=== PATIENT | male | born 1945 | race Caucasian/White ===

== ENCOUNTER → 2020-12-16 08:40 | Outpatient (REF) | payer MEDICARE, OTHER, SELFPAY | LOC: ANHLAB 08:40 | PROVIDERS: PCP Nurse Practitioner Adult Health; Visit Provider Nurse Practitioner | DX: C44.519 Basal cell carcinoma of skin of other part of trunk (principal); D22.5 Melanocytic nevi of trunk | CPT/HCPCS: 88305; 88342 ==

== ENCOUNTER 2022-11-04 10:37 | Emergency (ER) | payer MEDICARE, OTHER, SELFPAY ==
--- NOTE | 2022-11-04 10:41 | ED.URI ---
HPI - URI/Sore Throat General Chief Complaint: Upper Respiratory Infection Stated Complaint: Cough Time Seen by Provider: 11/04/22 10:41 Source: patient Mode of arrival: ambulatory Limitations: no limitations History of Present Illness HPI Narrative: Omar is a 77-year-old male patient presenting to the clinic today with complaints of a cough x6 days. He reports he started is the pack and that did not help so now he is taking a 2nd round of Z-Bertin that he had gotten from his PCP. He also reports that he has never seen his PCP before. States he does have some mild shortness of breath as well. Cough is nonproductive. No history of COPD or asthma. Does have history of hypertension and high cholesterol. He is able to speak in full sentences and his SpO2 is 98% on room air in the clinic today. MD elicited complaint: cough and other (Shortness of breath) Related Data Home Medications Medication Instructions Recorded Confirmed atorvastatin 40 mg tablet 40 mg PO DAILY 10/13/20 11/04/22 losartan 50 mg tablet 50 mg PO DAILY 10/13/20 11/04/22 azithromycin 250 mg tablet 250 mg PO DAILY 11/04/22 11/04/22 benzonatate 200 mg capsule 200 mg PO BID PRN Cough 11/04/22 11/04/22 carvedilol 25 mg tablet 25 mg PO DAILY 11/04/22 11/04/22 Allergies Allergy/AdvReac Type Severity Reaction Status Date / Time No Known Allergies Allergy Verified 11/04/22 10:54 Review of Systems Review of Systems: Pertinent positives per HPI. Patient denies any fever, chills, rash, headache, visual changes, dizziness, chest pain, palpitations, nausea, vomiting, diarrhea, constipation, abdominal pain, or any urinary issues. [facility] Past Medical History Medical History HLD (hyperlipidemia) HTN (hypertension) Obesity OMNIKA (obstructive sleep apnea) Family History Family History Sibling Patient's brother is in good health Father Family history of cardiovascular disease Social History Social History Smoking status: Never smoker Comments At the time of my signature, I reviewed and agree with the nursing past medical, surgical, social, and family history. There is no relevant family history pertinent to the patient complaint. Exam Narrative: General: Well-developed, well nourished, in no apparent distress Head: Normocephalic, atraumatic Eyes: Pupils equally round and reactive to light bilaterally, EOM intact, sclera and conjunctive clear, no discharge, lids normal Ears: TMs intact and clear, ear canals clear, no drainage, grossly hearing normal. Nose: Nares patent, no discharge, no inflammation, no sinus tenderness. Mouth: Oral pharynx without lesions or masses, good dentition, MMM. Neck: Supple, trachea midline, no enlargement of anterior or posterior cervical nodes, no thyroid masses or goiter palpable. Cardio: Regular rate and rhythm, s1 and s2 normal, no murmur appreciated. Resp: Faint expiratory wheeze in the bilateral bases otherwise clear , no rhonchi, rales, or rubs Course Course Emergency Course: Portions of this record may have been created with voice recognition software. Level of Care: Express Care Visit Vital Signs Vital signs: Vital Signs Temperature 36.8 C 11/04/22 10:51 Pulse Rate 70 11/04/22 10:51 Respiratory Rate 18 11/04/22 10:51 Blood Pressure 123/71 11/04/22 10:51 Pulse Oximetry 98 11/04/22 10:51 Oxygen Delivery Room Air 11/04/22 10:51 Temperature 36.8 C 11/04/22 10:51 Pulse Rate 70 11/04/22 10:51 Respiratory Rate 18 11/04/22 10:51 Blood Pressure 123/71 11/04/22 10:51 Pulse Oximetry 98 11/04/22 10:51 Oxygen Delivery Room Air 11/04/22 10:51 Vital signs reviewed MDM - URI/Sore Throat MDM Narrative Medical decision making narrative: At the time of visit patient is resting com
[2022-11-04 10:51] VITALS: BP 123/71; PULSE 70; RESP 18; TEMP 36.8; O2SAT 98
== END 2022-11-04 11:17 | disposition home or self-care (01) ==
PROVIDERS: Emergency Provider Nurse Practitioner Family; PCP Family Medicine
DX: J06.9 Acute upper respiratory infection, unspecified (principal); J40 Bronchitis, not specified as acute or chronic; E78.5 Hyperlipidemia, unspecified; I10 Essential (primary) hypertension; E66.9 Obesity, unspecified; Z68.35 Body mass index [BMI] 35.0-35.9, adult
CPT/HCPCS: 99213; G0463

== ENCOUNTER 2023-08-08 08:55 | Outpatient (CLI) | payer MEDICARE, OTHER, SELFPAY ==
--- NOTE | ~2023-08-08 | XR_ITS ---
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 There are median sternotomy changes. Heart size normal. There are calcified granulomas in the left upper thorax. Moderate thoracic spondylosis. No focal air space disease, pulmonary edema, pleural effusion or suspected pneumothorax. Impression: 1: No acute cardiopulmonary disease. Reviewed, dictated and finalized at location B. Impression: 1: No acute cardiopulmonary disease.
== END 2023-08-08 08:56 | disposition home or self-care (01) ==
PROVIDERS: PCP Family Medicine; Visit Provider Physician Assistant
DX: R05.9 Cough, unspecified (principal); R06.02 Shortness of breath; Z98.890 Other specified postprocedural states
CPT/HCPCS: 71046

== ENCOUNTER 2023-09-27 07:15 | Outpatient (RCR) | payer MEDICARE, OTHER, SELFPAY | END 2023-10-29 08:50 | disposition home or self-care (01) | LOC: ANHCPREHAB 07:15 | PROVIDERS: PCP Family Medicine; Visit Provider Internal Medicine | DX: Z95.2 Presence of prosthetic heart valve (principal) | CPT/HCPCS: 93798 ==

== ENCOUNTER 2023-10-11 10:24 | Outpatient (CLI) | payer MEDICARE, OTHER, SELFPAY ==
[2023-10-11 11:15] LABS: Anion Gap 10 mmol/L (8-16); Blood Urea Nitrogen 14 mg/dL (9-20); Calcium 9.3 mg/dL (8.4-10.2); Carbon Dioxide 24 mmol/L (22-30); Chloride 106 mmol/L (98-107); Estimated Glomerular Filt Rate > 60; Glucose 121 mg/dL (65-110); Potassium 3.8 mmol/L (3.4-5.0); Sodium 140 mmol/L (137-145)
== END 2023-10-11 10:25 | disposition home or self-care (01) ==
PROVIDERS: PCP Family Medicine
DX: I48.91 Unspecified atrial fibrillation (principal)
CPT/HCPCS: 36415; 80048

== ENCOUNTER 2023-10-17 09:22 | Outpatient (CLI) | payer MEDICARE, OTHER, SELFPAY ==
[2023-10-17 09:50] LABS: Basophils Percent Auto 0.2 % (0.2-1.2); Eosinophils Absolute Auto 0.1 K/mm3 (0-0.3); Eosinophils Percent Auto 1.4 % (0-4.4); Hemoglobin 13.3 g/dL (14.0-18.0); Immature Granulocyte Absolute 0.02 K/mm3 (0.00-0.031); Immature Granulocyte Percent A 0.3 % (0-0.5); Lymphocytes Absolute Auto 1.79 K/mm3 (0.9-3.2); Lymphocytes Percent Auto 28.1 % (18.3-44.2); Mean Corpuscular HGB Conc 30.9 g/dl (32-36); Mean Corpuscular Hemoglobin 28.4 pg (26-34); Mean Corpuscular Volume 91.7 fl (80-100); Mean Platelet Volume 9.7 fl (7.4-10.4); Monocytes Absolute Auto 0.5 K/mm3 (0.1-0.6); Monocytes Percent Auto 7.1 % (2.6-8.5); Neutrophils Percent Auto 62.9 % (45.5-73.1); Platelet Count Result 174 k/mm3 (150-375); Red Blood Count 4.69 M/mm3 (4.6-6.20); Red Cell Distribution Width 13.8 % (11.5-14.5); White Blood Count 6.4 K/mm3 (4.5-10.0)
[2023-10-17 10:04] LABS: Prothrombin Time 13.7 Seconds (11.1-14.7)
== END 2023-10-17 09:23 | disposition home or self-care (01) ==
PROVIDERS: PCP Family Medicine; Visit Provider Internal Medicine Interventional Cardiology
DX: I48.91 Unspecified atrial fibrillation (principal)
CPT/HCPCS: 36415; 85025; 85610

== ENCOUNTER 2024-04-08 14:47 | Outpatient (CLI) | payer MEDICARE, OTHER, SELFPAY ==
[2024-04-08 15:14] LABS: Basophils Percent Auto 0.2 % (0.2-1.2); Eosinophils Absolute Auto 0.1 K/mm3 (0-0.3); Eosinophils Percent Auto 0.9 % (0-4.4); Hematocrit 39.4 % (42.0-52.0); Hemoglobin 13.6 g/dL (14.0-18.0); Immature Granulocyte Absolute 0.02 K/mm3 (0.00-0.031); Immature Granulocyte Percent A 0.3 % (0-0.5); Lymphocytes Absolute Auto 1.51 K/mm3 (0.9-3.2); Lymphocytes Percent Auto 25.7 % (18.3-44.2); Mean Corpuscular HGB Conc 34.5 g/dl (32-36); Mean Corpuscular Hemoglobin 32.2 pg (26-34); Mean Corpuscular Volume 93.1 fl (80-100); Mean Platelet Volume 9.7 fl (7.4-10.4); Monocytes Absolute Auto 0.4 K/mm3 (0.1-0.6); Monocytes Percent Auto 6.3 % (2.6-8.5); Neutrophils Absolute Auto 3.9 K/mm3 (1.3-6.7); Neutrophils Percent Auto 66.6 % (45.5-73.1); Platelet Count Result 160 k/mm3 (150-375); Red Blood Count 4.23 M/mm3 (4.6-6.20); Red Cell Distribution Width 13.8 % (11.5-14.5); White Blood Count 5.9 K/mm3 (4.5-10.0)
[2024-04-08 15:16] LABS: Appearance Urine Clear (Clear); Bilirubin Urine Negative (Negative); Blood Urine Negative (Negative); Color Urine Yellow (Yellow); Glucose Urine UA Negative (Negative); Ketones Urine Negative (Negative); Leukocyte Esterase Ur Negative LEU/UL (Negative); Nitrate Urine Negative (Negative); Protein Urine Negative (Negative); pH Urine 5.5 (5.0-9.0)
[2024-04-08 15:24] LABS: Add Urine Microscopic? NO
[2024-04-08 15:40] LABS: Alanine Aminotransferase 22 U/L (6-50); Albumin Level 4.3 g/dL (3.5-5.1); Alkaline Phosphatase 84 U/L (38-126); Anion Gap 8 mmol/L (4-12); Aspartate Amino Transferase 31 U/L (17-59); Bilirubin,Total 0.7 mg/dL (0.2-1.3); Blood Urea Nitrogen 21 mg/dL (9-20); Calcium 8.8 mg/dL (8.4-10.2); Carbon Dioxide 23 mmol/L (22-30); Chloride 109 mmol/L (98-107); Cholesterol 101 mg/dL (0-200); Estimated Glomerular Filt Rate > 60; Glucose 129 mg/dL (65-110); HDL Direct 35 mg/dL; Potassium 3.9 mmol/L (3.4-5.0); Sodium 140 mmol/L (137-145); Triglycerides 224 mg/dL (<150)
[2024-04-08 15:51] LABS: LDL Cholesterol Direct 58 mg/dL
[2024-04-08 16:10] LABS: Prostate Specific Antigen 1.4 ng/mL (< OR = 4.0); Thyroid Stimulating Hormone 0.812 uIU/mL (0.465-4.680)
[2024-04-08 19:34] LABS: Hemoglobin A1C 5.4 % (<5.7)
== END 2024-04-08 14:48 | disposition home or self-care (01) ==
PROVIDERS: PCP Nurse Practitioner Family; Visit Provider Nurse Practitioner Family
DX: Z12.5 Encounter for screening for malignant neoplasm of prostate (principal); G47.33 Obstructive sleep apnea (adult) (pediatric); E78.5 Hyperlipidemia, unspecified; I10 Essential (primary) hypertension; R73.09 Other abnormal glucose
CPT/HCPCS: 36415; 80048; 80061; 80076; 81003; 83036; 84153; 84443; 85025; G0103

== ENCOUNTER 2024-06-11 08:36 | Outpatient (CLI) | payer MEDICARE, OTHER, SELFPAY ==
[2024-06-11 09:37] LABS: Basophils Percent Auto 0.4 % (0.2-1.2); Eosinophils Absolute Auto 0.1 K/mm3 (0-0.3); Hematocrit 39.4 % (42.0-52.0); Hemoglobin 13.6 g/dL (14.0-18.0); Immature Granulocyte Absolute 0.02 K/mm3 (0.00-0.031); Immature Granulocyte Percent A 0.4 % (0-0.5); Lymphocytes Absolute Auto 1.68 K/mm3 (0.9-3.2); Lymphocytes Percent Auto 30.4 % (18.3-44.2); Mean Corpuscular HGB Conc 34.5 g/dl (32-36); Mean Corpuscular Hemoglobin 32.5 pg (26-34); Monocytes Absolute Auto 0.4 K/mm3 (0.1-0.6); Monocytes Percent Auto 7.8 % (2.6-8.5); Neutrophils Absolute Auto 3.3 K/mm3 (1.3-6.7); Platelet Count Result 146 k/mm3 (150-375); Red Blood Count 4.19 M/mm3 (4.6-6.20); Red Cell Distribution Width 13.5 % (11.5-14.5); White Blood Count 5.5 K/mm3 (4.5-10.0)
[2024-06-11 09:44] LABS: Iron 96 ug/dL (49-181)
[2024-06-11 09:53] LABS: Percent Iron Saturation 28 % (20-50)
== END 2024-06-11 08:37 | disposition home or self-care (01) ==
LOC: ANHLAB 08:40
PROVIDERS: PCP Nurse Practitioner Family; Visit Provider Nurse Practitioner Family
DX: D64.9 Anemia, unspecified (principal)
CPT/HCPCS: 36415; 82728; 83540; 83550; 85025

== ENCOUNTER 2024-06-13 18:36 | Emergency (ER) | payer MEDICARE, OTHER, SELFPAY ==
[2024-06-13 18:46] VITALS: BP 153/106; PULSE 62; RESP 15; TEMP 36.3; O2SAT 97
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
[2024-06-13 18:47] VITALS: BP 153/106; PULSE 62; RESP 15; TEMP 36.3; O2SAT 97
[2024-06-13] MEDS: SILVER SULFADIAZINE 1% CR 50 GM JAR (*BKC) 1 APPLIC TOPICAL (18:56)
[2024-06-13] MEDS: TETANUS/DIPHTHERIA TOXOIDS ADSORB 0.5 ML VIAL (*BKC) IM (18:59)
== END 2024-06-13 19:15 | disposition home or self-care (01) ==
PROVIDERS: Emergency Provider Nurse Practitioner Family; PCP Nurse Practitioner Family
DX: T25.211A Burn of second degree of right ankle, initial encounter (principal); X16.XXXA Contact with hot heating appliances, radiators and pipes, initial encounter; Z23 Encounter for immunization; M19.90 Unspecified osteoarthritis, unspecified site; K21.9 Gastro-esophageal reflux disease without esophagitis; E78.5 Hyperlipidemia, unspecified; I10 Essential (primary) hypertension; E66.9 Obesity, unspecified; Z68.32 Body mass index [BMI] 32.0-32.9, adult; Z79.82 Long term (current) use of aspirin
CPT/HCPCS: 90471; 90714; 99213; A9270; G0463

== ENCOUNTER 2024-09-25 16:44 | Emergency (ER) | payer MEDICARE, SELFPAY ==
[2024-09-25] VITALS (8 sets, daily range): BP systolic 103–132; BP diastolic 67–78; PULSE 81–87; RESP 16–35; TEMP 36.8–37.8; O2SAT 94–96
--- NOTE | ~2024-09-25 | CT_ITS ---
EXAMINATION: CTA brain DATE: 09/25/2024 19:36 INDICATION: Cerebral aneurysm. TECHNIQUE: Computed tomographic angiography (CTA) of the head was performed with 100 mL Omnipaque-350 intravenous contrast. Automated exposure control and iterative reconstruction technique were employe d. The dose-length product was 601.83 mGy-cm. Maximum intensity projection 3D reconstructions were c reated. Volume-rendered 3D reconstructions of the intracranial arteries were created by the technolog ist on a separate workstation. COMPARISON: Head CT 09/25/2024 FINDINGS: There are scattered areas of low attenuation in the cerebral white matter, which is within normal limits for the patient's age. There is no intracranial hemorrhage, acute infarction, or abnorm al intracranial mass lesion. The ventricles are normal in size. There is mild mucosal thickening in l eft maxillary sinus. The mastoid air cells are normal. The orbits are normal. Left vertebral artery i s dominant. There is no significant stenosis of basilar artery or the posterior cerebral arteries. Th ere is no significant stenosis of the intracranial internal carotid arteries or anterior or middle ce rebral arteries. Anterior communicating artery is normal. Left posterior communicating artery is norm al. A right posterior communicating artery is not identified. 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 IMPRESSION: 1. 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 Reviewed, dictated and finalized at location A. [employer]
--- NOTE | ~2024-09-25 | CT_ITS ---
EXAMINATION: CT brain wo con DATE: 09/25/2024 18:13 INDICATION: Altered mental status. Confusion. TECHNIQUE: Computed tomography (CT) of the head was performed without intravenous contrast. The mA wa s adjusted according to patient size. Iterative reconstruction technique was employed. The dose-lengt h product was 681.00 mGy-cm. COMPARISON: None FINDINGS: There are scattered areas of low attenuation in the cerebral white matter, which is within normal limits for the patient's age. There is no intracranial hemorrhage, acute infarction, or abnor mal intracranial mass lesion. The ventricles are normal in size. There is a 9 mm aneurysm of left mid dle cerebral artery. There was normal. There is mild mucosal thickening in the paranasal sinuses. The mastoid air cells are normal. IMPRESSION: 1. 9 mm aneurysm of left middle cerebral artery. Head CTA is recommended. Reviewed, dictated and finalized at location A. 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
--- NOTE | ~2024-09-25 | XR_ITS ---
EXAMINATION: XR chest 2V DATE: 09/25/2024 18:16 INDICATION: Cough and fever. Altered mental status. TECHNIQUE: Frontal and lateral views of the chest were obtained. COMPARISON: Chest 2 views 08/08/2023, chest CT 01/16/2017 FINDINGS: There are airspace opacities in right lower lung zone and left mid and lower lung zones. No pleural effusion or pneumothorax. Cardiomegaly is noted. There are changes of aortic valve replaceme nt. IMPRESSION: 1. Airspace opacities in right lower lung zone and left mid and lower lung zones, consistent with ate lectasis versus pneumonia. 2. Cardiomegaly. Reviewed, dictated and finalized at location A. 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 Airspace opacities in right lower lung zone and left mid and lower lung zone s, consistent with atelectasis versus pneumonia. 2. Cardiomegaly.
--- OUTSIDE RECORDS SUMMARY | 2024-09-25 16:45 | XMS_ITS | Data Portability ---
Author Organization [facility], Main Office Address [address] [place] [address] Assessment No assessment recorded. Plan of Treatment Reminders Order Date Submit Date Provider Last Modified By Organization Details Last Modified Time Details Appointments None recorded. Lab rapid flu (A+B) [address], [place], [address], 4 12:51:29 rsv (respirator y syncytial virus), rapid, nasopharyng eal [address] [place], [place], [address], 4 12:53:47 Referral None recorded. Procedures None recorded. Surgeries None recorded. Imaging None recorded. Medication Orders levofloxaci n 750 mg tablet 2023 [facility], [address], [place], [address], 4 12:46:43 promethazin e-DM 6.25 mg-15 mg/5 mL oral syrup 2023 [facility], [address], [place], [address], 4 12:47:13 Patient TargetsNo targets recorded. Patient Instructions Encounter Date Encounter Id Patient Instructions Last Modified By Organization Details Last Modified Time 02/05/2024 [id number] advised getting a Covid test [id number] Not available 02/13/2024 10:25:12 Reason for Referral None Reported. Results Created Date Observation Date Name Description Value Unit Range Abnormal Flag Note LastModifiedBy Organization Detail LastModifiedTime 01/25/20 21 01/24/2021 PSA, total , serum or plasm a PSA, total 1.05 NG/mL 0.00-4 .00 Not Available [facility] (Lab) [address] [place], [address], 01/24/2021 13:57:38 01/25/20 21 01/24/2021 hepat ic funct ion panel , serum alkaline phosphatase 61 U/L 38-126 Not Available [facility] (Lab) [address] [place], [address], 01/24/2021 13:27:48 01/25/20 21 01/24/2021 hepat ic funct ion panel , serum alanine aminotransfe rase 20 U/L 0-50 Not Available [facility] (Lab) [address] [place], [address], 01/24/2021 13:27:48 01/25/20 21 01/24/2021 hepat ic funct ion panel , serum aspartate aminotransfe rase 30 U/L 15-46 Not Available [facility] (Lab) [address] [place], [address], 01/24/2021 13:27:48 01/25/20 21 01/24/2021 hepat ic funct ion panel , serum bilirubin, total 1.00 mg/dL 0.20-1 .30 Not Available [facility] (Lab) [address] [place], [address], 01/24/2021 13:27:48 01/25/20 21 01/24/2021 hepat ic funct ion panel , serum bilirubin, conjugated (direct) 0.00 mg/dL 0.00-0 .30 Not Available [facility] (Lab) [address] [place], [address], 01/24/2021 13:27:48 01/25/20 21 01/24/2021 hepat ic funct ion panel , serum biliurubin,u ncong. (indirect) 0.80 mg/dL 0.00-1 .1 Not Available [facility] (Lab) [address] [place], [address], 01/24/2021 13:27:48 01/25/20 21 01/24/2021 hepat ic funct ion panel , serum total protein 6.8 g/dL 6.3-8. 2 Not Available [facility] (Lab) [address] [place], [address], 01/24/2021 13:27:48 01/25/20 21 01/24/2021 hepat ic funct ion panel , serum albumin 4.2 g/dL 3.0-4. 4 Not Available [facility] (Lab) [address] [place], [address], 01/24/2021 13:27:48 01/25/20 21 01/24/2021 hepat ic funct ion panel , serum globulin 2.6 g/dL 2.6-4. 2 Not Available [facility] (Lab) [address] [place], [address], 01/24/2021 13:27:48 01/25/20 21 01/24/2021 hepat ic funct ion panel , serum A/G ratio 1.6 ratio 1.0-2. 0 Not Available [facility] (Lab) [address] [place], [address], 01/24/2021 13:27:48 01/25/20 21 01/24/2021 BMP, serum or plasm a sodium 138 mmol/ L 137-14 5 Not Available [facility] (Lab) [address] [place], [address], 01/24/2021 13:27:44 01/25/20 21 01/24/2021 BMP, serum or plasm a potassium 4.6 mmol/ L 3.5-5. 1 Not Available [facility] (Lab) [address] [place], [address], 01/24/2021 13:27:44 01/25/20 21 01/24/2021 BMP, serum or plasm a chloride 105 mmol/ L 98-107 Not Available [facility] (Lab) [address] [place], [address], 01/24/2021 13:27:44 01/25/20 21 01/24/2021 BMP, serum or plasm a carbon dioxide 26 mmol/ L 22-30 Not Available [facility] (Lab) [address] [place], [address], 01/24/2021 13:27:44 01/25/20 21 01/24/2021 BMP, serum or plasm a agap 11.6 mmol/ L 14-22 low Not Available [facility] (Lab) [address] [place], [address], 01/24/2021 13:27:44 01/25/20 21 01/24/2021 BMP, serum or plasm a glucose 87 mg/dL 70-99 Not Available [facility] (Lab) [address] [place], [address], 01/24/2021 13:27:44 01/25/20 21 01/24/2021 BMP, serum or plasm a BUN 19 mg/dL 8-19 Not Available [facility] (Lab) [address] [place], [address], 01/24/2021 13:27:44 01/25/20 21 01/24/2021 BMP, serum or plasm a creatinine 0.90 mg/dL 0.66-1 .25 Not Available [facility] (Lab) [address] [place], [address], 01/24/2021 13:27:44 01/25/20 21 01/24/2021 BMP, serum or plasm a GFR >60 Refer ence Range : Helix ge GFR Healt hy Adult : >60 mL/mi n/1.7 3 m2 Chron ic Kidne y Disea se: 15-60 mL/mi n/1.7 3 m2 Kidne y Failu re: <15/m L/min /1.73 m2 www.n iddk. nih.g ov MDRD study equat ion hasn' t been valid ated in child farhan <18 yrs of age, pregn ant women , the elder ly >85 yrs of age, or in some racia l or ethni c subgr oups, suc as Hispa nics. Outsi de the valid ated rubio eters , estim ated GFR is less accur ate requi ring clini darlene judgm ent on a case by case basis . Clini darlene inter preta tion for other races and ages must be made by the clini yumiko . Futhe rmore , any of th e limit ation s with the use of serum creat inine relat ed to nutri benigno l statu s o r medic ation usage hasn' t accou nted for the MDRD Study equat ion. For perso ns < 18 yrs of age, a pedia tric GFR calcu lator can be locat ed on the [facility] websi te: https ://tessy w.gage mireles.o rg/pr ofess ional s/kdo qi/gf r_cal culat or Not Available [facility] (Lab) [address] [place], [address], 01/24/2021 13:27:44 01/25/20 21 01/24/2021 BMP, serum or plasm a calcium 9.4 mg/dL 8.4-10 .2 Not Available [facility] (Lab) [address] [place], [address], 01/24/2021 13:27:44 01/25/20 21 01/24/2021 lipid panel , serum cholesterol 111 mg/dL 140-19 9 low NIH ELIAZAR NSUS RECOM MENDA TION FOR JUAN STERO L: ADULT CHILD LOW RISK: <200 <170 BORDE RLINE : <200- 239 ----- HIGH RISK: >240 >200 Not Available [facility] (Lab) [address] [place], [address], 01/24/2021 13:27:39 01/25/20 21 01/24/2021 lipid panel , serum triglyceride s 99 mg/dL 0-150 NIH ELIAZAR NSUS REPOR T RECOM MENDA TION FOR TRIGL YCERI KATHERIN: ADULT CHILD LOW RISK: <150 ----- BODER LINE: 150-1 99 ----- HIGH RISK: >200 ----- Not Available [facility] (Lab) [address] [place], [address], 01/24/2021 13:27:39 01/25/2001/24/2021 lipid panel , serum HDL cholesterol 37 mg/dL 40- low Not Available [facility] (Lab) [address] [place], [address], 01/24/2021 13:27:39 01/25/2001/24/2021 lipid panel , serum LDL cholesterol, calculated 54 mg/dL 0-130 NIH ELIAZAR NSUS REPOR T RECOM MENDA TIONS FOR LDL: ADULT CHILD LOW RISK <130 <110 (OPTI MAL LDL) <100 ----- BORDE RLINE : 130-1 59 ----- HIGH RISK: >160 >130 A TRIGL YCERI DE RESUL T >400 INVAL IDATE S THE CALCU LATIO N FOR LDL FRACT IONAT ION - THE LDL RESUL T WILL NOT BE REPOR LAUREEN. Not Available [facility] (Lab) [address] [place], [address], 01/24/2021 13:27:39 01/25/20 21 01/24/2021 urina lysis , dipst ick Leukocytes (reference range: negative ann/??l) Negati ve Not Available [id number] [address] , [address], [place], [address], 01/24/2021 09:53:16 01/25/20 21 01/24/2021 urina lysis , dipst ick Nitrite (reference rage: negative mg/dl) negati ve Not Available [address] , [address], [place], [address], 01/24/2021 09:53:16 01/25/20 21 01/24/2021 urina lysis , dipst ick Urobilinogen (reference range: 0.2-1 mg/dl) 0.2 Not Available [address] , [address], [place], [address], 01/24/2021 09:53:16 01/25/20 21 01/24/2021 urina lysis , dipst ick Protein (reference range: negative mg/dl) Negati ve Not Available [address] , [address], [place], [address], 01/24/2021 09:53:16 01/25/2001/24/2021 urina lysis , dipst ick pH (reference range: 5-7) 6.0 Not Available [address] , [address], [place], [address], 01/24/2021 09:53:16 01/25/2001/24/2021 urina lysis , dipst ick Blood (reference range: negative Nimesh/??l) Non-He molyze d: Trace Not Available [address] , [address], [place], [address], 01/24/2021 09:53:16 01/25/20 21 01/24/2021 urina lysis , dipst ick Specific [place] (reference range: 1.005-1.030) 1.025 Not Available [address] , [address], [place], [address], 01/24/2021 09:53:16 01/25/20 21 01/24/2021 urina lysis , dipst ick Ketone (reference range: negative mg/dl) Negati ve Not Available [address] , [address], [place], [address], 01/24/2021 09:53:16 01/25/2001/24/2021 urina lysis , dipst ick Bilirubin (reference range: negative mg/dl) Negati ve Not Available [address] , [address], [place], [address], 01/24/2021 09:53:16 01/25/2001/24/2021 urina lysis , dipst ick Glucose (reference range: negative mg/dl) Negati ve Not Available [address] , [address], [place], [address], 01/24/2021 09:53:16 01/25/2001/24/2021 urina lysis , dipst ick Appearance Clear Not Available [address] , [address], [place], [address], 01/24/2021 09:53:16 01/25/2001/24/2021 urina lysis , dipst ick Color Yellow Not Available [address] , [address], [place], [address], 01/24/2021 09:53:16 07/17/2007/17/2022 PSA, TOTAL PSA, total 1.23 NG/mL 0.00-4 .00 Not Available [facility] (Lab) [address] [place], [address], 07/17/2022 13:49:45 07/17/20 22 07/17/2022 HEPAT IC/LI SHANNON PANEL alkaline phosphatase 60 U/L 38-126 Not Available [facility] (Lab) [address] [place], [address], 07/17/2022 13:11:13 07/17/2007/17/2022 HEPAT IC/LI SHANNON PANEL alanine aminotransfe rase 18 U/L 0-50 Not Available [facility] (Lab) [address] [place], [address], 07/17/2022 13:11:13 07/17/2007/17/2022 HEPAT IC/LI SHANNON PANEL aspartate aminotransfe rase 25 U/L 15-46 Not Available [facility] (Lab) [address] [place], [address], 07/17/2022 13:11:13 07/17/20 22 07/17/2022 HEPAT IC/LI SHANNON PANEL bilirubin, total 1.10 mg/dL 0.20-1 .30 Not Available [facility] (Lab) [address] [place], [address], 07/17/2022 13:11:13 07/17/20 22 07/17/2022 HEPAT IC/LI SHANNON PANEL bilirubin, conjugated (direct) 0.00 mg/dL 0.00-0 .30 Not Available [facility] (Lab) [address] [place], [address], 07/17/2022 13:11:13 07/17/20 22 07/17/2022 HEPAT IC/LI SHANNON PANEL biliurubin,u ncong. (indirect) 1.00 mg/dL 0.00-1 .1 Not Available [facility] (Lab) [address] [place], [address], 07/17/2022 13:11:13 07/17/20 22 07/17/2022 HEPAT IC/LI SHANNON PANEL total protein 7.1 g/dL 6.3-8. 2 Not Available [facility] (Lab) [address] [place], [address], 07/17/2022 13:11:13 07/17/20 22 07/17/2022 HEPAT IC/LI SHANNON PANEL albumin 4.3 g/dL 3.0-4. 4 Not Available [facility] (Lab) [address] [place], [address], 07/17/2022 13:11:13 07/17/2007/17/2022 HEPAT IC/LI SHANNON PANEL globulin 2.8 g/dL 2.6-4. 2 Not Available [facility] (Lab) [address] [place], [address], 07/17/2022 13:11:13 07/17/2007/17/2022 HEPAT IC/LI SHANNON PANEL A/G ratio 1.5 ratio 1.0-2. 0 Not Available [facility] (Lab) [address] [place], [address], 07/17/2022 13:11:13 07/17/20 22 07/17/2022 LIPID PANEL cholesterol 107 mg/dL 140-19 9 low NIH ELIAZAR NSUS RECOM MENDA TION FOR JUAN STERO L: ADULT CHILD LOW RISK: <200 <170 BORDE RLINE : <200- 239 ----- HIGH RISK: >240 >200 Not Available [facility] (Lab) [address] [place], [address], 07/17/2022 13:11:08 07/17/20 22 07/17/2022 LIPID PANEL triglyceride s 119 mg/dL 0-150 NIH ELIAZAR NSUS REPOR T RECOM MENDA TION FOR TRIGL YCERI KATHERIN: ADULT CHILD LOW RISK: <150 ----- BODER LINE: 150-1 99 ----- HIGH RISK: >200 ----- Not Available [facility] (Lab) [address] [place], [address], 07/17/2022 13:11:08 07/17/2007/17/2022 LIPID PANEL HDL cholesterol 37 mg/dL 40- low Not Available [facility] (Lab) [address] [place], [address], 07/17/2022 13:11:08 07/17/2007/17/2022 LIPID PANEL LDL cholesterol, calculated 46 mg/dL 0-130 NIH ELIAZAR NSUS REPOR T RECOM MENDA TIONS FOR LDL: ADULT CHILD LOW RISK <130 <110 (OPTI MAL LDL) <100 ----- BORDE RLINE : 130-1 59 ----- HIGH RISK: >160 >130 A TRIGL YCERI DE RESUL T >400 INVAL IDATE S THE CALCU LATIO N FOR LDL FRACT IONAT ION - THE LDL RESUL T WILL NOT BE REPOR LAUREEN. Not Available [facility] (Lab) [address] [place], [address], 07/17/2022 13:11:08 07/17/20 22 07/17/2022 BASIC METAB OLIC PANEL sodium 139 mmol/ L 137-14 5 Not Available [facility] (Lab) [address] [place], [address], 07/17/2022 13:11:04 07/17/20 22 07/17/2022 BASIC METAB OLIC PANEL potassium 4.4 mmol/ L 3.5-5. 1 Not Available [facility] (Lab) [address] [place], [address], 07/17/2022 13:11:04 07/17/20 22 07/17/2022 BASIC METAB OLIC PANEL chloride 104 mmol/ L 98-107 Not Available [facility] (Lab) [address] [place], [address], 07/17/2022 13:11:04 07/17/20 22 07/17/2022 BASIC METAB OLIC PANEL carbon dioxide 27 mmol/ L 22-30 Not Available [facility] (Lab) [address] [place], [address], 07/17/2022 13:11:04 07/17/2007/17/2022 BASIC METAB OLIC PANEL anion gap 12.4 mmol/ L 14-22 low Not Available [facility] (Lab) [address] [place], [address], 07/17/2022 13:11:04 07/17/20 22 07/17/2022 BASIC METAB OLIC PANEL glucose 99 mg/dL 70-99 Not Available [facility] (Lab) [address] [place] [address], [address], 07/17/2022 13:11:04 07/17/20 22 07/17/2022 BASIC METAB OLIC PANEL BUN 17 mg/dL 8-19 Not Available [facility] (Lab) [address] [place] [address], [address], 07/17/2022 13:11:04 07/17/20 22 07/17/2022 BASIC METAB OLIC PANEL creatinine 1.00 mg/dL 0.66-1 .25 Not Available [facility] (Lab) [address] [place], [address], 07/17/2022 13:11:04 07/17/2007/17/2022 BASIC METAB OLIC PANEL GFR >60 Refer ence Range : Helix ge GFR Healt hy Adult : >60 mL/mi n/1.7 3 m2 Chron ic Kidne y Disea se: 15-60 mL/mi n/1.7 3 m2 Kidne y Failu re: <15/m L/min /1.73 m2 www.n iddk. nih.g ov The MDRD study equat ion has not been valid ated in child farhan <18 years of age; pregn ant women ; the elder ly >85 years of age; or in some racia l or ethni c subgr oups, such as Hispa nics. Outsi de the valid ated rubio eters , estim ated GFR is less accur ate, requi ring clini darlene judgm ent on a case- by-ca se basis . Clini darlene inter preta tion for other races and ages must be made by the clini yumiko. The MDRD study equat ion has not been valid ated for the evalu ation of serum creat inine relat ed to nutri benigno l statu s or medic ation usage . For perso ns <18 years of age, a pedia tric GFR calcu lator is avail able on the [facility] websi te: https ://tessy w.gage mireles.o rg/pr ofess ional s/kdo qi/gf r_cal culat or Not Available [facility] (Lab) [address] [place], [address], 07/17/2022 13:11:04 07/17/2007/17/2022 BASIC METAB OLIC PANEL calcium 9.4 mg/dL 8.4-10 .2 Not Available [facility] (Lab) [address] [place], [address], 07/17/2022 13:11:04 02/05/20 24 02/05/2024 rsv (resp irato ry syncy tial virus ), rapid , nasop haryn geal RSV negati ve Not Available [address] [place], [place], [address], 02/05/2024 12:30:01 02/05/20 24 02/05/2024 rapid flu (A+B) Flu A negati ve Not Available [address] [place], [place], [address], 02/05/2024 12:29:41 02/05/20 24 02/05/2024 rapid flu (A+B) Flu B negati ve Not Available [facility] [address] [place], [place], [address], 02/05/2024 12:29:41 08/08/20 23 08/08/2023 XR, chest , 2 view No observ ation record ed. [email or web address] [place] [address] [address], [place], [address], 08/09/2023 10:19:27 Result Notes None recorded. Problems Name Problem SNOMED Code Status Onset Date Resolution Date Notes Provider Name and Address Organization Details Recorded Time Atypical chest pain 378572726 Completed Not Available [facility] 3 05:54:33 Disorder of shoulder 795817226 Active Not Available [facility] 3 21:27:55 Backache 334440135 Completed Not Available [facility] 3 05:54:33 Radiothera py follow-up 063712134 Active Not Available [facility] 3 21:27:55 Localized, primary osteoarthr itis 394090677 Active Not Available [facility] 3 21:27:55 Partial thickness rotator cuff tear 936408900 Active Not Available [facility] 3 21:27:55 Full thickness rotator cuff tear 726071836 Active Not Available [facility] 3 21:27:55 Asbestos-i nduced pleural plaque 994721199 Active Not Available [facility] 3 21:27:55 Basal cell carcinoma of skin 152568087 Active 2018 Not Available [facility] 3 21:27:55 Shoulder joint pain 972784342 Active Not Available [facility] 3 21:27:55 Respirator y tract infection 828515355 Completed Not Available [facility] 3 05:54:34 Sinusitis 30440302 Completed Not Available [facility] 3 05:54:34 Night sweats 96007223 Completed Not Available [facility] 3 05:54:34 Tibialis tendinitis 40970391 Active Not Available [facility] 3 21:27:55 Upper respirator y infection 24168444 Completed Not Available [facility] 3 05:54:34 Acute upper respirator y infection 31702182 Completed Not Available [facility] 3 05:54:34 Disorder of bursa of shoulder region 84545119 Active Not Available [facility] 3 21:27:55 Aortic aneurysm 03566640 Active Not Available [facility] 3 21:27:55 Obstructiv e sleep apnea syndrome 44551098 Active Not Available [facility] 3 21:27:55 Cough 91342571 Active 2022 Radha Lozada MD [address], [address], [place], [address] , [facility] 3 12:15:01 Gastroesop hageal reflux disease 674698699 Active 2022 CARLY Escamilla [address], [address], [place], [address] , [facility] 3 11:00:58 Notes:Some problems listed i n Document: #[id number] could not be added to this patient's chart. Please review this document and add these problems to the patient's chart manually as needed. Problem Notes None recorded. Procedures Surgical History Date Name Laterality Status Provider Name and Address Organization Details Recorded Time repair of shoulder completed Not Available [facility] 12/13/2022 05:52:00 Imaging Results Imaging Date Name Status LastModified by Organiz ation Details LastModified Time 08/08/2023 XR, chest, 2 view completed [address] [place] [address] [place] [address], [address], 08/09/2023 10:19:27 Procedure Notes None recorded. Medical Equipment None Reported. Allergies No known drug allergies Medications Name Sig Start Date Stop Date Status Note LastModified by Organization Details LastModified Time losartan 50 mg tablet TAKE 1 TABLET BY MOUTH ONCE DAILY 02/04 completed Not Available Not Available Not Available nifedipin e ER 30 mg tablet,ex tended release 24 hr active Not Available Not Available Not Available cyclobenz aprine 10 mg tablet TK 1 T PO TID PRF MUSCLE SPASM 12/03 completed Not Available Not Available Not Available atorvasta tin 40 mg tablet TAKE 1 TABLET BY MOUTH ONCE DAILY active Not Available Not Available No t Available promethaz ine-DM 6.25 mg-15 mg/5 mL oral syrup Take 5 mL every 4 hours by oral route as needed for 10 days. 2023 active Not Available Not Available Not Avai lable carvedilo l 25 mg tablet TAKE 1 TABLET BY MOUTH TWICE DAILY WITH MEALS active Not Available Not Available No t Available potassium chloride ER 10 mEq capsule,e xtended release TAKE 1 CAPSULE BY MOUTH ONCE DAILY FOR 7 DAYS 02/04 completed Not Available Not Available Not Available atorvasta tin 20 mg tablet 09/22 completed Not Available Not Available Not Available atorvasta tin 10 mg tablet 09/18 completed Not Available Not Available Not Available azithromy daniel 250 mg tablet TAKE 2 TABLETS BY MOUTH ON DAY 1, AND THEN TAKE 1 TABLET BY MOUTH ONCE A DAY ON DAY 2 THROUGH DAY 5 02/04 completed Not Available Not Available Not Available ibuprofen 800 mg tablet Take 1 tablet 3 times a day by oral route with meals for 15 days. active Not Available Not Available No t Available benzonata te 200 mg capsule TAKE 1 CAPSULE BY MOUTH THREE TIMES DAILY NEEDED 02/04 completed Not Available Not Available Not Available metoprolo l succinate ER 50 mg tablet,ex tended release 24 hr TAKE 1 TABLET BY MOUTH ONCE DAILY 02/04 completed Not Available Not Available Not Available cephalexi n 250 mg capsule 12/03 completed Not Available Not Available Not Available hydrocodo ne 5 mg-acetam inophen 325 mg tablet TAKE 1 TABLET BY MOUTH EVERY 4 HOURS NEEDED FOR PAIN active Not Available Not Available No t Available prednison e 20 mg tablet TAKE 1 TABLET BY MOUTH TWICE DAILY FOR 5 DAYS 02/04 completed Not Available Not Available Not Available Tubersol 5 tub. unit/0.1 mL intraderm al injection solution active READ NEGATIVE 05/14/14 Not Available Not Available Not Available metoprolo l succinate ER 100 mg tablet,ex tended release 24 hr TAKE 1 TABLET BY MOUTH ONCE DAILY active Not Available Not Available No t Available promethaz ine 6.25 mg-codein e 10 mg/5 mL syrup TK ONE TO TWO TEASPOON FULS PO Q SIX H PRF COUGH active Not Available Not Available No t Available clopidogr el 75 mg tablet TAKE 1 TABLET BY MOUTH ONCE DAILY active Not Available Not Available No t Available aspirin 81 mg tablet,de layed release TAKE 1 TABLET BY MOUTH ONCE DAILY active Not Available Not Available No t Available tramadol 50 mg tablet active Not Available Not Available Not Available hydrocodo ne 7.5 mg-acetam inophen 325 mg tablet 09/18 completed Not Available Not Available Not Available pantopraz ole 40 mg tablet,de layed release TAKE 1 TABLET BY MOUTH TWICE DAILY BEFORE MEAL(S) active Not Available Not Available No t Available losartan 25 mg tablet TAKE 1 TABLET BY MOUTH ONCE DAILY 02/04 completed Not Available Not Available Not Available furosemid e 20 mg tablet TAKE 1 TABLET BY MOUTH ONCE DAILY FOR 7 DAYS active Not Available Not Available No t Available metoprolo l succinate ER 25 mg tablet,ex tended release 24 hr TAKE 1 TABLET BY MOUTH ONCE DAILY 02/04 completed Not Available Not Available Not Available levofloxa daniel 750 mg tablet Take 1 tablet every day by oral route in the morning for 10 days. active Not Available Not Available No t Available albuterol sulfate HFA 90 mcg/actua tion aerosol inhaler INHALE 2 PUFFS BY MOUTH EVERY 4 TO 6 HOURS NEEDED FOR SHORTNES S OF BREATH FOR WHEEZING active Not Available Not Available No t Available losartan 100 mg tablet TAKE 1 TABLET BY MOUTH ONCE DAILY active Not Available Not Available No t Available fluticaso ne propionat e 50 mcg/actua tion nasal spray,yelitza pension 2 sprays in each NS daily active Not Available Not Available No t Available Crestor 20 mg tablet active Not Available Not Available Not Available metoprolo l tartrate 25 mg tablet TAKE 1 TABLET BY MOUTH TWICE DAILY active Not Available Not Available No t Available Zostavax (PF) 19,400 unit/0.65 mL subcutane ous suspensio n active Not Available Not Available Not Available Shingrix (PF) 50 mcg/0.5 mL intramusc ular suspensio n, kit 01/24 completed Not Available Not Available Not Available Fluad 65yr up(PF)45 mcg(15 mcgx3)/0. 5 mL intramusc ular syringe PHARMACI ST ADMINIST ERED IMMUNIZA TION ADMINIST ERED AT TIME OF DISPENSI NG 01/24 completed Not Available Not Available Not Available [employer] Quad [id number] (65yr up)(PF) 60 mcg (15 mcg x 4)/0.5mL IM syringe PHARMACI ST ADMINIST ERED IMMUNIZA TION ADMINIST ERED AT TIME OF DISPENSI NG 01/24 completed Not Available Not Available Not Available Vitals Date Recorded Body mass index (BMI) Body height Oxygen saturation Oxygen saturation in Arterial blood by Pulse oximetry Heart rate Body temperature Body weight Systolic blood pressure Diastolic blood pressure Provider Name and Address Organization Details Last Updated DateTime 3 35.7 kg/m2 175.26 cm 95 % 95 % 77 /min 97.2 [degF] 619265. 35 g 130 mm[Hg] 80 mm[Hg] Not Available [facility] 3 05:52:45 Date Recorded Oxygen saturation Oxygen saturation in Arterial blood by Pulse oximetry Heart rate Body temperature Body weight Systolic blood pressure Diastolic blood pressure Provider Name and Address Organization Details Last Updated DateTime 1 98 % 98 % 90 /min 97.7 [degF] 301767. 95 g 132 mm[Hg] 84 mm[Hg] Not Available [facility] 3 05:52:45 Date Recorded Body weight Body mass index (BMI) Body height Body temperature Respiratory rate Oxygen saturation Oxygen saturation in Arterial blood by Pulse oximetry Heart rate Systolic blood pressure Diastolic blood pressure Provider Name and Address Organization Details Last Updated DateTime 4 897473. 35 g 32.8 kg/m2 182.88 cm 98 [degF] 16 /min 96 % 96 % 81 /min 122 mm[Hg] 82 mm[Hg] Tammie Kaur RN [place] [employer] 4 12:22:44 Social History Question Answer Notes LastModified by Organizat ion Details LastModified Time Tobacco Smoking Status Never Smoker Not Available [facility] 12/13/2022 05:51:48 Do You Have An Advance Directive? Yes [id number] Information not available 12/13/2022 What Is Your Level Of Alcohol Consumption? Occasional [id number] Information not available 12/13/2022 Are You Blind Or Do You Have Difficulty Seeing? No [id number] Information not available 12/13/2022 What Is Your Level Of Caffeine Consumption? Moderate [id number] Information not available 12/13/2022 In The 14 Days Before Symptom Onset, Have You Had Close Contact With A Laboratory-confirm ed COVID-19 While That Case Was Ill? No [id number] Information not available 12/13/2022 In The 14 Days Before Symptom Onset, Have You Had Close Contact With A Person Who Is Under Investigation For COVID-19 While That Person Was Ill? No [id number] Information not available 12/13/2022 Are You Deaf Or Do You Have Serious Difficulty Hearing? Yes [id number] Information not available 12/13/2022 Which Illicit Or Recreational Drugs Have You Used? 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 No [id number] Information not available 12/13/2022 Do you have difficulty doing errands alone? No [id number] Information not available 12/13/2022 Do you have difficulty dressing or bathing? No [id number] Information not available 12/13/2022 What is your exercise level? Moderate [id number] Information not available 12/13/2022 Mental Status Question Answer Note LastModified by Organizat ion Details LastModified Time Do you have difficulty concentrating, remembering or making decisions? No [id number] Information not available 12/13/2022 Family History Relationship Description Onset Age of this Age Resolved Age Notes LastModified by Organization Details LastModified Time Father Myocardial infarction [id number] Not available 12/13/2022 05:52:02 Medical History Condition Response ARTHRITIS Y HEADACHES/MIGRAINES Y ANXIETY DISORDER Y Immunizations Vaccine Type Date Status Note Provider Nam e and Address Organization Details Recorded Time Influenza, split virus, trivalent, preservative 5 completed Not Available [facility] 02/21/2023 21:27:56 Pneumococcal conjugate PCV 13 5 completed Not Available [facility] 02/21/2023 21:27:56 Influenza, split virus, quadrivalent, preservative 2 completed Not Available [facility] 02/21/2023 21:27:55 COVID-19, mRNA, LNP-S, PF, 30 mcg/0.3 mL dose 2 completed Not Available [facility] 02/21/2023 21:27:56 COVID-19, mRNA, LNP-S, PF, 100 mcg/0.5mL dose or 50 mcg/0.25mL dose 1 completed Not Available [facility] 02/21/2023 21:27:56 Influenza, split virus, quadrivalent, preservative 1 completed Not Available [facility] 02/21/2023 21:27:55 Influenza, split virus, quadrivalent, preservative 0 completed Not Available [facility] 02/21/2023 21:27:55 Influenza, split virus, quadrivalent, preservative 9 completed Not Available [facility] 02/21/2023 21:27:55 Influenza, split virus, quadrivalent, preservative 8 completed Not Available [facility] 02/21/2023 21:27:55 Influenza, split virus, quadrivalent, preservative 7 completed Not Available [facility] 02/21/2023 21:27:55 Influenza, high-dose, trivalent, PF 6 completed Not Available [facility] 02/21/2023 21:27:56 TST, unspecified formulation 4 completed Not Available [facility] 02/21/2023 21:27:56 Influenza, split virus, trivalent, preservative 3 completed Not Available [facility] 02/21/2023 21:27:56 zoster live 3 completed Not Available [facility] 02/21/2023 21:27:56 pneumococcal polysaccharide PPV23 2 completed Not Available [facility] 02/21/2023 21:27:56 Td (adult) 9 completed Not Available [facility] 02/21/2023 21:27:56 Past Encounters Encounter ID Performer Location Encounter Start Date Encounter Closed Date Diagnosis/Indication Diagnosis SNOMED-CT Code Diagnosis ICD10 Code [id number] [facility] [place] [address] [facility] [place] [address] [address] 01/24/2021 00:00:00 01/24/2021 10:12:08 [id number] [facility] [place] [facility] [address] [place] [address] 02/15/2021 00:00:00 08/10/2021 16:57:21 [id number] [facility] [place] [facility] [place] [address] [address] 12/11/2022 00:00:00 12/11/2022 20:33:32 [id number] CARLY Escamilla [facility] [place] [address] [facility] [place] [address] 02/05/2024 12:00:46 02/05/2024 12:53:15 Cough 44250179 R05.9 Aortic aneurysm 70422382 I71.9 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 Health Concerns Section Related Observation LastModified by Organization Detai ls LastModified Time None Recorded Concern Status LastModified by Organization Details LastModified Time None Recorded Advance Directives Directive Y: Payers Encounter Date Sequence Insurance Name Policy Number Policy Francois Covered Member ID Francois Member ID Guarantor Name 02/05/2024 1 [place] Omar L Hemann [id number] Omar L Hemann 02/05/2024 2 [employer] (MEDICARE SUPPLEMENT) Omar L Hemann [id number] Omar L Hemann Notes Date Note Type Note Provider Name and Address Organization Details Recorded Time 02/05/2024 text/html cough , no fever CARLY Escamilla [address], [place], [address], [place] [facility] 02/13/2024 10:26:19
--- NOTE | 2024-09-25 17:00 | ECG_ITS ---
Test Date: 2024-09-25 17:03:34 Measurements Intervals [place] Rate: 80 P: -29 CO: 114 QRS: -56 QRSD: 103 T: 92 QT: 354 QTc: 411 Interpretive Statements SINUS RHYTHM WITH SHORT CO INTERVAL alternating with junctional rhythm LEFT ANTERIOR FASCICULAR BLOCK [QRS AXIS <= -45, QR IN I, RS IN II] NONSPECIFIC ST & T-WAVE ABNORMALITY No previous ECG available for comparison Electronically Signed On 09-26-2024 18:32:15 BOTTLE TESTER by Magalis Cervantes M.D.
[2024-09-25 17:16] LABS: Basophils Percent Auto 0.2 % (0.2-1.2); Hematocrit 39.3 % (42.0-52.0); Hemoglobin 13.8 g/dL (14.0-18.0); Immature Granulocyte Absolute 0.03 K/mm3 (0.00-0.031); Immature Granulocyte Percent A 0.2 % (0-0.5); Lymphocytes Absolute Auto 0.85 K/mm3 (0.9-3.2); Lymphocytes Percent Auto 6.8 % (18.3-44.2); Mean Corpuscular HGB Conc 35.1 g/dl (32-36); Mean Corpuscular Hemoglobin 32.6 pg (26-34); Mean Corpuscular Volume 92.9 fl (80-100); Mean Platelet Volume 9.4 fl (7.4-10.4); Monocytes Absolute Auto 0.8 K/mm3 (0.1-0.6); Neutrophils Absolute Auto 10.9 K/mm3 (1.3-6.7); Neutrophils Percent Auto 86.8 % (45.5-73.1); Platelet Count Result 141 k/mm3 (150-375); Red Blood Count 4.23 M/mm3 (4.6-6.20); Red Cell Distribution Width 13.2 % (11.5-14.5); White Blood Count 12.6 K/mm3 (4.5-10.0)
[2024-09-25 17:26] LABS: Alanine Aminotransferase 20 U/L (6-50); Albumin Level 4.3 g/dL (3.5-5.1); Alkaline Phosphatase 79 U/L (38-126); Anion Gap 7 mmol/L (4-12); Aspartate Amino Transferase 29 U/L (17-59); Bilirubin,Total 1.7 mg/dL (0.2-1.3); Blood Urea Nitrogen 17 mg/dL (9-20); Calcium 8.9 mg/dL (8.4-10.2); Carbon Dioxide 25 mmol/L (22-30); Chloride 102 mmol/L (98-107); Estimated CRCL calculation 68 ml/min; Estimated Glomerular Filt Rate > 60; Glucose 117 mg/dL (65-110); Potassium 3.8 mmol/L (3.4-5.0); Sodium 134 mmol/L (137-145)
--- NOTE | 2024-09-25 17:32 | ED.WEAKNESS ---
HPI - Weakness General Chief complaint: Weakness Stated complaint: lethargic, weak, back pain Time Seen by Provider: 09/25/24 17:02 Source: patient and family History of Present Illness HPI Narrative: Patient presents with report of generalized weakness and increased lethargy as well as back pain. He has had a productive cough and fever x1 week. Family stated they were worried about his gait as it semed a bit unsteady given how weak he was. Had a headache on the 10th and 11h but not on the 12th. Denies any unilateral weakness or sensory issues. He had been incontinent of urine which is unusual but he stated I don't care at the time. He denies any CP currently but states he did have some a little earlier. 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 Multiiple family members have been sick with pneumonia that required antibiotic treatment. He has been taking Tylenol occasionally but denies taking it excessively. No rash . Related Data Home Medications ?Medication ?Instructions ?Recorded ?Confirmed ?Last Taken ?Type atorvastatin 40 mg tablet 40 mg PO DAILY 10/13/20 01/09/24 Unknown History aspirin 81 mg tablet,delayed 81 mg PO DAILY 08/07/23 01/09/24 Unknown History release metoprolol tartrate 25 mg tablet 25 mg PO BID 08/07/23 01/09/24 Unknown History clopidogrel 75 mg tablet 75 mg PO 01/09/24 01/09/24 Unknown History omeprazole 40 mg capsule,delayed 40 mg PO BID 01/09/24 01/09/24 Unknown History release Allergies Allergy/AdvReac Type Severity Reaction Status Date / Time No Known Allergies Allergy Verified 06/13/24 18:47 [facility] Past Medical History Medical History Anemia GERD (gastroesophageal reflux disease) BMI 33.0-33.9,adult Encounter to establish care Elevated glucose Arthritis History of bleeding ulcers Hx of aortic aneurysm MONIKA (obstructive sleep apnea) Obesity HTN (hypertension) HLD (hyperlipidemia) Surgical History Surgical History History of open heart surgery Family History Family History Sibling Patient's brother is in good health Father Heart disease Mother Hypertension Depression Social History Social History Smoking status: Never smoker Alcohol intake: current Alcohol use details: 2-3 Beers a month Substance use: never Exam Narrative: GENERAL: Well-appearing, well-nourished, and in no acute distress. HEAD: Normocephalic, atraumatic. EYES: Non injected, non icteric ENT: Nares clear, no rhinorrhea or epistaxis. NECK: Supple. CHEST: Speaking in full sentences. No respiratory distress. HEART: Regular rate and rhythm. . ABDOMEN: Soft, nondistended. EXTREMITIES: Normal range of motion. No lower extremity edema. SKIN: Dry. Skin feels warm to the touch. No petechiae or purpura. NEURO: No focal deficits. Alert and oriented x3. Occassionally mis-speaks about some detail and family has to correct/provide additional information but in general is able to answer questions and answer health history. PSYCH: Normal mood and affect. Course Vital Signs Vital signs: Vital Signs Temperature 100.1 F H 09/25/24 16:47 Pulse Rate 81 09/25/24 16:47 Respiratory Rate 16 09/25/24 16:47 Blood Pressure 132/72 09/25/24 16:47 Pulse Oximetry 96 09/25/24 16:47 Temperature 98.3 F 09/25/24 20:31 Pulse Rate 83 09/25/24 21:16 Respiratory Rate 20 09/25/24 21:16 Blood Pressure 110/78 09/25/24 21:16 Pulse Oximetry 94 09/25/24 21:16 Oxygen Delivery Room Air 09/25/24 17:02 MDM - Weakness MDM Narrative Medical decision making narrative: Patient presents with generalized weakness. Reportedly more lethargic and confused. Complaining of a cough and fever and back pain. In the emergency department he is borderline febrile though otherwise with appropriate vital signs. Temperature slightly improves without intervention but acetaminophen will be given regardless. Leukocytosis, normocytic anemia, thrombocytopenia. The anemia and thrombocytopenia are chronic and stable. Considered TTP given anemia and thrombocytopenia with fever and confusion. Lab to obtain peripheral smear. LDH is elevated ; but no pettechiae/purpura and PLASMIC score is 2 points, suggesting low risk with 0% risk of severe EFQCVB15 deficiency. Strong concern for pneumonia based on CXR and symptoms (and became SOB) so will treat as such. 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 Reassessed at 7:15 p.m.. He is resting comfortably and in no acute distress. No accessory muscle usage but is breathing 28times per minute. TSH is low but free T4 is normal suggesting subclinical hyperthyroidism (versus T3 toxicosis). CT non con showed aneurysm but CTA without acute complication as a result of this. Had discussed recommendation for admission and he and family had seemed in agreement. Discussed with hospitalist Dr Helton. However, when she went to perform H&P, he states he would like to go. I expressed my concerns given his risk factors and the fact that family had noted that they had concerns about his gait given how weak he was, in addition to the confusion which was not like him. THey are comfortable with him being discharged. I did request a road test be performed. Patient did at one point grab the counter and the tech reports that he desaturated briefly to 87-88% but Bryson was present during this and does think he is fine to be discharged from the ED. I gave strict ED return precautions and urged him to return with any new/worsened/unmanaged symptoms given his confusion and gait instability puts him at higher risk of falls which, if he injured himself, could lead to decreased independence. Patient and family verify understanding and are in agreement. His vital signs have normalized however. Discharged with Rx for antibiotic as well as APAP + NSAID for symptom /fever management. . Differential Diagnosis Differential diagnosis: Likely acute myocardial infarction, anemia, hypoglycemia, hypothyroidism, sepsis, dehydration and other (TTP ; thyroid disorder; intracranial hemorrhage; UTI; PNA; acute viral syndrome; considered meningitis) Lab Data Attestation: I reviewed the patient's lab results. 09/25/24 17:11 09/25/24 17:11 Labs: Lab Results 09/25/24 09/25/24 09/25/24 Range/Units 17:10 17:11 17:23 WBC 12.6 H (4.5-10.0) K/mm3 RBC 4.23 L (4.6-6.20) M/mm3 Hgb 13.8 L (14.0-18.0) g/dL Hct 39.3 L (42.0-52.0) % MCV 92.9 (80-100) fl MCH 32.6 (26-34) pg MCHC 35.1 (32-36) g/dl RDW 13.2 (11.5-14.5) % Plt Count 141 L (150-375) k/mm3 MPV 9.4 (7.4-10.4) fl Immature Gran % (Auto) 0.2 (0-0.5) % Neut % (Auto) 86.8 H (45.5-73.1) % Lymph % (Auto) 6.8 L (18.3-44.2) % [place] % (Auto) 6.0 (2.6-8.5) % Eos % (Auto) 0.0 (0-4.4) % Baso % (Auto) 0.2 (0.2-1.2) % Lymph # (Auto) 0.85 L (0.9-3.2) K/mm3 [place] # (Auto) 0.8 H (0.1-0.6) K/mm3 Eos # (Auto) 0.0 (0-0.3) K/mm3 Baso # (Auto) 0.0 (0.0-0.1) K/mm3 Abs Immat Gran (auto) 0.03 (0.00-0.031) K/mm3 Absolute Neuts (auto) 10.9 H (1.3-6.7) K/mm3 Absolute Nucleated RBC 0.000 (0.0-0.012) K/mm3 Total Counted 100 Neutrophils % (Manual) 89 H (46-73) % Band Neutrophils % 2 (0-6) % Lymphocytes % (Manual) 5.0 L (18-44) % Monocytes % (Manual) 4 (3-9) % Nucleated RBC % 0.0 (0.0-0.2) % Abs Neuts (Manual) 11.46 H (1.3-6.7) K/mm3 Abs Lymphs (Manual) 0.63 L (1.1-4.5) K/mm3 Abs Monocytes (Manual) 0.50 (0.1-0.90) K/mm3 Platelet Estimate Adequate (Adequate) Schistocytes None seen Absolute Retic 0.07 (0.02-0.10) 10^6/uL Percent Retic 1.72 (0.7-4.3) % Immature Retic Fraction 19.3 H (3.0-15.9) % Retic Hgb Content 35.3 (28.2-36.6) pg Haptoglobin Pending PT 14.5 (11.1-14.7) Seconds INR 1.1 APTT 31.0 (22.3-36.8) Seconds Sodium 134 L (137-145) mmol/L Potassium 3.8 (3.4-5.0) mmol/L Chloride 102 (98-107) mmol/L Carbon Dioxide 25 (22-30) mmol/L Anion Gap 7 (4-12) mmol/L BUN 17 (9-20) mg/dL Creatinine 1.00 (0.7-1.3) mg/dL Estim Creat Clear Calc 68 ml/min Estimated GFR > 60 (59 - ) Glucose 117 H (65-110) mg/dL Lactic Acid 1.2 (0.7-2.0) mmol/L Calcium 8.9 (8.4-10.2) mg/dL Total Bilirubin 1.7 H (0.2-1.3) mg/dL AST 29 (17-59) U/L ALT 20 (6-50) U/L Alkaline Phosphatase 79 (38-126) U/L Lactate Dehydrogenase 258 H (120-246) U/L Total Creatine Kinase 171 H (55-170) U/L Troponin I 0.017 (0.000-0.034) ng/mL Total Protein 8.0 (6.3-8.2) g/dL Albumin 4.3 (3.5-5.1) g/dL TSH 0.347 L (0.465-4.680) uIU/mL Free T4 (0.78-2.19) ng/dL Free T3 pg/mL Urine Color (Yellow) Urine Appearance (Clear) Urine pH (5.0-9.0) Ur Specific [place] (1.001-1.035) Urine Protein (Negative) mg/dL Urine Glucose (UA) (Negative) mg/dL Urine Ketones (Negative) mg/dL Ur Blood (Man) (Negative) Urine Nitrate (Negative) Urine Bilirubin (Negative) Urine Urobilinogen (<2.0) mg/dL Leukocyte Esterase Rfl (Negative) JOHNATHAN/UL Salicylates < 1.0 L (2-20) mg/dL Urine Opiates Screen (Negative) Urine Methadone Screen (Negative) Acetaminophen < 10 L (10-30) ug/mL Ur Barbiturates Screen (Negative) Ur Phencyclidine Scrn (Negative) Ur Amphetamine Screen (Negative) U Benzodiazepines Scrn (Negative) Urine Cocaine Screen (Negative) U Cannabinoids Screen (Negative) Ethyl Alcohol < 10 (<10) mg/dL Influenza A (RT-PCR) Negative (Negative) Influenza B (RT-PCR) Negative (Negative) RSV (RT-PCR) Negative (Negative) SARS-CoV-2 RNA (RT-PCR) Negative (Negative) 09/25/24 09/25/24 Range/Units 18:28 20:06 WBC (4.5-10.0) K/mm3 RBC (4.6-6.20) M/mm3 Hgb (14.0-18.0) g/dL Hct (42.0-52.0) % MCV (80-100) fl MCH (26-34) pg MCHC (32-36) g/dl RDW (11.5-14.5) % Plt Count (150-375) k/mm3 MPV (7.4-10.4) fl Immature Gran % (Auto) (0-0.5) % Neut % (Auto) (45.5-73.1) % Lymph % (Auto) (18.3-44.2) % P[place] % (Auto) (2.6-8.5) % Eos % (Auto) (0-4.4) % Baso % (Auto) (0.2-1.2) % Lymph # (Auto) (0.9-3.2) K/mm3 [place] # (Auto) (0.1-0.6) K/mm3 Eos # (Auto) (0-0.3) K/mm3 Baso # (Auto) (0.0-0.1) K/mm3 Abs Immat Gran (auto) (0.00-0.031) K/mm3 Absolute Neuts (auto) (1.3-6.7) K/mm3 Absolute Nucleated RBC (0.0-0.012) K/mm3 Total Counted Neutrophils % (Manual) (46-73) % Band Neutrophils % (0-6) % Lymphocytes % (Manual) (18-44) % Monocytes % (Manual) (3-9) % Nucleated RBC % (0.0-0.2) % Abs Neuts (Manual) (1.3-6.7) K/mm3 Abs Lymphs (Manual) (1.1-4.5) K/mm3 Abs Monocytes (Manual) (0.1-0.90) K/mm3 Platelet Estimate (Adequate) Schistocytes Absolute Retic (0.02-0.10) 10^6/uL Percent Retic (0.7-4.3) % Immature Retic Fraction (3.0-15.9) % Retic Hgb Content (28.2-36.6) pg Haptoglobin PT (11.1-14.7) Seconds INR APTT (22.3-36.8) Seconds Sodium (137-145) mmol/L Potassium (3.4-5.0) mmol/L Chloride (98-107) mmol/L Carbon Dioxide (22-30) mmol/L Anion Gap (4-12) mmol/L BUN (9-20) mg/dL Creatinine (0.7-1.3) mg/dL Estim Creat Clear Calc ml/min Estimated GFR (59 - ) Glucose (65-110) mg/dL Lactic Acid (0.7-2.0) mmol/L Calcium (8.4-10.2) mg/dL Total Bilirubin (0.2-1.3) mg/dL AST (17-59) U/L ALT (6-50) U/L Alkaline Phosphatase (38-126) U/L Lactate Dehydrogenase (120-246) U/L Total Creatine Kinase (55-170) U/L Troponin I (0.000-0.034) ng/mL Total Protein (6.3-8.2) g/dL Albumin (3.5-5.1) g/dL TSH (0.465-4.680) uIU/mL Free T4 0.83 (0.78-2.19) ng/dL Free T3 pg/mL Pending Urine Color Yellow (Yellow) Urine Appearance Clear (Clear) Urine pH 5.5 (5.0-9.0) Ur Specific [place] 1.028 (1.001-1.035) Urine Protein 1+ H (Negative) mg/dL Urine Glucose (UA) Negative (Negative) mg/dL Urine Ketones Trace H (Negative) mg/dL Ur Blood (Man) Non-hemolyzed trace (Negative) Urine Nitrate Negative (Negative) Urine Bilirubin Negative (Negative) Urine Urobilinogen 1.0 (<2.0) mg/dL Leukocyte Esterase Rfl Negative (Negative) JOHNATHAN/UL Salicylates (2-20) mg/dL Urine Opiates Screen Negative (Negative) Urine Methadone Screen Negative (Negative) Acetaminophen (10-30) ug/mL Ur Barbiturates Screen Negative (Negative) Ur Phencyclidine Scrn Negative (Negative) Ur Amphetamine Screen Negative (Negative) U Benzodiazepines Scrn Negative (Negative) Urine Cocaine Screen Negative (Negative) U Cannabinoids Screen Negative (Negative) Ethyl Alcohol (<10) mg/dL Influenza A (RT-PCR) (Negative) Influenza B (RT-PCR) (Negative) RSV (RT-PCR) (Negative) SARS-CoV-2 RNA (RT-PCR) (Negative) Imaging Data Attestation: I personally reviewed and interpreted this imaging study as follows: My impression: There is some haziness on the left in this concerning for pneumonia on my independent interpretation Radiologist's impression: Impressions Head CT 09/25/24 18:15 IMPRESSION: 1. 9 mm aneurysm of left middle cerebral artery. Head CTA is recommended. Chest X-Ray 09/25/24 18:23 IMPRESSION: 1. Airspace opacities in right lower lung zone and left mid and lower lung zones, consistent with atelectasis versus pneumonia. 2. Cardiomegaly. CT Brain Angiography 09/25/24 19:39 IMPRESSION: 1. 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 ECG Data EKG #1: Attestation: I personally reviewed and interpreted this ECG as follows: ECG completion date: 09/25/24 ECG completion time: 17:03 Interpretation: Sinus rhythm at a rate of 80 beats per minute. TX interval 114. QRS 103. QT/QTC 354/391. Poor R-wave progression across the precordial leads. No T-wave inversions. Left anterior fascicular block with rS complexes in leads II, III, aVF (small R waves, deep S waves), qR complexes in lead I , avL (small Q waves and tall R waves) and left axis deviation with Leads II, III and aVF negative and leads I and aVL positive. Discharge Plan Discharge Clinical Impression: Pneumonia involving left lung, Weakness, Leukocytosis, Normocytic anemia, Thrombocytopenia, Aneurysm Patient Disposition: Home, Self-Care Condition: Stable Instructions: Antibiotic Form, Community Acquired Pneumonia (DC), Leukocytosis (ED), Weakness (ED), Anemia (ED), Thrombocytopenia (ED) Additional Instructions: As we discussed, you have a pneumonia. He received the 1st dose of your antibiotics (x2) IV and, given that you are electing to be discharged, will be prescribed one. Take the entire course. Follow-up with your primary care physician. Return to the emergency department with any new or worsening symptoms such as shortness of breath, fever >100.4F not responding to acetaminophen/Tylenol (safe to take maximum 4000mg/day), weakness, difficulty walking, etc. Patient Language: Upper Sorbian Prescriptions: New azithromycin 250 mg tablet 250 mg PO DAILY 5 Days Qty: 5 0RF Rx Instructions: start on day 2 of therapy acetaminophen 500 mg capsule 1,000 mg PO Q6H PRN (Reason: pain) Qty: 30 0RF ibuprofen 600 mg tablet 600 mg PO TID PRN (Reason: pain) Qty: 30 0RF No Action cephalexin 500 mg capsule 500 mg PO Q8H 7 Days Qty: 21 0RF silver sulfadiazine [Silvadene] 1 % cream 1 applic topical BID 7 Days Qty: 20 0RF Rx Instructions: apply a 1.5 mm thickness clopidogrel 75 mg tablet 75 mg PO omeprazole 40 mg capsule,delayed release(DR/EC) 40 mg PO BID atorvastatin 40 mg tablet 40 mg PO DAILY aspirin 81 mg tablet,delayed release (DR/EC) 81 mg PO DAILY metoprolol tartrate 25 mg tablet 25 mg PO BID pantoprazole 40 mg tablet,delayed release (DR/EC) 40 mg PO QAM Qty: 90 1RF Follow-up/Referrals: Gabby Li NP [Primary Care Provider] - Stand Alone Forms: Work/School Release IP Time of Disposition: 22:42
[2024-09-25 17:39] LABS: Lactic Acid Reflex 1.2 mmol/L (0.7-2.0)
[2024-09-25] MEDS: ACETAMINOPHEN 500 MG TABLET 1000 MG PO (17:40)
[2024-09-25 17:51] LABS: Influenza A QL RT-PCR Negative (Negative); Influenza B QL RT-PCR Negative (Negative); RSV RNA, RT-PCR Negative (Negative); SARS-CoV-2 RNA PCR Negative (Negative)
[2024-09-25 17:55] LABS: Creatine Kinase 171 U/L (55-170)
[2024-09-25 18:00] LABS: Acetaminophen < 10 ug/mL (10-30); Ethanol < 10 mg/dL (<10); Salicylate < 1.0 mg/dL (2-20)
[2024-09-25 18:09] LABS: Troponin I 0.017 ng/mL (0.000-0.034)
[2024-09-25 18:27] LABS: Thyroid Stimulating Hormone 0.347 uIU/mL (0.465-4.680)
[2024-09-25] MEDS: SODIUM CHLORIDE 0.9% IV 1,000 ML 999 ML IV CONT (18:28)
[2024-09-25 18:32] LABS: Lactate Dehydrogenase 258 U/L (120-246)
[2024-09-25 18:36] LABS: Immature Reticulocyte Fraction 19.3 % (3.0-15.9); Reticulocyte Hemoglobin Conten 35.3 pg (28.2-36.6); Reticulocyte Percent 1.72 % (0.7-4.3); Reticulocytes Absolute 0.07 10^6/uL (0.02-0.10)
[2024-09-25 18:56] LABS: Amphetamine Screen Urine Negative (Negative); Barbiturate Screen Urine Negative (Negative); Benzodiazepines Screen Urine Negative (Negative); Cannabinoid Screen Urine Negative (Negative); Cocaine Screen Urine Negative (Negative); Methadone Screen Urine Negative (Negative); Opiate Screen Urine Negative (Negative); Phencyclidine Screen Urine Negative (Negative)
[2024-09-25 18:59] LABS: INR 1.1; Prothrombin Time 14.5 Seconds (11.1-14.7)
[2024-09-25 19:40] LABS: Band Neutrophils Percent 2 % (0-6); Lymphocytes Absolute Manual 0.63 K/mm3 (1.1-4.5); Monocytes Percent Manual 4 % (3-9); Neutrophils Absolute Manual 11.46 K/mm3 (1.3-6.7); Neutrophils Percent Manual 89 % (46-73); Platelet Estimate Adequate (Adequate); Schistocytes None Seen; Total Cells Counted 100
[2024-09-25 19:41] LABS: Add Urine Microscopic? YES; Appearance Urine Clear (Clear); Bilirubin Urine Negative (Negative); Blood Urine Non-Hemolyzed Trace (Negative); Color Urine Yellow (Yellow); Glucose Urine UA Negative (Negative); Ketones Urine Trace mg/dL (Negative); Leukocyte Esterase Ur Negative LEU/UL (Negative); Nitrate Urine Negative (Negative); Protein Urine 1+ mg/dL (Negative); Specific Grav Ur 1.028 (1.001-1.035); pH Urine 5.5 (5.0-9.0)
[2024-09-25] MEDS: AZITHROMYCIN 500 MG/NS 250 ML 500 MG/250 ML BAG 250 MG IVPB (19:52)
[2024-09-25 20:58] LABS: Free T4 Free Thyroxine 0.83 ng/dL (0.78-2.19)
--- NOTE | 2024-09-25 21:07 | PM.IMHP ---
H&P: HPI History of Present Illness Date/Time: 09/25/24 21:07 [facility] Past Medical History Medical History (Updated 09/25/24 @ 19:49 by Amy Lennon MD) Anemia GERD (gastroesophageal reflux disease) BMI 33.0-33.9,adult Encounter to establish care Elevated glucose Arthritis History of bleeding ulcers Hx of aortic aneurysm MONIKA (obstructive sleep apnea) Obesity HTN (hypertension) HLD (hyperlipidemia) Surgical History Surgical History History of open heart surgery Family History Family History Sibling Patient's brother is in good health Father Heart disease Mother Hypertension Depression Social History Social History Smoking status: Never smoker Alcohol intake: current Alcohol use details: 2-3 Beers a month Substance use: never Meds Home Medications and Allergies Home Medications ?Medication ?Instructions ?Recorded ?Confirmed ?Type atorvastatin 40 mg tablet 40 mg PO DAILY 10/13/20 01/09/24 History aspirin 81 mg tablet,delayed 81 mg PO DAILY 08/07/23 01/09/24 History release metoprolol tartrate 25 mg tablet 25 mg PO BID 08/07/23 01/09/24 History clopidogrel 75 mg tablet 75 mg PO 01/09/24 01/09/24 History omeprazole 40 mg capsule,delayed 40 mg PO BID 01/09/24 01/09/24 History release pantoprazole 40 mg tablet,delayed 40 mg PO QAM #90 tabs 04/29/24 Rx release cephalexin 500 mg capsule 500 mg PO Q8H 7 days #21 caps 06/13/24 Rx silver sulfadiazine 1 % topical 1 applic topical BID 7 days #20 06/13/24 Rx cream (Silvadene) grams Allergies Allergy/AdvReac Type Severity Reaction Status Date / Time No Known Allergies Allergy Verified 06/13/24 18:47 Vital Signs Vital Signs - 24 hr 09/25/24 16:47 09/25/24 17:02 09/25/24 17:02 Temperature 100.1 F H Pulse Rate 81 85 Respiratory Rate 16 Blood Pressure 132/72 Pulse Oximetry 96 95 Oxygen Delivery Room Air 09/25/24 17:04 09/25/24 18:10 09/25/24 19:00 Temperature 99.7 F H 98.8 F 98.8 F Pulse Rate 82 82 Respiratory Rate 35 H 20 Blood Pressure 116/71 115/68 Pulse Oximetry 96 94 Oxygen Delivery H&P: Results Labs Labs: Short CBC 09/25/24 Range/Units 17:11 WBC 12.6 H (4.5-10.0) K/mm3 Hgb 13.8 L (14.0-18.0) g/dL Hct 39.3 L (42.0-52.0) % Plt Count 141 L (150-375) k/mm3 BMP 09/25/24 17:11 Sodium 134 L Potassium 3.8 Chloride 102 Carbon Dioxide 25 BUN 17 Creatinine 1.00 Glucose 117 H Calcium 8.9 Cardiac Enzymes 09/25/24 Range/Units 17:10 Total Creatine Kinase 171 H (55-170) U/L Troponin I 0.017 (0.000-0.034) ng/mL Liver Function 09/25/24 Range/Units 17:11 Total Bilirubin 1.7 H (0.2-1.3) mg/dL AST 29 (17-59) U/L ALT 20 (6-50) U/L Alkaline Phosphatase 79 (38-126) U/L Albumin 4.3 (3.5-5.1) g/dL Urine 09/25/24 Range/Units 18:28 Urine Color Yellow (Yellow) Urine Appearance Clear (Clear) Urine pH 5.5 (5.0-9.0) Ur Specific [place] 1.028 (1.001-1.035) Urine Protein 1+ H (Negative) mg/dL Urine Glucose (UA) Negative (Negative) mg/dL
[2024-09-27 03:38] LABS: Haptoglobin 107 mg/dL (43-212)
[2024-09-27 04:33] LABS: T3 Free 2.6 pg/mL (2.3-4.2)
== END 2024-09-25 23:51 | disposition home or self-care (01) ==
PROVIDERS: Emergency Provider Student in an Organized Health Care Education/Training Program; PCP Nurse Practitioner Family
DX: J18.9 Pneumonia, unspecified organism (principal); I67.1 Cerebral aneurysm, nonruptured; R53.1 Weakness; D72.829 Elevated white blood cell count, unspecified; D64.9 Anemia, unspecified; D69.6 Thrombocytopenia, unspecified; Z20.822 Contact with and (suspected) exposure to COVID-19; I10 Essential (primary) hypertension; E78.5 Hyperlipidemia, unspecified; E66.9 Obesity, unspecified; Z68.32 Body mass index [BMI] 32.0-32.9, adult; G47.33 Obstructive sleep apnea (adult) (pediatric); M19.90 Unspecified osteoarthritis, unspecified site; K21.9 Gastro-esophageal reflux disease without esophagitis; I51.7 Cardiomegaly; Z79.02 Long term (current) use of antithrombotics/antiplatelets; Z79.82 Long term (current) use of aspirin; Z79.899 Other long term (current) drug therapy
CPT/HCPCS: 36415; 70450; 70496; 71046; 80053; 80143; 80179; 80307; 81001; 82077; 82550; 83010; 83605; 83615; 84439; 84443; 84480; 84484; 85025; 85046; 85610; 85730; 87040; 87181; 87637; 93005; 96361; 96365; 96367; 96375; 99284; A9270; J0456; J0696; J7030; Q9967

== ENCOUNTER 2024-09-26 14:42 | Inpatient (IN) | payer MEDICARE, OTHER, SELFPAY ==
[2024-09-26] VITALS (16 sets, daily range): BP systolic 76–109; BP diastolic 49–69; PULSE 61–96; RESP 15–33; TEMP 36.8–37.2; O2SAT 91–100; BMI 32.5
[2024-09-26 15:42] LABS: Basophils Percent Auto 0.1 % (0.2-1.2); Eosinophils Percent Auto 0.1 % (0-4.4); Hematocrit 35.6 % (42.0-52.0); Hemoglobin 12.3 g/dL (14.0-18.0); Immature Granulocyte Absolute 0.06 K/mm3 (0.00-0.031); Immature Granulocyte Percent A 0.5 % (0-0.5); Lymphocytes Absolute Auto 0.65 K/mm3 (0.9-3.2); Lymphocytes Percent Auto 5.6 % (18.3-44.2); Mean Corpuscular HGB Conc 34.6 g/dl (32-36); Mean Corpuscular Hemoglobin 32.3 pg (26-34); Mean Corpuscular Volume 93.4 fl (80-100); Mean Platelet Volume 9.4 fl (7.4-10.4); Monocytes Absolute Auto 0.8 K/mm3 (0.1-0.6); Monocytes Percent Auto 7.1 % (2.6-8.5); Neutrophils Percent Auto 86.6 % (45.5-73.1); Platelet Count Result 116 k/mm3 (150-375); Red Blood Count 3.81 M/mm3 (4.6-6.20); Red Cell Distribution Width 13.5 % (11.5-14.5); White Blood Count 11.6 K/mm3 (4.5-10.0)
--- NOTE | 2024-09-26 15:44 | ED_ITS ---
HPI - General Adult General Chief complaint: Recheck/Abnormal Lab/Rx Stated complaint: blood infection Time Seen by Provider: 09/26/24 15:04 History of Present Illness HPI narrative: Patient is a 70-year-old male who presents ER for further evaluation after visit yesterday. Patient was seen for cough and chills. He is diagnosed with pneumonia and placed on azithromycin. He was contacted today due to positive blood culture that showed Gram-positive cocci in clusters. Patient reports he has been having persistent sweats and feeling hot today but no additional chills. He endorses cough and mild dyspnea. No chest pain. Related Data Home Medications ?Medication ?Instructions ?Recorded ?Confirmed ?Last Taken ?Type atorvastatin 40 mg tablet 40 mg PO DAILY 10/13/20 09/26/24 09/26/24 History aspirin 81 mg tablet,delayed 81 mg PO DAILY 08/07/23 09/26/24 09/26/24 History release metoprolol tartrate 25 mg tablet 25 mg PO BID 08/07/23 09/26/24 09/25/24 History losartan 25 mg tablet 25 mg PO DAILY 09/26/24 09/26/24 09/26/24 History Allergies Allergy/AdvReac Type Severity Reaction Status Date / Time No Known Allergies Allergy Verified 09/26/24 22:15 Review of Systems 2 Review of Systems: All systems reviewed & are unremarkable except as noted in HPI and below Constitutional: Constitutional: Reports chills, Reports fatigue and Reports fever(s) ENT: Reports system reviewed and no additional complaints, except as documented Cardiovascular: Cardiovascular: Reports no additional cardiovascular complaints Respiratory: Respiratory: Denies chest congestion, Reports cough, Reports dyspnea and Denies wheezing Gastrointestinal: Gastrointestinal: Reports no additional gastrointestinal complaints [facility] Past Medical History Medical History Anemia GERD (gastroesophageal reflux disease) BMI 33.0-33.9,adult Encounter to establish care Elevated glucose Arthritis History of bleeding ulcers Hx of aortic aneurysm MONIKA (obstructive sleep apnea) Obesity HTN (hypertension) HLD (hyperlipidemia) Surgical History Surgical History History of open heart surgery Family History Family History Sibling Patient's brother is in good health Father Heart disease Mother Hypertension Depression Social History Social History Smoking status: Never smoker Alcohol intake: current Alcohol use details: 2-3 Beers a month Substance use: never Exam 2 Narrative: GENERAL: Well-appearing, well-nourished, and in no acute distress. HEAD: Normocephalic, atraumatic. ENT: Mucous membranes moist. CHEST: Clear to auscultation. No respiratory distress. HEART: Regular rate and rhythm. Normal peripheral pulses. ABDOMEN: Soft, nontender, nondistended. EXTREMITIES: Normal range of motion. No edema. SKIN: Warm, dry, no rash. NEURO: Alert and oriented x3. PSYCH: Normal mood and affect. Course Course Emergency Course: Two positive blood cultures from previous visit. Broad-spectrum antibiotics started. Patient looks well clinically in interacts normally weighs had some low blood pressures. Will give 2 L IV fluid. Discussed with hospitalist service. Vital Signs Vital signs: Vital Signs Temperature 99.0 F 09/26/24 15:07 Pulse Rate 96 09/26/24 15:07 Respiratory Rate 18 09/26/24 15:07 Blood Pressure 100/64 09/26/24 15:07 Pulse Oximetry 98 09/26/24 15:07 Temperature 98.2 F 09/26/24 22:00 Pulse Rate 83 09/26/24 22:00 Respiratory Rate 16 09/26/24 22:00 Blood Pressure 109/68 09/26/24 22:00 Pulse Oximetry 97 09/26/24 22:00 Medical Decision Making Vital Signs Vital Signs: Vital Signs Temperature 99.0 F 09/26/24 15:07 Pulse Rate 96 09/26/24 15:07 Respiratory Rate 18 09/26/24 15:07 Blood Pressure 100/64 09/26/24 15:07 Pulse Oximetry 98 09/26/24 15:07 Temperature 98.2 F 09/26/24 22:00 Pulse Rate 83 09/26/24 22:00 Respiratory Rate 16 09/26/24 22:00 Blood Pressure 109/68 09/26/24 22:00 Pulse Oximetry 97 09/26/24 22:00 Lab Data 09/26/24 15:36 09/26/24 15:36 Labs: Lab Results 09/26/24 09/26/24 Range/Units 15:36 15:37 WBC 11.6 H (4.5-10.0) K/mm3 RBC 3.81 L (4.6-6.20) M/mm3 Hgb 12.3 L (14.0-18.0) g/dL Hct 35.6 L (42.0-52.0) % MCV 93.4 (80-100) fl MCH 32.3 (26-34) pg MCHC 34.6 (32-36) g/dl RDW 13.5 (11.5-14.5) % Plt Count 116 L (150-375) k/mm3 MPV 9.4 (7.4-10.4) fl Immature Gran % (Auto) 0.5 (0-0.5) % Neut % (Auto) 86.6 H (45.5-73.1) % Lymph % (Auto) 5.6 L (18.3-44.2) % [place] % (Auto) 7.1 (2.6-8.5) % Eos % (Auto) 0.1 (0-4.4) % Baso % (Auto) 0.1 L (0.2-1.2) % Lymph # (Auto) 0.65 L (0.9-3.2) K/mm3 [place] # (Auto) 0.8 H (0.1-0.6) K/mm3 Eos # (Auto) 0.0 (0-0.3) K/mm3 Baso # (Auto) 0.0 (0.0-0.1) K/mm3 Abs Immat Gran (auto) 0.06 H (0.00-0.031) K/mm3 Absolute Neuts (auto) 10.0 H (1.3-6.7) K/mm3 Absolute Nucleated RBC 0.000 (0.0-0.012) K/mm3 Nucleated RBC % 0.0 (0.0-0.2) % Sodium 135 L (137-145) mmol/L Potassium 3.5 (3.4-5.0) mmol/L Chloride 104 (98-107) mmol/L Carbon Dioxide 23 (22-30) mmol/L Anion Gap 8 (4-12) mmol/L BUN 24 H (9-20) mg/dL Creatinine 1.30 (0.7-1.3) mg/dL Estim Creat Clear Calc 53 ml/min Estimated GFR 53 L (59 - ) Glucose 114 H (65-110) mg/dL Lactic Acid 1.7 (0.7-2.0) mmol/L Calcium 8.9 (8.4-10.2) mg/dL Total Bilirubin 1.9 H (0.2-1.3) mg/dL AST 27 (17-59) U/L ALT 17 (6-50) U/L Alkaline Phosphatase 60 (38-126) U/L Total Protein 7.0 (6.3-8.2) g/dL Albumin 3.8 (3.5-5.1) g/dL Discharge Plan Discharge Clinical Impression: Pneumonia, Bacteremia Patient Disposition: Still a Patient Condition: Stable
[2024-09-26 15:51] LABS: Lactic Acid Reflex 1.7 mmol/L (0.7-2.0)
[2024-09-26 15:51] LABS: Alanine Aminotransferase 17 U/L (6-50); Albumin Level 3.8 g/dL (3.5-5.1); Alkaline Phosphatase 60 U/L (38-126); Anion Gap 8 mmol/L (4-12); Aspartate Amino Transferase 27 U/L (17-59); Bilirubin,Total 1.9 mg/dL (0.2-1.3); Blood Urea Nitrogen 24 mg/dL (9-20); Calcium 8.9 mg/dL (8.4-10.2); Carbon Dioxide 23 mmol/L (22-30); Chloride 104 mmol/L (98-107); Estimated CRCL calculation 53 ml/min; Estimated Glomerular Filt Rate 53; Glucose 114 mg/dL (65-110); Potassium 3.5 mmol/L (3.4-5.0); Sodium 135 mmol/L (137-145)
[2024-09-26] MEDS: ACETAMINOPHEN 325 MG TABLET 650 MG PO (16:27)
[2024-09-26] MEDS: SODIUM CHLORIDE 0.9% IV 1,000 ML 999 ML IV CONT ×3 (16:45→21:43)
[2024-09-26] MEDS: AZITHROMYCIN 500 MG/NS 250 ML 500 MG/250 ML BAG 250 MG IVPB (18:34)
--- NOTE | 2024-09-26 20:30 | PM.IMHP ---
H&P: HPI History of Present Illness Date/Time: 09/26/24 20:30 Chief Complaint: chills Narrative: This is a 78-year-old male with past medical history significant for dyslipidemia, gastroesophageal reflux disease, arthritis, obstructive sleep apnea, hypertension. patient presents to the emergency room after he had blood cultures positive for bacteria. Patient had been to the emergency room the day before where he was found to have bilateral infiltrates on chest x-ray. Patient went home on antibiotics. Patient returns today due to positive blood cultures. Has had chills, night sweats, profuse sweating, poor per orally intake, generalized malaise, body aches and pains generalized weakness. Patient has been admitted for further evaluation management and treatment. EXAMINATION: CT brain wo con DATE: 09/25/2024 18:13 INDICATION: Altered mental status. Confusion. TECHNIQUE: Computed tomography (CT) of the head was performed without intravenous contrast. The mA was adjusted according to patient size. Iterative reconstruction technique was employed. The dose-length product was 681.00 mGy-cm. COMPARISON: None FINDINGS: There are scattered areas of low attenuation in the cerebral white matter, which is within normal limits for the patient's age. There is no intracranial hemorrhage, acute infarction, or abnormal intracranial mass lesion. The ventricles are normal in size. There is a 9 mm aneurysm of left middle cerebral artery. There was normal. There is mild mucosal thickening in the paranasal sinuses. The mastoid air cells are normal. IMPRESSION: 1. 9 mm aneurysm of left middle cerebral artery. Head CTA is recommended. EXAMINATION: XR chest 2V DATE: 09/25/2024 18:16 INDICATION: Cough and fever. Altered mental status. TECHNIQUE: Frontal and lateral views of the chest were obtained. COMPARISON: Chest 2 views 08/08/2023, chest CT 01/16/2017 FINDINGS: There are airspace opacities in right lower lung zone and left mid and lower lung zones. No pleural effusion or pneumothorax. Cardiomegaly is noted. There are changes of aortic valve replacement. IMPRESSION: 1. Airspace opacities in right lower lung zone and left mid and lower lung zones, consistent with atelectasis versus pneumonia. 2. Cardiomegaly. EXAMINATION: CTA brain DATE: 09/25/2024 19:36 INDICATION: Cerebral aneurysm. TECHNIQUE: Computed tomographic angiography (CTA) of the head was performed with 100 mL Omnipaque-350 intravenous contrast. Automated exposure control and iterative reconstruction technique were employed. The dose-length product was 601.83 mGy-cm. Maximum intensity projection 3D reconstructions were created. Volume-rendered 3D reconstructions of the intracranial arteries were created by the technologist on a separate workstation. COMPARISON: Head CT 09/25/2024 FINDINGS: There are scattered areas of low attenuation in the cerebral white matter, which is within normal limits for the patient's age. There is no intracranial hemorrhage, acute infarction, or abnormal intracranial mass lesion. The ventricles are normal in size. There is mild mucosal thickening in left maxillary sinus. The mastoid air cells are normal. The orbits are normal. Left vertebral artery is dominant. There is no significant stenosis of basilar artery or the posterior cerebral arteries. There is no significant stenosis of the intracranial internal carotid arteries or anterior or middle cerebral arteries. Anterior communicating artery is normal. Left posterior communicating artery is normal. A right posterior communicating artery is not identified. 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 IMPRESSION: 1. 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 Review of Systems Review of Systems: positive blood cx, chills, generalized weakness, night sweats, body aches, lethargy PMFSH Past Medical History Medical History Anemia GERD (gastroesophageal reflux disease) BMI 33.0-33.9,adult Encounter to establish care Elevated glucose Arthritis History of bleeding ulcers Hx of aortic aneurysm MONIKA (obstructive sleep apnea) Obesity HTN (hypertension) HLD (hyperlipidemia) Surgical History Surgical History History of open heart surgery Family History Family History Sibling Patient's brother is in good health Father Heart disease Mother Hypertension Depression Social History Social History Smoking status: Never smoker Alcohol intake: current Drinks per week: 1 Alcohol use details: 2-3 Beers a month Substance use: never Do You Feel Safe in your Home?: Yes Lack of Transportation: No Lack of Food: Never True Current Housing: I Have Housing Concerned About Future Housing: No Difficulty Paying Gas/Electric Bills: No Difficulty Paying for Meds: No Currently Unemployed: No Education: Decline to Answer Difficulty w/ Childcare or Family Care: No Spiritual care concerns: Yes (yarsanism) Meds Home Medications and Allergies Home Medications ?Medication ?Instructions ?Recorded ?Confirmed ?Type atorvastatin 40 mg tablet 40 mg PO DAILY 10/13/20 09/26/24 History aspirin 81 mg tablet,delayed 81 mg PO DAILY 08/07/23 09/26/24 History release metoprolol tartrate 25 mg tablet 25 mg PO BID 08/07/23 09/26/24 History pantoprazole 40 mg tablet,delayed 40 mg PO QAM #90 tabs 04/29/24 09/26/24 Rx release acetaminophen 500 mg capsule 1,000 mg (2 x 500 mg) PO Q6H PRN 09/25/24 09/26/24 Rx pain #30 caps azithromycin 250 mg tablet 250 mg PO DAILY 5 days #5 tabs 09/25/24 09/26/24 Rx losartan 25 mg tablet 25 mg PO DAILY 09/26/24 09/26/24 History Allergies Allergy/AdvReac Type Severity Reaction Status Date / Time No Known Allergies Allergy Verified 09/26/24 22:15 Vital Signs Vital Signs - 24 hr 09/26/24 15:07 09/26/24 15:18 09/26/24 15:21 Temperature 99.0 F Pulse Rate 96 87 Respiratory Rate 18 23 H 33 H Blood Pressure 100/64 83/61 L Pulse Oximetry 98 96 93 09/26/24 15:46 09/26/24 16:01 09/26/24 16:38 Temperature Pulse Rate 80 78 80 Respiratory Rate 29 H 30 H 27 H Blood Pressure 96/69 L 91/59 L 88/49 L Pulse Oximetry 94 100 98 09/26/24 16:40 09/26/24 16:46 09/26/24 17:31 Temperature 98.9 F Pulse Rate 79 76 62 Respiratory Rate 20 27 H 15 Blood Pressure 76/58 L 90/57 L 91/65 L Pulse Oximetry 97 98 99 09/26/24 17:46 09/26/24 17:49 09/26/24 18:01 Temperature Pulse Rate 67 61 64 Respiratory Rate 23 H 15 15 Blood Pressure 91/58 L 91/58 L 103/65 Pulse Oximetry 97 91 97 09/26/24 19:11 Temperature 98.4 F Pulse Rate Respiratory Rate Blood Pressure Pulse Oximetry Exam Narrative: sitting in stretcher Const: General: cooperative, comfortable, no acute distress, well developed, alert, awake, well groomed, overweight and other (well appearing) Nutritional Appearance: overweight Orientation/consciousness: patient oriented x3 HENMT: Head: normal to inspection, normocephalic and atraumatic Ears: hearing grossly normal bilaterally Face/Nose/Sinus: normal facial exam Face and sinus: normal facial exam Eyes: General: appearance normal, both eyes and all related structures Pupils: Equal, round and reactive pupils present EOM: EOMs intact bilaterally Neck: Neck: full ROM, no lymphadenopathy and no JVD Thyroid: thyroid normal Lymphatic: no lymphadenopathy noted Resp: Effort & Inspection: normal respiratory effort and able to speak in complete sentences Auscultation: clear to auscultation bilaterally Cardio: Jugular venous distension: no JVD Rate: regular rate Rhythm: regular rhythm Heart sounds: S1 normal heart sound present and S2 normal heart sound present GI: GI Palp: Yes Soft to palpation and Yes No hepatosplenomegaly present : General: Yes deferred Skin: Rashes: no rashes Wounds: no wounds Neuro: General: patient oriented x3 and CN's II-XI intact bilaterally Cranial nerves: Yes CN's II-XII intact bilaterally and Yes Equal, round and reactive pupils present Cognition (Neuro): normal cognition Speech: normal speech Gait exam (Neuro): Normal gait present Motor exam (neuro): 5/5 motor strength present throughout Extrem: General: normal to inspection, full ROM, no joint enlargement and no pedal edema H&P: Results Labs Labs: Short CBC 09/26/24 Range/Units 15:36 WBC 11.6 H (4.5-10.0) K/mm3 Hgb 12.3 L (14.0-18.0) g/dL Hct 35.6 L (42.0-52.0) % Plt Count 116 L (150-375) k/mm3 BMP 09/26/24 15:36 Sodium 135 L Potassium 3.5 Chloride 104 Carbon Dioxide 23 BUN 24 H Creatinine 1.30 Glucose 114 H Calcium 8.9 Liver Function 09/26/24 Range/Units 15:36 Total Bilirubin 1.9 H (0.2-1.3) mg/dL AST 27 (17-59) U/L ALT 17 (6-50) U/L Alkaline Phosphatase 60 (38-126) U/L Albumin 3.8 (3.5-5.1) g/dL Assessment and Plan Assessment and plan (1) Pneumonia: Code(s): J18.9 - Pneumonia, unspecified organism Status: Acute Assessment and Plan: admit to IMU patient started on Rocephin and Zithromax await culture (2) Bacteremia: Code(s): R78.81 - Bacteremia Status: Acute Assessment and Plan: identify a Gram-positive cocci in clusters started on vanc, repeat blood cultures in 48 hours (3) GERD (gastroesophageal reflux disease): Code(s): K21.9 - Gastro-esophageal reflux disease without esophagitis Status: Acute Assessment and Plan: PPI (4) HTN (hypertension): Code(s): I10 - Essential (primary) hypertension Status: Acute Assessment and Plan: patient had episode of hypotension in the emergency room holding BP meds currently (5) MONIKA (obstructive sleep apnea): Code(s): G47.33 - Obstructive sleep apnea (adult) (pediatric) Status: Acute Assessment and Plan: CPAP at nighttime Hospitalist MIPS Advance Care Plan I have confirmed that the patient's Advanced Care Plan is present, code status is documented, or surrogate decision maker is listed in patient medical record.: Yes Medication Reconciliation I have utilized all available resources to obtain, update and review the patients current medications (includes all prescriptions, OTC, herbals, cannabis, and nutritional supplements).: Yes
--- NOTE | 2024-09-26 22:19 | PC.NURSE ---
This patient, Omar Adam, was admitted to IMU Room 213-01 at 2150. Patient/family oriented to hospital policies and general routines including ID bracelet, bed and alarms, visiting hours, pain management, procedures, bathroom and other care routines, personal items, smoking policy, room service/diet, and visiting hours. Information on how to activate the Rapid Response Team has been discussed. Patient/Family are encouraged to report perceived risks to care and to ask questions if they do not understand what they are told or what they should do.
[2024-09-27] VITALS (20 sets, daily range): BP systolic 115–142; BP diastolic 65–84; PULSE 67–108; RESP 16–24; TEMP 36.8–37.4; O2SAT 95–100
--- NOTE | 2024-09-27 | ECHO_ITS ---
Patient Info Name: Omar Adam Age: 78 years : 1945 Gender: Male Ht: 72 in Wt: 242 lbs BSA: 2.39 m2 HR: 78 bpm BP: 135 / 84 mmHg Technical Quality: Good Exam Date: 09/27/2024 11:04 AM Exam Location: Echo Lab Exam Room: [facility] Patient Status: Inpatient Admit Date: 09/27/2024 Staff Ordering Physician: Cale Darden MD Rodding Machine Tender: Tati Robbins RDCS Attending Provider: Joceline Woodard PA-C Referring Physician: Katalina BARILLAS; Exam Type: CA echo doppler color flow Study Info Complete two-dimensional, color flow and Doppler transthoracic echocardiogram is performed. Summary 1. Complete two-dimensional, color flow and Doppler transthoracic echocardiogram is performed. 2. Left ventricular systolic function is normal, estimated at 60-65%. 3. There is mildly increased left ventricular wall thickness. 4. The left ventricular diastolic function is grade II diastolic dysfunction. 5. There is mild tricuspid valve regurgitation. 6. Mild pulmonary hypertension, estimated pulmonary arterial systolic pressure is 40 mmHg. 7. Bioprosthetic aortic valve. Small area of possible calcification seen. if endocarditis is suspected, KELLEY will be a better option to evaluate. No regurgitation seen. Mean gradient across AV is 22 HMg and valve area 1.7 cm2. Left Ventricle Left ventricular chamber dimension is normal. Left ventricular systolic function is normal, estimated at 60-65%. There is mildly increased left ventricular wall thickness. Left ventricular septal wall motion is normal. The left ventricular diastolic function is grade II diastolic dysfunction. Right Ventricle Right ventricular chamber dimension is normal. Right ventricular systolic function is normal. Left Atria Left atrial chamber dimension is mildly enlarged. Right Atria Right atrial chamber dimension is normal. Aortic Valve There is no aortic valve stenosis. There is no aortic valve regurgitation. Pulmonic Valve The pulmonic valve is normal. There is no pulmonic valve stenosis. There is no pulmonic regurgitation. Mitral Valve The mitral valve has normal leaflets. There is no mitral valve stenosis. There is no mitral valve regurgitation. Tricuspid Valve The tricuspid valve leaflets are normal. There is no significant tricuspid valve stenosis. There is mild tricuspid valve regurgitation. Mild pulmonary hypertension, estimated pulmonary arterial systolic pressure is 40 mmHg. Pericardium/Pleural The pericardium appears normal. There is no pericardial effusion. Inferior Vena Cava Normal inferior vena cava with >50% collapse upon inspiration consistent with normal right atrial pressure, Empty. Aorta The aortic root size at the sinus of Valsalva is normal. The prox ascending aorta size is normal. Left Ventricular Outflow Tract Name Value Normal LVOT 2D LVOT Diameter 2.3 cm LVOT Doppler LVOT Peak Gradient 5 mmHg LVOT Mean Gradient 3 mmHg LVOT VTI 26 cm LVOT VTI/AV VTI Ratio 0.5 LVOT Stroke Volume 106 ml LVOT CO 19.1 l/min LVOT CI 8.0 l/min/m2 Pulmonic Valve Name Value Normal PV Doppler PV Peak Gradient 6 mmHg Mitral Valve Name Value Normal MV Doppler MV Decel [place] 511 cm/s2 MV PHT 55 ms MV Area (PHT) 4.0 cm2 4.0-5.0 MV Diastolic Function MV E Peak Velocity 97 cm/s MV A Peak Velocity 91 cm/s MV E/A 1.1 MV Decel Time 189 ms MV Annular TDI MV E/e' (Septal) 13.6 <=8.0 MV E/e' (Lateral) 16.4 <=8.0 MV E/e' (Average) 15.0 Tricuspid Valve Name Value Normal TV Regurgitation Doppler TR Peak Velocity 348 cm/s TR Peak Gradient 35 mmHg Estimated PAP/RSVP PA Systolic Pressure 40 mmHg <36 Aorta Name Value Normal Ascending Aorta Ao Root Diameter (2D) 3.0 cm Ao Root Diam Index (2D) 1.3 cm/m2 Aortic Valve Name Value Normal AV Doppler AV Peak Velocity 291 cm/s AV Peak Gradient 34 mmHg AV Mean Gradient 22 mmHg AV VTI 58 cm AV Area (Cont Eq VTI) 1.8 cm2 >=3.0 AV Area (Cont Eq Stan) 1.7 cm2 AV Regurgitation 2D LVOT Area 4.0 cm2 Ventricles Name Value Normal LV Dimensions 2D/MM IVS Diastolic Thickness (2D) 1.3 cm 0.6-1.0 LVID Diastole (2D) 5.8 cm 4.2-5.8 LVIW Diastolic Thickness (2D) 1.2 cm 0.6-1.0 LVID Systole (2D) 4.7 cm 2.5-4.0 LVOT Diameter 2.3 cm LV Mass (2D Cubed) 309.59 g 88.00-224.00 LV Mass Index (2D Cubed) 129 g/m2 49-115 Relative Wall Thickness (2D) 0.41 LV Fractional Shortening/Ejection Fraction 2D/MM LV Fractional Shortening (2D) 18 % 25-43 LV EF (2D Teicholz) 37 % 52-72 LV Diastolic Volume (4C MOD) 159 ml LV EF (4C MOD) 57 % LV Diastolic Length (4C) 9.1 cm LV Systolic Length (4C) 7.7 cm LV Stroke Volume (4C MOD) 94 ml Atria Name Value Normal LA Dimensions LA Dimension (2D) 4.0 cm 3.0-4.1 LA Dimen Index (2D) 1.7 cm/m2 LA Volume (4C A-L) 94 ml RA Dimensions RA Area (4C) 28.2 cm2 <=18.0 Report Signatures
[2024-09-27] MEDS: VANCOMYCIN 1,250 MG/NS 250 ML 1,250 MG/250 ML BAG 166.67 MG IVPB ×2 (06:36→06:37)
--- NOTE | 2024-09-27 07:00 | PM.IMPN ---
Progress Note: A&P Assessment and Plan (1) Bacteremia: Code(s): R78.81 - Bacteremia Status: Acute Assessment and Plan: - lactic acid: 1.7 - s/p 2L NS bolus - suspected source: pneumonia - Antibiotics: Vanc, rocephin, and azithromycin started 09/27 - blood cultures drawn on 09/25: final - MRSA - repeat blood cultures on 09/29 - echo ordered - UA unremarkable - CXR 09/25: Airspace opacities in right lower lung zone and left mid and lower lung zones, consistent with atelectasis versus pneumonia. Cardiomegaly. (2) Pneumonia: Code(s): J18.9 - Pneumonia, unspecified organism Status: Acute Assessment and Plan: CXR 09/25: Airspace opacities in right lower lung zone and left mid and lower lung zones, consistent with atelectasis versus pneumonia. Cardiomegaly. - Antibiotics: azithromycin ceftriaxone - Viral PCR: negative for Flu/COVID/RSV - Sputum culture ordered - no supplemental O2 requirement - Monitor vital signs, I&Os, neuro status and patient is a fall risk - Follow WBC, serum electrolytes, temperature curves and cultures (3) HTN (hypertension): Code(s): I10 - Essential (primary) hypertension Status: Acute Assessment and Plan: Chronic, currently holding home medications as patient was hypotensive on admission - Continue Metoprolol 25 mg BID - Holding Losartan 25 mg daily as patient was hypotensive - Monitor and resume as appropriate (4) MONIKA (obstructive sleep apnea): Code(s): G47.33 - Obstructive sleep apnea (adult) (pediatric) Status: Acute Assessment and Plan: Continue CPAP use Time Spent With Patient Time with patient: 25 - 35 minutes Subjective Date/time seen: 09/27/24 07:00 Interval history: 78 year old male with past medical history of hypertension, hyperlipidemia, GERD, MONIKA, and aortic aneurysm presents to the hospital after being called back for positive blood cultures on his 09/25 visit. On 09/25 patient reported to the ED for weakness,increased lethargy, and shortness of breath diagnosed with pneumonia and discharged on antibiotics. Patient is pleasant lying comfortably in bed. He states that he was a bit short of breath earlier this morning and was placed on oxygen supplementation by nursing. Per RN he had no desat in O2 but appeared dyspnic which prompted her to add the oxygen. At time of assessment the oxygen was removed and the patient spo2 remained stable and he denied any shortness of breath or difficulty breathing. Patient had no complaints also denying chest pain, palpitations, nausea/vomiting and abdominal pain. Review of Systems Review of Systems: All systems reviewed & are unremarkable except as noted in HPI and below Exam Narrative: AF HR 70 RR 16 SPO2 98 RA BP 115/66 (all vitals besides temp and BP were obtained during assessment) General: male in no acute respiratory distress who is nontoxic appearing, lying semi recumbent in bed. HEENT: Normocephalic. Atraumatic. Extraocular movement intact. Sclera clear and anicteric. No facial asymmetry. Chest: Lungs are clear to auscultation bilaterally. No wheezes or crackles. CV: Heart was regular rate and rhythm. S1/S2. No murmurs, gallops, or rubs. Abd: Abdomen was soft. Nontender. Nondistended. Positive bowel sounds. No organomegaly or masses. Ext: No clubbing, cyanosis, or edema. 2+ DP pulses bilaterally. Neuro: Patient is alert and oriented x4. Cranial nerves 2-12 are intact. Speech is clear. Objective Data Vital Signs Vital Signs: Vital Signs - 24 hr 09/26/24 15:07 09/26/24 15:18 09/26/24 15:21 Temperature 99.0 F Pulse Rate 96 87 Respiratory Rate 18 23 H 33 H Blood Pressure 100/64 83/61 L Pulse Oximetry 98 96 93 Oxygen Delivery 09/26/24 15:46 09/26/24 16:01 09/26/24 16:38 Temperature Pulse Rate 80 78 80 Respiratory Rate 29 H 30 H 27 H Blood Pressure 96/69 L 91/59 L 88/49 L Pulse Oximetry 94 100 98 Oxygen Delivery 09/26/24 16:40 09/26/24 16:46 09/26/24 17:31 Temperature 98.9 F Pulse Rate 79 76 62 Respiratory Rate 20 27 H 15 Blood Pressure 76/58 L 90/57 L 91/65 L Pulse Oximetry 97 98 99 Oxygen Delivery 09/26/24 17:46 09/26/24 17:49 09/26/24 18:01 Temperature Pulse Rate 67 61 64 Respiratory Rate 23 H 15 15 Blood Pressure 91/58 L 91/58 L 103/65 Pulse Oximetry 97 91 97 Oxygen Delivery 09/26/24 19:11 09/26/24 21:34 09/26/24 22:00 Temperature 98.4 F 98.2 F Pulse Rate 78 83 Respiratory Rate 18 16 Blood Pressure 99/65 L 109/68 Pulse Oximetry 98 97 Oxygen Delivery 09/26/24 22:05 09/26/24 23:25 09/27/24 00:00 Temperature 98.2 F Pulse Rate 90 95 Respiratory Rate 20 Blood Pressure 116/65 Pulse Oximetry 96 Oxygen Delivery Room Air 09/27/24 00:00 09/27/24 02:00 09/27/24 02:25 Temperature Pulse Rate 85 75 Respiratory Rate Blood Pressure Pulse Oximetry 96 Oxygen Delivery Autopap 09/27/24 03:15 09/27/24 03:30 09/27/24 04:00 Temperature 98.3 F Pulse Rate 85 75 Respiratory Rate 18 Blood Pressure 128/79 Pulse Oximetry 100 Oxygen Delivery Room Air 09/27/24 06:00 Temperature Pulse Rate 78 Respiratory Rate Blood Pressure Pulse Oximetry Oxygen Delivery Intake/Output Intake/Output: Intake & Output 09/24/24 09/25/24 09/26/24 09/27/24 23:59 23:59 23:59 23:59 Intake Total 2300 1500 Output Total 325 Balance 2300 1175 Meds/Results Medications: Active Medications Generic Name Dose Route Start Last Admin Trade Name Freq PRN Reason Stop Dose Admin Acetaminophen 1,000 mg 09/27/24 04:21 Acetaminophen 500 Mg Tablet PO Q6H PRN pain Hydrocodone Bitart/Acetaminophen 1 tab 09/26/24 18:26 Hydrocodone/Acetaminophen (*Crx) 5-325 Mg Tablet PO Q4H PRN Pain Rated 4-6 Aspirin 81 mg 09/27/24 09:00 Aspirin 81 Mg Enteric Tablet PO DAILY GINNA Ceftriaxone Sodium 1 gm in 50 mls @ 100 mls/hr 09/27/24 12:00 Rocephin 1 Gm/Ns 50 Ml IVPB Q24H GINNA Azithromycin 500 mg in 250 mls @ 250 mls/hr 09/27/24 12:00 Zithromax IVPB Q24H GINNA Vancomycin HCl 1,500 mg in 500 mls @ 250 mls/hr 09/28/24 06:00 Vancomycin 1,500 Mg/Ns 500 Ml IVPB Q24H GINNA Vancomycin HCl 1,250 mg in 250 mls @ 166.667 mls/hr 09/27/24 06:00 09/27/24 06:37 Vancomycin 1,250 Mg/Ns 250 Ml IVPB 09/27/24 07:29 166.67 mls/hr ONCE ONE Administration Vancomycin HCl 1,250 mg in 250 mls @ 166.667 mls/hr 09/27/24 07:30 09/27/24 06:36 Vancomycin 1,250 Mg/Ns 250 Ml IVPB 09/27/24 08:59 166.67 mls/hr ONCE ONE Administration Morphine Sulfate 2 mg 09/26/24 18:26 Morphine Sulfate (*Crx) 2 Mg/Ml Inj IV PUSH Q2H PRN Pain Rated 7-10 Pantoprazole Sodium 40 mg 09/27/24 09:00 Pantoprazole 40 Mg Tablet PO QAM [facility] Perflutren Lipid Microsphere 0 ml 09/27/24 04:22 Perflutren Lipid Microspheres 1.5 Ml Vial Diluted To 10 Ml Total Volume IV PUSH 09/30/24 04:22 ONCE PRN adequate visualization Protocol Labs Labs: Laboratory Results - last 24 hr 09/26/24 09/26/24 15:36 15:37 WBC 11.6 H RBC 3.81 L Hgb 12.3 L Hct 35.6 L MCV 93.4 MCH 32.3 MCHC 34.6 RDW 13.5 Plt Count 116 L MPV 9.4 Immature Gran % (Auto) 0.5 Neut % (Auto) 86.6 H Lymph % (Auto) 5.6 L [place] % (Auto) 7.1 Eos % (Auto) 0.1 Baso % (Auto) 0.1 L Lymph # (Auto) 0.65 L [place] # (Auto) 0.8 H Eos # (Auto) 0.0 Baso # (Auto) 0.0 Abs Immat Gran (auto) 0.06 H Absolute Neuts (auto) 10.0 H Absolute Nucleated RBC 0.000 Nucleated RBC % 0.0 Sodium 135 L Potassium 3.5 Chloride 104 Carbon Dioxide 23 Anion Gap 8 BUN 24 H Creatinine 1.30 Estim Creat Clear Calc 53 Estimated GFR 53 L Glucose 114 H Lactic Acid 1.7 Calcium 8.9 Total Bilirubin 1.9 H AST 27 ALT 17 Alkaline Phosphatase 60 Total Protein 7.0 Albumin 3.8
[2024-09-27 07:57] LABS: Basophils Percent Auto 0.1 % (0.2-1.2); Eosinophils Percent Auto 0.2 % (0-4.4); Hematocrit 34.3 % (42.0-52.0); Hemoglobin 11.6 g/dL (14.0-18.0); Immature Granulocyte Absolute 0.03 K/mm3 (0.00-0.031); Immature Granulocyte Percent A 0.3 % (0-0.5); Immature Platelet Fraction Pct 2.1 % (0.9-11.2); Lymphocytes Absolute Auto 0.77 K/mm3 (0.9-3.2); Lymphocytes Percent Auto 8.7 % (18.3-44.2); Mean Corpuscular HGB Conc 33.8 g/dl (32-36); Mean Corpuscular Hemoglobin 32.2 pg (26-34); Mean Corpuscular Volume 95.3 fl (80-100); Mean Platelet Volume 9.9 fl (7.4-10.4); Monocytes Absolute Auto 0.8 K/mm3 (0.1-0.6); Monocytes Percent Auto 8.8 % (2.6-8.5); Neutrophils Absolute Auto 7.2 K/mm3 (1.3-6.7); Neutrophils Percent Auto 81.9 % (45.5-73.1); Platelet Count Result 103 k/mm3 (150-375); Red Cell Distribution Width 13.5 % (11.5-14.5); White Blood Count 8.8 K/mm3 (4.5-10.0)
[2024-09-27 08:13] LABS: Alanine Aminotransferase 17 U/L (6-50); Albumin Level 3.2 g/dL (3.5-5.1); Alkaline Phosphatase 60 U/L (38-126); Anion Gap 3 mmol/L (4-12); Aspartate Amino Transferase 27 U/L (17-59); Bilirubin,Total 1.1 mg/dL (0.2-1.3); Blood Urea Nitrogen 17 mg/dL (9-20); Calcium 7.9 mg/dL (8.4-10.2); Carbon Dioxide 24 mmol/L (22-30); Chloride 108 mmol/L (98-107); Estimated CRCL calculation 76 ml/min; Estimated Glomerular Filt Rate > 60; Glucose 106 mg/dL (65-110); Potassium 3.6 mmol/L (3.4-5.0); Sodium 135 mmol/L (137-145)
[2024-09-27] MEDS: PANTOPRAZOLE 40 MG TABLET PO (08:39)
[2024-09-27] MEDS: ASPIRIN 81 MG ENTERIC TABLET PO (08:39)
[2024-09-27] MEDS: ACETAMINOPHEN 500 MG TABLET 1000 MG PO (08:40)
[2024-09-27] MEDS: AZITHROMYCIN 500 MG/NS 250 ML 500 MG/250 ML BAG 250 MG IVPB (12:31)
[2024-09-27] MEDS: METOPROLOL TARTRATE 25 MG TABLET PO (20:13)
[2024-09-28] VITALS (18 sets, daily range): BP systolic 125–144; BP diastolic 69–85; PULSE 59–92; RESP 16–20; TEMP 36.8–37.6; O2SAT 94–99
[2024-09-28] MEDS: ACETAMINOPHEN 500 MG TABLET 1000 MG PO ×2 (00:36→12:53)
[2024-09-28 05:04] LABS: Basophils Percent Auto 0.2 % (0.2-1.2); Eosinophils Absolute Auto 0.1 K/mm3 (0-0.3); Eosinophils Percent Auto 0.7 % (0-4.4); Hematocrit 34.3 % (42.0-52.0); Hemoglobin 11.5 g/dL (14.0-18.0); Immature Granulocyte Absolute 0.04 K/mm3 (0.00-0.031); Immature Granulocyte Percent A 0.5 % (0-0.5); Lymphocytes Absolute Auto 1.32 K/mm3 (0.9-3.2); Lymphocytes Percent Auto 15.6 % (18.3-44.2); Mean Corpuscular HGB Conc 33.5 g/dl (32-36); Mean Corpuscular Hemoglobin 31.7 pg (26-34); Mean Corpuscular Volume 94.5 fl (80-100); Mean Platelet Volume 9.6 fl (7.4-10.4); Monocytes Absolute Auto 0.8 K/mm3 (0.1-0.6); Monocytes Percent Auto 9.2 % (2.6-8.5); Neutrophils Absolute Auto 6.2 K/mm3 (1.3-6.7); Neutrophils Percent Auto 73.8 % (45.5-73.1); Platelet Count Result 118 k/mm3 (150-375); Red Blood Count 3.63 M/mm3 (4.6-6.20); Red Cell Distribution Width 13.4 % (11.5-14.5); White Blood Count 8.5 K/mm3 (4.5-10.0)
[2024-09-28 05:39] LABS: Alanine Aminotransferase 19 U/L (6-50); Albumin Level 3.3 g/dL (3.5-5.1); Alkaline Phosphatase 63 U/L (38-126); Anion Gap 2 mmol/L (4-12); Aspartate Amino Transferase 28 U/L (17-59); Blood Urea Nitrogen 13 mg/dL (9-20); Calcium 8.3 mg/dL (8.4-10.2); Carbon Dioxide 24 mmol/L (22-30); Chloride 108 mmol/L (98-107); Estimated CRCL calculation 85 ml/min; Estimated Glomerular Filt Rate > 60; Glucose 108 mg/dL (65-110); Potassium 3.5 mmol/L (3.4-5.0); Sodium 134 mmol/L (137-145)
[2024-09-28] MEDS: VANCOMYCIN 1,500 MG/NS 500 ML 1,500 MG/500 ML BAG 250 MG IVPB (06:49)
--- NOTE | 2024-09-28 07:07 | P.PNIM_ITS ---
Progress Note: A&P Assessment and Plan (1) Bacteremia: Code(s): R78.81 - Bacteremia Status: Acute Assessment and Plan: - lactic acid: 1.7 - s/p 2L NS bolus - suspected source: pneumonia - Antibiotics: Vanc, rocephin, and azithromycin started 09/27 - blood cultures drawn on 09/25: final - MRSA - repeat blood cultures 48 hours from antibiotic initiation on 09/29 - echo: LVEF 60-65% with grade II diastolic dysfunction and mild pulmonary hypertension. bioprosthetic aortic valve, if endocarditis suspected obtain a KELLEY. - UA unremarkable - CXR 09/25: Airspace opacities in right lower lung zone and left mid and lower lung zones, consistent with atelectasis versus pneumonia. Cardiomegaly. 09/28: Discussed patient with Dr. Gallego about need for KELLEY to further rule out endocarditis 2/2 staph bacteremia. Since patient has valve replacement he recommends moving forward with the KELLEY. He states that he will order the KELLEY. - patient to be NPO at midnight with plan for KELLEY tomorrow (2) Pneumonia: Code(s): J18.9 - Pneumonia, unspecified organism Status: Acute Assessment and Plan: CXR 09/25: Airspace opacities in right lower lung zone and left mid and lower lung zones, consistent with atelectasis versus pneumonia. Cardiomegaly. - Antibiotics: azithromycin ceftriaxone - Viral PCR: negative for Flu/COVID/RSV - Sputum culture ordered - no supplemental O2 requirement - Monitor vital signs, I&Os, neuro status and patient is a fall risk - Follow WBC, serum electrolytes, temperature curves and cultures (3) HTN (hypertension): Code(s): I10 - Essential (primary) hypertension Status: Acute Assessment and Plan: Chronic, currently holding home medications as patient was hypotensive on admission - Continue Metoprolol 25 mg BID - Holding Losartan 25 mg daily as patient was hypotensive, currently stable despite being off losartan - Monitor and resume as appropriate (4) MONIKA (obstructive sleep apnea): Code(s): G47.33 - Obstructive sleep apnea (adult) (pediatric) Status: Acute Assessment and Plan: Continue CPAP use Time Spent With Patient Time with patient: 25 - 35 minutes Subjective Date/time seen: 09/28/24 07:07 Interval history: 78 year old male with past medical history of hypertension, hyperlipidemia, GERD, MONIKA, and aortic aneurysm presents to the hospital after being called back for positive blood cultures on his 09/25 visit. On 09/25 patient reported to the ED for weakness,increased lethargy, and shortness of breath diagnosed with pneumonia and discharged on antibiotics. Patient is pleasant lying comfortably in bed. He has no complaints at this time denying chest pain, shortness of breath, nausea/vomiting and abdominal pain. Dr. Gallego present during assessment. Discussed patient with Dr. Gallego about need for KELLEY to further rule out endocarditis 2/2 staph bacteremia. Since patient has valve replacement he recommends moving forward with the KELLEY. He states that he will order the KELLEY for tomorrow. Patient NPO at midnight. Review of Systems Review of Systems: All systems reviewed & are unremarkable except as noted in HPI and below Exam Narrative: AF HR 79 RR 20 SpO2 95 BP 125/69 General: male in no acute respiratory distress who is nontoxic appearing, lying semi recumbent in bed. HEENT: Normocephalic. Atraumatic. Extraocular movement intact. Sclera clear and anicteric. No facial asymmetry. Chest: Lungs are clear to auscultation bilaterally. No wheezes or crackles. CV: Heart was regular rate and rhythm. S1/S2. No murmurs, gallops, or rubs. Abd: Abdomen was soft. Nontender. Nondistended. Positive bowel sounds. No organomegaly or masses. Ext: No clubbing, cyanosis, or edema. 2+ DP pulses bilaterally. Neuro: Speech is clear. Objective Data Vital Signs Vital Signs: Vital Signs - 24 hr 09/27/24 07:41 09/27/24 08:00 09/27/24 08:00 Temperature 99.4 F Pulse Rate 102 H 108 H Respiratory Rate 24 H Blood Pressure 142/84 H Pulse Oximetry 96 96 Oxygen Delivery Nasal Cannula Oxygen Flow Rate 1 Fraction of Inspired Oxygen 09/27/24 08:35 09/27/24 09:31 09/27/24 10:00 Temperature Pulse Rate 85 Respiratory Rate Blood Pressure Pulse Oximetry 96 97 Oxygen Delivery Room Air Nasal Cannula Oxygen Flow Rate 2 Fraction of Inspired Oxygen 21 28 09/27/24 12:00 09/27/24 12:00 09/27/24 12:00 Temperature 98.4 F Pulse Rate 75 74 Respiratory Rate 18 Blood Pressure 115/66 Pulse Oximetry 100 Oxygen Delivery Room Air Oxygen Flow Rate Fraction of Inspired Oxygen 09/27/24 14:00 09/27/24 16:00 09/27/24 16:00 Temperature Pulse Rate 87 95 Respiratory Rate Blood Pressure Pulse Oximetry Oxygen Delivery Room Air Oxygen Flow Rate Fraction of Inspired Oxygen 09/27/24 16:00 09/27/24 18:00 09/27/24 19:50 Temperature 99.3 F 99.1 F Pulse Rate 105 H 67 78 Respiratory Rate 20 24 H Blood Pressure 125/73 128/77 Pulse Oximetry 98 98 Oxygen Delivery Oxygen Flow Rate Fraction of Inspired Oxygen 09/27/24 20:00 09/27/24 20:00 09/27/24 20:13 Temperature Pulse Rate 91 97 Respiratory Rate Blood Pressure Pulse Oximetry Oxygen Delivery Room Air Oxygen Flow Rate Fraction of Inspired Oxygen 09/27/24 22:00 09/27/24 23:26 09/27/24 23:27 Temperature 99.2 F Pulse Rate 68 88 Respiratory Rate 16 Blood Pressure 120/82 Pulse Oximetry 95 Oxygen Delivery Room Air Oxygen Flow Rate Fraction of Inspired Oxygen 09/28/24 00:00 09/28/24 01:55 09/28/24 04:00 Temperature Pulse Rate 92 74 Respiratory Rate Blood Pressure Pulse Oximetry Oxygen Delivery Room Air Oxygen Flow Rate Fraction of Inspired Oxygen 09/28/24 04:00 09/28/24 04:36 09/28/24 06:00 Temperature 98.6 F Pulse Rate 76 59 L 77 Respiratory Rate 18 Blood Pressure 125/81 Pulse Oximetry 99 Oxygen Delivery Oxygen Flow Rate Fraction of Inspired Oxygen Intake/Output Intake/Output: Intake & Output 09/25/24 09/26/24 09/27/24 09/28/24 23:59 23:59 23:59 23:59 Intake Total 2300 2820 400 Output Total 1300 900 Balance 2300 1520 -500 Meds/Results Medications: Active Medications Generic Name Dose Route Start Last Admin Trade Name Freq PRN Reason Stop Dose Admin Acetaminophen 1,000 mg 09/27/24 04:21 09/28/24 00:36 Acetaminophen 500 Mg Tablet PO 1,000 mg Q6H PRN Administration pain Hydrocodone Bitart/Acetaminophen 1 tab 09/26/24 18:26 Hydrocodone/Acetaminophen (*Crx) 5-325 Mg Tablet PO Q4H PRN Pain Rated 4-6 Aspirin 81 mg 09/27/24 09:00 12/14/24 08:39 Aspirin 81 Mg Enteric Tablet PO 81 mg DAILY GINNA Administration Ceftriaxone Sodium 1 gm in 50 mls @ 100 mls/hr 09/27/24 12:00 09/27/24 13:02 Rocephin 1 Gm/Ns 50 Ml IVPB Infused Q24H GINNA Infusion Azithromycin 500 mg in 250 mls @ 250 mls/hr 09/27/24 12:00 09/27/24 13:31 Zithromax IVPB Infused Q24H GINNA Infusion Vancomycin HCl 1,500 mg in 500 mls @ 250 mls/hr 09/28/24 06:00 09/28/24 06:49 Vancomycin 1,500 Mg/Ns 500 Ml IVPB 250 mls/hr Q24H GINNA Administration Metoprolol Tartrate 25 mg 09/27/24 21:00 09/27/24 20:13 Metoprolol Tartrate 25 Mg Tablet PO 25 mg Q12HR GINNA Administration Morphine Sulfate 2 mg 09/26/24 18:26 Morphine Sulfate (*Crx) 2 Mg/Ml Inj IV PUSH Q2H PRN Pain Rated 7-10 Pantoprazole Sodium 40 mg 09/27/24 09:00 09/27/24 08:39 Pantoprazole 40 Mg Tablet PO 40 mg QAM GINNA Administration Perflutren Lipid Microsphere 0 ml 09/27/24 04:22 Perflutren Lipid Microspheres 1.5 Ml Vial Diluted To 10 Ml Total Volume IV PUSH 09/30/24 04:22 ONCE PRN adequate visualization Protocol Labs Labs: Laboratory Results - last 24 hr 09/27/24 09/28/24 07:23 04:56 WBC 8.8 8.5 RBC 3.60 L 3.63 L Hgb 11.6 L 11.5 L Hct 34.3 L 34.3 L MCV 95.3 94.5 MCH 32.2 31.7 MCHC 33.8 33.5 RDW 13.5 13.4 Plt Count 103 L 118 L MPV 9.9 9.6 Immature Gran % (Auto) 0.3 0.5 Neut % (Auto) 81.9 H 73.8 H Lymph % (Auto) 8.7 L 15.6 L [place] % (Auto) 8.8 H 9.2 H Eos % (Auto) 0.2 0.7 Baso % (Auto) 0.1 L 0.2 Lymph # (Auto) 0.77 L 1.32 [place] # (Auto) 0.8 H 0.8 H Eos # (Auto) 0.0 0.1 Baso # (Auto) 0.0 0.0 Abs Immat Gran (auto) 0.03 0.04 H Absolute Neuts (auto) 7.2 H 6.2 Absolute Nucleated RBC 0.000 0.000 Nucleated RBC % 0.0 0.0 % Immature Plt Fraction 2.1 Sodium 135 L 134 L Potassium 3.6 3.5 Chloride 108 H 108 H Carbon Dioxide 24 24 Anion Gap 3 L 2 L BUN 17 13 Creatinine 0.90 0.80 Estim Creat Clear Calc 76 85 Estimated GFR > 60 > 60 Glucose 106 108 Calcium 7.9 L 8.3 L Total Bilirubin 1.1 1.0 AST 27 28 ALT 17 19 Alkaline Phosphatase 60 63 Total Protein 6.0 L 6.0 L Albumin 3.2 L 3.3 L Quality VTE Prophylaxis VTE prophylaxis: mechanical ordered
[2024-09-28] MEDS: METOPROLOL TARTRATE 25 MG TABLET PO ×2 (08:29→20:40)
[2024-09-28] MEDS: PANTOPRAZOLE 40 MG TABLET PO (08:29)
[2024-09-28] MEDS: ASPIRIN 81 MG ENTERIC TABLET PO (08:29)
[2024-09-28] MEDS: AZITHROMYCIN 500 MG/NS 250 ML 500 MG/250 ML BAG 250 MG IVPB (12:48)
[2024-09-29] VITALS (17 sets, daily range): BP systolic 100–141; BP diastolic 54–84; PULSE 18–91; RESP 18–78; TEMP 36.7–38.3; O2SAT 94–99
[2024-09-29 05:28] LABS: Basophils Percent Auto 0.1 % (0.2-1.2); Eosinophils Absolute Auto 0.1 K/mm3 (0-0.3); Eosinophils Percent Auto 0.7 % (0-4.4); Hematocrit 32.7 % (42.0-52.0); Hemoglobin 11.2 g/dL (14.0-18.0); Immature Granulocyte Absolute 0.04 K/mm3 (0.00-0.031); Immature Granulocyte Percent A 0.5 % (0-0.5); Lymphocytes Absolute Auto 1.03 K/mm3 (0.9-3.2); Lymphocytes Percent Auto 13.4 % (18.3-44.2); Mean Corpuscular HGB Conc 34.3 g/dl (32-36); Mean Corpuscular Hemoglobin 31.9 pg (26-34); Mean Corpuscular Volume 93.2 fl (80-100); Mean Platelet Volume 9.1 fl (7.4-10.4); Monocytes Absolute Auto 0.8 K/mm3 (0.1-0.6); Monocytes Percent Auto 10.5 % (2.6-8.5); Neutrophils Absolute Auto 5.8 K/mm3 (1.3-6.7); Neutrophils Percent Auto 74.8 % (45.5-73.1); Platelet Count Result 129 k/mm3 (150-375); Red Blood Count 3.51 M/mm3 (4.6-6.20); Red Cell Distribution Width 13.4 % (11.5-14.5); White Blood Count 7.7 K/mm3 (4.5-10.0)
[2024-09-29 05:41] LABS: Alanine Aminotransferase 22 U/L (6-50); Albumin Level 3.2 g/dL (3.5-5.1); Alkaline Phosphatase 68 U/L (38-126); Anion Gap 5 mmol/L (4-12); Aspartate Amino Transferase 27 U/L (17-59); Blood Urea Nitrogen 11 mg/dL (9-20); Calcium 8.1 mg/dL (8.4-10.2); Carbon Dioxide 24 mmol/L (22-30); Chloride 106 mmol/L (98-107); Estimated CRCL calculation 84 ml/min; Estimated Glomerular Filt Rate > 60; Glucose 111 mg/dL (65-110); Potassium 3.3 mmol/L (3.4-5.0); Sodium 135 mmol/L (137-145)
[2024-09-29 05:58] LABS: Vancomycin Trough < 5.0 ug/mL (10.0-20.0)
[2024-09-29] MEDS: VANCOMYCIN 1,500 MG/NS 500 ML 1,500 MG/500 ML BAG 250 MG IVPB (07:58)
--- NOTE | 2024-09-29 09:12 | PM.IMPN ---
Progress Note: A&P Assessment and Plan (1) Bacteremia: Code(s): R78.81 - Bacteremia Status: Acute Assessment and Plan: - lactic acid: 1.7 - s/p 2L NS bolus - suspected source: pneumonia - Antibiotics: Vanc started on 09/27, transitioned to oral bactrim per culture sensitivities on 09/29 - blood cultures drawn on 09/25: final - MSSA - repeat blood cultures 48 hours from antibiotic initiation on 09/29: pending - echo: LVEF 60-65% with grade II diastolic dysfunction and mild pulmonary hypertension. bioprosthetic aortic valve, if endocarditis suspected obtain a KELLEY. - UA unremarkable - CXR 09/25: Airspace opacities in right lower lung zone and left mid and lower lung zones, consistent with atelectasis versus pneumonia. Cardiomegaly. 09/28: Discussed patient with Dr. Gallego about need for KELLEY to further rule out endocarditis 2/2 staph bacteremia. Since patient has valve replacement he recommends moving forward with the KELLEY. 09/29: Patient unable to have his KELLEY today. Spoke with Dr. Martinez and he is scheduled for tomorrow. Diet resumed, NPO at midnight. (2) Pneumonia: Code(s): J18.9 - Pneumonia, unspecified organism Status: Acute Assessment and Plan: CXR 09/25: Airspace opacities in right lower lung zone and left mid and lower lung zones, consistent with atelectasis versus pneumonia. Cardiomegaly. - Antibiotics: azithromycin ceftriaxone started on 09/26, transitioned to oral azithromycin and Augmentin on 09/29 - Viral PCR: negative for Flu/COVID/RSV - Sputum culture ordered - no supplemental O2 requirement - Monitor vital signs, I&Os, neuro status and patient is a fall risk - Follow WBC, serum electrolytes, temperature curves and cultures (3) HTN (hypertension): Code(s): I10 - Essential (primary) hypertension Status: Acute Assessment and Plan: Chronic, currently holding home medications as patient was hypotensive on admission - Continue Metoprolol 25 mg BID - Holding Losartan 25 mg daily as patient was hypotensive, currently stable despite being off losartan - Monitor and resume as appropriate (4) MONIKA (obstructive sleep apnea): Code(s): G47.33 - Obstructive sleep apnea (adult) (pediatric) Status: Acute Assessment and Plan: Continue CPAP use Time Spent With Patient Time with patient: 25 - 35 minutes Subjective Date/time seen: 09/29/24 09:12 Interval history: 78 year old male with past medical history of hypertension, hyperlipidemia, GERD, MONIKA, and aortic aneurysm presents to the hospital after being called back for positive blood cultures on his 09/25 visit. On 09/25 patient reported to the ED for weakness,increased lethargy, and shortness of breath diagnosed with pneumonia and discharged on antibiotics. Patient is pleasant lying comfortably in bed. He has no complaints denying chest pain, shortness of breath, nausea/vomiting and abdominal pain. Plan was to have a KELLEY today to rule out endocarditis however patient was not on the list. Spoke with Dr. Martinez and he is scheduled for tomorrow. Diet resumed, NPO at . Review of Systems Review of Systems: All systems reviewed & are unremarkable except as noted in HPI and below Exam Narrative: AF HR 71 RR 20 SpO2 97 BP 129/71 General: male in no acute respiratory distress who is nontoxic appearing, lying semi recumbent in bed. HEENT: Normocephalic. Atraumatic. Extraocular movement intact. Sclera clear and anicteric. No facial asymmetry. Chest: Lungs are clear to auscultation bilaterally. No wheezes or crackles. CV: Heart was regular rate and rhythm. S1/S2. No murmurs, gallops, or rubs. Abd: Abdomen was soft. Nontender. Nondistended. Positive bowel sounds. No organomegaly or masses. Ext: No clubbing, cyanosis, or edema. 2+ DP pulses bilaterally. Neuro: Speech is clear. Objective Data Vital Signs Vital Signs: Vital Signs - 24 hr 09/28/24 10:00 09/28/24 11:28 09/28/24 12:00 Temperature 99.7 F H Pulse Rate 91 79 Respiratory Rate 20 Blood Pressure 125/69 Pulse Oximetry 95 Oxygen Delivery Room Air 09/28/24 12:00 09/28/24 14:00 09/28/24 15:48 Temperature 98.2 F Pulse Rate 87 73 80 Respiratory Rate 18 Blood Pressure 136/82 Pulse Oximetry 98 Oxygen Delivery 09/28/24 16:00 09/28/24 16:00 09/28/24 18:00 Temperature Pulse Rate 73 78 Respiratory Rate Blood Pressure Pulse Oximetry Oxygen Delivery Room Air 09/28/24 20:00 09/28/24 20:00 09/28/24 20:00 Temperature 98.3 F Pulse Rate 79 76 Respiratory Rate 16 Blood Pressure 129/78 Pulse Oximetry 94 Oxygen Delivery Room Air 09/28/24 20:40 09/28/24 22:00 09/29/24 00:00 Temperature 98.4 F Pulse Rate 80 70 83 Respiratory Rate 18 Blood Pressure 137/63 Pulse Oximetry 97 Oxygen Delivery 09/29/24 00:00 09/29/24 00:00 09/29/24 02:00 Temperature Pulse Rate 77 72 Respiratory Rate Blood Pressure Pulse Oximetry Oxygen Delivery Room Air 09/29/24 04:00 09/29/24 04:00 09/29/24 04:00 Temperature 100.9 F H Pulse Rate 71 90 Respiratory Rate 20 Blood Pressure 120/78 Pulse Oximetry 94 Oxygen Delivery Room Air 09/29/24 05:49 09/29/24 07:40 Temperature 98.1 F Pulse Rate 89 85 Respiratory Rate Blood Pressure 141/84 H Pulse Oximetry 99 Oxygen Delivery Intake/Output Intake/Output: Intake & Output 09/26/24 09/27/24 09/28/24 09/29/24 23:59 23:59 23:59 23:59 Intake Total 2300 2820 2920 475 Output Total 1300 2350 600 Balance 2300 1520 570 -125 Meds/Results Medications: Active Medications Generic Name Dose Route Start Last Admin Trade Name Freq PRN Reason Stop Dose Admin Acetaminophen 1,000 mg 09/27/24 04:21 09/28/24 12:53 Acetaminophen 500 Mg Tablet PO 1,000 mg Q6H PRN Administration pain Hydrocodone Bitart/Acetaminophen 1 tab 09/26/24 18:26 Hydrocodone/Acetaminophen (*Crx) 5-325 Mg Tablet PO Q4H PRN Pain Rated 4-6 Aspirin 81 mg 09/27/24 09:00 09/28/24 08:29 Aspirin 81 Mg Enteric Tablet PO 81 mg DAILY GINNA Administration Ceftriaxone Sodium 1 gm in 50 mls @ 100 mls/hr 09/27/24 12:00 09/28/24 13:20 Rocephin 1 Gm/Ns 50 Ml IVPB Infused Q24H GINNA Infusion Azithromycin 500 mg in 250 mls @ 250 mls/hr 09/27/24 12:00 09/28/24 14:20 Zithromax IVPB Infused Q24H GINNA Infusion Vancomycin HCl 1,500 mg in 500 mls @ 250 mls/hr 09/29/24 07:00 09/29/24 07:58 Vancomycin 1,500 Mg/Ns 500 Ml IVPB 250 mls/hr Q12H GINNA Administration Metoprolol Tartrate 25 mg 09/27/24 21:00 09/28/24 20:40 Metoprolol Tartrate 25 Mg Tablet PO 25 mg Q12HR GINNA Administration Morphine Sulfate 2 mg 09/26/24 18:26 Morphine Sulfate (*Crx) 2 Mg/Ml Inj IV PUSH Q2H PRN Pain Rated 7-10 Pantoprazole Sodium 40 mg 09/27/24 09:00 09/28/24 08:29 Pantoprazole 40 Mg Tablet PO 40 mg QAM GINNA Administration Perflutren Lipid Microsphere 0 ml 09/27/24 04:22 Perflutren Lipid Microspheres 1.5 Ml Vial Diluted To 10 Ml Total Volume IV PUSH 09/30/24 04:22 ONCE PRN adequate visualization Protocol Labs Labs: Laboratory Results - last 24 hr 09/29/24 05:14 WBC 7.7 RBC 3.51 L Hgb 11.2 L Hct 32.7 L MCV 93.2 MCH 31.9 MCHC 34.3 RDW 13.4 Plt Count 129 L MPV 9.1 Immature Gran % (Auto) 0.5 Neut % (Auto) 74.8 H Lymph % (Auto) 13.4 L Gillespie % (Auto) 10.5 H Eos % (Auto) 0.7 Baso % (Auto) 0.1 L Lymph # (Auto) 1.03 Gillespie # (Auto) 0.8 H Eos # (Auto) 0.1 Baso # (Auto) 0.0 Abs Immat Gran (auto) 0.04 H Absolute Neuts (auto) 5.8 Absolute Nucleated RBC 0.000 Nucleated RBC % 0.0 Sodium 135 L Potassium 3.3 L Chloride 106 Carbon Dioxide 24 Anion Gap 5 BUN 11 Creatinine 0.80 Estim Creat Clear Calc 84 Estimated GFR > 60 Glucose 111 H Calcium 8.1 L Total Bilirubin 1.0 AST 27 ALT 22 Alkaline Phosphatase 68 Total Protein 6.0 L Albumin 3.2 L Vancomycin Trough < 5.0 L Quality VTE Prophylaxis VTE prophylaxis: mechanical ordered
[2024-09-29] MEDS: METOPROLOL TARTRATE 25 MG TABLET PO ×2 (09:42→20:42)
[2024-09-29] MEDS: PANTOPRAZOLE 40 MG TABLET PO (09:43)
[2024-09-29] MEDS: ASPIRIN 81 MG ENTERIC TABLET PO (09:43)
[2024-09-29] MEDS: POTASSIUM CHLORIDE 20 MEQ ER TABLET 40 MEQ PO (09:45)
[2024-09-29] MEDS: AZITHROMYCIN 500 MG/NS 250 ML 500 MG/250 ML BAG 250 MG IVPB (13:06)
[2024-09-29] MEDS: SULFAMETHOXAZOLE/TRIMETHOPRIM 800/160 MG DS TABLET 2 TAB PO (20:42)
--- OUTSIDE RECORDS SUMMARY | 2024-09-29 22:08 | XMS_ITS | Encounter Summary ---
Author Organization [facility] Healthcare Address [address] [place] [address] Care Team Providers Care Medical Radiation Therapist Name Role Phone Kali Reddy MD Unavailable Keaton Lynn MD Unavailable Radha Lozada MD Primary Care Provider [phone] Reason for Visit * Auth/Cert (Routine) Specialty Diagnoses / Procedures Referred By Contac t Referred To Contact Diagnoses Atrial fibrillation, new onset (CMS/HCC) (HCC) Atrial fibrillation, new onset (CMS/HCC) (HCC) [I48.91] Procedures OK PERQ CLSR TCAT L ATR APNDGE W/ENDOCARDIAL IMPLNT OK ECHO JOVI GUID TCAT ICAR/VESSEL STRUCTURAL INTVN PERC ELROY CLOSE W/IMPLANT [id number] Referral ID Status Reason Start Date Expiration Date Visits Re quested Visits Authorized [id number] 1 1 Encounter Details Date Type Department Care Team (Latest Contact Info) Description 10/23/2023 7:51 AM TRIM SETTER - 10/23/2023 3:36 PM TRIM SETTER Hospital Encounter [facility] [address] [place] [address] Nicolas Smith MD [address] [facility] [address] [place] [address] Atrial fibrillation, new onset (CMS/HCC) (HCC) Discharge Disposition: Discharge to home or self care Social History Tobacco Use Types Packs/Day Years Used Date Smoking Tobacco: Never Smokeless Tobacco: Never Alcohol Use Standard Drinks/Week Comments Yes 0 (1 standard drink = 0.6 oz pur e alcohol) Socially Social Connection and Isolat ion Panel [NHANES] Answer Date Recorded In a typical week, how many times do you talk on the phone with family, friends, or neighbors? More than three times a week 07/30/2023 How often do you get togethe r with friends or relatives? More than three times a week 07/30/2023 How often do you attend chur ch or restoration services? More than 4 times per year 07/30/2023 Do you belong to any clubs o r organizations such as alevism groups, unions, fraternal or athletic groups, or school groups? Yes 07/30/2023 How often do you attend meet ings of the clubs or organizations you belong to? More than 4 times per year 07/30/2023 Are you , , di vorced, , never , or living with a partner? 07/30/2023 AUDIT-C Answer Date Recorded Q1: How often do you have a drink containing alc ohol? 2-4 times a month 07/10/2023 Q2: How many drinks containi ng alcohol do you have on a typical day when you are drinking? 1 or 2 07/10/2023 Q3: How often do you have si x or more drinks on one occasion? Less than monthly 07/10/2023 Overall Financial Resource Strain (CARDIA) Answe r Date Recorded How hard is it for you to pa y for the very basics like food, housing, medical care, and heating? Not hard at all 07/30/2023 Hunger Vital Sign Answer Date Recorded Within the past 12 months, y ou worried that your food would run out before you got the money to buy more. Never true 07/30/20 23 Within the past 12 months, t he food you bought just didn't last and you didn't have money to get more. Never true 07/30/2023 PRAPARE - Transportation Answer Date Re corded In the past 12 months, has l ack of transportation kept you from medical appointments or from getting medications? No 07/15 In the past 12 months, has l ack of transportation kept you from meetings, work, or from getting things needed for daily living? No 07/30/2023 Housing Stability Vital Sign Answer Madan e Recorded In the last 12 months, was t here a time when you were not able to pay the mortgage or rent on time? No 07/30/2023 In the last 12 months, how many places have you lived? 1 07/30/2023 In the last 12 months, was t here a time when you did not have a steady place to sleep or slept in a custodial (including now)? No 07/30/2023 Personal Safety Answer Date Recorded Getting School Help Needed Denies 10/04 Sex and Gender Information Value Date Recorded Sex Assigned at Not on file Legal Sex Male 12:03 PM TRIM SETTER Gender Identity Not on file Sexual Orientation Not on file documented as of this encounter Last Filed Vital Signs Vital Sign Reading Time Taken Comments Blood Pressure 131/79 10/23/2023 3:29 PM TRIM SETTER Pulse 84 10/23/2023 3:29 PM TRIM SETTER Temperature 36.2 ??C (97.2 ??F) 10/23/2023 1 1:52 AM TRIM SETTER Respiratory Rate 18 10/23/2023 2:30 PM TRIM SETTER Oxygen Saturation 96% 10/23/2023 3:29 PM TRIM SETTER Inhaled Oxygen Concentration - - Weight 108.3 kg (238 lb 12.1 oz) 10/23/2023 9:58 AM TRIM SETTER Height 182.9 cm (6') 10/23/2023 9:58 AM TRIM SETTER Body Mass Index 32.38 10/23/2023 9:58 AM TRIM SETTER documented in this encounter Discharge Instructions * Discharge Instructions* Melina Bai RN - 10/23/2023 2:55 PM TRIM SETTER Cardiac Laboratory [facility] [place], [place] [address] [facility] Discharge Instructions---Angiogram MEDICATIONS [] Do not take Metformin or medications containing Metformin (for example: Glucophage, Glyburide orGlucovance) for the next 48 hours. Resume taking your medication on [] Home Medications Returned [x] Discharge Medication Reconciliation Reviewed [] Prescriptions sent home with patient and instructions given for usage [] ANTIBIOTICS What you Should Know Information provided and reviewed. [] Your physician has prescribed Aspirin and an anti-platelet therapy medication such as Plavix, Brilinta, Effient. - These medications act as a blood thinner. Take the medications as your physician has prescribed; this will help prevent a blood clot from forming in your artery. - Do not stop taking these medications for any reason without discussing with your casino accountant first. - These medications may make you bruise or bleed easier than normal. PROCEDURE SITE CARE [x] You may shower in 24 hours. Remove the bandage prior to showering. [x] DO NOT submerge your incision site in water. This includes pools, tub baths, lakes, pierson, ponds and hot tubs. You may shower only for the next 5 days (no baths). [x] Gently clean the procedure site using only soap and water. [x] DO NOT apply any kind of powder or lotion to the site [x] Make sure to dry the site thoroughly as wetness can lead to infection. DIET [x] Increase your intake of fluids (non-alcoholic). Drink 1/2 liter of fluids over the next 12 hours. [x] Resume home diet [] Special diet Instructed by Practice Managers ACTIVITY You have been given medications which helped make you comfortable during your procedure. The relaxing effects of these medications may continue for the rest of the day. For your safety: [x] Do not drive or operate hazardous machinery for the next 24 hours [x] Do not make important personal or business decision or sign legal documentation for the next 24hours. [x] Resume normal activity in 5 days. [x] No heavy pushing, pulling, or lifting more than 10 pounds for the next five days or until the procedure site has been healed. [x] Refrain from vigorous stair climbing or walking more than two blocks for the next five days. [x] No sexual activity for the next five days. SPECIAL INSTRUCTIONS After your procedure, it is normal to have mild soreness/tenderness at the procedure site. Some discoloration and /or bruising may occur at the puncture site region over the next 2-3 days Please notify your physician immediately if you develop any of the following: [x] Significant bleeding at the procedure site. If bleeding occurs, lie down, apply firm pressure to the site and call 911. [x] The leg on which your procedure was performed begins to swell, feel numb, weak or cold [x] Signs of infection which may include: - fever or chills - drainage from the procedure site - redness/warm to the touch at the procedure site [x] You start having signs of a heart attack which may include: - pain in your chest, arms, jaw or back -trouble catching your breath -feeling sick to your stomach -feeling sweaty FOLLOW UP CARE [] Call physician's office for appointment [] Appointment scheduled for with Additional Instructions: I understand and have received a copy of my discharge instructions Patient/Family Signature: Staff Signature/Title: Date and Time: Cardiac Laboratory [address] [place], [place] [address] [facility] Discharge Instructions---Angiogram MEDICATIONS [] Do not take Metformin or medications containing Metformin (for example: Glucophage, Glyburide orGlucovance) for the next 48 hours. Resume taking your medication on [] Home Medications Returned [x] Discharge Medication Reconciliation Reviewed [] Prescriptions sent home with patient and instructions given for usage [] ANTIBIOTICS What you Should Know Information provided and reviewed. [] Your physician has prescribed Aspirin and an anti-platelet therapy medication such as Plavix, Brilinta, Effient. - These medications act as a blood thinner. Take the medications as your physician has prescribed; this will help prevent a blood clot from forming in your artery. - Do not stop taking these medications for any reason without discussing with your casino accountant first. - These medications may make you bruise or bleed easier than normal. PROCEDURE SITE CARE [x] You may shower in 24 hours. Remove the bandage prior to showering. [x] DO NOT submerge your incision site in water. This includes pools, tub baths, lakes, pierson, ponds and hot tubs. You may shower only for the next 5 days (no baths). [x] Gently clean the procedure site using only soap and water. [x] DO NOT apply any kind of powder or lotion to the site [x] Make sure to dry the site thoroughly as wetness can lead to infection. DIET [x] Increase your intake of fluids (non-alcoholic). Drink 1/2 liter of fluids over the next 12 hours. [x] Resume home diet [] Special diet Instructed by Practice Managers ACTIVITY You have been given medications which helped make you comfortable during your procedure. The relaxing effects of these medications may continue for the rest of the day. For your safety: [x] Do not drive or operate hazardous machinery for the next 24 hours [x] Do not make important personal or business decision or sign legal documentation for the next 24hours. [x] Resume normal activity in 5 days. [x] No heavy pushing, pulling, or lifting more than 10 pounds for the next five days or until the procedure site has been healed. [x] Refrain from vigorous stair climbing or walking more than two blocks for the next five days. [x] No sexual activity for the next five days. SPECIAL INSTRUCTIONS After your procedure, it is normal to have mild soreness/tenderness at the procedure site. Some discoloration and /or bruising may occur at the puncture site region over the next 2-3 days Please notify your physician immediately if you develop any of the following: [x] Significant bleeding at the procedure site. If bleeding occurs, lie down, apply firm pressure to the site and call 911. [x] The leg on which your procedure was performed begins to swell, feel numb, weak or cold [x] Signs of infection which may include: - fever or chills - drainage from the procedure site - redness/warm to the touch at the procedure site [x] You start having signs of a heart attack which may include: - pain in your chest, arms, jaw or back -trouble catching your breath -feeling sick to your stomach -feeling sweaty FOLLOW UP CARE [] Call physician's office for appointment [] Appointment scheduled for with Additional Instructions: I understand and have received a copy of my discharge instructions Patient/Family Signature: Staff Signature/Title: Date and Time: SETTER documented in this encounter Medications at Time of Discharge acetaminophen (TylenoL) 325 mg tablet Take 2 tablets (650 mg total) by mouth every 6 (six) hours as needed for pain aspirin 81 mg enteric coated tablet Take 1 tablet (81 mg total) by mouth daily 30 tablet 11 07/15/[address] (PROTONIX) 40 mg EC tabletIndications :Mucositis Prophylaxis Take 1 tablet (40 mg total) by mouth 2 (two) times a day 60 tablet 07/31/2023 atorvastatin (LIPITOR) 40 mg tablet Take 1 tablet (40 mg total) by mouth daily 90 tablet 07/25/2023 11/20/2023 metoprolol tartrate (LOPRESSOR) 25 mg immediate release tablet Take 1 tablet (25 mg total) by mouth 2 (two) times a day 180 tablet 3 10/23/2023 08/22/2024 documented as of this encounter Ordered Prescriptions Prescription Sig Dispense Quantity Refills Last Filled Start Date End Date clopidogreL (PLAVIX) 75 mg tablet Take 1 tablet (75 mg total) by mouth daily 30 tablet 11 10/23/2023 10/23/2023 documented in this encounter Discharge Disposition Disposition Code Departure Means Destination Comment s Discharge to home or self care documented in this encounter Progress Notes * Nicolas Smith MD - 10/23/2023 9:13 AM CST [facility] [address] [address] Cardiology MD Kali Mckeon MD Robert Kopitsky, MD David Sewall, MD Adam Shpigel, MD Johnny Maher, MD Osmin Barbosa, MD Best Ramirez, MD Nicolas Smith, MD Everardo Briscoe, DO Javon Lopez, MD Rroy Dowling, MD Clyde Stovall, FAST FOOD WORKER Erin Monk, FAST FOOD WORKER Beth Smith, FAST FOOD WORKER Patient Name: Omar Nolasco Provider: MEAGHAN Stout : 1945 Date of Service: 08/16/2023 Referring: MD Neville CHIEF COMPLAINT: Hospital follow-up HISTORY OF PRESENT ILLNESS: 77 y.o. male with a history of aortic aneurysm status post root replacement on 07/10/[address] Lynn, he was discharged home on 07/14, history of hypertension, sleep apnea on CPAP, and was recently hospitalized with syncopal episode and found to have severe GI bleed and atrial fibrillation. He is here in clinic for follow-up. He was hospitalized from 07/27-07/31 following 2 syncopal episodes likely related to severe GI bleed as initial hemoglobin was 5.5 on presentation. He underwent GI evaluation with treated duodenal ulcer. He was also found to have new onset atrial fibrillation he was not placed on anticoagulation due to severe bleeding and planning for expedited Watchman procedure. Echocardiogram on 08/03/2023 demonstrated normal LV function, EF 60%, and normal RV function, normal function bioprosthetic aortic valve. 07/31: Sodium 138, potassium 3.6, creatinine 0.79, H/H 7.6/24.6. Had follow-up with Dr. Lynn today. Planning for chest CTA next year Today, he reports he overall has been feeling well. He was feeling stronger and denying any complaints of chest pain or discomfort. Did have some occasional dyspnea but this has since subsided as well. Denies any recurrent bleeding. MEDICATIONS: Current Outpatient Medications: acetaminophen (TylenoL) 325 mg tablet, Take 2 tablets (650 mg total) by mouth every 6 (six) hours as needed for pain, Disp: , Rfl: aspirin 81 mg enteric coated tablet, Take 1 tablet (81 mg total) by mouth daily, Disp: 30 tablet, Rfl: 11 atorvastatin (LIPITOR) 40 mg tablet, Take 1 tablet (40 mg total) by mouth daily, Disp: 90 tablet, Rfl: 0 metoprolol tartrate (LOPRESSOR) 25 mg immediate release tablet, Take 1 tablet (25 mg total) by mouth 2 (two) times a day, Disp: 30 tablet, Rfl: [address] (PROTONIX) 40 mg EC tablet, Take 1 tablet (40 mg total) by mouth 2 (two) times a day, Disp: 60 tablet, Rfl: 0 REVIEW OF SYSTEMS: General: No fever, chills, malaise or fatigue Eyes: No alterations in visual acuity ENT: No alterations in auditory acuity, no sore throat Pulmonary: No dyspnea, cough or hemoptysis Cardiac: No chest pain, orthopnea, PND or palpitations GI: No nausea, vomiting, diarrhea or constipation Musculoskeletal: No myalgias or arthralgias Skin: no rashes Neuro: No headaches, parathesias or focal neurological complaints Endocrine: No cold or heat intolerance Heme: no excessive bleeding or bruising PHYSICAL EXAM: BP 120/74 (BP Location: Right arm, Patient Position: Sitting) Pulse 67 Ht 182.9 cm (6') Wt 106.1 kg (234 lb) SpO2 98% BMI 31.74 kg/m?? Body mass index is 31.74 kg/m??. General: Well appearing, No pain or distress, well nourished Eyes: SYBIL/EOMI, Conjuctiva Clear ENT: External ears/nose normal Neck: Supple Respiratory: Clear to ausculation bilaterally; no wheezing/rales/rhonchi; respirations nonlabored Cardiovascular: RRR, normal S1 and S2. No S3 or S4. No murmurs or rubs. Carotid upstrokes brisk bilaterally and without bruits. Gastrointestinal: soft, non-tender abdomen Extremities: no cyanosis or clubbing or edema Musculoskeletal: no obvious joint deformities Skin: no obvious rash or bruising Psychiatric: normal affect Neurologic: awake/alert, no focal deficits ASSESSMENT & PLAN: Diagnoses and all orders for this visit: Atrial fibrillation, new onset (CMS/HCC) (HCC) (Primary) Assessment & Plan: Maintaining normal sinus rhythm on physical exam. Denying any complaints of palpitations, recurrentlightheadedness/dizziness or syncope. Not able to anticoagulate due to acute GI bleed and planning for Watchman implant on 10/[address] Smith. We discussed this and aftercare, continue aspirin and b eta-riya. Orders: - Basic metabolic panel; Future - CBC with auto differential; Future Aneurysm of ascending aorta without rupture (HCC) Assessment & Plan: Status post repair with Dr. Lynn. Was seen in clinic this morning. Planning for chest CTA next year. Hypercholesterolemia Assessment & Plan: Continue atorvastatin. Acute blood loss anemia Assessment & Plan: Denies any recurrence. Will recheck CBC. Orders: - CBC with auto differential; Future This note was dictated with voice-recognition software, cone machine operator errors may be present. Erin Monk NP SETTER documented in this encounter Miscellaneous Notes * Post-Procedure Note - Nicolas Smith MD - 10/23/2023 11:39 AM CST Images from the original note were not included. [facility] Cardiology [address] [place] [address], [address] [place] [address], [id number] Watchman Left Atrial Appendage Occluder Placement Procedure Report 78 year old male with atrial fibrillation with elevated CHADSVASC score and elevated bleeding risk referred for Watchman device. Attending physicians: Nicolas Smith MD Access:8F RFV ->14F for device placement Catheter:Pigtail Injection:Left atrial appendage Closure:Perclose Anticoagulation:[id number] Heparin Air Kerma:115 mGy Fluoro time:5.2 min Contrast:36 ml Optiray Sedation:general per anesthesia Procedural details: After risks, benefits, and alternatives to the procedure were explained to the patient, they agreedto proceed. After signing informed consent the patient was brought to the cardiac catheterization laboratory/hybrid OR. They were prepped and draped in sterile fashion. General anesthesia was used. Jovi guidance was the provided by Dr. Reddy. A 6F sheath was inserted into the right femoral vein using the modified Seldinger technique, micropuncture access, and ultrasound guidance. We then advanced the Versacross catheter and wire. We then performed transseptal puncture using this system and JOVI guidance. We confirmed appropriate height for the Watchman system. We advanced the catheter across the intra-atrial septum and advanced the wire into the left superior pulmonary vein. Heparin was administered to achieve an ACT greater than 300. Using the stiff wire as a rail, we then advanced the Watchman sheath into the left atrium. Left atrial pressure was 15mm Hg. We removed the stiff wire and then advanced the pigtail catheter into the left atrial appendage. We maneuvered the sheath into the appendage, and performed angiography as well. Baseline width of the appendage was 16mm. We then advanced a 24mm Watchman FLX device and deployed it using JOVI and fluoroscopic guidance in the ELROY ostium. Post deployment measurements were taken,with 20-36% compression. There was 0mm leak visualized by JOVI or angiography. We satisfied PASS criteria and the device was released with excellent positioning. The system was removed and the access site was closed with the perclose sutures. Final JOVI showed well seated device and a small iatrogenic ASD (inherent to the procedure). There was no pericardial effusion noted at end of case. Patient was extubated and transferred to the PACU for further monitoring and care. A/P: Successful Watchman FLX procedure with 24mm device deployed. Continue optimal medical therapy.Further management per the cardiology and medicine teams. Nicolas Smith MD 10/23/23 11:39 AM SETTER documented in this encounter Plan of Treatment Not on file documented as of this encounter Procedures Procedure Name Priority Date/Time Associated Diagnosis Comments JOVI GUIDANCE DURING CARDIAC STRUCTURAL INTVN [id number] Routine 10/23/2023 12:07 PM TRIM SETTER Atrial fibrillation, new onset (CMS/HCC) (HCC) PERC ELROY CLOSURE W/IMPLANT (WATCHMAN) [id number] Routine 10/23/2023 11:43 AM TRIM SETTER Atrial fibrillation, new onset (CMS/HCC) (HCC) POCT ACTIVATED CLOTTING TIME, LOW RANGE Routine 10/23/2023 11:22 AM TRIM SETTER ECG 12-LEAD STAT 10/23/2023 9:47 AM TRIM SETTER Atrial fibrillation, new onset (CMS/HCC) (HCC) TYPE AND SCREEN STAT 10/23/2023 9:44 AM TRIM SETTER Atrial fibrillation, new onset (CMS/HCC) (HCC) documented in this encounter Results * JOVI Guidance During Cardiac [place] Int[place] [id number] (10/23/2023 12:07 PM TRIM SETTER) Anatomical Region Laterality Modality Echocardiography 10/23/2023 11:0 4 AM TRIM SETTER Narrative 10/23/2023 12:16 PM TRIM SETTER [facility] [address] [place] [address] TRANSESOPHAGEAL ECHOCARDIOGRAM Patient Name: OMAR NOLASCO : 1945 Study Date: 10/23/2023 11:04:22 AM Gender: M Tech: NILSA Location: 6152 Ref Provider: NICOLAS SMITH ?Height(Cm): 183 BSA: ??Weight(Kg): 107.96 Order Provider: NICOLAS SMITH PROCEDURES: Transesophageal Echo Report: Transesophageal echocardiogram including 2D imaging, spectral doppler and color doppler was performed in the cardiac catheterization laboratory to support a structural procedure. The procedure was monitored with automatic blood pressure monitoring, ECG tracings, and pulse oximetry. Sedation was achieved by anesthesia using Propofol IV. The transesophageal probe was placed in the esophagus posterior to the heart without any complications. The patient tolerated the procedure well. INDICATIONS: Percutaneous left atrial appendage occlusion. Measurements: FINDINGS: BP: Blood pressure: 143/93 mmHg. Left Ventricle: Grossly normal left ventricular systolic function based on limited views. Inadequate for detailed regional wall motion assessment. Ejection Fraction is estimated at 60- 65 %. Roughly normal left ventricular cavity size. Marked concentric left ventricular hypertrophy. Right Ventricle: Normal right ventricular size. Normal right ventricular systolic function. Left Atrium: Not well visualized. LA Appendage: No ELROY thrombus seen. During the case a left atrial appendage occlusion device was deployed in the left atrial appendage. It appears well-seated. There is no color Doppler flow around the device. Right Atrium: There is borderline enlargement of the right atrium. Atrial Septum: Normal atrial septum at the start of the case. During the case atrial septostomy was performed resulting in an iatrogenic ASD at the end of the case. Predominant flow is [id number]. Mitral Valve: Grossly normal appearing mitral valve. Trace mitral valve regurgitation. There is no evidence for significant mitral stenosis. Aortic Valve: There is no aortic regurgitation. No aortic stenosis. Normal functioning bioprosthetic aortic valve. Tricuspid Valve: Normal appearance of the tricuspid valve. TR envelope inadequate to estimate RVSP. There is trace or mild tricuspid regurgitation. Pulmonic Valve: Grossly normal appearing pulmonic valve. No pulmonic stenosis. No evidence of pulmonic regurgitation. Pericardium: No pericardial effusion. Aorta: The aortic root and ascending aorta have been replaced by graft material. Normal aortic root size. Normal size descending thoracic aorta. Ascending aorta is normal in size. Pulmonary Artery: Not well visualized. CONCLUSIONS: 1. Grossly normal left ventricular systolic function based on limited views. Inadequate for detailed regional wall motion assessment. Ejection Fraction is estimated at 60-65 %. Roughly normal left ventricular cavity size. Marked concentric left ventricular hypertrophy. 2. Normal right ventricular size. Normal right ventricular systolic function. 3. Normal atrial septum at the start of the case. During the case atrial septostomy was performed resulting in an iatrogenic ASD at the end of the case. Predominant flow is [id number]. 4. There is no aortic regurgitation. No aortic stenosis. Normal functioning bioprosthetic aortic valve. 5. The aortic root and ascending aorta have been replaced by graft material. Normal aortic root size. Normal size descending thoracic aorta. Ascending aorta is normal in size. 6. No ELROY thrombus seen. During the case a left atrial appendage occlusion device was deployed in the left atrial appendage. It appears well-seated. There is no color Doppler flow around the device. Electronically Signed By: Kali Reddy MD 2023-10-23 12:15:29 TRIM SETTER CC: ??Nicolas Smith MD Procedure Note Kali Reddy MD - 10/23/2023 [facility] [address] [place] [address] TRANSESOPHAGEAL ECHOCARDIOGRAM Patient Name: OMAR NOLASCO : 1945 Study Date: 10/23/2023 11:04:22 AM Gender: M Tech: NILSA Location: 6152 Ref Provider: NICOLAS SMITH Height(Cm): 183 BSA: Weight(Kg): 107.96 Order Provider: NICOLAS SMITH PROCEDURES: Transesophageal Echo Report: Transesophageal echocardiogram including 2D imaging, spectral doppler andcolor doppler was performed in the cardiac catheterization laboratory to support astructural procedure. The procedure was monitored with automatic blood pressuremonitoring, ECG tracings, and pulse oximetry. Sedation was achieved by anesthesia usingPropofol IV. The transesophageal probe was placed in the esophagus posterior to the heartwithout any complications. The patient tolerated the procedure well. INDICATIONS: Percutaneous left atrial appendage occlusion. Measurements: FINDINGS: BP: Blood pressure: 143/93 mmHg. Left Ventricle: Grossly normal left ventricular systolic function based on limited views.Inadequate for detailed regional wall motion assessment. Ejection Fraction is estimatedat 60-65 %. Roughly normal left ventricular cavity size. Marked concentric leftventricular hypertrophy. Right Ventricle: Normal right ventricular size. Normal right ventricular systolicfunction. Left Atrium: Not well visualized. LA Appendage: No ELROY thrombus seen. During the case a left atrial appendage occlusiondevice was deployed in the left atrial appendage. It appears well-seated. There is nocolor Doppler flow around the device. Right Atrium: There is borderline enlargement of the right atrium. Atrial Septum: Normal atrial septum at the start of the case. During the case atrialseptostomy was performed resulting in an iatrogenic ASD at the end of the case.Predominant flow is [id number]. Mitral Valve: Grossly normal appearing mitral valve. Trace mitral valve regurgitation.There is no evidence for significant mitral stenosis. Aortic Valve: There is no aortic regurgitation. No aortic stenosis. Normal functioningbioprosthetic aortic valve. Tricuspid Valve: Normal appearance of the tricuspid valve. TR envelope inadequate toestimate RVSP. There is trace or mild tricuspid regurgitation. Pulmonic Valve: Grossly normal appearing pulmonic valve. No pulmonic stenosis. No evidenceof pulmonic regurgitation. Pericardium: No pericardial effusion. Aorta: The aortic root and ascending aorta have been replaced by graft material.Normal aortic root size. Normal size descending thoracic aorta. Ascending aorta isnormal in size. Pulmonary Artery: Not well visualized. CONCLUSIONS: 1. Grossly normal left ventricular systolic function based on limitedviews. Inadequate for detailed regional wall motion assessment. Ejection Fraction isestimated at 60-65 %. Roughly normal left ventricular cavity size. Marked concentric leftventricular hypertrophy. 2. Normal right ventricular size. Normal right ventricular systolicfunction. 3. Normal atrial septum at the start of the case. During the case atrialseptostomy was performed resulting in an iatrogenic ASD at the end of the case.Predominant flow is [id number]. 4. There is no aortic regurgitation. No aortic stenosis. Normalfunctioning bioprosthetic aortic valve. 5. The aortic root and ascending aorta have been replaced by graftmaterial. Normal aortic root size. Normal size descending thoracic aorta. Ascending aortais normal in size. 6. No ELROY thrombus seen. During the case a left atrial appendage occlusiondevice was deployed in the left atrial appendage. It appears well-seated. There is nocolor Doppler flow around the device. Electronically Signed By: Kali Reddy MD 2023-10-23 12:15:29 TRIM SETTER CC: Nicolas Smith MD us Nicolas Smith MD CV ECHO PROCEDURES Final Result * PERC ELROY CLOSURE W/IMPLANT (WATCHMAN) [id number] (10/23/2023 11:43 AM TRIM SETTER) Anatomical Region Laterality Modality X-Ray Angiograph y Narrative 10/23/2023 11:48 AM TRIM SETTER Images from the original result were not included. [facility] Cardiology ?? [address] [place] [address], [address] [place] [address] ?? [place], [place], [address] ?? Watchman Left Atrial Appendage Occluder Placement Procedure Report 78 year old male with atrial fibrillation with elevated CHADSVASC score and elevated bleeding risk referred for Watchman device. Attending physicians: ??Nicolas Smith MD Access:8F RFV ->14F for device placement Catheter:Pigtail Injection:Left atrial appendage Closure:Perclose Anticoagulation:72618Nnpig Heparin Air Kerma:115 mGy Fluoro time:5.2 min Contrast:36 ml Optiray Sedation:general per anesthesia Procedural details: After risks, benefits, and alternatives to the procedure were explained to the patient, they agreed to proceed. ??After signing informed consent the patient was brought to the cardiac catheterization laboratory/hybrid OR. ?? They were prepped and draped in sterile fashion. General anesthesia was used. ??Jovi guidance was the provided by Dr. Reddy. A 6F sheath was inserted into the right femoral vein using the modified Seldinger technique, micropuncture access, and ultrasound guidance. ??We then advanced the Versacross catheter and wire. ??We then performed transseptal puncture using this system and JOVI guidance. ??We confirmed appropriate height for the Watchman system. ??We advanced the catheter across the intra-atrial septum and advanced the wire into the left superior pulmonary vein. ??Heparin was administered to achieve an ACT greater than 300. Using the stiff wire as a rail, we then advanced the Watchman sheath into the left atrium. ??Left atrial pressure was 15mm Hg. ??We removed the stiff wire and then advanced the pigtail catheter into the left atrial appendage. ??We maneuvered the sheath into the appendage, and performed angiography as well. ??Baseline width of the appendage was 16mm. ??We then advanced a 24mm Watchman FLX device and deployed it using JOVI and fluoroscopic guidance in the ELROY ostium. ??Post deployment measurements were taken, with 20-36% compression. ??There was 0mm leak visualized by JOVI or angiography. ??We satisfied PASS criteria and the device was released with excellent positioning. The system was removed and the access site was closed with the perclose sutures. ??Final JOVI showed well seated device and a small ??iatrogenic ASD (inherent to the procedure). ??There was no pericardial effusion noted at end of case. ??Patient was extubated and transferred to the PACU for further monitoring and care. A/P: ??Successful Watchman FLX procedure with 24mm device deployed. ?? Continue optimal medical therapy. ??Further management per the cardiology and medicine teams. Nicolas Smith MD 10/23/23 11:39 AM us Nicolas Smith MD CV ELECTROPHYSIOLOGY PROCS Final Result * (ABNORMAL) POCT Activated clotting time, low range (10/23/2023 11:22 AM TRIM SETTER) ACT 373(H) 123 - 168 sec [facility] Blood 10/23/2023 11:2 2 AM TRIM SETTER 10/23/2023 11:22 AM TRIM SETTER us Nicolas Smith MD LAB POCT ORDERABLES - DEVICE Fin al Result Performing Organization Address [facility] de Phone Number [facility] [address] [place] [address] * ECG 12 lead (10/23/2023 9:47 AM TRIM SETTER) 10/23/2023 9:47 AM TRIM SETTER Narrative [facility] - 10/23/2023 2:13 PM TRIM SETTER Vent Rate: 63 bpm RR Interval: 943 msec OK Interval: 161 msec QRS Duration: 108 msec QT Interval: 426 msec QTC Interval: 434 msec P-R-T [place]: 26 - -54 - 79 degrees IMPRESSION: SINUS RHYTHM WITH OCCASIONAL SUPRAVENTRICULAR PREMATURE COMPLEXES LEFT ANTERIOR FASCICULAR BLOCK ??[QRS AXIS <= -45, QR IN I, RS IN II] NONSPECIFIC T-WAVE ABNORMALITY ABNORMAL ECG Electronically Signed By: Osmin Barbosa MD us Nicolas Smith MD ECG ORDERABLES Final Result Performing Organization Address [facility] Phone Number [facility] [employer] [facility] * Type and screen (10/23/2023 9:44 AM TRIM SETTER) [place], indirect Negative ABO Rh O Positive [facility] Blood 10/23/2023 9:44 AM TRIM SETTER 10/23/2023 10:08 AM TRIM SETTER Narrative [facility] - 10/23/2023 11:10 AM TRIM SETTER Has the patient had Daratumumab or Isatuximab in the past 6 months?->Unknown us Nicolas Smith MD LAB BLOOD BANK TEST ORDERABLES F inal Result Performing Organization Address [facility] Co de Phone Number [facility] [address] [place] [address] documented in this encounter Visit Diagnoses Diagnosis Atrial fibrillation, new onset (CMS/HCC) (HCC)- Primary Atrial fibrillation, new onset (CMS/HCC) (HCC) documented in this encounter Admitting Diagnoses Diagnosis Atrial fibrillation, new onset (CMS/HCC) (HCC) documented in this encounter Administered Medications Inactive Administered Medications - up to 3 most recent administrations Medication Order MAR Action Action Date Dose Rate Site sodium chloride 0.9% infusion 15 mL/hr, intravenous, Continuous, Starting on Sun10/23/23 at 1015, Pre-Procedure (CV)Indications:Atrial fibrillation, new onset (CMS/HCC) (HCC) Restarted 10/23/2023 11:57 AM TRIM SETTER New Bag 10/23/2023 10:49 AM TRIM SETTER 50 mL/hr documented in this encounter Active and Recently Administered Medications Times are shown in TRIM SETTER. Continuous Medication Order 2023 10/22/2023 10/23/2023 sodium chloride 0.9% infusion 15 mL/hr, intravenous, Continuous, Starting on Sun10/23/23 at 1015, Pre-Procedure (CV) 1049 (New Bag - Prov ider: Danica Rooney CRNA)1156 (Paused - Provider: Danica Rooney CRNA - Comment: Switch to gravity)1157 (Restarted - Provider: Danica Rooney CRNA)1936 (Due: Stopped) PRN Medication Order 2023 10/22/2023 10/23/2023 heparin in 0.9% sodium chloride 1,000 units/500 mL (2 unit/mL) infusion (premix) (CANCELED) Code/trauma/sedation medication, Starting on Sun10/23/23 at 1100, Intra-Procedure (CV) 1100 (Given - Provid er: Nicolas Smith MD - Comment: Back table flush)1100 (Given - Provider: Nicolas Smith MD - Comment: Back table flush)1100 (Given - Provider: Nicolas Smith MD - Comment: Back table flush) ioversoL (OPTIRAY 350) injection (CANCELED) Code/trauma/sedation medication, Starting on Sun10/23/23 at 1135, Intra-Procedure (CV) 1135 (Given - Provid er: Nicolas Smith MD) lidocaine-EPINEPHrine (XYLOCAINE with EPI) 2 %-1:200,000 preservative free injection (CANCELED) Code/trauma/sedation medication, Starting on Sun10/23/23 at 1135, Intra-Procedure (CV), Indications: Administration of Local Anesthesia 1135 (Given - Provid er: Nicolas Smith MD) documented in this encounter Orders Medications Ordered That Jorge ht Not Have Been Administered Count Last Ordered Date First Ordered Date albuterol 2.5 mg /3 mL (0.08 3 %) nebulizer solution 2.5 mg 1 10/23/2023 dextrose (D10W) 10% bolus 250 mL 10/23/19 dextrose (GLUTOSE) 40 % gel 15 g 10/23/19 diphenhydrAMINE (BENADRYL) 5 0 mg/mL injection 12.5 mg 10/23/2023 fentaNYL (SUBLIMAZE) preserv ative free injection 25 mcg 10/23/2023 fentaNYL (SUBLIMAZE) preserv ative free injection 50 mcg 10/23/2023 glucagon injection 1 mg 10/23/2023 haloperidol (HALDOL) injection 1 mg 10/23 heparin in 0.9% sodium chlor allyson 1,000 units/500 mL (2 unit/mL) infusion (premix) 10/23/2023 insulin lispro (HumaLOG, ADM ELOG) 100 unit/mL injection 0-5 Units 10/23/2023 ioversoL (OPTIRAY 350) injection 10/23/19 labetaloL (NORMODYNE,TRANDAT E) injection 5 mg 10/23/2023 lidocaine-EPINEPHrine (XYLOC SOL with EPI) 2 %-1:200,000 preservative free injection 10/23/2023 meperidine (DEMEROL) preserv ative free injection 12.5 mg 10/23/2023 naloxone (NARCAN) 0.4 mg/mL injection 0.04-0.4 mg 10/23/2023 ondansetron (ZOFRAN) injection 4 mg 10/23 racepinephrine (ASTHMANEFRIN ) 2.25 % nebulizer solution 0.5 mL 10/23/2023 sodium chloride 0.9% infusion 1 10/23/2023 Discharge Count Last Ordered Date First Orde red Date DISCHARGE PATIENT 1 10/23/2023 documented in this encounter Care Teams Medical Radiation Therapist Relationship Specialty Start Date End Date Radha Lozada MD [address] [place] [address] PCP - General Family Medicine 06/25/23 04/29/24 Kali Reddy MD Consulting Physician Cardiology 05/19/19 Keaton Lynn MD [address] [facility] [address] [place] [address] Consulting Physician Cardiothoracic Surgery 06/07/23 documented as of this encounter
--- OUTSIDE RECORDS SUMMARY | 2024-09-29 22:08 | XMS_ITS | Encounter Summary ---
Author Organization [facility] Healthcare Address [address] [place] [address] Care Team Providers Care Substation Operator Automatic Name Role Phone Kali Reddy MD Unavailable [phone] Keaton Lynn MD Unavailable [phone] Gabby Li NP Primary Care Provider [phone] Reason for Referral * MRI/CAT/PET Scan (Routine) - Closed Specialty Diagnoses / Procedures Referred By Contac t Referred To Contact Radiology Diagnoses Aneurysm of ascending aorta without rupture (HCC) Procedures CTA Chest W WO Contrast CTA Chest W Contrast Kali Reddy MD [address], [place] [address] Phone: tel: fax: [facility] [address] [place] [address] Referral ID Status Reason Start Date Expiration Date Visits Re quested Visits Authorized [id number] Closed 06/06/2023 07/05/2024 1 1 Reason for Visit * MRI/CAT/PET Scan (Routine) - Closed Specialty Diagnoses / Procedures Referred By Contac t Referred To Contact Radiology Diagnoses Aneurysm of ascending aorta without rupture (HCC) Procedures CTA Chest W WO Contrast CTA Chest W Contrast Kali Reddy MD [address] [place] [address] Phone: tel: fax: [facility] [address] [place] [address] Referral ID Status Reason Start Date Expiration Date Visits Re quested Visits Authorized [id number] Closed 06/06/2023 07/05/2024 1 1 Encounter Details Date Type Department Care Team (Latest Contact Info) Description 05/26/2024 12:51 PM CDT - 05/26/2024 11:59 PM CDT Hospital Encounter [facility] - Imaging [address] [place] [address] Aneurysm of ascending aorta without rupture (HCC) Discharge Disposition: Discharge to home or [...] often do you attend chur ch or hindu services? More than 4 times per year 07/30/2023 Do you belong to any clubs o r organizations such as religious groups, unions, fraternal or athletic groups, or school groups? Yes 07/30/2023 How often do you attend meet ings of the clubs or organizations you belong to? More than 4 times per year 07/30/2023 Are you , , di vorced, , never , or living with a partner? 07/30/2023 AUDIT-C Answer Date Recorded Q1: How often do you have a drink containing alc ohol? Monthly or less 11/01/2023 Q2: How many drinks containi ng alcohol do you have on a typical day when you are drinking? 1 or 2 11/01/2023 Q3: How often do you have si x or more drinks on one occasion? Never 11/01/2023 Overall Financial Resource Strain (CARDIA) Answe r [...] place to sleep or slept in a snf (including now)? No 07/30/2023 Personal Safety Answer Date Recorded Have you ever been in or are you currently in a harmful physical or emotional relationship or is someone making you feel afraid or unsafe? 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 05/26/2024 02/02/2038 aspirin 81 mg enteric coated tablet Take 1 tablet (81 mg total) by mouth daily 30 tablet 11 07/15/2023 atorvastatin (LIPITOR) 40 mg tablet Take 1 tablet (40 mg total) by mouth daily 90 tablet 3 11/20/2023 losartan (COZAAR) 25 mg tablet Take 1 tablet (25 mg total) by mouth daily 90 tablet 3 05/26/2024 05/26/2025 metoprolol tartrate (LOPRESSOR) 25 mg immediate release tablet Take 1 tablet (25 mg total) by mouth 2 (two) times a day 180 tablet 3 10/23/2023 08/22/2024 documented as of this encounter Discharge Disposition Disposition Code Departure Means Destination Discharge to home or self care documented in this encounter Plan of Treatment Not on file documented as of this encounter Procedures Procedure Name Priority Date/Time Associated Diagnosis Comments CTA CHEST W WO CONTRAST Schedule Routine, Read Routine (OP Routine) 05/26/2024 1:55 PM CDT Aneurysm of ascending aorta without rupture (HCC) documented in this encounter Results * CTA Chest W WO Contrast (05/26/2024 1:55 PM CDT) Anatomical Region Laterality Modality Chest N/A Computed Tomogra phy 05/27/2024 9:22 AM CDT Impressions 05/27/2024 9:23 AM CDT Stable postsurgical changes of aortic valve replacement and composite type ascending aorta repair with modified Bentall coronary artery reimplantation. ?? Dictated by: Enio Wright MD The radiology attending physician has personally reviewed this study, and had reviewed and/or edited this written report and agrees with it. Electronically signed by: Alo Varghese MD, PHD Narrative 05/27/2024 9:23 AM CDT EXAMINATION: CTA CHEST W WO CONTRAST HISTORY: ??Ascending aortic aneurysm status post open repair on 07/10/2023 TECHNIQUE: ??Transaxial computed tomographic images of the chest, abdomen and pelvis were obtained with intravenous contrast according to the angiographic protocol after the uneventful administration of 95 mL Opti-Ray 350. Images were transferred to an independent workstation for additional 3-D postprocessing. COMPARISON: CTA chest 06/06/2023, 07/27/2023 FINDINGS: Postsurgical changes of aortic valve replacement with composite type ascending aorta repair with modified Bentall coronary artery reimplantation. ??There is near resolution of postoperative soft tissue stranding around the repair with only trace residual nonorganized fluid in the mediastinum. ??Well approximated sternal plates without evidence of dehiscence. ??The ostia of the coronary arteries are widely patent. ??Mild calcified atherosclerotic disease involving the left coronary system. ??No pulmonary embolism. Non vascular findings: No pulmonary consolidation, pleural effusion or pneumothorax. ??5 mm pulmonary nodule in the right lung apex is unchanged dating back to 2017 compatible with benignity. ??Left bruno-fissural nodule in the left lower lobe is also unchanged (series 10 image 189). ??Additional calcified pulmonary nodules in keeping with old granulomatous disease. ??No new or enlarging pulmonary nodules. ??Bilateral pleural calcified plaques are seen compatible with asbestos exposure. ??Mild atelectasis in lung bases. No intrathoracic lymphadenopathy. ??Heart size is normal. ??No pericardial effusion. ??Left atrial appendage excluder device. Images of the upper abdomen are noncontributory. Right adrenal myelolipoma unchanged. Procedure Note Alo Varghese MD PhD - 05/27/2024 EXAMINATION: CTA CHEST W WO CONTRAST HISTORY: Ascending aortic aneurysm status post open repair on 07/10/2023 TECHNIQUE: Transaxial computed tomographic images of the chest, abdomen and pelvis were obtained with intravenous contrast according to the angiographic protocol after the uneventful administration of 95 mL Opti-Ray 350. Images were transferred to an independent workstation for additional 3-D postprocessing. COMPARISON: CTA chest 06/06/2023, 07/27/2023 FINDINGS: Postsurgical changes of aortic valve replacement with composite type ascending aorta repair with modified Bentall coronary artery reimplantation. There is near resolution of postoperative soft tissue stranding around the repair with only trace residual nonorganized fluid in the mediastinum. Well approximated sternal plates without evidence of dehiscence. The ostia of the coronary arteries are widely patent. Mild calcified atherosclerotic disease involving the left coronary system. No pulmonary embolism. Non vascular findings: No pulmonary consolidation, pleural effusion or pneumothorax. 5 mm pulmonary nodule in the right lung apex is unchanged dating back to 2017 compatible with benignity. Left bruno-fissural nodule in the left lower lobe is also unchanged (series 10 image 189). Additional calcified pulmonary nodules in keeping with old granulomatous disease. No new or enlarging pulmonary nodules. Bilateral pleural calcified plaques are seen compatible with asbestos exposure. Mild atelectasis in lung bases. No intrathoracic lymphadenopathy. Heart size is normal. No pericardial effusion. Left atrial appendage excluder device. Images of the upper abdomen are noncontributory. Right adrenal myelolipoma unchanged. IMPRESSION: Stable postsurgical changes of aortic valve replacement and composite type ascending aorta repair with modified Bentall coronary artery reimplantation. Dictated by: Enio Wright MD The radiology attending physician has personally reviewed this study, and had reviewed and/or edited this written report and agrees with it. Electronically signed by: Alo Varghese MD, PHD Kali Reddy MD IMG CT PROCEDURES Final Re sult documented in this encounter Visit Diagnoses Diagnosis Aneurysm of ascending aorta without rupture (HCC) documented in this encounter Administered Medications Inactive Administered Medications - up to 3 most recent administrations Medication Order MAR Action Action Date Dose Rate Site ioversoL (OPTIRAY 350) syringe 100 mL 100 mL, intravenous, Once in imaging, contrast, Starting on 05/26/24 at 1338, For 1 dose Contrast Given 05/26/2024 1:38 PM CDT 95 mL documented in this encounter Orders Medications Ordered That Jorge ht Not Have Been Administered Count Last Ordered Date First Ordered Date ioversoL (OPTIRAY 350) syringe 100 mL 1 09/2024 documented in this encounter Care Teams Substation Operator Automatic Relationship Specialty Start Date End Date Gabby Li NP [address] [address] PCP - General Family Medicine 04/30/24 Kali Reddy MD Consulting Physician Cardiology 05/19/19 Keaton Lynn MD [address] [facility] [address] [place] [address] Consulting Physician Cardiothoracic Surgery 06/07/23 documented as of this encounter
--- OUTSIDE RECORDS SUMMARY | 2024-09-29 22:08 | XMS_ITS | Encounter Summary ---
Author Organization [facility] Address [address] [place] [address] Care Team Providers Care Architectural Project Captain Name Role Phone Kali Reddy MD Unavailable Keaton Lynn MD Unavailable [phone] Radha Lozada MD Primary Care Provider [phone] Reason for Visit * Reason Comments Valve Disorder Encounter Details Date Type Department Care Team (Late st Contact Info) Description 08/16/2023 10:30 AM CDT Office Visit [facility] Cardiology [address] [place] [address] Erin Cobian, ALEX [address] [facility] [address] [place] [address] Atrial fibrillation, new onset (CMS/HCC) (HCC) (Primary Dx); Aneurysm of ascending aorta without rupture (HCC); Hypercholesterolemia; Acute blood loss anemia Social History Tobacco Use Types Packs/Day Years [...] often do you attend chur ch or sikh services? More than 4 times per year 07/30/2023 Do you belong to any clubs o r organizations such as pentecostal groups, unions, fraternal or athletic groups, or [...] place to sleep or slept in a intermediate (including now)? 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 Gender Identity Not on file Sexual Orientation Not on file documented as of this encounter Last Filed Vital Signs Vital Sign Reading Time Taken Comments Blood Pressure 120/74 08/16/2023 11:51 AM CDT Pulse 67 08/16/2023 11:51 AM CDT Temperature - - Respiratory Rate - - Oxygen Saturation 98% 08/16/2023 11:51 AM CDT Inhaled Oxygen Concentration - - Weight 106.1 kg (234 lb) 08/16/2023 11:51 AM CDT Height 182.9 cm (6') 08/16/2023 11:51 AM CDT Body Mass Index 31.74 08/16/2023 11:51 AM CDT documented in this encounter Progress Notes * Erin Monk, TRESTLE MAINTERNANCE LABORER - 08/16/2023 10:30 AM CDT [facility] Cardiology [address] [address] Cardiology Yariel Hills, MD Kali Reddy, MD Wellington Dugan, MD Parish Monae, MD Kilo Sims, MD Johnny Maher, MD Osmin Barbosa, MD Best Ramirez, MD Nicolas Golden, MD Everardo Briscoe, DO Javon Lopez, MD Rory Dowling, MD Clyde Stovall, TRESTLE MAINTERNANCE LABORER Erin Monk, TRESTLE MAINTERNANCE LABORER Beth Smith, TRESTLE MAINTERNANCE LABORER Patient Name: Omar Adam Provider: MEAGHAN Stout : 1945 Date of [...] for Watchman implant on 10/[address] Golden. We discussed this and aftercare, continue aspirin [...] This note was dictated with voice-recognition software, motor equipment lieutenant errors may be present. Erin Monk NP Cosigned by Kali Reddy MD at 08/16/2023 2:17 PM CDT documented in this encounter Miscellaneous Notes * Assessment & Plan Note - Erin Monk NP - 08/16/2023 12:25 PM CDT Associated Problem(s): Atrial fibrillation, new onset (CMS/HCC) (HCC) (Deleted) Maintaining normal sinus rhythm on physical exam. Denying any complaints of palpitations, recurrentlightheadedness/dizziness or syncope. Not able to anticoagulate due to acute GI bleed and planning for Watchman implant on 10/[address] Golden. We discussed this and aftercare, continue aspirin and b eta-riya. * Assessment & Plan Note - Erin Monk NP - 08/16/2023 12:24 PM CDT Associated Problem(s): Hypercholesterolemia Continue atorvastatin. * Assessment & Plan Note - Erin Monk NP - 08/16/2023 12:24 PM CDT Associated Problem(s): Acute blood loss anemia Denies any recurrence. Will recheck CBC. * Assessment & Plan Note - Erin Monk NP - 08/16/2023 12:24 PM CDT Associated Problem(s): Ascending aortic aneurysm (HCC) Status post repair with Dr. Lynn. Was seen in clinic this morning. Planning for chest CTA next year. documented in this encounter Plan of Treatment Scheduled Orders Name Type Priority Associated Diagnoses Orde r Schedule Basic metabolic panel Lab Routine Atrial fibrillation, new onset (CMS/HCC) (HCC) Expected: 08/16/2023, Expires: 08/16/2024 CBC with auto differential Lab Routine Atrial fibrillation, new onset (CMS/HCC) (HCC) Acute blood loss anemia Expected: 08/16/2023, Expires: 08/16/2024 documented as of this encounter Visit Diagnoses Diagnosis Atrial fibrillation, new onset (CMS/HCC) (HCC)- Primary Aneurysm of ascending aorta without rupture (HCC) Hypercholesterolemia Pure hypercholesterolemia Acute blood loss anemia Acute posthemorrhagic anemia documented in this encounter Care Teams Architectural Project Captain Relationship Specialty Start Date End Date Radha Lozada MD [facility] [place] [address] PCP - General Family Medicine 06/25/23 04/29/24 Kali Reddy MD Consulting Physician Cardiology 05/19/19 Keaton Lynn MD [address] [facility] [address] [place] [address] Consulting Physician Cardiothoracic Surgery 06/07/23 documented as of this encounter
--- OUTSIDE RECORDS SUMMARY | 2024-09-29 22:08 | XMS_ITS | Data Portability ---
Author Organization [facility] [employer] Main Office Address [address] [place] [address] Assessment No assessment recorded. Plan of Treatment Reminders Order Date Submit Date Provider Last Modified By Organization Details Last Modified Time Details Appointments None recorded. Lab rapid flu (A+B) [address], [place], [address], 12:51:29 rsv (respirator y syncytial virus), rapid, nasopharyng eal [address], [place], [address], 4 12:53:47 Referral None recorded. Procedures None recorded. Surgeries None recorded. Imaging None recorded. Medication Orders levofloxaci n 750 mg tablet 2023 [facility] [id number], [address], [place], [address], 4 12:46:43 promethazin e-DM 6.25 mg-15 mg/5 mL oral syrup 2023 [facility] [address], [address], [place], [address], 4 12:47:13 Patient TargetsNo targets recorded. Patient Instructions Encounter Date Encounter Id Patient Instructions Last Modified By Organization Details Last Modified Time 02/05/2024 [id number] advised getting a Covid test [email or web address] Not available 02/13/2024 10:25:12 Reason for Referral None Reported. Results Created Date Observation Date Name Description Value Unit Range Abnormal Flag Note LastModifiedBy Organization Detail LastModifiedTime 01/25/20 21 01/24/2021 PSA, total , serum or plasm a PSA, total 1.05 NG/mL 0.00-4 .00 Not Available [facility] (Lab) [address] [place], [address], 01/24/2021 13:57:38 01/25/20 21 01/24/2021 hepat ic funct ion panel , serum alkaline phosphatase 61 U/L 38-126 Not Available [facility] (Lab) [address] [place], [address], 01/24/2021 13:27:48 01/25/20 21 01/24/2021 hepat ic funct ion panel , serum alanine aminotransfe rase 20 U/L 0-50 Not Available [facility] (Lab) [address] [place], [address], 01/24/2021 13:27:48 01/25/20 21 01/24/2021 hepat ic funct ion panel , serum aspartate aminotransfe rase 30 U/L 15-46 Not Available [facility] (Lab) [address] [place], [address], 01/24/2021 13:27:48 01/25/20 21 01/24/2021 hepat ic funct ion panel , serum bilirubin, total 1.00 mg/dL 0.20-1 .30 Not Available [facility] (Lab) [address] [place], [address], 01/24/2021 13:27:48 01/25/20 21 01/24/2021 hepat ic funct ion panel , serum bilirubin, conjugated (direct) 0.00 mg/dL 0.00-0 .30 Not Available [facility] (Lab) [address] [place], [address], 01/24/2021 13:27:48 01/25/20 21 01/24/2021 hepat ic funct ion panel , serum biliurubin,u ncong. (indirect) 0.80 mg/dL 0.00-1 .1 Not Available [facility] (Lab) [address] [place], [address], 01/24/2021 13:27:48 01/25/20 21 01/24/2021 hepat ic funct ion panel , serum total protein 6.8 g/dL 6.3-8. 2 Not Available [facility] (Lab) [address] [place], [address], 01/24/2021 13:27:48 01/25/20 21 01/24/2021 hepat ic funct ion panel , serum albumin 4.2 g/dL 3.0-4. 4 Not Available [facility] (Lab) [address] [place], [address], 01/24/2021 13:27:48 01/25/20 21 01/24/2021 hepat ic funct ion panel , serum globulin 2.6 g/dL 2.6-4. 2 Not Available [facility] (Lab) [address] [place], [address], 01/24/2021 13:27:48 01/25/20 21 01/24/2021 hepat ic funct ion panel , serum A/G ratio 1.6 ratio 1.0-2. 0 Not Available [facility] (Lab) [address] [place], [address], 01/24/2021 13:27:48 01/25/20 21 01/24/2021 BMP, serum or plasm a sodium 138 mmol/ L 137-14 5 Not Available [facility] (Lab) [address] [place], [address], 01/24/2021 13:27:44 01/25/20 21 01/24/2021 BMP, serum or plasm a potassium 4.6 mmol/ L 3.5-5. 1 Not Available [facility] (Lab) [address] [place], [address], 01/24/2021 13:27:44 01/25/20 21 01/24/2021 BMP, serum or plasm a chloride 105 mmol/ L 98-107 Not Available [facility] (Lab) [address] [place], [address], 01/24/2021 13:27:44 01/25/20 21 01/24/2021 BMP, serum or plasm a carbon dioxide 26 mmol/ L 22-30 Not Available [facility] (Lab) [address] [place], [address], 01/24/2021 13:27:44 01/25/20 21 01/24/2021 BMP, serum or plasm a agap 11.6 mmol/ L 14-22 low Not Available [facility] (Lab) [address] [place], [address], 01/24/2021 13:27:44 01/25/20 21 01/24/2021 BMP, serum or plasm a glucose 87 mg/dL 70-99 Not Available [facility] (Lab) [address] [place], [address], 01/24/2021 13:27:44 01/25/20 21 01/24/2021 BMP, serum or plasm a BUN 19 mg/dL 8-19 Not Available [facility] (Lab) [address] [place], [address], 01/24/2021 13:27:44 01/25/20 21 01/24/2021 BMP, serum or plasm a creatinine 0.90 mg/dL 0.66-1 .25 Not Available [facility] (Lab) [address] [place], [address], 01/24/2021 13:27:44 01/25/20 21 01/24/2021 BMP, serum or plasm a GFR >60 Refer ence Range : Hart ge GFR Healt hy Adult : >60 [...] serum creat inine relat ed to nutri beingno l statu s o r medic ation usage hasn' t accou nted for the MDRD Study equat ion. For perso ns < 18 yrs of age, a pedia tric GFR calcu lator can be locat ed on the [facility] websi te: https ://tessy w.gage mireles.o rg/pr ofess ional s/kdo qi/gf r_cal culat or Not Available [facility] (Lab) [address] [place], [address], 01/24/2021 13:27:44 01/25/20 21 01/24/2021 BMP, serum or plasm a calcium 9.4 mg/dL 8.4-10 .2 Not Available [facility] (Lab) [address] [place], [address], 01/24/2021 13:27:44 01/25/20 21 01/24/2021 lipid panel , serum cholesterol 111 mg/dL 140-19 9 low NIH ELIAZAR NSUS RECOM MENDA TION FOR JUAN STERO L: ADULT CHILD LOW RISK: <200 <170 BORDE RLINE : <200- 239 ----- HIGH RISK: >240 >200 Not Available [facility] (Lab) [address] [place], [address], 01/24/2021 13:27:39 01/25/20 21 01/24/2021 lipid panel , serum triglyceride s 99 mg/dL 0-150 NIH ELIAZAR NSUS REPOR T RECOM MENDA TION FOR TRIGL YCERI KATHERIN: ADULT CHILD LOW RISK: <150 ----- BODER LINE: 150-1 99 ----- HIGH RISK: >200 ----- Not Available [facility] (Lab) [address] [place], [address], 01/24/2021 13:27:39 01/25/2001/24/2021 lipid panel , serum HDL cholesterol 37 mg/dL 40- low Not Available [facility] (Lab) [address] [place], [address], 01/24/2021 13:27:39 01/25/2001/24/2021 lipid panel , serum [...] WILL NOT BE REPOR LAUREEN. Not Available [facility] (Lab) [address] [place], [address], 01/24/2021 13:27:39 01/25/20 21 01/24/2021 urina lysis , dipst ick Leukocytes (reference range: negative ann/??l) Negati ve Not Available [facility] [address] , [address], [place], [address], 01/24/2021 09:53:16 01/25/20 21 01/24/2021 urina lysis , dipst ick Nitrite (reference rage: negative mg/dl) negati ve Not Available [address] , [address], [place], [address], 01/24/2021 09:53:16 01/25/20 21 01/24/2021 urina lysis , dipst ick Urobilinogen (reference range: 0.2-1 mg/dl) 0.2 Not Available [address] , [address], [place], [address], 01/24/2021 09:53:16 01/25/20 21 01/24/2021 urina lysis , dipst ick Protein (reference range: negative mg/dl) Negati ve Not Available [address] , [address], [place], [address], 01/24/2021 09:53:16 01/25/2001/24/2021 urina lysis , dipst ick pH (reference range: 5-7) 6.0 Not Available [address] , [address], [place], [address], 01/24/2021 09:53:16 01/25/2001/24/2021 urina lysis , dipst ick Blood (reference range: negative Nimesh/??l) Non-He molyze d: Trace Not Available [address] , [address], [place], [address], 01/24/2021 09:53:16 01/25/20 21 01/24/2021 urina lysis , dipst ick Specific Welch (reference range: 1.005-1.030) 1.025 Not Available [address] , [address], [place], [address], 01/24/2021 09:53:16 01/25/20 21 01/24/2021 urina lysis , dipst ick Ketone (reference range: negative mg/dl) Negati ve Not Available [address] , [address], [place], [address], 01/24/2021 09:53:16 01/25/2001/24/2021 urina lysis , dipst ick Bilirubin (reference range: negative mg/dl) Negati ve Not Available [address] , [address], [place], [address], 01/24/2021 09:53:16 01/25/2001/24/2021 urina lysis , dipst ick Glucose (reference range: negative mg/dl) Negati ve Not Available [address] , [address], [place], [address], 01/24/2021 09:53:16 01/25/2001/24/2021 urina lysis , dipst ick Appearance Clear Not Available [address] , [address], [place], [address], 01/24/2021 09:53:16 01/25/2001/24/2021 urina lysis , dipst ick Color Yellow Not Available [address] , [address], [place], [address], 01/24/2021 09:53:16 07/17/2007/17/2022 PSA, TOTAL PSA, total 1.23 NG/mL 0.00-4 .00 Not Available [facility] (Lab) [address] [place], [address], 07/17/2022 13:49:45 07/17/20 22 07/17/2022 HEPAT IC/LI SHANNON PANEL alkaline phosphatase 60 U/L 38-126 Not Available [facility] (Lab) [address] [place], [address], 07/17/2022 13:11:13 07/17/2007/17/2022 HEPAT IC/LI SHANNON PANEL alanine aminotransfe rase 18 U/L 0-50 Not Available [facility] (Lab) [address] [place], [address], 07/17/2022 13:11:13 07/17/2007/17/2022 HEPAT IC/LI SHANNON PANEL aspartate aminotransfe rase 25 U/L 15-46 Not Available [facility] (Lab) [address] [place], [address], 07/17/2022 13:11:13 07/17/20 22 07/17/2022 HEPAT IC/LI SHANNON PANEL bilirubin, total 1.10 mg/dL 0.20-1 .30 Not Available [facility] (Lab) [address] [place], [address], 07/17/2022 13:11:13 07/17/20 22 07/17/2022 HEPAT IC/LI SHANNON PANEL bilirubin, conjugated (direct) 0.00 mg/dL 0.00-0 .30 Not Available [facility] (Lab) [address] [place], [address], 07/17/2022 13:11:13 07/17/20 22 07/17/2022 HEPAT IC/LI SHANNON PANEL biliurubin,u ncong. (indirect) 1.00 mg/dL 0.00-1 .1 Not Available [facility] (Lab) [address] [place], [address], 07/17/2022 13:11:13 07/17/20 22 07/17/2022 HEPAT IC/LI SHANNON PANEL total protein 7.1 g/dL 6.3-8. 2 Not Available [facility] (Lab) [address] [place], [address], 07/17/2022 13:11:13 07/17/20 22 07/17/2022 HEPAT IC/LI SHANNON PANEL albumin 4.3 g/dL 3.0-4. 4 Not Available [facility] (Lab) [address] [place], [address], 07/17/2022 13:11:13 07/17/2007/17/2022 HEPAT IC/LI SHANNON PANEL globulin 2.8 g/dL 2.6-4. 2 Not Available [facility] (Lab) [address] [place], [address], 07/17/2022 13:11:13 07/17/2007/17/2022 HEPAT IC/LI SHANNON PANEL A/G ratio 1.5 ratio 1.0-2. 0 Not Available [facility] (Lab) [address] [place], [address], 07/17/2022 13:11:13 07/17/20 22 07/17/2022 LIPID PANEL cholesterol 107 mg/dL 140-19 9 low NIH ELIAZAR NSUS RECOM MENDA TION FOR JUAN STERO L: ADULT CHILD LOW RISK: <200 <170 BORDE RLINE : <200- 239 ----- HIGH RISK: >240 >200 Not Available [facility] (Lab) [address] [place], [address], 07/17/2022 13:11:08 07/17/20 22 07/17/2022 LIPID PANEL triglyceride s 119 mg/dL 0-150 NIH ELIAZAR NSUS REPOR T RECOM MENDA TION FOR TRIGL YCERI KATHERIN: ADULT CHILD LOW RISK: <150 ----- BODER LINE: 150-1 99 ----- HIGH RISK: >200 ----- Not Available [facility] (Lab) [address] [place], [address], 07/17/2022 13:11:08 07/17/2007/17/2022 LIPID PANEL HDL cholesterol 37 mg/dL 40- low Not Available [facility] (Lab) [address] [place], [address], 07/17/2022 13:11:08 07/17/2007/17/2022 LIPID PANEL LDL cholesterol, [...] WILL NOT BE REPOR LAUREEN. Not Available [facility] (Lab) [address] [place], [address], 07/17/2022 13:11:08 07/17/20 22 07/17/2022 BASIC METAB OLIC PANEL sodium 139 mmol/ L 137-14 5 Not Available [facility] (Lab) [address] [place], [address], 07/17/2022 13:11:04 07/17/20 22 07/17/2022 BASIC METAB OLIC PANEL potassium 4.4 mmol/ L 3.5-5. 1 Not Available [facility] (Lab) [address] [place], [address], 07/17/2022 13:11:04 07/17/20 22 07/17/2022 BASIC METAB OLIC PANEL chloride 104 mmol/ L 98-107 Not Available [facility] (Lab) [address] [place], [address], 07/17/2022 13:11:04 07/17/20 22 07/17/2022 BASIC METAB OLIC PANEL carbon dioxide 27 mmol/ L 22-30 Not Available [facility] (Lab) [address] [place], [address], 07/17/2022 13:11:04 07/17/2007/17/2022 BASIC METAB OLIC PANEL anion gap 12.4 mmol/ L 14-22 low Not Available [facility] (Lab) [address] [place], [address], 07/17/2022 13:11:04 07/17/20 22 07/17/2022 BASIC METAB OLIC PANEL glucose 99 mg/dL 70-99 Not Available [facility] (Lab) [address] [place] [address], [address], 07/17/2022 13:11:04 07/17/20 22 07/17/2022 BASIC METAB OLIC PANEL BUN 17 mg/dL 8-19 Not Available [facility] (Lab) [address] [place] [address], [address], 07/17/2022 13:11:04 07/17/20 22 07/17/2022 BASIC METAB OLIC PANEL creatinine 1.00 mg/dL 0.66-1 .25 Not Available [facility] (Lab) [address] [place], [address], 07/17/2022 13:11:04 07/17/2007/17/2022 BASIC METAB OLIC PANEL GFR >60 Refer ence Range : Hart ge GFR Healt hy Adult : >60 [...] calcu lator is avail able on the [facility] websi te: https ://tessy w.gage mireles.o rg/pr ofess ional s/kdo qi/gf r_cal culat or Not Available [facility] (Lab) [address] [place], [address], 07/17/2022 13:11:04 07/17/2007/17/2022 BASIC METAB OLIC PANEL calcium 9.4 mg/dL 8.4-10 .2 Not Available [facility] (Lab) [address] [place], [address], 07/17/2022 13:11:04 02/05/20 24 02/05/2024 rsv (resp irato ry syncy tial virus ), rapid , nasop haryn geal RSV negati ve Not Available [address], [place], [address], 02/05/2024 12:30:01 02/05/20 24 02/05/2024 rapid flu (A+B) Flu A negati ve Not Available [address] [place], [place], [address], 02/05/2024 12:29:41 02/05/20 24 02/05/2024 rapid flu (A+B) Flu B negati ve Not Available [facility] [address] [place], [place], [address], 02/05/2024 12:29:41 08/08/20 23 08/08/2023 XR, chest , 2 view No observ ation record ed. [email or web address] [place] [address] [address], [place], [address], 08/09/2023 10:19:27 Result Notes None recorded. Problems Name Problem SNOMED Code Status Onset Date Resolution Date Notes Provider Name and Address Organization Details Recorded Time Atypical chest pain 440613494 Completed Not Available [facility] 3 05:54:33 Disorder of shoulder 489710539 Active Not Available [facility] 3 21:27:55 Backache 776561345 Completed Not Available [facility] 3 05:54:33 Radiothera py follow-up 227998160 Active Not Available [facility] 3 21:27:55 Localized, primary osteoarthr itis 441325734 Active Not Available [facility] 3 21:27:55 Partial thickness rotator cuff tear 025024871 Active Not Available [facility] 3 21:27:55 Full thickness rotator cuff tear 558832891 Active Not Available [facility] 3 21:27:55 Asbestos-i nduced pleural plaque 546578101 Active Not Available [facility] 3 21:27:55 Basal cell carcinoma of skin 495463829 Active 2018 Not Available [facility] 3 21:27:55 Shoulder joint pain 051935872 Active Not Available [facility] 3 21:27:55 Respirator y tract infection 963671087 Completed Not Available [facility] 3 05:54:34 Sinusitis 41424333 Completed Not Available [facility] 3 05:54:34 Night sweats 68011742 Completed Not Available [facility] 3 05:54:34 Tibialis tendinitis 81012261 Active Not Available [facility] 3 21:27:55 Upper respirator y infection 99790575 Completed Not Available [facility] 3 05:54:34 Acute upper respirator y infection 13584182 Completed Not Available [facility] 3 05:54:34 Disorder of bursa of shoulder region 03667499 Active Not Available [facility] 3 21:27:55 Aortic aneurysm 55139741 Active Not Available [facility] 3 21:27:55 Obstructiv e sleep apnea syndrome 68817108 Active Not Available [facility] 3 21:27:55 Cough 52096077 Active 2022 Radha Lozada MD [address], [place], [address] , [employer] 3 12:15:01 Gastroesop hageal reflux disease 329584281 Active 2022 CARLY Escamilla [address], [address], [place], [address] , [employer] 3 11:00:58 Notes:Some problems listed i n Document: #[id number] could not be added to this patient's chart. Please review this document and add these problems to the patient's chart manually as needed. Problem Notes None recorded. Procedures Surgical History Date Name Laterality Status Provider Name and Address Organization Details Recorded Time repair of shoulder completed Not Available [facility] 12/13/2022 05:52:00 Imaging Results Imaging Date Name Status LastModified by Organiz ation Details LastModified Time 08/08/2023 XR, chest, 2 view completed [address] [place] [address] [place] [address], [address], 08/09/2023 10:19:27 Procedure Notes None recorded. Medical [...] Available Not Available Not Available [facility] Quad [id number] (65yr up)(PF) 60 mcg (15 mcg x [...] % 95 % 77 /min 97.2 [degF] 959195. 35 g 130 mm[Hg] 80 mm[Hg] Not Available [facility] 3 05:52:45 Date Recorded Oxygen saturation Oxygen saturation in Arterial blood by Pulse oximetry Heart rate Body temperature Body weight Systolic blood pressure Diastolic blood pressure Provider Name and Address Organization Details Last Updated DateTime 1 98 % 98 % 90 /min 97.7 [degF] 016936. 95 g 132 mm[Hg] 84 mm[Hg] Not Available [facility] 3 05:52:45 Date Recorded Body weight Body mass index (BMI) Body height Body temperature Respiratory rate Oxygen saturation Oxygen saturation in Arterial blood by Pulse oximetry Heart rate Systolic blood pressure Diastolic blood pressure Provider Name and Address Organization Details Last Updated DateTime 4 440409. 35 g 32.8 kg/m2 182.88 cm 98 [degF] 16 /min 96 % 96 % 81 /min 122 mm[Hg] 82 mm[Hg] Tammie Kaur RN [place] - S [place] [employer] 4 12:22:44 Social History Question Answer Notes LastModified by Organizat ion Details LastModified Time Tobacco Smoking Status Never Smoker Not Available [facility] 12/13/2022 05:51:48 Do You Have An Advance Directive? Yes [id number] Information not available 12/13/2022 What Is Your Level Of Alcohol Consumption? Occasional [id number] Information not available 12/13/2022 Are You Blind Or Do You Have Difficulty Seeing? No [id number] Information not available 12/13/2022 What Is Your Level Of Caffeine Consumption? Moderate [id number] Information not available 12/13/2022 In The 14 Days Before Symptom Onset, Have You Had Close Contact With A Laboratory-confirm ed COVID-19 While That Case Was Ill? No [id number] Information not available 12/13/2022 In The 14 Days Before Symptom Onset, Have You Had Close Contact With A Person Who Is Under Investigation For COVID-19 While That Person Was Ill? No [id number] Information not available 12/13/2022 Are You Deaf Or Do You Have Serious Difficulty Hearing? Yes [id number] Information not available 12/13/2022 Which Illicit Or Recreational Drugs Have You Used? 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 No [id number] Information not available 12/13/2022 Do you have difficulty doing errands alone? No [id number] 26 Information not available 12/13/2022 Do you have difficulty dressing or bathing? No [id number] 26 Information not available 12/13/2022 What is your exercise level? Moderate [id number] 26 Information not available 12/13/2022 Mental Status Question Answer Note LastModified by Organizat ion Details LastModified Time Do you have difficulty concentrating, remembering or making decisions? No [id number] Information not available 12/13/2022 Family History Relationship Description Onset Age of this Age Resolved Age Notes LastModified by Organization Details LastModified Time Father Myocardial infarction [id number] Not available 12/13/2022 05:52:02 Medical History Condition Response ARTHRITIS Y HEADACHES/MIGRAINES Y ANXIETY DISORDER Y Immunizations Vaccine Type Date Status Note Provider Nam e and Address Organization Details Recorded Time Influenza, split virus, trivalent, preservative 5 completed Not Available [facility] 02/21/2023 21:27:56 Pneumococcal conjugate PCV 13 5 completed Not Available [facility] 02/21/2023 21:27:56 Influenza, split virus, quadrivalent, preservative 2 completed Not Available [facility] 02/21/2023 21:27:55 COVID-19, mRNA, LNP-S, PF, 30 mcg/0.3 mL dose 2 completed Not Available [facility] 02/21/2023 21:27:56 COVID-19, mRNA, LNP-S, PF, 100 mcg/0.5mL dose or 50 mcg/0.25mL dose 1 completed Not Available [facility] 02/21/2023 21:27:56 Influenza, split virus, quadrivalent, preservative 1 completed Not Available [facility] 02/21/2023 21:27:55 Influenza, split virus, quadrivalent, preservative 0 completed Not Available [facility] 02/21/2023 21:27:55 Influenza, split virus, quadrivalent, preservative 9 completed Not Available [facility] 02/21/2023 21:27:55 Influenza, split virus, quadrivalent, preservative 8 completed Not Available [facility] 02/21/2023 21:27:55 Influenza, split virus, quadrivalent, preservative 7 completed Not Available [facility] 02/21/2023 21:27:55 Influenza, high-dose, trivalent, PF 6 completed Not Available [facility] 02/21/2023 21:27:56 TST, unspecified formulation 4 completed Not Available [facility] 02/21/2023 21:27:56 Influenza, split virus, trivalent, preservative 3 completed Not Available [facility] 02/21/2023 21:27:56 zoster live 3 completed Not Available [facility] 02/21/2023 21:27:56 pneumococcal polysaccharide PPV23 2 completed Not Available [facility] 02/21/2023 21:27:56 Td (adult) 9 completed Not Available [facility] 02/21/2023 21:27:56 Past Encounters Encounter ID Performer Location Encounter Start Date Encounter Closed Date Diagnosis/Indication Diagnosis SNOMED-CT Code Diagnosis ICD10 Code [id number] [facility] [place] [address] [facility] [place] [address] 01/24/2021 00:00:00 01/24/2021 10:12:08 [id number] [facility] [place] [facility] [address] [place] [address] 02/15/2021 00:00:00 08/10/2021 16:57:21 [id number] [facility] [place] [facility] [place] [address] 12/11/2022 00:00:00 12/11/2022 20:33:32 [id number] CARLY Escamilla [facility] [place] [address] [facility] [place] [address] 02/05/2024 12:00:46 02/05/2024 12:53:15 Cough 44591546 R05.9 Aortic aneurysm [id number] I71.9 Asbestos-i nduced pleural plaque [id number] J92.0 Health Concerns Section Related Observation LastModified by Organization Detai ls LastModified Time None Recorded Concern Status LastModified by Organization Details LastModified Time None Recorded Advance Directives Directive Y: Payers Encounter Date Sequence Insurance Name Policy Number Policy Francois Covered Member ID Francois Member ID Guarantor Name 02/05/2024 1 [place] Omar L Hemann [id number] Omar L Hemann 02/05/2024 2 [employer] [place] (MEDICARE SUPPLEMENT) Omar L Hemann [id number] Omar L Hemann Notes Date Note Type Note Provider Name and Address Organization Details Recorded Time 02/05/2024 text/html cough , no fever CARLY Escamilla [address], [address], [place], [address], [place] [facility] 02/13/2024 10:26:19
--- OUTSIDE RECORDS SUMMARY | 2024-09-29 22:08 | XMS_ITS | Encounter Summary ---
Author Organization [facility] Healthcare Address [address] [place] [address] Care Team Providers Care Farm Laborer Name Role Phone Kali Reddy MD Unavailable Keaton Lynn MD Unavailable [phone] Radha Lozada MD Primary Care Provider [phone] Reason for Visit * Reason Comments Atrial Fibrillation Encounter Details Date Type Department Care Team (Late st Contact Info) Description 12/04/2023 11:30 AM IT SOFTWARE ENGINEER Office Visit [facility] Cardiology [address] [facility] [address] [place] [address] Kali Devries PA [address] [address] [place] [address] Paroxysmal atrial fibrillation (CMS/HCC) (HCC) (Primary Dx) Social History Tobacco Use Types Packs/Day Years [...] week 07/30/2023 How often do you attend [facility] or roman catholic services? More than 4 times per year 07/30/2023 Do you belong to any clubs o r organizations such as sabianist groups, unions, fraternal or athletic groups, or [...] place to sleep or slept in a group home (including now)? No 07/30/2023 Personal Safety Answer Date Recorded Have you ever been in or are you currently in a harmful physical or emotional relationship or is someone making you feel afraid or unsafe? Denies 12/04/2023 Sex and Gender Information Value Date Recorded Sex Assigned at Not on file Legal Sex Male 12:03 PM IT SOFTWARE ENGINEER Gender Identity Not on file Sexual Orientation Not on file Occupation Industry Job Start Date Job End Date Retired Not on file Not on file Not on file documented as of this encounter Last Filed Vital Signs Vital Sign Reading Time Taken Comments Blood Pressure 130/82 12/04/2023 11:05 AM IT SOFTWARE ENGINEER Pulse 61 12/04/2023 11:05 AM IT SOFTWARE ENGINEER Temperature - - Respiratory Rate - - Oxygen Saturation - - Inhaled Oxygen Concentration - - Weight 111.1 kg (245 lb) 12/04/2023 11:05 AM IT SOFTWARE ENGINEER Height 182.9 cm (6') 12/04/2023 11:05 AM IT SOFTWARE ENGINEER Body Mass Index 33.23 12/04/2023 11:05 AM IT SOFTWARE ENGINEER documented in this encounter Progress Notes * Kali Devries PA - 12/04/2023 11:30 AM CST Images from the original note were not included. [facility] [place] [address] [address] Cardiology MD Kali Mckeon, MD Wellington Dugan, MD Parish Monae, MD Kilo Sims, MD Johnny Maher, MD Osmin Barbosa, MD Best Ramirez, MD Nicolas Golden, MD Javon Lopez, MD Rory Dowling, MD Kali Devries, CARLY Day, ALEX Monk, ALEX Smith, CITY ADMINISTRATOR Patient Name: Omar Adam Provider: Kali Devries PA-C : 1945 Date of Service: 12/04/2023 Referring: Neville CHIEF COMPLAINT: Atrial Fibrillation HISTORY OF PRESENT ILLNESS: 78 y.o. male with a history of atrial fibrillation with elevated CHADS-VASc score, unable to tolerate anticoagulation due to previous severe GI bleeding, who underwent successful Watchman implant (Watchman FLX procedure with 24mm device) on 10/23/[address] Golden. The patient has done well ever since procedure performed, with no complaints at today's visit. He currently denies chest discomfort, worsening dyspnea, palpitations, presyncope, syncope. KELLEY today shows well-seated Watchman device with no clear evidence of thrombus, no clear color doppler flow around the device. MEDICATIONS: Current Outpatient Medications: acetaminophen (TylenoL) 325 [...] by mouth daily, Disp: 90 tablet, Rfl: 3 clopidogreL (PLAVIX) 75 mg tablet, Take 1 tablet (75 mg total) by mouth daily, Disp: 30 tablet, Rfl: 11 metoprolol tartrate (LOPRESSOR) 25 mg immediate release tablet, Take 1 tablet (25 mg total) by mouth 2 (two) times a day, Disp: 180 tablet, Rfl: [address] (PROTONIX) 40 mg EC tablet, Take 1 tablet (40 mg total) by mouth 2 (two) times a day, Disp: 60 tablet, Rfl: 0 No current facility-administered medications for this visit. REVIEW OF SYSTEMS: General: No fever or chills Eyes: No double vision ENT: No alterations in auditory acuity, no sore throat Pulmonary: No dyspnea, cough or hemoptysis Cardiac: No chest pain, orthopnea, PND or palpitations GI: No nausea, vomiting, diarrhea or constipation Musculoskeletal: No myalgias or arthralgias Skin: no rashes Neuro: No headaches, parathesias or focal neurological complaints Endocrine: No cold or heat intolerance Heme: no excessive bleeding or bruising PHYSICAL EXAM: BP 130/82 Pulse 61 Ht 182.9 cm (6') Wt 111.1 kg (245 lb) BMI 33.23 kg/m?? Body mass index is 33.23 kg/m??. General: Elderly male, cooperative, in no acute distress Eyes: SYBIL/EOMI, Conjuctiva Clear ENT: External ears/nose normal Neck: Supple; no JVD, no carotid bruit Respiratory: Clear to ausculation bilaterally; no wheezing or rales; respirations nonlabored Cardiovascular: Irregularly irregular rhythm, no murmur, rub or gallop Gastrointestinal: soft, non-tender, non-distended Extremities: Warm, no tenderness, no edema. Musculoskeletal: no obvious bone/joint deformities Skin: no obvious rash or bruising Psychiatric: normal mood and affect Neurologic: A&O x 4, no focal deficits LABS: Lab Results Component Value Date TSH 1.48 07/27/2023 Lab Results Component Value Date WBC 4.4 07/31/2023 WBC 4.9 07/30/2023 WBC 6.2 07/29/2023 RBC 2.50 (L) 07/31/2023 RBC 2.36 (L) 07/30/2023 RBC 2.34 (L) 07/29/2023 HGB 7.6 (L) 07/31/2023 HGB 7.4 (L) 07/30/2023 HGB 7.9 (L) 07/29/2023 HCT 24.6 (L) 07/31/2023 HCT 23.4 (L) 07/30/2023 HCT 25.1 (L) 07/29/2023 MCV 98.4 (H) 07/31/2023 MCV 99.2 (H) 07/30/2023 MCV 96.2 07/29/2023 MCH 30.4 07/31/2023 MCH 31.4 07/30/2023 MCH 30.3 07/29/2023 MCHC 30.9 (L) 07/31/2023 MCHC 31.6 (L) 07/30/2023 MCHC 31.6 (L) 07/29/2023 MPV 9.1 07/31/2023 MPV 9.0 (L) 07/30/2023 MPV 8.8 (L) 07/29/2023 NRBCABS 0.02 (H) 07/31/2023 NRBCABS 0.07 (H) 07/30/2023 NRBCABS 0.13 (H) 07/29/2023 Lab Results Component Value Date SODIUM 138 07/31/2023 SODIUM 138 07/30/2023 SODIUM 137 07/29/2023 POTASSIUM 3.6 07/31/2023 POTASSIUM 3.5 07/30/2023 POTASSIUM 3.5 07/29/2023 CO2 26 07/31/2023 CO2 27 07/30/2023 CO2 24 07/29/2023 BUNSER 12 07/31/2023 BUNSER 11 07/30/2023 BUNSER 16 07/29/2023 GLUCOSE 97 07/31/2023 GLUCOSE 93 07/30/2023 GLUCOSE 92 07/29/2023 CREATININE 0.97 07/31/2023 CREATININE 0.92 07/30/2023 CREATININE 0.84 07/29/2023 CALCIUM 8.1 (L) 07/31/2023 CALCIUM 8.0 (L) 07/30/2023 CALCIUM 7.9 (L) 07/29/2023 CHLORIDE 105 07/31/2023 CHLORIDE 104 07/30/2023 CHLORIDE 106 07/29/2023 ALBUMIN 2.8 (L) 07/31/2023 ALBUMIN 3.1 (L) 07/27/2023 ALBUMIN 3.2 (L) 07/14/2023 AST 46 07/27/2023 AST 27 06/21/2023 ALT 31 07/27/2023 ALT 25 06/21/2023 ALKPHOS 61 07/27/2023 ALKPHOS 70 06/21/2023 BILITOT 0.5 07/27/2023 BILITOT 0.6 06/21/2023 PROT 5.8 (L) 07/27/2023 PROT 6.9 06/21/2023 ANIONGAP 7 07/31/2023 ANIONGAP 7 07/30/2023 ANIONGAP 7 07/29/2023 CARDIOGRAPHICS: KELLEY 12/04/23: CONCLUSIONS: 1. Grossly normal left ventricular systolic function based on limited views. Inadequate for detailed regional wall motion assessment. Unable to estimate left ventricular EF secondary to poor endocardial definition. Roughly normal left ventricular cavity size. 2. Normal right ventricular size. Normal right ventricular systolic function. 3. Not well visualized. Saline contrast study positive for R to L shunt c/w PFO. 4. Atrial septum color Doppler interrogation consistent with a PFO. 5. There is no aortic regurgitation. No aortic stenosis. Normal functioning bioprosthetic aortic valve. 6. Normal aortic root size. 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 The ascending aorta is not well-visualized. Upper normal size descending thoracic aorta. 7. There is a left atrial appendage occlusion device in-situ. It appears well-seated. Visualization of the device is markedly suboptimal. There is no clear thrombus on the external surface of the device and there is no clear color Doppler flow around the device. However, the presence of either cannot be definitively excluded. ASSESSMENT & PLAN: Diagnoses and all orders for this visit: Paroxysmal atrial fibrillation (CMS/HCC) (HCC) (Primary) Status post successful Watchman implant on 10/23/2023. KELLEY today shows well- seated device with no clear evidence of thrombus or color Doppler flow around the device. Continue aspirin and Plavix. Patient to follow-up in April 2024 for 6 month watchman follow-up. This note was dictated with voice-recognition software, category director errors may be present. CARLY Potts Cosigned by Nicolas Golden MD at 12/04/2023 4:08 PM IT SOFTWARE ENGINEER SOFTWARE ENGINEER SOFTWARE ENGINEER documented in this encounter Plan of Treatment Not on file documented as of this encounter Visit Diagnoses Diagnosis Paroxysmal atrial fibrillation (CMS/HCC) (HCC)- Primary Atrial fibrillation documented in this encounter Care Teams Farm Laborer Relationship Specialty Start Date End Date Radha Lozada MD [address] [place] [address] [place] [address] PCP - General Family Medicine 06/25/23 04/29/24 Kali Reddy MD Consulting Physician Cardiology 05/19/19 Keaton Lynn MD [address] [facility] [address] [place] [address] Consulting Physician Cardiothoracic Surgery 06/07/23 documented as of this encounter
--- OUTSIDE RECORDS SUMMARY | 2024-09-29 22:08 | XMS_ITS | Encounter Summary ---
Author Organization [facility] Address [address] [place] [address] Phone Care Team Providers Care Corporate Safety Manager Name Role Phone Kali Reddy MD Unavailable [phone] Keaton Lynn MD Unavailable [phone] Radha Lozada MD Primary Care Provider [phone] Encounter Details Date Type Department Care Team (Late st Contact Info) Description 08/17/2023 Telephone [facility] [address] [facility] 6th [place] [address] [place] [address] Josse Brooks MD [address] [place] [address] Social History Tobacco Use Types Packs/Day Years [...] week 07/30/2023 How often do you attend [facility] or alevism services? More than 4 times per year 07/30/2023 Do you belong to any clubs o r organizations such as taoism groups, unions, fraternal or athletic groups, or [...] place to sleep or slept in a prison (including now)? 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 Spoke with pt due to him being unavaiable. She was ok with time date, I let family know if the needed a sooner appointment to all our office. She verbalized understand, appointment sent in mail 08/17/23. documented in this encounter Plan of Treatment Not on file documented as of this encounter Visit Diagnoses Not on filedocumented in this encounter Care Teams Corporate Safety Manager Relationship Specialty Start Date End Date Radha Lozada MD [address] [place] [address] [place] [address] PCP - General Family Medicine 06/25/23 04/29/24 Kali Reddy MD Consulting Physician Cardiology 05/19/19 Keaton Lynn MD [address] [facility] [address] [place] [address] Consulting Physician Cardiothoracic Surgery 06/07/23 documented as of this encounter
--- OUTSIDE RECORDS SUMMARY | 2024-09-29 22:08 | XMS_ITS | Encounter Summary ---
Author Organization [facility] Healthcare Address [address] [place] [address] Care Team Providers Care Certified Medical Technician Name Role Phone Kali Reddy MD Unavailable [phone] Keaton Lynn MD Unavailable Radha Lozada MD Primary Care Provider [phone] Reason for Visit * Reason Comments Post-op Aneurysm Repair S/P Tissue [place] site Root, Replace Jose-Arch Encounter Details Date Type Department Care Team (Late st Contact Info) Description 08/16/2023 9:45 AM CDT Office Visit Cardiovascular and Thoracic Surgery [address] [facility] [address] [place] [address] Keaton Lynn MD [address] [place] [address] [address] [place] [address] Aftercare following surgery of the circulatory system (Primary Dx) Social History Tobacco Use Types Packs/Day Years Used Date Smoking Tobacco: Never Smokeless Tobacco: Never Tobacco Cessation:Counseling Given: Not Answered Alcohol Use Standard Drinks/Week Comments Yes 0 [...] any clubs o r organizations such as oriental orthodox groups, unions, fraternal or athletic groups, or [...] place to sleep or slept in a [place] facility (including now)? No 07/30/2023 Personal Safety Answer Date Recorded Have you ever been in or are you currently in a harmful physical or emotional relationship or is someone making you feel afraid or unsafe? 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 Gender Identity Not on file Sexual Orientation Not on file documented as of this encounter Last Filed Vital Signs Vital Sign Reading Time Taken Comments Blood Pressure 118/72 08/16/2023 10:52 AM CDT Pulse 64 08/16/2023 10:52 AM CDT Irre gular Temperature - - Respiratory Rate 16 08/16/2023 10:52 AM CDT Oxygen Saturation - - Inhaled Oxygen Concentration - - Weight 105.2 kg (232 lb) 08/16/2023 10:52 AM CDT Height - - Body Mass Index 31.46 07/27/2023 3:40 PM CDT documented in this encounter Patient Instructions * Patient Instructions* Hernan Helton RN - 08/16/2023 9:45 AM CDT You may drive Avoid strenuous lifting over 15# for a total of [address] Lynn would like you to have a CTA Chest in 1 year. We will schedule a telephone visit to discuss the results. Please follow the guidelines below to protect your heart valve from infection: Antibiotic Prophylaxis Taking an antibiotic before or immediately after a surgical procedure in order to prevent an infection is called antibiotic prophylaxis. It may be recommended by a primary doctor, a land acquisition specialist, or an orthopedist for patients who are at particular risk for dangerous infections, such as an infection of a heart valve or prosthetic joint. Conditions for which antibiotic prophylaxis is often recommended are: Prosthetic heart valve History of a heart valve infection Certain types of congenital heart disease Prosthetic joint Even in patients for whom antibiotic prophylaxis has been recommended, not all surgical procedures require antibiotic prophylaxis. It is often recommended for procedures of the mouth, respiratory tract, or GI tract. However, most skin procedures do not require any antibiotic prophylaxis. Whenever uncertain, patients should consult the doctor who made the recommendation for antibiotic prophylaxis. The antibiotic is typically given as a single dose 30-60 minutes before the procedure. The choice of antibiotic depends on the medical condition, the surgical procedure, and the presence of any allergies. Common antibiotics and dosing are: Amoxicillin: 2 g for adults and 50 mg/kg for children Cephalexin: 2 g for adults and 50 mg/kg for children Clindamycin: 600 mg for adults and 20 mg/kg for children Azithromycin or clarithromycin: 500 mg for adults and 15 mg/kg for children documented in this encounter Progress Notes * Hernan Helton RN - 08/16/2023 9:45 AM CDT Subjective/Objective Patient ID: Omar Adam is a 77 y.o. male. Chief Complaint Post-op Aneurysm Repair (S/P Tissue Composite Root, Replace Jose-Arch) PROCEDURE PERFORMED: 07/10/23 1. Tissue composite root replacement via modified bentall (Konnect Conduit Reislia tissue valve 25 mm / 28 mm Gelweave Valsalva graft) 2. Isolation of the arch vessel for selective perfusion 3. Hemiarch replacement (28 mm) 4. Sternal plating 2 8 hole H plates and 16 screws. BP 118/72 Pulse 64 Comment: Irregular Resp 16 Wt 105.2 kg (232 lb) BMI 31.46 kg/m?? HPI: Omar returns approximately 6 weeks post tissue Composite Root Replacement. He is feeling welland denies c/o uncontrolled pain or shortness of breath. He was readmitted for a GIB which requiredclipping of a Duodenal ulcer. He has been maintained on a PPI twice daily, and denies any further symptoms of GI blood loss. He is seeing Dr. Reddy today, and a Watchman procedure has been proposed. PHYSICAL EXAM: Lungs: Clear Cardiac: Irregular Incision: MSI is healing well. Lower extremity edema: Right: 1+ Left: 1+ READMISSION: Yes. Reason: GI bleed requiring clipping of duodenal ulcer Current Outpatient Medications: acetaminophen (TylenoL) 325 mg [...] a day, Disp: 60 tablet, Rfl: 0 Assessment/Plan Diagnoses and all orders for this visit: Aftercare following surgery of the circulatory system (Primary) TY HARBORMASTER documented in this encounter Plan of Treatment Not on file documented as of this encounter Visit Diagnoses Diagnosis Aftercare following surgery of the circulatory system- Primary Aftercare following surgery of the circulatory system, NEC documented in this encounter Care Teams Certified Medical Technician Relationship Specialty Start Date End Date Radha Lozada MD [facility] [place] [address] PCP - General Family Medicine 06/25/23 04/29/24 Kali Reddy MD Consulting Physician Cardiology 05/19/19 Keaton Lynn MD [address] [facility] [address] [place] [address] Consulting Physician Cardiothoracic Surgery 06/07/23 documented as of this encounter
--- OUTSIDE RECORDS SUMMARY | 2024-09-29 22:08 | XMS_ITS | Encounter Summary ---
Author Organization [facility] Healthcare Address [address] [place] [address] Care Team Providers Care Behavioral Health Rn Name Role Phone Kali Reddy MD Unavailable [phone] Keaton Lynn MD Unavailable [phone] Radha Lozada MD Primary Care Provider [phone] Reason for Referral * Cardiology (Routine) - Closed Specialty Diagnoses / Procedures Referred By Contac t Referred To Contact Diagnoses Atrial fibrillation, new onset (CMS/HCC) (HCC) Procedures Transesophageal Echo (KELLEY) W Doppler/CF TRANSESOPHAGEAL ECHO (KELLEY) W DOPPLER/CF TRANSESOPHAGEAL ECHO (KELLEY) W DOPPLER/CF WO CONTRAST TRANSESOPHAGEAL ECHOCARDIOGRAM (KELLEY) COMPLETE W/ CONTRAST TRANSESOPHAGEAL ECHO (KELLEY) W DOPPLER/CF W CONTRAST TRANSESOPHAGEAL ECHO (KELLEY) W LTD DOPPLER/CF WO CONTRAST TRANSESOPHAGEAL ECHOCARDIOGRAM (KELLEY) COMPLETE W/ COLOR TRANSESOPHAGEAL ECHO (KELLEY) WO DOPPLER/CF W CONTRAST Nicolas Golden MD [address] [place] [address] Phone: tel: fax: [facility] [address] [place] [address] Referral ID Status Reason Start Date Expiration Date Visits Re quested Visits Authorized [id number] Closed 08/03/2023 09/01/2024 1 1 Reason for Visit * Reason Onset Date Comments Scheduling WM w/GT & FU protocols 08/01/2023 Encounter Details Date Type Department Care Team (Late st Contact Info) Description 08/01/2023 Telephone [facility] Medical Group Cardiology [address] [place] [address] Nicolas Golden MD [address] [place] [address] Scheduling WM w/GT & FU protocols Social History Tobacco Use Types Packs/Day Years [...] week 07/30/2023 How often do you attend [facility] or latter day services? More than 4 times per year 07/30/2023 Do you belong to any clubs o r organizations such as congregational groups, unions, fraternal or athletic groups, or [...] place to sleep or slept in a mcc (including now)? No 07/30/2023 Personal Safety Answer Date Recorded Getting School Help Needed Denies 10/04 Sex and Gender Information Value Date Recorded Sex Assigned at Not on file Legal Sex Male 12:03 PM ACTIVITY THERAPIST Gender Identity Not on file Sexual Orientation Not on file documented as of this encounter Miscellaneous Notes * Telephone Encounter - Blank Smyth RN - 10/17/2023 12:56 PM CST Labs back & scanned to media tab. OK for WM 10/23/23 VITY THERAPIST * Telephone Encounter - Blank Smyth RN - 10/16/2023 1:39 PM CST Pt went to wrong lab & only go BMP. I called [facility] & they take outside orders & can draw CBC & INR. I faxed order to them to [phone]. Spoke w//HIPAA cat & she will relay message that pt needs to go 1st thing tomorrow. She will have him do so. VITY THERAPIST * Addendum Note - Blank Smyth RN - 10/11/2023 10:28 AM CSTAddended by: BLANK SMYTH on: 10/11/2023 10:28 AM Modules accepted: Orders VITY THERAPIST * Telephone Encounter - Blank Smyth RN - 10/11/2023 10:28 AM CST LMOM reminding pt to have labs done no later than 10/16/23 for WM w/GT 10/23/23. VITY THERAPIST * Telephone Encounter - Blank Smyth RN - 08/03/2023 2:38 PM CDT Spoke w/pt & spouse. Not in any rico for procedure. Wants to wait until October to allow more healing time after hospital stay & procedures while IP. Will keep appt in Nov w/AIRLINE MANAGER though. Pt now scheduled for WM w/GT 10/23/23 Case 3 (arrive @ 0830). Labs @ [facility] between 10/09 - 10/17/23 (order sent). 45D WM KELLEY w/MK 12/04/23 @ 0930 (arrive @ 0900) then see PP AIRLINE MANAGER @ 1130. Instructions mailed to confirmed address on file. Dr Reddy to sign SDM form. Pt has insurance NPR. * Addendum Note - Blank Smyth RN - 08/03/2023 2:33 PM CDTAddended by: BLANK SMYTH on: 08/03/2023 02:33 PM Modules accepted: Orders * Telephone Encounter - Blank Smyth RN - 08/03/2023 2:28 PM CDT Instructions for Watchman Device Procedure with Dr Nicolas Golden ? Patient Name: Omar Adam Time of Arrival:?08:30AM & will be relayed to you via phone by the Cardiac Letter Stamping Machine Operator the eveningprior to procedure Date of Procedure: 10/23/2023 Location: ?[facility] [address] [place] [address] [address] 2nd?floor Cardiac Letter Stamping Machine Operator Instructions: ? NOTHING?TO EAT OR DRINK AFTER MIDNIGHT, except for taking normal morning medications (as listed below) with small sips of water. NO alcohol consumption 24 hr prior to procedure ? Medications:? DO NOT STOP?Plavix, Effient, Brilinta or Aspirin?for this procedure. ? ? If you take Coumadin, Warfarin, Pradaxa, Eliquis, or Xarelto you will need to stop taking that 3 days prior to your procedure. N/A ?You will need to continue taking an 81mg Aspirin the day before and the day of your procedure. ? ? Please take all other medications as usual with small sips of water the morning of procedure. You are required to have Pre-Procedure Labs, please have these done between: 10/09/23 - 10/17/23 for BMP, CBC, PT-INR (order sent electronically to OP Lab at [facility]) Please plan to have a explosives truck driver take you home. ?You may be kept overnight for observation; however, you will not be allowed to drive yourself home, the next day.?? ? Please bring photo ID, insurance cards, and list of current medication. You should receive a call directly from the cardiac concrete plant laborer nurses the day before your procedure (Sunday if procedure is on a Sunday) to confirm the time and date already relayed to you from the watchman coordinator. *Please note that there are sometimes last-minute scheduling changes with time adjustments which would be relayed to you at this time if that happens to occur. If you do not receivea call by 4:30 the day before- you can call [phone] to double confirm your appt details YOU WILL NEED A 45 DAY OFFICE VISIT & KELLEY?WITH THE REFERRING PROVIDER? (This should be scheduled and coordinated through Dr. Golden' Office) 45 day time frame: already scheduled for 12/04/2023 6 month Office Visit: approximately around April 2024 1 year Office Visit: approximately around October 2024 2 year office visit: approximately around October 2025 * Telephone Encounter - Blank Smyth RN - 08/03/2023 2:01 PM CDT Images from the original note were not included. 45 DAY FOLLOW UP KELLEY PROCEDURE and SAME DAY OFFICE VISIT WITH NURSE PRACTITIONER Date: 12/04/2023 Arrival Time: 09:00AM Location: [facility]. Cardiac Letter Stamping Machine Operator (located on second floor) Instructions: NOTHING TO EAT OR DRINK 8 HOURS PRIOR TO YOUR PROCEDURE TIME except taking medications listed belowwith small sips of water. Medications DO NOT STOP Plavix, Effient, Brilinta or Aspirin for this procedure. DO NOT take oral diabetic medication or insulin the morning of the procedure. Take all other medications as usual with small sips of water the morning of procedure. Please plan to have a explosives truck driver take you home. NO alcohol consumption 24 hr prior to procedure Bring photo ID, insurance cards, and current list of medications. Same Day Office Visit: [facility] [address]: [address] Same Day OFFICE VISIT Following KELLEY at: 11:30AM Who you???ll be seeing: Erin Monk NP * Telephone Encounter - Blank Smyth RN - 08/01/2023 9:11 AM CDT ERICK Initial Phone Call Primary Dx: New Onset A Fib, GI bleed, syncope Referring provider Maureen Who is completing Follow-Ups? Chantel Hx cardiac surgery? If yes--> Op notes obtained and reviewed? ELROY noted as ligated or occluded already? Current blood thinners? No ASA/plavix? ASA 18mg qd Confirm allergy to iodinated contrast? No Confirm allergy to nickel? No Pt on dialysis? No Fast acting insulin? No Topic Pt answer Additional pt comments Discussed with/educated regarding watchman? What the procedure looks like and what is actually performed for the procedure Minimally invasive procedure Eliminates need for blood thinners such as warfarin, eliquis, xarelto by accomplishing the same desired outcome that blood thinners serve: decreasing risk for clotting The procedure decreases risk of clotting by sealing off a non-functional pocket off the left upper chamber of the heart (left atrium) called the left atrial appendage (ELROY) Does not fully contract with each beat, allowing blood to sit there increasing chance of clotting Will make small incision at groin and thread catheter up to specific area of heart Guidance imaging through a type of echo called a KELLEY- which means [id number] The echo probe is positioned through mouth in esophagus to allow best possible images of the ELROY Once position is confirmed, will thread the watchman device on catheter up to the ELROY and insert it Use the echo they confirm it is well placed in the ELROY and confirm no blood flow around the device Remind that this procedure does have the potential chance to be unsuccessful if the appendage anatomy results in not fitting one of the device sizes, if the angle of the appendage does not allow for adequate placement, or if thrombus is viewed on/in the appendage on the pre-KELLEY Pt has been educatedand reviewed the included topic points: [x] Endorses having been given thorough education and explanation of procedure by provider [] Denies [] If denies, verbally acknowledged understanding of the discussed topic points LUIS ALBERTO VASC 3: htn, >75 After the procedure: One potential overnight stay in hospital for observation following the watchman procedure Can resume mostly all activities, only restriction would be to avoid lifting >10 lbs for the purpose of allowing the incision site to heal Will be on a dual antiplatelet therapy (DAPT) x 6 months, then transition to a once daily baby aspirin (ASA) Requires a 45 day post-KELLEY, to confirm healing appropriately and confirmation device is sealed off well. Will require a same day office visit (OV) with Nurse Practitioner (AIRLINE MANAGER) in person at [facility] Since KELLEY requires sedation, a explosives truck driver will be needed on the 45 day follow up Remaining requirements of watchman completion are office visits only (no further testing) at the 6 month, 1 year, 2 year [x]Pt verbalizes understanding and acceptance to completing the following requirements after the watchman procedure: - DAPT [id number] - KELLEY and same day office visit with the AIRLINE MANAGER/compliance representative - 45 day linette - Office visit at 6 month with AIRLINE MANAGER - Office visit at 1 year with AIRLINE MANAGER - Office visit at 2 year with AIRLINE MANAGER Timeframe & requirements prior to procedure: Need to complete a shared decision making (SDM) either through referral form by one of the patient's care team members that is not classified as an ssis ssrs developer (can include but not limited to: primary care physician [PCP], associate publisher [GI], fabrication manager) or setting up an OV with one of the practice's compliance representative who are not actively doing interventional cardiology. Has the option to do an OV with the surgeon to discuss questions directly with him, but is not required, and will not qualify as the SDM visit/referral Lab work 3-30 days prior to both procedures (Watchman and post-KELLEY will require lab work). BMP, CBC, PT-INR. *Only if pt is not covid-vaccinated, then will need a covid test 48-72 hours prior to procedure. Pt's Preferred Lab: [facility] between 10/09/23 - 10/16/23 Length of wait time until procedure/current next available date for the watchman procedure: 10/23/2023 Case 3 (arrive @ 1030) KELLEY Screening Questions - Any hx or current issues with swallowing food/drink with getting stuck in throat? - Do you have any hx of throat/esophagus disease? - Do you or have you previously vomit/cough up blood d/t ulcers, varices, or esophagitis? - Do you have a hx of chest/neck radiation (not including x-rays)? - Do you have liver disease or cirrhosis? *If yes to any of these questions- Barium swallow test will be needed. KELLEY cannot be scheduled until that is performed. If extenuating circumstance, verification through performing provider. [] Yes [x] No [] Yes [x] No [] Yes [x] No [] Yes [x] No [] Yes [x] No Would they like a Pamphlet mailed to them for reference back to over this information discussed: [x]Pt would like an educational packet mailed to them (confirm address) []Pt denies wanting packet/already has one from provider [x]Address confirmed * Telephone Encounter - Blank Smyth RN - 08/01/2023 9:09 AM CDT Chat from Dr Reddy: Please get the ball rolling for watchman implantation for him. He is agreeable.Currently in [facility]. No rico. Me: Do you want it w/AK ir GT? MD Maureen: First available is fine. If it is about the same time for both then you can put him in the GT column. 1st available is GT. Will contact pt to arrange. documented in this encounter Plan of Treatment Scheduled Orders Name Type Priority Associated Diagnoses Orde r Schedule Protime-INR Lab Routine Atrial fibrillation, new onset (CMS/HCC) (HCC) Expected: 10/11/2023, Expires: 10/11/2024 CBC without differential Lab Routine Atrial fibrillation, new onset (CMS/HCC) (HCC) Expected: 10/11/2023, Expires: 10/11/2024 Basic metabolic panel Lab Routine Atrial fibrillation, new onset (CMS/HCC) (HCC) Expected: 10/11/2023, Expires: 10/11/2024 documented as of this encounter Results * TRANSESOPHAGEAL ECHO (KELLEY) W DOPPLER/CF WO CONTRAST (12/04/2023 12:11 PM ACTIVITY THERAPIST) BSA 2.37 m2 CONS SCIMAGE Anatomical Region Laterality Modality Echocardiography 12/04/2023 9:42 AM ACTIVITY THERAPIST Narrative 12/04/2023 10:23 AM ACTIVITY THERAPIST [facility] [place] [address] TRANSESOPHAGEAL ECHOCARDIOGRAM Patient Name: OMAR ADAMYael : 1945 Study Date: 12/04/2023 9:42:37 AM Gender: M Tech: TC Ref Provider: NICOLAS GOLDEN Height(Cm): 173 BSA: Weight(Kg): 108 ?Order Provider: NICOLAS GOLDEN - PROCEDURES: Transesophageal Echo Report: Transesophageal echocardiogram including 2D imaging, spectral doppler and color doppler was performed in the cardiac catheterization laboratory. The procedure was monitored with automatic blood pressure monitoring, ECG tracings, and pulse oximetry. Sedation was achieved by anesthesia using Propofol IV. The transesophageal probe was placed in the esophagus posterior to the heart without any complications. The patient tolerated the procedure well. INDICATIONS: Atrial fibrillation, and Post-procedural. Measurements: FINDINGS: Study Quality: Technically difficult study. BP: Blood pressure: 131/96 mmHg. Left Ventricle: Grossly normal left ventricular systolic function based on limited views. Inadequate for detailed regional wall motion assessment. Unable to estimate left ventricular EF secondary to poor endocardial definition. Roughly normal left ventricular cavity size. Right Ventricle: Normal right ventricular size. Normal right ventricular systolic function. Left Atrium: Not well visualized. Saline contrast study positive for R to L shunt c/w PFO. LA Appendage: There is a left atrial appendage occlusion device in-situ. It appears well- seated. Visualization of the device is markedly suboptimal. There is no clear thrombus on the external surface of the device and there is no clear color Doppler flow around the device. However, the presence of either cannot be definitively excluded. Right Atrium: There is borderline enlargement of the right atrium. Atrial Septum: Atrial septum color Doppler interrogation consistent with a PFO. Mitral Valve: Grossly normal appearing mitral valve. No mitral valve regurgitation is seen. There is no evidence for significant mitral stenosis. Aortic Valve: There is no aortic regurgitation. No aortic stenosis. Normal functioning bioprosthetic aortic valve. Tricuspid Valve: Grossly normal appearing tricuspid valve. TR envelope inadequate to estimate RVSP. There is trace tricuspid regurgitation. Pulmonic Valve: Pulmonic valve not well visualized. Pericardium: Trivial pericardial effusion. Aorta: Normal aortic root size. 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 The ascending aorta is not well-visualized. Upper normal size descending thoracic aorta. Pulmonary Artery: Not well visualized. CONCLUSIONS: 1. [...] atrial appendage occlusion device in-situ. It appears well- seated. Visualization of the device is markedly suboptimal. There is no clear thrombus on the external surface of the device and there is no clear color Doppler flow around the device. However, the presence of either cannot be definitively excluded. Electronically Signed By: Kali Reddy MD 2023-12-04 10:22:45 ACTIVITY THERAPIST CC: ??Nicolas Golden MD Procedure Note Kali Reddy MD - 12/04/[address] [address] TRANSESOPHAGEAL ECHOCARDIOGRAM Patient Name: OMAR ADAM L : 1945 Study Date: 12/04/2023 9:42:37 AM Gender: M Tech: TC Ref Provider: NICOLAS GOLDEN Height(Cm): 173 BSA: Weight(Kg): 108 Order Provider: NICOLAS GOLDEN - PROCEDURES: Transesophageal Echo Report: Transesophageal echocardiogram including 2D imaging, spectral doppler andcolor doppler was performed in the cardiac catheterization laboratory. The procedure wasmonitored with automatic blood pressure monitoring, ECG tracings, and pulse oximetry.Sedation was achieved by anesthesia using Propofol IV. The transesophageal probe wasplaced in the esophagus posterior to the heart without any complications. The patienttolerated the procedure well. INDICATIONS: Atrial fibrillation, and Post-procedural. Measurements: FINDINGS: Study Quality: Technically difficult study. BP: Blood pressure: 131/96 mmHg. Left Ventricle: Grossly normal left ventricular systolic function based on limited views.Inadequate for detailed regional wall motion assessment. Unable to estimate leftventricular EF secondary to poor endocardial definition. Roughly normal left ventricularcavity size. Right Ventricle: Normal right ventricular size. Normal right ventricular systolicfunction. Left Atrium: Not well visualized. Saline contrast study positive for R to L shunt c/wPFO. LA Appendage: There is a left atrial appendage occlusion device in-situ. It appearswell- seated. Visualization of the device is markedly suboptimal. There is no clearthrombus on the external surface of the device and there is no clear color Doppler flowaround the device. However, the presence of either cannot be definitively excluded. Right Atrium: There is borderline enlargement of the right atrium. Atrial Septum: Atrial septum color Doppler interrogation consistent with a PFO. Mitral Valve: Grossly normal appearing mitral valve. No mitral valve regurgitation isseen. There is no evidence for significant mitral stenosis. Aortic Valve: There is no aortic regurgitation. No aortic stenosis. Normal functioningbioprosthetic aortic valve. Tricuspid Valve: Grossly normal appearing tricuspid valve. TR envelope inadequate toestimate RVSP. There is trace tricuspid regurgitation. Pulmonic Valve: Pulmonic valve not well visualized. Pericardium: Trivial pericardial effusion. Aorta: Normal aortic root size. 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 Upper normal size descending thoracicaorta. Pulmonary Artery: Not well visualized. CONCLUSIONS: 1. Grossly normal left ventricular systolic function based on limitedviews. Inadequate for detailed regional wall motion assessment. Unable to estimate leftventricular EF secondary to poor endocardial definition. Roughly normal left ventricularcavity size. 2. Normal right ventricular size. Normal right ventricular systolicfunction. 3. Not well visualized. Saline contrast study positive for R to L shuntc/w PFO. 4. Atrial septum color Doppler interrogation consistent with a PFO. 5. There is no aortic regurgitation. No aortic stenosis. Normalfunctioning bioprosthetic aortic valve. 6. Normal aortic root size. 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 Upper normal size descending thoracicaorta. 7. There is a left atrial appendage occlusion device in-situ. It appearswell- seated. Visualization of the device is markedly suboptimal. There is no clearthrombus on the external surface of the device and there is no clear color Doppler flowaround the device. However, the presence of either cannot be definitively excluded. Electronically Signed By: Kali Reddy MD 2023-12-04 10:22:45 ACTIVITY THERAPIST CC: Nicolas Golden MD us Nicolas Golden MD CV ECHO PROCEDURES Final Result documented in this encounter Visit Diagnoses Diagnosis Atrial fibrillation, new onset (CMS/HCC) (HCC)- Primary Atrial fibrillation, new onset (CMS/HCC) (HCC) documented in this encounter Care Teams Behavioral Health Rn Relationship Specialty Start Date End Date Radha Lozada MD [facility] [place] [address] PCP - General Family Medicine 06/25/23 04/29/24 Kali Reddy MD Consulting Physician Cardiology 05/19/19 Keaton Lynn MD [address] [place] [address] Consulting Physician Cardiothoracic Surgery 06/07/23 documented as of this encounter
--- OUTSIDE RECORDS SUMMARY | 2024-09-29 22:08 | XMS_ITS | Encounter Summary ---
Author Organization [facility] Healthcare Address [address] [place] [address] Care Team Providers Care Supervisor Metal Hanging Name Role Phone Kali Reddy MD Unavailable Keaton Lynn MD Unavailable Radha Lozada MD Primary Care Provider [phone] Reason for Visit * Auth/Cert (Routine) Specialty Diagnoses / Procedures Referred By Contac t Referred To Contact Diagnoses Atrial fibrillation, new onset (CMS/HCC) (HCC) Atrial fibrillation, new onset (CMS/HCC) (HCC) [I48.91] Procedures UT PERQ CLSR TCAT L ATR APNDGE W/ENDOCARDIAL IMPLNT UT ECHO JOVI GUID TCAT ICAR/VESSEL STRUCTURAL INTVN PERC ELROY CLOSE W/IMPLANT [id number] Referral ID Status Reason Start Date Expiration Date Visits Re quested Visits Authorized [id number] 1 1 Encounter Details Date Type Department Care Team (Late st Contact Info) Description 10/23/2023 10:30 AM NURSE ESTHETICIAN - 10/23/2023 12:00 PM NURSE ESTHETICIAN Surgery [facility] [address] [place] [id number] Nicolas Smith MD [address] [facility] [address] [place] [address] PERC ELROY CLOSE W/IMPLANT [id number] Surgery Details Date/Time Status Location OR Service Patient Class Case Class Case Type Trauma Case? 10/23/2023 10:30 AM Posted [facility] CARDIAC TRAVEL WRITER HYBRID E Cardiovascular Outpatient Elective Panel 1 Procedure LRB Anes Op Region Wound Class Comments PERC ELROY CLOSE W/IMPLANT [id number] N/A General Surgeon Surgeon Role Service Panel Nicolas Smith MD Primary Cardiovascular 1 Kali Reddy MD Assisting Cardiovascular 1 Case Notes T&S ordered(2units PC on hold)OFFICE TO CONTACT [facility] documented in this encounter Social History Tobacco Use Types Packs/Day Years [...] 07/30/2023 How often do you attend chur or holiness services? More than 4 times per year 07/30/2023 Do you belong to any clubs o r organizations such as cheondoism groups, unions, fraternal or athletic groups, or [...] place to sleep or slept in a long-term (including now)? No 07/30/2023 Personal Safety Answer Date Recorded Getting School Help Needed Denies 10/04 Sex and Gender Information Value Date Recorded Sex Assigned at Not on file Legal Sex Male 12:03 PM NURSE ESTHETICIAN Gender Identity Not on file Sexual Orientation Not on file documented as of this encounter Last Filed Vital Signs Vital Sign Reading Time Taken Comments Blood Pressure 103/68 10/23/2023 12:00 PM NURSE ESTHETICIAN Pulse 79 10/23/2023 12:00 PM NURSE ESTHETICIAN Temperature 36.2 ??C (97.2 ??F) 10/23/2023 1 1:52 AM NURSE ESTHETICIAN Respiratory Rate 17 10/23/2023 12:0 0 PM NURSE ESTHETICIAN Oxygen Saturation 92% 10/23/2023 12: 00 PM NURSE ESTHETICIAN Inhaled Oxygen Concentration - - Weight 108.3 kg (238 lb 12.1 oz) 10/23/2023 9:58 AM NURSE ESTHETICIAN Height 182.9 cm (6') 10/23/2023 9:58 AM NURSE ESTHETICIAN Body Mass Index 32.38 10/23/2023 9:58 AM NURSE ESTHETICIAN documented in this encounter Discharge Instructions * Discharge Instructions* Melina Bai RN - 10/23/2023 2:55 PM NURSE ESTHETICIAN Cardiac Laboratory [address] [place], [place] [address] CCL Discharge Instructions---Angiogram MEDICATIONS [] Do not take [...] for any reason without discussing with your medical services assistant first. - These medications may make you [...] home diet [] Special diet Instructed by Manager Poker ACTIVITY You have been given medications which [...] Signature/Title: Date and Time: Cardiac Laboratory [address] [place], [place] [address] [facility] Discharge Instructions---Angiogram MEDICATIONS [] Do [...] for any reason without discussing with your medical services assistant first. - These medications may make you [...] home diet [] Special diet Instructed by Manager Poker ACTIVITY You have been given medications which [...] for appointment [] Appointment scheduled for with . Additional Instructions: I understand and have received a copy of my discharge instructions Patient/Family Signature: Staff Signature/Title: Date and Time: E ESTHETICIAN documented in this encounter Medications at Time [...] documented in this encounter Progress Notes * Theodos, Nicolas, MD - 10/23/2023 9:13 AM CST [facility] [place] [place] Cardiology [address] [address] Cardiology Yariel Hills, MD Kali Reddy, MD Wellington Dugan, MD Parish Monae, MD Kilo Sims, MD Johnny Maher, MD Osmin Barbosa, MD Best Ramirez, MD Nicolas Smith, MD Everardo Briscoe, DO Javon Lopez, MD Rory Dowling, MD Clyde Stovall, EXCEPTIONAL NEEDS TEACHER Erin Monk, ALEX Smith, EXCEPTIONAL NEEDS TEACHER Patient Name: Omar Nolasco Provider: MEAGHAN Stout [...] This note was dictated with voice-recognition software, regional rehabilitation director errors may be present. Erin Monk NP E ESTHETICIAN documented in this encounter Miscellaneous Notes * Post-Procedure Note - Nicolas Smith MD - 10/23/2023 11:39 AM CST Images from the original note were not included. [facility] [place] [place] Cardiology [address] [facility], [id number], [address] Watchman Left Atrial Appendage Occluder Placement Procedure Report 78 year old male with atrial fibrillation with elevated CHADSVASC score and elevated bleeding risk referred for Watchman device. Attending physicians: Nicolas Smith MD Access:8F RFV ->14F for device placement Catheter:Pigtail Injection:Left atrial appendage Closure:Perclose Anticoagulation:[id number] Heparin Air Kerma:115 mGy Fluoro time:5.2 min [...] teams. Nicolas Smith MD 10/23/23 11:39 AM E ESTHETICIAN documented in this encounter Plan of Treatment Not on file documented as of this encounter Procedures Procedure Name Priority Date/Time Associated Diagnosis Comments JOVI GUIDANCE DURING CARDIAC STRUCTURAL INTVN [id number] Routine 10/23/2023 12:07 PM NURSE ESTHETICIAN Atrial fibrillation, new onset (CMS/HCC) (HCC) PERC ELROY CLOSURE W/IMPLANT (WATCHMAN) [id number] Routine 10/23/2023 11:43 AM NURSE ESTHETICIAN Atrial fibrillation, new onset (CMS/HCC) (HCC) POCT ACTIVATED CLOTTING TIME, LOW RANGE Routine 10/23/2023 11:22 AM NURSE ESTHETICIAN ECG 12-LEAD STAT 10/23/2023 9:47 AM NURSE ESTHETICIAN Atrial fibrillation, new onset (CMS/HCC) (HCC) TYPE AND SCREEN STAT 10/23/2023 9:44 AM NURSE ESTHETICIAN Atrial fibrillation, new onset (CMS/HCC) (HCC) documented in this encounter Results * JOVI Guidance During Cardiac Structural Intvn [id number] (10/23/2023 12:07 PM NURSE ESTHETICIAN) Anatomical Region Laterality Modality Echocardiography 10/23/2023 11:0 4 AM NURSE ESTHETICIAN Narrative 10/23/2023 12:16 PM NURSE ESTHETICIAN [place] [address] [place] [address] TRANSESOPHAGEAL ECHOCARDIOGRAM Patient Name: OMAR NOLASCO : 1945 Study Date: 10/23/2023 11:04:22 AM Gender: M Tech: NILSA Location: [facility] Ref Provider: NICOLAS SMITH ?Height(Cm): 183 BSA: [...] end of the case. Predominant flow is [id number]. Mitral Valve: Grossly normal appearing mitral valve. [...] end of the case. Predominant flow is [id number]. 4. There is no aortic regurgitation. No [...] Signed By: Kali Reddy MD 2023-10-23 12:15:29 NURSE ESTHETICIAN CC: ??Nicolas Smith MD Procedure Note Kali Reddy MD - 10/23/2023 [facility] [address] [place] [address] TRANSESOPHAGEAL ECHOCARDIOGRAM Patient Name: OMAR NOLASCO : [...] the end of the case.Predominant flow is [id number]. Mitral Valve: Grossly normal appearing mitral valve. [...] the end of the case.Predominant flow is [id number]. 4. There is no aortic regurgitation. No [...] Signed By: Kali Reddy MD 2023-10-23 12:15:29 NURSE ESTHETICIAN CC: Nicolas Smith MD Nicolas Smith MD CV ECHO PROCEDURES Final Result * PERC ELROY CLOSURE W/IMPLANT (WATCHMAN) [id number] (10/23/2023 11:43 AM NURSE ESTHETICIAN) Anatomical Region Laterality Modality X-Ray Angiograph y Narrative 10/23/2023 11:48 AM NURSE ESTHETICIAN Images from the original result were not included. [facility] [place] [place] Cardiology ?? [address] [facility], [id number] [place], [place], [address] ?? Watchman Left Atrial Appendage Occluder Placement Procedure Report 78 year old male with atrial fibrillation with elevated CHADSVASC score and elevated bleeding risk referred for Watchman device. Attending physicians: ??Nicolas Smith MD Access:8F RFV ->14F for device placement Catheter:Pigtail Injection:Left atrial appendage Closure:Perclose Anticoagulation:75707Bjeym Heparin Air Kerma:115 mGy Fluoro time:5.2 min [...] clotting time, low range (10/23/2023 11:22 AM NURSE ESTHETICIAN) ACT 373(H) 123 - 168 sec [facility] Blood 10/23/2023 11:2 2 AM NURSE ESTHETICIAN 10/23/2023 11:22 AM NURSE ESTHETICIAN us Nicolas Smith MD LAB POCT ORDERABLES - DEVICE Fin al Result Performing Organization Address [facility] Co de Phone Number [facility] [address] Department [place] [address] * ECG 12 lead (10/23/2023 9:47 AM NURSE ESTHETICIAN) 10/23/2023 9:47 AM NURSE ESTHETICIAN Narrative [facility] - 10/23/2023 2:13 PM NURSE ESTHETICIAN Vent Rate: 63 bpm RR Interval: 943 msec UT Interval: 161 msec QRS Duration: 108 msec QT Interval: 426 msec QTC Interval: 434 msec P-R-T [place]: 26 - -54 - 79 degrees IMPRESSION: SINUS RHYTHM WITH OCCASIONAL SUPRAVENTRICULAR PREMATURE COMPLEXES LEFT ANTERIOR FASCICULAR BLOCK ??[QRS AXIS <= -45, QR IN I, RS IN II] NONSPECIFIC T-WAVE ABNORMALITY ABNORMAL ECG Electronically Signed By: Osmin Barbosa MD us Nicolas Smith MD ECG ORDERABLES Final Result Performing Organization Address [facility] Co de Phone Number [facility] * Type and screen (10/23/2023 9:44 AM NURSE ESTHETICIAN) [place], indirect Negative ABO Rh O Positive [facility] Blood 10/23/2023 9:44 AM NURSE ESTHETICIAN 10/23/2023 10:08 AM NURSE ESTHETICIAN Narrative [facility] - 10/23/2023 11:10 AM NURSE ESTHETICIAN Has the patient had Daratumumab or Isatuximab in the past 6 months?->Unknown Nicolas Smith MD LAB BLOOD BANK TEST ORDERABLES F inal Result [facility] [address] Department [place] [address] documented in this encounter Visit Diagnoses Diagnosis Atrial fibrillation, new onset (CMS/HCC) (HCC)- Primary Atrial fibrillation, new onset (CMS/HCC) (HCC) documented in this encounter Admitting Diagnoses Diagnosis Atrial fibrillation, new onset (CMS/HCC) (HCC) documented in this encounter Administered Medications Inactive Administered Medications - up to 3 most recent administrations Medication Order MAR Action Action Date Dose Rate Site heparin in 0.9% sodium chloride 1,000 units/500 mL (2 unit/mL) infusion (premix) Code/trauma/sedation medication, Starting on Sun10/23/23 at 1100, Intra-Procedure (CV) Given 10/23/2023 11:00 AM NURSE ESTHETICIAN 500 mL Given 10/23/2023 11:00 AM NURSE ESTHETICIAN 500 mL Given 10/23/2023 11:00 AM NURSE ESTHETICIAN 500 mL ioversoL (OPTIRAY 350) injection Code/trauma/sedation medication, Starting on Sun10/23/23 at 1135, Intra-Procedure (CV) Given 10/23/2023 11:35 AM NURSE ESTHETICIAN 36 mL lidocaine-EPINEPHrine (XYLOCAINE with EPI) 2 %-1:200,000 preservative free injection Code/trauma/sedation medication, Starting on Sun10/23/23 at 1135, Intra-Procedure (CV), Indications: Administration of Local AnesthesiaIndications:Administrat ion of Local Anesthesia Given 10/23/2023 11:35 AM NURSE ESTHETICIAN 10 mL Right Groin sodium chloride 0.9% infusion 15 mL/hr, intravenous, Continuous, Starting on Sun10/23/23 at 1015, Pre-Procedure (CV)Indications:Atrial fibrillation, new onset (CMS/HCC) (HCC) Restarted 10/23/2023 11:57 AM NURSE ESTHETICIAN New Bag 10/23/2023 10:49 AM NURSE ESTHETICIAN 50 mL/hr documented in this encounter Active and Recently Administered Medications Times are shown in NURSE ESTHETICIAN. Continuous Medication Order 2023 10/22/2023 10/23/2023 sodium [...] dextrose (GLUTOSE) 40 % gel 15 g 1 01/09/20 24 diphenhydrAMINE (BENADRYL) 5 0 mg/mL injection 12.5 mg 1 10/23/2023 fentaNYL (SUBLIMAZE) preserv ative free injection 25 mcg 1 10/23/2023 fentaNYL (SUBLIMAZE) preserv ative free injection 50 mcg 1 10/23/2023 glucagon injection 1 mg 1 10/23/2023 haloperidol (HALDOL) injection 1 mg 1 10/23 insulin lispro (HumaLOG, ADM ELOG) 100 unit/mL injection 0-5 Units 1 10/23/2023 labetaloL (NORMODYNE,TRANDAT E) injection 5 mg 1 10/23/2023 meperidine (DEMEROL) preserv ative free injection 12.5 mg 1 10/23/2023 naloxone (NARCAN) 0.4 mg/mL injection 0.04-0.4 mg 1 10/23/2023 ondansetron (ZOFRAN) injection 4 mg 1 10/23 racepinephrine (ASTHMANEFRIN ) 2.25 % nebulizer solution 0.5 mL 1 10/23/2023 sodium chloride 0.9% infusion 1 10/23/2023 Discharge Count Last Ordered Date First Orde red Date DISCHARGE PATIENT 1 10/23/2023 documented in this encounter Care Teams Supervisor Metal Hanging Relationship Specialty Start Date End Date Radha Lozada MD [facility] [place] [address] PCP - General Family Medicine 06/25/23 04/29/24 Kali Reddy MD Consulting Physician Cardiology 05/19/19 Keaton Lynn MD [address] [facility] [address] [place] [address] Consulting Physician Cardiothoracic Surgery 06/07/23 documented as of this encounter
--- OUTSIDE RECORDS SUMMARY | 2024-09-29 22:08 | XMS_ITS | Encounter Summary ---
Author Organization [facility] [employer] [facility] Address [address] [place] [address] Phone Care Team Providers Care Medical Transport Specialist Name Role Phone Kali Reddy MD Unavailable [phone] Keaton Lynn MD Unavailable [phone] Radha Lozada MD Primary Care Provider [phone] Reason for Referral * MRI/CAT/PET Scan (Routine) - Authorized Specialty Diagnoses / Procedures Referred By Contac t Referred To Contact Radiology Diagnoses Vertebrobasilar dolichoectasia Procedures CTA Head Neck W WO Contrast Josse Brooks MD [address] [place] [address] Phone: tel: fax: [facility] [address] [place] [address] Referral ID Status Reason Start Date Expiration Date V isits Requested Visits Authorized [id number] Authorized 11/01/2023 11/30/[address] SERVICE PROFESSIONAL Encounter Details Date Type Department Care Team (Late st Contact Info) Description 11/01/[address] [place] [address] [place] [address] Josse Brooks MD [address] [place] [address] Social History Tobacco Use Types Packs/Day Years [...] How often do you attend chur or pentecostal services? More than 4 times per year [...] place to sleep or slept in a detention (including now)? No 07/30/2023 Personal Safety Answer Date Recorded Getting School Help Needed Denies 10/04 Sex and Gender Information Value Date Recorded Sex Assigned at Not on file Legal Sex Male 12:03 PM DIRECT SERVICE PROFESSIONAL Gender Identity Not on file Sexual Orientation Not on file Occupation Industry Job Start Date Job End Date Retired Not on file Not on file Not on file documented as of this encounter Miscellaneous Notes * Telephone Encounter - Carin Toribio - 11/02/2023 12:21 PM CST Patient is currently scheduled for both CTA Head/Neck and Follow Up appt with Dr. Brooks on 10/23/2024 at the [facility]. Patient will need to be NPO 2 hours prior to arrival for registration for CTA appt at 9:30 am ([facility] - 3rd floor registration desk), with CTA scheduled at 10:00am. Patient will then go to [address] at the [facility] to follow up with Dr. Brooks at 11:00 am (with arrival for registration at 10:45 am). Appointment reminder letters and map have been mailed to the patient's home. CT SERVICE PROFESSIONAL * Telephone Encounter - Musa Rolle CMA - 11/01/2023 11:09 AM DIRECT SERVICE PROFESSIONAL Per AV OV I have recommended imaging surveillance with repeat CTA in 1 year, office visit same day. 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
--- OUTSIDE RECORDS SUMMARY | 2024-09-29 22:08 | XMS_ITS | Encounter Summary ---
Author Organization [facility] Healthcare Address [address] [place] [address] Care Team Providers Care Quality Improvement Coordinator (Rn) Name Role Phone Kali Reddy MD Unavailable [phone] Keaton Lynn MD Unavailable [phone] Radha Lozada MD Primary Care Provider [phone] Encounter Details Date Type Department Care Team (Late st Contact Info) Description 09/14/2023 Telephone [facility] [address] [place] [address] Jass Tamez EP-C Social History Tobacco Use Types Packs/Day Years [...] often do you attend chur ch or baptism services? More than 4 times per year 07/30/2023 Do you belong to any clubs o r organizations such as quaker groups, unions, fraternal or athletic groups, or [...] on file Legal Sex Male 12:03 PM MANAGER DATA Gender Identity Not on file Sexual Orientation Not on file documented as of this encounter Miscellaneous Notes * Telephone Encounter - Jass Tamez EP-C - 09/14/2023 9:14 AM CST Final Follow-up Call Questions Medications: Patient reports taking all medications as prescribed. Patient denies any questions regarding medications at this time. Cardiac Rehab Facility: Asked if the [facility] facility has contacted them yet. Patient states that they have completed about a month of the program thus far. Is patient exercising? Patient's states he is recovering very well, going to rehab multiple times per week, is on thego but also abiding his restrictions. He stays active daily. Slab Polisher Follow-up Appointment: Patient states they had follow up appointment with Dr. Lynn on August 16. Readmission: Patient states they have not been readmitted to a hospital over the past 30 days. Final follow up call by Cardiac Rehab Navigators. GER DATA documented in this encounter Plan of Treatment Not on file documented as of this encounter Visit Diagnoses Not on filedocumented in this encounter Care Teams Quality Improvement Coordinator (Rn) Relationship Specialty Start Date End Date Radha Lozada MD [facility] [place] [address] PCP - General Family Medicine 06/25/23 04/29/24 Kali Reddy MD Consulting Physician Cardiology 05/19/19 Keaton Lynn MD [address] [place] [address] Consulting Physician Cardiothoracic Surgery 06/07/23 documented as of this encounter
--- OUTSIDE RECORDS SUMMARY | 2024-09-29 22:08 | XMS_ITS | Encounter Summary ---
Author Organization [facility] Healthcare Address [address] [place] [address] Care Team Providers Care Barrel Washer Name Role Phone Kali Reddy MD Unavailable [phone] Keaton Lynn MD Unavailable Gabby Li NP Primary Care Provider [phone] Reason for Referral * MRI/CAT/PET Scan (Routine) - Authorized Specialty Diagnoses / Procedures Referred By Contac t Referred To Contact Radiology Diagnoses Aneurysm of ascending aorta without rupture (HCC) Procedures CTA Chest W Contrast Kali Reddy MD [address] [facility] [address] [place] [address] Phone: tel: fax: [place] [id number] [place] [address] Referral ID Status Reason Start Date Expiration Date V isits Requested Visits Authorized [id number] Authorized 05/26/2024 06/25/2025 1 1 Encounter Details Date Type Department Care Team (Latest Contact Info) Description 05/26/2024 2:00 PM CDT Office Visit [facility] Cardiology [address] [facility] [address] [place] [address] Kali Reddy MD [address] [place] [address] Hypercholesterolemia (Primary Dx); Aneurysm of ascending aorta without rupture (HCC); Atrial fibrillation, unspecified type (HCC) Social History Tobacco Use Types Packs/Day Years [...] How often do you attend chur or judaism services? More than 4 times per year 07/30/2023 Do you belong to any clubs o r organizations such as yarsanism groups, unions, fraternal or athletic groups, or [...] place to sleep or slept in a penitentiary (including now)? No 07/30/2023 Personal Safety Answer Date Recorded Have you ever been in or are you currently in a harmful physical or emotional relationship or is someone making you feel afraid or unsafe? 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 Gender Identity Not on file Sexual Orientation Not on file Occupation Industry Job Start Date Job End Date Retired Not on file Not on file Not on file documented as of this encounter Last Filed Vital Signs Vital Sign Reading Time Taken Comments Blood Pressure 138/82 05/26/2024 2:33 PM CDT Pulse 61 05/26/2024 2:33 PM CDT Temperature - - Respiratory Rate - - Oxygen Saturation - - Inhaled Oxygen Concentration - - Weight 110.9 kg (244 lb 6.4 oz) 05/26/2024 2:33 PM CDT Height - - Body Mass Index 33.15 04/30/2024 9:43 AM CDT documented in this encounter Ordered Prescriptions Prescription Sig Dispense Quantity Refills Last Filled Start Date End Date losartan (COZAAR) 25 mg tablet Take 1 tablet (25 mg total) by mouth daily 90 tablet 3 05/26/2024 05/26/2025 amoxicillin (AMOXIL) 500 mg tablet/capsule Take 4 caps (2000 mg) 1 hour prior to dental procedures. 05/26/2024 02/02/2038 documented in this encounter Progress Notes * Kali Reddy MD - 05/26/2024 2:00 PM CDT Images from the original note were not included. [facility] Cardiology [address] [facility] [address], [place] [address] Cardiology MD Yariel Das, MD Kali Reddy, MD Parish Monae, MD Kilo Sims, MD Johnny Maher, MD Osmin Barbosa, MD Nicolas Golden, MD Best Ramirez, MD Javon Lopez, MD Rory Dowling, MD Erin Monk, SWING TENDER Elise Kirkpatirck, SWING TENDER Kali Devries, PA Radha Hernandez, PA Patient Name: Omar Adam Provider: Kali Reddy MD : 1945 Date of Service: 05/26/2024 Referring: Guillermo TESTING/DATA: Asc Ao aneurysm of 5 cm per OSH read at end of 2014. Has grown 1 cm in 4 years. Cardiac catheterization 08/2015: Nonobstructive coronary artery disease. CMR 11/2015: Normal biventricular function. Trileaflet aortic valve. Chest MRA 2015: Compromised exam. Ascending aorta 5.2 cm Chest CTA 11/2016: Maximum dimension 5.1 cm. CTA 06/2018: Stable aneurysm. Maximum dimension 4.9 cm at the ascending aorta. CTA chest 05/2019: Maximum dimension 4.9 cm, stable. CTA chest 05/2020: Maximum dimension 4.9 cm, stable. CTA chest 05/2021: 5.1 cm ascending aorta, stable (prior remeasured). Chest CTA 05/2022: 5.2 cm asc Ao, stable to minimal increase in size. Chest CTA 05/2023: 5.2 cm asc Ao, stable. TTE 06/2023: EF 60%. >= mild AR. 5.1 asc Ao. LHC 06/2023: Normal cors. EDP 15. Aortic root replacement and 25 mm BP-SAVR, hemiarch replacement 06/2023 TTE 07/2023: EF 60%. NlDFxn. Sev LVH. Normal BP-AVR. KELLEY/pLAAO 10/2023: EF 60-65%. Sev LVH. Normal BP-AVR. + pLAAO. KELLEY 11/2023: + PFO. Normal BP-AVR. Normal pLAAO device as best as can be determined. 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 Omar Adam is a very pleasant 78 y.o. male with a history which includes thoracic aortic aneurysm (status post surgical aortic root replacement with hemiarch, he has elected to continue with annual postoperative surveillance chest CTAs), a history of BP-SAVR, hyperlipidemia and atrial fibrillation (status post pLAAO) who returns to clinic. I last saw him in clinic about a year ago. At that time I referred him to Dr. Lynn for consideration of aortic repair. I started him on nifedipine for better blood pressure control. He did undergo surgical aortic repair and bioprosthetic AVR. Fairly shortly after that hospitalization he was again hospitalized with a severe GI bleed and atrial fibrillation. The decision was made to proceed with pLAAO which he did undergo successfully. He was most recently seen in our clinic by one of our physician assistants in April. It seems he was doing fairly well at that time. This is his annual follow-up appointment. He had a chest CTA performed earlier today which was ordered when I last saw him in clinic about a year ago. The patient returns to clinic feeling reasonably well. No chest discomfort of any sort and no dyspnea. ALLERGY Patient has no known allergies. MEDICATIONS Outpatient Encounter Medications as of 05/26/2024 Medication Sig Dispense Refill acetaminophen (TylenoL) 325 mg tablet Take 2 tablets (650 mg total) by mouth every 6 (six) hours asneeded for pain aspirin 81 mg enteric coated tablet Take 1 tablet (81 mg total) by mouth daily 30 tablet 11 atorvastatin (LIPITOR) 40 mg tablet Take 1 tablet (40 mg total) by mouth daily 90 tablet 3 metoprolol tartrate (LOPRESSOR) 25 mg immediate release tablet Take 1 tablet (25 mg total) by mouth2 (two) times a day 180 tablet 3 amoxicillin (AMOXIL) 500 mg tablet/capsule Take 4 caps (2000 mg) 1 hour prior to dental procedures. pantoprazole DR (PROTONIX) 40 mg EC tablet Take 1 tablet (40 mg total) by mouth 2 (two) times a day60 tablet 0 Facility-Administered Encounter Medications as of 05/26/2024 Medication Dose Route Frequency Provider Last Rate Last Admin [COMPLETED] ioversoL (OPTIRAY 350) syringe 100 mL 100 mL intravenous Once in imaging Chucho Reddy MD 95 mL at 05/26/24 1338 PHYSICAL EXAM: BP 138/82 Pulse 61 Wt 110.9 kg (244 lb 6.4 oz) BMI 33.15 kg/m?? General: No apparent distress. Neck: JVP is unclear. Respiratory: Clear to auscultation bilaterally with good air movement. Cardiac: Regular rate and rhythm. 2/6 systolic ejection murmur. Vascular: 2+ pulses. Extremities: Minimal nonpitting lower extremity edema. ASSESSMENT & PLAN: Ascending aortic aneurysm Status post surgical repair. We discussed the frequency with which he would like to surveil this with chest CTA s, if at all. He opted to continue with annual chest CTA s. I have ordered a chest CTA to be performed in one year. Atrial fibrillation Status post pLAAO. No changes. BP-AVR Predental amoxicillin which I discussed with him. Continue baby dose aspirin. Pure hypercholesterolemia Continue atorvastatin. Blood pressure control is quite borderline. I have put him on losartan 25 mg daily. Checking a CMP and a lipid panel. The ASCVD Risk score (Gypsum DK, et al., 2019) failed to calculate for the following reasons: Cannot find a previous HDL lab The valid total cholesterol range is 130 to 320 mg/dL Will have him return to clinic in one year with a chest CTA at that time. Kali Reddy MD documented in this encounter Plan of Treatment Scheduled Orders Name Type Priority Associated Diagnoses Order Schedule Comprehensive metabolic panel Lab Routine Hypercholesterolemi a Expected: 05/26/2024 (Approximate), Expires: 10/12/2051 Lipid panel Lab Routine Hypercholesterolemi a Expected: 05/26/2024 (Approximate), Expires: 10/12/2051 CTA Chest W Contrast Imaging Schedule Cisco Carrasquillo Routine (OP Routine) Aneurysm of ascending aorta without rupture (HCC) Expected: 05/26/2025, Expires: 10/12/2051 documented as of this encounter Visit Diagnoses Diagnosis Hypercholesterolemia- Primary Pure hypercholesterolemia Aneurysm of ascending aorta without rupture (HCC) Atrial fibrillation, unspecified type (HCC) documented in this encounter Care Teams Barrel Washer Relationship Specialty Start Date End Date Gabby Li NP [address] [address] PCP - General Family Medicine 04/30/24 Kali Reddy MD Consulting Physician Cardiology 05/19/19 Keaton Lynn MD [address] [facility] [address] [place] [address] Consulting Physician Cardiothoracic Surgery 06/07/23 documented as of this encounter
--- OUTSIDE RECORDS SUMMARY | 2024-09-29 22:08 | XMS_ITS | Encounter Summary ---
Author Organization [facility] Healthcare Address [address] [place] [address] Care Team Providers Care Book Or Script Editor Name Role Phone Kali Reddy MD Unavailable [phone] Keaton Lynn MD Unavailable Radha Lozada MD Primary Care Provider [phone] Reason for Visit * Auth/Cert (Routine) Specialty Diagnoses / Procedures Referred By Contac t Referred To Contact Diagnoses Atrial fibrillation, new onset (CMS/HCC) (HCC) Atrial fibrillation, new onset (CMS/HCC) (HCC) [I48.91] Procedures HI PERQ CLSR TCAT L ATR APNDGE W/ENDOCARDIAL IMPLNT HI ECHO KELLEY GUID TCAT ICAR/VESSEL STRUCTURAL INTVN PERC ELROY CLOSE W/IMPLANT [id number] Referral ID Status Reason Start Date Expiration Date Visits Re quested Visits Authorized [id number] 1 1 Encounter Details Date Type Department Care Team (Late st Contact Info) Description 10/23/2023 10:49 AM 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 LAUNDRY WORKER Anesthesia Event [facility] [address] [place] [address] Brayden Denney MD [address] [facility] [place] [address] Danica Rooney CRNA [address] [place] [address] (work) Anesthesia Record Procedure Summary Procedure Name Responsible Anesthesiologist Anesthesia Start Time Anesthesia Stop Time PERC ELROY CLOSE W/IMPLANT [id number] Brayden Denney MD 10/23/23 1049 10/23/23 1156 Events Date Time Event Comment 10/23/2023 1037 1049 An Start 1049 An Start Data 1053 An Induction The patient was reevaluated immediately before moderate or deep sedation use and before anesthesia induction. 1057 An Intubation 1102 Anesthesia Ready 1127 Quick Note ACT 373 1144 An Extubation 1146 an stop data 1154 Handoff to RN I completed my handoff to the receiving nurse during which we: 1. Patient identified 2. Responsible provider identified 3. Pertinent medical history reviewed 4. Procedure type and surgical course discussed 5. Intraoperative anesthetic management and any significant issues discussed 6. Expectations and concerns for postop period discussed 7. Questions solicited from receiving nurse 8. Patient disposition at the time of handoff: No value filed. 1156 An Stop 1222 Release from care Meds Name Total fentaNYL 50 mcg lidocaine (CARDIAC) syringe 2 % 5 mL propofol 200 mg rocuronium 50 mg phenylephrine 100 mcg/mL 300 mcg sugammadex 250 mg ondansetron 4 mg dexamethasone 4 mg/ml 4 mg ceFAZolin 2,000 mg heparin 1,000 unit/ml 13,000 Units phenylephrine (OLIVIA-SYNEPHRIN E) 10 mg in sodium chloride 0.9% 100 mL solution 0.83 mg protamine 50 mg sodium chloride 0.9% infusion 600 mL * Agents Name O2 N2O Air Sevoflurane Inspired Sevoflurane * Blood No blood administrations on file. Lines, Drains, and Airways Type Details Placement Removal RETIRED Surgical Site 07/10/23; 1243; Mid-line; Sternum; 09/16/24 (Retired LDA, Removed/Completed by [facility] with LDA Utility); 1213 (Retired LDA, Removed/Completed by [facility] with LDA Utility) 07/10/23 1243 by Korina Montez RN 09/16/24 1213 by Discharge Provider, Automatic RETIRED Surgical Site 07/11/23; 1900; Right; Groin; 09/16/24 (Retired LDA, Removed/Completed by [facility] with LDA Utility); 1213 (Retired LDA, Removed/Completed by [facility] with LDA Utility) 07/11/23 1900 by Carlita Meier RN 09/16/24 1213 by Discharge Provider, Automatic Peripheral IV Placement Date: 07/27/23; Placement Time: 1000; Catheter Size: 18 G; Orientation: Anterior, Proximal, Right; Location: Forearm; Removal Date: 05/26/24 07/27/23 1000 by Tam Jimenez RN 05/26/24 0000 by Javon Candelaria RN Peripheral IV Placement Date: 10/23/23; Placement Time: 0951; Catheter Size: 20 G; Orientation: Anterior, Left, Proximal; Location: Forearm; Site Prep: Chlorhexidine; Inserted by: MAHIN Alcocer; Insertion Attempts: 1; Removal Date: 10/23/23; Removal Time: 1535 10/23/23 0951 by Melina Bai RN 10/23/23 1535 by Melina Bai RN ETT Placement Date: 10/23/23; Placement Time: 1104 (created via procedure documentation); Mask Ventilation: 1; Technique: Video laryngoscopy; Type: ETT - single; Single Lumen Tube Size: 8 mm; Cuffed: Yes; Laryngoscope: Elen; Blade Size: 4; Location: Oral; Insertion Attempts: 1; Placement Verification: Auscultation, Capnometry; Removal Date: 10/23/23; Removal Time: 1144 10/23/23 1104 by Danica Rooney CRNA 10/23/23 1144 by Danica Rooney CRNA documented in this encounter Social History Tobacco [...] 07/30/2023 How often do you attend [facility] or [facility] services? More than 4 times per year 07/30/2023 Do you belong to any clubs o r organizations such as jew groups, unions, fraternal or athletic groups, or [...] place to sleep or slept in a usp (including now)? 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 Gender Identity Not on file Sexual Orientation Not on file documented as of this encounter OR Notes * Anesthesia Postprocedure Evaluation - Brayden Denney MD - 10/23/2023 12:22 PM CST Patient: Omar Adam Procedure Summary Date: 10/23/23 Room / Location: [facility] HYBRID LAB E / [facility] CARDIAC PATIENT TRANSPORTER Anesthesia Start: 1049 Anesthesia Stop: 1156 Procedure: PERC ELROY CLOSE W/IMPLANT [id number] Diagnosis: Atrial fibrillation, new onset (CMS/HCC) (HCC) (Atrial fibrillation, new onset (CMS/HCC) (HCC) [I48.91]) Providers: Nicolas Golden MD Responsible Provider: Brayden Denney MD Anesthesia Type: general ASA Status: 3 Anesthesia Type: general Last vitals BP 112/74 Pulse 73 Temp 36.2 ??C (97.2 ??F) (Temporal) Resp 20 SpO2 97% Anesthesia Post Evaluation Patient location during evaluation: PACU Patient participation: complete - patient participated Level of consciousness: follows simple commands and fully awake Pain management: adequate Airway patency: adequate Cardiovascular status: acceptable and hemodynamically stable Respiratory status: acceptable Hydration status: acceptable Pt is: normothermic Nausea/Vomiting status: none No notable events documented. STIC LAUNDRY WORKER * Anesthesia Procedure Notes - Danica Rooney CRNA - 10/23/2023 11:04 AM CSTAssociated Order(s): Airway Airway Patient location: OR Urgency: elective Indications for airway management: anesthesia Difficult airway: no Staff: Supervising provider: Brayden Denney MD Placed by: WHOLESALE ACCOUNT MANAGER: Danica Rooney CRNA Emergent airway documentation: Risks and benefits discussed: yes Consent obtained: yes Consent given by: patient Airway prep: Preoxygenated: yes Patient position: sniffing Mask difficulty assessment: 1 - vent by mask Sedation level during airway: GA Final airway details: Final airway type: endotracheal airway Tube type: ETT ETT size: 8.0 mm Cuffed: yes Technique used for successful ETT placement: video laryngoscopy Devices/Methods used in placement: stylet Insertion site: oral Blade type: Elen Video blade type: Seymour Blade size: 4 Cormack-Lehane (video): grade I - full view of glottis Cuff volume: 10 mL Cuff inflated with: air ETT to teeth: 23 cm Placement verified by: auscultation and CO2 detection Airway secured with: silk tape Number of attempts: 1 STIC LAUNDRY WORKER * Anesthesia Preprocedure Evaluation - Brayden Denney MD - 10/23/2023 10:16 AM CST Images from the original note were not included. Anesthesia Evaluation Omar Adam is a 78 y.o. male thoracic aortic aneurysm status post root replacement on 07/10/[address] Lynn, he was discharged home on 07/14, history of hypertension and sleep apnea on CPAP Hgb 7.4 07/28/23 after 5 PRBC Procedure(s): PERC ELROY CLOSE W/IMPLANT [id number] Pre-Op Diagnosis Codes: * Atrial fibrillation, new onset (CMS/HCC) (HCC) [I48.91] HISTORY Past Medical History Neurological Neuro/Psych system: negative Cardiovascular + Hypertension + Hyperlipidemia + CAD + Atrial fibrillation/flutter - Current Rhythm: non-fibrillation/flutter. Rhythm type: paroxysmal (multiple episodes < 7 days). + PAD/Aorta disease (open aortic root replacement 07/10/23) - prior open revascularization. Comments: 08/03/2023 TTE Conclusions: 1. Normal global and probably normal regional left ventricular systolic function. Ejection Fraction is estimated at 60 %. Normal left ventricular diastolic function. The left ventricular cavity is low normal in size. Marked concentric left ventricular hypertrophy. 2. Normal right ventricular systolic function. Normal right ventricular size. 3. There is no aortic stenosis. There is no aortic regurgitation. Normal functioning bioprosthetic aortic valve. Electronically Signed By: Kali Reddy MD 2023-08-03 12:57:45 CDT Respiratory + Sleep apnea (MONIKA) Hepatic / Heme + History of anemia Gastrointestinal GI system: negative Renal / Renal/ system: negative Musculoskeletal/Pain + Osteoarthritis Endocrine / Other + Obesity (BMI >30) Functional Capacity Functional capacity: <4 METs TTE 07/27/23 Conclusions: 1. Normal global and regional left ventricular systolic function. Ejection Fraction is measured at (Simpsons) 63 %. Normal left ventricular cavity size. Moderate to marked concentric left ventricular hypertrophy. 2. Normal appearance of the tricuspid leaflets. Mild tricuspid regurgitation. Normal right ventricular systolic pressure. Electronically Signed By: Parish Monae MD, [facility] 2023-07-28 05:05:41 CDT Patient Active Problem List Diagnosis Ascending aortic aneurysm (HCC) Aortic aneurysm (HCC) Asbestos-induced pleural plaque Atypical chest pain Backache Basal cell carcinoma of skin Disorder of bursae of shoulder region Full thickness rotator cuff tear Incomplete tear of rotator cuff Localized, primary osteoarthritis Night sweats Obstructive sleep apnea syndrome Radiotherapy follow-up Acute upper respiratory infection Sinusitis Tibialis tendinitis Aneurysm of ascending aorta without rupture (HCC) Acute blood loss anemia Melena Premature atrial contractions Syncope and collapse Hypercholesterolemia Saccular aneurysm Class 1 obesity due to excess calories with serious comorbidity and body mass index (BMI) of 31.0 to 31.9 in adult Atrial fibrillation, new onset (CMS/HCC) (HCC) Past Medical History: Diagnosis Date Anemia Arthritis Arthritis; Comments: [facility] 10/19/2015 - Atrial fibrillation (CMS/HCC) (HCC) Coronary artery disease HX OTHER MEDICAL ascending aortic aneurysm; Comments: [facility] 10/19/2015 - Hypertension Hypertension Sleep apnea Sleep apnea Past Surgical History: Procedure Laterality Date AORTIC VALVE REPLACEMENT 07/10/2023 25 mm Resilia Tissue valve ARTERIAL ANEURYSM REPAIR 07/10/2023 Tissue Composite Aortic Root Replacement, Replace Jose-Arch No Known Allergies Med List Status: Nurse Complete Set By: Melina Bai RN at 10/23/2023 9:47 AM Taking? Last Dose Start Date End Date Provider acetaminophen (TylenoL) 325 mg tablet Past Week -- -- ProviderSandra MD aspirin 81 mg enteric coated tablet 10/23/2023 07/15/23 07/14/24 Frederic Rushing PA Take 1 tablet (81 mg total) by mouth daily atorvastatin (LIPITOR) 40 mg tablet 10/22/2023 07/25/23 -- Keaton Lynn MD Take 1 tablet (40 mg total) by mouth daily metoprolol tartrate (LOPRESSOR) 25 mg immediate release tablet 10/23/2023 07/25/23 -- Keaton Lynn MD Take 1 tablet (25 mg total) by mouth 2 (two) times a day pantoprazole DR (PROTONIX) 40 mg EC tablet () 10/23/2023 07/31/23 10/22/23 Jonn Willis MD Take 1 tablet (40 mg total) by mouth 2 (two) times a day Current Facility-Administered Medications: sodium chloride 0.9% infusion, 15 mL/hr, intravenous, Continuous Social History Tobacco Use Smoking Status Never Smokeless Tobacco Never Alcohol Use: Not At Risk (07/10/2023) AUDIT-C Frequency of Alcohol Consumption: 2-4 times a month Average Number of Drinks: 1 or 2 Frequency of Binge Drinking: Less than monthly Substance and Sexual Activity Drug Use No Family History Problem Relation Age of Onset Hypertension Mother Hypertension; Hypertension Father Hypertension; Coronary artery disease Other Family history of Coronary artery disease; Vitals: 10/23/23 0958 BP: 143/93 Pulse: 74 Resp: 18 Temp: 36.4 ??C (97.6 ??F) SpO2: 96% PT: No results found for requested labs within last 30 days. INR: No results found for requested labs within last 30 days. APTT: No results found for requested labs within last 30 days. Hgb A1C: No results found for requested labs within last 30 days. CBC RBC: No results found for requested labs within last 30 days. RDW: No results found for requested labs within last 30 days. MCHC: No results found for requested labs within last 30 days. MCH: No results found for requested labs within last 30 days. MCV: No results found for requested labs within last 30 days. Hct: No results found for requested labs within last 30 days. Hgb: No results found for requested labs within last 30 days. WBC: No results found for requested labs within last 30 days. MPV: No results found for requested labs within last 30 days. Platelets: No results found for requested labs within last 30 days. RDW CV: No results found for requested labs within last 30 days. RDW Sd: No results found for requested labs within last 30 days. BMP Glucose: No results found for requested labs within last 30 days. Calcium: No results found for requested labs within last 30 days. Sodium: No results found for requested labs within last 30 days. Potassium: No results found for requested labs within last 30 days. CO2: No results found for requested labs within last 30 days. Chloride: No results found for requested labs within last 30 days. BUN: No results found for requested labs within last 30 days. Creatinine: No results found for requested labs within last 30 days. DOS Physical Exam Medical history, medications, and allergies reviewed. Attestation: This PAT evaluation 10/23/2023. Airway Exam: Mallampati: III Cervical ROM: FROM Cardiovascular Exam: Rate: regular Rhythm: regular Pulmonary Exam: LCTA, bilat Dental Exam: Appears intact Current state: Patient's current state is cooperative and interactive. Anesthesia Plan ASA 3 My patient is approved for the Anesthesia Controlled Medication protocol when under care of a WHOLESALE ACCOUNT MANAGER Planned anesthesia: General Team communication plan: oral ET tube Induction: Induction: intravenous. Postoperative Plan: No plan for postoperative opioid use. No postoperative mechanical ventilation intended. Patient's planned disposition post procedure is Floor. Informed Consent: Discussed plan with WHOLESALE ACCOUNT MANAGER. Anesthesia plan and risks discussed with patient. Consent and Attending signature: I and/or my designee have discussed the anesthesia plan, benefits, possible alternatives, parental presence at time of induction (if indicated), and clinically relevant risks that may include dental injury, unintentional awareness, and/or other complications. The patient and/or parent/legal guardian understand, and agree to proceed. All questions answered. STIC LAUNDRY WORKER STIC LAUNDRY WORKER documented in this encounter Plan of Treatment Not on file documented as of this encounter Procedures Procedure Name Priority Date/Time Associated Diagnosis Comments HI AN PROCEDURE PLACEHOLDER Routine 10/23/2023 11:04 AM DOMESTIC LAUNDRY WORKER HI AN ELECTIVE ENDOTRACHEAL AIRWAY Routine 10/23/2023 11:04 AM DOMESTIC LAUNDRY WORKER documented in this encounter Results * HI AN ELECTIVE ENDOTRACHEAL AIRWAY, HI AN PROCEDURE PLACEHOLDER (10/23/2023 11:04 AM DOMESTIC LAUNDRY WORKER) Danica Hicks CRNA - 10/23/2023 11:04 AM DOMESTIC LAUNDRY WORKER Danica Rooney CRNA ? 10/23/2023 11:04 AM Airway Patient location: OR Urgency: elective Indications for airway management: anesthesia Difficult airway: no Staff: Supervising provider: Brayden Denney MD Placed by: WHOLESALE ACCOUNT MANAGER: Danica Rooney CRNA Emergent airway documentation: Risks and benefits discussed: yes Consent obtained: yes Consent given by: patient Airway prep: Preoxygenated: yes Patient position: sniffing Mask difficulty assessment: 1 - vent by mask Sedation level during airway: GA Final airway details: Final airway type: endotracheal airway Tube type: ETT ETT size: 8.0 mm Cuffed: yes Technique used for successful ETT placement: video laryngoscopy Devices/Methods used in placement: stylet Insertion site: oral Blade type: Elen Video blade type: Seymour Blade size: 4 Cormack-Lehane (video): grade I - full view of glottis Cuff volume: 10 mL Cuff inflated with: air ETT to teeth: 23 cm Placement verified by: auscultation and CO2 detection Airway secured with: silk tape Number of attempts: 1 Brayden Denney MD ANESTHESIA ORDERAB LES Final Result documented in this encounter Visit Diagnoses Not on filedocumented in this encounter Administered Medications Inactive Administered Medications - up to 3 most recent administrations Medication Order MAR Action Action Date Dose Rate Site ceFAZolin (ANCEF) injection intravenous, Administer over 3 Minutes, As needed, Starting on Sun10/23/23 at 1103, Anesthesia Intra-op Given 10/23/2023 11:03 AM DOMESTIC LAUNDRY WORKER 2,000 mg dexAMETHasone (DECADRON) 4 mg/mL injection intravenous, Administer over 2 Minutes, As needed, Starting on Sun10/23/23 at 1102, Anesthesia Intra-op Given 10/23/2023 11:02 AM DOMESTIC LAUNDRY WORKER 4 mg fentaNYL (SUBLIMAZE) preservative free injection intravenous, As needed, Starting on Sun10/23/23 at 1053, Anesthesia Intra-op Given 10/23/2023 10:59 AM DOMESTIC LAUNDRY WORKER 25 mcg Given 10/23/2023 10:53 AM DOMESTIC LAUNDRY WORKER 25 mcg heparin 1,000 unit/mL injection intravenous, As needed, Starting on Sun10/23/23 at 1112, Anesthesia Intra-op New Bag 10/23/2023 11:12 AM DOMESTIC LAUNDRY WORKER 13,000 Units lidocaine (cardiac) (XYLOCAINE) preservative free injection intravenous, As needed, Starting on Sun10/23/23 at 1053, Anesthesia Intra-op, Indications: Ventricular ArrhythmiasIndications:Ventricular Arrhythmias Given 10/23/2023 10:53 AM DOMESTIC LAUNDRY WORKER 5 mL ondansetron (ZOFRAN) injection intravenous, Administer over 2 Minutes, As needed, Starting on Sun10/23/23 at 1134, Anesthesia Intra-op Given 10/23/2023 11:34 AM DOMESTIC LAUNDRY WORKER 4 mg phenylephrine (OLIVIA-SYNEPHRINE) 1 mg/10 mL (100 mcg/mL) in sodium chloride 0.9% (premix) intravenous, As needed, Starting on Sun10/23/23 at 1105, Anesthesia Intra-op Given 10/23/2023 11:17 AM DOMESTIC LAUNDRY WORKER 100 mcg Given 10/23/2023 11:07 AM DOMESTIC LAUNDRY WORKER 100 mcg Given 10/23/2023 11:05 AM DOMESTIC LAUNDRY WORKER 100 mcg phenylephrine (OLIVIA-SYNEPHRINE) 10 mg in sodium chloride 0.9% 100 mL solution intravenous, Continuous PRN, Starting on Sun10/23/23 at 1114, Anesthesia Intra-op Rate/Dose Change 10/23/2023 11:29 AM DOMESTIC LAUNDRY WORKER 0.4 mcg/kg/min 25.992 mL/hr New Bag 10/23/2023 11:14 AM DOMESTIC LAUNDRY WORKER 0.3 mcg/kg/min 19.494 m L/hr propofoL (DIPRIVAN) 10 mg/mL IV intravenous, As needed, Starting on Sun10/23/23 at 1054, Anesthesia Intra-op Bolus 10/23/2023 10:55 AM DOMESTIC LAUNDRY WORKER 50 mg New Bag 10/23/2023 10:54 AM DOMESTIC LAUNDRY WORKER 150 mg protamine injection intravenous, As needed, Starting on Sun10/23/23 at 1134, Anesthesia Intra-op, Indications: Heparin ToxicityIndications:Heparin Toxicity Given 10/23/2023 11:34 AM DOMESTIC LAUNDRY WORKER 50 mg rocuronium (ZEMURON) injection intravenous, As needed, Starting on Sun10/23/23 at 1054, Anesthesia Intra-op Given 10/23/2023 10:54 AM DOMESTIC LAUNDRY WORKER 50 mg sodium chloride 0.9% infusion 15 mL/hr, intravenous, Continuous, Starting on Sun10/23/23 at 1015, Pre-Procedure (CV)Indications:Atrial fibrillation, new onset (CMS/HCC) (HCC) Restarted 10/23/2023 11:57 AM DOMESTIC LAUNDRY WORKER New Bag 10/23/2023 10:49 AM DOMESTIC LAUNDRY WORKER 50 mL/hr sugammadex (BRIDION) 100 mg/mL intravenous solution intravenous, As needed, Starting on Sun10/23/23 at 1137, Anesthesia Intra-op Given 10/23/2023 11:37 AM DOMESTIC LAUNDRY WORKER 250 mg documented in this encounter Care Teams Book Or Script Editor Relationship Specialty Start Date End Date Radha Lozada MD [facility] [place] [address] PCP - General Family Medicine 06/25/23 04/29/24 Kali Reddy MD Consulting Physician Cardiology 05/19/19 Keaton Lynn MD [address] [facility] [address] [place] [address] Consulting Physician Cardiothoracic Surgery 06/07/23 documented as of this encounter
--- OUTSIDE RECORDS SUMMARY | 2024-09-29 22:08 | XMS_ITS | Encounter Summary ---
Author Organization [facility] Healthcare Address [address] [place] [address] Care Team Providers Care Americanization Teacher Name Role Phone Kali Reddy MD Unavailable [phone] Keaton Lynn MD Unavailable [phone] Radha Lozada MD Primary Care Provider [phone] Reason for Referral * Cardiology (Routine) - Closed Specialty Diagnoses / Procedures Referred By Bette t Referred To Contact Diagnoses Atrial fibrillation, [...] WO DOPPLER/CF W CONTRAST Nicolas Golden MD [address] [address] Phone: tel: fax: [facility] [address] [place] [address] Referral ID Status Reason Start Date Expiration Date Visits Re quested Visits Authorized [id number] Closed 08/03/2023 09/01/2024 1 1 TH AND SAFETY INSPECTOR Reason for Visit * Cardiology (Routine) - Closed Specialty Diagnoses [...] WO DOPPLER/CF W CONTRAST Nicolas Golden MD [address] [facility] [address] [address] Phone: tel: fax: [place] [id number] [place] [address] Referral ID Status Reason Start Date Expiration Date Visits Re quested Visits Authorized [id number] Closed 08/03/2023 09/01/2024 1 1 Encounter Details Date Type Department Care Team (Latest Contact Info) Description 12/04/2023 8:17 AM HEALTH AND SAFETY INSPECTOR - 12/04/2023 11:59 PM HEALTH AND SAFETY INSPECTOR Hospital Encounter [facility] [address] [place] [address] Tereso Leger MD [address] [place], [place] [id number] Atrial fibrillation, new onset (CMS/HCC) (HCC) Discharge [...] week 07/30/2023 How often do you attend [facility] or mormonism services? More than 4 times per year 07/30/2023 Do you belong to any clubs o r organizations such as voodoo groups, unions, fraternal or athletic groups, or [...] place to sleep or slept in a longterm (including now)? No 07/30/2023 Personal Safety Answer Date Recorded Have you ever been in or are you currently in a harmful physical or emotional relationship or is someone making you feel afraid or unsafe? Denies 12/04/2023 Sex and Gender Information Value Date Recorded Sex Assigned at Not on file Legal Sex Male 12:03 PM HEALTH AND SAFETY INSPECTOR Gender Identity Not on file Sexual Orientation Not on file Occupation Industry Job Start Date Job End Date Retired Not on file Not on file Not on file documented as of this encounter Last Filed Vital Signs Vital Sign Reading Time Taken Comments Blood Pressure 104/78 12/04/2023 10:27 AM HEALTH AND SAFETY INSPECTOR Pulse 62 12/04/2023 10:27 AM HEALTH AND SAFETY INSPECTOR Temperature 36.7 ??C (98 ??F) 12/04/2023 9:00 AM HEALTH AND SAFETY INSPECTOR Respiratory Rate 17 12/04/2023 10:27 AM HEALTH AND SAFETY INSPECTOR Oxygen Saturation 97% 12/04/2023 10:27 AM HEALTH AND SAFETY INSPECTOR Inhaled Oxygen Concentration - - Weight 110 kg (242 lb 9.6 oz) 12/04/2023 9:00 AM HEALTH AND SAFETY INSPECTOR Height 182.9 cm (6') 12/04/2023 9:00 AM HEALTH AND SAFETY INSPECTOR Body Mass Index 32.9 12/04/2023 9:00 AM HEALTH AND SAFETY INSPECTOR documented in this encounter Discharge Instructions * Discharge Instructions* Rox Shah, MAHIN - 12/04/2023 10:20 AM HEALTH AND SAFETY INSPECTOR [facility] [address] [place], [place] [address] [facility] Discharge Instructions---Transesophageal Echocardiography (KELLEY) MEDICATIONS [] Home Medications Returned [] Discharge Medication Reconciliation Reviewed [] Prescriptions sent home with patient and instructions given for usage [x] ANTIBIOTICS What you Should Know Information provided and reviewed. DIET [x] DO NOT eat or drink for the next 2 hours post procedure. After 2 hours, resume normal diet. [x] Start with soft foods, such as oatmeal, yogurt, or applesauce. Once you can eat soft foods easily, you may begin to eat solid foods. ACTIVITY You have been given medications which helped make you comfortable during your procedure. The relaxing effects of these medications may continue for the rest of the day. For your safety: [x] Do not drive or operate hazardous machinery for the next 24 hours [x] Do not make important personal or business decision or sign legal documentation for the next 24hours [x] Limit your activity for the next 24 hours SPECIAL INSTRUCTIONS [x] Lie down if you feel lightheaded [x] If you develop difficulty swallowing, throwing-up blood, severe throat pain, or shortness of breath call Dr. Douglass . Or call the emergency room at [x] Use a regular throat lozenge for minor sore throat. Call the above physician if severe throat pain occurs. [x] No alcohol consumption for the next 24 hours. FOLLOW UP CARE [] Call physician's office for appointment [] Appointment scheduled for: with Additional Instructions: I understand and have received a copy of my discharge instructions Patient/Family Signature: Staff Signature/Title: Date and Time: TH AND SAFETY INSPECTOR documented in this encounter Medications at Time [...] by mouth daily 90 tablet 3 11/20/[address] (PROTONIX) 40 mg EC tabletIndications :Mucositis Prophylaxis Take 1 tablet (40 mg total) by mouth 2 (two) times a day 60 tablet 07/31/2023 clopidogreL (PLAVIX) 75 mg tablet Take 1 tablet (75 mg total) by mouth daily 30 tablet 11 10/23/2023 04/30/2024 metoprolol tartrate (LOPRESSOR) 25 mg immediate release [...] Procedure Name Priority Date/Time Associated Diagnosis Comments TRANSESOPHAGEAL ECHO (KELLEY) W DOPPLER/CF WO CONTRAST Routine 12/04/2023 12:11 PM HEALTH AND SAFETY INSPECTOR Atrial fibrillation, new onset (CMS/HCC) (HCC) documented in this encounter Results * TRANSESOPHAGEAL ECHO (KELLEY) W DOPPLER/CF WO CONTRAST (12/04/2023 12:11 PM HEALTH AND SAFETY INSPECTOR) BSA 2.37 m2 CONS SCIMAGE Anatomical Region Laterality Modality Echocardiography 12/04/2023 9:42 AM HEALTH AND SAFETY INSPECTOR Narrative 12/04/2023 10:23 AM HEALTH AND SAFETY INSPECTOR [place] [place] [address] TRANSESOPHAGEAL ECHOCARDIOGRAM Patient Name: OMAR ADAM L [...] Signed By: Kali Reddy MD 2023-12-04 10:22:45 HEALTH AND SAFETY INSPECTOR CC: ??Nicolas Golden MD Procedure Note Kali Reddy MD - 12/04/2023 [facility] [address] [place] [address] TRANSESOPHAGEAL ECHOCARDIOGRAM Patient Name: OMAR ADAM L [...] Signed By: Kali Reddy MD 2023-12-04 10:22:45 HEALTH AND SAFETY INSPECTOR CC: Nicolas Golden MD Nicolas Golden MD CV ECHO PROCEDURES Final Result documented in this encounter Visit Diagnoses Diagnosis Atrial fibrillation, new onset (CMS/HCC) (HCC) documented in this encounter Orders Discharge Count Last Ordered Date First Orde red Date DISCHARGE PATIENT 1 12/04/2023 documented in this encounter Care Teams Americanization Teacher Relationship Specialty Start Date End Date Radha Lozada MD [facility] [address] PCP - General Family Medicine 06/25/23 04/29/24 Kali Reddy MD Consulting Physician Cardiology 05/19/19 Keaton Lynn MD [address] [facility] [address] [address] Consulting Physician Cardiothoracic Surgery 06/07/23 documented as of this encounter
--- OUTSIDE RECORDS SUMMARY | 2024-09-29 22:08 | XMS_ITS | Encounter Summary ---
Author Organization [facility] Healthcare Address [address] [place] [address] Care Team Providers Care Medical Reimbursement Manager Name Role Phone Kali Reddy MD Unavailable [phone] Keaton Lynn MD Unavailable [phone] Radha Lozada MD Primary Care Provider [phone] Reason for Visit * Reason Onset Date Comments Questions about WM FUs 11/05/2023 Encounter Details Date Type Department Care Team (Late st Contact Info) Description 11/05/2023 Telephone [facility] Medical Group Cardiology [address] [facility] [address] [place] [address] Kali Reddy MD [address] [facility] [address] [place] [address] Questions about WM FUs Social History Tobacco Use Types Packs/Day Years [...] week 07/30/2023 How often do you attend [facility] or congregation services? More than 4 times per year 07/30/2023 Do you belong to any clubs o r organizations such as spiritism groups, unions, fraternal or athletic groups, or [...] place to sleep or slept in a chcf (including now)? No 07/30/2023 Personal Safety Answer Date Recorded Getting School Help Needed Denies 10/04 Sex and Gender Information Value Date Recorded Sex Assigned at Not on file Legal Sex Male 12:03 PM PROBLEM MANAGER Gender Identity Not on file Sexual Orientation Not on file Occupation Industry Job Start Date Job End Date Retired Not on file Not on file Not on file documented as of this encounter Miscellaneous Notes * Telephone Encounter - Blank Macedo RN - 11/06/2023 9:13 AM CST Spoke w/. Reminded of reason for the 45D KELLEY. They will keep scheduled date. Also fine w/setting up the 6M & 1Y FU. Thye are as follows: 6MON 04/30/24 @ 1000 w/CAGE MANAGER BR & 1 YR 10/29/24 @ 1000 w/CAGE MANAGER BR LEM MANAGER * Telephone Encounter - Paco [place] II - 11/05/2023 11:24 AM PROBLEM MANAGER Pt spouse called to inquire if pt still needs to have KELLEY scheduled on 12/04 post WM on 10/23. Advisedcoordinator not available at this time, and we will reach out for clarification when able. Jackie voiced understanding. LEM MANAGER documented in this encounter Plan of Treatment Not on file documented as of this encounter Visit Diagnoses Not on filedocumented in this encounter Care Teams Medical Reimbursement Manager Relationship Specialty Start Date End Date Radha Lozada MD [address] [place] [address] [place] [address] PCP - General Family Medicine 06/25/23 04/29/24 Kali Reddy MD Consulting Physician Cardiology 05/19/19 Keaton Lynn MD [address] [facility] [address] [place] [address] Consulting Physician Cardiothoracic Surgery 06/07/23 documented as of this encounter
--- OUTSIDE RECORDS SUMMARY | 2024-09-29 22:08 | XMS_ITS | Clinical Summary ---
Author Organization [facility] Address [address] [place] [address] Care Team Providers Care Perfect Binder Operator Name Role Phone Kali Reddy MD Unavailable [phone] Keaton Lynn MD Unavailable Gabby Li NP Primary Care Provider [phone] Allergies No known active allergies Medications acetaminophen (TylenoL) 325 mg tablet Take 2 tablets (650 mg total) by mouth every 6 (six) hours as needed for pain Active aspirin 81 mg enteric coated tablet Take 1 tablet (81 mg total) by mouth daily 30 tablet [address] (PROTONIX) 40 mg EC tabletIndicatio ns:Mucositis Prophylaxis Take 1 tablet (40 mg total) by mouth 2 (two) times a day 60 tablet 3 Active atorvastatin (LIPITOR) 40 mg tablet Take 1 tablet (40 mg total) by mouth daily 90 tablet 3 4 Active amoxicillin (AMOXIL) 500 mg tablet/capsule Take 4 caps (2000 mg) 1 hour prior to dental procedures. 4 02/03/20 38 Active losartan (COZAAR) 25 mg tablet Take 1 tablet (25 mg total) by mouth daily 90 tablet 3 4 05/26/20 25 Active albuterol HFA (PROVENTIL HFA,VENTOLIN HFA,PROAIR HFA) 90 mcg/actuation inhaler Inhale 2 puffs every 4 (four) hours as needed Active fluticasone propionate (FLONASE) 50 mcg/actuation nasal spray Administer 2 sprays into each nostril daily Active furosemide (LASIX) 20 mg tablet Take 1 tablet (20 mg total) by mouth daily Active levoFLOXacin (LEVAQUIN) 750 mg tablet Take 1 tablet (750 mg total) by mouth daily Active NIFEdipine (NIFEdipine XL) 30 mg 24 hr tablet Take 1 tablet (30 mg total) by mouth daily Active metoprolol tartrate (LOPRESSOR) 25 mg immediate release tablet Take 1 tablet by mouth twice daily 180 tablet 3 4 Active carvediloL (COREG) 25 mg tablet Take 1 tablet (25 mg total) by mouth 2 (two) times a day with meals 09/26/20 24 Discontin ued(Alter shazia therapy) Active Problems Problem Noted Date Diagnosed Date History of aortic valve repl acement with bioprosthetic valve 05/26/2024 S/P ascending aortic aneurysm repair 05/12/2024 Presence of Watchman left atrial appendage closu re device 05/12/2024 Essential hypertension 05/12/2024 Atrial fibrillation (CMS/HCC) 10/23/2023 Acute blood loss anemia 07/27/2023 Assessment & Plan (08/16/2023 12:24 PM CDT): Denies any recurrence. Will recheck CBC. Melena 07/27/2023 Premature atrial contractions 07/27/2023 Syncope and collapse 07/27/2023 Hypercholesterolemia 07/27/2023 Assessment & Plan (08/16/2023 12:24 PM CDT): Continue atorvastatin. 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 Left middle cerebral artery. Needs follow up CTA as outpt Class 1 obesity due to exces s calories with serious comorbidity and body mass index (BMI) of 31.0 to 31.9 in adult 07/27/2023 Aneurysm of ascending aorta without rupture 06/16 Aortic aneurysm 06/09/2021 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 Atypical chest pain 06/09/2021 Backache 06/09/2021 Disorder of bursae of shoulder region 06/09/2021 Full thickness rotator cuff tear 06/09/2021 Incomplete tear of rotator cuff 06/09/2021 Localized, primary osteoarthritis 06/09/2021 Night sweats 06/09/2021 Obstructive sleep apnea syndrome 06/09/2021 Radiotherapy follow-up 06/09/2021 Acute upper respiratory infection 06/09/2021 Sinusitis 06/09/2021 Tibialis tendinitis 06/09/2021 Basal cell carcinoma of skin 06/10/2019 Ascending aortic aneurysm 10/19/2015 Overview (01/19/2017): Ascending aortic aneurysm Assessment & Plan (08/16/2023 12:24 PM CDT): Status post repair with Dr. Lynn. Was seen in clinic this morning. Planning for chest CTA next year. Encounters Date Type Department Care Team Description 08/18/2024 Telephone Cardiovascular and Thoracic Surgery [address] [address] Sample, Yudelka Boogie from Last 3 Months Immunizations Name Administration Dates Next Due Influenza, Quad, Adjuvantate d, Intramuscular 07/06/2020 Influenza, Quadrivalent, Spl it, Intramuscular 07/07/2020,07/15/2017 Influenza, Trivalent, Adjuva nted, Intramuscular 06/04/2019,07/08/2018 Influenza, Trivalent, High D ose, Split, Preservative Free, Intramuscular 08/23/2017,07/15/2016,08/04/2015 Influenza, Trivalent, IM (MDV) 10/11/2013 Influenza, Unspecified 07/15/2023 PPD TEST 05/11/2014 Pneumococcal Conjugate PCV 13 08/04/2015 Pneumococcal Polysaccharide PPV23 08/23/2017, Td, Not Adsorbed 11/02/2008 Tdap 02/15/2021 ZOSTER LIVE 10/11/2013 ZOSTER Recombinant 06/03/2019,03/27/2019 Surgical History Surgery Date Site/Laterality Comments ARTERIAL ANEURYSM REPAIR 07/10/2023 Tissue Composite Aortic Root Replacement, Replace Jose-Arch AORTIC VALVE REPLACEMENT 07/10/2023 25 mm Resilia Tissue valve OTHER SURGICAL HISTORY 10/15/2022 - 10/14/2023 watchman procedure ELROY occluder device Medical History Medical History Date Comments Hx Other Medical ascending aorti c aneurysm; Comments: HALL 10/19/2015 - Sleep apnea Sleep apnea Arthritis Arthritis; Comme nts: HALL 10/19/2015 - Hypertension Hypertension Atrial fibrillation (CMS/HCC) (HCC) Coronary artery disease Anemia Family History Medical History Relation Name Comments Hypertension Father Hypertension; Hypertension Mother Hypertension; Coronary artery disease Other Fami ly history of Coronary artery disease; Relation Name Status Comments Father Mother Other Social History Tobacco Use Types Packs/Day Years [...] often do you attend chur ch or mormonism services? More than 4 times per year 07/30/2023 Do you belong to any clubs o r organizations such as christianity groups, unions, fraternal or athletic groups, or [...] money to buy more. Never true 07/30/20 Within the past 12 months, t he [...] on file Legal Sex Male 12:03 PM ENT CONSULTANT Gender Identity Not on file Sexual Orientation Not on file Occupation Industry Job Start Date Job End Date Retired Not on file Not on file Not on file Obstetrics History Last Filed Vital Signs Vital Sign Reading Time Taken Comments Blood Pressure 138/82 05/26/2024 2:33 PM CDT Pulse 61 05/26/2024 2:33 PM CDT Temperature 36.7 ??C (98 ??F) 12/04/2023 9:00 AM ENT CONSULTANT Respiratory Rate 17 12/04/2023 10:2 7 AM ENT CONSULTANT Oxygen Saturation 97% 04/30/2024 9:43 AM CDT Inhaled Oxygen Concentration - - Weight 110.9 kg (244 lb 6.4 oz) 05/26/2024 2:33 PM CDT Height 182.9 cm (6') 04/30/2024 9:43 AM CDT Body Mass Index 33.15 04/30/2024 9:43 AM CDT Plan of Treatment Health Maintenance Due Date Last Done Comments Depression Screening 1945 Hepatitis C Screening 1945 Hepatitis B Screening 1963 Well Visit 65+ 2010 Influenza Vaccine (#1) 2024 , 07/18/2022, 07/11/2021, Additional history exists Fall Risk Assessment 12/04/2024 12/04/2023 DTaP/Tdap/Td Vaccine (2 - Td or Tdap) 02/15/2031 02/15/2021, 11/02/2008 Pneumococcal vaccine 65+ Completed 017, 08/04/2015, 08/12/2012 Zoster Vaccine Completed 06/03/2019, 03/15, 10/11/2013 Medical Devices Implanted Type Area Centrifugal Casting Machine Tender Device Identifier Shelf Expiration Date Model / Serial / Lot [employer] Adriana Watchman Flx Procedure Device [id number] - [id number] - [id number] Implanted:Qty: 1 on 10/23/2023 by Nicolas Golden MD at [facility] Left Atrial Appendage Occluder Left: Atrial Appendage [employer] Adriana 06/09/2026 [id number] / [id number] / [id number] Molina Vascular Device Clsr Perclose Prostyle Sut-Mediatd Closure-Repair Sys 46960-37 - [id number] - [id number] Implanted:Qty: 1 on 10/23/2023 by Nicolas Golden MD at [facility] Vascular Closure Device Right: Femoral Vein [employer] 07/14/2025 50018-61 / [id number] / [id number] [employer] V[employer] Device Clsr Perclose Prostyle Sut-Mediatd Closure-Repair Sys 22812-23 - [id number] - [id number] Implanted:Qty: 1 on 10/23/2023 by Nicolas Golden MD at [facility] Vascular Closure Device Right: Femoral Vein [employer] 07/14/2025 14670-55 / [id number] / [id number] [employer] Inc Graft Biological Cardiovascular Photofix 6x8cm Acellular Dermis Pfp 6x8 - [id number] Implanted:Qty: 1 on 07/10/2023 by Keaton Lynn MD at [facility] N/A: Heart [employer] Inc 03/04/2025 PFP 6X8 / / [id number] Keene Lifesciences Conduit Cardiovascular Aortic Valved Konect Resilia 25mm Bovine [id number] - [id number] - [id number] Implanted:Qty: 1 on 07/10/2023 by Keaton Lynn MD at [facility] N/A: Aorta [employer] 06/07/2024 [id number] / [id number] / Abyrx Hemasorb Os-Spa Spatula Wax 2gm Bone Sterile Os-201 - [id number] Implanted:Qty: 1 on 07/10/2023 by Keaton Lynn MD at [facility] N/A: Aorta Abyrx 02/11/2026 OS-201 / / [id number] Arthrex Inc Device Closure Fibertape Sternal Cerclage Blunt Needle Ar-7289 - [id number] Implanted:Qty: 1 on 07/10/2023 by Keaton Lynn MD at [facility] N/A: Sternum Ar[employer]rex Inc 05/14/2028 AR-7289 / / [id number] Synthes 3mm 16mm Self Drill Lock Sternal Screw Bone Titanium Nonsterile 04.501.116.01 - [id number] Implanted:Qty: 16 on 07/10/2023 by Keaton Lynn MD at [facility] N/A: Sternum Synthes I 04.501.116.01 / / Synthes 8 Hole Locking Manubrium Sternum H Large Plate Bone Titanium 460.028 - [id number] Implanted:Qty: 2 on 07/10/2023 by Keaton Lynn MD at [facility] N/A: Sternum Synthes I 460.028 / / Explanted Type Area Centrifugal Casting Machine Tender Device Identifier Shelf Expiration Date Model / Serial / Lot Bard Peripheral Vascular Bard .25x.25in [place] Thk1.65mm Square Pledget Cardiovascular Ptfe [id number] - [id number] Explanted:Qty: 1 on 07/10/2023 at [facility] N/A: Heart Bard Peripheral Vascular [id number] 07/12/2026 [id number] / / [id number] Insurance MEDICARE [employer] MEDICARE Member Subscriber Plan / Payer (Ef fective 2010-Present) Name:Omar Adam Member ID:[id number] Relation to Subscriber:Self Name:Omar Adam Subscriber ID:[id number] Payer ID:[id number] Group ID:Not on file Type:MEDICARE TRADITIONAL Address: [place] [id number] MEDICARE Member Subscriber Plan / Payer (Ef fective 2010-) Name:Omar Adam Member ID:[id number] Relation to Subscriber:Self Name:Omar Adam Subscriber ID:[id number] Payer ID:[id number] Group ID:Not on file Type:MEDICARE TRADITIONAL Address: [place] [address] [place] [address] [employer] [place] [address] MEDICARE Advance Directives For more information, please contact: [phone] * Full Code (Latest Code Status on File) Date Activated Date Inactivated Comments 07/27/2023 1:29 PM 07/31/2023 8:00 PM * Full Code Date Activated Date Inactivated Comments 07/10/2023 4:23 PM 07/14/2023 9:31 PM Care Teams Perfect Binder Operator Relationship Specialty Start Date End Date Gabby Li NP [address] [address] PCP - General Family Medicine 04/30/24 Kali Reddy MD Consulting Physician Cardiology 05/19/19 Keaton Lynn MD [address] [place] [address] Consulting Physician Cardiothoracic Surgery 06/07/23
--- OUTSIDE RECORDS SUMMARY | 2024-09-29 22:08 | XMS_ITS | Encounter Summary ---
Author Organization [facility] Healthcare Address [address] [place] [address] Care Team Providers Care Anhydrous Ammonia Production Supervisor Name Role Phone Kali Reddy MD Unavailable Keaton Lynn MD Unavailable Gabby Li NP Primary Care Provider [phone] Encounter Details Date Type Department Care Team (Late st Contact Info) Description 05/27/2024 Telephone [facility] Medical Group Cardiology [address] [facility] [address], [place] [address] Kali Reddy MD [facility] [facility] [address] [place] [address] Social History Tobacco Use Types Packs/Day Years [...] 07/30/2023 How often do you attend [facility] or episcopalian services? More than 4 times per year [...] in a intermediate (including now)? No 07/30/2023 Personal Safety Answer Date Recorded Have you ever been in or are you currently in a harmful physical or emotional relationship or is someone making you feel afraid or unsafe? Denies 12/04/2023 Sex and Gender Information Value Date Recorded Sex Assigned at Not on file Legal Sex Male 12:03 PM BOTTLE GAUGER Gender Identity Not on file Sexual Orientation Not on file Occupation Industry Job Start Date Job End Date Retired Not on file Not on file Not on file documented as of this encounter Miscellaneous Notes * Telephone Encounter - Corrie Velázquez MA - 05/27/2024 9:18 AM CDT Spoke with and scheduled his 1 year f/u with CT for 05/25/25. I gave verbal instructions and mailed with appointment reminder. NPO for 2 hours and he has no allergies to oral or iv contrast. documented in this encounter Plan of Treatment Not on file documented as of this encounter Visit Diagnoses Not on filedocumented in this encounter Care Teams Anhydrous Ammonia Production Supervisor Relationship Specialty Start Date End Date Gabby Li NP [address] [address] PCP - General Family Medicine 04/30/24 Kali Reddy MD Consulting Physician Cardiology 05/19/19 Keaton Lynn MD [address] [facility] [address] [place] [address] Consulting Physician Cardiothoracic Surgery 06/07/23 documented as of this encounter
--- OUTSIDE RECORDS SUMMARY | 2024-09-29 22:08 | XMS_ITS | Encounter Summary ---
Author Organization [facility] Healthcare Address [address] [place] [address] Care Team Providers Care Salmon Troll Fisher Name Role Phone Kali Reddy MD Unavailable [phone] Keaton Lynn MD Unavailable [phone] Radha Lozada MD Primary Care Provider [phone] Reason for Referral * Cardiology (Routine) - Closed Specialty Diagnoses / Procedures Referred By Contac t Referred To Contact Diagnoses Aneurysm of ascending aorta without rupture (HCC) Aortic root aneurysm Procedures Transthoracic Echo (TTE) Complete W Doppler/CF Keaton Lynn MD [address] [facility] [address], [place] [address] Phone: tel: fax: [facility] [address] [place] [address] Referral ID Status Reason Start Date Expiration Date Visits Re quested Visits Authorized [id number] Closed 07/23/2023 08/21/2024 1 1 Reason for Visit * Cardiology (Routine) - Closed Specialty Diagnoses / Procedures Referred By Contac t Referred To Contact Diagnoses Aneurysm of ascending aorta without rupture (HCC) Aortic root aneurysm Procedures Transthoracic Echo (TTE) Complete W Doppler/CF Keaton Lynn MD [address] [place] [address] Phone: tel: fax: [facility] [address] [place] [address] Referral ID Status Reason Start Date Expiration Date Visits Re quested Visits Authorized [id number] Closed 07/23/2023 08/21/2024 1 1 Encounter Details Date Type Department Care Team (Latest Contact Info) Description 08/03/2023 8:58 AM CDT - 08/03/2023 11:59 PM CDT Hospital Encounter [facility] OP Cardiac Testing [address] [facility] [address] [place], [place] [id number] Aneurysm of ascending aorta without rupture (HCC); Aortic root aneurysm (HCC) Discharge Disposition: Discharge to home or [...] often do you attend chur ch or roman catholic services? More than 4 times per year 07/30/2023 Do you belong to any clubs o r organizations such as jainism groups, unions, fraternal or athletic groups, or [...] place to sleep or slept in a fci (including now)? 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 Gender Identity Not on file Sexual [...] by mouth daily 90 tablet 07/25/2023 11/20/2023 clopidogreL (PLAVIX) 75 mg tablet Take 1 tablet (75 mg total) by mouth daily 30 tablet 11 10/23/2023 10/23/2023 metoprolol tartrate (LOPRESSOR) 25 mg immediate release tablet Take 1 tablet (25 mg total) by mouth 2 (two) times a day 30 tablet 3 07/25/2023 10/23/2023 documented as of this encounter Discharge Disposition Disposition Code Departure Means Destination Discharge to home or self care documented in this encounter Plan of Treatment Not on file documented as of this encounter Procedures Procedure Name Priority Date/Time Associated Diagnosis Comments TRANSTHORACIC ECHO (TTE) COMPLETE W DOPPLER/CF W CONTRAST Routine 08/03/2023 10:29 AM CDT Aneurysm of ascending aorta without rupture (HCC) Aortic root aneurysm (HCC) documented in this encounter Results * TRANSTHORACIC ECHO (TTE) COMPLETE W DOPPLER/CF W CONTRAST (08/03/2023 10:29 AM CDT) Anatomical Region Laterality Modality Ultrasound 08/03/2023 9:18 AM CDT Narrative 08/03/2023 12:57 PM CDT [facility] [address] [place] [address] ECHOCARDIOGRAM Patient Name: OMAR ADAM : 1945 Study Date: 08/03/2023 9:18:36 AM Gender: M Tech: DD Ref.Provider: KEATON LYNN Height(Cm): 183 BSA: 2.29 Weight(Kg): 103.4BP: 97/71 Order Provider: KEATON LYNN Procedures: Echocardiographic Report: Transthoracic Echocardiogram with 2D, M-Mode, Spectral and Color Flow Doppler examination and administration of intravenous contrast. Indications: Aortic aneurysm, thoracic. Measurements: 2D/M Mode ?Doppler ? Measurement ?Value ?Normal Range ? Measurement ?Value ?Normal Range ? IVSd 2D ?1.80 ? [ 0.60 - 0.90 ] cm ? AV Peak Stan ?2.5 ?[ 1.0 - 1.7 ] m/s ? LVIDd 2D ? 4.40 ? [ 4.20 - 5.90 ] cm ? AV Peak PG ? 24 ? [ 2 - 9 ] mmHg ? LVIDs 2D ? 3.05 ? [ 2.30 - 3.90 ] cm ? AV Mean PG ? 13 ? [ 2 - 4 ] mmHg ? LVPWd 2D ? 1.82 ? [ 0.60 - 1.00 ] cm ? AV VTI ? 47.2 ? cm ? LA Dimen 2D ?3.60 ? cm ? CATHI V max ?2.5 ?cm2 ? AR Diam 2D ? 3.50 ? cm ? CATHI VTI ?1.7 ?[ 2.0 - 4.0 ] cm2 ? LA Volume Index ?33.15 ?[ 16.00 - 28.00 ] ml/m2 ?LVOT Peak Stan ?1.17 ? [ 0.70 - 1.10 ] m/s ? TAPSE ?2.10 ? [ 1.60 - 3.00 ] cm ? LVOT Diam ?2.2 ?[ 1.7 - 2.1 ] cm ? LVOT Peak PG ? 6 ?[ 2 - 6 ] mmHg ? LVOT VTI ? 21.4 ? [ 20.0 - 30.0 ] cm ? MV Peak PG ? 5 ?[ 1 - 10 ] mmHg ? MV Mean PG ? 2 ?[ <= 5 ] mmHg ? MV E Peak Stan ?0.7 ?[ 0.6 - 1.3 ] m/s ? MV A Peak Stan ?0.5 ?[ 1.0 - 1.2 ] m/s ? MV PHT ? 85.4 ? [ 20.0 - 100.0 ] ms ? MV Decel Time ?293.4 ?[ 104.0 - 258.0 ] ms ? MVA PHT ?2.6 ?[ 2.0 - 4.0 ] ms ? MV E/A Ratio ? 1.4 ? TR Peak Stan ?2.6 ?[ 1.0 - 2.8 ] m/s ? TR Peak PG ? 28 ? mmHg ? RVSP ? 30.9 ? [ 10.0 - 36.0 ] mmHg ? RA Pressure ?3.0 ?mmHg ? PV Peak Stan ?0.9 ?[ 0.4 - 0.8 ] m/s ? PV Peak PG ? 3 ?mmHg ? Lat E` Stan ? 0.10 ? [ 0.10 - 0.15 ] m/s ? Sept E' Stan ?0.08 ? [ 0.08 - 0.15 ] m/s ? E/E` ? 7.00 ? RV S' ?0.10 ? m/s ? - Findings: BP: Blood pressure: 97/71 mmHg. Left Ventricle: Normal global and probably normal regional left ventricular systolic function. Ejection Fraction is estimated at 60 %. Normal left ventricular diastolic function. The left ventricular cavity is low normal in size. Marked concentric left ventricular hypertrophy. Right Ventricle: Normal right ventricular systolic function. Normal right ventricular size. Left Atrium: There is borderline enlargement of the left atrium. Right Atrium: The right atrium is normal in size. Atrial Septum: Normal appearing atrial septum. Cannot exclude PFO by atrial septal color Doppler interrogation. Mitral Valve: Grossly normal appearing mitral valve. Mitral stenosis is absent. There is no mitral regurgitation. Aortic Valve: There is no aortic stenosis. There is no aortic regurgitation. Normal functioning bioprosthetic aortic valve. Tricuspid Valve: Grossly normal appearing tricuspid valve. Trace tricuspid regurgitation. TR envelope inadequate to estimate RVSP. Pulmonic Valve: Pulmonic valve not well visualized. There is no pulmonic stenosis. Mild pulmonic regurgitation. Pericardium: No significant pericardial effusion. Aortic Root and Aorta: Normal caliber aortic root. Normal sized ascending aorta. Normal sized descending aorta. Aortic Arch: The aortic arch is poorly visualized. IVC: Normal appearance of the inferior vena cava. Conclusions: 1. Normal global and probably normal [...] By: Kali Reddy MD 2023-08-03 12:57:45 CDT CC: CC: Procedure Note Kali Reddy MD - 08/03/2023 [facility] [place] [address] ECHOCARDIOGRAM Patient Name: OMAR ADAMPatient ID: [id number] : [id number] Date: 08/03/2023 9:18:36 AM Gender: MAccession #: [id number] Tech: [facility].Provider: KEATON LYNN Height(Cm): 183BSA: 2.29 Weight(Kg): 103.4BP: 97/71 Order Provider: KEATON LYNN Procedures: Echocardiographic Report: Transthoracic Echocardiogram with 2D, M-Mode, Spectral and Color FlowDoppler examination and administration of intravenous contrast. Indications: Aortic aneurysm, thoracic. Measurements: 2D/M Mode Doppler Measurement Value Normal Range MeasurementValue Normal Range IVSd 2D 1.80 [ 0.60 - 0.90 ] cm AV Peak Vel2.5 [ 1.0 - 1.7 ] m/s LVIDd 2D 4.40 [ 4.20 - 5.90 ] cm AV Peak PG 24[ 2 - 9 ] mmHg LVIDs 2D 3.05 [ 2.30 - 3.90 ] cm AV Mean PG 13[ 2 - 4 ] mmHg LVPWd 2D 1.82 [ 0.60 - 1.00 ] cm AV VTI47.2 cm LA Dimen 2D 3.60 cm CATHI V max2.5 cm2 AR Diam 2D 3.50 cm CATHI VTI1.7 [ 2.0 - 4.0 ] cm2 LA Volume Index 33.15 [ 16.00 - 28.00 ] ml/m2 LVOT Peak Vel1.17 [ 0.70 - 1.10 ] m/s TAPSE 2.10 [ 1.60 - 3.00 ] cm LVOT Diam2.2 [ 1.7 - 2.1 ] cm LVOT Peak PG 6[ 2 - 6 ] mmHg LVOT VTI21.4 [ 20.0 - 30.0 ] cm MV Peak PG 5[ 1 - 10 ] mmHg MV Mean PG 2[ <= 5 ] mmHg MV E Peak Vel0.7 [ 0.6 - 1.3 ] m/s MV A Peak Vel0.5 [ 1.0 - 1.2 ] m/s MV PHT85.4 [ 20.0 - 100.0 ] ms MV Decel Kdyy785.4 [ 104.0 - 258.0 ] ms MVA PHT2.6 [ 2.0 - 4.0 ] ms MV E/A Ratio1.4 TR Peak Vel2.6 [ 1.0 - 2.8 ] m/s TR Peak PG 28mmHg RVSP30.9 [ 10.0 - 36.0 ] mmHg RA Pressure3.0 mmHg PV Peak Vel0.9 [ 0.4 - 0.8 ] m/s PV Peak PG 3mmHg Lat E` Vel0.10 [ 0.10 - 0.15 ] m/s Sept E' Vel0.08 [ 0.08 - 0.15 ] m/s E/E`7.00 RV S'0.10 m/s - Findings: BP: Blood pressure: 97/71 mmHg. Left Ventricle: Normal global and probably normal regional left ventricular systolicfunction. Ejection Fraction is estimated at 60 %. Normal left ventricular diastolic function.The left ventricular cavity is low normal in size. Marked concentric leftventricular hypertrophy. Right Ventricle: Normal right ventricular systolic function. Normal right ventricularsize. Left Atrium: There is borderline enlargement of the left atrium. Right Atrium: The right atrium is normal in size. Atrial Septum: Normal appearing atrial septum. Cannot exclude PFO by atrial septal colorDoppler interrogation. Mitral Valve: Grossly normal appearing mitral valve. Mitral stenosis is absent. There isno mitral regurgitation. Aortic Valve: There is no aortic stenosis. There is no aortic regurgitation. Normalfunctioning bioprosthetic aortic valve. Tricuspid Valve: Grossly normal appearing tricuspid valve. Trace tricuspid regurgitation.TR envelope inadequate to estimate RVSP. Pulmonic Valve: Pulmonic valve not well visualized. There is no pulmonic stenosis. Mildpulmonic regurgitation. Pericardium: No significant pericardial effusion. Aortic Root and Aorta: Normal caliber aortic root. Normal sized ascending aorta. Normal sizeddescending aorta. Aortic Arch: The aortic arch is poorly visualized. IVC: Normal appearance of the inferior vena cava. Conclusions: 1. Normal global and probably normal regional left ventricular systolicfunction. Ejection Fraction is estimated at 60 %. Normal left ventricular diastolicfunction. The left ventricular cavity is low normal in size. Marked concentric leftventricular hypertrophy. 2. Normal right ventricular systolic function. Normal right ventricularsize. 3. There is no aortic stenosis. There is no aortic regurgitation. Normalfunctioning bioprosthetic aortic valve. Electronically Signed By: Kali Reddy MD 2023-08-03 12:57:45 CDT CC: CC: us Keaton Lynn MD CV ECHO PROCEDURES Final Result documented in this encounter Visit Diagnoses Diagnosis Aneurysm of ascending aorta without rupture (HCC) Aortic root aneurysm documented in this encounter Administered Medications Inactive Administered Medications - up to 3 most recent administrations Medication Order MAR Action Action Date Dose Rate Site perflutren protein type A microspheres (OPTISON) in 0.9% sodium chloride 1:1 8 mL, intravenous, Once in imaging, contrast, Starting on Sun08/03/23 at 1030, For 1 dose Given 08/03/2023 10:31 AM CDT 8 mL documented in this encounter Orders Medications Ordered That Jorge ht Not Have Been Administered Count Last Ordered Date First Ordered Date perflutren protein type A mi crospheres (OPTISON) in 0.9% sodium chloride 1:1 1 08/03/2023 documented in this encounter Care Teams Salmon Troll Fisher Relationship Specialty Start Date End Date Radha Lozada MD [facility] [place] [address] PCP - General Family Medicine 06/25/23 04/29/24 Kali Reddy MD Consulting Physician Cardiology 05/19/19 Keaton Lynn MD [address] [facility] [address] [place] [address] Consulting Physician Cardiothoracic Surgery 06/07/23 documented as of this encounter
--- OUTSIDE RECORDS SUMMARY | 2024-09-29 22:08 | XMS_ITS | Encounter Summary ---
Author Organization [facility] Healthcare Address [address] [place] [address] Care Team Providers Care Choir Singer Name Role Phone Kali Reddy MD Unavailable [phone] Keaton Lynn MD Unavailable [phone] Radha Lozada MD Primary Care Provider [phone] Encounter Details Date Type Department Care Team (Late st Contact Info) Description 10/12/2023 Orders Only [facility] Medical Group Cardiology [address] [facility] [address] [place] [address] Provider, MD Sandra [address] [place] [address] Social History Tobacco Use Types Packs/Day Years [...] often do you attend chur ch or jain services? 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 Gender Identity Not on file Sexual Orientation Not on file documented as of this encounter Plan of Treatment Not on file documented as of this encounter Procedures Procedure Name Priority Date/Time Associated Diagnosis Comments BASIC METABOLIC PANEL Routine 10/11/2023 8:36 AM ADJUDICATION SPECIALIST documented in this encounter Results * Basic metabolic panel (10/11/2023 8:36 AM ADJUDICATION SPECIALIST) Blood us Historical Provider LAB BLOOD ORDERABLES Harriet l Result documented in this encounter Visit Diagnoses Not on filedocumented in this encounter Care Teams Choir Singer Relationship Specialty Start Date End Date Radha Lozada MD [address] [place] [address] [place] [address] PCP - General Family Medicine 06/25/23 04/29/24 Kali Reddy MD Consulting Physician Cardiology 05/19/19 Keaton Lynn MD [address] [place] [address] Consulting Physician Cardiothoracic Surgery 06/07/23 documented as of this encounter
--- OUTSIDE RECORDS SUMMARY | 2024-09-29 22:08 | XMS_ITS | Encounter Summary ---
Author Organization [facility] Healthcare Address [address] [place] [address] Care Team Providers Care Supervisor [employer] Name Role Phone Kali Reddy MD Unavailable [phone] Keaton Lynn MD Unavailable [phone] Gabby Li NP Primary Care Provider [phone] Encounter Details Date Type Department Care Team (Late st Contact Info) Description 08/18/2024 Telephone Cardiovascular and Thoracic Surgery [address] [facility] [address] [place] [address] Yudelka Rizzo Social History Tobacco Use Types Packs/Day Years [...] often do you attend chur ch or anabaptist services? More than 4 times per year 07/30/2023 Do you belong to any clubs o r organizations such as faith groups, unions, fraternal or athletic groups, or [...] place to sleep or slept in a senior care (including now)? No 07/30/2023 Personal Safety Answer Date Recorded Have you ever been in or are you currently in a harmful physical or emotional relationship or is someone making you feel afraid or unsafe? 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 [address] [place] [address] Consulting Physician Cardiothoracic Surgery 06/07/23 documented as of this encounter
--- OUTSIDE RECORDS SUMMARY | 2024-09-29 22:08 | XMS_ITS ---
Author Organization [facility] Address [address] [place] [address] Care Team Providers Care Review Trainer Name Role Phone Kali Reddy MD Unavailable [phone] Keaton Lynn MD Unavailable [phone] Gabby Li NP Primary Care Provider [phone] Active Problems Problem Noted Date Diagnosed Date [...] morning. Planning for chest CTA next year. Current Oncology Plans No current plan information found. Past Plans No past plan information found. Radiation Treatments * No radiation treatments are documented for this patient in [facility]. Treatments may have been administered in another system. Lifetime Dose Tracking * Chemical Lifetime Dose Automatic Entry Manual Entr y Air kerma at the reference point (Ka,r) 747 mGy 0 mGy 747 mGy
--- OUTSIDE RECORDS SUMMARY | 2024-09-29 22:08 | XMS_ITS | Encounter Summary ---
Author Organization [facility] Healthcare Address [address] [place] [address] Care Team Providers Care Technician Inventory Specialist Name Role Phone Kali Reddy MD Unavailable [phone] Keaton Lynn MD Unavailable Gabby Li NP Primary Care Provider Reason for Visit * Reason Comments watchman Encounter Details Date Type Department Care Team (Late st Contact Info) Description 04/30/2024 10:00 AM CDT Office Visit [facility] Medical [facility] Cardiology [address] [facility] [address] [place] [address] Radha Hernandez PA [address] [facility] [address] [place] [address] Presence of Watchman left atrial appendage closure device (Primary Dx); S/P ascending aortic aneurysm repair; Paroxysmal atrial fibrillation (CMS/HCC) (HCC); Hypercholesterolemia; Essential hypertension Social History Tobacco Use Types Packs/Day Years [...] often do you attend chur ch or adventism services? More than 4 times per year 07/30/2023 Do you belong to any clubs o r organizations such as confucianism groups, unions, fraternal or athletic groups, or [...] place to sleep or slept in a fpc (including now)? No 07/30/2023 Personal Safety Answer Date Recorded Have you ever been in or are you currently in a harmful physical or emotional relationship or is someone making you feel afraid or unsafe? 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 Gender Identity Not on file Sexual Orientation Not on file Occupation Industry Job Start Date Job End Date Retired Not on file Not on file Not on file documented as of this encounter Last Filed Vital Signs Vital Sign Reading Time Taken Comments Blood Pressure 118/60 04/30/2024 9:43 AM CDT Pulse 70 04/30/2024 9:43 AM CDT Temperature - - Respiratory Rate - - Oxygen Saturation 97% 04/30/2024 9:43 AM CDT Inhaled Oxygen Concentration - - Weight 111.1 kg (245 lb) 04/30/2024 9:43 AM CDT Height 182.9 cm (6') 04/30/2024 9:43 AM CDT Body Mass Index 33.23 04/30/2024 9:43 AM CDT documented in this encounter Progress Notes * Radha Hernandez PA - 04/30/2024 10:00 AM CDT Images from the original note were not included. [facility] Cardiology [facility] [address] [address] Cardiology Yariel Hills, MD Kali Reddy, MD Wellington Dugan, MD Parish Monae, MD Johnny Maher, MD Kilo Sims, MD Osmin Barbosa, MD Best Ramirez, MD Nicolas Golden, MD Javon Lopez, MD Rory Dowling, MD Erin Monk, PUBLIC AID ELIGIBILITY ASSISTANT Elise Day, PUBLIC AID ELIGIBILITY ASSISTANT Beth Smith, PUBLIC AID ELIGIBILITY ASSISTANT Kali Devries, PA CARLY Velazquez Patient Name: Omar Adam Provider: CARLY Velazquez : 1945 Date of Service: 04/30/2024 Referring: Neville CHIEF COMPLAINT: 6 month Watchman Follow-up. HISTORY OF PRESENT ILLNESS: 78 y.o. male with a history of paroxysmal atrial fibrillation s/p Watchman, presents for 6 month follow-up visit. Also h/o aortic aneurysm s/p root replacement (07/10/2023, Dr. Lynn), hypertension, hypertension, sleep apnea on CPAP, syncopal episode in setting of severe GI bleed. Underwent successful Watchman FLX procedure with 24mm device deployed on 10/[address] Golden. Final KELLEY showed well seated device and a small iatrogenic ASD (inherent to the procedure). No pericardial effusion. 45 day follow-up KELLEY, suboptimal views, appears well-seated device, no clear evidence of thrombus or color doppler flow around the device. Continued on aspirin and Plavix. Patient remains active through usual daily routine. Denies any exertional symptoms. No chest pains or dyspnea. No cardiac complaints at this time. He has continued to take DAPT as directed, along with other home medications. REVIEW OF SYSTEMS: General: No fever, chills, malaise or fatigue Eyes: No alterations in visual acuity ENT: No alterations in auditory acuity, no sore throat Pulmonary: No dyspnea, cough or hemoptysis Cardiac: No chest pain, orthopnea, PND or palpitations GI: No nausea, vomiting, diarrhea or constipation Musculoskeletal: No myalgias or arthralgias Skin: No rashes Neuro: No headaches, paresthesias or focal neurological complaints Endocrine: No cold or heat intolerance Heme: No excessive bleeding or bruising PHYSICAL EXAM: BP 118/60 Pulse 70 Ht 182.9 cm (6') Wt 111.1 kg (245 lb) SpO2 97% BMI 33.23 kg/m?? Body mass index is 33.23 kg/m??. General: Elderly male, well-appearing, pleasant, no apparent distress Eyes: SYBIL/EOMI, Conjuctiva Clear ENT: External ears/nose normal Neck: Supple Respiratory: Clear to ausculation bilaterally; no wheezing/rales/rhonchi; respirations nonlabored Cardiovascular: RRR, normal S1 and S2. No S3 or S4. No murmurs or rubs. Gastrointestinal: Soft, non-tender abdomen Extremities: Trace bilateral lower extremity edema Musculoskeletal: No obvious joint deformities Skin: No obvious rash or bruising Psychiatric: Normal affect Neurologic: Awake/alert, no focal deficits ASSESSMENT & PLAN: Paroxysmal atrial fibrillation s/p Watchman (10/23, Dr. Golden) RRR on exam. Stop Plavix. Will continue aspirin, along with Metoprolol. 1 year follow-up in 10/2024. Ascending aorta aneurysm Aortic aneurysm s/p root replacement (07/10/2023, Dr. Lynn). Continue blood pressure management andsurveillance. Scheduled for CTA Chest on 05/26 and same day visit with Dr. Reddy. Hyperlipidemia LDL of 51 in 05/2023. Controlled. Continue statin. Hypertension Well-controlled on current antihypertensive. NAME: Omar Adam : 1945 LEFT ATRIAL APPENDAGE (ELROY) OCCLUSION FOLLOW-UP - [facility] DOCUMENTATION Please check ([x]) the appropriate box(es) ([]) and fill in the blank(s) as needed. Follow-up visit: 6 months Follow-up should be performed at the following intervals post-procedure: 45 days (+/- 14 days), 6 months (30 days/+60 days), 1 year (+/- 60 days), 2 years (+/- 60 days) Assessment Date: 04/30/24 Procedure Start Date/Time: 10/23/23 Follow-up Status: Alive DIAGNOSTIC STUDIES LVEF Assessed: No Transthoracic Echo (TTE) Performed: No Transesophageal Echo Performed (KELLEY): No Cardiac CT Performed:No Cardiac MRI Performed: No Intracardiac Echo Performed: No Device Margin Residual Leak: Not Assessed PHYSICAL EXAM AND LABS Creatinine: Lab Results Component Value Date CREATININE 0.97 07/31/2023 Hemoglobin: Lab Results Component Value Date HGB 7.6 (L) 07/31/2023 Modified Rabun Scale (mRS): N/A JOHN INDEX EVALUATION: Not assessed. FOLLOW-UP MEDICATIONS MEDICATION Current Medications at Time of Follow-up Yes NO - No Reason NO - No Medical Reason NO - PT Reason Antiplatelet Asprin [x] Dose: [] [] [] Asprin/Dipyridamole [] [] [] [] Vorapaxar [] [] [] [] P2Y12 INHIBITOR Cangrelor [] [] [] [] Clopidogrel [] [] [] [] Prasugrel [] [] [] [] Ticlopidine [] [] [] [] Ticagrelor [] [] [] [] Other P2Y12 Inhibitor [] [] [] [] ANTICOAGULANT DIRECT ORAL ANTICOAGULANT Apixaban [] [] [] [] Dabigatran [] [] [] [] Rivaroxaban [] [] [] [] Edoxaban [] [] [] [] BRIDGING THERAPY Unfractionated Heparin [] [] [] [] Fondaparinux [] [] [] [] Low Molecular Weight Heparin [] [] [] [] Heparin Derivative [] [] [] [] FOLLOW-UP ANTICOAGULATION THERAPY P2Y12 Discontinued: Yes Date: 04/30/24 Follow-up Events Occurred: No CARLY Ramirez This note was dictated with voice-recognition software, gas inspector errors may be present. Cosigned by Nicolas Golden MD at 05/12/2024 8:53 AM CDT documented in this encounter Plan of Treatment Not on file documented as of this encounter Visit Diagnoses Diagnosis Presence of Watchman left atrial appendage closure device- Primary S/P ascending aortic aneurysm repair Paroxysmal atrial fibrillation (CMS/HCC) (HCC) Atrial fibrillation Hypercholesterolemia Pure hypercholesterolemia Essential hypertension Unspecified essential hypertension documented in this encounter Discontinued Medications Medication Sig Discontinue Reason Start Date End Da te clopidogreL (PLAVIX) 75 mg tablet Take 1 tablet (75 mg total) by mouth daily 10/23/2023 04/30/2024 documented as of this encounter Care Teams Technician Inventory Specialist Relationship Specialty Start Date End Date Gabby Li NP [address] [address] PCP - General Family Medicine 04/30/24 Kali Reddy MD Consulting Physician Cardiology 05/19/19 Keaton Lynn MD [address] [facility] [address] [place] [address] Consulting Physician Cardiothoracic Surgery 06/07/23 documented as of this encounter
--- OUTSIDE RECORDS SUMMARY | 2024-09-29 22:08 | XMS_ITS | Referral Summary ---
Author Organization [facility] Address [address] [place] [address] Care Team Providers Care Ship Unloader Name Role Phone Kali Reddy MD Unavailable [phone] Keaton Lynn MD Unavailable Gabby Li NP Primary Care Provider [phone] Encounters Date Type Department Care Team Description 08/18/2024 Telephone Cardiovascular and Thoracic Surgery [address] [facility] [address] [place] [address] Sample, Yudelka Boogie from Last 3 Months Allergies No known active allergies Medications acetaminophen [...] morning. Planning for chest CTA next year. Immunizations Name Administration Dates Next Due Influenza, [...] 02/15/2021 ZOSTER LIVE 10/11/2013 ZOSTER Recombinant 06/03/2019,03/27/2019 Social History Tobacco Use Types Packs/Day Years [...] often do you attend chur ch or protestant services? 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 Gender Identity Not on file Sexual Orientation Not on file Occupation Industry Job Start Date Job End Date Retired Not on file Not on file Not on file Last Filed Vital Signs Vital Sign Reading Time Taken Comments Blood Pressure 138/82 05/26/2024 2:33 PM CDT Pulse 61 05/26/2024 2:33 PM CDT Temperature 36.7 ??C (98 ??F) 12/04/2023 9:00 AM OFFICER CAPTAIN Respiratory Rate 17 12/04/2023 10:2 7 AM OFFICER CAPTAIN Oxygen Saturation 97% 04/30/2024 9:43 AM CDT Inhaled Oxygen Concentration - - Weight 110.9 kg (244 lb 6.4 oz) 05/26/2024 2:33 PM CDT Height 182.9 cm (6') 04/30/2024 9:43 AM CDT Body Mass Index 33.15 04/30/2024 9:43 AM CDT Plan of Treatment Not on file Medical Devices Implanted Type Area Brand Manager Device Identifier Shelf Expiration Date Model / Serial / Lot Ol[employer] Adriana Watchman Flx Procedure Device Wmflxperproc - [id number] - [id number] Implanted:Qty: 1 on 10/23/2023 by Nicolas Golden MD at [facility] Left Atrial Appendage Occluder Left: Atrial Appendage [employer] Adriana 06/09/2026 WMFLXPERPROC / [id number] / [id number] Molina V[employer] Device Clsr Perclose Prostyle Sut-Mediatd Closure-Repair Sys 43281-34 - [id number] - [id number] Implanted:Qty: 1 on 10/23/2023 by Nicolas Golden MD at [facility] Vascular Closure Device Right: Femoral Vein [employer] 07/14/2025 10415-47 / [id number] / [id number] [employer] V[employer] Device Clsr Perclose Prostyle Sut-Mediatd Closure-Repair Sys 88479-72 - [id number] - [id number] Implanted:Qty: 1 on 10/23/2023 by Nicolas Golden MD at [facility] Vascular Closure Device Right: Femoral Vein [employer] 07/14/2025 43640-51 / [id number] / [id number] Cryolife Inc Graft Biological Cardiovascular Photofix 6x8cm Acellular Dermis Pfp 6x8 - [id number] Implanted:Qty: 1 on 07/10/2023 by Keaton Lynn MD at [facility] N/A: Heart Cryolife Inc 03/04/2025 PFP 6X8 / / [id number] Keene Lifesciences Conduit Cardiovascular Aortic Valved Konect Resilia 25mm Bovine [id number] - [id number] - [id number] Implanted:Qty: 1 on 07/10/2023 by Keaton Lynn MD at [facility] N/A: Aorta [employer] 06/07/2024 [id number] / [id number] / Abyrx Hemasorb Os-Spa Spatula Wax 2gm Bone Sterile Os-201 - [id number] Implanted:Qty: 1 on 07/10/2023 by Keaton Lynn MD at [facility] N/A: Aorta Abyrx 02/11/2026 OS-201 / / [id number] Arthrex Inc Device Closure Fibertape Sternal Cerclage Blunt Needle Ar-7289 - [id number] Implanted:Qty: 1 on 07/10/2023 by Keaton Lynn MD at [facility] N/A: Sternum Arthrex Inc 05/14/2028 AR-7289 / / [id number] Synthes 3mm 16mm Self Drill Lock Sternal Screw Bone Titanium Nonsterile 04.501.116.01 - [id number] Implanted:Qty: 16 on 07/10/2023 by Keaton Lynn MD at [facility] N/A: Sternum Synthes I 04.501.116.01 / / Synthes 8 Hole Locking Manubrium Sternum H Large Plate Bone Titanium 460.028 - [id number] Implanted:Qty: 2 on 07/10/2023 by Keaton Lynn MD at [facility] N/A: Sternum Synthes I 460.028 / / Explanted Type Area Brand Manager Device Identifier Shelf Expiration Date Model / Serial / Lot Bard Peripheral Vascular Bard .25x.25in [place] Thk1.65mm Square Pledget Cardiovascular Ptfe [id number] - [id number] Explanted:Qty: 1 on 07/10/2023 at [facility] N/A: Heart Bard Peripheral Vascular [id number] 07/12/2026 [id number] / / [id number] Insurance MEDICARE [facility] Address: [facility] [address] [place] [address] [facility] [place] [address] [facility] MEDICARE MEDICARE [facility] MEDICARE [facility] Address: [address] [address] Advance Directives For more information, please contact: [phone] * Full Code (Latest Code Status on File) Date Activated Date Inactivated Comments 07/27/2023 1:29 PM 07/31/2023 8:00 PM * Full Code Date Activated Date Inactivated Comments 07/10/2023 4:23 PM 07/14/2023 9:31 PM Care Teams Ship Unloader Relationship Specialty Start Date End Date Gabby Li NP [address] [facility] [address] [place] [address] PCP - General Family Medicine 04/30/24 Kali Reddy MD Consulting Physician Cardiology 05/19/19 Keaton Lynn MD [address] [facility] [address] [place] [address] Consulting Physician Cardiothoracic Surgery 06/07/23
--- OUTSIDE RECORDS SUMMARY | 2024-09-29 22:08 | XMS_ITS | Encounter Summary ---
Author Organization [facility] Address [address] [place] [address] Phone Care Team Providers Care Resident Services Manager Name Role Phone Kali Reddy MD Unavailable [phone] Keaton Lynn MD Unavailable Radha Lozada MD Primary Care Provider [phone] Encounter Details Date Type Department Care Team (Latest Contact Info) Description 11/01/2023 9:15 AM AUTO BUMPER MECHANIC Office Visit [facility] Neurosurgery [address] [facility] 6th [place] [address] [place] [address] Josse Brooks MD [address] [place] [address] Vertebrobasilar dolichoectasia (Primary Dx) Social History Tobacco Use Types [...] often do you attend chur ch or mosque services? More than 4 times per year 07/30/2023 Do you belong to any clubs o r organizations such as gnosticism groups, unions, fraternal or athletic groups, or [...] place to sleep or slept in a jail (including now)? 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 Department of Neurological Surgery Josse Brooks M.D. [facility] Department of Neurological Surgery [address] [place] [address] [place], [place] [address] NEW CLINIC VISIT Patient Name: OMAR ADAM Medical Record Number (MRN): [id number] Date of (): 1945 Encounter Date: 11/01/2023 PRIMARY CARE PROVIDER: Radha Lozada MD REFERRING PROVIDER: No ref. provider found CHIEF COMPLAINT MCA dilation HISTORY OF THE PRESENT ILLNESS Omar Adam is a 78 y.o. 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 He had presented to [facility] in July 2023 after an episode of syncope in the setting of Afib and GI bleed few weeks afterascending aortic aneurysm repair Cranial imaging at that time had shown the aneurysm. He was evaluated by my spine surgery colleague Dr. Calles and CARLY Moon on 07/28/23 and referred to me He denies any headaches. He denies any focal weakness or sensory changes. He has not had any seizures. He does not have a family history of aneurysms or intracranial hemorrhage. He is not a smoker. He had an several months ago. Patient Active Problem List Diagnosis Ascending aortic [...] adult Atrial fibrillation, new onset (CMS/HCC) (HCC) Atrial fibrillation (CMS/HCC) (HCC) Past Medical History: Diagnosis Date Anemia Arthritis Arthritis; Comments: [facility] 10/19/2015 - Atrial fibrillation (CMS/HCC) (HCC) Coronary artery disease HX OTHER MEDICAL ascending aortic aneurysm; Comments: [facility] 10/19/2015 - Hypertension Hypertension Sleep apnea Sleep apnea Past Surgical History: Procedure Laterality Date AORTIC VALVE REPLACEMENT 07/10/2023 25 mm Resilia Tissue valve ARTERIAL ANEURYSM REPAIR 07/10/2023 Tissue Composite Aortic Root Replacement, Replace Jose-Arch Current Outpatient Medications on File Prior to Visit Medication Sig Dispense Refill acetaminophen (TylenoL) 325 mg tablet Take 2 tablets (650 mg total) by mouth every 6 (six) hours asneeded for pain aspirin 81 mg enteric coated tablet Take 1 tablet (81 mg total) by mouth daily 30 tablet 11 atorvastatin (LIPITOR) 40 mg tablet Take 1 tablet (40 mg total) by mouth daily 90 tablet 0 clopidogreL (PLAVIX) 75 mg tablet Take 1 tablet (75 mg total) by mouth daily 30 tablet 11 metoprolol tartrate (LOPRESSOR) 25 mg immediate release tablet Take 1 tablet (25 mg total) by mouth2 (two) times a day [address] (PROTONIX) 40 mg EC tablet Take 1 tablet (40 mg total) by mouth 2 (two) times a day60 tablet 0 No current facility-administered medications on file prior to visit. No Known Allergies Social History Tobacco Use Smoking status: Never Smokeless tobacco: Never Substance and Sexual Activity Drug use: No Sexual activity: Not on file Alcohol Use: Not At Risk (07/10/2023) AUDIT-C Frequency of Alcohol Consumption: 2-4 times a month Average Number of Drinks: 1 or 2 Frequency of Binge Drinking: Less than monthly Family History Problem Relation Age of Onset Hypertension Mother Hypertension; Hypertension Father Hypertension; Coronary artery disease Other Family history of Coronary artery disease; REVIEW OF SYSTEMS CONSTITUTIONAL: Negative for appetite change and fatigue. EYES: Negative for double vision, visual disturbance and visual loss. EARS, NOSE, MOUTH, THROAT, AND FACE: Negative for ear drainage, hearing loss, loss of smell or taste, nasal congestion, tinnitus and vertigo. CARDIOVASCULAR: Negative for chest pain, irregular heart beat, palpitations and syncope. GASTROINTESTINAL: Negative for dyspepsia, vomiting, diarrhea, blood in stool. RESPIRATORY: Negative for shortness of breath, wheezing. GENITOURINARY: Negative for change in bladder habits, kidney stones or recent infection. HEMATOLOGIC/LYMPHATIC: Negative for anemia, bleeding and easy bruising. MUSCULOSKELETAL: Negative for back pain, neck pain, neck stiffness, joint pain or swelling. ENDOCRINE: Negative for cold intolerance, excessive or decreased sweating, fertility problems, heatintolerance, polydipsia, polyphagia, temperature intolerance, thyroid disease and weight loss. NEUROLOGICAL: see HPI. PHYSICAL EXAM: VITAL SIGNS There were no vitals filed for this visit. NEUROLOGICAL EXAM: MENTAL STATUS: The patient was alert and oriented to person, place and time. SPEECH: There was normal language pattern, attention span and general fund of knowledge. Repetitionintact, naming three out of three. CRANIAL NERVES: II: Visual jordan were normal. Visual acuity was grossly normal. III, IV and : The pupils were equal and reactive to light and accommodation. Extraocular movements were intact. There was no ptosis or nystagmus. There was normal convergence. There was no evidenceof Ly's syndrome. V: Facial sensation was normal. VII: Facial strength was normal. There was no ptosis. VIII: Hearing was intact bilaterally. IX, X: The palate elevated in the midline. There was no hoarseness, and volume was normal. XI: There was no atrophy/weakness of the sternocleidomastoid or trapezius. Shoulder elevation was symmetric. XII: The tongue protruded in the midline. There was no atrophy or fasciculation. MOTOR: There was no upper or lower extremity weakness, atrophy or fasciculations. There was normal tone. DEEP TENDON REFLEXES: The reflexes were bilaterally symmetric throughout. Babinski and De León's signs were negative. There was no ankle clonus. SENSATION: Light touch sensation was normal. CEREBELLAR: There was no nystagmus, dysmetria or dyskinesia. Voice rigoberto was normal. GAIT AND STATION: Gait and station steady. REVIEW OF IMAGING: I have reviewed the non contrast head CT and CTA head and neck with and without contrast performed on 07/28/23. There is diffuse ectasia of bilateral ICAs, M1 segments and M2 segments. The vertebrobasilar system is also dolichoectatic with a basilar fenestration. ASSESSMENT AND PLAN: Omar Adam is a 78 y.o. male with diffuse dolichoectasia involving bilateral ICAs, proximal MCAand vertebrobasilar system. We discussed that the pathophysiology of this condition is not clearly understood. Some of the areas could progress and develop fusiform aneurysms. Typically problems associated with those could be embolic phenomenon causing ischemic stroke, or mass effect related symptoms, and less likely hemorrhage. We usually do not recommend intervention in the absence of symptoms. Given the incidental nature of these findings. I have recommended imaging surveillance with repeat CTA in 1 year. They will let us know whether they wish to attend the follow up visit in person or via Zoom. 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
--- OUTSIDE RECORDS SUMMARY | 2024-09-29 22:08 | XMS_ITS | Encounter Summary ---
Author Organization [facility] Healthcare Address [address] [place] [address] Care Team Providers Care Library Assistant Name Role Phone Kali Reddy MD Unavailable Keaton Lynn MD Unavailable [phone] Gabby Li NP Primary Care Provider [phone] Reason for Visit * Reason Onset Date Comments Test Results 05/27/2024 Encounter Details Date Type Department Care Team (Late st Contact Info) Description 05/27/[address] [facility] Medical Group Cardiology [address] [facility] [address] [place] [address] Kali Reddy MD [address] [facility] [address] [place] [address] Test Results Social History Tobacco Use Types Packs/Day Years [...] week 07/30/2023 How often do you attend [facility] or restoration services? 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 * Telephone Encounter - Pinky Coelho - 05/27/2024 12:05 PM CDT ----- Message from Kali Reddy MD sent at 05/27/2024 11:53 AM CDT ----- Call the patient to inform that this study looks good. documented in this encounter Plan of Treatment Not on file documented as of this encounter Visit Diagnoses Not on filedocumented in this encounter Care Teams Library Assistant Relationship Specialty Start Date End Date Gabby Li NP [address] [address] PCP - General Family Medicine 04/30/24 Kali Reddy MD Consulting Physician Cardiology 05/19/19 Keaton Lynn MD [address] [facility] [address] [place] [address] Consulting Physician Cardiothoracic Surgery 06/07/23 documented as of this encounter
--- OUTSIDE RECORDS SUMMARY | 2024-09-29 22:08 | XMS_ITS | Encounter Summary ---
Author Organization [facility] Address [address] [place] [address] Care Team Providers Care In Classroom Tutor Name Role Phone Kali Reddy MD Unavailable Keaton Lynn MD Unavailable Radha Lozada MD Primary Care Provider [phone] Encounter Details Date Type Department Care Team (Late st Contact Info) Description 12/04/2023 9:37 AM SERGEANT MISSILE CREWMAN Anesthesia Event [facility] [address] [place] [address] Tereso Leger MD [address] [place] [id number] Anesthesia Record Procedure Summary Procedure Name Responsible Anesthesiologist Anesthesia Start Time Anesthesia Stop Time TRANSESOPHAGEAL ECHO (KELLEY) W DOPPLER/CF Tereso Leger MD 12/04/23 0937 12/04/23 1001 Events Date Time Event Comment 12/04/2023 0830 0937 An Start 0937 An Start Data 0945 An Induction The patient was reevaluated immediately before moderate or deep sedation use and before anesthesia induction. 0945 Anesthesia Ready 1000 an stop data 1001 Handoff to RN I completed my handoff [...] Patient disposition at the time of handoff: PACU 1001 An Stop Meds Name Total lidocaine (CARDIAC) syringe 2 % 5 mL propofol 150 mg NS 0.9% 400 mL * Agents Name O2 * Blood No blood administrations on file. Lines, Drains, and Airways Type Details Placement Removal RETIRED Surgical Site 07/10/23; 1243; Mid-line; Sternum; 09/16/24 (Retired LDA, Removed/Completed by Epic with LDA Utility); 1213 (Retired LDA, Removed/Completed by Epic with LDA Utility) 07/10/23 1243 by Korina Montez RN 09/16/24 1213 by Discharge Provider, Automatic RETIRED Surgical Site 07/11/23; 1900; Ri ght; Groin; 09/16/24 (Retired LDA, Removed/Completed by Epic with LDA Utility); 1213 (Retired LDA, Removed/Completed by Epic with LDA Utility) 07/11/23 1900 by Carlita Meier RN 09/16/24 1213 by Discharge Provider, Automatic Peripheral IV Placement Date: 07/27/23; Placement Time: 1000; Catheter Size: 18 G; Orientation: Anterior, Proximal, Right; Location: Forearm; Removal Date: 05/26/24 07/27/23 1000 by Tam Jimenez, MAHIN 05/26/24 0000 by Javon Candelaria RN Peripheral IV Placement Date: 12/04/23; Placement Time: 0921; Catheter Size: 20 G; Orientation: Anterior, Distal, Left; Location: Forearm; Technique: Anatomical landmarks; Inserted by: Chris; Insertion Attempts: 1; Removal Date: 12/04/23; Removal Time: 1041 12/04/23 0921 by Chris Sykes, MAHIN 12/04/23 1041 by Rox Shah, MAHIN documented in this encounter Social History Tobacco [...] often do you attend chur ch or confucianism services? 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 CREWMAN Gender Identity Not on file Sexual Orientation Not on file Occupation Industry Job Start Date Job End Date Retired Not on file Not on file Not on file documented as of this encounter OR Notes * Anesthesia Postprocedure Evaluation - Ev Enriquez CRNA - 12/04/2023 10:01 AM CST Patient: Omar Adam Procedure Summary Date: 12/04/23 Room / Location: [facility] Anesthesia Start: 936 Anesthesia Stop: 100 Procedure: TRANSESOPHAGEAL ECHO (KELLEY) W DOPPLER/CF Diagnosis: Atrial fibrillation, new onset (CMS/HCC) (HCC) Scheduled Providers: Tereso Leger MD Responsible Provider: Tereso Leger MD Anesthesia Type: general/TIVA ASA Status: 3 Anesthesia Type: general/TIVA Last vitals BP 127/88 Pulse 69 Temp 36.7 ??C (98 ??F) (Oral) Resp 15 SpO2 95% Anesthesia Post Evaluation 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 Patient participation: complete - patient participated Level of consciousness: arouses phonograph mechanic and follows simple commands Pain score: 0 Pain management: adequate Airway patency: adequate Cardiovascular status: acceptable Respiratory status: acceptable Hydration status: acceptable Pt is: normothermic Nausea/Vomiting status: none No notable events documented. EANT MISSILE CREWMAN * Anesthesia Preprocedure Evaluation - Tereso Leger MD - 12/04/2023 8:30 AM CST Images from the original note were not included. Anesthesia Evaluation Omar Adam is a 78 y.o. male TRANSESOPHAGEAL ECHO (KELLEY) W DOPPLER/CF * No Diagnosis Codes entered * HISTORY HPI Here for post-Watchman device KELLEY Past Medical History Information obtained from: patient and chart. 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 [...] Endocrine / Other + Obesity (BMI >30) + Cancer history- skin cancer only. 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 Class 1 obesity due to excess calories with serious comorbidity and body mass index (BMI) of 31.0 to 31.9 in adult 07/27/2023 Aneurysm of ascending aorta without rupture (HCC) 07/10/2023 Aortic aneurysm (HCC) 06/09/2021 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 Atypical chest [...] carcinoma of skin 06/10/2019 Ascending aortic aneurysm (HCC) 10/19/2015 Past Medical History: Diagnosis Date Anemia Arthritis Arthritis; Comments: HALL 10/19/2015 - Atrial fibrillation (CMS/HCC) (HCC) Coronary artery disease HX OTHER MEDICAL ascending aortic aneurysm; Comments: HALL 10/19/2015 - Hypertension Hypertension Sleep apnea Sleep apnea Past Surgical History: Procedure Laterality Date AORTIC VALVE REPLACEMENT 07/10/2023 25 mm Resilia Tissue valve ARTERIAL ANEURYSM REPAIR 07/10/2023 Tissue Composite Aortic Root Replacement, Replace Jose-Arch No Known Allergies Taking? Last Dose Start Date End Date Provider acetaminophen (TylenoL) 325 mg tablet -- -- -- ProviderSandra MD aspirin 81 mg enteric coated tablet -- 07/15/23 07/14/24 Frederic Rushing PA Take 1 tablet (81 mg total) by mouth daily atorvastatin (LIPITOR) 40 mg tablet -- 11/20/23 -- Nicolas Golden MD Take 1 tablet (40 mg total) by mouth daily clopidogreL (PLAVIX) 75 mg tablet -- 10/23/23 10/22/24 Nicolas Golden MD Take 1 tablet (75 mg total) by mouth daily Notes: Ok for 90 you want to switch metoprolol tartrate (LOPRESSOR) 25 mg immediate release tablet -- 10/23/23 -- Nicolas Golden MD Take 1 tablet (25 mg total) by mouth 2 (two) times a day pantoprazole DR (PROTONIX) 40 mg EC tablet () -- 07/31/23 10/22/23 Jonn Willis MD Take 1 tablet (40 mg total) by mouth 2 (two) times a day Current Outpatient Medications: acetaminophen (TylenoL) 325 mg tablet aspirin 81 mg enteric coated tablet atorvastatin (LIPITOR) 40 mg tablet clopidogreL (PLAVIX) 75 mg tablet metoprolol tartrate (LOPRESSOR) 25 mg immediate release tablet pantoprazole DR (PROTONIX) 40 mg EC tablet Social History Tobacco Use Smoking Status Never Smokeless Tobacco Never Alcohol Use: Not At Risk (11/01/2023) AUDIT-C Frequency of Alcohol Consumption: Monthly or less Average Number of Drinks: 1 or 2 Frequency of Binge Drinking: Never Substance and Sexual Activity Drug Use No Family History Problem Relation Age of Onset Hypertension Mother Hypertension; Hypertension Father Hypertension; Coronary artery disease Other Family history of Coronary artery disease; There were no vitals filed for this visit. PT: No results found for requested labs [...] and allergies reviewed. Attestation: This PAT evaluation 12/04/2023. Airway Exam: Mallampati: III Cervical ROM: FROM TM distance: normal Cardiovascular Exam: Rate: regular Rhythm: irregular Pulmonary Exam: LCTA, bilat EENT Exam: trachea midline Dental Exam: Otherwise appears intact Anesthesia Plan ASA 3 My patient is approved for the Anesthesia Controlled Medication protocol when under care of a AGRICULTURE ENGINEER Planned anesthesia: General/TIVA Induction: Induction: intravenous. Postoperative Plan: No plan for postoperative opioid use. No postoperative mechanical ventilation intended. Patient's planned disposition post procedure is Outpatient. Informed Consent: Discussed plan with AGRICULTURE ENGINEER. Anesthesia plan and risks discussed with patient. Plan and Consent Comments: Backup plan is a general anesthetic with or without an endotracheal tube or LMA as required Consent and Attending signature: I and/or my designee have discussed the anesthesia plan, benefits, possible alternatives, parental presence at time of induction (if indicated), and clinically relevant risks that may include dental injury, unintentional awareness, and/or other complications. The patient and/or parent/legal guardian understand, and agree to proceed. All questions answered. EANT MISSILE CREWMAN documented in this encounter Plan of Treatment Not on file documented as of this encounter Visit Diagnoses Not on filedocumented in this encounter Administered Medications Inactive Administered Medications - up to 3 most recent administrations Medication Order MAR Action Action Date Dose Rate Site lidocaine (cardiac) (XYLOCAINE) preservative free injection intravenous, As needed, Starting on Sun12/04/23 at 0945, Anesthesia Intra-op, Indications: Ventricular ArrhythmiasIndications:Ventricular Arrhythmias Given 12/04/2023 9:45 AM SERGEANT MISSILE CREWMAN 5 mL propofoL (DIPRIVAN) 10 mg/mL IV intravenous, As needed, Starting on Sun12/04/23 at 0945, Anesthesia Intra-op Bolus 12/04/2023 9:51 AM SERGEANT MISSILE CREWMAN 50 mg New Bag 12/04/2023 9:45 AM SERGEANT MISSILE CREWMAN 100 mg sodium chloride 0.9% infusion intravenous, Continuous PRN, Starting on Sun12/04/23 at 0940, Anesthesia Intra-op New Bag 12/04/2023 9:40 AM SERGEANT MISSILE CREWMAN documented in this encounter Care Teams In Classroom Tutor Relationship Specialty Start Date End Date Radha Lozada MD [address] [place] [address] [place] [address] PCP - General Family Medicine 06/25/23 04/29/24 Kali Reddy MD Consulting Physician Cardiology 05/19/19 Keaton Lynn MD [address] [facility] [address] [place] [address] Consulting Physician Cardiothoracic Surgery 06/07/23 documented as of this encounter
--- OUTSIDE RECORDS SUMMARY | 2024-09-29 22:09 | XMS_ITS | Encounter Summary ---
Author Organization [facility] Address [address] [place] [address] Phone Care Team Providers Care Bowling Ball Assembler Name Role Phone Kali Reddy MD Unavailable [phone] Keaton Lynn MD Unavailable [phone] Radha Lozada MD Primary Care Provider [phone] Encounter Details Date Type Department Care Team (Late st Contact Info) Description 07/29/2023 Telephone [facility] [address] [facility] [address] [place] [address] Chaim Moon PA [address] [place] [address] Social History Tobacco Use Types [...] week 07/30/2023 How often do you attend [facility] or yarsanism services? More than 4 times per year 07/30/2023 Do you belong to any clubs o r organizations such as mandaeism groups, unions, fraternal or athletic groups, or [...] in a snf (including now)? 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 Brooks outpatient for imaging review and discuss MCA aneurysm management/follow up. Patient initially staffed with Dr. Calles who was professional employer consultant at [employer]. Aneurysm incidentally found during workup. Thank you, Chaim Moon PA-C [facility] Neurosurgery documented in this encounter Plan of Treatment Not on file documented as of this encounter Visit Diagnoses Not on filedocumented in this encounter Care Teams Bowling Ball Assembler Relationship Specialty Start Date End Date Radha Lozada MD [address] [place] [address] [place] [address] PCP - General Family Medicine 06/25/23 04/29/24 Kali Reddy MD Consulting Physician Cardiology 05/19/19 Keaton Lynn MD [address] [facility] [address] [place] [address] Consulting Physician Cardiothoracic Surgery 06/07/23 documented as of this encounter
--- OUTSIDE RECORDS SUMMARY | 2024-09-29 22:09 | XMS_ITS | Encounter Summary ---
Author Organization [facility] Healthcare Address [address] [place] [address] Care Team Providers Care Correctional Supply Supervisor Name Role Phone Kali Reddy MD Unavailable Keaton Lynn MD Unavailable [phone] Radha Lozada MD Primary Care Provider [phone] Reason for Visit * Reason Onset Date Comments Medication questions 07/25/2023 Encounter Details Date Type Department Care Team (Late st Contact Info) Description 07/25/2023 Telephone Cardiovascular and Thoracic Surgery [address] [facility] [address] [place] [address] Hernan Helton, RN [address] [facility] [address] [place] [address] Medication questions Social History Tobacco Use Types Packs/Day Years [...] neighbors? More than three times a week 07/12/2023 How often do you get togethe r with friends or relatives? More than three times a week 07/12/2023 How often do you attend [facility] or jainism services? More than 4 times per year 07/12/2023 Do you belong to any clubs o r organizations such as anabaptism groups, unions, fraternal or athletic groups, or school groups? Yes 07/12/2023 How often do you attend meet ings of the clubs or organizations you belong to? 1 to 4 times per year 07/12/2023 Are you , , di vorced, , never , or living with a partner? 07/12/2023 AUDIT-C Answer Date Recorded Q1: How often [...] food, housing, medical care, and heating? Not very hard 07/12/2023 Hunger Vital Sign Answer Date Recorded Within the past 12 months, y ou worried that your food would run out before you got the money to buy more. Never true 07/12/20 23 Within the past 12 months, t he food you bought just didn't last and you didn't have money to get more. Never true 07/12/2023 PRAPARE - Transportation Answer Date Re corded In the past 12 months, has l ack of transportation kept you from medical appointments or from getting medications? No 06/16 In the past 12 months, has l ack of transportation kept you from meetings, work, or from getting things needed for daily living? No 07/12/2023 Housing Stability Vital Sign Answer Madan e Recorded In the last 12 months, was t here a time when you were not able to pay the mortgage or rent on time? No 07/12/2023 In the last 12 months, how many places have you lived? 1 07/12/2023 In the last 12 months, was t here a time when you did not have a steady place to sleep or slept in a jail (including now)? 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 I told her he will continue the Metoprolol, ASA, and Atorvastatin. She stated his Metoprolol dose is currently a full 25 mg tablet BID. I reviewed the pharmacy on file, and e-scribed a new RX for the current Metoprolol, as well as arefill for Omar's Atorvastatin. We also discussed he can have the vaccines she inquired about at any point as long as he is not feeling ill. She verbalized understanding. * Telephone Encounter - Hernan Helton RN - 07/25/2023 1:25 PM CDT ----- Message from Florence Lambert sent at 07/25/2023 10:27 AM CDT ----- Regarding: Post op questions from a Dr. Lynn patient Contact: His , Jackie, called. He is about to run out of Metoprolol and she wants to know if he should keep taking it. Also, when can he have a flu shot, COVID booster, and RSV shot? documented in this encounter Plan of Treatment Not on file documented as of this encounter Visit Diagnoses Not on filedocumented in this encounter Care Teams Correctional Supply Supervisor Relationship Specialty Start Date End Date Radha Lozada MD [address] [place] [address] [place] [address] PCP - General Family Medicine 06/25/23 04/29/24 Kali Reddy MD Consulting Physician Cardiology 05/19/19 Keaton Lynn MD [address] [facility] [address] [place] [address] Consulting Physician Cardiothoracic Surgery 06/07/23 documented as of this encounter
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
--- OUTSIDE RECORDS SUMMARY | 2024-09-29 22:09 | XMS_ITS | Encounter Summary ---
Author Organization [facility] Healthcare Address [address] [place] [address] Care Team Providers Care Sap Bi Architect Name Role Phone Kali Reddy MD Unavailable Keaton Lynn MD Unavailable [phone] Radha Lozada MD Primary Care Provider [phone] Reason for Visit * Reason Onset Date Comments Cardiac Rehab 07/19/2023 Encounter Details Date Type Department Care Team (Late st Contact Info) Description 07/19/2023 Telephone [facility] Cardiology [address] [place] [address] Kali Reddy MD [address] [facility] [address] [place] [address] Cardiac Rehab Social History Tobacco Use Types Packs/Day Years [...] week 07/12/2023 How often do you attend [facility] or confucianism services? More than 4 times per year 07/12/2023 Do you belong to any clubs o r organizations such as jehovah's witness groups, unions, fraternal or athletic groups, or [...] slept in a long-term (including now)? No 07/12/2023 Sex and Gender Information Value Date Recorded Sex Assigned at Not on file Legal Sex Male 12:03 PM [employer]DEL [employer]KING [employer]PER[employer] Gender Identity Not on file Sexual Orientation Not on file documented as of this encounter Miscellaneous Notes * Telephone Encounter - Flor Jane MA - 07/19/2023 3:31 PM CDT Forms received for cardiac rehab signed and fax back. Uploaded in [employer] documented in this encounter Plan of Treatment Not on file documented as of this encounter Visit Diagnoses Not on filedocumented in this encounter Care Teams Sap Bi Architect Relationship Specialty Start Date End Date Radha Lozada MD [address] [place] [address] [place] [address] PCP - General Family Medicine 06/25/23 04/29/24 Kali Reddy MD Consulting Physician Cardiology 05/19/19 Keaton Lynn MD [address] [facility] [address] [place] [address] Consulting Physician Cardiothoracic Surgery 06/07/23 documented as of this encounter
--- OUTSIDE RECORDS SUMMARY | 2024-09-29 22:09 | XMS_ITS | Encounter Summary ---
Author Organization [facility] Healthcare Address [address] [place] [address] Care Team Providers Care [place] Historian Name Role Phone Kali eRddy MD Unavailable [phone] Keaton Lynn MD Unavailable [phone] Radha Lozada MD Primary Care Provider [phone] Reason for Visit * Reason Comments Dizziness * Auth/Cert (Routine) Specialty Diagnoses / Procedures Referred By Contac t Referred To Contact Diagnoses Anemia Atrial fibrillation with rapid ventricular response (CMS/HCC) (HCC) Macrocytic anemia Procedures N Referral ID Status Reason Start Date Expiration Date Visits Re quested Visits Authorized [id number] 1 1 Encounter Details Date Type Department Care Team (Latest Contact Info) Description 07/28/2023 8:30 AM CDT - 07/28/2023 9:00 AM CDT Surgery [facility] [address] [place] [id number] Pedro Luis Brantley, DO [address] [place] [address] ESOPHAGOGASTRODUODENOSCOPY CONTROL BLEED Surgery Details Date/Time Status Location OR Service Patient Class Case Class Case Type Trauma Case? 07/28/2023 8:30 AM Posted [facility] ENDOSCOPY GI 03 Gastroenterology Inpatient Elective Panel 1 Procedure LRB Anes Op Region Wound Class Comments ESOPHAGOGASTRODUODENOSCOPY CONTROL BLEED N/A General ENDO ADD ON ESOPHAGOGASTRODU ODENOSCOPY BIOPSY N/A Choice Surgeon Surgeon Role Service Panel Pedro Luis Brantley, DO Primary Gastroenterology 1 documented in this encounter Social History Tobacco [...] 07/12/2023 How often do you attend chur or oriental orthodox services? More than 4 times per year [...] slept in a fci (including now)? No 07/12/2023 Sex and Gender Information Value Date Recorded Sex Assigned at Not on file Legal Sex Male 12:03 PM [employer] Gender Identity Not on file Sexual Orientation Not on file documented as of this encounter Last Filed Vital Signs Vital Sign Reading Time Taken Comments Blood Pressure 107/74 07/28/2023 7:39 AM CDT Pulse 117 07/28/2023 7:39 AM CDT Temperature 36.5 ??C (97.7 ??F) 07/28/2023 7:39 AM CD T Respiratory Rate 24 07/28/2023 7:39 AM CDT Oxygen Saturation 100% 07/28/2023 7:39 AM CDT Inhaled Oxygen Concentration - - Weight 103.7 kg (228 lb 9.9 oz) 07/27/2023 3:40 PM CDT Height 182.9 cm (6') 07/27/2023 3:40 PM CDT Body Mass Index 31.01 07/27/2023 3:40 PM CDT documented in this encounter Discharge Summaries * Jonn Willis MD - 07/31/2023 12:05 PM CDT Inpatient Discharge Summary Patient Name - Judi Adam Patient Age - 77 yrs Patient - [id number] [facility] - [id number] Document Creation Date: 07/31/2023 Admitting Provider, MD: Pedro Luis Brantley DO Discharge Provider, : Jonn Willis MD Primary Care Physician at Discharge: Radha Lozada MD [phone] Admission Date: 07/27/2023 Discharge Date/time: 07/31/2023 Admission Location: [facility] LOS - LOS: 4 days DETAILS OF HOSPITAL STAY Hospital Problems/Diagnoses Principal Problem: Acute blood loss anemia Active Problems: Obstructive sleep apnea syndrome Melena Premature atrial contractions Syncope and collapse Hypercholesterolemia Saccular aneurysm Class 1 obesity due to excess calories with serious comorbidity and body mass index (BMI) of 31.0 to 31.9 in adult Reason for Hospitalization: gi bleed Hospital Course: Hospital summary from colleague: 77-year-old man with a past medical history notable for thoracic aortic aneurysm status post aortic root replacement on 07/10/[address] Lynn, hypertension, obstructive sleep apnea, hypercholesterolemia who presents with lightheadedness, fatigue, and after 2 syncopal episodes. 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 Incidental intracranial aneurysm, NSG eval with celestino motta opt. Newonset afib, not on AC, cards following Since involvement, patient has continued to stabilize. Per Cardiology, no plans for anticoagulation, and instead will expedite Watchman procedure evaluation. From GI standpoint, patient has been cleared for discharge as hemoglobin has continued to rise. Patient will also resume home health Discharge Details Physical Exam at Discharge: Discharge Condition: good Pulse: 87 Resp: 18 BP: 90/70 Temp: 36.9 ??C (98.4 ??F) Weight: 103.7 kg (228 lb 9.9 oz) Pertinent Exam Findings at Discharge: nad, resting comfortably in a chair. Midline surgical scar appears well healed. No c/c/e. Alert, oriented x 3. Not agitated or anxious Discharge Disposition: Discharge to home or self care Code Status at Discharge: Full Code Active Issues & Recommended Plan for Follow-up: Maintain close follow up with outpatient providers. Allergies: Patient has no known allergies. Discharge Medications: Your medication list START taking these medications Instructions Last Dose Given Next Dose Due pantoprazole DR 40 mg EC tablet Commonly known as: PROTONIX Take 1 tablet (40 mg total) by mouth 2 (two) times a day CONTINUE taking these medications Instructions Last Dose Given Next Dose Due aspirin 81 mg enteric coated tablet Take 1 tablet (81 mg total) by mouth daily atorvastatin 40 mg tablet Commonly known as: LIPITOR Take 1 tablet (40 mg total) by mouth daily metoprolol tartrate 25 mg immediate release tablet Commonly known as: LOPRESSOR Take 1 tablet (25 mg total) by mouth 2 (two) times a day TylenoL 325 mg tablet Generic drug: acetaminophen Take 2 tablets (650 mg total) by mouth every 6 (six) hours as needed for pain Where to Get Your Medications These medications were sent to [id number] - [place], [place] - [address], [place] [address] 40 mg EC tablet Time Spent in Discharge Process: I have spent 35 minutes on discharge planning activities. Time spent was on Coordination of care and parent/patient education Test Results Pending at Discharge (If Blank, None Found): Operative Procedures Performed (If Blank, None Found): Procedure(s): ESOPHAGOGASTRODUODENOSCOPY CONTROL BLEED ENDO ADD ON ESOPHAGOGASTRODUODENOSCOPY BIOPSY Outpatient Follow-Up: Future Appointments Date Time Provider Department Center 08/16/2023 9:45 AM Keaton Lynn MD [facility] [id number] PSA 05/21/2024 9:15 AM [facility]-[address] [facility] CT [facility] Main 05/21/2024 10:30 AM Kali Reddy MD [facility] CAR [address] Specialty Contact Information for Follow-ups [facility] Home Care Services Specialty: Home Health and Hospice [address] [facility] [address] Next Steps: Follow up Questions: Service Line: Home Health Primary disciplines requested: Residential Physical Therapy Secondary disciplines requested: Occupational Therapy Home Health Services: Disease and Medication Management Therapy to Eval/Tx Therapy instructions: ADL/ ladl management Evaluation/treatment Requested Start of Care Date: 24-48 hours Physician to follow patient's care (the person listed here will be responsible for signing ongoing orders): Referring Provider I attest that I or another qualified licensed provider saw the patient 90 days prior to or 30 days post admission and this face to face encounter meets the necessary Home Health requirements. The face to face encounter occurred on (date): 07/31/2023 The encounter with the patient was in whole, or in part, for the following medical condition, whichis the primary reason for home health care. (List medical condition): Resume home health I certify that, based on my findings, the following services are medically necessary skilled home health services: Therapy to Eval/Tx Clinical findings that support the need for home care: Medical condition requiring skilled assessment/education Wound requiring care, assessment, and instruction I certify that my clinical findings support patient's homebound status. Homebound criteria met because: Poor endurance Requires assistance of another to leave home safely Pain and impaired mobility post-op Referral Status: Some Visits Scheduled Please schedule an appointment with the following provider(s): [facility] Home Care Services [address] [facility] [address] Radha Lozada MD [address] [place] [address] DR HAIR [facility] [address] Call for follow up with primary care provider in one week Kali Reddy MD [address] [place] [address] [facility] [id number] Expedite follow up for watchman evaluation Keaton Lynn MD [address] [place] [address] [facility] [address] keep appointment as scheduled for 08/16 [facility] [address] [facility] [address] ANCILLARY INFORMATION Other Procedures & Diagnostic Tests: CTA Head Neck W WO Contrast Addendum Date: 07/28/2023 Additional vascular reconstructions including 3-D volume rendered reconstructions and dedicated imaging of the dysplastic/reprinting left MCA aneurysm are now available. Again there is no saccular component or aneurysm neck. There is diffuse vascular ectasia otherwise. Electronically signed by: MARCELL BADILLO Result Date: 07/28/2023 CTA head and neck HISTORY: Carotid artery aneurysm COMPARISON: CT head and cervical spine 07/27/2023 FINDINGS: Axial scans of the head were repeated with reconstructions generated. There is no evidence of interval intracranial hemorrhage. There is nothing to suggest evolving infarction. There is nochange in ventricular size or configuration and there is otherwise no extra-axial collection. A contrast enhanced helical axial acquisition was then obtained from the thoracic inlet to the vertex andwith 2-D MIP arterial vascular reconstructions immediately available. 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 There is no evidence of a significant thrombotic component. There is no well-defined neck. There is otherwise no true saccularaneurysm. The cervical vertebral arteries are tortuous and there is somewhat medial course on the right but no atherosclerotic disease or luminal compromise is seen. The vertebral arteries are also slightly prominent with a left dominant. Both vessels are patent the vertebrobasilar junction and basilar is seen to its summit and again with mild distal ectasia but no definitive true aneurysm identified. There is no early pathologic brain enhancement. No other acute abnormality is seen. Generalized arterial vascular ectasia without significant atherosclerotic disease and without occlusive disease. 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 No neck is seen and there are no true saccular aneurysms identified. Electronically signed by: MARCELL BADILLO Transthoracic Echo (TTE) Complete W Doppler/CF Result Date: 07/28/[address] [address] ECHOCARDIOGRAM Patient Name: JUDI ADAM L : 1945 Study Date: 07/27/2023 3:42:15 PM Gender: M Tech: Location: [id number] Ref.Provider: ERIN MONK Height(Cm): 183 BSA: 2.35 Weight(Kg): 108.9 BP: 108/60Order Provider: ERIN MONK - Procedures: Echocardiographic Report: Transthoracic Echocardiogram with 2D, M-Mode, Spectral and Color Flow Doppler examination and administration of intravenous contrast. Indications: Atrial fibrillation. Measurements: 2D/M Mode Doppler Measurement Value Normal Range Measurement Value Normal Range IVSd 2D 1.87 [ 0.60 - 0.90 ] cm AV Peak Stan 1.9 [ 1.0 - 1.7 ] m/s LVIDd 2D 5.30 [ 4.20 - 5.90 ] cm AV Peak PG 15 [ 2 - 9 ] mmHg [id number] 3.58 [ 2.30 - 3.90 ] cm AV Mean PG 9 [ 2 - 4 ] mmHg LVPWd 2D 1.68 [ 0.60 - 1.00 ] cm AV VTI 30.7 cm LA Dimension 2D 3.75 [ 3.00 - 4.00 ] cm CATHI VTI 2.2 [ 2.0 - 4.0 ] cm2 AoR Diam 2D 2.68 [ 2.60 -3.70 ] cm LVOT Peak Stan 1.35 [ 0.70 - 1.10 ] m/s LA Volume Index 32.95 [ 16.00 - 28.00 ] ml/m2 LVOTDiam 2.0 [ 1.7 - 2.1 ] cm TAPSE 1.99 [ 1.60 - 3.00 ] cm LVOT Peak PG 7 [ 2 - 6 ] mmHg LVOT VTI 21.9[ 20.0 - 30.0 ] cm MV Peak PG 9 [ 1 - 10 ] mmHg MV Mean PG 3 [ <= 5 ] mmHg MV E Peak Stan 1.2 [0.6 - 1.3 ] m/s MV A Peak Stan 0.8 [ 1.0 - 1.2 ] m/s MV PHT 23.7 [ 20.0 - 100.0 ] ms MV Decel Time 208.7 [ 104.0 - 258.0 ] ms MVA PHT 9.3 [ 2.0 - 4.0 ] ms MV E/A Ratio 1.5 TR Peak Stan 2.3 [ 1.0 - 2.8 ] m/s TR Peak PG 22 mmHg RVSP 36.6 [ 10.0 - 36.0 ] mmHg RA Pressure 15.0 mmHg PV Peak Stan 1.4 [0.4 - 0.8 ] m/s PV Peak PG 8 mmHg Lat E` Stan 0.20 [ 0.10 - 0.15 ] m/s Sept E' Stan 0.11 [ 0.08 - 0.15 ] m/s E/E` 6.00 RV S' 0.21 m/s - Findings: Study Quality: Technically difficult study. Contrast was employed for LV opacification and endocardial border enhancement. BP: Blood pressure: 108/60 mmHg. Left Ventricle: Normal global and regional left ventricular systolic function. Ejection Fraction is measured at (Simpsons) 63 %. Normal left ventricular cavity size. Moderate to marked concentric left ventricular hypertrophy. Right Ventricle: Normal right ventricular systolic function. Normal right ventricular size. Left Atrium: There is moderate enlargement of the left atrium. Right Atrium: The right atrium is normal in size. Atrial Septum: Normal appearing atrial septum. Mitral Valve: Normal appearance of the mitral valve leaflets. Mild mitral valve regurgitation. Aortic Valve: Grossly normal appearing aortic valve. There is no aortic stenosis. Tricuspid Valve: Normal appearance of the tricuspid leaflets. Mild tricuspid regurgitation. Normal right ventricular systolic pressure. Pulmonic Valve: The pulmonic valve is not seen. Pericardium: Normal appearing pericardial thickness. No significant pericardial effusion. Aortic Root and Aorta: Normal caliber aortic root. Aortic Arch: The a ortic arch is poorly visualized. IVC: Dilated inferior vena cava with poor inspiratory collapse consistent with elevated right atrial pressure. Conclusions: 1. Normal global and regional left ventricular systolic function. Ejection Fraction is measured at (Simpsons) 63 %. Normal left ventricular cavity size. Moderate to marked concentric left ventricular hypertrophy. 2. Normal appearance of the tricuspid leaflets. Mild tricuspid regurgitation. Normal right ventricular systolic pressure. Electronically Signed By: Parish Monae MD, [facility] 2023-07-28 05:05:41 CDT CC: CC: CTA Chest Abdomen Pelvis Result Date: 07/27/2023 EXAMINATION: CTA CHEST ABDOMEN PELVIS HISTORY: Ascending aortic aneurysm status post open repair on07/10/2023 present with chest pain and lightheadedness TECHNIQUE: Transaxial computed tomographic images of the chest, abdomen and pelvis were obtained with intravenous contrast according to the angiographic protocol after the uneventful administration of 120 mL Opti-Ray 350. Images were transferred to an independent workstation for additional 3-D postprocessing. COMPARISON: CTA chest 06/06/2023 FINDINGS: There are postsurgical changes of aortic valve replacement with composite type ascending aorta repair with modified Bentall coronary artery reimplantation. There is expected postoperative soft tissue stranding and fluid in the mediastinum without an organized fluid collection. The sternotomy site has been approximately with sternal plates without evidence of dehiscence. There is no pulmonary embolus. The coronary arteries demonstrate calcified atherosclerotic disease, particularly involving the left coronary system. Non vascular findings: There is a small right pleural effusion. Mildatelectasis lung bases, otherwise lungs are clear. No pneumothorax. Heart size is normal with tracepericardial fluid. There are reactive subcentimeter lymph nodes in the mediastinum with no supraclavicular or axillary lymphadenopathy. Normal liver, gallbladder. No biliary duct dilation. Pancreas, spleen, left adrenal gland are normal. There is a low lipoma right adrenal gland measuring 1 cm. There is a 3 mm nonobstructing renal stone in the lower pole the right kidney and 4 mm nonobstructing renal stones upper pole the left kidney. No hydronephrosis. Urinary bladder is normal. There are calci fications prostate. The colon, appendix, small bowel, and stomach are normal. No mesenteric or retroperitoneal, pelvic, or inguinal lymphadenopathy. No intra- abdominal free air or free fluid. Abdominal aorta contains mild calcified atherosclerotic disease. No suspicious osseous lesion. Postsurgical changes of aortic valve replacement and composite type ascending aorta repair with modified Bentall coronary artery reimplantation. There is no organized fluid collection or dehiscence of the surgical site. No CT explanation for chest pain. Dictated by: Jad Gross MD, PHD The radiology attending physician has personally reviewed this study, and had reviewed and/or editedthis written report and agrees with it. Electronically signed by: Reyes Vincent M.D. CT Head and Cervical Spine WO Contrast Result Date: 07/27/2023 EXAMINATION: Noncontrast head CT CT of the cervical spine without contrast HISTORY: fall. TECHNIQUE: Noncontrast CT of the brain and cervical spine was performed with images acquired from skull base to vertex. COMPARISON: No priors. FINDINGS: HEAD: There is no acute intracranial hemorrhage. Cerebral volume loss without hydrocephalus. No mass effect or midline shift is present. The wilkes- white matter differentiation is normal. Periventricular white matter hypoattenuation may reflect underlying chronic small vessel ischemic changes. Carotid siphon atherosclerotic calcifications are noted. No acute calvarial fracture seen. The visualized portions of the orbits are normal. The visualized portions of the mastoids are normal. Polypoid mucosal thickening in the left maxillary sinus. There is a peripherally calcified ovoid hypoattenuating lesion within the left sylvian fissure which measures approximately 0.8 cm in diameter and is concerning for a left cerebral artery aneurysm. CERVICAL SPINE: Straightening of the normal cervical lordosis. There is no acute fracture. Vertebral bodies are normal in height without compression fractures. Craniocervical arthropathy is noted. No soft tissue abnormality is identified. Advanced degenerative disc/facet/uncovertebral disease is present. Varying le vels of up to moderate spinal canal stenosis are noted. Varying levels of up to severe foraminal stenoses are noted. No acute intracranial process. 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 CT angiography of the head may be considered for further evaluation. No evidence of acute fracture in the cervical spine. Electronically signed by: Evin Fowler MD ECG 12 lead Result Date: 07/27/2023 Vent Rate: 122 bpm RR Interval: 489 msec MD Interval: 0 msec QRS Duration: 110 msec QT Interval: 371 msec QTC Interval: 444 msec P-R-T Cornell: 0 - -37 - 71 degrees IMPRESSION: ATRIAL FIBRILLATION WITH RAPID VENTRICULAR RESPONSE LEFT AXIS DEVIATION NONSPECIFIC ST \T\ T-WAVE ABNORMALITY ABNORMAL ECG Electronically Signed By: Javno Lopez MD [facility] Recent Labs: Recent Labs Lab Units 07/31/2332107/30/2335207/29/23114307/29/23256 WBC K/cumm 4.4 4.9 -- 6.2 HEMOGLOBIN g/dL 7.6* 7.4* 7.9* 7.1* HEMATOCRIT % 24.6* 23.4* 25.1* 22.5* PLATELETS K/cumm 163 166 -- 188 Recent Labs Lab Units 07/31/2332107/30/2335207/29/23114307/29/2325607/27/23 1205 07/27/23 0821 WBC K/cumm 4.4 4.9 -- 6.2 < > 8.7 HEMOGLOBIN g/dL 7.6* 7.4* 7.9* 7.1* < > 5.5* HEMATOCRIT % 24.6* 23.4* 25.1* 22.5* < > 17.6* PLATELETS K/cumm 163 166 -- 188 < > 315 NEUTROS PCT % -- -- -- -- -- 79.0 LYMPHS PCT % -- -- -- -- -- 11.8 MONOS PCT % -- -- -- -- -- 7.8 EOS PCT % -- -- -- -- -- 0.2 < > = values in this interval not displayed. Recent Labs Lab Units 07/31/2332107/30/2335207/29/2325607/28/23 0629 07/27/23 0914 07/27/23 0821 SODIUM mmol/L 138 138 137 138 -- 138 POTASSIUM PLASMA mmol/L 3.6 3.5 3.5 3.9 -- 4.6 CHLORIDE mmol/L 105 104 106 108 -- 105 CO2 mmol/L 26 27 24 20* -- 19* BUN SERUM mg/dL 12 11 16 29* -- 33* CREATININE mg/dL 0.97 0.92 0.84 0.80 -- 0.85 [id number] mL/min/1.73 m2 80 86 90 91 -- 90 GLUCOSE mg/dL 97 93 92 105 -- 136 CALCIUM mg/dL 8.1* 8.0* 7.9* 8.4* -- 8.5 ALBUMIN g/dL 2.8* -- -- -- -- 3.1* PHOSPHORUS PLASMA mg/dL 3.8 -- -- 2.5 2.9 -- Recent Labs Lab Units 07/31/2332107/30/2335207/29/2325607/28/2362807/27/23820 SODIUM mmol/L 138 138 137 < > 138 POTASSIUM PLASMA mmol/L 3.6 3.5 3.5 < > 4.6 CHLORIDE mmol/L 105 104 106 < > 105 CO2 mmol/L 26 27 24 < > 19* ANIONGAP mmol/L 7 7 7 < > 14 GLUCOSE mg/dL 97 93 92 < > 136 BUN SERUM mg/dL 12 11 16 < > 33* CREATININE mg/dL 0.97 0.92 0.84 < > 0.85 CALCIUM mg/dL 8.1* 8.0* 7.9* < > 8.5 ALBUMIN g/dL 2.8* -- -- -- 3.1* ALK PHOS Units/L -- -- -- -- 61 ALT Units/L -- -- -- -- 31 AST Units/L -- -- -- -- 46 BILIRUBIN TOTAL mg/dL -- -- -- -- 0.5 < > = values in this interval not displayed. Recent Labs Lab Units 07/27/23820 ALK PHOS Units/L 61 BILIRUBIN TOTAL mg/dL 0.5 TOTAL PROTEIN g/dL 5.8* ALT Units/L 31 AST Units/L 46 Recent Labs Lab Units 07/31/2332107/28/2362807/27/23913 MAGNESIUM mg/dL 2.3 2.1 2.6* Recent Labs Lab Units 07/27/23 1205 PROTIME (PT) sec 13.9* INR 1.22* APTT sec 26* Lab Results Component Value Date GLUCOSE 97 07/31/2023 GLUCOSE 93 07/30/2023 GLUCOSE 92 07/29/2023 Implant: Implants Type Not Specified [employer] Graft Biological Cardiovascular Photofix 6x8cm Acellular Dermis Pfp 6x8 - [id number] - Implanted Heart Inventory item: [employer] Graft Biological Cardiovascular Photofix 6x8cm Acellular Dermis PFP 6X8 Model/Cat number: [id number] [place]. Commissioner: [employer] Lot number: [id number] As of 07/10/2023 Status: Implanted [employer] Conduit Cardiovascular Aortic Valved Konect Resilia 25mm Bovine [id number] - [id number] - [id number] - Implanted Aorta Inventory item: [employer] Conduit Cardiovascular Aortic Valved Konect Resilia 25mm Bovine [id number] Model/Cat number: [id number] Serial number: [id number] [place]. Commissioner: [employer] Size: 25 mm As of 07/10/2023 Status: Implanted Abyrx Hemasorb Os-Spa Spatula Wax 2gm Bone Sterile Os-201 - [id number] - Implanted Aorta Inventory item: ABYRX Hemasorb OS-SPA Spatula Wax 2gm Bone Sterile OS-201 Model/Cat number: [id number] [place]. Commissioner: [employer]rx Lot number: [id number] As of 07/10/2023 Status: Implanted [employer] Device Closure Fibertape Sternal Cerclage Blunt Needle Ar-7289 - [id number] - Implanted Sternum Inventory item: [employer] Device Closure Fibertape Sternal Cerclage Blunt Needle AR-7289 Model/Cat number: [id number] [place]. Commissioner: [employer] Lot number: [id number] As of 07/10/2023 Status: Implanted Synthes 3mm 16mm Self Drill Lock Sternal Screw Bone Titanium Nonsterile [phone] - [id number] Implanted Sternum Inventory item: SYNTHES 3mm 16mm Self Drill Lock Sternal Screw Bone Titanium Nonsterile [phone] Model/Cat number: .[id number] [place]. Commissioner: [employer]ynthes As of 07/10/2023 Status: Implanted Synthes 8 Hole Locking Manubrium Sternum H Large Plate Bone Titanium 460.028 - [id number] - Implanted Sternum Inventory item: SYNTHES 8 Hole Locking Manubrium Sternum H Large Plate Bone Titanium 460.028 Model/Cat number: [id number] [place]. Commissioner: [employer] As of 07/10/2023 Status: Implanted General Precautions (If Blank, None Found): Isolation Status: No active isolations Nutritional Status and in-house recommendations: Dietary Orders (From admission, onward) Start Ordered 07/29/231847 Adult Diet Special; Low Fat, Low Chol, Low Na Diet effective now Question Answer Comment ([facility]) Diet type Special Fat / Sodium Restriction: Low Fat, Low Chol, Low Na 07/29/231846 Anticoagulation Indication: INR: 07/27/2023: 1.22 (H) Warfarin Administrations (last 168 hours) None Oxygen Status: O2 Therapy for the past 12 hrs: O2 Therapy 07/31/23 0427 Supplemental oxygen 07/31/23 0018 None (Room air) Wound Care Instructions Other Instructions Ambulatory referral to Home Health Service Line: Home Health Primary disciplines requested: Residential Physical Therapy Secondary disciplines requested: Occupational Therapy Home Health Services: Disease and Medication Management Therapy to Eval/Tx Therapy instructions: ADL/ ladl management Evaluation/treatment Requested Start of Care Date: 24-48 hours Physician to follow patient's care (the person listed here will be responsible for signing ongoing orders): Referring Provider I attest that I or another qualified licensed provider saw the patient 90 days prior to or 30 days post admission and this face to face encounter meets the necessary Home Health requirements. The face to face encounter occurred on (date): 07/31/2023 The encounter with the patient was in whole, or in part, for the following medical condition, whichis the primary reason for home health care. (List medical condition): Resume home health I certify that, based on my findings, the following services are medically necessary skilled home health services: Therapy to Eval/Tx Clinical findings that support the need for home care: Medical condition requiring skilled assessment/education Wound requiring care, assessment, and instruction I certify that my clinical findings support patient's homebound status. Homebound criteria met because: Poor endurance Requires assistance of another to leave home safely Pain and impaired mobility post-op Active LDAs (If Blank, None Found): Peripheral IV 07/27/23 18 G Anterior;Proximal;Right Forearm (Active) Placement Date/Time: 07/27/23 1000 Type: Extended dwell catheter 2.25 in Size (Gauge): 18 G Location Orientation: Anterior;Proximal;Right Location: Forearm Patient Emergency Contact: Primary Emergency Contact: Jackie Adam, Sulaiman Immunization Status at Discharge Immunization History Administered Date(s) Administered Influenza, Quad, Adjuvantated, Intramuscular 07/06/2020 Influenza, Quadrivalent, Split, Intramuscular 07/15/2017, 07/07/2020 Influenza, Trivalent, Adjuvanted, Intramuscular 07/08/2018, 06/04/2019 Influenza, Trivalent, High Dose, Split, Preservative Free, Intramuscular 08/04/2015, 07/15/2016, 08/23/2017 Influenza, Trivalent, Intramuscular 10/11/2013 Influenza, Unspecified 07/15/2023 PPD TEST 05/11/2014 Pneumococcal Conjugate PCV 13 08/04/2015 Pneumococcal Polysaccharide PPV23 08/12/2012, 08/23/2017 Td, Not Adsorbed 11/02/2008 Tdap 02/15/2021 ZOSTER LIVE 10/11/2013 ZOSTER Recombinant 03/27/2019, 06/03/2019 Jonn Willis MD documented in this encounter Medications at Time [...] 07/25/2023 10/23/2023 documented as of this encounter Ordered Prescriptions Prescription Sig Dispense Quantity Refills Last Filled Start Date End Date pantoprazole DR (PROTONIX) 40 mg EC tabletIndications:M ucositis Prophylaxis Take 1 tablet (40 mg total) by mouth 2 (two) times a day 60 tablet 07/31/2023 documented in this encounter Discharge Disposition Disposition Code Departure Means Destination Comment s Discharge to home or self care documented in this encounter Progress Notes * Carlita Durant PA - 07/31/2023 10:17 AM CDT Gastroenterology Progress GI Problems: UGIB 2/2 PUD Interval History: Patient seen sitting up in chair: Feeling good. H/H stable. Tolerating diet. Denies pain, N/V. Had a BM this morning after drinking 3 cups of coffee, more form, still looked dark incolor but not tar like. Vitals: 07/31/23 0300 07/31/23 0427 07/31/23 0715 07/31/23 0749 BP: 108/66 90/70 BP Location: Left arm Right arm Patient Position: Lying Sitting Pulse: 94 81 95 99 Resp: 18 18 Temp: 36.4 ??C (97.5 ??F) 36.9 ??C (98.4 ??F) TempSrc: Oral Oral SpO2: 99% 100% Weight: Height: Physical Exam Constitutional: General: He is not in acute distress. Cardiovascular: Rate and Rhythm: Normal rate. Pulmonary: Effort: Pulmonary effort is normal. Abdominal: General: There is no distension. Palpations: Abdomen is soft. Tenderness: There is no abdominal tenderness. There is no guarding. Skin: General: Skin is warm. Neurological: Mental Status: He is alert. Lab/Radiology/Diagnostic Review: Recent Labs Lab Units 07/31/23 0322 07/30/23 0353 07/29/23 1144 07/29/23 0257 WBC K/cumm 4.4 4.9 -- 6.2 HEMOGLOBIN g/dL 7.6* 7.4* 7.9* 7.1* HEMATOCRIT % 24.6* 23.4* 25.1* 22.5* PLATELETS K/cumm 163 166 -- 188 Recent Labs Lab Units 07/31/23 0322 07/27/23 1205 07/27/23 0821 WBC K/cumm 4.4 < > 8.7 HEMOGLOBIN g/dL 7.6* < > 5.5* HEMATOCRIT % 24.6* < > 17.6* PLATELETS K/cumm 163 < > 315 NEUTROS PCT % -- -- 79.0 LYMPHS PCT % -- -- 11.8 MONOS PCT % -- -- 7.8 EOS PCT % -- -- 0.2 < > = values in this interval not displayed. Recent Labs Lab Units 07/31/23 0322 07/30/23 0353 07/29/23 0257 07/28/23 0629 07/27/23 0821 SODIUM mmol/L 138 138 137 < > 138 POTASSIUM PLASMA mmol/L 3.6 3.5 3.5 < > 4.6 BUN SERUM mg/dL 12 11 16 < > 33* CREATININE mg/dL 0.97 0.92 0.84 < > 0.85 CALCIUM mg/dL 8.1* 8.0* 7.9* < > 8.5 ALBUMIN g/dL 2.8* -- -- -- 3.1* ALK PHOS Units/L -- -- -- -- 61 ALT Units/L -- -- -- -- 31 AST Units/L -- -- -- -- 46 BILIRUBIN TOTAL mg/dL -- -- -- -- 0.5 < > = values in this interval not displayed. @ Recent Labs Lab Units 07/27/23 1205 APTT sec 26* INR 1.22* CTA Head Neck W WO Contrast Addendum Date: 07/28/2023 Additional vascular reconstructions including 3-D volume rendered reconstructions and dedicated imaging of the dysplastic/reprinting left MCA aneurysm are now available. Again there is no saccular component or aneurysm neck. There is diffuse vascular ectasia otherwise. Electronically signed by: MARCELL BADILLO Result Date: 07/28/2023 Generalized arterial vascular ectasia without significant atherosclerotic disease and without occlusive disease. 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 No neck is seen and there are no true saccular aneurysms identified. Electronically signed by: MARCELL BADILLO CTA Chest Abdomen Pelvis Result Date: 07/27/2023 Postsurgical changes of aortic valve replacement and composite type ascending aorta repair with modified Bentall coronary artery reimplantation. There is no organized fluid collection or dehiscence of the surgical site. No CT explanation for chest pain. Dictated by: Jad Gross MD, PHD The radiology attending physician has personally reviewed this study, and had reviewed and/or editedthis written report and agrees with it. Electronically signed by: Reyes Vincent M.D. CT Head and Cervical Spine WO Contrast Result Date: 07/27/2023 No acute intracranial process. 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 CT angiography of the head may be considered for further evaluation. No evidence of acute fracture in the cervical spine. Electronically signed by: Evin Fowler MD 07/28/23 EGD Impression: - Normal second portion of the duodenum. - Non-bleeding duodenal ulcer with a flat pigmented spot (Mak Class IIc). Clip was placed. 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 - Normal stomach. Biopsied. - Normal esophagus. - Gastric ulcer(s) were not seen. - A malignant-appearing gastric tumor was not seen. - The examination was otherwise normal. ASSESSMENT/PLAN: 1. UGIB: 2/2 duodenal ulcer. Serial H/H stable. H. Pylori negative Plan: - continue pantoprazole 40mg bid - follow bx path report - ok for 81mg ASA, avoid additional NSAIDs. - diet as tolerated 2. Colon cancer screening: per pt last colonoscopy 10yrs ago. Plan: outpt screening colonoscopy as health permits. Counts stable. NO bleeding reported. Tolerating diet. Stable for d/c from GI standpoint. Continue BID PPI therapy. Avoid NSAIDs. Please call with questions. CARLY Baugh Cosigned by Pedro Luis Brantley DO at 07/31/2023 2:23 PM CDT * Kali Reddy MD - 07/31/2023 9:09 AM CDT Images from the original note were not included. [facility] Cardiology [address], [place] [address] Cardiology Yariel Hills, MD Kali Reddy, MD Wellington Dugan, MD Parish Monae, MD Kilo Sims, MD Johnny Maher, MD Osmin Barbosa, MD Nicolas Golden, MD Best Ramirez, MD Javon Lopez, MD Rory Dowling, MD Beth Smith, CUSTOMER CONTACT SALES ASSOCIATE Erin Monk, CUSTOMER CONTACT SALES ASSOCIATE Elise Kirkpatrick, CUSTOMER CONTACT SALES ASSOCIATE Cardiology Daily Progress Note Patient Name: Judi Adam Provider: Kali Reddy MD : 1945 Date of Service: 07/31/2023 This note was dictated with voice-recognition software, and lumber planer errors may be present. SUBJECTIVE: He has been feeling reasonably well. He endorsed the fairly sudden onset of melena prior to his presentation. He had two episodes of near-syncope/syncope. He is now feeling pretty well. He is only having incisional chest discomfort with certain movements of his torso. No other chest discomfort. MEDICATIONS Current Facility-Administered Medications: acetaminophen (TYLENOL) tablet 650 mg, 650 mg, oral, Q4H PRN, 650 mg at 07/30/23 0826 atorvastatin (LIPITOR) tablet 40 mg, 40 mg, oral, Daily, 40 mg at 07/31/23 0841 Carrier Fluids for Secondary Infusion - 0.9% Sodium Chloride, 30 mL, intravenous, PRN metoprolol tartrate (LOPRESSOR) immediate release tablet 25 mg, 25 mg, oral, BID, 25 mg at 841 ondansetron ODT (ZOFRAN-ODT) disintegrating tablet 4 mg, 4 mg, oral, Q6H PRN OR ondansetron (ZOFRAN) injection 4 mg, 4 mg, intravenous, Q6H PRN pantoprazole (PROTONIX) 40 mg in sodium chloride 0.9% 10 mL IV Syringe, 40 mg, intravenous, BID, 40mg at 07/31/23 0841 sodium chloride 0.9% flush 0.5-20 mL, 0.5-20 mL, intra-catheter, Q8H GINNA, 10 mL at 07/30/23 1956 sodium chloride 0.9% flush 0.5-20 mL, 0.5-20 mL, intra-catheter, PRN PHYSICAL EXAM: Vitals: 07/31/23 0300 07/31/23 0427 07/31/23 0715 07/31/23 0749 BP: 108/66 90/70 BP Location: Left arm Right arm Patient Position: Lying Sitting Pulse: 94 81 95 99 Resp: 18 18 Temp: 36.4 ??C (97.5 ??F) 36.9 ??C (98.4 ??F) TempSrc: Oral Oral SpO2: 99% 100% Weight: Height: Intake/Output Summary (Last 24 hours) at 07/31/2023 0909 Last data filed at 07/31/2023 0841 Gross per 24 hour Intake 210 ml Output -- Net 210 ml General: No apparent distress. Neck: JVP is unclear. Respiratory: Clear to auscultation bilaterally on anterior examination. Cardiac: Regular rate and rhythm with some ectopy. No murmurs, gallops, rubs. Vascular: 2+ pulses. Extremities: No lower extremity edema. Psychiatric: Appropriate affect and interaction. Labs Reviewed: Labs show an unremarkable BMP. He has a stable anemia. Radiology Studies Reviewed: Diagnostics Reviewed: His echocardiogram report is fairly unremarkable. Telemetry Review: Telemetry shows sinus rhythm with no significant events over the past 48 hours. Other Data: IMPRESSION/PLAN GI bleed This was pretty severe with a presenting hemoglobin of 5.5. Status post endoscopic intervention. Continue PPI. This seems to have stabilized. We discussed whether or not he would like to proceed withpercutaneous left atrial appendage occlusion. He opted to proceed with that on an outpatient basis.I have sent a message to our nurse coordinator to get the ball rolling in that regard. Risks of percutaneous left atrial appendage occlusion include myocardial trauma, hemorrhage and stroke amongst others. Atrial fibrillation Proceeding with Watchman device implantation as mentioned above. Can continue metoprolol. Not sure that we need to restart him on anticoagulation in the interim between now and his Watchman implantation although I am somewhat ambivalent in this regard. Syncope He described it as orthostatic. Almost certainly related to his bleeding/anemia. Hyperlipidemia Continue atorvastatin. Case discussed with Dr. Willis. Will sign off now. Please contact me with questions or concerns. Kali Reddy MD * Jonn Willis MD - 07/30/2023 1:56 PM CDT General Medicine Daily Progress Name Judi Adam PCP Radha Lozada MD CC: f/u ugib Subjective Discussed with patient who states that he feels better. 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 Patient denies fevers, chills, cough. Patient states that he is hoping for dc soon, but understands about the blood counts need to be stable. Objective Vitals: 24hr Min/Max: Temp Min: 36.5 ??C (97.7 ??F) Max: 37.1 ??C (98.8 ??F) Pulse Min: 74 Max: 109 BP Min: 93/61 Max: 106/71 Resp Min: 20 Max: 22 SpO2 Min: 97 % Max: 100 % Most Recent : Vitals: 07/30/23 1214 BP: 96/60 Pulse: 92 Resp: 20 Temp: 36.9 ??C (98.5 ??F) SpO2: 99% I/O last 2 completed shifts: In: 1050 [P.O.:1050] Out: - I/O this shift: In: 240 [P.O.:240] Out: - Physical Exam: Gen: Pt in NAD Lungs CTA Heart: RR Abd: +BS, Non Tender, Non distended Lower Ext: No cyanosis or clubbing, or edema Neuro: Alert oriented x 3 Psych: Not agitated or anxious Lab/Radiology/Diagnostic Reviewed: Recent Labs Lab Units 07/30/23 0353 07/29/23 1144 07/29/23 0257 07/28/23 18307/28/23 0629 WBC K/cumm 4.9 -- 6.2 -- 7.8 HEMOGLOBIN g/dL 7.4* 7.9* 7.1* < > 7.4* HEMATOCRIT % 23.4* 25.1* 22.5* < > 22.7* < > = values in this interval not displayed. Recent Labs Lab Units 07/30/23 0353 07/29/23 0257 07/28/23 0629 07/27/23 0914 07/27/23 0821 SODIUM mmol/L 138 < > 138 -- 138 POTASSIUM PLASMA mmol/L 3.5 < > 3.9 -- 4.6 CHLORIDE mmol/L 104 < > 108 -- 105 CO2 mmol/L 27 < > 20* -- 19* GLUCOSE mg/dL 93 < > 105 -- 136 BUN SERUM mg/dL 11 < > 29* -- 33* CREATININE mg/dL 0.92 < > 0.80 -- 0.85 PHOSPHORUS PLASMA mg/dL -- -- 2.5 < > -- MAGNESIUM mg/dL -- -- 2.1 < > -- CALCIUM mg/dL 8.0* < > 8.4* -- 8.5 ALBUMIN g/dL -- -- -- -- 3.1* ALK PHOS Units/L -- -- -- -- 61 ALT Units/L -- -- -- -- 31 AST Units/L -- -- -- -- 46 BILIRUBIN TOTAL mg/dL -- -- -- -- 0.5 < > = values in this interval not displayed. Recent Labs Lab Units 07/27/23 1205 APTT sec 26* INR 1.22* Data reviewed: cbc, renal panel A/P Principal Problem: Acute blood loss anemia Active Problems: Obstructive sleep apnea syndrome Melena Premature atrial contractions Syncope and collapse Hypercholesterolemia Saccular aneurysm Class 1 obesity due to excess calories with serious comorbidity and body mass index (BMI) of 31.0 to 31.9 in adult Acute blood loss anemia -- s/p clip to DU -- ppi bid full strength -- if hgb drops then egd will need to be repeated. New onset rapid afib -- patient insists that this is due to his acute blood loss, as he states the never had similar symptoms prior -- metoprolol 25 bid Syncope -- multifactorial from anemia and arrhythmia Hx AAA -- no impatient managemtw e plan DVT prophylaxis: scd Jonn Willis MD 07/30/2023 * Carlita Durant PA - 07/30/2023 12:30 PM CDT Gastroenterology Progress GI Problems: UGIB 2/2 PUD Interval History: Patient seen: Feeling good. H/H stable. Had a dark BM this am after a few cups ofcoffee, no longer tar like. Tolerating diet. Denies pain, N/V Vitals: 07/30/23 0700 07/30/23 0748 07/30/23 1100 07/30/23 1214 BP: 95/67 96/60 BP Location: Left arm Left arm Patient Position: Sitting Sitting Pulse: 96 99 84 92 Resp: 20 20 Temp: 37.1 ??C (98.7 ??F) 36.9 ??C (98.5 ??F) TempSrc: Oral Oral SpO2: 98% 99% Weight: Height: Physical Exam Constitutional: General: He is not in acute distress. Cardiovascular: Rate and Rhythm: Normal rate. Pulmonary: Effort: Pulmonary effort is normal. Abdominal: General: There is no distension. Palpations: Abdomen is soft. Tenderness: There is no abdominal tenderness. There is no guarding. Skin: General: Skin is warm. Neurological: Mental Status: He is alert. Lab/Radiology/Diagnostic Review: Recent Labs Lab Units 07/30/23 0353 07/29/23 1144 07/29/23 0257 07/28/23 1838 07/28/23 0629 WBC K/cumm 4.9 -- 6.2 -- 7.8 HEMOGLOBIN g/dL 7.4* 7.9* 7.1* < > 7.4* HEMATOCRIT % 23.4* 25.1* 22.5* < > 22.7* PLATELETS K/cumm 166 -- 188 -- 210 < > = values in this interval not displayed. Recent Labs Lab Units 07/30/23 0353 07/27/23 1205 07/27/23 0821 WBC K/cumm 4.9 < > 8.7 HEMOGLOBIN g/dL 7.4* < > 5.5* HEMATOCRIT % 23.4* < > 17.6* PLATELETS K/cumm 166 < > 315 NEUTROS PCT % -- -- 79.0 LYMPHS PCT % -- -- 11.8 MONOS PCT % -- -- 7.8 EOS PCT % -- -- 0.2 < > = values in this interval not displayed. Recent Labs Lab Units 07/30/23 0353 07/29/23 0257 07/28/23 0629 07/27/23 0821 SODIUM mmol/L 138 137 138 138 POTASSIUM PLASMA mmol/L 3.5 3.5 3.9 4.6 BUN SERUM mg/dL 11 16 29* 33* CREATININE mg/dL 0.92 0.84 0.80 0.85 CALCIUM mg/dL 8.0* 7.9* 8.4* 8.5 ALBUMIN g/dL -- -- -- 3.1* ALK PHOS Units/L -- -- -- 61 ALT Units/L -- -- -- 31 AST Units/L -- -- -- 46 BILIRUBIN TOTAL mg/dL -- -- -- 0.5 @ Recent Labs Lab Units 07/27/23 1205 APTT sec 26* INR 1.22* CTA Head Neck W WO Contrast Addendum Date: 07/28/2023 Additional vascular reconstructions including 3-D volume rendered reconstructions and dedicated imaging of the dysplastic/reprinting left MCA aneurysm are now available. Again there is no saccular component or aneurysm neck. There is diffuse vascular ectasia otherwise. Electronically signed by: MARCELL BADILLO Result Date: 07/28/2023 Generalized arterial vascular ectasia without significant atherosclerotic disease and without occlusive disease. 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 No neck is seen and there are no true saccular aneurysms identified. Electronically signed by: MARCELL BADILLO CTA Chest Abdomen Pelvis Result Date: 07/27/2023 Postsurgical changes of aortic valve replacement and composite type ascending aorta repair with modified Bentall coronary artery reimplantation. There is no organized fluid collection or dehiscence of the surgical site. No CT explanation for chest pain. Dictated by: Jad Gross MD, PHD The radiology attending physician has personally reviewed this study, and had reviewed and/or editedthis written report and agrees with it. Electronically signed by: Reyes Vincent M.D. CT Head and Cervical Spine WO Contrast Result Date: 07/27/2023 No acute intracranial process. 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 CT angiography of the head may be considered for further evaluation. No evidence of acute fracture in the cervical spine. Electronically signed by: Evin Fowler MD 07/28/23 EGD Impression: - Normal second portion of the duodenum. - Non-bleeding duodenal ulcer with a flat pigmented spot (Mak Class IIc). Clip was placed. 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 - Normal stomach. Biopsied. - Normal esophagus. - Gastric ulcer(s) were not seen. - A malignant-appearing gastric tumor was not seen. - The examination was otherwise normal. ASSESSMENT/PLAN: 1. UGIB: 2/2 duodenal ulcer. Serial H/H stable. Plan: - continue pantoprazole 40mg bid - follow bx path report - avoid NSAIDs - diet as tolerated 2. Colon cancer screening: per pt last colonoscopy 10yrs ago. Plan: outpt screening colonoscopy as health permits. Blood counts stable. Dark BM today likely residual blood. Continue to monitor. If counts stable in am, stable for d.c from GI standpoint CARLY Baugh Cosigned by Pedro Luis Brantley DO at 07/30/2023 6:38 PM CDT * Kilo Sims MD - 07/30/2023 9:41 AM CDT Cardiology Subsequent Consult Note Subjective Feeling better and maintaining sinus rhythm. Objective: Current Facility-Administered Medications: acetaminophen (TYLENOL) tablet 650 mg, 650 mg, oral, Q4H PRN, Pedro Luis Brantley DO, 650 mg at 07/30/23 0826 atorvastatin (LIPITOR) tablet 40 mg, 40 mg, oral, Daily, Pedro Luis Brantley, , 40 mg at 07/30/23 0826 Carrier Fluids for Secondary Infusion - 0.9% Sodium Chloride, 30 mL, intravenous, PRN, StevenE. Brantley DO metoprolol tartrate (LOPRESSOR) immediate release tablet 25 mg, 25 mg, oral, BID, Pedro Luis Brantley, , 25 mg at 07/30/23 0826 ondansetron ODT (ZOFRAN-ODT) disintegrating tablet 4 mg, 4 mg, oral, Q6H PRN OR ondansetron (ZOFRAN) injection 4 mg, 4 mg, intravenous, Q6H PRN, Pedro Luis Brantley DO pantoprazole (PROTONIX) 40 mg in sodium chloride 0.9% 10 mL IV Syringe, 40 mg, intravenous, BID, Pedro Luis Brantley, , 40 mg at 07/30/23 0824 sodium chloride 0.9% flush 0.5-20 mL, 0.5-20 mL, intra-catheter, Q8H GINNA, Pedro Luis Brantley DO, 10 mL at 07/29/23 2025 sodium chloride 0.9% flush 0.5-20 mL, 0.5-20 mL, intra-catheter, PRN, Pedro Luis Brantley, Physical Exam: Vitals: 07/30/23 0748 BP: 95/67 Pulse: 99 Resp: 20 Temp: 37.1 ??C (98.7 ??F) SpO2: 98% General: Pleasant male in no acute distress. HEENT: normocephalic, atraumatic, no conjunctival injection, no scleral icterus Neck: No JVD, no thyromegaly Lungs: Clear bilaterally. No rales. No rhonchi. No wheezing. Cardiac: Normal rate, regular rhythm, no murmurs, no rubs, no gallops. PMI nondisplaced. Abdomen: Soft, nontender, nondistended. No masses. No bruits. No hepatosplenomegaly. Extremities: Warm and well perfused. No clubbing. No cyanosis. No edema Skin: No rashes noted. No lesions noted. Psych: Appropriate affect. Appropriate mood. Neuro: A&O x 4. Moving all extremities well. Assessment and Plan: Pt of Dr. Reddy Atrial Flutter Reviewed EKG--looks like atypical flutter. Active GI bleed, no anticoagulation for now. Will consider starting anticoagulation vs ?Watchman as outpatient as appropriate. He is back in sinus rhythm now. Continue metoprolol 25 bid. TTE ordered, will review when available. Syncope Likely related to GI bleed, severe anemia. TTE ordered. GI bleed Hgb 5.5 initially, 2u PRBC ordered. Dr. Brantley planning upper endoscopy tomorrow. Ascending aortic aneurysm Status post tissue composite root replacement on 07/10/[address] Lynn. Dyspnea Likely multifactorial, will continue to monitor for improvement Hyperlipidemia On atorvastatin 07/30/2023 EGD showed duodenal ulcer, nonbleeding. Hgb stable in 7's. Continue metoprolol 25 bid. Holding anticoagulation. Per Dr. Brantley OK to resume in 3 days. Watchman referral potentially appropriate, will defer to Dr. Reddy. TTE reviewed, no significant structural heart disease or LV dysfunction. Thank you for involving us in the care of this patient. Please do not hesitate to call me at if you have any further questions. * Parish Harrell, CARLY - 07/29/2023 10:02 AM CDT Gastroenterology Progress GI Problems: UGIB 2/2 PUD Interval History: Patient seen: Feeling good. EGD yesterday showed a non bleedng duodenal ulcer. Reviewed findings with patient. Vitals: 07/29/23 0034 07/29/23 0300 07/29/23 0344 07/29/23 0827 BP: 98/67 109/67 117/77 BP Location: Left arm Left arm Left arm Patient Position: Lying Lying Sitting Pulse: 102 84 90 94 Resp: 22 Temp: 37 ??C (98.6 ??F) 36.6 ??C (97.8 ??F) 37.2 ??C (99 ??F) TempSrc: Oral Oral Oral SpO2: 97% 100% 98% Weight: Height: Physical Exam Constitutional: General: He is not in acute distress. Cardiovascular: Rate and Rhythm: Normal rate. Pulmonary: Effort: Pulmonary effort is normal. Abdominal: General: There is no distension. Palpations: Abdomen is soft. Tenderness: There is no abdominal tenderness. There is no guarding. Skin: General: Skin is warm. Neurological: Mental Status: He is alert. Lab/Radiology/Diagnostic Review: Recent Labs Lab Units 07/29/23 0257 07/28/23 1838 07/28/23 0629 07/27/23 1635 07/27/23 1205 WBC K/cumm 6.2 -- 7.8 -- 8.0 HEMOGLOBIN g/dL 7.1* 7.6* 7.4* < > 5.7* HEMATOCRIT % 22.5* 23.6* 22.7* < > 18.4* PLATELETS K/cumm 188 -- 210 -- 270 < > = values in this interval not displayed. Recent Labs Lab Units 07/29/23 0257 07/27/23 1205 07/27/23 0821 WBC K/cumm 6.2 < > 8.7 HEMOGLOBIN g/dL 7.1* < > 5.5* HEMATOCRIT % 22.5* < > 17.6* PLATELETS K/cumm 188 < > 315 NEUTROS PCT % -- -- 79.0 LYMPHS PCT % -- -- 11.8 MONOS PCT % -- -- 7.8 EOS PCT % -- -- 0.2 < > = values in this interval not displayed. Recent Labs Lab Units 07/29/23 0257 07/28/23 0629 07/27/23 0821 SODIUM mmol/L 137 138 138 POTASSIUM PLASMA mmol/L 3.5 3.9 4.6 BUN SERUM mg/dL 16 29* 33* CREATININE mg/dL 0.84 0.80 0.85 CALCIUM mg/dL 7.9* 8.4* 8.5 ALBUMIN g/dL -- -- 3.1* ALK PHOS Units/L -- -- 61 ALT Units/L -- -- 31 AST Units/L -- -- 46 BILIRUBIN TOTAL mg/dL -- -- 0.5 @ Recent Labs Lab Units 07/27/23 1205 APTT sec 26* INR 1.22* CTA Head Neck W WO Contrast Addendum Date: 07/28/2023 Additional vascular reconstructions including 3-D volume rendered reconstructions and dedicated imaging of the dysplastic/reprinting left MCA aneurysm are now available. Again there is no saccular component or aneurysm neck. There is diffuse vascular ectasia otherwise. Electronically signed by: MARCELL BADILLO Result Date: 07/28/2023 Generalized arterial vascular ectasia without significant atherosclerotic disease and without occlusive disease. 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 No neck is seen and there are no true saccular aneurysms identified. Electronically signed by: MARCELL BADILLO CTA Chest Abdomen Pelvis Result Date: 07/27/2023 Postsurgical changes of aortic valve replacement and composite type ascending aorta repair with modified Bentall coronary artery reimplantation. There is no organized fluid collection or dehiscence of the surgical site. No CT explanation for chest pain. Dictated by: Jad Gross MD, PHD The radiology attending physician has personally reviewed this study, and had reviewed and/or editedthis written report and agrees with it. Electronically signed by: Reyes Vincent M.D. CT Head and Cervical Spine WO Contrast Result Date: 07/27/2023 No acute intracranial process. 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 CT angiography of the head may be considered for further evaluation. No evidence of acute fracture in the cervical spine. Electronically signed by: Evin Fowler MD 07/28/23 EGD Impression: - Normal second portion of the duodenum. - Non-bleeding duodenal ulcer with a flat pigmented spot (Mak Class IIc). Clip was placed. 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 - Normal stomach. Biopsied. - Normal esophagus. - Gastric ulcer(s) were not seen. - A malignant-appearing gastric tumor was not seen. - The examination was otherwise normal. ASSESSMENT/PLAN: 1. UGIB: 2/2 duodenal ulcer. Serial H/H stable. Plan: - continue pantoprazole 40mg bid - follow bx path report - avoid NSAIDs - if unexplained drop in H/H repeat EGD 2. Colon cancer screening: per pt last colonoscopy 10yrs ago. Plan: outpt screening colonoscopy as health permits. CARLY Maurice Cosigned by Pedro Luis Brantley DO at 07/29/2023 11:09 AM CDT * Mandi Simpson MD - 07/29/2023 7:19 AM CDT Daily Progress Subjective Chief complaint of Interval History: \ Awake and alert sitting up in bed this a.m. no apparent acute distress overall states he feels okaydenies any chest pain or shortness a breath no bowel movements as of yet tolerating p.o. diet no nausea vomiting Objective Vitals: 24hr Min/Max: Temp Min: 36.5 ??C (97.7 ??F) Max: 37.1 ??C (98.7 ??F) Pulse Min: 82 Max: 117 BP Min: 98/67 Max: 151/132 Resp Min: 22 Max: 26 SpO2 Min: 96 % Max: 100 % Intake/Output Summary (Last 24 hours) at 07/29/2023 0719 Last data filed at 07/28/2023 1350 Gross per 24 hour Intake 400 ml Output 0 ml Net 400 ml Most Recent : Vitals: 07/29/23 0344 BP: 109/67 Pulse: 90 Resp: 22 Temp: 36.6 ??C (97.8 ??F) SpO2: 100% I/O last 2 completed shifts: In: 400 [P.O.:300; I.V.:100] Out: 0 No intake/output data recorded. Physical Exam: General: No acute distress. Alert and oriented x3 Heart: RRR. No rub or murmur Lungs: CTAB. No wheeze or rhonci. Abdomen: Soft, non-tender, non-distended. No rebounding, guarding, or rigidity. Extremities: No cyanosis or edema. Eyes: Extraocular muscles in tact. No scleral icterus noted. Skin: No rash noted. Lab/Radiology/Diagnostic Review: Laboratory review: Lab results in the last 24 hours: Recent Results (from the past 24 hour(s)) Hemoglobin and hematocrit Collection Time: 07/28/23 6:38 PM Result Value Ref Range Hgb 7.6 (L) 13.0 - 17.5 g/dL Hct 23.6 (L) 38.9 - 50.3 % CBC without differential Collection Time: 07/29/23 2:57 AM Result Value Ref Range WBC 6.2 3.8 - 9.9 K/cumm Hgb 7.1 (L) 13.0 - 17.5 g/dL Hct 22.5 (L) 38.9 - 50.3 % Plt 188 150 - 400 K/cumm MPV 8.8 (L) 9.1 - 12.3 fL RBC 2.34 (L) 4.30 - 5.80 M/cumm MCV 96.2 81.3 - 96.4 fL MCH 30.3 27.1 - 33.3 pg MCHC 31.6 (L) 32.3 - 35.7 g/dL RDW CV 17.6 (H) 11.1 - 14.9 % RDW SD 51.5 (H) 35.7 - 48.1 fL NRBC abs 0.13 (H) 0.00 - 0.01 K/cumm Basic metabolic panel Collection Time: 07/29/23 2:57 AM Result Value Ref Range Sodium 137 135 - 145 mmol/L Potassium, pl 3.5 3.3 - 4.9 mmol/L Chloride 106 97 - 110 mmol/L CO2 24 22 - 32 mmol/L Anion gap 7 2 - 15 mmol/L BUN 16 6 - 25 mg/dL Creatinine 0.84 0.80 - 1.30 mg/dL Glucose 92 70 - 199 mg/dL Calcium 7.9 (L) 8.5 - 10.3 mg/dL eGFR Collection Time: 07/29/23 2:57 AM Result Value Ref Range eGFR 90 mL/min/1.73 m2 Assessment/Plan Principal Problem: Acute blood loss anemia Active Problems: Obstructive sleep apnea syndrome Melena Premature atrial contractions Syncope and collapse Hypercholesterolemia Saccular aneurysm Class 1 obesity due to excess calories with serious comorbidity and body mass index (BMI) of 31.0 to 31.9 in adult 7-year-old man with a past medical history notable for thoracic aortic aneurysm status post aortic root replacement on 07/10/[address] Lynn, hypertension, obstructive sleep apnea, hypercholesterolemia who presents with lightheadedness, fatigue, and after 2 syncopal episodes. FOund to having hmg5.5, likely sympotmatic anemia, transfused , underwent egd noted with duodenal ulcer treated. Incidental intracranial aneurysm, NSG eval with celestino motat opt. Newonset afib, not on AC, cards following Melena, suspected acute upper GI bleeding Severe anemia, suspect anemia of acute blood loss Hemoglobin dropped from 10.4 on 07/14/2023 -5.5 on presentation H&H 7.1 today trending down repeat H&H transfuse less than 7 Hold home aspirin 81 mg daily PPI IV b.i.d. Appreciate GI eval did undergo an EGD nonbleeding duodenal ulcer clips placed. Continue monitor H&H transfuse as indicated aspirin when okay with GI Further AC per cardiology Possible new onset atrial fibrillation with rapid ventricular response Reviewed telemetry. Appears to be sinus tachycardia with frequent PACs Cardiology consulted, Consider possible Watchman as an outpatient Monitor on telemetry , echo ok Continue home metoprolol tartrate 25 mg b.i.d. Defer AC per cardiology Syncope and collapse Likely from severe anemia. Possibly related to atrial fibrillation. PT/OT evals once clinically stable History of ascending aortic aneurysm Status post composite root replacement on 07/10/[address] done on presentation showed no evidence of surgical complications. Cardiothoracic surgery reportedly consulted from the emergency department. Hypercholesterolemia Continue home Lipitor 40 mg daily Class 1 obesity, BMI 31.01 Outpatient weight loss program Possible 0.8 cm saccular aneurysm in the left middle cerebral artery Ct noted , dw NSG, no further Discussed with neurosurgery; Dr. Brooks outpatient for imaging review and discuss MCA aneurysm management/follow up DVT ppx scd POC PT Code status: Full Code Goals for discharge / anticipated LOS: Anticipate admission > 2 midnights for management of severe anemia Medical complexity / risk: High - acute condition posing threat to life * Elise Day NP - 07/29/2023 7:05 AM CDT [facility] Cardiology [address], [place] [address] Cardiology Yariel Hills MD Kali Reddy, MD Wellington Dugan, MD Parish Monae, MD Johnny Maher, MD Osmin Barbosa, MD Best Ramirez, MD Nicolas Golden, MD Javon Lopez, MD Rory Dowling, MD Kilo Day, CUSTOMER [employer] SALES [employer]OC[employer]ATE Clyde Wilman, CUSTOMER CONTACT SALES ASSOCIATE Erin Lacho, CUSTOMER CONTACT SALES ASSOCIATE Beth Smith, CUSTOMER CONTACT SALES ASSOCIATE Cardiology Daily Progress Note Provider: Elise Day NP Patient Name: Judi Adam : 1945 Date of Service: 07/29/2023 CHIEF COMPLAINT: Dizziness SUBJECTIVE: - Patient denies chest pain, but still has some shortness of breath. - Still reports black tarry stools, but EGD showed no active bleeding - Telemetry shows sinus rhythm/tachycardia with heart rates running in the 90-100s. MEDICATIONS atorvastatin, 40 mg, oral, Daily metoprolol tartrate, 25 mg, oral, BID pantoprazole, 40 mg, intravenous, BID sodium chloride 0.9%, 0.5-20 mL, intra-catheter, Q8H GINNA PHYSICAL EXAM: Vitals: 07/28/23 2300 07/29/23 0034 07/29/23 0300 07/29/23 0344 BP: 98/67 109/67 BP Location: Left arm Left arm Patient Position: Lying Lying Pulse: 82 102 84 90 Resp: 22 22 Temp: 37 ??C (98.6 ??F) 36.6 ??C (97.8 ??F) TempSrc: Oral Oral SpO2: 97% 100% Weight: Height: Intake/Output Summary (Last 24 hours) at 07/29/2023 0705 Last data filed at 07/28/2023 1350 Gross per 24 hour Intake 400 ml Output 0 ml Net 400 ml General: Elderly WM; cooperative; no acute distress Eyes: PERRL/EOMI, Conjuctiva Clear ENT: External ears/nose normal; no bruits Neck: Supple Respiratory: Clear to ausculation bilaterally; no wheezing/rales/rhonchi; respirations nonlabored Cardiovascular: RRR, normal S1 and S2. No murmurs or rubs. Gastrointestinal: soft, non-tender abdomen;+ hematochezia Extremities: no cyanosis or clubbing or edema Musculoskeletal: no obvious joint deformities Skin: no obvious rash or bruising Psychiatric: normal affect Neurologic: awake/alert, no focal deficits Lab/Radiology/Diagnostic Review: Recent Labs Lab Units 07/29/23 0257 WBC K/cumm 6.2 HEMOGLOBIN g/dL 7.1* HEMATOCRIT % 22.5* PLATELETS K/cumm 188 Recent Labs Lab Units 07/29/23 0257 SODIUM mmol/L 137 POTASSIUM PLASMA mmol/L 3.5 CHLORIDE mmol/L 106 CO2 mmol/L 24 BUN SERUM mg/dL 16 CREATININE mg/dL 0.84 GLUCOSE mg/dL 92 CALCIUM mg/dL 7.9* Recent Labs Lab Units 07/27/23 1205 PROTIME (PT) sec 13.9* INR 1.22* APTT sec 26* Impression/Plan: 1. New onset atrial fibrillation with RVR Likely precipitated by severe anemia Currently sinus rhythm/sinus tachycardia with heart rates 90s-100s Echo showed EF 63% with mild TR - Patient okay to restart anticoagulation in 3 days per GI. - Continue metoprolol - Will monitor telemetry for recurrent AFib - Consider possible Watchman as an outpatient 2. Syncope Possibly related to severe anemia and hypovolemia Echo showed normal LV systolic function with EF 63%, mild TR 3. Anemia, GI bleed Hemoglobin level 7.1 today s/p PRBCs Patient still reporting black tarry stools - EGD done yesterday showed nonbleeding duodenal ulcer s/p clip - On Protonix - Patient okay to restart anticoagulation in 3 days per GI. 4. Ascending aortic aneurysm Status post tissue composite root replacement on 07/10/[address] showed no organized fluid collection or dehiscence of surgical site. 5. Hyperlipidemia Lipids reviewed - Continue statin 6. Unruptured left MCA saccular aneurysm Seen on CTA done yesterday -Neurosurgery following This note was dictated with voice-recognition software, lumber planer errors may be present. Elise Day NP * Mandi Simpson MD - 07/28/2023 7:10 AM CDT Daily Progress Subjective Chief complaint of Interval History: \ Hard of hearing awake alert apparent acute distress denies any chest pain shortness of breath fevers chills cough congestion has not had a bowel movement as of yet. Last movement yesterday no black in color. Objective Vitals: 24hr Min/Max: Temp Min: 36.4 ??C (97.6 ??F) Max: 37.1 ??C (98.8 ??F) Pulse Min: 95 Max: 121 BP Min: 82/66 Max: 139/72 Resp Min: 16 Max: 34 SpO2 Min: 97 % Max: 100 % Intake/Output Summary (Last 24 hours) at 07/28/2023 0710 Last data filed at 07/28/2023 0425 Gross per 24 hour Intake 2181.67 ml Output 200 ml Net 1981.67 ml Most Recent : Vitals: 07/28/23 0430 BP: 101/65 Pulse: 114 Resp: 18 Temp: 37.1 ??C (98.7 ??F) SpO2: 98% I/O last 2 completed shifts: In: 2181.7 [Blood:1681.7; IV Piggyback:500] Out: 200 [Urine:200] No intake/output data recorded. Physical Exam: General: No acute distress. Alert and oriented x3 Heart: RRR. No rub or murmur Lungs: CTAB. No wheeze or rhonci. Abdomen: Soft, non-tender, non-distended. No rebounding, guarding, or rigidity. Extremities: No cyanosis or edema. Eyes: Extraocular muscles in tact. No scleral icterus noted. Skin: No rash noted. Lab/Radiology/Diagnostic Review: Laboratory review: Lab results in the last 24 hours: Recent Results (from the past 24 hour(s)) Troponin T high-sensitivity 2-hour Collection Time: 07/27/23 12:05 PM Result Value Ref Range Trop T hs 21 <=22 ng/L Trop T hs delta 1 ng/L Trop T hs interp Insignificant CBC without differential Collection Time: 07/27/23 12:05 PM Result Value Ref Range WBC 8.0 3.8 - 9.9 K/cumm Hgb 5.7 (Critical) 13.0 - 17.5 g/dL Hct 18.4 (L) 38.9 - 50.3 % Plt 270 150 - 400 K/cumm MPV 9.0 (L) 9.1 - 12.3 fL RBC 1.78 (L) 4.30 - 5.80 M/cumm MCV 103.4 (H) 81.3 - 96.4 fL MCH 32.0 27.1 - 33.3 pg MCHC 31.0 (L) 32.3 - 35.7 g/dL RDW CV 15.3 (H) 11.1 - 14.9 % RDW SD 52.0 (H) 35.7 - 48.1 fL NRBC abs 0.11 (H) 0.00 - 0.01 K/cumm Protime-INR Collection Time: 07/27/23 12:05 PM Result Value Ref Range PT 13.9 (H) 10.3 - 13.7 sec INR 1.22 (H) 0.90 - 1.20 aPTT Collection Time: 07/27/23 12:05 PM Result Value Ref Range aPTT 26 (L) 28 - 38 sec Pro B-type natriuretic peptide Collection Time: 07/27/23 12:05 PM Result Value Ref Range NT-proBNP 648 (H) <=450 pg/mL NT-Pro BNP - Add on lab test Collection Time: 07/27/23 2:41 PM Result Value Ref Range Acceptable Yes Hemoglobin and hematocrit Collection Time: 07/27/23 4:35 PM Result Value Ref Range Hgb 5.8 (Critical) 13.0 - 17.5 g/dL Hct 18.6 (L) 38.9 - 50.3 % Prepare RBC: 2 Units Collection Time: 07/27/23 5:21 PM Result Value Ref Range Product code [id number] Unit Number [id number] Product Blood Type OPOS Dispense Status ISSUED Product code [id number] Unit Number [id number] Product Blood Type OPOS Dispense Status PRESUMED TRANSFUSED Hemoglobin and hematocrit Collection Time: 07/27/23 11:24 PM Result Value Ref Range Hgb 6.9 (L) 13.0 - 17.5 g/dL Hct 22.2 (L) 38.9 - 50.3 % Prepare RBC: 1 Units Collection Time: 07/28/23 2:05 AM Result Value Ref Range Product code [id number] Unit Number [id number] Product Blood Type OPOS Dispense Status ISSUED CBC without differential Collection Time: 07/28/23 6:29 AM Result Value Ref Range WBC 7.8 3.8 - 9.9 K/cumm Hgb 7.4 (L) 13.0 - 17.5 g/dL Hct 22.7 (L) 38.9 - 50.3 % Plt 210 150 - 400 K/cumm MPV 9.0 (L) 9.1 - 12.3 fL RBC 2.42 (L) 4.30 - 5.80 M/cumm MCV 93.8 81.3 - 96.4 fL MCH 30.6 27.1 - 33.3 pg MCHC 32.6 32.3 - 35.7 g/dL RDW CV 15.4 (H) 11.1 - 14.9 % RDW SD 49.2 (H) 35.7 - 48.1 fL NRBC abs 0.17 (H) 0.00 - 0.01 K/cumm Basic metabolic panel Collection Time: 07/28/23 6:29 AM Result Value Ref Range Sodium 138 135 - 145 mmol/L Potassium, pl 3.9 3.3 - 4.9 mmol/L Chloride 108 97 - 110 mmol/L CO2 20 (L) 22 - 32 mmol/L Anion gap 10 2 - 15 mmol/L BUN 29 (H) 6 - 25 mg/dL Creatinine 0.80 0.80 - 1.30 mg/dL Glucose 105 70 - 199 mg/dL Calcium 8.4 (L) 8.5 - 10.3 mg/dL Phosphorus Collection Time: 07/28/23 6:29 AM Result Value Ref Range Phosphorus, pl 2.5 2.3 - 4.5 mg/dL Magnesium Collection Time: 07/28/23 6:29 AM Result Value Ref Range Magnesium 2.1 1.4 - 2.5 mg/dL eGFR Collection Time: 07/28/23 6:29 AM Result Value Ref Range eGFR 91 mL/min/1.73 m2 Assessment/Plan Principal Problem: Acute blood loss anemia Active Problems: Obstructive sleep apnea syndrome Melena Premature atrial contractions Syncope and collapse Hypercholesterolemia Saccular aneurysm Class 1 obesity due to excess calories with serious comorbidity and body mass index (BMI) of 31.0 to 31.9 in adult Melena, suspected acute upper GI bleeding Severe anemia, suspect anemia of acute blood loss Hemoglobin dropped from 10.4 on 07/14/2023 -5.5 on presentation Hold home aspirin 81 mg daily PPI IV b.i.d. Appreciate GI eval did undergo an EGD nonbleeding duodenal ulcer clips placed. Discussed with GI recommend clear liquid diet Continue monitor H&H transfuse as indicated aspirin when okay with GI Possible new onset atrial fibrillation with rapid ventricular response Reviewed telemetry. Appears to be sinus tachycardia with frequent PACs Cardiology consulted, Consider possible Watchman as an outpatient Monitor on telemetry Check transthoracic echocardiogram Continue home metoprolol tartrate 25 mg b.i.d. Cardiology following Syncope and collapse Likely from severe anemia. Possibly related to atrial fibrillation. PT/OT evals once clinically stable History of ascending aortic aneurysm Status post composite root replacement on 07/10/[address] done on presentation showed no evidence of surgical complications. Cardiothoracic surgery reportedly consulted from the emergency department. Hypercholesterolemia Continue home Lipitor 40 mg daily Class 1 obesity, BMI 31.01 Outpatient weight loss program Possible 0.8 cm saccular aneurysm in the left middle cerebral artery Recommend CT angiography Discussed with neurosurgery Code status: Full Code Goals for discharge / anticipated LOS: Anticipate admission > 2 midnights for management of severe anemia Medical complexity / risk: High - acute condition posing threat to life * Elise Day NP - 07/28/2023 7:04 AM CDT [facility] Cardiology [address], [place] [address] Cardiology MD Kali Mckeon MD Robert Kopitsky, MD David Sewall, MD James Smith, MD Christopher Speidel, MD Jeremy Tietjens, MD Gus Theodos, MD Daniel Wagner, MD Bradley Witbrodt, MD Adam Shpigel MD Crystal Pipkens, ALEX Stovall, ALEX Monk, ALEX Smith, ALEX Cardiology Daily Progress Note Provider: Elise Day NP Patient Name: Judi Adam : 1945 Date of Service: 07/28/2023 CHIEF COMPLAINT: Dizziness SUBJECTIVE: - Patient denies chest pain, but still has some shortness of breath with exertion. - He reports having black tarry stools. He is scheduled for EGD today. - Telemetry shows sinus rhythm/tachycardia with heart rates in the 90- [id number]. MEDICATIONS [MAR Hold] atorvastatin, 40 mg, oral, Daily [MAR Hold] metoprolol tartrate, 25 mg, oral, BID [MAR Hold] pantoprazole, 40 mg, intravenous, BID [MAR Hold] sodium chloride 0.9%, 0.5-20 mL, intra-catheter, Q8H GINNA PHYSICAL EXAM: Vitals: 07/28/23 0319 07/28/23 0333 07/28/23 0430 07/28/23 0739 BP: 139/72 101/65 107/74 BP Location: Right arm Patient Position: Lying Pulse: 115 98 114 117 Resp: 24 Temp: 36.7 ??C (98.1 ??F) 37.1 ??C (98.7 ??F) 36.5 ??C (97.7 ??F) TempSrc: Oral Oral Temporal SpO2: 99% 98% 100% Weight: Height: Intake/Output Summary (Last 24 hours) at 07/28/2023 0807 Last data filed at 07/28/2023 0425 Gross per 24 hour Intake 2181.67 ml Output 200 ml Net 1981.67 ml General: Elderly WM; cooperative; no acute distress Eyes: PERRL/EOMI, Conjuctiva Clear ENT: External ears/nose normal; no bruits Neck: Supple Respiratory: Clear to ausculation bilaterally; no wheezing/rales/rhonchi; respirations nonlabored Cardiovascular: RRR, normal S1 and S2. No murmurs or rubs. Gastrointestinal: soft, non-tender abdomen;+ hematochezia Extremities: no cyanosis or clubbing or edema Musculoskeletal: no obvious joint deformities Skin: no obvious rash or bruising Psychiatric: normal affect Neurologic: awake/alert, no focal deficits Lab/Radiology/Diagnostic Review: Recent Labs Lab Units 07/28/23 0629 WBC K/cumm 7.8 HEMOGLOBIN g/dL 7.4* HEMATOCRIT % 22.7* PLATELETS K/cumm 210 Recent Labs Lab Units 07/28/23 0629 SODIUM mmol/L 138 POTASSIUM PLASMA mmol/L 3.9 CHLORIDE mmol/L 108 CO2 mmol/L 20* BUN SERUM mg/dL 29* CREATININE mg/dL 0.80 GLUCOSE mg/dL 105 CALCIUM mg/dL 8.4* Recent Labs Lab Units 07/27/23 1205 PROTIME (PT) sec 13.9* INR 1.22* APTT sec 26* Impression/Plan: 1. New onset atrial fibrillation with RVR Likely precipitated by severe anemia Currently sinus rhythm/sinus tachycardia with heart rates 90s-100s Echo done yesterday showed EF 63% with mild TR - Not able to anticoagulate at this time with active GI bleed. - Continue metoprolol - Will monitor telemetry for recurrent AFib - Consider possible Watchman as an outpatient 2. Syncope Likely in setting of severe anemia and active GI bleed. Echo showed normal LV systolic function with EF 63%, mild TR 3. Anemia, GI bleed Hemoglobin level 7.4 today s/p PRBCs Patient still reporting black tarry stools - EGD today; will await results - Not on anticoagulation at this time 4. Ascending aortic aneurysm Status post tissue composite root replacement on 07/10/[address] showed no organized fluid collection or dehiscence of surgical site. 5. Hyperlipidemia Lipids reviewed - Continue statin This note was dictated with voice-recognition software, lumber planer errors may be present. Elise Day NP * Jackie Perez MD - 07/27/2023 11:19 AM CDT Cardiothoracic surgery brief note 77-year-old male status post ascending and root replacement on July [address] Lynn, who was discharged to home on July 14. He returns today with a syncopal episode and found to have a hemoglobin of 5.5. His states that he has been having dark tarry stools for several days. EKG demonstrates sinus tachycardia. CTA chest abdomen pelvis demonstrates no concerns for postoperative concerns. Recommend admission to Medicine with workup of his GI bleeding, can obtain TTE while he is here. documented in this encounter H&P Notes * Pedro Luis Brantley DO - 07/28/2023 6:52 AM CDT I have reviewed the H&P, examined the patient, and endorse the findings as written. Plan of Care : Based on the above findings, I consider Judi Adam to be an acceptable risk for : Procedure(s): ESOPHAGOGASTRODUODENOSCOPY Source Note - Parish Harrell PA - 07/27/2023 3:01 PM CDT Gastroenterology [facility] Consult: Mateusz Brantley DO Contact info: Week - [phone]; After hours: [phone] Referring doctor: Nighat Angeles MD PCP: Radha Lozada MD Reason for consult: GIB HPI: Patient is a 77 y.o. male with a history of HTN, hyponatremia, ascending aortic aneurysm s/p root replacement on 07/10/[address] Lynn, he was discharged home on 07/14 who we are consulted for the above reason. He reports about 5 days after being home following his surgery he began to experience black stools for several days. Patient has had several days of worsening generalized fatigue and lightheadedness and had a syncope episode last night while getting up to use the restroom and then again this morning another syncopal episode. He denies new symptoms including chest pain, diaphoresis, nausea, vomiting, abdominal pain, back pain. He denies use of NSAIDs and takes aspirin 81mg daily but no AC. Patient reports last colonoscopy 10 years ago Since admission he has been diagnosed with new onset a-fib with RVR. Hgb 5.5 - transfused 2 units blood, post transfusion hgb pending. Past Medical History: Diagnosis Date Arthritis Arthritis; Comments: [facility] 10/19/2015 - HX OTHER MEDICAL ascending aortic aneurysm; Comments: [facility] 10/19/2015 - Hypertension Hypertension Sleep apnea Sleep apnea (Not in a hospital admission) No Known Allergies Social History Tobacco Use Smoking status: Never Smokeless tobacco: Never Substance and Sexual Activity Drug use: No Sexual activity: Not on file Alcohol Use: Not At Risk (07/10/2023) AUDIT-C Frequency of Alcohol Consumption: 2-4 times a month Average Number of Drinks: 1 or 2 Frequency of Binge Drinking: Less than monthly No past surgical history on file. Family History Problem Relation Age of Onset Hypertension Mother Hypertension; Hypertension Father Hypertension; Coronary artery disease Other Family history of Coronary artery disease; Review of Systems Constitutional: Negative for chills, fever and unexpected weight change. HENT: Negative for trouble swallowing. Respiratory: Negative for chest tightness and shortness of breath. Cardiovascular: Negative for chest pain. Gastrointestinal: Negative for abdominal distention, abdominal pain, constipation, diarrhea, nauseaand vomiting. Genitourinary: Negative for frequency. Musculoskeletal: Negative for back pain. Neurological: Positive for syncope, weakness and light-headedness. Psychiatric/Behavioral: Negative for confusion. 24hr Min/Max: Temp Min: 36.6 ??C (97.9 ??F) Max: 36.9 ??C (98.5 ??F) Pulse Min: 105 Max: 121 BP Min: 93/67 Max: 129/58 Resp Min: 16 Max: 34 SpO2 Min: 97 % Max: 100 % Most Recent : Vitals: 07/27/23 1400 BP: 108/60 Pulse: 109 Resp: 29 Temp: SpO2: 100% Physical Exam Vitals reviewed. Constitutional: General: He is not in acute distress. HENT: Head: Normocephalic. Nose: Nose normal. Eyes: Conjunctiva/sclera: Conjunctivae normal. Cardiovascular: Rate and Rhythm: Normal rate. Pulmonary: Effort: Pulmonary effort is normal. Abdominal: General: There is no distension. Palpations: Abdomen is soft. There is no mass. Tenderness: There is no abdominal tenderness. There is no guarding. Skin: General: Skin is warm. Neurological: Mental Status: He is alert. Psychiatric: Mood and Affect: Mood normal. Lab/Radiology/Diagnostic Review: Recent Labs Lab Units 07/27/23 1205 07/27/23 0821 WBC K/cumm 8.0 8.7 HEMOGLOBIN g/dL 5.7* 5.5* HEMATOCRIT % 18.4* 17.6* PLATELETS K/cumm 270 315 Recent Labs Lab Units 07/27/23 0821 SODIUM mmol/L 138 POTASSIUM PLASMA mmol/L 4.6 CHLORIDE mmol/L 105 CO2 mmol/L 19* ANIONGAP mmol/L 14 GLUCOSE mg/dL 136 BUN SERUM mg/dL 33* CREATININE mg/dL 0.85 CALCIUM mg/dL 8.5 ALBUMIN g/dL 3.1* ALK PHOS Units/L 61 ALT Units/L 31 AST Units/L 46 BILIRUBIN TOTAL mg/dL 0.5 Recent Labs Lab Units 07/27/23 1205 APTT sec 26* INR 1.22* CTA Chest Abdomen Pelvis Result Date: 07/27/2023 Postsurgical changes of aortic valve replacement and composite type ascending aorta repair with modified Bentall coronary artery reimplantation. There is no organized fluid collection or dehiscence of the surgical site. No CT explanation for chest pain. Dictated by: Jad Gross MD, PHD The radiology attending physician has personally reviewed this study, and had reviewed and/or editedthis written report and agrees with it. Electronically signed by: Reyes Vincent M.D. CT Head and Cervical Spine WO Contrast Result Date: 07/27/2023 No acute intracranial process. 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 CT angiography of the head may be considered for further evaluation. No evidence of acute fracture in the cervical spine. Electronically signed by: Evin Fowler MD ASSESSMENT/PLAN: 1. UGIB/severe anemia: consider PUD, AVM, Dieulafoy lesion, other. Plan: - EGD tomorrow - monitor H/H, transfuse as indicated - Pantoprazole 40mg IV q 12 hrs - NPO MN - No NSAIDs in any formulation 2. Colon cancer screening: per pt last colonoscopy 10yrs ago. Plan: outpt screening colonoscopy as health permits. Thank you for allowing us to participate in the care of Judi Adam, we will continue to follow. CARLY Maurice Cosigned by Pedro Luis Brantley DO at 07/27/2023 3:45 PM CDT * Ebenezer Rosa MD - 07/27/2023 3:25 PM CDT Images from the original note were not included. History and Physical Date of service: 07/27/23 Primary care provider: Radha Lozada MD Chief Complaint: Lightheadedness, fainting Subjective HPI: 77-year-old man with a past medical history notable for thoracic aortic aneurysm status post aorticroot replacement on 07/10/[address] Lynn, hypertension, obstructive sleep apnea, hypercholesterolemia who presents with lightheadedness, fatigue, and after 2 syncopal episodes. History was obtained from the patient and review of local records. Patient reports that he was discharged from [facility] on 07/14/2023 after undergoing aortic root replacement. He initially was recuperating well at home. After several days, he developed black stools which lasted for several days. He developed progressively worsening fatigue, li ghtheadedness. He reports he has very little energy. He reports he had 2 episodes where he fainted.He had an episode when he fainted this morning and EMS was notified. He was brought to the [facility] Emergency Department further evaluation. In the emergency department, labs are notable for hemoglobin 5.5. He was given 2 units packed red blood cells. EKG initially showed possible atrial fibrillation with rapid ventricular response. Cardiology and Gastroenterology were consulted. He underwent CT angiography of the chest, abdomen, and pelvis which showed postoperative changes with no wound to his sensor fluid collection at the surgicalsite. Dr. Lynn was reportedly notified of his admission. He was admitted to Medicine. On my evaluation of the patient, he reports ongoing fatigue. He reports some improvement after receiving packed red blood cells. He denies current chest pain or shortness of breath. He denies currentlightheadedness while lying in bed. I interviewed him with his family at the bedside. He has been taking aspirin since surgery. He denies any other NSAID use. He has been taking Crestorfor hypercholesterolemia. He takes metoprolol for blood pressure control. He denies any history of tobacco use. He was drinking alcohol occasionally prior to surgery but denies any recent heavy alcohol use. He reports he is an avid ana paula and has traveled around the [place] hunting. His would make medical decisions in an emergency. We discussed code status as part of admission and he confirmed full code. Family history reviewed and notable for no of family history of gastrointestinal cancers or gastrointestinal bleeding. Past Medical History: Diagnosis Date Arthritis Arthritis; Comments: [facility] 10/19/2015 - HX OTHER MEDICAL ascending aortic aneurysm; Comments: [facility] 10/19/2015 - Hypertension Hypertension Sleep apnea Sleep apnea History reviewed. No pertinent surgical history. Medications Prior to Admission Medication Sig Dispense Refill Last Dose aspirin 81 mg enteric coated tablet Take 1 tablet (81 mg total) by mouth daily 30 tablet 11 07/26/2023 atorvastatin (LIPITOR) 40 mg tablet Take 1 tablet (40 mg total) by mouth daily 90 tablet 0 07/26/2023 metoprolol tartrate (LOPRESSOR) 25 mg immediate release tablet Take 1 tablet (25 mg total) by mouth2 (two) times a day 30 tablet 3 07/26/2023 acetaminophen (TylenoL) 325 mg tablet Take 2 tablets (650 mg total) by mouth every 6 (six) hours asneeded for pain Unknown No Known Allergies Social History Tobacco Use Smoking status: Never Smokeless tobacco: Never Substance and Sexual Activity Drug use: No Sexual activity: None Alcohol Use: Not At Risk (07/10/2023) AUDIT-C Frequency of Alcohol Consumption: 2-4 times a month Average Number of Drinks: 1 or 2 Frequency of Binge Drinking: Less than monthly Family History Problem Relation Age of Onset Hypertension Mother Hypertension; Hypertension Father Hypertension; Coronary artery disease Other Family history of Coronary artery disease; Review of Systems: (unless specified above) 1. Constitutional Denies: weight loss, weight gain, fever, chills, night sweats + fatigue 2. Eyes Denies: change in vision, double vision, eye pain, eye discharge, icterus 3. ENT Denies: change in hearing, ear pain, ear discharge, nose bleed, nasal congestion, sore throat 4. Respiratory Denies: SOB, wheezing, cough, sputum, hemoptysis 5. CV Denies: chest pain, palpitations, edema, dyspnea + syncope 6. GI Denies: abdominal pain, decreased appetite, nausea, vomiting, change in bowel habits, diarrhea, constipation, BRBPR + melena 7. Denies: dysuria, frequency, hematuria, nocturia, urgency 8. Metabolic Denies: cold intolerance, heat intolerance, polyphagia, polydipsia 9. Neurologic Denies: headache, dizziness, seizure, change in mental status, focal weakness, focal numbness 10. Musculoskeletal Denies: myalgia, joint pain, joint redness, joint swelling, extremity pain 11. Skin Denies: rash or edema Objective Vitals: Vitals: 07/27/23 1540 BP: 133/77 Pulse: 99 Resp: 22 Temp: 36.4 ??C (97.6 ??F) SpO2: 100% 24hr Min/Max: Temp Min: 36.4 ??C (97.6 ??F) Max: 36.9 ??C (98.5 ??F) Pulse Min: 99 Max: 121 BP Min: 93/67 Max: 133/77 Resp Min: 16 Max: 34 SpO2 Min: 97 % Max: 100 % Most Recent : Vitals: 07/27/23 1540 BP: 133/77 Pulse: 99 Resp: 22 Temp: 36.4 ??C (97.6 ??F) SpO2: 100% No intake/output data recorded. I/O this shift: In: 1155 [Blood:655; IV Piggyback:500] Out: - Physical exam: General appearance: NAD, conversant Eyes: sclera non icteric HENT: Atraumatic Neck: supple, trachea midline Lungs: Clear to auscultation bilaterally, normal respiratory effort Heart: Tachycardic, regular, frequent extra beats, no audible murmurs Abd: NABS, obese, nontender Lower Ext: No peripheral edema or extremity LAD Neuro: No new gross deficits appreciated Musculoskeletal: no gross joint erythema, edema, tenderness Skin: Steri-Strips in place on mid sternal surgical site, no erythema or drainage Psych: Appropriate affect, alert Vital signs and nursing notes reviewed Lab/Radiology/Diagnostic Review: Recent Labs Lab Units 07/27/23 1205 07/27/23 0821 WBC K/cumm 8.0 8.7 HEMOGLOBIN g/dL 5.7* 5.5* HEMATOCRIT % 18.4* 17.6* PLATELETS K/cumm 270 315 Recent Labs Lab Units 07/27/23 0821 SODIUM mmol/L 138 POTASSIUM PLASMA mmol/L 4.6 CHLORIDE mmol/L 105 CO2 mmol/L 19* ANIONGAP mmol/L 14 GLUCOSE mg/dL 136 BUN SERUM mg/dL 33* CREATININE mg/dL 0.85 CALCIUM mg/dL 8.5 ALBUMIN g/dL 3.1* ALK PHOS Units/L 61 ALT Units/L 31 AST Units/L 46 BILIRUBIN TOTAL mg/dL 0.5 Imaging personally reviewed: CT angiography of the chest, abdomen, and pelvis shows postoperative changes with no fluid collections or dehiscence of the surgical site CT head and cervical spine without contrast shows no acute intracranial process. Id 0.8 cm lesion in the left sylvian fissure which may represent a numb ruptured left middle cerebral artery saccular aneurysm. Other studies personally reviewed: EKG shows possible atrial fibrillation rapid ventricular response or sinus tachycardia with frequent PACs, nonspecific ST-T changes. I personally interpreted the EKG. Assessment/Plan Principal Problem: Acute blood loss anemia Active Problems: Obstructive sleep apnea syndrome Melena Premature atrial contractions Syncope and collapse Hypercholesterolemia Saccular aneurysm Class 1 obesity due to excess calories with serious comorbidity and body mass index (BMI) of 31.0 to 31.9 in adult Melena, suspected acute upper GI bleeding Severe anemia, suspect anemia of acute blood loss Hemoglobin dropped from 10.4 on 07/14/2020 3-5.5 on presentation Hold home aspirin 81 mg daily PPI IV b.i.d. Gastroenterology consulted, discussed with team Plans for EGD tomorrow noted NPO after midnight He would like to try some soup for dinner. Trial of diet. Make NPO if ongoing melena. Possible new onset atrial fibrillation with rapid ventricular response Reviewed telemetry. Appears to be sinus tachycardia with frequent PACs Cardiology consulted, reviewed note from earlier today Repeat blood bank attendant on telemetry Check transthoracic echocardiogram Continue home metoprolol tartrate 25 mg b.i.d. Syncope and collapse Likely from severe anemia. Possibly related to atrial fibrillation. PT/OT evals once clinically stable History of ascending aortic aneurysm Status post composite root replacement on 07/10/[address] done on presentation showed no evidence of surgical complications. Cardiothoracic surgery reportedly consulted from the emergency department. Hypercholesterolemia Continue home Lipitor 40 mg daily Class 1 obesity, BMI 31.01 Outpatient weight loss program Possible 0.8 cm saccular aneurysm in the left middle cerebral artery Recommend CT angiography as an outpatient Code status: Full Code Goals for discharge / anticipated LOS: Anticipate admission > 2 midnights for management of severe anemia Medical complexity / risk: High - acute condition posing threat to life Ebenezer Rosa MD 07/27/2023 4:26 PM documented in this encounter Procedure Notes * Pedro Luis Brantley, - 07/28/2023 8:27 AM CDTAssociated Order(s): EGD ENDOSCOPY LAB Patient Name: Judi Adam Procedure Date: 07/28/2023 8:27 AM Admit Type: Inpatient Room: [facility] Date of : 1945 Instrument Name: [id number] Gender: Male Note Status: Finalized Procedure: Upper GI endoscopy Indications: Acute post hemorrhagic anemia Providers: Pedro Luis Brantley D.O. Referring MD: Medicines: Propofol per Anesthesia Complications: No immediate complications. Estimated Blood Loss: Estimated blood loss: none. Procedure: Pre-Anesthesia Assessment: - Prior to the procedure, a History and Physical was performed, and patient medications and allergies were reviewed. The patient is competent. The risks and benefits of the procedure and the sedation options and risks were discussed with the patient. All questions were answered and informed consent was obtained. Patient identification and proposed procedure were verified by the physician in the pre-procedure area. Mental Status Examination: alert and oriented. Airway Examination: normal oropharyngeal airway and neck mobility. Respiratory Examination: clear to auscultation. CV Examination: normal. Prophylactic Antibiotics: The patient does not require prophylactic antibiotics. Prior Anticoagulants: The patient has taken no anticoagulant or antiplatelet agents. ASA Grade Assessment: III - A patient with severe systemic disease. After reviewing the risks and benefits, the patient was deemed in satisfactory condition to undergo the procedure. The anesthesia plan was to use monitored anesthesia care (MAC). Immediately prior to administration of medications, the patient was re-assessed for adequacy to receive sedatives. The heart rate, respiratory rate, oxygen saturations, blood pressure, adequacy of pulmonary ventilation, and response to care were monitored throughout the procedure. The physical status of the patient was re-assessed after the procedure. The benefits, risks, and alternatives to the procedure and sedation were discussed and informed consent was obtained. The scope was passed under direct vision. The Endoscope was introduced through the mouth, and advanced to the second part of duodenum. The upper GI endoscopy was accomplished without difficulty. The patient tolerated the procedure well. Findings: The second portion of the duodenum was normal. One non-bleeding superficial duodenal ulcer with a flat pigmented spot (Mak Class IIc) was found in the duodenal bulb. The lesion was 8 mm in largest dimension. For hemostasis, one hemostatic clip was successfully placed. 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 There was no bleeding during, or at the end, of the procedure. The entire examined stomach was normal. Biopsies were taken with a cold forceps for Helicobacter pylori testing using CLOtest. The esophagus was normal. Impression: - Normal second portion of the duodenum. - Non-bleeding duodenal ulcer with a flat pigmented spot (Mak Class IIc). Clip was placed. 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 - Normal stomach. Biopsied. - Normal esophagus. - Gastric ulcer(s) were not seen. - A malignant-appearing gastric tumor was not seen. - The examination was otherwise normal. Recommendation: - Await pathology results. - The patient was transfered to the floor in stable condition. - NO active or stigmata of recent gastrointestinal hemorrhage is seen. - Monitor H/H and transfuse as needed. - Resume Xarelto (rivaroxaban) at prior dose in 3 days. Attending Participation: I personally performed the entire procedure. Electronically signed by Pedro Luis Brantley D.O. Pedro Luis Brantley D.O. 07/28/2023 8:56:36 AM Number of Addenda: 0 Note Initiated On: 07/28/2023 8:27 AM documented in this encounter Consult Notes * Chaim Moon PA - 07/28/2023 12:18 PM CDTAssociated Order(s): IP CONSULT TO NEUROSURGERY [facility] Neurosurgery Consult Note CHIEF COMPLAINT Lightheadedness HISTORY OF PRESENT ILLNESS Judi Adam is a pleasant 77 year old male with medical hx of HTN, hyponatremia, ascending aortic aneurysm s/p root replacement on 07/10/2023 presenting with generalized fatigue. He reports dark tarry stools for 1 week. He also endorses worsening generalized fatigue and lightheadedness reports a syncopal episode in the bathroom. States he has been off blood thinning meds. Denies any headache. Denies any vision changes. Denies any slurred speech, denies numbness/tingling/weakness of the face or extremities. CT head was completed during workup and was concerning for L-MCA aneurysm. CTA is ofhead and neck is currently ordered and pending. Neurosurgery was consulted for these findings. PAST MEDICAL HISTORY He has a past medical history of Anemia, Arthritis, Atrial fibrillation (CMS/HCC) (HCC), Coronary artery disease, OTHER MEDICAL, Hypertension, and Sleep apnea. PAST SURGICAL HISTORY He has a past surgical history that includes Coronary artery bypass graft (N/A, 07/14/2023). FAMILY HISTORY His family history includes Coronary artery disease in an other family member; Hypertension in his father and mother. MEDICATIONS Current Facility-Administered Medications: acetaminophen (TYLENOL) tablet 650 mg, 650 mg, oral, Q4H PRN, Pedro Luis Brantley, DO, 650 mg at 07/27/23 1334 atorvastatin (LIPITOR) tablet 40 mg, 40 mg, oral, Daily, Pedro Luis Brantley, DO, 40 mg at 07/27/23 1713 Carrier Fluids for Secondary Infusion - 0.9% Sodium Chloride, 30 mL, intravenous, PRN, StevenE. Brantley DO Lactated Ringer's (LR) infusion, 100 mL/hr, intravenous, Continuous, Ebenezer Rosa MD, Last Rate: 50 mL/hr at 07/28/23 0840, Restarted at 07/28/23 0853 metoprolol tartrate (LOPRESSOR) immediate release tablet 25 mg, 25 mg, oral, BID, Pedro Luis Brantley, DO ondansetron ODT (ZOFRAN-ODT) disintegrating tablet 4 mg, 4 mg, oral, Q6H PRN OR ondansetron (ZOFRAN) injection 4 mg, 4 mg, intravenous, Q6H PRN, Pedro Luis Brantley, DO pantoprazole (PROTONIX) 40 mg in sodium chloride 0.9% 10 mL IV Syringe, 40 mg, intravenous, BID, Pedro Luis Brantley, DO, 40 mg at 07/27/23 2100 sodium chloride 0.9% flush 0.5-20 mL, 0.5-20 mL, intra-catheter, Q8H GINNA, Pedro Luis Brantley, sodium chloride 0.9% flush 0.5-20 mL, 0.5-20 mL, intra-catheter, PRN, Pedro Luis Brantley, sodium chloride 0.9% IVPB 0-250 mL, 0-250 mL, intravenous, Once, Pedro Luis Brantley, , Held at 07/27/23 1900 sodium chloride 0.9% IVPB 0-250 mL, 0-250 mL, intravenous, Once, Pedro Luis Brantley DO, Held at 07/28/23 0230 ALLERGIES He has No Known Allergies. SOCIAL HISTORY He reports that he has never smoked. He has never used smokeless tobacco. He reports that he does not use drugs. Patient reports consuming alcoholic drinks , with a daily consumption of drinks. Patient also reports less than monthly consumption of 6 or more alcoholic drinks at one occasion. REVIEW OF SYSTEMS Review of Systems Constitutional: Positive for malaise/fatigue. HENT: Negative. Eyes: Negative. Respiratory: Negative. Cardiovascular: Negative. Gastrointestinal: Positive for melena. Genitourinary: Negative. Musculoskeletal: Negative. Skin: Negative. Neurological: Negative. Endo/Heme/Allergies: Negative. Psychiatric/Behavioral: Negative. Objective VITAL SIGNS BP 125/87 (BP Location: Left arm, Patient Position: HOB 30 degrees) Pulse 100 Temp 36.8 ??C (98.2 ??F) (Oral) Resp 24 Ht 182.9 cm (6') Wt 103.7 kg (228 lb 9.9 oz) SpO2 97% BMI 31.01 kg/m?? PHYSICAL EXAM On physical examination the patient is awake/alert and in no apparent distress.Speech is clear and fluent. Fund of knowledge is normal. Cranial nerves 2-12 were grossly intact. Strength was 5/5 throughout with normal muscular bulk and tone. Sensation was intact to light touch. Gait not checked. Finger to nose coordination normal. No drift. REVIEW OF IMAGES Recent Labs Lab Units 07/28/23 0629 SODIUM mmol/L 138 POTASSIUM PLASMA mmol/L 3.9 CHLORIDE mmol/L 108 CO2 mmol/L 20* ANIONGAP mmol/L 10 BUN SERUM mg/dL 29* CREATININE mg/dL 0.80 GLUCOSE mg/dL 105 CALCIUM mg/dL 8.4* Recent Labs Lab Units 07/28/23 0629 WBC K/cumm 7.8 HEMOGLOBIN g/dL 7.4* HEMATOCRIT % 22.7* PLATELETS K/cumm 210 CT Head: No acute intracranial process. 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 CT angiography of the head may be considered for further evaluation. No evidence of acute fracture in the cervical spine. Assessment Judi Adam is a pleasant 77 year old male with hx of HTN, MONIKA, thrombocytopenia, hyponatremia, ascending aortic aneurysm with recent aortic procedure presenting with a chief complaint of lightheadedness, syncope, GI bleed, and generalized fatigue. During workup he underwent a head CT showing 0.8 cm lesion in left sylvian fissure concerning for an incidental unruptured L-MCA saccular aneurysm. Patient was staffed with Dr. Javon Calles. Plan I have reviewed the patient's history, exam, diagnostic studies with Dr. Calles. CT head reveals likely incidental aneurysm. Recommend obtaining CTA of head and neck to fully evaluate. Will make further recommendations when completed. No plans for neurosurgical intervention at this time. Thank you for allowing us to assist in the care of this pleasant man. Chaim Moon PA-C [facility] Neurosurgery Please call neurosurgery PA Chaim Moon at [phone] with any questions/concerns. Cosigned by Javon Calles MD PhD at 07/30/2023 3:14 PM CDT * Parish Harrell PA - 07/27/2023 3:01 PM CDTAssociated Order(s): IP CONSULT TO GASTROENTEROLOGY Gastroenterology Consult [facility] Consult: Mateusz Brantley DO Contact info: Week - [phone]; After hours: [phone] Referring doctor: Nighat Angeles MD PCP: Radha Lozada MD Reason for consult: GIB HPI: Patient is a 77 y.o. male with a history of HTN, hyponatremia, ascending aortic aneurysm s/p root replacement on 07/10/[address] Lynn, he was discharged home on 07/14 who we are consulted for the above reason. He reports about 5 days after being home following his surgery he began to experience black stools for several days. Patient has had several days of worsening generalized fatigue and lightheadedness and had a syncope episode last night while getting up to use the restroom and then again this morning another syncopal episode. He denies new symptoms including chest pain, diaphoresis, nausea, vomiting, abdominal pain, back pain. He denies use of NSAIDs and takes aspirin 81mg daily but no AC. Patient reports last colonoscopy 10 years ago Since admission he has been diagnosed with new onset a-fib with RVR. Hgb 5.5 - transfused 2 units blood, post transfusion hgb pending. Past Medical History: Diagnosis Date Arthritis Arthritis; Comments: [facility] 10/19/2015 - HX OTHER MEDICAL ascending aortic aneurysm; Comments: [facility] 10/19/2015 - Hypertension Hypertension Sleep apnea Sleep apnea (Not in a hospital admission) No Known Allergies Social History Tobacco Use Smoking status: Never Smokeless tobacco: Never Substance and Sexual Activity Drug use: No Sexual activity: Not on file Alcohol Use: Not At Risk (07/10/2023) AUDIT-C Frequency of Alcohol Consumption: 2-4 times a month Average Number of Drinks: 1 or 2 Frequency of Binge Drinking: Less than monthly No past surgical history on file. Family History Problem Relation Age of Onset Hypertension Mother Hypertension; Hypertension Father Hypertension; Coronary artery disease Other Family history of Coronary artery disease; Review of Systems Constitutional: Negative for chills, fever and unexpected weight change. HENT: Negative for trouble swallowing. Respiratory: Negative for chest tightness and shortness of breath. Cardiovascular: Negative for chest pain. Gastrointestinal: Negative for abdominal distention, abdominal pain, constipation, diarrhea, nauseaand vomiting. Genitourinary: Negative for frequency. Musculoskeletal: Negative for back pain. Neurological: Positive for syncope, weakness and light-headedness. Psychiatric/Behavioral: Negative for confusion. 24hr Min/Max: Temp Min: 36.6 ??C (97.9 ??F) Max: 36.9 ??C (98.5 ??F) Pulse Min: 105 Max: 121 BP Min: 93/67 Max: 129/58 Resp Min: 16 Max: 34 SpO2 Min: 97 % Max: 100 % Most Recent : Vitals: 07/27/23 1400 BP: 108/60 Pulse: 109 Resp: 29 Temp: SpO2: 100% Physical Exam Vitals reviewed. Constitutional: General: He is not in acute distress. HENT: Head: Normocephalic. Nose: Nose normal. Eyes: Conjunctiva/sclera: Conjunctivae normal. Cardiovascular: Rate and Rhythm: Normal rate. Pulmonary: Effort: Pulmonary effort is normal. Abdominal: General: There is no distension. Palpations: Abdomen is soft. There is no mass. Tenderness: There is no abdominal tenderness. There is no guarding. Skin: General: Skin is warm. Neurological: Mental Status: He is alert. Psychiatric: Mood and Affect: Mood normal. Lab/Radiology/Diagnostic Review: Recent Labs Lab Units 07/27/23 1205 07/27/23 0821 WBC K/cumm 8.0 8.7 HEMOGLOBIN g/dL 5.7* 5.5* HEMATOCRIT % 18.4* 17.6* PLATELETS K/cumm 270 315 Recent Labs Lab Units 07/27/23 0821 SODIUM mmol/L 138 POTASSIUM PLASMA mmol/L 4.6 CHLORIDE mmol/L 105 CO2 mmol/L 19* ANIONGAP mmol/L 14 GLUCOSE mg/dL 136 BUN SERUM mg/dL 33* CREATININE mg/dL 0.85 CALCIUM mg/dL 8.5 ALBUMIN g/dL 3.1* ALK PHOS Units/L 61 ALT Units/L 31 AST Units/L 46 BILIRUBIN TOTAL mg/dL 0.5 Recent Labs Lab Units 07/27/23 1205 APTT sec 26* INR 1.22* CTA Chest Abdomen Pelvis Result Date: 07/27/2023 Postsurgical changes of aortic valve replacement and composite type ascending aorta repair with modified Bentall coronary artery reimplantation. There is no organized fluid collection or dehiscence of the surgical site. No CT explanation for chest pain. Dictated by: Jad Gross MD, PHD The radiology attending physician has personally reviewed this study, and had reviewed and/or editedthis written report and agrees with it. Electronically signed by: Reyes Vincent M.D. CT Head and Cervical Spine WO Contrast Result Date: 07/27/2023 No acute intracranial process. 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 CT angiography of the head may be considered for further evaluation. No evidence of acute fracture in the cervical spine. Electronically signed by: Evin Fowler MD ASSESSMENT/PLAN: 1. UGIB/severe anemia: consider PUD, AVM, Dieulafoy lesion, other. Plan: - EGD tomorrow - monitor H/H, transfuse as indicated - Pantoprazole 40mg IV q 12 hrs - NPO MN - No NSAIDs in any formulation 2. Colon cancer screening: per pt last colonoscopy 10yrs ago. Plan: outpt screening colonoscopy as health permits. Thank you for allowing us to participate in the care of Judi Adam, we will continue to follow. CARLY Maurice Cosigned by Pedro Luis Brantley DO at 07/27/2023 3:45 PM CDT * Erin Monk, ALEX - 07/27/2023 2:22 PM CDTAssociated Order(s): IP CONSULT TO CARDIOLOGY [facility] Cardiology [address] [id number] Cardiology Yariel Hills, MD Kali Reddy, MD Wellington Dugan, MD Parish Monae, MD Kilo Sims, MD Johnny Maher, MD Osmin Barbosa, MD Best Ramirez, MD Nicolas Golden, MD Everardo Briscoe, DO Javon Lopez, MD Rory Dowling, MD Clyde Stovall, CUSTOMER CONTACT SALES ASSOCIATE Erin Monk, CUSTOMER CONTACT SALES ASSOCIATE Beth Smith, CUSTOMER CONTACT SALES ASSOCIATE Cardiology Consult Patient Name: Judi Adam Provider: MEAGHAN Stout : 1945 Date of Service: 07/27/2023 CHIEF COMPLAINT: Dizziness HISTORY: 77 y.o. male with a history of thoracic aortic aneurysm status post root replacement on 07/10/[address] Lynn, he was discharged home on 07/14, history of hypertension and sleep apnea on CPAP whopresented to the emergency room today following a syncopal episode. Cardiology was consulted for new onset atrial fibrillation. He reports about 5 days after being home following his surgery he began to experience black stools for several days. He also endorses shortness of breath, cough, and lightheadedness. This morning around 1:00 a.m. he got up to use the restroom, felt lightheaded and fainted. His was able to get him back up and this happened again later in the morning where he hit his head on the floor. EMS wascalled and he was brought to the ED for evaluation. EKG demonstrated atrial fibrillation with rapid ventricular response rate 122 bpm, appears to be inmore of a normal sinus rhythm on telemetry, will repeat EKG. Hemoglobin 5.5, receiving 2 units PRBC. Potassium 4.6, creatinine 0.85, high sensitive troponin T normal at 20, 21. TSH 1.48, magnesium 2.6. Chest CT showed small right pleural effusion, no organized fluid collection or dehiscence of surgical site. Patient follows with pen tester, Dr. Reddy. Echocardiogram on 06/21/2023 demonstrated normal LV function, EF 60%, mild , severe ascending aortic enlargement, 5.1 cm. Pre-surgery catheterization on 06/28 showed no CAD. He is resting comfortably on room air. Denying any complaints of chest pain or discomfort. Was taking Tylenol p.r.n. for incision pain at home, no NSAIDs. He is independent with his ADLs and was veryactive prior to his surgery. He did hold his metoprolol as he thought maybe this was contributing to his lightheadedness. ALLERGY: Patient has no known allergies. MEDICATIONS Aspirin 81 mg daily Atorvastatin 40 mg daily Metoprolol 25 mg twice daily PAST MEDICAL HISTORY Past Medical History: Diagnosis Date Arthritis Arthritis; Comments: [facility] 10/19/2015 - HX OTHER MEDICAL ascending aortic aneurysm; Comments: [facility] 10/19/2015 - Hypertension Hypertension Sleep apnea Sleep apnea FAMILY HISTORY Family History Problem Relation Age of Onset Hypertension Mother Hypertension; Hypertension Father Hypertension; Coronary artery disease Other Family history of Coronary artery disease; SOCIAL HISTORY reports that he has never smoked. He has never used smokeless tobacco. He reports that he does not use drugs. Patient reports consuming alcoholic drinks , with a daily consumption of drinks. Patient also reports less than monthly consumption of 6 or more alcoholic drinks at one occasion. ROS General: Denies any weight loss, weight gain, fever or chills HEENT: Positive for lightheadedness, syncope. Denies any blurred vision, change in vision or hearing loss. Cardiovascular: Denies any chest pain, discomfort. Denies any PND or orthopnea. Respiratory: Positive for SOB, CHING, cough. Denies any hemoptysis. Gastrointestinal: Denies any diarrhea, constipation, or hematochezia. Gu: Denies any hematuria or dysuria. Neurological: Denies any TIA, CVA's, or change in cognitive function. Musculoskeletal: Denies any claudication or myalgia's. Endocrine: Denies any sensitivity to heat or cold. Psychiatric: Denies any depression or anxiety. Hematological: Denies any evidence of bleeding or bruising. PHYSICAL EXAM: Vitals: 07/27/23 1205 07/27/23 1230 07/27/23 1300 07/27/23 1315 BP: 117/86 122/61 106/70 129/58 BP Location: Patient Position: Pulse: 110 105 111 113 Resp: (!) 34 22 28 28 Temp: 36.9 ??C (98.5 ??F) TempSrc: SpO2: 100% 100% 97% 100% Weight: Height: Intake/Output Summary (Last 24 hours) at 07/27/2023 1422 Last data filed at 07/27/2023 1356 Gross per 24 hour Intake 1155 ml Output -- Net 1155 ml General: Well appearing, No pain or distress, well nourished Eyes: SYBIL/EOMI, Conjuctiva Clear ENT: External ears/nose normal Neck: Supple Respiratory: Bilateral bases; respirations nonlabored Cardiovascular: Tachycardic, normal S1 and S2. No S3 or S4. No murmurs or rubs. Carotid upstrokes brisk bilaterally and without bruits. Gastrointestinal: soft, non-tender abdomen Extremities: no cyanosis or clubbing or edema Musculoskeletal: no obvious joint deformities Skin: no obvious rash or bruising. Sternal incision clean, dry, intact. Psychiatric: normal affect Neurologic: awake/alert, no focal deficits Lab/Radiology/Diagnostic Review: Recent Results (from the past 24 hour(s)) CBC with auto differential Collection Time: 07/27/23 8:21 AM Result Value Ref Range WBC 8.7 3.8 - 9.9 K/cumm Hgb 5.5 (Critical) 13.0 - 17.5 g/dL Hct 17.6 (L) 38.9 - 50.3 % Plt 315 150 - 400 K/cumm MPV 9.1 9.1 - 12.3 fL RBC 1.73 (L) 4.30 - 5.80 M/cumm MCV 101.7 (H) 81.3 - 96.4 fL MCH 31.8 27.1 - 33.3 pg MCHC 31.3 (L) 32.3 - 35.7 g/dL RDW CV 14.9 11.1 - 14.9 % RDW SD 50.2 (H) 35.7 - 48.1 fL NRBC abs 0.11 (H) 0.00 - 0.01 K/cumm Comprehensive metabolic panel Collection Time: 07/27/23 8:21 AM Result Value Ref Range Sodium 138 135 - 145 mmol/L Potassium, pl 4.6 3.3 - 4.9 mmol/L Chloride 105 97 - 110 mmol/L CO2 19 (L) 22 - 32 mmol/L Anion gap 14 2 - 15 mmol/L BUN 33 (H) 6 - 25 mg/dL Creatinine 0.85 0.80 - 1.30 mg/dL Glucose 136 70 - 199 mg/dL Calcium 8.5 8.5 - 10.3 mg/dL Bilirubin, total 0.5 0.1 - 1.2 mg/dL Protein, pl 5.8 (L) 6.5 - 8.5 g/dL Albumin 3.1 (L) 3.5 - 5.0 g/dL Alk phos 61 40 - 130 Units/L ALT 31 7 - 55 Units/L AST 46 10 - 50 Units/L Differential, auto Collection Time: 07/27/23 8:21 AM Result Value Ref Range Neutrophil abs 6.8 (H) 1.7 - 6.5 K/cumm Imm gran abs 0.1 0.0 - 0.1 K/cumm Lymphocyte abs 1.0 0.8 - 3.3 K/cumm Monocyte abs 0.7 0.2 - 0.8 K/cumm Eosinophil abs 0.0 0.0 - 0.5 K/cumm Basophil abs 0.0 0.0 - 0.1 K/cumm Neutrophil pct 79.0 % Imm gran pct 0.9 % Lymphocyte pct 11.8 % Monocyte pct 7.8 % Eosinophil pct 0.2 % Basophil pct 0.3 % eGFR Collection Time: 07/27/23 8:21 AM Result Value Ref Range eGFR 90 mL/min/1.73 m2 Prepare RBC: 2 Units Collection Time: 07/27/23 8:41 AM Result Value Ref Range Product code R0943H50 Unit Number [id number] Product Blood Type OPOS Dispense Status ISSUED Product code [id number] Unit Number [id number] Product Blood Type OPOS Dispense Status ISSUED Type and screen Collection Time: 07/27/23 9:14 AM Result Value Ref Range Chacorta, indirect Negative ABO Rh O Positive Troponin T high-sensitivity series (baseline, 2hr, 4hr, 6hr) Collection Time: 07/27/23 9:14 AM Result Value Ref Range Trop T hs 20 <=22 ng/L Vitamin B12 Collection Time: 07/27/23 9:14 AM Result Value Ref Range Vitamin B12 388 230 - 1,250 pg/mL Magnesium Collection Time: 07/27/23 9:14 AM Result Value Ref Range Magnesium 2.6 (H) 1.4 - 2.5 mg/dL Phosphorus Collection Time: 07/27/23 9:14 AM Result Value Ref Range Phosphorus, pl 2.9 2.3 - 4.5 mg/dL TSH reflex to free T4 Collection Time: 07/27/23 9:14 AM Result Value Ref Range TSH 1.48 0.30 - 4.20 mcIUnit/mL Iron profile - Add on lab test Collection Time: 07/27/23 9:14 AM Result Value Ref Range Acceptable Yes Vitamin B12 - Add on lab test Collection Time: 07/27/23 9:14 AM Result Value Ref Range Acceptable Yes Folate - Add on lab test Collection Time: 07/27/23 9:14 AM Result Value Ref Range Acceptable Yes Troponin T high-sensitivity 2-hour Collection Time: 07/27/23 12:05 PM Result Value Ref Range Trop T hs 21 <=22 ng/L Trop T hs delta 1 ng/L Trop T hs interp Insignificant CBC without differential Collection Time: 07/27/23 12:05 PM Result Value Ref Range WBC 8.0 3.8 - 9.9 K/cumm Hgb 5.7 (Critical) 13.0 - 17.5 g/dL Hct 18.4 (L) 38.9 - 50.3 % Plt 270 150 - 400 K/cumm MPV 9.0 (L) 9.1 - 12.3 fL RBC 1.78 (L) 4.30 - 5.80 M/cumm MCV 103.4 (H) 81.3 - 96.4 fL MCH 32.0 27.1 - 33.3 pg MCHC 31.0 (L) 32.3 - 35.7 g/dL RDW CV 15.3 (H) 11.1 - 14.9 % RDW SD 52.0 (H) 35.7 - 48.1 fL NRBC abs 0.11 (H) 0.00 - 0.01 K/cumm Protime-INR Collection Time: 07/27/23 12:05 PM Result Value Ref Range PT 13.9 (H) 10.3 - 13.7 sec INR 1.22 (H) 0.90 - 1.20 aPTT Collection Time: 07/27/23 12:05 PM Result Value Ref Range aPTT 26 (L) 28 - 38 sec CTA Chest Abdomen Pelvis Result Date: 07/27/2023 Postsurgical changes of aortic valve replacement and composite type ascending aorta repair with modified Bentall coronary artery reimplantation. There is no organized fluid collection or dehiscence of the surgical site. No CT explanation for chest pain. Dictated by: Jad Gross MD, PHD The radiology attending physician has personally reviewed this study, and had reviewed and/or editedthis written report and agrees with it. Electronically signed by: Reyes Vincent M.D. CT Head and Cervical Spine WO Contrast Result Date: 07/27/2023 No acute intracranial process. 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 CT angiography of the head may be considered for further evaluation. No evidence of acute fracture in the cervical spine. Electronically signed by: Evin Fowler MD Impression/Plan: 1. New onset atrial fibrillation with rapid ventricular response Does appear be in more of a sinus rhythm with PACs on telemetry, will repeat EKG now. Likely in setting of severe anemia. Not able to anticoagulate at this time with active GI bleed. Continue to monitor on telemetry and continue metoprolol as blood pressure allows. Will obtain updated echocardiogram. Will discuss further with Dr. Sims. 2. Syncope Likely in setting of severe anemia and active GI bleed. Will repeat echo. Continue to monitor on telemetry. 3. Anemia, GI bleed Hemoglobin 5.5, received 2 units PRBC. Reports several days of black stools, would recommend GI evaluation. 4. Ascending aortic aneurysm Status post tissue composite root replacement on 07/10/[address] showed no organized fluid collection or dehiscence of surgical site. CTS evaluated patient. 5. Dyspnea Does endorse shortness of breath and cough. Does have small right pleural effusion on CT scan. Willadd on NT-proBNP, may need dose of diuretic but with off blood pressure will hold off for now. Consider chest x-ray in a.m.. 6. Hyperlipidemia On atorvastatin. This note was dictated with voice-recognition software, lumber planer errors may be present. Erin Monk NP Cosigned by Kilo Sims MD at 07/27/2023 6:07 PM CDT Associated attestation - Kilo Sims MD - 07/27/2023 6:07 PM CDT I have reviewed the patient and clinical findings with the nurse practitioner and agree with the plan as stated. Additional comments are as follows: Pt of Dr. Reddy 77 y.o. male with a history of thoracic aortic aneurysm status post root replacement on 07/10/[address] Lynn, he was discharged home on 07/14, history of hypertension and sleep apnea on CPAP whopresented to the emergency room today following a syncopal episode. Cardiology was consulted for possible new onset atrial fibrillation. Having black stools for the last few days. EKG demonstrated atrial fibrillation with rapid ventricular response rate 122 bpm, appears to be inmore of a normal sinus rhythm on telemetry, will repeat EKG. Hemoglobin 5.5, receiving 2 units PRBC. Potassium 4.6, creatinine 0.85, high sensitive troponin T normal at 20, 21. TSH 1.48, magnesium 2.6. Chest CT showed small right pleural effusion, no organized fluid collection or dehiscence of surgical site. Echocardiogram on 06/21/2023 demonstrated normal LV function, EF 60%, mild , severe ascending aortic enlargement, 5.1 cm. Pre-surgery catheterization on 06/28 showed no CAD. General: Well appearing, No pain or distress, well nourished Respiratory: Clear, respirations nonlabored Cardiovascular: Tachycardic, normal S1 and S2. No S3 or S4. No murmurs or rubs. Gastrointestinal: soft, non-tender abdomen Extremities: no cyanosis or clubbing or edema Atrial Flutter Reviewed EKG--looks like atypical flutter. Active GI bleed, no anticoagulation for now. Will consider starting anticoagulation vs ?Watchman as outpatient as appropriate. He is back in sinus rhythm now. Continue metoprolol 25 bid. TTE ordered, will review when available. Syncope Likely related to GI bleed, severe anemia. TTE ordered. GI bleed Hgb 5.5 initially, 2u PRBC ordered. Dr. Brantley planning upper endoscopy tomorrow. Ascending aortic aneurysm Status post tissue composite root replacement on 07/10/[address] Lynn. Dyspnea Likely multifactorial, will continue to monitor for improvement Hyperlipidemia On atorvastatin documented in this encounter ED Notes * Lew Garcia MD - 07/27/2023 8:10 AM CDT HPI Chief Complaint Patient presents with Dizziness HPI 77-year-old male history of hypertension, MONIKA, thrombocytopenia, hyponatremia, ascending aortic aneurysm with recent aortic procedure presenting with a chief complaint of lightheadedness. Patient hashad several days of worsening generalized fatigue/aches as well as lightheadedness that occurred while standing. Worse over the last 24 hours especially when the patient gets up to use the bathroom. Patient had a syncope episode last night where his slid down his bed while getting up to use the restroom and then again this morning had a full syncopal episode refill and hit the back of his head. Other than the lightheadedness with standing the patient denies new symptoms including chest pain, diaphoresis, nausea, vomiting, abdominal pain, back pain, urinary symptoms. Review of systems otherwise negative as noted above. Of note, patient has been taking metoprolol but was told to stop his dose last night given his lightheadedness over the last several days. His last dose of metoprolol was 2 days ago. Patient History: Patient Active Problem List Diagnosis Date Noted Aneurysm of ascending aorta without rupture (HCC) [...] (HCC) 10/19/2015 Past Medical History: Diagnosis Date Arthritis Arthritis; Comments: [facility] 10/19/2015 - HX OTHER MEDICAL ascending aortic aneurysm; Comments: [facility] 10/19/2015 - Hypertension Hypertension Sleep apnea Sleep apnea No past surgical history on file. Family History Problem Relation Age of Onset Hypertension Mother Hypertension; Hypertension Father Hypertension; Coronary artery disease Other Family history of Coronary artery disease; Social History Tobacco Use Smoking status: Never Smokeless tobacco: Never Substance and Sexual Activity Alcohol use: Yes Comment: Socially Drug use: No Sexual activity: Not on file Social History Social History Narrative Not on file Review of Systems Review of Systems All other systems reviewed and are negative. Physical Exam ED Triage Vitals Temp Pulse Resp BP SpO2 07/27/2375707/27/2375707/27/2375707/27/2375707/27/23757 36.6 ??C (97.9 ??F) 121 16 93/67 100 % Temp src Heart Rate Source Patient Position BP Location FiO2 (%) 07/27/23757 -- -- -- -- Oral Height Height Method Weight Weight Method 07/27/23753 -- 07/27/2375307/27/23753 1.829 m (6') 108.9 kg (240 lb) Standing scale Physical Exam Vitals and nursing note reviewed. Constitutional: General: He is not in acute distress. Appearance: Normal appearance. He is not ill-appearing, toxic-appearing or diaphoretic. HENT: Head: Normocephalic. Right Ear: External ear normal. Left Ear: External ear normal. Nose: No congestion or rhinorrhea. Mouth/Throat: Mouth: Mucous membranes are dry. Eyes: General: No scleral icterus. Right eye: No discharge. Left eye: No discharge. Extraocular Movements: Extraocular movements intact. Conjunctiva/sclera: Conjunctivae normal. Pupils: Pupils are equal, round, and reactive to light. Cardiovascular: Rate and Rhythm: Tachycardia present. Rhythm irregular. Pulses: Normal pulses. Heart sounds: Normal heart sounds. No murmur heard. No friction rub. No gallop. Comments: Substernal scar linear covered with wound dressing but is clear dry and intact with no discharge from the wound and no tenderness surrounding. No crepitus. Pulmonary: Effort: Pulmonary effort is normal. No respiratory distress. Abdominal: General: Abdomen is flat. There is no distension. Tenderness: There is no abdominal tenderness. Musculoskeletal: Cervical back: Normal range of motion. No rigidity. Right lower leg: No edema. Left lower leg: No edema. Skin: General: Skin is warm. Capillary Refill: Capillary refill takes less than 2 seconds. Coloration: Skin is not jaundiced or pale. Findings: No bruising, erythema, lesion or rash. Neurological: General: No focal deficit present. Mental Status: He is alert and oriented to person, place, and time. Cranial Nerves: No cranial nerve deficit. Sensory: No sensory deficit. Motor: No weakness. Psychiatric: Mood and Affect: Mood normal. Behavior: Behavior normal. Thought Content: Thought content normal. Judgment: Judgment normal. MDM Medical Decision Making 77-year-old male recent surgery for ascending aortic aneurysm who is on metoprolol but does not state a prior history of atrial fibrillation presenting with 2 episodes of syncope after standing and walking here in what appears to be new onset AFib with RVR. Of note, patient has also had poor p.o. intake over the last couple of days and reports getting a COVID and flu shot several days ago as well. Differential and plan: Multiple potential causes of this patient's symptoms. Suspect AFib is the likely culprit likely secondary to his recent surgery causing irritation. Poor p.o. intake/mild dehydration or electrolyte derangements could certainly be a cause as well as the recent vaccinations side effects. Can not immediately rule out any concerning complications from procedure as well and given the fall will evaluatewith CT head, C-spine as well as chest abdomen pelvis with arterial contrast. EKGs or any known above does not show obvious signs of ischemia but will obtain serial troponins. Will also obtain CBC, TSH although my concern for thyroid etiologies is lower on the differential. Will give some gentle fluids at this time given the patient's heart rate is in the upper 90s/low 100s do not feel it is pertinent for rhythm control at this time. However, if patient has worsening heart rate or no other obvious reversible cause identified will consider rhythm control. Will anticipate need for admission. Holding off on anticoagulation now given this patient's recent surgery. Amount and/or Complexity of Data Reviewed Labs: ordered. Decision-making details documented in ED Course. Radiology: ordered. ECG/medicine tests: ordered. Risk Prescription drug management. Decision regarding hospitalization. ED Course as of 07/27/23 1211 Time: 07/27 812 Comment: I have evaluated this patient's EKG. It is AFib with a rate of 122 without concerning QRS,ST or T-wave changes to suggest acute ischemia. By: Lew Garcia MD Time: 07/27 812 Comment: Compared to the most recent EKG he was in sinus rhythm. By: Lew Garcia MD Time: 07/27 813 Value: Pulse: 121 Comment: (Reviewed) By: Lew Garcia MD Time: 07/27 836 Value: Hgb(!!): 5.5 Comment: (Reviewed) By: Lew Garcia MD Time: 07/27 836 Value: MCV(!): 101.7 Comment: (Reviewed) By: Lew Garcia MD Time: 07/27 840 Comment: Obtain verbal consent for transfusion of 2 units packed red blood cells By: Lew Garcia MD Time: 07/27 958 Comment: No gross changes to this patient who has not yet received his blood products. By: Lew Garcia MD Time: 07/27 1211 Comment: Repeat H&H pending. By: Lew Garcia MD Final diagnoses: None Lew Garcia MD 07/27/23 1617 * Rima Petty RN - 07/27/2023 7:52 AM CDT Pt presents to the ED via EMS from home due to a fall from dizziness/lightheaded today. Pt states dizziness started yesterday and had a covid/flu shot two days prior. EMS found pt to be in afib 120. Pt has hx afib and AAA repair 07/10. Pt states this morning he felt lightheaded and slid down from the bed today, denies hitting head. Pt called the triage line yesterday and took or didn't take a certain medication due to lightheadedness, poor historian. * Colette Frazier RN - 07/27/2023 7:52 AM CDT Bed: ED05 Expected date: Expected time: Means of arrival: Comments: EMS 2040 Colette Frazier RN 07/27/23 0752 documented in this encounter Miscellaneous Notes * Plan of Care - Rebecca Peterson - 07/31/2023 3:31 PM CDT [facility] received a consult. Per LUIS Mcgee Patient will be using [facility]. [facility] consult closedand no services set up at this time. * Plan of Care - Carlyn Ruiz RN - 07/31/2023 3:12 PM CDT CM received updates from Luisa Rosas that they will accept Mr Adam back for [facility] at discharge. * Plan of Care - Phoebe Collazo RN - 07/31/2023 2:20 PM CDT Goals: Clinical Goals for the Shift: MONITOR LABS, VS, TELE, SAFETY, COMFORT. Summary: VSS. SR/ST, NO C/O PAIN, NO BLOOD THINNERS DUE TO ADVERSE EFFECTS. UNABLE TO FIND LAUREEN FLANAGAN FIT PATIENT. ADVISED PATIENT TO GO ONLINE AND GET XXX LARGE. ENCOURAGED WALKING/ PEDAL PUMPS TO PREVENT BLOOD CLOTS. POSSIBLE WATCHMAN PLACEMENT IN THE FUTURE. REVIEWED D/C INSTRUCTIONS. UNDERSTANDING VERBALIZED. PATIENT TO F/U WITH DOCTORS DIRECTED. * Plan of Care - Carlyn Ruiz RN - 07/31/2023 12:24 PM CDT CM received [facility] order and resent it to Taylor who was following with him prior to admission. Careteam updated * [facility] Note - Carlyn Ruiz RN - 07/31/2023 12:19 PM CDT Patient Information: Referral Order Details (96h ago through 96h from now) Ordered Start 07/31/23 1133 Ambulatory referral to Home Health Electronically Signed By: Jonn Willis MD Question Answer Comment Service Line Home Health Primary disciplines requested: Residential Primary disciplines requested: Physical Therapy Secondary disciplines requested: Occupational Therapy Home Health Services Disease and Medication Management Home Health Services Therapy to Eval/Tx Therapy instructions: ADL/ ladl management Therapy instructions: Evaluation/treatment Requested Start of Care Date: 24-48 hours Physician to follow patient's care (the person listed here will be responsible for signing ongoing orders): Referring Provider I attest that I or another qualified licensed provider saw the patient 90 days prior to or 30 days post admission and this face to face encounter meets the necessary Home Health requirements. The face to face encounter occurred on (date): 07/31/2023 The encounter with the patient was in whole, or in part, for the following medical condition, whichis the primary reason for home health care. (List medical condition): Resume home health I certify that, based on my findings, the following services are medically necessary skilled home health services: Therapy to Eval/Tx Clinical findings that support the need for home care: Medical condition requiring skilled assessment/education Clinical findings that support the need for home care: Wound requiring care, assessment, and instruction I certify that my clinical findings support patient's homebound status. Homebound criteria met because: Poor endurance I certify that my clinical findings support patient's homebound status. Homebound criteria met because: Requires assistance of another to leave home safely I certify that my clinical findings support patient's homebound status. Homebound criteria met because: Pain and impaired mobility post-op 07/31/23 0000 * Plan of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 us Mandi Simpson MD LAB BLOOD ORDERABLES Final Resul t Performing Organization Address [facility] de Phone Number [facility] [address] [place] [address] * POCT H. pylori (Clotest) (07/29/2023 8:50 AM CDT) Pathologist [facility] H Pylori, POC Negative Negative QC Negative conf by Urease Yes Lot Number [id number] Tissue 07/29/2023 8:50 AM CDT us Pedro Luis Brantley DO POINT OF CARE TEST ORDERABLES Final Result * eGFR (07/29/2023 2:57 AM CDT) Pathologist [facility] eGFR 90 mL/min/1. 73 m2 Comment: Interpretive Data Reference Interval Normal ?>/= 90 mL/min/1.73m2 Mildly decreased* ? 60 - 89 mL/min/1.73m2 Mildly to moderately decreased ?45 - 59 mL/min/1.73m2 Moderately to severely decreased ??30 - 44 mL/min/1.73m2 Severely decreased ?15 - 29 mL/min/1.73m2 Kidney Failure ?< 15 ??mL/min/1.73m2 *Relative to young adult level Estimated glomerular filtration rate is determined by the 2020 CKD-EPI equation recommended by the National Kidney Foundation (A Unifying Approach to GFR Estimation: Recommendations of the NKF-ASK Task Force on Reassessing the Inclusion of Race in Diagnosing Kidney Disease, JASN 2020). The CKD-EPI equation should not be used for patients with unstable renal function and has not been validated in children and those over 70. Current interpretive data was last reviewed 2021. Blood 07/29/2023 2:57 AM CDT 07/29/2023 4:05 AM CDT us Pedro Luis Brantley DO LAB BLOOD ORDERABLES Final Res ult [facility] [address] Department [place] [address] * (ABNORMAL) Basic metabolic panel (07/29/2023 2:57 AM CDT) Sodium 137 135 - 145 mmol/L Potassium, pl 3.5 3.3 - 4.9 mmol/L [facility] Chloride 106 97 - 110 mmol/L [facility] CO2 24 22 - 32 mmol/L [facility] Anion gap 7 2 - 15 mmol/L [facility] BUN 16 6 - 25 mg/dL [facility] Creatinine 0.84 0.80 - 1.30 mg/dL [facility] Glucose 92 70 - 199 mg/dL [facility] Comment: Interpretive Data Fasting glucose >/= 126 mg/dl is diagnostic for diabetes. ?? Fasting is defined as no caloric intake for at least 8 hours. Fasting glucose between 100 mg/dl to 125 mg/dl is diagnostic of prediabetes. In a patient with classic symptoms of hyperglycemia or hyperglycemic crisis, a random glucose >/= 200 mg/dl is diagnostic for diabetes. In the absence of unequivocal hyperglycemia, results should be confirmed by repeat testing. The classification and Diagnosis of Diabetes Diabetes Care 202; 46: S19-S40. Current interpretive data was last revised 2022. Calcium 7.9(L) 8.5 - 10.3 mg/dL [facility] Blood 07/29/2023 2:57 AM CDT 07/29/2023 4:05 AM CDT us Pedro Luis Brantley DO LAB BLOOD ORDERABLES Final Res ult [facility] [address] [place] [address] * (ABNORMAL) CBC without differential (07/29/2023 2:57 AM CDT) WBC 6.2 3.8 - 9.9 K/cumm Hgb 7.1(L) 13.0 - 17.5 g/dL [facility] Comment: Interpretive Data A reference range for this assay has not been established for patients with an unknown legal sex. Please refer to the laboratory test catalog for established sex-specific reference intervals. Current interpretive data was last revised on 2023. Hct 22.5(L) 38.9 - 50.3 % [facility] Comment: Interpretive Data A reference range for this assay has not been established for patients with an unknown legal sex. Please refer to the laboratory test catalog for established sex-specific reference intervals. Current interpretive data was last revised on 2023. Plt 188 150 - 400 K/cumm [facility] MPV 8.8(L) 9.1 - 12.3 fL [facility] RBC 2.34(L) 4.30 - 5.80 M/cumm [facility] Comment: Interpretive Data A reference range for this assay has not been established for patients with an unknown legal sex. Please refer to the laboratory test catalog for established sex-specific reference intervals. Current interpretive data was last revised on 2023. MCV 96.2 81.3 - 96.4 fL [facility] MCH 30.3 27.1 - 33.3 pg [facility] MCHC 31.6(L) 32.3 - 35.7 g/dL [facility] RDW CV 17.6(H) 11.1 - 14.9 % [facility] RDW SD 51.5(H) 35.7 - 48.1 fL [facility] NRBC abs 0.13(H) 0.00 - 0.01 K/cumm [facility] Blood 07/29/2023 2:57 AM CDT 07/29/2023 4:05 AM CDT Pedro Luis Brantley DO LAB BLOOD ORDERABLES Final Res ult [facility] [address] [place] [address] * (ABNORMAL) Hemoglobin and hematocrit (07/28/2023 6:38 PM CDT) [facility] Hgb 7.6(L) 13.0 - 17.5 g/dL Comment: Interpretive Data A reference range for this assay has not been established for patients with an unknown legal sex. Please refer to the laboratory test catalog for established sex-specific reference intervals. Current interpretive data was last revised on 2023. Hct 23.6(L) 38.9 - 50.3 % [facility] Comment: Interpretive Data A reference range for this assay has not been established for patients with an unknown legal sex. Please refer to the laboratory test catalog for established sex-specific reference intervals. Current interpretive data was last revised on 2023. 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 ??Again there is no saccular component or aneurysm neck. ??There is diffuse vascular ectasia otherwise. Electronically signed by: MARCELL BADILLO Impressions 07/28/2023 3:59 PM CDT Generalized arterial vascular ectasia without significant atherosclerotic disease and without occlusive disease. 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 ??No neck is seen and there are no true saccular aneurysms identified. Electronically signed by: MARCELL BADILLO Narrative 07/28/2023 3:59 PM CDT CTA head and neck HISTORY: Carotid artery aneurysm COMPARISON: CT head and cervical spine 07/27/2023 FINDINGS: Axial scans of the head were repeated with reconstructions generated. ??There is no evidence of interval intracranial hemorrhage. There is nothing to suggest evolving infarction. ??There is no change in ventricular size or configuration and there is otherwise no extra-axial collection. ??A contrast enhanced helical axial acquisition was then obtained from the thoracic inlet to the vertex and with 2-D MIP arterial vascular reconstructions immediately available. 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 ??There is no evidence of a significant thrombotic component. ??There is no well-defined neck. ??There is otherwise no true saccular aneurysm. ??The cervical vertebral arteries are tortuous and there is somewhat medial course on the right but no atherosclerotic disease or luminal compromise is seen. ??The vertebral arteries are also slightly prominent with a left dominant. ??Both vessels are patent the vertebrobasilar junction and basilar is seen to its summit and again with mild distal ectasia but no definitive true aneurysm identified. ??There is no early pathologic brain enhancement. ??No other acute abnormality is seen. Procedure Note Marcell Badillo MD - 07/28/2023 CTA head and neck HISTORY: Carotid artery aneurysm COMPARISON: CT head and cervical spine 07/27/2023 FINDINGS: Axial scans of the head were repeated with reconstructions generated. There is no evidence of interval intracranial hemorrhage. There is nothing to suggest evolving infarction. There is no change in ventricular size or configuration and there is otherwise no extra-axial collection. A contrast enhanced helical axial acquisition was then obtained from the thoracic inlet to the vertex and with 2-D MIP arterial vascular reconstructions immediately available. 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 There is no evidence of a significant thrombotic component. There is no well-defined neck. There is otherwise no true saccular aneurysm. The cervical vertebral arteries are tortuous and there is somewhat medial course on the right but no atherosclerotic disease or luminal compromise is seen. The vertebral arteries are also slightly prominent with a left dominant. Both vessels are patent the vertebrobasilar junction and basilar is seen to its summit and again with mild distal ectasia but no definitive true aneurysm identified. There is no early pathologic brain enhancement. No other acute abnormality is seen. IMPRESSION: Generalized arterial vascular ectasia without significant atherosclerotic disease and without occlusive disease. 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 No neck is seen and there are no true saccular aneurysms identified. Electronically signed by: MARCELL BADILLO us Chaim BERGER CT PROCEDURES Edit ed Result - Final * EGD (07/28/2023 8:27 AM CDT) Anatomical Region Laterality Modality Other Narrative Procedure Note Pedro Luis Brantley, DO - 07/28/2023 8:27 AM CDT ENDOSCOPY LAB Patient Name: Judi Adam Procedure Date: 07/28/2023 8:27 AM Admit Type: Inpatient Room: [facility] 3 Date of : 1945 Instrument Name: [id number] Gender: Male Note Status: Finalized Procedure: Upper GI endoscopy Indications: Acute post hemorrhagic anemia Providers: Pedro Luis Brantley D.O. Referring MD: Medicines: Propofol per Anesthesia Complications: No immediate complications. Estimated Blood Loss: Estimated blood loss: none. Procedure: Pre-Anesthesia Assessment: - Prior to the procedure, a History and Physicalwas performed, and patient medications and allergieswere reviewed. The patient is competent. The risks and benefits of the procedure and the sedation optionsand risks were discussed with the patient. Allquestions were answered and informed consent was obtained. Patient identification and proposed procedure were verified by the physician in the pre-procedurearea. Mental Status Examination: alert and oriented.Airway Examination: normal oropharyngeal airway and neck mobility. Respiratory Examination: clear to auscultation. CV Examination: normal. Prophylactic Antibiotics: The patient does not requireprophylactic antibiotics. Prior Anticoagulants: The patient has taken no anticoagulant or antiplatelet agents. ASA Grade Assessment: III - A patient with severesystemic disease. After reviewing the risks and benefits,the patient was deemed in satisfactory condition to undergo the procedure. The anesthesia plan was touse monitored anesthesia care (MAC). Immediately priorto administration of medications, the patient was re-assessed for adequacy to receive sedatives. The heart rate, respiratory rate, oxygen saturations, blood pressure, adequacy of pulmonary ventilation,and response to care were monitored throughout the procedure. The physical status of the patient was re-assessed after the procedure. The benefits, risks, and alternatives to theprocedure and sedation were discussed and informed consentwas obtained. The scope was passed under direct vision. The Endoscope was introduced through the mouth, and advanced to the second part of duodenum. The upperGI endoscopy was accomplished without difficulty. The patient tolerated the procedure well. Findings: The second portion of the duodenum was normal. One non-bleeding superficial duodenal ulcer with a flat pigmentedspot (Mak Class IIc) was found in the duodenal bulb. The lesion was 8mm in largest dimension. For hemostasis, one hemostatic clip was successfully placed. 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 There wasno bleeding during, or at the end, of the procedure. The entire examined stomach was normal. Biopsies were taken with acold forceps for Helicobacter pylori testing using CLOtest. The esophagus was normal. Impression: - Normal second portion of the duodenum. - Non-bleeding duodenal ulcer with a flat pigmented spot (Mak Class IIc). Clip was placed. 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 - Normal stomach. Biopsied. - Normal esophagus. - Gastric ulcer(s) were not seen. - A malignant-appearing gastric tumor was notseen. - The examination was otherwise normal. Recommendation: - Await pathology results. - The patient was transfered to the floor in stable condition. - NO active or stigmata of recent gastrointestinal hemorrhage is seen. - Monitor H/H and transfuse as needed. - Resume Xarelto (rivaroxaban) at prior dose in 3days. Attending Participation: I personally performed the entire procedure. Electronically signed by Pedro Luis Brantley D.O. Pedro Luis Brantley D.O. 07/28/2023 8:56:36 AM Number of Addenda: 0 Note Initiated On: 07/28/2023 8:27 AM us Pedro Luis Brantley DO ENDOSCOPY PROCEDURES Final Res ult * eGFR (07/28/2023 6:29 AM CDT) eGFR 91 mL/min/1. 73 m2 Comment: Interpretive Data Reference Interval Normal ?>/= 90 mL/min/1.73m2 Mildly decreased* ? 60 - 89 mL/min/1.73m2 Mildly to moderately decreased ?45 - 59 mL/min/1.73m2 Moderately to severely decreased ??30 - 44 mL/min/1.73m2 Severely decreased ?15 - 29 mL/min/1.73m2 Kidney Failure ?< 15 ??mL/min/1.73m2 *Relative to young adult level Estimated glomerular filtration rate is determined by the 2020 CKD-EPI equation recommended by the National Kidney Foundation (A Unifying Approach to GFR Estimation: Recommendations of the NKF-ASK Task Force on Reassessing the Inclusion of Race in Diagnosing Kidney Disease, JASN 202). The CKD-EPI equation should not be used for patients with unstable renal function and has not been validated in children and those over 70. Current interpretive data was last reviewed 2021. Blood 07/28/2023 6:29 AM CDT 07/28/2023 6:56 AM CDT us Parish Sarkar LAB BLOOD ORDERABLES F inal Result [facility] [address] Department [place] [address] * (ABNORMAL) Basic metabolic panel (07/28/2023 6:29 AM CDT) Pathologist [facility] Sodium 138 135 - 145 mmol/L Potassium, pl 3.9 3.3 - 4.9 mmol/L [facility] Chloride 108 97 - 110 mmol/L [facility] CO2 20(L) 22 - 32 mmol/L [facility] Anion gap 10 2 - 15 mmol/L [facility] BUN 29(H) 6 - 25 mg/dL [facility] Creatinine 0.80 0.80 - 1.30 mg/dL [facility] Glucose 105 70 - 199 mg/dL [facility] Comment: Interpretive Data Fasting glucose >/= 126 mg/dl is diagnostic for diabetes. ?? Fasting is defined as no caloric intake for at least 8 hours. Fasting glucose between 100 mg/dl to 125 mg/dl is diagnostic of prediabetes. In a patient with classic symptoms of hyperglycemia or hyperglycemic crisis, a random glucose >/= 200 mg/dl is diagnostic for diabetes. In the absence of unequivocal hyperglycemia, results should be confirmed by repeat testing. The classification and Diagnosis of Diabetes Diabetes Care 2021; 46: S19-S40. Current interpretive data was last revised 2022. Calcium 8.4(L) 8.5 - 10.3 mg/dL [facility] Blood 07/28/2023 6:29 AM CDT 07/28/2023 6:56 AM CDT us Pedro Luis Brantley DO LAB BLOOD ORDERABLES Final Res ult [facility] [address] Department [place] [address] * (ABNORMAL) CBC without differential (07/28/2023 6:29 AM CDT) [facility] WBC 7.8 3.8 - 9.9 K/cumm Hgb 7.4(L) 13.0 - 17.5 g/dL [facility] Comment: Interpretive Data A reference range for this assay has not been established for patients with an unknown legal sex. Please refer to the laboratory test catalog for established sex-specific reference intervals. Current interpretive data was last revised on 2023. Hct 22.7(L) 38.9 - 50.3 % [facility] Comment: Interpretive Data A reference range for this assay has not been established for patients with an unknown legal sex. Please refer to the laboratory test catalog for established sex-specific reference intervals. Current interpretive data was last revised on 2023. Plt 210 150 - 400 K/cumm [facility] MPV 9.0(L) 9.1 - 12.3 fL [facility] RBC 2.42(L) 4.30 - 5.80 M/cumm [facility] Comment: Interpretive Data A reference range for this assay has not been established for patients with an unknown legal sex. Please refer to the laboratory test catalog for established sex-specific reference intervals. Current interpretive data was last revised on 2023. MCV 93.8 81.3 - 96.4 fL [facility] Comment:MCV delta due to pos sible patient therapy. MCH 30.6 27.1 - 33.3 pg [facility] MCHC 32.6 32.3 - 35.7 g/dL [facility] RDW CV 15.4(H) 11.1 - 14.9 % [facility] RDW SD 49.2(H) 35.7 - 48.1 fL [facility] NRBC abs 0.17(H) 0.00 - 0.01 K/cumm [facility] Blood 07/28/2023 6:29 AM CDT 07/28/2023 6:56 AM CDT us Pedro Luis Brantley DO LAB BLOOD ORDERABLES Final Res ult [facility] [address] Department [place] [address] * Magnesium (07/28/2023 6:29 AM CDT) Magnesium 2.1 1.4 - 2.5 mg/dL Blood 07/28/2023 6:29 AM CDT 07/28/2023 6:56 AM CDT Ebenezer Rosa MD LAB BLOOD ORDERABLES Fin al Result [facility] [address] [facility] [place] [address] * Phosphorus (07/28/2023 6:29 AM CDT) Phosphorus, pl 2.5 2.3 - 4.5 mg/dL Blood 07/28/2023 6:29 AM CDT 07/28/2023 6:56 AM CDT Ebenezer Rosa MD LAB BLOOD ORDERABLES Fin al Result Performing Organization Address [facility] Co de Phone Number [facility] [address] [facility] [place] [address] * Transfuse RBC (07/28/2023 4:26 AM CDT) Blood Avril Douglas MD BLOOD TRANSFUSION ORDERABLES Final Result Performing Organization Address [facility]/ZIP Co de Phone Number [facility] [address] [place] [address] * Transfuse RBC: 1 Units (07/28/2023 4:26 AM CDT) Blood Avril Douglas MD BLOOD TRANSFUSION ORDERABLES Final Result * Prepare RBC: 1 Units (07/28/2023 2:05 AM CDT) Product code [id number] Unit Number [id number]- K [facility] Product Blood Type OPOS [facility] Dispense Status PRESUMED TRANSFUSED [facility] Blood 07/28/2023 2:05 AM CDT Narrative [facility] - 07/28/2023 10:15 PM CDT Are special requirements needed? (All products are leukoreduced and CMV- safe)- >No Date required:-[id number] LRRBC # of [id number] Reasons:-Hgb <7 g/dL} Avril Douglas MD BLOOD BANK PRODUCT ORDERABLES Final Result Performing Organization Address [facility]/ZIP Co de Phone Number [facility] [address] [facility] [place] [address] * Transfuse RBC (07/28/2023 12:32 AM CDT) Blood Result [facility] Pedro Luis Brantley DO BLOOD TRANSFUSION ORDERABLES F inal Result Performing Organization Address [facility] Co de Phone Number [facility] [address] [facility] [place] [address] * Transfuse RBC: 2 Units (07/28/2023 12:32 AM CDT) Blood Result [facility] Pedro Luis Brantley DO BLOOD TRANSFUSION ORDERABLES E dited Result - Final * (ABNORMAL) Hemoglobin and hematocrit (07/27/2023 11:24 PM CDT) [facility] Hgb 6.9(L) 13.0 - 17.5 g/dL Comment: Interpretive Data A reference range for this assay has not been established for patients with an unknown legal sex. Please refer to the laboratory test catalog for established sex-specific reference intervals. Current interpretive data was last revised on 2023. Hct 22.2(L) 38.9 - 50.3 % [facility] Blood 07/27/2023 11:2 4 PM CDT 07/28/2023 12:37 AM CDT Pedro Luis Brantley DO LAB BLOOD ORDERABLES Final Res ult Performing Organization Address [facility] Co de Phone Number [facility] [address] [facility] [place] [address] * Transfuse RBC (07/27/2023 7:49 PM CDT) Blood us Pedro Luis Brantley DO BLOOD TRANSFUSION ORDERABLES F inal Result Performing Organization Address [facility] Co de Phone Number [facility] [address] [place] [address] * Prepare RBC: 2 Units (07/27/2023 5:21 PM CDT) Product code [id number] [facility] Unit Number [id number]- R [facility] Product Blood Type OPOS [facility] Dispense Status PRESUMED TRANSFUSED [facility] Product code [id number] Unit Number [id number] D [facility] Product Blood Type OPOS [facility] Dispense Status PRESUMED TRANSFUSED [facility] Blood 07/27/2023 5:21 PM CDT Narrative [facility] - 07/28/2023 10:15 PM CDT Are special requirements needed? (All products are leukoreduced and CMV- safe)- >No Date required:-[id number] LRRBC # of [id number] Reasons:-Hgb <7 g/dL} us Ebenezer Rosa MD BLOOD BANK PRODUCT ORDER EMELYN Final Result Performing Organization Address [facility] Co de Phone Number [facility] [address] Department [employer] [place], [place] [id number] * TRANSTHORACIC ECHO (TTE) COMPLETE W DOPPLER/CF W CONTRAST (07/27/2023 5:07 PM CDT) Anatomical Region Laterality Modality Ultrasound 07/27/2023 3:42 PM CDT Narrative 07/28/2023 5:05 AM CDT [facility] [address] [address] ECHOCARDIOGRAM Patient Name: GAURAVJUDI L : 1945 Study Date: 07/27/2023 3:42:15 PM Gender: M Tech: Location: [id number] Ref.Provider: ERIN MONK Height(Cm): 183 BSA: 2.35 Weight(Kg): 108.9 BP: 108/60Order Provider: ERIN MONK - Procedures: Echocardiographic Report: Transthoracic Echocardiogram with 2D, M-Mode, Spectral and Color Flow Doppler examination and administration of intravenous contrast. Indications: Atrial fibrillation. Measurements: 2D/M Mode ?Doppler ? Measurement ?Value ?Normal Range ? Measurement ?Value ?Normal Range ? IVSd 2D ?1.87 ? [ 0.60 - 0.90 ] cm ? AV Peak Stan ?1.9 ?[ 1.0 - 1.7 ] m/s ? LVIDd 2D ? 5.30 ? [ 4.20 - 5.90 ] cm ? AV Peak PG ? 15 ? [ 2 - 9 ] mmHg ? LVIDs 2D ? 3.58 ? [ 2.30 - 3.90 ] cm ? AV Mean PG ? 9 ?[ 2 - 4 ] mmHg ? LVPWd 2D ? 1.68 ? [ 0.60 - 1.00 ] cm ? AV VTI ? 30.7 ? cm ? LA Dimension 2D ?3.75 ? [ 3.00 - 4.00 ] cm ? CATHI VTI ?2.2 ?[ 2.0 - 4.0 ] cm2 ? AoR Diam 2D ?2.68 ? [ 2.60 - 3.70 ] cm ? LVOT Peak Stan ?1.35 ? [ 0.70 - 1.10 ] m/s ? LA Volume Index ?32.95 ?[ 16.00 - 28.00 ] ml/m2 ?LVOT Diam ?2.0 ?[ 1.7 - 2.1 ] cm ? TAPSE ?1.99 ? [ 1.60 - 3.00 ] cm ? LVOT Peak PG ? 7 ?[ 2 - 6 ] mmHg ? LVOT VTI ? 21.9 ? [ 20.0 - 30.0 ] cm ? MV Peak PG ? 9 ?[ 1 - 10 ] mmHg ? MV Mean PG ? 3 ?[ <= 5 ] mmHg ? MV E Peak Stan ?1.2 ?[ 0.6 - 1.3 ] m/s ? MV A Peak Stan ?0.8 ?[ 1.0 - 1.2 ] m/s ? MV PHT ? 23.7 ? [ 20.0 - 100.0 ] ms ? MV Decel Time ?208.7 ?[ 104.0 - 258.0 ] ms ? MVA PHT ?9.3 ?[ 2.0 - 4.0 ] ms ? MV E/A Ratio ? 1.5 ? TR Peak Stan ?2.3 ?[ 1.0 - 2.8 ] m/s ? TR Peak PG ? 22 ? mmHg ? RVSP ? 36.6 ? [ 10.0 - 36.0 ] mmHg ? RA Pressure ?15.0 ? mmHg ? PV Peak Stan ?1.4 ?[ 0.4 - 0.8 ] m/s ? PV Peak PG ? 8 ?mmHg ? Lat E` Stan ? 0.20 ? [ 0.10 - 0.15 ] m/s ? Sept E' Stan ?0.11 ? [ 0.08 - 0.15 ] m/s ? E/E` ? 6.00 ? RV S' ?0.21 ? m/s ? - Findings: Study Quality: Technically difficult study. Contrast was employed for LV opacification and endocardial border enhancement. BP: Blood pressure: 108/60 mmHg. Left Ventricle: Normal global and regional left ventricular systolic function. Ejection Fraction is measured at (Simpsons) 63 %. Normal left ventricular cavity size. Moderate to marked concentric left ventricular hypertrophy. Right Ventricle: Normal right ventricular systolic function. Normal right ventricular size. Left Atrium: There is moderate enlargement of the left atrium. Right Atrium: The right atrium is normal in size. Atrial Septum: Normal appearing atrial septum. Mitral Valve: Normal appearance of the mitral valve leaflets. Mild mitral valve regurgitation. Aortic Valve: Grossly normal appearing aortic valve. There is no aortic stenosis. Tricuspid Valve: Normal appearance of the tricuspid leaflets. Mild tricuspid regurgitation. Normal right ventricular systolic pressure. Pulmonic Valve: The pulmonic valve is not seen. Pericardium: Normal appearing pericardial thickness. No significant pericardial effusion. Aortic Root and Aorta: Normal caliber aortic root. Aortic Arch: The aortic arch is poorly visualized. IVC: Dilated inferior vena cava with poor inspiratory collapse consistent with elevated right atrial pressure. Conclusions: 1. Normal global and regional left ventricular systolic function. Ejection Fraction is measured at (Simpsons) 63 %. Normal left ventricular cavity size. Moderate to marked concentric left ventricular hypertrophy. 2. Normal appearance of the tricuspid leaflets. Mild tricuspid regurgitation. Normal right ventricular systolic pressure. Electronically Signed By: Parish Monae MD, [facility] 2023-07-28 05:05:41 CDT CC: CC: Procedure Note Parish Monae MD - 07/28/2023 [place] [id number] [place] [address] ECHOCARDIOGRAM Patient Name: JUDI ADAM LPatient ID: [id number] : [id number] Date: 07/27/2023 3:42:15 PM Gender: MAccession #: [id number] Tech: RLLocation: [id number] Ref.Provider: ERIN MONKHeight(Cm): 183 BSA: 2.35Weight(Kg): 108.9 BP: 108/60Order Provider: ERIN MONK - Procedures: Echocardiographic Report: Transthoracic Echocardiogram with 2D, M-Mode, Spectral and Color FlowDoppler examination and administration of intravenous contrast. Indications: Atrial fibrillation. Measurements: 2D/M Mode Doppler Measurement Value Normal Range MeasurementValue Normal Range IVSd 2D 1.87 [ 0.60 - 0.90 ] cm AV Peak Vel1.9 [ 1.0 - 1.7 ] m/s LVIDd 2D 5.30 [ 4.20 - 5.90 ] cm AV Peak PG 15[ 2 - 9 ] mmHg LVIDs 2D 3.58 [ 2.30 - 3.90 ] cm AV Mean PG 9[ 2 - 4 ] mmHg LVPWd 2D 1.68 [ 0.60 - 1.00 ] cm AV VTI30.7 cm LA Dimension 2D 3.75 [ 3.00 - 4.00 ] cm CATHI VTI2.2 [ 2.0 - 4.0 ] cm2 AoR Diam 2D 2.68 [ 2.60 - 3.70 ] cm LVOT Peak Vel1.35 [ 0.70 - 1.10 ] m/s LA Volume Index 32.95 [ 16.00 - 28.00 ] ml/m2 LVOT Diam2.0 [ 1.7 - 2.1 ] cm TAPSE 1.99 [ 1.60 - 3.00 ] cm LVOT Peak PG 7[ 2 - 6 ] mmHg LVOT VTI21.9 [ 20.0 - 30.0 ] cm MV Peak PG 9[ 1 - 10 ] mmHg MV Mean PG 3[ <= 5 ] mmHg MV E Peak Vel1.2 [ 0.6 - 1.3 ] m/s MV A Peak Vel0.8 [ 1.0 - 1.2 ] m/s MV PHT23.7 [ 20.0 - 100.0 ] ms MV Decel Dmob749.7 [ 104.0 - 258.0 ] ms MVA PHT9.3 [ 2.0 - 4.0 ] ms MV E/A Ratio1.5 TR Peak Vel2.3 [ 1.0 - 2.8 ] m/s TR Peak PG 22mmHg RVSP36.6 [ 10.0 - 36.0 ] mmHg RA Acpqgcay67.0 mmHg PV Peak Vel1.4 [ 0.4 - 0.8 ] m/s PV Peak PG 8mmHg Lat E` Vel0.20 [ 0.10 - 0.15 ] m/s Sept E' Vel0.11 [ 0.08 - 0.15 ] m/s E/E`6.00 RV S'0.21 m/s - Findings: Study Quality: Technically difficult study. Contrast was employed for LV opacificationand endocardial border enhancement. BP: Blood pressure: 108/60 mmHg. Left Ventricle: Normal global and regional left ventricular systolic function. EjectionFraction is measured at (Simpsons) 63 %. Normal left ventricular cavity size. Moderateto marked concentric left ventricular hypertrophy. Right Ventricle: Normal right ventricular systolic function. Normal right ventricularsize. Left Atrium: There is moderate enlargement of the left atrium. Right Atrium: The right atrium is normal in size. Atrial Septum: Normal appearing atrial septum. Mitral Valve: Normal appearance of the mitral valve leaflets. Mild mitral valveregurgitation. Aortic Valve: Grossly normal appearing aortic valve. There is no aortic stenosis. Tricuspid Valve: Normal appearance of the tricuspid leaflets. Mild tricuspid regurgitation.Normal right ventricular systolic pressure. Pulmonic Valve: The pulmonic valve is not seen. Pericardium: Normal appearing pericardial thickness. No significant pericardialeffusion. Aortic Root and Aorta: Normal caliber aortic root. Aortic Arch: The aortic arch is poorly visualized. IVC: Dilated inferior vena cava with poor inspiratory collapse consistent withelevated right atrial pressure. Conclusions: 1. Normal global and regional left ventricular systolic function. EjectionFraction is measured at (Simpsons) 63 %. Normal left ventricular cavity size. Moderateto marked concentric left ventricular hypertrophy. 2. Normal appearance of the tricuspid leaflets. Mild tricuspidregurgitation. Normal right ventricular systolic pressure. Electronically Signed By: Parish Monae MD, [facility] 2023-07-28 05:05:41 CDT CC: CC: Erin Cobian NP CV ECHO PROCEDURES [facility] Result * (ABNORMAL) Hemoglobin and hematocrit (07/27/2023 4:35 PM CDT) Hgb 5.8(C) 13.0 - 17.5 g/dL Comment: Critical result called to and read back by JOSEPH VALERA RN on 07 27 2023 at 1715 to BENEDICTO BETHEA. Interpretive Data A reference range for this assay has not been established for patients with an unknown legal sex. Please refer to the laboratory test catalog for established sex-specific reference intervals. Current interpretive data was last revised on 2023. Hct 18.6(L) 38.9 - 50.3 % [facility] Blood 07/27/2023 4:35 PM CDT 07/27/2023 4:44 PM CDT us Parish Harrell PA LAB BLOOD ORDERABLES F inal Result [facility] [address] [place] [address] * NT-Pro BNP - Add on lab test (07/27/2023 2:41 PM CDT) Acceptable Yes Blood 07/27/2023 2:41 PM CDT 07/27/2023 2:41 PM CDT [facility]ative [facility] - 07/27/2023 2:41 PM CDT Name of Test->NT-Pro BNP us Erin Cobian NP LAB BLOOD ORDERABLES F inal Result [facility] [address] Department [place] [address] * Transfuse RBC (07/27/2023 1:56 PM CDT) Blood Lew Garcia MD BLOOD TRANSFUSION ORDNicole COOK Final Result [facility] [address] Department [place] [address] * Transfuse RBC: 2 Units (07/27/2023 1:56 PM CDT) Blood us Lew Garcia MD BLOOD TRANSFUSION ORDNicole COOK Final Result * MD CRITICAL CARE ILL/INJURED PATIENT INIT 30-74 MIN (07/27/2023 1:31 PM CDT) Narrative Lew Garcia MD - 07/27/2023 1:31 PM CDT Lew Garcia MD ? 07/27/2023 ??1:33 PM Critical Care Performed by: Lew Garcia MD Authorized by: Lew Garcia MD ?? Critical care provider statement: As reflected in the history, physical exam, orders, notes, and/or MDM, I was personally present while the patient was critically ill and provided critical care services for 30 minutes, excluding time involved in separately billable procedures. ??Critical care was necessary to treat or prevent imminent or life-threatening deterioration of the following condition(s): ?? unstable vital signs ?? atrial fibrillation and severe cardiac condition ?? acute gastrointestinal bleed (GIB) ?? acute blood loss anemia ??Critical care was time spent by me providing the following: ? continuous telemetry, continuous pulse oximetry, interpretation of bedside monitors, imaging, and arterial/venous lab draws, serial bedside patient exams, serial laboratory checks and resuscitation with fluids ?? frequent neurologic exams ?? decision regarding NPO status ?? transfusion of blood products ?? I provided emergent necessary critical care medicine services to this patient. I ordered and reviewed test results and/or imaging studies. I spent time discussing the management of this critically ill patient with consultants and the medical staff. I spent time discussing the management and therapeutic options for this critically ill patient with the patient themselves or with the appropriate designated surrogate decision-maker. I spent time documenting in the medical record. I admitted this patient to a continuous cardiac monitored bed. us Lew Garcia MD IN CLINIC/BEDSIDE ANNETTE COOK Final Result * Transfuse RBC (07/27/2023 12:08 PM CDT) Blood Lew Garcia MD BLOOD TRANSFUSION ANNETTE COOK Final Result [facility] [address] [place] [address] * (ABNORMAL) Pro B-type natriuretic peptide (07/27/2023 12:05 PM CDT) NT-proBNP 648(H) <=450 pg/mL Comment: Interpretive Comments: A. Dyspnea in Acute Care Setting All Ages: ?< 300 pg/ml, acute heart failure unlikely. < 50 yrs: ?300 - 450 pg/ml, further investigation warranted. ? > 450 pg/ml, acute heart failure likely. 50 - 74 yrs: ? 300 - 900 pg/ml, further investigation warranted. ? > 900 pg/ml, acute heart failure likely . > or = 75 yrs: ? 450 - 1800 pg/ml, further investigation warranted. ? > 1800 pg/ml, acute heart failure likely. B. Non-acute Setting < 75 yrs ? < 125 pg/ml, rules out heart failure. ? > or = 125 pg/ml, further investigation warranted. > or = 75 yrs ?< 450 pg/ml, rules out heart failure. ? > or = 450 pg/ml, further investigation warranted. - Knowledge of each individual patient's NT-proBNP range may be more useful than using similar cut-points for every patient. Please note that marked elevations in NT-proBNP levels may be observed in state other than Left Ventricular Congestive Failure, including: acute coronary syndromes, right heart strain/failure (including pulmonary embolism and cor pulmonale), critical illness, renal failure, as well as advanced age. - References: 1. Damion RENEE et.al. Eur Heart J. 2006:27:330-337. 2. Chelsie OLIVARES, Paulette CAREY. J. AM Rebeka Cardiol: Cardiovasc Imag. 2009;2: 216- 225. Interpretive Data Last Revised Date: 2018. Blood 07/27/2023 12:0 5 PM CDT 07/27/2023 12:41 PM CDT Nighat Angeles MD LAB BLOOD ORDERABLES Final Result Performing Organization Address [facility]/ZIP Co de Phone Number [facility] [address] Department [employer] [place], [place] [id number] * (ABNORMAL) aPTT (07/27/2023 12:05 PM CDT) aPTT 26(L) 28 - 38 sec Comment: Interpretive Data Heparin therapeutic range: 66.0 - 100.0 seconds. Range based on correlation with therapeutic heparin activity range of 0.3 - 0.7 Units/mL. Current interpretive data was last revised on 2023. Blood 07/27/2023 12:0 5 PM CDT 07/27/2023 12:19 PM CDT Lew Garcia MD LAB BLOOD ORDERABLES F inal Result Performing Organization Address [facility] Co de Phone Number [facility] [address] [place] [address] * (ABNORMAL) Protime-INR (07/27/2023 12:05 PM CDT) PT 13.9(H) 10.3 - 13.7 sec INR 1.22(H) 0.90 - 1.20 [facility] Comment: Interpretive data Oral anticoagulant therapeutic ranges: Venous thromboembolism prophylaxis or treatment: 2.0-3.0 CARDIOLOGY Standard range: 2.0-3.0 High-intensity range: 2.5-3.5 Refer to indication-specific guidelines for appropriate target ranges for prosthetic heart valve replacement. Current interpretive data was last revised on 2019. Blood 07/27/2023 12:0 5 PM CDT 07/27/2023 12:19 PM CDT Lew Garcia MD LAB BLOOD ORDERABLES F inal Result [facility] [address] Department [place] [address] * (ABNORMAL) CBC without differential (07/27/2023 12:05 PM CDT) WBC 8.0 3.8 - 9.9 K/cumm Hgb 5.7(C) 13.0 - 17.5 g/dL [facility] Comment: Critical result called to and read back by BEATRICE COPE RN on 07 27 2023 at 1242 to Christelle Romano. Interpretive Data A reference range for this assay has not been established for patients with an unknown legal sex. Please refer to the laboratory test catalog for established sex-specific reference intervals. Current interpretive data was last revised on 2023. Hct 18.4(L) 38.9 - 50.3 % [facility] Plt 270 150 - 400 K/cumm [facility] MPV 9.0(L) 9.1 - 12.3 fL [facility] RBC 1.78(L) 4.30 - 5.80 M/cumm [facility] Comment: Interpretive Data A reference range for this assay has not been established for patients with an unknown legal sex. Please refer to the laboratory test catalog for established sex-specific reference intervals. Current interpretive data was last revised on 2023. MCV 103.4(H) 81.3 - 96.4 fL [facility] MCH 32.0 27.1 - 33.3 pg [facility] MCHC 31.0(L) 32.3 - 35.7 g/dL [facility] RDW CV 15.3(H) 11.1 - 14.9 % [facility] RDW SD 52.0(H) 35.7 - 48.1 fL [facility] NRBC abs 0.11(H) 0.00 - 0.01 K/cumm [facility] Blood 07/27/2023 12:0 5 PM CDT 07/27/2023 12:19 PM CDT Lew Garcia MD LAB BLOOD ORDERABLES F inal Result Performing Organization Address [facility] Co de Phone Number [facility] [address] [place] [address] * Troponin T high-sensitivity 2-hour (07/27/2023 12:05 PM CDT) Trop T hs 21 <=22 ng/L Comment: Interpretive Data For further hscTnT resources including the diagnostic algorithm and an aid in interpretation, copy and paste this link: [email or web address].testcatalog.org/show/hsTrop Current Interpretive Data last revised 2020. Trop T hs delta 1 ng/L [facility] Trop T hs interp Insignificant [facility] Blood 07/27/2023 12:0 5 PM CDT 07/27/2023 12:16 PM CDT Lew Garcia MD LAB BLOOD ORDERABLES F inal Result Performing Organization Address [facility] Co de Phone Number [facility] [address] [place] [address] * CTA Chest Abdomen Pelvis (07/27/2023 10:45 AM CDT) Anatomical Region Laterality Modality Body N/A Computed Tomogra phy 07/27/2023 11:1 4 AM CDT Impressions 07/27/2023 11:29 AM CDT Postsurgical changes of aortic valve replacement and composite type ascending aorta repair with modified Bentall coronary artery reimplantation. ??There is no organized fluid collection or dehiscence of the surgical site. ??No CT explanation for chest pain. Dictated by: Jad Gross MD, PHD The radiology attending physician has personally reviewed this study, and had reviewed and/or edited this written report and agrees with it. Electronically signed by: Reyes Vincent M.D. Narrative 07/27/2023 11:29 AM CDT EXAMINATION: CTA CHEST ABDOMEN PELVIS HISTORY: ??Ascending aortic aneurysm status post open repair on 07/10/2023 present with chest pain and lightheadedness TECHNIQUE: ??Transaxial computed tomographic images of the chest, abdomen and pelvis were obtained with intravenous contrast according to the angiographic protocol after the uneventful administration of 120 mL Opti-Ray 350. Images were transferred to an independent workstation for additional 3-D postprocessing. COMPARISON: CTA chest 06/06/2023 FINDINGS: There are postsurgical changes of aortic valve replacement with composite type ascending aorta repair with modified Bentall coronary artery reimplantation. There is expected postoperative soft tissue stranding and fluid in the mediastinum without an organized fluid collection. ??The sternotomy site has been approximately with sternal plates without evidence of dehiscence. There is no pulmonary embolus. ??The coronary arteries demonstrate calcified atherosclerotic disease, particularly involving the left coronary system. Non vascular findings: There is a small right pleural effusion. ??Mild atelectasis lung bases, otherwise lungs are clear. ??No pneumothorax. ??Heart size is normal with trace pericardial fluid. ??There are reactive subcentimeter lymph nodes in the mediastinum with no supraclavicular or axillary lymphadenopathy. ??Normal liver, gallbladder. ??No biliary duct dilation. ??Pancreas, spleen, left adrenal gland are normal. There is a low lipoma right adrenal gland measuring 1 cm. ??There is a 3 mm nonobstructing renal stone in the lower pole the right kidney and 4 mm nonobstructing renal stones upper pole the left kidney. ??No hydronephrosis. ??Urinary bladder is normal. ??There are calcifications prostate. ??The colon, appendix, small bowel, and stomach are normal. No mesenteric or retroperitoneal, pelvic, or inguinal lymphadenopathy. ??No intra-abdominal free air or free fluid. Abdominal aorta contains mild calcified atherosclerotic disease. ??No suspicious osseous lesion. Procedure Note Reyes Vincent MD - 07/27/2023 EXAMINATION: CTA CHEST ABDOMEN PELVIS HISTORY: Ascending aortic aneurysm status post open repair on 07/10/2023 present with chest pain and lightheadedness TECHNIQUE: Transaxial computed tomographic images of the chest, abdomen and pelvis were obtained with intravenous contrast according to the angiographic protocol after the uneventful administration of 120 mL Opti-Ray 350. Images were transferred to an independent workstation for additional 3-D postprocessing. COMPARISON: CTA chest 06/06/2023 FINDINGS: There are postsurgical changes of aortic valve replacement with composite type ascending aorta repair with modified Bentall coronary artery reimplantation. There is expected postoperative soft tissue stranding and fluid in the mediastinum without an organized fluid collection. The sternotomy site has been approximately with sternal plates without evidence of dehiscence. There is no pulmonary embolus. The coronary arteries demonstrate calcified atherosclerotic disease, particularly involving the left coronary system. Non vascular findings: There is a small right pleural effusion. Mild atelectasis lung bases, otherwise lungs are clear. No pneumothorax. Heart size is normal with trace pericardial fluid. There are reactive subcentimeter lymph nodes in the mediastinum with no supraclavicular or axillary lymphadenopathy. Normal liver, gallbladder. No biliary duct dilation. Pancreas, spleen, left adrenal gland are normal. There is a low lipoma right adrenal gland measuring 1 cm. There is a 3 mm nonobstructing renal stone in the lower pole the right kidney and 4 mm nonobstructing renal stones upper pole the left kidney. No hydronephrosis. Urinary bladder is normal. There are calcifications prostate. The colon, appendix, small bowel, and stomach are normal. No mesenteric or retroperitoneal, pelvic, or inguinal lymphadenopathy. No intra-abdominal free air or free fluid. Abdominal aorta contains mild calcified atherosclerotic disease. No suspicious osseous lesion. IMPRESSION: Postsurgical changes of aortic valve replacement and composite type ascending aorta repair with modified Bentall coronary artery reimplantation. There is no organized fluid collection or dehiscence of the surgical site. No CT explanation for chest pain. Dictated by: Jad Gross MD, PHD The radiology attending physician has personally reviewed this study, and had reviewed and/or edited this written report and agrees with it. Electronically signed by: Reyes Vincent M.D. us Lew Garcia MD IMG CT PROCEDURES [facility] Result * CT Head and Cervical Spine WO Contrast (07/27/2023 10:45 AM CDT) Anatomical Region Laterality Modality Head and Neck N/A Computed Tomogra phy 07/27/2023 10:5 7 AM CDT Impressions 07/27/2023 10:57 AM CDT No acute intracranial process. 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 CT angiography of the head may be considered for further evaluation. No evidence of acute fracture in the cervical spine. Electronically signed by: Evin Fowler MD Narrative 07/27/2023 10:57 AM CDT EXAMINATION: Noncontrast head CT CT of the cervical spine without contrast HISTORY: ??fall. TECHNIQUE: Noncontrast CT of the brain and cervical spine was performed with images acquired from skull base to vertex. COMPARISON: No priors. FINDINGS: HEAD: There is no acute intracranial hemorrhage. Cerebral volume loss without hydrocephalus. No mass effect or midline shift is present. The wilkes-white matter differentiation is normal. Periventricular white matter hypoattenuation may reflect underlying chronic small vessel ischemic changes. Carotid siphon atherosclerotic calcifications are noted. No acute calvarial fracture seen. The visualized portions of the orbits are normal. The visualized portions of the mastoids are normal. Polypoid mucosal thickening in the left maxillary sinus. There is a peripherally calcified ovoid hypoattenuating lesion within the left sylvian fissure which measures approximately 0.8 cm in diameter and is concerning for a left cerebral artery aneurysm. CERVICAL SPINE: Straightening of the normal cervical lordosis. There is no acute fracture. Vertebral bodies are normal in height without compression fractures. Craniocervical arthropathy is noted. No soft tissue abnormality is identified. Advanced degenerative disc/facet/uncovertebral disease is present. Varying levels of up to moderate spinal canal stenosis are noted. Varying levels of up to severe foraminal stenoses are noted. Procedure Note Evin Fowler MD - 07/27/2023 EXAMINATION: Noncontrast head CT CT of the cervical spine without contrast HISTORY: fall. TECHNIQUE: Noncontrast CT of the brain and cervical spine was performed with images acquired from skull base to vertex. COMPARISON: No priors. FINDINGS: HEAD: There is no acute intracranial hemorrhage. Cerebral volume loss without hydrocephalus. No mass effect or midline shift is present. The wilkes-white matter differentiation is normal. Periventricular white matter hypoattenuation may reflect underlying chronic small vessel ischemic changes. Carotid siphon atherosclerotic calcifications are noted. No acute calvarial fracture seen. The visualized portions of the orbits are normal. The visualized portions of the mastoids are normal. Polypoid mucosal thickening in the left maxillary sinus. There is a peripherally calcified ovoid hypoattenuating lesion within the left sylvian fissure which measures approximately 0.8 cm in diameter and is concerning for a left cerebral artery aneurysm. CERVICAL SPINE: Straightening of the normal cervical lordosis. There is no acute fracture. Vertebral bodies are normal in height without compression fractures. Craniocervical arthropathy is noted. No soft tissue abnormality is identified. Advanced degenerative disc/facet/uncovertebral disease is present. Varying levels of up to moderate spinal canal stenosis are noted. Varying levels of up to severe foraminal stenoses are noted. IMPRESSION: No acute intracranial process. 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 CT angiography of the head may be considered for further evaluation. No evidence of acute fracture in the cervical spine. Electronically signed by: Evin Fowler MD Lew Garcia MD IMG CT PROCEDURES Harriet l Result * Folate (07/27/2023 9:14 AM CDT) Pathologist [facility] [place] Folic acid 9.5 >=5.0 ng/mL Blood 07/27/2023 9:14 AM CDT 07/27/2023 9:36 AM CDT Nighat Angeles MD LAB BLOOD ORDERABLES Final Result [facility] [address] Department [place] [address] * (ABNORMAL) Iron profile w/ IBC (07/27/2023 9:14 AM CDT) Pathologist [facility] [place] Iron 125 50 - 150 mcg/dL Comment: Interpretive Data A reference range for this assay has not been established for patients with an unknown legal sex. Please refer to the laboratory test catalog for established sex-specific reference intervals. Current interpretive data was last revised on 2023. TIBC 234(L) 250 - 400 mcg/dL [facility] Transferrin saturation 53(H) 20 - 50 % [facility] Blood 07/27/2023 9:14 AM CDT 07/27/2023 9:36 AM CDT Nighat Angeles MD LAB BLOOD ORDERABLES Final Result Performing Organization Address City/[facility]/ZIP Co de Phone Number [facility] [address] [facility] [place] [address] * Folate - Add on lab test (07/27/2023 9:14 AM CDT) Acceptable Yes Blood 07/27/2023 9:14 AM CDT 07/27/2023 1:48 PM CDT Narrative [facility] - 07/27/2023 1:48 PM CDT Name of Test->Folate Nighat Angeles MD LAB BLOOD ORDERABLES Final Result Performing Organization Address [facility] Co de Phone Number [facility] [address] [facility] [place] [address] * Vitamin B12 - Add on lab test (07/27/2023 9:14 AM CDT) Acceptable Yes Blood 07/27/2023 9:14 AM CDT 07/27/2023 1:48 PM CDT Narrative [facility] - 07/27/2023 1:48 PM CDT Name of Test->Vitamin B12 Nighat Angeles MD LAB BLOOD ORDERABLES Final Result Performing Organization Address City/[facility]/ZIP Co de Phone Number [facility] [address] [facility] [place] [address] * Iron profile - Add on lab test (07/27/2023 9:14 AM CDT) Acceptable Yes Blood 07/27/2023 9:14 AM CDT 07/27/2023 1:45 PM CDT Narrative [facility] - 07/27/2023 1:45 PM CDT Name of Test->Iron profile Nighat Angeles MD LAB BLOOD ORDERABLES Final Result Performing Organization Address [facility] Co de Phone Number [facility] [address] Department [place] [address] * TSH reflex to free T4 (07/27/2023 9:14 AM CDT) TSH 1.48 0.30 - 4.20 mcIUnit/mL Blood 07/27/2023 9:14 AM CDT 07/27/2023 9:21 AM CDT Lew Garcia MD LAB BLOOD ORDERABLES F inal Result Performing Organization Address [facility] Co de Phone Number [facility] [address] Department [place] [address] * Phosphorus (07/27/2023 9:14 AM CDT) Phosphorus, pl 2.9 2.3 - 4.5 mg/dL Blood 07/27/2023 9:14 AM CDT 07/27/2023 9:21 AM CDT Lew Garcia MD LAB BLOOD ORDERABLES F inal Result Performing Organization Address [facility] Co de Phone Number [facility] [address] [facility] [employer] [place], [place] [id number] * (ABNORMAL) Magnesium (07/27/2023 9:14 AM CDT) Magnesium 2.6(H) 1.4 - 2.5 mg/dL Blood 07/27/2023 9:14 AM CDT 07/27/2023 9:21 AM CDT Lew Garcia MD LAB BLOOD ORDERABLES F inal Result Performing Organization Address [facility] Co de Phone Number [facility] [address] [facility] [place] [address] * Vitamin B12 (07/27/2023 9:14 AM CDT) Pathologist [facility] [place] Vitamin B12 388 230 - 1,250 pg/mL Blood 07/27/2023 9:14 AM CDT 07/27/2023 9:21 AM CDT Lew Garcia MD LAB BLOOD ORDERABLES F inal Result Performing Organization Address [facility] de Phone Number [facility] [address] Department [employer] [place], [place] [id number] * Troponin T high-sensitivity series (baseline, 2hr, 4hr, 6hr) (07/27/2023 9:14 AM CDT) Pathologist [facility] [place] Trop T hs 20 <=22 ng/L Comment: Interpretive Data For further hscTnT resources including the diagnostic algorithm and an aid in interpretation, copy and paste this link: [email or web address].testcatalog.org/[email or web address] Current Interpretive Data last revised 2020. Blood 07/27/2023 9:14 AM CDT 07/27/2023 9:21 AM CDT Lew Garcia MD LAB BLOOD ORDERABLES F inal Result Performing Organization Address [facility] Co de Phone Number [facility] [address] Department [place], [place] [id number] * Type and screen (07/27/2023 9:14 AM CDT) Pathologist [facility] [place] Chacorta, indirect Negative ABO Rh O Positive [facility] Blood 07/27/2023 9:14 AM CDT 07/27/2023 9:42 AM CDT Narrative [facility] - 07/27/2023 10:24 AM CDT Has the patient had Daratumumab or Isatuximab in the past 6 months?->Unknown Lew Garcia MD LAB BLOOD BANK TEST OR DERABLES Final Result Performing Organization Address [facility] de Phone Number [facility] [address] [place] [address] * Prepare RBC: 2 Units (07/27/2023 8:41 AM CDT) Pathologist [facility] [place] Product code [id number] [facility] Unit Number [id number] [facility] Product Blood Type OPOS [facility] Dispense Status PRESUMED TRANSFUSED [facility] Product code [id number] Unit Number [id number] [facility] Product Blood Type OPOS [facility] Dispense Status PRESUMED TRANSFUSED [facility] Blood 07/27/2023 8:41 AM CDT [facility] - 07/28/2023 10:15 AM CDT Are special requirements needed? (All products are leukoreduced and CMV- safe)- >No Date required:-[id number] LRRBC # of [id number] Reasons:-Hgb <7 g/dL} Lew Garcia MD BLOOD BANK PRODUCT ORD ERABLES Final Result Performing Organization Address [facility] de Phone Number [facility] [address] Department [place] [address] * eGFR (07/27/2023 8:21 AM CDT) Pathologist [facility] [place] eGFR 90 mL/min/1. 73 m2 Comment: Interpretive Data Reference Interval Normal ?>/= 90 mL/min/1.73m2 Mildly decreased* ? 60 - 89 mL/min/1.73m2 Mildly to moderately decreased ?45 - 59 mL/min/1.73m2 Moderately to severely decreased ??30 - 44 mL/min/1.73m2 Severely decreased ?15 - 29 mL/min/1.73m2 Kidney Failure ?< 15 ??mL/min/1.73m2 *Relative to young adult level Estimated glomerular filtration rate is determined by the 2020 CKD-EPI equation recommended by the National Kid[employer] (A Unifying Approach to GFR Estimation: Recommendations of the NKF-ASK Task Force on Reassessing the Inclusion of Race in Diagnosing Kidney Disease, JASN 2020). The CKD-EPI equation should not be used for patients with unstable renal function and has not been validated in children and those over 70. Current interpretive data was last reviewed 2021. Blood 07/27/2023 8:21 AM CDT 07/27/2023 8:25 AM CDT us Lew Garcia MD LAB BLOOD ORDERABLES F inal Result [facility] [address] Department [place] [address] * (ABNORMAL) Differential, auto (07/27/2023 8:21 AM CDT) Neutrophil abs 6.8(H) 1.7 - 6.5 K/cumm Imm gran abs 0.1 0.0 - 0.1 K/cumm [facility] Lymphocyte abs 1.0 0.8 - 3.3 K/cumm [facility] Monocyte abs 0.7 0.2 - 0.8 K/cumm [facility] Eosinophil abs 0.0 0.0 - 0.5 K/cumm [facility] Basophil abs 0.0 0.0 - 0.1 K/cumm [facility] Neutrophil pct 79.0 % [facility] Comment: Interpretive Data Percent cell count reference ranges are not reported, since discordance with absolute values may lead to misinterpretation of CBC data. Current Interpretive Data was last revised on 2018. Imm gran pct 0.9 % [facility] Comment: Interpretive Data Percent cell count reference ranges are not reported, since discordance with absolute values may lead to misinterpretation of CBC data. Current Interpretive Data was last revised on 2018. Lymphocyte pct 11.8 % [facility] Comment: Interpretive Data Percent cell count reference ranges are not reported, since discordance with absolute values may lead to misinterpretation of CBC data. Current Interpretive Data was last revised on 2018. Monocyte pct 7.8 % [facility] Comment: Interpretive Data Percent cell count reference ranges are not reported, since discordance with absolute values may lead to misinterpretation of CBC data. Current Interpretive Data was last revised on 2018. Eosinophil pct 0.2 % [facility] Comment: Interpretive Data Percent cell count reference ranges are not reported, since discordance with absolute values may lead to misinterpretation of CBC data. Current Interpretive Data was last revised on 2018. Basophil pct 0.3 % [facility] Comment: Interpretive Data Percent cell count reference ranges are not reported, since discordance with absolute values may lead to misinterpretation of CBC data. Current Interpretive Data was last revised on 2018. Blood 07/27/2023 8:21 AM CDT 07/27/2023 8:25 AM CDT us Lew Garcia MD LAB BLOOD ORDERABLES F inal Result [facility] [address] Department [place] [address] * (ABNORMAL) Comprehensive metabolic panel (07/27/2023 8:21 AM CDT) Sodium 138 135 - 145 mmol/L Potassium, pl 4.6 3.3 - 4.9 mmol/L [facility] Comment:Hemolyzed; potassium value may be falsely elevated by as much as 0.6 - 1.0 mmol/L. Suggest redraw and reanalysis Chloride 105 97 - 110 mmol/L [facility] CO2 19(L) 22 - 32 mmol/L [facility] Anion gap 14 2 - 15 mmol/L [facility] BUN 33(H) 6 - 25 mg/dL [facility] Creatinine 0.85 0.80 - 1.30 mg/dL [facility] Glucose 136 70 - 199 mg/dL [facility] Comment: Interpretive Data Fasting glucose >/= 126 mg/dl is diagnostic for diabetes. ?? Fasting is defined as no caloric intake for at least 8 hours. Fasting glucose between 100 mg/dl to 125 mg/dl is diagnostic of prediabetes. In a patient with classic symptoms of hyperglycemia or hyperglycemic crisis, a random glucose >/= 200 mg/dl is diagnostic for diabetes. In the absence of unequivocal hyperglycemia, results should be confirmed by repeat testing. The classification and Diagnosis of Diabetes Diabetes Care 2021; 46: S19-S40. Current interpretive data was last revised 2022. Calcium 8.5 8.5 - 10.3 mg/dL [facility] Bilirubin, total 0.5 0.1 - 1.2 mg/dL [facility] Protein, pl 5.8(L) 6.5 - 8.5 g/dL [facility] Albumin 3.1(L) 3.5 - 5.0 g/dL [facility] Alk phos 61 40 - 130 Units/L [facility] ALT 31 7 - 55 Units/L [facility] Comment:Moderately Hemolyzed Specimen AST 46 10 - 50 Units/L [facility] Comment:Moderately Hemolyzed Specimen Blood 07/27/2023 8:21 AM CDT 07/27/2023 8:25 AM CDT us Lew Garcia MD LAB BLOOD ORDERABLES F inal Result [facility] [address] Department [place] [address] * (ABNORMAL) CBC with auto differential (07/27/2023 8:21 AM CDT) WBC 8.7 3.8 - 9.9 K/cumm Hgb 5.5(C) 13.0 - 17.5 g/dL [facility] Comment: Critical result called to and read back by SHARIFA FRAZIER RN on 07 27 2023 at 0835 to Christelle Romano. Interpretive Data A reference range for this assay has not been established for patients with an unknown legal sex. Please refer to the laboratory test catalog for established sex-specific reference intervals. Current interpretive data was last revised on 2023. Hct 17.6(L) 38.9 - 50.3 % [facility] Plt 315 150 - 400 K/cumm [facility] MPV 9.1 9.1 - 12.3 fL [facility] RBC 1.73(L) 4.30 - 5.80 M/cumm [facility] Comment: Interpretive Data A reference range for this assay has not been established for patients with an unknown legal sex. Please refer to the laboratory test catalog for established sex-specific reference intervals. Current interpretive data was last revised on 2023. MCV 101.7(H) 81.3 - 96.4 fL [facility] MCH 31.8 27.1 - 33.3 pg [facility] MCHC 31.3(L) 32.3 - 35.7 g/dL [facility] RDW CV 14.9 11.1 - 14.9 % [facility] RDW SD 50.2(H) 35.7 - 48.1 fL [facility] NRBC abs 0.11(H) 0.00 - 0.01 K/cumm [facility] Blood 07/27/2023 8:21 AM CDT 07/27/2023 8:25 AM CDT us Lew Garcia MD LAB BLOOD ORDERABLES F inal Result [facility] [address] Department [place] [address] * ECG 12 lead (07/27/2023 8:00 AM CDT) 07/27/2023 8:00 AM CDT Narrative [facility] - 07/27/2023 10:50 AM CDT Vent Rate: 122 bpm RR Interval: 489 msec MD Interval: 0 msec QRS Duration: 110 msec QT Interval: 371 msec QTC Interval: 444 msec P-R-T Cornell: 0 - -37 - 71 degrees IMPRESSION: ATRIAL FIBRILLATION WITH RAPID VENTRICULAR RESPONSE LEFT AXIS DEVIATION NONSPECIFIC ST \T\ T-WAVE ABNORMALITY ABNORMAL ECG Electronically Signed By: Javon Lopez MD [facility] us Lew Garcia MD ECG ORDERABLES Final Result [facility] documented in this encounter Visit Diagnoses Diagnosis Acute blood loss anemia- Primary Acute posthemorrhagic anemia Atrial fibrillation with rapid ventricular response (CMS/HCC) (HCC) Macrocytic anemia Melena Blood in stool Melena Blood in stool Obstructive sleep apnea syndrome Obstructive sleep apnea (adult) (pediatric) Premature atrial contractions Supraventricular premature beats Syncope and collapse Hypercholesterolemia Pure hypercholesterolemia Saccular aneurysm Cerebral aneurysm, nonruptured Class 1 obesity due to excess calories with serious comorbidity and body mass index (BMI) of 31.0 to 31.9 in adult Melena Blood in stool documented in this encounter Admitting Diagnoses Diagnosis Anemia Unspecified anemia Melena Blood in stool documented in this encounter Administered Medications Inactive Administered Medications - up to 3 most recent administrations Medication Order MAR Action Action Date Dose Rate Site acetaminophen (TYLENOL) tablet 650 mg 650 mg, oral, Every 4 hours PRN, 1st line for pain, fever, fever greater than 38.3 C, Starting on Sun07/27/23 at 1329, Indications: Fever, PainIndications:Fever,Pain Given 07/30/2023 8:26 AM CDT 650 mg Given 07/27/2023 1:34 PM CDT 650 mg atorvastatin (LIPITOR) tablet 40 mg 40 mg, oral, Daily, First dose on Sun07/27/23 at 1615 Given 07/31/2023 8:41 AM CDT 40 mg Given 07/30/2023 8:26 AM CDT 40 mg Given 07/29/2023 8:28 AM CDT 40 mg metoprolol tartrate (LOPRESSOR) immediate release tablet 25 mg 25 mg, oral, 2 times daily, First dose on Sun07/27/23 at 1545 Given 07/31/2023 8:41 AM CDT 25 mg Given 07/30/2023 7:49 PM CDT 25 mg Given 07/30/2023 8:26 AM CDT 25 mg ondansetron (ZOFRAN) injection 4 mg 4 mg, intravenous, Administer over 2 Minutes, Every 6 hours PRN, nausea, vomiting, if not tolerating PO, Starting on Sun07/27/23 at 1329, Indications: Nausea and VomitingIndications:Nausea and Vomiting ondansetron ODT (ZOFRAN-ODT) disintegrating tablet 4 mg 4 mg, oral, Every 6 hours PRN, nausea, vomiting, Starting on Sun07/27/23 at 1329, Indications: Nausea and VomitingIndications:Nausea and Vomiting pantoprazole (PROTONIX) 40 mg in sodium chloride 0.9% 10 mL IV Syringe 40 mg, intravenous, at 300 mL/hr, Administer over 2 Minutes, 2 times daily, First dose on Sun07/27/23 at 1447, For IV administration, reconstitute 40 mg vial with 10 mL sodium chloride 0.9% for injection for a final concentration of 4 mg/mL, Indications: GI BleedIndications:GI Bleed Given 07/31/2023 8:41 AM CDT 40 mg 300 mL/hr Given 07/30/2023 7:49 PM CDT 40 mg 300 mL/hr Given 07/30/2023 8:24 AM CDT 40 mg 300 mL/hr sodium chloride 0.9% flush 0.5-20 mL 0.5-20 mL, intra-catheter, Every 8 hours scheduled, First dose on Sun07/27/23 at 1615, Flush volume based on line type and size. Given 07/30/2023 7:56 PM CDT 10 mL Given 07/29/2023 8:25 PM CDT 10 mL Given 07/28/2023 8:59 PM CDT 10 mL documented in this encounter Discontinued Medications Medication Sig Discontinue Reason Start Date End Da te furosemide (LASIX) 20 mg tablet Take 1 tablet (20 mg total) by mouth daily for 7 days 07/14/2023 07/27/2023 HYDROcodone-acetaminophe n (NORCO) 5-325 mg per tabletIndications:Pain Take 1 tablet by mouth every 4 (four) hours as needed for pain 07/14/2023 07/27/2023 documented as of this encounter Active and Recently Administered Medications Times are shown in CDT. Scheduled Medication Order 07/29/2023 07/30/2023 07/31/2023 atorvastatin (LIPITOR) tablet 40 mg 40 mg, oral, Daily, First dose on Sun07/27/23 at 1615 0828 (Given - Provider: Joseph Valera RN) 0826 (Given - Provider: Farideh Diehl, MAHIN) 0841 (Given - Provider: Phoebe Collazo, MAHIN) metoprolol tartrate (LOPRESSOR) immediate release tablet 25 mg 25 mg, oral, 2 times daily, First dose on Sun07/27/23 at 1545 0828 (Given - Provider: Joseph Valera, MAHIN)2014 (Given - Provider: Deanna Alexander RN) 08 (Given - Provider: Farideh Diehl RN)1948 (Given - Provider: Deanna Alexander RN) 0841 (Given - Provider: Phoebe Collazo, MAHIN) pantoprazole (PROTONIX) 40 mg in sodium chloride 0.9% 10 mL IV Syringe 40 mg, intravenous, at 300 mL/hr, Administer over 2 Minutes, 2 times daily, First dose on Sun07/27/23 at 1447, For IV administration, reconstitute 40 mg vial with 10 mL sodium chloride 0.9% for injection for a final concentration of 4 mg/mL, Indications: GI Bleed 0827 (Given - Provider: Joseph Valera RN)2013 (Given - Provider: Deanna Alexander RN) 08 (Given - Provider: Farideh Diehl RN)1948 (Given - Provider: Deanna Alexander RN) 0841 (Given - Provider: Phoebe Collazo, MAHIN) sodium chloride 0.9% flush 0.5-20 mL 0.5-20 mL, intra-catheter, Every 8 hours scheduled, First dose on Sun07/27/23 at 1615, Flush volume based on line type and size. 0640 (Not Given - Provider: Silverio Webber RN - Reason: Other)1400 (Due)2024 (Given - Provider: Deanna Alexander RN) 0409 (Not Given - Provider: Deanna Alexander RN - Reason: Other)1713 (Not Given - Provider: Farideh Diehl RN - Reason: Patient not available)1955 (Given - Provider: Deanna Alexander RN)2058 (Canceled Entry - Provider: Deanna Alexander RN - Comment: see prior admin) 0406 (Not Given - Provider: Deanna Alexander RN - Reason: Other)1428 (Not Given - Provider: Phoebe Collazo RN - Reason: Order Discontinued) PRN Medication Order 07/29/2023 07/30/2023 07/31/2023 acetaminophen (TYLENOL) tablet 650 mg 650 mg, oral, Every 4 hours PRN, 1st line for pain, fever, fever greater than 38.3 C, Starting on Sun07/27/23 at 1329, Indications: Fever, Pain 0826 (Given - Provider: Jacquelyn Diehl RN) Carrier Fluids for Secondary Infusion - 0.9% Sodium Chloride 30 mL, intravenous, As needed, For priming tubing and/or flushing, Starting on Sun07/27/23 at 1538, 0-250 ml/hr to flush line after IV infusions when no maintenance IV ordered. Infuse 30mL at the same rate as the secondary infusion. Run as primary IV, not intended for KVO. ondansetron (ZOFRAN) injection 4 mg(Linked Group 1) 4 mg, intravenous, Administer over 2 Minutes, Every 6 hours PRN, nausea, vomiting, if not tolerating PO, Starting on Sun07/27/23 at 1329, Indications: Nausea and Vomiting ondansetron ODT (ZOFRAN-ODT) disintegrating tablet 4 mg(Linked Group 1) 4 mg, oral, Every 6 hours PRN, nausea, vomiting, Starting on Sun07/27/23 at 1329, Indications: Nausea and Vomiting sodium chloride 0.9% flush 0.5-20 mL 0.5-20 mL, intra-catheter, As needed, line care, Starting on Sun07/27/23 at 1538, Flush volume based on line type and size. Flush before and after each use. Linked Groups Order Group 1: ondansetron ODT (ZOFRAN-ODT) disintegrating tablet 4 mgJump to med 4 mg, oral, Every 6 hours PRN, nausea, vomiting, Starting on Sun07/27/23 at 1329, Indications: Nausea and Vomiting Or ondansetron (ZOFRAN) injection 4 mgJump to med 4 mg, intravenous, Administer over 2 Minutes, Every 6 hours PRN, nausea, vomiting, if not tolerating PO, Starting on Sun07/27/23 at 1329, Indications: Nausea and Vomiting documented in this encounter Orders Medications Ordered That Jorge ht Not Have Been Administered Count Last Ordered Date First Ordered Date ioversoL (OPTIRAY 350) syringe 75 mL 2 07/15 sodium chloride 0.9% IVPB 0-250 mL 3 202207/27/2023 acetaminophen (TYLENOL) tablet 650 mg 1 atorvastatin (LIPITOR) tablet 40 mg 1 07/27 Carrier Fluids for Secondary Infusion - 0.9% Sodium Chloride 1 07/27/2023 ioversoL (OPTIRAY 350) syringe 125 mL 1 Lactated Ringer's (LR) bolus 1,000 mL 1 Lactated Ringer's (LR) infusion 2 metoprolol tartrate (LOPRESS OR) immediate release tablet 25 mg 1 07/27/2023 ondansetron (ZOFRAN) injection 4 mg 1 07/27 ondansetron ODT (ZOFRAN-ODT) disintegrating tablet 4 mg 1 07/27/2023 pantoprazole (PROTONIX) 40 m g in sodium chloride 0.9% 10 mL IV Syringe 1 07/27/2023 perflutren protein-a (OPTISO N) 3 mL in sodium chloride 0.9% 8 mL syringe 1 07/27/2023 sodium chloride 0.9% bolus 500 mL 1 023 sodium chloride 0.9% flush 0.5-20 mL 2 07/15 Diet Count Last Ordered Date First Orde red Date ADULT DISCHARGE DIET 1 07/31/2023 Nursing Count Last Ordered Date First Orde red Date DISCHARGE ACTIVITY 1 07/31/2023 FOLLOW UP WITH ESTABLISHED PROVIDER 3 07/31 NURSING COMMUNICATION 1 07/27/2023 TELEMETRY MONITORING 1 07/27/2023 Consult Count Last Ordered Date First Orde red Date IP CONSULT TO NEUROSURGERY 1 07/28/2023 IP CONSULT TO CARDIOLOGY 1 07/27/2023 IP CONSULT TO GASTROENTEROLOGY 1 07/27/2023 Admission Count Last Ordered Date First Orde red Date ADMIT TO INPATIENT 1 07/27/2023 Discharge Count Last Ordered Date First Orde red Date DISCHARGE PATIENT 1 07/31/2023 CORE MEASURES Count Last Ordered Date First Ord ered Date REASON FOR NO VTE PROPHYLAXI S - HOSPITAL ADMISSION - MEDICATIONS 2 07/31/2023 07/27/2023 Case Request Count Last Ordered Date First Orde red Date CASE REQUEST GI 1 07/27/2023 documented in this encounter Care Teams County Historian Relationship Specialty Start Date End Date Radha Lozada MD [facility] [place] [address] PCP - General Family Medicine 06/25/23 04/29/24 Kali Reddy MD Consulting Physician Cardiology 05/19/19 Keaton Lynn MD [id number] [facility] [address] [place] [address] Consulting Physician Cardiothoracic Surgery 06/07/23 documented as of this encounter
--- OUTSIDE RECORDS SUMMARY | 2024-09-29 22:09 | XMS_ITS | Encounter Summary ---
Author Organization 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 No Wound Information: Surgical wound assessment. REMOVE DERMABOND DRESSING FROM STERNUM 10-14 DAYS POST-OP. Please call Dr. Lynn's office for any post-op concerns, Requested Start of Care Date: Other Comment: Within 48 hours of discharge Physician to follow patient's care (the person listed here will be responsible for signing ongoing orders): Referring Provider I attest that I or another qualified licensed provider saw the patient 90 days prior to or 30 days post admission and this face to face encounter meets the necessary Home Health requirements. The face to face encounter occurred on (date): 07/12/2023 The encounter with the patient was in whole, or in part, for the following medical condition, which is the primary reason for home health care. (List medical condition): Dilated Ascending Aorta-S/P Aortic Root Replacement, Tissue AVR I certify that, based on my findings, the following services are medically necessary skilled home health services: Wound/Ostomy Care Clinical findings that support the need for home care: Medical condition requiring skilled assessment/education, Wound requiring care, assessment, and instruction, Lack of knowledge regarding medications, requires education and assessment I certify that my clinical findings support patient's homebound status. Homebound criteria met because: Poor endurance, Requires assistance of another to leave home safely, Pain and impaired mobility post-op Reason for Visit * Auth/Cert (Routine) Specialty Diagnoses / Procedures Referred By Bette t Referred To Contact Diagnoses Aneurysm of ascending aorta without rupture (HCC) Aneurysm of ascending aorta without rupture (HCC) [I71.21] Procedures MO -AORT GRF W/CARD BYP F/AORTIC DS OTH/THN DSJ REPLACEMENT OF ASCENDING AORTA Referral ID Status Reason Start Date Expiration Date Visits Re quested Visits Authorized [id number] 1 1 Encounter Details Date Type Department Care Team (Latest Contact Info) Description 07/10/2023 9:33 AM CDT - 07/14/2023 5:25 PM CDT Hospital Encounter [facility] [address] [place] [address] Keaton Lynn MD [address] [facility] [address] [place] [address] Aneurysm of ascending aorta without rupture (HCC) (Primary Dx); 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 More than 4 times per year 07/12/2023 Do you belong to any clubs o r organizations such as gnosticist groups, unions, fraternal or athletic groups, or [...] slept in a chcf (including now)? 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 Gender Identity Not on file Sexual Orientation Not on file documented as of this encounter Last Filed Vital Signs Vital Sign Reading Time Taken Comments Blood Pressure 114/63 07/14/2023 12:30 PM CDT Pulse 82 07/14/2023 12:30 PM CDT Temperature 37.3 ??C (99.1 ??F) 07/14/2023 1 2:28 PM CDT Respiratory Rate 18 07/14/2023 12:2 8 PM CDT Oxygen Saturation 94% 07/14/2023 12: 30 PM CDT Inhaled Oxygen Concentration - - Weight 113.5 kg (250 lb 3.6 oz) 023 10:13 AM CDT Height 182.9 cm (6') 07/10/2023 9:52 AM CDT Body Mass Index 33.94 07/10/2023 9:52 AM CDT documented in this encounter Discharge Summaries * Frederic Rushing PA - 07/14/2023 12:12 PM CDT DISCHARGE SUMMARY Patient Name: Judi Nolasco Attending Provider: Keaton Lynn MD Admission Date: 07/10/2023 Discharge Date: 07/14/2023 Principal Problem(s) Aortic root, ascending, and proximal arch aneurysm Severe aortic valve regurgitation Secondary Problems Hypertension Obstructive sleep apnea Acute blood loss anemia due to surgery Thrombocytopenia Hyponatremia Hypophosphatemia HPI Judi Nolasco is a 77 y.o. male presenting for surgical evaluation of ascending aortic aneurysm. This was initially found incidentally on imaging in the setting of a shoulder injury in 2016. Since then he has had annual surveillance chest CT scans with most recent 06/06/2023 measuring 5.2 cm. This size was noted on scans dating back to 2016, however he presents today due to relatively recent guideline changes regarding size for aortic repair. He endorses intermittent chest pain with exertion which he describes is primarily with heavy lifting. States his machine or machinery mechanic advised that he not lift more than 35 lbs, states he has been compliant with this recently. He is otherwise asymptomatic. Denies shortness of breath, leg swelling, palpitations. 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 Hospital Course The patient was taken to the operating room by Dr. Lynn and underwent tissue composite root replacement via modified Bentall, hemiarch replacement, and sternal plating on 07/10/23 . Post-operatively he was transferred to the CVR on mechanical ventilation and without vasopressor support . He was uneventfully extubated to nasal cannula oxygen shortly after arrival to the CVR. The patient transferred to the PCU on POD1 and continued to progress. He was evaluated and treated by both physical therapy and occupational therapy to help regain strength and mobility after surgery. His surgical drains were removed without incident and he was weaned off oxygen therapy. His vital signs remained stable as medications were titrated. No significant arrhythmias were detected during the hospitalization. OnPOD4 the patient was ambulating with minimal assistance, pain was well controlled, breathing was stable on room air, and his surgical sites were intact and healing. Thus, he was ready for discharge from the hospital. Operative Procedures Tissue composite root replacement via modified Bentall, hemiarch replacement, and sternal plating on 07/10/23 Discharge Vitals & Physical Exam BP 116/85 (BP Location: Left arm, Patient Position: Sitting) Pulse 85 Temp 36.7 ??C (98.1 ??F) (Oral) Resp 18 Ht 182.9 cm (6') Wt 113.5 kg (250 lb 3.6 oz) SpO2 92% BMI 33.94 kg/m?? Gen: A&O, NAD Lungs: slightly diminished breath sounds bilaterally Heart: regular rate and rhythm Ext: warm, mild lower extremity edema Skin: sternal incision c/d/i Discharge Disposition The patient was discharged to home in stable condition. Discharge Medications Current Medications TAKE these medications aspirin 81 mg enteric coated tablet Take 1 tablet (81 mg total) by mouth daily Start taking on: July 15, 2023 atorvastatin 40 mg tablet Take 1 tablet by mouth once daily Commonly known as: LIPITOR furosemide 20 mg tablet Take 1 tablet (20 mg total) by mouth daily for 7 days Commonly known as: LASIX HYDROcodone-acetaminophen 5-325 mg per tablet Take 1 tablet by mouth every 4 (four) hours as needed for pain For: pain Commonly known as: NORCO metoprolol tartrate 25 mg immediate release tablet Take 0.5 tablets (12.5 mg total) by mouth 2 (two) times a day Commonly known as: LOPRESSOR potassium chloride ER 10 mEq CR tablet Take 1 tablet/capsule (10 mEq total) by mouth daily for 7 days Commonly known as: KLOR-CON TylenoL 325 mg tablet Take 2 tablets (650 mg total) by mouth every 6 (six) hours as needed for pain Generic drug: acetaminophen Discharge Instructions Activity Instructions Post-Discharge Activity: No strenuous exercise No strenuous exercise for 8 weeks. Post-Discharge Activity: No water submersion for 6 weeks - including baths, hot tubs, whirlpools, swimming pools Post-Discharge Activity: Start Cardiac Rehab after 4 weeks Post-Discharge Activity: Do not drive car Do not drive a car for 4 weeks. Post-Discharge Activity: May shower daily Please shower daily DO NOT apply any cream to incisions Dermabond dressing on sternum should be gently removed 10-14 days after surgery Diet Instructions Eating a high protein diet can aid in wound healing. Protein rich foods include meats, dairy products, beans, nuts/seeds, and eggs. You can also drink protein shakes like Ensure High Protein, Ensure Max, Premier Protein, or a homemade protein shake once daily to help increase protein intake. Aim for 100 grams of protein per day during the healing process. Refer to the high protein diet handout that was given to you at discharge for a list of protein foods. Your registered dietitian recommends continuing the nutrition supplement you enjoyed during your stay at [facility]. Some examples of nutrition supplements include Glucerna, Ensure, Boost, or a homemade high protein and/or calorie drink. It is recommended to continue drinking two supplements each day for 30 days. Other Instructions Ambulatory referral to Home Health Service Line: Home Health Primary disciplines requested: Nursing Home Home Health Services: Disease and Medication Management Wound/Ostomy Care Does the patient have a wound vac?: No Wound Information: Surgical wound assessment. REMOVE DERMABOND DRESSING FROM STERNUM 10-14 DAYS POST-OP. Please call Dr. Lynn's office for any post-op concerns, Requested Start of Care Date: Other Comment: Within 48 hours of discharge Physician to follow patient's care (the person listed here will be responsible for signing ongoing orders): Referring Provider I attest that I or another qualified licensed provider saw the patient 90 days prior to or 30 days post admission and this face to face encounter meets the necessary Home Health requirements. The face to face encounter occurred on (date): 07/12/2023 The encounter with the patient was in whole, or in part, for the following medical condition, whichis the primary reason for home health care. (List medical condition): Dilated Ascending Aorta-S/P Aortic Root Replacement, Tissue AVR I certify that, based on my findings, the following services are medically necessary skilled home health services: Wound/Ostomy Care Clinical findings that support the need for home care: Medical condition requiring skilled assessment/education Wound requiring care, assessment, and instruction Lack of knowledge regarding medications, requires education and assessment I certify that my clinical findings support patient's homebound status. Homebound criteria met because: Poor endurance Requires assistance of another to leave home safely Pain and impaired mobility post-op Call surgeon for: Breathing Problems --Difficultly breathing at rest, with activity, or at night. --Increased cough. Call surgeon for: Change in drainage or if drainage starts again when none was present Call surgeon for: Check incision and call provider for the following: --Any redness, swelling, red streaks around incision/drain, or IV sites or change in appearance or abnormal bleeding. Call surgeon for: General Problems Chest pain, heaviness, or tightness Chills/fever over 100.4 degrees F Swelling in ankles, legs, or belly --Sweating, weakness, or fainting. --Persistent nausea or vomiting. --Persistent or increasing pain not resolved with medication. --Burning, pain, or urgency with urination. --Weight gain of more than 2 lbs over 2 days. Post-Discharge Activity: Lifting Restrictions (Specify) Please avoid strenuous activity or lifting over 10# for 8 weeks Maximum Weigth to Lift: 10 Pounds Special Instructions - Medication Safety (see comment) Keep a list of all medications you take including medications you can purchase without a prescription, like vitamins and herbal products. Carry this list with you at all times in case of emergency. Give the list to your primary care doctor. Update the list whenever a medication is discontinued, a new medication is added, or a medication dose has changed. Special Instructions: Incentive spirometer Please use your Incentive spirometer at least 4 times daily for 2 weeks Please do 8-10 breaths each time Follow-up Future Appointments Date Time Provider Department Center 08/16/2023 9:45 AM Keaton Lynn MD [id number] PSA 05/21/2024 9:15 AM [facility] [address] [facility] [address] [facility] Main 05/21/2024 10:30 AM Kali Reddy MD [facility] [address] Specialty Contact Information for Follow-ups [facility] Home Care Services Specialty: Home Health and Hospice [address] [place] [address] Next Steps: Follow up Questions: Service Line: Home Health Primary disciplines requested: Nursing Home Home Health Services: Disease and Medication Management Wound/Ostomy Care Does the patient have a wound vac?: No Wound Information: Surgical wound assessment. REMOVE DERMABOND DRESSING FROM STERNUM 10-14 DAYS POST-OP. Please call Dr. Lynn's office for any post-op concerns, Requested Start of Care Date: Other Comment: Within 48 hours of discharge Physician to follow patient's care (the person listed here will be responsible for signing ongoing orders): Referring Provider I attest that I or another qualified licensed provider saw the patient 90 days prior to or 30 days post admission and this face to face encounter meets the necessary Home Health requirements. The face to face encounter occurred on (date): 07/12/2023 The encounter with the patient was in whole, or in part, for the following medical condition, whichis the primary reason for home health care. (List medical condition): Dilated Ascending Aorta-S/P Aortic Root Replacement, Tissue AVR I certify that, based on my findings, the following services are medically necessary skilled home health services: Wound/Ostomy Care Clinical findings that support the need for home care: Medical condition requiring skilled assessment/education Wound requiring care, assessment, and instruction Lack of knowledge regarding medications, requires education and assessment I certify that my clinical findings support patient's homebound status. Homebound criteria met because: Poor endurance Requires assistance of another to leave home safely Pain and impaired mobility post-op Referral Status: External - All Visits Complete [facility] [address] [place] [id number] Next Steps: Follow up Questions: Please select the performing region: External Order To loc/pos: [facility] Select a phase: Phase 2 # of visits: 1 Referral Status: Ready for Initial Scheduling Cosigned by Keaton Lynn MD at 07/19/2023 8:21 AM CDT documented in this encounter Discharge Instructions * Discharge Instr - Diet* Jaycee Pearson RD - 07/11/2023 12:34 PM CDT Eating a high protein diet can aid in wound healing. Protein rich foods include meats, dairy products, beans, nuts/seeds, and eggs. You can also drink protein shakes like Ensure High Protein, Ensure Max, Premier Protein, or a homemade protein shake once daily to help increase protein intake. Aim for 100 grams of protein per day during the healing process. Refer to the high protein diet handout that was given to you at discharge for a list of protein foods. Your registered dietitian recommends continuing the nutrition supplement you enjoyed during your stay at [facility]. Some examples of nutrition supplements include Glucerna, Ensure, Boost, or a homemade high protein and/or calorie drink. It is recommended to continue drinking two supplements each day for 30 days. documented in this encounter Medications at Time of Discharge acetaminophen (TylenoL) 325 mg tablet Take 2 tablets (650 mg total) by mouth every 6 (six) hours as needed for pain aspirin 81 mg enteric coated tablet Take 1 tablet (81 mg total) by mouth daily 30 tablet 11 07/15/2023 potassium chloride ER (KLOR-CON) 10 mEq CR tablet Take 1 tablet/capsul e (10 mEq total) by mouth daily for 7 days 7 tablet/capsule 07/14/2023 07/21/2023 atorvastatin (LIPITOR) 40 mg tablet Take 1 tablet by mouth once daily 90 tablet 05/16/2023 07/25/2023 furosemide (LASIX) 20 mg tablet Take 1 tablet (20 mg total) by mouth daily for 7 days 7 tablet 07/14/2023 07/27/2023 HYDROcodone-aceta minophen (NORCO) 5-325 mg per tabletIndications :Pain Take 1 tablet by mouth every 4 (four) hours as needed for pain 30 tablet 07/14/2023 07/27/2023 metoprolol tartrate (LOPRESSOR) 25 mg immediate release tablet Take 0.5 tablets (12.5 mg total) by mouth 2 (two) times a day 30 tablet 1 07/14/2023 07/25/2023 documented as of this encounter Ordered Prescriptions Prescription Sig Dispense Quantity Refills Last Filled Start Date End Date aspirin 81 mg enteric coated tablet Take 1 tablet (81 mg total) by mouth daily 30 tablet 11 07/15/2023 HYDROcodone-acetam inophen (NORCO) 5-325 mg per tabletIndications: Pain Take 1 tablet by mouth every 4 (four) hours as needed for pain 30 tablet 07/14/2023 3 potassium chloride ER (KLOR-CON) 10 mEq CR tablet Take 1 tablet/capsul e (10 mEq total) by mouth daily for 7 days 7 tablet/capsule 07/14/2023 3 furosemide (LASIX) 20 mg tablet Take 1 tablet (20 mg total) by mouth daily for 7 days 7 tablet 07/14/2023 3 metoprolol tartrate (LOPRESSOR) 25 mg immediate release tablet Take 0.5 tablets (12.5 mg total) by mouth 2 (two) times a day 30 tablet 1 07/14/2023 3 documented in this encounter Discharge Disposition Disposition Code Departure Means Destination Comment s Discharge to home, home health skilled care documented in this encounter Progress Notes * Sarahy Rhaman PA - 07/13/2023 4:23 PM CDT Cardiothoracic Surgery Daily Progress SUBJECTIVE Chief Complaint: ascending, root, and proximal aortic arch aneurysm and severe aortic regurgitation; s/p tissue composite root replacement via modified bentall, hemiarch replacement, and sternal plating on 07/10/23 Interval History: Patient had some nausea overnight and complains constipation, otherwise doing ok,remains on 2L NC. OBJECTIVE Vitals: Most Recent: Vitals: 07/13/23 1550 BP: 131/85 Pulse: 87 Resp: Temp: SpO2: 93% 24hr Min/Max: Temp Min: 36.7 ??C (98 ??F) Max: 38.5 ??C (101.3 ??F) Pulse Min: 76 Max: 87 BP Min: 103/69 Max: 145/83 Resp Min: 16 Max: 20 SpO2 Min: 88 % Max: 93 % Cardiac Rhythm: sinus I/O: Date 07/12/23 07 - 07/13/23 0659 07/13/23699 - 07/14/23 0659 Shift 8702-1503 7157-6791 24 Hour Total 7360-3159 4540-9674 24 Hour Total INTAKE P.O. 500 500 120 120 Shift Total(mL/kg) 500(4.5) 500(4.5) 120(1.1) 120(1.1) OUTPUT Urine(mL/kg/hr) 200(0.1) 200(0.1) Chest Tube 40 80 120 Shift Total(mL/kg) 40(0.4) 280(2.5) 320(2.9) NET -40 220 180 120 120 Weight (kg) 111.2 111.2 111.2 111.2 111.2 111.2 Physical Exam: General: A&O, sitting up in chair, nad Pulm: BS diminished Card: RRR Ext: mild le edema Skin: sternal incision c/d/i Lab Review: Recent Labs Lab Units 07/13/23 0049 WBC K/cumm 10.4* HEMOGLOBIN g/dL 10.4* HEMATOCRIT % 30.1* PLATELETS K/cumm 115* Recent Labs Lab Units 07/13/23 0049 SODIUM mmol/L 132* POTASSIUM PLASMA mmol/L 3.8 CHLORIDE mmol/L 97 CO2 mmol/L 26 ANIONGAP mmol/L 9 BUN SERUM mg/dL 17 CREATININE mg/dL 0.87 GLUCOSE mg/dL 128 CALCIUM mg/dL 8.5 Recent Labs Lab Units 07/10/23 1626 APTT sec 30 INR 1.25* Radiology/Diagnostic Review: CXR IMPRESSION: Comparison is made to 07/04/2023. Right internal jugular catheter tip overlies the superior vena cava. Mediastinal wires and plates unchanged in position. There is a drain overlying the mediastinum. There are small lung volumes a small bilateral pleural effusions and bibasilar atelectasis. The heart size is stable. Scheduled Medications: acetaminophen, 1,000 mg, oral, Q6H GINNA aspirin, 81 mg, oral, Daily atorvastatin, 40 mg, oral, Nightly docusate sodium, 100 mg, oral, BID furosemide, 20 mg, intravenous, BID DIURETIC heparin, 5,000 Units, subcutaneous, Q8H GINNA metoprolol tartrate, 12.5 mg, oral, BID potassium chloride ER, 10 mEq, oral, BID DIURETIC senna, 1 tablet, oral, BID sodium chloride 0.9%, 0.5-20 mL, intra-catheter, Q8H GINNA ASSESSMENT - ascending, root, and proximal aortic arch aneurysm and severe aortic regurgitation; s/p tissue composite root replacement via modified bentall, hemiarch replacement, and sternal plating on 07/10/23 - HTN - MONIKA, cpap compliant - acute blood loss anemia due to surgery, expected - thrombocytopenia - hyponatremia - hypophosphatemia PLAN - aspirin for antiplatelet therapy - metoprolol 12.5 mg bid for BP/HR control - continue lipitor - chest tubes and epicardial pacing wires removed without issue - diurese with lasix 20 mg IV bid - continue O2 support, wean as tolerated. Encourage IS/ambulation - tylenol and prn Oxycodone for pain control - continue current bowel regimen. Try miralax and suppository as well. - replace phos - DVT proph: SQ heparin - PT/OT Discussed with CARLY Robles 07/13/2023 * Rita Woods, PT - 07/13/2023 2:38 PM CDT Physical Therapy 07/13/23 1426 PT Last Visit Session Type Treatment PT Received On 07/13/23 Safe Environment Arm band checked;Patient found sitting in chair;Gait belt utilized for all out of bed mobility Subjective Agreeable to Therapy Family/Caregiver Present No Precautions Precautions Bed/Chair Alarm;Fall risk;Cardiac sternal Pain Assessment Pain Score 0 - No pain Clinical Progression Not changed Cognition Arousal/Alertness Alert Following Commands Follows all commands and directions without difficulty Compliance/Behavior Easy to engage Seated Seated-Exercises Lower extremity Equipment Cuff weight (5lb) Reps/Sets 10x2 Seated-Exercise Comments hip flexion, LAQ, and heel/toe raises Standing Standing-Exercise Comments Pt performed sit to stands 5 repsx2 on raised surface no UE support Bed Mobility 1 Bed Mobility Comments 1 NT-pt in chair Transfer 1 Trials/Comments 1 Pt sit to and from stand from recliner SBA w/ cues to maintain sternal precautions/hand placement Ambulation 1 Distance (ft) 1 75x2 Surface 1 Level tile Device 1 Wheeled walker Assistance 1 Standby Assist Gait: Requires verbal cues to 1 Use assistive device safely;Pace activity;Utilize pursed lip breathing Gait Deviations 1 Shayy - decreased;Shuffling;Step length - decreased Stairs Stair Comments Pt ascend/descend 4 steps w/ unilateral rail minimal assist. Other Comments Other PT Comments Pt resting VS: BP-114/70, HR-77bpm, and O2 sat 93% on 2L/min O2. Pt O2 sat following gait training 88% recovering to 90% w/ 15 sec seated rest. Pt O2 sat following stair training 85% requiring increase to 3L/min to recover following 45 sec seated rest. Pt returned to 2L/min O2. Ptmax HR-93bpm and max BP-161/86. Pt returns to baseline w/ 5 min seated rest. Pt requiring increasedtime to complete all activities w/ seated rest between each activity for VS recovery as needed. Pt is SBA w/ cues for gait and transfers, requiring minimal assist on steps for force production and balance. Pt states he has a ramped entrance available to enter home, pt educated to use ramp as pt w/ d ecreasing O2 sat and assist required for stair climbing. Safe Environment End of Therapy Session Safe Environment End of Therapy Session Patient left in recliner;Chair alarm in place and activated;Call light within reach;Overbed table within reach Assessment Problem List Gait deviations;Decreased strength;Decreased endurance;Impaired balance;Decreased mobility Plan Plan Continue with current plan;If this is the last note, consider this the discharge summary Recommendation/Plan PT Recommendation/Plan (S) Home with 24 hour supervision;Home Health PT PT Frequency during current admission 3-5x/wk Treatment/Interventions during current admission Bed mobility;Functional transfer training;Gait training;Functional activity;Stair training;Therapeutic exercise Progress during current admission Progressing toward goals Education: Patient has been educated on the role of PT, safety , precautions, mobility training, stairs, and home exercise program. Education completed via explanation and demonstration. Patient verbalized understanding and needs ongoing reinforcement Multi-Disciplinary Problems (from Physical Therapy) Active Problems Problem: PT [facility] [place] Date: 07/11/23 Goal Start Date Expected End Date End Date PT [facility] 07/11/23 08/03/23 -- Goal Details: Independent bed mobility and transfers adhering to sternal precautions 100% of the time. Goal Start Date Expected End Date End Date PT [facility] 07/11/23 08/03/23 -- Goal Details: Pt amb 360ft with least restrictive device level surfaces mod indep or indep. Goal Start Date Expected End Date End Date PT [facility] 07/11/23 08/03/23 -- Goal Details: Pt amb up/down curb step mod indep or indep and up/down 3 steps with single HR mod indep or indep with good dyn stand balance and/or low fall risk on Villarreal balance scale. Goal Start Date Expected End Date End Date PT [facility] 07/11/23 08/03/23 -- Goal Details: Pt to apply sternal precautions independently without cueing from PT and display goodknowledge of cardiac HEP for optimal healing and functional recovery. * Cyrus Mackey EP-C - 07/13/2023 9:50 AM CDT Inpatient Cardiac Rehab Education Patient Information Patient Name: Judi Nolasco : 1945 Room/Bed: [id number] Insurance: Medicare Traditional + [facility] Progress Note Health Information Provider: JOSSELINE Alejandra Date: 07/13/2023 Referring Diagnosis for Cardiac Rehab - S/P Aortic Valve Replacement Education Provided Explained my role as a Cardiac Rehab Navigator (CRN). Provided Cardiac Rehab education to patient. Family was not present. Patient was provided with Cardiac Rehab education folder as well as a [facility] Heart Education booklet. Risk Factors: HTN, HLD, Fam hx Discussed and provided resources for managing the above risk factors, as well as managing stress/anxiety/depression. - Briefly discussed cardiac medications, and the importance of medication adherence. Advised patient to consult their nurse, physician, and/or pharmacist if they have any questions about their medications. - Briefly discussed the benefit of lifestyle modifications such as diet (sodium and saturated fats)and exercise. Advised patient to consult their equipment lead, nurse, and/or physician if they have any questions about their diet/nutrition. Cardiac Rehab: Gave patient options of facilities for Outpatient Cardiac Rehab (OCR) in their community. Explained OCR program. Patient expressed knowledge towards [facility] [place] [place] Stressed the importance/benefits of incorporating regular aerobic exercise into their lifestyle. I explained how this would assist in their recovery post- discharge, and help maintain/improve their cardiovascular health going forward. Advised patient to follow physician instructions/restrictions as prescribed post-discharge. Recommended pt begin some light walking at home once discharged. Exercise Education: Explained the importance of trying to gradually/safely increase exercise tolerance. Educated patient on working towards eventually trying to reach the [place] [employer] recommendations in regards to exercise: 150+ minutes/week of light to moderate-intensity aerobic exercise, or 75+ minutes/ week of vigorous-intensity aerobic exercise. I explained how this would help to improve cardiovascular function, as well as quality of life. - Explained safe exercise intensities with patient, discussing how using the talk test as a frameof reference in regards to preferable intensity level for general population. - Suggested that patient avoid strenuous exercise/exertion outside if the weather is under 40 degrees, or over 85 degrees. Explained the physiological reasoning for this suggestion. - Educated patient on the signs/symptoms of over-exertion: SOB, chest discomfort, musculoskeletal pain, abnormal fatigue. Explained when it would be appropriate to call [facility]st's office, go to the ER, or call 911. Insurance Coverage: Briefly explained general insurance coverage for OCR, but assured patient that OCR facility will usually call insurance and inform patient of more of an approximate coverage. Post-Discharge: Explained process between discharge from hospital, and getting set up in an OCR program - follow upwith [facility], CRN follow up calls, OCR program contact. Conclusion Patient seems likely to participate in OCR. Reassured patient of importance and health care provider support of OCR. Patient verbalized understanding of education, and all questions were answered to the best of my ability. Will complete order for OCR to be sent to [facility]. Thank you for allowing us to lead recreation assistant in the care of this patient, please don't hesitate to contact the Cardiac Rehab Navigator office with any questions: [phone]. * Monie Velasquez COTA - 07/13/2023 6:07 AM CDT Occupational Therapy 07/13/23 0607 General Session Type Treatment OT Received On 07/13/23 Safe Environment Arm band checked;Patient found sitting in chair;Gait belt utilized for all out of bed mobility Subjective Agreeable to Therapy Subjective Comment I slept ok Family/Caregiver Present No Precautions Precautions Bed/Chair Alarm;Drains;Cardiac sternal;Fall risk;Hearing Pain Assessment Pain Score 5 - Moderate pain Pain Type Surgical pain Clinical Progression Gradually improving (4/10 at the end of the session) Pain Interventions RN Notified Grooming Grooming: Where assessed Standing at sink Grooming: Level of assistance Standby Assist Grooming: Assistance with Teeth care LE Dressing LE Dressing: Where assessed Chair;Sitting LE Dressing: Level of assistance Maximum Assist LE Dressing: Assistance with Don/doff R sock;Don/doff L sock Toileting Toileting: Where assessed Toilet Toileting: Level of assistance Standby Assist (urinate) Transfer 1 Transfer Type 1 To and from Transfer to 1 Sit;Stand Transfer Device 1 Wheeled walker Transfer Level of Assistance 1 Standby Assist (verbal cues for hand placement, pt wanting to pull on his walker to stand) Cognition Orientation Oriented X4 (person, place, time, situation) Additional Activities Additional Activities Comments Ambulation to the bathroom and a short walk within hallway to simulate house hold mobility with WW minimal assist and 3 standing rest breaks, pt with shuffle gait Activity Tolerance Endurance Tolerates 30 min activity with multiple rests Other Comments Comments vitals pre activity BP 125/84, HR 82, SpO2 92 on 2 L of oxygen. post activity BP 122/83, HR 88, SpO2 94 Safe Environment End of Therapy Session Safe Environment End of Therapy Session Patient left in recliner;Call light within reach;Overbed table within reach;Chair alarm in place and activated Assessment Prognosis Good Problem List Decreased endurance;Decreased balance;Decreased functional mobility;Decreased ADL independence;Decreased IADL independence Barriers to Discharge Current Mobility Status Plan Plan Continue with current plan;If this is the last note, consider this the discharge summary Recommendation/Plan OT Recommendation Home with 24 hour supervision OT Frequency during current admission 3-5x/wk Treatment/Interventions during current admission ADL/IADL retraining;Balance Training;Endurance training;Functional activity;Functional mobility training;Functional transfer training;Parent/caregivertraining and education;Strengthening;Therapeutic activity;Therapeutic exercise Multi-Disciplinary Problems (from Occupational Therapy) Active Problems Problem: OT Misc Start Date: 07/11/23 Goal Start Date Expected End Date End Date Pt will complete toileting tasks and toilet transfer modified independent 07/11/23 07/25/23 -- Goal Start Date Expected End Date End Date Pt will complete LB dressing modified independent 07/11/23 07/25/23 -- Goal Start Date Expected End Date End Date Pt will complete grooming tasks at sink independently 07/11/23 07/25/23 -- Goal Start Date Expected End Date End Date Pt will complete object retrieval from varying heights modified independent to simulate ADLs and IADLs 07/11/23 07/25/23 -- Education: Patient has been educated on the role of OT, safety, precautions, ADL training, mobilitytraining, home exercise program, body mechanics, energy conservation, and use of adaptive equipment/DME. Education completed via verbal instruction and return demonstration. 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 Doing ok today, painful but says meds are helping. Remains on 2L NC. Ambulated in hallways with therapy. OBJECTIVE Vitals: Most Recent: Vitals: 07/12/23 0934 BP: 123/75 Pulse: 77 Resp: Temp: SpO2: 24hr Min/Max: Temp Min: 36.3 ??C (97.3 ??F) Max: 38.8 ??C (101.8 ??F) Pulse Min: 75 Max: 91 BP Min: 100/69 Max: 140/95 Resp Min: 18 Max: 27 SpO2 Min: 88 % Max: 100 % Cardiac Rhythm: sinus I/O: Date 07/11/23699 - 07/12/23 0659 07/12/23 07 - 07/13/23 0659 Shift [id number] 8937-3893 24 Hour Total 7302-6792 0250-6787 24 Hour Total INTAKE P.O. 700 700 Shift Total(mL/kg) 700(6.3) 700(6.3) OUTPUT Urine(mL/kg/hr) 235(0.2) 325(0.2) 560(0.2) Chest Tube 250 260 510 Shift Total(mL/kg) 485(4.4) 585(5.3) 1070(9.6) NET -485 115 -370 Weight (kg) 111.2 111.2 111.2 111.2 111.2 111.2 Physical Exam: General: A&O, sitting up in chair, nad Pulm: BS diminished, mild rales at bases Card: RRR Ext: mild le edema Skin: sternal incision c/d/i Lab Review: Recent Labs Lab Units 07/12/23 0025 WBC K/cumm 12.0* HEMOGLOBIN g/dL 11.0* HEMATOCRIT % 32.8* PLATELETS K/cumm 129* Recent Labs Lab Units 07/12/23 1207 07/12/23 0820 07/12/23 0025 SODIUM mmol/L -- -- 133* POTASSIUM PLASMA mmol/L -- -- 4.2 CHLORIDE mmol/L -- -- 98 CO2 mmol/L -- -- 25 ANIONGAP mmol/L -- -- 10 BUN SERUM mg/dL -- -- 20 CREATININE mg/dL -- -- 1.02 GLUCOSE mg/dL -- -- 119 POC GLUCOSE MONITOR mg/dL 105 < > -- CALCIUM mg/dL -- -- 8.6 < > = values in this interval not displayed. Recent Labs Lab Units 07/10/23 1626 APTT sec 30 INR 1.25* Radiology/Diagnostic Review: Scheduled Medications: acetaminophen, 1,000 mg, oral, Q6H GINNA aspirin, 81 mg, oral, Daily atorvastatin, 40 mg, oral, Nightly docusate sodium, 100 mg, oral, BID heparin, 5,000 Units, subcutaneous, Q8H GINNA metoprolol tartrate, 6.25 mg, oral, BID senna, 1 tablet, oral, BID sodium chloride 0.9%, 0.5-20 mL, intra-catheter, Q8H [facility] ASSESSMENT - ascending, root, and proximal aortic arch aneurysm and severe aortic regurgitation; s/p tissue composite root replacement via modified bentall, hemiarch replacement, and sternal plating on 07/10/23 - HTN - MONIKA, cpap compliant - acute blood loss anemia due to surgery, expected - thrombocytopenia - hyponatremia PLAN - aspirin for antiplatelet therapy - increase metoprolol to 12.5 mg bid - continue lipitor - chest tube output moderate, continue to monitor - lasix 20 mg IV - continue O2 support, wean as tolerated. Encourage IS/ambulation - tylenol and prn Oxycodone for pain control - D/c SSI - DVT proph: SQ heparin - PT/OT CARLY Francis 07/12/2023 * Devi Corrales, DPT - 07/12/2023 9:34 AM CDT Physical Therapy 07/12/23 0934 PT Last Visit Session Type Treatment PT Received On 07/12/23 Safe Environment Arm band checked;Patient found sitting in chair;Session completed bedside;Gait belt utilized for all out of bed mobility Subjective Agreeable to Therapy Subjective Comment I'm okay. I went on a walk down the hallway earlier Family/Caregiver Present No Precautions Precautions Bed/Chair Alarm;Drains;Cardiac sternal;Fall risk;Hearing Pain Assessment Pain Score 5 - Moderate pain Pain Type Surgical pain Pain Location Sternum Clinical Progression Not changed Pain Interventions RN Notified Cognition Cognition Comments he is cooperative, pleasant Arousal/Alertness Alert;Appropriate responses to stimuli Attention Span Appears intact Following Commands Follows one step commands without difficulty Compliance/Behavior Easy to engage Other Activities Other Activities Comments Patient reports he is having trouble taking deep breaths. Engaged patientin stacked breathing with education and demonstration, he is able to perform. Engaged patient in diaphragm breathing (c-spine in flexion, sitting in recliner) which he is able to perform with demonstration. Engaged patient in gentle deep breathing x3 reps. Time spent breathing activities: 8 minutes. Bed Mobility 1 Bed Mobility From 1 Edge of bed Bed Mobility Type 1 To Bed Mobility to 1 Side lying-right Level of Assistance 1 Moderate Assist Bed Mobility Comments 1 Provided demonstration and instructions for logroll technique, keeping shoulders in adduction/neutral. Head of bed elevated about 40 degrees. He requires assistance bringing his legs up onto bed. Bed Mobility 2 Bed Mobility From 2 Side lying-right Bed Mobility Type 2 To Bed Mobility to 2 Supine Level of Assistance 2 Independent Transfer 1 Transfer From 1 Sit Transfer Type 1 To and from Transfer to 1 Stand Transfer Device 1 Wheeled walker Transfer Level of Assistance 1 Standby Assist Trials/Comments 1 He asks, what should I grab? I demonstration and instructions for avoiding shoulder abduction and keeping shoulders adducted (close to your sides). Engaged in gentle push up/steadying with left arm on arm rest of recliner, done without shoulder abduction, to achieve stand. No physical assistance required. Transfers 2 Transfer From 2 Chair with arms Transfer Type 2 To Transfer to 2 Bed Transfer Device 2 Wheeled walker Transfer Level of Assistance 2 Standby Assist Other Comments Other PT Comments Pain is primary limitation. Also noted SpO2 drop to high 80s% and stay at 90-91%.I notified RN who increased his supplemental O2 rate to 3L/min. He will certainly benefit from ongoing PT. Safe Environment End of Therapy Session Safe Environment End of Therapy Session Patient left supine in bed;Call light within reach;Overbed table within reach Plan Plan Continue with current plan;If this is the last note, consider this the discharge summary Recommendation/Plan PT Recommendation/Plan (S) Home with family;Home with intermittent assist;Home Health PT PT Recommendation/Plan Comments (S) Bed mobility is primary limitation due to pain: he may require use of recliner at home until this improves, which he is agreeable to. He has a very high bed at home, with a step stool available. Progress during current admission Slow progress, decreased activity tolerance Education: Patient has been educated on the role of PT, safety , precautions, and mobility training. Education completed via explanation and demonstration. Patient verbalized understanding and demonstrated understanding Multi-Disciplinary Problems (from Physical Therapy) Active Problems Problem: PT [facility] [place] Date: 07/11/23 Goal Start Date Expected End Date End Date PT [facility] [place] 07/11/23 08/03/23 -- Goal Details: Independent bed mobility and transfers adhering to sternal precautions 100% of the time. Goal Start Date Expected End Date End Date PT [facility] 07/11/23 08/03/23 -- Goal Details: Pt amb 360ft with least restrictive device level surfaces mod indep or indep. Goal Start Date Expected End Date End Date PT [facility] 07/11/23 08/03/23 -- Goal Details: Pt amb up/down curb step mod indep or indep and up/down 3 steps with single HR mod indep or indep with good dyn stand balance and/or low fall risk on Villarreal balance scale. Goal Start Date Expected End Date End Date PT [facility] 07/11/23 08/03/23 -- Goal Details: Pt to apply sternal precautions independently without cueing from PT and display goodknowledge of cardiac HEP for optimal healing and functional recovery. Devi Corrales DPT * Mnoie Velasquez COTA - 07/12/2023 6:15 AM CDT Occupational Therapy 07/12/23 0615 General Session Type Treatment OT Received On 07/12/23 Safe Environment Arm band checked;Patient found sitting in chair;Gait belt utilized for all out of bed mobility Subjective Agreeable to Therapy Subjective Comment My butt is sore from sitting Family/Caregiver Present No Precautions Precautions Cardiac sternal;Drains;Fall risk Pain Assessment Pain Score 2 Pain Type Surgical pain Clinical Progression Not changed Grooming Grooming: Where assessed Standing at sink Grooming: Level of assistance Standby Assist Grooming: Assistance with Teeth care LE Dressing LE Dressing: Where assessed Sitting;Chair LE Dressing: Level of assistance Maximum Assist LE Dressing: Assistance with Don/doff R sock;Don/doff L sock Transfer 1 Transfer Type 1 To and from Transfer to 1 Sit;Commode-standard Transfer Device 1 Wheeled walker Transfer Level of Assistance 1 Minimum Assist (Rocking motion and force production of trunk) Exercise Tools Other Exercise Tool 1 pt participated in BUE HEP 2 # weight 15 rep in biceps curl, supination/pronation, shoulder flexion/extension, internal/external rotation to improve strength and endurance for daily functional activities Cognition Arousal/Alertness Alert Orientation Oriented X4 (person, place, time, situation) Following Commands Follows one step commands with repetition Compliance/Behavior Reluctant to participate Additional Activities Additional Activities Comments Ambulation to the bathroom and a short walk within hallway to simulate house hold mobility with WW minimal assist and 3 standing rest breaks Activity Tolerance Endurance Tolerates 30 min activity with multiple rests Other Comments Comments vitals pre activity HR 78, SpO2 98, BP 106/75,. Post activity HR 81, SpO2 98, BP 129/90 Safe Environment End of Therapy Session Safe Environment End of Therapy Session Patient left in chair;RN notified;Chair alarm in place and activated;Call light within reach;Overbed table within reach Assessment Prognosis Good Problem List Decreased endurance;Decreased balance;Decreased functional mobility;Decreased ADL independence;Decreased IADL independence Barriers to Discharge Current Mobility Status Plan Plan Continue with current plan;If this is the last note, consider this the discharge summary Recommendation/Plan OT Recommendation (S) Home with 24 hour supervision OT Frequency during current admission 3-5x/wk Treatment/Interventions during current admission ADL/IADL retraining;Balance Training;Endurance training;Functional activity;Functional mobility training;Functional transfer training;Parent/caregivertraining and education;Strengthening;Therapeutic activity;Therapeutic exercise Progress during current admission Progressing toward goals Multi-Disciplinary Problems (from Occupational Therapy) Active Problems Problem: OT Misc Start Date: 07/11/23 Goal Start Date Expected End Date End Date Pt will complete toileting tasks and toilet transfer modified independent 07/11/23 07/25/23 -- Goal Start Date Expected End Date End Date Pt will complete LB dressing modified independent 07/11/23 07/25/23 -- Goal Start Date Expected End Date End Date Pt will complete grooming tasks at sink independently 07/11/23 07/25/23 -- Goal Start Date Expected End Date End Date Pt will complete object retrieval from varying heights modified independent to simulate ADLs and IADLs 07/11/23 07/25/23 -- Education: Patient has been educated on the role of OT, safety, precautions, ADL training, mobilitytraining, home exercise program, body mechanics, energy conservation, and use of adaptive equipment/DME. Education completed via verbal instruction and return demonstration. Patient needs ongoing reinforcement Cosigned by Idalia Baxter OT at 07/12/2023 11:23 AM CDT * Jaycee Pearson RD - 07/11/2023 12:27 PM CDT Initial Nutrition Assessment Reason for Assessment: Initial Nutrition Assessment Encounter Date: 07/11/23 12:36 PM Nutrition Evaluation: Patient is a 77 y.o. male. Admit Dx: Aneurysm of ascending aorta without rupture (HCC) [I71.21]. Admitted on 07/10/2023, current LOS is 1 days. . Objective Past Medical History: Diagnosis Date Arthritis Arthritis; Comments: [facility] 10/19/2015 - HX OTHER MEDICAL ascending aortic aneurysm; Comments: [facility] 10/19/2015 - Hypertension Hypertension Sleep apnea Sleep apnea History reviewed. No pertinent surgical history. Anthropometrics Weight: 111.2 kg (245 lb 2.4 oz) Admission Weight : 111.2 kg Weight Change: -0.02 kg (-0.04 lbs) IBW/kg (Calculated) : 80.7 kg Height: 182.9 cm (6') Weight in (lb) to have BMI = 25: 183.9 BMI (Calculated): 33.2 Intake/Output Summary (Last 24 hours) at 07/11/2023 1236 Last data filed at 07/11/2023 1149 Gross per 24 hour Intake 4862 ml Output 3080 ml Net 1782 ml Medications and Lab Review: Scheduled Meds: acetaminophen, 1,000 mg, oral, Q6H GINNA aspirin, 81 mg, oral, Daily atorvastatin, 40 mg, oral, Nightly ceFAZolin, 2,000 mg, intravenous, Q8H docusate sodium, 100 mg, oral, BID heparin, 5,000 Units, subcutaneous, Q8H GINNA insulin lispro, 0-10 Units, subcutaneous, TID with meals insulin lispro, 0-5 Units, subcutaneous, Nightly [Held by Provider] metoprolol tartrate, 12.5 mg, oral, BID senna, 1 tablet, oral, BID sodium chloride 0.9%, 0.5-20 mL, intra-catheter, Q8H [facility] Continuous Infusions: sodium chloride 0.9%, 10 mL/hr PRN Meds: bisacodyL sodium chloride 0.9% dextrose OR dextrose glucagon HYDROmorphone magnesium sulfate ondansetron oxyCODONE polyethylene glycol potassium chloride potassium chloride ER potassium chloride ER sodium chloride 0.9% sodium chloride 0.9% Sodium Date Value Ref Range Status 07/11/2023 141 135 - 145 mmol/L Final Potassium, pl Date Value Ref Range Status 07/11/2023 4.6 3.3 - 4.9 mmol/L Final BUN Date Value Ref Range Status 07/11/2023 18 6 - 25 mg/dL Final Creatinine Date Value Ref Range Status 07/11/2023 0.87 0.80 - 1.30 mg/dL Final Phosphorus, pl Date Value Ref Range Status 07/11/2023 3.5 2.3 - 4.5 mg/dL Final Albumin Date Value Ref Range Status 07/11/2023 3.4 (L) 3.5 - 5.0 g/dL Final Magnesium Date Value Ref Range Status 07/11/2023 2.1 1.4 - 2.5 mg/dL Final Calcium Date Value Ref Range Status 07/11/2023 8.3 (L) 8.5 - 10.3 mg/dL Final Lab Results Component Value Date HGBA1C 5.2 07/10/2023 Nursing Assessment: Last BM Date: 07/09/23 Bowel Sounds (All Quadrants): Hypoactive Julse Scale Score: 19 Skin Integrity: Surgical incision Dietary Orders (From admission, onward) Start Ordered 07/11/23 2100 Bedtime snack At bedtime Comments: If bedtime BG is less than 100mg/dl, give patient a 15 gram carbohydrate snack. 07/11/23 0733 07/11/23 1700 Oral Nutrition Supplements Select Supplement: Ensure - Any Flavor With Breakfast and Dinner Question: Select Supplement: Answer: Ensure - Any Flavor 07/11/23 1021 07/11/23 0323 Adult Diet Restricted; 2 GM Sodium, Low Fat, Low Chol, Low Na; Consistent Carbohydrate Diet effective now Question Answer Comment ([facility]) Diet type Restricted Fat / Sodium Restriction: 2 GM Sodium Fat / Sodium Restriction: Low Fat, Low Chol, Low Na Diabetic: Consistent Carbohydrate 07/11/23 0322 Nutrition Needs Calculations: Calculated Energy Needs Using Equations Weight: 111.2 kg (245 lb 2.4 oz) Height: 182.9 cm (6') Minute Ventilation (L/min): 9.2 L/min Estimated Protein Needs Type of Weight Used for Estimated Protein : Current Protein Needs Based on g/k.9 Total Protein Estimated Needs (gm): 100.08 Kcal/kg Type of Weight Used for Estimated Kcals: Current Kcal/k Total Kcal/kg Estimated Needs : 2224 Wt Readings from Last 10 Encounters: 07/10/23 111.2 kg (245 lb 2.4 oz) 06/28/23 111.2 kg (245 lb 3.2 oz) 06/21/23 108.9 kg (240 lb) 06/06/23 110.2 kg (243 lb) 06/08/22 110.9 kg (244 lb 9.6 oz) 06/08/21 112.7 kg (248 lb 6.4 oz) 05/26/20 108.9 kg (240 lb) 05/26/19 109.3 kg (241 lb) 05/21/18 105.7 kg (233 lb) 05/24/17 108 kg (238 lb) ] Nutritional Needs and Diagnosis: Nutrition Diagnosis 1: Increased nutrient needs (protein) Related to: Recent surgery Evidenced by: Physical finding, Patient interview Impression: S/p Bio AVR with root replacement (07/10). Hx of HTN. A1C 5.2%. Pt reporting fair appetite. Denying recent changes in PO intakes prior to admissions. Weight trends between 240-245 lbs frompast year per documentation. Pt denying recent changes in weight. Currently on heart healthy, consistent carb diet. Pt denying questions related to diet at this time. Doesn't follow specific diet at home. Recommending increased protein to encourage wound healing post surgery. Recommendations listed below. Pt agreeable to Ensure BID. Added to supplement orders. Plan: Initiate supplement. Monitor PO intakes, diet-related questions, supplement tolerance, plan of care. Intervention and Monitoring: Goals: Oral intake to meet 75% estimated nutritional needs by next assessment, Tolerance of medicalfood supplement by next assessment Interventions: Medical food supplement, Follow up per policy Monitoring and Evaluation: Appetite, Labs, Plan of care, PO intake, Supplement tolerance Diet Instructions Eating a high protein diet can aid in wound healing. Protein rich foods include meats, dairy products, beans, nuts/seeds, and eggs. You can also drink protein shakes like Ensure High Protein, Ensure Max, Premier Protein, or a homemade protein shake once daily to help increase protein intake. Aim for 100 grams of protein per day during the healing process. Refer to the high protein diet handout that was given to you at discharge for a list of protein foods. Your registered dietitian recommends continuing the nutrition supplement you enjoyed during your stay at [facility]. Some examples of nutrition supplements include Glucerna, Ensure, Boost, or a homemade high protein and/or calorie drink. It is recommended to continue drinking two supplements each day for 30 days. Jaycee Pearson RD,LD * Kalen Rivera DNP - 07/11/2023 9:17 AM CDT Images from the original note were not included. [facility] Daily Progress Note- Patient: Judi Nolasco : 1945 Age: 77 y.o. male Admitting Physician: Keaton Lynn MD Marketing Services Vice President: Izabella Alfaro MD, [facility] Shift: [facility] AM Interval History: 500 LR x 2 VVI bu PAC out Insulin drip Mag, ca Cordis out this AM Home cpap Admitted to the hospital on 07/10/2023 9:33 AM for Aneurysm of ascending aorta without rupture (HCC)[I71.21] Hospital Course: 07/10: Bio AVR with root replacement via modified bentall and hemiarch replacement and PFO closure Temp: [36.7 ??C (98.1 ??F)-36.9 ??C (98.4 ??F)] 36.9 ??C (98.4 ??F) Pulse: [62-89] 65 BP: (90-139)/(64-81) 96/64 Resp: [7-28] 25 SpO2: [91 %-100 %] 95 % Arterial Line BP: (82-147)/(52-81) 116/65 FiO2 (%): [40 %-60 %] 40 % PAP: 33/0 (07/10 2100) CVP: 12 mmHg (07/11 0700) PCWP: -- CO: 4.79 L/min (07/10 173) CI: 2.06 L/min/m2 (07/10 173) SVO2: -- Pacemaker Overdrive Pacing: -- Cardiac Rhythm: Normal sinus rhythm (07/11 900) Pacer Mode: -- @ECMOFLOWSHEET@ NPPV Mode: CPAP (07/10/23 1900) FiO2 (%): 40 % O2 Del Method: Nasal cannula FiO2 (%): 40 % O2 Flow Rate (L/min): 2 L/min O2 Therapy: Supplemental oxygen (07/11/23 09) O2 Del Method: Nasal cannula O2 Flow Rate (L/min): 2 L/min Scheduled Meds: acetaminophen, 1,000 mg, Q6H GINNA OR [DISCONTINUED] acetaminophen, 1,000 mg, Q6H GINNA OR [DISCONTINUED] acetaminophen, 650 mg, Q6H GINNA aspirin, 81 mg, Daily OR [DISCONTINUED] aspirin, 325 mg, Daily OR [DISCONTINUED] aspirin, 300 mg, Daily atorvastatin, 40 mg, Nightly ceFAZolin, 2,000 mg, Q8H docusate sodium, 100 mg, BID OR [DISCONTINUED] docusate, 100 mg, BID heparin, 5,000 Units, Q8H GINNA insulin lispro, 0-10 Units, TID with meals insulin lispro, 0-5 Units, Nightly [Held by Provider] metoprolol tartrate, 12.5 mg, BID senna, 1 tablet, BID OR [DISCONTINUED] senna, 8.8 mg, BID sodium chloride 0.9%, 0.5-20 mL, Q8H GINNA Physical Exam: Neuro: awake, alert, orientedx3, CAM (-), moves all extremities and able to follow commands. PERRL ~3mm Cardiac: epicardial wires VVI backup, RRR, S1 S2, periphery warm, pulses palpable distally. Trace nonpitting peripheral edema. Pulm: breath sounds clear to auscultation bilaterally, no wheezes. Normal respiratory rate and effort. GI: abdomen round, soft, nontender, hypoactive bowel sounds : de la fuente in place with clear, yellow urine Skin: [place], warm, dry, midline sternal incision clean, dry, & intact. Drains: Chest tubes in place w/ drainage and no airleak Infusions: sodium chloride 0.9%, 10 mL/hr sodium chloride 0.9%, 10 mL/hr, Last Rate: 10 mL/hr (07/10/23 1736) sodium chloride 0.9%, 3-12 mL/hr PRN Meds: bisacodyL, 10 mg sodium chloride 0.9%, 30 mL dextrose, 15 g OR dextrose, 250 mL glucagon, 1 mg HYDROmorphone, 0.2 mg, 0.2 mg at 07/11/23 0413 magnesium sulfate, 2 g ondansetron, 4 mg, 4 mg at 07/11/23 0728 oxyCODONE, 5 mg, 5 mg at 07/11/23 0736 polyethylene glycol, 17 g potassium chloride, 20 mEq, Last Rate: 25 mL/hr at 07/10/23 1711, 20 mEq at 07/10/23 1711 potassium chloride ER, 20 mEq potassium chloride ER, 40 mEq sodium chloride 0.9%, 0.5-20 mL sodium chloride 0.9%, 10 mL/hr Date 07/10/23699 - 07/11/2365807/11/23699 - 07/12/23 0659 Shift 7329-5965 0754-1632 24 Hour Total 5311-2387 2803-8904 24 Hour Total INTAKE P.O. 700 700 I.V.(mL/kg) 1734(15.6) 1417(12.7) 3151(28.3) Blood 861 861 IV Piggyback 300 300 Shift Total(mL/kg) 2895(26) 2117(19) 5012(45.1) OUTPUT Urine(mL/kg/hr) 850(0.6) 1195(0.9) 2045(0.8) 85 85 Blood 200 200 Chest Tube 130 320 450 110 110 Shift Total(mL/kg) 1180(10.6) 1515(13.6) 2695(24.2) 195(1.8) 195(1.8) NET 7760 539 6548 -195 -195 Weight (kg) 111.2 111.2 111.2 111.2 111.2 111.2 LDA CVC Quadruple Lumen 07/10/23 Right Internal jugular (Active) Number of days: 0 Arterial Line 07/10/23 Right Radial (Active) Number of days: 0 Pacer Wires (Active) Number of days: 0 Urethral Catheter Temperature probe (Active) Number of days: 0 Chest Tube Mediastinal (Active) Number of days: 0 Recent Labs Lab Units 07/11/23 00507/10/23 1626 SODIUM mmol/L 141 143 POTASSIUM PLASMA mmol/L 4.6 4.1 CHLORIDE mmol/L 107 108 CO2 mmol/L 23 28 BUN SERUM mg/dL 18 17 CREATININE mg/dL 0.87 0.97 MAGNESIUM mg/dL 2.1 2.7* PHOSPHORUS PLASMA mg/dL 3.5 4.7* Recent Labs Lab Units 07/11/23 0052 LACTATE mmol/L 3.1* Recent Labs Lab Units 07/11/23 0052 07/10/23 1626 07/10/23 1601 WBC K/cumm 8.7 8.2 9.5 HEMOGLOBIN g/dL 10.8* 10.7* 9.4* HEMATOCRIT % 31.8* 30.8* 26.9* PLATELETS K/cumm 119* 106* 112* Recent Labs Lab Units 07/10/23 1626 07/10/23 1602 07/10/23 1012 APTT sec 30 33 33 INR 1.25* 1.30* 1.03 Recent Labs Lab Units 07/10/23 1626 07/10/23 1536 07/10/23 1500 PH ART 7.40 7.41 7.33* PCO2 ART mmHg 43 -- -- PO2 ART mmHg 155* -- -- PO2 ARTERIAL POC mmHg -- 304* 105 HCO3 ART POC mmol/L -- 24 HCO3 ART (CALC) mmol/L 27 -- -- POCT BASE EXCESS, ARTERIAL mmol/L -- 1.7 -1.3 BASE EXC ART mmol/L 2 -- -- O2 SAT ART (CALC) % 99* -- -- Recent Labs Lab Units 07/10/23 1012 HEMOGLOBIN A1C % 5.2 Impression and Plan: Acute Postoperative Pain Expected postop pain following cardiac surgery. Hx of arthritis - Scheduled acetaminophen 1gm Q6H when applicable - Oxycodone 5mg Q4H PRN 1st line when applicable - Hydromorphone 0.2mg Q1H PRN for breakthrough pain Ascending aortic aneurysm s/p Modified Bentall root with kyler arch replacement Severe Aortic Insufficiency s/p bio AVR Lactic Acidosis Incidentally found aneurysm during shoulder injury in 2015 that has progressed on surveillance chest CT scans. KELLEY (07/10) Preserved biventricular function Received volume resuscitation overnight with elevated lactate and soft BP. PAP incidentally displaced by patient after extubation and removed overnight. - Titrate nicard for SBP goal 110-130 - ASA/statin daily - hold losartan and nifedipine in acute post op setting - holding metop with soft BP with getting OOBTC - D/C A line - consider gentle volume resuscitation - repeat lactate at noon Acute Respiratory Insufficiency Atelectasis Pleural Effusion MONIKA Extubated to FL overnight. Rested on CPAP. CXR with trace bilateral atelectasis. - Pulmonary hygiene with IS and C&DB - Wean supplemental O2 for SpO2 > 92% - OOBTC/PT/OT - home CPAP when applicable Acute Blood Loss Anemia Expected following cardiac surgery. No intraop blood products. No active signs of bleeding with minimal chest tube output - No current indication for transfusion, consider if patient becomes hemodynamically unstable with increased pressor requirements or Hgb < 8 and symptomatic - CBC daily Leukocytosis Likely inflammatory following CPB. Remains Afrebrile. - No current indication for culture, consider if temp > 38.5 - Continue periop antibiotics to completion - D/C leisa Additional ICU Care: DVT prophylaxis: SQH and SCDs Nutrition: Cardiac diet Bowel regimen: Scheduled docusate and senna. Polyethylene glycol and bisacodyl suppository PRN. Glycemic control: Sliding scale insulin.. Lab Results Component Value Date HGBA1C 5.2 07/10/2023 Physical therapy/Activity: PT/OT ordered today to start when the patient can actively participate Updates: 0800-> nauseated while sitting on side of bed and slightly orthostatic getting to the chair withslow recovery. 1200-> Lactate normal Assessment and plan has been reviewed with CT Surgery & ICU attending on 07/11/23. Kalen Rivera DNP Cosigned by Izabella Alfaro MD at 07/11/2023 1:42 PM CDT * Chika Padilla, PT - 07/11/2023 9:05 AM CDT Physical Therapy Evaluation 07/11/23 09 General Chart Reviewed Yes Session Type Evaluation PT Received On 07/11/23 Safe Environment Arm band checked;Patient found sitting in chair;Session completed bedside;Gait belt utilized for all out of bed mobility (pt in CVR) Subjective Agreeable to Therapy Subjective Comment I'm doing ok but I would like to get back to bed pt pleasant , motivated, states he's not hungry and could stand to lose 20lbs. pt educated on importance of sternal healing thru nutrition. he's receptive. Additional Pertinent History 77 yo admit 07-10-23 for elective surgery this date with Dr. Lynn for Tissue composite root replacement via modified bentall, Hemiarch replacement (28 mm), and Sternal plating 2 8 hole H plates and 16 screws via mini sternotomy. 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 alerted pt to mini sternotomy restriction of 6 wks Home Living Type of Home House Home Layout Two level;Able to live on main level with bedroom/bathroom Home Access Stairs to enter without rails Entrance Stairs-Rails None (but there is a post he can hold to.) Entrance Stairs-Number of Steps 3 Home Mobility Equipment-Available None (has access to all /any DME he needs, but owns none, (owns [employer] so has equipment there. 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 grandsons and assist at both places. Fall within the last 6 months Yes Fall within the last 6 months comment I have probably tripped on the farm but nothing major Prior Function Comments pt amb no AD, islikey to use back door with 3 steps but has a ramp. pt is normally active with business and farm. he states the grands will assist until he's better. his wifedrives. Pain Assessment Pain Assessment 0-10 Pain Score 3 Pain Type Surgical pain Pain Location Sternum Clinical Progression Not changed Pain Interventions Repositioned Cognition Cognition Comments mild RAMONA, is belching a lot and does not want breakfast. became more talkative as session progressed. Arousal/Alertness Alert Orientation Oriented X4 (person, place, time, situation) Compliance/Behavior Easy to engage Bed Mobility 1 Bed Mobility Comments 1 sit to supine mod assist of 2 to guide shoulders and lift LE s into bed. cues for sternal precautions which he abides by Transfer 1 Transfer Device 1 No device Trials/Comments 1 sit<>stand min assist for force production and gaining forward momentum. Ambulation 1 Distance (ft) 1 3 ft chair to bed Surface 1 Level tile Device 1 No device;Hand held assist Assistance 1 Minimum Assist (2nd person for line management) Gait: Requires verbal cues to 1 Utilize appropriate gait sequencing Gait Deviations 1 Base of support - increased;Shayy - decreased;Hip/knee flexion during swing phase - decreased;Shuffling Ambulation Comments 1 pt keeps wide base of support, takes small steps as instructed RLE Assessment RLE Assessment WFL LLE Assessment LLE Assessment WFL PT Treatment/Exercise Comments PT Treatment/Exercise Comments IS 500 to 750 with cues for technique, no cough noted. belching. Other Comments Other PT Comments VSS on 3 L at 95%, 77, 113/63 Safe Environment End of Therapy Session Safe Environment End of Therapy Session Patient left supine in bed;RN notified;Call light within reach;Overbed table within reach Assessment Prognosis Good Problem List Decreased endurance;Impaired balance;Decreased mobility Plan Plan Plan of care initiated;If this is the last note, consider this the discharge summary Recommendation/Plan PT Recommendation/Plan (S) Home with family;Home with 24 hour supervision;Home Health PT PT Recommendation/Plan Comments (S) pt must make anticipated progress to nm home. PT Frequency during current admission 3-5x/wk Treatment/Interventions during current admission Bed mobility;Compensatory technique education;Functional activity;Gait training;Therapeutic activity;Therapeutic exercise PT Equipment Recommended None (per pt has access to DME) Progress during current admission Slow progress, decreased activity tolerance PT Evaluation Complete Yes Multi-Disciplinary Problems (from Physical Therapy) Active Problems Problem: PT [facility] [place]: 07/11/23 Goal Start Date Expected End Date End Date PT [facility] 1 07/11/23 08/03/23 -- Goal Details: Independent bed mobility and transfers adhering to sternal precautions 100% of the time. Goal Start Date Expected End Date End Date PT [facility] 2 07/11/23 08/03/23 -- Goal Details: Pt amb 360ft with least restrictive device level surfaces mod indep or indep. Goal Start Date Expected End Date End Date PT [facility] 3 07/11/23 08/03/23 -- Goal Details: Pt amb up/down curb step mod indep or indep and up/down 3 steps with single HR mod indep or indep with good dyn stand balance and/or low fall risk on Villarreal balance scale. Goal Start Date Expected End Date End Date PT [facility] 4 07/11/23 08/03/23 -- Goal Details: Pt to apply sternal precautions independently without cueing from PT and display goodknowledge of cardiac HEP for optimal healing and functional recovery. Education: Patient has been educated on the role of PT, safety , precautions, mobility training, and home exercise program. Education completed via explanation, teach back, and demonstration. Patientverbalized understanding, demonstrated understanding, and needs ongoing reinforcement * Idalia Baxter, OT - 07/11/2023 6:59 AM CDT Occupational Therapy 07/11/23 0659 General Chart Reviewed Yes Session Type Evaluation OT Received On 07/11/23 Safe Environment Arm band checked;Patient found in supine;Gait belt utilized for all out of bed mobility Subjective Agreeable to Therapy Subjective Comment Pt is pleasant throughout session, quiet, minimally conversant but answers questions appropriately. Reports feeling pretty good upon OT arrival to room Additional Pertinent History Pt is a 77 yo male admit who presented for surgical intervention of known ascending aortic aneurysm. Pt is now s/p AVR with root replacement, hemiarch replacement, and PFO closure via median sternotomy and sternal plating by Dr. Lynn on 07/10. PMH: arthritis, HTN, MONIKA, s/p R shoulder surgery Family/Caregiver Present No Occupational Therapy-Patient Goal return home at PLOF Precautions Precautions Cardiac sternal;Fall risk;Drains Precaution Handout Issued Yes Precaution Comments OT verbally reviewed all sternal precautions and driving restriction with pt. Cardiac packet utilized for visual reinforcement Home Living Type of Home House Home Layout Two level;Able to live on main level with bedroom/bathroom;Basement (Pt reports not needing to go to basement od 2nd floor at d/c) Home Access Stairs to enter without rails;Ramped entrance (Pt reports building ramp for , but he typically takes the stairs to enter at baseline) Entrance Stairs-Number of Steps 1-2 Bathroom Shower/Tub Walk-in shower with threshold Bathroom Equipment Built-in shower seat Home Mobility Equipment-Available (Pt reports he probably has AD at home, but unabe to verbalize what exact equipment he has) Home Mobility Equipment-Currently Using None Additional Comments Pt reports not using any AD nor DME at baseline. Reports my is handicapped and that she uses scooter for long distances. 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 Leisure ([employer], [employer]) Fall within the last 6 months No Prior Function Comments Pt reports independence in all activities at baseline LE Dressing LE Dressing: Where assessed Supine, bed LE Dressing: Level of assistance Maximum Assist LE Dressing: Assistance with Don/doff R sock;Don/doff L sock Pain Assessment Pain Assessment 0-10 Pain Score 4 Pain Type Surgical pain Pain Location Sternum Pain Orientation Mid Clinical Progression Gradually worsening (02/21) Pain Interventions RN Notified;Medication (See MAR);Repositioned Activity Tolerance Activity Tolerance Comments Pre OT: BP 122/66, HR 75, O2 92% on 2L while supine in bed. Upon sitting EOB pt becomes nauseous, RN notified and brought IV ant- nause medication. All vital signs remainedstable. Nausea dissipates following meds. Post OT: BP 119/60, HR 76, O2 93% on 2L while seated in recliner Cognition Cognition Comments Pt is pleasant, but minimally conversant Arousal/Alertness Alert Attention Span Attends with cues to redirect Memory Appears intact Current communication Appears Intact Orientation Oriented X4 (person, place, time, situation) Following Commands Follows one step commands with repetition Safety Judgment Decreased awareness of need for assistance Awareness of Errors Assistance required to identify errors made Insight Decreased awareness of deficits Compliance/Behavior Easy to engage Motor Planning Motor Planning Appears intact Bed Mobility 1 Bed Mobility Comments 1 Supine>sitting EOB moderate assist for force production of trunk and hips to EOB. Pt managed BLEs with increased time and SBA. HOB elevated approximately 40 degrees. Verbalcues for sternal precautions and sequencing Transfer 1 Trials/Comments 1 Sit>stand from elevated EOB requiring minimal-moderate assist for force production and safety. No AD used. Pt braces heavily against bed with BLEs. Upon standing pt completed stand pivot transfer to recliner with minimal assist for safety, no LOB noted. Verbal cues throughout for sternal precautions and sequencing RUE Assessment RUE Assessment WFL LUE Assessment LUE Assessment WFL Safe Environment End of Therapy Session Safe Environment End of Therapy Session Patient left in recliner;RN notified;Call light within reach;Overbed table within reach Assessment Prognosis Good Problem List Decreased endurance;Decreased balance;Decreased functional mobility;Decreased ADL independence;Decreased IADL independence Barriers to Discharge Current Mobility Status Plan Plan Plan of care initiated;If this is the last note, consider this the discharge summary Recommendation/Plan OT Recommendation (S) Home with 24 hour supervision;Home with family;Home Health OT OT Frequency during current admission 3-5x/wk Treatment/Interventions during current admission ADL/IADL retraining;Balance Training;Endurance training;Functional activity;Functional mobility training;Functional transfer training;Parent/caregivertraining and education;Strengthening;Therapeutic activity;Therapeutic exercise Progress during current admission Progressing toward goals OT Evaluation Complete Yes Multi-Disciplinary Problems (from Occupational Therapy) Active Problems Problem: OT Misc Start Date: 07/11/23 Goal Start Date Expected End Date End Date Pt will complete toileting tasks and toilet transfer modified independent 07/11/23 07/25/23 -- Goal Start Date Expected End Date End Date Pt will complete LB dressing modified independent 07/11/23 07/25/23 -- Goal Start Date Expected End Date End Date Pt will complete grooming tasks at sink independently 07/11/23 07/25/23 -- Goal Start Date Expected End Date End Date Pt will complete object retrieval from varying heights modified independent to simulate ADLs and IADLs 07/11/23 07/25/23 -- Education: Patient has been educated on the role of OT, safety, precautions, ADL training, mobilitytraining, body mechanics, and use of adaptive equipment/DME. Education completed via verbal instruction and return demonstration. Patient verbalized understanding, demonstrated understanding, and needs ongoing reinforcement * Laquita Parson NP - 07/10/2023 6:34 PM CDT Images from the original note were not included. [facility] PM Progress Note- Patient: Judi Nolasco : 1945 Age: 77 y.o. male Admiting Physician: Keaton Lynn MD Marketing Services Vice President: Izabella Alfaro MD, [facility] Shift: [facility]R PM Interval History: - Arrived from OR s/p AVR/root replacement Admitted to the hospital on 07/10/2023 9:33 AM for Aneurysm of ascending aorta without rupture (HCC)[I71.21] Procedures: 07/10: Bio AVR with root replacement via modified bentall and hemiarch replacement and PFO closure Temp: [36.7 ??C (98.1 ??F)-36.9 ??C (98.4 ??F)] 36.7 ??C (98.1 ??F) Pulse: [63-80] 63 BP: (139)/(81) 139/81 Resp: [7-28] 18 SpO2: [91 %-100 %] 91 % Arterial Line BP: (82-142)/(52-81) 112/57 FiO2 (%): [40 %-60 %] 40 % PAP: (32-48)/(-3-26) 33/0 CVP: [2 mmHg-257 mmHg] 10 mmHg CO: [4.55 L/min-4.79 L/min] 4.79 L/min CI: [1.96 L/min/m2-2.06 L/min/m2] 2.06 L/min/m2 Scheduled Meds: acetaminophen, 1,000 mg, Q6H GINNA OR [DISCONTINUED] acetaminophen, 1,000 mg, Q6H GINNA OR [DISCONTINUED] acetaminophen, 650 mg, Q6H GINNA aspirin, 325 mg, Daily OR [DISCONTINUED] aspirin, 325 mg, Daily OR [DISCONTINUED] aspirin, 300 mg, Daily atorvastatin, 40 mg, Nightly calcium chloride, 1 g, Once ceFAZolin, 2,000 mg, Q8H docusate sodium, 100 mg, BID OR [DISCONTINUED] docusate, 100 mg, BID heparin, 5,000 Units, Q8H GINNA insulin regular, 2-14 Units, Once magnesium sulfate, 2 g, Once senna, 1 tablet, BID OR [DISCONTINUED] senna, 8.8 mg, BID sodium chloride 0.9%, 0.5-20 mL, Q8H GINNA Physical Exam: Neuro: Alert, oriented x 3, able to follow simple commands, PERRL. Drowsy Cardiovascular: S1 S2, RRR, no murmurs, rubs, or gallops, epicardial wires VVI bu, periphery warm with palpable pulses, no significant edema Pulmonary: CPAP in place. Breath sounds clear to auscultation bilaterally, normal respiratory rate and effort GI: Abdomen soft, non-distended, bowel sounds hypoactive. : De La Fuente in place draining clear yellow urine Skin: Warm, dry, Sternal incision with OR dressing clean, dry, intact. Drains: Chest tubes to -20 suction with serosanguinous drainage, no air leak. Infusions: insulin regular, 0-30 Units/hr, Last Rate: 1 Units/hr (07/11/23 0300) sodium chloride 0.9%, 10 mL/hr sodium chloride 0.9%, 10 mL/hr, Last Rate: 10 mL/hr (07/10/23 1736) sodium chloride 0.9%, 3-12 mL/hr PRN Meds: bisacodyL, 10 mg sodium chloride 0.9%, 30 mL dextrose, 125 mL HYDROmorphone, 0.2 mg, 0.2 mg at 07/11/23 0221 insulin lispro, 1-14 Units insulin regular, 2-14 Units ondansetron, 4 mg, 4 mg at 07/10/23 2204 oxyCODONE, 5 mg, 5 mg at 07/11/23 0221 polyethylene glycol, 17 g potassium chloride, 20 mEq, Last Rate: 25 mL/hr at 07/10/23 171, 20 mEq at 07/10/23 171 sodium chloride 0.9%, 0.5-20 mL sodium chloride 0.9%, 10 mL/hr Date 07/10/23 07 - 07/11/23 0659 07/11/23 07 - 07/12/23 0659 Shift 1673-0613 3454-2103 24 Hour Total 3231-0360 1381-6722 24 Hour Total INTAKE I.V.(mL/kg) 1734(15.6) 1734(15.6) Blood 861 861 IV Piggyback 300 300 Shift Total(mL/kg) 2895(26) 2895(26) OUTPUT Urine(mL/kg/hr) 850(0.6) 1035 1885 Blood 200 200 Chest Tube 130 270 400 Shift Total(mL/kg) 1180(10.6) 1305(11.7) 2485(22.3) NET 1715 -1305 410 Weight (kg) 111.2 111.2 111.2 111.2 111.2 111.2 LDA Introducer 07/10/23 Right Internal jugular (Active) Number of days: 0 CVC Quadruple Lumen 07/10/23 Right Internal jugular (Active) Number of days: 0 Arterial Line 07/10/23 Left Radial (Active) Number of days: 0 Arterial Line 07/10/23 Right Radial (Active) Number of days: 0 Pacer Wires (Active) Number of days: 0 Urethral Catheter Temperature probe (Active) Number of days: 0 Chest Tube Mediastinal (Active) Number of days: 0 Recent Labs Lab Units 07/11/23 0052 07/10/23 1626 SODIUM mmol/L 141 143 POTASSIUM PLASMA mmol/L 4.6 4.1 CHLORIDE mmol/L 107 108 CO2 mmol/L 23 28 BUN SERUM mg/dL 18 17 CREATININE mg/dL 0.87 0.97 MAGNESIUM mg/dL 2.1 2.7* PHOSPHORUS PLASMA mg/dL 3.5 4.7* Recent Labs Lab Units 07/11/23 0052 LACTATE mmol/L 3.1* Recent Labs Lab Units 07/11/23 0052 07/10/23 1626 07/10/23 1601 WBC K/cumm 8.7 8.2 9.5 HEMOGLOBIN g/dL 10.8* 10.7* 9.4* HEMATOCRIT % 31.8* 30.8* 26.9* PLATELETS K/cumm 119* 106* 112* Recent Labs Lab Units 07/10/23 1626 07/10/23 1602 07/10/23 1012 APTT sec 30 33 33 INR 1.25* 1.30* 1.03 Recent Labs Lab Units 07/10/23 1626 07/10/23 1536 07/10/23 1500 PH ART 7.40 7.41 7.33* PCO2 ART mmHg 43 -- -- PO2 ART mmHg 155* -- -- PO2 ARTERIAL POC mmHg -- 304* 105 HCO3 ART POC mmol/L -- 24 HCO3 ART (CALC) mmol/L 27 -- -- POCT BASE EXCESS, ARTERIAL mmol/L -- 1.7 -1.3 BASE EXC ART mmol/L 2 -- -- O2 SAT ART (CALC) % 99* -- -- Recent Labs Lab Units 07/10/23 1012 HEMOGLOBIN A1C % 5.2 Hemodynamic Review: NSR 60-70s, SBP 100-140s, PAP 30-40/10s, CVP 3-9, CI 1.9-2.0 Supported on Nicardipine at 1. Impression and Plan for Overnight Problems: Acute Postoperative Pain Expected following cardiac surgery. Pain well controlled on current regimen. - Scheduled acetaminophen 1gm Q6H when applicable - Oxycodone 5mg Q4H PRN 1st line when applicable - Hydromorphone 0.2mg Q1H PRN for breakthrough pain Sinus bradycardia Hypovolemia Post procedural cardiac insuffiiency Ascending aortic aneurysm s/p Modified Bentall root with kyler arch replacement Severe Aortic insufficiency s/p bio AVR Incidentally found aneurysm during shoulder injury in 2016 that has progressed on surveillance chest CT scans. KELLEY (07/10) Preserved biventricular function on no inotropes. Coming off CPB SB in 50s. Now in 60s. Had been on Nicardipine but has since been weaned off and soft SBP and low filling pressures. Repositioned in bed and PAC pulled back and now likely in RV. Initial CI 1.9 likely related to hypovolemia - Check Scvo2---72 - DC PAC now - LR 500ml x 1 now - ASA/statin daily - SBP goal 110-130 - hold losartan and nifedipine in acute post op setting - EPW VVI 45 Acute respiratory insufficiency Pleural Effusion MONIKA Extubated post op without issue. Now on home CPAP. Post op CXR with small pleural effusions and bibasilar atelectasis. - Pulmonary hygiene with IS and C&DB - Wean supplemental O2 for SpO2 > 92% - OOBTC/PT/OT - home CPAP at night Acute Blood Loss Anemia Thrombocytopenia Expected following cardiac surgery. No intraop blood products. No active signs of bleeding with minimal chest tube output. Hgb stable 10. PLT 106. - No current indication for transfusion, consider if patient becomes hemodynamically unstable with increased pressor requirements or Hgb < 8 and symptomatic - CBC daily Leukocytosis Likely inflammatory following CPB. Remains Afrebrile. - No current indication for culture, consider if temp > 38.5 - Continue periop antibiotics to completion Additional ICU Care: DVT prophylaxis: subcutaneous heparin ordered to start tomorrow PUD prophylaxis: H2 riya IV until extubated. Nutrition: ADAT Bowel regimen: Scheduled docusate and senna. Polyethylene glycol and bisacodyl suppository PRN. Glycemic control: [place] Protocol insulin gtt. Lab Results Component Value Date HGBA1C 5.2 07/10/2023 Physical therapy/Activity: PT/OT ordered today to start when the patient can actively participate AM labs reviewed/Updates-> AM labs reviewed. Hgb stable 10.8, PLT 119. Cr 0.87. Mag 2.1, calcium 4.39. Mag and Calcium replacement ordered. Lactate 3.1. Off Nicardipine. Low filling pressures. 500ml LR ordered. Laquita Parson NP NOTICE: The above Assessments and Plans address ongoing issues and critical acute events during thenight shift of this date. It is not intended to be a comprehensive documentation of all findings, events, Assessments, or Plans that are addressed during the Critical Care Team Daily Rounds and throughout the day. Cosigned by Izabella Alfaro MD at 07/11/2023 10:34 AM CDT documented in this encounter H&P Notes * Kalen Rivera, VIVEK - 07/10/2023 5:27 PM CDT Images from the original note were not included. [facility] History & Physical - Patient: Judi Nolasco : 1945 Age: 77 y.o. male Admitting Physician: Keaton Lynn MD Marketing Services Vice President: Izabella Alfaro MD, [facility] Shift: [facility] AM HPI: 77 y.o. male presenting for surgical evaluation of ascending aortic aneurysm. This was initially found incidentally on imaging in the setting of a shoulder injury in 2015. Since then he has had annual surveillance chest CT scans with most recent measuring 5.3 cm in 06/06. He is otherwise asymptomatic. No family h/o aneurysm. Cardiac cath with normal coronaries. Echo with normal LV and RV systolic function. Today (07/10), patient presents to CVR ICU s/p Bio AVR with root replacement via modified bentall and hemiarch replacement and PFO closure by Dr. Lynn. He arrives hemodynamically stable off support. He is orally intubated on full mechanical support. Reported to be an easy grade I (direct) airway. He received no products intra-operatively. Post CPB KELLEY showed preserved biventricular function. ROS: unable to obtain, patient intubated and sedated Admitted to the hospital on 07/10/2023 9:33 AM for Aneurysm of ascending aorta without rupture (HCC)[I71.21] Hospital Course: 07/10: Bio AVR with root replacement via modified bentall and hemiarch replacement and PFO closure Past Medical History: Diagnosis Date Arthritis Arthritis; Comments: [facility] 10/19/2015 - HX OTHER MEDICAL ascending aortic aneurysm; Comments: [facility] 10/19/2015 - Hypertension Hypertension Sleep apnea Sleep apnea History reviewed. No pertinent surgical history. HOME MEDICATIONS : acetaminophen (TylenoL) 325 mg tablet atorvastatin (LIPITOR) 40 mg tablet losartan (COZAAR) 100 mg tablet NIFEdipine (NIFEdipine CC) 30 mg 24 hr tablet carvediloL (COREG) 25 mg tablet Social History Tobacco Use Smoking status: Never Smokeless tobacco: Never Substance and Sexual Activity Drug use: No Sexual activity: None Alcohol Use: Not At Risk (07/10/2023) AUDIT-C Frequency of Alcohol Consumption: 2-4 times a month Average Number of Drinks: 1 or 2 Frequency of Binge Drinking: Less than monthly No Known Allergies Family History Problem Relation Age of Onset Hypertension Mother Hypertension; Hypertension Father Hypertension; Coronary artery disease Other Family history of Coronary artery disease; Temp: [36.9 ??C (98.4 ??F)] 36.9 ??C (98.4 ??F) Pulse: [64-77] 68 BP: (139)/(81) 139/81 Resp: [7-22] 14 SpO2: [96 %-100 %] 100 % Arterial Line BP: (82-128)/(52-81) 128/81 FiO2 (%): [40 %-60 %] 40 % PAP: 46/24 (07/10 1700) CVP: 16 mmHg (07/10 1700) PCWP: -- CO: 4.55 L/min (07/10 1630) CI: 1.96 L/min/m2 (07/10 1630) SVO2: -- Pacemaker Overdrive Pacing: -- Cardiac Rhythm: Normal sinus rhythm (07/10 1715) Pacer Mode: -- @ECMOFLOWSHEET@ Adult Vent Mode: Volume control/Synchronized intermittent mandatory ventilation FiO2 (%): [40 %-60 %] 40 % S RR: [12] 12 S VT: [600 mL] 600 mL PEEP/CPAP/EPAP (cm H2O): [5 cm H20] 5 cm H20 Pressure Support (cm H2O): [8 cm H20] 8 cm H20 PIP: [24 cm H2O] 24 cm H2O Minute Ventilation (L/min): [7 L/min] 7 L/min MAP (cmH2O): [8] 8 Ventilation Day(s): 1 days Scheduled Meds: acetaminophen, 1,000 mg, Q6H GINNA OR acetaminophen, 1,000 mg, Q6H GINNA OR acetaminophen, 650 mg, Q6H GINNA aspirin, 325 mg, Daily OR aspirin, 325 mg, Daily OR aspirin, 300 mg, Daily [START ON 07/11/2023] ceFAZolin, 2,000 mg, Q8H docusate sodium, 100 mg, BID OR docusate, 100 mg, BID famotidine, 20 mg, BID [START ON 07/11/2023] heparin, 5,000 Units, Q8H GINNA [START ON 07/11/2023] senna, 1 tablet, BID OR [START ON 07/11/2023] senna, 8.8 mg, BID sodium chloride 0.9%, 0.5-20 mL, Q8H GINNA vancomycin, 1,500 mg, Q12H Physical Exam: Neuro: intubated/sedated. Pinpoint pupils. Unable to follow simple commands. Cardiac: epicardial wires VVI backup, RRR, S1/S2, no m/r/g. periphery warm, pulses palpable distally Resp: orally intubated & mechanically ventilated, breath sounds clear to auscultation bilaterally, no wheezes. Normal respiratory rate and effort. GI: OGT to LIWS, abdomen round, soft, absent bowel sounds : de la fuente catheter in place w/ clear, yellow urine Skin: pink, warm, dry, midline sternotomy with dressing C/D/I. Drains: Chest tubes in place w/ drainage and no airleak Infusions: niCARdipine, 0-2 mcg/kg/min norepinephrine, 0-2 mcg/kg/min, Last Rate: Stopped (07/10/231714) propofol, 0-50 mcg/kg/min, Last Rate: Stopped (07/10/231714) sodium chloride 0.9%, 10 mL/hr sodium chloride 0.9%, 10 mL/hr sodium chloride 0.9%, 3-12 mL/hr PRN Meds: [START ON 07/11/2023] bisacodyL, 10 mg sodium chloride 0.9%, 30 mL dextrose 5% water, 10-30 mL HYDROmorphone, 0.2 mg ondansetron, 4 mg oxyCODONE, 5 mg polyethylene glycol, 17 g potassium chloride, 20 mEq, Last Rate: 25 mL/hr at 07/10/231710, 20 mEq at 07/10/231710 sodium chloride 0.9%, 0.5-20 mL sodium chloride 0.9%, 10 mL/hr Date 07/09/23699 - 07/10/23 0659(Not Admitted) 07/10/23699 - 07/11/23 0659 Shift 3926-8918 6520-0228 24 Hour Total 8654-1480 2760-8070 24 Hour Total INTAKE I.V. 1636(14.7) 1636(14.7) Blood 861 861 IV Piggyback 300 300 Shift Total(mL/kg) 2797(25.2) 2797(25.2) OUTPUT Urine 500 500 Blood 200 200 Chest Tube 80 80 Shift Total(mL/kg) 780(7) 780(7) NET 2016 2017 Weight (kg) 111.2 111.2 111.2 LDA Introducer 07/10/23 Right Internal jugular (Active) Number of days: 0 CVC Quadruple Lumen 07/10/23 Right Internal jugular (Active) Number of days: 0 PA Catheter 7.5 Fr. Right Other (Comment) (Active) Number of days: 0 Arterial Line 07/10/23 Left Radial (Active) Number of days: 0 Arterial Line 07/10/23 Right Radial (Active) Number of days: 0 Pacer Wires (Active) Number of days: 0 Urethral Catheter Temperature probe (Active) Number of days: 0 Chest Tube Mediastinal (Active) Number of days: 0 Recent Labs Lab Units 07/10/23 1626 SODIUM mmol/L 143 POTASSIUM PLASMA mmol/L 4.1 CHLORIDE mmol/L 108 CO2 mmol/L 28 BUN SERUM mg/dL 17 CREATININE mg/dL 0.97 MAGNESIUM mg/dL 2.7* PHOSPHORUS PLASMA mg/dL 4.7* Recent Labs Lab Units 07/10/23 1626 07/10/23 1601 07/10/23 1536 WBC K/cumm 8.2 9.5 -- HEMOGLOBIN, POC g/dL -- -- 9.8* HEMOGLOBIN g/dL 10.7* 9.4* -- HEMATOCRIT % 30.8* 26.9* -- HEMATOCRIT POC % -- -- 29.0* PLATELETS K/cumm 106* 112* -- Recent Labs Lab Units 07/10/23 16207/10/23 1602 07/10/23 1012 APTT sec 30 33 33 INR 1.25* 1.30* 1.03 Recent Labs Lab Units 07/10/23 1626 07/10/23 1536 07/10/23 1500 PH ART 7.40 7.41 7.33* PCO2 ART mmHg 43 -- -- PO2 ART mmHg 155* -- -- PO2 ARTERIAL POC mmHg -- 304* 105 HCO3 ART POC mmol/L -- 26 24 HCO3 ART (CALC) mmol/L 27 -- -- POCT BASE EXCESS, ARTERIAL mmol/L -- 1.7 -1.3 BASE EXC ART mmol/L 2 -- -- O2 SAT ART (CALC) % 99* -- -- Impression and Plan: Acute Postoperative Pain Agitation Requiring Sedation Expected postop pain following cardiac surgery. Hx of arthritis Currently sedated on propofol for ventilator compliance. - Scheduled acetaminophen 1gm Q6H when applicable - Oxycodone 5mg Q4H PRN 1st line when applicable - Hydromorphone 0.2mg Q1H PRN for breakthrough pain - Wean sedation for PSV trial when appropriate Ascending aortic aneurysm s/p Modified Bentall root with kyler arch replacement Severe Aortic insufficiency s/p bio AVR Sinus alexandro Incidentally found aneurysm during shoulder injury in 2015 that has progressed on surveillance chest CT scans. KELLEY (9/26) Preserved biventricular function Arrives hemodynamically stabilized off pressors. PAP ~1/3 systemic with CI ~2 and responsive to volume resuscitation. Baseline HR in 50s. - Titrate nicard for SBP goal 110-130 - ASA/statin daily - hold losartan and nifedipine in acute post op setting Acute Respiratory Failure Atelectasis Pleural Effusion MONIKA Post-procedural short-term ventilator support following anesthesia with anticipated extubation. Pt sedated with propofol on arrival from OR. CXR with trace bilateral atelectasis. - Plan to wean sedation for PSV trial with goal extubation if no signs of active bleeding and hemodynamically stable - Pulmonary hygiene with IS and C&DB after extubation - Wean supplemental O2 for SpO2 > 92% - OOBTC/PT/OT - home CPAP Acute Blood Loss Anemia Expected following cardiac surgery. No intraop blood products. No active signs of bleeding with minimal chest tube output - No current indication for transfusion, consider if patient becomes hemodynamically unstable with increased pressor requirements or Hgb < 8 and symptomatic - CBC daily Leukocytosis Likely inflammatory following CPB. Remains Afrebrile. - No current indication for culture, consider if temp > 38.5 - Continue periop antibiotics to completion Additional ICU Care: DVT prophylaxis: subcutaneous heparin ordered to start tomorrow PUD prophylaxis: H2 riya IV until extubated. Nutrition: ADAT Bowel regimen: Scheduled docusate and senna. Polyethylene glycol and bisacodyl suppository PRN. Glycemic control: [place] Protocol insulin gtt. Lab Results Component Value Date HGBA1C 5.2 07/10/2023 Physical therapy/Activity: PT/OT ordered today to start when the patient can actively participate Updates: Assessment and plan has been reviewed with CT Surgery & ICU attending on 07/10/23. Kalen Rivera DNP Cosigned by Izabella Alfaro MD at 07/11/2023 10:34 AM CDT * Keaton Lynn MD - 07/10/2023 11:02 AM CDT I have reviewed the H&P, examined the patient, and endorse the findings as written. Plan of Care : Based on the above findings, I consider Judi Nolasco to be an acceptable risk for : Procedure(s): REPLACEMENT OF ASCENDING AORTA Source Note - Aviva Perez PA - 06/21/2023 10:45 AM CDT Cardiothoracic Surgery Patient Name: Judi Nolasco : 1945 PCP: Noemi Willis NP , Dr. Radha Lozada Referred by: Dr. Kali Reddy Date of Visit: 06/21/23 Chief Complaint: Ascending Aortic Aneurysm HPI: Judi Nolasco is a 77 y.o. male presenting for surgical evaluation of ascending aortic aneurysm. This was initially found incidentally on imaging in the setting of a shoulder injury in 2015. Since then he has had annual surveillance chest CT scans with most recent 06/06/2023 measuring 5.2 cm. This size was noted on scans dating back to 2016, however he presents today due to relatively recentguideline changes regarding size for aortic repair. He endorses intermittent chest pain with exertion which he describes is primarily with heavy lifting. States his machine or machinery mechanic advised that he not lift more than 35 lbs, states he has been compliant with this recently. He is otherwise asymptomatic. Denies shortness of breath, leg swelling, palpitations. 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 Past medical history significant for hypertension, obstructive sleep apnea (complaint with CPAP). Blood pressure is controlled with carvedilol, losartan, nifedipine. Family history is positive for heart disease, however he is unaware of any relatives having aneurysms or unexplained sudden . Allergies as of 06/21/2023 (No Known Allergies) Current Outpatient Medications: atorvastatin (LIPITOR) 40 mg tablet, Take 1 tablet by mouth once daily carvediloL (COREG) 25 mg tablet, TAKE 1 TABLET BY MOUTH TWICE DAILY losartan (COZAAR) 100 mg tablet, Take 1 tablet by mouth once daily NIFEdipine (NIFEdipine CC) 30 mg 24 hr tablet, Take 1 tablet (30 mg total) by mouth daily Past Medical History: Diagnosis Date Arthritis Ascending Aortic Aneurysm Hypertension Sleep apnea Right Shoulder Injury Surgical History Right shoulder surgery 2018 Family History Problem Relation Age of Onset Hypertension Mother Hypertension Father Sudden (tractor incident) Father Stroke/TIA Mother Coronary artery disease Father Social History -Patient lives at home with his ; runs [employer] and 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 The office review of system questionnaire was reviewed and the remainder of the review of systems including cardiovascular, pulmonary, gastrointestinal, renal, urologic, hematologic, opthalmalogic, and neurologic abnormalities are negative. Objective: BP 125/67 Pulse 80 Ht 182.9 cm (6') Wt 108.9 kg (240 lb) SpO2 95% BMI 32.55 kg/m?? Physical Exam: General Appearance: Well developed, well nourished, in no acute distress Respiratory: Lungs clear to auscultation bilaterally Cardiovascular: Regular rate and rhythm with no murmurs Gastrointestinal/ Abdomen: Soft, nontender, nondistended Extremities: No cyanosis or bilateral peripheral edema Skin: warm and dry Neurologic/ Psychiatric: Alert and oriented x 3 with a grossly normal motor exam Data Review: 06/21/2023 Echo Report pending 06/08/2023 CTA Chest IMPRESSION: Stable dilatation of the ascending thoracic aorta up to 5.2 cm in size. 06/08/2022 CTA Chest IMPRESSION: 1. Stable to minimal increase in size of 5.2 cm ascending thoracic aortic aneurysm. 2. Atherosclerosis. 3. Asbestos related pleural disease. 05/19/2021 CTA Chest IMPRESSION: 1. Stable to minimal increase in size of 5.2 cm ascending thoracic aortic aneurysm. 2. Atherosclerosis. 3. Asbestos related pleural disease. 06/01/2018 CTA Chest IMPRESSION: 1. Stable ectatic ascending thoracic aorta measuring up to 4.9 cm. See above for additional aortic measurements. 2. Calcified pleural plaques. 3. Stable right upper lobe 4 mm pulmonary nodule. 05/24/2016 [facility] Chest IMPRESSION: 1. Compromised examination due to artifact. 2. Fusiform dilatation of the ascending aorta to 5.2 cm. 3. No gross evidence of intimal dissection. Assessment: 77 y.o. male with ascending aortic aneurysm. Plan: Maintain a systolic blood pressure of less than 130/80 and a heart rate less than 80. Continue to refrain from smoking. Refrain from heavy lifting or strenuous chores which require straining as these activities are associated with more rapid growth of aneurysms and complications such as dissection and rupture. Cosigned by Keaton Lynn MD at 06/21/2023 12:05 PM CDT documented in this encounter Procedure Notes * Kalen Rivera DNP - 07/11/2023 9:27 AM CDTAssociated Order(s): Critical Care Post-Procedure Diagnose(s): Aneurysm of ascending aorta without rupture (HCC) Critical Care Performed by: Kalen iRvera DNP Authorized by: Kalen Rivera DNP CRITICAL CARE: Team: [facility] CT Shift: AM Level of Billing: Subsequent Hospital Visit Level 3 My time spent with this patient was 40 minutes: Critical Provider Statement: I have seen and examined the patient on this day of service. I have reviewed and confirmed the history, physical exam, laboratory, and radiographic data as documented in the ICU note. I have reviewed and discussed my treatment plan with the patient's team and other medical/strategy consultant staff. This time was in addition to and separate from care provided by other practitioners on this day of service. * Laquita Parson NP - 07/10/2023 6:36 PM CDTAssociated Order(s): Critical Care Post-Procedure Diagnose(s): Aneurysm of ascending aorta without rupture (HCC) Critical Care Performed by: Laquita Parson NP Authorized by: Laquita Parson NP CRITICAL CARE: Team: [facility] CT Shift: PM Level of Billing: Subsequent Hospital Visit Level 3 My time spent with this patient was 80 minutes: Critical Provider Statement: I have seen and examined the patient on this day of service. I have reviewed and confirmed the history, physical exam, laboratory, and radiographic data as documented in the ICU note. I have reviewed and discussed my treatment plan with the patient's team and other medical/strategy consultant staff. This time was in addition to and separate from care provided by other practitioners on this day of service. I spent time documenting in the medical record, I spent time discussing the management of this critically ill patient with consultants and the medical staff and I spent time reviewing and interpreting data from bedside monitors, laboratory results, and imaging Laquita Parson NP * Kalen Rivera DNP - 07/10/2023 6:04 PM CDTAssociated Order(s): Critical Care Post-Procedure Diagnose(s): Aneurysm of ascending aorta without rupture (HCC) Critical Care Performed by: Kalen Rivera DNP Authorized by: Kalen Rivera DNP CRITICAL CARE: Team: [facility] CT Shift: AM Level of Billing: Critical Care My time spent with this patient was 70 minutes: Critical Provider Statement: I have seen and examined the patient on this day of service. I have reviewed and confirmed the history, physical exam, laboratory and radiologic data as documented in thesigned ICU note. I have reviewed and discussed my treatment plan with the ICU team and other medical/strategy consultant staff, making frequent assessments and decisions regarding this patient's complex medical care. Critical Care time was exclusive of time spent performing separately billed procedures, treating other patients, and teaching. This time was in addition to and separate from critical care provided by other practitioners in my group on this day of service. Critical Care was necessary to treat or prevent imminent or life-threatening deterioration of the following conditions: Acute pain/acute postoperative pain and Agitation requiring sedation Hypotension Atelectasis and Acute respiratory insufficiency Acid-base disturbance and Hypo- or Hyperglycemia Thrombocytopenia and Acute blood loss anemia Leukocytosis This time was spent by me doing the following: Serial bedside patient exams, Serial laboratory checks, Arterial puncture and Obtaining peripheral venous access or blood draws Acute pain control and Frequent neurologic exams Initiation/active titration of vasoactive medications and Interpretation of cardiac output measurements Active and frequent reassessment of respiratory status and oxygen requirements, Acute airway management and Invasive ventilator management, reassessment, and titration Active and frequent monitoring of intake/output and volumen status, Gastric tube placement and interpretation of results/output and Glycemic control Active repletion of electrolytes Initiation/monitoring/titration of anticoagulants Review of prior or current culture/gram stain results and Empiric broad coverage antibiotics I spent time reviewing and interpreting data from bedside monitors, laboratory results, and imaging, I spent time discussing the management of this critically ill patient with consultants and the medical staff and I spent time documenting in the medical record documented in this encounter Nursing Notes * Rory Wu RN - 07/11/2023 3:56 PM CDT Patient Alert and Oriented x 4. VSS. Patient transferred to PCU. RN bedside handoff report to Cassandra Mcgee documented in this encounter Miscellaneous Notes * Plan of Care - Devi Lau RN - 07/14/2023 5:25 PM CDT 07/15/2023 1030 DC info sent to [facility] who have accepted patient. * Plan of Care - Nano Arango RN - 07/14/2023 1:08 PM CDT Problem: Health Behavior: Goal: Understanding of discharge needs will improve 07/14/2023 1308 by Nano Arango RN Outcome: Adequate for Discharge 07/14/2023 1307 by Nano Arango RN Outcome: Adequate for Discharge Problem: Activity: Goal: Mobility will improve 07/14/2023 1308 by Nano Arango RN Outcome: Adequate for Discharge 07/14/2023 1307 by Nano Arango RN Outcome: Adequate for Discharge Problem: Lack of Knowledge: Goal: Understanding of ways to prevent future skin breakdown will improve 07/14/2023 1308 by Nano Arango RN Outcome: Adequate for Discharge 07/14/2023 1307 by Nano Arango RN Outcome: Adequate for Discharge Goal: Ability to identify appropriate dietary choices will improve 07/14/2023 1308 by Nano Arango RN Outcome: Adequate for Discharge 07/14/2023 1307 by Nano Arango RN Outcome: Adequate for Discharge Problem: Nutritional: Goal: Dietary intake will improve 07/14/2023 1308 by Nano Arango RN Outcome: Adequate for Discharge 07/14/2023 1307 by Nano Arango RN Outcome: Adequate for Discharge Goal: Ability to maintain a balanced intake and output will improve 07/14/2023 1308 by Nano Arango RN Outcome: Adequate for Discharge 07/14/2023 1307 by Nano Arango RN Outcome: Adequate for Discharge Problem: Skin Integrity: Goal: Risk for impaired skin integrity will decrease 07/14/2023 1308 by Nano Arango RN Outcome: Adequate for Discharge 07/14/2023 1307 by Nano Arango RN Outcome: Adequate for Discharge Goal: Ability to demonstrate warm and dry skin will improve 07/14/2023 1308 by Nano Arango RN Outcome: Adequate for Discharge 07/14/2023 1307 by Nano Arango RN Outcome: Adequate for Discharge Goal: Circulation will improve to fullest extent possible 07/14/2023 1308 by Nano Arango RN Outcome: Adequate for Discharge 07/14/2023 1307 by Nano Arango RN Outcome: Adequate for Discharge Problem: Cardiac: Goal: Hemodynamic stability will improve 07/14/2023 1308 by Nano Arango RN Outcome: Adequate for Discharge 07/14/2023 1307 by Nano Arango RN Outcome: Adequate for Discharge Goal: Ability to maintain an adequate cardiac output will improve 07/14/2023 1308 by Nano Arango RN Outcome: Adequate for Discharge 07/14/2023 1307 by Nano Arango RN Outcome: Adequate for Discharge Goal: Will show no evidence of cardiac arrhythmias 07/14/2023 1308 by Nano Arango RN Outcome: Adequate for Discharge 07/14/2023 1307 by Nano Arango RN Outcome: Adequate for Discharge Goal: Will show no signs and symptoms of excessive bleeding 07/14/2023 1308 by Nano Arango RN Outcome: Adequate for Discharge 07/14/2023 1307 by Nano Arango RN Outcome: Adequate for Discharge Problem: Lack of Knowledge: Goal: Ability to demonstrate proper wound care will improve 07/14/2023 1308 by Nano Arango RN Outcome: Adequate for Discharge 07/14/2023 1307 by Nano Arango RN Outcome: Adequate for Discharge Goal: Knowledge of disease or condition will improve 07/14/2023 1308 by Nano Arango RN Outcome: Adequate for Discharge 07/14/2023 1307 by Nano Arango RN Outcome: Adequate for Discharge Goal: Knowledge of the prescribed therapeutic regimen will improve 07/14/2023 1308 by Nano Arango RN Outcome: Adequate for Discharge 07/14/2023 1307 by Nano Arango RN Outcome: Adequate for Discharge Problem: Respiratory: Goal: Ability to maintain adequate ventilation will improve 07/14/2023 1308 by Nano Arango RN Outcome: Adequate for Discharge 07/14/2023 1307 by Nano Arango RN Outcome: Adequate for Discharge Problem: Lack of Knowledge: Goal: Ability to develop a pain control plan will improve 07/14/2023 1308 by Nano Arango RN Outcome: Adequate for Discharge 07/14/2023 1307 by Naon Arango RN Outcome: Adequate for Discharge Goal: Ability to identify pain intensity on a pain scale and rate it consistently will improve 07/14/2023 1308 by Nano Arango RN Outcome: Adequate for Discharge 07/14/2023 1307 by Nano Arango RN Outcome: Adequate for Discharge Goal: Ability to notify healthcare provider of pain before it becomes unmanageable or unbearable will improve 07/14/2023 1308 by Nano Arango RN Outcome: Adequate for Discharge 07/14/2023 1307 by Nano Arango RN Outcome: Adequate for Discharge Problem: Medication: Goal: Satisfaction with pain management regimen will improve 07/14/2023 1308 by Nano Arango RN Outcome: Adequate for Discharge 07/14/2023 1307 by Nano Arango RN Outcome: Adequate for Discharge Problem: Sensory: Goal: Ability to identify factors that increase the pain will improve 07/14/2023 1308 by Nano Arango RN Outcome: Adequate for Discharge 07/14/2023 1307 by Nano Arango RN Outcome: Adequate for Discharge Goal: Pain level will decrease 07/14/2023 1308 by Nano Arango RN Outcome: Adequate for Discharge 07/14/2023 1307 by Nano Arango RN Outcome: Adequate for Discharge Problem: Lack of Knowledge: Goal: Ability to state ways to decrease the risk of falls will improve 07/14/2023 1308 by Nano Arango RN Outcome: Adequate for Discharge 07/14/2023 1307 by Nano Arango RN Outcome: Adequate for Discharge Problem: Safety: Goal: Will remain free from falls 07/14/2023 1308 by Nano Arango RN Outcome: Adequate for Discharge 07/14/2023 1307 by Nano Arango RN Outcome: Adequate for Discharge Goal: Will remain free from injury from falls 07/14/2023 1308 by Nano Arango RN Outcome: Adequate for Discharge 07/14/2023 1307 by Nano Arango RN Outcome: Adequate for Discharge Goal: Will remain free from falls and injury in home environment 07/14/2023 1308 by Nano Arango RN Outcome: Adequate for Discharge 07/14/2023 1307 by Nano Arango RN Outcome: Adequate for Discharge Goals: Clinical Goals for the Shift: Monitor labs, VS, tele, I/Os. Diurese with IVP Lasix. Summary: * Plan of Care - Erica Carlton, TEVIN - 07/13/2023 9:36 PM CDT Problem: Respiratory: Goal: Ability to maintain adequate ventilation will improve Outcome: Progressing Home Non Invasive Machine Patient is seen using home unit at night. Patient is tolerating home NIV well. Mask fits well with minimal leak. No skin break down noted. Will continue to monitor and encourage use. * Plan of Care - Nano Arango RN - 07/13/2023 3:00 PM CDT Goals: Clinical Goals for the Shift: Monitor labs, VS, tele, I/Os. Diurese with IVP Lasix. Summary: Problem: Health Behavior: Goal: Understanding of discharge needs will improve Outcome: Adequate for Discharge Problem: Activity: Goal: Mobility will improve Outcome: Adequate for Discharge Problem: Lack of Knowledge: Goal: Understanding of ways to prevent future skin breakdown will improve Outcome: Adequate for Discharge Goal: Ability to identify appropriate dietary choices will improve Outcome: Adequate for Discharge Problem: Nutritional: Goal: Dietary intake will improve Outcome: Adequate for Discharge Goal: Ability to maintain a balanced intake and output will improve Outcome: Adequate for Discharge Problem: Skin Integrity: Goal: Risk for impaired skin integrity will decrease Outcome: Adequate for Discharge Goal: Ability to demonstrate warm and dry skin will improve Outcome: Adequate for Discharge Goal: Circulation will improve to fullest extent possible Outcome: Adequate for Discharge Problem: Cardiac: Goal: Hemodynamic stability will improve Outcome: Adequate for Discharge Goal: Ability to maintain an adequate cardiac output will improve Outcome: Adequate for Discharge Goal: Will show no evidence of cardiac arrhythmias Outcome: Adequate for Discharge Goal: Will show no signs and symptoms of excessive bleeding Outcome: Adequate for Discharge Problem: Lack of Knowledge: Goal: Ability to demonstrate proper wound care will improve Outcome: Adequate for Discharge Goal: Knowledge of disease or condition will improve Outcome: Adequate for Discharge Goal: Knowledge of the prescribed therapeutic regimen will improve Outcome: Adequate for Discharge Problem: Respiratory: Goal: Ability to maintain adequate ventilation will improve Outcome: Adequate for Discharge Problem: Lack of Knowledge: Goal: Ability to develop a pain control plan will improve Outcome: Adequate for Discharge Goal: Ability to identify pain intensity on a pain scale and rate it consistently will improve Outcome: Adequate for Discharge Goal: Ability to notify healthcare provider of pain before it becomes unmanageable or unbearable will improve Outcome: Adequate for Discharge Problem: Medication: Goal: Satisfaction with pain management regimen will improve Outcome: Adequate for Discharge Problem: Sensory: Goal: Ability to identify factors that increase the pain will improve Outcome: Adequate for Discharge Goal: Pain level will decrease Outcome: Adequate for Discharge Problem: Lack of Knowledge: Goal: Ability to state ways to decrease the risk of falls will improve Outcome: Adequate for Discharge Problem: Safety: Goal: Will remain free from falls Outcome: Adequate for Discharge Goal: Will remain free from injury from falls Outcome: Adequate for Discharge Goal: Will remain free from falls and injury in home environment Outcome: Adequate for Discharge * Plan of Care - Sandra Villalpando RN - 07/12/2023 4:33 PM CDT Per Josie SMITH, patient can be seen sooner by [facility]. [facility] HH consult closed and no services set up at this time. * Incidental Note - Josie Coffey RN - 07/12/2023 3:16 PM CDT LUIS Initial Assessment Interview Note Information Obtained From: Patient (07/12/231513) Admission Source: home Impression: repair ascending aortic aneurysm Plan Includes: home with [facility]. [facility] ) care has accepted patient. Primary Source of Transportation: Does the patient need discharge transport arranged?: No (07/12/231513) Health Insurance Coverage: Medicare Prescription Coverage: yes Pharmacy: [id number] - [place] [address] - [place] [id number] Primary Care Provider: Radha Lozada MD Prior to Admission: Functional Status: Independent with ADLs Primary Caregiver: Self Support System: Spouse/Significant Other Home Care Services: No Durable Medical Equipment: None Living Arrangements: Spouse/significant other Type of Residence: Private residence Medication management: Independent (07/12/231513) SDOH: Transportation: In the past 12 months, has lack of transportation kept you from medical appointments or from getting medications?: No In the past 12 months, has lack of transportation kept you from meetings, work, or from getting things needed for daily living?: No (07/12/231515) Financial Resource: How hard is it for you to pay for the very basics like food, housing, medical care, and heating?: Not very hard (07/12/231515) Housing: In the last 12 months, was there a time when you were not able to pay the mortgage or rent on time?: No In the last 12 months, how many places have you lived?: 1 In the last 12 months, was there a time when you did not have a steady place to sleep or slept in ashelter (including now)?: No (07/12/231515) Social Connections: In a typical week, how many times do you talk on the phone with family, friends, or neighbors?: More than three times a week How often do you get together with friends or relatives?: More than three times a week How often do you attend gnosticist or christianity services?: More than 4 times per year Do you belong to any clubs or organizations such as gnosticist groups, unions, fraternal or athletic groups, or school groups?: Yes How often do you attend meetings of the clubs or organizations you belong to?: 1 to 4 times per year Are you , , , , never , or living with a partner?: (07/12/231515) Food Insecurity: Within the past 12 months, you worried that your food would run out before you got the money to buymore.: Never true Within the past 12 months, the food you bought just didn't last and you didn't have money to get more.: Never true (07/12/231515) Alcohol Use: PHQ Screening Potential discharge needs include: Home Health: [facility] (07/12/231513) Dialysis: Behavioral Health Services: Behavioral Health Services: No (07/12/231513) Patient expects to be Discharged to: Private residence, (07/12/231513) Additional Information: Lives at home with . 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 Discharge plan to return home with . Home health care orders received. [place] home health care referrals sent via [employer]. Patient informed of accepting home health care agencies and has chosen [facility] home health care. Patient's Identified Problem/Goal Problem: Ensure acute medical [...] Collaboration with patient, MD, direct care nurse, Atm Technician, and other members of the health care team to assure needed interventions completed. 2. Return patient to optimal level of self-care post discharge. 3. Pin Inserter Regulator will follow for Discharge Planning - interventions as needed 4. Anticipated level of care at discharge 5. Planned Discharge Disposition Josie Coffey RN * Plan of Care - Sandra Villalpando RN - 07/12/2023 2:[address] [facility] Home Health consult received. [facility] Home Care agency accepted patient with projected start of care 07/20/2023 with completed referral and discharge 07/15/2023. Josie SMITH, notified. * Plan of Care - Cassandra Solano RN - 07/12/2023 10:43 AM CDT Goals: Clinical Goals for the Shift: monitor vital signs and tele, track I&O, manage pain, encourage IS use Summary: patient stable throughout shift. CT output of 40 mL. Pain managed with q3h oxy, patient afebrile and voiding well. Patient ambulated in room and worked with therapies, which he tolerated well. * Plan of Care - Kizzy Figueroa RRT - 07/11/2023 11:54 PM CDT Problem: Respiratory: Goal: Ability to maintain adequate ventilation will improve Outcome: Progressing Home Non Invasive Machine Patient is seen using home unit at night. Patient is tolerating home NIV well. Mask fits well with minimal leak. No skin break down noted. Will continue to monitor and encourage use. * Plan of Care - Cassandra Solano RN - 07/11/2023 5:58 PM CDT Goals: Clinical Goals for the Shift: monitor vital signs and tele, manage pain, orientate to unit Summary: patient stable throughout shift; very brief episode of afib that resolved quickly, oral temperature of 101.8f recorded (PA notified). Patient reported minimal pain. Patient instructed to useincentive spirometer and report any changes. * Plan of Care - Rory Wu RN - 07/11/2023 9:46 AM CDT Goals: Clinical Goals for the Shift: VSS; PT/OT; control pain; transfer PCU Summary: Patient Alert and Oriented x 4. VSS. Pain well controlled with oral analgesics. Worked with PT/OT this a.m. * Plan of Care - Brittany Fam - 07/11/2023 5:15 AM CDT Goals: Clinical Goals for the Shift: VSS, pain control, comfort measures, monitor labs, I/O Summary: Pt very restless and rolling around in bed, pulling at gown and lines. Clyde noted to be pulled out. Emani JOHNSON notified, deidre DC'd, introducer remained. Doses of oxy and dilaudid for pain control. Pt rested on home CPAP with 2-5L O2 bleed-in. * Plan of Care - Kizzy Figueroa RRT - 07/10/2023 7:34 PM CDT Problem: Respiratory: Goal: Ability to maintain adequate ventilation will improve Outcome: Progressing Home Non Invasive Machine Patient is seen using home unit at night. Patient is tolerating home NIV well. Mask fits well with minimal leak. No skin break down noted. Will continue to monitor and encourage use. * Plan of Care - Rory Wu RN - 07/10/2023 4:30 PM CDT Goals: Clinical Goals for the Shift: VSS: control pain; promote rest; maintain safety; monitor labs and I&Os Summary: Patient arrived from OR to CVR being bagged by Anesthesia. Connected to ventilator by RT and connected to Byrne monitor by RN. Chest tubes connected to -20 cm H2O wall suction. All lines/gtts connected. Pulmonary artery catheter in the right internal jugular location and arterial line in the right and left radial locations. IV gtts infusing from the OR: Propofol. Initial CI: 2.0. Rhyth m: NSR. Bedside OR report by DALLAS Gonzalez and Dr Mckinney. OG to LIS. Labs drawn and sent. Assessment per flow sheet. Family updated at bedside. * Op Note - Keaton Lynn MD - 07/10/2023 12:00 PM CDT OPERATIVE REPORT SURGEON Keaton Lynn MD ASSITANT DALLAS Aguila PREOPERATIVE DIAGNOSES 1. Ascending, root, and proximal aortic arch aneurysm 2. Severe aortic regurgitation POSTOPERATIVE DIAGNOSES Same PROCEDURE PERFORMED 1. Tissue composite root replacement via modified bentall (Konnect Conduit Reislia tissue valve 25 mm / 28 mm Gelweave Valsalva graft) 2. Isolation of the arch vessel for selective perfusion 3. Hemiarch replacement (28 mm) 4. Sternal plating 2 8 hole H plates and 16 screws. Total Bypass Time: 128 minutes Cross Clamp Time: 97 minutes Selective antegrade at 26 degrees C: 15 minutes Myocardial Protection: KBC ANESTHESIA General Endotracheal Anesthesia ANESTHESIOLOGIST Herbie Mckinney MD COMPLICATIONS None SPECIMENS Ascending aorta CONDITION Stable, intubated to the cardiovascular ICU. DESCRIPTION OF PROCEDURE Patient was taken to the operating theater and was endotracheally intubated, monitored appropriately by anesthesia using cerebral oximetry and a Clyde-Jered catheter, and prepped and draped in sterile fashion. KELLEY define the presence of severe aortic regurgitation. A mini sternotomy was completed t'madan the third interspace. A pericardial cradle was suspended. After adequate heparinization, we thencannulated the mid ascending aorta and the right femoral vein using ultrasound guidance for cardiopulmonary bypass. With an ACT greater than 350 we then commenced cardiopulmonary bypass and began cooling. The innominate artery was cannulated separately for selective perfusion. The aorta was cross-clamped. The aorta was then opened just above the sinotubular junction and transected. Direct ostial cold antegrade [facility] cardioplegia was given with a quick diastolic arrest and additional cardioplegia was given intervals of 60 min or less per our protocol. The pulmonary artery was then mobilized away from the aneurysmal aorta and the ascending aorta was resected up to 5 mm from the cross-clamp. We then inspected the aneurysmal aortic root and the aortic valve which had aortic regurgitation. The valve was trileaflet with a chronic right leaflet prolapse and removed in its entirety. A few areas of additional calcification were debrided from the annulus. At this point we had cooled sufficiently. The arch vessels were clamped. Selective antegrade perfusion was used. The arota was resected up to the innominate artery and the lesser curve was removed. Abeveled 28 mm gelweave graft was used. The distal was completed with running 4-0 prolene. The graftwas re-cannulated and the flows were resumed. A 25 mm Konnect conduit tissue valve was sized appropriately. The conduit was then secured using multiple horizontal mattress 2-0 ethibond pledgeted sutures secured in place in a super annular type technique. An additional running layer was completed with 2-0 ethibond. Coronary buttons were tailored appropriately and the button sites were created in the graft with the graft cutting device. Both button anastomoses were completed in a running fashion with 5-0 Prolene suture. The composite conduitwas then pressure tested with cold blood cardioplegia and areas concerning for hemostasis in the buttons were controlled with additional 5-0 Prolene suture. The graft to graft anastomosis was completed in a running fashion with 4-0 Prolene suture. A de-airing needle was placed in the high point of the mahesh ascending aorta and after performing aggressive de-airing maneuvers the cross-clamp was removed. After a few minutes the heart began beatingin a slow sinus rhythm. We then completed de-airing maneuvers and from bypass without difficulty. We inspected the aortic valve and found it to be functioning properly with no paravalvular leak . We then removed the venous cannulas and gave protamine. the was bleeding from the innominate distal suture line area which was repaired with 4-0 pledgeted sutures. We spent time securing excellent hemostasis. The thymic tissues were then reapproximated over the mahesh ascending aorta and the innominate vein. We placed a mediastinal drain. The sternum was closed with a combination of fiber tapeand sternal wires. Ti was further reinforced with 2 8 hole H plates and 16 screws. The fascia wasclosed with 1 Vicryl, and the skin was closed with Monocryl further reinforced with Dermabond dressing. I was present scrubbed for the entirety of the procedure. All needle, sponge, and instrument countswere correct at the completion of the procedure. Keaton Lynn M.D. 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 1 Occurrences starting 07/12/2023 until 01/10/2024 documented as of this encounter Procedures Procedure Name Priority Date/Time Associated Diagnosis Comments XR CHEST 1 VIEW IP Routine 07/14/2023 6:50 AM CDT EGFR Routine 07/14/2023 1:34 AM CDT CBC WITHOUT DIFFERENTIAL Routine 07/14/2023 1:34 AM CDT MAGNESIUM Routine 07/14/2023 1:34 AM CDT RENAL FUNCTION PANEL Routine 07/14/2023 1:34 AM CDT CALCIUM, IONIZED Routine 07/14/2023 1:31 AM CDT XR CHEST 1 VIEW IP Routine 07/13/2023 6:39 AM CDT EGFR Routine 07/13/2023 12:49 AM CDT CALCIUM, IONIZED Routine 07/13/2023 12:4 9 AM CDT CBC WITHOUT DIFFERENTIAL Routine 07/13/2023 12:49 AM CDT MAGNESIUM Routine 07/13/2023 12:49 AM CDT RENAL FUNCTION PANEL Routine 07/13/2023 12:49 AM CDT POCT GLUCOSE DEVICE Routine 07/12/2023 1 2:07 PM CDT POCT GLUCOSE DEVICE Routine 07/12/2023 8 :20 AM CDT XR CHEST 1 VIEW IP Routine 07/12/2023 6:44 AM CDT ECG 12-LEAD Routine 07/12/2023 2:01 AM CDT EGFR Routine 07/12/2023 12:25 AM CDT CALCIUM, IONIZED Routine 07/12/2023 12:2 5 AM CDT CBC WITHOUT DIFFERENTIAL Routine 07/12/2023 12:25 AM CDT MAGNESIUM Routine 07/12/2023 12:25 AM CDT RENAL FUNCTION PANEL Routine 07/12/2023 12:25 AM CDT POCT GLUCOSE DEVICE Routine 07/11/2023 9 :24 PM CDT EGFR Timed 07/11/2023 8:25 PM CDT MAGNESIUM Timed 07/11/2023 8:25 PM CDT RENAL FUNCTION PANEL Timed 07/11/2023 8:25 PM CDT POCT GLUCOSE DEVICE Routine 07/11/2023 5 :16 PM CDT POCT GLUCOSE DEVICE Routine 07/11/2023 1 1:10 AM CDT LACTATE Timed 07/11/2023 11:06 AM CDT CRITICAL CARE Routine 07/11/2023 9:27 AM CDT Aneurysm of ascending aorta without rupture (HCC) POCT GLUCOSE DEVICE Routine 07/11/2023 7 :53 AM CDT POCT GLUCOSE DEVICE Routine 07/11/2023 6 :15 AM CDT XR CHEST 1 VIEW IP Routine 07/11/2023 5:53 AM CDT POCT GLUCOSE DEVICE Routine 07/11/2023 4 :32 AM CDT POCT GLUCOSE DEVICE Routine 07/11/2023 2 :39 AM CDT PREPARE RBC STAT 07/11/2023 1:47 AM CDT LACTATE Routine 07/11/2023 12:52 AM CDT EGFR Routine 07/11/2023 12:52 AM CDT CALCIUM, IONIZED Routine 07/11/2023 12:5 2 AM CDT CBC WITHOUT DIFFERENTIAL Routine 07/11/2023 12:52 AM CDT HC ANTIBODY SCREEN RBC Timed 07/11/2023 12:52 AM CDT MAGNESIUM Routine 07/11/2023 12:52 AM CDT RENAL FUNCTION PANEL Routine 07/11/2023 12:52 AM CDT POCT GLUCOSE DEVICE Routine 07/11/2023 1 2:50 AM CDT POCT GLUCOSE DEVICE Routine 07/11/2023 1 2:08 AM CDT POCT GLUCOSE DEVICE Routine 07/10/2023 1 1:13 PM CDT POCT GLUCOSE DEVICE Routine 07/10/2023 8 :36 PM CDT OXYHEMOGLOBIN, CENTRAL VENOUS STAT 07/10/2023 8:32 PM CDT CRITICAL CARE Routine 07/10/2023 6:36 PM CDT Aneurysm of ascending aorta without rupture (HCC) POCT GLUCOSE DEVICE Routine 07/10/2023 6 :34 PM CDT CRITICAL CARE Routine 07/10/2023 6:04 PM CDT Aneurysm of ascending aorta without rupture (HCC) XR CHEST 1 VIEW ED Urgent/IP Urgent 07/10/2023 4:56 PM CDT EGFR STAT 07/10/2023 4:26 PM CDT CALCIUM, IONIZED STAT 07/10/2023 4:26 PM CDT POCT GLUCOSE DEVICE Routine 07/10/2023 4 :26 PM CDT APTT STAT 07/10/2023 4:26 PM CDT PROTIME-INR STAT 07/10/2023 4:26 PM CDT CBC WITHOUT DIFFERENTIAL STAT 07/10/2023 4:26 PM CDT PHOSPHORUS STAT 07/10/2023 4:26 PM CDT MAGNESIUM STAT 07/10/2023 4:26 PM CDT BLOOD GAS, ARTERIAL STAT 07/10/2023 4 :26 PM CDT BASIC METABOLIC PANEL STAT 07/10/2023 4:26 PM CDT CV HYBRID ROOM (DEFAULT ORDERABLE) Routine 07/10/2023 4:11 PM CDT Aneurysm of ascending aorta without rupture (HCC) APTT STAT 07/10/2023 4:02 PM CDT PROTIME-INR STAT 07/10/2023 4:02 PM CDT FIBRINOGEN STAT 07/10/2023 4:02 PM CDT CBC WITHOUT DIFFERENTIAL STAT 07/10/2023 4:01 PM CDT SURGICAL PATHOLOGY Routine 07/10/2023 3: 59 PM CDT Aneurysm of ascending aorta without rupture (HCC) XR CHEST 1 VIEW IP Routine 07/10/2023 3:47 PM CDT POCT ACTIVATED CLOTTING TIME, HIGH RANGE Routine 07/10/2023 3:36 PM CDT POC BLOOD GAS AND CHEMISTRIES, ARTERIAL Routine 07/10/2023 3:36 PM CDT TRANSFUSE PLASMA Timed 07/10/2023 3:09 PM CDT TRANSFUSE PLASMA Timed 07/10/2023 3:01 PM CDT POC BLOOD GAS AND CHEMISTRIES, ARTERIAL Routine 07/10/2023 3:00 PM CDT POCT ACTIVATED CLOTTING TIME, HIGH RANGE Routine 07/10/2023 2:59 PM CDT TRANSFUSE PLATELETS Timed 07/10/2023 2 :55 PM CDT PREPARE PLASMA STAT 07/10/2023 2:42 PM CDT POC BLOOD GAS AND CHEMISTRIES, ARTERIAL Routine 07/10/2023 2:30 PM CDT POCT ACTIVATED CLOTTING TIME, HIGH RANGE Routine 07/10/2023 2:29 PM CDT POC BLOOD GAS AND CHEMISTRIES, ARTERIAL Routine 07/10/2023 1:58 PM CDT POCT ACTIVATED CLOTTING TIME, HIGH RANGE Routine 07/10/2023 1:57 PM CDT POC BLOOD GAS AND CHEMISTRIES, ARTERIAL Routine 07/10/2023 1:43 PM CDT POCT ACTIVATED CLOTTING TIME, HIGH RANGE Routine 07/10/2023 1:42 PM CDT POC BLOOD GAS AND CHEMISTRIES, ARTERIAL Routine 07/10/2023 1:12 PM CDT POCT ACTIVATED CLOTTING TIME, HIGH RANGE Routine 07/10/2023 1:11 PM CDT POC BLOOD GAS AND CHEMISTRIES, VENOUS Routine 07/10/2023 12:52 PM CDT POCT ACTIVATED CLOTTING TIME, HIGH RANGE Routine 07/10/2023 12:46 PM CDT POC BLOOD GAS AND CHEMISTRIES, ARTERIAL Routine 07/10/2023 12:46 PM CDT POCT ACTIVATED CLOTTING TIME, HIGH RANGE Routine 07/10/2023 12:31 PM CDT POC BLOOD GAS AND CHEMISTRIES, ARTERIAL Routine 07/10/2023 12:09 PM CDT POCT ACTIVATED CLOTTING TIME, HIGH RANGE Routine 07/10/2023 12:08 PM CDT B CHECK SAMPLE STAT 07/10/2023 10:12 AM CDT APTT STAT 07/10/2023 10:12 AM CDT PROTIME-INR STAT 07/10/2023 10:12 AM CDT HEMOGLOBIN A1C STAT 07/10/2023 10:12 AM CDT PREPARE PLATELETS STAT 07/10/2023 9:4 3 AM CDT PREPARE RBC STAT 07/10/2023 9:43 AM CDT documented in this encounter Results * XR Chest 1 View - Portable - in AM (07/14/2023 6:50 AM CDT) Anatomical Region Laterality Modality Body, Chest N/A Computed Radiogr aphy 07/14/2023 8:15 AM CDT Impressions 07/14/2023 8:15 AM CDT Comparison is made to single view chest radiograph dated 07/13/2023. Right internal jugular central venous catheter tip overlies the superior vena cava. ??Median sternotomy wires and sternal plates are unchanged. ??Bioprosthetic aortic valve. ??Mediastinal drain has been removed. Lung volumes are small with left greater than right bibasilar atelectasis. ??Stable small left greater than right pleural effusions. No pneumothorax. ??Cardiomediastinal silhouette is stable. Electronically signed by: Chao Rodríguez M.D. Narrative 07/14/2023 8:15 AM CDT EXAMINATION: 1 view chest radiograph Procedure Note Chao Rodríguez MD - 07/14/2023 EXAMINATION: 1 view chest radiograph IMPRESSION: Comparison is made to single view chest radiograph dated 07/13/2023. Right internal jugular central venous catheter tip overlies the superior vena cava. Median sternotomy wires and sternal plates are unchanged. Bioprosthetic aortic valve. Mediastinal drain has been removed. Lung volumes are small with left greater than right bibasilar atelectasis. Stable small left greater than right pleural effusions. No pneumothorax. Cardiomediastinal silhouette is stable. Electronically signed by: Chao Rodríguez M.D. Kalen Rivera DNP IMG XR PROCEDURES Fi nal Result * eGFR (07/14/2023 1:34 AM CDT) eGFR 91 mL/min/1. 73 m2 [facility] Comment: Interpretive Data Reference Interval Normal ?>/= [...] interpretive data was last reviewed 2021. Blood 07/14/2023 1:34 AM CDT 07/14/2023 1:34 AM CDT Kalen Rivera [facility] LAB BLOOD ORDERABLES Final Result [facility] [address] [facility] [place] [address] * Magnesium (07/14/2023 1:34 AM CDT) [facility] Magnesium 2.2 1.4 - 2.5 mg/dL [facility] Blood 07/14/2023 1:34 AM CDT 07/14/2023 1:34 AM CDT Kalen Rivera [facility] LAB BLOOD ORDERABLES Final Result Performing Organization Address [facility] de Phone Number [facility] [address] [place] [address] * (ABNORMAL) Renal function panel (07/14/2023 1:34 AM CDT) [facility] Sodium 136 135 - 145 mmol/L [facility] Potassium, pl 3.9 3.3 - 4.9 mmol/L [facility] Chloride 98 97 - 110 mmol/L [facility] CO2 27 22 - 32 mmol/L [facility] Anion gap 11 2 - 15 mmol/L [facility] BUN 19 6 - 25 mg/dL [facility] Creatinine 0.81 0.80 - 1.30 mg/dL [facility] Glucose 105 70 - 199 mg/dL [facility] Comment: Interpretive Data Fasting glucose [...] interpretive data was last revised 2022. Calcium 8.3(L) 8.5 - 10.3 mg/dL [facility] Phosphorus, pl 2.3 2.3 - 4.5 mg/dL [facility] Albumin 3.2(L) 3.5 - 5.0 g/dL [facility] Blood 07/14/2023 1:34 AM CDT 07/14/2023 1:34 AM CDT Kalen Rivera [facility] LAB BLOOD ORDERABLES Final Result [facility] [address] Department [place] [address] * (ABNORMAL) CBC without differential (07/14/2023 1:34 AM CDT) WBC 11.1(H) 3.8 - 9.9 K/cumm [facility] Hgb 10.4(L) 13.0 - 17.5 g/dL [facility] Hct 31.1(L) 38.9 - 50.3 % [facility] Plt 145(L) 150 - 400 K/cumm [facility] MPV 9.5 9.1 - 12.3 fL [facility] RBC 3.14(L) 4.30 - 5.80 M/cumm [facility] MCV 99.0(H) 81.3 - 96.4 fL [facility] MCH 33.1 27.1 - 33.3 pg [facility] MCHC 33.4 32.3 - 35.7 g/dL [facility] RDW CV 13.4 11.1 - 14.9 % [facility] RDW SD 48.2(H) 35.7 - 48.1 fL [facility] NRBC abs 0.02(H) 0.00 - 0.01 K/cumm [facility] Blood 07/14/2023 1:34 AM CDT 07/14/2023 1:34 AM CDT Kalen Rivera [facility] LAB BLOOD ORDERABLES Final Result Performing Organization Address City/[facility]/ZIP Co de Phone Number [facility] [address] Department [place] [address] * (ABNORMAL) Calcium, ionized (07/14/2023 1:31 AM CDT) Calcium, Ionized 4.33(L) 4.50 - 5.10 mg/dL [facility] Blood 07/14/2023 1:31 AM CDT 07/14/2023 1:31 AM CDT [facility]LOOD ORDERABLES Final Result Performing Organization Address [facility] Co de Phone Number [facility] [address] Department [place] [address] * XR Chest 1 View - Portable - in AM (07/13/2023 6:39 AM CDT) Anatomical Region Laterality Modality Body, Chest N/A Computed Radiogr aphy 07/13/2023 7:33 AM CDT Impressions 07/13/2023 7:33 AM CDT Comparison is made to 07/04/2023. ??Right internal jugular catheter tip overlies the superior vena cava. ??Mediastinal wires and plates unchanged in position. ??There is a drain overlying the mediastinum. ??There are small lung volumes a small bilateral pleural effusions and bibasilar atelectasis. ??The heart size is stable. Electronically signed by: Ha Vincent M.D. Narrative 07/13/2023 7:33 AM CDT EXAMINATION: Chest 1 view frontal HISTORY: Pleural effusion Procedure Note Ha Vincent MD - 07/13/2023 EXAMINATION: Chest 1 view frontal HISTORY: Pleural effusion IMPRESSION: Comparison is made to 07/04/2023. Right internal jugular catheter tip overlies the superior vena cava. Mediastinal wires and plates unchanged in position. There is a drain overlying the mediastinum. There are small lung volumes a small bilateral pleural effusions and bibasilar atelectasis. The heart size is stable. Electronically signed by: Ha Vincent M.D. Kalen Rivera DNP IMG XR PROCEDURES Fi nal Result * eGFR (07/13/2023 12:49 AM CDT) eGFR 89 mL/min/1. 73 m2 [facility] Comment: Interpretive Data Reference Interval Normal ?>/= [...] interpretive data was last reviewed 2021. Blood 07/13/2023 12:4 9 AM CDT 07/13/2023 1:06 AM CDT Kalen Rivera DNP LAB BLOOD ORDERABLES Final Result [facility] [address] Department [place] [address] * Magnesium (07/13/2023 12:49 AM CDT) Pathologist [facility] Magnesium 1.9 1.4 - 2.5 mg/dL [facility] Blood 07/13/2023 12:4 9 AM CDT 07/13/2023 1:06 AM CDT Kalen Rivera [facility] LAB BLOOD ORDERABLES Final Result Performing Organization Address City/[facility]/ZIP Co de Phone Number [facility] [address] [facility] [place] [address] * (ABNORMAL) Calcium, ionized (07/13/2023 12:49 AM CDT) [facility] Calcium, Ionized 4.46(L) 4.50 - 5.10 mg/dL [facility] Blood 07/13/2023 12:4 9 AM CDT 07/13/2023 1:03 AM CDT Kalen Rivera [facility] LAB BLOOD ORDERABLES Final Result Performing Organization Address City/[facility]/ZIP Co de Phone Number [facility] [address] [place] [place] [address] * (ABNORMAL) Renal function panel (07/13/2023 12:49 AM CDT) [facility] Sodium 132(L) 135 - 145 mmol/L [facility] Potassium, pl 3.8 3.3 - 4.9 mmol/L [facility] Chloride 97 97 - 110 mmol/L [facility] CO2 26 22 - 32 mmol/L [facility] Anion gap 9 2 - 15 mmol/L [facility] BUN 17 6 - 25 mg/dL [facility] Creatinine 0.87 0.80 - 1.30 mg/dL [facility] Glucose 128 70 - 199 mg/dL [facility] Comment: Interpretive Data Fasting glucose [...] 2022. Calcium 8.5 8.5 - 10.3 mg/dL [facility] Phosphorus, pl 1.6(L) 2.3 - 4.5 mg/dL [facility] Albumin 3.4(L) 3.5 - 5.0 g/dL [facility] Blood 07/13/2023 12:4 9 AM CDT 07/13/2023 1:06 AM CDT us Kalen Rivera [facility] LAB BLOOD ORDERABLES Final Result [facility] [address] Department of Laboratories [place], [place] [id number] * (ABNORMAL) CBC without differential (07/13/2023 12:49 AM CDT) WBC 10.4(H) 3.8 - 9.9 K/cumm [facility] Hgb 10.4(L) 13.0 - 17.5 g/dL [facility] Hct 30.1(L) 38.9 - 50.3 % [facility] Plt 115(L) 150 - 400 K/cumm [facility] MPV 9.6 9.1 - 12.3 fL [facility] RBC 3.13(L) 4.30 - 5.80 M/cumm [facility] MCV 96.2 81.3 - 96.4 fL [facility] MCH 33.2 27.1 - 33.3 pg [facility] MCHC 34.6 32.3 - 35.7 g/dL [facility] RDW CV 13.2 11.1 - 14.9 % [facility] RDW SD 45.8 35.7 - 48.1 fL [facility] NRBC abs 0.00 0.00 - 0.01 K/cumm [facility] Blood 07/13/2023 12:4 9 AM CDT 07/13/2023 1:07 AM CDT Kalen Rivera DNP LAB BLOOD ORDERABLES Final Result Performing Organization Address [facility]/ZIP Co de Phone Number [facility] [address] Department [place] [address] * POCT glucose (07/12/2023 12:07 PM CDT) Glucose, POC 105 70 - 140 mg/dL [facility] Comment: For Glucose values <35 mg/dl when Hematocrit is >60 mg/dl,the test may not accurately detect significant hypoglycemia,and testing in the Laboratory should be considered if clinically indicated. Blood 07/12/2023 12:0 7 PM CDT 07/12/2023 12:07 PM CDT Result [facility] Keaton Lynn MD LAB POCT ORDERABLES - DE VICE Final Result Performing Organization Address [facility] Co de Phone Number [facility] [address] [facility] [place] [address] * POCT glucose (07/12/2023 8:20 AM CDT) Glucose, POC 118 70 - 140 mg/dL [facility] Comment: For Glucose values <35 mg/dl when Hematocrit is >60 mg/dl,the test may not accurately detect significant hypoglycemia,and testing in the Laboratory should be considered if clinically indicated. Blood 07/12/2023 8:20 AM CDT 07/12/2023 8:20 AM CDT Keaton Lynn MD LAB POCT ORDERABLES - DE VICE Final Result Performing Organization Address [facility] Co de Phone Number [facility] [address] [place] [address] * XR Chest 1 View - Portable - in AM (07/12/2023 6:44 AM CDT) Anatomical Region Laterality Modality Body, Chest N/A Computed Radiogr aphy 07/12/2023 10:1 1 AM CDT Impressions 07/12/2023 4:32 PM CDT Sternal wires in place are unchanged and well aligned. Right internal jugular central venous catheter terminates to superior cavoatrial junction. ??Prosthetic aortic valve. Small lung volumes. ??Increased left lower lobe consolidation likely representing a combination of pleural effusion and atelectasis. Right basilar atelectasis with small posterior layering pleural effusion. ??Cardiomediastinal silhouette is unchanged. Dictated by: Tania Harvey M.D. The radiology attending physician has personally reviewed this study, and had reviewed and/or edited this written report and agrees with it. Electronically signed by: Kilo Rosario M.D. Narrative 07/12/2023 4:32 PM CDT EXAMINATION: XR CHEST 1 VIEW HISTORY: Pleural effusion COMPARISON: 07/11/2023 Procedure Note Kilo Rosario MD - 07/12/2023 EXAMINATION: XR CHEST 1 VIEW HISTORY: Pleural effusion COMPARISON: 07/11/2023 IMPRESSION: Sternal wires in place are unchanged and well aligned. Right internal jugular central venous catheter terminates to superior cavoatrial junction. Prosthetic aortic valve. Small lung volumes. Increased left lower lobe consolidation likely representing a combination of pleural effusion and atelectasis. Right basilar atelectasis with small posterior layering pleural effusion. Cardiomediastinal silhouette is unchanged. Dictated by: Tania Harvey M.D. The radiology attending physician has personally reviewed this study, and had reviewed and/or edited this written report and agrees with it. Electronically signed by: Kilo Rosario M.D. Kalen Rivera [facility] IMG XR PROCEDURES Fi nal Result * ECG 12 lead (07/12/2023 2:01 AM CDT) 07/12/2023 2:[address] [facility] - 07/12/2023 5:01 PM CDT Vent Rate: 87 bpm RR Interval: 683 msec [place] Interval: 126 msec QRS Duration: 100 msec QT Interval: 373 msec QTC Interval: 418 msec P-R-T Draper: 0 - -28 - 38 degrees IMPRESSION: SINUS RHYTHM WITH SINUS ARRHYTHMIA BORDERLINE LEFT AXIS DEVIATION BORDERLINE ECG Electronically Signed By: Rory Dowling MD [facility] us Kathryn Richey [employer] ECG ORDERABLES Final Res ult [facility] * eGFR (07/12/2023 12:25 AM CDT) eGFR 76 mL/min/1. 73 m2 [facility] Comment: Interpretive Data Reference Interval Normal ?>/= [...] interpretive data was last reviewed 2021. Blood 07/12/2023 12:2 5 AM CDT 07/12/2023 12:39 AM CDT us Kalen Rivera [facility] LAB BLOOD ORDERABLES Final Result Performing Organization Address City/[facility]/ZIP Co de Phone Number [facility] [address] [facility] [place] [address] * Magnesium (07/12/2023 12:25 AM CDT) [facility] Magnesium 2.4 1.4 - 2.5 mg/dL [facility] Comment:Reviewed Blood 07/12/2023 12:2 5 AM CDT 07/12/2023 12:39 AM CDT Kalen Rivera [facility] LAB BLOOD ORDERABLES Final Result Performing Organization Address [facility] Co de Phone Number [facility] [address] [place] [address] * Calcium, ionized (07/12/2023 12:25 AM CDT) [facility] Calcium, Ionized 4.59 4.50 - 5.10 mg/dL [facility] Blood 07/12/2023 12:2 5 AM CDT 07/12/2023 12:33 AM CDT Kalen Rivera [facility] LAB BLOOD ORDERABLES Final Result Performing Organization Address City/[facility]/ZIP Co de Phone Number [facility] [address] Department [place] [address] * (ABNORMAL) Renal function panel (07/12/2023 12:25 AM CDT) [facility] Sodium 133(L) 135 - 145 mmol/L [facility] Potassium, pl 4.2 3.3 - 4.9 mmol/L [facility] Chloride 98 97 - 110 mmol/L [facility] CO2 25 22 - 32 mmol/L [facility] Anion gap 10 2 - 15 mmol/L [facility] BUN 20 6 - 25 mg/dL [facility] Creatinine 1.02 0.80 - 1.30 mg/dL [facility] Glucose 119 70 - 199 mg/dL [facility] Comment: Interpretive Data Fasting glucose [...] interpretive data was last revised 2022. Calcium 8.6 8.5 - 10.3 mg/dL [facility] Phosphorus, pl 2.7 2.3 - 4.5 mg/dL [facility] Albumin 3.2(L) 3.5 - 5.0 g/dL [facility] Blood 07/12/2023 12:2 5 AM CDT 07/12/2023 12:39 AM CDT Kalen Rivera [facility] LAB BLOOD ORDERABLES Final Result [facility] [address] Department [place] [address] * (ABNORMAL) CBC without differential (07/12/2023 12:25 AM CDT) WBC 12.0(H) 3.8 - 9.9 K/cumm [facility] Hgb 11.0(L) 13.0 - 17.5 g/dL [facility] Hct 32.8(L) 38.9 - 50.3 % [facility] Plt 129(L) 150 - 400 K/cumm [facility] MPV 9.9 9.1 - 12.3 fL [facility] RBC 3.32(L) 4.30 - 5.80 M/cumm [facility] MCV 98.8(H) 81.3 - 96.4 fL [facility] MCH 33.1 27.1 - 33.3 pg [facility] MCHC 33.5 32.3 - 35.7 g/dL [facility] RDW CV 13.4 11.1 - 14.9 % [facility] RDW SD 48.3(H) 35.7 - 48.1 fL [facility] NRBC abs 0.00 0.00 - 0.01 K/cumm [facility] Blood 07/12/2023 12:2 5 AM CDT 07/12/2023 12:40 AM CDT Kalen Rivera DNP LAB BLOOD ORDERABLES Final Result Performing Organization Address [facility] Co de Phone Number [facility] [address] Department of [employer] [place], [place] [id number] * POCT glucose (07/11/2023 9:24 PM CDT) [facility] Glucose, POC 124 70 - 140 mg/dL [facility] Comment: For Glucose values <35 mg/dl when Hematocrit is >60 mg/dl,the test may not accurately detect significant hypoglycemia,and testing in the Laboratory should be considered if clinically indicated. Blood 07/11/2023 9:24 PM CDT 07/11/2023 9:24 PM CDT Keaton Lynn MD LAB POCT ORDERABLES - DE VICE Final Result Performing Organization Address [facility] Co de Phone Number [facility] [address] Department [place] [address] * eGFR (07/11/2023 8:25 PM CDT) Pathologist [facility] eGFR 83 mL/min/1. 73 m2 [facility] Comment: Interpretive Data Reference Interval Normal ?>/= [...] interpretive data was last reviewed 2021. Blood 07/11/2023 8:25 PM CDT 07/11/2023 8:30 PM CDT Kathryn Richey [employer] LAB BLOOD ORDERABLES Harriet l Result Performing Organization Address City/[facility]/ZIP Co de Phone Number [facility] [address] [place] [address] * Magnesium (07/11/2023 8:25 PM CDT) Magnesium 1.9 1.4 - 2.5 mg/dL [facility] Blood 07/11/2023 8:25 PM CDT 07/11/2023 8:30 PM CDT Kathryn Richey [employer] LAB BLOOD ORDERABLES Harriet l Result Performing Organization Address City/[facility]/ZIP Co de Phone Number [facility] [address] Department [place], [place] [id number] * (ABNORMAL) Renal function panel (07/11/2023 8:25 PM CDT) Sodium 133(L) 135 - 145 mmol/L [facility] Potassium, pl 4.2 3.3 - 4.9 mmol/L [facility] Chloride 99 97 - 110 mmol/L [facility] CO2 27 22 - 32 mmol/L [facility] Anion gap 7 2 - 15 mmol/L [facility] BUN 20 6 - 25 mg/dL [facility] Creatinine 0.94 0.80 - 1.30 mg/dL [facility] Glucose 119 70 - 199 mg/dL [facility] Comment: Interpretive Data Fasting glucose [...] interpretive data was last revised 2022. Calcium 8.7 8.5 - 10.3 mg/dL [facility] Phosphorus, pl 2.9 2.3 - 4.5 mg/dL [facility] Albumin 3.3(L) 3.5 - 5.0 g/dL [facility] Blood 07/11/2023 8:25 PM CDT 07/11/2023 8:30 PM CDT us Kathryn Richey NP LAB BLOOD ORDERABLES Harriet lim Result [facility] [address] Department [place] [address] * POCT glucose (07/11/2023 5:16 PM CDT) [facility] Glucose, POC 114 70 - 140 mg/dL [facility] Comment: For Glucose values <35 mg/dl when Hematocrit is >60 mg/dl,the test may not accurately detect significant hypoglycemia,and testing in the Laboratory should be considered if clinically indicated. Blood 07/11/2023 5:16 PM CDT 07/11/2023 5:16 PM CDT us Keaton Lynn MD LAB POCT ORDERABLES - DE VICE Final Result Performing Organization Address [facility] Co de Phone Number [facility] [address] [facility] [employer] [place], [place] [id number] * POCT glucose (07/11/2023 11:10 AM CDT) Glucose, POC 138 70 - 140 mg/dL [facility] Comment: For Glucose values <35 mg/dl when Hematocrit is >60 mg/dl,the test may not accurately detect significant hypoglycemia,and testing in the Laboratory should be considered if clinically indicated. Blood 07/11/2023 11:1 0 AM CDT 07/11/2023 11:10 AM CDT us Keaton Lynn MD LAB POCT ORDERABLES - DE VICE Final Result Performing Organization Address [facility] de Phone Number [facility] [address] [facility] [place] [address] * Lactate (07/11/2023 11:06 AM CDT) [facility] Lactate 1.4 0.7 - 2.0 mmol/L [facility] Blood 07/11/2023 11:0 6 AM CDT 07/11/2023 11:15 AM CDT us Kalen Rivera DNP LAB BLOOD ORDERABLES Final Result Performing Organization Address [facility] Co de Phone Number [facility] [address] [facility] [employer] [place], [place] [phone] * Critical Care (07/11/2023 9:27 AM CDT) Narrative Kalen Rivera DNP - 07/11/2023 9:27 AM CDT Kalen Rivera DNP ? 07/11/2023 12:23 PM Critical Care Performed by: Kalen Rivera DNP Authorized by: Kalen Rivera DNP ?? CRITICAL CARE: ??Team: ??[facility] ??Shift: ??AM ??Level of Billing: ??Subsequent Hospital Visit Level 3 ??My time spent with this patient was 40 minutes: Critical Provider Statement: I have seen and examined the patient on this day of service. I have reviewed and confirmed the history, physical exam, laboratory, and radiographic data as documented in the ICU note. I have reviewed and discussed my treatment plan with the patient's team and other medical/strategy consultant staff. This time was in addition to and separate from care provided by other practitioners on this day of service. ?? Result [facility] Kalen Rivera DNP IN CLINIC/BEDSIDE OR DERABLES Final Result * (ABNORMAL) POCT glucose (07/11/2023 7:53 AM CDT) Glucose, POC 141(H) 70 - 140 mg/dL [facility] Comment: For Glucose values <35 mg/dl when Hematocrit is >60 mg/dl,the test may not accurately detect significant hypoglycemia,and testing in the Laboratory should be considered if clinically indicated. Blood 07/11/2023 7:53 AM CDT 07/11/2023 7:53 AM CDT Result [facility] Keaton Lynn MD LAB POCT ORDERABLES - DE VICE Final Result [facility] [address] Department [place] [address] * POCT glucose (07/11/2023 6:15 AM CDT) Glucose, POC 117 70 - 140 mg/dL [facility] Comment: For Glucose values <35 mg/dl when Hematocrit is >60 mg/dl,the test may not accurately detect significant hypoglycemia,and testing in the Laboratory should be considered if clinically indicated. Blood 07/11/2023 6:15 AM CDT 07/11/2023 6:15 AM CDT Result [facility] Keaton Lynn MD LAB POCT ORDERABLES - DE VICE Final Result [facility] [address] Department [place] [address] * XR Chest 1 View - Portable - in AM (07/11/2023 5:53 AM CDT) Anatomical Region Laterality Modality Body, Chest N/A Computed Radiogr aphy 07/11/2023 8:15 AM CDT Impressions 07/11/2023 8:15 AM CDT There has been interval extubation and gastric tube removal. ??A right internal jugular Clyde-Jered catheter has been removed. ??A right internal jugular central venous sheath is present. A right internal jugular central venous catheter terminates at the superior vena cava. ??An aortic valve replacement is present. Epicardial pacing wires are present. ??A mediastinal drain is present. Sternal plates and sternal wires are aligned. The lung volumes remain small bilaterally with moderate bibasilar atelectasis. ??There is no definite pleural effusion. ??No pneumothorax is seen. ??The cardiomediastinal silhouette is unchanged. Electronically signed by: Bakari Cabral M.D. Narrative 07/11/2023 8:15 AM CDT EXAMINATION: XR CHEST 1 VIEW COMPARISON: 07/10/2023 4:48 PM Procedure Note Bakari Cabral MD PhD - 07/11/2023 EXAMINATION: XR CHEST 1 VIEW COMPARISON: 07/10/2023 4:48 PM IMPRESSION: There has been interval extubation and gastric tube removal. A right internal jugular Clyde-Jered catheter has been removed. A right internal jugular central venous sheath is present. A right internal jugular central venous catheter terminates at the superior vena cava. An aortic valve replacement is present. Epicardial pacing wires are present. A mediastinal drain is present. Sternal plates and sternal wires are aligned. The lung volumes remain small bilaterally with moderate bibasilar atelectasis. There is no definite pleural effusion. No pneumothorax is seen. The cardiomediastinal silhouette is unchanged. Electronically signed by: Bakari Cabral M.D. Kalen Castilloka DNP IMG XR PROCEDURES Fi nal Result * POCT glucose (07/11/2023 4:32 AM CDT) Glucose, POC 133 70 - 140 mg/dL [facility] Comment: For Glucose values <35 mg/dl when Hematocrit is >60 mg/dl,the test may not accurately detect significant hypoglycemia,and testing in the Laboratory should be considered if clinically indicated. Blood 07/11/2023 4:32 AM CDT 07/11/2023 4:32 AM CDT Keaton Lynn MD LAB POCT ORDERABLES - DE VICE Final Result Performing Organization Address [facility] Co de Phone Number [facility] [address] [employer] [place], [place] [id number] * (ABNORMAL) POCT glucose (07/11/2023 2:39 AM CDT) [facility] Glucose, POC 162(H) 70 - 140 mg/dL [facility] Comment: For Glucose values <35 mg/dl when Hematocrit is >60 mg/dl,the test may not accurately detect significant hypoglycemia,and testing in the Laboratory should be considered if clinically indicated. Blood 07/11/2023 2:39 AM CDT 07/11/2023 2:39 AM CDT Keaton Lynn MD LAB POCT ORDERABLES - DE VICE Final Result Performing Organization Address City/[facility]/ZIP Co de Phone Number [facility] [address] Department [place], [place] [phone] * Prepare RBC (07/11/2023 1:47 AM CDT) Pathologist [facility] Product code [id number] [facility] Unit Number [id number] 6-0 [facility] Product Blood Type OPOS [facility] Dispense Status RETURNED [facility] Product code [id number] [facility] Unit Number [id number] 4-I [facility] Product Blood Type OPOS [facility] Dispense Status RETURNED [facility] Product code [id number] [facility] Unit Number [id number] 5-2 [facility] Product Blood Type OPOS [facility] Dispense Status RETURNED [facility] Product code [id number] [facility] Unit Number [id number] 7-* [facility] Product Blood Type OPOS [facility] Dispense Status RETURNED [facility] Blood 07/11/2023 1:47 AM CDT 07/11/2023 1:47 AM CDT us Keaton Lynn MD BLOOD BANK PRODUCT ORDER EMELYN Final Result [facility] [address] Department [place] [address] * eGFR (07/11/2023 12:52 AM CDT) eGFR 89 mL/min/1. 73 m2 [facility] Comment: Interpretive Data Reference Interval Normal ?>/= [...] interpretive data was last reviewed 2021. Blood 07/11/2023 12:5 2 AM CDT 07/11/2023 1:01 AM CDT Kalen Rivera [facility] LAB BLOOD ORDERABLES Final Result Performing Organization Address City/[facility]/ZIP Co de Phone Number [facility] [address] [facility] [employer] [place], [place] [phone] * (ABNORMAL) Lactate (07/11/2023 12:52 AM CDT) Lactate 3.1(H) 0.7 - 2.0 mmol/L [facility] Blood 07/11/2023 12:5 2 AM CDT 07/11/2023 12:58 AM CDT Laquita Parson [employer] LAB BLOOD ORDERABLES Harriet l Result Performing Organization Address [facility] Co de Phone Number [facility] [address] [facility] [employer] [place], [place] [phone] * Magnesium (07/11/2023 12:52 AM CDT) Magnesium 2.1 1.4 - 2.5 mg/dL [facility] Blood 07/11/2023 12:5 2 AM CDT 07/11/2023 1:01 AM CDT Kalen Rivera [facility] LAB BLOOD ORDERABLES Final Result Performing Organization Address City/[facility] Co de Phone Number [facility] [address] [facility] [employer] [place], [place] [phone] * (ABNORMAL) Calcium, ionized (07/11/2023 12:52 AM CDT) Calcium, Ionized 4.39(L) 4.50 - 5.10 mg/dL [facility] Blood 07/11/2023 12:5 2 AM CDT 07/11/2023 12:58 AM CDT Kalen Rivera [facility] LAB BLOOD ORDERABLES Final Result [facility] [address] Department [place] [address] * (ABNORMAL) Renal function panel (07/11/2023 12:52 AM CDT) Pathologist [facility] Sodium 141 135 - 145 mmol/L [facility] Potassium, pl 4.6 3.3 - 4.9 mmol/L [facility] Chloride 107 97 - 110 mmol/L [facility] CO2 23 22 - 32 mmol/L [facility] Anion gap 11 2 - 15 mmol/L [facility] BUN 18 6 - 25 mg/dL [facility] Creatinine 0.87 0.80 - 1.30 mg/dL [facility] Glucose 176 70 - 199 mg/dL [facility] Comment: Interpretive Data Fasting glucose [...] interpretive data was last revised 2022. Calcium 8.3(L) 8.5 - 10.3 mg/dL [facility] Phosphorus, pl 3.5 2.3 - 4.5 mg/dL [facility] Albumin 3.4(L) 3.5 - 5.0 g/dL [facility] Blood 07/11/2023 12:5 2 AM CDT 07/11/2023 1:01 AM CDT Kalen Rivera [facility] LAB BLOOD ORDERABLES Final Result Performing Organization Address [facility]/ZIP Co de Phone Number [facility] [address] Department [place] [address] * (ABNORMAL) CBC without differential (07/11/2023 12:52 AM CDT) WBC 8.7 3.8 - 9.9 K/cumm [facility] Hgb 10.8(L) 13.0 - 17.5 g/dL [facility] Hct 31.8(L) 38.9 - 50.3 % [facility] Plt 119(L) 150 - 400 K/cumm [facility] MPV 9.7 9.1 - 12.3 fL [facility] RBC 3.25(L) 4.30 - 5.80 M/cumm [facility] MCV 97.8(H) 81.3 - 96.4 fL [facility] MCH 33.2 27.1 - 33.3 pg [facility] MCHC 34.0 32.3 - 35.7 g/dL [facility] RDW CV 13.3 11.1 - 14.9 % [facility] RDW SD 47.7 35.7 - 48.1 fL [facility] NRBC abs 0.00 0.00 - 0.01 K/cumm [facility] Blood 07/11/2023 12:5 2 AM CDT 07/11/2023 1:01 AM CDT Kalen Rivera [facility] LAB BLOOD ORDERABLES Final Result Performing Organization Address City/[facility]/ZIP Co de Phone Number [facility] [address] Department [place] [address] * Type and screen (07/11/2023 12:52 AM CDT) Pathologist [facility] [place]ac[place], indirect Negative [facility] ABO Rh O Positive [facility] Blood 07/11/2023 12:5 2 AM CDT 07/11/2023 12:59 AM CDT Narrative [facility] - 07/11/2023 1:44 AM CDT Has the patient had Daratumumab or Isatuximab in the past 6 months?->Unknown Result [facility] Kalen Rivera [facility] LAB BLOOD BANK TEST ORDERABLES Final Result Performing Organization Address City/[facility]/ZIP Co de Phone Number [facility] [address] Department [place] [address] * (ABNORMAL) POCT glucose (07/11/2023 12:50 AM CDT) Glucose, POC 176(H) 70 - 140 mg/dL [facility] Comment: For Glucose values <35 mg/dl when Hematocrit is >60 mg/dl,the test may not accurately detect significant hypoglycemia,and testing in the Laboratory should be considered if clinically indicated. Blood 07/11/2023 12:5 0 AM CDT 07/11/2023 12:50 AM CDT Result [facility] Keaton Lynn MD LAB POCT ORDERABLES - DE VICE Final Result Performing Organization Address [facility] Co de Phone Number [facility] [address] Department [place] [address] * (ABNORMAL) POCT glucose (07/11/2023 12:08 AM CDT) Glucose, POC 147(H) 70 - 140 mg/dL [facility] Comment: For Glucose values <35 mg/dl when Hematocrit is >60 mg/dl,the test may not accurately detect significant hypoglycemia,and testing in the Laboratory should be considered if clinically indicated. Blood 07/11/2023 12:0 8 AM CDT 07/11/2023 12:08 AM CDT Result [facility] Keaton Lynn MD LAB POCT ORDERABLES - DE VICE Final Result Performing Organization Address [facility]/ZIP Co de Phone Number [facility] [address] Department [place] [address] * (ABNORMAL) POCT glucose (07/10/2023 11:13 PM CDT) Glucose, POC 177(H) 70 - 140 mg/dL [facility] Comment: For Glucose values <35 mg/dl when Hematocrit is >60 mg/dl,the test may not accurately detect significant hypoglycemia,and testing in the Laboratory should be considered if clinically indicated. Blood 07/10/2023 11:1 3 PM CDT 07/10/2023 11:13 PM CDT Keaton Lynn MD LAB POCT ORDERABLES - DE VICE Final Result Performing Organization Address [facility] Co de Phone Number [facility] [address] [facility] [employer] [place], [place] [phone] * (ABNORMAL) POCT glucose (07/10/2023 8:36 PM CDT) Glucose, POC 163(H) 70 - 140 mg/dL [facility] Comment: For Glucose values <35 mg/dl when Hematocrit is >60 mg/dl,the test may not accurately detect significant hypoglycemia,and testing in the Laboratory should be considered if clinically indicated. Blood 07/10/2023 8:36 PM CDT 07/10/2023 8:36 PM CDT Keaton Lynn MD LAB POCT ORDERABLES - DE VICE Final Result Performing Organization Address [facility] Co de Phone Number [facility] [address] [facility] [place] [address] * Oxyhemoglobin, central venous (07/10/2023 8:32 PM CDT) Oxyhemoglobin, CV 72.8 % [facility] Comment: Interpretive Data No reference range established. Current interpretive data was last revised 2019. Blood 07/10/2023 8:32 PM CDT 07/10/2023 8:41 PM CDT Kalen Rivera DNP LAB BLOOD ORDERABLES Final Result Performing Organization Address City/State/[facility] Co de Phone Number [facility] [address] Department [place] [address] * Critical Care (07/10/2023 6:36 PM CDT) Narrative Laquita Parson NP - 07/10/2023 6:36 PM CDT Laquita Parson NP ? 07/11/2023 ??3:32 AM Critical Care Performed by: Laquita Parson NP Authorized by: Laquita Parson NP ?? CRITICAL CARE: ??Team: ??[facility] ??Shift: ??PM ??Level of Billing: ??Subsequent Hospital Visit Level 3 ??My time spent with this patient was 80 minutes: Critical Provider Statement: I have seen and examined the patient on this day of service. I have reviewed and confirmed the history, physical exam, laboratory, and radiographic data as documented in the ICU note. I have reviewed and discussed my treatment plan with the patient's team and other medical/strategy consultant staff. This time was in addition to and separate from care provided by other practitioners on this day of service. ? I spent time documenting in the medical record, I spent time discussing the management of this critically ill patient with consultants and the medical staff and I spent time reviewing and interpreting data from bedside monitors, laboratory results, and imaging Result [facility] Laquita Parson [employer] IN CLINIC/BEDSIDE ORDERAB LES Final Result * (ABNORMAL) POCT glucose (07/10/2023 6:34 PM CDT) [facility] Glucose, POC 155(H) 70 - 140 mg/dL [facility] Comment: For Glucose values <35 mg/dl when Hematocrit is >60 mg/dl,the test may not accurately detect significant hypoglycemia,and testing in the Laboratory should be considered if clinically indicated. Blood 07/10/2023 6:34 PM CDT 07/10/2023 6:34 PM CDT Result [facility] Keaton Lynn MD LAB POCT ORDERABLES - DE VICE Final Result [facility] [address] Department [place] [address] * Critical Care (07/10/2023 6:04 PM CDT) Narrative Kalen Rivera DNP - 07/10/2023 6:04 PM CDT Kalen Rivera DNP ? 07/10/2023 ??6:56 PM Critical Care Performed by: Kalen Rivera DNP Authorized by: Kalen Rivera DNP ?? CRITICAL CARE: ??Team: ??[facility] ??Shift: ??AM ??Level of Billing: ??Critical Care ??My time spent with this patient was 70 minutes: Critical Provider Statement: I have seen and examined the patient on this day of service. I have reviewed and confirmed the history, physical exam, laboratory and radiologic data as documented in the signed ICU note. I have reviewed and discussed my treatment plan with the ICU team and other medical/strategy consultant staff, making frequent assessments and decisions regarding this patient's complex medical care. Critical Care time was exclusive of time spent performing separately billed procedures, treating other patients, and teaching. This time was in addition to and separate from critical care provided by other practitioners in my group on this day of service. Critical Care was necessary to treat or prevent imminent or life-threatening deterioration of the following conditions: ? Acute pain/acute postoperative pain and Agitation requiring sedation ?? Hypotension ?? Atelectasis and Acute respiratory insufficiency ?? Acid-base disturbance and Hypo- or Hyperglycemia ?? Thrombocytopenia and Acute blood loss anemia ?? Leukocytosis ??This time was spent by me doing the following: ? Serial bedside patient exams, Serial laboratory checks, Arterial puncture and Obtaining peripheral venous access or blood draws ?? Acute pain control and Frequent neurologic exams ?? Initiation/active titration of vasoactive medications and Interpretation of cardiac output measurements ?? Active and frequent reassessment of respiratory status and oxygen requirements, Acute airway management and Invasive ventilator management, reassessment, and titration ?? Active and frequent monitoring of intake/output and volumen status, Gastric tube placement and interpretation of results/output and Glycemic control ?? Active repletion of electrolytes ?? Initiation/monitoring/titration of anticoagulants ?? Review of prior or current culture/gram stain results and Empiric broad coverage antibiotics ?? I spent time reviewing and interpreting data from bedside monitors, laboratory results, and imaging, I spent time discussing the management of this critically ill patient with consultants and the medical staff and I spent time documenting in the medical record Kalen Rivera DNP IN CLINIC/BEDSIDE OR DERABLES Final Result * XR Chest 1 View - Portable (07/10/2023 4:56 PM CDT) Anatomical Region Laterality Modality Body, Chest N/A Computed Radiogr aphy 07/10/2023 4:59 PM CDT Impressions 07/10/2023 4:59 PM CDT 1. Negative chest radiograph. COMMENT: Please see above for additional findings. Electronically signed by: Ramone Andrade M.D. Narrative 07/10/2023 4:59 PM CDT Chest Radiograph, 1 view HISTORY: Status post cardiac surgery, COMPARISON: None available A chest radiographic examination in the frontal projection was presented. FINDINGS: The mediastinum is within expected limits. The cardiac silhouette ??within normal size limits. The costophrenic angles are preserved bilaterally. No confluent infiltrates are appreciated. Procedure Note Ramone Andrade MD - 07/10/2023 Chest Radiograph, 1 view HISTORY: Status post cardiac surgery, COMPARISON: None available A chest radiographic examination in the frontal projection was presented. FINDINGS: The mediastinum is within expected limits. The cardiac silhouette within normal size limits. The costophrenic angles are preserved bilaterally. No confluent infiltrates are appreciated. IMPRESSION: 1. Negative chest radiograph. COMMENT: Please see above for additional findings. Electronically signed by: Ramone Andrade M.D. Kalen Rivera DNP IMG XR PROCEDURES Fi nal Result * eGFR (07/10/2023 4:26 PM CDT) eGFR 80 mL/min/1. 73 m2 [facility] Comment: Interpretive Data Reference Interval Normal ?>/= [...] interpretive data was last reviewed 2021. Blood 07/10/2023 4:26 PM CDT 07/10/2023 4:34 PM CDT Kalen Rivera DNP LAB BLOOD ORDERABLES Final Result [facility] [address] Department [place] [address] * (ABNORMAL) POCT glucose (07/10/2023 4:26 PM CDT) [facility] Signature Glucose, POC 153(H) 70 - 140 mg/dL [facility] Comment: For Glucose values <35 mg/dl when Hematocrit is >60 mg/dl,the test may not accurately detect significant hypoglycemia,and testing in the Laboratory should be considered if clinically indicated. Blood 07/10/2023 4:26 PM CDT 07/10/2023 4:26 PM CDT Keaton Lynn MD LAB POCT ORDERABLES - DE VICE Final Result Performing Organization Address [facility] Co de Phone Number [facility] [address] [facility] [place] [address] * aPTT (07/10/2023 4:26 PM CDT) aPTT 30 28 - 38 sec [facility] Comment: Interpretive Data Therapeutic heparin range: 60.0 - 94.0 seconds. Based on correlation with therapeutic heparin activity range of 0.3-0.7 Units/mL. Current interpretive data was last revised on 2020. Blood 07/10/2023 4:26 PM CDT 07/10/2023 4:34 PM CDT Kalen Rivera DNP LAB BLOOD ORDERABLES Final Result Performing Organization Address [facility] Co de Phone Number [facility] [address] [facility] [place] [address] * (ABNORMAL) Protime-INR (07/10/2023 4:26 PM CDT) PT 14.2(H) 10.3 - 13.7 sec [facility] INR 1.25(H) 0.90 - 1.20 [facility] Comment: Interpretive data Oral anticoagulant therapeutic ranges: Venous thromboembolism prophylaxis or treatment: 2.0-3.0 CARDIOLOGY Standard range: 2.0-3.0 High-intensity range: 2.5-3.5 Refer to indication-specific guidelines for appropriate target ranges for prosthetic heart valve replacement. Current interpretive data was last revised on 2019. Blood 07/10/2023 4:26 PM CDT 07/10/2023 4:34 PM CDT Kalen Rivera DNP LAB BLOOD ORDERABLES Final Result Performing Organization Address [facility] Co de Phone Number [facility] [address] [facility] [place] [address] * (ABNORMAL) CBC without differential (07/10/2023 4:26 PM CDT) [facility] WBC 8.2 3.8 - 9.9 K/cumm [facility] Hgb 10.7(L) 13.0 - 17.5 g/dL [facility] Hct 30.8(L) 38.9 - 50.3 % [facility] Plt 106(L) 150 - 400 K/cumm [facility] MPV 9.5 9.1 - 12.3 fL [facility] RBC 3.19(L) 4.30 - 5.80 M/cumm [facility] MCV 96.6(H) 81.3 - 96.4 fL [facility] MCH 33.5(H) 27.1 - 33.3 pg [facility] MCHC 34.7 32.3 - 35.7 g/dL [facility] RDW CV 13.2 11.1 - 14.9 % [facility] RDW SD 46.3 35.7 - 48.1 fL [facility] NRBC abs 0.00 0.00 - 0.01 K/cumm [facility] Blood 07/10/2023 4:26 PM CDT 07/10/2023 4:34 PM CDT Kalen Rivera [facility] LAB BLOOD ORDERABLES Final Result [facility] [address] Department of Laboratories [place], [place] [id number] * (ABNORMAL) Blood gas, arterial (07/10/2023 4:26 PM CDT) [facility] pH, Art 7.40 7.35 - 7.45 [facility] PCO2, Arterial 43 35 - 45 mmHg [facility] PO2, Arterial 155(H) 83 - 108 mmHg [facility] HCO3 Art (Calculated) 27 20 - 30 mmol/L [facility] BE, art 2 mmol/L [facility] Comment: Interpretive Data No Reference Range Established Current Interpretive Data was last revised on 2017 O2 Sat Art (Calculated) 99(H) 94 - 98 % [facility] Blood 07/10/2023 4:26 PM CDT 07/10/2023 4:34 PM CDT Kalen Rivera [facility] LAB BLOOD ORDERABLES Final Result Performing Organization Address [facility] Co de Phone Number [facility] [address] [facility] [place] [address] * Calcium, ionized (07/10/2023 4:26 PM CDT) Calcium, Ionized 5.10 4.50 - 5.10 mg/dL [facility] Blood 07/10/2023 4:26 PM CDT 07/10/2023 4:33 PM CDT Kalen Rivera [facility] LAB BLOOD ORDERABLES Final Result Performing Organization Address [facility] Co de Phone Number [facility] [address] Department [place] [address] * (ABNORMAL) Magnesium (07/10/2023 4:26 PM CDT) Pathologist [facility] Magnesium 2.7(H) 1.4 - 2.5 mg/dL [facility] Blood 07/10/2023 4:26 PM CDT 07/10/2023 4:34 PM CDT Kalen Rivera [facility] LAB BLOOD ORDERABLES Final Result Performing Organization Address [facility] Co de Phone Number [facility] [address] [facility] [place] [address] * Basic metabolic panel (07/10/2023 4:26 PM CDT) Sodium 143 135 - 145 mmol/L [facility] Potassium, pl 4.1 3.3 - 4.9 mmol/L [facility] Comment:Hemolyzed; potassium value may be falsely elevated by as much as 0.3 - 0.5 mmol/L. Suggest redraw and reanalysis Chloride 108 97 - 110 mmol/L [facility] CO2 28 22 - 32 mmol/L [facility] Anion gap 7 2 - 15 mmol/L [facility] BUN 17 6 - 25 mg/dL [facility] Creatinine 0.97 0.80 - 1.30 mg/dL [facility] Glucose 151 70 - 199 mg/dL [facility] Comment: Interpretive Data Fasting glucose [...] interpretive data was last revised 2022. Calcium 9.4 8.5 - 10.3 mg/dL [facility] Blood 07/10/2023 4:26 PM CDT 07/10/2023 4:34 PM CDT Kalen Rivera [facility] LAB BLOOD ORDERABLES Final Result Performing Organization Address City/[facility]/ZIP Co de Phone Number [facility] [address] [place] [address] * (ABNORMAL) Phosphorus (07/10/2023 4:26 PM CDT) [facility] Phosphorus, pl 4.7(H) 2.3 - 4.5 mg/dL [facility] Blood 07/10/2023 4:26 PM CDT 07/10/2023 4:34 PM CDT Kalen Rivera [facility] LAB BLOOD ORDERABLES Final Result [facility] [address] Department [place] [address] * REPAIR ANEURYSM ASCENDING AORTIC (07/10/2023 4:11 PM CDT) Anatomical Region Laterality Modality X-Ray Angiograph y Narrative 07/10/2023 4:12 PM CDT Please see OpNote for result. Keaton Lynn MD SURGICAL CASE ORDERS Fin al Result * (ABNORMAL) Protime-INR (07/10/2023 4:02 PM CDT) PT 14.8(H) 10.3 - 13.7 sec [facility] INR 1.30(H) 0.90 - 1.20 [facility] Comment: Interpretive data Oral anticoagulant therapeutic ranges: Venous thromboembolism prophylaxis or treatment: 2.0-3.0 CARDIOLOGY Standard range: 2.0-3.0 High-intensity range: 2.5-3.5 Refer to indication-specific guidelines for appropriate target ranges for prosthetic heart valve replacement. Current interpretive data was last revised on 2019. Blood 07/10/2023 4:02 PM CDT 07/10/2023 4:02 PM CDT Keaton Lynn MD LAB BLOOD ORDERABLES Fin al Result Performing Organization Address [facility]/ZIP Co de Phone Number [facility] [address] [place] [address] * Fibrinogen (07/10/2023 4:02 PM CDT) Pathologist [facility] Fibrinogen 182 170 - 400 mg/dL [facility] Blood 07/10/2023 4:02 PM CDT 07/10/2023 4:02 PM CDT Keaton Lynn MD LAB BLOOD ORDERABLES Fin al Result Performing Organization Address [facility]/ZIP Co de Phone Number [facility] [address] Department [place] [address] * aPTT (07/10/2023 4:02 PM CDT) Pathologist [facility] aPTT 33 28 - 38 sec [facility] Comment: Interpretive Data Therapeutic heparin range: 60.0 - 94.0 seconds. Based on correlation with therapeutic heparin activity range of 0.3-0.7 Units/mL. Current interpretive data was last revised on 2020. Blood 07/10/2023 4:02 PM CDT 07/10/2023 4:02 PM CDT Keaton Lynn MD LAB BLOOD ORDERABLES Fin al Result [facility] [address] Department [place] [address] * (ABNORMAL) CBC without differential (07/10/2023 4:01 PM CDT) [facility] WBC 9.5 3.8 - 9.9 K/cumm [facility] Hgb 9.4(L) 13.0 - 17.5 g/dL [facility] Hct 26.9(L) 38.9 - 50.3 % [facility] Plt 112(L) 150 - 400 K/cumm [facility] MPV 9.7 9.1 - 12.3 fL [facility] RBC 2.77(L) 4.30 - 5.80 M/cumm [facility] MCV 97.1(H) 81.3 - 96.4 fL [facility] MCH 33.9(H) 27.1 - 33.3 pg [facility] MCHC 34.9 32.3 - 35.7 g/dL [facility] RDW CV 13.1 11.1 - 14.9 % [facility] RDW SD 45.9 35.7 - 48.1 fL [facility] NRBC abs 0.00 0.00 - 0.01 K/cumm [facility] Blood 07/10/2023 4:01 PM CDT 07/10/2023 4:01 PM CDT Keaton Lynn MD LAB BLOOD ORDERABLES Fin al Result [facility] [address] Department [place] [address] * Surgical pathology (07/10/2023 3:59 PM CDT) Tissue (Aorta) 07/10/2023 1: 29 PM CDT Comment:Placed in formalin p ost procedure. Narrative PATHOLOGY [facility] - 07/12/2023 12:51 PM CDT [facility] [address], [place], [place] ??[address] Tele: ?? Pinky Morfin MD - C2 Tactical Analysis Technician Note to Patients: This report may contain a detailed description of human tissue sent by a health care provider to the laboratory for pathologic evaluation. The content of this report is essential for diagnosis and may provide important critical findings. This information may be unfamiliar to patients to review without a medical professional present. It is advised that the patient review this report in the presence of a health care provider who can answer questions and explain the details. SURGICAL PATHOLOGY REPORT Patient Name: ??JOHN NOLASCOCLEO Pepper Address: ??[address] [place], [place] ??[address] Gender: ??M : ??1945 (Age: 77) Service: ??Cardiothoracic Location: ??[id number], ?? Hospital #: ??[id number] Patient Type: ??[facility] Accession #: ? [id number] Taken: ? 07/10/2023 Received ? 07/11/2023 Reported: ? 07/12/2023 Physician(s): ? Rupali Disla M.D. 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 - Aortic tissue with degenerative change 07/12/2023 12:51 Examining Pathologist: Johnny Parker M.D. Report Reviewed and Electronically Signed By ??Johnny Parker M.D. SPECIMEN TYPE: A: AORTA CLINICAL IMPRESSION AND HISTORY: Aneurysm of ascending aorta without rupture GROSS DESCRIPTION: Received in formalin labeled JUDI HARMONANN and aorta are multiple fragments of adams vessel wall, 6 x 3 x 4 cm in aggregate. ??The specimen is sectioned. ??No definitive areas of separation of vessel wall are grossly identified. ??Electrotyper sections are submitted in A1. ?? jxi/07/11/2023 07:52 ? JAP,JXI MICROSCOPIC DESCRIPTION: Sections from the aorta show mild degenerative changes within the wall without distinct medial necrosis or aortitis. ??Some recent hemorrhage is seen in the adventitial connective tissue and a focus of peripheral nerve tissue is noted. Clerical Data Follows A; [id number] REPORT IMAGES AND/OR SCANNED DOCUMENTS ONLY VIEWABLE IN PDF FORMAT The immunohistochemical test(s) cited in this report, if any, was developed and its performance characteristics determined by [facility] Pathology Department. ??It has not been cleared or approved by the U.S. Food and Drug Administration. ??The FDA has determined that such clearance or approval is not necessary. ??This test is used for clinical purposes. ??It should not be regarded as investigational or for research. ??[facility] is certified under the Clinical Laboratory Improvement Amendments of 1988 (CLIA) as qualified to perform high complexity testing. ??Immunostains were performed on formalin-fixed paraffin embedded tissue using a polymer diaminobenzidine chromogen detection system. Antibodies used may include clone SP1 (rabbit monoclonal, estrogen receptor), clone 1E2 (rabbit monoclonal progesterone receptor), Ki-67 (rabbit monoclonal, 30-9), CD117 (rabbit polyclonal, c-kit), and anti-Her-2/dillon (4B5) (rabbit monoclonal primary antibody). us Keaton Lynn MD LAB PATHOLOGY ORDERABLES Final Result PATHOLOGY [facility] Laboratory Receiving [address] [place] [address] * XR Chest 1 Vw (07/10/2023 3:47 PM CDT) Anatomical Region Laterality Modality Body, Chest N/A Computed Radiogr aphy 07/10/2023 3:55 PM CDT Impressions 07/10/2023 3:55 PM CDT 1. No evidence of an undesirable radiopaque foreign body or needle. The report was called to the patient's operating room. 2. ??Cardiomegaly without evidence of pulmonary edema. 3. ??Probable small left pleural effusion and nonspecific obscuration of the left base. 4. ??Small region of infiltrate or atelectasis and very small region of infiltrate or atelectasis in the right infrahilar region. 5. ??There is no evidence of the pneumothorax. COMMENT: Please see above for additional findings. Electronically signed by: Ramone Andrade M.D. Narrative 07/10/2023 3:55 PM CDT Chest Radiograph, 1 view HISTORY: Inaccurate needle count intraoperatively, aneurysm repair COMPARISON: None available A chest radiographic examination in the frontal projection was presented. FINDINGS: The endotracheal tube is approximately 3.8 cm above the jen. ??The remaining support devices follow an expected course. There is prominence of the mediastinum consistent with the known aneurysm and apparent repair. ??An aortic valve prosthesis is noted. Hardware closure of the sternotomy is noted. The cardiac silhouette is markedly enlarged. ??There is a slight blunting of the left costophrenic angle and partial obscuration of the left hemidiaphragm. ??The right hemidiaphragm and costophrenic angles are preserved. There is no evidence of pneumothorax. There is nonspecific obscuration of the retrocardiac left lower lobe. There is a small focus of atelectasis or infiltrate in the left perihilar region and to a lesser extent right infrahilar region. Remaining lung jordan are clear. There is no evidence of a undesired weight radiopaque foreign body or needle. Procedure Note Ramone Andrade MD - 07/10/2023 Chest Radiograph, 1 view HISTORY: Inaccurate needle count intraoperatively, aneurysm repair COMPARISON: None available A chest radiographic examination in the frontal projection was presented. FINDINGS: The endotracheal tube is approximately 3.8 cm above the jen. The remaining support devices follow an expected course. There is prominence of the mediastinum consistent with the known aneurysm and apparent repair. An aortic valve prosthesis is noted. Hardware closure of the sternotomy is noted. The cardiac silhouette is markedly enlarged. There is a slight blunting of the left costophrenic angle and partial obscuration of the left hemidiaphragm. The right hemidiaphragm and costophrenic angles are preserved. There is no evidence of pneumothorax. There is nonspecific obscuration of the retrocardiac left lower lobe. There is a small focus of atelectasis or infiltrate in the left perihilar region and to a lesser extent right infrahilar region. Remaining lung jordan are clear. There is no evidence of a undesired weight radiopaque foreign body or needle. IMPRESSION: 1. No evidence of an undesirable radiopaque foreign body or needle. The report was called to the patient's operating room. 2. Cardiomegaly without evidence of pulmonary edema. 3. Probable small left pleural effusion and nonspecific obscuration of the left base. 4. Small region of infiltrate or atelectasis and very small region of infiltrate or atelectasis in the right infrahilar region. 5. There is no evidence of the pneumothorax. COMMENT: Please see above for additional findings. Electronically signed by: Ramone Andrade M.D. Keaton Lynn MD IMG XR PROCEDURES Final Result * POC Activated Clotting Time, High Range (07/10/2023 3:36 PM CDT) [facility] ACT 91 87 - 138 sec [facility] Blood 07/10/2023 3:36 PM CDT 07/10/2023 3:36 PM CDT Keaton Lynn MD LAB BLOOD ORDERABLES Fin al Result [facility] [address] Department [place] [address] * (ABNORMAL) POC Blood Gas and Chemistries, Arterial - (07/10/2023 3:36 PM CDT) [facility] pH, Art POC 7.41 7.35 - 7.45 [facility] pCO2, Art POC 42 35 - 45 mmHg [facility] pO2, Art POC 304(H) 80 - 108 mmHg [facility] Na, POC 138 135 - 145 mmol/L [facility] K POC 4.4 3.3 - 4.9 mmol/L [facility] Comment: Interpretive Data This method is not able to assess for hemolysis, which may falsely increase potassium concentrations. If further testing is needed to evaluate this result, consider in-laboratory plasma potassium. Current Interpretive Data was last revised on 2022. Cl, POC 107 97 - 110 mmol/L [facility] Ionized Ca, POC 4.27(L) 4.50 - 5.10 mg/dL [facility] Glucose, POC 173 70 - 199 mg/dL [facility] Lactate, POC 2.2(H) 0.0 - 2.0 mmol/L [facility] O2Hb, Art POC 97.7(H) 90.0 - 95.0 % [facility] Carboxhgb fract 1.9 0.0 - 2.9 % [facility] Methemoglobin 0.4 0.0 - 1.9 % [facility] HHb, POC 0.0 0.0 - 5.0 % [facility] SO2 (aisha) arterial 100(H) 90 - 95 % [facility] Total CO2, Art POC 28 22 - 32 mmol/L [facility] BE, art, POC 1.7 -2.0 - 2.0 mmol/L [facility] HCO3, Art POC 26 20 - 30 mmol/L [facility] Hct, POC 29.0(L) 38.9 - 50.3 % [facility] Total Hb, POC 9.8(L) 13.0 - 17.5 g/dL [facility] Blood 07/10/2023 3:36 PM CDT 07/10/2023 3:36 PM CDT us Keaton Lynn MD LAB POCT ORDERABLES - DE VICE Final Result [facility] [address] Department [place] [address] * Transfuse plasma (07/10/2023 3:10 PM CDT) Blood Herbie Mckinney MD PhD BLOOD TRANSFUSION ORDERA BLES Final Result Performing Organization Address City/[facility]/ZIP Co de Phone Number [facility] [address] Department [place] [address] * Transfuse plasma (07/10/2023 3:01 PM CDT) Blood Herbie Mckinney MD PhD BLOOD TRANSFUSION ORDERA BLES Final Result Performing Organization Address City/[facility] Co de Phone Number [facility] [address] Department [place] [address] * (ABNORMAL) POC Blood Gas and Chemistries, Arterial - (07/10/2023 3:00 PM CDT) pH, Art POC 7.33(L) 7.35 - 7.45 [facility] pCO2, Art POC 47(H) 35 - 45 mmHg [facility] pO2, Art POC 105 80 - 108 mmHg [facility] Na, POC 138 135 - 145 mmol/L [facility] K POC 4.4 3.3 - 4.9 mmol/L [facility] Comment: Interpretive Data This method is not able to assess for hemolysis, which may falsely increase potassium concentrations. If further testing is needed to evaluate this result, consider in-laboratory plasma potassium. Current Interpretive Data was last revised on 2022. Cl, POC 106 97 - 110 mmol/L [facility] Ionized Ca, POC 4.62 4.50 - 5.10 mg/dL [facility] Glucose, POC 191 70 - 199 mg/dL [facility] Lactate, POC 2.8(H) 0.0 - 2.0 mmol/L [facility] O2Hb, Art POC 97.2(H) 90.0 - 95.0 % [facility] Carboxhgb fract 1.9 0.0 - 2.9 % [facility] Methemoglobin 0.6 0.0 - 1.9 % [facility] HHb, POC 0.3 0.0 - 5.0 % [facility] SO2 (aisha) arterial 100(H) 90 - 95 % [facility] Total CO2, Art POC 26 22 - 32 mmol/L [facility] BE, art, POC -1.3 -2.0 - 2.0 mmol/L [facility] HCO3, Art POC 24 20 - 30 mmol/L [facility] Hct, POC 29.0(L) 38.9 - 50.3 % [facility] Total Hb, POC 9.8(L) 13.0 - 17.5 g/dL [facility] Blood 07/10/2023 3:00 PM CDT 07/10/2023 3:00 PM CDT Keaton Lynn MD LAB POCT ORDERABLES - DE VICE Final Result Performing Organization Address [facility] Co de Phone Number [facility] [address] Department [employer] [place], [place] [id number] * POC Activated Clotting Time, High Range (07/10/2023 2:59 PM CDT) ACT 116 87 - 138 sec [facility] Blood 07/10/2023 2:59 PM CDT 07/10/2023 2:59 PM CDT Keaton Lynn MD LAB BLOOD ORDERABLES Fin al Result Performing Organization Address [facility]/ZIP Co de Phone Number [facility] [address] Department of [employer] [place], [place] [id number] * Transfuse platelets (07/10/2023 2:56 PM CDT) Blood Herbie Mckinney MD PhD BLOOD TRANSFUSION ORDERA BLES Final Result Performing Organization Address [facility]/ZIP Co de Phone Number [facility] [address] Department of [employer] [place], [place] [id number] * Prepare plasma: 2 Units (07/10/2023 2:42 PM CDT) Pathologist [facility] Product code [id number] [facility] Unit Number [id number] 1 [facility] Product Blood Type APOS [facility] Dispense Status PRESUMED TRANSFUSED [facility] Product code [id number] [facility] Unit Number [id number] [facility] Product Blood Type APOS [facility] Dispense Status PRESUMED TRANSFUSED [facility] Blood (Blood, Venous) 07/10/2023 2:42 PM CDT Narrative [facility] - 07/10/2023 10:15 PM CDT Date required:-[id number] FFP # of Units:-2-Units Reasons:-Active major bleeding with coagulopathy} Herbie Mckinney MD PhD BLOOD BANK PRODUCT ORDER EMELYN Final Result [facility] [address] Department [place] [address] * (ABNORMAL) POC Blood Gas and Chemistries, Arterial - (07/10/2023 2:30 PM CDT) [facility] pH, Art POC 7.34(L) 7.35 - 7.45 [facility] pCO2, Art POC 46(H) 35 - 45 mmHg [facility] pO2, Art POC 352(H) 80 - 108 mmHg [facility] Na, POC 138 135 - 145 mmol/L [facility] K POC 4.8 3.3 - 4.9 mmol/L [facility] Comment: Interpretive Data This method is not able to assess for hemolysis, which may falsely increase potassium concentrations. If further testing is needed to evaluate this result, consider in-laboratory plasma potassium. Current Interpretive Data was last revised on 2022. Cl, POC 106 97 - 110 mmol/L [facility] Ionized Ca, POC 4.30(L) 4.50 - 5.10 mg/dL [facility] Glucose, POC 177 70 - 199 mg/dL [facility] Lactate, POC 3.2(H) 0.0 - 2.0 mmol/L [facility] O2Hb, Art POC 97.8(H) 90.0 - 95.0 % [facility] Carboxhgb fract 1.5 0.0 - 2.9 % [facility] Methemoglobin 0.6 0.0 - 1.9 % [facility] HHb, POC 0.0 0.0 - 5.0 % [facility] SO2 (aisha) arterial 100(H) 90 - 95 % [facility] Total CO2, Art POC 26 22 - 32 mmol/L [facility] BE, art, POC -1.1 -2.0 - 2.0 mmol/L [facility] HCO3, Art POC 24 20 - 30 mmol/L [facility] Hct, POC 29.0(L) 38.9 - 50.3 % [facility] Total Hb, POC 9.6(L) 13.0 - 17.5 g/dL [facility] Blood 07/10/2023 2:30 PM CDT 07/10/2023 2:30 PM CDT us Keaton Lynn MD LAB POCT ORDERABLES - DE VICE Final Result Performing Organization Address City/[facility]/ZIP Co de Phone Number [facility] [address] [place] [address] * (ABNORMAL) POC Activated Clotting Time, High Range (07/10/2023 2:29 PM CDT) ACT 821(H) 87 - 138 sec [facility] Blood 07/10/2023 2:29 PM CDT 07/10/2023 2:29 PM CDT Keaton Lynn MD LAB BLOOD ORDERABLES Fin al Result [facility] [address] Department [place] [address] * (ABNORMAL) POC Blood Gas and Chemistries, Arterial - (07/10/2023 1:58 PM CDT) pH, Art POC 7.45 7.35 - 7.45 [facility] pCO2, Art POC 44 35 - 45 mmHg [facility] pO2, Art POC 365(H) 80 - 108 mmHg [facility] Na, POC 141 135 - 145 mmol/L [facility] K POC 3.9 3.3 - 4.9 mmol/L [facility] Comment: Interpretive Data This method is not able to assess for hemolysis, which may falsely increase potassium concentrations. If further testing is needed to evaluate this result, consider in-laboratory plasma potassium. Current Interpretive Data was last revised on 2022. Cl, POC 107 97 - 110 mmol/L [facility] Ionized Ca, POC 3.98(L) 4.50 - 5.10 mg/dL [facility] Glucose, POC 177 70 - 199 mg/dL [facility] Lactate, POC 2.3(H) 0.0 - 2.0 mmol/L [facility] O2Hb, Art POC 98.2(H) 90.0 - 95.0 % [facility] Carboxhgb fract 1.1 0.0 - 2.9 % [facility] Methemoglobin 0.4 0.0 - 1.9 % [facility] HHb, POC 0.3 0.0 - 5.0 % [facility] SO2 (aisha) arterial 100(H) 90 - 95 % [facility] Total CO2, Art POC 32 22 - 32 mmol/L [facility] BE, art, POC 5.9(H) -2.0 - 2.0 mmol/L [facility] HCO3, Art POC 30 20 - 30 mmol/L [facility] Hct, POC 29.0(L) 38.9 - 50.3 % [facility] Total Hb, POC 9.6(L) 13.0 - 17.5 g/dL [facility] Blood 07/10/2023 1:58 PM CDT 07/10/2023 1:58 PM CDT us Keaton Lynn MD LAB POCT ORDERABLES - DE VICE Final Result [facility] [address] Department [place] [address] * (ABNORMAL) POC Activated Clotting Time, High Range (07/10/2023 1:57 PM CDT) Pathologist [facility] ACT 647(H) 87 - 138 sec [facility] Blood 07/10/2023 1:57 PM CDT 07/10/2023 1:57 PM CDT us Keaton Lynn MD LAB BLOOD ORDERABLES Fin al Result [facility] [address] Department [place] [address] * (ABNORMAL) POC Blood Gas and Chemistries, Arterial - (07/10/2023 1:43 PM CDT) [facility] pH, Art POC 7.40 7.35 - 7.45 [facility] pCO2, Art POC 39 35 - 45 mmHg [facility] pO2, Art POC 416(H) 80 - 108 mmHg [facility] Na, POC 137 135 - 145 mmol/L [facility] K POC 6.3(C) 3.3 - 4.9 mmol/L [facility] Comment: Interpretive Data This method is not able to assess for hemolysis, which may falsely increase potassium concentrations. If further testing is needed to evaluate this result, consider in-laboratory plasma potassium. Current Interpretive Data was last revised on 2022. Cl, POC 108 97 - 110 mmol/L [facility] Ionized Ca, POC 4.21(L) 4.50 - 5.10 mg/dL [facility] Glucose, POC 176 70 - 199 mg/dL [facility] Lactate, POC 2.3(H) 0.0 - 2.0 mmol/L [facility] O2Hb, Art POC 98.0(H) 90.0 - 95.0 % [facility] Carboxhgb fract 1.3 0.0 - 2.9 % [facility] Methemoglobin 0.6 0.0 - 1.9 % [facility] HHb, POC 0.2 0.0 - 5.0 % [facility] SO2 (aisha) arterial 100(H) 90 - 95 % [facility] Total CO2, Art POC 25 22 - 32 mmol/L [facility] BE, art, POC -0.5 -2.0 - 2.0 mmol/L [facility] HCO3, Art POC 25 20 - 30 mmol/L [facility] Hct, POC 29.0(L) 38.9 - 50.3 % [facility] Total Hb, POC 9.7(L) 13.0 - 17.5 g/dL [facility] Blood 07/10/2023 1:43 PM CDT 07/10/2023 1:43 PM CDT Keaton Lynn MD LAB POCT ORDERABLES - DE VICE Final Result Performing Organization Address [facility]/ZIP Co de Phone Number [facility] [address] [place] [address] * (ABNORMAL) POC Activated Clotting Time, High Range (07/10/2023 1:42 PM CDT) ACT 374(H) 87 - 138 sec [facility] Blood 07/10/2023 1:42 PM CDT 07/10/2023 1:42 PM CDT Keaton Lynn MD LAB BLOOD ORDERABLES Fin al Result Performing Organization Address City/[facility]/ZIP Co de Phone Number [facility] [address] [address] * (ABNORMAL) POC Blood Gas and Chemistries, Arterial - (07/10/2023 1:12 PM CDT) pH, Art POC 7.34(L) 7.35 - 7.45 [facility] pCO2, Art POC 46(H) 35 - 45 mmHg [facility] pO2, Art POC 482(H) 80 - 108 mmHg [facility] Na, POC 137 135 - 145 mmol/L [facility] K POC 4.1 3.3 - 4.9 mmol/L [facility] Comment: Interpretive Data This method is not able to assess for hemolysis, which may falsely increase potassium concentrations. If further testing is needed to evaluate this result, consider in-laboratory plasma potassium. Current Interpretive Data was last revised on 2022. Cl, POC 106 97 - 110 mmol/L [facility] Ionized Ca, POC 4.39(L) 4.50 - 5.10 mg/dL [facility] Glucose, POC 112 70 - 199 mg/dL [facility] Lactate, POC 1.1 0.0 - 2.0 mmol/L [facility] O2Hb, Art POC 98.6(H) 90.0 - 95.0 % [facility] Carboxhgb fract 1.2 0.0 - 2.9 % [facility] Methemoglobin 0.1 0.0 - 1.9 % [facility] HHb, POC 0.1 0.0 - 5.0 % [facility] SO2 (aisha) arterial 100(H) 90 - 95 % [facility] Total CO2, Art POC 26 22 - 32 mmol/L [facility] BE, art, POC -1.1 -2.0 - 2.0 mmol/L [facility] HCO3, Art POC 24 20 - 30 mmol/L [facility] Hct, POC 29.0(L) 38.9 - 50.3 % [facility] Total Hb, POC 9.7(L) 13.0 - 17.5 g/dL [facility] Blood 07/10/2023 1:12 PM CDT 07/10/2023 1:12 PM CDT us Keaton Lynn MD LAB POCT ORDERABLES - DE VICE Final Result [facility] [address] Department [place] [address] * (ABNORMAL) POC Activated Clotting Time, High Range (07/10/2023 1:11 PM CDT) ACT 650(H) 87 - 138 sec [facility] Blood 07/10/2023 1:11 PM CDT 07/10/2023 1:11 PM CDT us Keaton Lynn MD LAB BLOOD ORDERABLES Les al Result [facility] [address] Department [place] [address] * (ABNORMAL) POC Blood Gas and Chemistries, Venous - (07/10/2023 12:52 PM CDT) pH, John POC 7.31(L) 7.32 - 7.45 [facility] pCO2, john POC 57(H) 40 - 50 mmHg [facility] pO2, john POC 53(H) 35 - 42 mmHg [facility] Na, POC 138 135 - 145 mmol/L [facility] K POC 3.6 3.3 - 4.9 mmol/L [facility] Comment: Interpretive Data This method is not able to assess for hemolysis, which may falsely increase potassium concentrations. If further testing is needed to evaluate this result, consider in-laboratory plasma potassium. Current Interpretive Data was last revised on 2022. Cl, POC 104 97 - 110 mmol/L [facility] Ionized Ca, POC 4.24(L) 4.50 - 5.10 mg/dL [facility] Glucose, POC 110 70 - 199 mg/dL [facility] Lactate, POC 0.7 0.0 - 2.0 mmol/L [facility] O2Hb, John POC 83.6(L) 90.0 - 95.0 % [facility] Carboxhgb fract 1.7 0.0 - 2.9 % [facility] Methemoglobin 0.0 0.0 - 1.9 % [facility] HHb, POC 14.7(H) 0.0 - 5.0 % [facility] O2 Sat, John POC (Aisha) 85(H) 68 - 77 % [facility] Total CO2, john POC 30 22 - 32 mmol/L [facility] Base excess, john POC 1.6 mmol/L [facility] HCO3, John POC 26 20 - 30 mmol/L [facility] Hct, POC 31.0(L) 38.9 - 50.3 % [facility] Total Hb, POC 10.2(L) 13.0 - 17.5 g/dL [facility] Blood 07/10/2023 12:5 2 PM CDT 07/10/2023 12:52 PM CDT Keaton Lynn MD LAB POCT ORDERABLES - DE VICE Final Result Performing Organization Address [facility]/ZIP Co de Phone Number [facility] [address] Department of [employer] [place], [place] [id number] * (ABNORMAL) POC Activated Clotting Time, High Range (07/10/2023 12:46 PM CDT) ACT 684(H) 87 - 138 sec [facility] Blood 07/10/2023 12:4 6 PM CDT 07/10/2023 12:46 PM CDT us Keaton Lynn MD LAB BLOOD ORDERABLES Fin al Result Performing Organization Address [facility]/ZIP Co de Phone Number [facility] [address] [address] * (ABNORMAL) POC Blood Gas and Chemistries, Arterial - (07/10/2023 12:46 PM CDT) pH, Art POC 7.34(L) 7.35 - 7.45 [facility] pCO2, Art POC 51(H) 35 - 45 mmHg [facility] pO2, Art POC 462(H) 80 - 108 mmHg [facility] Na, POC 136 135 - 145 mmol/L [facility] K POC 3.6 3.3 - 4.9 mmol/L [facility] Comment: Interpretive Data This method is not able to assess for hemolysis, which may falsely increase potassium concentrations. If further testing is needed to evaluate this result, consider in-laboratory plasma potassium. Current Interpretive Data was last revised on 2022. Cl, POC 106 97 - 110 mmol/L [facility] Ionized Ca, POC 4.07(L) 4.50 - 5.10 mg/dL [facility] Glucose, POC 110 70 - 199 mg/dL [facility] Lactate, POC 0.7 0.0 - 2.0 mmol/L [facility] O2Hb, Art POC 98.4(H) 90.0 - 95.0 % [facility] Carboxhgb fract 1.4 0.0 - 2.9 % [facility] Methemoglobin 0.3 0.0 - 1.9 % [facility] HHb, POC 0.0 0.0 - 5.0 % [facility] SO2 (aisha) arterial 100(H) 90 - 95 % [facility] Total CO2, Art POC 29 22 - 32 mmol/L [facility] BE, art, POC 1.2 -2.0 - 2.0 mmol/L [facility] HCO3, Art POC 26 20 - 30 mmol/L [facility] Hct, POC 30.0(L) 38.9 - 50.3 % [facility] Total Hb, POC 10.0(L) 13.0 - 17.5 g/dL [facility] Blood 07/10/2023 12:4 6 PM CDT 07/10/2023 12:46 PM CDT us Keaton Lynn MD LAB POCT ORDERABLES - DE VICE Final Result Performing Organization Address City/[facility]/ZIP Co de Phone Number [facility] [address] Department [place] [address] * (ABNORMAL) POC Activated Clotting Time, High Range (07/10/2023 12:31 PM CDT) ACT 649(H) 87 - 138 sec [facility] Blood 07/10/2023 12:3 1 PM CDT 07/10/2023 12:31 PM CDT Keaton Lynn MD LAB BLOOD ORDERABLES Fin al Result [facility] [address] Department [place] [address] * (ABNORMAL) POC Blood Gas and Chemistries, Arterial - (07/10/2023 12:09 PM CDT) pH, Art POC 7.35 7.35 - 7.45 [facility] pCO2, Art POC 48(H) 35 - 45 mmHg [facility] pO2, Art POC 158(H) 80 - 108 mmHg [facility] Na, POC 138 135 - 145 mmol/L [facility] K POC 3.8 3.3 - 4.9 mmol/L [facility] Comment: Interpretive Data This method is not able to assess for hemolysis, which may falsely increase potassium concentrations. If further testing is needed to evaluate this result, consider in-laboratory plasma potassium. Current Interpretive Data was last revised on 2022. Cl, POC 106 97 - 110 mmol/L [facility] Ionized Ca, POC 4.61 4.50 - 5.10 mg/dL [facility] Glucose, POC 99 70 - 199 mg/dL [facility] Lactate, POC 0.7 0.0 - 2.0 mmol/L [facility] O2Hb, Art POC 97.6(H) 90.0 - 95.0 % [facility] Carboxhgb fract 1.6 0.0 - 2.9 % [facility] Methemoglobin 0.7 0.0 - 1.9 % [facility] HHb, POC 0.2 0.0 - 5.0 % [facility] SO2 (aisha) arterial 100(H) 90 - 95 % [facility] Total CO2, Art POC 28 22 - 32 mmol/L [facility] BE, art, POC 0.4 -2.0 - 2.0 mmol/L [facility] HCO3, Art POC 25 20 - 30 mmol/L [facility] Hct, POC 37.0(L) 38.9 - 50.3 % [facility] Total Hb, POC 12.4(L) 13.0 - 17.5 g/dL [facility] Blood 07/10/2023 12:0 9 PM CDT 07/10/2023 12:09 PM CDT Keaton Lynn MD LAB POCT ORDERABLES - DE VICE Final Result Performing Organization Address [facility] Co de Phone Number [facility] [address] [place] [address] * POC Activated Clotting Time, High Range (07/10/2023 12:08 PM CDT) Pathologist [facility] ACT 95 87 - 138 sec [facility] Blood 07/10/2023 12:0 8 PM CDT 07/10/2023 12:08 PM CDT Result [facility] Keaton Lynn MD LAB BLOOD ORDERABLES Fin al Result Performing Organization Address [facility] de Phone Number [facility] [address] [facility] [place] [address] * Hemoglobin A1c (07/10/2023 10:12 AM CDT) [facility] Hgb A1C 5.2 4.0 - 5.6 % [facility] Estimated Average Glucose 103 mg/dL [facility] Comment: The ADA recommends reporting an estimated Average Glucose (eAG) with all Hemoglobin A1c results using the equation derived from a study of 507 normal and diabetic adults. ??Minority populations were underrepresented and children were not included. ?? (Diabetes Care 31:1790-4825, 2008). ??The eAG is not equivalent to a fasting glucose. Blood 07/10/2023 10:1 2 AM CDT 07/10/2023 10:12 AM CDT Danyelle Tillman NP LAB BLOOD ORDERABLES Final Resul t Performing Organization Address [facility] Co de Phone Number [facility] [address] [place] [address] * aPTT (07/10/2023 10:12 AM CDT) Pathologist [facility] aPTT 33 28 - 38 sec [facility] Comment: Interpretive Data Therapeutic heparin range: 60.0 - 94.0 seconds. Based on correlation with therapeutic heparin activity range of 0.3-0.7 Units/mL. Current interpretive data was last revised on 2020. Blood 07/10/2023 10:1 2 AM CDT 07/10/2023 10:12 AM CDT Danyelle Tillman NP LAB BLOOD ORDERABLES Final Resul t Performing Organization Address [facility] de Phone Number [facility] [address] Department of [employer] [place], [place] [id number] * Protime-INR (07/10/2023 10:12 AM CDT) PT 11.7 10.3 - 13.7 sec [facility] INR 1.03 0.90 - 1.20 [facility] Comment: Interpretive data Oral anticoagulant therapeutic ranges: Venous thromboembolism prophylaxis or treatment: 2.0-3.0 CARDIOLOGY Standard range: 2.0-3.0 High-intensity range: 2.5-3.5 Refer to indication-specific guidelines for appropriate target ranges for prosthetic heart valve replacement. Current interpretive data was last revised on 2019. Blood 07/10/2023 10:1 2 AM CDT 07/10/2023 10:12 AM CDT Danyelle Tillman NP LAB BLOOD ORDERABLES Final Resul t Performing Organization Address [facility] Co de Phone Number [facility] [address] Department [place] [address] * Check Sample (07/10/2023 10:12 AM CDT) ABO Rh O Positive [facility] HCLL OTHER 07/10/2023 10:1 2 AM CDT 07/10/2023 10:22 AM CDT Keaton Lynn MD LAB BLOOD ORDERABLES Fin al Result Performing Organization Address [facility] Co de Phone Number [facility] [address] [facility] [place] [address] * Prepare platelets: 2 Units (07/10/2023 9:43 AM CDT) Product code [id number] [facility] Unit Number [id number] [facility] Product Blood Type APOS [facility] Dispense Status PRESUMED TRANSFUSED [facility] Blood (Blood, Venous) 07/10/2023 9:43 AM CDT Narrative [facility] - 07/10/2023 10:15 PM CDT Specify Procedure:->REPLACEMENT ASCENDING AORTA Are special requirements needed? (all products are leukoreduced)->No Date required:-[id number] PLT # of Units:-2-Units Reasons:-Hold for procedure (specify procedure)} Danyelle Tillman NP BLOOD BANK PRODUCT ORDERABLES Fi nal Result Performing Organization Address [facility] Co de Phone Number [facility] [address] Department [place] [address] * Prepare RBC: 4 Units (07/10/2023 9:43 AM CDT) Product code [id number] [facility] Unit Number [id number] 6-0 [facility] Blood Type OPOS [facility] Dispense Status RETURNED [facility] Product code [id number] [facility] Unit Number [id number] 7-* [facility] Product Blood Type OPOS [facility] Dispense Status RETURNED [facility] Product code [id number] [facility] Unit Number [id number] 4-I [facility] Product Blood Type [facility]OS [facility] Dispense Status [facility] Product code [id number] [facility] Unit Number [id number] 5-2 [facility] Product Blood Type OPOS [facility] Dispense Status RETURNED [facility] Blood 07/10/2023 9:43 AM CDT Narrative [facility] - 07/11/2023 1:49 AM CDT Specify Procedure:->REPLACEMENT ASCENDING AORTA Are special requirements needed? 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 S/P aortic valve replacement Heart valve replaced by other means Aneurysm of ascending aorta without rupture (HCC) Aneurysm of ascending aorta without rupture (HCC) documented in this encounter Admitting Diagnoses Diagnosis Aortic aneurysm (HCC) Aortic aneurysm of unspecified site without mention of rupture Aneurysm of ascending aorta without rupture (HCC) documented in this encounter Administered Medications Inactive Administered Medications - up to 3 most recent administrations Medication Order MAR Action Action Date Dose Rate Site acetaminophen (TYLENOL) tablet 1,000 mg 1,000 mg, oral, Every 6 hours scheduled, First dose on Sun07/10/23 at 1800, If able to swallow medications., Indications: PainIndications:Pain Given 07/14/2023 11:17 AM CDT 1,000 mg Given 07/14/2023 5:19 AM CDT 1,000 mg Given 07/14/2023 1:05 AM CDT 1,000 mg aspirin enteric coated tablet 81 mg 81 mg, oral, Daily, First dose (after last modification) on Sun07/11/23 at 0900, If able to swallow medications. Within 6h of arrival to CVR if chest tube output allows. Do not crush, chew, cut, dissolve, open or otherwise manipulate tablet/capsule. Given 07/14/2023 10:33 AM CDT 81 mg Given 07/13/2023 9:40 AM CDT 81 mg Given 07/12/2023 8:22 AM CDT 81 mg atorvastatin (LIPITOR) tablet 40 mg 40 mg, oral, Nightly, First dose on Sun07/11/23 at 2100 Given 07/13/2023 9:04 PM CDT 40 mg Given 07/12/2023 8:42 PM CDT 40 mg Given 07/11/2023 8:12 PM CDT 40 mg bisacodyL (DULCOLAX) suppository 10 mg 10 mg, rectal, Daily PRN, other, 2nd line or if unable to take PO/PT, Starting on Sun07/11/23 at 0000, Hold for diarrhea, Indications: constipationIndications:constipat ion calcium chloride 1 g/110 mL in sodium chloride 0.9% (premix) solution 1 g 1 g, intravenous, Administer over 60 Minutes, Once, On Sun07/11/23 at 0400, For 1 dose, Indications: hypocalcemiaIndications:hypocalce dana New Bag 07/11/2023 4:12 AM CDT 1 g Carrier Fluids for Secondary Infusion - 0.9% Sodium Chloride 30 mL, intravenous, As needed, For priming tubing and/or flushing, Starting on Sun07/10/23 at 1623, 0-250 ml/hr to flush line after IV infusions when no maintenance IV ordered. Infuse 30mL at the same rate as the secondary infusion. Run as primary IV, not intended for KVO. ceFAZolin (ANCEF) 2,000 mg/20 mL in sterile water (premix) 2,000 mg 2,000 mg, intravenous, at 400 mL/hr, Administer over 3 Minutes, Every 8 hours, First dose on Sun07/11/23 at 0000, For 5 doses, Start 8 hours after last bruno-operative dose., Indications: Prophylaxis, SurgicalIndications:Prophylaxis, Surgical Given 07/12/2023 8:35 AM CDT 2,000 mg 400 mL/hr Given 07/11/2023 11:56 PM CDT 2,000 mg 400 mL/hr Given 07/11/2023 3:23 PM CDT 2,000 mg 400 mL/hr dextrose (D10W) 10% bolus 250 mL 250 mL, intravenous, at 1,000 mL/hr, Administer over 15 Minutes, Every 15 min PRN, blood glucose less than 70 mg/dL and UNABLE to swallow/take PO glucose/juice., Starting on Sun07/11/23 at 0733, After treatment for hypoglycemia, recheck BG followed by treatment every 15 minutes until the BG is greater than 100 mg/dL. Then check BG 1 hour post treatment. If BG is less than 100 mg/dL, repeat Q15 minute BG checks and treatment. Call MD for each episode of hypoglycemia., Indications: hypoglycemic disorderIndications:hypoglycemic disorder dextrose (GLUTOSE) 40 % gel 15 g 15 g, oral, Every 15 min PRN, low blood sugar, blood glucose less than 70 mg/dL, Starting on Sun07/11/23 at 0733, If patient is alert and able to eat/drink, give 15 gm glucose or one juice (4 fluid ounces) NOT ORANGE JUICE. After treatment for hypoglycemia, recheck BG followed by treatment every 15 minutes until the BG is greater than 100 mg/dL. Then check BG 1 hour post-treatment. If BG is less than 100 mg/dL, repeat Q15 minute BG checks and treatment. Call MD for each episode of hypoglycemia. PHARMACY INTAKE COORDINATOR STATES GLUTOSE-15 CONTAINS GLUCOSE 40% W/W (50% W/V), Indications: hypoglycemic disorderIndications:hypoglycemic disorder docusate sodium (COLACE) capsule 100 mg 100 mg, oral, 2 times daily, First dose on Sun07/10/23 at 2100, If able to swallow medications. Hold for diarrhea. , Indications: constipationIndications:constipation Given 07/14/2023 10:33 AM CDT 100 mg Given 07/13/2023 9:04 PM CDT 100 mg Given 07/13/2023 9:40 AM CDT 100 mg furosemide (LASIX) 10 mg/mL injection 20 mg 20 mg, intravenous, Daily, First dose (after last modification) on Sun07/12/23 at 1415, Room temperature only Given 07/12/2023 4:03 PM CDT 20 mg furosemide (LASIX) 10 mg/mL injection 20 mg 20 mg, intravenous, 2 times daily (for diuretics), First dose (after last modification) on Sun07/13/23 at 0900, Room temperature only Given 07/14/2023 10:33 AM CDT 20 mg Given 07/13/2023 4:07 PM CDT 20 mg Given 07/13/2023 9:40 AM CDT 20 mg glucagon injection 1 mg 1 mg, intramuscular, Every 30 min PRN, low blood sugar, blood glucose less than 70 mg/dL AND no IV access AND unable to take PO glucose/juice., Starting on Sun07/11/23 at 0733, After Glucagon is administered, position patient on side if possible to avoid aspiration. Obtain IV access. Follow glucagon treatment with glucose treatment or IV dextrose. After treatment for hypoglycemia, recheck BG followed by treatment every 15 minutes until the BG is greater than 100 mg/dL. Then check BG 1 hour post treatment. If BG is less than 100 mg/dL, repeat Q15 minute BG checks and treatment. Call MD for each episode of hypoglycemia. Reconstitute 1 mg vial with 1 mL SWFI. Use immediately following reconstitution. heparin 5,000 unit/mL injection 5,000 Units 5,000 Units, subcutaneous, Every 8 hours scheduled, First dose on Sun07/11/23 at 0600, Indications: Deep Vein Thrombosis PreventionIndications:Deep Vein Thrombosis Prevention Given 07/14/2023 5:19 AM CDT 5,000 Units Left Lower Abdomen Given 07/13/2023 9:04 PM CDT 5,000 Units L eft Lower Abdomen Given 07/13/2023 4:07 PM CDT 5,000 Units L eft Upper Abdomen HYDROmorphone (PF) (DILAUDID) injection 0.2 mg 0.2 mg, intravenous, Administer over 2 Minutes, Every 2 hours PRN, breakthrough pain, Starting on Sun07/10/23 at 1623, May administer 1 hour after second dose of 1st line analgesic agent for uncontrolled or increasing pain., Indications: PainIndications:Pain Given 07/11/2023 4:13 AM CDT 0.2 mg Given 07/11/2023 2:21 AM CDT 0.2 mg Given 07/10/2023 10:18 PM CDT 0.2 mg insulin regular in 0.9% sodium chloride (MYXREDLIN) 100 unit/100 mL (1 unit/mL) infusion (premix) 0-30 Units/hr (0-30 mL/hr), 1 units/mL, intravenous, Titrated, Starting on Sun07/11/23 at 0045, Until Sun07/11/23 at 0734, Indications: Hyperglycemia, NON-WEIGHT BASED DOSING BLOOD GLUCOSE (BG) Less than 60 mg/dL Give dextrose as ordered in protocol STOP INSULIN RECHECK BLOOD GLUCOSE IN 30 MINUTES If blood glucose is greater than or equal to 75 mg/dL, restart insulin infusion at 50% of previous rate. If blood glucose is less than 75 mg/dL, call /[place] 60 - 74 mg/dL: If previous BG was greater than 90 mg/dL, give 125 mL D10W (Glucose is dropping FAST) STOP INSULIN RECHECK BLOOD GLUCOSE IN 30 MINUTES If blood glucose is greater than or equal to 75 mg/dL, restart insulin infusion at 50% of previous rate. 75 - 99 mg/dL If higher than last BG, maintain same rate If lower than last BG by less than 10 mg/dL OR equal to last BG, decrease rate by 0.5 units/hr. If lower than last BG by more than 10 mg/dL, decrease rate by 50%. 100 - 150 mg/dL If higher than last BG by more than 10 mg/dL, increase rate by 0.5 units/hr. AT [facility] If within 10 mg/dL of the last BG continue current rate. If lower than last BG by more than 10 mg/dL, decrease rate by 0.5 units/hr. 151 - 180 mg/dL If higher than last BG by more than 20 mg/dL, increase rate by 1 units/hr If within 20 mg/dL of last BG, increase rate by 0.5 unit/hr If lower than last BG by 20-50 mg/dL, continue same rate If lower than last BG by more than 50 mg/dL, decrease rate by 50% (Glucose is dropping FAST) 181 - 240 mg/dL If higher than last BG OR lower than last BG by less than 50 mg/dL, bolus with 2 units IV and increase rate by 2 units/hr RECHECK BLOOD GLUCOSE IN 30 MINUTES. If BG has not decreased after 3 consecutive increases in insulin infusion, then bolus with 4 units and double the infusion rate. If lower than last BG by more than 50 mg/dL, continue same rate. 241 - 300 mg/dL If higher than last BG OR lower than last BG by less than 80 mg/dL, bolus per with 6 units and DOUBLE infusion rate up to maximum 30 units/hr RECHECK BLOOD GLUCOSE IN 30 MINUTES. If lower than last BG by more than 80 mg/dL, continue same rate. 301 - 360 mg/dL If higher than last BG OR lower than last BG by less than 80 mg/dL, bolus per with 10 units and DOUBLE infusion rate up to maximum 30 units/hr RECHECK BLOOD GLUCOSE IN 30 MINUTES. If lower than last BG by more than 80 mg/dL, continue same rate. Greater than 360 mg/dL If higher than last BG OR lower than last BG by less than 80 mg/dL, bolus per with 14 units and DOUBLE infusion rate up to maximum 30 units/hr RECHECK BLOOD GLUCOSE IN 30 MINUTES. If lower than last BG by more than 80 mg/dL, continue same rate. If blood glucose is more than 300 mg/dL for 4 consecutive readings, call /[facility] for additional IV bolus orders. When new IV tubing is used, completely prime the tubing. Once primed, waste an additional 20 ml of insulin infusion using the IV pump prior to connecting to patient., RoutineIndications:Hypergl ycemia Rate/Dose Change 07/11/2023 5:00 AM CDT 0.5 Units/hr 0.5 mL/hr Rate/Dose Verify 07/11/2023 3:00 AM CDT 1 Units/hr 1 mL/hr New Bag 07/11/2023 12:30 AM CDT 1 Units/hr 1 mL/hr Lactated Ringer's (LR) bolus 500 mL 500 mL, intravenous, Once, On Sun07/10/23 at 2030, For 1 dose New Bag 07/10/2023 7:55 PM CDT 500 mL Lactated Ringer's (LR) bolus 500 mL 500 mL, intravenous, Once, On Sun07/11/23 at 0230, For 1 dose New Bag 07/11/2023 2:45 AM CDT 500 mL magnesium sulfate 2 g/50 mL in water (premix) 2 g 2 g, intravenous, Administer over 60 Minutes, Once, On Sun07/11/23 at 0400, For 1 dose New Bag 07/11/2023 4:13 AM CDT 2 g magnesium sulfate 2 g/50 mL in water (premix) 2 g 2 g, intravenous, Administer over 60 Minutes, Every 2 hours PRN, Mg < 2.1, Starting on Sun07/11/23 at 0651 New Bag 07/13/2023 7:00 AM CDT 2 g New Bag 07/11/2023 9:17 PM CDT 2 g metoprolol tartrate (LOPRESSOR) immediate release split tablet 6.25 mg 6.25 mg, oral, 2 times daily, First dose (after last modification) on [facility] 07/12/23 at 0900, Hold for HR <60 or SBP <100 Given 07/12/2023 8:50 AM CDT 6.25 mg metoprolol tartrate (LOPRESSOR) immediate release tablet 12.5 mg 12.5 mg, oral, 2 times daily, First dose (after last modification) on [facility] 07/12/23 at 2100, Hold for HR <60 or SBP <100 Given 07/14/2023 10:32 AM CDT 12.5 mg Given 07/13/2023 9:04 PM CDT 12.5 mg Given 07/13/2023 9:43 AM CDT 12.5 mg niCARdipine (CARDENE) 25,000 mcg in sodium chloride 0.9% 50 mL (500 mcg/mL) infusion 0-2 mcg/kg/min ? 111.2 kg (0-26.688 mL/hr, rounded to 0-26.69 mL/hr), 500 mcg/mL, intravenous, Titrated, Starting on Sun07/10/23 at 1800, Until Sun07/11/23 at 0321, Initial rate: 0.5 mcg/kg/min, Titrate: Up/Down, Titrate by: 0.5 mcg/kg/min, Every: 10 minutes, Goal: SBP, SBP Goal: Other (comment) / 110-130, Central line only, Routine Restarted 07/11/2023 2:45 AM CDT 0.5 mcg/kg/min 6.67 mL/hr Restarted 07/10/2023 9:30 PM CDT 0.25 mcg/kg/min 3.34 mL/ hr Rate/Dose Change 07/10/2023 7:00 PM CDT 0.5 mcg/kg/min 6.6 7 mL/hr norepinephrine in dextrose 5% (LEVOPHED) 8,000 mcg/250 mL (32 mcg/mL) infusion (premix) intravenous, Continuous PRN, Starting on Sun07/10/23 at 1211, Anesthesia Intra-op Rate/Dose Change 07/10/2023 4:24 PM CDT 0.04 mcg/kg/min 8.34 mL/hr Rate/Dose Change 07/10/2023 2:54 PM CDT 0.04 mcg/kg/min 8. 34 mL/hr Rate/Dose Change 07/10/2023 12:22 PM CDT 0.02 mcg/kg/min 4 .17 mL/hr norepinephrine in dextrose 5% (LEVOPHED) 8,000 mcg/250 mL (32 mcg/mL) infusion (premix) 0-2 mcg/kg/min ? 111.2 kg (0-417 mL/hr), 32 mcg/mL, intravenous, Titrated, Starting on Sun07/10/23 at 1700, Until Sun07/10/23 at 2135, Indications: hypotension, Initial rate: 0.05 mcg/kg/min, Titrate: Up/Down, Titrate by: 0.01 mcg/kg/min, Every: 2 minutes, Goal: MAP, MAP Goal: 65-75 mmHg, Discontinue when drip is off and stable at goal. , RoutineIndications:hypote nsion Rate/Dose Change 07/10/2023 4:40 PM CDT 0.01 mcg/kg/min 2.09 mL/hr Rate/Dose Verify 07/10/2023 4:30 PM CDT 0.02 mcg/kg/min 4. 17 mL/hr ondansetron (ZOFRAN) injection 4 mg 4 mg, intravenous, Administer over 2 Minutes, Every 6 hours PRN, nausea, vomiting, Starting on Sun07/10/23 at 1623, Administer no sooner than 6 hours after last dose. , Indications: Nausea and VomitingIndications:Nausea and Vomiting Given 07/11/2023 7:28 AM CDT 4 mg Given 07/10/2023 10:04 PM CDT 4 mg oxyCODONE (ROXICODONE) tablet 5 mg 5 mg, oral, Every 3 hours PRN, 1st line for pain, Starting on Sun07/10/23 at 1623, May repeat in 1 hour if pain is uncontrolled or increasing. Max 2 doses within 1 dosing interval. Given 07/14/2023 4:23 PM CDT 5 mg Given 07/14/2023 5:19 AM CDT 5 mg Given 07/13/2023 9:04 PM CDT 5 mg polyethylene glycol (MIRALAX) packet 17 g 17 g, oral, Daily PRN, constipation, 1st line, Starting on Sun07/10/23 at 1623, Hold for diarrhea, Indications: constipationIndications:constipatio n Given 07/13/2023 9:41 AM CDT 17 g potassium chloride 20 mEq/50 mL in sterile water (premix) 20 mEq 20 mEq, intravenous, at 25 mL/hr, Administer over 2 Hours, Every 1 hour PRN, K less than 4.5, Starting on Sun07/10/23 at 1623, Central line only, Indications: hypokalemiaIndications:hypokalemia New Bag 07/10/2023 5:11 PM CDT 20 mEq 25 mL/hr potassium chloride ER (KLOR-CON) extended release tablet 10 mEq 10 mEq, oral, Daily, First dose on Sun07/12/23 at 1415, Tablets should not be crushed, chewed, dissolved, or otherwise manipulated. Capsules may be opened and sprinkled on a spoonful of applesauce or pudding, but the contents of the capsule should not be crushed or chewed. Given 07/12/2023 4:03 PM CDT 10 mEq potassium chloride ER (KLOR-CON) extended release tablet 10 mEq 10 mEq, oral, 2 times daily (for diuretics), First dose (after last modification) on Sun07/13/23 at 0900, Tablets should not be crushed, chewed, dissolved, or otherwise manipulated. Capsules may be opened and sprinkled on a spoonful of applesauce or pudding, but the contents of the capsule should not be crushed or chewed. Given 07/14/2023 10:33 AM CDT 10 mEq Given 07/13/2023 4:06 PM CDT 10 mEq Given 07/13/2023 9:40 AM CDT 10 mEq potassium chloride ER (KLOR-CON) extended release tablet 20 mEq 20 mEq, oral, Every 4 hours PRN, for K 4.0-4.3, Starting on Sun07/11/23 at 0651, Do not crush, chew, cut, dissolve, open or otherwise manipulate tablet/capsule. Given 07/12/2023 5:56 AM CDT 20 mEq Given 07/11/2023 9:19 PM CDT 20 mEq potassium chloride ER (KLOR-CON) extended release tablet 40 mEq 40 mEq, oral, Every 4 hours PRN, For K < 4.0, Starting on Sun07/11/23 at 0651, Do not crush, chew, cut, dissolve, open or otherwise manipulate tablet/capsule. Given 07/14/2023 5:19 AM CDT 40 mEq Given 07/13/2023 6:26 AM CDT 40 mEq propofol (DIPRIVAN) 10 mg/mL infusion 0-50 mcg/kg/min ? 111.2 kg (0-33.36 mL/hr), 10 mg/mL, intravenous, Continuous, Starting on Sun07/10/23 at 1700, Until Sun07/10/23 at 1953, Titration instructions: Titrate, Initial dose: 10 mcg/kg/min, Titrate: Up/Down, Titrate by: 10 mcg/kg/min, Every: 5 minutes, Goal: RASS, RASS Goal: -1, -2, Discontinue when patient extubated. Room temperature only, Routine Rate/Dose Verify 07/10/2023 4:24 PM CDT 25 mcg/kg/min 16.68 mL/hr senna (SENOKOT) tablet 1 tablet 1 tablet, oral, 2 times daily, First dose on Sun07/11/23 at 0900, If able to swallow medications. Hold for diarrhea., Indications: constipationIndications: constipation Given 07/14/2023 10:33 AM CDT 1 tablet Given 07/13/2023 9:04 PM CDT 1 tablet Given 07/13/2023 9:40 AM CDT 1 tablet sodium chloride 0.9% flush 0.5-20 mL 0.5-20 mL, intra-catheter, Every 8 hours scheduled, First dose on Sun07/10/23 at 1700, Flush volume based on line type and size. , Indications: FlushingIndications:Flushing Given 07/14/2023 5:19 AM CDT 10 mL Given 07/13/2023 9:04 PM CDT 10 mL Given 07/13/2023 4:07 PM CDT 10 mL sodium chloride 0.9% flush 0.5-20 mL 0.5-20 mL, intra-catheter, As needed, line care, Starting on Sun07/10/23 at 1623, Flush volume based on line type and size. Flush before and after each use. , Indications: FlushingIndications:Flushing sodium chloride 0.9% infusion 10 mL/hr, intravenous, Continuous PRN, Hang bag with transfusion; infuse to keep IV line open in the event of a transfusion reaction., Starting on Sun07/10/23 at 0942, Pre-Op sodium chloride 0.9% infusion 10 mL/hr, intravenous, Continuous, Starting on Sun07/10/23 at 1700 New Bag 07/10/2023 5:36 PM CDT 10 mL/hr 10 mL/hr sodium phosphate - potassium phosphate (K-PHOS NEUTRAL) tablet 500 mg 500 mg, oral, 3 times daily with meals, First dose on Sun07/13/23 at 0815, For 2 doses, Each tablet contains elemental phosphorus 250 mg (8 mmol), potassium 45 mg (1.1 mEq), and sodium 298 mg (13 mEq). Given 07/13/2023 11:02 AM CDT 500 mg Given 07/13/2023 9:39 AM CDT 500 mg vancomycin 1500 mg/250 mL in sodium chloride 0.9% (premix) 1,500 mg 1,500 mg, intravenous, Administer over 90 Minutes, Once, On Sun07/10/23 at 1015, For 1 dose, Pre-Op, Administer within 120 minutes of incision., Indications: Prophylaxis, SurgicalIndications:Prophylaxis, Surgical New Bag 07/10/2023 11:30 AM CDT 1,500 mg vancomycin 1500 mg/250 mL in sodium chloride 0.9% (premix) 1,500 mg 1,500 mg, intravenous, Administer over 90 Minutes, Every 12 hours, First dose on Sun07/10/23 at 2300, For 1 dose, Start 12 hours after pre-operative dose., Indications: Prophylaxis, SurgicalIndications:Prophylaxis, Surgical New Bag 07/10/2023 11:06 PM CDT 1,500 mg documented in this encounter Discontinued Medications Medication Sig Discontinue Reason Start Date End Da te carvediloL (COREG) 25 mg tablet TAKE 1 TABLET BY MOUTH TWICE DAILY WITH MEALS Therapy completed 05/16/2023 07/10/2023 losartan (COZAAR) 100 mg tablet Take 1 tablet by mouth once daily Stop Taking at Discharge 10/02/2022 07/14/2023 NIFEdipine (NIFEdipine CC) 30 mg 24 hr tablet Take 1 tablet (30 mg total) by mouth daily Stop Taking at Discharge 06/06/2023 07/14/2023 documented as of this encounter Active and Recently Administered Medications Times are shown in CDT. Scheduled Medication Order 07/12/2023 07/13/2023 07/14/2023 acetaminophen (TYLENOL) tablet 1,000 mg(Linked Group 1) 1,000 mg, oral, Every 6 hours scheduled, First dose on Sun07/10/23 at 1800, If able to swallow medications., Indications: Pain 0556 (Given - Provider: Carlita Meier RN)1212 (Given - Provider: Cassandra Solano RN)1751 (Given - Provider: Cassandra Solano RN) 0043 (Given - Provider: Danica Sanchez RN)0625 (Given - Provider: Danica Sanchez, MAHIN)1102 (Given - Provider: Nano Arango RN)1756 (Given - Provider: Nano Arango RN) 0105 (Given - Provider: Danica Sanchez, MAHIN)0519 (Given - Provider: Danica Sanchez, MAHIN)1117 (Given - Provider: Nano Arango, MAHIN) aspirin enteric coated tablet 81 mg(Linked Group 2) 81 mg, oral, Daily, First dose (after last modification) on Sun07/11/23 at 0900, If able to swallow medications. Within 6h of arrival to CVR if chest tube output allows. Do not crush, chew, cut, dissolve, open or otherwise manipulate tablet/capsule. 0822 (Given - Provider: Cassandra Solano RN) 0940 (Given - Provider: Nano Arango, MAHIN) 1033 (Given - Provider: Nano Arango, MAHIN) atorvastatin (LIPITOR) tablet 40 mg 40 mg, oral, Nightly, First dose on Sun07/11/23 at 2100 2042 (Given - Provider: Danica Sanchez, MAHIN) 2104 (Given - Provider: Danica Sanchez, MAHIN) ceFAZolin (ANCEF) 2,000 mg/20 mL in sterile water (premix) 2,000 mg (COMPLETED) 2,000 mg, intravenous, at 400 mL/hr, Administer over 3 Minutes, Every 8 hours, First dose on Sun07/11/23 at 0000, For 5 doses, Start 8 hours after last bruno-operative dose., Indications: Prophylaxis, Surgical 0835 (Given - Provider: Cassandra Solano RN) docusate sodium (COLACE) capsule 100 mg(Linked Group 3) 100 mg, oral, 2 times daily, First dose on Sun07/10/23 at 2100, If able to swallow medications. Hold for diarrhea. , Indications: constipation 0822 (Given - Provider: Cassandra Solano RN)204 (Given - Provider: Danica Sanchez RN) 0940 (Given - Provider: Nano Arango RN)2104 (Given - Provider: Danica Sanchez RN) 1033 (Given - Provider: Nano Arango RN) furosemide (LASIX) 10 mg/mL injection 20 mg (CANCELED) 20 mg, intravenous, Daily, First dose (after last modification) on Sun07/12/23 at 1415, Room temperature only 1603 (Given - Provider: Cassandra Solano RN) furosemide (LASIX) 10 mg/mL injection 20 mg 20 mg, intravenous, 2 times daily (for diuretics), First dose (after last modification) on Sun07/13/23 at 0900, Room temperature only 0940 (Given - Provider: Nano Arango RN)1607 (Given - Provider: Nano Arango, MAHIN) 1033 (Given - Provider: Nano Arango RN)1600 (Due) heparin 5,000 unit/mL injection 5,000 Units 5,000 Units, subcutaneous, Every 8 hours scheduled, First dose on Sun07/11/23 at 0600, Indications: Deep Vein Thrombosis Prevention 0557 (Given - Provider: Carlita Meier RN)1331 (Given - Provider: Cassandra Solano RN)204 (Given - Provider: Danica Sanchez, MAHIN) 0625 (Given - Provider: Danica Sanchez, MAHIN)1607 (Given - Provider: Nano Arango RN)2104 (Given - Provider: Danica Sanchez RN) 0519 (Given - Provider: Danica Sanchez RN)1429 (Not Given - Provider: Nano Arango RN - Reason: Order Discontinued - Comment: DC) metoprolol tartrate (LOPRESSOR) immediate release split tablet 6.25 mg (CANCELED) 6.25 mg, oral, 2 times daily, First dose (after last modification) on Sun07/12/23 at 0900, Hold for HR <60 or SBP <100 0850 (Given - Provider: Cassandra Solano RN) metoprolol tartrate (LOPRESSOR) immediate release tablet 12.5 mg 12.5 mg, oral, 2 times daily, First dose (after last modification) on [place] 07/12/23 at 2100, Hold for HR <60 or SBP <100 2042 (Given - Provider: Danica Sanchez RN) 0943 (Given - Provider: Nano Arango RN)2104 (Given - Provider: Danica Sanchez RN) 1032 (Given - Provider: Nano Arango RN) potassium chloride ER (KLOR-CON) extended release tablet 10 mEq (CANCELED) 10 mEq, oral, Daily, First dose on Sun07/12/23 at 1415, Tablets should not be crushed, chewed, dissolved, or otherwise manipulated. Capsules may be opened and sprinkled on a spoonful of applesauce or pudding, but the contents of the capsule should not be crushed or chewed. 1603 (Given - Provider: Cassandra Solano RN) potassium chloride ER (KLOR-CON) extended release tablet 10 mEq 10 mEq, oral, 2 times daily (for diuretics), First dose (after last modification) on Sun07/13/23 at 0900, Tablets should not be crushed, chewed, dissolved, or otherwise manipulated. Capsules may be opened and sprinkled on a spoonful of applesauce or pudding, but the contents of the capsule should not be crushed or chewed. 0940 (Given - Provider: Nano Arango RN)1606 (Given - Provider: Nano Arango RN) 1033 (Given - Provider: Nano Arango RN)1600 (Due) senna (SENOKOT) tablet 1 tablet(Linked Group 4) 1 tablet, oral, 2 times daily, First dose on Sun07/11/23 at 0900, If able to swallow medications. Hold for diarrhea., Indications: constipation 0823 (Given - Provider: Cassandra Solano RN)204 (Given - Provider: Danica Sanchez, MHAIN) 0940 (Given - Provider: Nano Arango, MAHIN)2104 (Given - Provider: Danica Sanchez, MAHIN) 1033 (Given - Provider: Nano Arango, MAHIN) sodium chloride 0.9% flush 0.5-20 mL 0.5-20 mL, intra-catheter, Every 8 hours scheduled, First dose on Sun07/10/23 at 1700, Flush volume based on line type and size. , Indications: Flushing 0557 (Given - Provider: Carlita Meier RN)1330 (Given - Provider: Cassandra Solano RN)2042 (Given - Provider: Danica Sanchez RN) 0626 (Given - Provider: Danica Sanchez RN)1607 (Given - Provider: Nano Arango, MAHIN)2104 (Given - Provider: Danica Sanchez, MAHIN) 0519 (Given - Provider: Danica Sanchez, MAHIN)1430 (Not Given - Provider: Nano Arango, MAHIN - Reason: Loss of IV access) sodium phosphate - potassium phosphate (K-PHOS NEUTRAL) tablet 500 mg (COMPLETED) 500 mg, oral, 3 times daily with meals, First dose on Sun07/13/23 at 0815, For 2 doses, Each tablet contains elemental phosphorus 250 mg (8 mmol), potassium 45 mg (1.1 mEq), and sodium 298 mg (13 mEq). 0939 (Given - Provider: Nano Arango RN)1102 (Given - Provider: Nano Arango, MAHIN) PRN Medication Order 07/12/2023 07/13/2023 07/14/2023 bisacodyL (DULCOLAX) suppository 10 mg 10 mg, rectal, Daily PRN, other, 2nd line or if unable to take PO/PT, Starting on Sun07/11/23 at 0000, Hold for diarrhea, Indications: constipation Carrier Fluids for Secondary Infusion - 0.9% Sodium Chloride 30 mL, intravenous, As needed, For priming tubing and/or flushing, Starting on Sun07/10/23 at 1623, 0-250 ml/hr to flush line after IV infusions when no maintenance IV ordered. Infuse 30mL at the same rate as the secondary infusion. Run as primary IV, not intended for KVO. dextrose (D10W) 10% bolus 250 mL(Linked Group 5) 250 mL, intravenous, at 1,000 mL/hr, Administer over 15 Minutes, Every 15 min PRN, blood glucose less than 70 mg/dL and UNABLE to swallow/take PO glucose/juice., Starting on Sun07/11/23 at 0733, After treatment for hypoglycemia, recheck BG followed by treatment every 15 minutes until the BG is greater than 100 mg/dL. Then check BG 1 hour post treatment. If BG is less than 100 mg/dL, repeat Q15 minute BG checks and treatment. Call MD for each episode of hypoglycemia., Indications: hypoglycemic disorder dextrose (GLUTOSE) 40 % gel 15 g(Linked Group 5) 15 g, oral, Every 15 min PRN, low blood sugar, blood glucose less than 70 mg/dL, Starting on Sun07/11/23 at 0733, If patient is alert and able to eat/drink, give 15 gm glucose or one juice (4 fluid ounces) NOT ORANGE JUICE. After treatment for hypoglycemia, recheck BG followed by treatment every 15 minutes until the BG is greater than 100 mg/dL. Then check BG 1 hour post-treatment. If BG is less than 100 mg/dL, repeat Q15 minute BG checks and treatment. Call MD for each episode of hypoglycemia. PHARMACY INTAKE COORDINATOR STATES GLUTOSE-15 CONTAINS GLUCOSE 40% W/W (50% W/V), Indications: hypoglycemic disorder glucagon injection 1 mg 1 mg, intramuscular, Every 30 min PRN, low blood sugar, blood glucose less than 70 mg/dL AND no IV access AND unable to take PO glucose/juice., Starting on Sun07/11/23 at 0733, After Glucagon is administered, position patient on side if possible to avoid aspiration. Obtain IV access. Follow glucagon treatment with glucose treatment or IV dextrose. After treatment for hypoglycemia, recheck BG followed by treatment every 15 minutes until the BG is greater than 100 mg/dL. Then check BG 1 hour post treatment. If BG is less than 100 mg/dL, repeat Q15 minute BG checks and treatment. Call MD for each episode of hypoglycemia. Reconstitute 1 mg vial with 1 mL SWFI. Use immediately following reconstitution. magnesium sulfate 2 g/50 mL in water (premix) 2 g 2 g, intravenous, Administer over 60 Minutes, Every 2 hours PRN, Mg < 2.1, Starting on Sun07/11/23 at 0651 0700 (New Bag - Provider: Nano Arango RN - Comment: Completed 0700. Administered by [employer].) ondansetron (ZOFRAN) injection 4 mg 4 mg, intravenous, Administer over 2 Minutes, Every 6 hours PRN, nausea, vomiting, Starting on Sun07/10/23 at 1623, Administer no sooner than 6 hours after last dose. , Indications: Nausea and Vomiting oxyCODONE (ROXICODONE) tablet 5 mg 5 mg, oral, Every 3 hours PRN, 1st line for pain, Starting on Sun07/10/23 at 1623, May repeat in 1 hour if pain is uncontrolled or increasing. Max 2 doses within 1 dosing interval. 0556 (Given - Provider: Carlita Meire RN)0923 (Given - Provider: Cassandra Solano RN)1331 (Given - Provider: Cassandra Solano RN)1750 (Given - Provider: Cassandra Solano RN)2042 (Given - Provider: Danica Sanchez RN) 0043 (Given - Provider: Danica Sanchez RN)0625 (Given - Provider: Danica Sanchez RN)1102 (Given - Provider: Nano Arango, MAHIN)1607 (Given - Provider: Nano Arango, MAHIN)2104 (Given - Provider: Danica Sanchez, MAHIN) 0519 (Given - Provider: Danica Sanchez RN)1623 (Given - Provider: Nano Arango, MAHIN) polyethylene glycol (MIRALAX) packet 17 g 17 g, oral, Daily PRN, constipation, 1st line, Starting on Sun07/10/23 at 1623, Hold for diarrhea, Indications: constipation 0941 (Given - Provider: Nano Arango RN) potassium chloride 20 mEq/50 mL in sterile water (premix) 20 mEq 20 mEq, intravenous, at 25 mL/hr, Administer over 2 Hours, Every 1 hour PRN, K less than 4.5, Starting on Sun07/10/23 at 1623, Central line only, Indications: hypokalemia potassium chloride ER (KLOR-CON) extended release tablet 20 mEq 20 mEq, oral, Every 4 hours PRN, for K 4.0-4.3, Starting on Sun07/11/23 at 0651, Do not crush, chew, cut, dissolve, open or otherwise manipulate tablet/capsule. 0556 (Given - Provider: Carlita Meier RN) potassium chloride ER (KLOR-CON) extended release tablet 40 mEq 40 mEq, oral, Every 4 hours PRN, For K < 4.0, Starting on Sun07/11/23 at 0651, Do not crush, chew, cut, dissolve, open or otherwise manipulate tablet/capsule. 0626 (Given - Provider: Danica Sanchez, MAHIN) 0519 (Given - Provider: Danica Sanchez, MAHIN) sodium chloride 0.9% flush 0.5-20 mL 0.5-20 mL, intra-catheter, As needed, line care, Starting on Sun07/10/23 at 1623, Flush volume based on line type and size. Flush before and after each use. , Indications: Flushing sodium chloride 0.9% infusion 10 mL/hr, intravenous, Continuous PRN, Hang bag with transfusion; infuse to keep IV line open in the event of a transfusion reaction., Starting on Sun07/10/23 at 0942, Pre-Op Linked Groups Order Group 1: acetaminophen (TYLENOL) tablet 1,000 mgJump to med 1,000 mg, oral, Every 6 hours scheduled, First dose on Sun07/10/23 at 1800, If able to swallow medications., Indications: Pain Or acetaminophen (TYLENOL) 32 mg/mL oral liquid 1,000 mg (CANCELED) 1,000 mg, feeding tube, Every 6 hours scheduled, First dose on Sun07/10/23 at 1800, If taking meds per tube., Indications: Pain Or acetaminophen (TYLENOL) suppository 650 mg (CANCELED) 650 mg, rectal, Every 6 hours scheduled, First dose on Sun07/10/23 at 1800, If unable to tolerate enteral administration., Indications: Pain Group 2: aspirin enteric coated tablet 81 mgJump to med 81 mg, oral, Daily, First dose (after last modification) on Sun07/11/23 at 0900, If able to swallow medications. Within 6h of arrival to CVR if chest tube output allows. Do not crush, chew, cut, dissolve, open or otherwise manipulate tablet/capsule. Group 3: docusate sodium (COLACE) capsule 100 mgJump to med 100 mg, oral, 2 times daily, First dose on Sun07/10/23 at 2100, If able to swallow medications. Hold for diarrhea. , Indications: constipation Or docusate (COLACE) 10 mg/mL oral liquid 100 mg (CANCELED) 100 mg, feeding tube, 2 times daily, First dose on Sun07/10/23 at 2100, If taking meds per tube. Hold for diarrhea., Indications: constipation Group 4: senna (SENOKOT) tablet 1 tabletJump to med 1 tablet, oral, 2 times daily, First dose on Sun07/11/23 at 0900, If able to swallow medications. Hold for diarrhea., Indications: constipation Or senna 1.76 mg/mL syrup 8.8 mg (CANCELED) 8.8 mg, feeding tube, 2 times daily, First dose on Sun07/11/23 at 0900, If taking meds per tube. Hold for diarrhea., Indications: constipation Group 5: dextrose (GLUTOSE) 40 % gel 15 gJump to med 15 g, oral, Every 15 min PRN, low blood sugar, blood glucose less than 70 mg/dL, Starting on Sun07/11/23 at 0733, If patient is alert and able to eat/drink, give 15 gm glucose or one juice (4 fluid ounces) NOT ORANGE JUICE. After treatment for hypoglycemia, recheck BG followed by treatment every 15 minutes until the BG is greater than 100 mg/dL. Then check BG 1 hour post-treatment. If BG is less than 100 mg/dL, repeat Q15 minute BG checks and treatment. Call MD for each episode of hypoglycemia. PHARMACY INTAKE COORDINATOR STATES GLUTOSE-15 CONTAINS GLUCOSE 40% W/W (50% W/V), Indications: hypoglycemic disorder Or dextrose (D10W) 10% bolus 250 mLJump to med 250 mL, intravenous, at 1,000 mL/hr, Administer over 15 Minutes, Every 15 min PRN, blood glucose less than 70 mg/dL and UNABLE to swallow/take PO glucose/juice., Starting on Sun07/11/23 at 0733, After treatment for hypoglycemia, recheck BG followed by treatment every 15 minutes until the BG is greater than 100 mg/dL. Then check BG 1 hour post treatment. If BG is less than 100 mg/dL, repeat Q15 minute BG checks and treatment. Call MD for each episode of hypoglycemia., Indications: hypoglycemic disorder documented in this encounter Orders Medications Ordered That Jorge ht Not Have Been Administered Count Last Ordered Date First Ordered Date furosemide (LASIX) 10 mg/mL injection 20 mg 07/12/2023 dextrose (D10W) 10% bolus 125 mL 07/11/20 dextrose (D10W) 10% bolus 250 mL 07/11/20 dextrose (GLUTOSE) 40 % gel 15 g 07/11/20 glucagon injection 1 mg 07/11/2023 insulin lispro (HumaLOG, ADM ELOG) 100 unit/mL injection 0-10 Units 07/11/2023 insulin lispro (HumaLOG, ADM ELOG) 100 unit/mL injection 0-5 Units 07/11/2023 insulin lispro (HumaLOG, ADM ELOG) 100 unit/mL injection 1-14 Units 07/11/2023 insulin regular bolus from bag 2-14 Units 2 07/11/2023 metoprolol tartrate (LOPRESS OR) immediate release split tablet 6.25 mg 07/11/2023 metoprolol tartrate (LOPRESS OR) immediate release tablet 12.5 mg 07/11/2023 acetaminophen (TYLENOL) 32 m g/mL oral liquid 1,000 mg 07/10/2023 acetaminophen (TYLENOL) suppository 650 mg 07/10/2023 aspirin suppository 300 mg 07/10/2023 aspirin tablet 325 mg 2 07/10/2023 bisacodyL (DULCOLAX) suppository 10 mg Carrier Fluids for Secondary Infusion - 0.9% Sodium Chloride 2 07/10/2023 ceFAZolin (ANCEF) 2,000 mg/2 0 mL in sterile water (premix) 2,000 mg 1 07/10/2023 dextrose 5% water flush 10-30 mL 1 07/10/20 docusate (COLACE) 10 mg/mL o ral liquid 100 mg 1 07/10/2023 famotidine (PEPCID) injection 20 mg 1 07/10 propofoL (DIPRIVAN) 10 mg/mL IV - ADS Override Pull 1 07/10/2023 senna 1.76 mg/mL syrup 8.8 mg 1 07/10/2023 sodium chloride 0.9% flush 0.5-20 mL 3 06/16 sodium chloride 0.9% infusion 2 07/10/2023 sodium chloride 0.9% irrigation 1 sodium chloride 0.9% solution 1 07/10/2023 Lab Orders Without Results Count Last Ordered D ate First Ordered Date POCT GLUCOSE DEVICE 14 07/12/2023 07/10/20 Nursing Count Last Ordered Date First Orde red Date DISCHARGE ACTIVITY 5 07/12/2023 DISCHARGE CALL PROVIDER 4 07/12/2023 DISCHARGE INSTRUCTIONS 2 07/12/2023 WEIGHT RESTRICTIONS 1 07/12/2023 TELEMETRY MONITORING 1 07/11/2023 Admission Count Last Ordered Date First Orde red Date ADMIT TO INPATIENT 1 07/10/2023 Transfer Count Last Ordered Date First Orde red Date TRANSFER PATIENT TO NEW UNIT 2 07/11/2023 07/10/2023 Discharge Count Last Ordered Date First Orde red Date DISCHARGE PATIENT 1 07/14/2023 documented in this encounter Care Teams Bar Host/Hostess Relationship Specialty Start Date End Date Radha Lozada MD [facility] [place] [address] PCP - General Family Medicine 06/25/23 04/29/24 Kali Reddy MD Consulting Physician Cardiology 05/19/19 Keaton Lynn MD [address] [place] [address] Consulting Physician Cardiothoracic Surgery 06/07/23 documented as of this encounter
--- OUTSIDE RECORDS SUMMARY | 2024-09-29 22:09 | XMS_ITS | Encounter Summary ---
Author Organization [facility] Healthcare Address [address] [place] [address] Care Team Providers Care Information Security Analyst Name Role Phone Kali Reddy MD Unavailable [phone] Keaton Lynn MD Unavailable Radha Lozada MD Primary Care Provider [phone] Reason for Visit * Auth/Cert (Routine) Specialty Diagnoses / Procedures Referred By Contac t Referred To Contact Diagnoses Anemia Atrial fibrillation with rapid ventricular response (CMS/HCC) (HCC) Macrocytic anemia Procedures N Referral ID Status Reason Start Date Expiration Date Visits Re quested Visits Authorized [id number] 1 1 Encounter Details Date Type Department Care Team (Late st Contact Info) Description 07/28/2023 8:40 AM CDT Anesthesia Event [facility] [address] [place] [address] Lew Chaparro MD [facility][note 3][address] [facility] [place] [address] Anesthesia Record Procedure Summary Procedure Name Responsible Anesthesiologist Anesthesia Start Time Anesthesia Stop Time ESOPHAGOGASTRODUODENOSCOPY CONTROL BLEED Lew Chaparro MD 07/28/23 0840 07/28/23 0906 Events Date Time Event Comment 07/28/2023 0823 0840 In Room 0840 An Start 0840 An Start Data 0845 Patient Positioned Laterally 0846 Bite Block Placed 0846 An Induction The patient was reevaluated immediately before moderate or deep sedation use and before anesthesia induction. 0848 Proc Start 0848 Anesthesia Ready 0854 Proc Fin 0856 an stop data 0857 Out of Room 0858 Handoff to RN I completed my handoff [...] the time of handoff: No value filed. 905 An Stop 09 Release from [facility] Med Name Total lidocaine (cardiac) syringe 2 % 3 mL propofol 150 mg phenylephrine (OLIVIA-SYNEPHRINE) 1 mg in s odium chloride 0.9% 10 mL solution 200 mcg etomidate 10 mg Lactated Ringer's (LR) infusion 100 mL * Agents Name O2 * Blood No blood administrations on file. Lines, Drains, and Airways Type Details Placement Removal RETIRED Surgical Site 07/10/23; 1243; Mid-line; Sternum; 09/16/24 (Retired LDA, Removed/Completed by Cloudy Days with LDA Utility); 1213 (Retired LDA, Removed/Completed by Cloudy Days with LDA Utility) 07/10/23 1243 by Korina Montez, MAHIN 09/16/24 1213 by Discharge Provider, Automatic RETIRED Surgical Site 07/11/23; 1900; Right; Groin; 09/16/24 (Retired LDA, Removed/Completed by Cloudy Days with LDA Utility); 1213 (Retired LDA, Removed/Completed by Cloudy Days with LDA Utility) 07/11/23 1900 by Carlita Meier RN 09/16/24 1213 by Discharge Provider, Automatic Peripheral IV Placement Date: 07/27/23; Placement Time: 817; Catheter Size: 20 G; Orientation: Anterior, Left; Location: Hand; Removal Date: 07/29/23; Removal Reason: Drainage 07/27/23 0818 by Tam Jimenez, MAHIN 07/29/23 0000 by Joseph Oseguera RN Peripheral IV Placement Date: 07/27/23; Placement Time: 1000; Catheter Size: 18 G; Orientation: Anterior, Proximal, Right; Location: Forearm; Removal Date: 05/26/24 07/27/23 1000 by Tam Jimenez RN 05/26/24 0000 by Javon Candelaria RN documented in this encounter Social History Tobacco [...] How often do you attend chur or alevism services? 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 Gender Identity Not on file Sexual Orientation Not on file documented as of this encounter OR Notes * Anesthesia Postprocedure Evaluation - Francesca Rdz CRNA - 07/28/2023 9:07 AM CDT Patient: Omar Adam Procedure Summary Date: 07/28/23 Room / Location: [facility] GI 03 / [facility] ENDOSCOPY Anesthesia Start: 839 Anesthesia Stop: 905 Procedures: ESOPHAGOGASTRODUODENOSCOPY CONTROL BLEED ENDO ADD ON ESOPHAGOGASTRODUODENOSCOPY BIOPSY Diagnosis: Melena (Melena [K92.1]) Providers: Pedro Luis Brantley DO Responsible Provider: Lew Chaparro MD Anesthesia Type: general TIVA ASA Status: 3 - Emergent Anesthesia Type: general TIVA Last vitals BP 107/74 Pulse 117 Temp 36.5 ??C (97.7 ??F) (Temporal) Resp 24 SpO2 100% Anesthesia Post Evaluation Patient location: GI recovery area. 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 * Anesthesia Preprocedure Evaluation - Lew Chaparro MD - 07/28/2023 8:04 AM CDT Images from the original note were not included. Anesthesia Evaluation Omar Adam is a 77 y.o. male thoracic aortic aneurysm status post root replacement on 07/10/[address] Lynn, he was discharged home on 07/14, history of hypertension and sleep apnea on CPAP who presented to the emergency room today following a syncopal episode. Admitted with afIB/rvr and Hgb 5.5 Hgb 7.4 07/28/23 after 5 PRBC Procedure(s): ESOPHAGOGASTRODUODENOSCOPY Pre-Op Diagnosis Codes: * Melena [K92.1] NPO Status Date of Last Liquid: 07/27/23 Time of Last Liquid: 2329 Date of Last Solid: 07/27/23 Time of Last Solid: 2129 HISTORY Past Medical History Neurological Neuro/Psych system: negative Cardiovascular + Hypertension + Atrial fibrillation/flutter - Current Rhythm: non-fibrillation/flutter. Rhythm type: paroxysmal (multiple episodes < 7 days). + PAD/Aorta disease (open aortic root replacement 07/10/23) - prior open revascularization. Respiratory + Sleep apnea (MONIKA) Hepatic / [...] pressure. Electronically Signed By: Parish Monae MD, [facility] 2023-07-28 05:05:41 CDT Patient Active Problem List [...] (BMI) of 31.0 to 31.9 in adult Past Medical History: Diagnosis Date Anemia Arthritis Arthritis; Comments: [facility] 10/19/2015 - Atrial fibrillation (CMS/HCC) (HCC) Coronary artery disease HX OTHER MEDICAL ascending aortic aneurysm; Comments: [facility] 10/19/2015 - Hypertension Hypertension Sleep apnea Sleep apnea Past Surgical History: Procedure Laterality Date CORONARY ARTERY BYPASS GRAFT N/A 07/14/2023 No Known Allergies Med List Status: Pharmacy Complete Set By: Coty Turk [facility] at 07/27/2023 8:54 AM Taking? Last Dose Start Date End Date Provider acetaminophen (TylenoL) 325 mg tablet Unknown -- -- Provider, MD Sandra aspirin 81 mg enteric coated tablet 07/26/2023 07/15/23 07/14/24 Frederic Rushing PA Take 1 tablet (81 mg total) by mouth daily atorvastatin (LIPITOR) 40 mg tablet 07/26/2023 07/25/23 -- Keaton Lynn MD Take 1 tablet (40 mg total) by mouth daily metoprolol tartrate (LOPRESSOR) 25 mg immediate release tablet 07/26/2023 07/25/23 -- Hieu Lynn MD Take 1 tablet (25 mg total) by mouth 2 (two) times a day Current Facility-Administered Medications: [MAR Hold] acetaminophen (TYLENOL) tablet 650 mg, 650 mg, oral, Q4H PRN, 650 mg at 07/27/23 1334 [DEC Hold] atorvastatin (LIPITOR) tablet 40 mg, 40 mg, oral, Daily, 40 mg at 07/27/23 1713 [DEC Hold] Carrier Fluids for Secondary Infusion - 0.9% Sodium Chloride, 30 mL, intravenous, PRN Lactated Ringer's (LR) infusion, 100 mL/hr, intravenous, Continuous, Stopped at 07/28/23 0230 [DEC Hold] metoprolol tartrate (LOPRESSOR) immediate release tablet 25 mg, 25 mg, oral, BID [DEC Hold] ondansetron ODT (ZOFRAN-ODT) disintegrating tablet 4 mg, 4 mg, oral, Q6H PRN OR [MARHold] ondansetron (ZOFRAN) injection 4 mg, 4 mg, intravenous, Q6H PRN [MAR Hold] pantoprazole (PROTONIX) 40 mg in sodium chloride 0.9% 10 mL IV Syringe, 40 mg, intravenous, BID, 40 mg at 07/27/23 2100 [MAR Hold] sodium chloride 0.9% flush 0.5-20 mL, 0.5-20 mL, intra-catheter, Q8H GINNA [MAR Hold] sodium chloride 0.9% flush 0.5-20 mL, 0.5-20 mL, intra-catheter, PRN [MAR Hold] sodium chloride 0.9% IVPB 0-250 mL, 0-250 mL, intravenous, Once, Held at 07/27/23 1109 [MAR Hold] sodium chloride 0.9% IVPB 0-250 mL, 0-250 mL, intravenous, Once, Held at 07/27/23 1900 [MAR Hold] sodium chloride 0.9% IVPB 0-250 mL, 0-250 mL, intravenous, Once, Held at 07/28/23 0230 Social History Tobacco Use Smoking Status Never [...] Family history of Coronary artery disease; Vitals: 07/28/23 0333 07/28/23 0430 07/28/23 0739 BP: 139/72 101/65 107/74 Pulse: 98 114 117 Resp: 24 Temp: 36.7 ??C (98.1 ??F) 37.1 ??C (98.7 ??F) 36.5 ??C (97.7 ??F) SpO2: 99% 98% 100% PT: 07/27/2023: 13.9 sec (H) INR: 07/27/2023: 1.22 (H) APTT: 07/27/2023: 26 sec (L) Hgb A1C: 07/10/2023: 5.2 % CBC RBC: 07/28/2023: 2.42 M/cumm (L) RDW: No results found for requested labs within last 30 days. MCHC: 07/28/2023: 32.6 g/dL MCH: 07/28/2023: 30.6 pg MCV: 07/28/2023: 93.8 fL Hct: 07/28/2023: 22.7 % (L) Hgb: 07/28/2023: 7.4 g/dL (L) WBC: 07/28/2023: 7.8 K/cumm MPV: 07/28/2023: 9.0 fL (L) Platelets: 07/28/2023: 210 K/cumm RDW CV: 07/28/2023: 15.4 % (H) RDW Sd: 07/28/2023: 49.2 fL (H) BMP Glucose: 07/28/2023: 105 mg/dL Calcium: 07/28/2023: 8.4 mg/dL (L) Sodium: 07/28/2023: 138 mmol/L Potassium: 07/28/2023: 3.9 mmol/L CO2: 07/28/2023: 20 mmol/L (L) Chloride: 07/28/2023: 108 mmol/L BUN: 07/28/2023: 29 mg/dL (H) Creatinine: 07/28/2023: 0.80 mg/dL DOS Physical Exam Medical history, medications, and allergies reviewed. Attestation: This PAT evaluation 07/10/2023. Airway Exam: Mallampati: III Cervical ROM: FROM Cardiovascular Exam: Rate: regular Rhythm: regular Pulmonary Exam: LCTA, bilat Dental Exam: Appears intact Current state: Patient's current state is cooperative and interactive. Anesthesia Plan ASA 3- emergent My patient is approved for the Anesthesia Controlled Medication protocol when under care of a GAMMA OPERATOR Planned anesthesia: General TIVA Induction: Induction: intravenous. Postoperative Plan: No plan for postoperative opioid use. No postoperative mechanical ventilation intended. Patient's planned disposition post procedure is Floor. Informed Consent: Anesthesia plan and risks discussed with patient. Consent and Attending signature: I and/or my designee have discussed the anesthesia plan, benefits, possible alternatives, parental presence at time of induction (if indicated), and clinically relevant risks that may include dental injury, unintentional awareness, and/or other complications. The patient and/or parent/legal guardian understand, and agree to proceed. All questions answered. documented in this encounter Plan of Treatment Not on file documented as of this encounter Visit Diagnoses Not on filedocumented in this encounter Administered Medications Inactive Administered Medications - up to 3 most recent administrations Medication Order MAR Action Action Date Dose Rate Site etomidate (AMIDATE) injection intravenous, Administer over 1 Minutes, As needed, Starting on 07/28/23 at 0846, Anesthesia Intra-op Given 07/28/2023 8:46 AM CDT 10 mg Lactated Ringer's (LR) infusion 100 mL/hr, intravenous, Continuous, Starting on Sun07/27/23 at 1645, For 1 day Restarted 07/28/2023 8:53 AM CDT Restarted 07/28/2023 8:40 AM CDT 50 mL/hr New Bag 07/27/2023 11:27 PM CDT 100 mL/hr 100 mL/hr lidocaine (cardiac) (XYLOCAINE) preservative free injection intravenous, As needed, Starting on 07/28/23 at 0846, Anesthesia Intra-op, Indications: Ventricular ArrhythmiasIndications:Ventricular Arrhythmias Given 07/28/2023 8:46 AM CDT 3 mL phenylephrine (OLIVIA-SYNEPHRINE) 1 mg in sodium chloride 0.9% 10 mL solution intravenous, Continuous PRN, Starting on 07/28/23 at 0849, Anesthesia Intra-op Bolus 07/28/2023 8:52 AM CDT 100 mc g New Bag 07/28/2023 8:49 AM CDT 100 mcg propofoL (DIPRIVAN) 10 mg/mL IV intravenous, As needed, Starting on 07/28/23 at 0846, Anesthesia Intra-op Given 07/28/2023 8:46 AM CDT 150 mg documented in this encounter Care Teams Information Security Analyst Relationship Specialty Start Date End Date Radha Lozada MD [address] [place] [address] [place] [address] PCP - General Family Medicine 06/25/23 04/29/24 Kali Reddy MD Consulting Physician Cardiology 05/19/19 Keaton Lynn MD [address] [facility] [address] [place] [address] Consulting Physician Cardiothoracic Surgery 06/07/23 documented as of this encounter
--- OUTSIDE RECORDS SUMMARY | 2024-09-29 22:09 | XMS_ITS | Encounter Summary ---
Author Organization [facility] Healthcare Address [address] [place] [address] Care Team Providers Care Draw Frame Operator Name Role Phone Kali Reddy MD Unavailable [phone] Keaton Lynn MD Unavailable [phone] Radha Lozada MD Primary Care Provider [phone] Reason for Visit * Reason Onset Date Comments Reaction to flu/covid vaccine 07/26/2023 Encounter Details Date Type Department Care Team (Late st Contact Info) Description 07/26/2023 Telephone Cardiovascular and Thoracic Surgery [address] [facility] [address] [place] [address] Hernan Helton, RN [address] [facility] [address] [place] [address] Reaction to flu/covid vaccine Social History Tobacco Use Types Packs/Day Years [...] week 07/12/2023 How often do you attend [facility] or holiness services? More than 4 times [...] place to sleep or slept in a residential (including now)? 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 She denies any shortness of breath, fevers or muscle aches, but he is c/o dizziness and headache. His B/P was low this am when he went from sitting to standing, reported at 70/50 with a HR of 110. He has increased his fluid intake and is resting. When I was speaking with her, I had him repeat his VS, and B/P was up to 108/68 sitting. I told Jackie that he should be careful with position change and arise slowly, and wait until he is not dizzy before doing any walking. I advised he continue to increase his fluid, at least to a minimum of 8 8oz servings of liquid daily. She does not feel he has had that much fluid daily. I told her if he feels worse, or develops shortness of breath, he may need to be evaluated in the ER. I also instructed he hold his evening dose of Metoprolol if his systolic B/P is < 110. She verbalized understanding. documented in this encounter Plan of Treatment Not on file documented as of this encounter Visit Diagnoses Not on filedocumented in this encounter Care Teams Draw Frame Operator Relationship Specialty Start Date End Date Radha Lozada MD [facility] [place] [address] PCP - General Family Medicine 06/25/23 04/29/24 Kali Reddy MD Consulting Physician Cardiology 05/19/19 Keaton Lynn MD [address] [facility] [address] [place] [address] Consulting Physician Cardiothoracic Surgery 06/07/23 documented as of this encounter
--- OUTSIDE RECORDS SUMMARY | 2024-09-29 22:09 | XMS_ITS | Encounter Summary ---
Author Organization [facility] Healthcare Address [address] [place] [address] Care Team Providers Care Member Service Representative Name Role Phone Kali Reddy MD Unavailable Keaton Lynn MD Unavailable [phone] Radha Lozada MD Primary Care Provider [phone] Encounter Details Date Type Department Care Team (Late st Contact Info) Description 07/25/2023 Orders Only Cardiovascular and Thoracic Surgery [address] [facility] [address] [place] [address] Keaton Lynn MD [address] [facility] [address] [place] [address] Social History Tobacco Use Types [...] How often do you attend chur or mormon services? More than 4 times per year [...] slept in a snf (including now)? 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 Gender Identity Not on file Sexual Orientation Not on file documented as of this encounter Ordered Prescriptions Prescription Sig Dispense Quantity Refills Last Filled Start Date End Date atorvastatin (LIPITOR) 40 mg tablet Take 1 tablet (40 mg total) by mouth daily 90 tablet 07/25/2023 11/20/2023 metoprolol tartrate (LOPRESSOR) 25 mg immediate release tablet Take 1 tablet (25 mg total) by mouth 2 (two) times a day 30 tablet 3 07/25/2023 10/23/2023 documented in this encounter Progress Notes * Hernan Helton RN - 07/25/2023 10:37 AM CDT Encounter to order requested refills documented in this encounter Plan of Treatment Not on file documented as of this encounter Visit Diagnoses Not on filedocumented in this encounter Discontinued Medications Medication Sig Discontinue Reason Start Date End Da te atorvastatin (LIPITOR) 40 mg tablet Take 1 tablet by mouth once daily Reorder 05/16/2023 07/25/2023 metoprolol tartrate (LOPRESSOR) 25 mg immediate release tablet Take 0.5 tablets (12.5 mg total) by mouth 2 (two) times a day Reorder 07/14/2023 07/25/2023 documented as of this encounter Care Teams Member Service Representative Relationship Specialty Start Date End Date Radha Lozada MD [facility] [place] [address] PCP - General Family Medicine 06/25/23 04/29/24 Kali Reddy MD Consulting Physician Cardiology 05/19/19 Keaton Lynn MD [address] [facility] [address] [place] [address] Consulting Physician Cardiothoracic Surgery 06/07/23 documented as of this encounter
--- OUTSIDE RECORDS SUMMARY | 2024-09-29 22:09 | XMS_ITS | Encounter Summary ---
Author Organization [facility] Healthcare Address [address] [place] [address] Care Team Providers Care Baby Sitter Name Role Phone Kali Reddy MD Unavailable [phone] Keaton Lynn MD Unavailable Radha Lozada MD Primary Care Provider [phone] Reason for Visit * Reason Onset Date Comments Arrhythmia 07/17/2023 Encounter Details Date Type Department Care Team (Late st Contact Info) Description 07/17/2023 Telephone Cardiovascular and Thoracic Surgery [address] [facility] [address] [place] [address] Hernan Helton, RN [address] [facility] [address] [place] [address] Arrhythmia Social History Tobacco Use Types Packs/Day Years [...] 07/12/2023 How often do you attend [facility] or congregational services? More than 4 times per year 07/12/2023 Do you belong to any clubs o r organizations such as mandaen groups, unions, fraternal or athletic groups, or [...] place to sleep or slept in a assisted (including now)? 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 His current HR is 77 and regular, B/P 125/67. I instructedhe increase his Metoprolol to a full 25 mg tablet BID, and report any further episodes to us, and we may have him reach out to Dr. Reddy if these episodes persist, to determine if anticoagulation is n eeded. I also gave the order for nursing to remove the right groin suture. 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 His heart rate was very irregular this morning and the rate was 50-150 bpm. Later on, after the patient sat down and rested, it was regular and 77 bpm. He says he feels off and is short of breath. Also, he has a suture in his right groin area and is wondering if that can be removed. documented in this encounter Plan of Treatment Not on file documented as of this encounter Visit Diagnoses Not on filedocumented in this encounter Care Teams Baby Sitter Relationship Specialty Start Date End Date Radha Lozada MD [address] [place] [address] [place] [address] PCP - General Family Medicine 06/25/23 04/29/24 Kali Reddy MD Consulting Physician Cardiology 05/19/19 Keaton Lynn MD [address] [facility] [address] [place] [address] Consulting Physician Cardiothoracic Surgery 06/07/23 documented as of this encounter
--- OUTSIDE RECORDS SUMMARY | 2024-09-29 22:09 | XMS_ITS | Encounter Summary ---
Author Organization [facility] Address [address] [place] [address] Care Team Providers Care Graduate Intern Name Role Phone Kali Reddy MD Unavailable [phone] Keaton Lynn MD Unavailable [phone] Radha Lozada MD Primary Care Provider [phone] Reason for Referral * Home Health (Routine) - Closed Specialty Diagnoses / Procedures Referred By Contac t Referred To Contact Home Health Services Diagnoses Atrial fibrillation with rapid ventricular response (CMS/HCC) (HCC) Jonn Willis MD [address] [place] [address] Phone: tel: fax: Unknown Place of Service fax: Referral ID Status Reason Start Date Expiration Date V isits Requested Visits Authorized [id number] Closed Specialty Services Required 07/31/2023 08/29/2024 1 1 [facility] Primary disciplines requested: Fpc, Physical Therapy Secondary disciplines requested: Occupational Therapy Home Health Services Disease and Medication Management, Therapy to Eval/Tx Therapy instructions: ADL/ ladl management, Evaluation/treatment Requested Start of Care Date: 24-48 [...] skilled assessment/education, Wound requiring care, assessment, and instruction I certify that my clinical findings support patient's homebound status. Homebound criteria met because: Poor endurance, Requires assistance of another to leave home safely, Pain and impaired mobility post-op Reason for Visit * Reason Comments Dizziness * Auth/Cert (Routine) Specialty Diagnoses / Procedures Referred By Contac t Referred To Contact Diagnoses Anemia Atrial fibrillation with rapid ventricular response (CMS/HCC) (HCC) Macrocytic anemia Procedures N Referral ID Status Reason Start Date Expiration Date Visits Re quested Visits Authorized [id number] 1 1 Encounter Details Date Type Department Care Team (Latest Contact Info) Description 07/27/2023 7:52 AM CDT - 07/31/2023 4:00 PM CDT Hospital Encounter [facility] [address] [place] [address] Lew Garcia MD [address] [place] [address] Nighat Angeles MD [address] [place] [address] Ebenezer Rosa MD [address] [place] [address] [place] [address] Mandi Simpson MD [address] [place] [address] Jonn Willis MD [facility] [facility] [place] [address] Pedro Luis Brantley DO [address] [place] [address] Atrial fibrillation with rapid ventricular response (CMS/HCC) (HCC) (Primary Dx); Macrocytic anemia; Melena Discharge Disposition: Discharge to home or self [...] How often do you attend chur or yazdanism services? More than 4 times per year 07/30/2023 Do you belong to any clubs o r organizations such as jewish groups, unions, fraternal or athletic groups, or [...] in a custodial (including now)? 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 Gender Identity Not on file Sexual Orientation Not on file documented as of this encounter Last Filed Vital Signs Vital Sign Reading Time Taken Comments Blood Pressure 97/71 07/31/2023 12:42 PM CDT Pulse 96 07/31/2023 12:42 PM CDT Temperature 36.9 ??C (98.4 ??F) 07/31/2023 1 2:42 PM CDT Respiratory Rate 18 07/31/2023 12:4 2 PM CDT Oxygen Saturation 100% 07/31/2023 12: 42 PM CDT Inhaled Oxygen Concentration - - [...] Patient Age - 77 yrs Patient - [id number] [facility] - [id number] Document Creation Date: 07/31/2023 Admitting Provider, : Pedro Luis Brantley DO Discharge Provider, : Jonn Willis MD Primary Care Physician at Discharge: Radha Lozada MD [phone] Admission Date: 07/27/2023 Discharge Date/time: 07/31/2023 Admission Location: [facility] LOS - LOS: 4 days DETAILS [...] Your Medications These medications were sent to [facility] [address] - [place], [place] - [address], [place] [address] 40 mg EC tablet Time [...] Center 08/16/2023 9:45 AM Keaton Lynn MD [facility] [id number] PSA 05/21/2024 9:15 AM [facility] CT-5 [facility] CT [facility] Main 05/21/2024 10:30 AM Kali Reddy MD [facility] [address] 200 Specialty Contact Information for Follow-ups [facility] Home Care Services Specialty: Home Health and Hospice [address] [facility] [address] Next Steps: Follow up Questions: Service Line: Home Health Primary disciplines requested: Fpc Physical Therapy Secondary disciplines requested: Occupational Therapy [...] schedule an appointment with the following provider(s): [facility] Services [address] [facility] [address] Radha Lozada MD [address] [place] [address] [address] [facility] [address] Call for follow up with primary care provider in one week Kali Reddy MD [address] [place] [address] [facility] [address] Expedite follow up for watchman evaluation Keaton Lynn MD [address] [place] [address] [facility] [address] keep appointment as scheduled for 08/16 [facility] [address] [facility] [address] ANCILLARY INFORMATION Other Procedures & Diagnostic Tests: [...] (TTE) Complete W Doppler/CF Result Date: 07/28/2023 [place] [address] [place] [address] ECHOCARDIOGRAM Patient Name: JUDI ADAM L : 1945 Study Date: 07/27/2023 3:42:15 PM Gender: M Tech: Location: [id number] Ref.Provider: ERIN MONK Height(Cm): 183 BSA: 2.35 Weight(Kg): 108.9 BP: 108/60Order Provider: ERIN MONK - Procedures: Echocardiographic Report: Transthoracic Echocardiogram with 2D, M-Mode, Spectral and Color Flow Doppler examination and administration of intravenous contrast. Indications: Atrial fibrillation. Measurements: 2D/M Mode Doppler Measurement Value Normal Range Measurement Value Normal Range IVSd 2D 1.87 [ 0.60 - 0.90 ] cm AVPeak Stan 1.9 [ 1.0 - 1.7 ] m/s LVIDd 2D 5.30 [ 4.20 - 5.90 ] cm AV Peak PG 15 [ 2 - 9 ] mmHg BTGYk8O 3.58 [ 2.30 - 3.90 ] cm AV Mean PG 9 [ 2 - 4 ] mmHg LVPWd 2D 1.68 [ 0.60 - 1.00 ] cm AV VTI 30.7cm LA Dimension 2D 3.75 [ 3.00 - 4.00 ] cm CATHI VTI 2.2 [ 2.0 - 4.0 ] cm2 AoR Diam 2D 2.68 [ 2.60 - 3.70 ] cm LVOT Peak Stan 1.35 [ 0.70 - 1.10 ] m/s LA Volume Index 32.95 [ 16.00 - 28.00 ] ml/m2 LVOT Diam 2.0 [ 1.7 - 2.1 ] cm [...] Pressure 15.0 mmHg PV Peak Stan 1.4 [ 0.4 - 0.8 ] m/s PV [...] enlargement of the left atrium. Right Atrium: Theright atrium is normal in size. Atrial Septum: Normal appearing atrial septum. Mitral Valve: Normalappearance of the mitral valve leaflets. Mild mitral [...] Normal caliber aortic root. Aortic Arch: The ao rtic arch is poorly visualized. IVC: Dilated inferior [...] pressure. Electronically Signed By: Parish Monae MD, [facility] 2023-07-28 05:05:41 CDT CC: CC: CTA Chest [...] Rate: 122 bpm RR Interval: 489 msec HI Interval: 0 msec QRS Duration: 110 msec QT Interval: 371 msec QTC Interval: 444 msec P-R-T Julian: 0 - -37 - 71 degrees IMPRESSION: ATRIAL FIBRILLATION WITH RAPID VENTRICULAR RESPONSE LEFT AXIS DEVIATION NONSPECIFIC ST \T\ T-WAVE ABNORMALITY ABNORMAL ECG Electronically Signed By: Javon Lopez MD [facility] Recent Labs: Recent Labs Lab Units 07/31/2332107/30/233 07/29/23 1144 07/29/23 0257 WBC K/cumm 4.4 4.9 -- 6.2 HEMOGLOBIN g/dL 7.6* 7.4* 7.9* 7.1* HEMATOCRIT % 24.6* 23.4* 25.1* 22.5* PLATELETS K/cumm 163 166 -- 188 Recent Labs Lab Units 07/31/23 0322 07/30/23 0353 07/29/23 1144 07/29/23 0257 07/27/23 1205 07/27/23 0821 WBC K/cumm 4.4 4.9 [...] interval not displayed. Recent Labs Lab Units 07/31/2332107/30/2335207/29/2325607/28/2362807/27/2314 07/27/2321 SODIUM mmol/L 138 138 137 138 -- 138 POTASSIUM PLASMA mmol/L 3.6 3.5 3.5 3.9 -- 4.6 CHLORIDE mmol/L 105 104 106 108 -- 105 CO2 mmol/L 26 27 24 20* -- 19* BUN SERUM mg/dL 12 11 16 29* -- 33* CREATININE mg/dL 0.97 0.92 0.84 0.80 -- 0.85 UPT-WMN-[id number] mL/min/1.73 m2 80 86 90 91 -- 90 GLUCOSE mg/dL 97 93 92 105 -- 136 CALCIUM mg/dL 8.1* 8.0* 7.9* 8.4* -- 8.5 ALBUMIN g/dL 2.8* -- -- -- -- 3.1* PHOSPHORUS PLASMA mg/dL 3.8 -- -- 2.5 2.9 -- Recent Labs Lab Units 07/31/2332107/30/2335207/29/2325607/28/2362807/27/23 0821 SODIUM mmol/L 138 138 137 < > 138 POTASSIUM PLASMA mmol/L 3.6 3.5 3.5 < > 4.6 CHLORIDE mmol/L 105 104 106 < > 105 CO2 mmol/L 24 < > 19* ANIONGAP mmol/L 7 [...] not displayed. Recent Labs Lab Units 07/27/23 0821 ALK PHOS Units/L 61 BILIRUBIN TOTAL mg/dL 0.5 TOTAL PROTEIN g/dL 5.8* ALT Units/L 31 AST Units/L 46 Recent Labs Lab Units 07/31/23 0322 07/28/23 0629 07/27/23 0914 MAGNESIUM mg/dL 2.3 2.1 2.6* Recent Labs Lab Units 07/27/23 1205 PROTIME (PT) sec 13.9* INR 1.22* APTT sec 26* Lab Results Component Value Date GLUCOSE 97 07/31/2023 GLUCOSE 93 07/30/2023 GLUCOSE 92 07/29/2023 Implant: Implants Type Not Specified [employer] Graft Biological Cardiovascular Photofix 6x8cm Acellular Dermis Pfp 6x8 - [id number] - Implanted Heart Inventory item: [employer] Graft Biological Cardiovascular Photofix 6x8cm Acellular Dermis PFP 6X8 Model/Cat number: [id number] Underwriting Operations Manager: [employer] Lot number: [id number] As of 07/10/2023 Status: Implanted [employer] Conduit Cardiovascular Aortic Valved Konect Resilia 25mm Bovine [id number] - [id number] - [id number] - Implanted Aorta Inventory item: [employer] Conduit Cardiovascular Aortic Valved Konect Resilia 25mm Bovine [id number] Model/Cat number: [id number] Serial number: [id number] Underwriting Operations Manager: [employer] Size: 25 mm As of 07/10/2023 Status: Implanted Abyrx Hemasorb Os-Spa Spatula Wax 2gm Bone Sterile Os-201 - [id number] - Implanted Aorta Inventory item: ABYRX Hemasorb OS-SPA Spatula Wax 2gm Bone Sterile OS-201 Model/Cat number: [id number] Underwriting Operations Manager: Abyrx Lot number: [id number] As of 07/10/2023 Status: Implanted Arthrex Inc Device Closure Fibertape Sternal Cerclage Blunt Needle Ar-7289 - [id number] - Implanted Sternum Inventory item: [employer] Device Closure Fibertape Sternal Cerclage Blunt Needle AR-7289 Model/Cat number: [id number] Underwriting Operations Manager: [employer] Inc Lot number: [id number] As of 07/10/2023 Status: Implanted Synthes 3mm 16mm Self Drill Lock Sternal Screw Bone Titanium Nonsterile [phone] - [id number]- Implanted Sternum Inventory item: SYNTHES 3mm 16mm Self Drill Lock Sternal Screw Bone Titanium Nonsterile [phone] Model/Cat number: [phone] Underwriting Operations Manager: Synthes As of 07/10/2023 Status: Implanted Synthes 8 Hole Locking Manubrium Sternum H Large Plate Bone Titanium 460.028 - [id number] - Implanted Sternum Inventory item: SYNTHES 8 Hole Locking Manubrium Sternum H Large Plate Bone Titanium 460.028 Model/Cat number: [id number] Underwriting Operations Manager: [employer]s As of 07/10/2023 Status: Implanted General Precautions (If Blank, None Found): Isolation Status: No active isolations Nutritional Status and in-house recommendations: Dietary Orders (From admission, onward) Start Ordered 07/29/231847 Adult Diet Special; Low Fat, Low Chol, Low Na Diet effective now Question Answer Comment ([facility]) Diet type Special Fat / Sodium Restriction: Low Fat, Low Chol, Low Na 07/29/231846 Anticoagulation Indication: INR: 07/27/2023: 1.22 (H) Warfarin Administrations (last 168 hours) None Oxygen Status: O2 Therapy for the past 12 hrs: O2 Therapy 07/31/23 0427 Supplemental oxygen 07/31/23 0018 None (Room air) Wound Care Instructions Other Instructions Ambulatory referral to Home Health Service Line: Home Health Primary disciplines requested: Fpc Physical Therapy Secondary disciplines requested: Occupational Therapy [...] in this encounter Progress Notes * Carlita uDrant PA - 07/31/2023 10:17 AM CDT Gastroenterology [...] (Mak Class IIc). Clip was placed. 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 - Normal stomach. Biopsied. - Normal esophagus. [...] from the original note were not included. [facility] Cardiology [address] [facility] [address] [address] Cardiology Yariel Hills, MD Kali Rdedy, MD Wellington Dugan, MD Parish Monae, MD Kilo Sims, MD Johnny Maher, MD Osmin Barbosa, MD Nicolas Golden, MD Best Ramirez, MD Javon Lopez, MD Rory Dowling, MD Beth Smith, [employer]DEL ART[employer] Erin Monk, [employer] Elise Kirkpatrick, [facility] Cardiology Daily Progress Note Patient Name: Judi Adam Provider: Kali Reddy MD : 1945 Date of Service: 07/31/2023 This note was dictated with voice-recognition software, and pulverizer tender errors may be present. SUBJECTIVE: He has [...] 25 mg, oral, BID, 25 mg at ondansetron ODT (ZOFRAN-ODT) disintegrating tablet 4 mg, [...] anxious Lab/Radiology/Diagnostic Reviewed: Recent Labs Lab Units 07/30/233 07/29/23 1144 07/29/237 07/28/23 1838 07/28/23 0629 WBC K/cumm 4.9 -- 6.2 -- 7.8 HEMOGLOBIN g/dL 7.4* 7.9* 7.1* < > 7.4* HEMATOCRIT % 23.4* 25.1* 22.5* < > 22.7* < > = values in this interval not displayed. Recent Labs Lab Units 07/30/2335207/29/2325607/28/23 0629 07/27/23 0914 07/27/23 0821 SODIUM mmol/L [...] (Mak Class IIc). Clip was placed. 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 - Normal stomach. Biopsied. - Normal esophagus. [...] Pedro Luis Brantley, DO, 650 mg at 07/30/23825 atorvastatin (LIPITOR) tablet 40 mg, 40 mg, oral, Daily, Pedro Luis Brantley, DO, 40 mg at 07/30/23825 Carrier Fluids for Secondary Infusion - 0.9% Sodium Chloride, 30 mL, intravenous, PRN, StevenE. Karon, metoprolol tartrate (LOPRESSOR) immediate release tablet 25 mg, 25 mg, oral, BID, Pedro Luis Brantley, , 25 mg at 07/30/23825 ondansetron ODT (ZOFRAN-ODT) disintegrating tablet 4 mg, 4 mg, oral, Q6H PRN OR ondansetron (ZOFRAN) injection 4 mg, 4 mg, intravenous, Q6H PRN, Pedro Luis Brantley, pantoprazole (PROTONIX) 40 mg in sodium chloride 0.9% 10 mL IV Syringe, 40 mg, intravenous, BID, Pedro Luis Brantley, , 40 mg at 07/30/23823 sodium chloride 0.9% flush 0.5-20 mL, 0.5-20 mL, intra-catheter, Q8H GINNA, Pedro Luis Brantley, DO, 10 mL at 07/29/232024 sodium chloride 0.9% flush 0.5-20 mL, 0.5-20 [...] you have any further questions. * Parish Harrell PA - 07/29/2023 10:02 AM CDT Gastroenterology Progress GI Problems: UGIB 2/2 PUD Interval History: Patient seen: Feeling good. EGD yesterday showed a non bleedng duodenal ulcer. Reviewed findings with patient. Vitals: 07/29/23 0034 07/29/23 0300 07/29/23 0344 07/29/23 0827 BP: 98/67 109/67 117/77 BP Location: Left arm Left arm Left arm Patient Position: Lying Lying Sitting Pulse: 102 84 90 94 Resp: 22 22 Temp: 37 ??C (98.6 [...] alert. Lab/Radiology/Diagnostic Review: Recent Labs Lab Units 07/29/2325607/28/23 1838 07/28/2362807/27/23 1635 07/27/23 1205 WBC K/cumm 6.2 -- 7.8 -- 8.0 HEMOGLOBIN g/dL 7.1* 7.6* 7.4* < > 5.7* HEMATOCRIT % 22.5* 23.6* 22.7* < > 18.4* PLATELETS K/cumm 188 -- 210 -- 270 < > = values in this interval not displayed. Recent Labs Lab Units 07/29/2325607/27/23 1205 07/27/23 0821 WBC K/cumm 6.2 < [...] interval not displayed. Recent Labs Lab Units 07/29/2325607/28/23 0607/27/23 0821 SODIUM mmol/L 137 138 138 POTASSIUM [...] the cervical spine. Electronically signed by: Evin Fowelr MD 07/28/23 EGD Impression: - Normal second portion of the duodenum. - Non-bleeding duodenal ulcer with a flat pigmented spot (Mak Class IIc). Clip was placed. 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 - Normal stomach. Biopsied. - Normal esophagus. [...] outpt screening colonoscopy as health permits. CARLY Muarice Cosigned by Pedro Luis Brantley DO at [...] condition posing threat to life * Elise Day, ALEX - 07/29/2023 7:05 AM CDT [facility] Cardiology [address] [address] Cardiology Yariel Hills, MD Kali Reddy, MD Wellington Dugan, MD Parish Monae, MD Johnny Maher, MD Osmin Barbosa, MD Best Ramirez, MD Nicolas Golden, MD Javon Lopez, MD Rory Dowling, MD Kilo Day, [employer] Clyde Stovall, [employer] Erin Monk, [employer] Beth Smith, [employer] Cardiology Daily Progress Note Provider: Elise Day [...] Pulse: 82 102 84 90 Resp: 22 Temp: 37 ??C (98.6 ??F) [...] This note was dictated with voice-recognition software, pulverizer tender errors may be present. Elise Day NP [...] PM Result Value Ref Range Product code Q3093U98 Unit Number [id number] Product Blood Type OPOS Dispense Status ISSUED Product code T0010V30 Unit Number [id number] Product Blood Type OPOS Dispense Status PRESUMED TRANSFUSED Hemoglobin and hematocrit Collection Time: 07/27/23 11:24 PM Result Value Ref Range Hgb 6.9 (L) 13.0 - 17.5 g/dL Hct 22.2 (L) 38.9 - 50.3 % Prepare RBC: 1 Units Collection Time: 07/28/23 2:05 AM Result Value Ref Range Product code O2003S03 Unit Number [id number] Product Blood Type OPOS Dispense Status ISSUED [...] Day NP - 07/28/2023 7:04 AM CDT [facility] Cardiology [facility] [facility] [address], [place] [address] Cardiology Yariel Hills, MD Kali Reddy, MD Wellington Dugan, MD Parish Monae, MD Johnny Maher, MD Osmin Barbosa, MD Best Ramirez, MD Nicolas Golden, MD Javon Lopez, MD Rory Dowling, MD Kilo Day, [employer] Clyde Stovall, [employer] Erin Lacho, [employer] Beth Sarah, [employer] Cardiology Daily Progress Note Provider: Elise Day NP Patient Name: Judi Adam : 1945 Date of Service: 07/28/2023 CHIEF COMPLAINT: Dizziness SUBJECTIVE: - Patient denies chest pain, but still has some shortness of breath with exertion. - He reports having black tarry stools. He is scheduled for EGD today. - Telemetry shows sinus rhythm/tachycardia with heart rates in the 90- [id number]. MEDICATIONS [MAR Hold] atorvastatin, 40 mg, oral, Daily [MAR Hold] metoprolol tartrate, 25 mg, oral, BID [MAR Hold] pantoprazole, 40 mg, intravenous, BID [MAR Hold] sodium chloride 0.9%, 0.5-20 mL, intra-catheter, Q8H GINNA PHYSICAL EXAM: Vitals: 07/28/23 0319 07/28/23 0333 07/28/23 0430 07/28/23 0739 BP: 139/72 101/65 107/74 BP Location: Right arm Patient Position: Lying Pulse: 115 98 114 117 Resp: 18 24 Temp: 36.7 ??C (98.1 ??F) 37.1 [...] This note was dictated with voice-recognition software, pulverizer tender errors may be present. Elise Day NP [...] Mateusz Brantley DO Contact info: Week - [phone]; After hours: [phone] Referring doctor: Nighat Angeles MD PCP: Radha [...] Medical History: Diagnosis Date Arthritis Arthritis; Comments: [facility] 10/19/2015 - HX OTHER MEDICAL ascending aortic aneurysm; Comments: [facility] 10/19/2015 - Hypertension Hypertension Sleep apnea Sleep [...] Patient reports that he was discharged from [facility] on 07/14/2023 after undergoing aortic root replacement. [...] was notified. He was brought to the [facility] Emergency Department further evaluation. 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 Date of : 1945 Instrument Name: [id number] [...] one hemostatic clip was successfully placed. 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 There was no bleeding during, or at the end, of the procedure. The entire examined stomach was normal. Biopsies were taken with a cold forceps for Helicobacter pylori testing using CLOtest. The esophagus was normal. Impression: - Normal second portion of the duodenum. - Non-bleeding duodenal ulcer with a flat pigmented spot (Mak Class IIc). Clip was placed. 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 - Normal stomach. Biopsied. - Normal esophagus. [...] PM CDTAssociated Order(s): IP CONSULT TO NEUROSURGERY [facility] Neurosurgery Consult Note CHIEF COMPLAINT Lightheadedness HISTORY [...] Sodium Chloride, 30 mL, intravenous, PRN, StevenE. Karon, Lactated Ringer's (LR) infusion, 100 mL/hr, intravenous, [...] 0.5-20 mL, 0.5-20 mL, intra-catheter, Q8H GINNA, Fern, Pedro Luis E., DO sodium chloride 0.9% flush 0.5-20 mL, 0.5-20 mL, intra-catheter, PRN, Pedro Luis Brantley, DO sodium chloride 0.9% IVPB 0-250 mL, 0-250 mL, intravenous, Once, Pedro Luis Brantley DO, Held at 07/27/23 1900 sodium chloride 0.9% [...] year old male with hx of HTN, MONIAK, thrombocytopenia, hyponatremia, ascending aortic aneurysm with recent [...] of this pleasant man. Chaim Moon PA-C [facility] Neurosurgery Please call neurosurgery PA Chaim Moon at [phone] with any questions/concerns. Cosigned by Javon Calles MD PhD at 07/30/2023 3:14 PM CDT * Parish Harrell PA - 07/27/2023 3:01 PM CDTAssociated Order(s): IP CONSULT TO GASTROENTEROLOGY Gastroenterology Consult [facility] Consult: Mateusz Brantley DO Contact info: - [phone]; After hours: [phone] Referring doctor: Nighat Angeles MD PCP: Radha [...] Medical History: Diagnosis Date Arthritis Arthritis; Comments: [facility] 10/19/2015 - HX OTHER MEDICAL ascending aortic aneurysm; Comments: [facility] 10/19/2015 - Hypertension Hypertension Sleep apnea Sleep [...] at 07/27/2023 3:45 PM CDT * Erin Monk NP - 07/27/2023 2:22 PM CDTAssociated Order(s): IP CONSULT TO CARDIOLOGY [facility] Cardiology [address] [address] Cardiology MD Kali Mckeon, MD Wellington Dugan, MD Parish Monae, MD Kilo Sims, MD Johnny Maher, MD Osmin Barbosa, MD Best Ramirez, MD Nicolas Golden, MD Everardo Briscoe, DO Javon Lopez, MD Rory Dowling, MD Clyde Stovall, [employer] Erin Monk, ALEX Smith, [employer] Cardiology Consult Patient Name: Judi Adam Provider: [...] dehiscence of surgical site. Patient follows with fisher trap, Dr. Reddy. Echocardiogram on 06/21/2023 demonstrated normal [...] HX OTHER MEDICAL ascending aortic aneurysm; Comments: [facility] 10/19/2015 - Hypertension Hypertension Sleep apnea Sleep [...] AM Result Value Ref Range Product code H8413I59 Unit Number [id number] Product Blood Type OPOS Dispense Status ISSUED Product code Q1734O93 Unit Number [id number] Product Blood Type OPOS Dispense Status ISSUED [...] This note was dictated with voice-recognition software, pulverizer tender errors may be present. Erin Monk NP [...] Medical History: Diagnosis Date Arthritis Arthritis; Comments: [facility] 10/19/2015 - HX OTHER MEDICAL ascending aortic aneurysm; Comments: [facility] 10/19/2015 - Hypertension Hypertension Sleep apnea Sleep [...] Triage Vitals Temp Pulse Resp BP SpO2 07/27/23 0758 07/27/23 0758 07/27/23 0758 07/27/23 07507/27/23757 36.6 ??C (97.9 ??F) 121 16 93/67 [...] Course as of 07/27/23 1211 Time: 07/27 0812 Comment: I have evaluated this patient's EKG. [...] due to lightheadedness, poor historian. * Colette Frazier, MAHIN - 07/27/2023 7:52 AM CDT Bed: ED05 Expected date: Expected time: Means of arrival: Comments: EMS 2040 Colette Frazier, MAHIN 07/27/23 075 documented in this encounter Miscellaneous Notes * Plan of Care - Rebecca Peterson - 07/31/2023 3:31 PM CDT [facility] received a consult. Per LUIS Mcgee Patient will be using [facility]. [facility] consult closedand no services set up at this time. * Plan of Care - Carlyn Ruiz RN - 07/31/2023 3:12 PM CDT CM received updates from Luisa Rosas that they will accept Mr Adam back for [facility] at discharge. * Plan of Care [...] - 07/31/2023 12:24 PM CDT CM received [facility] order and resent it to Taylor [...] Service Line Home Health Primary disciplines requested: Fpc Primary disciplines requested: Physical Therapy Secondary disciplines [...] Ruiz RN - 07/30/2023 4:40 PM CDT LUIS Initial Assessment Interview Note Information Obtained From: Patient (07/30/231611) Admission Source: ED Impression: Afib with RVR and anemia Plan Includes: home with family independent recently had Aortic Aneurysm repair at the end of June. Discharged home with Taylor [facility] RN plus therapies wishes to continue them. Primary Source of Transportation: Does the patient need discharge transport arranged?: No (daughter or one of his grandchildren will come and pick him up) (07/30/231611) Health Insurance Coverage: Medicare and [facility] Prescription Coverage: [facility] Pharmacy: [facility] [id number] [place] [address] Primary Care Provider: Radha Lozada MD Prior to Admission: Functional Status: Independent with ADLs Primary Caregiver: Self (Patient recently had an aortic anerysm repaired) Support System: Spouse/Significant Other Home Care Services: Yes (Taylor) Type of Home Care Services: Nurse visit, Home therapies Home care service name and phone number: [facility] Durable Medical Equipment: Home Modification Assessment [...] a week How often do you attend jewish or yazdanism services?: More than 4 times per year Do you belong to any clubs or organizations such as jewish groups, unions, fraternal or athletic groups, or [...] Screening Potential discharge needs include: Home Health: [facility]P, Occupational therapy, Physical therapy (07/30/231611) Dialysis: No [...] Collaboration with patient, MD, direct care nurse, Intensive Care Anaesthetist, and other members of the health care team to assure needed interventions completed. 2. Return patient to optimal level of self-care post discharge. 3. Extractor [employer] will follow for Discharge Planning - interventions [...] Goal: Understanding of discharge needs will improve 07/29/20231724 by Joseph Valera RN Outcome: Progressing 07/29/20231722 by Joseph Valera RN Outcome: Progressing Problem: Lack of Knowledge: Goal: Ability to state ways to decrease the risk of falls will improve 07/29/20231724 by Joseph Valera RN Outcome: Progressing 07/29/20231722 by Joseph Valera RN Outcome: Progressing Problem: Safety: Goal: Will remain free from falls 07/29/2023 172 by Joseph Valera RN Outcome: Progressing 07/29/20231722 by Joseph Valera RN Outcome: Progressing Goal: Will remain free from injury from falls 07/29/2023 172 by Joseph Valera RN Outcome: Progressing 07/29/20231722 by Joseph Valera RN Outcome: Progressing Goal: Will remain free from falls and injury in home environment 07/29/2023 172 by Joseph Valera, MAHIN Outcome: Progressing 07/29/20231722 by Joseph Valera RN [...] will decrease Outcome: Progressing * Plan of Care - Silverio Webber RN - 07/28/2023 11:53 PM CDT Goals: [...] Outcome: Progressing * Plan of Care - Silverio Webber RN - 07/27/2023 10:08 [...] 6:29 AM CDT CBC WITHOUT DIFFERENTIAL Routine 023 6:29 AM CDT PHOSPHORUS Routine 07/28/2023 6:29 [...] LAB TEST Add-On 07/27/2023 2:41 PM CDT HI CRITICAL CARE ILL/INJURED PATIENT INIT 30-74 MIN Routine 07/27/2023 1:31 PM CDT TROPONIN T HIGH-SENSITIVITY 2-HOUR Timed 07/27/2023 12:05 PM CDT PRO B-TYPE NATRIURETIC PEPTIDE Timed 1 12:05 PM CDT TRANSFUSE RED BLOOD CELLS Timed 2022 12:05 PM CDT APTT STAT 07/27/2023 12:05 PM CDT PROTIME-INR STAT 07/27/2023 12:05 PM CDT CBC WITHOUT DIFFERENTIAL STAT 023 12:05 PM CDT TRANSFUSE RED BLOOD CELLS Timed 2022 10:46 AM CDT CTA CHEST ABDOMEN PELVIS ED 023 10:[address] HEAD AND CERVICAL SPINE W O CONTRAST ED 07/27/2023 10:45 AM CDT TROPONIN T HIGH-SENSITIVITY SERIES (BASELINE, 2HR, 4HR, 6HR) STAT 07/27/2023 9:14 AM CDT ADD ON LAB TEST Add-On 07/27/2023 9:14 AM CDT ADD ON LAB TEST Add-On 07/27/2023 9:14 AM CDT ADD ON LAB TEST Add-On 07/27/2023 9:14 AM CDT THYROID FUNCTION CASCADE STAT 023 9:14 AM CDT IRON PROFILE W/ IBC [...] Results * eGFR (07/31/2023 3:22 AM CDT) [facility] eGFR 80 mL/min/1. 73 m2 Comment: Interpretive [...] of Race in Diagnosing Kidney Disease, JASN 2021). The CKD-EPI equation should not be used for patients with unstable renal function and has not been validated in children and those over 70. Current interpretive data was last reviewed 2021. Blood 07/31/2023 3:22 AM CDT 07/31/2023 4:09 AM CDT us Jonn Willis MD LAB BLOOD ORDERABLES Final Re sult Performing Organization Address City/[facility] Co de Phone Number [facility] [address] [facility] [employer] [place], [place] [phone] * Magnesium (07/31/2023 3:22 AM CDT) Pathologist [facility] Magnesium 2.3 1.4 - 2.5 mg/dL Blood 07/31/2023 3:22 AM CDT 07/31/2023 4:09 AM CDT Jonn Willis MD LAB BLOOD ORDERABLES Final Re sult Performing Organization Address [facility] de Phone Number [facility] [address] [facility] [employer] [place], [place] [id number] * (ABNORMAL) Renal function panel (07/31/2023 3:22 AM CDT) Sodium 138 135 - 145 mmol/L Potassium, pl 3.6 3.3 - 4.9 mmol/L [facility] Chloride 105 97 - 110 mmol/L [facility] CO2 26 22 - 32 mmol/L [facility] Anion gap 7 2 - 15 mmol/L [facility] BUN 12 6 - 25 mg/dL [facility] Creatinine 0.97 0.80 - 1.30 mg/dL [facility] Glucose 97 70 - 199 mg/dL [facility] Comment: Interpretive Data Fasting glucose [...] 2022. Calcium 8.1(L) 8.5 - 10.3 mg/dL [facility] Phosphorus, pl 3.8 2.3 - 4.5 mg/dL [facility] Albumin 2.8(L) 3.5 - 5.0 g/dL [facility] Blood 07/31/2023 3:22 AM CDT 07/31/2023 4:09 AM CDT Jonn Willis MD LAB BLOOD ORDERABLES Final Re sult [facility] [address] [place] [address] * (ABNORMAL) CBC without differential (07/31/2023 3:22 AM CDT) WBC 4.4 3.8 - 9.9 K/cumm Hgb 7.6(L) 13.0 - 17.5 g/dL [facility] Comment: Interpretive Data A reference range for this assay has not been established for patients with an unknown legal sex. Please refer to the laboratory test catalog for established sex-specific reference intervals. Current interpretive data was last revised on 2023. Hct 24.6(L) 38.9 - 50.3 % [facility] Comment: Interpretive Data A reference range for this assay has not been established for patients with an unknown legal sex. Please refer to the laboratory test catalog for established sex-specific reference intervals. Current interpretive data was last revised on 2023. Plt 163 150 - 400 K/cumm [facility] MPV 9.1 9.1 - 12.3 fL [facility] RBC 2.50(L) 4.30 - 5.80 M/cumm [facility] Comment: Interpretive Data A reference range for this assay has not been established for patients with an unknown legal sex. Please refer to the laboratory test catalog for established sex-specific reference intervals. Current interpretive data was last revised on 2023. MCV 98.4(H) 81.3 - 96.4 fL [facility] MCH 30.4 27.1 - 33.3 pg [facility] MCHC 30.9(L) 32.3 - 35.7 g/dL [facility] RDW CV 18.9(H) 11.1 - 14.9 % [facility] RDW SD 54.3(H) 35.7 - 48.1 fL [facility] NRBC abs 0.02(H) 0.00 - 0.01 K/cumm [facility] Blood 07/31/2023 3:22 AM CDT 07/31/2023 4:08 AM CDT us Pedro Luis Brantley DO LAB BLOOD ORDERABLES Final Res ult [facility] [address] Department [place] [address] * eGFR (07/30/2023 3:53 AM CDT) eGFR [...] 3:53 AM CDT 07/30/2023 5:09 AM CDT us Pedro Luis Brantley DO LAB BLOOD ORDERABLES Final Res ult [facility] [address] Department of Laboratories [place], [place] [id number] * (ABNORMAL) Basic metabolic panel (07/30/2023 3:53 AM CDT) Sodium 138 135 - 145 mmol/L Potassium, pl 3.5 3.3 - 4.9 mmol/L [facility] Chloride 104 97 - 110 mmol/L [facility] CO2 27 22 - 32 mmol/L [facility] Anion gap 7 2 - 15 mmol/L [facility] BUN 11 6 - 25 mg/dL [facility] Creatinine 0.92 0.80 - 1.30 mg/dL [facility] Glucose 93 70 - 199 mg/dL [facility] Comment: Interpretive Data Fasting glucose [...] 2022. Calcium 8.0(L) 8.5 - 10.3 mg/dL [facility] Blood 07/30/2023 3:53 AM CDT 07/30/2023 5:09 AM CDT us Pedro Luis Brantley DO LAB BLOOD ORDERABLES Final Res ult [facility] [address] Department [place] [address] * (ABNORMAL) CBC without differential (07/30/2023 3:53 AM CDT) [facility] WBC 4.9 3.8 - 9.9 K/cumm Hgb 7.4(L) 13.0 - 17.5 g/dL [facility] Comment: Interpretive Data A reference range for this assay has not been established for patients with an unknown legal sex. Please refer to the laboratory test catalog for established sex-specific reference intervals. Current interpretive data was last revised on 2023. Hct 23.4(L) 38.9 - 50.3 % [facility] Comment: Interpretive Data A reference range for this assay has not been established for patients with an unknown legal sex. Please refer to the laboratory test catalog for established sex-specific reference intervals. Current interpretive data was last revised on 2023. Plt 166 150 - 400 K/cumm [facility] MPV 9.0(L) 9.1 - 12.3 fL [facility] RBC 2.36(L) 4.30 - 5.80 M/cumm [facility] Comment: Interpretive Data A reference range for this assay has not been established for patients with an unknown legal sex. Please refer to the laboratory test catalog for established sex-specific reference intervals. Current interpretive data was last revised on 2023. MCV 99.2(H) 81.3 - 96.4 fL [facility] MCH 31.4 27.1 - 33.3 pg [facility] MCHC 31.6(L) 32.3 - 35.7 g/dL [facility] RDW CV 19.1(H) 11.1 - 14.9 % [facility] RDW SD 53.0(H) 35.7 - 48.1 fL [facility] NRBC abs 0.07(H) 0.00 - 0.01 K/cumm [facility] Blood 07/30/2023 3:53 AM CDT 07/30/2023 5:08 AM CDT Pedro Luis Brantley DO LAB BLOOD ORDERABLES Final Res ult Performing Organization Address [facility] Co de Phone Number [facility] [address] Department [place] [address] * (ABNORMAL) Hemoglobin and hematocrit (07/29/2023 11:44 AM CDT) Hgb 7.9(L) 13.0 - 17.5 g/dL Comment: Interpretive Data A reference range for this assay has not been established for patients with an unknown legal sex. Please refer to the laboratory test catalog for established sex-specific reference intervals. Current interpretive data was last revised on 2023. Hct 25.1(L) 38.9 - 50.3 % [facility] Comment: Interpretive Data A reference range for this assay has not been established for patients with an unknown legal sex. Please refer to the laboratory test catalog for established sex-specific reference intervals. Current interpretive data was last revised on 2023. Blood 07/29/2023 11:4 4 AM CDT 07/29/2023 12:06 PM CDT Result [facility] Mandi Simpson MD LAB BLOOD ORDERABLES Final Resul t Performing Organization Address [facility] Co de Phone Number [facility] [address] Department [place] [place] [address] * POCT H. pylori (Clotest) (07/29/2023 8:50 AM CDT) Pathologist [facility] H Pylori, POC Negative Negative QC Negative conf by Urease Yes Lot Number [id number] Tissue 07/29/2023 8:50 AM CDT Pedro Luis Brantley DO POINT OF CARE TEST ORDERABLES Final Result * eGFR (07/29/2023 2:57 AM CDT) eGFR 90 mL/min/1. 73 m2 Comment: Interpretive [...] LAB BLOOD ORDERABLES Final Res ult [facility] [address] [place] [address] * (ABNORMAL) Basic metabolic panel (07/29/2023 2:57 AM CDT) Sodium 137 135 - 145 mmol/L Potassium, pl 3.5 3.3 - 4.9 mmol/L [facility] Chloride 106 97 - 110 mmol/L [facility] CO2 24 22 - 32 mmol/L [facility] Anion gap 7 2 - 15 mmol/L [facility] BUN 16 6 - 25 mg/dL [facility] Creatinine 0.84 0.80 - 1.30 mg/dL [facility] Glucose 92 70 - 199 mg/dL [facility] Comment: Interpretive Data Fasting glucose [...] 2022. Calcium 7.9(L) 8.5 - 10.3 mg/dL [facility] Blood 07/29/2023 2:57 AM CDT 07/29/2023 4:05 AM CDT us Pedro Luis Brantley DO LAB BLOOD ORDERABLES Final Res ult [facility] [address] Department [place] [address] * (ABNORMAL) CBC without differential (07/29/2023 2:57 AM CDT) [facility] WBC 6.2 3.8 - 9.9 K/cumm Hgb 7.1(L) 13.0 - 17.5 g/dL [facility] Comment: Interpretive Data A reference range for this assay has not been established for patients with an unknown legal sex. Please refer to the laboratory test catalog for established sex-specific reference intervals. Current interpretive data was last revised on 2023. Hct 22.5(L) 38.9 - 50.3 % [facility] Comment: Interpretive Data A reference range for this assay has not been established for patients with an unknown legal sex. Please refer to the laboratory test catalog for established sex-specific reference intervals. Current interpretive data was last revised on 2023. Plt 188 150 - 400 K/cumm [facility] MPV 8.8(L) 9.1 - 12.3 fL [facility] RBC 2.34(L) 4.30 - 5.80 M/cumm [facility] Comment: Interpretive Data A reference range for this assay has not been established for patients with an unknown legal sex. Please refer to the laboratory test catalog for established sex-specific reference intervals. Current interpretive data was last revised on 2023. MCV 96.2 81.3 - 96.4 fL [facility] MCH 30.3 27.1 - 33.3 pg [facility] MCHC 31.6(L) 32.3 - 35.7 g/dL [facility] RDW CV 17.6(H) 11.1 - 14.9 % [facility] RDW SD 51.5(H) 35.7 - 48.1 fL [facility] NRBC abs 0.13(H) 0.00 - 0.01 K/cumm [facility] Blood 07/29/2023 2:57 AM CDT 07/29/2023 4:05 AM CDT us Pedro Luis Brantley DO LAB BLOOD ORDERABLES Final Res ult [facility] [address] Department [place] [address] * (ABNORMAL) Hemoglobin and hematocrit (07/28/2023 6:38 PM CDT) [facility] Hgb 7.6(L) 13.0 - 17.5 g/dL Comment: Interpretive Data A reference range for this assay has not been established for patients with an unknown legal sex. Please refer to the laboratory test catalog for established sex-specific reference intervals. Current interpretive data was last revised on 2023. Hct 23.6(L) 38.9 - 50.3 % [facility] Comment: Interpretive Data A reference range for this assay has not been established for patients with an unknown legal sex. Please refer to the laboratory test catalog for established sex-specific reference intervals. Current interpretive data was last revised on 2023. Blood 07/28/2023 6:38 PM CDT 07/28/2023 6:55 PM CDT us Pedro Luis Brantley DO LAB BLOOD ORDERABLES Final Res ult [facility] [address] Department [place] [address] * CTA Head Neck W WO Contrast [...] Electronically signed by: MARCELL BADILLO us Chaim Johnson Red CARROLL IMG CT PROCEDURES Edit ed Result - Final * EGD (07/28/2023 8:27 AM CDT) Anatomical Region Laterality Modality Other Narrative Procedure Note Pedro Luis Brantley, - 07/28/2023 8:27 AM CDT ENDOSCOPY LAB Patient Name: Judi Adam Procedure Date: 07/28/2023 8:27 AM Admit Type: Inpatient Room: [facility] Date of : 1945 Instrument Name: [id number] [...] one hemostatic clip was successfully placed. 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 There wasno bleeding during, or at the end, of the procedure. The entire examined stomach was normal. Biopsies were taken with acold forceps for Helicobacter pylori testing using CLOtest. The esophagus was normal. Impression: - Normal second portion of the duodenum. - Non-bleeding duodenal ulcer with a flat pigmented spot (Mak Class IIc). Clip was placed. 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 - Normal stomach. Biopsied. - Normal esophagus. [...] by Pedro Luis Brantley D.O. Pedro Luis Bratnley D.O. 07/28/2023 8:56:36 AM Number of Addenda: [...] 6:29 AM CDT 07/28/2023 6:56 AM CDT Parish Sarkar LAB BLOOD ORDERABLES F inal Result Performing Organization Address [facility]/ZIP Co de Phone Number [facility] [address] Department [place] [address] * (ABNORMAL) Basic metabolic panel (07/28/2023 6:29 AM CDT) Pathologist [facility] Sodium 138 135 - 145 mmol/L Potassium, pl 3.9 3.3 - 4.9 mmol/L [facility] Chloride 108 97 - 110 mmol/L [facility] CO2 20(L) 22 - 32 mmol/L [facility] Anion gap 10 2 - 15 mmol/L [facility] BUN 29(H) 6 - 25 mg/dL [facility] Creatinine 0.80 0.80 - 1.30 mg/dL [facility] Glucose 105 70 - 199 mg/dL [facility] Comment: Interpretive Data Fasting glucose [...] 2022. Calcium 8.4(L) 8.5 - 10.3 mg/dL [facility] Blood 07/28/2023 6:29 AM CDT 07/28/2023 6:56 AM CDT Pedro Luis Brantley DO LAB BLOOD ORDERABLES Final Res ult Performing Organization Address [facility]/ZIP Co de Phone Number [facility] [address] Department [place] [address] * (ABNORMAL) CBC without differential (07/28/2023 6:29 AM CDT) [facility] WBC 7.8 3.8 - 9.9 K/cumm Hgb 7.4(L) 13.0 - 17.5 g/dL [facility] Comment: Interpretive Data A reference range for this assay has not been established for patients with an unknown legal sex. Please refer to the laboratory test catalog for established sex-specific reference intervals. Current interpretive data was last revised on 2023. Hct 22.7(L) 38.9 - 50.3 % [facility] Comment: Interpretive Data A reference range for this assay has not been established for patients with an unknown legal sex. Please refer to the laboratory test catalog for established sex-specific reference intervals. Current interpretive data was last revised on 2023. Plt 210 150 - 400 K/cumm [facility] MPV 9.0(L) 9.1 - 12.3 fL [facility] RBC 2.42(L) 4.30 - 5.80 M/cumm [facility] Comment: Interpretive Data A reference range for this assay has not been established for patients with an unknown legal sex. Please refer to the laboratory test catalog for established sex-specific reference intervals. Current interpretive data was last revised on 2023. MCV 93.8 81.3 - 96.4 fL [facility] Comment:MCV delta due to pos sible patient therapy. MCH 30.6 27.1 - 33.3 pg [facility] MCHC 32.6 32.3 - 35.7 g/dL [facility] RDW CV 15.4(H) 11.1 - 14.9 % [facility] RDW SD 49.2(H) 35.7 - 48.1 fL [facility] NRBC abs 0.17(H) 0.00 - 0.01 K/cumm [facility] Blood 07/28/2023 6:29 AM CDT 07/28/2023 6:56 AM CDT us Pedro Luis Brantley DO LAB BLOOD ORDERABLES Final Res ult [facility] [address] Department [place] [address] * Magnesium (07/28/2023 6:29 AM CDT) Pathologist [facility] Magnesium 2.1 1.4 - 2.5 mg/dL Blood 07/28/2023 6:29 AM CDT 07/28/2023 6:56 AM CDT Ebenezer Rosa MD LAB BLOOD ORDERABLES Fin al Result Performing Organization Address City/[facility] Co de Phone Number [facility] [address] [facility] [place] [address] * Phosphorus (07/28/2023 6:29 AM CDT) Pathologist [facility] Phosphorus, pl 2.5 2.3 - 4.5 mg/dL Blood 07/28/2023 6:29 AM CDT 07/28/2023 6:56 AM CDT Ebenezer Rosa MD LAB BLOOD ORDERABLES Fin al Result Performing Organization Address [facility] Co de Phone Number [facility] [address] [facility] [employer] [place] [phone] * Transfuse RBC (07/28/2023 4:26 AM CDT) Blood Avril Douglas MD BLOOD TRANSFUSION ORDERABLES Final Result Performing Organization Address City/[facility]/ZIP Co de Phone Number [facility] [address] [facility] [place] [address] * Transfuse RBC: 1 Units (07/28/2023 4:26 AM CDT) Blood Avril Douglas MD BLOOD TRANSFUSION ORDERABLES Final Result * Prepare RBC: 1 Units (07/28/2023 2:05 AM CDT) Pathologist [facility] Product code [id number] Unit Number [id number] [facility] Product Blood Type OPOS [facility] Dispense Status PRESUMED TRANSFUSED [facility] Blood 07/28/2023 2:05 AM CDT Narrative [facility] - 07/28/2023 10:15 PM CDT Are special requirements needed? (All products are leukoreduced and CMV- safe)- >No Date required:-[id number] LRRBC # of [id number] Reasons:-Hgb <7 g/dL} Avril Douglas MD BLOOD BANK PRODUCT ORDERABLES Final Result Performing Organization Address [facility]/ZIP Co de Phone Number [facility] [address] [facility] [employer] [place], [place] [phone] * Transfuse RBC (07/28/2023 12:32 AM CDT) Blood Pedro Luis Brantley DO BLOOD TRANSFUSION ORDERABLES F inal Result Performing Organization Address City/[facility]/ZIP Co de Phone Number [facility] [address] [facility] [place] [address] * Transfuse RBC: 2 Units (07/28/2023 12:32 AM CDT) Blood Pedro Luis Brantley DO BLOOD TRANSFUSION ORDERABLES E dited Result - Final * (ABNORMAL) Hemoglobin and hematocrit (07/27/2023 11:24 PM CDT) [facility] Hgb 6.9(L) 13.0 - 17.5 g/dL Comment: Interpretive Data A reference range for this assay has not been established for patients with an unknown legal sex. Please refer to the laboratory test catalog for established sex-specific reference intervals. Current interpretive data was last revised on 2023. Hct 22.2(L) 38.9 - 50.3 % [facility] Blood 07/27/2023 11:2 4 PM CDT 07/28/2023 12:37 AM CDT Pedro Luis Brantley DO LAB BLOOD ORDERABLES Final Res ult Performing Organization Address [facility] Co de Phone Number [facility] [address] Department [employer] [place], [place] [id number] * Transfuse RBC (07/27/2023 7:49 PM CDT) Blood Pedro Luis Brantley DO BLOOD TRANSFUSION ORDERABLES F inal Result Performing Organization Address [facility] Co de Phone Number [facility] [address] [facility] [employer] [place], [place] [id number] * Prepare RBC: 2 Units (07/27/2023 5:21 PM CDT) Product code [id number] [facility] Unit Number [id number] [facility] Product Blood Type OPOS [facility] Dispense Status PRESUMED TRANSFUSED [facility] Product code [id number] Unit Number [id number] [facility] Product Blood Type OPOS [facility] Dispense Status PRESUMED TRANSFUSED [facility] Blood 07/27/2023 5:21 PM CDT Narrative [facility] - 07/28/2023 10:15 PM CDT Are special requirements needed? (All products are leukoreduced and CMV- safe)- >No Date required:-20230727 LRRBC # of [id number] Reasons:-Hgb <7 g/dL} Ebenezer Rosa MD BLOOD BANK PRODUCT ORDER EMELYN Final Result Performing Organization Address [facility] Co de Phone Number [facility] [address] [facility] [employer] [place], [place] [id number] * TRANSTHORACIC ECHO (TTE) COMPLETE W DOPPLER/CF W CONTRAST (07/27/2023 5:07 PM CDT) Anatomical Region Laterality Modality Ultrasound 07/27/2023 3:42 PM CDT Narrative 07/28/2023 5:05 AM CDT [facility] [address] [place] [address] ECHOCARDIOGRAM Patient Name: JUDI ADAM L : 6 Study Date: 07/27/2023 3:42:15 PM Gender: M Tech: Location: [id number] Ref.Provider: ERIN MONK Height(Cm): 183 BSA: 2.35 [...] pressure. Electronically Signed By: Parish Monae MD, [facility] 2023-07-28 05:05:41 CDT CC: CC: Procedure Note Parish Monae MD - 07/28/2023 [facility] [address] [place] [address] ECHOCARDIOGRAM Patient Name: JUDI ADAM LPatient ID: [id number] : [id number] Date: 07/27/2023 3:42:15 PM Gender: MAccession #: [id number] Tech: RLLocation: [id number] Ref.Provider: ERIN MONKHeight(Cm): 183 BSA: 2.35Weight(Kg): 108.9 [...] 20.0 - 100.0 ] ms MV Decel Dbhx142.7 [ 104.0 - 258.0 ] ms MVA PHT9.3 [ 2.0 - 4.0 ] ms MV E/A Ratio1.5 TR Peak Vel2.3 [ 1.0 - 2.8 ] m/s TR Peak PG 22mmHg RVSP36.6 [ 10.0 - 36.0 ] mmHg RA Bcjkxqhb42.0 mmHg PV Peak Vel1.4 [ 0.4 - [...] pressure. Electronically Signed By: Parish Monae MD, [facility] 2023-07-28 05:05:41 CDT CC: CC: Erin Cobian MODEL ARTISTS' CV ECHO PROCEDURES Fin al Result * (ABNORMAL) Hemoglobin and hematocrit (07/27/2023 [...] 2023. Hct 18.6(L) 38.9 - 50.3 % [facility] Blood 07/27/2023 4:35 PM CDT 07/27/2023 4:44 PM CDT Parish Sarkar LAB BLOOD ORDERABLES F inal Result [facility] [address] [place] [address] * NT-Pro BNP - Add on lab test (07/27/2023 2:41 PM CDT) Pathologist [facility] Acceptable Yes Blood 07/27/2023 2:41 PM CDT 07/27/2023 2:41 PM CDT Narrative [facility] - 07/27/2023 2:41 PM CDT Name of Test->NT-Pro BNP Erin Cobian NP LAB BLOOD ORDERABLES F inal Result [facility] [address] Department [place] [employer] [place] [address] * Transfuse RBC (07/27/2023 1:56 PM CDT) Blood Lew Garcia MD BLOOD TRANSFUSION ORDE RABLES Final Result [facility] [address] Department of Laboratories [place], [place] [id number] * Transfuse RBC: 2 Units (07/27/2023 1:56 PM CDT) Blood us Lew Garcia MD BLOOD TRANSFUSION ORDE JOEY Final Result * HI CRITICAL CARE ILL/INJURED PATIENT INIT 30-74 MIN [...] Transfuse RBC (07/27/2023 12:08 PM CDT) Blood us Lew Garcia MD BLOOD TRANSFUSION ORDNicole LAYOSTEPHENIE Final Result [facility] [address] [place] [address] * (ABNORMAL) Pro B-type natriuretic peptide (07/27/2023 [...] et.al. Eur Heart J. 2006:27:330-337. 2. Chelsie RW, Paulette CAREY. J. AM Rebeka Cardiol: Cardiovasc Imag. 2009;2: 216- 225. Interpretive Data Last Revised Date: 2018. Blood 07/27/2023 12:0 5 PM CDT 07/27/2023 12:41 PM CDT Nighat Angeles MD LAB BLOOD ORDERABLES Final Result Performing Organization Address [facility] Co de Phone Number [facility] [address] [employer] [place], [place] [phone] * (ABNORMAL) aPTT (07/27/2023 12:05 PM CDT) [...] ORDERABLES F inal Result Performing Organization Address [facility] Co de Phone Number [facility] [address] [place] [address] * (ABNORMAL) Protime-INR (07/27/2023 12:05 PM CDT) PT 13.9(H) 10.3 - 13.7 sec INR 1.22(H) 0.90 - 1.20 [facility] Comment: Interpretive data Oral anticoagulant therapeutic ranges: Venous thromboembolism prophylaxis or treatment: 2.0-3.0 CARDIOLOGY Standard range: 2.0-3.0 High-intensity range: 2.5-3.5 Refer to indication-specific guidelines for appropriate target ranges for prosthetic heart valve replacement. Current interpretive data was last revised on 2019. Blood 07/27/2023 12:0 5 PM CDT 07/27/2023 12:19 PM CDT Lew Garcia MD LAB BLOOD ORDERABLES F inal Result [facility] [address] [place] [address] * (ABNORMAL) CBC without differential (07/27/2023 12:05 PM CDT) Pathologist [facility] WBC 8.0 3.8 - 9.9 K/cumm Hgb 5.7(C) 13.0 - 17.5 g/dL [facility] Comment: Critical result called to [...] 2023. Hct 18.4(L) 38.9 - 50.3 % [facility] Plt 270 150 - 400 K/cumm [facility] MPV 9.0(L) 9.1 - 12.3 fL [facility] RBC 1.78(L) 4.30 - 5.80 M/cumm [facility] Comment: Interpretive Data A reference range for this assay has not been established for patients with an unknown legal sex. Please refer to the laboratory test catalog for established sex-specific reference intervals. Current interpretive data was last revised on 2023. MCV 103.4(H) 81.3 - 96.4 fL [facility] MCH 32.0 27.1 - 33.3 pg [facility] MCHC 31.0(L) 32.3 - 35.7 g/dL [facility] RDW CV 15.3(H) 11.1 - 14.9 % [facility] RDW SD 52.0(H) 35.7 - 48.1 fL [facility] NRBC abs 0.11(H) 0.00 - 0.01 K/cumm [facility] Blood 07/27/2023 12:0 5 PM CDT 07/27/2023 12:19 PM CDT Lew Garcia MD LAB BLOOD ORDERABLES F inal Result Performing Organization Address [facility] Co de Phone Number [facility] [address] [place] [address] * Troponin T high-sensitivity 2-hour (07/27/2023 12:05 PM CDT) Trop T hs 21 <=22 ng/L Comment: Interpretive Data For further hscTnT resources including the diagnostic algorithm and an aid in interpretation, copy and paste this link: https://nrl.testcatalog.org/show/hsTrop Current Interpretive Data last revised 2020. Trop T hs delta 1 ng/L [facility] Trop T hs interp Insignificant [facility] Blood 07/27/2023 12:0 5 PM CDT 07/27/2023 12:16 PM CDT us Lew Garcia MD LAB BLOOD ORDERABLES F inal Result Performing Organization Address [facility] Co de Phone Number [facility] [address] Department [place] [employer] [place] [address] * CTA Chest Abdomen Pelvis (07/27/2023 10:45 [...] it. Electronically signed by: Reyes Vincent M.D. Lew Garcia MD IMG CT PROCEDURES Harriet [...] Result * Folate (07/27/2023 9:14 AM CDT) Folic acid 9.5 >=5.0 ng/mL Blood 07/27/2023 9:14 AM CDT 07/27/2023 9:36 AM CDT us Nighat Angeles MD LAB BLOOD ORDERABLES Final Result [facility] [address] Department [place] [employer] [place] [address] * (ABNORMAL) Iron profile w/ IBC (07/27/2023 9:14 AM CDT) Iron 125 50 - 150 mcg/dL Comment: Interpretive Data A reference range for this assay has not been established for patients with an unknown legal sex. Please refer to the laboratory test catalog for established sex-specific reference intervals. Current interpretive data was last revised on 2023. TIBC 234(L) 250 - 400 mcg/dL [facility] Transferrin saturation 53(H) 20 - 50 % [facility] Blood 07/27/2023 9:14 AM CDT 07/27/2023 9:36 AM CDT Result [facility] Nighat Angeles MD LAB BLOOD ORDERABLES Final Result Performing Organization Address [facility]ZIP Co de Phone Number [facility] [address] [place] [address] * Folate - Add on lab test (07/27/2023 9:14 AM CDT) Acceptable Yes Blood 07/27/2023 9:14 AM CDT 07/27/2023 1:48 PM CDT Narrative [facility] - 07/27/2023 1:48 PM CDT Name of Test->Folate Result [facility] Nighat Angeles MD LAB BLOOD ORDERABLES Final Result Performing Organization Address [facility]ZIP Co de Phone Number [facility] [address] [place] [address] * Vitamin B12 - Add on lab test (07/27/2023 9:14 AM CDT) Acceptable Yes Blood 07/27/2023 9:14 AM CDT 07/27/2023 1:48 PM CDT Narrative [facility] - 07/27/2023 1:48 PM CDT Name of Test->Vitamin B12 Nighat Angeles MD LAB BLOOD ORDERABLES Final Result Performing Organization Address [facility] Co de Phone Number [facility] [address] [facility] [place] [employer] [place] [address] * Iron profile - Add on lab test (07/27/2023 9:14 AM CDT) Acceptable Yes Blood 07/27/2023 9:14 AM CDT 07/27/2023 1:45 PM CDT Narrative [facility] - 07/27/2023 1:45 PM CDT Name of Test->Iron profile Nighat Angeles MD LAB BLOOD ORDERABLES Final Result Performing Organization Address [facility] Co de Phone Number [facility] [address] [facility] [place] [employer] [address] * TSH reflex to free T4 (07/27/2023 9:14 AM CDT) Pathologist [facility] TSH 1.48 0.30 - 4.20 mcIUnit/mL Blood 07/27/2023 9:14 AM CDT 07/27/2023 9:21 AM CDT Lew Garcia MD LAB BLOOD ORDERABLES F inal Result Performing Organization Address [facility] Co de Phone Number [facility] [address] [place] [address] * Phosphorus (07/27/2023 9:14 AM CDT) Phosphorus, pl 2.9 2.3 - 4.5 mg/dL Blood 07/27/2023 9:14 AM CDT 07/27/2023 9:21 AM CDT Lew Garcia MD LAB BLOOD ORDERABLES F inal Result Performing Organization Address [facility]/ZIP Co de Phone Number [facility] [address] [place] [place] [address] * (ABNORMAL) Magnesium (07/27/2023 9:14 AM CDT) Pathologist [facility] Magnesium 2.6(H) 1.4 - 2.5 mg/dL Blood 07/27/2023 9:14 AM CDT 07/27/2023 9:21 AM CDT Lew Garcia MD LAB BLOOD ORDERABLES F inal Result Performing Organization Address [facility] Co de Phone Number [facility] [address] [facility] [place] [employer] [address] * Vitamin B12 (07/27/2023 9:14 AM CDT) Pathologist [facility] Vitamin B12 388 230 - 1,250 pg/mL Blood 07/27/2023 9:14 AM CDT 07/27/2023 9:21 AM CDT Lew Garcia MD LAB BLOOD ORDERABLES F inal Result Performing Organization Address [facility] de Phone Number [facility] [address] [facility] [place] [employer] [address] * Troponin T high-sensitivity series (baseline, 2hr, 4hr, 6hr) (07/27/2023 9:14 AM CDT) Pathologist [facility] Trop T hs 20 <=22 ng/L Comment: Interpretive Data For further hscTnT resources including the diagnostic algorithm and an aid in interpretation, copy and paste this link: https://nrl.testcatalog.org/show/hsTrop Current Interpretive Data last revised 2020. Blood 07/27/2023 9:14 AM CDT 07/27/2023 9:21 AM CDT Lew Garcia MD LAB BLOOD ORDERABLES F inal Result Performing Organization Address [facility] Co de Phone Number [facility] [address] Department [place] [employer] [place] [address] * Type and screen (07/27/2023 9:14 AM CDT) [facility] Chacorta, indirect Negative ABO Rh O Positive [facility] Blood 07/27/2023 9:14 AM CDT 07/27/2023 9:42 AM CDT Narrative [facility] - 07/27/2023 10:24 AM CDT Has the patient had Daratumumab or Isatuximab in the past 6 months?->Unknown Lew Garcia MD LAB BLOOD BANK TEST OR DERABLES Final Result Performing Organization Address [facility]ZIP Co de Phone Number [facility] [address] [facility] [place] [employer] [address] * Prepare RBC: 2 Units (07/27/2023 8:41 AM CDT) [facility] Product code [id number] [facility] Unit Number [id number] [facility] Product Blood Type OPOS [facility] Dispense Status PRESUMED TRANSFUSED [facility] Product code [id number] Unit Number [id number] [facility] Product Blood Type OPOS [facility] Dispense Status PRESUMED TRANSFUSED [facility] Blood 07/27/2023 8:41 AM CDT Narrative [facility] - 07/28/2023 10:15 AM CDT Are special requirements needed? (All products are leukoreduced and CMV- safe)- >No Date required:-20230727 LRRBC # of [id number] Reasons:-Hgb <7 g/dL} us Lew Garcia MD BLOOD BANK PRODUCT ORD ERABLES Final Result Performing Organization Address [facility]ZIP Co de Phone Number [facility] [address] [place] [address] * eGFR (07/27/2023 8:21 AM CDT) eGFR 90 mL/min/1. 73 m2 Comment: Interpretive [...] MD LAB BLOOD ORDERABLES F inal Result [facility] [address] Department [place] [address] * (ABNORMAL) Differential, auto (07/27/2023 8:21 AM CDT) [facility] Neutrophil abs 6.8(H) 1.7 - 6.5 K/cumm Imm gran abs 0.1 0.0 - 0.1 K/cumm [facility] Lymphocyte abs 1.0 0.8 - 3.3 K/cumm [facility] Monocyte abs 0.7 0.2 - 0.8 K/cumm [facility] Eosinophil abs 0.0 0.0 - 0.5 K/cumm [facility] Basophil abs 0.0 0.0 - 0.1 K/cumm [facility] Neutrophil pct 79.0 % [facility] Comment: Interpretive Data Percent cell count reference ranges are not reported, since discordance with absolute values may lead to misinterpretation of CBC data. Current Interpretive Data was last revised on 2018. Imm gran pct 0.9 % [facility] Comment: Interpretive Data Percent cell count reference ranges are not reported, since discordance with absolute values may lead to misinterpretation of CBC data. Current Interpretive Data was last revised on 2018. Lymphocyte pct 11.8 % [facility] Comment: Interpretive Data Percent cell count reference ranges are not reported, since discordance with absolute values may lead to misinterpretation of CBC data. Current Interpretive Data was last revised on 2018. Monocyte pct 7.8 % [facility] Comment: Interpretive Data Percent cell count reference ranges are not reported, since discordance with absolute values may lead to misinterpretation of CBC data. Current Interpretive Data was last revised on 2018. Eosinophil pct 0.2 % [facility] Comment: Interpretive Data Percent cell count reference ranges are not reported, since discordance with absolute values may lead to misinterpretation of CBC data. Current Interpretive Data was last revised on 2018. Basophil pct 0.3 % [facility] Comment: Interpretive Data Percent cell count reference ranges are not reported, since discordance with absolute values may lead to misinterpretation of CBC data. Current Interpretive Data was last revised on 2018. Blood 07/27/2023 8:21 AM CDT 07/27/2023 8:25 AM CDT us eLw Garcia MD LAB BLOOD ORDERABLES F inal Result [facility] [address] Department [place] [address] * (ABNORMAL) Comprehensive metabolic panel (07/27/2023 8:21 AM CDT) Sodium 138 135 - 145 mmol/L Potassium, pl 4.6 3.3 - 4.9 mmol/L [facility] Comment:Hemolyzed; potassium value may be falsely elevated by as much as 0.6 - 1.0 mmol/L. Suggest redraw and reanalysis Chloride 105 97 - 110 mmol/L [facility] CO2 19(L) 22 - 32 mmol/L [facility] Anion gap 14 2 - 15 mmol/L [facility] BUN 33(H) 6 - 25 mg/dL [facility] Creatinine 0.85 0.80 - 1.30 mg/dL [facility] Glucose 136 70 - 199 mg/dL [facility] Comment: Interpretive Data Fasting glucose [...] 2022. Calcium 8.5 8.5 - 10.3 mg/dL [facility] Bilirubin, total 0.5 0.1 - 1.2 mg/dL [facility] Protein, pl 5.8(L) 6.5 - 8.5 g/dL [facility] Albumin 3.1(L) 3.5 - 5.0 g/dL [facility] Alk phos 61 40 - 130 Units/L [facility] ALT 31 7 - 55 Units/L [facility] Comment:Moderately Hemolyzed Specimen AST 46 10 - 50 Units/L [facility] Comment:Moderately Hemolyzed Specimen Blood 07/27/2023 8:21 AM CDT 07/27/2023 8:25 AM CDT Lew Garcia MD LAB BLOOD ORDERABLES F inal Result [facility] [address] [place] [address] * (ABNORMAL) CBC with auto differential (07/27/2023 8:21 AM CDT) WBC 8.7 3.8 - 9.9 K/cumm Hgb 5.5(C) 13.0 - 17.5 g/dL [facility] Comment: Critical result called to [...] 2023. Hct 17.6(L) 38.9 - 50.3 % [facility] Plt 315 150 - 400 K/cumm [facility] MPV 9.1 9.1 - 12.3 fL [facility] RBC 1.73(L) 4.30 - 5.80 M/cumm [facility] Comment: Interpretive Data A reference range for this assay has not been established for patients with an unknown legal sex. Please refer to the laboratory test catalog for established sex-specific reference intervals. Current interpretive data was last revised on 2023. MCV 101.7(H) 81.3 - 96.4 fL [facility] MCH 31.8 27.1 - 33.3 pg [facility] MCHC 31.3(L) 32.3 - 35.7 g/dL [facility] RDW CV 14.9 11.1 - 14.9 % [facility] RDW SD 50.2(H) 35.7 - 48.1 fL [facility] NRBC abs 0.11(H) 0.00 - 0.01 K/cumm [facility] Blood 07/27/2023 8:21 AM CDT 07/27/2023 8:25 AM CDT us Lew Garcia MD LAB BLOOD ORDERABLES F inal Result [facility] [address] Department [place] [address] * ECG 12 lead (07/27/2023 8:00 AM CDT) 07/27/2023 8:00 AM CDT Narrative [facility] - 07/27/2023 10:50 AM CDT Vent Rate: 122 bpm RR Interval: 489 msec HI Interval: 0 msec QRS Duration: 110 msec QT Interval: 371 msec QTC Interval: 444 msec P-R-T Julian: 0 - -37 - 71 degrees IMPRESSION: ATRIAL FIBRILLATION WITH RAPID VENTRICULAR RESPONSE LEFT AXIS DEVIATION NONSPECIFIC ST \T\ T-WAVE ABNORMALITY ABNORMAL ECG Electronically Signed By: Javon Lopez MD [facility] us Lew Garcia MD ECG ORDERABLES Final Result [facility] documented in this encounter Visit Diagnoses Diagnosis [...] (BMI) of 31.0 to 31.9 in adult documented in this encounter Admitting Diagnoses Diagnosis [...] Given 07/29/2023 8:28 AM CDT 40 mg ioversoL (OPTIRAY 350) syringe 125 mL 125 mL, intravenous, Once in imaging, contrast, Starting on Sun07/27/23 at 1012, For 1 dose Contrast Given 07/27/2023 10:38 AM CDT 120 mL ioversoL (OPTIRAY 350) syringe 75 mL 75 mL, intravenous, Once in imaging, contrast, Starting on 07/28/23 at 1534, For 1 dose Contrast Given 07/28/2023 3:37 PM CDT 70 mL ioversoL (OPTIRAY 350) syringe 75 mL 75 mL, intravenous, Once in imaging, contrast, Starting on 07/28/23 at 1542, For 1 dose Contrast Given 07/28/2023 3:42 PM CDT 70 mL Lactated Ringer's (LR) infusion 100 mL/hr, intravenous, Continuous, Starting on Sun07/27/23 at 1645, For 1 day Restarted 07/28/2023 8:53 AM CDT Restarted 07/28/2023 8:40 AM CDT 50 mL/hr New Bag 07/27/2023 11:27 PM CDT 100 mL/hr 100 mL/hr metoprolol tartrate (LOPRESSOR) immediate release tablet 25 [...] 8:24 AM CDT 40 mg 300 mL/hr perflutren protein-a (OPTISON) 3 mL in sodium chloride 0.9% 8 mL syringe 1-8 mL, intravenous, Once in imaging, contrast, Starting on Sun07/27/23 at 1707, For 1 dose, Intra-Procedure (CV) Contrast Given 07/27/2023 5:07 PM CDT 6 mL sodium chloride 0.9% bolus 500 mL 500 mL, intravenous, Once, On Sun07/27/23 at 0821, For 1 dose New Bag 07/27/2023 8:24 AM CDT 500 mL sodium chloride 0.9% flush 0.5-20 mL [...] 40 mg, oral, Daily, First dose on 10/13/23 at 1615 0828 (Given - Provider: Joseph Valera, MAHIN) 0826 (Given - Provider: Farideh Diehl, MAHIN) 0841 (Given - Provider: Phoebe Collazo, MAHIN) metoprolol tartrate (LOPRESSOR) immediate release tablet 25 mg 25 mg, oral, 2 times daily, First dose on Sun07/27/23 at 1545 0828 (Given - Provider: Joseph Valera RN)2014 (Given - Provider: Deanna Alexander RN) 08 (Given - Provider: Farideh Diehl, MAHIN)1948 (Given - Provider: Deanna Alexander, MAHIN) 0841 (Given - Provider: Phoebe Collazo, [...] GI Bleed 0827 (Given - Provider: Joseph Valera, MAHIN)2013 (Given - Provider: Deanna Alexander RN) 08 [...] (Due)2024 (Given - Provider: Deanna Alexander RN) 040 (Not Given - Provider: Deanna Alexander RN - Reason: Other)171 (Not Given - Provider: Farideh Diehl RN [...] Count Last Ordered Date First Ordered Date sodium chloride 0.9% IVPB 0-250 mL 3 202207/27/2023 Carrier Fluids for Secondary Infusion - 0.9% Sodium Chloride 1 07/27/2023 Lactated Ringer's (LR) bolus 1,000 mL 1 Lactated Ringer's (LR) infusion 1 ondansetron (ZOFRAN) injection 4 mg 1 07/27 ondansetron ODT (ZOFRAN-ODT) disintegrating tablet 4 mg 1 07/27/2023 sodium chloride 0.9% flush 0.5-20 mL 1 07/15 Diet Count Last Ordered Date First [...] 07/27/2023 documented in this encounter Care Teams Graduate Intern Relationship Specialty Start Date End Date Radha Lozada MD [facility] [place] [address] PCP - General Family Medicine 06/25/23 04/29/24 Kali Reddy MD Consulting Physician Cardiology 05/19/19 Keaton Lynn MD [address] [facility] [address] [place] [address] Consulting Physician Cardiothoracic Surgery 06/07/23 documented as of this encounter
--- OUTSIDE RECORDS SUMMARY | 2024-09-29 22:10 | XMS_ITS | Encounter Summary ---
Author Organization [facility] Address [address] [place] [address] Care Team Providers Care Fiber Product Cutting Machine Operator Name Role Phone Noemi Willis NP Primary Care Provider [phone] Kali Reddy MD Unavailable [phone] Reason for Visit * Reason Onset Date Comments overdue result 07/12/2022 Encounter Details Date Type Department Care Team (Late st Contact Info) Description 07/12/2022 Telephone [facility] Cardiology [address] [place] [address] Kali Reddy MD [facility] [facility] [address] [place] [address] overdue result Social History Tobacco Use Types Packs/Day Years Used Date Smoking Tobacco: Never Smokeless Tobacco: Never Alcohol Use Standard Drinks/Week Comments Yes 0 (1 standard drink = 0.6 oz pur e alcohol) Socially Sex and Gender Information Value Date Recorded Sex Assigned at Not on file Legal Sex Male 12:03 PM 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 documented in this encounter Plan of Treatment Not on file documented as of this encounter Visit Diagnoses Not on filedocumented in this encounter Care Teams Fiber Product Cutting Machine Operator Relationship Specialty Start Date End Date Noemi Willis NP PCP - General 06/19/18 06/24/23 Kali Reddy MD Consulting Physician Cardiology 05/19/19 documented as of this encounter
--- OUTSIDE RECORDS SUMMARY | 2024-09-29 22:10 | XMS_ITS | Encounter Summary ---
Author Organization [facility] Healthcare Address [address] [place] [address] Care Team Providers Care Time Piece Repairer Name Role Phone Emelina Khan MD Primary Care Provider [phone] Reason for Referral * MRI/CAT/PET Scan (Routine) - Closed Specialty Diagnoses / Procedures Referred By Contac t Referred To Contact Radiology Diagnoses Thoracic aortic aneurysm without rupture (HCC) Procedures CTA Chest W WO Contrast Kali Reddy MD Phone: tel: fax: Referral ID Status Reason Start Date Expiration Date Visits Re quested Visits Authorized [id number] Closed 05/01/2017 10/28/2017 1 1 Encounter Details Date Type Department Care Team (Latest Contact Info) Description 05/24/2017 7:57 AM CDT - 05/24/2017 11:59 PM CDT Hospital Encounter [facility] INTERIM [phone] Kali Reddy MD [address] [facility] [address] [place] [address] Thoracic aortic aneurysm without rupture (CMS/HCC) Discharge Disposition: Discharge to home or self care Social History Tobacco Use Types Packs/Day Years Used Date Smoking Tobacco: Never Smokeless Tobacco: Never Alcohol Use Standard Drinks/Week Comments Yes 0 (1 standard drink = 0.6 oz pur e alcohol) Socially Sex and Gender Information Value Date Recorded Sex Assigned at Not on file Legal Sex Male 12:03 PM RECEP Gender Identity Not on file Sexual Orientation Not on file documented as of this encounter Medications at Time of Discharge aspirin 81 mg tablet TAKE ONE TABLET BY MOUTH ONCE DAILY 90 tablet 05/03/2017 07/20/2017 atorvastatin (LIPITOR) 20 mg tablet take 1 tablet by oral route every day 90 4 05/02/2016 02/21/2018 losartan (COZAAR) 25 mg tablet TAKE ONE TABLET BY MOUTH ONCE DAILY 90 tablet 3 05/23/2017 05/21/2018 metoprolol XL (TOPROL-XL) 25 mg 24 hr tablet take 1 tablet by oral route every day 90 4 11/02/2015 07/20/2017 documented as of this encounter Discharge Disposition Disposition Code Departure Means Destination Discharge to home or self care documented in this encounter Plan of Treatment Not on file documented as of this encounter Procedures Procedure Name Priority Date/Time Associated Diagnosis Comments CTA CHEST W WO CONTRAST Schedule Routine, Read Routine (OP Routine) 05/24/2017 2:07 PM CDT Thoracic aortic aneurysm without rupture (CMS/HCC) documented in this encounter Results * CTA Chest W WO Contrast (05/24/2017 2:07 PM CDT) Anatomical Region Laterality Modality Chest N/A Computed Tomogra phy 05/24/2017 2:07 PM CDT Narrative 05/24/2017 2:[address] angiography chest without and with IV contrast, 05/24/2017 HISTORY: Ascending thoracic aortic aneurysm without rupture, gated study COMPARISON: 11/23/2016 Contrast: 97 mL Optiray 350 Acquisition and 3D reconstructed images were reviewed, provided by the [employer], performed on a separate dedicated workstation. Precontrast, there are some calcified mediastinal lymph nodes seen. There is some pleural or pericardial calcification over the proximal left ventricle unchanged. Gated postcontrast images were performed demonstrating no aortic dissection or ulcerated plaque. Vascular findings: Sinus of Valsalva: 4.4 x 4.3 x 4.3 cm. Sinotubular junction: 4.6 x 4.4 cm. Maximum ascending aorta: 4.6 x 4.5 cm. Mid arch: 3.6 x 3.7 cm. (Innominate, left common and left subclavian artery origins are patent). Proximal descending aorta: 3.3 x 3.1 cm. Mid descending aorta: 3 x 3 cm. Maximum descending aorta: 3 x 3 cm. Distal aorta at diaphragm: 3 x 3 cm. Celiac axis: Patent. Nonvascular findings: Calcified pleural plaques are present without pleural effusion or suspicious pulmonary nodule. IMPRESSION: Stable ascending thoracic aortic aneurysm without dissection, ulcerated plaque, mediastinal hematoma or other acute process. Calcified pleural plaques. ??No new abnormality. Electronically signed by: Jarvis Poole M.D. Radiologist: JARVIS POOLE ?? Attending: ??KALI REDDY Requesting: KALI REDDY Requesting Fax: ?? Requesting ID: [id number] Attending Fax: ?? Attending ID: ?? [id number] Completed Time: ?? 05/24/2017 09:07 AM Dictated Time: ?N/A Transcribed Time: 05/24/2017 12:06 AM Signed by: ?JARVIS POOLE ?? on 05/24/2017 12:06 AM Report To 1 ID: Report To 1 Name: , Report To 1 FAX: Report To 2 ID: Report To 2 Name: , Report To 2 FAX: Report To 3 ID: Report To 3 Name: , Report To 3 FAX: NextGen Order #: [id number] Procedure Note Miscellaneous, Not In File / Provider, MD Sandra - 05/24/2017 CT angiography chest without and with IV contrast, 05/24/2017 HISTORY: Ascending thoracic aortic aneurysm without rupture, gated study COMPARISON: 11/23/2016 Contrast: 97 mL Optiray 350 Acquisition and 3D reconstructed images were reviewed, provided by the [employer], performed on a separate dedicated workstation. Precontrast, there are some calcified mediastinal lymph nodes seen. There is some pleural or pericardial calcification over the proximal left ventricle unchanged. Gated postcontrast images were performed demonstrating no aortic dissection or ulcerated plaque. Vascular findings: Sinus of Valsalva: 4.4 x 4.3 x 4.3 cm. Sinotubular junction: 4.6 x 4.4 cm. Maximum ascending aorta: 4.6 x 4.5 cm. Mid arch: 3.6 x 3.7 cm. (Innominate, left common and left subclavian artery origins are patent). Proximal descending aorta: 3.3 x 3.1 cm. Mid descending aorta: 3 x 3 cm. Maximum descending aorta: 3 x 3 cm. Distal aorta at diaphragm: 3 x 3 cm. Celiac axis: Patent. Nonvascular findings: Calcified pleural plaques are present without pleural effusion or suspicious pulmonary nodule. IMPRESSION: Stable ascending thoracic aortic aneurysm without dissection, ulcerated plaque, mediastinal hematoma or other acute process. Calcified pleural plaques. No new abnormality. Electronically signed by: Jarvis Poole M.D. Radiologist: JARVIS POOLE Attending: KALI REDDY Requesting: KALI REDDY Requesting Requesting ID: [id number] Attending Attending ID: [id number] Completed Time: 05/24/2017 09:07 AM Dictated Time: N/A Transcribed Time: 05/24/2017 12:06 AM Signed by: JARVIS POOLE on 05/24/2017 12:06 AM Report To 1 ID: Report To 1 Name: , Report To 1 FAX: Report To 2 ID: Report To 2 Name: , Report To 2 FAX: Report To 3 ID: Report To 3 Name: , Report To 3 FAX: NextGen Order #: [id number] Kali Reddy MD IMG CT PROCEDURES Final Re sult documented in this encounter Visit Diagnoses Diagnosis Thoracic aortic aneurysm without rupture (HCC) documented in this encounter Care Teams Time Piece Repairer Relationship Specialty Start Date End Date Emelina Khan MD [address] [address] PCP - General 11/23/16 06/18/18 documented as of this encounter
--- OUTSIDE RECORDS SUMMARY | 2024-09-29 22:10 | XMS_ITS | Encounter Summary ---
Author Organization [facility] Address [address] [place] [address] Care Team Providers Care Security Analyst Name Role Phone Noemi Willis NP Primary Care Provider Kali Reddy MD Unavailable [phone] Reason for Referral * MRI/CAT/PET Scan (Routine) - Closed Specialty Diagnoses / Procedures Referred By Contac t Referred To Contact Radiology Diagnoses Aneurysm of ascending aorta without rupture (HCC) Procedures CTA Chest W WO Contrast CTA Chest W Contrast Kali Reddy MD [address] [place] [address] Phone: tel: fax: [facility] [address] [place] [address] Referral ID Status Reason Start Date Expiration Date Visits Re quested Visits Authorized [id number] Closed 06/06/2023 07/05/2024 1 1 * Consultation (Routine) - Closed Specialty Diagnoses / Procedures Referred By Contcristiano t Referred To Contact Cardiothoracic Surgery Diagnoses Aneurysm of ascending aorta without rupture (HCC) Kali Reddy MD [address] [place] [address] Phone: tel: fax: Keaton Mcgregor MD [address] [place] [address] Phone: tel: fax: Referral ID Status Reason Start Date Expiration Date V isits Requested Visits Authorized [id number] Closed Specialty Services Required 06/06/2023 07/05/2024 1 1 Question Answer Please select the performing region: [facility] [[id number]] Please select the performing department: [facility] [[id number]] To provider: KEATON MCGREGOR [[id number]] # of visits: 1 Reason for Visit * Reason Comments pure hypercholesterolemia Encounter Details Date Type Department Care Team (Late st Contact Info) Description 06/06/2023 10:15 AM CDT Office Visit [facility] Cardiology [address] [place] [id number] Kali Reddy MD [facility] [facility] [address] [place] [address] Need for lipid screening (Primary Dx); Aneurysm of ascending aorta without rupture (HCC) Social History Tobacco Use Types Packs/Day Years Used Date Smoking Tobacco: Never Smokeless Tobacco: Never Alcohol Use Standard Drinks/Week Comments Yes 0 (1 standard drink = 0.6 oz pur e alcohol) Socially Sex and Gender Information Value Date Recorded Sex Assigned at Not on file 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 Gender Identity Not on file Sexual Orientation Not on file documented as of this encounter Last Filed Vital Signs Vital Sign Reading Time Taken Comments Blood Pressure 138/70 06/06/2023 10:19 AM CDT Pulse 76 06/06/2023 10:19 AM CDT Temperature - - Respiratory Rate - - Oxygen Saturation 99% 06/06/2023 10:19 AM CDT Inhaled Oxygen Concentration - - Weight 110.2 kg (243 lb) 06/06/2023 10:19 AM CDT Height 182.9 cm (6' 0.01 ) 06/06/2023 10:19 AM C DT Body Mass Index 32.95 06/06/2023 10:19 AM CDT documented in this encounter Ordered Prescriptions Prescription Sig Dispense Quantity Refills Last Filled Start Date End Date NIFEdipine (NIFEdipine CC) 30 mg 24 hr tablet Take 1 tablet (30 mg total) by mouth daily 90 tablet 3 06/06/2023 07/14/2023 documented in this encounter Progress Notes * Kali Reddy MD - 06/06/2023 10:15 AM CDT Images from the original note were not included. [facility] Cardiology [address], [place] [address] Cardiology Yariel Hills, MD Kali Reddy, MD Wellington Dugan, MD Parish Monae, MD Kilo Sims, MD Johnny Maher, MD Osmin Barbosa, MD Nicolas Golden, MD Best Ramirez, MD Javon Lopez, MD Rory Dowling, MD Beth Smith, COTTON FEEDER Erin Monk, COTTON FEEDER Crystal Pipkins, COTTON FEEDER Patient Name: Omar Adam Provider: Kali Reddy MD : 1945 Date of Service: 06/06/2023 Referring: Lazaro TESTING/DATA: Asc Ao aneurysm of 5 cm per OSH read at end of 2014. Has grown 1 cm in 4 years. Cardiac catheterization 08/2015: Nonobstructive coronary artery disease. CMR 11/2015: Normal biventricular function. Trileaflet aortic valve. Chest MRA 2016: Compromised exam. Ascending aorta 5.2 cm Chest [...] Ao, stable to minimal increase in size. HISTORY OF PRESENT ILLNESS: This note was dictated with voice-recognition software, regional vice president surgical sales errors may be present. Omar Adam is a very pleasant 77 y.o. male with a history which includes thoracic aortic aneurysm (he has elected for chronic CT scans, which he would like to do annually, rather than MRA becauseof some claustrophobia) who returns to clinic. When I saw him last he was doing well. I put him back on atorvastatin and I switched him from metoprolol to carvedilol for better blood pressure control. I ordered a chest CTA to be performed one year later. It was performed earlier today. This is his annual follow-up appointment. He returns to clinic feeling well. No shortness of breath or chest discomfort. He was previously having some intermittent lightheadedness which he attributed to one of his medications but this has not been happening of late. ALLERGY Patient has no known allergies. MEDICATIONS Outpatient Encounter Medications as of 06/06/2023 Medication Sig Dispense Refill atorvastatin (LIPITOR) 40 mg tablet Take 1 tablet by mouth once daily 90 tablet 0 carvediloL (COREG) 25 mg tablet TAKE 1 TABLET BY MOUTH TWICE DAILY WITH MEALS 180 tablet 0 losartan (COZAAR) 100 mg tablet Take 1 tablet by mouth once daily 90 tablet 3 Facility-Administered Encounter Medications as of 06/06/2023 Medication Dose Route Frequency Provider Last Rate Last Admin [COMPLETED] ioversoL (OPTIRAY 320) intravenous syringe 100 mL 100 mL intravenous Once in imaging Kali Reddy MD 93 mL at 06/06/23 0956 PHYSICAL EXAM: BP 138/70 Pulse 76 Ht 182.9 cm (6' 0.01 ) Wt 110.2 kg (243 lb) SpO2 99% BMI 32.95 kg/m?? General: No apparent distress. Neck: JVP is normal. Respiratory: Clear to auscultation bilaterally with good air movement. Cardiac: Regular rate and rhythm. No murmurs, gallops, rubs. Soft heart sounds. Vascular: 2+ pulses. Extremities: No lower extremity edema. Psychiatric: Appropriate affect and interaction. ASSESSMENT & PLAN: Ascending aortic aneurysm CT scan report from today is pending. I personally reviewed the study though and it seems like his ascending aorta is pretty stable in size but remains over 5.0 cm in cross-sectional dimension. We discussed the updated ACC guidelines which now favor proceeding to aortic aneurysm repair at 5.0 cm and above. I recommended that we proceed with aortic repair at this point. Risks of aortic repair include myocardial infarction, stroke and amongst others. We discussed this at length and it sounded like he was willing to meet with Dr. Mcgregor but was undecided about proceeding with surgery. I have referred him to Dr. Mcgregor. If he is not proceeding to repair than his blood pressure is suboptimalso I have started nifedipine 30 mg daily. Continue carvedilol and losartan. I have ordered a CTA will performed next year in case he does not proceed to aortic repair. I discussed this case with . Pure hypercholesterolemia Continue atorvastatin. The ASCVD Risk score (Curry DK, et al., 2019) failed to calculate for the following reasons: Cannot find a previous HDL lab The valid total cholesterol range is 130 to 320 mg/dL Will set a failsafe follow-up appointment for one year from now. Kali Reddy MD documented in this encounter Plan of Treatment Scheduled Referrals Name Type Priority Associated Diagnoses Order Schedule Ambulatory referral to Cardiothoracic Surgery Outpatient Referral Routine Aneurysm of ascending aorta without rupture (HCC) 1 Occurrences starting 06/06/2023 until 12/07/2023 documented as of this encounter Procedures Procedure Name Priority Date/Time Associated Diagnosis Comments POCT LIPID PANEL Routine 06/06/2023 10:4 3 AM CDT Need for lipid screening documented in this encounter Results * CTA [...] MD IMG CT PROCEDURES Final Re sult * POCT lipid panel (06/06/2023 10:43 AM CDT) Cholesterol, POC 106 mg/dL HDL, POC 34 mg/dL Triglycerides, POC 103 mg/dL LDL Cholesterol POC 51 mg/dL Chol/HDL Ratio, POC 3.1 Non-HDL Cholesterol, POC 72 mg/dL Cholesterol Total, POC 106 mg/dL Capillary blood 06/06/2023 1 0:43 AM CDT Kali Reddy MD POINT OF CARE TEST ORDERAB LES Final Result documented in this encounter Visit Diagnoses Diagnosis Need for lipid screening- Primary Screening for lipoid disorders Aneurysm of ascending aorta without rupture (HCC) Aneurysm of ascending aorta without rupture (HCC) documented in this encounter Care Teams Security Analyst Relationship Specialty Start Date End Date Noemi Willis NP PCP - General 06/19/18 06/24/23 Kali Reddy MD Consulting Physician Cardiology 05/19/19 documented as of this encounter
--- OUTSIDE RECORDS SUMMARY | 2024-09-29 22:10 | XMS_ITS | Encounter Summary ---
Author Organization [facility] Healthcare Address [address] [place] [address] Care Team Providers Care Sash Clamp Operator Name Role Phone Noemi Willis NP Primary Care Provider [phone] Kali Reddy MD Unavailable Keaton Lynn MD Unavailable [phone] Radha Lozada MD Primary Care Provider [phone] Gabby Li NP Primary Care Provider [phone] Encounter Details Date Type Department Care Team (Late st Contact Info) Description 06/07/2021 Telephone [facility] - [facility] [address] [place] [address] Transcribed Order, Provider Social History Tobacco Use Types Packs/Day Years Used Date Smoking Tobacco: Never Smokeless Tobacco: Never Alcohol Use Standard Drinks/Week Comments Yes 0 (1 standard drink = 0.6 oz pur e alcohol) Socially Sex and Gender Information Value Date Recorded Sex Assigned at Not on file 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 Gender Identity Not on file Sexual Orientation Not on file documented as of this encounter Plan of Treatment Not on file documented as of this encounter Visit Diagnoses Not on filedocumented in this encounter Care Teams Sash Clamp Operator Relationship Specialty Start Date End Date Noemi Willis NP PCP - General 06/19/18 06/24/23 Radha Lozada MD [facility] [place] [address] PCP - General Family Medicine 06/25/23 04/29/24 Gabby Li NP [address] [address] PCP - General Family Medicine 04/30/24 Kali Reddy MD Consulting Physician Cardiology 05/19/19 Keaton Lynn MD [address] [facility] [address] [facility] [address] [place] [address] Consulting Physician Cardiothoracic Surgery 06/07/23 documented as of this encounter
--- OUTSIDE RECORDS SUMMARY | 2024-09-29 22:10 | XMS_ITS | Encounter Summary ---
Author Organization [facility] Address [address] [place] [address] Care Team Providers Care Wildlife Biology Technician Name Role Phone Noemi Willis NP Primary Care Provider [phone] Kali Reddy MD Unavailable Reason for Visit * Reason Onset Date Comments Test Results 06/09/2021 Encounter Details Date Type Department Care Team (Late st Contact Info) Description 06/09/2021 Telephone [facility] Cardiology [address] [place] [address] Kali Reddy MD [facility] [facility] [address] [place] [address] Test Results Social History Tobacco Use Types Packs/Day Years Used Date Smoking Tobacco: Never Smokeless Tobacco: Never Alcohol Use Standard Drinks/Week Comments Yes 0 (1 standard drink = 0.6 oz pur e alcohol) Socially Sex and Gender Information Value Date Recorded Sex Assigned at Not on file 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 Advised pt to call back with any additional questions. * Telephone Encounter - Kellee Lyle - 06/09/2021 8:22 AM CDT ----- Message from Kali Reddy MD sent at 06/08/2021 5:06 PM CDT ----- Call the patient to inform that this study looks good. documented in this encounter Plan of Treatment Not on file documented as of this encounter Visit Diagnoses Not on filedocumented in this encounter Care Teams Wildlife Biology Technician Relationship Specialty Start Date End Date Noemi Willis NP PCP - General 06/19/18 06/24/23 Kali Reddy MD Consulting Physician Cardiology 05/19/19 documented as of this encounter
--- OUTSIDE RECORDS SUMMARY | 2024-09-29 22:10 | XMS_ITS | Encounter Summary ---
Author Organization [facility] Facility Care Team Providers Care Realty Loan Specialist Name Role Phone Emelina Khan MD Primary Care Provider [phone] Encounter Details Date Type Department Care Team (Latest Contact Info) Description 11/23/2016 8:48 AM YOUTH SPECIALIST - 11/23/2016 11:59 PM YOUTH SPECIALIST Hospital Encounter [facility] Kali Reddy MD [address] [facility] [address] [place] [address] Thoracic aortic aneurysm without rupture (CMS/HCC); Other specified pleural conditions; Contact with and (suspected) exposure to asbestos Social History Tobacco Use Types Packs/Day Years Used Date Smoking Tobacco: Never Assessed Sex and Gender Information Value Date Recorded Sex Assigned at Not on file 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 Gender Identity Not on file Sexual Orientation Not on file documented as of this encounter Medications at Time of Discharge aspirin 81 mg tablet take 1 tablet by oral route every day 90 4 05/02/2016 05/03/2017 atorvastatin (LIPITOR) 20 mg tablet take 1 tablet by oral route every day 90 4 05/02/2016 02/21/2018 losartan (COZAAR) 25 mg tablet take 1 tablet by oral route every day 90 4 11/02/2015 05/03/2017 metoprolol XL (TOPROL-XL) 25 mg 24 hr tablet take 1 tablet by oral route every day 90 4 11/02/2015 07/20/2017 documented as of this encounter Plan of Treatment Not on file documented as of this encounter Procedures Procedure Name Priority Date/Time Associated Diagnosis Comments CTA CHEST W WO CONTRAST Routine 11/23/2016 10:45 AM YOUTH SPECIALIST documented in this encounter Results * CTA Chest W WO Contrast (11/23/2016 10:45 AM YOUTH SPECIALIST) Anatomical Region Laterality Modality Chest N/A Computed Tomogra phy 11/23/2016 10:4 5 AM YOUTH SPECIALIST Narrative 11/23/2016 2:[address] angiography of the chest with and without contrast HISTORY: Ascending thoracic aortic aneurysm. TECHNIQUE: Transaxial gated helical imaging was performed through the chest before and during intravenous administration of 97 mL of Optiray 350. ??3 mm precontrast images were reconstructed along with one and 3 mm arterial phase images. ??Additionally, the raw 2-dimensional transaxial imaging data was transferred to a 3-D workstation for processing/review. CT angiogram findings: The aorta measures 4.1 x 4.1 cm in transverse dimension at the sinuses of Valsalva, 4.5 x 4.5 cm at the sinotubular junction, and demonstrates a maximum transverse dimensions of 4.9 x 5.1 cm in the ascending thoracic aorta. ??This is not significantly changed from 5.2 cm on the previous MR examination of 05/24/2016. The aorta tapers to 3.5 x 3.6 cm at the level of the mid arch, 3.5 x 3.6 cm at the proximal descending thoracic aorta, 3.4 x 3.4 cm in the mid descending thoracic aorta, and 3.0 x 3.0 cm at the diaphragmatic hiatus. ??There is no evidence of dissection. ??The great vessels arise unremarkably from the aortic arch without stenoses. ??The celiac axis arises unremarkably from the proximal abdominal aorta without a stenosis. ??The precontrast images demonstrate minimal calcific atherosclerotic plaque involving the coronary arteries. IMPRESSION: 1. ??Aneurysmal dilatation of the ascending thoracic aorta with a maximum transverse diameter of 5.1 cm. ??Full details are above. 2. ??No evidence of dissection. 3. ??The great vessels arise normally from the aortic arch without stenoses. ??The celiac axis arises normally from the proximal abdominal aorta and also demonstrates no stenosis. 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 ??There are no pleural effusions. ??The lungs are clear. ??There are no enlarged hilar or mediastinal lymph nodes evident. ??Images through the upper abdomen are unremarkable. CT thorax impression: 1. ??Asbestos related pleural disease. 2. ??Otherwise, unremarkable. Electronically signed by: Pedro Luis Nicholson M.D. Radiologist: PEDRO LUIS NICHOLSON MD ?? Attending: ??KALI REDDY Requesting: KALI REDDY Requesting Fax: ?? Requesting ID: [id number] Attending Fax: ?? Attending ID: ?? [id number] Completed Time: ?? 11/23/2016 10:45 AM Dictated Time: ?N/A Transcribed Time: 11/23/2016 2:14 PM Signed by: ?PEDRO LUIS NICHOLSON MD ?? on 11/23/2016 2:14 PM Report To 1 ID: Report To 1 Name: , Report To 1 FAX: Report To 2 ID: Report To 2 Name: , Report To 2 FAX: Report To 3 ID: Report To 3 Name: , Report To 3 FAX: NextGen Order #: Procedure Note Provider, MD Sandra - 02/19/2017 CT angiography of the chest with and without contrast HISTORY: Ascending thoracic aortic aneurysm. TECHNIQUE: Transaxial gated helical imaging was performed through the chest before and during intravenous administration of 97 mL of Optiray 350. 3 mm precontrast images were reconstructed along with one and 3 mm arterial phase images. Additionally, the raw 2-dimensional transaxial imaging data was transferred to a 3-D workstation for processing/review. CT angiogram findings: The aorta measures 4.1 x 4.1 cm in transverse dimension at the sinuses of Valsalva, 4.5 x 4.5 cm at the sinotubular junction, and demonstrates a maximum transverse dimensions of 4.9 x 5.1 cm in the ascending thoracic aorta. This is not significantly changed from 5.2 cm on the previous MR examination of 05/24/2016. The aorta tapers to 3.5 x 3.6 cm at the level of the mid arch, 3.5 x 3.6 cm at the proximal descending thoracic aorta, 3.4 x 3.4 cm in the mid descending thoracic aorta, and 3.0 x 3.0 cm at the diaphragmatic hiatus. There is no evidence of dissection. The great vessels arise unremarkably from the aortic arch without stenoses. The celiac axis arises unremarkably from the proximal abdominal aorta without a stenosis. The precontrast images demonstrate minimal calcific atherosclerotic plaque involving the coronary arteries. IMPRESSION: 1. Aneurysmal dilatation of the ascending thoracic aorta with a maximum transverse diameter of 5.1 cm. Full details are above. 2. No evidence of dissection. 3. The great vessels arise normally from the aortic arch without stenoses. The celiac axis arises normally from the proximal abdominal aorta and also demonstrates no stenosis. 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 There are no pleural effusions. The lungs are clear. There are no enlarged hilar or mediastinal lymph nodes evident. Images through the upper abdomen are unremarkable. CT thorax impression: 1. Asbestos related pleural disease. 2. Otherwise, unremarkable. Electronically signed by: Pedro Luis Nicholson M.D. Radiologist: PEDRO LUIS NICHOLSON MD Attending: KALI REDDY Requesting: KALI REDDY Requesting Requesting ID: [id number] Attending Attending ID: [id number] Completed Time: 11/23/2016 10:45 AM Dictated Time: N/A Transcribed Time: 11/23/2016 2:14 PM Signed by: PEDRO LUIS NICHOLSON MD on 11/23/2016 2:14 PM Report To 1 ID: Report To 1 Name: , Report To 1 FAX: Report To 2 ID: Report To 2 Name: , Report To 2 FAX: Report To 3 ID: Report To 3 Name: , Report To 3 FAX: NextGen Order #: us Historical Provider MD BERGER CT PROCEDURES Final R esult documented in this encounter Visit Diagnoses Diagnosis Thoracic aortic aneurysm without rupture (HCC) Other specified pleural conditions Contact with and (suspected) exposure to asbestos Personal history of contact with and (suspected) exposure to asbestos documented in this encounter Care Teams Realty Loan Specialist Relationship Specialty Start Date End Date Emelina Khan MD [address] [address] PCP - General 11/23/16 06/18/18 documented as of this encounter
--- OUTSIDE RECORDS SUMMARY | 2024-09-29 22:10 | XMS_ITS | Encounter Summary ---
Author Organization [facility] Address [address] [place] [address] Care Team Providers Care Housing Inspector Name Role Phone Noemi Willis NP Primary Care Provider [phone] Kali Reddy MD Unavailable Keaton Lynn MD Unavailable Encounter Details Date Type Department Care Team (Late st Contact Info) Description 06/07/2023 Telephone [facility] Cardiology [address] [place] [address] Kali Reddy MD [address] [facility] [address] [place] [address] Social History Tobacco Use Types Packs/Day Years Used Date Smoking Tobacco: Never Smokeless Tobacco: Never Alcohol Use Standard Drinks/Week Comments Yes 0 (1 standard drink = 0.6 oz pur e alcohol) Socially Sex and Gender Information Value Date Recorded Sex Assigned at Not on file 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 His called me back and he is scheduled for 05/21/24. I gave verbal instructions and mailed with appointment reminder. NPO 2 hours prior. He has no allergies to oral or iv contrast. documented in this encounter Plan of Treatment Not on file documented as of this encounter Visit Diagnoses Not on filedocumented in this encounter Care Teams Housing Inspector Relationship Specialty Start Date End Date Noemi Willis NP PCP - General 06/19/18 06/24/23 Kali Reddy MD Consulting Physician Cardiology 05/19/19 Keaton Lynn MD [address] [facility] [address] [place] [address] Consulting Physician Cardiothoracic Surgery 06/07/23 documented as of this encounter
--- OUTSIDE RECORDS SUMMARY | 2024-09-29 22:10 | XMS_ITS | Encounter Summary ---
Author Organization [facility] Facility Care Team Providers Care Clinical Document Improvement Educator Name Role Phone Emelina Khan MD Primary Care Provider [phone] Encounter Details Date Type Department Care Team (Late st Contact Info) Description 10/19/2015 11:49 AM PHARMACEUTICAL BOTANIST - 10/19/2015 11:59 PM PHARMACEUTICAL BOTANIST Hospital Encounter [facility] Keaton Lynn MD [address] [facility] [address] [place] [address] Social History Tobacco Use Types Packs/Day Years Used Date Smoking Tobacco: Never Assessed Sex and Gender Information Value Date Recorded Sex Assigned at Not on file Legal Sex Male 12:03 PM PHARMACEUTICAL BOTANIST Gender Identity Not on file Sexual Orientation Not on file documented as of this encounter Plan of Treatment Not on file documented as of this encounter Visit Diagnoses Not on filedocumented in this encounter Care Teams Clinical Document Improvement Educator Relationship Specialty Start Date End Date Emelina Khan MD [address] [facility] [address] [place] [address] PCP - General 10/19/15 11/22/16 documented as of this encounter
--- OUTSIDE RECORDS SUMMARY | 2024-09-29 22:10 | XMS_ITS | Encounter Summary ---
Author Organization [facility] Healthcare Address [address] [place] [address] Care Team Providers Care Senior Technical Project Manager Name Role Phone Kali Reddy MD Unavailable Keaton Lynn MD Unavailable [phone] Radha Lozada MD Primary Care Provider [phone] Reason for Visit * Auth/Cert (Routine) Specialty Diagnoses / Procedures Referred By Contac t Referred To Contact Diagnoses Aneurysm of ascending aorta without rupture (HCC) Aneurysm of ascending aorta without rupture (HCC) [I71.21] Procedures DE CATH PLMT L HRT & ARTS W/NJX & ANGIO IMG S&I LEFT HEART CATHETERIZATION WITH CORONARY ANGIOGRAPHY AND WITH OR WITHOUT LEFT VENTRICULOGRAM [id number] Referral ID Status Reason Start Date Expiration Date Visits Re quested Visits Authorized [id number] 1 1 Encounter Details Date Type Department Care Team (Late st Contact Info) Description 06/28/2023 8:30 AM CDT - 06/28/2023 9:40 AM CDT Surgery [facility] [address] [place] [address] Nicolas Golden MD [address] [facility] [address] [place] [address] LEFT HEART CATHETERIZATION WITH CORONARY ANGIOGRAPHY AND WITH OR WITHOUT LEFT VENTRICULOGRAM [id number] Surgery Details Date/Time Status Location OR Service Patient Class Case Class Case Type Trauma Case? 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 Elective Panel 1 Procedure LRB Anes Op Region Wound Class Comments LEFT HEART CATHETERIZATION W ITH CORONARY ANGIOGRAPHY AND WITH OR WITHOUT LEFT VENTRICULOGRAM 33703 N/A Conscious Sedation Surgeon Surgeon Role Service Panel Nicolas Golden MD Primary Cardiovascular 1 Case Notes [facility] Celine NPR documented in this encounter Social History Tobacco Use Types Packs/Day Years Used Date Smoking Tobacco: Never Smokeless Tobacco: Never Alcohol Use Standard Drinks/Week Comments Yes 0 (1 standard drink = 0.6 oz pur e alcohol) Socially Sex and Gender Information Value Date Recorded Sex Assigned at Not on file 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 Gender Identity Not on file Sexual Orientation Not on file documented as of this encounter Last Filed Vital Signs Vital Sign Reading Time Taken Comments Blood Pressure 116/78 06/28/2023 7:00 AM CDT Pulse 68 06/28/2023 8:00 AM CDT Temperature 36.2 ??C (97.1 ??F) 06/28/2023 7:00 AM CD T Respiratory Rate 11 06/28/2023 9:00 AM CDT Oxygen Saturation 97% 06/28/2023 8:00 AM CDT Inhaled Oxygen Concentration - - Weight 111.2 kg (245 lb 3.2 oz) 06/28/2023 7:00 AM CDT Height 182.9 cm (6') 06/28/2023 7:00 AM CDT Body Mass Index 33.26 06/28/2023 7:00 AM CDT documented in this encounter Discharge Instructions * Discharge Instructions* Debi Nathan, MAHIN - 06/28/2023 11:13 AM CDT Cardiac Laboratory [address] [place], [place] [address] CCL Discharge Instructions---Radial Angiogram MEDICATIONS [] Do not take Metformin or [...] for any reason without discussing with your parks and recreation worker first. - These medications may make you bruise or bleed easier than normal. PROCEDURE SITE CARE [x] You may shower in 24 hours. Remove the bandage prior to showering. [x] DO NOT submerge your incision site in water. This includes pools, tub baths, lakes, [place], ponds and hot tubs. You may shower [...] home diet [] Special diet Instructed by Appeals Board Referee ACTIVITY You have been given medications which [...] next 24hours. [x] Resume normal activity in 3 days. [x] NO heavy pushing, pulling, or lifting more than 10 pounds for 5 days with arm used for for procedure [x] Refrain from repetitive activity ( typing, knitting, etc. ) for 2 days SPECIAL INSTRUCTIONS After your procedure, it is normal to have mild soreness/tenderness at the procedure site. Some discoloration and /or bruising may occur at the puncture site region over the next 2-3 days Please notify your physician immediately if you develop any of the following: [x] Significant bleeding at the procedure site. If bleeding occurs, apply firm pressure to the site. If bleeding continues after several minutes of pressure call 911. [x] The arm on which your procedure was performed begins to swell, feel numb, weak, cold or you experience unusual pain. [x] Signs of infection which may include: - fever or chills - drainage from the procedure site - redness/warm to the touch at the procedure site [x] You start having signs of a heart attack which may include: - pain in your chest, arms, jaw or back -trouble catching your breath -feeling sick to your stomach -feeling sweaty FOLLOW UP CARE [x] Call physician's office for appointment [] Appointment scheduled for: with Additional Instructions: I understand and have received a copy of my discharge instructions Patient/Family Signature: Staff Signature/Title: Date and Time: documented in this encounter Medications at Time of Discharge acetaminophen (TylenoL) 325 mg tablet Take 2 tablets (650 mg total) by mouth every 6 (six) hours as needed for pain atorvastatin (LIPITOR) 40 mg tablet Take 1 tablet by mouth once daily 90 tablet 05/16/2023 07/25/2023 carvediloL (COREG) 25 mg tablet TAKE 1 TABLET BY MOUTH TWICE DAILY WITH MEALS 180 tablet 05/16/2023 07/10/2023 losartan (COZAAR) 100 mg tablet Take 1 tablet by mouth once daily 90 tablet 3 10/02/2022 07/14/2023 NIFEdipine (NIFEdipine CC) 30 mg 24 hr tablet Take 1 tablet (30 mg total) by mouth daily 90 tablet 3 06/06/2023 07/14/2023 documented as of this encounter Discharge Disposition Disposition Code Departure Means Destination Comment s Discharge to home or self care Car documented in this encounter H&P Notes * Theodos, Nicolas, MD - 06/28/2023 8:51 AM CDT I have reviewed the H&P, examined the patient, and endorse the findings as written. Plan of Care : Based on the above findings, I consider Omar Adam to be an acceptable risk for : Procedure(s): LEFT HEART CATHETERIZATION WITH CORONARY ANGIOGRAPHY AND WITH OR WITHOUT LEFT VENTRICULOGRAM [id number] Source Note - Aviva Perez PA - 06/21/2023 10:45 AM CDT Cardiothoracic Surgery Patient Name: Omar Adam : 1945 PCP: Noemi Willis NP , Dr. Radha Lozada Referred by: Dr. Kali Reddy Date of Visit: 06/21/23 Chief Complaint: Ascending Aortic Aneurysm HPI: Omar Adam is a 77 y.o. male presenting for [...] is primarily with heavy lifting. States his parks and recreation worker advised that he not lift more than 35 lbs, states he has been compliant with this recently. He is otherwise asymptomatic.Denies shortness of breath, leg swelling, palpitations. 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 [facility] Cardiology [address] [place] [address], [id number], [address] Left Heart Catheterization Procedure Report 77 year old male with aortic aneurysm referred for left heart catheterization. Access:6F Right Radial Artery Catheter: FL5 and Alvaro Injection:Left Main Trunk and Right Coronary Artery Closure:TR band Anticoagulation: 5000Units Heparin Air Kerma:631 mGy Fluoro time:3.6 min Contrast:50 ml Optiray Sedation:1mg Versed, 50 mcg fentanyl Procedural details: After risks, benefits, and alternatives to the procedure were explained to the patient, they agreedto proceed. After signing informed consent the patient was brought to the cardiac catheterization laboratory. There were prepped and draped in sterile fashion. A 6 Tanzanian sheath was inserted in the Right Radial Artery using the modified Seldinger technique .. We then performed selective coronary angiography using various catheters. We then crossed the aortic valve and measured hemodynamics using a pigtail catheter. At completion of the case a TR Band was placed at the wrist with good hemostasisachieved. The patient tolerated the procedure well with no complaints and was transferred to the floor for further monitoring and care. Findings: LMT: Normal LAD: Normal LCX: Normal RCA: dominant, very large, normal LV: 100/15mm Hg Ao: 100/80mm Hg A/P: Normal coronary arteries. Proceed with aneurysm repair without need for additional revascularization. Nicolas Golden MD 06/28/2023 10:01 AM * Pre-Sedation Documentation - Nicolas Golden MD - 06/28/2023 8:51 AM CDT Sedation Plan ASA 2 - Mild systemic disease Sedation/Anesthesia Plan - moderate sedation Mallampati class: II. Risks, benefits, and alternatives discussed with patient. documented in this encounter Plan of Treatment Not on file documented as of this encounter Procedures Procedure Name Priority Date/Time Associated Diagnosis Comments LEFT HEART CATHETERIZATION WITH CORONARY ANGIOGRAPHY AND WITH AND WITHOUT LEFT VENTRICULOGRAM Routine 06/28/2023 9:58 AM CDT Aneurysm of ascending aorta without rupture (HCC) documented in this encounter Results * LEFT HEART CATHETERIZATION WITH CORONARY ANGIOGRAPHY AND WITH AND WITHOUT LEFT VENTRICULOGRAM (06/28/2023 9:58 AM CDT) Anatomical Region Laterality Modality X-Ray Angiograph y Narrative 06/28/2023 10:03 AM CDT Images from the original result were not included. [facility] Cardiology ?? [facility], [address] [place] [address] ?? [place], [place], [address] ?? Left Heart Catheterization Procedure Report 77 year old male with aortic aneurysm referred for left heart catheterization. Access:6F Right Radial Artery Catheter:FL5 and Alvaro Injection:Left Main Trunk and Right Coronary Artery Closure:TR band Anticoagulation:5000Units Heparin Air Kerma:631 mGy Fluoro time:3.6 min Contrast:50 ml Optiray Sedation:1mg Versed, 50 mcg fentanyl Procedural details: After risks, benefits, and alternatives to the procedure were explained to the patient, they agreed to proceed. ??After signing informed consent the patient was brought to the cardiac catheterization laboratory. ??There were prepped and draped in sterile fashion. A 6 Tanzanian sheath was inserted in the Right Radial Artery using the modified Seldinger technique .. ??We then performed selective coronary angiography using various catheters. ??We then crossed the aortic valve and measured hemodynamics using a pigtail catheter. ??At completion of the case a TR Band was placed at the wrist with good hemostasis achieved. ??The patient tolerated the procedure well with no complaints and was transferred to the floor for further monitoring and care. Findings: LMT: Normal LAD: Normal LCX: Normal RCA: dominant, very large, normal LV: 100/15mm Hg Ao: 100/80mm Hg A/P: Normal coronary arteries. ??Proceed with aneurysm repair without need for additional revascularization. Nicolas Golden MD 06/28/2023 10:01 AM us Nicolas Golden MD CV CARDIAC CATH PROCEDURES Final Result documented in this encounter Visit Diagnoses Diagnosis Aortic aneurysm (HCC)- Primary Aortic aneurysm of unspecified site without mention of rupture Aneurysm of ascending aorta without rupture (HCC) Aneurysm of ascending aorta without rupture (HCC) documented in this encounter Admitting Diagnoses Diagnosis Aortic aneurysm (HCC) Aortic aneurysm of unspecified site without mention of rupture documented in this encounter Administered Medications Inactive Administered Medications - up to 3 most recent administrations Medication Order MAR Action Action Date Dose Rate Site fentaNYL (SUBLIMAZE) preservative free injection Code/trauma/sedation medication, Starting on [place] 06/28/23 at 0940, Intra-Procedure (CV) Given 06/28/2023 9:40 AM CDT 50 mcg heparin 1,000 unit/mL injection Code/trauma/sedation medication, Starting on [place] 06/28/23 at 0947, Intra-Procedure (CV) Given 06/28/2023 9:47 AM CDT 5,000 Units heparin in 0.9% sodium chloride 1,000 units/500 mL (2 unit/mL) infusion (premix) Code/trauma/sedation medication, Starting on [place] 06/28/23 at 0947, Intra-Procedure (CV) Given 06/28/2023 9:47 AM CDT 500 mL Given 06/28/2023 9:47 AM CDT 500 mL Given 06/28/2023 9:47 AM CDT 500 mL ioversoL (OPTIRAY 350) injection Code/trauma/sedation medication, Starting on [place] 06/28/23 at 0957, Intra-Procedure (CV) Given 06/28/2023 9:57 AM CDT 50 mL lidocaine (XYLOCAINE) 20 mg/mL (2 %) injection Code/trauma/sedation medication, Starting on [place] 06/28/23 at 0946, Intra-Procedure (CV), Indications: Administration of Local AnesthesiaIndications:Administrati on of Local Anesthesia Given 06/28/2023 9:46 AM CDT 3 mL Right Wrist midazolam (VERSED) 1 mg/mL preservative free injection Administer over 2 Minutes, Code/trauma/sedation medication, Starting on [place] 06/28/23 at 0941, Intra-Procedure (CV) Given 06/28/2023 9:41 AM CDT 1 mg niCARdipine (CARDENE) 500 mcg/5 mL in sodium chloride 0.9% (premix) Code/trauma/sedation medication, Starting on [place] 06/28/23 at 0948, Intra-Procedure (CV) Given 06/28/2023 9:48 AM CDT 200 mcg nitroglycerin injection 100 mcg/mL in D5W 10 mL Code/trauma/sedation medication, Starting on [place] 06/28/23 at 0948, Intra-Procedure (CV) Given 06/28/2023 9:48 AM CDT 200 mcg sodium chloride 0.9% infusion 50 mL/hr, intravenous, Continuous, Starting on [place] 06/28/23 at 0745, Pre-Procedure (CV)Indications:Aneurysm of ascending aorta without rupture (HCC) documented in this encounter Historical Medications * This list may reflect changes made after this encounter. acetaminophen (TylenoL) 325 mg tablet Take 2 tablets (650 mg total) by mouth every 6 (six) hours as needed for pain added in this encounter Active and Recently Administered Medications Times are shown in CDT. Continuous Medication Order 06/26/2023 06/27/2023 06/28/2023 sodium chloride 0.9% infusion 50 mL/hr, intravenous, Continuous, Starting on [place] 06/28/23 at 0745, Pre-Procedure (CV) 0745 (Due) PRN Medication Order 06/26/2023 06/27/2023 06/28/2023 fentaNYL (SUBLIMAZE) preservative free injection (CANCELED) Code/trauma/sedation medication, Starting on [place] 06/28/23 at 0940, Intra-Procedure (CV) 0940 (Given - Provid er: Wellington Beckford, RN) heparin 1,000 unit/mL injection (CANCELED) Code/trauma/sedation medication, Starting on [place] 06/28/23 at 0947, Intra-Procedure (CV) 0947 (Given - Provid er: Nicolas Golden MD) heparin in 0.9% sodium chloride 1,000 units/500 mL (2 unit/mL) infusion (premix) (CANCELED) Code/trauma/sedation medication, Starting on [place] 06/28/23 at 0947, Intra-Procedure (CV) 0947 (Given - Provid er: Nicolas Golden MD - Comment: btf)0947 (Given - Provider: Nicolas Golden MD - Comment: btf)0947 (Given - Provider: Nicolas Golden MD - Comment: btf) ioversoL (OPTIRAY 350) injection (CANCELED) Code/trauma/sedation medication, Starting on [place] 06/28/23 at 0957, Intra-Procedure (CV) 0957 (Given - Provid er: Nicolas Golden MD) lidocaine (XYLOCAINE) 20 mg/mL (2 %) injection (CANCELED) Code/trauma/sedation medication, Starting on [place] 06/28/23 at 0946, Intra-Procedure (CV), Indications: Administration of Local Anesthesia 0946 (Given - Provid er: Nicolas Golden MD) midazolam (VERSED) 1 mg/mL preservative free injection (CANCELED) Administer over 2 Minutes, Code/trauma/sedation medication, Starting on [place] 06/28/23 at 0941, Intra-Procedure (CV) 0941 (Given - Provid er: Wellington Beckford, RN) niCARdipine (CARDENE) 500 mcg/5 mL in sodium chloride 0.9% (premix) (CANCELED) Code/trauma/sedation medication, Starting on [place] 06/28/23 at 0948, Intra-Procedure (CV) 0948 (Given - Provid er: Nicolas Golden MD) nitroglycerin injection 100 mcg/mL in D5W 10 mL (CANCELED) Code/trauma/sedation medication, Starting on [place] 06/28/23 at 0948, Intra-Procedure (CV) 0948 (Given - Provid er: Nicolas Golden MD) documented in this encounter Orders Medications Ordered That Jorge ht Not Have Been Administered Count Last Ordered Date First Ordered Date sodium chloride 0.9% infusion 1 06/28/2023 Discharge Count Last Ordered Date First Orde red Date DISCHARGE PATIENT 1 06/28/2023 documented in this encounter Care Teams Senior Technical Project Manager Relationship Specialty Start Date End Date Radha Lozada MD [address] [place] [address] [place] [address] PCP - General Family Medicine 06/25/23 04/29/24 Kali Reddy MD Consulting Physician Cardiology 05/19/19 Keaton Lynn MD [address] [place] [address] Consulting Physician Cardiothoracic Surgery 06/07/23 documented as of this encounter
--- OUTSIDE RECORDS SUMMARY | 2024-09-29 22:10 | XMS_ITS | Encounter Summary ---
Author Organization [facility] Address [address] [place] [address] Care Team Providers Care Mattress Specialist Name Role Phone Emelina Khan MD Primary Care Provider [phone] Reason for Referral * Hospital - Outpatient (Routine) - Closed Specialty Diagnoses / Procedures Referred By Contac t Referred To Contact Radiology Diagnoses Ascending aortic aneurysm (HCC) Procedures CTA Chest W Contrast Kali Reddy MD Phone: tel: fax: [facility] [phone] [place] [address] Referral ID Status Reason Start Date Expiration Date Visits Re quested Visits Authorized [id number] Closed 05/21/2018 11/30/2019 1 1 * Hospital - Outpatient (Routine) - Closed Specialty Diagnoses / Procedures Referred By Contac t Referred To Contact Radiology Diagnoses Ascending aortic aneurysm (HCC) Procedures CTA Chest W Contrast Kali Reddy MD Phone: tel: fax: [facility] [phone] [place] [address] Referral ID Status Reason Start Date Expiration Date Visits Re quested Visits Authorized [id number] Closed 05/21/2018 11/30/2019 1 1 Reason for Visit * Reason Comments Hyperlipidemia Hypertension Encounter Details Date Type Department Care Team (Latest Contact Info) Description 05/21/2018 10:15 AM CDT Office Visit [facility] [place] [address] [place] [address] Kali Reddy MD [address] [facility] [address] [place] [address] Ascending aortic aneurysm (CMS/HCC) (Primary Dx); Pure hypercholesterolemia Social History Tobacco Use Types Packs/Day Years Used Date Smoking Tobacco: Never Smokeless Tobacco: Never Alcohol Use Standard Drinks/Week Comments Yes 0 (1 standard drink = 0.6 oz pur e alcohol) Socially Sex and Gender Information Value Date Recorded Sex Assigned at Not on file 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 Gender Identity Not on file Sexual Orientation Not on file documented as of this encounter Last Filed Vital Signs Vital Sign Reading Time Taken Comments Blood Pressure 122/74 05/21/2018 9:43 AM CDT Pulse 76 05/21/2018 9:43 AM CDT Temperature - - Respiratory Rate - - Oxygen Saturation 97% 05/21/2018 9:43 AM CDT Inhaled Oxygen Concentration - - Weight 105.7 kg (233 lb) 05/21/2018 9:43 AM CDT Height 182.9 cm (6') 05/21/2018 9:43 AM CDT Body Mass Index 31.6 05/21/2018 9:43 AM CDT documented in this encounter Ordered Prescriptions Prescription Sig Dispense Quantity Refills Last Filled Start Date End Date metoprolol XL (TOPROL-XL) 25 mg 24 hr tablet Take 1 tablet (25 mg total) by mouth daily. 90 tablet 3 05/21/2018 06/21/2019 losartan (COZAAR) 25 mg tablet Take 1 tablet (25 mg total) by mouth daily. 90 tablet 3 05/21/2018 08/04/2019 documented in this encounter Progress Notes * Kali Reddy MD - 05/21/2018 10:15 AM CDT [facility] [place] [address] [facility] [address], [place] [address] Cardiology MD Kali Mckeon, MD Wellington Dugan, MD Wellington Farrell, MD Ian Sahni, DO Parish Monae, MD Osmin Barbosa, MD Jackie Patiño, MD Everardo Briscoe, DO Cassie Mario, MACHINE REPAIRER MAINTENANCE Beth Sarah, MACHINE REPAIRER MAINTENANCE Patient Name: Omar Adam Provider: aKli Reddy MD : 1945 Date of Service: 05/21/2018 Referring: Erin CHIEF COMPLAINT: Hyperlipidemia and Hypertension TESTING/DATA: Pronounced BRAULIO-MEN is Jackie Landry of an outdoorsman Asc Ao aneurysm of 5 cm per OSH read at end of 2014. Has grown 1 cm in 4 years. Cardiac catheterization 08/2015: Nonobstructive coronary artery disease. CMR 11/2015: Normal biventricular function. Trileaflet aortic valve. Chest MRA 2015: Compromised exam. Ascending aorta 5.2 cm Chest CTA 11/2016: Maximum dimension 5.1 cm. HISTORY OF PRESENT ILLNESS: Omar Adam is a very pleasant 72 y.o. male with a history which includes thoracic aortic aneurysm (no high risk features, surgical referral at 5.5 cm, he has elected for chronic CT scans rather than MRA because of some claustrophobia) who returns to clinic for follow-up. When I saw him last he was doing very well. I made no medication changes. Plan was for him to follow up in one year with rep eat imaging. He feels quite well. He has no cardiac complaints. Happy with his current status. ALLERGY Patient has no known allergies. MEDICATIONS Outpatient Encounter Prescriptions as of 05/21/2018 Medication Sig Dispense Refill ??? aspirin 81 mg tablet TAKE ONE TABLET BY MOUTH ONCE DAILY 90 tablet 3 ??? atorvastatin (LIPITOR) 20 mg tablet Take 1 tablet (20 mg total) by mouth daily. 90 tablet 3 ??? losartan (COZAAR) 25 mg tablet TAKE ONE TABLET BY MOUTH ONCE DAILY 90 tablet 3 ??? metoprolol XL (TOPROL-XL) 25 mg 24 hr tablet TAKE ONE TABLET BY MOUTH ONCE DAILY 30 tablet 11 No facility-administered encounter medications on file as of 05/21/2018. PAST MEDICAL HISTORY Past Medical History: Diagnosis Date ??? Arthritis Arthritis; Comments: [facility] 10/19/2015 - ??? HX OTHER MEDICAL ascending aortic aneurysm; Comments: [facility] 10/19/2015 - ??? Hypertension Hypertension ??? Sleep apnea Sleep apnea FAMILY HISTORY Family History Problem Relation Age of Onset ??? Hypertension Mother Hypertension; ??? Hypertension Father Hypertension; ??? Coronary artery disease Other Family history of Coronary artery disease; SOCIAL HISTORY Social History Social History ??? Marital status: Spouse name: N/A ??? Number of children: N/A ??? Years of education: N/A Social History Main Topics ??? Smoking status: Never Smoker ??? Smokeless tobacco: Never Used ??? Alcohol use Yes Comment: Socially ??? Drug use: No ??? Sexual activity: Not Asked Other Topics Concern ??? None Social History Narrative ??? None REVIEW OF SYSTEMS: Review of Systems Constitutional: Negative. HENT: Negative. Eyes: Negative. Respiratory: Negative. Gastrointestinal: Negative. Musculoskeletal: Negative. Skin: Negative. Neurological: Negative. Endo/Heme/Allergies: Negative. Psychiatric/Behavioral: Negative. All other systems reviewed and are negative. PHYSICAL EXAM: BP 122/74 (BP Location: Right arm, Patient Position: Sitting) Pulse 76 Ht 182.9 cm (6') Wt 105.7 kg (233 lb) SpO2 97% BMI 31.60 kg/m?? General: No apparent distress. Eyes: Sclerae anicteric. Neck: JVP is probably normal. Chest: No deformity. Respiratory: Clear to auscultation bilaterally with good air movement. Cardiac: Regular rate and rhythm. No murmurs, gallops, rubs. Vascular: 2+ pulses throughout. Abdomen: Soft, nontender, nondistended. Extremities: No lower extremity edema. Musculoskeletal: Grossly normal strength throughout. Neurologic: Nonfocal. No dysarthria. Skin: No rashes Psychiatric: Appropriate affect and interaction. ASSESSMENT & PLAN: Ascending aortic aneurysm (CMS/HCC) He does not yet have his repeat CT scan scheduled for now. Will order that. Will also order repeat CTA for one year from now. Continue his current medical regimen. Pure hypercholesterolemia Continue statin. Kali Reddy MD documented in this encounter Plan of Treatment Not on file documented as of this encounter Procedures Procedure Name Priority Date/Time Associated Diagnosis Comments POCT LIPID PANEL Routine 05/21/2018 9:49 AM CDT Pure hypercholesterolemia documented in this encounter Results * CTA Chest W Contrast (05/26/2019 9:22 AM CDT) Anatomical Region Laterality Modality Chest N/A Computed Tomogra phy 05/26/2019 5:15 PM CDT Impressions 05/26/2019 5:27 PM CDT 1. ??Stable dilatation of the ascending aorta with maximum diameter and of 4.9 x 4.8 cm. 2. ??Bilateral calcified pleural plaques unchanged. 3. ??Some coronary artery calcification which is stable. Electronically signed by: Lew Sterling M.D. Narrative 05/26/2019 5:[address] ANGIOGRAM THORAX WITH CONTRAST HISTORY: Follow-up descending thoracic aortic aneurysm. COMPARISON: ??CT angio chest dated 06/21/2018. TECHNIQUE: CT scans were obtained of the thorax using cardiac pitch with cardiac gating during rapid intravenous infusion of 95 mL Optiray 350. ??CTs were sent to a separate 3-D workstation for CT angiographic reconstructions. FINDINGS: Mediastinum: There is no definite hilar or mediastinal lymphadenopathy or mass identified. Vascular structures: There is aneurysmal dilatation of the ascending aorta. ??The maximum diameter is 4.9 x 4.8 cm which is unchanged from the previous examination. ??See also dimensions below. ??There is no dissection. ??The pulmonary arteries are normally enhanced without evidence of pulmonary embolism. Heart: The heart is not enlarged. There is no pericardial effusion. Coronary artery calcification is again evident. ??There is a right dominant coronary artery system. Lungs: There is a stable small nodule medially in the right upper lobe, unchanged from the previous examination. ??There is no new suspicious pulmonary nodule evident. Pleural spaces: There are extensive calcified pleural plaques raising the possibility of asbestos-related disease. ??These are stable in appearance Airways: The central airways are unremarkable. Lower neck: The thyroid is unremarkable. There is no definite lower cervical adenopathy. Osseous structures: No acute abnormality. Upper abdomen: ??Visualized portions of the liver, spleen, adrenals, pancreas and kidneys are unremarkable. CT ANGIOGRAM FINDINGS: The aorta at the level of the sinuses of Valsalva measures 4.3 x 4.2 x 4.2 cm. ??At the sinotubular junction, the aorta measures 4.4 x 4.2 cm. ??At its widest point, the aorta measures 4.9 x 4.8 cm. ??These values are not significantly changed. ??The mid transverse arch measures 3.8 x 3.6 cm. ??The proximal descending thoracic aorta measures 3.5 x 3.2 cm. ??The distal descending thoracic aorta at the level of the diaphragmatic hiatus measures 3 x 2.9 cm. There is normal origin of the great vessels from the aortic arch without significant stenosis. ??The celiac axis and superior mesenteric artery are widely patent. ??The right renal artery is widely patent. ??A small accessory upper pole branch to the left renal artery is patent. ??The main left renal artery is not evaluated on this study. Procedure Note Lew Sterling MD - 05/26/2019 CT ANGIOGRAM THORAX WITH CONTRAST HISTORY: Follow-up descending thoracic aortic aneurysm. COMPARISON: CT angio chest dated 06/21/2018. TECHNIQUE: CT scans were obtained of the thorax using cardiac pitch with cardiac gating during rapid intravenous infusion of 95 mL Optiray 350. CTs were sent to a separate 3-D workstation for CT angiographic reconstructions. FINDINGS: Mediastinum: There is no definite hilar or mediastinal lymphadenopathy or mass identified. Vascular structures: There is aneurysmal dilatation of the ascending aorta. The maximum diameter is 4.9 x 4.8 cm which is unchanged from the previous examination. See also dimensions below. There is no dissection. The pulmonary arteries are normally enhanced without evidence of pulmonary embolism. Heart: The heart is not enlarged. There is no pericardial effusion. Coronary artery calcification is again evident. There is a right dominant coronary artery system. Lungs: There is a stable small nodule medially in the right upper lobe, unchanged from the previous examination. There is no new suspicious pulmonary nodule evident. Pleural spaces: There are extensive calcified pleural plaques raising the possibility of asbestos-related disease. These are stable in appearance Airways: The central airways are unremarkable. Lower neck: The thyroid is unremarkable. There is no definite lower cervical adenopathy. Osseous structures: No acute abnormality. Upper abdomen: Visualized portions of the liver, spleen, adrenals, pancreas and kidneys are unremarkable. CT ANGIOGRAM FINDINGS: The aorta at the level of the sinuses of Valsalva measures 4.3 x 4.2 x 4.2 cm. At the sinotubular junction, the aorta measures 4.4 x 4.2 cm. At its widest point, the aorta measures 4.9 x 4.8 cm. These values are not significantly changed. The mid transverse arch measures 3.8 x 3.6 cm. The proximal descending thoracic aorta measures 3.5 x 3.2 cm. The distal descending thoracic aorta at the level of the diaphragmatic hiatus measures 3 x 2.9 cm. There is normal origin of the great vessels from the aortic arch without significant stenosis. The celiac axis and superior mesenteric artery are widely patent. The right renal artery is widely patent. A small accessory upper pole branch to the left renal artery is patent. The main left renal artery is not evaluated on this study. IMPRESSION: 1. Stable dilatation of the ascending aorta with maximum diameter and of 4.9 x 4.8 cm. 2. Bilateral calcified pleural plaques unchanged. 3. Some coronary artery calcification which is stable. Electronically signed by: Lew Sterling M.D. Kali Reddy MD IM CT PROCEDURES Final Re sult * CTA Chest W Contrast (06/21/2018 10:02 AM CDT) Anatomical Region Laterality Modality Chest N/A Computed Tomogra phy 06/21/2018 2:34 PM CDT Impressions 06/21/2018 3:17 PM CDT 1. ??Stable ectatic ascending thoracic aorta measuring up to 4.9 cm. See above for additional aortic measurements. 2. ??Calcified pleural plaques. 3. ??Stable right upper lobe 4 mm pulmonary nodule. Electronically signed by: ANGELA PETERS MD [facility] 06/21/2018 3:[address] ANGIOGRAM CHEST WITHOUT AND WITH CONTRAST HISTORY: Ascending aortic aneurysm. COMPARISON: ??05/24/2017. TECHNIQUE: CT images were obtained of the chest without IV contrast. CT images were then obtained using cardiac pitch with cardiac gating after intravenous infusion of 100 mL Optiray 350. ??CT images were sent to a separate 3-D workstation for CT angiographic reconstructions. FINDINGS: Mediastinum: No mediastinal or hilar lymphadenopathy. Vascular structures: Normal caliber pulmonary trunk. ??There is no pulmonary embolism. Heart: The heart is not enlarged. There is no pericardial effusion. Trace coronary artery calcifications. Lungs: Stable 4 mm medial right upper lobe pulmonary nodule (series 2 image 29). ??Calcified granulomas. ??No mass or consolidation. Pleural spaces: No pleural effusion or pneumothorax. ??Bilateral calcified pleural plaques. Airways: The central airways are unremarkable. Lower neck: The thyroid is unremarkable. There is no definite lower cervical adenopathy. Osseous structures: Degenerative changes in the spine. ??No destructive osseous lesion. Upper abdomen: ??Unremarkable as visualized. CT ANGIOGRAM FINDINGS: No dissection. ??Trace atherosclerosis. ??Aorta at the sinuses of Valsalva measures 4.0 x 4.1 x 4.0 cm. ??At the sinotubular junction the aorta measures 4.5 x 4.4 cm. ??Maximum diameter of the ascending aorta is 4.9 x 4.8 cm. ??It previously measured 4.9 x 4.9 cm when measured similarly. ??Mid aortic arch measures 3.7 cm. ??Maximum descending thoracic aorta measures 3.3 x 3.6 cm. ??The aorta measures 2.8 x 3.1 cm the diaphragmatic hiatus. ??There is conventional branching pattern of the arch vessels without significant stenosis in the visible course. Celiac axis is noted to be patent. Procedure Note Angela Peters MD - 06/21/2018 CT ANGIOGRAM CHEST WITHOUT AND WITH CONTRAST HISTORY: Ascending aortic aneurysm. COMPARISON: 05/24/2017. TECHNIQUE: CT images were obtained of the chest without IV contrast. CT images were then obtained using cardiac pitch with cardiac gating after intravenous infusion of [address] images were sent to a separate 3-D workstation for CT angiographic reconstructions. FINDINGS: Mediastinum: No mediastinal or hilar lymphadenopathy. Vascular structures: Normal caliber pulmonary trunk. There is no pulmonary embolism. Heart: The heart is not enlarged. There is no pericardial effusion. Trace coronary artery calcifications. Lungs: Stable 4 mm medial right upper lobe pulmonary nodule (series 2 image 29). Calcified granulomas. No mass or consolidation. Pleural spaces: No pleural effusion or pneumothorax. Bilateral calcified pleural plaques. Airways: The central airways are unremarkable. Lower neck: The thyroid is unremarkable. There is no definite lower cervical adenopathy. Osseous structures: Degenerative changes in the spine. No destructive osseous lesion. Upper abdomen: Unremarkable as visualized. CT ANGIOGRAM FINDINGS: No dissection. Trace atherosclerosis. Aorta at the sinuses of Valsalva measures 4.0 x 4.1 x 4.0 cm. At the sinotubular junction the aorta measures 4.5 x 4.4 cm. Maximum diameter of the ascending aorta is 4.9 x 4.8 cm. It previously measured 4.9 x 4.9 cm when measured similarly. Mid aortic arch measures 3.7 cm. Maximum descending thoracic aorta measures 3.3 x 3.6 cm. The aorta measures 2.8 x 3.1 cm the diaphragmatic hiatus. There is conventional branching pattern of the arch vessels without significant stenosis in the visible course. Celiac axis is noted to be patent. IMPRESSION: 1. Stable ectatic ascending thoracic aorta measuring up to 4.9 cm. See above for additional aortic measurements. 2. Calcified pleural plaques. 3. Stable right upper lobe 4 mm pulmonary nodule. Electronically signed by: ANGELA PETERS MD Kali Reddy MD IMG CT PROCEDURES Final Re sult * POCT lipid panel (05/21/2018 9:49 AM CDT) Cholesterol, POC 105 mg/dL HDL, POC 36 mg/dL Triglycerides, POC 177 mg/dL LDL Cholesterol POC 33 mg/dL Capillary blood 05/21/2018 9 :49 AM CDT Kali Reddy MD POINT OF CARE TEST ORDERAB LES Final Result documented in this encounter Visit Diagnoses Diagnosis Ascending aortic aneurysm (HCC)- Primary Thoracic aneurysm without mention of rupture Pure hypercholesterolemia Ascending aortic aneurysm (HCC) Thoracic aneurysm without mention of rupture Ascending aortic aneurysm (HCC) Thoracic aneurysm without mention of rupture documented in this encounter Discontinued Medications Medication Sig Discontinue Reason Start Date End Da te losartan (COZAAR) 25 mg tablet TAKE ONE TABLET BY MOUTH ONCE DAILY Reorder 05/23/2017 05/21/2018 metoprolol XL (TOPROL-XL) 25 mg 24 hr tablet TAKE ONE TABLET BY MOUTH ONCE DAILY Reorder 07/20/2017 05/21/2018 documented as of this encounter Care Teams Mattress Specialist Relationship Specialty Start Date End Date Emelina Khan MD [address] [address] PCP - General 11/23/16 06/18/18 documented as of this encounter
--- OUTSIDE RECORDS SUMMARY | 2024-09-29 22:10 | XMS_ITS | Encounter Summary ---
Author Organization [facility] Address [address] [place] [address] Care Team Providers Care Box Inspector Name Role Phone Noemi Willis NP Primary Care Provider [phone] Kali Reddy MD Unavailable [phone] Reason for Referral * MRI/CAT/PET Scan (Routine) - Closed Specialty Diagnoses / Procedures Referred By Contac t Referred To Contact Radiology Diagnoses Ascending aortic aneurysm (HCC) Procedures CTA Chest W Contrast Kali Reddy MD Phone: tel: fax: [facility] [address] [place] [address] Referral ID Status Reason Start Date Expiration Date Visits Re quested Visits Authorized [id number] Closed 06/08/2021 07/08/2022 1 1 Reason for Visit * Reason Comments Aneurysms Encounter Details Date Type Department Care Team (Latest Contact Info) Description 06/08/2021 11:00 AM CDT Office Visit [facility] Cardiology [address] [place] [address] Kali Reddy MD [address] [place] [address] Ascending aortic aneurysm (CMS/HCC) (HCC) (Primary Dx); Pure hypercholesterolemia Social History Tobacco Use Types Packs/Day Years Used Date Smoking Tobacco: Never Smokeless Tobacco: Never Alcohol Use Standard Drinks/Week Comments Yes 0 (1 standard drink = 0.6 oz pur e alcohol) Socially Sex and Gender Information Value Date Recorded Sex Assigned at Not on file 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 Gender Identity Not on file Sexual Orientation Not on file documented as of this encounter Last Filed Vital Signs Vital Sign Reading Time Taken Comments Blood Pressure 138/72 06/08/2021 10:56 AM CDT Pulse 67 06/08/2021 10:56 AM CDT Temperature - - Respiratory Rate - - Oxygen Saturation 96% 06/08/2021 10: 56 AM CDT Inhaled Oxygen Concentration - - Weight 112.7 kg (248 lb 6.4 oz) 021 10:56 AM CDT Height 182.9 cm (6') 06/08/2021 10:56 AM CDT Body Mass Index 33.69 06/08/2021 10:56 AM CDT documented in this encounter Ordered Prescriptions Prescription Sig Dispense Quantity Refills Last Filled Start Date End Date losartan (COZAAR) 100 mg tablet Take 1 tablet (100 mg total) by mouth daily 90 tablet 3 06/08/2021 05/02/2022 metoprolol XL (TOPROL-XL) 100 mg 24 hr tablet Take 1 tablet (100 mg total) by mouth daily 90 tablet 3 06/08/2021 05/02/2022 documented in this encounter Progress Notes * Kali Reddy MD - 06/08/2021 11:00 AM CDT Images from the original note were not included. [facility] [address] [address] Cardiology MD Kali Mckeon MD Robert Kopitsky, MD Martin Schwarze, MD Osmin Odom, MD Nicolas Wilson MD Jeremy Tietjens, MD K. Bryan Trimmer, DO Rory Dowling, MD Beth Smith, PRIMER WATERPROOFING MACHINE ADJUSTER Patricia Campbell, ALEX Monk, PRIMER WATERPROOFING MACHINE ADJUSTER Patient Name: Omar Adam Provider: Kali Reddy MD : 1945 Date of Service: 06/08/2021 Referring: Lazaro CHIEF COMPLAINT: Aneurysms TESTING/DATA: Anival BRAULIO-RODGER is Jackie Landry of an [facility] [...] chest 05/2020: Maximum dimension 4.9 cm, stable. HISTORY OF PRESENT ILLNESS: This note was dictated with voice-recognition software, scuba diver errors may be present. Omar Adam is a very pleasant 75 y.o. male with a history which includes thoracic aortic aneurysm (no high risk features, surgical referral at 5.5 cm, he has elected for chronic CT scans, which he would like to do annually, rather than MRA because of some claustrophobia) who returns to clinic. When I saw him last he was doing well. I increased his beta-riya and ARB doses. This is his annual follow-up. He had CT aortogram performed earlier today. The report is pending. He returns to clinic doing pretty well overall. He denies dyspnea. He said he gets a left-sided chest pain that lasts only a second or so ???once in a while?? . It is not consistently associated withexertion. ALLERGY Patient has no known allergies. MEDICATIONS Outpatient Encounter Medications as of 06/08/2021 Medication Sig Dispense Refill ??? aspirin 81 mg enteric coated tablet Take 1 tablet by mouth once daily 90 tablet 3 ??? atorvastatin (LIPITOR) 40 mg tablet Take 1 tablet by mouth once daily 90 tablet 3 ??? losartan (COZAAR) 50 mg tablet Take 1 tablet (50 mg total) by mouth daily 90 tablet 3 ??? metoprolol XL (TOPROL-XL) 50 mg extended release tablet Take 1 tablet (50 mg total) by mouth daily 90 tablet 3 Facility-Administered Encounter Medications as of 06/08/2021 Medication Dose Route Frequency Provider Last Rate Last Admin ??? [COMPLETED] ioversoL (OPTIRAY 350) syringe syringe 100 mL 100 mL intravenous Once in imaging Kali Reddy MD 95 mL at 06/08/21 1022 ??? [COMPLETED] sodium chloride 0.9% flush 125 mL 125 mL intravenous Once in imaging Chucho Reddy MD 80 mL at 06/08/21 1022 PAST MEDICAL HISTORY Past Medical History: Diagnosis Date ??? Arthritis Arthritis; Comments: [facility] 10/19/2015 - ??? HX OTHER MEDICAL ascending aortic aneurysm; Comments: [facility] 10/19/2015 - ??? Hypertension Hypertension ??? Sleep apnea Sleep apnea FAMILY HISTORY Family History Problem Relation Age of Onset ??? Hypertension Mother Hypertension; ??? Hypertension Father Hypertension; ??? Coronary artery disease Other Family history of Coronary artery disease; SOCIAL HISTORY Social History Tobacco Use ??? Smoking status: Never Smoker ??? Smokeless tobacco: Never Used Substance Use Topics ??? Alcohol use: Yes Comment: Socially PHYSICAL EXAM: BP 138/72 Pulse 67 Ht 182.9 cm (6') Wt 112.7 kg (248 lb 6.4 oz) SpO2 96% BMI 33.69 kg/m?? General: No apparent distress. Eyes: Sclerae anicteric. Neck: JVP is normal. Chest: No deformity. Respiratory: Clear to auscultation bilaterally with good air movement. Cardiac: Regular rate and rhythm. No murmurs, gallops, rubs. Soft heart sounds. Vascular: 2+ pulses. Abdomen: Soft, nontender, nondistended. Extremities: No significant lower extremity edema. Musculoskeletal: Grossly normal strength throughout. Neurologic: Grossly nonfocal. No dysarthria. Skin: No rashes. Psychiatric: Appropriate affect and interaction. ASSESSMENT & PLAN: Ascending aortic aneurysm (CMS/HCC) CT scan report from today is pending. Continue metoprolol and losartan. Blood pressure not quite optimal so will double his metoprolol and losartan doses to 100 mg each. I have ordered a CTA to be performed next year. Pure hypercholesterolemia Continue statin. He denies having any known atherosclerotic vascular disease. Therefore, given his age is over 70, will discontinue primary prophylaxis aspirin consistent with the most recent ACC guidelines. The ASCVD Risk score (Satinder ROSY Jr., et al., 2013) failed to calculate for the following reasons: Cannot find a previous HDL lab The valid total cholesterol range is 130 to 320 mg/dL Return to clinic in one year. Kali Reddy MD documented in this encounter Plan of Treatment Not on file documented as of this encounter Procedures Procedure Name Priority Date/Time Associated Diagnosis Comments POCT LIPID PANEL Routine 06/08/2021 11:1 0 AM CDT Pure hypercholesterolemia documented in this encounter Results * CTA Chest W Contrast (06/08/2022 11:38 AM CDT) Anatomical Region Laterality Modality Chest N/A Computed Tomogra phy 06/08/2022 12:2 1 PM CDT Impressions 06/08/2022 12:21 PM CDT 1. Stable to minimal increase in size of 5.2 cm ascending thoracic aortic aneurysm. 2. ??Atherosclerosis. 3. ??Asbestos related pleural disease. Electronically signed by: Osmin Crenshaw M.D. Narrative 06/08/2022 12:21 PM CDT EXAM: CTA CHEST W CONTRAST CLINICAL HISTORY: Thoracic aortic aneurysm (TAA), known, follow up COMPARISON: ??CT angiography of the chest dated 06/08/2021. TECHNIQUE: CT images were then obtained using cardiac pitch with cardiac gating after intravenous infusion of 87 mL Optiray 350. ??CT images were sent to a separate 3-D workstation for CT angiographic reconstructions. FINDINGS: Postsurgical changes/Lines: No postsurgical changes or lines are identified in the chest. Mediastinum and renetta: No mass. No adenopathy. Heart: The heart size is within normal limits. No pericardial effusion is identified. ??There is coronary artery atherosclerosis. Aorta and vascular: For complete description of vascular structures, please see angiogram findings. Lungs, airways and pleural spaces: There is old granulomatous disease. ??Calcified pleural plaques are again noted bilaterally compatible with asbestos related pleural disease. ??There is a stable 5 mm nodule in the medial right upper lobe compatible with benign pulmonary nodule. ??The lungs are otherwise clear. ??No confluent infiltrates or effusions are identified. Chest wall: Unremarkable. No axillary adenopathy. Upper abdomen: Unremarkable. Osseous structures: Unremarkable. CT ANGIOGRAM FINDINGS: There is thoracic aortic atherosclerosis. ??The ascending thoracic aorta at the level of the sinus of Valsalva measures 5.0 x 4.7 x 5.1 cm. ??The ascending thoracic aorta at the level of the sinotubular junction measures 5.2 x 4.6 cm. ??The maximum dimension of the ascending thoracic aorta measures 5.2 x 4.9 cm. ??The thoracic aorta at the level of the mid arch measures 3.9 x 3.7 cm. ??The proximal descending thoracic aorta measures 3.7 x 3.5 cm. ??The mid descending thoracic aorta measures 3.5 x 3.5 cm. ??The descending thoracic aorta at the level of the diaphragm measures 3.1 x 2.9 cm. ??There is no evidence of aortic dissection. ??Normal three-vessel arch is identified. ??The great vessels appear to be widely patent and within normal limits. ??The celiac artery is widely patent. ??The pulmonary arteries appear to be within normal limits. ??There is no evidence of pulmonary embolism. Procedure Note Osmin Crenshaw MD - 06/08/2022 EXAM: CTA CHEST W CONTRAST CLINICAL HISTORY: Thoracic aortic aneurysm (TAA), known, follow up COMPARISON: CT angiography of the chest dated 06/08/2021. TECHNIQUE: CT images were then obtained using cardiac pitch with cardiac gating after intravenous infusion of [address] images were sent to a separate 3-D workstation for CT angiographic reconstructions. FINDINGS: Postsurgical changes/Lines: No postsurgical changes or lines are identified in the chest. Mediastinum and renetta: No mass. No adenopathy. Heart: The heart size is within normal limits. No pericardial effusion is identified. There is coronary artery atherosclerosis. Aorta and vascular: For complete description of vascular structures, please see angiogram findings. Lungs, airways and pleural spaces: There is old granulomatous disease. Calcified pleural plaques are again noted bilaterally compatible with asbestos related pleural disease. There is a stable 5 mm nodule in the medial right upper lobe compatible with benign pulmonary nodule. The lungs are otherwise clear. No confluent infiltrates or effusions are identified. Chest wall: Unremarkable. No axillary adenopathy. Upper abdomen: Unremarkable. Osseous structures: Unremarkable. CT ANGIOGRAM FINDINGS: There is thoracic aortic atherosclerosis. The ascending thoracic aorta at the level of the sinus of Valsalva measures 5.0 x 4.7 x 5.1 cm. The ascending thoracic aorta at the level of the sinotubular junction measures 5.2 x 4.6 cm. The maximum dimension of the ascending thoracic aorta measures 5.2 x 4.9 cm. The thoracic aorta at the level of the mid arch measures 3.9 x 3.7 cm. The proximal descending thoracic aorta measures 3.7 x 3.5 cm. The mid descending thoracic aorta measures 3.5 x 3.5 cm. The descending thoracic aorta at the level of the diaphragm measures 3.1 x 2.9 cm. There is no evidence of aortic dissection. Normal three-vessel arch is identified. The great vessels appear to be widely patent and within normal limits. The celiac artery is widely patent. The pulmonary arteries appear to be within normal limits. There is no evidence of pulmonary embolism. IMPRESSION: 1. Stable to minimal increase in size of 5.2 cm ascending thoracic aortic aneurysm. 2. Atherosclerosis. 3. Asbestos related pleural disease. Electronically signed by: Osmin Crenshaw M.D. Kali Reddy MD IMG CT PROCEDURES Final Re sult * POCT lipid panel (06/08/2021 11:10 AM CDT) Cholesterol, POC <100 mg/dL HDL, POC 31 mg/dL Triglycerides, POC 84 mg/dL LDL Cholesterol POC 0.1 mg/dL Capillary blood 06/08/2021 1 1:10 AM CDT Kali Reddy MD POINT OF CARE TEST ORDERAB LES Final Result documented in this encounter Visit Diagnoses Diagnosis Ascending aortic aneurysm (HCC)- Primary Thoracic aneurysm without mention of rupture Pure hypercholesterolemia Ascending aortic aneurysm (HCC) Thoracic aneurysm without mention of rupture documented in this encounter Discontinued Medications Medication Sig Discontinue Reason Start Date End Da te aspirin 81 mg enteric coated tablet Take 1 tablet by mouth once daily 09/06/2020 06/08/2021 losartan (COZAAR) 50 mg tablet Take 1 tablet (50 mg total) by mouth daily Reorder 05/26/2020 06/08/2021 metoprolol XL (TOPROL-XL) 50 mg extended release tablet Take 1 tablet (50 mg total) by mouth daily Reorder 05/26/2020 06/08/2021 documented as of this encounter Care Teams Box Inspector Relationship Specialty Start Date End Date Noemi Willis NP PCP - General 06/19/18 06/24/23 Kali Reddy MD Consulting Physician Cardiology 05/19/19 documented as of this encounter
--- OUTSIDE RECORDS SUMMARY | 2024-09-29 22:10 | XMS_ITS | Encounter Summary ---
Author Organization [facility] Healthcare Address [address] [place] [address] Care Team Providers Care Lithograph Printer Name Role Phone Kali Reddy MD Unavailable Keaton Lynn MD Unavailable [phone] Radha Lozada MD Primary Care Provider [phone] Reason for Visit * Auth/Cert (Routine) Specialty Diagnoses / Procedures Referred By Contac t Referred To Contact Diagnoses Aneurysm of ascending aorta without rupture (HCC) Aneurysm of ascending aorta without rupture (HCC) [I71.21] Procedures NV -AORT GRF W/CARD BYP F/AORTIC DS OTH/THN DSJ REPLACEMENT OF ASCENDING AORTA Referral ID Status Reason Start Date Expiration Date Visits Re quested Visits Authorized [id number] 1 1 Encounter Details Date Type Department Care Team (Late st Contact Info) Description 07/10/2023 12:50 PM CDT - 07/10/2023 5:40 PM CDT Surgery [facility] Operating Room [address] [place] [address] Keaton Lynn MD [address] [facility] [address] [place] [address] Tissue Composite Root Replacement and Hemiarch Replacement Surgery Details Date/Time Status Location OR Service Patient Class Case Class Case Type Trauma Case? 07/10/2023 12:50 PM Posted [facility] OPERATING ROOM OR 02 Cardiothoracic Surgery Admit Elective Panel 1 Procedure LRB Anes Op Region Wound Class Comments Tissue Composite Root Replac ement and Hemiarch Replacement N/A General Chest Class I - Clean Surgeon Surgeon Role Service Panel Keaton Lynn MD Primary Cardiothoracic 1 documented in this encounter Social History Tobacco Use Types Packs/Day Years Used Date Smoking Tobacco: Never Smokeless Tobacco: Never Alcohol Use Standard Drinks/Week Comments Yes 0 (1 standard drink = 0.6 oz pur e alcohol) Socially AUDIT-C Answer Date Recorded Q1: How often do you have a drink containing alc ohol? 2-4 times a month 07/10/2023 Q2: How many drinks containi ng alcohol do you have on a typical day when you are drinking? 1 or 2 07/10/2023 Q3: How often do you have si x or more drinks on one occasion? Less than monthly 07/10/2023 Sex and Gender Information Value Date Recorded Sex Assigned at Not on file Legal Sex Male 12:03 PM BI TRI OPERATOR Gender Identity Not on file Sexual Orientation Not on file documented as of this encounter Last Filed Vital Signs Vital Sign Reading Time Taken Comments Blood Pressure 139/81 07/10/2023 10:02 AM CDT Pulse 66 07/10/2023 5:30 PM CDT Temperature 36.9 ??C (98.4 ??F) 07/10/2023 1 0:02 AM CDT Respiratory Rate 12 07/10/2023 5:30 PM CDT Oxygen Saturation 100% 07/10/2023 5:30 PM CDT Inhaled Oxygen Concentration - - Weight 111.2 kg (245 lb 2.4 oz) 07/10/2023 9:52 AM CDT Height 182.9 cm (6') 07/10/2023 [...] is primarily with heavy lifting. States his mexican food cook advised that he not lift more than [...] supplement you enjoyed during your stay at [facility]. Some examples of nutrition supplements include [...] Center 08/16/2023 9:45 AM Keaton Lynn MD [facility] [id number] PSA 05/21/2024 9:15 AM [facility]-[address] [facility] Main 05/21/2024 10:30 AM Kali Reddy MD [facility] CAR 200 Specialty Contact Information for Follow-ups [facility] Home Care Services Specialty: Home Health and Hospice [address] [address] Next Steps: Follow up Questions: Service Line: [...] Referral Status: External - All Visits Complete [facility] Cardiopulmonary Rehab [address] [place] [id number] Next Steps: Follow up Questions: Please select the performing region: External Order To loc/pos: [facility] Cardiopulmonary Rehab Select a phase: Phase 2 [...] supplement you enjoyed during your stay at [facility]. Some examples of nutrition supplements include [...] daily for 7 days 7 tablet/capsule 07/14/2023 furosemide (LASIX) 20 mg tablet Take 1 [...] in this encounter Progress Notes * Sarahy Rahman PA - 07/13/2023 4:23 PM CDT Cardiothoracic [...] 93 % Cardiac Rhythm: sinus I/O: Date 07/12/23699 - 07/13/23 0659 07/13/23 07 - 07/14/23 0659 Shift 3183-0869 1361-3012 24 Hour Total 8706-6073 9323-1442 24 Hour Total INTAKE P.O. 500 500 [...] Discussed with CARLY Robles 07/13/2023 * Rita WoodsAlvarez, PT - 07/13/2023 2:38 PM CDT Physical [...] (from Physical Therapy) Active Problems Problem: PT Mis Start Date: 07/11/23 Goal Start Date Expected End Date End Date PT [facility] 1 07/11/23 08/03/23 -- Goal Details: Independent bed mobility and transfers adhering to sternal precautions 100% of the time. Goal Start Date Expected End Date End Date PT [facility] 2 07/11/23 08/03/23 -- Goal Details: Pt amb 360ft with least restrictive device level surfaces mod indep or indep. Goal Start Date Expected End Date End Date PT [facility] 3 07/11/23 08/03/23 -- Goal Details: Pt amb up/down curb step mod indep or indep and up/down 3 steps with single HR mod indep or indep with good dyn stand balance and/or low fall risk on Villarreal balance scale. Goal Start Date Expected End Date End Date PT [facility] 4 07/11/23 08/03/23 -- Goal Details: Pt to apply sternal precautions independently without cueing from PT and display goodknowledge of cardiac HEP for optimal healing and functional recovery. * Cyrus Mackey EP-C - 07/13/2023 9:50 AM CDT Inpatient Cardiac Rehab Education Patient Information Patient Name: Judi Nolasco : 1945 Room/Bed: [place] [address] Insurance: Medicare Traditional + [facility] Progress Note Sound Tester: JOSSELINE Alejandra Date: 07/13/2023 Referring Diagnosis for Cardiac Rehab - S/P Aortic Valve Replacement Education Provided Explained my role as a Cardiac Rehab Navigator (CRN). Provided Cardiac Rehab education to patient. Family was not present. Patient was provided with Cardiac Rehab education folder as well as a [facility] Heart Education booklet. Risk Factors: HTN, HLD, [...] fats)and exercise. Advised patient to consult their women's studies lecturer, nurse, and/or physician if they have any questions about their diet/nutrition. Cardiac Rehab: Gave patient options of facilities for Outpatient Cardiac Rehab (OCR) in their community. Explained OCR program. Patient expressed knowledge towards local OCR program - patient prefers [facility] in [place], [place]. Stressed the importance/benefits of incorporating regular [...] working towards eventually trying to reach the [employer] recommendations in regards to exercise: [...] when it would be appropriate to call Tank House Supervisor's office, go to the ER, or call 911. Insurance Coverage: Briefly explained general insurance coverage for OCR, but assured patient that OCR facility will usually call insurance and inform patient of more of an approximate coverage. Post-Discharge: Explained process between discharge from hospital, and getting set up in an OCR program - follow upwith Tank House Supervisor, CRN follow up calls, OCR program contact. Conclusion Patient seems likely to participate in OCR. Reassured patient of importance and health care provider support of OCR. Patient verbalized understanding of education, and all questions were answered to the best of my ability. Will complete order for OCR to be sent to Tank House Supervisor. Thank you for allowing us to commercial lending assistant in the care of this patient, please don't hesitate to contact the Cardiac Rehab Navigator office with any questions: [phone]. * Monie Velasquez COTA - 07/13/2023 6:07 [...] at 07/13/2023 1:37 PM CDT * Sarahy Rahman, CARLY - 07/12/2023 1:32 PM CDT Cardiothoracic Surgery [...] Cardiac Rhythm: sinus I/O: Date 07/11/23699 - 07/12/2365807/12/23699 - 07/13/23 0659 Shift 3744-04221858 24 Hour Total 2616-6738 6984-4251 24 Hour Total INTAKE P.O. 700 700 [...] - PT/OT CARLY Francis 07/12/2023 * Devi Corrales DPT - 07/12/2023 9:34 AM CDT Physical [...] (from Physical Therapy) Active Problems Problem: PT [facility] Start Date: 07/11/23 Goal Start Date Expected End Date End Date PT [facility] 1 07/11/23 08/03/23 -- Goal Details: Independent bed mobility and transfers adhering to sternal precautions 100% of the time. Goal Start Date Expected End Date End Date PT [facility] 2 07/11/23 08/03/23 -- Goal Details: Pt amb 360ft with least restrictive device level surfaces mod indep or indep. Goal Start Date Expected End Date End Date PT [facility] 3 07/11/23 08/03/23 -- Goal Details: Pt amb up/down curb step mod indep or indep and up/down 3 steps with single HR mod indep or indep with good dyn stand balance and/or low fall risk on Villarreal balance scale. Goal Start Date Expected End Date End Date PT [facility] 4 07/11/23 08/03/23 -- Goal Details: Pt to apply sternal precautions independently without cueing from PT and display goodknowledge of cardiac HEP for optimal healing and functional recovery. Devi Corrales DPT * Ron MonieMAGDI hinton - 07/12/2023 6:15 AM CDT Occupational Therapy [...] chloride 0.9%, 0.5-20 mL, intra-catheter, Q8H GINNA Continuous Infusions: sodium chloride 0.9%, 10 mL/hr [...] Date: 07/09/23 Bowel Sounds (All Quadrants): Hypoactive Jules Scale Score: 19 Skin Integrity: Surgical incision [...] Carbohydrate Diet effective now Question Answer Comment ([facility]) Diet type Restricted Fat / Sodium Restriction: [...] supplement you enjoyed during your stay at [facility]. Some examples of nutrition supplements include Glucerna, Ensure, Boost, or a homemade high protein and/or calorie drink. It is recommended to continue drinking two supplements each day for [address],LD * Kalen Rivera, VIVEK - 07/11/2023 9:17 AM CDT Images from the original note were not included. [facility] CVR Daily Progress Note- Patient: Judi Nolasco : 1945 Age: 77 y.o. male Admitting Physician: Keaton Lynn MD Bed Maker: Izabella Alfaro MD, [facility] Shift: [facility] CVR AM Interval History: 500 LR x [...] 0700) PCWP: -- CO: 4.79 L/min (07/10 1730) CI: 2.06 L/min/m2 (07/10 1730) SVO2: -- Pacemaker Overdrive Pacing: -- Cardiac Rhythm: Normal sinus rhythm (07/11 09) Pacer Mode: -- @ECMOFLOWSHEET@ NPPV Mode: CPAP (07/10/23 1900) FiO2 (%): 40 % O2 Del Method: Nasal cannula FiO2 (%): 40 % O2 Flow Rate (L/min): 2 L/min O2 Therapy: Supplemental oxygen (07/11/23 0900) O2 Del Method: Nasal cannula O2 Flow [...] in place with clear, yellow urine Skin: [place], warm, dry, midline sternal incision clean, dry, [...] Date 07/10/23 07 - 07/11/23 0659 07/11/23 0700 - 07/12/23 0659 Shift 3074-6401 6296-1936 24 Hour Total 0948-2067 8747-2552 24 Hour Total INTAKE P.O. 700 700 I.V.(mL/kg) 1734(15.6) 1417(12.7) 3151(28.3) Blood 861 861 IV Piggyback 300 300 Shift Total(mL/kg) 2895(26) 2117(19) 5012(45.1) OUTPUT Urine(mL/kg/hr) 850(0.6) 1195(0.9) 2045(0.8) 85 85 Blood 200 200 Chest Tube 130 320 450 110 110 Shift Total(mL/kg) 1180(10.6) 1515(13.6) 2695(24.2) 195(1.8) 195(1.8) NET 4015 790 4158 -195 -195 Weight (kg) 111.2 111.2 111.2 [...] Insufficiency Atelectasis Pleural Effusion MONIKA Extubated to MN overnight. Rested on CPAP. CXR with trace [...] 07/11/2023 9:05 AM CDT Physical Therapy Evaluation 07/11/23904 General Chart Reviewed Yes Session Type Evaluation [...] DME he needs, but owns none, (owns [employer] so has equipment there. 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 [...] Pain Interventions Repositioned Cognition Cognition Comments mild PAUMA, is belching a lot and does not [...] (S) pt must make anticipated progress to ma home. PT Frequency during current admission 3-5x/wk Treatment/Interventions during current admission Bed mobility;Compensatory technique education;Functional activity;Gait training;Therapeutic activity;Therapeutic exercise PT Equipment Recommended None (per pt has access to DME) Progress during current admission Slow progress, decreased activity tolerance PT Evaluation Complete Yes Multi-Disciplinary Problems (from Physical Therapy) Active Problems Problem: PT [facility] Start Date: 07/11/23 Goal Start Date Expected End Date End Date PT [facility] 1 07/11/23 08/03/23 -- Goal Details: Independent bed mobility and transfers adhering to sternal precautions 100% of the time. Goal Start Date Expected End Date End Date PT [facility] 2 07/11/23 08/03/23 -- Goal Details: Pt amb 360ft with least restrictive device level surfaces mod indep or indep. Goal Start Date Expected End Date End Date PT [facility] 3 07/11/23 08/03/23 -- Goal Details: Pt amb up/down curb step mod indep or indep and up/down 3 steps with single HR mod indep or indep with good dyn stand balance and/or low fall risk on Villarreal balance scale. Goal Start Date Expected End Date End Date PT [facility] 4 07/11/23 08/03/23 -- Goal [...] demonstrated understanding, and needs ongoing reinforcement * Rafi Baxterne, OT - 07/11/2023 6:59 AM CDT Occupational [...] for long distances. 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 [facility] CVR PM Progress Note- Patient: Judi Nolasco : 1945 Age: 77 y.o. male Admiting Physician: Keaton Lynn MD Bed Maker: Izabella Alfaro MD, [facility] Shift: [facility] CVR PM Interval History: - Arrived from [...] 0.9%, 10 mL/hr, Last Rate: 10 mL/hr (07/10/231735) sodium chloride 0.9%, 3-12 mL/hr PRN Meds: bisacodyL, 10 mg sodium chloride 0.9%, 30 mL dextrose, 125 mL HYDROmorphone, 0.2 mg, 0.2 mg at 07/11/23 0221 insulin lispro, 1-14 Units insulin regular, 2-14 Units ondansetron, 4 mg, 4 mg at 07/10/234 oxyCODONE, 5 mg, 5 mg at 07/11/23 0221 polyethylene glycol, 17 g potassium chloride, 20 mEq, Last Rate: 25 mL/hr at 07/10/23 171, 20 mEq at 07/10/23 171 sodium chloride 0.9%, 0.5-20 mL sodium chloride 0.9%, 10 mL/hr Date 07/10/23699 - 07/11/2365807/11/23 07 - 07/12/23 0659 Shift 4419-1357 2416-0935 24 Hour Total 5686-9781 8190-5066 24 Hour Total INTAKE I.V.(mL/kg) 1734(15.6) 1734(15.6) Blood 861 861 IV Piggyback 300 300 Shift Total(mL/kg) 2895(26) 2895(26) OUTPUT Urine(mL/kg/hr) 850(0.6) 1035 1885 Blood 200 200 Chest Tube 130 270 400 Shift Total(mL/kg) 1180(10.6) 1305(11.7) 2485(22.3) NET 1715 -1300 410 Weight (kg) 111.2 111.2 111.2 111.2 [...] glycol and bisacodyl suppository PRN. Glycemic control: [place] Protocol insulin gtt. Lab Results Component Value [...] this encounter H&P Notes * Kalen Rivera, DNP - 07/10/2023 5:27 PM CDT Images from the original note were not included. [facility] CVR History & Physical - Patient: Judi Nolasco : 1945 Age: 77 y.o. male Admitting Physician: Keaton Lynn MD Bed Maker: Izabella Alfaro MD, [facility] Shift: [facility] CVR AM HPI: 77 y.o. male presenting [...] Medical History: Diagnosis Date Arthritis Arthritis; Comments: [facility] 10/19/2015 - HX OTHER MEDICAL ascending aortic aneurysm; Comments: [facility] 10/19/2015 - Hypertension Hypertension Sleep [...] 1700) PCWP: -- CO: 4.55 L/min (07/10 163) CI: 1.96 L/min/m2 (07/10 163) SVO2: -- Pacemaker Overdrive Pacing: -- Cardiac [...] mL/hr Date 07/09/23699 - 07/10/23 0659(Not Admitted) 07/10/23 07 - 07/11/23 0659 Shift 5262-8976 3346-8630 24 Hour Total 6228-7773 9361-7489 24 Hour Total INTAKE I.V. 1636(14.7) 1636(14.7) Blood 861 861 IV Piggyback 300 300 Shift Total(mL/kg) 2797(25.2) 2797(25.2) OUTPUT Urine 500 500 Blood 200 200 Chest Tube 80 80 Shift Total(mL/kg) 780(7) 780(7) NET 2017 2017 Weight (kg) 111.2 111.2 111.2 LDA [...] 112* -- Recent Labs Lab Units 07/10/23 1626 07/10/23 [...] CT scans. KELLEY (07/10) Preserved biventricular function Arrives hemodynamically stabilized off [...] glycol and bisacodyl suppository PRN. Glycemic control: [place] Protocol insulin gtt. Lab Results Component Value [...] is primarily with heavy lifting. 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 This time was in addition to and separate from care provided by other practitioners on this day of service. * Laquita Parson NP - 07/10/2023 6:36 PM CDTAssociated Order(s): Critical Care Post-Procedure Diagnose(s): Aneurysm of ascending aorta without rupture (HCC) Critical Care Performed by: Laquita Parson NP Authorized by: Laquita Parson NP CRITICAL CARE: Team: [facility] CT Shift: PM Level of Billing: Subsequent [...] plan with the patient's team and other medical/oracle adf consultant staff. This time was in addition [...] by: Kalen Rivera DNP CRITICAL CARE: Team: [facility] CT Shift: AM Level of Billing: Critical [...] plan with the ICU team and other medical/oracle adf consultant staff, making frequent assessments and decisions [...] CDT 07/15/2023 1030 DC info sent to [facility] who have accepted patient. * Plan [...] patient can be seen sooner by [facility]. [facility] HH consult closed and no services set up at this time. * Incidental Note - Josie Coffey RN - 07/12/2023 3:16 PM CDT LUIS Initial Assessment Interview Note Information Obtained From: Patient (07/12/231513) Admission Source: home Impression: repair ascending aortic aneurysm Plan Includes: home with [facility]. [facility] ( [phone]) care has accepted patient. Primary Source of Transportation: Does the patient need discharge transport arranged?: No (07/12/231513) Health Insurance Coverage: Medicare Prescription Coverage: yes Pharmacy: [facility] [id number] [place] [address] Primary Care Provider: Radha Lozada MD Prior [...] a week How often do you attend voodoo or religion services?: More than 4 times per year Do you belong to any clubs or organizations such as voodoo groups, unions, fraternal [...] Screening Potential discharge needs include: Home Health: assisted (07/12/231513) Dialysis: Behavioral Health Services: Behavioral Health Services: No (07/12/231513) Patient expects to be Discharged to: Private residence, (07/12/23 0608) Additional Information: Lives at home with . 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 Discharge plan to return home with . Home health care orders received. [facility] home health care referrals sent via [facility]. Patient informed of accepting home health care agencies and has chosen [facility] home health care. Patient's Identified Problem/Goal Problem: [...] Collaboration with patient, MD, direct care nurse, Cryptographic Machine Operator, and other members of the health care team to assure needed interventions completed. 2. Return patient to optimal level of self-care post discharge. 3. Chemistry Associate will follow for Discharge Planning - interventions as needed 4. Anticipated level of care at discharge 5. Planned Discharge Disposition Josie Coffey RN * Plan of Care - Sandra Villalpando RN - 07/12/2023 2:55 PM CDT [facility] Home Health consult received. [facility] Home Care agency accepted patient with projected start of care 07/20/2023 with completed referral and discharge 07/15/2023. Josie SMITH, notified. * Plan of Care - Casasndra Solano RN - 07/12/2023 10:43 AM CDT [...] in bed, pulling at gown and lines. Deidre noted to be pulled out. Emani JOHNSON notified, deidre GALLEGOS'd, introducer remained. Doses of oxy and dilaudid [...] by anesthesia using cerebral oximetry and a [place]-Jered catheter, and prepped and draped in sterile fashion. KELLEY define the presence of severe aortic regurgitation. A mini sternotomy was completed t'alexandr the third interspace. A pericardial cradle was [...] junction and transected. Direct ostial cold antegrade KBC cardioplegia was given with a quick diastolic [...] signed by: Chao Rodríguez M.D. Kalen Rivera [facility] IMG XR PROCEDURES Fi nal Result * eGFR (07/14/2023 1:34 AM CDT) eGFR 91 mL/min/1. 73 m2 [facility] Comment: Interpretive Data Reference Interval Normal ?>/= [...] CDT 07/14/2023 1:34 AM CDT Kalen Rivera [facility] LAB BLOOD ORDERABLES Final Result Performing Organization Address City/[facility]/ZIP Co de Phone Number [facility] [address] [place] [address] * Magnesium (07/14/2023 1:34 AM CDT) Pathologist [facility] Magnesium 2.2 1.4 - 2.5 mg/dL [facility] Blood 07/14/2023 1:34 AM CDT 07/14/2023 1:34 AM CDT Kalen Rivera [facility] LAB BLOOD ORDERABLES Final Result Performing Organization Address [facility] de Phone Number [facility] [address] [place] [address] * (ABNORMAL) Renal function panel (07/14/2023 1:34 AM CDT) Pathologist [facility] Sodium 136 135 - 145 mmol/L [facility] Potassium, pl 3.9 3.3 - 4.9 mmol/L [facility] Chloride 98 97 - 110 mmol/L [facility] CO2 27 22 - 32 mmol/L [facility] Anion gap 11 2 - 15 mmol/L [facility] BUN 19 6 - 25 mg/dL [facility] Creatinine 0.81 0.80 - 1.30 mg/dL [facility] Glucose 105 70 - 199 mg/dL [facility] Comment: Interpretive Data Fasting glucose >/= 126 [...] 2022. Calcium 8.3(L) 8.5 - 10.3 mg/dL [facility] Phosphorus, pl 2.3 2.3 - 4.5 mg/dL [facility] Albumin 3.2(L) 3.5 - 5.0 g/dL [facility] Blood 07/14/2023 1:34 AM CDT 07/14/2023 1:34 AM CDT us Kalen Rivera [facility] LAB BLOOD ORDERABLES Final Result [facility] [address] [place] [address] * (ABNORMAL) CBC without differential (07/14/2023 1:34 AM CDT) WBC 11.1(H) 3.8 - 9.9 K/cumm [facility] [facility] Hgb 10.4(L) 13.0 - 17.5 g/dL [facility] Hct 31.1(L) 38.9 - 50.3 % [facility] Plt 145(L) 150 - 400 K/cumm [facility] MPV 9.5 9.1 - 12.3 fL [facility] RBC 3.14(L) 4.30 - 5.80 M/cumm [facility] MCV 99.0(H) 81.3 - 96.4 fL [facility] MCH 33.1 27.1 - 33.3 pg [facility] MCHC 33.4 32.3 - 35.7 g/dL [facility] RDW CV 13.4 11.1 - 14.9 % [facility] RDW SD 48.2(H) 35.7 - 48.1 fL [facility] NRBC abs 0.02(H) 0.00 - 0.01 K/cumm [facility] Blood 07/14/2023 1:34 AM CDT 07/14/2023 1:34 AM CDT Kalen Rivera [facility] LAB BLOOD ORDERABLES Final Result Performing Organization Address City/[facility]/ZIP Co de Phone Number [facility] [address] [place] [address] * (ABNORMAL) Calcium, ionized (07/14/2023 1:31 AM CDT) Calcium, Ionized 4.33(L) 4.50 - 5.10 mg/dL [facility] Blood 07/14/2023 1:31 AM CDT 07/14/2023 1:31 AM CDT [place] Rivera [facility] LAB BLOOD ORDERABLES Final Result Performing Organization Address [facility] de Phone Number [facility] [address] [place] [address] * XR Chest 1 View - Portable [...] CDT) eGFR 89 mL/min/1. 73 m2 [facility] Comment: Interpretive Data Reference Interval Normal ?>/= [...] Rivera DNP LAB BLOOD ORDERABLES Final Result [facility] [address] [place] [address] * Magnesium (07/13/2023 12:49 AM CDT) [facility] Magnesium 1.9 1.4 - 2.5 mg/dL [facility] Blood 07/13/2023 12:4 9 AM CDT 07/13/2023 1:06 AM CDT Kalen Rivera [facility] LAB BLOOD ORDERABLES Final Result Performing Organization Address City/[facility]/ZIP Co de Phone Number [facility] [address] [facility] [place] [address] * (ABNORMAL) Calcium, ionized (07/13/2023 12:49 AM CDT) [facility] Calcium, Ionized 4.46(L) 4.50 - 5.10 mg/dL [facility] Blood 07/13/2023 12:4 9 AM CDT 07/13/2023 1:03 AM CDT Kalen Rivera [facility] LAB BLOOD ORDERABLES Final Result Performing Organization Address City/[facility]/ZIP Co de Phone Number [facility] [address] [facility] [place] [address] * (ABNORMAL) Renal function panel (07/13/2023 12:49 AM CDT) [facility] Sodium 132(L) 135 - 145 mmol/L [facility] Potassium, pl 3.8 3.3 - 4.9 mmol/L [facility] Chloride 97 97 - 110 mmol/L [facility] CO2 26 22 - 32 mmol/L [facility] Anion gap 9 2 - 15 mmol/L [facility] BUN 17 6 - 25 mg/dL [facility] Creatinine 0.87 0.80 - 1.30 mg/dL [facility] Glucose 128 70 - 199 mg/dL [facility] Comment: Interpretive Data Fasting glucose >/= 126 [...] 2022. Calcium 8.5 8.5 - 10.3 mg/dL [facility] Phosphorus, pl 1.6(L) 2.3 - 4.5 mg/dL [facility] Albumin 3.4(L) 3.5 - 5.0 g/dL [facility] Blood 07/13/2023 12:4 9 AM CDT 07/13/2023 1:06 AM CDT Kalen Rivera [facility] LAB BLOOD ORDERABLES Final Result [facility] [address] [place] [address] * (ABNORMAL) CBC without differential (07/13/2023 12:49 AM CDT) WBC 10.4(H) 3.8 - 9.9 K/cumm [facility] Hgb 10.4(L) 13.0 - 17.5 g/dL [facility] Hct 30.1(L) 38.9 - 50.3 % [facility] Plt 115(L) 150 - 400 K/cumm [facility] MPV 9.6 9.1 - 12.3 fL [facility] RBC 3.13(L) 4.30 - 5.80 M/cumm [facility] MCV 96.2 81.3 - 96.4 fL [facility] MCH 33.2 27.1 - 33.3 pg [facility] MCHC 34.6 32.3 - 35.7 g/dL [facility] RDW CV 13.2 11.1 - 14.9 % [facility] RDW SD 45.8 35.7 - 48.1 fL [facility] NRBC abs 0.00 0.00 - 0.01 K/cumm [facility] Blood 07/13/2023 12:4 9 AM CDT 07/13/2023 1:07 AM CDT Kalen Rivera DNP LAB BLOOD ORDERABLES Final Result Performing Organization Address [facility]/ZIP Co de Phone Number [facility] [address] [facility] [place] [address] * POCT glucose (07/12/2023 12:07 PM CDT) Glucose, POC 105 70 - 140 mg/dL [facility] Comment: For Glucose values <35 mg/dl when Hematocrit is >60 mg/dl,the test may not accurately detect significant hypoglycemia,and testing in the Laboratory should be considered if clinically indicated. Blood 07/12/2023 12:0 7 PM CDT 07/12/2023 12:07 PM CDT Keaton Lynn MD LAB POCT ORDERABLES - DE VICE Final Result Performing Organization Address [facility] Co de Phone Number [facility] [address] [facility] [place] [address] * POCT glucose (07/12/2023 8:20 AM CDT) Glucose, POC 118 70 - 140 mg/dL [facility] Comment: For Glucose values <35 mg/dl when Hematocrit is >60 mg/dl,the test may not accurately detect significant hypoglycemia,and testing in the Laboratory should be considered if clinically indicated. Blood 07/12/2023 8:20 AM CDT 07/12/2023 8:20 AM CDT Keaton Lynn MD LAB POCT ORDERABLES - DE VICE Final Result Performing Organization Address City/[facility]/ZIP Co de Phone Number [facility] [address] [place] [address] * XR Chest 1 View - Portable [...] signed by: Kilo Rosario M.D. Kalen Rivera DNP IMG XR PROCEDURES Fi nal Result * ECG 12 lead (07/12/2023 2:01 AM CDT) 07/12/2023 2:01 AM CDT Narrative [facility] - 07/12/2023 5:01 PM CDT Vent Rate: 87 bpm RR Interval: 683 msec NV Interval: 126 msec QRS Duration: 100 msec QT Interval: 373 msec QTC Interval: 418 msec P-R-T Thornton: 0 - -28 - 38 degrees IMPRESSION: SINUS RHYTHM WITH SINUS ARRHYTHMIA BORDERLINE LEFT AXIS DEVIATION BORDERLINE ECG Electronically Signed By: Rory Dowling MD [facility] us Kathryn Richey [employer] ECG ORDERABLES Final Res ult [facility] * eGFR (07/12/2023 12:25 AM CDT) eGFR 76 mL/min/1. 73 m2 [facility] Comment: Interpretive Data Reference Interval Normal ?>/= [...] CDT 07/12/2023 12:39 AM CDT Kalen Rivera [facility] LAB BLOOD ORDERABLES Final Result Performing Organization Address City/[facility] Co de Phone Number [facility] [address] [facility] [place] [address] * Magnesium (07/12/2023 12:25 AM CDT) [facility] Magnesium 2.4 1.4 - 2.5 mg/dL [facility] Comment:Reviewed Blood 07/12/2023 12:2 5 AM CDT 07/12/2023 12:39 AM CDT Kalen Rivera [facility] LAB BLOOD ORDERABLES Final Result Performing Organization Address [facility] Co de Phone Number [facility] [address] [facility] [place] [address] * Calcium, ionized (07/12/2023 12:25 AM CDT) [facility] Calcium, Ionized 4.59 4.50 - 5.10 mg/dL [facility] Blood 07/12/2023 12:2 5 AM CDT 07/12/2023 12:33 AM CDT Kalen Rivera [facility] LAB BLOOD ORDERABLES Final Result Performing Organization Address [facility] Co de Phone Number [facility] [address] [place] [address] * (ABNORMAL) Renal function panel (07/12/2023 12:25 AM CDT) [facility] Sodium 133(L) 135 - 145 mmol/L [facility] Potassium, pl 4.2 3.3 - 4.9 mmol/L [facility] Chloride 98 97 - 110 mmol/L [facility] CO2 25 22 - 32 mmol/L [facility] Anion gap 10 2 - 15 mmol/L [facility] BUN 20 6 - 25 mg/dL [facility] Creatinine 1.02 0.80 - 1.30 mg/dL [facility] Glucose 119 70 - 199 mg/dL [facility] Comment: Interpretive Data Fasting glucose >/= 126 [...] 2022. Calcium 8.6 8.5 - 10.3 mg/dL [facility] Phosphorus, pl 2.7 2.3 - 4.5 mg/dL [facility] Albumin 3.2(L) 3.5 - 5.0 g/dL [facility] Blood 07/12/2023 12:2 5 AM CDT 07/12/2023 12:39 AM CDT Kalen Rivera DNP LAB BLOOD ORDERABLES Final Result [facility] [address] [place] [address] * (ABNORMAL) CBC without differential (07/12/2023 12:25 AM CDT) WBC 12.0(H) 3.8 - 9.9 K/cumm [facility] Hgb 11.0(L) 13.0 - 17.5 g/dL [facility] Hct 32.8(L) 38.9 - 50.3 % [facility] Plt 129(L) 150 - 400 K/cumm [facility] MPV 9.9 9.1 - 12.3 fL [facility] RBC 3.32(L) 4.30 - 5.80 M/cumm [facility] MCV 98.8(H) 81.3 - 96.4 fL [facility] MCH 33.1 27.1 - 33.3 pg [facility] MCHC 33.5 32.3 - 35.7 g/dL [facility] RDW CV 13.4 11.1 - 14.9 % [facility] RDW SD 48.3(H) 35.7 - 48.1 fL [facility] NRBC abs 0.00 0.00 - 0.01 K/cumm [facility] Blood 07/12/2023 12:2 5 AM CDT 07/12/2023 12:40 AM CDT Kalen Rivera DNP LAB BLOOD ORDERABLES Final Result Performing Organization Address [facility] Co de Phone Number [facility] [address] [place] [address] * POCT glucose (07/11/2023 9:24 PM CDT) Pathologist [facility] Glucose, POC 124 70 - 140 mg/dL [facility] Comment: For Glucose values <35 mg/dl when Hematocrit is >60 mg/dl,the test may not accurately detect significant hypoglycemia,and testing in the Laboratory should be considered if clinically indicated. Blood 07/11/2023 9:24 PM CDT 07/11/2023 9:24 PM CDT Keaton Lynn MD LAB POCT ORDERABLES - DE VICE Final Result Performing Organization Address [facility] Co de Phone Number [facility] [address] [place] [address] * eGFR (07/11/2023 8:25 PM CDT) eGFR 83 mL/min/1. 73 m2 [facility] Comment: Interpretive Data Reference Interval Normal ?>/= [...] 07/11/2023 8:30 PM CDT us Kathryn Richey [employer] LAB BLOOD ORDERABLES Harriet l Result Performing Organization Address City/[facility]/ZIP Co de Phone Number [facility] [address] [place] [address] * Magnesium (07/11/2023 8:25 PM CDT) Magnesium 1.9 1.4 - 2.5 mg/dL [facility] Blood 07/11/2023 8:25 PM CDT 07/11/2023 8:30 PM CDT Kathryn Richey [employer] LAB BLOOD ORDERABLES Hariret l Result [facility] [address] [place] [address] * (ABNORMAL) Renal function panel (07/11/2023 8:25 PM CDT) Sodium 133(L) 135 - 145 mmol/L [facility] Potassium, pl 4.2 3.3 - 4.9 mmol/L [facility] Chloride 99 97 - 110 mmol/L [facility] CO2 27 22 - 32 mmol/L [facility] Anion gap 7 2 - 15 mmol/L [facility] BUN 20 6 - 25 mg/dL [facility] Creatinine 0.94 0.80 - 1.30 mg/dL [facility] Glucose 119 70 - 199 mg/dL [facility] Comment: Interpretive Data Fasting glucose >/= 126 [...] 2022. Calcium 8.7 8.5 - 10.3 mg/dL [facility] Phosphorus, pl 2.9 2.3 - 4.5 mg/dL [facility] Albumin 3.3(L) 3.5 - 5.0 g/dL [facility] Blood 07/11/2023 8:25 PM CDT 07/11/2023 8:30 PM CDT Kathryn Richey NP LAB BLOOD ORDERABLES Harriet lim Result [facility] [address] [place] [address] * POCT glucose (07/11/2023 5:16 PM CDT) [facility] Glucose, POC 114 70 - 140 mg/dL [facility] Comment: For Glucose values <35 mg/dl when Hematocrit is >60 mg/dl,the test may not accurately detect significant hypoglycemia,and testing in the Laboratory should be considered if clinically indicated. Blood 07/11/2023 5:16 PM CDT 07/11/2023 5:16 PM CDT us Keaton Lynn MD LAB POCT ORDERABLES - DE VICE Final Result Performing Organization Address [facility] Co de Phone Number [facility] [address] Department [place], [place] [id number] * POCT glucose (07/11/2023 11:10 AM CDT) Glucose, POC 138 70 - 140 mg/dL [facility] Comment: For Glucose values <35 mg/dl when Hematocrit is >60 mg/dl,the test may not accurately detect significant hypoglycemia,and testing in the Laboratory should be considered if clinically indicated. Blood 07/11/2023 11:1 0 AM CDT 07/11/2023 11:10 AM CDT us Keaton Lynn MD LAB POCT ORDERABLES - DE VICE Final Result Performing Organization Address [facility] Co de Phone Number [facility] [address] [place], [place] [id number] * Lactate (07/11/2023 11:06 AM CDT) [facility] Lactate 1.4 0.7 - 2.0 mmol/L [facility] Blood 07/11/2023 11:0 6 AM CDT 07/11/2023 11:15 AM CDT us Kalen Rivera DNP LAB BLOOD ORDERABLES Final Result Performing Organization Address City/[facility]/ZIP Co de Phone Number [facility] [address] [place], [place] [id number] * Critical Care (07/11/2023 9:27 AM CDT) Narrative Kalen Rivera DNP - 07/11/2023 9:27 AM CDT Kalen Rivera DNP ? 07/11/2023 12:23 PM Critical Care Performed by: Kalen Rivera DNP Authorized by: Kalen Rivera DNP ?? CRITICAL CARE: ??Team: ??[facility] CT ??Shift: ??AM ??Level of Billing: ??Subsequent [...] plan with the patient's team and other medical/oracle adf consultant staff. This time was in addition to and separate from care provided by other practitioners on this day of service. ?? Kalen Rivera DNP IN CLINIC/BEDSIDE OR DERABLES Final Result * (ABNORMAL) POCT glucose (07/11/2023 7:53 AM CDT) Glucose, POC 141(H) 70 - 140 mg/dL [facility] Comment: For Glucose values <35 mg/dl when Hematocrit is >60 mg/dl,the test may not accurately detect significant hypoglycemia,and testing in the Laboratory should be considered if clinically indicated. Blood 07/11/2023 7:53 AM CDT 07/11/2023 7:53 AM CDT Keaton Lynn MD LAB POCT ORDERABLES - DE VICE Final Result [facility] [address] [place] [address] * POCT glucose (07/11/2023 6:15 AM CDT) Glucose, POC 117 70 - 140 mg/dL [facility] Comment: For Glucose values <35 mg/dl when Hematocrit is >60 mg/dl,the test may not accurately detect significant hypoglycemia,and testing in the Laboratory should be considered if clinically indicated. Blood 07/11/2023 6:15 AM CDT 07/11/2023 6:15 AM CDT us Keaton Lynn MD LAB POCT ORDERABLES - DE VICE Final Result [facility] [address] [place] [address] * XR Chest 1 View - Portable - in AM (07/11/2023 5:53 AM CDT) Anatomical Region Laterality Modality Body, Chest N/A Computed Radiogr aphy 07/11/2023 8:15 AM CDT Impressions 07/11/2023 8:15 AM CDT There has been interval extubation and gastric tube removal. ??A right internal jugular [place] catheter has been removed. ??A right internal [...] gastric tube removal. A right internal jugular [place] catheter has been removed. A right internal [...] Electronically signed by: Bakari Cabral M.D. Kalen Rivera DNP IMG XR PROCEDURES Fi nal Result * POCT glucose (07/11/2023 4:32 AM CDT) Glucose, POC 133 70 - 140 mg/dL [facility] Comment: For Glucose values <35 mg/dl when Hematocrit is >60 mg/dl,the test may not accurately detect significant hypoglycemia,and testing in the Laboratory should be considered if clinically indicated. Blood 07/11/2023 4:32 AM CDT 07/11/2023 4:32 AM CDT Keaton Lynn MD LAB POCT ORDERABLES - DE VICE Final Result Performing Organization Address [facility] Co de Phone Number [facility] [address] [place], [place] [id number] * (ABNORMAL) POCT glucose (07/11/2023 2:39 AM CDT) Glucose, POC 162(H) 70 - 140 mg/dL [facility] Comment: For Glucose values <35 mg/dl when Hematocrit is >60 mg/dl,the test may not accurately detect significant hypoglycemia,and testing in the Laboratory should be considered if clinically indicated. Blood 07/11/2023 2:39 AM CDT 07/11/2023 2:39 AM CDT Keaton Lynn MD LAB POCT ORDERABLES - DE VICE Final Result Performing Organization Address [facility] Co de Phone Number [facility] [address] [place] [address] * Prepare RBC (07/11/2023 1:47 AM CDT) Product code [id number] [facility] Unit Number [id number] 6-0 [facility] Product Blood Type OPOS [facility] Dispense Status RETURNED [facility] Product code [id number] [facility] Unit Number [id number] 4-I [facility] Product Blood Type OPOS [facility] Dispense Status RETURNED [facility] Product code [id number] [facility] [id number] 5-2 [facility] Product Blood Type OPOS [facility] Dispense Status RETURNED [facility] Product code [id number] [facility] Unit Number [id number] 7-* [facility] Product Blood Type OPOS [facility] Dispense Status RETURNED [facility] Blood 07/11/2023 1:47 AM CDT 07/11/2023 1:47 AM CDT us Keaton Lynn MD BLOOD BANK PRODUCT ORDER EMELYN Final Result [facility] [address] [place] [address] * eGFR (07/11/2023 12:52 AM CDT) eGFR 89 mL/min/1. 73 m2 [facility] Comment: Interpretive Data Reference Interval Normal ?>/= [...] CDT 07/11/2023 1:01 AM CDT Kalen Rivera [facility] LAB BLOOD ORDERABLES Final Result [facility] [address] [place] [address] * (ABNORMAL) Lactate (07/11/2023 12:52 AM CDT) Pathologist [facility] Lactate 3.1(H) 0.7 - 2.0 mmol/L [facility] Blood 07/11/2023 12:5 2 AM CDT 07/11/2023 12:58 AM CDT Laquita Parson [employer] LAB BLOOD ORDERABLES Harriet l Result Performing Organization Address [facility] Co de Phone Number [facility] [address] [place], [place] [id number] * Magnesium (07/11/2023 12:52 AM CDT) Pathologist [facility] Magnesium 2.1 1.4 - 2.5 mg/dL [facility] Blood 07/11/2023 12:5 2 AM CDT 07/11/2023 1:01 AM CDT Kalen Rivera [facility] LAB BLOOD ORDERABLES Final Result Performing Organization Address City/[facility] Co de Phone Number [facility] [address] [place], [place] [id number] * (ABNORMAL) Calcium, ionized (07/11/2023 12:52 AM CDT) Calcium, Ionized 4.39(L) 4.50 - 5.10 mg/dL [facility] Blood 07/11/2023 12:5 2 AM CDT 07/11/2023 12:58 AM CDT Kalen Rivera DNP LAB BLOOD ORDERABLES Final Result [facility] [address] [place] [address] * (ABNORMAL) Renal function panel (07/11/2023 12:52 AM CDT) [facility] Sodium 141 135 - 145 mmol/L [facility] Potassium, pl 4.6 3.3 - 4.9 mmol/L [facility] Chloride 107 97 - 110 mmol/L [facility] CO2 23 22 - 32 mmol/L [facility] Anion gap 11 2 - 15 mmol/L [facility] BUN 18 6 - 25 mg/dL [facility] Creatinine 0.87 0.80 - 1.30 mg/dL [facility] Glucose 176 70 - 199 mg/dL [facility] Comment: Interpretive Data Fasting glucose >/= 126 [...] 2022. Calcium 8.3(L) 8.5 - 10.3 mg/dL [facility] Phosphorus, pl 3.5 2.3 - 4.5 mg/dL [facility] Albumin 3.4(L) 3.5 - 5.0 g/dL [facility] Blood 07/11/2023 12:5 2 AM CDT 07/11/2023 1:01 AM CDT [place] Rivera [facility] LAB BLOOD ORDERABLES Final Result [facility] [address] [place] [address] * (ABNORMAL) CBC without differential (07/11/2023 12:52 AM CDT) WBC 8.7 3.8 - 9.9 K/cumm [facility] Hgb 10.8(L) 13.0 - 17.5 g/dL [facility] Hct 31.8(L) 38.9 - 50.3 % [facility] Plt 119(L) 150 - 400 K/cumm [facility] MPV 9.7 9.1 - 12.3 fL [facility] RBC 3.25(L) 4.30 - 5.80 M/cumm [facility] MCV 97.8(H) 81.3 - 96.4 fL [facility] MCH 33.2 27.1 - 33.3 pg [facility] MCHC 34.0 32.3 - 35.7 g/dL [facility] RDW CV 13.3 11.1 - 14.9 % [facility] RDW SD 47.7 35.7 - 48.1 fL [facility] NRBC abs 0.00 0.00 - 0.01 K/cumm [facility] Blood 07/11/2023 12:5 2 AM CDT 07/11/2023 1:01 AM CDT Kalen Rivera [facility] LAB BLOOD ORDERABLES Final Result [facility] [address] [place], [place] [id number] * Type and screen (07/11/2023 12:52 AM CDT) Chacorta, indirect Negative [facility] ABO Rh O Positive [facility] Blood 07/11/2023 12:5 2 AM CDT 07/11/2023 12:59 AM CDT Narrative [facility] - 07/11/2023 1:44 AM CDT Has the patient had Daratumumab or Isatuximab in the past 6 months?->Unknown Result [facility] Kalen Rviera [facility] LAB BLOOD BANK TEST ORDERABLES Final Result Performing Organization Address City/[facility]/ZIP Co de Phone Number [facility] [address] [facility] [place] [address] * (ABNORMAL) POCT glucose (07/11/2023 12:50 AM CDT) Glucose, POC 176(H) 70 - 140 mg/dL [facility] Comment: For Glucose values <35 mg/dl when Hematocrit is >60 mg/dl,the test may not accurately detect significant hypoglycemia,and testing in the Laboratory should be considered if clinically indicated. Blood 07/11/2023 12:5 0 AM CDT 07/11/2023 12:50 AM CDT Result [facility] Keaton Lynn MD LAB POCT ORDERABLES - DE VICE Final Result Performing Organization Address [facility] Co de Phone Number [facility] [address] [facility] [place] [address] * (ABNORMAL) POCT glucose (07/11/2023 12:08 AM CDT) Glucose, POC 147(H) 70 - 140 mg/dL [facility] Comment: For Glucose values <35 mg/dl when Hematocrit is >60 mg/dl,the test may not accurately detect significant hypoglycemia,and testing in the Laboratory should be considered if clinically indicated. Blood 07/11/2023 12:0 8 AM CDT 07/11/2023 12:08 AM CDT Result [facility] Keaton Lynn MD LAB POCT ORDERABLES - DE VICE Final Result Performing Organization Address [facility] Co de Phone Number [facility] [address] [place] [address] * (ABNORMAL) POCT glucose (07/10/2023 11:13 PM CDT) Glucose, POC 177(H) 70 - 140 mg/dL [facility] Comment: For Glucose values <35 mg/dl when Hematocrit is >60 mg/dl,the test may not accurately detect significant hypoglycemia,and testing in the Laboratory should be considered if clinically indicated. Blood 07/10/2023 11:1 3 PM CDT 07/10/2023 11:13 PM CDT Keaton Lynn MD LAB POCT ORDERABLES - DE VICE Final Result Performing Organization Address [facility] Co de Phone Number [facility] [address] [place] [address] * (ABNORMAL) POCT glucose (07/10/2023 8:36 PM CDT) Glucose, POC 163(H) 70 - 140 mg/dL [facility] Comment: For Glucose values <35 mg/dl when Hematocrit is >60 mg/dl,the test may not accurately detect significant hypoglycemia,and testing in the Laboratory should be considered if clinically indicated. Blood 07/10/2023 8:36 PM CDT 07/10/2023 8:36 PM CDT Keaton Lynn MD LAB POCT ORDERABLES - DE VICE Final Result Performing Organization Address City/[facility] Co de Phone Number [facility] [address] [place] [address] * Oxyhemoglobin, central venous (07/10/2023 8:32 PM CDT) Oxyhemoglobin, CV 72.8 % [facility] Comment: Interpretive Data No reference range established. Current interpretive data was last revised 2019. Blood 07/10/2023 8:32 PM CDT 07/10/2023 8:41 PM CDT Kalen Rivera [facility] LAB BLOOD ORDERABLES Final Result [facility] [address] [place] [address] * Critical Care (07/10/2023 6:36 PM CDT) Narrative Laquita Parson NP - 07/10/2023 6:36 PM CDT Laquita Parson NP ? 07/11/2023 ??3:32 AM Critical Care Performed by: Laquita Parson NP Authorized by: Laquita Parson NP ?? CRITICAL CARE: ??Team: ??[facility] CT ??Shift: ??PM ??Level of Billing: ??Subsequent [...] plan with the patient's team and other medical/oracle adf consultant staff. This time was in addition [...] laboratory results, and imaging Laquita Parson NP IN CLINIC/BEDSIDE ORDERAB LES Final Result * (ABNORMAL) POCT glucose (07/10/2023 6:34 PM CDT) Glucose, POC 155(H) 70 - 140 mg/dL [facility] Comment: For Glucose values <35 mg/dl when Hematocrit is >60 mg/dl,the test may not accurately detect significant hypoglycemia,and testing in the Laboratory should be considered if clinically indicated. Blood 07/10/2023 6:34 PM CDT 07/10/2023 6:34 PM CDT us Keaton Lynn MD LAB POCT ORDERABLES - DE VICE Final Result [facility] [address] [place] [address] * Critical Care (07/10/2023 6:04 PM CDT) Narrative Kalen Rivera DNP - 07/10/2023 6:04 PM CDT Kalen Rivera DNP ? 07/10/2023 ??6:56 PM Critical Care Performed by: Kalen Rivera DNP Authorized by: Kalen Rivera DNP ?? CRITICAL CARE: ??Team: ??[facility] CT ??Shift: ??AM ??Level of Billing: ??Critical [...] plan with the ICU team and other medical/oracle adf consultant staff, making frequent assessments and decisions [...] Result * eGFR (07/10/2023 4:26 PM CDT) Pathologist [facility] eGFR 80 mL/min/1. 73 m2 [facility] Comment: Interpretive Data Reference Interval [...] CDT 07/10/2023 4:34 PM CDT Kalen Rivera [facility] LAB BLOOD ORDERABLES Final Result [facility] [address] [place] [address] * (ABNORMAL) POCT glucose (07/10/2023 4:26 PM CDT) [facility] Signature Glucose, POC 153(H) 70 - 140 mg/dL [facility] Comment: For Glucose values <35 mg/dl when Hematocrit is >60 mg/dl,the test may not accurately detect significant hypoglycemia,and testing in the Laboratory should be considered if clinically indicated. Blood 07/10/2023 4:26 PM CDT 07/10/2023 4:26 PM CDT Keaton Lynn MD LAB POCT ORDERABLES - DE VICE Final Result Performing Organization Address [facility] Co de Phone Number [facility] [address] [facility] [place] [address] * aPTT (07/10/2023 4:26 PM CDT) aPTT 30 28 - 38 sec [facility] Comment: Interpretive Data Therapeutic heparin range: 60.0 - 94.0 seconds. Based on correlation with therapeutic heparin activity range of 0.3-0.7 Units/mL. Current interpretive data was last revised on 2020. Blood 07/10/2023 4:26 PM CDT 07/10/2023 4:34 PM CDT Kalen Rivera DNP LAB BLOOD ORDERABLES Final Result Performing Organization Address [facility] de Phone Number [facility] [address] [place] [address] * (ABNORMAL) Protime-INR (07/10/2023 4:26 PM CDT) PT 14.2(H) 10.3 - 13.7 sec [facility] INR 1.25(H) 0.90 - 1.20 [facility] Comment: Interpretive data Oral anticoagulant therapeutic ranges: Venous thromboembolism prophylaxis or treatment: 2.0-3.0 CARDIOLOGY Standard range: 2.0-3.0 High-intensity range: 2.5-3.5 Refer to indication-specific guidelines for appropriate target ranges for prosthetic heart valve replacement. Current interpretive data was last revised on 2019. Blood 07/10/2023 4:26 PM CDT 07/10/2023 4:34 PM CDT Kalen Rivera DNP LAB BLOOD ORDERABLES Final Result Performing Organization Address [facility] Co de Phone Number [facility] [address] [place] [address] * (ABNORMAL) CBC without differential (07/10/2023 4:26 PM CDT) [facility] WBC 8.2 3.8 - 9.9 K/cumm [facility] Hgb 10.7(L) 13.0 - 17.5 g/dL [facility] Hct 30.8(L) 38.9 - 50.3 % [facility] Plt 106(L) 150 - 400 K/cumm [facility] MPV 9.5 9.1 - 12.3 fL [facility] RBC 3.19(L) 4.30 - 5.80 M/cumm [facility] MCV 96.6(H) 81.3 - 96.4 fL [facility] MCH 33.5(H) 27.1 - 33.3 pg [facility] MCHC 34.7 32.3 - 35.7 g/dL [facility] RDW CV 13.2 11.1 - 14.9 % [facility] RDW SD 46.3 35.7 - 48.1 fL [facility] NRBC abs 0.00 0.00 - 0.01 K/cumm [facility] Blood 07/10/2023 4:26 PM CDT 07/10/2023 4:34 PM CDT Kalen Rivera [facility] LAB BLOOD ORDERABLES Final Result [facility] [address] [place] [address] * (ABNORMAL) Blood gas, arterial (07/10/2023 4:26 PM CDT) [facility] pH, Art 7.40 7.35 - 7.45 [facility] PCO2, Arterial 43 35 - 45 mmHg [facility] PO2, Arterial 155(H) 83 - 108 mmHg [facility] HCO3 Art (Calculated) 27 20 - 30 mmol/L [facility] BE, art 2 mmol/L [facility] Comment: Interpretive Data No Reference Range Established Current Interpretive Data was last revised on 2017 O2 Sat Art (Calculated) 99(H) 94 - 98 % [facility] Blood 07/10/2023 4:26 PM CDT 07/10/2023 4:34 PM CDT Kalen Rivera [facility] LAB BLOOD ORDERABLES Final Result Performing Organization Address [facility] Co de Phone Number [facility] [address] [facility] [place] [address] * Calcium, ionized (07/10/2023 4:26 PM CDT) Calcium, Ionized 5.10 4.50 - 5.10 mg/dL [facility] Blood 07/10/2023 4:26 PM CDT 07/10/2023 4:33 PM CDT Kalen Rivera [facility] LAB BLOOD ORDERABLES Final Result Performing Organization Address [facility] Co de Phone Number [facility] [address] [facility] [place], [place] [id number] * (ABNORMAL) Magnesium (07/10/2023 4:26 PM CDT) Magnesium 2.7(H) 1.4 - 2.5 mg/dL [facility] Blood 07/10/2023 4:26 PM CDT 07/10/2023 4:34 PM CDT Kalen Rivera [facility] LAB BLOOD ORDERABLES Final Result Performing Organization Address [facility] de Phone Number [facility] [address] [facility] [place], [place] [id number] * Basic metabolic panel (07/10/2023 4:26 PM CDT) Sodium 143 135 - 145 mmol/L [facility] Potassium, pl 4.1 3.3 - 4.9 mmol/L [facility] Comment:Hemolyzed; potassium value may be falsely elevated by as much as 0.3 - 0.5 mmol/L. Suggest redraw and reanalysis Chloride 108 97 - 110 mmol/L [facility] CO2 28 22 - 32 mmol/L [facility] Anion gap 7 2 - 15 mmol/L [facility] BUN 17 6 - 25 mg/dL [facility] Creatinine 0.97 0.80 - 1.30 mg/dL [facility] Glucose 151 70 - 199 mg/dL [facility] Comment: Interpretive Data Fasting glucose >/= 126 [...] 2022. Calcium 9.4 8.5 - 10.3 mg/dL [facility] Blood 07/10/2023 4:26 PM CDT 07/10/2023 4:34 PM CDT Kalen Rivera [facility] LAB BLOOD ORDERABLES Final Result Performing Organization Address City/[facility]/ZIP Co de Phone Number [facility] [address] [place] [address] * (ABNORMAL) Phosphorus (07/10/2023 4:26 PM CDT) Phosphorus, pl 4.7(H) 2.3 - 4.5 mg/dL [facility] Blood 07/10/2023 4:26 PM CDT 07/10/2023 4:34 PM CDT Kalen Rivera [facility] LAB BLOOD ORDERABLES Final Result [facility] [address] [facility] [place] [address] * REPAIR ANEURYSM ASCENDING AORTIC (07/10/2023 4:11 PM CDT) Anatomical Region Laterality Modality X-Ray Angiograph y Narrative 07/10/2023 4:12 PM CDT Please see OpNote for result. Keaton Lynn MD SURGICAL CASE ORDERS Fin al Result * (ABNORMAL) Protime-INR (07/10/2023 4:02 PM CDT) PT 14.8(H) 10.3 - 13.7 sec [facility] INR 1.30(H) 0.90 - 1.20 [facility] Comment: Interpretive data Oral anticoagulant therapeutic ranges: Venous thromboembolism prophylaxis or treatment: 2.0-3.0 CARDIOLOGY Standard range: 2.0-3.0 High-intensity range: 2.5-3.5 Refer to indication-specific guidelines for appropriate target ranges for prosthetic heart valve replacement. Current interpretive data was last revised on 2019. Blood 07/10/2023 4:02 PM CDT 07/10/2023 4:02 PM CDT Keaton Lynn MD LAB BLOOD ORDERABLES Fin al Result Performing Organization Address [facility] Co de Phone Number [facility] [address] [facility] [place] [address] * Fibrinogen (07/10/2023 4:02 PM CDT) Fibrinogen 182 170 - 400 mg/dL [facility] Blood 07/10/2023 4:02 PM CDT 07/10/2023 4:02 PM CDT Keaton Lynn MD LAB BLOOD ORDERABLES Fin al Result Performing Organization Address [facility]/ZIP Co de Phone Number [facility] [address] [place] [address] * aPTT (07/10/2023 4:02 PM CDT) [facility] aPTT 33 28 - 38 sec [facility] Comment: Interpretive Data Therapeutic heparin range: 60.0 - 94.0 seconds. Based on correlation with therapeutic heparin activity range of 0.3-0.7 Units/mL. Current interpretive data was last revised on 2020. Blood 07/10/2023 4:02 PM CDT 07/10/2023 4:02 PM CDT us Keaton Lynn MD LAB BLOOD ORDERABLES Fin al Result [facility] [address] Department [place] [address] * (ABNORMAL) CBC without differential (07/10/2023 4:01 PM CDT) [facility] WBC 9.5 3.8 - 9.9 K/cumm [facility] Hgb 9.4(L) 13.0 - 17.5 g/dL [facility] Hct 26.9(L) 38.9 - 50.3 % [facility] Plt 112(L) 150 - 400 K/cumm [facility] MPV 9.7 9.1 - 12.3 fL [facility] RBC 2.77(L) 4.30 - 5.80 M/cumm [facility] MCV 97.1(H) 81.3 - 96.4 fL [facility] MCH 33.9(H) 27.1 - 33.3 pg [facility] MCHC 34.9 32.3 - 35.7 g/dL [facility] RDW CV 13.1 11.1 - 14.9 % [facility] RDW SD 45.9 35.7 - 48.1 fL [facility] NRBC abs 0.00 0.00 - 0.01 K/cumm [facility] Blood 07/10/2023 4:01 PM CDT 07/10/2023 4:01 PM CDT us Keaton Lynn MD LAB BLOOD ORDERABLES Fin al Result [facility] [address] [place] [address] * Surgical pathology (07/10/2023 3:59 PM CDT) Tissue (Aorta) 07/10/2023 1: 29 PM CDT Comment:Placed in formalin p ost procedure. Narrative PATHOLOGY [facility] - 07/12/2023 12:51 PM CDT [place] [address] [place], [place] ??[address] Tele: ?? Pinky Morfin MD - [employer] Feeder Note to Patients: This report may contain [...] the details. SURGICAL PATHOLOGY REPORT Patient Name: ??JUDI NOLASCO Address: ??[address] [place], [place] ??[address] Gender: ??M : ??1945 (Age: 77) Service: ??Cardiothoracic Location: ??[id number], ?? Hospital #: ??[id number] Patient Type: ??[facility] Accession #: ? [id number] Taken: ? 07/10/2023 Received ? 07/11/2023 Reported: ? 07/12/2023 Physician(s): ? Keaton Lynn M.D. Radha Lozada M.D. 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 - Aortic tissue with degenerative change jap/07/12/2023 12:51 Examining Pathologist: Johnny Parker M.D. Report [...] separation of vessel wall are grossly identified. ??[employer] sections are submitted in A1. ?? jxi/07/11/2023 07:52 ? JAP,JXI MICROSCOPIC DESCRIPTION: Sections from the aorta show mild degenerative changes within the wall without distinct medial necrosis or aortitis. ??Some recent hemorrhage is seen in the adventitial connective tissue and a focus of peripheral nerve tissue is noted. Clerical Data Follows A; [id number] REPORT IMAGES AND/OR SCANNED DOCUMENTS ONLY VIEWABLE IN PDF FORMAT The immunohistochemical test(s) cited in this report, if any, was developed and its performance characteristics determined by [facility] Pathology Department. ??It has not been cleared or approved by the U.S. Food and Drug Administration. ??The FDA has determined that such clearance or approval is not necessary. ??This test is used for clinical purposes. ??It should not be regarded as investigational or for research. ??[facility] Laboratory is certified under the Clinical [...] MD LAB PATHOLOGY ORDERABLES Final Result PATHOLOGY [facility] Laboratory Receiving [address] [place] [address] * XR Chest 1 Vw (07/10/2023 3:47 [...] Time, High Range (07/10/2023 3:36 PM CDT) [facility] Signature ACT 91 87 - 138 sec [facility] Blood 07/10/2023 3:36 PM CDT 07/10/2023 3:36 PM CDT Keaton Lynn MD LAB BLOOD ORDERABLES Fin al Result [facility] [address] Department of Laboratories [place], [place] [id number] * (ABNORMAL) POC Blood Gas and Chemistries, Arterial - (07/10/2023 3:36 PM CDT) pH, Art POC 7.41 7.35 - 7.45 [facility] pCO2, Art POC 42 35 - 45 mmHg [facility] pO2, Art POC 304(H) 80 - 108 mmHg [facility] Na, POC 138 135 - 145 mmol/L [facility] K POC 4.4 3.3 - 4.9 mmol/L [facility] Comment: Interpretive Data This method is not able to assess for hemolysis, which may falsely increase potassium concentrations. If further testing is needed to evaluate this result, consider in-laboratory plasma potassium. Current Interpretive Data was last revised on 2022. Cl, POC 107 97 - 110 mmol/L [facility] Ionized Ca, POC 4.27(L) 4.50 - 5.10 mg/dL [facility] Glucose, POC 173 70 - 199 mg/dL [facility] Lactate, POC 2.2(H) 0.0 - 2.0 mmol/L [facility] O2Hb, Art POC 97.7(H) 90.0 - 95.0 % [facility] Carboxhgb fract 1.9 0.0 - 2.9 % [facility] Methemoglobin 0.4 0.0 - 1.9 % [facility] HHb, POC 0.0 0.0 - 5.0 % [facility] SO2 (aisha) arterial 100(H) 90 - 95 % [facility] Total CO2, Art POC 28 22 - 32 mmol/L [facility] BE, art, POC 1.7 -2.0 - 2.0 mmol/L [facility] HCO3, Art POC 26 20 - 30 mmol/L [facility] Hct, POC 29.0(L) 38.9 - 50.3 % [facility] Total Hb, POC 9.8(L) 13.0 - 17.5 g/dL [facility] Blood 07/10/2023 3:36 PM CDT 07/10/2023 3:36 PM CDT us Keaton Lynn MD LAB POCT ORDERABLES - DE VICE Final Result [facility] [address] [place] [address] * Transfuse plasma (07/10/2023 3:10 PM CDT) Blood Herbie Mckinney MD PhD BLOOD TRANSFUSION ORDERA BLES Final Result Performing Organization Address City/[facility]/ZIP Co de Phone Number [facility] [address] [facility] [place] [address] * Transfuse plasma (07/10/2023 3:01 PM CDT) Blood Herbie Mckinney MD PhD BLOOD TRANSFUSION ORDERA BLES Final Result Performing Organization Address City/[facility] Co de Phone Number [facility] [address] [facility] [place] [address] * (ABNORMAL) POC Blood Gas and Chemistries, Arterial - (07/10/2023 3:00 PM CDT) pH, Art POC 7.33(L) 7.35 - 7.45 [facility] pCO2, Art POC 47(H) 35 - 45 mmHg [facility] pO2, Art POC 105 80 - 108 mmHg [facility] Na, POC 138 135 - 145 mmol/L [facility] K POC 4.4 3.3 - 4.9 mmol/L [facility] Comment: Interpretive Data This method is not able to assess for hemolysis, which may falsely increase potassium concentrations. If further testing is needed to evaluate this result, consider in-laboratory plasma potassium. Current Interpretive Data was last revised on 2022. Cl, POC 106 97 - 110 mmol/L [facility] Ionized Ca, POC 4.62 4.50 - 5.10 mg/dL [facility] Glucose, POC 191 70 - 199 mg/dL [facility] Lactate, POC 2.8(H) 0.0 - 2.0 mmol/L [facility] O2Hb, Art POC 97.2(H) 90.0 - 95.0 % [facility] Carboxhgb fract 1.9 0.0 - 2.9 % [facility] Methemoglobin 0.6 0.0 - 1.9 % [facility] HHb, POC 0.3 0.0 - 5.0 % [facility] SO2 (aisha) arterial 100(H) 90 - 95 % [facility] Total CO2, Art POC 26 22 - 32 mmol/L [facility] BE, art, POC -1.3 -2.0 - 2.0 mmol/L [facility] HCO3, Art POC 24 20 - 30 mmol/L [facility] Hct, POC 29.0(L) 38.9 - 50.3 % [facility] Total Hb, POC 9.8(L) 13.0 - 17.5 g/dL [facility] Blood 07/10/2023 3:00 PM CDT 07/10/2023 3:00 PM CDT Keaton Lynn MD LAB POCT ORDERABLES - DE VICE Final Result Performing Organization Address [facility] Co de Phone Number [facility] [address] [place] [address] * POC Activated Clotting Time, High Range (07/10/2023 2:59 PM CDT) ACT 116 87 - 138 sec [facility] Blood 07/10/2023 2:59 PM CDT 07/10/2023 2:59 PM CDT Keaton Lynn MD LAB BLOOD ORDERABLES Fin al Result Performing Organization Address City/[facility]/ZIP Co de Phone Number [facility] [address] [place] [address] * Transfuse platelets (07/10/2023 2:56 PM CDT) Blood Herbie Mckinney MD PhD BLOOD TRANSFUSION ORDERA BLES Final Result Performing Organization Address [facility]/ZIP Co de Phone Number [facility] [address] [place] [address] * Prepare plasma: 2 Units (07/10/2023 2:42 PM CDT) [facility] Product code [id number] [facility] Unit Number [id number] [facility] Product Blood Type APOS [facility] Dispense Status PRESUMED TRANSFUSED [facility] Product code [id number] [facility] Unit Number [id number] [facility] Product Blood Type APOS [facility] Dispense Status PRESUMED TRANSFUSED [facility] Blood (Blood, Venous) 07/10/2023 2:42 PM CDT Narrative [facility] - 07/10/2023 10:15 PM CDT Date required:-[id number] FFP # of Units:-2-Units Reasons:-Active major bleeding with coagulopathy} Herbie Mckinney MD PhD BLOOD BANK PRODUCT ORDER EMELYN Final Result [facility] [address] [place] [address] * (ABNORMAL) POC Blood Gas and Chemistries, Arterial - (07/10/2023 2:30 PM CDT) [facility] pH, Art POC 7.34(L) 7.35 - 7.45 [facility] pCO2, Art POC 46(H) 35 - 45 mmHg [facility] pO2, Art POC 352(H) 80 - 108 mmHg [facility] Na, POC 138 135 - 145 mmol/L [facility] K POC 4.8 3.3 - 4.9 mmol/L [facility] Comment: Interpretive Data This method is not able to assess for hemolysis, which may falsely increase potassium concentrations. If further testing is needed to evaluate this result, consider in-laboratory plasma potassium. Current Interpretive Data was last revised on 2022. Cl, POC 106 97 - 110 mmol/L [facility] Ionized Ca, POC 4.30(L) 4.50 - 5.10 mg/dL [facility] Glucose, POC 177 70 - 199 mg/dL [facility] Lactate, POC 3.2(H) 0.0 - 2.0 mmol/L [facility] O2Hb, Art POC 97.8(H) 90.0 - 95.0 % [facility] Carboxhgb fract 1.5 0.0 - 2.9 % [facility] Methemoglobin 0.6 0.0 - 1.9 % [facility] HHb, POC 0.0 0.0 - 5.0 % [facility] SO2 (aisha) arterial 100(H) 90 - 95 % [facility] Total CO2, Art POC 26 22 - 32 mmol/L [facility] BE, art, POC -1.1 -2.0 - 2.0 mmol/L [facility] HCO3, Art POC 24 20 - 30 mmol/L [facility] Hct, POC 29.0(L) 38.9 - 50.3 % [facility] Total Hb, POC 9.6(L) 13.0 - 17.5 g/dL [facility] Blood 07/10/2023 2:30 PM CDT 07/10/2023 2:30 PM CDT us Keaton Lynn MD LAB POCT ORDERABLES - DE VICE Final Result Performing Organization Address [facility]/ZIP Co de Phone Number [facility] [address] [place] [address] * (ABNORMAL) POC Activated Clotting Time, High Range (07/10/2023 2:29 PM CDT) ACT 821(H) 87 - 138 sec [facility] Blood 07/10/2023 2:29 PM CDT 07/10/2023 2:29 PM CDT Keaton Lynn MD LAB BLOOD ORDERABLES Fin al Result [facility] [address] [place] [address] * (ABNORMAL) POC Blood Gas and Chemistries, Arterial - (07/10/2023 1:58 PM CDT) pH, Art POC 7.45 7.35 - 7.45 [facility] pCO2, Art POC 44 35 - 45 mmHg [facility] pO2, Art POC 365(H) 80 - 108 mmHg [facility] Na, POC 141 135 - 145 mmol/L [facility] K POC 3.9 3.3 - 4.9 mmol/L [facility] Comment: Interpretive Data This method is not able to assess for hemolysis, which may falsely increase potassium concentrations. If further testing is needed to evaluate this result, consider in-laboratory plasma potassium. Current Interpretive Data was last revised on 2022. Cl, POC 107 97 - 110 mmol/L [facility] Ionized Ca, POC 3.98(L) 4.50 - 5.10 mg/dL [facility] Glucose, POC 177 70 - 199 mg/dL [facility] Lactate, POC 2.3(H) 0.0 - 2.0 mmol/L [facility] O2Hb, Art POC 98.2(H) 90.0 - 95.0 % [facility] Carboxhgb fract 1.1 0.0 - 2.9 % [facility] Methemoglobin 0.4 0.0 - 1.9 % [facility] HHb, POC 0.3 0.0 - 5.0 % [facility] SO2 (aisha) arterial 100(H) 90 - 95 % [facility] Total CO2, Art POC 32 22 - 32 mmol/L [facility] BE, art, POC 5.9(H) -2.0 - 2.0 mmol/L [facility] HCO3, Art POC 30 20 - 30 mmol/L [facility] Hct, POC 29.0(L) 38.9 - 50.3 % [facility] Total Hb, POC 9.6(L) 13.0 - 17.5 g/dL [facility] Blood 07/10/2023 1:58 PM CDT 07/10/2023 1:58 PM CDT us Keaton Lynn MD LAB POCT ORDERABLES - DE VICE Final Result Performing Organization Address City/[facility]/ZIP Co de Phone Number [facility] [address] [place] [address] * (ABNORMAL) POC Activated Clotting Time, High Range (07/10/2023 1:57 PM CDT) ACT 647(H) 87 - 138 sec [facility] Blood 07/10/2023 1:57 PM CDT 07/10/2023 1:57 PM CDT us Keaton Lynn MD LAB BLOOD ORDERABLES Fin al Result Performing Organization Address [facility]/ZIP Co de Phone Number [facility] [address] [place] [address] * (ABNORMAL) POC Blood Gas and Chemistries, Arterial - (07/10/2023 1:43 PM CDT) Pathologist [facility] pH, Art POC 7.40 7.35 - 7.45 [facility] pCO2, Art POC 39 35 - 45 mmHg [facility] pO2, Art POC 416(H) 80 - 108 mmHg [facility] Na, POC 137 135 - 145 mmol/L [facility] K POC 6.3(C) 3.3 - 4.9 mmol/L [facility] Comment: Interpretive Data This method is not able to assess for hemolysis, which may falsely increase potassium concentrations. If further testing is needed to evaluate this result, consider in-laboratory plasma potassium. Current Interpretive Data was last revised on 2022. Cl, POC 108 97 - 110 mmol/L [facility] Ionized Ca, POC 4.21(L) 4.50 - 5.10 mg/dL [facility] Glucose, POC 176 70 - 199 mg/dL [facility] Lactate, POC 2.3(H) 0.0 - 2.0 mmol/L [facility] O2Hb, Art POC 98.0(H) 90.0 - 95.0 % [facility] Carboxhgb fract 1.3 0.0 - 2.9 % [facility] Methemoglobin 0.6 0.0 - 1.9 % [facility] HHb, POC 0.2 0.0 - 5.0 % [facility] SO2 (aisha) arterial 100(H) 90 - 95 % [facility] Total CO2, Art POC 25 22 - 32 mmol/L [facility] BE, art, POC -0.5 -2.0 - 2.0 mmol/L [facility] HCO3, Art POC 25 20 - 30 mmol/L [facility] Hct, POC 29.0(L) 38.9 - 50.3 % [facility] Total Hb, POC 9.7(L) 13.0 - 17.5 g/dL [facility] Blood 07/10/2023 1:43 PM CDT 07/10/2023 1:43 PM CDT Keaton Lynn MD LAB POCT ORDERABLES - DE VICE Final Result Performing Organization Address [facility]/ZIP Co de Phone Number [facility] [address] [place] [address] * (ABNORMAL) POC Activated Clotting Time, High Range (07/10/2023 1:42 PM CDT) ACT 374(H) 87 - 138 sec [facility] Blood 07/10/2023 1:42 PM CDT 07/10/2023 1:42 PM CDT Keaton Lynn MD LAB BLOOD ORDERABLES Fin al Result [facility] [address] [place] [address] * (ABNORMAL) POC Blood Gas and Chemistries, Arterial - (07/10/2023 1:12 PM CDT) pH, Art POC 7.34(L) 7.35 - 7.45 [facility] pCO2, Art POC 46(H) 35 - 45 mmHg [facility] pO2, Art POC 482(H) 80 - 108 mmHg [facility] Na, POC 137 135 - 145 mmol/L [facility] K POC 4.1 3.3 - 4.9 mmol/L [facility] Comment: Interpretive Data This method is not able to assess for hemolysis, which may falsely increase potassium concentrations. If further testing is needed to evaluate this result, consider in-laboratory plasma potassium. Current Interpretive Data was last revised on 2022. Cl, POC 106 97 - 110 mmol/L [facility] Ionized Ca, POC 4.39(L) 4.50 - 5.10 mg/dL [facility] Glucose, POC 112 70 - 199 mg/dL [facility] Lactate, POC 1.1 0.0 - 2.0 mmol/L [facility] O2Hb, Art POC 98.6(H) 90.0 - 95.0 % [facility] Carboxhgb fract 1.2 0.0 - 2.9 % [facility] Methemoglobin 0.1 0.0 - 1.9 % [facility] HHb, POC 0.1 0.0 - 5.0 % [facility] SO2 (aisha) arterial 100(H) 90 - 95 % [facility] Total CO2, Art POC 26 22 - 32 mmol/L [facility] BE, art, POC -1.1 -2.0 - 2.0 mmol/L [facility] HCO3, Art POC 24 20 - 30 mmol/L [facility] Hct, POC 29.0(L) 38.9 - 50.3 % [facility] Total Hb, POC 9.7(L) 13.0 - 17.5 g/dL [facility] Blood 07/10/2023 1:12 PM CDT 07/10/2023 1:12 PM CDT us Keaton Lynn MD LAB POCT ORDERABLES - DE VICE Final Result [facility] [address] [place] [address] * (ABNORMAL) POC Activated Clotting Time, High Range (07/10/2023 1:11 PM CDT) ACT 650(H) 87 - 138 sec [facility] Blood 07/10/2023 1:11 PM CDT 07/10/2023 1:11 PM CDT us Keaton Lynn MD LAB BLOOD ORDERABLES Fin al Result [facility] [address] [place] [address] * (ABNORMAL) POC Blood Gas and Chemistries, Venous - (07/10/2023 12:52 PM CDT) Pathologist [facility] pH, John POC 7.31(L) 7.32 - 7.45 [facility] pCO2, john POC 57(H) 40 - 50 mmHg [facility] pO2, john POC 53(H) 35 - 42 mmHg [facility] Na, POC 138 135 - 145 mmol/L [facility] K POC 3.6 3.3 - 4.9 mmol/L [facility] Comment: Interpretive Data This method is not able to assess for hemolysis, which may falsely increase potassium concentrations. If further testing is needed to evaluate this result, consider in-laboratory plasma potassium. Current Interpretive Data was last revised on 2022. Cl, POC 104 97 - 110 mmol/L [facility] Ionized Ca, POC 4.24(L) 4.50 - 5.10 mg/dL [facility] Glucose, POC 110 70 - 199 mg/dL [facility] Lactate, POC 0.7 0.0 - 2.0 mmol/L [facility] O2Hb, John POC 83.6(L) 90.0 - 95.0 % [facility] Carboxhgb fract 1.7 0.0 - 2.9 % [facility] Methemoglobin 0.0 0.0 - 1.9 % [facility] HHb, POC 14.7(H) 0.0 - 5.0 % [facility] O2 Sat, John POC (Aisha) 85(H) 68 - 77 % [facility] Total CO2, john POC 30 22 - 32 mmol/L [facility] Base excess, john POC 1.6 mmol/L [facility] HCO3, John POC 26 20 - 30 mmol/L [facility] Hct, POC 31.0(L) 38.9 - 50.3 % [facility] Total Hb, POC 10.2(L) 13.0 - 17.5 g/dL [facility] Blood 07/10/2023 12:5 2 PM CDT 07/10/2023 12:52 PM CDT Keaton Lynn MD LAB POCT ORDERABLES - DE VICE Final Result Performing Organization Address [facility]/ZIP Co de Phone Number [facility] [address] [place] [address] * (ABNORMAL) POC Activated Clotting Time, High Range (07/10/2023 12:46 PM CDT) ACT 684(H) 87 - 138 sec [facility] Blood 07/10/2023 12:4 6 PM CDT 07/10/2023 12:46 PM CDT Keaton Lynn MD LAB BLOOD ORDERABLES Fin al Result Performing Organization Address [facility]/ZIP Co de Phone Number [facility] [address] [place] [place] [address] * (ABNORMAL) POC Blood Gas and Chemistries, Arterial - (07/10/2023 12:46 PM CDT) pH, Art POC 7.34(L) 7.35 - 7.45 [facility] pCO2, Art POC 51(H) 35 - 45 mmHg [facility] pO2, Art POC 462(H) 80 - 108 mmHg [facility] Na, POC 136 135 - 145 mmol/L [facility] K POC 3.6 3.3 - 4.9 mmol/L [facility] Comment: Interpretive Data This method is not able to assess for hemolysis, which may falsely increase potassium concentrations. If further testing is needed to evaluate this result, consider in-laboratory plasma potassium. Current Interpretive Data was last revised on 2022. Cl, POC 106 97 - 110 mmol/L [facility] Ionized Ca, POC 4.07(L) 4.50 - 5.10 mg/dL [facility] Glucose, POC 110 70 - 199 mg/dL [facility] Lactate, POC 0.7 0.0 - 2.0 mmol/L [facility] O2Hb, Art POC 98.4(H) 90.0 - 95.0 % [facility] Carboxhgb fract 1.4 0.0 - 2.9 % [facility] Methemoglobin 0.3 0.0 - 1.9 % [facility] HHb, POC 0.0 0.0 - 5.0 % [facility] SO2 (aisha) arterial 100(H) 90 - 95 % [facility] Total CO2, Art POC 29 22 - 32 mmol/L [facility] BE, art, POC 1.2 -2.0 - 2.0 mmol/L [facility] HCO3, Art POC 26 20 - 30 mmol/L [facility] Hct, POC 30.0(L) 38.9 - 50.3 % [facility] Total Hb, POC 10.0(L) 13.0 - 17.5 g/dL [facility] Blood 07/10/2023 12:4 6 PM CDT 07/10/2023 12:46 PM CDT Keaton Lynn MD LAB POCT ORDERABLES - DE VICE Final Result [facility] [address] Department [place] [address] * (ABNORMAL) POC Activated Clotting Time, High Range (07/10/2023 12:31 PM CDT) ACT 649(H) 87 - 138 sec [facility] Blood 07/10/2023 12:3 1 PM CDT 07/10/2023 12:31 PM CDT Keaton Lynn MD LAB BLOOD ORDERABLES Fin al Result [facility] [address] [place] [address] * (ABNORMAL) POC Blood Gas and Chemistries, Arterial - (07/10/2023 12:09 PM CDT) pH, Art POC 7.35 7.35 - 7.45 [facility] pCO2, Art POC 48(H) 35 - 45 mmHg [facility] pO2, Art POC 158(H) 80 - 108 mmHg [facility] Na, POC 138 135 - 145 mmol/L [facility] K POC 3.8 3.3 - 4.9 mmol/L [facility] Comment: Interpretive Data This method is not able to assess for hemolysis, which may falsely increase potassium concentrations. If further testing is needed to evaluate this result, consider in-laboratory plasma potassium. Current Interpretive Data was last revised on 2022. Cl, POC 106 97 - 110 mmol/L [facility] Ionized Ca, POC 4.61 4.50 - 5.10 mg/dL [facility] Glucose, POC 99 70 - 199 mg/dL [facility] Lactate, POC 0.7 0.0 - 2.0 mmol/L [facility] O2Hb, Art POC 97.6(H) 90.0 - 95.0 % [facility] Carboxhgb fract 1.6 0.0 - 2.9 % [facility] Methemoglobin 0.7 0.0 - 1.9 % [facility] HHb, POC 0.2 0.0 - 5.0 % [facility] SO2 (aisha) arterial 100(H) 90 - 95 % [facility] Total CO2, Art POC 28 22 - 32 mmol/L [facility] BE, art, POC 0.4 -2.0 - 2.0 mmol/L [facility] HCO3, Art POC 25 20 - 30 mmol/L [facility] Hct, POC 37.0(L) 38.9 - 50.3 % [facility] Total Hb, POC 12.4(L) 13.0 - 17.5 g/dL [facility] Blood 07/10/2023 12:0 9 PM CDT 07/10/2023 12:09 PM CDT Keaton Lynn MD LAB POCT ORDERABLES - DE VICE Final Result Performing Organization Address [facility] Co de Phone Number [facility] [address] [place] [address] * POC Activated Clotting Time, High Range (07/10/2023 12:08 PM CDT) ACT 95 87 - 138 sec [facility] Blood 07/10/2023 12:0 8 PM CDT 07/10/2023 12:08 PM CDT Keaton Lynn MD LAB BLOOD ORDERABLES Fin al Result Performing Organization Address [facility] Co nj Phone Number [facility] [address] [address] * Hemoglobin A1c (07/10/2023 10:12 AM CDT) Hgb A1C 5.2 4.0 - 5.6 % [facility] Estimated Average Glucose 103 mg/dL [facility] Comment: The ADA recommends reporting an estimated Average Glucose (eAG) with all Hemoglobin A1c results using the equation derived from a study of 507 normal and diabetic adults. ??Minority populations were underrepresented and children were not included. ?? (Diabetes Care 31:0538-5677, 2008). ??The eAG is not equivalent to a fasting glucose. Blood 07/10/2023 10:1 2 AM CDT 07/10/2023 10:12 AM CDT Danyelle Tillman NP LAB BLOOD ORDERABLES Final Resul t Performing Organization Address [facility] Co de Phone Number [facility] [address] [facility] [place] [address] * aPTT (07/10/2023 10:12 AM CDT) aPTT 33 28 - 38 sec [facility] Comment: Interpretive Data Therapeutic heparin range: 60.0 - 94.0 seconds. Based on correlation with therapeutic heparin activity range of 0.3-0.7 Units/mL. Current interpretive data was last revised on 2020. Blood 07/10/2023 10:1 2 AM CDT 07/10/2023 10:12 AM CDT Danyelle Tillman NP LAB BLOOD ORDERABLES Final Resul t Performing Organization Address [facility] Co de Phone Number [facility] [address] [address] * Protime-INR (07/10/2023 10:12 AM CDT) PT 11.7 10.3 - 13.7 sec [facility] INR 1.03 0.90 - 1.20 [facility] Comment: Interpretive data Oral anticoagulant therapeutic ranges: Venous thromboembolism prophylaxis or treatment: 2.0-3.0 CARDIOLOGY Standard range: 2.0-3.0 High-intensity range: 2.5-3.5 Refer to indication-specific guidelines for appropriate target ranges for prosthetic heart valve replacement. Current interpretive data was last revised on 2019. Blood 07/10/2023 10:1 2 AM CDT 07/10/2023 10:12 AM CDT Danyelle Tillman NP LAB BLOOD ORDERABLES Final Resul t Performing Organization Address [facility] Co de Phone Number [facility] [address] [address] * Check Sample (07/10/2023 10:12 AM CDT) ABO Rh O Positive [facility] HCLL OTHER 07/10/2023 10:1 2 AM CDT 07/10/2023 10:22 AM CDT us Keaton Lynn MD LAB BLOOD ORDERABLES Fin al Result Performing Organization Address [facility]/ZIP Co de Phone Number [facility] [address] [facility] [place] [address] * Prepare platelets: 2 Units (07/10/2023 9:43 AM CDT) Product code [id number] [facility] Unit Number [id number] [facility] Product Blood Type APOS [facility] Dispense Status PRESUMED TRANSFUSED [facility] Blood (Blood, Venous) 07/10/2023 9:43 AM CDT Narrative [facility] - 07/10/2023 10:15 PM CDT Specify Procedure:->REPLACEMENT ASCENDING AORTA Are special requirements needed? (all products are leukoreduced)->No Date required:-20230710 PLT # of Units:-2-Units Reasons:-Hold for procedure (specify procedure)} us Danyelle Tillman NP BLOOD BANK PRODUCT ORDERABLES Fi nal Result Performing Organization Address [facility] Co de Phone Number [facility] [address] [facility] [place] [address] * Prepare RBC: 4 Units (07/10/2023 9:43 AM CDT) Product code [id number] [facility] Unit Number [id number] 6-0 [facility] Product Blood Type OPOS [facility] Dispense Status RETURNED [facility] Product code [id number] [facility] Unit Number [id number] 7-* [facility] Product Blood Type OPOS [facility] Dispense Status RETURNED [facility] Product code [id number] [facility] Unit Number [id number] 4-I [facility] Product Blood Type OPOS [facility] Dispense Status RETURNED [facility] Product [facility] [id number] [facility] Unit Number [id number] 5-2 [facility] Product Blood Type OPOS [facility] Dispense Status RETURNED [facility] Blood 07/10/2023 9:43 AM CDT Narrative [facility] - 07/11/2023 1:49 AM CDT Specify Procedure:->REPLACEMENT ASCENDING AORTA Are special requirements needed? (All products are leukoreduced and CMV- safe)- >No Date required:-20230710 LRRBC # of [id number] Reasons:-Hold for procedure (specify procedure)} Danyelle Tillman NP BLOOD BANK PRODUCT ORDERABLES nal Result [facility] [address] [place] [address] documented in this encounter Visit Diagnoses Diagnosis [...] Sun07/11/23 at 0000, Hold for diarrhea, Indications: constipationIndications:constipation Carrier Fluids for Secondary Infusion - 0.9% Sodium Chloride 30 mL, intravenous, As needed, For priming tubing and/or flushing, Starting on Sun07/10/23 at 1623, 0-250 ml/hr to flush line after IV infusions when no maintenance IV ordered. Infuse 30mL at the same rate as the secondary infusion. Run as primary IV, not intended for KVO. dextrose (D10W) 10% bolus 250 mL 250 [...] Call MD for each episode of hypoglycemia. LEGAL EXECUTIVE STATES GLUTOSE-15 CONTAINS GLUCOSE 40% W/W (50% [...] CDT 5,000 Units L eft Upper Abdomen magnesium sulfate 2 g/50 mL in water (premix) 2 g 2 g, intravenous, Administer over 60 Minutes, Every 2 hours PRN, Mg < 2.1, Starting on Sun07/11/23 at 0651 New Bag 07/13/2023 7:00 AM CDT 2 g New Bag 07/11/2023 9:17 PM CDT 2 g metoprolol tartrate (LOPRESSOR) immediate release tablet 12.5 mg 12.5 mg, oral, 2 times daily, First dose (after last modification) on [place] 07/12/23 at 2100, Hold for HR <60 or SBP <100 Given 07/14/2023 10:32 AM CDT 12.5 mg Given 07/13/2023 9:04 PM CDT 12.5 mg Given 07/13/2023 9:43 AM CDT 12.5 mg ondansetron (ZOFRAN) injection 4 mg 4 [...] Given 07/13/2023 6:26 AM CDT 40 mEq senna (SENOKOT) tablet 1 tablet 1 tablet, oral, 2 times daily, First dose on Sun07/11/23 at 0900, If able to swallow medications. Hold for diarrhea., Indications: constipationIndications:constipation Given 07/14/2023 10:33 AM CDT 1 tabl et Given 07/13/2023 9:04 PM CDT 1 tablet [...] Sun07/10/23 at 0942, Pre-Op sodium chloride 0.9% irrigation As needed, Starting on Sun07/10/23 at 1112, Intra-Op Given 07/10/2023 11:12 AM CDT 3,000 mL Surgical Site documented in this encounter Discontinued Medications Medication [...] Solano RN) 0043 (Given - Provider: Danica Sanchez, MAHIN)0625 (Given - Provider: Danica Sanchez, MAHIN)1102 (Given - Provider: Nano Arango, MAHIN)1756 (Given - Provider: Nano Arango, MAHIN) 0105 (Given - Provider: Danica Sanchez RN)0519 (Given - Provider: Danica Sanchez RN)1117 (Given - Provider: Nano Arango, MAHIN) aspirin [...] Solano RN) 0940 (Given - Provider: Nano Arnago RN) 1033 (Given - Provider: Nano Arango RN) atorvastatin (LIPITOR) tablet 40 mg 40 mg, oral, Nightly, First dose on Sun07/11/23 at 2100 2041 (Given - Provider: Danica Sanchez, MAHIN) 2103 (Given - Provider: Danica Sanchez, MAHIN) ceFAZolin [...] constipation 0822 (Given - Provider: Cassandra Solano RN)2042 (Given - Provider: Danica Sanchez RN) 0940 [...] Nano Arango RN)1607 (Given - Provider: Nano Arango RN) 1033 (Given - Provider: Nano Arango RN)1600 (Due) heparin 5,000 unit/mL injection 5,000 Units 5,000 Units, subcutaneous, Every 8 hours scheduled, First dose on Sun07/11/23 at 0600, Indications: Deep Vein Thrombosis Prevention 0557 (Given - Provider: Carlita Meier RN)1331 (Given - Provider: Cassandra Solano RN)2042 (Given - Provider: Danica Sanchez RN) 0625 (Given - Provider: Danica Sanchez RN)1607 (Given - Provider: Nano Arango RN)2104 (Given [...] dose (after last modification) on Sun07/12/23 at 2100, Hold for HR <60 or SBP <100 2041 (Given - Provider: Danica Sanchez RN) 0943 (Given - Provider: Nano Arango RN)2103 (Given - Provider: Danica Sanchez RN) 1032 [...] constipation 0823 (Given - Provider: Cassandra Solano RN)2041 (Given - Provider: Danica Sanchez RN) 0940 (Given - Provider: Nano Arango RN)210 (Given - Provider: Danica Sanchez RN) 1033 (Given - Provider: Nano Arango RN) sodium chloride 0.9% flush 0.5-20 mL 0.5-20 mL, intra-catheter, Every 8 hours scheduled, First dose on Sun07/10/23 at 1700, Flush volume based on line type and size. , Indications: Flushing 0557 (Given - Provider: Carlita Meier, MAHIN)1330 (Given - Provider: Cassandra Solano, RN)2042 (Given - Provider: Danica Sanchez, MAHIN) 0626 (Given - Provider: Danica Sanchez, MAHIN)1607 (Given - Provider: Nano Arango, MAHIN)2104 (Given - Provider: Danica Sanchez, MAHIN) 0519 (Given - Provider: Danica Sanchez, MAHIN)1430 (Not Given - Provider: Nano Arango RN - Reason: Loss of IV access) sodium [...] Nano Arango RN)1102 (Given - Provider: Nano Arango RN) PRN Medication Order 07/12/2023 07/13/2023 07/14/2023 bisacodyL [...] Call MD for each episode of hypoglycemia. LEGAL EXECUTIVE STATES GLUTOSE-15 CONTAINS GLUCOSE 40% W/W (50% [...] Provider: Nano Arango RN - Comment: Completed 07. Administered by [employer].) ondansetron (ZOFRAN) injection 4 mg 4 mg, [...] dosing interval. 0556 (Given - Provider: Carlita Meier RN)0923 (Given - Provider: Cassandra Solano, MAHIN)1331 (Given - Provider: Cassandra Solano, MAHIN)1750 (Given - Provider: Cassandra Solano RN)2042 (Given - Provider: Danica Sanchez, MAHIN) 0043 (Given - Provider: Danica Sanchez, MAHIN)0625 (Given - Provider: Danica Sanchez, MAHIN)1102 (Given - Provider: Nano Arango, MAHIN)1607 (Given - Provider: Nano Arango, MAHIN)2104 (Given - Provider: Danica Sanchez, MAHIN) 0519 (Given - Provider: Danica Sanchez, MAHIN)1623 (Given - Provider: Nano Arango, MAHIN) polyethylene [...] manipulate tablet/capsule. 0556 (Given - Provider: Carlita Meier, MAHIN) potassium chloride ER (KLOR-CON) extended release tablet [...] Call MD for each episode of hypoglycemia. LEGAL EXECUTIVE STATES GLUTOSE-15 CONTAINS GLUCOSE 40% W/W (50% [...] furosemide (LASIX) 10 mg/mL injection 20 mg 3 07/13/2023 07/12/2023 potassium chloride ER (KLOR- CON) extended release tablet 10 mEq 2 07/13/2023 07/12/2023 sodium phosphate - potassium phosphate (K-PHOS NEUTRAL) tablet 500 mg 1 07/13/2023 metoprolol tartrate (LOPRESS OR) immediate release split tablet 6.25 mg 2 07/12/2023 07/11/2023 metoprolol tartrate (LOPRESS OR) immediate release tablet 12.5 mg 2 07/12/2023 07/11/2023 aspirin enteric coated tablet 81 mg 1 07/11 calcium chloride 1 g/110 mL in sodium chloride 0.9% (premix) solution 1 g 1 07/11/2023 dextrose (D10W) 10% bolus 125 mL 07/11/20 dextrose (D10W) 10% bolus 250 mL 07/11/20 dextrose (GLUTOSE) 40 % gel 15 g 1 07/11/20 glucagon injection 1 mg 1 07/11/2023 insulin lispro (HumaLOG, ADM ELOG) 100 unit/mL injection 0-10 Units 1 07/11/2023 insulin lispro (HumaLOG, ADM ELOG) 100 unit/mL injection 0-5 Units 1 07/11/2023 insulin lispro (HumaLOG, ADM ELOG) 100 unit/mL injection 1-14 Units 1 07/11/2023 insulin regular bolus from bag 2-14 Units 2 07/11/2023 insulin regular in 0.9% sodi um chloride (MYXREDLIN) 100 unit/100 mL (1 unit/mL) infusion (premix) 1 07/11/2023 Lactated Ringer's (LR) bolus 500 mL 2 07/1107/10/2023 magnesium sulfate 2 g/50 mL in water (premix) 2 g 2 07/11/2023 potassium chloride ER (KLOR- CON) extended release tablet 20 mEq 1 07/11/2023 potassium chloride ER (KLOR- CON) extended release tablet 40 mEq 1 07/11/2023 acetaminophen (TYLENOL) 32 m g/mL oral liquid 1,000 mg 1 07/10/2023 acetaminophen (TYLENOL) suppository 650 mg 1 07/10/2023 acetaminophen (TYLENOL) tablet 1,000 mg 1 0 07/10/2023 aspirin suppository 300 mg 1 07/10/2023 aspirin tablet 325 mg 2 07/10/2023 atorvastatin (LIPITOR) tablet 40 mg 1 07/10 bisacodyL (DULCOLAX) suppository 10 mg 1 Carrier Fluids for Secondary Infusion - 0.9% Sodium Chloride 2 07/10/2023 ceFAZolin (ANCEF) 2,000 mg/2 0 mL in sterile water (premix) 2,000 mg 2 07/10/2023 dextrose 5% water flush 10-30 mL 07/10/20 docusate (COLACE) 10 mg/mL o ral liquid 100 mg 1 07/10/2023 docusate sodium (COLACE) capsule 100 mg 1 0 07/10/2023 famotidine (PEPCID) injection 20 mg 1 07/10 heparin 5,000 unit/mL inject ion 5,000 Units 07/10/2023 HYDROmorphone (PF) (DILAUDID ) injection 0.2 mg 1 07/10/2023 niCARdipine (CARDENE) 25,000 mcg in sodium chloride 0.9% 50 mL (500 mcg/mL) infusion 1 07/10/2023 norepinephrine in dextrose 5 % (LEVOPHED) 8,000 mcg/250 mL (32 mcg/mL) infusion (premix) 07/10/2023 ondansetron (ZOFRAN) injection 4 mg 1 07/10 oxyCODONE (ROXICODONE) tablet 5 mg 1 2022 polyethylene glycol (MIRALAX) packet 17 g 1 07/10/2023 potassium chloride 20 mEq/50 mL in sterile water (premix) 20 mEq 1 07/10/2023 propofol (DIPRIVAN) 10 mg/mL infusion 1 propofoL (DIPRIVAN) 10 mg/mL IV - ADS Override Pull 1 07/10/2023 senna (SENOKOT) tablet 1 tablet 1 senna 1.76 mg/mL syrup 8.8 mg 1 07/10/2023 sodium chloride 0.9% flush 0.5-20 mL 4 06/16 sodium chloride 0.9% infusion 3 07/10/2023 sodium chloride 0.9% solution 1 07/10/2023 vancomycin 1500 mg/250 mL in sodium chloride 0.9% (premix) 1,500 mg 2 07/10/2023 Lab Orders Without Results Count Last Ordered D ate First Ordered Date POCT GLUCOSE DEVICE 14 07/12/2023 07/10/20 23 Nursing Count Last Ordered Date First Orde [...] 07/14/2023 documented in this encounter Care Teams Lithograph Printer Relationship Specialty Start Date End Date Radha Lozada MD [address] [place] [id number] PCP - General Family Medicine 06/25/23 04/29/24 Kali Reddy MD Consulting Physician Cardiology 05/19/19 Keaton Lynn MD [address] [facility] [address] [place] [address] Consulting Physician Cardiothoracic Surgery 06/07/23 documented as of this encounter
--- OUTSIDE RECORDS SUMMARY | 2024-09-29 22:10 | XMS_ITS | Encounter Summary ---
Author Organization [facility] Address [address] [place] [address] Care Team Providers Care Applications Sales Representative Name Role Phone Noemi Willis NP Primary Care Provider [phone] Kali Reddy MD Unavailable [phone] Reason for Referral * MRI/CAT/PET Scan (Routine) - Closed Specialty Diagnoses / Procedures Referred By Contac t Referred To Contact Radiology Diagnoses Ascending aortic aneurysm (HCC) Procedures CTA Chest W Contrast Kali Reddy MD Phone: tel: fax: [facility] [address] [place] [address] Referral ID Status Reason Start Date Expiration Date Visits Re quested Visits Authorized [id number] Closed 06/08/2022 07/08/2023 1 1 Reason for Visit * Reason Comments Aortic Aneurysm Encounter Details Date Type Department Care Team (Latest Contact Info) Description 06/08/2022 10:15 AM CDT Office Visit [facility] Cardiology [address] [place] [address] Kali Reddy MD [address] [facility] [address] [place] [address] Pure hypercholesterolemia (Primary Dx); Ascending aortic aneurysm (CMS/HCC) (HCC) Social History Tobacco Use Types Packs/Day Years Used Date Smoking Tobacco: Never Smokeless Tobacco: Never Alcohol Use Standard Drinks/Week Comments Yes 0 (1 standard drink = 0.6 oz pur e alcohol) Socially Sex and Gender Information Value Date Recorded Sex Assigned at Not on file Legal Sex Male 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 [employer] Gender Identity Not on file Sexual Orientation Not on file documented as of this encounter Last Filed Vital Signs Vital Sign Reading Time Taken Comments Blood Pressure 138/82 06/08/2022 10:20 AM CDT Pulse 51 06/08/2022 10:20 AM CDT Temperature - - Respiratory Rate - - Oxygen Saturation 96% 06/08/2022 10: 20 AM CDT Inhaled Oxygen Concentration - - Weight 110.9 kg (244 lb 9.6 oz) 022 10:20 AM CDT Height 182.9 cm (6') 06/08/2022 10:20 AM CDT Body Mass Index 33.17 06/08/2022 10:20 AM CDT documented in this encounter Ordered Prescriptions Prescription Sig Dispense Quantity Refills Last Filled Start Date End Date carvediloL (COREG) 25 mg tablet Take 1 tablet (25 mg total) by mouth 2 (two) times a day with meals 180 tablet 3 06/08/2022 05/16/2023 atorvastatin (LIPITOR) 40 mg tablet Take 1 tablet (40 mg total) by mouth daily 90 tablet 3 06/08/2022 05/16/2023 documented in this encounter Progress Notes * Kali Reddy MD - 06/08/2022 10:15 AM CDT Images from the original note were not included. [facility] Cardiology [address] [address] Cardiology MD Kali Mckeon MD Robert Kopitsky, MD Martin Schwarze, DO David Sewall, MD James Smith, MD Christopher Speidel, MD Gus Theodos, MD Jeremy Tietjens, MD K. Bryan Trimmer, MD Rory Camacho, MD Beth Smith, AUTOMOBILE ASSEMBLER Patricia Campbell, ALEX Monk, ALEX Patient Name: Omar Adam Provider: Kali Reddy MD : 1945 Date of Service: 06/08/2022 Referring: Lazaro CHIEF COMPLAINT: Aortic Aneurysm TESTING/DATA: Anival RAMSEY-RODGER is Jackie Landry of an outdoors[facility] [...] 5.1 cm ascending aorta, stable (prior remeasured). HISTORY OF PRESENT ILLNESS: This note was dictated with voice-recognition software, filer metal patterns errors may be present. Omar Adam is a very pleasant 76 y.o. male with a history which includes thoracic aortic aneurysm (no high risk features, surgical referral at 5.5 cm, he has elected for chronic CT scans, which he would like to do annually, rather than MRA because of some claustrophobia) who returns to clinic. When I saw him last he was doing well. This is his annual follow-up. He had a CT aortogram performedearlier today. The patient returns to clinic feeling quite well. No chest pain/pressure/tightness or dyspnea. He did have couple of episodes of presyncope about two weeks ago. No natalia syncope. No such episodes prior to or since. He is not taking atorvastatin because he simply ran out. He did not have any problems with it. He has not been following his blood pressure at home. ALLERGY Patient has no known allergies. MEDICATIONS Outpatient Encounter Medications as of 06/08/2022 Medication Sig Dispense Refill ??? losartan (COZAAR) 100 mg tablet Take 1 tablet by mouth once daily 45 tablet 0 ??? metoprolol XL (TOPROL-XL) 100 mg 24 hr tablet Take 1 tablet by mouth once daily 45 tablet 0 ??? atorvastatin (LIPITOR) 40 mg tablet Take 40 mg by mouth daily (Patient not taking: Reported on 06/08/2022) Facility-Administered Encounter Medications as of 06/08/2022 Medication Dose Route Frequency Provider Last Rate Last Admin ??? [COMPLETED] ioversoL (OPTIRAY 350) syringe 100 mL 100 mL intravenous Once in imaging Kali Reddy MD 87 mL at 06/08/22 0959 PAST MEDICAL HISTORY Past Medical History: Diagnosis Date ??? Arthritis Arthritis; Comments: [facility] 10/19/2015 - ??? HX OTHER MEDICAL ascending aortic aneurysm; Comments: [facility] 10/19/2015 - ??? Hypertension Hypertension ??? Sleep apnea Sleep apnea FAMILY HISTORY Family History Problem Relation Age of Onset ??? Hypertension Mother Hypertension; ??? Hypertension Father Hypertension; ??? Coronary artery disease Other Family history of Coronary artery disease; SOCIAL HISTORY Social History Tobacco Use ??? Smoking status: Never Smoker ??? Smokeless tobacco: Never Used Substance and Sexual Activity ??? Drug use: No ??? Sexual activity: None PHYSICAL EXAM: BP 138/82 Pulse 51 Ht 182.9 cm (6') Wt 110.9 kg (244 lb 9.6 oz) SpO2 96% BMI 33.17 kg/m?? General: No apparent distress. Eyes: Sclerae anicteric. Neck: JVP is normal. Chest: No deformity. Respiratory: Clear to auscultation bilaterally with good air movement. Cardiac: Regular rate and rhythm with some ectopy. No murmurs, gallops, rubs. Soft heart sounds. Vascular: 2+ pulses. Abdomen: Soft, nontender, nondistended. Extremities: No significant lower extremity edema. Musculoskeletal: Grossly normal strength throughout. Neurologic: Grossly nonfocal. No dysarthria. Skin: No rashes. Psychiatric: Appropriate affect and interaction. ASSESSMENT & PLAN: Ascending aortic aneurysm (CMS/HCC) CT scan report from today is pending. Blood pressure is suboptimal. Will switch him from metoprololto carvedilol at 25 mg p.o. b.i.d.. Continue losartan. I have ordered a CTA to be performed next year. Pure hypercholesterolemia Restarting him on atorvastatin. The ASCVD Risk score (Satinder DC Jr., et al., 2013) failed to calculate for the following reasons: Cannot find a previous HDL lab The valid total cholesterol range is 130 to 320 mg/dL Will have him return to clinic in one year. Kali Reddy MD documented in this encounter Plan of Treatment Not on file documented as of this encounter Results * CTA Chest W Contrast (06/06/2023 10:04 AM CDT) Anatomical Region Laterality Modality Chest N/A Computed Tomogra phy 06/06/2023 11:5 4 AM CDT Addenda Addendum by Kali Mirza MD on 07/18/2023 10:25 AM CDT ADDENDUM Addendum issued at 07/17/2023 3:20 PM by Chaim Baxter M.D.. This addendum is being submitted to correct a documentation error in the original report. The examination section should have read as follows: CTA CHEST W CONTRAST The technique section should have read as follows: CT angiography of the chest was performed following the uneventful intravenous administration of 93 ml Optiray-350. Vascular 3D images were generated on a dedicated workstation and also reviewed. The remainder of the report remains unchanged. Dictated by: Chaim Baxter M.D. The radiology attending physician has personally reviewed this study, and had reviewed and/or edited this written report and agrees with it. Electronically signed by: Kali Mirza M.D. Impressions 06/06/2023 12:47 PM CDT Stable dilatation of the ascending thoracic aorta up to 5.2 cm in size. Dictated by: Chaim Baxter M.D. The radiology attending physician has personally reviewed this study, and had reviewed and/or edited this written report and agrees with it. Electronically signed by: Kali Mirza M.D. Narrative 06/06/2023 12:47 PM CDT EXAMINATION: ??Computed tomography of the chest with intravenous contrast HISTORY: Thoracic aortic aneurysm follow-up TECHNIQUE: ??Transaxial computed tomographic images of the chest were obtained with intravenous contrast according to the dissection chest protocol after the uneventful administration of 93 mL Opti-Ray 350 intravenous contrast. COMPARISON: CT chest 06/08/2022. FINDINGS: ?? Normal appearance of the thyroid. ??No supraclavicular, axillary, or mediastinal lymphadenopathy. ??Calcified mediastinal lymph nodes, likely the sequela of prior granulomatous infection. Normal heart size without pericardial effusion. ??Scattered areas of coronary artery calcifications. ??The main pulmonary artery is normal in caliber. ??No aortic dissection, intramural aortic hematoma, or penetrating atherosclerotic ulcer of the aorta. ?? Thoracic aortic measurements: * ??Sinuses of valsalva: 5.0 x 4.1 cm, not significantly changed from prior examination. * ??Sinotubular junction: 4.5 x 4.7 cm, not significantly changed from prior examination. * ??Maximum ascending thoracic aorta: 5.2 x 5.2 cm near the main pulmonary artery, not significantly changed from prior examination. * ??The descending thoracic aorta is normal in caliber. No pneumonic consolidation, pleural effusion, or pneumothorax. ??No suspicious pulmonary nodules. ??Bilateral calcified pleural plaques, unchanged from prior examination and can be seen with asbestos related pleural disease. No suspicious osseous lesions. The imaged upper abdomen is unremarkable. Procedure Note Kali Mirza MD - 06/06/2023 EXAMINATION: Computed tomography of the chest with intravenous contrast HISTORY: Thoracic aortic aneurysm follow-up TECHNIQUE: Transaxial computed tomographic images of the chest were obtained with intravenous contrast according to the dissection chest protocol after the uneventful administration of 93 mL Opti-Ray 350 intravenous contrast. COMPARISON: CT chest 06/08/2022. FINDINGS: Normal appearance of the thyroid. No supraclavicular, axillary, or mediastinal lymphadenopathy. Calcified mediastinal lymph nodes, likely the sequela of prior granulomatous infection. Normal heart size without pericardial effusion. Scattered areas of coronary artery calcifications. The main pulmonary artery is normal in caliber. No aortic dissection, intramural aortic hematoma, or penetrating atherosclerotic ulcer of the aorta. Thoracic aortic measurements: * Sinuses of valsalva: 5.0 x 4.1 cm, not significantly changed from prior examination. * Sinotubular junction: 4.5 x 4.7 cm, not significantly changed from prior examination. * Maximum ascending thoracic aorta: 5.2 x 5.2 cm near the main pulmonary artery, not significantly changed from prior examination. * The descending thoracic aorta is normal in caliber. No pneumonic consolidation, pleural effusion, or pneumothorax. No suspicious pulmonary nodules. Bilateral calcified pleural plaques, unchanged from prior examination and can be seen with asbestos related pleural disease. No suspicious osseous lesions. The imaged upper abdomen is unremarkable. IMPRESSION: Stable dilatation of the ascending thoracic aorta up to 5.2 cm in size. Dictated by: Chaim Baxter M.D. The radiology attending physician has personally reviewed this study, and had reviewed and/or edited this written report and agrees with it. Electronically signed by: Kali Mirza M.D. Kali Reddy MD IMG CT PROCEDURES Edited R esult - Final documented in this encounter Visit Diagnoses Diagnosis Pure hypercholesterolemia- Primary Ascending aortic aneurysm (HCC) Thoracic aneurysm without mention of rupture Ascending aortic aneurysm (HCC) Thoracic aneurysm without mention of rupture documented in this encounter Discontinued Medications Medication Sig Discontinue Reason Start Date End Da te metoprolol XL (TOPROL-XL) 100 mg 24 hr tablet Take 1 tablet by mouth once daily 05/02/2022 06/08/2022 atorvastatin (LIPITOR) 40 mg tablet Take 40 mg by mouth daily 06/08/2022 documented as of this encounter Care Teams Applications Sales Representative Relationship Specialty Start Date End Date Noemi Willis NP PCP - General 06/19/18 06/24/23 Kali Reddy MD Consulting Physician Cardiology 05/19/19 documented as of this encounter
--- OUTSIDE RECORDS SUMMARY | 2024-09-29 22:10 | XMS_ITS | Encounter Summary ---
Author Organization [facility] Medical Group Address [address] [place] [address] Care Team Providers Care Electric Accounting Machine Operator Name Role Phone Noemi Willis NP Primary Care Provider [phone] Kali Reddy MD Unavailable [phone] Keaton Lynn MD Unavailable [phone] Reason for Visit * Reason Comments ascending aortic aneurysm * Consultation (Routine) - Closed Specialty Diagnoses / Procedures Referred By Contac t Referred To Contact Cardiothoracic Surgery Diagnoses Aneurysm of ascending aorta without rupture (HCC) Kali Reddy MD [address] [place] [address] Phone: tel: fax: Keaton Lynn MD [address] [place] [address] Phone: tel: fax: Referral ID Status Reason Start Date Expiration Date V isits Requested Visits Authorized [id number] Closed Specialty Services Required 06/06/2023 07/05/2024 1 1 Encounter Details Date Type Department Care Team (Late st Contact Info) Description 06/21/2023 10:45 AM CDT Office Visit Cardiovascular and Thoracic Surgery [address] [place] [id number] Keaton Lynn MD [address] [place] [address] Aneurysm of ascending aorta without [...] any clubs o r organizations such as scientologist groups, unions, fraternal or athletic groups, or [...] place to sleep or slept in a halfway (including now)? No 07/30/2023 Personal Safety Answer Date Recorded Have you ever been in or are you currently in a harmful physical or emotional relationship or is someone making you feel afraid or unsafe? 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 Gender Identity Not on file Sexual Orientation Not on file documented as of this encounter Last Filed Vital Signs Vital Sign Reading Time Taken Comments Blood Pressure 125/67 06/21/2023 10:48 AM CDT Pulse 80 06/21/2023 10:48 AM CDT Temperature - - Respiratory Rate - - Oxygen Saturation 95% 06/21/2023 10:48 AM CDT Inhaled Oxygen Concentration - - Weight 108.9 kg (240 lb) 06/21/2023 10:48 AM CDT Height 182.9 cm (6') 06/21/2023 10:48 AM CDT Body Mass Index 32.55 06/21/2023 10:48 AM CDT documented in this encounter Patient Instructions * Patient Instructions* Hernan Helton RN - 06/21/2023 10:[address] Lynn has recommended surgery to replace your Ascending Aorta, and we have scheduled it for Sunday07/10/23. You will need a cardiac catheterization with Dr. Nicolas Golden prior to surgery. Our office will contact his office to schedule this procedure, and they will contact you with the details. Today we will check pre-op lab studies. 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 I agree with the Practitioner's excellent documentation. I personally examined the patient and formulated the plan. Very active 77 yo known to me from previous visit to Dr. Reddy. Many questions regarding when he can go back to work. Ascending now 5.3 cm. Recent AHA/ACC guidelines support surgical intervention on the ascending aorta when the size reaches 5.0 cm, an increase in the size of the aorta of .5 cm / 12 months or .3 cm /12 months in 2 consecutive years. A recent Philomena analysis revealed up to 70% of acute dissections occur in patients with a known or predicted size of less than the previous 5.5 cm cutoff size recommendation for surgical intervention. Reducing the size indication to 5.0 cm in centers of aortic expertise, such as our own, could reduce the amount of acute aortic dissection by 33%. Additionally, if an aortic valve lesion (aortic regurgitation or stenosis) is the primary reason for intervention, replacement of the ascending is warranted at a smaller size (commonly 4.5 cm). Genetic disorders and vasculitis require closer surveillance and a lower threshold for surgical intervention. A history of Marfan's syndrome, Turners syndrome, bicuspid aortic valve, Aris Danlos syndrome, Loeys-alejandro syndrome ( even as low as 4.2 cm) and family history of dissection or rupture have an increased risk of aorta related complications. Your patient's aortic valve appears trileaflet and does not appear to have a vasculitis, genetic syndrome, or family history of aneurysm complications. My personal measurement of the ascending aorta is 5.3 cm. Additionally groups have advocated for indexed size to the patients height as additional data for stratification of risk of complications in the next 12 months. I reviewed my measurements and purpose of the proposed procedure. We discussed the nature and probability of risks of the proposed procedure or treatment. Including stroke or paralysis 1-2%, 1-2%, and injury to nerves resulting in hoarseness, swallowing difficulty, or dyspnea. I specifically discussed the risk of bleeding and the intent of the transfusion including the possible risks, complications, alternatives, and consequences of not having a transfusion. We also discussed the possibility of renal failure, liver dysfunction, and prolonged intubation. We discussed the benefits to be reasonably expected of the procedure or treatment, alternatives to the proposed procedure and the likely consequences of having no procedure or treatment. This included the possibility of , myocardial infarction, tamponade, valve dysfunction or permanent disability. We discussed pain and recovery associated with the procedure. Also I specifically discussed if the procedure be postponed. Plan: [facility] Minimally invasive ascending and possible aortic valve repair CARLY Melgoza cath My total encounter time was 45minutes and was spent during the activities documented in the note. This includes time spent prior to the visit (specifically reviewing and making my measurements on imaging) and after the visit in direct care of the patient. This time does not include time spent in any separately reportable services. documented in this encounter Plan of Treatment Not on file documented as of this encounter Results * Comprehensive metabolic panel (06/21/2023 1:14 PM CDT) Sodium 140 135 - 145 mmol/L [facility] Potassium, pl 4.1 3.3 - 4.9 mmol/L [facility] Chloride 105 97 - 110 mmol/L [facility] CO2 24 22 - 32 mmol/L [facility] Anion gap 11 2 - 15 mmol/L [facility] BUN 14 6 - 25 mg/dL [facility] Creatinine 0.88 0.80 - 1.30 mg/dL [facility] Glucose 98 70 - 199 mg/dL [facility] Comment: Interpretive Data Fasting glucose >/= 126 [...] interpretive data was last revised 2022. Calcium 9.5 8.5 - 10.3 mg/dL [facility] Bilirubin, total 0.6 0.1 - 1.2 mg/dL [facility] Protein, pl 6.9 6.5 - 8.5 g/dL [facility] Albumin 4.5 3.5 - 5.0 g/dL [facility] Alk phos 70 40 - 130 Units/L [facility] ALT 25 7 - 55 Units/L [facility] AST 27 10 - 50 Units/L [facility] Blood 06/21/2023 1:14 PM CDT 06/21/2023 1:37 PM CDT us Keaton Lynn MD LAB BLOOD ORDERABLES Fin al Result [facility] [address] Department [place] [address] * (ABNORMAL) CBC with auto differential (06/21/2023 1:14 PM CDT) WBC 6.4 3.8 - 9.9 K/cumm [facility] Hgb 13.9 13.0 - 17.5 g/dL [facility] Hct 40.3 38.9 - 50.3 % [facility] Plt 188 150 - 400 K/cumm [facility] MPV 9.4 9.1 - 12.3 fL [facility] RBC 4.24(L) 4.30 - 5.80 M/cumm [facility] MCV 95.0 81.3 - 96.4 fL [facility] MCH 32.8 27.1 - 33.3 pg [facility] MCHC 34.5 32.3 - 35.7 g/dL [facility] RDW CV 12.8 11.1 - 14.9 % [facility] RDW SD 44.1 35.7 - 48.1 fL [facility] NRBC abs 0.00 0.00 - 0.01 K/cumm [facility] Blood 06/21/2023 1:14 PM CDT 06/21/2023 1:37 PM CDT Keaton Lynn MD LAB BLOOD ORDERABLES Fin al Result [facility] [address] [place] [address] * Type and screen (06/21/2023 1:07 PM CDT) Chacorta, indirect Negative [facility] ABO Rh O Positive [facility] Blood 06/21/2023 1:07 PM CDT 06/21/2023 1:48 PM CDT Narrative [facility] - 06/21/2023 2:32 PM CDT PRE-OP AORTIC SURGERY ON 07/10/23 NO BLOOD TRANSFUSIONS PAST 90 DAYS Has the patient had Daratumumab or Isatuximab in the past 6 months?->Unknown Keaton Lynn MD LAB BLOOD BANK TEST ORDE RABLES Final Result Performing Organization Address [facility]/ZIP Co de Phone Number [facility] [address] [place] [address] documented in this encounter Visit Diagnoses Diagnosis Aneurysm of ascending aorta without rupture (HCC) Aneurysm of ascending aorta without rupture (HCC) documented in this encounter Orders Outpatient Referral Count Last Ordered Date Fir st Ordered Date AMB REFERRAL TO CARDIOTHORACIC SURGERY 1 documented in this encounter Care Teams Electric Accounting Machine Operator Relationship Specialty Start Date End Date Noemi Willis NP PCP - General 06/19/18 06/24/23 Kali Reddy MD Consulting Physician Cardiology 05/19/19 Keaton Lynn MD [address] [facility] [address] [place] [address] Consulting Physician Cardiothoracic Surgery 06/07/23 documented as of this encounter
--- OUTSIDE RECORDS SUMMARY | 2024-09-29 22:10 | XMS_ITS | Encounter Summary ---
Author Organization [facility] Healthcare Address [address] [place] [address] Care Team Providers Care Environmental Engineering Professor Name Role Phone Noemi Willis NP Primary Care Provider [phone] Kali Reddy MD Unavailable Keaton Lynn MD Unavailable [phone] Radha Lozada MD Primary Care Provider [phone] Gabby Li NP Primary Care Provider [phone] Encounter Details Date Type Department Care Team (Late st Contact Info) Description 05/25/2020 Telephone [facility] - Imaging [address] [place] [address] Transcribed Order, Provider Social History Tobacco Use Types Packs/Day Years Used Date Smoking Tobacco: Never Smokeless Tobacco: Never Alcohol Use Standard Drinks/Week Comments Yes 0 (1 standard drink = 0.6 oz pur e alcohol) Socially Sex and Gender Information Value Date Recorded Sex Assigned at Not on file 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 Gender Identity Not on file Sexual Orientation Not on file documented as of this encounter Plan of Treatment Not on file documented as of this encounter Visit Diagnoses Not on filedocumented in this encounter Care Teams Environmental Engineering Professor Relationship Specialty Start Date End Date Noemi Willis NP PCP - General 06/19/18 06/24/23 Radha Lozada MD [address] [place] [address] [place] [address] PCP - General Family Medicine 06/25/23 04/29/24 Gabby Li NP [address] [address] PCP - General Family Medicine 04/30/24 Kali Reddy MD Consulting Physician Cardiology 05/19/19 Keaton Lynn MD [address] [facility] [address] [place] [address] Consulting Physician Cardiothoracic Surgery 06/07/23 documented as of this encounter
--- OUTSIDE RECORDS SUMMARY | 2024-09-29 22:10 | XMS_ITS | Encounter Summary ---
Author Organization [facility] Healthcare Address [address] [place] [address] Care Team Providers Care Investment Strategist Name Role Phone Noemi Willis NP Primary Care Provider [phone] Kali Reddy MD Unavailable Keaton Lynn MD Unavailable Encounter Details Date Type Department Care Team (Late st Contact Info) Description 06/21/2023 1:05 PM CDT Lab [facility] Outpatient Lab [address] [place] [address] Aneurysm of ascending aorta without rupture (HCC) Social History Tobacco Use Types Packs/Day Years Used Date Smoking Tobacco: Never Smokeless Tobacco: Never Alcohol Use Standard Drinks/Week Comments Yes 0 (1 standard drink = 0.6 oz pur e alcohol) Socially Sex and Gender Information Value Date Recorded Sex Assigned at Not on file 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 Gender Identity Not on file Sexual Orientation Not on file documented as of this encounter Plan of Treatment Not on file documented as of this encounter Procedures Procedure Name Priority Date/Time Associated Diagnosis Comments EGFR Routine 06/21/2023 1:14 PM CDT Aneurysm of ascending aorta without rupture (HCC) DIFFERENTIAL AUTO Routine 06/21/2023 1:1 4 PM CDT Aneurysm of ascending aorta without rupture (HCC) CBC WITH AUTO DIFFERENTIAL Routine 06/21/2023 1:14 PM CDT Aneurysm of ascending aorta without rupture (HCC) COMPREHENSIVE METABOLIC PANEL Routine 06/21/2023 1:14 PM CDT Aneurysm of ascending aorta without rupture (HCC) HC VENIPUNCTURE Routine 06/21/2023 1:07 PM CDT Aneurysm of ascending aorta without rupture (HCC) documented in this encounter Results * eGFR (06/21/2023 1:14 PM CDT) eGFR 89 mL/min/1. 73 m2 [facility] Comment: Interpretive Data Reference Interval Normal ?>/= [...] interpretive data was last reviewed 2021. Blood 06/21/2023 1:14 PM CDT 06/21/2023 1:37 PM CDT us Keaton Lynn MD LAB BLOOD ORDERABLES Fin al Result [facility] [address] [place] [address] * Differential, auto (06/21/2023 1:14 PM CDT) Neutrophil abs 3.9 1.7 - 6.5 K/cumm [facility] Imm gran abs 0.0 0.0 - 0.1 K/cumm [facility] Lymphocyte abs 1.9 0.8 - 3.3 K/cumm [facility] Monocyte abs 0.4 0.2 - 0.8 K/cumm [facility] Eosinophil abs 0.1 0.0 - 0.5 K/cumm [facility] Basophil abs 0.0 0.0 - 0.1 K/cumm [facility] Neutrophil pct 61.9 % [facility] Comment: Interpretive Data Percent cell count reference ranges are not reported, since discordance with absolute values may lead to misinterpretation of CBC data. Current Interpretive Data was last revised on 2018. Imm gran pct 0.3 % [facility] Comment: Interpretive Data Percent cell count reference ranges are not reported, since discordance with absolute values may lead to misinterpretation of CBC data. Current Interpretive Data was last revised on 2018. Lymphocyte pct 29.7 % [facility] Comment: Interpretive Data Percent cell count reference ranges are not reported, since discordance with absolute values may lead to misinterpretation of CBC data. Current Interpretive Data was last revised on 2018. Monocyte pct 6.9 % [facility] Comment: Interpretive Data Percent cell count reference ranges are not reported, since discordance with absolute values may lead to misinterpretation of CBC data. Current Interpretive Data was last revised on 2018. Eosinophil pct 0.9 % [facility] Comment: Interpretive Data Percent cell count reference ranges are not reported, since discordance with absolute values may lead to misinterpretation of CBC data. Current Interpretive Data was last revised on 2018. Basophil pct 0.3 % [facility] Comment: Interpretive Data Percent cell count reference ranges are not reported, since discordance with absolute values may lead to misinterpretation of CBC data. Current Interpretive Data was last revised on 2018. Blood 06/21/2023 1:14 PM CDT 06/21/2023 1:37 PM CDT Keaton Lynn MD LAB BLOOD ORDERABLES Fin al Result Performing Organization Address [facility]/ZIP Co de Phone Number [facility] [address] [place] [address] * (ABNORMAL) CBC with auto differential (06/21/2023 1:14 PM CDT) WBC 6.4 3.8 - 9.9 K/cumm [facility] Hgb 13.9 13.0 - 17.5 g/dL [facility] Hct 40.3 38.9 - 50.3 % [facility] Plt 188 150 - 400 K/cumm [facility] MPV 9.4 9.1 - 12.[address] [facility] RBC 4.24(L) 4.30 - 5.80 M/cumm [facility] MCV 95.0 81.3 - 96.[address] [facility] MCH 32.8 27.1 - 33.[address] [facility] MCHC 34.5 32.3 - 35.7 g/dL [facility] RDW CV 12.8 11.1 - 14.9 % [facility] RDW SD 44.1 35.7 - 48.[address] [facility] NRBC abs 0.00 0.00 - 0.01 K/cumm [facility] Blood 06/21/2023 1:14 PM CDT 06/21/2023 1:37 PM CDT Keaton Lynn MD LAB BLOOD ORDERABLES Fin al Result Performing Organization Address City/[facility]/ZIP Co de Phone Number [facility] [address] Department [employer] [place], [place] [id number] * Comprehensive metabolic panel (06/21/2023 1:14 PM CDT) Pathologist [facility] Sodium 140 135 - 145 mmol/L [facility] Potassium, pl 4.1 3.3 - 4.9 mmol/L [facility] Chloride 105 97 - 110 mmol/L [facility] CO2 24 22 - 32 mmol/L [facility] Anion gap 11 2 - 15 mmol/L [facility] BUN 14 6 - 25 mg/dL [facility] Creatinine 0.88 0.80 - 1.30 mg/dL [facility] Glucose 98 70 - 199 mg/dL [facility] Comment: Interpretive Data Fasting glucose >/= [...] 2022. Calcium 9.5 8.5 - 10.3 mg/dL [facility] Bilirubin, total 0.6 0.1 - 1.2 mg/dL [facility] Protein, pl 6.9 6.5 - 8.5 g/dL [facility] Albumin 4.5 3.5 - 5.0 g/dL [facility] Alk phos 70 40 - 130 Units/L [facility] ALT 25 7 - 55 Units/L [facility] AST 27 10 - 50 Units/L [facility] Blood 06/21/2023 1:14 PM CDT 06/21/2023 1:37 PM CDT us Keaton Lynn MD LAB BLOOD ORDERABLES Fin al Result [facility] [address] [place] [address] * Type and screen (06/21/2023 1:07 PM CDT) Chacorta, indirect Negative [facility] ABO Rh O Positive [facility] Blood 06/21/2023 1:07 PM CDT 06/21/2023 1:48 PM CDT Narrative [facility] - 06/21/2023 2:32 PM CDT PRE-OP AORTIC SURGERY ON 07/10/23 NO BLOOD TRANSFUSIONS PAST 90 DAYS Has the patient had Daratumumab or Isatuximab in the past 6 months?->Unknown Keaton Lynn MD LAB BLOOD BANK TEST NAYELYNicole JOEY Final Result [facility] [address] [place] [address] documented in this encounter Visit Diagnoses Diagnosis Aneurysm of ascending aorta without rupture (HCC) documented in this encounter Care Teams Investment Strategist Relationship Specialty Start Date End Date Noemi Willis NP PCP - General 06/19/18 06/24/23 Kali Reddy MD Consulting Physician Cardiology 05/19/19 Keaton Lynn MD [address] [facility] [address] [place] [address] Consulting Physician Cardiothoracic Surgery 06/07/23 documented as of this encounter
--- OUTSIDE RECORDS SUMMARY | 2024-09-29 22:10 | XMS_ITS | Encounter Summary ---
Author Organization [facility] Medical Group Address [address] [place] [address] Care Team Providers Care Collar Tacker Name Role Phone Noemi Willis NP Primary Care Provider [phone] Kali Reddy MD Unavailable Encounter Details Date Type Department Care Team (Late st Contact Info) Description 06/09/[address] 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 I have verbal instructions and mailed with appointment reminder. He is not allergic to contrast or dye. documented in this encounter Plan of Treatment Not on file documented as of this encounter Visit Diagnoses Not on filedocumented in this encounter Care Teams Collar Tacker Relationship Specialty Start Date End Date Noemi Willis NP PCP - General 06/19/18 06/24/23 Kali Reddy MD Consulting Physician Cardiology 05/19/19 documented as of this encounter
--- OUTSIDE RECORDS SUMMARY | 2024-09-29 22:10 | XMS_ITS | Encounter Summary ---
Author Organization [facility] Address [address] [place] [address] Care Team Providers Care Event Management Consultant Name Role Phone Noemi Willis NP Primary Care Provider [phone] Kali Reddy MD Unavailable [phone] Reason for Referral * MRI/CAT/PET Scan (Routine) - Closed Specialty Diagnoses / Procedures Referred By Praveenac t Referred To Contact Radiology Diagnoses Ascending aortic aneurysm (HCC) Procedures CTA Chest W Contrast Kali Reddy MD Phone: tel: fax: Referral ID Status Reason Start Date Expiration Date Visits Re quested Visits Authorized [id number] Closed 05/24/2017 11/20/2017 1 1 Reason for Visit * MRI/CAT/PET Scan (Routine) - Closed Specialty Diagnoses / Procedures Referred By Bette velazquez Referred To Contact Radiology Diagnoses Ascending aortic aneurysm (HCC) Procedures CTA Chest W Contrast Kali Reddy MD Phone: tel: fax: Referral ID Status Reason Start Date Expiration Date Visits Re quested Visits Authorized [id number] Closed 05/24/2017 11/20/2017 1 1 Encounter Details Date Type Department Care Team (Latest Contact Info) Description 05/26/2020 8:08 AM CDT - 05/26/2020 11:59 PM CDT Hospital Encounter [facility] - Imaging [address] [place] [phone] Kali Reddy MD [address] [facility] [address] [place] [address] Ascending aortic aneurysm (CMS/HCC) Discharge Disposition: Discharge to home or self care Social History Tobacco Use Types Packs/Day Years Used Date Smoking Tobacco: Never Smokeless Tobacco: Never Alcohol Use Standard Drinks/Week Comments Yes 0 (1 standard drink = 0.6 oz pur e alcohol) Socially Sex and Gender Information Value Date Recorded Sex Assigned at Not on file Legal Sex Male 12:03 PM [employer] Gender Identity Not on file Sexual Orientation Not on file documented as of this encounter Medications at Time of Discharge aspirin 81 mg enteric coated tablet TAKE 1 TABLET BY MOUTH ONCE DAILY 90 tablet 3 09/01/2019 09/06/2020 atorvastatin (LIPITOR) 40 mg tablet Take 1 tablet (40 mg total) by mouth daily 90 tablet 3 05/26/2019 07/05/2020 losartan (COZAAR) 50 mg tablet Take 1 tablet (50 mg total) by mouth daily 90 tablet 3 05/26/2020 06/08/2021 metoprolol XL (TOPROL-XL) 50 mg extended release tablet Take 1 tablet (50 mg total) by mouth daily 90 tablet 3 05/26/2020 06/08/2021 documented as of this encounter Discharge Disposition Disposition Code Departure Means Destination Discharge to home or self care documented in this encounter Plan of Treatment Not on file documented as of this encounter Procedures Procedure Name Priority Date/Time Associated Diagnosis Comments CTA CHEST W CONTRAST Schedule Routine, Read Routine (OP Routine) 05/26/2020 9:16 AM CDT Ascending aortic aneurysm (CMS/HCC) POCT CREATININE FOR CONTRAST EVALUATION Routine 05/26/2020 8:27 AM CDT documented in this encounter Results * CTA Chest W Contrast (05/26/2020 9:16 AM CDT) Anatomical Region Laterality Modality Chest N/A Computed Tomogra phy 05/26/2020 5:38 PM CDT Impressions 05/26/2020 5:53 PM CDT 1. ??Stable aneurysmal dilatation of the ascending aorta with a maximum diameter of 4.9 x 4.8 cm by my my measurement, not substantially changed from prior imaging on 05/26/2019. Electronically signed by: Lew Sterling M.D. Narrative 05/26/2020 5:[address] ANGIOGRAM THORAX WITH AND WITHOUT CONTRAST HISTORY: Thoracic aortic aneurysm. ??Follow-up. COMPARISON: ??Multiple previous CTs, the most recent obtained on 05/26/2019. TECHNIQUE: CT scans were obtained of the thorax without IV contrast. CT scans were obtained using cardiac pitch with cardiac gating during rapid intravenous infusion of 95 mL Optiray 350. ??CTs were sent to a separate 3-D workstation for CT angiographic reconstructions. FINDINGS: Mediastinum: There is no definite hilar or mediastinal lymphadenopathy or mass identified. Vascular structures: See full description below. ??Stable aneurysmal dilatation of the ascending aorta. ??The pulmonary arteries are well-opacified without evidence of pulmonary embolism. ??Coronary artery calcifications are again evident. Heart: The heart is not enlarged. There is no pericardial effusion. Lungs: There is a stable 5 mm nodule medially in the right upper lobe. ??This is unchanged from 2017 and is certainly benign. ??There are no other suspicious pulmonary nodules evident. Pleural spaces: The patient has extensive calcified pleural plaque. Stable. Airways: The central airways are unremarkable. Lower neck: The thyroid is unremarkable. There is no definite lower cervical adenopathy. Osseous structures: There is multilevel degenerative change in the spine. ??No fracture or focal bone destruction is evident. Upper abdomen: ??Visualized portions of the liver, spleen, adrenals, pancreas and kidneys are unremarkable. CT ANGIOGRAM FINDINGS: At the level of the sinuses of Valsalva, the aorta measures 4.3 x 4.3 x 4.1 cm. ??This is not substantially changed from the previous examination. ??At the sinotubular junction, the aorta measures 4.6 x 4.5 cm. ??This is not substantially changed. ??The maximum diameter of the ascending aorta is 4.9 x 4.8 cm by my measurement on reconstructed 3-D images. ??This is not significantly changed from the previous examination. ??When compared to the examination dated 05/24/2017, the aorta at its widest point measured approximately 4.7 x 4.6 cm. ??At the level of the mid arch, the aorta measures 3.9 x 3.8 cm. ??The proximal descending thoracic aorta measures 3.6 x 3.4 cm. At the level of the diaphragmatic hiatus, the aorta measures 3 x 2.9 cm. ??These values are not substantially changed. There is normal origin of the brachiocephalic vessels from the aortic arch. ??The celiac axis and superior mesenteric artery are widely patent. Procedure Note Lew Sterling MD - 05/26/2020 CT ANGIOGRAM THORAX WITH AND WITHOUT CONTRAST HISTORY: Thoracic aortic aneurysm. Follow-up. COMPARISON: Multiple previous CTs, the most recent obtained on 05/26/2019. TECHNIQUE: CT scans were obtained of the thorax without IV contrast. CT scans were obtained using cardiac pitch with cardiac gating during rapid intravenous infusion of 95 mL Optiray 350. CTs were sent to a separate 3-D workstation for CT angiographic reconstructions. FINDINGS: Mediastinum: There is no definite hilar or mediastinal lymphadenopathy or mass identified. Vascular structures: See full description below. Stable aneurysmal dilatation of the ascending aorta. The pulmonary arteries are well-opacified without evidence of pulmonary embolism. Coronary artery calcifications are again evident. Heart: The heart is not enlarged. There is no pericardial effusion. Lungs: There is a stable 5 mm nodule medially in the right upper lobe. This is unchanged from 2017 and is certainly benign. There are no other suspicious pulmonary nodules evident. Pleural spaces: The patient has extensive calcified pleural plaque. Stable. Airways: The central airways are unremarkable. Lower neck: The thyroid is unremarkable. There is no definite lower cervical adenopathy. Osseous structures: There is multilevel degenerative change in the spine. No fracture or focal bone destruction is evident. Upper abdomen: Visualized portions of the liver, spleen, adrenals, pancreas and kidneys are unremarkable. CT ANGIOGRAM FINDINGS: At the level of the sinuses of Valsalva, the aorta measures 4.3 x 4.3 x 4.1 cm. This is not substantially changed from the previous examination. At the sinotubular junction, the aorta measures 4.6 x 4.5 cm. This is not substantially changed. The maximum diameter of the ascending aorta is 4.9 x 4.8 cm by my measurement on reconstructed 3-D images. This is not significantly changed from the previous examination. When compared to the examination dated 05/24/2017, the aorta at its widest point measured approximately 4.7 x 4.6 cm. At the level of the mid arch, the aorta measures 3.9 x 3.8 cm. The proximal descending thoracic aorta measures 3.6 x 3.4 cm. At the level of the diaphragmatic hiatus, the aorta measures 3 x 2.9 cm. These values are not substantially changed. There is normal origin of the brachiocephalic vessels from the aortic arch. The celiac axis and superior mesenteric artery are widely patent. IMPRESSION: 1. Stable aneurysmal dilatation of the ascending aorta with a maximum diameter of 4.9 x 4.8 cm by my my measurement, not substantially changed from prior imaging on 05/26/2019. Electronically signed by: Lew Sterling M.D. us Kali Reddy MD IMG CT PROCEDURES Final Re sult * POCT creatinine for contrast evaluation (05/26/2020 8:27 AM CDT) Creatinine, POC 1.3 0.6 - 1.3 mg/dL Blood specimen (specimen) 05/26/2020 8:27 AM CDT us Kali Reddy MD POINT OF CARE TEST ORDERAB LES Final Result documented in this encounter Visit Diagnoses Diagnosis Ascending aortic aneurysm (HCC) Thoracic aneurysm without mention of rupture documented in this encounter Administered Medications Inactive Administered Medications - up to 3 most recent administrations Medication Order MAR Action Action Date Dose Rate Site ioversoL (OPTIRAY 350) syringe syringe 100 mL 100 mL, intravenous, Once in imaging, contrast, Starting on Sun05/26/20 at 0905, For 1 dose Given 05/26/2020 9:16 AM CDT 95 mL sodium chloride 0.9% flush 125 mL 125 mL, intravenous, Once in imaging, line care, Starting on Sun05/26/20 at 0905, For 1 dose Given 05/26/2020 9:16 AM CDT 80 mL documented in this encounter Care Teams Event Management Consultant Relationship Specialty Start Date End Date Noemi Willis NP PCP - General 06/19/18 06/24/23 Kali Reddy MD Consulting Physician Cardiology 05/19/19 documented as of this encounter
--- OUTSIDE RECORDS SUMMARY | 2024-09-29 22:10 | XMS_ITS | Encounter Summary ---
Author Organization [facility] Address [address] [place] [address] Care Team Providers Care Mopper Name Role Phone Noemi Willis NP Primary Care Provider [phone] Kali Reddy MD Unavailable [phone] Keaton Lynn MD Unavailable [phone] Reason for Referral * Cardiology (Routine) - Closed Specialty Diagnoses / Procedures Referred By Contac t Referred To Contact Diagnoses Aneurysm of ascending aorta without rupture (HCC) Procedures Transthoracic Echo (TTE) Complete W Doppler/CF Kathia Rose NP [address] [facility] [address] [place] [address] Phone: tel: fax: [facility] [address] [place] [address] Referral ID Status Reason Start Date Expiration Date Visits Re quested Visits Authorized [id number] Closed 06/07/2023 07/06/2024 1 1 Reason for Visit * Cardiology (Routine) - Closed Specialty Diagnoses / Procedures Referred By Contac t Referred To Contact Diagnoses Aneurysm of ascending aorta without rupture (HCC) Procedures Transthoracic Echo (TTE) Complete W Doppler/CF Kathia Rose NP [address] [place] [address] Phone: tel: fax:[phone] [facility] [address] [place] [address] Referral ID Status Reason Start Date Expiration Date Visits Re quested Visits Authorized [id number] Closed 06/07/2023 07/06/2024 1 1 Encounter Details Date Type Department Care Team (Latest Contact Info) Description 06/21/2023 9:19 AM CDT - 06/21/2023 11:59 PM CDT Hospital Encounter [facility] OP Cardiac Testing [address] [facility] [address] [place] [address] Keaton Lynn MD [address] [facility] [address] [place], [place] [id number] Aneurysm of ascending aorta without rupture (HCC) [...] on file Legal Sex Male 12:03 PM [employer]INE [employer] Gender Identity Not on file Sexual Orientation Not on file documented as of this encounter Medications at Time of Discharge atorvastatin (LIPITOR) 40 mg tablet Take 1 [...] (TTE) COMPLETE W DOPPLER/CF W CONTRAST Routine 06/21/2023 10:25 AM CDT Aneurysm of ascending aorta without rupture (HCC) documented in this encounter Results * TRANSTHORACIC ECHO (TTE) COMPLETE W DOPPLER/CF W CONTRAST (06/21/2023 10:25 AM CDT) Anatomical Region Laterality Modality Ultrasound 06/21/2023 9:31 AM CDT Narrative 06/21/2023 6:27 PM CDT [facility] [address] [place] [address] ECHOCARDIOGRAM Patient Name: OMAR ADAM L : 1945 Study Date: 06/21/2023 9:31:53 AM Gender: M Tech: HI Ref.Provider: KATHIA ROSE Height(Cm): 183 BSA: 2.37 Weight(Kg): 110.2BP: 138/70 Order Provider: KATHIA ROSE Procedures: Echocardiographic Report: Transthoracic Echocardiogram with 2D, M-Mode, Spectral and Color Flow Doppler examination and administration of intravenous contrast. Indications: Aortic aneurysm, thoracic. Measurements: 2D/M Mode ?Doppler ? Measurement ?Value ?Normal Range ? Measurement ?Value ?Normal Range ? IVSd 2D ?1.28 ? [ 0.60 - 0.90 ] cm ? AV Peak Stan ?2.0 ?[ 1.0 - 1.7 ] m/s ? LVIDd 2D ? 4.61 ? [ 4.20 - 5.90 ] cm ? AV Peak PG ? 16 ? [ 2 - 9 ] mmHg ? LVIDs 2D ? 2.70 ? [ 2.30 - 3.90 ] cm ? AV Mean PG ? 7 ?[ 2 - 4 ] mmHg ? LVPWd 2D ? 1.26 ? [ 0.60 - 1.00 ] cm ? AV VTI ? 31.5 ? cm ? Estimated EF ? 60.00 ?% ?CATHI VTI ?2.8 ?[ 2.0 - 4.0 ] cm2 ? LA Dimension 2D ?2.02 ? [ 3.00 - 4.00 ] cm ? LVOT Peak Stan ?1.30 ? [ 0.70 - 1.10 ] m/s ? AoR Diam 2D ?4.06 ? [ 2.60 - 3.70 ] cm ? LVOT Diam ?2.2 ?[ 1.7 - 2.1 ] cm ? LA Volume Index ?21.16 ?[ 16.00 - 28.00 ] ml/m2 ?LVOT Peak PG ? 7 ?[ 2 - 6 ] mmHg ? TAPSE ?2.13 ? [ 1.60 - 3.00 ] cm ? LVOT VTI ? 23.5 ? [ 20.0 - 30.0 ] cm ? MV Peak PG ? 8 ?[ 1 - 10 ] mmHg ? MV Mean PG ? 4 ?[ <= 5 ] mmHg ? MV E Peak Stan ?0.8 ?[ 0.6 - 1.3 ] m/s ? MV A Peak Stan ?0.9 ?[ 1.0 - 1.2 ] m/s ? MV PHT ? 72.5 ? [ 20.0 - 100.0 ] ms ? MV Decel Time ?223.2 ?[ 104.0 - 258.0 ] ms ? MVA PHT ?3.0 ?[ 2.0 - 4.0 ] ms ? MV E/A Ratio ? 0.9 ? TR Peak Stan ?2.6 ?[ 1.0 - 2.8 ] m/s ? TR Peak PG ? 27 ? mmHg ? PV Peak Stan ?1.1 ?[ 0.4 - 0.8 ] m/s ? PV Peak PG ? 5 ?mmHg ? Lat E` Stan ? 0.15 ? [ 0.10 - 0.15 ] m/s ? Sept E' Stan ?0.05 ? [ 0.08 - 0.15 ] m/s ? E/E` ? 5.33 ? RV S' ?0.18 ? m/s ? - Findings: BP: Blood pressure: 138/70 mmHg. Left Ventricle: Normal global and regional left ventricular systolic function. Ejection Fraction is estimated at 60 %. Left ventricular diastolic function is indeterminate. Normal left ventricular cavity size. Mild concentric left ventricular hypertrophy. Right Ventricle: Normal right ventricular systolic function. Normal right ventricular size. Left Atrium: LA not well visualized. Right Atrium: RA not well visualized. Atrial Septum: Normal appearing atrial septum. Cannot exclude PFO by atrial septal color Doppler interrogation. Mitral Valve: Grossly normal appearing mitral valve. Mitral stenosis is absent. There is no mitral regurgitation. Aortic Valve: Grossly normal appearing aortic valve. Aortic valve appears tricuspid in configuration. There is no aortic stenosis. At least mild aortic valve regurgitation. Tricuspid Valve: Grossly normal appearing tricuspid valve. Trace tricuspid regurgitation. TR envelope inadequate to estimate RVSP. Pulmonic Valve: Pulmonic valve not well visualized. There is no pulmonic stenosis. Mild pulmonic regurgitation. Pericardium: No significant pericardial effusion. Aortic Root and Aorta: Mild aortic root enlargement. Severe ascending aortic enlargement (5.1 cm). Aortic Arch: The aortic arch is poorly visualized. IVC: Normal appearance of the inferior vena cava. Conclusions: 1. Normal global and regional left ventricular systolic function. Ejection Fraction is estimated at 60 %. Left ventricular diastolic function is indeterminate. Normal left ventricular cavity size. Mild concentric left ventricular hypertrophy. 2. Normal right ventricular systolic function. Normal right ventricular size. 3. Grossly normal appearing aortic valve. Aortic valve appears tricuspid in configuration. There is no aortic stenosis. At least mild aortic valve regurgitation. 4. Mild aortic root enlargement. Severe ascending aortic enlargement (5.1 cm). Electronically Signed By: Kali Reddy MD 2023-06-21 18:27:54 CDT CC: CC: Procedure Note Kali Reddy MD - 06/21/2023 [facility] [address] [place] [address] ECHOCARDIOGRAM Patient Name: OMAR ADAM LPatient ID: [id number] : [id number] Date: 06/21/2023 9:31:53 AM Gender: MAccession #: [id number] Tech: SCRef.Provider: KATHIA ROSE Height(Cm): 183BSA: 2.37 Weight(Kg): 110.2BP: 138/70 Order Provider: KATHIA ROSE Procedures: Echocardiographic Report: Transthoracic Echocardiogram with 2D, M-Mode, Spectral and Color FlowDoppler examination and administration of intravenous contrast. Indications: Aortic aneurysm, thoracic. Measurements: 2D/M Mode Doppler Measurement Value Normal Range MeasurementValue Normal Range IVSd 2D 1.28 [ 0.60 - 0.90 ] cm AV Peak Vel2.0 [ 1.0 - 1.7 ] m/s LVIDd 2D 4.61 [ 4.20 - 5.90 ] cm AV Peak PG 16[ 2 - 9 ] mmHg LVIDs 2D 2.70 [ 2.30 - 3.90 ] cm AV Mean PG 7[ 2 - 4 ] mmHg LVPWd 2D 1.26 [ 0.60 - 1.00 ] cm AV VTI31.5 cm Estimated EF 60.00 % CATHI VTI2.8 [ 2.0 - 4.0 ] cm2 LA Dimension 2D 2.02 [ 3.00 - 4.00 ] cm LVOT Peak Vel1.30 [ 0.70 - 1.10 ] m/s AoR Diam 2D 4.06 [ 2.60 - 3.70 ] cm LVOT Diam2.2 [ 1.7 - 2.1 ] cm LA Volume Index 21.16 [ 16.00 - 28.00 ] ml/m2 LVOT Peak PG 7[ 2 - 6 ] mmHg TAPSE 2.13 [ 1.60 - 3.00 ] cm LVOT VTI23.5 [ 20.0 - 30.0 ] cm MV Peak PG 8[ 1 - 10 ] mmHg MV Mean PG 4[ <= 5 ] mmHg MV E Peak Vel0.8 [ 0.6 - 1.3 ] m/s MV A Peak Vel0.9 [ 1.0 - 1.2 ] m/s MV PHT72.5 [ 20.0 - 100.0 ] ms MV Decel Wsdx706.2 [ 104.0 - 258.0 ] ms MVA PHT3.0 [ 2.0 - 4.0 ] ms MV E/A Ratio0.9 TR Peak Vel2.6 [ 1.0 - 2.8 ] m/s TR Peak PG 27mmHg PV Peak Vel1.1 [ 0.4 - 0.8 ] m/s PV Peak PG 5mmHg Lat E` Vel0.15 [ 0.10 - 0.15 ] m/s Sept E' Vel0.05 [ 0.08 - 0.15 ] m/s E/E`5.33 RV S'0.18 m/s - Findings: BP: Blood pressure: 138/70 mmHg. Left Ventricle: Normal global and regional left ventricular systolic function. EjectionFraction is estimated at 60 %. Left ventricular diastolic function is indeterminate.Normal left ventricular cavity size. Mild concentric left ventricular hypertrophy. Right Ventricle: Normal right ventricular systolic function. Normal right ventricularsize. Left Atrium: LA not well visualized. Right Atrium: RA not well visualized. Atrial Septum: Normal appearing atrial septum. Cannot exclude PFO by atrial septal colorDoppler interrogation. Mitral Valve: Grossly normal appearing mitral valve. Mitral stenosis is absent. There isno mitral regurgitation. Aortic Valve: Grossly normal appearing aortic valve. Aortic valve appears tricuspid inconfiguration. There is no aortic stenosis. At least mild aortic valve regurgitation. Tricuspid Valve: Grossly normal appearing tricuspid valve. Trace tricuspid regurgitation.TR envelope inadequate to estimate RVSP. Pulmonic Valve: Pulmonic valve not well visualized. There is no pulmonic stenosis. Mildpulmonic regurgitation. Pericardium: No significant pericardial effusion. Aortic Root and Aorta: Mild aortic root enlargement. Severe ascending aortic enlargement (5.1cm). Aortic Arch: The aortic arch is poorly visualized. IVC: Normal appearance of the inferior vena cava. Conclusions: 1. Normal global and regional left ventricular systolic function. EjectionFraction is estimated at 60 %. Left ventricular diastolic function is indeterminate.Normal left ventricular cavity size. Mild concentric left ventricular hypertrophy. 2. Normal right ventricular systolic function. Normal right ventricularsize. 3. Grossly normal appearing aortic valve. Aortic valve appears tricuspidin configuration. There is no aortic stenosis. At least mild aortic valveregurgitation. 4. Mild aortic root enlargement. Severe ascending aortic enlargement (5.1cm). Electronically Signed By: Kali Reddy MD 2023-06-21 18:27:54 CDT CC: CC: Kathia Rose NP CV ECHO PROCEDURES Final Result documented in this encounter Visit Diagnoses Diagnosis Aneurysm of ascending aorta without rupture (HCC) documented in this encounter Administered Medications Inactive Administered Medications - up to 3 most recent administrations Medication Order MAR Action Action Date Dose Rate Site perflutren protein-a (OPTISON) 3 mL in sodium chloride 0.9% 8 mL syringe 1-8 mL, intravenous, Once in imaging, contrast, Starting on [place] 06/21/23 at 1025, For 1 dose, Intra-Procedure (CV) Contrast Given 06/21/2023 10:26 AM CDT 2 mL documented in this encounter Orders Medications Ordered That Jorge ht Not Have Been Administered Count Last Ordered Date First Ordered Date perflutren protein-a (OPTISO N) 3 mL in sodium chloride 0.9% 8 mL syringe 1 06/21/2023 documented in this encounter Care Teams Mopper Relationship Specialty Start Date End Date Noemi Willis NP PCP - General 06/19/18 06/24/23 Kali Reddy MD Consulting Physician Cardiology 05/19/19 Keaton Lynn MD [address] [place] [address] Consulting Physician Cardiothoracic Surgery 06/07/23 documented as of this encounter
--- OUTSIDE RECORDS SUMMARY | 2024-09-29 22:10 | XMS_ITS | Encounter Summary ---
Author Organization [facility] Facility Care Team Providers Care Hand Sign Writer Name Role Phone Emelina Khan MD Primary Care Provider [phone] Encounter Details Date Type Department Care Team (Latest Contact Info) Description 11/18/2015 12:18 PM MANAGER OF FINANCIAL - 11/18/2015 11:59 PM MANAGER OF FINANCIAL Hospital Encounter [facility] Kali Reddy MD [address] [place] [address] Combined rheumatic disorders of mitral, aortic and tricuspid valves; Other specified rheumatic heart diseases; Thoracic aortic aneurysm without rupture (CMS/HCC) Social History Tobacco Use Types Packs/Day Years Used Date Smoking Tobacco: Never Assessed Sex and Gender Information Value Date Recorded Sex Assigned at Not on file Legal 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 Gender Identity Not on file Sexual Orientation Not on file documented as of this encounter Medications at Time of Discharge losartan (COZAAR) 25 mg tablet take 1 tablet by oral route every day 90 4 11/02/2015 05/03/2017 metoprolol XL (TOPROL-XL) 25 mg 24 hr tablet take 1 tablet by oral route every day 90 4 11/02/2015 07/20/2017 documented as of this encounter Plan of Treatment Not on file documented as of this encounter Procedures Procedure Name Priority Date/Time Associated Diagnosis Comments MRI CARDIAC M&FUNC W WO CONTRAST Routine 11/18/2015 2:47 PM MANAGER OF FINANCIAL XR FACIAL BONES LESS THAN 3 VIEWS Routine 11/18/2015 1:04 PM MANAGER OF FINANCIAL documented in this encounter Results * MRI Cardiac M&Func WWO Contrast (11/18/2015 2:47 PM MANAGER OF FINANCIAL) Anatomical Region Laterality Modality Body N/A Magnetic Resonan ce 11/18/2015 2:47 PM MANAGER OF FINANCIAL Narrative 11/18/2015 4:55 PM MANAGER OF FINANCIAL Cardiac MRI with and without contrast was performed on a 1.5 T scanner to evaluate myocardial morphology, function, viability and to assess aortic valve morphology in a patient with thoracic aortic aneurysm. 1. The left ventricle is borderline mildly enlarged with moderate, concentric hypertrophy. Global systolic function is normal. The estimated LV ejection fraction is 60%. There are no regional wall motion abnormalities. 2. The right ventricle is normal in cavity size, wall thickness, and systolic function. 3. The left atrium is mildly enlarged. The right atrium is moderately enlarged. 4. The aortic valve is trileaflet in morphology. There is moderate aortic valve regurgitation. There is mild mitral regurgitation. There is mild tricuspid regurgitation. There is mild pulmonic regurgitation. 5. Delayed enhancement imaging demonstrates no evidence of myocardial infarction, scar or infiltrative disease. 6. The abdominal aorta is noted to be tortuous. The aortic root is enlarged. Electronically signed by: Kali Reddy M.D. Radiologist: KALI REDDY ?? Attending: ??KALI REDDY Requesting: KALI REDDY Requesting Fax: ?? Requesting ID: [id number] Attending Fax: ?? Attending ID: ?? [id number] Completed Time: ?? 11/18/2015 2:47 PM Dictated Time: ?11/18/2015 4:55 PM Transcribed Time: 11/18/2015 4:55 PM Signed by: ?KALI REDDY ?? on 11/18/2015 4:55 PM Report To 1 ID: Report To 1 Name: , Report To 1 FAX: Report To 2 ID: Report To 2 Name: , Report To 2 FAX: Report To 3 ID: Report To 3 Name: , Report To 3 FAX: NextGen Order #: Procedure Note Provider, MD Sandra - 02/09/2017 Cardiac MRI with and without contrast was performed on a 1.5 T scanner to evaluate myocardial morphology, function, viability and to assess aortic valve morphology in a patient with thoracic aortic aneurysm. 1. The left ventricle is borderline mildly enlarged with moderate, concentric hypertrophy. Global systolic function is normal. The estimated LV ejection fraction is 60%. There are no regional wall motion abnormalities. 2. The right ventricle is normal in cavity size, wall thickness, and systolic function. 3. The left atrium is mildly enlarged. The right atrium is moderately enlarged. 4. The aortic valve is trileaflet in morphology. There is moderate aortic valve regurgitation. There is mild mitral regurgitation. There is mild tricuspid regurgitation. There is mild pulmonic regurgitation. 5. Delayed enhancement imaging demonstrates no evidence of myocardial infarction, scar or infiltrative disease. 6. The abdominal aorta is noted to be tortuous. The aortic root is enlarged. Electronically signed by: Kali Reddy M.D. Radiologist: KALI REDDY Attending: KALI REDDY Requesting: KALI REDDY Requesting Requesting ID: [id number] Attending Attending ID: [id number] Completed Time: 11/18/2015 2:47 PM Dictated Time: 11/18/2015 4:55 PM Transcribed Time: 11/18/2015 4:55 PM Signed by: KALI REDDY on 11/18/2015 4:55 PM Report To 1 ID: Report To 1 Name: , Report To 1 FAX: Report To 2 ID: Report To 2 Name: , Report To 2 FAX: Report To 3 ID: Report To 3 Name: , Report To 3 FAX: NextGen Order #: us Historical Provider MD BERGER MRI PROCEDURES Final Result * XR Facial Bones < 3 View (11/18/2015 1:04 PM MANAGER OF FINANCIAL) Anatomical Region Laterality Modality Head and Neck N/A Radiographic Veronica ging 11/18/2015 1:04 PM MANAGER OF FINANCIAL Narrative 11/18/2015 1:11 PM MANAGER OF FINANCIAL TWO-VIEW ORBIT RADIOGRAPH 11/18/2015 HISTORY: Evaluate for metal in eye prior to MRI FINDINGS: Two-view ORBIT radiograph shows no evidence of metallic foreign body overlying the orbits. ??The paranasal sinuses appear normal. IMPRESSION: Negative. Electronically signed by: Abimbola Castle M.D. Radiologist: ABIMBOLA CASTLE M.D. ?? Attending: ??RAMEZ CORONA Requesting: RAMEZ CORONA Requesting Fax: ?? Requesting ID: [id number] Attending Fax: ?? Attending ID: ?? [id number] Completed Time: ?? 11/18/2015 1:04 PM Dictated Time: ?11/18/2015 1:11 PM Transcribed Time: 11/18/2015 1:11 PM Signed by: ?ABIMBOLA CASTLE ??Rupali on 11/18/2015 1:11 PM Report To 1 ID: Report To 1 Name: , Report To 1 FAX: Report To 2 ID: Report To 2 Name: , Report To 2 FAX: Report To 3 ID: Report To 3 Name: , Report To 3 FAX: NextGen Order #: Procedure Note Provider, MD Sandra - 02/09/2017 TWO-VIEW ORBIT RADIOGRAPH 11/18/2015 HISTORY: Evaluate for metal in eye prior to MRI FINDINGS: Two-view ORBIT radiograph shows no evidence of metallic foreign body overlying the orbits. The paranasal sinuses appear normal. IMPRESSION: Negative. Electronically signed by: Abimbola Castle M.D. Radiologist: ABIMBOLA CASTLE M.D. Attending: RAMEZ CORONA Requesting: RAMEZ CORONA Requesting Requesting ID: [id number] Attending Attending ID: [id number] Completed Time: 11/18/2015 1:04 PM Dictated Time: 11/18/2015 1:11 PM Transcribed Time: 11/18/2015 1:11 PM Signed by: ABIMBOLA CASTLE M.D. on 11/18/2015 1:11 PM Report To 1 ID: Report To 1 Name: , Report To 1 FAX: Report To 2 ID: Report To 2 Name: , Report To 2 FAX: Report To 3 ID: Report To 3 Name: , Report To 3 FAX: NextGen Order #: us Historical Provider MD BERGER XR PROCEDURES Final R esult documented in this encounter Visit Diagnoses Diagnosis Combined rheumatic disorders of mitral, aortic and tricuspid valves Other specified rheumatic heart diseases Thoracic aortic aneurysm without rupture (HCC) documented in this encounter Care Teams Hand Sign Writer Relationship Specialty Start Date End Date Emelina Khan MD [address] [address] PCP - General 10/19/15 11/22/16 documented as of this encounter
--- OUTSIDE RECORDS SUMMARY | 2024-09-29 22:10 | XMS_ITS | Encounter Summary ---
Author Organization [facility] Address [address] [place] [address] Care Team Providers Care Diet Clerk Name Role Phone Noemi Willis NP Primary Care Provider [phone] Kali Reddy MD Unavailable Reason for Visit * Reason Onset Date Comments Test Results 06/08/2022 Encounter Details Date Type Department Care Team (Late st Contact Info) Description 06/08/2022 Telephone [facility] Cardiology [address] [place] [address] Osmin Barbosa MD [address] [place] [address] Test Results Social History Tobacco Use Types Packs/Day Years Used Date Smoking Tobacco: Never Smokeless Tobacco: Never Alcohol Use Standard Drinks/Week Comments Yes 0 (1 standard drink = 0.6 oz pur e alcohol) Socially Sex and Gender Information Value Date Recorded Sex Assigned at Not on file 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 * Telephone Encounter - Florence Contreras RDCS - 06/08/2022 12:45 PM CDT ----- Message from Kali Reddy MD sent at 06/08/2022 12:39 PM CDT ----- Call the patient to inform that this study looks good. * Telephone Encounter - Florence Contreras RDCS - 06/08/2022 12:45 PM CDT ----- Message from Kali Reddy MD sent at 06/08/2022 12:39 PM CDT ----- Call the patient to inform that this study looks good. documented in this encounter Plan of Treatment Not on file documented as of this encounter Visit Diagnoses Not on filedocumented in this encounter Care Teams Diet Clerk Relationship Specialty Start Date End Date Noemi Willis NP PCP - General 06/19/18 06/24/23 Kali Reddy MD Consulting Physician Cardiology 05/19/19 documented as of this encounter
--- OUTSIDE RECORDS SUMMARY | 2024-09-29 22:10 | XMS_ITS | Encounter Summary ---
Author Organization [facility] Address [address] [address] Care Team Providers Care Rubber Washer Name Role Phone Noemi Willis NP Primary Care Provider Kali Reddy MD Unavailable Encounter Details Date Type Department Care Team (Late st Contact Info) Description 06/09/2021 Telephone [facility] Cardiology 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 Reddy. Pt there to have AST/ALT lisa. Will fax orders now. [phone] documented in this encounter Plan of Treatment Not on file documented as of this encounter Visit Diagnoses Not on filedocumented in this encounter Care Teams Rubber Washer Relationship Specialty Start Date End Date Noemi Willis NP PCP - General 06/19/18 06/24/23 Kali Reddy MD Consulting Physician Cardiology 05/19/19 documented as of this encounter
--- OUTSIDE RECORDS SUMMARY | 2024-09-29 22:10 | XMS_ITS | Encounter Summary ---
Author Organization [facility] Address [address] [place] [address] Care Team Providers Care Flue Cleaner Name Role Phone Noemi Willis NP Primary Care Provider [phone] Kali Reddy MD Unavailable [phone] Reason for Referral * MRI/CAT/PET Scan (Routine) - Closed Specialty Diagnoses / Procedures Referred By Contac t Referred To Contact Radiology Diagnoses Ascending aortic aneurysm (HCC) Procedures CTA Chest W Contrast Kali Reddy MD Phone: tel: fax: [facility] [address] [place] [address] Referral ID Status Reason Start Date Expiration Date Visits Re quested Visits Authorized [id number] Closed 06/08/2021 07/08/2022 1 1 Reason for Visit * MRI/CAT/PET Scan (Routine) - Closed Specialty Diagnoses / Procedures Referred By Contac t Referred To Contact Radiology Diagnoses Ascending aortic aneurysm (HCC) Procedures CTA Chest W Contrast Kali Reddy MD Phone: tel: fax: [facility] [address] [place] [address] Referral ID Status Reason Start Date Expiration Date Visits Re quested Visits Authorized [id number] Closed 06/08/2021 07/08/2022 1 1 Encounter Details Date Type Department Care Team (Latest Contact Info) Description 06/08/2022 8:36 AM CDT - 06/08/2022 11:59 PM CDT Hospital Encounter [facility] - Imaging [address] [place] [address] Ascending aortic aneurysm (CMS/HCC) (HCC) Discharge Disposition: Discharge to home or self care Social History Tobacco Use Types Packs/Day Years Used Date Smoking Tobacco: Never Smokeless Tobacco: Never Alcohol Use Standard Drinks/Week Comments Yes 0 (1 standard drink = 0.6 oz pur e alcohol) Socially Sex and Gender Information Value Date Recorded Sex Assigned at Not on file 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 Gender Identity Not on file Sexual Orientation Not on file documented as of this encounter Medications at Time of Discharge atorvastatin (LIPITOR) 40 mg tablet Take 1 tablet (40 mg total) by mouth daily 90 tablet 3 06/08/2022 05/16/2023 carvediloL (COREG) 25 mg tablet Take 1 tablet (25 mg total) by mouth 2 (two) times a day with meals 180 tablet 3 06/08/2022 05/16/2023 losartan (COZAAR) 100 mg tablet Take 1 tablet by mouth once daily 45 tablet 05/02/2022 06/27/2022 documented as of this encounter Discharge Disposition Disposition Code Departure Means Destination Discharge to home or self care documented in this encounter Plan of Treatment Not on file documented as of this encounter Procedures Procedure Name Priority Date/Time Associated Diagnosis Comments CTA CHEST W CONTRAST Schedule Routine, Read Routine (OP Routine) 06/08/2022 11:38 AM CDT Ascending aortic aneurysm (CMS/HCC) (HCC) POCT CREATININE FOR CONTRAST EVALUATION Routine 06/08/2022 8:53 AM CDT documented in this encounter Results [...] sult * POCT creatinine for contrast evaluation (06/08/2022 8:53 AM CDT) Creatinine, POC 1.2 0.6 - 1.5 mg/dL Blood specimen (specimen) 06/08/2022 8:53 AM CDT Kali Reddy MD POINT OF [...] Once in imaging, contrast, Starting on [place] 06/08/22 at 0941, For 1 dose Contrast Given 06/08/2022 9:59 AM CDT 87 mL documented in this encounter Orders Medications Ordered That Jorge ht Not Have Been Administered Count Last Ordered Date First Ordered Date ioversoL (OPTIRAY 350) syringe 100 mL 1 documented in this encounter Care Teams Flue Cleaner Relationship Specialty Start Date End Date Noemi Willis NP PCP - General 06/19/18 06/24/23 Kali Reddy MD Consulting Physician Cardiology 05/19/19 documented as of this encounter
--- OUTSIDE RECORDS SUMMARY | 2024-09-29 22:10 | XMS_ITS | Encounter Summary ---
Author Organization [facility] Healthcare Address [address] [place] [address] Care Team Providers Care Wage Conciliator Name Role Phone Noemi Willis NP Primary Care Provider [phone] Kali Reddy MD Unavailable [phone] Reason for Referral * Hospital - Outpatient (Routine) - Closed Specialty Diagnoses / Procedures Referred By Contac t Referred To Contact Radiology Diagnoses Ascending aortic aneurysm (HCC) Procedures CTA Chest W Contrast Kali Reddy MD Phone: tel: fax: [place] [facility] [address] [place] [address] Referral ID Status Reason Start Date Expiration Date Visits Re quested Visits Authorized [id number] Closed 05/26/2020 06/25/2021 1 1 Reason for Visit * Hospital - Outpatient (Routine) - Closed Specialty Diagnoses / Procedures Referred By Praveenac t Referred To Contact Radiology Diagnoses Ascending aortic aneurysm (HCC) Procedures CTA Chest W Contrast Kali Reddy MD Phone: tel: fax: [facility] [address] [place] [address] Referral ID Status Reason Start Date Expiration Date Visits Re quested Visits Authorized [id number] Closed 05/26/2020 06/25/2021 1 1 Encounter Details Date Type Department Care Team (Latest Contact Info) Description 06/08/2021 9:15 AM CDT - 06/08/2021 11:59 PM CDT Hospital Encounter 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 Gender Identity Not on file Sexual Orientation Not on file documented as of this encounter Medications at Time of Discharge atorvastatin (LIPITOR) 40 mg tablet Take 1 tablet by mouth once daily 90 tablet 06/08/2021 06/09/2021 atorvastatin (LIPITOR) 40 mg tablet Take 40 mg by mouth daily 06/08/2022 losartan (COZAAR) 100 mg tablet Take 1 tablet (100 mg total) by mouth daily 90 tablet 3 06/08/2021 05/02/2022 metoprolol XL (TOPROL-XL) 100 mg 24 hr tablet Take 1 tablet (100 mg total) by mouth daily 90 tablet 3 06/08/2021 05/02/2022 documented as of this encounter Discharge Disposition Disposition Code Departure Means Destination Discharge to home or self care documented in this encounter Plan of Treatment Not on file documented as of this encounter Procedures Procedure Name Priority Date/Time Associated Diagnosis Comments CTA CHEST W CONTRAST Schedule Routine, Read Routine (OP Routine) 06/08/2021 10:22 AM CDT Ascending aortic aneurysm (CMS/HCC) (HCC) POCT CREATININE FOR CONTRAST EVALUATION Routine 06/08/2021 9:47 AM CDT documented in this encounter Results * CTA Chest W Contrast (06/08/2021 10:22 AM CDT) Anatomical Region Laterality Modality Chest N/A Computed Tomogra phy 06/08/2021 4:12 PM CDT Impressions 06/08/2021 4:32 PM CDT Stable aneurysmal dilatation of the ascending thoracic aorta measuring up to 51 mm when remeasured on the prior study in a similar fashion. Dictated by: Tenzin Vazquez M.D. Electronically signed by: Isabel Parrish M.D. Narrative 06/08/2021 4:32 PM CDT EXAMINATION: ??CT ANGIOGRAPHY OF THE CHEST WITH CONTRAST HISTORY: Thoracic aortic aneurysm. TECHNIQUE: CT angiography of the chest was performed following the uneventful intravenous administration of 95 ml Optiray-350. Vascular 3D images were generated on a dedicated workstation and also reviewed. COMPARISON: 05/26/2020 FINDINGS: ?? VASCULAR FINDINGS: There is unchanged aneurysmal dilatation of the ascending thoracic aorta. ??There is mild atherosclerosis of the thoracic aorta. There is no evidence of acute aortic syndrome or aortic instability. Thoracic aortic measurements are as follows: Sinuses of Valsalva (cusp to commissure): 43 mm x 43 mm x 41 mm, unchanged Sinotubular junction: 45 mm x 44 mm, similar to prior study Maximum ascending aorta: 51 mm x 50 mm, unchanged when remeasured on the prior study in a similar fashion Mid aortic arch: 38 mm x 37 mm, similar to prior study Maximum descending aorta: 33 mm x 33 mm, similar to prior study Heart is normal in size. Mild coronary artery calcification. NON-VASCULAR FINDINGS: No pericardial effusion. Thyroid gland is normal. No thoracic lymphadenopathy. Central airways are patent. There is a 5 mm solid nodule in the medial right upper lobe which is stable dating back to 2017 and likely benign given long-term stability. Calcified granulomas in the lungs and calcified mediastinal and hilar lymph nodes, consistent with old granulomatous disease. No pleural effusion or pneumothorax. Unchanged bilateral pleural calcification. Esophagus and visualized upper abdomen are unremarkable. Degenerative changes of the spine. Hemangioma in the T4 vertebral body. No suspicious osseous lesion. Procedure Note Isabel Parrish MD - 06/08/2021 EXAMINATION: CT ANGIOGRAPHY OF THE CHEST WITH CONTRAST HISTORY: Thoracic aortic aneurysm. TECHNIQUE: CT angiography of the chest was performed following the uneventful intravenous administration of 95 ml Optiray-350. Vascular 3D images were generated on a dedicated workstation and also reviewed. COMPARISON: 05/26/2020 FINDINGS: VASCULAR FINDINGS: There is unchanged aneurysmal dilatation of the ascending thoracic aorta. There is mild atherosclerosis of the thoracic aorta. There is no evidence of acute aortic syndrome or aortic instability. Thoracic aortic measurements are as follows: Sinuses of Valsalva (cusp to commissure): 43 mm x 43 mm x 41 mm, unchanged Sinotubular junction: 45 mm x 44 mm, similar to prior study Maximum ascending aorta: 51 mm x 50 mm, unchanged when remeasured on the prior study in a similar fashion Mid aortic arch: 38 mm x 37 mm, similar to prior study Maximum descending aorta: 33 mm x 33 mm, similar to prior study Heart is normal in size. Mild coronary artery calcification. NON-VASCULAR FINDINGS: No pericardial effusion. Thyroid gland is normal. No thoracic lymphadenopathy. Central airways are patent. There is a 5 mm solid nodule in the medial right upper lobe which is stable dating back to 2017 and likely benign given long-term stability. Calcified granulomas in the lungs and calcified mediastinal and hilar lymph nodes, consistent with old granulomatous disease. No pleural effusion or pneumothorax. Unchanged bilateral pleural calcification. Esophagus and visualized upper abdomen are unremarkable. Degenerative changes of the spine. Hemangioma in the T4 vertebral body. No suspicious osseous lesion. IMPRESSION: Stable aneurysmal dilatation of the ascending thoracic aorta measuring up to 51 mm when remeasured on the prior study in a similar fashion. Dictated by: Tenzin Vazquez M.D. Electronically signed by: Isabel Parrish M.D. Kali Reddy MD IMG CT PROCEDURES Final Re sult * POCT creatinine for contrast evaluation (06/08/2021 9:47 AM CDT) Creatinine, POC 1.3 0.6 - 1.5 mg/dL SANDEEP REYNA Blood specimen (specimen) 06/08/2021 9:47 AM CDT Kali Reddy MD POINT OF CARE TEST ORDERAB LES Final Result SANDEEP REYNA [address] [facility] Department [place] [address] documented in this encounter Visit Diagnoses Diagnosis Ascending aortic aneurysm (HCC) Thoracic aneurysm without mention of rupture documented in this encounter Administered Medications Inactive Administered Medications - up to 3 most recent administrations Medication Order MAR Action Action Date Dose Rate Site ioversoL (OPTIRAY 350) syringe syringe 100 mL 100 mL, intravenous, Once in imaging, contrast, Starting on Sun06/08/21 at 1005, For 1 dose Contrast Given 06/08/2021 10:22 AM CDT 95 mL sodium chloride 0.9% flush 125 mL 125 mL, intravenous, Once in imaging, line care, Starting on Sun06/08/21 at 1005, For 1 dose Given 06/08/2021 10:22 AM CDT 80 mL documented in this encounter Care Teams Wage Conciliator Relationship Specialty Start Date End Date Noemi Willis NP PCP - General 06/19/18 06/24/23 Kali Reddy MD Consulting Physician Cardiology 05/19/19 documented as of this encounter
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
--- OUTSIDE RECORDS SUMMARY | 2024-09-29 22:10 | XMS_ITS | Encounter Summary ---
Author Organization [facility] Medical Group Address [address] [place] [address] Care Team Providers Care Endorsement Clerk Name Role Phone Noemi Willis NP Primary Care Provider [phone] Klai Reddy MD Unavailable [phone] Encounter Details Date Type Department Care Team (Late st Contact Info) Description 07/19/2022 Orders Only [facility] Medical Group Cardiology [address] [facility] [address] [place] [address] Provider, MD Sandra [address] [place] [address] Social History Tobacco Use Types Packs/Day Years Used Date Smoking Tobacco: Never Smokeless Tobacco: Never Alcohol Use Standard Drinks/Week Comments Yes 0 (1 standard drink = 0.6 oz pur e alcohol) Socially Sex and Gender Information Value Date Recorded Sex Assigned at Not on file 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 Gender Identity Not on file Sexual Orientation Not on file documented as of this encounter Plan of Treatment Not on file documented as of this encounter Procedures Procedure Name Priority Date/Time Associated Diagnosis Comments HEPATIC FUNCTION PANEL Routine 07/17/2022 10:00 AM CDT LIPID PANEL Routine 07/17/2022 10:00 AM CDT BASIC METABOLIC PANEL Routine 07/17/2022 10:00 AM CDT documented in this encounter Results * Hepatic function panel (07/17/2022 10:00 AM CDT) Pathologist [facility] SCRIBED Protein, Total, Serum 7.1 - - - g/dL [facility] SCRIBED Albumin 4.3 - - - g/dl [facility] SCRIBED Bilirubin, Total 1.10 - - - mg/dL [facility] SCRIBED Bilirubin, Direct 0.00 - - - mg/dL [facility] SCRIBED Alkaline Phosphatase 60 - - - Units/L [facility] SCRIBED Aspartate Transaminase (AST) 25 - - - Units/L [facility] SCRIBED Alanine Transaminase (ALT) 18 - - - Units/L [facility] Blood Historical Provider MD LAB BLOOD ORDERABLES Edit ed Result - Final [facility] [address] [phone] * Lipid panel (07/17/2022 10:00 AM CDT) [facility] SCRIBED Cholesterol, Total 107 140 - 199 [facility] SCRIBED HDL 37 40 [facility] SCRIBED LDL 46 - - - [facility] SCRIBED Triglycerides 119 - - - [facility] Blood Historical Provider MD LAB BLOOD ORDERABLES Edit ed Result - Final [facility] [address] [phone] * Basic metabolic panel (07/17/2022 10:00 AM CDT) [facility] SCRIBED Sodium 139 - - - mmol/L [facility] SCRIBED Potassium 4.4 - - - mmol/L [facility] SCRIBED Chloride 104 - - - mmol/L [facility] SCRIBED Carbon Dioxide 27 - - - mmol/L [facility] SCRIBED Anion Gap 12.4 14 - 22 mmol/L [facility] SCRIBED Urea Nitrogen (BUN) 17 - - - mg/dl [facility] SCRIBED Creatinine 1.00 - - - mg/dl [facility] SCRIBED Glucose 99 - - - mg/dl [facility] SCRIBED Calcium 9.4 - - - mg/dl [facility] SCRIBED eGFR in NonAfrican Libyan 60 - - - [facility] Blood us Historical Provider LAB BLOOD ORDERABLES Edit ed Result - Final [facility] [address] [phone] documented in this encounter Visit Diagnoses Not on filedocumented in this encounter Care Teams Endorsement Clerk Relationship Specialty Start Date End Date Noemi Willis NP PCP - General 06/19/18 06/24/23 Kali Reddy MD Consulting Physician Cardiology 05/19/19 documented as of this encounter
--- OUTSIDE RECORDS SUMMARY | 2024-09-29 22:10 | XMS_ITS | Encounter Summary ---
Author Organization [facility] Healthcare Address [address] [place] [address] Care Team Providers Care Fur Buyer Name Role Phone Noemi Willis NP Primary Care Provider [phone] Reason for Referral * Hospital - Outpatient (Routine) - Closed Specialty Diagnoses / Procedures Referred By Praveenac t Referred To Contact Radiology Diagnoses Ascending aortic aneurysm (HCC) Procedures CTA Chest W Contrast Kali Reddy MD Phone: tel: fax: [place] [address] [place] [address] Referral ID Status Reason Start Date Expiration Date Visits Re quested Visits Authorized [id number] Closed 05/21/2018 11/30/2019 1 1 Reason for Visit * Hospital - Outpatient (Routine) - Closed Specialty Diagnoses / Procedures Referred By Bette velazquez Referred To Contact Radiology Diagnoses Ascending aortic aneurysm (HCC) Procedures CTA Chest W Contrast Kali Reddy MD Phone: tel: fax: [place] [place] [address] Referral ID Status Reason Start Date Expiration Date Visits Re quested Visits Authorized [id number] Closed 05/21/2018 11/30/2019 1 1 Encounter Details Date Type Department Care Team (Latest Contact Info) Description 06/21/2018 8:54 AM CDT - 06/21/2018 11:59 PM CDT Hospital Encounter [facility] - Imaging [address] [place] [address] Kali Reddy MD [address] [address] [place] [address] Ascending aortic aneurysm (CMS/HCC) Discharge Disposition: Discharge to home or self care Social History Tobacco Use Types Packs/Day Years Used Date Smoking Tobacco: Never Smokeless Tobacco: Never Alcohol Use Standard Drinks/Week Comments Yes 0 (1 standard drink = 0.6 oz pur e alcohol) Socially Sex and Gender Information Value Date Recorded Sex Assigned at Not on file 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 90 tablet 3 02/21/2018 03/01/2019 losartan (COZAAR) 25 mg tablet Take 1 tablet (25 mg total) by mouth daily. 90 tablet 3 05/21/2018 08/04/2019 metoprolol XL (TOPROL-XL) 25 mg 24 hr tablet Take 1 tablet (25 mg total) by mouth daily. 90 tablet 3 05/21/2018 06/21/2019 documented as of this encounter Discharge Disposition Disposition Code Departure Means Destination Discharge to home or self care documented in this encounter Plan of Treatment Not on file documented as of this encounter Procedures Procedure Name Priority Date/Time Associated Diagnosis Comments CTA CHEST W CONTRAST Schedule Routine, Read Routine (OP Routine) 06/21/2018 10:02 AM CDT Ascending aortic aneurysm (CMS/HCC) POCT CREATININE FOR CONTRAST EVALUATION Routine 06/21/2018 9:31 AM CDT documented in this encounter Results * CTA Chest W Contrast (06/21/2018 10:02 AM CDT) Anatomical Region Laterality Modality Chest N/A Computed Tomogra phy 06/21/2018 2:34 PM CDT Impressions 06/21/2018 3:17 PM CDT 1. ??Stable ectatic ascending thoracic aorta measuring up to 4.9 cm. See above for additional aortic measurements. 2. ??Calcified pleural plaques. 3. ??Stable right upper lobe 4 mm pulmonary nodule. Electronically signed by: ANGELA PETERS MD Narrative 06/21/2018 3:[address] ANGIOGRAM CHEST [...] sult * POCT creatinine for contrast evaluation (06/21/2018 9:31 AM CDT) Creatinine, POC 1.3 0.6 - 1.3 mg/dL Blood specimen (specimen) 06/21/2018 9:31 AM CDT us Kali Reddy MD POINT OF CARE TEST ORDERAB LES Final Result documented in this encounter Visit Diagnoses Diagnosis Ascending aortic aneurysm (HCC) Thoracic aneurysm without mention of rupture documented in this encounter Administered Medications Inactive Administered Medications - up to 3 most recent administrations Medication Order MAR Action Action Date Dose Rate Site ioversol (OPTIRAY 350) syringe syringe 100 mL 100 mL, intravenous, Once in imaging, contrast, Starting on Sun06/21/18 at 0952, For 1 dose Given 06/21/2018 10:03 AM CDT 95 mL sodium chloride 0.9% flush 125 mL 125 mL, intravenous, Once in imaging, line care, Starting on Sun06/21/18 at 0952, For 1 dose Given 06/21/2018 10:04 AM CDT 125 mL documented in this encounter Care Teams Fur Buyer Relationship Specialty Start Date End Date Noemi Willis NP PCP - General 06/19/18 06/24/23 documented as of this encounter
--- OUTSIDE RECORDS SUMMARY | 2024-09-29 22:10 | XMS_ITS | Encounter Summary ---
Author Organization [facility] Care Team Providers Care Boat Camp Operator Name Role Phone Emelina Khan MD Primary Care Provider [phone] Encounter Details Date Type Department Care Team (Latest Contact Info) Description 05/24/2016 9:07 AM CDT - 05/24/2016 11:59 PM CDT Hospital Encounter [facility] Kali Reddy MD [address] 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 MR angiography of the chest was performed in axial as well as sagittal oblique projections. ??Two-dimensional ghau-fa-pfirji as well as black blood imaging were utilized without contrast. ??A full dose of Dotarem was utilized. Examination reveals fusiform dilatation of the ascending aorta measuring 5.2 cm. There is significant artifact on the contrast images which makes evaluation very limited. ??The bright blood images and black blood images reveal no evidence of dissection. ??The descending thoracic aorta is tortuous but not aneurysmal. ??The descending thoracic aorta measures 3 cm. There is no evidence of mediastinal or hilar lymphadenopathy. IMPRESSION: 1. ??Compromised examination due to artifact. 2. ??Fusiform dilatation of the ascending aorta to 5.2 cm. 3. ??No gross evidence of intimal dissection. Edited by: DELILAH MATOS Electronically signed by: Ramone Andrade M.D. Radiologist: RAMONE ANDRADE MD ?? Attending: ??KALI REDDY Requesting: KALI REDDY Requesting Fax: ?? Requesting ID: [id number] Attending Fax: ?? Attending ID: ?? [id number] Completed Time: ?? 05/24/2016 10:50 AM Dictated Time: ?05/24/2016 5:06 PM Transcribed Time: 05/24/2016 5:21 PM Signed by: ?RAMONE ANDRADE MD ?? on 05/24/2016 6:34 PM Report To 1 ID: Report To 1 Name: , Report To 1 FAX: Report To 2 ID: Report To 2 Name: , Report To 2 FAX: Report To 3 ID: Report To 3 Name: , Report To 3 FAX: NextGen Order #: Procedure Note Provider, MD Sandra - 02/09/2017 MR ANGIOGRAM OF THE CHEST HISTORY: Descending aortic aneurysm I71.2. MR angiography of the chest was performed in axial as well as sagittal oblique projections. Two-dimensional ytjq-iu-raubek as well as black blood imaging were utilized without contrast. A full dose of Dotarem was utilized. Examination reveals fusiform dilatation of the ascending aorta measuring 5.2 cm. There is significant artifact on the contrast images which makes evaluation very limited. The bright blood images and black blood images reveal no evidence of dissection. The descending thoracic aorta is tortuous but not aneurysmal. The descending thoracic aorta measures 3 cm. There is no evidence of mediastinal or hilar lymphadenopathy. IMPRESSION: 1. Compromised examination due to artifact. 2. Fusiform dilatation of the ascending aorta to 5.2 cm. 3. No gross evidence of intimal dissection. Edited by: DELILAH MATOS Electronically signed by: Ramone Andrade M.D. Radiologist: RAMONE ANDRADE MD Attending: KALI REDDY Requesting: KALI REDDY Requesting Requesting ID: [id number] Attending Attending ID: [id number] Completed Time: 05/24/2016 10:50 AM Dictated Time: 05/24/2016 5:06 PM Transcribed Time: 05/24/2016 5:21 PM Signed by: RAMONE ANDRADE MD on 05/24/2016 6:34 PM Report To 1 ID: Report To 1 Name: , Report To 1 FAX: Report To 2 ID: Report To 2 Name: , Report To 2 FAX: Report To 3 ID: Report To 3 Name: , Report To 3 FAX: NextGen Order #: Historical Provider MD BERGER MRI PROCEDURES Final Result documented in this encounter Visit Diagnoses Diagnosis Thoracic aortic aneurysm without rupture (HCC) documented in this encounter Care Teams Boat Camp Operator Relationship Specialty Start Date End Date Emelina Khan MD [address] [address] PCP - General 1/5/16 2 documented as of this encounter
--- OUTSIDE RECORDS SUMMARY | 2024-09-29 22:10 | XMS_ITS | Encounter Summary ---
Author Organization [facility] Medical Group Address [address] [place] [address] Care Team Providers Care Dandy Tender Name Role Phone Noemi Willis NP Primary Care Provider [phone] Kali Reddy MD Unavailable [phone] Reason for Visit * Reason Comments Aortic Aneurysm f/u Encounter Details Date Type Department Care Team (Latest Contact Info) Description 05/26/2019 10:00 AM CDT [facility] [place] [facility] [address] [facility] [address] [place] [address] 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 Gender Identity Not on file Sexual Orientation Not on file documented as of this encounter Last Filed Vital Signs Vital Sign Reading Time Taken Comments Blood Pressure 118/64 05/26/2019 9:57 AM CDT Pulse 84 05/26/2019 9:57 AM CDT Temperature - - Respiratory Rate - - Oxygen Saturation 94% 05/26/2019 9:57 AM CDT Inhaled Oxygen Concentration - - Weight 109.3 kg (241 lb) 05/26/2019 9:57 AM CDT Height 182.9 cm (6') 05/26/2019 9:57 AM CDT Body Mass Index 32.69 05/26/2019 9:57 AM CDT documented in this encounter Ordered Prescriptions Prescription Sig Dispense Quantity Refills Last Filled Start Date End Date atorvastatin (LIPITOR) 40 mg tablet Take 1 tablet (40 mg total) by mouth daily 90 tablet 3 05/26/2019 07/05/2020 documented in this encounter Progress Notes * Kali Reddy MD - 05/26/2019 10:00 AM CDT [facility] [place] [address] [address] Cardiology MD Kali Mckeon, MD Wellington Dugan, MD Wellington Farrell, MD Ian Sahni, DO Parish Monae, MD Osmin Barbosa, MD Jakcie Patiño, MD Everardo Briscoe, DO Cassie Mario, COREROOM FOUNDRY LABORER Beth Smith, COREROOM FOUNDRY LABORER Patient Name: Omar Adam Provider: Kali Reddy MD : 1945 Date of Service: 05/26/2019 Referring: Lazaro CHIEF COMPLAINT: Aortic Aneurysm (f/u) TESTING/DATA: Pronounced BRAULIO-MEN is Jackie Landry of [...] dimension 4.9 cm at the ascending aorta. HISTORY OF PRESENT ILLNESS: Omar Adam is a very pleasant 73 y.o. male with a history which includes severe thoracic aorticaneurysm (no high risk features, surgical referral at 5.5 cm, he has elected for chronic CT scans rather than MRA because of some claustrophobia) who returns to clinic for follow-up. When I saw him last he was doing very well. I ordered CTA to be performed at that time as well as repeat CTA for oneyear. His CTA at that time showed stable aneurysm. He returns to clinic feeling quite well. No chest pain or dyspnea. He remains fairly physically active. ALLERGY Patient has no known allergies. MEDICATIONS Outpatient Encounter Medications as of 05/26/2019 Medication Sig Dispense Refill ??? aspirin 81 mg tablet TAKE 1 TABLET BY MOUTH ONCE DAILY 90 tablet 3 ??? atorvastatin (LIPITOR) 20 mg tablet TAKE 1 TABLET BY MOUTH ONCE DAILY 90 tablet 3 ??? losartan (COZAAR) 25 mg tablet Take 1 tablet (25 mg total) by mouth daily. 90 tablet 3 ??? metoprolol XL (TOPROL-XL) 25 mg 24 hr tablet Take 1 tablet (25 mg total) by mouth daily. 90 tablet 3 Facility-Administered Encounter Medications as of 05/26/2019 Medication Dose Route Frequency Provider Last Rate Last Dose ??? [COMPLETED] ioversol (OPTIRAY 350) syringe syringe 100 mL 100 mL intravenous Once in imaging Kali Reddy MD 95 mL at 05/26/19 0923 ??? [COMPLETED] sodium chloride 0.9% flush 125 mL 125 mL intravenous Once in imaging Kali Reddy MD 80 mL at 05/26/19922 PAST MEDICAL HISTORY Past Medical History: Diagnosis Date ??? Arthritis Arthritis; Comments: [facility] 10/19/2015 - ??? HX OTHER MEDICAL ascending aortic aneurysm; Comments: [facility] 10/19/2015 - ??? Hypertension Hypertension ??? Sleep [...] use: Yes Comment: Socially PHYSICAL EXAM: BP 118/64 (BP Location: Right arm, Patient Position: Sitting) Pulse 84 Ht 182.9 cm (6') Wt 109.3 kg (241 lb) SpO2 94% BMI 32.69 kg/m?? General: No apparent distress. Eyes: Sclerae anicteric. Neck: JVP is normal. Chest: No deformity. Respiratory: Clear to auscultation bilaterally with good air movement. Cardiac: Regular rate and rhythm. No murmurs, gallops, rubs. Vascular: 2+ pulses throughout. Abdomen: Soft, nontender, nondistended. Extremities: No lower extremity edema. Musculoskeletal: Grossly normal strength throughout. Neurologic: Nonfocal. No dysarthria. Skin: No rashes. Psychiatric: Appropriate affect and interaction. ASSESSMENT & PLAN: Ascending aortic aneurysm (CMS/HCC) CT scan from today is pending. Continue his medical regimen. Will increase atorvastatin to 40 mg asper the most recent ACC/AHA guidelines. Pure hypercholesterolemia Increasing statin as noted above. Return to clinic in one year. Kali Reddy MD documented in this encounter Plan of Treatment Not on file documented as of this encounter Procedures Procedure Name Priority Date/Time Associated Diagnosis Comments POCT LIPID PANEL Routine 05/26/2019 10:4 0 AM CDT Pure hypercholesterolemia documented in this encounter Results * POCT lipid panel (05/26/2019 10:40 AM CDT) Cholesterol, POC 102 mg/dL HDL, POC 39 mg/dL Triglycerides, POC 98 mg/dL LDL Cholesterol POC 43 mg/dL Chol/HDL Ratio, POC 2.6 Non-HDL Cholesterol, POC 63 mg/dL Capillary blood 05/26/2019 1 0:40 AM CDT us Kali Reddy MD POINT OF CARE TEST ORDERAB LES Final Result documented in this encounter Visit Diagnoses Diagnosis Ascending aortic aneurysm (HCC)- Primary Thoracic aneurysm without mention of rupture Pure hypercholesterolemia documented in this encounter Discontinued Medications Medication Sig Discontinue Reason Start Date End Da te atorvastatin (LIPITOR) 20 mg tablet TAKE 1 TABLET BY MOUTH ONCE DAILY Reorder 03/03/2019 05/26/2019 documented as of this encounter Care Teams Dandy Tender Relationship Specialty Start Date End Date Noemi Willis NP PCP - General 06/19/18 06/24/23 Kali Reddy MD Consulting Physician Cardiology 05/19/19 documented as of this encounter
--- OUTSIDE RECORDS SUMMARY | 2024-09-29 22:10 | XMS_ITS | Encounter Summary ---
Author Organization [facility] Healthcare Address [address] [place] [address] Care Team Providers Care Otr Flatbed Company Truck Driver Name Role Phone Kali Reddy MD Unavailable [phone] Keaton Lynn MD Unavailable [phone] Radha Lozada MD Primary Care Provider [phone] Reason for Visit * Auth/Cert (Routine) Specialty Diagnoses / Procedures Referred By Contac t Referred To Contact Diagnoses Aneurysm of ascending aorta without rupture (HCC) Aneurysm of ascending aorta without rupture (HCC) [I71.21] Procedures [place] CATH PLMT L HRT & ARTS W/NJX & ANGIO IMG S&I LEFT HEART CATHETERIZATION WITH CORONARY ANGIOGRAPHY AND WITH OR WITHOUT LEFT VENTRICULOGRAM [id number] Referral ID Status Reason Start Date Expiration Date Visits Re quested Visits Authorized [id number] 1 1 Encounter Details Date Type Department Care Team (Latest Contact Info) Description 06/28/2023 6:51 AM CDT - 06/28/2023 2:19 PM CDT Hospital Encounter [facility] [address] [place] [address] Nicolas Golden MD [address] [facility] [address] [place] [address] Aneurysm of ascending aorta without [...] on file Legal Sex Male 12:03 PM 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 Gender Identity Not on file Sexual Orientation Not on file documented as of this encounter Last Filed Vital Signs Vital Sign Reading Time Taken Comments Blood Pressure 128/76 06/28/2023 11:11 AM CDT Pulse 62 06/28/2023 11:11 AM CDT Temperature 36.2 ??C (97.1 ??F) 06/28/2023 7:00 AM CD T Respiratory Rate 11 06/28/2023 9:00 AM CDT Oxygen Saturation 93% 06/28/2023 11: 11 AM CDT Inhaled Oxygen Concentration - - Weight 111.2 kg (245 lb 3.2 oz) 06/28/2023 7:00 AM CDT Height 182.9 cm (6') 06/28/2023 7:00 AM CDT Body Mass Index 33.26 06/28/2023 7:00 AM CDT documented in this encounter Discharge Instructions * Discharge Instructions* Debi Nathan RN - 06/28/2023 11:13 AM CDT Cardiac Laboratory [address] [place], [place] [address] [facility] Discharge Instructions---Radial Angiogram MEDICATIONS [] Do not [...] for any reason without discussing with your recreation program coordinator first. - These medications may make you [...] home diet [] Special diet Instructed by Cash Teller ACTIVITY You have been given medications which [...] documented in this encounter H&P Notes * Nicolas Golden MD - 06/28/2023 8:51 AM CDT I have reviewed the H&P, examined the patient, and endorse the findings as written. Plan of Care : Based on the above findings, I consider Omar Adam to be an acceptable risk for : Procedure(s): LEFT HEART CATHETERIZATION WITH CORONARY ANGIOGRAPHY AND WITH OR WITHOUT LEFT VENTRICULOGRAM [id number] Source Note - Aviva Perez PA - [...] is primarily with heavy lifting. 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 [facility] [place] [facility], [id number], [address] Left Heart Catheterization Procedure Report 77 year [...] and draped in sterile fashion. A 6 Danish sheath was inserted in the Right Radial [...] from the original result were not included. [facility] ?? [address] [place] [address], [id number] ?? [place], [place], [facility] ?? Left Heart Catheterization Procedure Report 77 [...] and draped in sterile fashion. A 6 Danish sheath was inserted in the Right Radial [...] Dose Rate Site sodium chloride 0.9% infusion 50 mL/hr, intravenous, [...] (CV) 0940 (Given - Provid er: Wellington Beckford RN) heparin 1,000 unit/mL injection (CANCELED) Code/trauma/sedation medication, Starting on Helena 9/14/23 at 0947, Intra-Procedure (CV) 0947 (Given - [...] (CV) 0941 (Given - Provid er: Wellington Beckford RN) niCARdipine (CARDENE) 500 mcg/5 mL in [...] Count Last Ordered Date First Ordered Date fentaNYL (SUBLIMAZE) preserv ative free injection 06/28/2023 heparin 1,000 unit/mL injection 1 heparin in 0.9% sodium chlor allyson 1,000 units/500 mL (2 unit/mL) infusion (premix) 1 06/28/2023 ioversoL (OPTIRAY 350) injection 1 06/28/20 lidocaine (XYLOCAINE) 20 mg/ mL (2 %) injection 1 06/28/2023 midazolam (VERSED) 1 mg/mL p reservative free injection 1 06/28/2023 niCARdipine (CARDENE) 500 mc g/5 mL in sodium chloride 0.9% (premix) 1 06/28/2023 nitroglycerin injection 100 mcg/mL in D5W 10 mL 1 06/28/2023 sodium chloride 0.9% infusion 1 06/28/2023 Discharge Count Last Ordered Date First Orde red Date DISCHARGE PATIENT 1 06/28/2023 documented in this encounter Care Teams Otr [employer] Truck Driver Relationship Specialty Start Date End Date Radha Lozada MD [facility] [place] [address] PCP - General Family Medicine 06/25/23 04/29/24 Kali Reddy MD Consulting Physician Cardiology 05/19/19 Keaton Lynn MD [address] [place] [address] Consulting Physician Cardiothoracic Surgery 06/07/23 documented as of this encounter
--- OUTSIDE RECORDS SUMMARY | 2024-09-29 22:10 | XMS_ITS | Encounter Summary ---
Author Organization [facility] Address [address] [facility] [address] [place] [address] Care Team Providers Care Assembler Plastic Boat Name Role Phone Noemi Willis NP Primary Care Provider [phone] Kali Reddy MD Unavailable Keaton Lynn MD Unavailable Encounter Details Date Type Department Care Team (Late st Contact Info) Description 06/22/2023 Telephone [facility] Cardiology [address] [facility] [address] [place] [address] Nicolas Golden MD [address] [facility] [address] [place] [address] Social History Tobacco Use Types Packs/Day Years Used Date Smoking Tobacco: Never Smokeless Tobacco: Never Alcohol Use Standard Drinks/Week Comments Yes 0 (1 standard drink = 0.6 oz pur e alcohol) Socially Sex and Gender Information Value Date Recorded Sex Assigned at Not on file 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 CCL notified and schedules updated. (Pt will keep current estimated arrival at 0700, as CCL is to call to confirm day prior per normal protocol). * Addendum Note - Crista Carrillo II - 06/22/2023 9:40 AM CDTAddended by: CRISTA CARRILLO on: 06/22/2023 09:40 AM Modules accepted: Orders * Telephone Encounter - Crista Carrillo II - 06/22/2023 9:38 AM CDT Pt has been scheduled for 06/28 estimated arrival at 0700 for 0800 (in room A due to room E being booked). Advised pt's spouse that CCL should call day prior around [phone] to confirm next day's actual arrival time and gave contact number [phone] to call if not received. Jackie verbalized understanding of prep instructions. Labs on file from 06/21. [id number] /[facility]. Marked on schedules and snapboard, scheduled with CCL. 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 ----- Message ----- From: Nicolas Golden MD Sent: 06/21/2023 3:03 PM CDT To: Hernan Helton RN; # Subject: RE: Dr.Josh Lynn pre-op needs [facility] prior to # Can probably squeeze in next ----- Message ----- From: Hernan Helton RN Sent: 06/21/2023 2:55 PM CDT To: Nicolas Golden MD; # Subject: Dr.Josh Lynn pre-op needs LHC prior to aneu# Hi This patient is scheduled for Replacement of Ascending Aorta on 07/10/23. [address] Golden please do a pre-op LHC on him next week or early the following week? Dr. Lynn prefers a week between the cath and surgery if possible. Thanks so much! Hernan documented in this encounter Plan of Treatment Not on file documented as of this encounter Visit Diagnoses Diagnosis Aneurysm of ascending aorta without rupture (HCC)- Primary documented in this encounter Orders Case Request Count Last Ordered Date First Orde red Date CASE REQUEST CONSUMER RELATIONS SPECIALIST 1 06/22/2023 documented in this encounter Care Teams Assembler Plastic Boat Relationship Specialty Start Date End Date Noemi Willis NP PCP - General 06/19/18 06/24/23 Kali Reddy MD Consulting Physician Cardiology 05/19/19 Keaton Lynn MD [address] [facility] [address] [place] [address] Consulting Physician Cardiothoracic Surgery 06/07/23 documented as of this encounter
--- OUTSIDE RECORDS SUMMARY | 2024-09-29 22:10 | XMS_ITS | Encounter Summary ---
Author Organization [facility] Address [address] [facility] [address] [place] [address] Care Team Providers Care Secondary School Teacher Librarian Name Role Phone Noemi Willis NP Primary Care Provider [phone] Kali Reddy MD Unavailable Reason for Visit * Reason Onset Date Comments CTA results 05/27/2019 Encounter Details Date Type Department Care Team (Late st Contact Info) Description 05/27/2019 Telephone [facility] Cardiology [address] [facility] [address] [place] [address] Kali Reddy MD [facility] [facility] [address] [place] [address] CTA results Social History Tobacco Use Types Packs/Day Years Used Date Smoking Tobacco: Never Smokeless Tobacco: Never Alcohol Use Standard Drinks/Week Comments Yes 0 (1 standard drink = 0.6 oz pur e alcohol) Socially Sex and Gender Information Value Date Recorded Sex Assigned at Not on file 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 * Telephone Encounter - Eleonora Viramontes - 05/27/2019 11:00 AM CDT ----- Message from Kali Reddy MD sent at 05/27/2019 7:29 AM CDT ----- Call the patient to inform that this study looks good. documented in this encounter Plan of Treatment Not on file documented as of this encounter Visit Diagnoses Not on filedocumented in this encounter Care Teams Secondary School Teacher Librarian Relationship Specialty Start Date End Date Noemi Willis NP PCP - General 06/19/18 06/24/23 Kali Reddy MD Consulting Physician Cardiology 05/19/19 documented as of this encounter
--- OUTSIDE RECORDS SUMMARY | 2024-09-29 22:10 | XMS_ITS | Encounter Summary ---
Author Organization [facility] Address [address] [facility] [address] [place] [address] Care Team Providers Care Sales Process Manager Name Role Phone Noemi Willis NP Primary Care Provider [phone] Kali Reddy MD Unavailable [phone] Reason for Visit * Reason Onset Date Comments ct results 05/27/2020 Encounter Details Date Type Department Care Team (Late st Contact Info) Description 05/27/2020 Telephone [facility] Medical [facility] Cardiology [address] [facility] [address] [place] [address] Kali Reddy MD [facility] [facility] [address] [place] [address] ct results Social History Tobacco Use Types Packs/Day Years Used Date Smoking Tobacco: Never Smokeless Tobacco: Never Alcohol Use Standard Drinks/Week Comments Yes 0 (1 standard drink = 0.6 oz pur e alcohol) Socially Sex and Gender Information Value Date Recorded Sex Assigned at Not on file 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 * Telephone Encounter - Eleonora Viramontes - 05/27/2020 2:26 PM CDT ----- Message from Kali Reddy MD sent at 05/27/2020 7:58 AM CDT ----- Call the patient to inform that this study looks good. documented in this encounter Plan of Treatment Not on file documented as of this encounter Visit Diagnoses Not on filedocumented in this encounter Care Teams Sales Process Manager Relationship Specialty Start Date End Date Noemi Willis NP PCP - General 06/19/18 06/24/23 Kali Reddy MD Consulting Physician Cardiology 05/19/19 documented as of this encounter
--- OUTSIDE RECORDS SUMMARY | 2024-09-29 22:10 | XMS_ITS | Encounter Summary ---
Author Organization [facility] Address [address] [facility] [address] [place] [address] Care Team Providers Care Arabic Linguist Name Role Phone Noemi Willis NP Primary Care Provider [phone] Kali Reddy MD Unavailable [phone] Reason for Referral * Hospital - Outpatient (Routine) - Closed Specialty Diagnoses / Procedures Referred By Bette velazquez Referred To Contact Radiology Diagnoses Ascending aortic aneurysm (HCC) Procedures CTA Chest W Contrast Kali Reddy MD Phone: tel: fax: [id number] [place] [address] Referral ID Status Reason Start Date Expiration Date Visits Re quested Visits Authorized [id number] Closed 05/26/2020 06/25/2021 1 1 Reason for Visit * Reason Comments Aneurysms Encounter Details Date Type Department Care Team (Latest Contact Info) Description 05/26/2020 10:00 AM CDT Office Visit [facility] Cardiology [address] [facility] [address] [place] [address] Kali Reddy MD [address] [facility] [address] [place] [address] Ascending aortic aneurysm (CMS/HCC) (Primary Dx); Pure hypercholesterolemia Social History Tobacco Use Types Packs/Day Years Used Date Smoking Tobacco: Never Smokeless Tobacco: Never Alcohol Use Standard Drinks/Week Comments Yes 0 (1 standard drink = 0.6 oz pur e alcohol) Socially Sex and Gender Information Value Date Recorded Sex Assigned at Not on file 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 Gender Identity Not on file Sexual Orientation Not on file documented as of this encounter Last Filed Vital Signs Vital Sign Reading Time Taken Comments Blood Pressure 134/78 05/26/2020 9:36 AM CDT Pulse 69 05/26/2020 9:36 AM CDT Temperature - - Respiratory Rate - - Oxygen Saturation 98% 05/26/2020 9:36 AM CDT Inhaled Oxygen Concentration - - Weight 108.9 kg (240 lb) 05/26/2020 9:36 AM CDT Height 182.9 cm (6') 05/26/2020 9:36 AM CDT Body Mass Index 32.55 05/26/2020 9:36 AM CDT documented in this encounter Ordered Prescriptions Prescription Sig Dispense Quantity Refills Last Filled Start Date End Date metoprolol XL (TOPROL-XL) 50 mg extended release tablet Take 1 tablet (50 mg total) by mouth daily 90 tablet 3 05/26/2020 06/08/2021 losartan (COZAAR) 50 mg tablet Take 1 tablet (50 mg total) by mouth daily 90 tablet 3 05/26/2020 06/08/2021 documented in this encounter Progress Notes * Kali Reddy MD - 05/26/2020 10:00 AM CDT Images from the original note were not included. [facility] [place] [address] [address] Cardiology MD Kali Mckeon, MD Wellington Dugan, MD Ian Sahni, DO Parish Monae, MD Osmin Barbosa, MD Nicolas Wilson MD K. Bryan Trimmer, DO Rory Dowling, MD Beth Smith, HEAVY EQUIPMENT OPERATING ENGINEER Devi Carrasco, HEAVY EQUIPMENT OPERATING ENGINEER Patricia Campbell, HEAVY EQUIPMENT OPERATING ENGINEER Patient Name: Omar Adam Provider: Kali Reddy MD : 1945 Date of Service: 05/26/2020 Referring: Lazaro CHIEF COMPLAINT: Aneurysms TESTING/DATA: Pronounced BRAULIO-MEN is Jackie Landry of [...] chest 05/2019: Maximum dimension 4.9 cm, stable. HISTORY OF PRESENT ILLNESS: This note was dictated with voice-recognition software, roofing sales representative errors may be present. Omar Adam is a very pleasant 74 y.o. male with a history which includes severe thoracic aorticaneurysm (no high risk features, surgical referral at 5.5 cm, he has elected for chronic CT scans, which he would like to do annually, rather than MRA because of some claustrophobia) who returns to clinic for follow-up. When I saw him last he was doing very well. I increased his statin dose. Returns for his annual follow-up. He had CT aortogram performed earlier today. She returns to clinic feeling quite well. No chest pain/pressure/tightness or dyspnea. He continuesto be quite active physically and is without exertional symptoms. ALLERGY Patient has no known allergies. MEDICATIONS Outpatient Encounter Medications as of 05/26/2020 Medication Sig Dispense Refill ??? aspirin 81 mg enteric coated tablet TAKE 1 TABLET BY MOUTH ONCE DAILY 90 tablet 3 ??? atorvastatin (LIPITOR) 40 mg tablet Take 1 tablet (40 mg total) by mouth daily 90 tablet 3 ??? losartan (COZAAR) 25 mg tablet Take 1 tablet by mouth once daily 60 tablet 0 ??? metoprolol XL (TOPROL-XL) 25 mg 24 hr tablet TAKE 1 TABLET BY MOUTH ONCE DAILY 90 tablet 3 Facility-Administered Encounter Medications as of 05/26/2020 Medication Dose Route Frequency Provider Last Rate Last Dose ??? [COMPLETED] ioversoL (OPTIRAY 350) syringe syringe 100 mL 100 mL intravenous Once in imaging Kali Reddy MD 95 mL at 05/26/20 0916 ??? [COMPLETED] sodium chloride 0.9% flush 125 mL 125 mL intravenous Once in imaging Kali Reddy MD 80 mL at 05/26/20 0916 PAST MEDICAL HISTORY Past Medical History: Diagnosis Date ??? Arthritis Arthritis; Comments: [facility] 10/19/2015 - ??? HX OTHER MEDICAL ascending aortic aneurysm; Comments: [facility] 10/19/2015 - ??? Hypertension Hypertension [...] use: Yes Comment: Socially PHYSICAL EXAM: BP 134/78 (BP Location: Right arm, Patient Position: Sitting) Pulse 69 Ht 182.9 cm (6') Wt 108.9 kg (240 lb) SpO2 98% BMI 32.55 kg/m?? General: No apparent distress. Eyes: Sclerae anicteric. Neck: JVP is normal. Chest: No deformity. Respiratory: Clear to auscultation bilaterally with good air movement. Cardiac: Regular rate and rhythm. No murmurs, gallops, rubs. Vascular: 2+ pulses. Abdomen: Soft, nontender, nondistended. Extremities: No lower extremity edema. Musculoskeletal: Grossly normal strength throughout. Neurologic: Grossly nonfocal. No dysarthria. Skin: No rashes. Psychiatric: Appropriate affect and interaction. ASSESSMENT & PLAN: Ascending aortic aneurysm (CMS/HCC) CT scan from today is pending. Continue his medical regimen. Blood pressure not quite optimal so will double his metoprolol and losartan doses. Most recent BMP looked just fine. His aortic dimensionshave been stable for a few years now and so I offered spacing out the CTA studies but he would liketo continue to do them annually. I have ordered a CTA to be performed next year. Pure hypercholesterolemia Continue statin. The ASCVD Risk score (Satinder ROSY Jr., [...] Associated Diagnosis Comments POCT LIPID PANEL Routine 05/26/2020 10:5 5 AM CDT Pure hypercholesterolemia documented in this [...] Final Re sult * POCT lipid panel (05/26/2020 10:55 AM CDT) Cholesterol, POC 101 mg/dL HDL, POC 38 mg/dL Triglycerides, POC 79 mg/dL LDL Cholesterol POC 47 mg/dL Chol/HDL Ratio, POC 2.7 Non-HDL Cholesterol, POC 63 mg/dL Cholesterol Total, POC 101 mg/dL Capillary blood 05/26/2020 1 0:55 AM CDT Kali Reddy MD POINT OF CARE TEST ORDERAB LES Final Result documented in this encounter Visit Diagnoses Diagnosis Ascending aortic aneurysm (HCC)- Primary Thoracic aneurysm without mention of rupture Pure hypercholesterolemia Ascending aortic aneurysm (HCC) Thoracic aneurysm without mention of rupture documented in this encounter Discontinued Medications Medication Sig Discontinue Reason Start Date End Da te losartan (COZAAR) 25 mg tablet Take 1 tablet by mouth once daily Reorder 04/12/2020 05/26/2020 metoprolol XL (TOPROL-XL) 25 mg 24 hr tablet TAKE 1 TABLET BY MOUTH ONCE DAILY Reorder 06/23/2019 05/26/2020 documented as of this encounter Care Teams Arabic Linguist Relationship Specialty Start Date End Date Noemi Willis NP PCP - General 06/19/18 06/24/23 Kali Reddy MD Consulting Physician Cardiology 05/19/19 documented as of this encounter
--- OUTSIDE RECORDS SUMMARY | 2024-09-29 22:10 | XMS_ITS | Encounter Summary ---
Author Organization [facility] Address [address] [facility] [address] [place] [address] Care Team Providers Care Developmental Psychologist Name Role Phone Noemi Willis NP Primary Care Provider Kali Reddy MD Unavailable Encounter Details Date Type Department Care Team (Late st Contact Info) Description 05/26/2019 Telephone [facility] Cardiology [address] [facility] [address] [place] [address] Kali Reddy MD [address] 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 LM informing patient. * Telephone Encounter - Kassi Jeffrey MA - 05/26/2019 10:39 AM CDT Pt needs CTA next year 05/26/20 at 9 a if possible. Order not placed when pt left. Needs to be ordered and scheduled. documented in this encounter Plan of Treatment Not on file documented as of this encounter Visit Diagnoses Not on filedocumented in this encounter Care Teams Developmental Psychologist Relationship Specialty Start Date End Date Noemi Willis NP PCP - General 06/19/18 06/24/23 Kali Reddy MD Consulting Physician Cardiology 05/19/19 documented as of this encounter
--- OUTSIDE RECORDS SUMMARY | 2024-09-29 22:10 | XMS_ITS | Encounter Summary ---
Author Organization [facility] Address [address] [facility] [facility] [address] [place] [address] Care Team Providers Care Registered Nurse Surgical Services Name Role Phone Noemi Willis NP Primary Care Provider [phone] Reason for Visit * Reason Onset Date Comments Ct results 06/21/2018 Encounter Details Date Type Department Care Team (Late st Contact Info) Description 06/21/2018 Telephone [facility] Cardiology [address] [facility] [address] [place] [address] Kali Reddy MD [address] [facility] [address] [place] [address] Ct results Social History Tobacco Use Types Packs/Day Years Used Date Smoking Tobacco: Never Smokeless Tobacco: Never Alcohol Use Standard Drinks/Week Comments Yes 0 (1 standard drink = 0.6 oz pur e alcohol) Socially Sex and Gender Information Value Date Recorded Sex Assigned at Not on file 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 * Telephone Encounter - Eleonora Viramontes - 06/21/2018 4:50 PM CDT ----- Message from Kali Reddy MD sent at 06/21/2018 4:37 PM CDT ----- Call the patient to inform that this study looks good. His aorta is stable. documented in this encounter Plan of Treatment Not on file documented as of this encounter Visit Diagnoses Not on filedocumented in this encounter Care Teams Registered Nurse Surgical Services Relationship Specialty Start Date End Date Noemi Willis NP PCP - General 06/19/18 06/24/23 documented as of this encounter
--- OUTSIDE RECORDS SUMMARY | 2024-09-29 22:10 | XMS_ITS | Encounter Summary ---
Author Organization [facility] Facility Care Team Providers Care Bleach Boiler Filler Name Role Phone Noemi Willis NP Primary Care Provider [phone] Kali Reddy MD Unavailable [phone] Encounter Details Date Type Department Care Team (Latest Contact Info) Description 05/26/2019 Travel Social History Tobacco Use Types Packs/Day Years Used Date Smoking Tobacco: Never Smokeless Tobacco: Never Alcohol Use Standard Drinks/Week Comments Yes 0 (1 standard drink = 0.6 oz pur e alcohol) Socially Sex and Gender Information Value Date Recorded Sex Assigned at Not on file 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
--- OUTSIDE RECORDS SUMMARY | 2024-09-29 22:10 | XMS_ITS | Encounter Summary ---
Author Organization [facility] Medical Group Address [address] [place] [address] Care Team Providers Care Core Blower Operator Name Role Phone Emelina Khan MD Primary Care Provider [phone] Reason for Referral * MRI/CAT/PET Scan (Routine) - Closed Specialty Diagnoses / Procedures Referred By Contac t Referred To Contact Radiology Diagnoses Thoracic aortic aneurysm without rupture (HCC) Procedures CTA Chest W WO Contrast Kali Reddy MD Phone: tel: fax: Referral ID Status Reason Start Date Expiration Date Visits Re quested Visits Authorized [id number] Closed 05/01/2017 10/28/2017 1 1 Encounter Details Date Type Department Care Team (Late st Contact Info) Description 04/30/2017 Orders Only [facility] Cardiology [address] [place] [address] Kali Reddy MD [facility] [facility] [address] [place] [address] Thoracic aortic aneurysm without rupture (CMS/HCC) (Primary Dx) Social History Tobacco Use Types Packs/Day Years Used Date Smoking Tobacco: Never Assessed Sex and Gender Information Value Date Recorded Sex Assigned at Not on file 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 Requesting ID: [id number] Attending Fax: ?? Attending ID: ?? [id number] Completed Time: ?? 05/24/2017 09:07 AM Dictated [...] Report To 3 FAX: NextGen Order #: [id number] Procedure Note Miscellaneous, Not In File / Provider, MD Sandra - 05/24/2017 CT angiography chest without and with IV contrast, 05/24/2017 HISTORY: Ascending thoracic aortic aneurysm without rupture, gated study COMPARISON: 11/23/2016 Contrast: 97 mL Optiray 350 Acquisition and 3D reconstructed images were reviewed, provided by the [employer], performed on a separate dedicated workstation. [...] REDDY Requesting: KALI REDDY Requesting Requesting ID: [id number] Attending Attending ID: [id number] Completed Time: 05/24/2017 09:07 AM Dictated Time: N/A Transcribed Time: 05/24/2017 12:06 AM Signed by: JARVIS POOLE on 05/24/2017 12:06 AM Report To 1 ID: Report To 1 Name: , Report To 1 FAX: Report To 2 ID: Report To 2 Name: , Report To 2 FAX: Report To 3 ID: Report To 3 Name: , Report To 3 FAX: NextGen Order #: [id number] Kali Reddy MD IMG CT PROCEDURES Final Re sult documented in this encounter Visit Diagnoses Diagnosis Thoracic aortic aneurysm without rupture (HCC)- Primary Thoracic aortic aneurysm without rupture (HCC) documented in this encounter Care Teams Core Blower Operator Relationship Specialty Start Date End Date Emelina Khan MD [address] [address] PCP - General 11/23/16 06/18/18 documented as of this encounter
--- OUTSIDE RECORDS SUMMARY | 2024-09-29 22:10 | XMS_ITS | Encounter Summary ---
Author Organization [facility] Medical Group Address [address] [place] [address] Care Team Providers Care Orthotic/Prosthetic Practitioner Name Role Phone Emelina Khan MD Primary Care Provider [phone] Reason for Referral * MRI/CAT/PET Scan (Routine) - Closed Specialty Diagnoses / Procedures Referred By Contac t Referred To Contact Radiology Diagnoses Ascending aortic aneurysm (HCC) Procedures CTA Chest W Contrast Kali Reddy MD Phone: tel: fax: Referral ID Status Reason Start Date Expiration Date Visits Re quested Visits Authorized [id number] Closed 05/24/2017 11/20/2017 1 1 Reason for Visit * Reason Comments Hyperlipidemia Hypertension Encounter Details Date Type Department Care Team (Latest Contact Info) Description 05/24/2017 10:15 AM CDT Office Visit [facility] [place] [address] [place] [address] Kali Reddy MD [address] [place] [address] [address] [place] [address] Ascending aortic aneurysm (CMS/HCC) (Primary Dx); Pure hypercholesterolemia Social History Tobacco Use Types Packs/Day Years Used Date Smoking Tobacco: Never Smokeless Tobacco: Never Alcohol Use Standard Drinks/Week Comments Yes 0 (1 standard drink = 0.6 oz pur e alcohol) Socially Sex and Gender Information Value Date Recorded Sex Assigned at Not on file 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 Gender Identity Not on file Sexual Orientation Not on file documented as of this encounter Last Filed Vital Signs Vital Sign Reading Time Taken Comments Blood Pressure 112/60 05/24/2017 10:12 AM CDT Pulse 66 05/24/2017 10:12 AM CDT Temperature - - Respiratory Rate - - Oxygen Saturation - - Inhaled Oxygen Concentration - - Weight 108 kg (238 lb) 05/24/2017 10:12 AM CDT Height 182.9 cm (6') 05/24/2017 10:12 AM CDT Body Mass Index 32.28 05/24/2017 10:12 AM CDT documented in this encounter Progress Notes * Kali Reddy MD - 05/24/2017 10:15 AM CDT [facility] [place] Cardiology [address] [address] Cardiology MD Kali Mckeon MD Robert Kopitsky, MD Wellington Farrell, MD Ian Sahni, MD Osmin Odom MD Linda Stronach, MD K. Bryan Trimmer, DO Cassie Mario, ALEX Smith, ALEX Patient Name: Omar Adam Provider: Kali Reddy MD : 1945 Date of Service: 05/24/2017 Referring: Erin CHIEF COMPLAINT: Hyperlipidemia and Hypertension [...] ILLNESS: Omar Adam is a very pleasant 71 y.o. male with a history which includes thoracic aortic aneurysm who returns to clinic for follow-up. When I saw him last his chest CT revealed no significant change in his aortic dimension. He has chest CT from today pending. He continues to be asymptomatic. Nochest pain or pressure. No back pain. No shortness of breath. He has a trileaflet aortic valve and no risk factors. ALLERGY Review of patient's allergies indicates no known allergies. MEDICATIONS Outpatient Encounter Prescriptions as of 05/24/2017 Medication Sig Dispense Refill ??? aspirin 81 mg tablet TAKE ONE TABLET BY MOUTH ONCE DAILY 90 tablet 0 ??? atorvastatin (LIPITOR) 20 mg tablet take 1 tablet by oral route every day 90 4 ??? losartan (COZAAR) 25 mg tablet TAKE ONE TABLET BY MOUTH ONCE DAILY 90 tablet 3 ??? metoprolol XL (TOPROL-XL) 25 mg 24 hr tablet take 1 tablet by oral route every day 90 4 No facility-administered encounter medications on file as of 05/24/2017. PAST MEDICAL HISTORY Past Medical History: Diagnosis [...] reviewed and are negative. PHYSICAL EXAM: BP 112/60 (BP Location: Left arm, Patient Position: Sitting) Pulse 66 Ht 182.9 cm (6') Wt 108kg (238 lb) BMI 32.28 kg/m?? General: No apparent distress. Eyes: Sclerae anicteric. Neck: JVP is 8-10. Chest: No deformity. Respiratory: Clear to auscultation bilaterally with good air movement. Cardiac: Regular rate and rhythm. No murmurs, gallops, rubs. Vascular: 2+ pulses throughout. Abdomen: Soft, nontender, nondistended. Extremities: Trace lower extremity edema. Musculoskeletal: Grossly normal strength throughout. Neurologic: Nonfocal. No dysarthria. Skin: No rashes Psychiatric: Appropriate affect and interaction. ASSESSMENT & PLAN: Ascending aortic aneurysm (CMS/HCC) Will return to clinic in one year and get repeat chest CT aortogram. Continue his vascular preventative regimen. Surgical cut point will be 5.5 cm. Pure hypercholesterolemia Continue statin. Kali Reddy MD [...] 05/26/2019. Electronically signed by: Lew Sterling M.D. Kali Reddy MD IMG CT PROCEDURES Final Re sult documented in this encounter Visit Diagnoses Diagnosis Ascending aortic aneurysm (HCC)- Primary Thoracic aneurysm without mention of rupture Pure hypercholesterolemia Ascending aortic aneurysm (HCC) Thoracic aneurysm without mention of rupture documented in this encounter Care Teams Orthotic/Prosthetic Practitioner Relationship Specialty Start Date End Date Emelina Khan MD [address] [address] PCP - General 11/23/16 06/18/18 documented as of this encounter
--- OUTSIDE RECORDS SUMMARY | 2024-09-29 22:10 | XMS_ITS | Encounter Summary ---
Author Organization [facility] Healthcare Address [address] [place] [address] Care Team Providers Care Legal Mediator Name Role Phone Noemi Willis NP Primary Care Provider [phone] Kali Reddy MD Unavailable [phone] Keaton Lynn MD Unavailable [phone] Encounter Details Date Type Department Care Team (Latest Contact Info) Description 06/21/2023 3:55 PM CDT - 06/21/2023 11:59 PM CDT Hospital Encounter [facility] [place] [address] Discharge Disposition: Discharge to home or self care Social History Tobacco Use Types Packs/Day Years Used Date Smoking Tobacco: Never Smokeless Tobacco: Never Alcohol Use Standard Drinks/Week Comments Yes 0 (1 standard drink = 0.6 oz pur e alcohol) Socially Sex and Gender Information Value Date Recorded Sex Assigned at Not on file 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
--- OUTSIDE RECORDS SUMMARY | 2024-09-29 22:10 | XMS_ITS | Encounter Summary ---
Author Organization [facility] Healthcare Address [address] [place] [address] Care Team Providers Care Fan Mail Editor Name Role Phone Noemi Willis NP Primary Care Provider [phone] Kali Reddy MD Unavailable [phone] Reason for Referral * MRI/CAT/PET Scan (Routine) - Closed Specialty Diagnoses / Procedures Referred By Contac t Referred To Contact Radiology Diagnoses Ascending aortic aneurysm (HCC) Procedures CTA Chest W Contrast Kali Reddy MD Phone: tel: fax: [facility] [address] [place] [address] Referral ID Status Reason Start Date Expiration Date Visits Re quested Visits Authorized [id number] Closed 06/08/2022 07/08/2023 1 1 Reason for Visit * MRI/CAT/PET Scan (Routine) - Closed Specialty Diagnoses / Procedures Referred By Contac t Referred To Contact Radiology Diagnoses Ascending aortic aneurysm (HCC) Procedures CTA Chest W Contrast Kali Reddy MD Phone: tel: fax: [facility] [address] [place] [address] Referral ID Status Reason Start Date Expiration Date Visits Re quested Visits Authorized [id number] Closed 06/08/2022 07/08/2023 1 1 Encounter Details Date Type Department Care Team (Latest Contact Info) Description 06/06/2023 8:39 AM CDT - 06/06/2023 11:59 PM CDT Hospital Encounter [facility] - Imaging [address] [place] [address] Ascending aortic aneurysm (HCC) Discharge Disposition: Discharge to home or self care Social History Tobacco Use Types Packs/Day Years Used Date Smoking Tobacco: Never Smokeless Tobacco: Never Alcohol Use Standard Drinks/Week Comments Yes 0 (1 standard drink = 0.6 oz pur e alcohol) Socially Sex and Gender Information Value Date Recorded Sex Assigned at Not on file 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 Gender Identity Not on file Sexual Orientation [...] CONTRAST Schedule Routine, Read Routine (OP Routine) 06/06/2023 10:04 AM CDT Ascending aortic aneurysm (HCC) POCT CREATININE FOR CONTRAST EVALUATION Routine 06/06/2023 9:21 AM CDT documented in this encounter Results [...] CT PROCEDURES Edited R esult - Final * POCT creatinine for contrast evaluation (06/06/2023 9:21 AM CDT) Creatinine, POC 1.3 0.6 - 1.5 mg/dL Blood 06/06/2023 9:21 AM CDT Kali Reddy MD POINT OF CARE TEST ORDERAB LES Final Result documented in this encounter Visit Diagnoses Diagnosis Ascending aortic aneurysm (HCC) Thoracic aneurysm without mention of rupture documented in this encounter Administered Medications Inactive Administered Medications - up to 3 most recent administrations Medication Order MAR Action Action Date Dose Rate Site ioversoL (OPTIRAY 320) intravenous syringe 100 mL 100 mL, intravenous, Once in imaging, contrast, Starting on Sun06/06/23 at 0940, For 1 dose Contrast Given 06/06/2023 9:56 AM CDT 93 mL documented in this encounter Orders Medications Ordered That Jorge ht Not Have Been Administered Count Last Ordered Date First Ordered Date ioversoL (OPTIRAY 320) intra venous syringe 100 mL 1 06/06/2023 documented in this encounter Care Teams Fan Mail Editor Relationship Specialty Start Date End Date Noemi Willis NP PCP - General 06/19/18 06/24/23 Kali Reddy MD Consulting Physician Cardiology 05/19/19 documented as of this encounter
--- OUTSIDE RECORDS SUMMARY | 2024-09-29 22:10 | XMS_ITS | Encounter Summary ---
Author Organization [facility] Healthcare Address [address] [place] [address] Care Team Providers Care Advanced Nursing Professor Name Role Phone Noemi Willis NP Primary Care Provider [phone] Kali Reddy MD Unavailable [phone] Reason for Referral * Hospital - Outpatient (Routine) - Closed Specialty Diagnoses / Procedures Referred By Contac t Referred To Contact Radiology Diagnoses Ascending aortic aneurysm (HCC) Procedures CTA Chest W Contrast Kali Reddy MD Phone: tel: fax: [facility] [address] [place] [address] Referral ID Status Reason Start Date Expiration Date Visits Re quested Visits Authorized [id number] Closed 05/21/2018 11/30/2019 1 1 Reason for Visit * Hospital - Outpatient (Routine) - Closed Specialty Diagnoses / Procedures Referred By Contac t Referred To Contact Radiology Diagnoses Ascending aortic aneurysm (HCC) Procedures CTA Chest W Contrast Kali Reddy MD Phone: tel: fax: [facility] [address] [place] [address] Referral ID Status Reason Start Date Expiration Date Visits Re quested Visits Authorized [id number] Closed 05/21/2018 11/30/2019 1 1 Encounter Details Date Type Department Care Team (Latest Contact Info) Description 05/26/2019 8:34 AM CDT - 05/26/2019 11:59 PM CDT Hospital Encounter [facility] - Imaging [address] [place] [address] Kali Reddy MD [address] [place] [address] Ascending aortic aneurysm (CMS/HCC) Discharge Disposition: Discharge to home or self care Social History Tobacco Use Types Packs/Day Years Used Date Smoking Tobacco: Never Smokeless Tobacco: Never Alcohol Use Standard Drinks/Week Comments Yes 0 (1 standard drink = 0.6 oz pur e alcohol) Socially Sex and Gender Information Value Date Recorded Sex Assigned at Not on file 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 Gender Identity Not on file Sexual Orientation Not on file documented as of this encounter Medications at Time of Discharge aspirin 81 mg tablet TAKE 1 TABLET BY MOUTH ONCE DAILY 90 tablet 3 08/07/2018 08/30/2019 atorvastatin (LIPITOR) 40 mg tablet Take 1 tablet (40 mg total) by mouth daily 90 tablet 3 05/26/2019 07/05/2020 losartan (COZAAR) 25 mg tablet Take 1 [...] CONTRAST Schedule Routine, Read Routine (OP Routine) 05/26/2019 9:22 AM CDT Ascending aortic aneurysm (CMS/HCC) POCT CREATININE FOR CONTRAST EVALUATION Routine 05/26/2019 8:50 AM CDT documented in this encounter Results [...] stable. Electronically signed by: Lew Sterling M.D. us Kali Reddy MD IMG CT PROCEDURES Final Re sult * (ABNORMAL) POCT creatinine for contrast evaluation (05/26/2019 8:50 AM CDT) Creatinine, POC 1.4(A) 0.6 - 1.3 mg/dL Blood specimen (specimen) 05/26/2019 8:50 AM CDT us Kali Reddy MD POINT [...] intravenous, Once in imaging, contrast, Starting on Sun05/26/19 at 0905, For 1 dose Given 05/26/2019 9:23 AM CDT 95 mL sodium chloride 0.9% flush 125 mL 125 mL, intravenous, Once in imaging, line care, Starting on Sun05/26/19 at 0905, For 1 dose Given 05/26/2019 9:23 AM CDT 80 mL documented in this encounter Care Teams Advanced Nursing Professor Relationship Specialty Start Date End Date Noemi Willis NP PCP - General 06/19/18 06/24/23 Kali Reddy MD Consulting Physician Cardiology 05/19/19 documented as of this encounter
--- OUTSIDE RECORDS SUMMARY | 2024-09-29 22:10 | XMS_ITS | Encounter Summary ---
Author Organization [facility] Healthcare Address [address] [place] [address] Care Team Providers [employer] Name Role Phone Kali Reddy MD Unavailable Keaton Lynn MD Unavailable [phone] Radha Lozada MD Primary Care Provider [phone] Reason for Visit * Auth/Cert (Routine) Specialty Diagnoses / Procedures Referred By Contac t Referred To Contact Diagnoses Aneurysm of ascending aorta without rupture (HCC) Aneurysm of ascending aorta without rupture (HCC) [I71.21] Procedures ME -AORT GRF W/CARD BYP F/AORTIC DS OTH/THN DSJ REPLACEMENT OF ASCENDING AORTA Referral ID Status Reason Start Date Expiration Date Visits Re quested Visits Authorized [id number] 1 1 Encounter Details Date Type Department Care Team (Late st Contact Info) Description 07/10/2023 11:21 AM CDT Anesthesia Event [facility] Operating Room [address] [place] [id number] Herbie Mckinney MD PhD [address] [place] [address] Timbo Ruffin MD [address] [place] [address] Anesthesia Record Procedure Summary Procedure Name Responsible Anesthesiologist Anesthesia Start Time Anesthesia Stop Time Tissue Composite Root Replacement and Hemiarch Replacement (Chest) Herbie Mckinney MD PhD 07/10/23 1121 07/10/23 1625 Events Date Time Event Comment 07/10/2023 1121 In Room 1121 An Start 1121 An Start Data 1122 Perfusion Ready 1122 Start Data 1129 An Induction The patient was reevaluated immediately before moderate or deep sedation use and before anesthesia induction. 1130 An Intubation 1200 Incision Start 1226 Quick Note 2 units of auto logous whole blood collected sterile fashion 1237 CPB ON 1238 Cooling Start Cooling to 26 degrees 1247 Aortic Clamp ON 1303 Regional Perfusion Begin ACP begin, flowing 1 - 1.4L/min including shunts 16 Fr Opti cannula Rt axillary 1318 Regional Perfusion End 1 can nula, 16Fr only 1320 Quick Note 2 cannulas, ful l flow 1338 Rewarming Start 1338 Cooling Stop 1424 Aortic Clamp OFF 1428 Quick Note Axillary cannul a out 1445 CPB OFF 1445 Rewarming Stop 1506 Perfusion Complete 1511 Quick Note 2 units of auto logous blood transfused 1608 an stop data 1611 Out of Room 1625 An Stop 1626 Handoff to RN I completed my handoff [...] the time of handoff: No value filed. 1626 Release from care Meds Name Total midazolam 5 mg fentaNYL 500 mcg succinylcholine 100 mg rocuronium 150 mg heparin 1,000 unit/ml 40,000 Units heparin injection 1,000 unit/mL 15,000 U nits protamine 300 mg norepinephrine 16 mcg norepinephrine infusion 0.8 mg tranexamic acid 2,000 mg phenylephrine (OLIVIA-SYNEPHRINE) injection 10,700 mcg anticoagulant citrate dextrose solution A injection 1,000 mL mannitol 26 mL, lidocaine (c ardiac) (XYLOCAINE) 13 mL, magnesium sulfate 8 mL solution 36 mL potassium chloride 2 mEq/mL (ARREST SOLU TION) 46 mEq Lactated Ringer's (LR) 1,000 mL with albumin 50 mL, heparin 10 mL, mannitol 12.5 g solution 1,000 mL sodium bicarbonate injection 1 mEq/mL 15 0 mEq ceFAZolin (ANCEF) 2,000 mg/20 mL in ster ile water (premix) 2,000 mg 4,000 mg propofol 925.58 mg HYDROmorphone 2 mg/mL 2 mg glycopyrrolate 0.6 mg calcium chloride 2 g phenylephrine 100 mcg/mL 400 mcg electrolyte-A (PLASMA-LYTE) bolus 200 mL NS 0.9% 500 mL sodium chloride 0.9% infusion 100 mL albumin 25 % 50 mL * Agents Name O2 N2O Air Isoflurane Inspired Isoflurane * Blood Name Total PLATELETS - CROSSMATCHED 340 mL FFP - CROSSMATCHED 521 mL Lines, Drains, and Airways Type Details Placement Removal Peripheral IV Placement Date: 07/10/23; Placement Time: 1045; Catheter Size: 18 G; Orientation: Right; Location: Hand; Site Prep: Chlorhexidine; Technique: Anatomical landmarks; Inserted by: Kate STOCKTON; Insertion Attempts: 2; Patient Tolerance: Tolerated well; Removal Date: 07/11/23; Removal Time: 0512 07/10/23 1045 by Dyan Atwood RN 07/11/23 0512 by Brittany Fam RN Urethral Catheter Placement Date: 07/10/23; Placement Time: 1133; Inserted by: DALLAS Weiss; Type: Temperature probe; Balloon Size: 10 mL; Urine Returned: Yes; Removal Date: 07/11/23; Removal Time: 1147; Removal Reason: Per protocol 07/10/23 1133 by Bre Moreau RN 07/11/23 1147 by Rory Wu, MAHIN ETT Placement Date: 07/10/23; Placement Time: 1230 (created via procedure documentation); Mask Ventilation: 1; Technique: Video laryngoscopy; Type: ETT - single; Single Lumen Tube Size: 8 mm; Cuffed: Yes; Location: Oral; Grade View: Grade I; Insertion Attempts: 1; Placement Verification: Auscultation, Capnometry; Removal Date: 07/10/23; Removal Time: 1800 07/10/23 1230 by Herbie Mckinney MD PhD 07/10/23 1800 by Annie Sanchez, TEVIN RETIRED Surgical Site 07/10/23; 1243; Mid-line; Sternum; 09/16/24 (Retired LDA, Removed/Completed by [facility] with LDA Utility); 1213 (Retired LDA, Removed/Completed by [facility] with LDA Utility) 07/10/23 1243 by Korina Montez RN 09/16/24 1213 by Discharge Provider, Automatic Arterial Line Placement Date: 07/10/23; Placemnt Time: 1244 (created via procedure documentation); Size: 20 G; Orientation: Left; Location: Radial; Securement: Taped, Transparent dressing; Removal Date: 07/11/23; Removal Time: 0908; Removal Reason: Per order 07/10/23 1244 by Herbie Mckinney MD PhD 07/11/23 0908 by Rory Wu RN Arterial Line Placement Date: 07/10/23; Placemnt Time: 1245 (created via procedure documentation); Size: 20 G; Orientation: Right; Location: Radial; Securement: Taped, Transparent dressing; Removal Date: 07/11/23; Removal Time: 1430; Removal Reason: Per order 07/10/23 1245 by Herbie Mckinney MD PhD 07/11/23 1430 by Rory Wu RN CVC Quadruple Lumen Placement Date: 07/10/23; Placement Time: 1245 (created via procedure documentation); Hand Hygiene: Yes; Size: 8.5 Fr; Orientation: Right; Location: Internal jugular; Removal Date: 07/14/23; Removal Time: 1359; Removal Reason: Discharge 07/10/23 1245 by Herbie Mckinney MD PhD 07/14/23 1359 by Nano Arango RN Introducer Placement Date: 07/10/23; Placement Time: 1246 (created via procedure documentation); Existing LDA Placed by: Yes; Size: introducer sheath; Insertion Attempts: 07/11/23; Securement: 51207/10/23 1246 by Herbie Mckinney MD PhD 07/11/23 05 by Brittany Fam RN PA Catheter Placement Date: 07/10/23; Placement Time: 1246 (created via procedure documentation); Site Prep: Chlorhexidine; Removal Date: 07/10/23; Removal Time: 199907/10/23 1246 by Herbie Mckinney MD PhD 07/10/231999 by Brittany Fam, RN Chest Tube Placement Date: 07/10/23; Placement Time: 151; Inserted by: Dr. Lynn; Location: Mediastinal; Size: 24 Fr; Drainage System: [place]/nonsuction water seal drainage, Suction; Sutures Placed: 1; Removal Date: 07/13/23 (removed by PA); Removal Time: 1130 07/10/23 1512 by Bre Moreau RN 07/13/23 1130 by Nano Arango RN Pacer Wires 07/10/23; 1521; Dr. 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 Gender Identity Not on file Sexual Orientation Not on file documented as of this encounter OR Notes * Anesthesia Postprocedure Evaluation - Herbie Mckinney MD PhD - 07/10/2023 4:26 PM CDT Patient: Omar Adam Procedure Summary Date: 07/10/23 Room / Location: [facility] OPERATING ROOM 02 / [facility] OPERATING ROOM Anesthesia Start: 1121 Anesthesia Stop: 1625 Procedure: Tissue Composite Root Replacement and Hemiarch Replacement (Chest) Diagnosis: Aneurysm of ascending aorta without rupture (HCC) (Aneurysm of ascending aorta without rupture (HCC) [I71.21]) Surgeons: Keaton Lynn MD Responsible Provider: Herbie Mckinney MD PhD Anesthesia Type: general ASA Status: 4 Anesthesia Type: general Last vitals BP 139/81 Pulse 73 Temp 36.9 ??C (98.4 ??F) (Oral) Resp 14 SpO2 100% Anesthesia Post Evaluation Patient location during evaluation: ICU Patient participation: complete - patient cannot participate Level of consciousness: unconscious Pain score: unable to evaluate Pain management: adequate Airway patency: adequate Evidence of recall: unable to evaluate Cardiovascular status: acceptable and hemodynamically stable Respiratory status: acceptable, ETT and ventilator Hydration status: acceptable Pt is: normothermic Nausea/Vomiting status: unable to evaluate There were no known notable events for this encounter. * Anesthesia Procedure Notes - Herbie Mckinney MD PhD - 07/10/2023 12:46 PM CDTAssociated Order(s): KELLEY KELLEY Date/time: 07/10/2023 3:12 PM Staff: Performed by: Anesthesiologist: Herbie Mckinney MD PhD Preprocedure checklist: patient identified, procedure contraindications assessed, procedure consent, risks, benefits and alternatives discussed, monitors and equipment checked, timeout performed and KELLEY probe inserted into esophagus using lubricating jelly General procedure Information: Reason for procedure/indications: assessment of surgical repair Performed: personally Procedure performed at surgeon's request: yes Results discussed with surgeon: yes Images submitted to archive: yes Patient location: OR Intubated: yes Bite blocked placed: yes Probe Insertion: easy Complications: no Probe type: adult Modalities: 2D imaging, 3D imaging, continuous wave Doppler, pulsed wave Doppler and color Doppler Billing information: Physician requesting echo: Keaton Lynn MD CPT code: KELLEY placement and diagnostic exam, non-congenital (64746) ICD code(s) for medical necessity: I35.1 - Nonrheumatic aortic (valve) insufficiency, I71.2 - Thoracic aortic aneurysm, without rupture Echocardiographic and doppler measurements: Ventricles: Left ventricle: Cavity size: normal Hypertrophy: Yes Thrombus: No Global function: normal LVEF%: 50-60 Right ventricle: Cavity size: normal Hypertrophy: no Thrombus: No Global function: normal Interventricular septum: normal Regional function: 1- Basal anteroseptal: normal 2- Basal anterior: normal 3- Basal anterolateral: normal 4- Basal inferolateral: normal 5- Basal inferior: normal 6- Basal inferoseptal: normal 7- Mid anteroseptal: normal 8- Mid anterior: normal 9- Mid anterolateral: normal 10- Mid inferolateral: normal 11- Mid inferior: normal 12- Mid inferoseptal: normal 13- Apical anterior: normal 14- Apical lateral: normal 15- Apical inferior: normal 16- Apical septal: normal 17- [place]: normal Valves: Aortic Valve: Annulus: normal Leaflet morphology: normal Leaflet motion: normal Stenosis: none Regurgitation: severe Mitral valve: Annulus: normal Leaflet morphology anterior: normal Leaflet morphology posterior: normal Leaflet motion anterior: normal Leaflet motion posterior: normal Stenosis: none Regurgitation: mild Tricuspid valve: Annulus: normal Leaflet morphology: normal Leaflet motion: normal Stenosis: none Regurgitation: mild Aorta: Ascending aorta: Size: dilated Diameter: 5.1 cm Dissection: no Plaque thickness(mm): 0-3 Plaque mobile: no Aortic arch: Size: normal Dissection: no Plaque thickness(mm): 0-3 Plaque mobile: no Descending aorta: Size: normal Dissection: no Plaque thickness(mm): 0-3 Plaque mobile: no Atria: Right atrium: Size: normal Spontaneous echo contrast: No Thrombus: no Mass: No Left atrium: Size: normal (normal) Spontaneous echo contrast: No Thrombus: no Mass: No Left atrial appendage: normal Interatrial septum: normal Diastolic function and other findings: Left pleural effusion: none Right pleural effusion: normal Pulmonary venous flow: normal Pre-procedure KELLEY exam summary: Severe aortic insufficiency. Annulus 28mm. Aortic root 4.5cm, surgeon aware. Ascending aorta 5.1cm.Normal LV, RV function, mild MR, TR Postprocedure (follow-up) KELLEY exam: LV: unchanged RV: unchanged Interventricular septum: unchanged Aortic valve: bioprosthetic Mitral valve: unchanged Pulmonic valve: unchanged Tricuspid valve: unchanged Atria: unchanged Aorta: unchanged Pericardium: unchanged Left pleural: unchanged Right pleural: unchanged Postprocedure (follow-up) KELLEY exam comments: Bioprosthetic aortic valve in place. Opens well, no regurgitation. Root, ascending aortic graft in place. Hyperdynamic LV, normal RV function. Otherwise unchanged Attestation Statement: By signing this report the attending anesthesiologist certifies that he or she has personally reviewed and interpreted the echocardiogram and has reviewed and or edited and agrees with the written comments contained within the report. * Anesthesia Procedure Notes - Herbie Mckinney MD PhD - 07/10/2023 12:45 PM CDTAssociated Order(s): Central Venous Line Central Venous Line Patient location: OR End Time: 07/10/2023 11:44 AM Indication: central venous access and CVP monitoring Staff: Supervising provider: Herbie Mckinney MD PhD Placed by: KEYCASE ASSEMBLER: Tereso Chavez CRNA Procedure prep: Patient position: Trendelenburg. PPE: provider hand hygiene, provider hat/mask, sterile gloves, sterile gown and full body drape. Prep solution: chlorhexadine/alcohol was applied to area. Ultrasound Evaluation: Ultrasound was prepped into field. Central line: Laterality: right Site: internal jugular Catheter type: introducer sheath Catheter size: 9 Fr. Catheter length: 10 cm Technique: anatomy identified with surface landmarks, vein located with finder needle, Seldinger technique, wire threaded easily and wire removed intact Venous verification: manometry Post insertion: all ports aspirated, all ports flushed easily, line sutured in place and occlusive dressing applied Number of attempts: 1 PA catheter placement: PA catheter type: non-oximetric PA catheter size: 7.5 Fr PA catheter laterality: right PA catheter site: internal jugular Placement guided by: pressure tracing changes PA catheter depth 49 cmNo Assessment: Events: patient tolerated procedure well with no complications * Anesthesia Procedure Notes - Herbie Mckinney MD PhD - 07/10/2023 12:45 PM CDTAssociated Order(s): Central Venous Line Central Venous Line Patient location: OR Indication: central venous access and CVP monitoring Staff: Supervising provider: Herbie Mckinney MD PhD Placed by: KEYCASE ASSEMBLER: Tereso Chavez CRNA Procedure prep: Patient position: Trendelenburg. PPE: provider hand hygiene, provider hat/mask, sterile gloves, sterile gown and full body drape. Prep solution: chlorhexadine/alcohol was applied to area. Ultrasound Evaluation: Ultrasound was prepped into field. Central line: Laterality: right Site: internal jugular Catheter type: quad lumen Catheter size: 8.5 Fr. Catheter length: 16 cm Technique: wire threaded easily, anatomy identified with surface landmarks, vein located with finder needle, Seldinger technique and wire removed intact Venous verification: manometry Post insertion: all ports aspirated, all ports flushed easily, line sutured in place and occlusive dressing applied Number of attempts: 1 Assessment: Events: patient tolerated procedure well with no complications * Anesthesia Procedure Notes - Herbie Mckinney MD PhD - 07/10/2023 12:44 PM CDTAssociated Order(s): Arterial Line Arterial Line Patient location: OR End time: 07/10/2023 11:44 AM Indication: continuous blood pressure monitoring and blood sampling needed Staff: Placed by: Anesthesiologist: Herbie Mckinney MD PhD Procedure prep: Prep solution: chlorhexadine/alcohol Prep: provider hat/mask Arterial line: Catheter size: 20 gauge Catheter length: 1 and 3/4 inch Catheter type: wire-guided catheter Seldinger technique: yes Laterality: right Site: radial artery Line secured: tape and Tegaderm Results: good waveform and good blood return Number of attempts: 1 Assessment: Events: patient tolerated procedure well with no complications * Anesthesia Procedure Notes - Herbie Mckinney MD PhD - 07/10/2023 12:44 PM CDTAssociated Order(s): Arterial Line Arterial Line Patient location: OR End time: 07/10/2023 11:34 AM Indication: continuous blood pressure monitoring and blood sampling needed Staff: Placed by: Anesthesiologist: Herbie Mckinney MD PhD Procedure prep: Prep solution: chlorhexadine/alcohol Prep: provider hat/mask Arterial line: Catheter size: 20 gauge Catheter length: 1 and 3/4 inch Catheter type: wire-guided catheter Seldinger technique: yes Laterality: left Site: radial artery Line secured: tape and Tegaderm Results: good waveform and good blood return Number of attempts: 1 Assessment: Events: patient tolerated procedure well with no complications * Anesthesia Procedure Notes - Herbie Mckinney MD PhD - 07/10/2023 12:30 PM CDTAssociated Order(s): Airway Airway Patient location: OR Urgency: elective Indications for airway management: anesthesia Difficult airway: no Staff: Placed by: Anesthesiologist: Herbie Mckinney MD PhD Emergent airway documentation: Risks and benefits discussed: yes Consent obtained: yes Consent given by: patient Airway prep: Preoxygenated: yes Patient position: sniffing Mask difficulty assessment: 1 - vent by mask Final airway details: Final airway type: endotracheal airway Tube type: ETT ETT size: 8.0 mm Cuffed: yes Technique used for successful ETT placement: video laryngoscopy Insertion site: oral Video blade type: Seymour Cormack-Lehane (direct): grade I - full view of glottis Cuff inflated with: air ETT to lips: 23 cm Placement verified by: auscultation and CO2 detection Airway secured with: silk tape Number of attempts: 1 * Anesthesia Preprocedure Evaluation - Herbie Mckinney MD PhD - 07/10/2023 10:52 AM CDT Images from the original note were not included. Anesthesia Evaluation Omar Adam is a 77 y.o. male Procedure(s): REPLACEMENT OF ASCENDING AORTA Pre-Op Diagnosis Codes: * Aneurysm of ascending aorta without rupture (HCC) [I71.21] HISTORY Past Medical History Neurological Neuro/Psych system: negative Cardiovascular + Hypertension + PAD/Aorta disease - Respiratory + Sleep apnea (MONIKA) Gastrointestinal GI system: negative Renal / Renal/ system: negative Musculoskeletal/Pain + Osteoarthritis Endocrine / Other Endocrine/Other system: negative Functional Capacity Functional capacity: <4 METs Patient Active Problem List Diagnosis Ascending aortic [...] Aneurysm of ascending aorta without rupture (HCC) Past Medical History: Diagnosis Date Arthritis Arthritis; Comments: [facility] 10/19/2015 - HX OTHER MEDICAL ascending aortic aneurysm; Comments: [facility] 10/19/2015 - Hypertension Hypertension Sleep apnea Sleep apnea History reviewed. No pertinent surgical history. No Known Allergies Med List Status: Nurse Complete Set By: Dyan Atwood RN at 07/10/2023 10:42 AM Taking? Last Dose Start Date End Date Provider acetaminophen (TylenoL) 325 mg tablet Past Week -- -- ProviderSandra MD atorvastatin (LIPITOR) 40 mg tablet Past Week 05/16/23 -- Kali Reddy MD Take 1 tablet by mouth once daily losartan (COZAAR) 100 mg tablet Past Week 10/02/22 -- Kali Reddy MD Take 1 tablet by mouth once daily NIFEdipine (NIFEdipine CC) 30 mg 24 hr tablet Past Week 06/06/23 06/05/24 Kali Reddy MD Take 1 tablet (30 mg total) by mouth daily Current Facility-Administered Medications: Carrier Fluids for Secondary Infusion - 0.9% Sodium Chloride, 30 mL, intravenous, PRN ceFAZolin (ANCEF) 2,000 mg/20 mL in sterile water (premix) 2,000 mg, 2,000 mg, intravenous, Once sodium chloride 0.9% flush 0.5-20 mL, 0.5-20 mL, intra-catheter, PRN sodium chloride 0.9% flush 0.5-20 mL, 0.5-20 mL, intra-catheter, Q8H GINNA sodium chloride 0.9% infusion, 30 mL/hr, intravenous, Continuous sodium chloride 0.9% infusion, 10 mL/hr, intravenous, Continuous PRN vancomycin 1500 mg/250 mL in sodium chloride 0.9% (premix) 1,500 mg, 1,500 mg, intravenous, Once Social History Tobacco Use Smoking Status Never [...] Family history of Coronary artery disease; Vitals: 07/10/23 1002 BP: 139/81 Pulse: 64 Resp: 22 Temp: 36.9 ??C (98.4 ??F) SpO2: 96% PT: 07/10/2023: 11.7 sec INR: 07/10/2023: 1.03 APTT: 07/10/2023: 33 sec Hgb A1C: 07/10/2023: 5.2 % CBC RBC: 06/21/2023: 4.24 M/cumm (L) RDW: No results found for requested labs within last 30 days. MCHC: 06/21/2023: 34.5 g/dL MCH: 06/21/2023: 32.8 pg MCV: 06/21/2023: 95.0 fL Hct: 06/21/2023: 40.3 % Hgb: 06/21/2023: 13.9 g/dL WBC: 06/21/2023: 6.4 K/cumm MPV: 06/21/2023: 9.4 fL Platelets: 06/21/2023: 188 K/cumm RDW CV: 06/21/2023: 12.8 % RDW Sd: 06/21/2023: 44.1 fL BMP Glucose: 06/21/2023: 98 mg/dL Calcium: 06/21/2023: 9.5 mg/dL Sodium: 06/21/2023: 140 mmol/L Potassium: 06/21/2023: 4.1 mmol/L CO2: 06/21/2023: 24 mmol/L Chloride: 06/21/2023: 105 mmol/L BUN: 06/21/2023: 14 mg/dL Creatinine: 06/21/2023: 0.88 mg/dL DOS Physical Exam Medical history, medications, and allergies reviewed. Attestation: This PAT evaluation 07/10/2023. Airway Exam: Mallampati: III Cervical ROM: FROM Cardiovascular Exam: Rate: regular Rhythm: regular Pulmonary Exam: LCTA, bilat Anesthesia Plan ASA 4 Planned anesthesia: General Team communication plan: oral ET tube Invasive Monitors Planned: Invasive monitors planned: arterial line, central venous catheter, KELLEY and pulmonary artery catheter. Informed Consent: Anesthesia plan and risks discussed [...] All questions answered. documented in this encounter Miscellaneous Notes * Post-Perfusion - Bre Mcallister CCP - 07/10/2023 3:03 PM CDT Medications midazolam (mg) Date/Time Rate/Dose/Volume Action Admin User Audit 07/10/23 1119 3 mg Given Herbie Mckinney MD PhD 1129 2 mg Given Herbie Mckinney MD PhD fentaNYL (mcg) Date/Time Rate/Dose/Volume Action Admin User Audit 07/10/23 1133 200 mcg Given Herbie Mckinney MD PhD 1142 200 mcg Given Herbie Mckinney MD PhD 1202 100 mcg Given Herbie Mckinney MD PhD succinylcholine (mg) Date/Time Rate/Dose/Volume Action Admin User Audit 07/10/23 1129 100 mg Given Herbie Mckinney MD PhD rocuronium (mg) Date/Time Rate/Dose/Volume Action Admin User Audit 07/10/23 1138 100 mg Given Herbie Mckinney MD PhD 1204 50 mg Given Herbie Mckinney MD PhD heparin 1,000 unit/ml (Units) Date/Time Rate/Dose/Volume Action Admin User Audit 07/10/23 1228 40,000 Units New Bag Herbie Mckinney MD PhD heparin injection 1,000 unit/mL (Units) Date/Time Rate/Dose/Volume Action Admin User Audit 07/10/23 1345 10,000 Units New Bag Esvin Bre, CCP 1347 5,000 Units Bolus Mcallister, Bre, CCP protamine (mg) Date/Time Rate/Dose/Volume Action Admin User Audit 07/10/23 1451 250 mg Given Herbie Mckinney MD PhD 1454 50 mg Given Herbie Mckinney MD PhD norepinephrine infusion (mcg/kg/min) Dosing weight: 111.2 Date/Time Rate/Dose/Volume Action Admin User Audit 07/10/23 1211 0.05 mcg/kg/min - 10.425 mL/hr New Bag Herbie Mckinney MD PhD 1222 0.02 mcg/kg/min - 4.17 mL/hr Rate Change Herbie Mckinney MD PhD tranexamic acid (mg) Date/Time Rate/Dose/Volume Action Admin User Audit 07/10/23 1235 2,000 mg (over 20 min) Given Herbie Mckinney MD PhD phenylephrine (OLIVIA-SYNEPHRINE) injection (mcg) Date/Time Rate/Dose/Volume Action Admin User Audit 07/10/23 1238 300 mcg Given Mcallister Bre, CCP 1239 300 mcg Given Mcallister Bre, CCP 1243 300 mcg Given Mcallister, Bre, CCP 1247 300 mcg Given Mcallister, Bre, CCP 1251 300 mcg Given Mcallister, Bre, CCP 1252 300 mcg Given Mcallister, Bre, CCP 1254 300 mcg Given Mcallister, Bre, CCP 1258 300 mcg Given Mcallister, Bre, CCP 1259 200 mcg Given Mcallister, Bre, CCP 1303 200 mcg Given Mcallister, Bre, CCP 1317 300 mcg Given Mcallister, Bre, CCP 1327 200 mcg Given Mcallister, Bre, CCP 1329 200 mcg Given Mcallister, Bre, CCP 1330 200 mcg Given Mcallister, Bre, CCP 1332 300 mcg Given Mcallister, Bre, CCP 1334 300 mcg Given Mcallister, Bre, CCP 1335 300 mcg Given Mcallister, Bre, CCP 1338 300 mcg Given Mcallister, Bre, CCP 1342 300 mcg Given Mcallister, Bre, CCP 1345 300 mcg Given Mcallister, Bre, CCP 1354 200 mcg Given Mcallister, Bre, CCP 1359 300 mcg Given Mcallister, Bre, CCP 1403 200 mcg Given Mcallister, Bre, CCP 1407 200 mcg Given Mcallister, Bre, CCP 1408 200 mcg Given Mcallister, Bre, CCP 1411 200 mcg Given Mcallister, Bre, CCP 1413 200 mcg Given Mcallister, Bre, CCP 1415 200 mcg Given Mcallister, Bre, CCP 1417 200 mcg Given Mcallister, Bre, CCP 1419 200 mcg Given Mcallister, Bre, CCP 1421 200 mcg Given Mcallister, Bre, CCP 1424 500 mcg Given Mcallister, Bre, CCP 1425 200 mcg Given Mcallister, Bre, CCP 1429 200 mcg Given Mcallister, Bre, CCP 1430 300 mcg Given Mcallister, Bre, CCP 1434 300 mcg Given Mcallister, Bre, CCP 1435 200 mcg Given Mcallister, Bre, CCP 1437 300 mcg Given Mcallister, Bre, CCP 1439 300 mcg Given Mcallister, Bre, CCP 1441 300 mcg Given Mcallister, Bre, CCP 1442 300 mcg Given Mcallister, Bre, CCP anticoagulant citrate dextrose solution A injection (mL) Date/Time Rate/Dose/Volume Action Admin User Audit 07/10/23 1122 1,000 mL Given Mcallister, Bre, CCP mannitol 26 mL, lidocaine (cardiac) (XYLOCAINE) 13 mL, magnesium sulfate 8 mL solution (mL) Date/Time Rate/Dose/Volume Action Admin User Audit 07/10/23 1452 36 mL - 36 mL New Bag Mcallister, Bre, CCP potassium chloride 2 mEq/mL (ARREST SOLUTION) (mEq) Date/Time Rate/Dose/Volume Action Admin User Audit 07/10/23 1329 2 mEq Given Mcallister, Bre, CCP 1331 2 mEq Given Mcallister, Bre, CCP 1332 2 mEq Given Mcallister, Bre, CCP 1333 2 mEq Given Mcallister, Bre, CCP 1452 38 mEq Given Mcallister, Bre, CCP Lactated Ringer's (LR) 1,000 mL with albumin 50 mL, heparin 10 mL, mannitol 12.5 g solution (mL) Date/Time Rate/Dose/Volume Action Admin User Audit 07/10/23 1122 1,000 mL New Bag Mcallister, Bre, CCP sodium bicarbonate injection 1 mEq/mL (mEq) Date/Time Rate/Dose/Volume Action Admin User Audit 07/10/23 1122 50 mEq - 50 mL Given Mcallister, Bre, CCP Comment: prime 1315 25 mEq Given Mcallister, Bre, CCP 1327 25 mEq Given Mcallister, Bre, CCP 1346 25 mEq Given Mcallister, Bre, CCP 1403 15 mEq Given Mclalister, Bre, CCP 1432 10 mEq Given Mcallister, Bre, CCP ceFAZolin (ANCEF) 2,000 mg/20 mL in sterile water (premix) 2,000 mg (mg) Dosing weight: 111.2 Date/Time Rate/Dose/Volume Action Admin User Audit 07/10/23 1147 2,000 mg Given Herbie Mckinney MD PhD edited propofol (mcg/kg/min) Dosing weight: 111.2 Date/Time Rate/Dose/Volume Action Admin User Audit 07/10/23 1129 200 mg Given Herbie Mckinney MD PhD 1204 25 mcg/kg/min - 16.68 mL/hr New Bag Herbie Mckinney MD PhD HYDROmorphone 2 mg/mL (mg) Date/Time Rate/Dose/Volume Action Admin User Audit 07/10/23 1323 2 mg Given Herbie Mckinney MD PhD glycopyrrolate (mg) Date/Time Rate/Dose/Volume Action Admin User Audit 07/10/23 1439 0.6 mg Given Herbie Mckinney MD PhD calcium chloride (g) Date/Time Rate/Dose/Volume Action Admin User Audit 07/10/23 1444 1 g Given Herbie Mckinney MD PhD phenylephrine 100 mcg/mL (mcg) Date/Time Rate/Dose/Volume Action Admin User Audit 07/10/23 1449 100 mcg Given Herbie Mckinney MD PhD 1453 100 mcg Given Herbie Mckinney MD PhD 1456 100 mcg Given Herbie Mckinney MD PhD electrolyte-A (PLASMA-LYTE) bolus (mL) Date/Time Rate/Dose/Volume Action Admin User Audit 07/10/23 1238 New Bag Bre Mcallister, CCP 1239 200 mL Stopped Bre Mcallister, CCP NS 0.9% (mL) Date/Time Rate/Dose/Volume Action Admin User Audit 07/10/23 1155 New Bag Herbie Mckinney MD PhD sodium chloride 0.9% infusion (mL/hr) Dosing weight: 111.2 Date/Time Rate/Dose/Volume Action Admin User Audit 07/10/23 1121 50 mL/hr New Bag Herbie Mckinney MD PhD edited 1155 100 mL Stopped Herbie Mckinney MD PhD albumin 25 % (mL) Date/Time Rate/Dose/Volume Action Admin User Audit 07/10/23 1336 New Bag Gretchen Mcallisterily, CCP 1339 50 mL Stopped Bre Mcallister, CCP PLATELETS - CROSSMATCHED W2011 23 [id number] (mL) Date/Time Rate/Volume Action Admin User Audit 07/10/23 1455 New Bag Herbie Mckinney MD PhD 1456 340 mL Stopped Herbie Mckinney MD PhD FFP - CROSSMATCHED [id number] [id number] (mL) Date/Time Rate/Volume Action Admin User Audit 07/10/23 1501 New Herbie Cespedes MD PhD 1502 296 mL Stopped Herbie Mckinney MD PhD Events Date Time Event 07/10/2023 1121 Patient in Room 1121 Anesthesia Start 1121 Start Data Collection 1122 Perfusion Ready 1122 Start data Collection 1129 Induction The patient was reevaluated immediately before moderate or deep sedation use and before anesthesia induction. 1130 Intubation 1200 Incision Start 1226 Quick Note 2 units of autologous whole blood collected sterile fashion 1237 CPB ON 1238 Cooling Start Cooling to 26 degrees 1247 Aortic Clamp ON 1303 Regional Perfusion Begin ACP begin, flowing 1 - 1.4L/min including shunts 16 Fr Opti cannula Rt axillary 1318 Regional Perfusion End 1 cannula, 16Fr only 1320 Quick Note 2 cannulas, full flow 1338 Rewarming Start 1338 Cooling Stop 1424 Aortic Clamp OFF 1428 Quick Note Axillary cannula out 1445 CPB OFF Jose Arch root replacement XC - 97 CPB - 128 ACP - 15 Cooling time - 60 Warming time - 67 Cosigned by Keaton Lynn MD at 07/23/2023 10:23 AM CDT documented in this encounter Plan of Treatment Not on file documented as of this encounter Procedures Procedure Name Priority Date/Time Associated Diagnosis Comments ME AN PROCEDURE PLACEHOLDER Routine 07/10/2023 12:46 PM CDT ME AN PROCEDURE PLACEHOLDER Routine 07/10/2023 12:45 PM CDT PULMONARY ARTERY CATH Routine 07/10/2023 12:45 PM CDT BW AN SHEATH INTRODUCER PERFORMABLE Routine 07/10/2023 12:45 PM CDT ME AN PROCEDURE PLACEHOLDER Routine 07/10/2023 12:45 PM CDT ME AN CENTRAL LINE QUADRUPLE LUMEN Routine 07/10/2023 12:45 PM CDT ME AN PROCEDURE PLACEHOLDER Routine 07/10/2023 12:44 PM CDT ME AN PROCEDURE PLACEHOLDER Routine 07/10/2023 12:44 PM CDT ME AN PROCEDURE PLACEHOLDER Routine 07/10/2023 12:30 PM CDT ME AN ELECTIVE ENDOTRACHEAL AIRWAY Routine 07/10/2023 12:30 PM CDT documented in this encounter Results * ME AN PROCEDURE PLACEHOLDER (07/10/2023 12:46 PM CDT) Anatomical Region Laterality Modality Other Narrative 07/10/2023 12:46 PM CDT Herbie Mckinney MD PhD ? 07/10/2023 ??3:13 PM KELLEY Date/time: 07/10/2023 3:12 PM Staff: Performed by: Anesthesiologist: Herbie Mckinney MD PhD Preprocedure checklist: patient identified, procedure contraindications assessed, procedure consent, risks, benefits and alternatives discussed, monitors and equipment checked, timeout performed and KELLEY probe inserted into esophagus using lubricating jelly General procedure Information: Reason for procedure/indications: assessment of surgical repair Performed: personally Procedure performed at surgeon's request: yes Results discussed with surgeon: yes Images submitted to archive: ??yes Patient location: OR Intubated: yes Bite blocked placed: yes Probe Insertion: easy Complications: no Probe type: adult Modalities: 2D imaging, 3D imaging, continuous wave Doppler, pulsed wave Doppler and color Doppler Billing information: Physician requesting echo: Keaton Lynn MD CPT code: KELLEY placement and diagnostic exam, non-congenital (44583) ICD code(s) for medical necessity: I35.1 - Nonrheumatic aortic (valve) insufficiency, I71.2 - Thoracic aortic aneurysm, without rupture Echocardiographic and doppler measurements: Ventricles: Left ventricle: Cavity size: normal Hypertrophy: Yes Thrombus: No Global function: normal LVEF%: 50-60 Right ventricle: Cavity size: normal Hypertrophy: no Thrombus: No Global function: normal Interventricular septum: normal Regional function: 1- Basal anteroseptal: normal 2- Basal anterior: normal 3- Basal anterolateral: normal 4- Basal inferolateral: normal 5- Basal inferior: normal 6- Basal inferoseptal: normal 7- Mid anteroseptal: normal 8- Mid anterior: normal 9- Mid anterolateral: normal 10- Mid inferolateral: normal 11- Mid inferior: normal 12- Mid inferoseptal: normal 13- Apical anterior: normal 14- Apical lateral: normal 15- Apical inferior: normal 16- Apical septal: normal 17- Irvine: normal Valves: Aortic Valve: Annulus: normal Leaflet morphology: normal Leaflet motion: normal Stenosis: none Regurgitation: severe Mitral valve: Annulus: normal Leaflet morphology anterior: normal Leaflet morphology posterior: normal Leaflet motion anterior: normal Leaflet motion posterior: normal Stenosis: none Regurgitation: mild Tricuspid valve: Annulus: normal Leaflet morphology: normal Leaflet motion: normal Stenosis: none Regurgitation: mild Aorta: Ascending aorta: Size: dilated Diameter: 5.1 cm Dissection: no Plaque thickness(mm): 0-3 Plaque mobile: no Aortic arch: Size: normal Dissection: no Plaque thickness(mm): 0-3 Plaque mobile: no Descending aorta: Size: normal Dissection: no Plaque thickness(mm): 0-3 Plaque mobile: no Atria: Right atrium: Size: normal Spontaneous echo contrast: No Thrombus: no Mass: No Left atrium: Size: normal (normal) Spontaneous echo contrast: No Thrombus: no Mass: No Left atrial appendage: normal Interatrial septum: normal Diastolic function and other findings: Left pleural effusion: none Right pleural effusion: normal Pulmonary venous flow: normal Pre-procedure KELLEY exam summary: Severe aortic insufficiency. ??Annulus 28mm. ??Aortic root 4.5cm, surgeon aware. ??Ascending aorta 5.1cm. Normal LV, RV function, mild MR, TR Postprocedure (follow-up) KELLEY exam: LV: unchanged RV: unchanged Interventricular septum: unchanged Aortic valve: bioprosthetic Mitral valve: unchanged Pulmonic valve: unchanged Tricuspid valve: unchanged Atria: unchanged Aorta: unchanged Pericardium: unchanged Left pleural: unchanged Right pleural: unchanged Postprocedure (follow-up) KELLEY exam comments: Bioprosthetic aortic valve in place. ??Opens well, no regurgitation. ??Root, ascending aortic graft in place. ??Hyperdynamic LV, normal RV function. ?? Otherwise unchanged Attestation Statement: By signing this report the attending anesthesiologist certifies that he or she has personally reviewed and interpreted the echocardiogram and has reviewed and or edited and agrees with the written comments contained within the report. us Herbie Mckinney MD PhD ANESTHESIA ORDERABLES Ed ited Result - Final * BW AN SHEATH INTRODUCER PERFORMABLE, PULMONARY ARTERY CATH, ME AN PROCEDURE PLACEHOLDER (2:45 PM CDT) Narrative Herbie Mckinney MD PhD - 07/10/2023 12:45 PM CDT Herbie Mckinney MD PhD ? 07/10/2023 12:46 PM Central Venous Line Patient location: OR End Time: 07/10/2023 11:44 AM Indication: central venous access and CVP monitoring Staff: Supervising provider: Herbie Mckinney MD PhD Placed by: CLEMENTINE: Tereso Chavez CRNA Procedure prep: Patient position: Trendelenburg. PPE: provider hand hygiene, provider hat/mask, sterile gloves, sterile gown and full body drape. Prep solution: chlorhexadine/alcohol was applied to area. Ultrasound Evaluation: Ultrasound was prepped into field. Central line: Laterality: right Site: internal jugular Catheter type: introducer sheath Catheter size: 9 Fr. Catheter length: 10 cm Technique: anatomy identified with surface landmarks, vein located with finder needle, Seldinger technique, wire threaded easily and wire removed intact Venous verification: manometry Post insertion: all ports aspirated, all ports flushed easily, line sutured in place and occlusive dressing applied Number of attempts: 1 PA catheter placement: PA catheter type: non-oximetric PA catheter size: 7.5 Fr PA catheter laterality: right PA catheter site: internal jugular Placement guided by: pressure tracing changes PA catheter depth 49 cmNo Assessment: Events: patient tolerated procedure well with no complications us Herbie Mckinney MD PhD ANESTHESIA ORDERABLES Fi nal Result * ME AN CENTRAL LINE QUADRUPLE LUMEN, ME AN PROCEDURE PLACEHOLDER (07/10/2023 12:45 PM CDT) Narrative Herbie Mckinney MD PhD - 07/10/2023 12:45 PM CDT Herbie Mckinney MD PhD ? 07/10/2023 12:45 PM Central Venous Line Patient location: OR Indication: central venous access and CVP monitoring Staff: Supervising provider: Herbie Mckinney MD PhD Placed by: KEYCASE ASSEMBLER: Tereso Chavez CRNA Procedure prep: Patient position: Trendelenburg. PPE: provider hand hygiene, provider hat/mask, sterile gloves, sterile gown and full body drape. Prep solution: chlorhexadine/alcohol was applied to area. Ultrasound Evaluation: Ultrasound was prepped into field. Central line: Laterality: right Site: internal jugular Catheter type: quad lumen Catheter size: 8.5 Fr. Catheter length: 16 cm Technique: wire threaded easily, anatomy identified with surface landmarks, vein located with finder needle, Seldinger technique and wire removed intact Venous verification: manometry Post insertion: all ports aspirated, all ports flushed easily, line sutured in place and occlusive dressing applied Number of attempts: 1 Assessment: Events: patient tolerated procedure well with no complications us Herbie Mckinney MD PhD ANESTHESIA ORDERABLES Fi nal Result * ME AN PROCEDURE PLACEHOLDER (07/10/2023 12:44 PM CDT) Herbie Casas MD PhD - 07/10/2023 12:44 PM CDT Herbie Mckinney MD PhD ? 07/10/2023 12:45 PM Arterial Line Patient location: OR End time: 07/10/2023 11:44 AM Indication: continuous blood pressure monitoring and blood sampling needed Staff: Placed by: Anesthesiologist: Herbie Mckinney MD PhD Procedure prep: Prep solution: chlorhexadine/alcohol Prep: provider hat/mask Arterial line: Catheter size: 20 gauge Catheter length: 1 and 3/4 inch Catheter type: wire-guided catheter Seldinger technique: yes Laterality: right Site: radial artery Line secured: tape and Tegaderm Results: good waveform and good blood return Number of attempts: 1 Assessment: Events: patient tolerated procedure well with no complications us Herbie Mckinney MD PhD ANESTHESIA ORDERABLES Ed ited Result - Final * ME AN PROCEDURE PLACEHOLDER (07/10/2023 12:44 PM CDT) Herbie Casas MD PhD - 07/10/2023 12:44 PM CDT Herbie Mckinney MD PhD ? 07/10/2023 12:44 PM Arterial Line Patient location: OR End time: 07/10/2023 11:34 AM Indication: continuous blood pressure monitoring and blood sampling needed Staff: Placed by: Anesthesiologist: Herbie Mckinney MD PhD Procedure prep: Prep solution: chlorhexadine/alcohol Prep: provider hat/mask Arterial line: Catheter size: 20 gauge Catheter length: 1 and 3/4 inch Catheter type: wire-guided catheter Seldinger technique: yes Laterality: left Site: radial artery Line secured: tape and Tegaderm Results: good waveform and good blood return Number of attempts: 1 Assessment: Events: patient tolerated procedure well with no complications Herbie Mckinney MD PhD ANESTHESIA ORDERABLES Fi nal Result * ME AN ELECTIVE ENDOTRACHEAL AIRWAY, ME AN PROCEDURE PLACEHOLDER (07/10/2023 12:30 PM CDT) Narrative Herbie Mckinney MD PhD - 07/10/2023 12:30 PM CDT Herbie Mckinney MD PhD ? 07/10/2023 12:30 PM Airway Patient location: OR Urgency: elective Indications for airway management: anesthesia Difficult airway: no Staff: Placed by: Anesthesiologist: Herbie Mckinney MD PhD Emergent airway documentation: Risks and benefits discussed: yes Consent obtained: yes Consent given by: patient Airway prep: Preoxygenated: yes Patient position: sniffing Mask difficulty assessment: 1 - vent by mask Final airway details: Final airway type: endotracheal airway Tube type: ETT ETT size: 8.0 mm Cuffed: yes Technique used for successful ETT placement: video laryngoscopy Insertion site: oral Video blade type: Seymour Cormack-Lehane (direct): grade I - full view of glottis Cuff inflated with: air ETT to lips: 23 cm Placement verified by: auscultation and CO2 detection Airway secured with: silk tape Number of attempts: 1 Herbie Mckinney MD PhD ANESTHESIA ORDERABLES Fi nal Result documented in this encounter Visit Diagnoses Not on filedocumented in this encounter Administered Medications Inactive Administered Medications - up to 3 most recent administrations Medication Order MAR Action Action Date Dose Rate Site albumin 25 % bottle intravenous, Continuous PRN, Starting on Sun07/10/23 at 1336, Anesthesia Intra-op New Bag 07/10/2023 1:36 PM CDT calcium chloride IV syringe intravenous, As needed, Starting on Sun07/10/23 at 1444, Anesthesia Intra-op Given 07/10/2023 3:39 PM CDT 1 g Given 07/10/2023 2:44 PM CDT 1 g ceFAZolin (ANCEF) 2,000 mg/20 mL in sterile water (premix) 2,000 mg 2,000 mg, intravenous, at 400 mL/hr, Administer over 3 Minutes, Once, On Sun07/10/23 at 1015, For 1 dose, Pre-Op, Administer within 60 minutes of incision., Indications: Prophylaxis, SurgicalIndications:Prophylaxis, Surgical Given 07/10/2023 3:40 PM CDT 2,000 mg Given 07/10/2023 11:47 AM CDT 2,000 mg citrate dextrose solution (ACD-A) infusion irrigation, As needed, Starting on Sun07/10/23 at 1122, Anesthesia Intra-op Given 07/10/2023 11:22 AM CDT 1,000 mL electrolyte-A (PLASMA-LYTE) IVPB intravenous, Continuous PRN, Starting on Sun07/10/23 at 1238, Anesthesia Intra-op New Bag 07/10/2023 12:38 PM CDT fentaNYL (SUBLIMAZE) preservative free injection intravenous, As needed, Starting on Sun07/10/23 at 1133, Anesthesia Intra-op Given 07/10/2023 12:02 PM CDT 100 mc g Given 07/10/2023 11:42 AM CDT 200 mcg Given 07/10/2023 11:33 AM CDT 200 mcg glycopyrrolate (ROBINUL) injection intravenous, Administer over 1 Minutes, As needed, Starting on Sun07/10/23 at 1439, Anesthesia Intra-op Given 07/10/2023 2:39 PM CDT 0.6 mg heparin 1,000 unit/mL injection intravenous, As needed, Starting on Sun07/10/23 at 1228, Anesthesia Intra-op New Bag 07/10/2023 12:28 PM CDT 40,000 Units heparin 1,000 unit/mL injection intravenous, As needed, Starting on Sun07/10/23 at 1345, Anesthesia Intra-op Bolus 07/10/2023 1:47 PM CDT 5,000 Units New Bag 07/10/2023 1:45 PM CDT 10,000 Units HYDROmorphone (DILAUDID) injection intravenous, Administer over 2 Minutes, As needed, Starting on Sun07/10/23 at 1323, Anesthesia Intra-op Given 07/10/2023 1:23 PM CDT 2 mg Lactated Ringer's (LR) 1,000 mL with albumin 50 mL, heparin 10 mL, mannitol 12.5 g solution device prime, Continuous PRN, Starting on Sun07/10/23 at 1122, Anesthesia Intra-op New Bag 07/10/2023 11:22 AM CDT 1,000 mL mannitol 26 mL, lidocaine (cardiac) (XYLOCAINE) 13 mL, magnesium sulfate 8 mL solution intravenous, Continuous PRN, Starting on Sun07/10/23 at 1452, Anesthesia Intra-op New Bag 07/10/2023 2:52 PM CDT 36 mL midazolam (VERSED) 1 mg/mL preservative free injection intravenous, Administer over 2 Minutes, As needed, Starting on Sun07/10/23 at 1119, Anesthesia Intra-op Given 07/10/2023 11:29 AM CDT 2 mg Given 07/10/2023 11:19 AM CDT 3 mg norepinephrine (LEVOPHED) injection intravenous, As needed, Starting on Sun07/10/23 at 1548, Anesthesia Intra-op Given 07/10/2023 3:49 PM CDT 8 mcg Given 07/10/2023 3:48 PM CDT 8 mcg norepinephrine in dextrose 5% (LEVOPHED) 8,000 mcg/250 mL (32 mcg/mL) infusion (premix) intravenous, Continuous PRN, Starting on Sun07/10/23 at 1211, Anesthesia Intra-op Rate/Dose Change 07/10/2023 4:24 PM CDT 0.04 mcg/kg/min 8.34 mL/hr Rate/Dose Change 07/10/2023 2:54 PM CDT 0.04 mcg/kg/min 8. 34 mL/hr Rate/Dose Change 07/10/2023 12:22 PM CDT 0.02 mcg/kg/min 4 .17 mL/hr phenylephrine (OLIVIA-SYNEPHRINE) 1 mg/10 mL (100 mcg/mL) in sodium chloride 0.9% (premix) intravenous, As needed, Starting on Sun07/10/23 at 1449, Anesthesia Intra-op Given 07/10/2023 3:32 PM CDT 100 mcg Given 07/10/2023 2:56 PM CDT 100 mcg Given 07/10/2023 2:53 PM CDT 100 mcg phenylephrine (OLIVIA-SYNEPHRINE) injection intravenous, As needed, Starting on Sun07/10/23 at 1239, Anesthesia Intra-op Given 07/10/2023 2:42 PM CDT 300 mcg Given 07/10/2023 2:41 PM CDT 300 mcg Given 07/10/2023 2:39 PM CDT 300 mcg potassium chloride 2 mEq/mL arrest solution intracardiac, As needed, Starting on Sun07/10/23 at 1329, Anesthesia Intra-op Given 07/10/2023 2:52 PM CDT 38 mEq Given 07/10/2023 1:33 PM CDT 2 mEq Given 07/10/2023 1:32 PM CDT 2 mEq propofoL (DIPRIVAN) 10 mg/mL IV intravenous, As needed, Starting on Sun07/10/23 at 1129, Anesthesia Intra-op New Bag 07/10/2023 12:04 PM CDT 25 mcg/kg/min 16.68 mL/hr Given 07/10/2023 11:29 AM CDT 200 mg protamine injection intravenous, As needed, Starting on Sun07/10/23 at 1451, Anesthesia Intra-op, Indications: Heparin ToxicityIndications:Heparin Toxicity Given 07/10/2023 2:54 PM CDT 50 mg Given 07/10/2023 2:51 PM CDT 250 mg rocuronium (ZEMURON) injection intravenous, As needed, Starting on Sun07/10/23 at 1138, Anesthesia Intra-op Given 07/10/2023 12:04 PM CDT 50 mg Given 07/10/2023 11:38 AM CDT 100 mg sodium bicarbonate 8.4 % (1 mEq/mL) injection intravenous, Administer over 5 Minutes, As needed, Starting on Sun07/10/23 at 1122, Anesthesia Intra-op Given 07/10/2023 2:32 PM CDT 10 mEq Given 07/10/2023 2:03 PM CDT 15 mEq Given 07/10/2023 1:46 PM CDT 25 mEq sodium chloride 0.9% infusion 30 mL/hr, intravenous, Continuous, Starting on Sun07/10/23 at 1015, Pre-Op New Bag 07/10/2023 11:21 AM CDT 50 mL/ hr sodium chloride 0.9% infusion intravenous, Continuous PRN, Starting on Sun07/10/23 at 1155, Anesthesia Intra-op New Bag 07/10/2023 11:55 AM CDT succinylcholine (ANECTINE) injection intravenous, As needed, Starting on Sun07/10/23 at 1129, Anesthesia Intra-op Given 07/10/2023 11:29 AM CDT 100 mg tranexamic acid (CYKLOKAPRON) 1,000 mg/10 mL (100 mg/mL) solution intravenous, As needed, Starting on Sun07/10/23 at 1235, Anesthesia Intra-op Given 07/10/2023 12:35 PM CDT 2,000 mg Transfuse plasma Timed New Bag 07/10/2023 3:01 PM CDT Transfuse plasma Timed New Bag 07/10/2023 3:09 PM CDT Transfuse platelets Timed New Bag 07/10/2023 2:55 PM CDT documented in this encounter Orders Medications Ordered That Jorge ht Not Have Been Administered Count Last Ordered Date First Ordered Date Lactated Ringer's (LR) 1,000 mL with albumin 50 mL, heparin 10 mL, mannitol 6.25 g solution 1 07/10/2023 documented in this encounter Care Teams [employer] Relationship Specialty Start Date End Date Radha Lozada MD [address] [place] [address] [place] [address] PCP - General Family Medicine 06/25/23 04/29/24 Kali Reddy MD Consulting Physician Cardiology 05/19/19 Keaton Lynn MD [address] [facility] [address] [place] [address] Consulting Physician Cardiothoracic Surgery 06/07/23 documented as of this encounter
--- OUTSIDE RECORDS SUMMARY | 2024-09-29 22:15 | XMS_ITS | Clinical Summary ---
Author Organization Unknown Care Team Providers Care [employer] Name Role Phone MATTHEW PHILLIPS MD, YOLETTE Unavailable Unavailable LOU RN, SABINO Unavailable Unavailalla ROBERTSON LPN, ALANA Unavailable Unavailable MAYANK PT, ROBER Unavailable Unavailable JUNIE EXCHANGE MECHANIC, JOSE Unavailable Unavailabl e JUAN J OT, CAL JANSEN Unavailable LEYDA Briceño Unavailable Unavailable Payers Payer Name Policy Type Policy Number Effective Date Expira tion Date MEDICARE.[facility] [id number] Problems Condition Name Condition Details Condition Category Status Onset Date Resolution Date Last Treatment Date Treating Clinician Comments ENCNTR FOR SURGICAL AFTCR FOLLOWING SURGERY ON THE CIRC SYS Active 07-12 00:00: 00 ACUTE POSTHEMORRHA GIC ANEMIA Active 2022-10 00:00: 00 UNSPECIFIED ATRIAL FIBRILLATION Active 2022-10 00:00: 00 ESSENTIAL (PRIMARY) HYPERTENSION Active 07-10 00:00: 00 DUODENAL ULCER, UNSP ACUTE OR CHRONIC, W/O HEMOR OR PERF Active 2022-10 00:00: 00 DIZZINESS AND GIDDINESS Active 2022-10 00:00: 00 OBSTRUCTIVE SLEEP APNEA (ADULT) (PEDIATRIC) Active 07-11 00:00: 00 HYPO-OSMOLAL ITY AND HYPONATREMIA Active 07-09 00:00: 00 UNSPECIFIED OSTEOARTHRIT IS, UNSPECIFIED SITE Active 07-09 00:00: 00 OTHER DISORDERS OF PHOSPHORUS METABOLISM Active 07-09 00:00: 00 PURE HYPERCHOLEST EROLEMIA, UNSPECIFIED Active 10-15 00:00: 00 OBESITY, UNSPECIFIED Active 10-15 00:00: 00 PRESENCE OF PROSTHETIC HEART VALVE Active 07-10 00:00: 00 BODY MASS INDEX [BMI] 31.0-31.9, ADULT Active 1- 00:00: 00 Allergies, Adverse Reactions, Alerts Allergy Name Allergy Type Status Severity Reaction(s) Onset Date Inactive Date Treating Clinician Comments NO KNOWN ALLERGIES Propensity to adverse reactions Active 2022-10 09:39: 06 Medications Ordered Medication Name Filled Medication Name Start Date Stop Date Current Medication? Ordering Clinician Indication Dosage Frequency Signature (SIG) Comments Components losartan 100 mg tablet 830 00:00: 00 07-16 00:00 :00 No [id number] Per instruc tions Per instructio ns (route: oral) Med Classific ation: Cardiovas cular Therapy Agents acetaminoph en 325 mg tablet 2022-10 00:00: 00 Yes [id number] PAIN 2 tablet EVERY 6 HOURS 2 tablet EVERY 6 HOURS (route: oral) Med Classific ation: Analgesic , Anti-infl ammatory or Antipyret ic aspirin 81 mg tablet,tanvi yed release 2022-10 00:00: 00 Yes [id number] HEART 1 tablet DAILY 1 tablet DAILY (route: oral) Med Classific ation: Hematolog ical Agents atorvastati n 40 mg tablet 2022-10 00:00: 00 Yes [id number] CHOLESTEROL 1 tablet DAILY 1 tablet DAILY (route: oral) Med Classific ation: Cardiovas cular Therapy Agents furosemide 20 mg tablet 2022-10 00:00: 00 08-01 00:00 :00 No [id number] DIURETIC 1 tablet DAILY 1 tablet DAILY (route: oral) Med Classific ation: Cardiovas cular Therapy Agents hydrocodone 5 mg-acetamin ophen 325 mg tablet 2022-10 00:00: 00 08-01 00:00 :00 No [id number] PAIN 1 tablet EVERY 4 HOURS 1 tablet EVERY 4 HOURS (route: oral) Med Classific ation: Analgesic , Anti-infl ammatory or Antipyret ic metoprolol tartrate 25 mg tablet 2022-10 0 00:00: 00 07-17 23:59 :00 No [id number] BLOOD PRESSURE .5 tablet 2 TIMES DAILY .5 tablet 2 TIMES DAILY (route: oral) Med Classific ation: Cardiovas cular Therapy Agents potassium chloride ER 10 mEq capsule,ext ended release 2022-10 00:00: 00 08-01 23:59 :00 No [id number] SUPPLEMENT 1 capsule DAILY 1 capsule DAILY (route: oral) Med Classific ation: Electroly te Balance-N utritiona l Products metoprolol tartrate 25 mg tablet 2022-10 00:00: 00 Yes [id number] BLOOD PRESSURE 1 tablet 2 TIMES DAILY 1 tablet 2 TIMES DAILY (route: oral) Med Classific ation: Cardiovas cular Therapy Agents pantoprazol e 40 mg tablet,tanvi yed release 2022-10 00:00: 00 Yes [id number] STOMACH ACID 1 tablet 2 TIMES DAILY 1 tablet 2 TIMES DAILY (route: oral) Med Classific ation: Gastroint estinal Therapy Agents Vital Signs Vital Name Observation Time Observation Value Commen ts Temperature 2023-08-20 08:39:00.000 98 [degF] Temperature 2023-08-14 14:16:00.000 98.2 [degF] Temperature 2023-08-14 08:41:00.000 97.8 [degF] Temperature 2023-08-13 17:13:00.000 98.3 [degF] Temperature 2023-08-10 10:40:00.000 99.3 [degF] Temperature 2023-08-10 08:44:00.000 97.8 [degF] Temperature 2023-08-07 16:13:00.000 98.9 [degF] Temperature 2023-08-06 10:08:00.000 97.9 [degF] Temperature 2023-08-01 13:54:00.000 98.3 [degF] Temperature 2023-07-26 11:23:00.000 98 [degF] Temperature 2023-07-23 13:40:00.000 98.7 [degF] Temperature 2023-07-23 10:51:00.000 98.9 [degF] Temperature 2023-07-20 11:05:00.000 98.4 [degF] Temperature 2023-07-19 09:00:00.000 98.8 [degF] Temperature 2023-07-17 10:59:00.000 97.8 [degF] Temperature 2023-07-16 10:07:00.000 97.5 [degF] BMI (%) 2023-08-01 13:54:00.000 31 kg/m2 BMI (%) 2023-07-16 10:00:49.000 33 kg/m2 Height 2023-08-01 13:54:00.000 72 [in_us] Height 2023-07-16 10:00:40.000 72 [in_us] Pulse 2023-08-20 08:39:00.000 82 /min Pulse 2023-08-14 14:16:00.000 90 /min Pulse 2023-08-14 08:41:00.000 87 /min Pulse 2023-08-13 17:13:00.000 83 /min Pulse 2023-08-10 10:40:00.000 86 /min Pulse 2023-08-10 08:44:00.000 85 /min Pulse 2023-08-07 16:13:00.000 98 /min Pulse 2023-08-06 10:08:00.000 96 /min Pulse 2023-08-01 13:54:00.000 100 /min Pulse 2023-07-26 11:23:00.000 100 /min Pulse 2023-07-23 13:40:00.000 90 /min Pulse 2023-07-23 10:51:00.000 90 /min Pulse 2023-07-20 11:05:00.000 93 /min Pulse 2023-07-19 09:00:00.000 88 /min Pulse 2023-07-17 11:12:00.000 75 /min Pulse 2023-07-17 10:59:00.000 65 /min Pulse 2023-07-16 10:07:00.000 64 /min O2 Saturation (%) 2023-08-20 08:39:00.000 98 % O2 Saturation (%) 2023-08-14 14:16:00.000 98 % O2 Saturation (%) 2023-08-14 08:41:00.000 99 % O2 Saturation (%) 2023-08-13 17:15:00.000 99 % O2 Saturation (%) 2023-08-10 10:43:00.000 97 % O2 Saturation (%) 2023-08-10 08:44:00.000 97 % O2 Saturation (%) 2023-08-07 16:13:00.000 95 % O2 Saturation (%) 2023-08-06 10:08:00.000 98 % O2 Saturation (%) 2023-08-01 13:54:00.000 98 % O2 Saturation (%) 2023-07-26 11:25:00.000 96 % O2 Saturation (%) 2023-07-23 13:40:00.000 97 % O2 Saturation (%) 2023-07-23 10:55:00.000 96 % O2 Saturation (%) 2023-07-20 11:07:00.000 95 % O2 Saturation (%) 2023-07-19 09:00:00.000 94 % O2 Saturation (%) 2023-07-17 11:12:00.000 96 % O2 Saturation (%) 2023-07-17 10:59:00.000 94 % O2 Saturation (%) 2023-07-16 10:07:00.000 95 % Respirations 2023-08-20 08:39:00.000 18 /min Respirations 2023-08-14 14:16:00.000 18 /min Respirations 2023-08-14 08:41:00.000 18 /min Respirations 2023-08-13 17:13:00.000 18 /min Respirations 2023-08-10 10:40:00.000 18 /min Respirations 2023-08-10 08:44:00.000 18 /min Respirations 2023-08-07 16:13:00.000 18 /min Respirations 2023-08-06 10:08:00.000 18 /min Respirations 2023-08-01 13:54:00.000 20 /min Respirations 2023-07-26 11:23:00.000 18 /min Respirations 2023-07-23 13:40:00.000 18 /min Respirations 2023-07-23 10:51:00.000 18 /min Respirations 2023-07-20 11:05:00.000 18 /min Respirations 2023-07-19 09:00:00.000 18 /min Respirations 2023-07-17 10:59:00.000 18 /min Respirations 2023-07-16 10:07:00.000 18 /min Weight (lbs) 2023-08-01 13:54:00.000 233 [lb_av] Weight (lbs) 2023-07-16 10:00:49.000 245 [lb_av] Systolic Blood Pressure 2023-08-20 08:39:00.000 108 mm [Hg] Systolic Blood Pressure 2023-08-14 14:16:00.000 121 mm [Hg] Systolic Blood Pressure 2023-08-14 08:41:00.000 116 mm [Hg] Systolic Blood Pressure 2023-08-13 17:13:00.000 102 mm [Hg] Systolic Blood Pressure 2023-08-10 10:40:00.000 108 mm [Hg] Systolic Blood Pressure 2023-08-10 08:44:00.000 128 mm [Hg] Systolic Blood Pressure 2023-08-07 16:13:00.000 102 mm [Hg] Systolic Blood Pressure 2023-08-06 10:08:00.000 102 mm [Hg] Systolic Blood Pressure 2023-08-01 13:54:00.000 102 mm [Hg] Systolic Blood Pressure 2023-07-26 11:23:00.000 122 mm [Hg] Systolic Blood Pressure 2023-07-23 13:40:00.000 100 mm [Hg] Systolic Blood Pressure 2023-07-23 10:51:00.000 112 mm [Hg] Systolic Blood Pressure 2023-07-20 11:05:00.000 134 mm [Hg] Systolic Blood Pressure 2023-07-19 09:00:00.000 108 mm [Hg] Systolic Blood Pressure 2023-07-17 10:59:00.000 125 mm [Hg] Systolic Blood Pressure 2023-07-16 10:07:00.000 148 mm [Hg] Diastolic Blood Pressure 2023-08-20 08:39:00.000 64 mm [Hg] Diastolic Blood Pressure 2023-08-14 14:16:00.000 62 mm [Hg] Diastolic Blood Pressure 2023-08-14 08:41:00.000 86 mm [Hg] Diastolic Blood Pressure 2023-08-13 17:13:00.000 70 mm [Hg] Diastolic Blood Pressure 2023-08-10 10:40:00.000 70 mm [Hg] Diastolic Blood Pressure 2023-08-10 08:44:00.000 82 mm [Hg] Diastolic Blood Pressure 2023-08-07 16:13:00.000 72 mm [Hg] Diastolic Blood Pressure 2023-08-06 10:08:00.000 75 mm [Hg] Diastolic Blood Pressure 2023-08-01 13:54:00.000 64 mm [Hg] Diastolic Blood Pressure 2023-07-26 11:23:00.000 60 mm [Hg] Diastolic Blood Pressure 2023-07-23 13:40:00.000 68 mm [Hg] Diastolic Blood Pressure 2023-07-23 10:51:00.000 78 mm [Hg] Diastolic Blood Pressure 2023-07-20 11:05:00.000 81 mm [Hg] Diastolic Blood Pressure 2023-07-19 09:00:00.000 78 mm [Hg] Diastolic Blood Pressure 2023-07-17 10:59:00.000 67 mm [Hg] Diastolic Blood Pressure 2023-07-16 10:07:00.000 84 mm [Hg] Plan of Treatment Planned Activity Planned Date Details Comments Future Scheduled Test PHYSICAL T HERAPIST TO EVALUATE [code = PHYSICAL THERAPIST TO EVALUATE] Future Scheduled Test OCCUPATION AL THERAPIST TO EVALUATE [code = OCCUPATIONAL THERAPIST TO EVALUATE] Future Scheduled Test MEDICATION MANAGEMENT; SKILLED NURSE TO REVIEW MEDICATIONS FOR INTERACTIONS, EFFECTIVENESS OF DRUG THERAPY, AND SIGNS/SYMPTOMS OF ADVERSE REACTIONS. MAY INSTRUCT AND REINFORCE MEDICATION TEACHING RELATED TO THE USE OF MEDICATIONS, DOSAGE, FREQUENCY, PURPOSE, SIDE EFFECTS, AND TO REPORT COMPLICATIONS. [code = MEDICATION MANAGEMENT; SKILLED NURSE TO REVIEW MEDICATIONS FOR INTERACTIONS, EFFECTIVENESS OF DRUG THERAPY, AND SIGNS/SYMPTOMS OF ADVERSE REACTIONS. MAY INSTRUCT AND REINFORCE MEDICATION TEACHING RELATED TO THE USE OF MEDICATIONS, DOSAGE, FREQUENCY, PURPOSE, SIDE EFFECTS, AND TO REPORT COMPLICATIONS. ] Future Scheduled Test FALL REDUC TION MANAGEMENT; NURSING TO PROVIDE SKILLED ASSESSMENT, EDUCATION, AND INTERVENTION TO IDENTIFY FALL RISK FACTORS SUCH MEDICATIONS THAT MAY CAUSE DIZZINESS, CHRONIC DISEASES, PSYCHOLOGICAL FACTORS, AND EMPOWER/EDUCATE PATIENT/CAREGIVER TO MINIMIZE FALL RISK. [code = FALL REDUCTION MANAGEMENT; NURSING TO PROVIDE SKILLED ASSESSMENT, EDUCATION, AND INTERVENTION TO IDENTIFY FALL RISK FACTORS SUCH MEDICATIONS THAT MAY CAUSE DIZZINESS, CHRONIC DISEASES, PSYCHOLOGICAL FACTORS, AND EMPOWER/EDUCATE PATIENT/CAREGIVER TO MINIMIZE FALL RISK.] Future Scheduled Test RN TO OBSE RVE, ASSESS, EVALUATE, AND DEVELOP AN INDIVIDUALIZED PLAN OF CARE. AGENCY MAY ACCEPT ORDERS FROM CONSULTING PHYSICIANS DR GEETA MCGREGOR AND DR RIVER ASH. RN TO OBSERVE AND ASSESS, REHEATER HELPER TO OBSERVE FOR RISK FOR FALLS AND INSTRUCT IN FALL PREVENTION, HOME SAFETY, MEDICATION MANAGEMENT, INFECTION PREVENTION, AND NUTRITION MANAGEMENT. SN MAY PERFORM O2 SATURATION LEVEL ON ADMISSION AND PRN TO ASSESS RESPIRATORY STATUS, WITH NOTIFICATION TO THE PHYSICIAN IF SATURATION IS 90% IN THE ABSENCE OF MORE SPECIFIC PARAMETERS FROM THE PHYSICIAN. AGENCY MAY PERFORM A RESUMPTION OF CARE VISIT FOLLOWING ANY HOSPITAL ADMISSION. SKILLED NURSE TO MONITOR CO-MORBID CONDITIONS LISTED ON THE PLAN OF CARE AND ANY NEW CONDITIONS THAT PRESENT THEMSELVES DURING THIS EPISODE TO IDENTIFY CHANGES AND INTERVENE TO MINIMIZE COMPLICATIONS. [code = RN TO OBSERVE, ASSESS, EVALUATE, AND DEVELOP AN INDIVIDUALIZED PLAN OF CARE. AGENCY MAY ACCEPT ORDERS FROM CONSULTING PHYSICIANS DR GEETA MCGREGOR AND DR RIVER ASH. RN TO OBSERVE AND ASSESS, REHEATER HELPER TO OBSERVE FOR RISK FOR FALLS AND INSTRUCT IN FALL PREVENTION, HOME SAFETY, MEDICATION MANAGEMENT, INFECTION PREVENTION, AND NUTRITION MANAGEMENT. SN MAY PERFORM O2 SATURATION LEVEL ON ADMISSION AND PRN TO ASSESS RESPIRATORY STATUS, WITH NOTIFICATION TO THE PHYSICIAN IF SATURATION IS 90% IN THE ABSENCE OF MORE SPECIFIC PARAMETERS FROM THE PHYSICIAN. AGENCY MAY PERFORM A RESUMPTION OF CARE VISIT FOLLOWING ANY HOSPITAL ADMISSION. SKILLED NURSE TO MONITOR CO-MORBID CONDITIONS LISTED ON THE PLAN OF CARE AND ANY NEW CONDITIONS THAT PRESENT THEMSELVES DURING THIS EPISODE TO IDENTIFY CHANGES AND INTERVENE TO MINIMIZE COMPLICATIONS.] Future Scheduled Test PAIN MANAG EMENT; SKILLED NURSE TO OBSERVE, ASSESS, AND PROVIDE EDUCATION ON PAIN MANAGEMENT TECHNIQUES. [code = PAIN MANAGEMENT; SKILLED NURSE TO OBSERVE, ASSESS, AND PROVIDE EDUCATION ON PAIN MANAGEMENT TECHNIQUES.] Future Scheduled Test SKILLED NU RSE TO PERFORM/TEACH INCISION CARE TO STERNUM AND L UPPER QUADRANT AREAS. LEAVE OPEN TO AIR, ASSESS FOR SS OF INFECTION [code = SKILLED NURSE TO PERFORM/TEACH INCISION CARE TO STERNUM AND L UPPER QUADRANT AREAS. LEAVE OPEN TO AIR, ASSESS FOR SS OF INFECTION ] Future Scheduled Test RISK FOR H OSPITALIZATION; SKILLED NURSE TO INSTRUCT PATIENT/CAREGIVER ON RISK FOR HOSPITALIZATION/EMERGENCY ROOM VISITS, TEACH SIGNS AND SYMPTOMS THAT PUT PATIENT AT RISK, WHEN TO NOTIFY NURSE/PHYSICIAN OF COMPLICATIONS/DECLINE, AND WHEN TO CALL 911. [code = RISK FOR HOSPITALIZATION; SKILLED NURSE TO INSTRUCT PATIENT/CAREGIVER ON RISK FOR HOSPITALIZATION/EMERGENCY ROOM VISITS, TEACH SIGNS AND SYMPTOMS THAT PUT PATIENT AT RISK, WHEN TO NOTIFY NURSE/PHYSICIAN OF COMPLICATIONS/DECLINE, AND WHEN TO CALL 911.] Future Scheduled Test CARDIOVASC ULAR SYSTEM; SKILLED NURSE TO ASSESS AND TEACH RELATED TO ALTERED CARDIOVASCULAR STATUS TO MINIMIZE COMPLICATIONS AND REDUCE HOSPITALIZATION. [code = CARDIOVASCULAR SYSTEM; SKILLED NURSE TO ASSESS AND TEACH RELATED TO ALTERED CARDIOVASCULAR STATUS TO MINIMIZE COMPLICATIONS AND REDUCE HOSPITALIZATION.] Future Scheduled Test HYPERTENSI ON MANAGEMENT; SKILLED NURSE TO ASSESS/TEACH WARNING SIGNS AND SYMPTOMS TO AVOID HOSPITALIZATION. [code = HYPERTENSION MANAGEMENT; SKILLED NURSE TO ASSESS/TEACH WARNING SIGNS AND SYMPTOMS TO AVOID HOSPITALIZATION.] Future Scheduled Test [facility]ENC[facility] MAY ACCEPT ORDERS FROM THE FOLLOWING PHYSICIANS: DR. DAX MCGREGOR AGENCY MAY PERFORM A RESUMPTION OF CARE VISIT FOLLOWING ANY HOSPITAL ADMISSION. PHYSICAL THERAPY TO EVALUATE, ASSESS AND MONITOR, PROVIDE SKILLED THERAPEUTIC INTERVENTION, ACTIVITY, EDUCATION, AND TRAINING TO ADDRESS: TRANSFER TRAINING (PT) GAIT TRAINING (PT) NEUROMUSCULAR RE-EDUCATION / BALANCE RETRAINING (PT) THERAPEUTIC EXERCISES (PT) STAIR TRAINING (PT) OXYGEN SATURATION (PT). NOTIFY MD IF 02SATS BELOW 90% AFTER 10 MIN OF REST. PAIN MANAGEMENT (PT) PHYSICAL THERAPY TO INSTRUCT PATIENT/CAREGIVER ON RISK FOR HOSPITALIZATION/EMERGENCY ROOM VISITS, TEACH SIGNS AND SYMPTOMS THAT PUT PATIENT AT RISK, WHEN TO NOTIFY NURSE/PHYSICIAN OF COMPLICATIONS/DECLINE, AND WHEN TO CALL 911. PHYSICAL THERAPY TO OBSERVE WOUND/INCISION AND/OR INTACT DRESSING ON STERNUM AND REPORT EARLY SIGNS AND SYMPTOMS OF WOUND DETERIORATION, COMPLICATIONS, OR INFECTION TO RN CLINICAL HOUSE NURSE AND/OR PHYSICIAN. [code = HOME HEALTH AGENCY MAY ACCEPT ORDERS FROM THE FOLLOWING PHYSICIANS: DR. DAX MCGREGOR AGENCY MAY PERFORM A RESUMPTION OF CARE VISIT FOLLOWING ANY HOSPITAL ADMISSION. PHYSICAL THERAPY TO EVALUATE, ASSESS AND MONITOR, PROVIDE SKILLED THERAPEUTIC INTERVENTION, ACTIVITY, EDUCATION, AND TRAINING TO ADDRESS: TRANSFER TRAINING (PT) GAIT TRAINING (PT) NEUROMUSCULAR RE-EDUCATION / BALANCE RETRAINING (PT) THERAPEUTIC EXERCISES (PT) STAIR TRAINING (PT) OXYGEN SATURATION (PT). NOTIFY MD IF 02SATS BELOW 90% AFTER 10 MIN OF REST. PAIN MANAGEMENT (PT) PHYSICAL THERAPY TO INSTRUCT PATIENT/CAREGIVER ON RISK FOR HOSPITALIZATION/EMERGENCY ROOM VISITS, TEACH SIGNS AND SYMPTOMS THAT PUT PATIENT AT RISK, WHEN TO NOTIFY NURSE/PHYSICIAN OF COMPLICATIONS/DECLINE, AND WHEN TO CALL 911. PHYSICAL THERAPY TO OBSERVE WOUND/INCISION AND/OR INTACT DRESSING ON STERNUM AND REPORT EARLY SIGNS AND SYMPTOMS OF WOUND DETERIORATION, COMPLICATIONS, OR INFECTION TO RN CLINICAL HOUSE NURSE AND/OR PHYSICIAN.] Goal 2023-08-01 Patient Goal - T O GET BACK TO WORKING OUTSIDE Goal 2023-08-20 Patient Goal - T O GET BACK TO WORKING OUTSIDE Goal Provider Goal - Goal Provider Goal - Goal Provider Goal - PATIENT/CAREGIVER TO VERBALIZE, AND CONSISTENTLY DEMONSTRATE EFFECTIVE, SAFE MANAGEMENT OF MEDICATION INCLUDING KNOWLEDGE OF EFFECTIVENESS, POTENTIAL SIDE EFFECTS AND DRUG REACTIONS AND WHEN TO CONTACT THE APPROPRIATE CARE PROVIDER. PATIENT/CAREGIVER WILL BE ABLE TO VERBALIZE UNDERSTANDING OF MEDICATION REGIMEN AND ACCURATELY TAKE MEDICATIONS PRESCRIBED WITHOUT ADVERSE EFFECTS BY 09/13/2023 Goal Provider Goal - PATIENT/CAREGIVER ABLE TO IDENTIFY FALL RISK FACTORS AND IMPLEMENT STRATEGIES TO MINIMIZE FALL RISK. PATIENT/CAREGIVER WILL VERBALIZE/DEMONSTRATE AN ABILITY TO ADHERE TO FALL REDUCTION SELF MANAGEMENT AND LIFE-STYLE CHANGES AT DISCHARGE. PERSONAL GOAL(S) STATED BY PATIENT/CAREGIVER WILL BE MET BY 08/20/23 Goal Provider Goal - A PLAN OF CARE WILL BE ESTABLISHED THAT MEETS THE PATIENTS NEEDS. PATIENT WILL DEMONSTRATE OXYGEN SATURATION WITHIN NORMAL LIMITS OR PATIENTS OPTIMAL LEVEL ESTABLISHED BY THE PHYSICIAN THROUGHOUT CARE. CHANGES TO CO-MORBID CONDITIONS AND ANY NEW CONDITIONS WILL BE IDENTIFIED AND REPORTED TO THE PHYSICIAN. Goal Provider Goal - PATIENT / CAREGIVER WILL VERBALIZE / DEMONSTRATE UNDERSTANDING OF PAIN CONTROL MEASURES BY 08/20/23 Goal Provider Goal - PATIENT / CAREGIVER WILL VERBALIZE / DEMONSTRATE ABILITY TO PERFORM WOUND CARE. WOUND STATUS WILL IMPROVE EVIDENCED BY A DECREASE IN SIZE, DRAINAGE, ABSENCE OF INFECTION, AND DECREASED PAIN BY 08/20/23 Goal Provider Goal - PATIENT/CAREGIVER WILL VERBALIZE UNDERSTANDING OF SIGNS AND SYMPTOMS THAT PUT THE PATIENT AT RISK FOR HOSPITALIZATION /EMERGENCY ROOM VISITS, WHEN TO NOTIFY NURSE/PHYSICIAN OF COMPLICATIONS/DECLINE AND WHEN TO CALL 911. Goal Provider Goal - PATIENT / CAREGIVER WILL VERBALIZE/DEMONSTRATE UNDERSTANDING OF MEASURES TO MANAGE ALTERED CARDIOVASCULAR STATUS BY 08/20/23 Goal Provider Goal - PATIENT / CAREGIVER WILL VERBALIZE/DEMONSTRATE AN ABILITY TO ADHERE TO SELF-MANAGEMENT OF HTN TO MINIMIZE COMPLICATIONS AND AVOID HOSPITALIZATION BY END OF EPISODE. Goal Provider Goal - ADDITIONAL ORDERS WILL BE RECEIVED FROM ALTERNATE PHYSICIAN IN A TIMELY MANNER. PT STG: PATIENT WILL DEMONSTRATE IMPROVED TRANSFERS FROM SBA TO INDEP WITH NO AD WITHIN 2 WEEKS PT LTG: PATIENT WILL DEMONSTRATE IMPROVED AMBULATION FROM 125 FT SBA ON LEVEL SURFACES, AND CGA ON UNLEVEL SURFACES TO 300 FT INDEP ON LEVEL AND UNLEVEL SURFACES WITH FWW WITHIN 5 WEEKS. PT LTG: PATIENT WILL DEMONSTRATE REDUCED FALL RISK EVIDENCED BY TINETTI IMPROVING FROM 17 TO 24/28 WITHIN 5 WEEKS TO REDUCE RISK OF FALLS AROUND THE HOME. PT STG: PATIENT WILL BE INDEP WITH HEP WITHIN 2 WEEKS. PT LTG: PATIENT WILL DEMONSTRATE INCREASED STRENGTH OF BLE FROM 3/5 TO 4/5 WITHIN 5 WEEKS IN ORDER TO ACHIEVE NORMAL GAIT PATTERN AND GO UP AND DOWN STEPS TO ENTER AND EXIT THE HOME SAFELY AND INDEP. PT LTG: PATIENT WILL DEMONSTRATE IMPROVED ABILITY TO SAFELY NEGOTIATE STAIRS FROM CGA TO INDEP WITH HANDRAIL WITHIN 5 WEEKS TO ENTER AND EXIT THE HOME SAFELY AND INDEP PATIENT WILL MAINTAIN OXYGEN SATURATION WITHIN PHYSICIAN ORDERED PARAMETERS THROUGHOUT EPISODE OF CARE PT GOAL: PATIENT/CAREGIVER WILL VERBALIZE UNDERSTANDING OF PAIN MANAGEMENT BY END OF EPISODE. PATIENT/CAREGIVER WILL VERBALIZE UNDERSTANDING OF SIGNS AND SYMPTOMS THAT PUT THE PATIENT AT RISK FOR HOSPITALIZATION /EMERGENCY ROOM VISITS, WHEN TO NOTIFY NURSE/PHYSICIAN OF COMPLICATIONS/DECLINE AND WHEN TO CALL 911. THE PATIENT WILL NOT DEMONSTRATE ANY WOUND COMPLICATIONS DURING THE EPISODE OF CARE. Reason for Visit [facility] THE COMM[facility]ITY Encounters Start Date/Time End Date/Time Encounter Type Admission Type Attending [facility] Facility Care Department Encounter ID Discharge Date Discharge Status Discharge Condition Discharge Reason Percent Goals Met 2023-07-16 00:00:00 2023-08-20 00:00:00 Outpatient NEW ADMISSION [facility] [id number] 2023-08-20 00:00:00 DISCHARGE TO HOME OR SELF CARE [facility] HH OR [facility]- GOALS MET 96.88
--- OUTSIDE RECORDS SUMMARY | 2024-09-29 22:15 | XMS_ITS | Continuity of Care Document ---
Author Organization [facility] Address [address] [facility] [address] [place] [address] Phone Care Team Providers Care Customer Account Manager Name Role Phone Huseyin Robledo Unavailable Unavailable Procedures Procedure Date Eye Exam, New Patient Advance Directives Directive Yes / No Effective Date File Name No Information Encounters Encounter Description Practice Location Reason(s) For Visit Diagnoses Date Provider Providers Copied on Encounter [facility], [address] [facility] [address], [place], [place], [id number], [place] tel:[phone] [facility] No Information [address] [facility] [address], [place], [address], [place]. tel:[phone] Family History Family Member Type Diagnosis Age At Onset No Information Payers Payer name Insurance type Covered libertarian ID Authoriza tion(s) No Information Social History Type Description Quantity Date Captured Comments Sex Male Smoking Status No Information Chief Complaint And Reason For Visit No Information Reason For Referral Reason For Referral No Information History Of Present Illness Encounter Date Complaint History Of Prese nt Illness No Information Functional Status Date Functional Assessmen t No Information Instructions Date Instruction Additional Infor mation No Information Assessments Type Assessment Date No Information Patient Care Teams Name Effective Dates (start - stop) Status Members No Information
[2024-09-30] VITALS (20 sets, daily range): BP systolic 84–140; BP diastolic 58–90; PULSE 59–97; RESP 14–20; TEMP 36.6–37.2; O2SAT 94–99
--- OUTSIDE RECORDS SUMMARY | 2024-09-30 02:50 | XMS_ITS | Encounter Summary ---
Author Organization [facility] Healthcare Address [address] [place] [address] Care Team Providers Care Candy Rolling Machine Operator Name Role Phone Kali Reddy MD Unavailable [phone] Keaton Lynn MD Unavailable [phone] Gabby Li NP Primary Care Provider [phone] Reason for Referral * MRI/CAT/PET Scan (Routine) - Closed Specialty Diagnoses / Procedures Referred By Contac t Referred To Contact Radiology Diagnoses Aneurysm of ascending aorta without rupture (HCC) Procedures CTA Chest W WO Contrast CTA Chest W Contrast Kali Reddy MD [address], [place] [address] Phone: tel: fax: [facility] [address] [place] [address] Referral ID Status Reason Start Date Expiration Date Visits Re quested Visits Authorized [id number] Closed 06/06/2023 07/05/2024 1 1 Reason for Visit * MRI/CAT/PET Scan (Routine) - Closed Specialty Diagnoses / Procedures Referred By Contac t Referred To Contact Radiology Diagnoses Aneurysm of ascending aorta without rupture (HCC) Procedures CTA Chest W WO Contrast CTA Chest W Contrast Kali Reddy MD [address] [place] [address] Phone: tel: fax: [facility] [address] [place] [address] Referral ID Status Reason Start Date Expiration Date Visits Re quested Visits Authorized [id number] Closed 06/06/2023 07/05/2024 1 1 Encounter Details Date Type Department Care Team (Latest Contact Info) Description 05/26/2024 12:51 PM CDT - 05/26/2024 11:59 PM CDT Hospital Encounter [facility] - Imaging [address] [place] [address] Aneurysm of ascending aorta without [...] often do you attend chur ch or bahai services? More than 4 times [...] place to sleep or slept in a nursing home (including now)? No 07/30/2023 Personal Safety Answer Date Recorded Have you ever been in or are you currently in a harmful physical or emotional relationship or is someone making you feel afraid or unsafe? 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
--- OUTSIDE RECORDS SUMMARY | 2024-09-30 02:50 | XMS_ITS | Encounter Summary ---
Author Organization [facility] Healthcare Address [address] [place] [address] Care Team Providers Care Night Auditor Name Role Phone Kali Reddy MD Unavailable [phone] Keaton Lynn MD Unavailable Gabby Li NP Primary Care Provider [phone] Reason for Referral * MRI/CAT/PET Scan (Routine) - Authorized Specialty Diagnoses / Procedures Referred By Contac t Referred To Contact Radiology Diagnoses Aneurysm of ascending aorta without rupture (HCC) Procedures CTA Chest W Contrast Kali Reddy MD [address] [facility] [address] [place] [address] Phone: tel: fax: [place] [address] [place] [address] Referral ID Status Reason Start Date Expiration Date V isits Requested Visits Authorized [id number] Authorized 05/26/2024 06/25/2025 1 1 Encounter Details Date Type Department Care Team (Latest Contact Info) Description 05/26/2024 2:00 PM CDT Office Visit [facility] Medical Group Cardiology [address] [facility] [address] [place] [address] Kali Reddy MD [address] [place] [address] Hypercholesterolemia (Primary Dx); Aneurysm of [...] How often do you attend chur or episcopalian services? More than 4 times [...] place to sleep or slept in a retirement (including now)? No 07/30/2023 Personal Safety Answer Date Recorded Have you ever been in or are you currently in a harmful physical or emotional relationship or is someone making you feel afraid or unsafe? 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 [facility] [address] [facility] [address], [place] [address] Cardiology MD Yariel Das, MD Kali Reddy, MD Parish Monae, MD Kilo Sims, MD Johnny Maher, MD Osmin Barbosa, MD Nicolas Golden, MD Best Ramirez, MD Javon Lopez, MD Rory Dowling, MD Erin Monk, LAY OUT DRAFTER Elise Kirkpatrick, LAY OUT DRAFTER Kali Devries, PA Radha Hernandez, PA Patient [...] This note was dictated with voice-recognition software, obgyn specialist errors may be present. Omar Adam is [...] a lipid panel. The ASCVD Risk score (Charleston DK, et al., 2019) failed to calculate [...] (HCC) documented in this encounter Care Teams Night Auditor Relationship Specialty Start Date End Date Gabby Li NP [address] [address] PCP - General Family Medicine 04/30/24 Kali Reddy MD Consulting Physician Cardiology 05/19/19 Keaton Lynn MD [address] [facility] [address] [place] [address] Consulting Physician Cardiothoracic Surgery 06/07/23 documented as of this encounter
--- OUTSIDE RECORDS SUMMARY | 2024-09-30 02:50 | XMS_ITS | Encounter Summary ---
Author Organization [facility] Healthcare Address [address] [place] [address] Care Team Providers Care Stained Glass Glazier Helper Name Role Phone Kali Reddy MD Unavailable [phone] Keaton Lynn MD Unavailable [phone] Radha Lozada MD Primary Care Provider [phone] Reason for Visit * Reason Onset Date Comments Questions about WM FUs 11/05/2023 Encounter Details Date Type Department Care Team (Late st Contact Info) Description 11/05/2023 Telephone [facility] Medical Group Cardiology [address] [facility] [address] [place] [address] Kali Reddy MD [address] [facility] [address] [place] [address] Questions about WM FUs Social [...] week 07/30/2023 How often do you attend [facility] or rastafari services? More than 4 times per year 07/30/2023 Do you belong to any clubs o r organizations such as islam groups, unions, fraternal or athletic groups, or [...] in a prison (including now)? 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 Advisedcoordinator not available at this time, and we will reach out for clarification when able. Jackie voiced understanding. CE CRIME SCENE TECHNICIAN documented in this encounter Plan of Treatment Not on file documented as of this encounter Visit Diagnoses Not on filedocumented in this encounter Care Teams Stained Glass Glazier Helper Relationship Specialty Start Date End Date Radha Lozada MD [address] [place] [address] [place] [address] PCP - General Family Medicine 06/25/23 04/29/24 Kali Reddy MD Consulting Physician Cardiology 05/19/19 Keaton Lynn MD [address] [facility] [address] [place] [address] Consulting Physician Cardiothoracic Surgery 06/07/23 documented as of this encounter
--- OUTSIDE RECORDS SUMMARY | 2024-09-30 02:50 | XMS_ITS ---
Author Organization [facility] Address [address] [place] [address] Care Team Providers Care Dining Car Hop Name Role Phone Kali Reddy MD Unavailable [phone] Keaton Lynn MD Unavailable Gabby Li NP Primary Care Provider [phone] Active Problems Problem Noted Date Diagnosed Date [...] treatments are documented for this patient in [facility]. Treatments may have been administered in another system. Lifetime Dose Tracking * Chemical Lifetime Dose Automatic Entry Manual Entr y Air kerma at the reference point (Ka,r) 747 mGy 0 mGy 747 mGy
--- OUTSIDE RECORDS SUMMARY | 2024-09-30 02:50 | XMS_ITS | Encounter Summary ---
Author Organization [facility] Healthcare Address [address] [place] [address] Care Team Providers Care Lean Engineer Name Role Phone Kali Reddy MD Unavailable [phone] Keaton Lynn MD Unavailable [phone] Gabby Li NP Primary Care Provider [phone] Reason for Visit * Reason Onset Date Comments Test Results 05/27/2024 Encounter Details Date Type Department Care Team (Late st Contact Info) Description 05/27/2024 Telephone [facility] Medical Group Cardiology [address] [facility] [address] [place] [address] Kali Reddy MD [address] [facility] [address] [place] [address] Test Results Social History Tobacco [...] How often do you attend [facility] or zoroastrianism services? More than 4 times per year 07/30/2023 Do you belong to any clubs o r organizations such as anabaptist groups, unions, fraternal or athletic groups, or [...] place to sleep or slept in a correction (including now)? No 07/30/2023 Personal Safety Answer Date Recorded Have you ever been in or are you currently in a harmful physical or emotional relationship or is someone making you feel afraid or unsafe? 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
--- OUTSIDE RECORDS SUMMARY | 2024-09-30 02:50 | XMS_ITS | Continuity of Care Document ---
Author Organization [facility] Address [address] [facility] [address] [place] [address] Phone Care Team Providers Care Snorkelling Instructor Name Role Phone Huseyin Robledo Unavailable Unavailable Procedures Procedure Date Eye Exam, New Patient Advance Directives Directive Yes / No Effective Date File Name No Information Encounters Encounter Description Practice Location Reason(s) For Visit Diagnoses Date Provider Providers Copied on Encounter [facility], [address] [facility] [address], [place], [place], [id number], [place] tel:[phone] [facility] No Information [address] [facility] [address], [place], [address], [place]. tel:[phone] Family History Family Member Type Diagnosis Age At Onset No Information Payers Payer name Insurance type Covered alliance party ID Authoriza tion(s) No Information Social History [...]
--- OUTSIDE RECORDS SUMMARY | 2024-09-30 02:50 | XMS_ITS | Encounter Summary ---
Author Organization [facility] Address [address] [place] [address] Care Team Providers Care Out Patient Therapist Name Role Phone Kali Reddy MD Unavailable Keaton Lynn MD Unavailable [phone] Radha Lozada MD Primary Care Provider [phone] Encounter Details Date Type Department Care Team (Late st Contact Info) Description 12/04/2023 9:37 AM COMMERCIAL ENERGY RATER Anesthesia Event [facility] [address] [place] [address] Tereso Leger MD [address] [place] [address] Anesthesia Record Procedure Summary Procedure Name Responsible [...] with LDA Utility) 07/11/23 1900 by Carlita eMier RN 09/16/24 1213 by Discharge Provider, Automatic [...] often do you attend chur ch or yarsanism services? More than 4 times per year 07/30/2023 Do you belong to any clubs o r organizations such as muslim groups, unions, fraternal or athletic groups, or [...] on file Legal Sex Male 12:03 PM COMMERCIAL ENERGY RATER Gender Identity Not on file Sexual Orientation Not on file Occupation Industry Job Start Date Job End Date Retired Not on file Not on file Not on file documented as of this encounter OR Notes * Anesthesia Postprocedure Evaluation - Ev Enriquez CRNA - 12/04/2023 10:01 AM CST Patient: Omar Adam Procedure Summary Date: 12/04/23 Room / Location: [facility] Anesthesia Start: 936 Anesthesia Stop: 100 Procedure: TRANSESOPHAGEAL ECHO (KELLEY) W DOPPLER/CF Diagnosis: Atrial fibrillation, new onset (CMS/HCC) (HCC) Scheduled Providers: Tereso Leger MD Responsible Provider: Tereso Leger MD Anesthesia Type: general/TIVA ASA Status: 3 Anesthesia Type: general/TIVA Last vitals BP 127/88 Pulse 69 Temp 36.7 ??C (98 ??F) (Oral) Resp 15 SpO2 95% Anesthesia Post Evaluation 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 Patient participation: complete - patient participated Level of consciousness: arouses retail commission sales associate and follows simple commands Pain score: 0 Pain management: adequate Airway patency: adequate Cardiovascular status: acceptable Respiratory status: acceptable Hydration status: acceptable Pt is: normothermic Nausea/Vomiting status: none No notable events documented. ERCIAL ENERGY RATER * Anesthesia Preprocedure Evaluation - Tereso Leger [...] Medication protocol when under care of a RELAY TESTER HELPER Planned anesthesia: General/TIVA Induction: Induction: intravenous. Postoperative Plan: No plan for postoperative opioid use. No postoperative mechanical ventilation intended. Patient's planned disposition post procedure is Outpatient. Informed Consent: Discussed plan with RELAY TESTER HELPER. Anesthesia plan and risks discussed with patient. [...] and agree to proceed. All questions answered. ERCIAL ENERGY RATER documented in this encounter Plan of Treatment [...] Ventricular ArrhythmiasIndications:Ventricular Arrhythmias Given 12/04/2023 9:45 AM COMMERCIAL ENERGY RATER 5 mL propofoL (DIPRIVAN) 10 mg/mL IV intravenous, As needed, Starting on Sun12/04/23 at 0945, Anesthesia Intra-op Bolus 12/04/2023 9:51 AM COMMERCIAL ENERGY RATER 50 mg New Bag 12/04/2023 9:45 AM COMMERCIAL ENERGY RATER 100 mg sodium chloride 0.9% infusion intravenous, Continuous PRN, Starting on Sun12/04/23 at 0940, Anesthesia Intra-op New Bag 12/04/2023 9:40 AM COMMERCIAL ENERGY RATER documented in this encounter Care Teams Out Patient Therapist Relationship Specialty Start Date End Date Radha Lozada MD [address] [place] [address] [place] [address] PCP - General Family Medicine 06/25/23 04/29/24 Kali Reddy MD Consulting Physician Cardiology 05/19/19 Keaton Lynn MD [address] [facility] [address] [place] [address] Consulting Physician Cardiothoracic Surgery 06/07/23 documented as of this encounter
--- OUTSIDE RECORDS SUMMARY | 2024-09-30 02:50 | XMS_ITS | Clinical Summary ---
Author Organization [facility] Address [address] [place] [address] Care Team Providers Care House Shorer Name Role Phone Kali Reddy MD Unavailable [phone] Keaton Lynn MD Unavailable [phone] Gabby Li NP Primary Care Provider [phone] Allergies No known active allergies Medications acetaminophen [...] 08/18/2024 Telephone Cardiovascular and Thoracic Surgery [address] [address] Sample, Yudelka Boogie from Last [...] often do you attend chur ch or presybeterian services? 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 Gender Identity Not on file Sexual Orientation Not on file Occupation Industry Job Start Date Job End Date Retired Not on file Not on file Not on file Obstetrics History Last Filed Vital Signs Vital Sign Reading Time Taken Comments Blood Pressure 138/82 05/26/2024 2:33 PM CDT Pulse 61 05/26/2024 2:33 PM CDT Temperature 36.7 ??C (98 ??F) 12/04/2023 9:00 AM SPANISH LINGUIST Respiratory Rate 17 12/04/2023 10:2 7 AM SPANISH LINGUIST Oxygen Saturation 97% 04/30/2024 9:43 AM CDT [...] 03/15, 10/11/2013 Medical Devices Implanted Type Area Drapery Cutter Device Identifier Shelf Expiration Date Model / Serial / Lot [employer] Adriana Watchman Flx Procedure Device Wmflxperproc - [id number] - [id number] Implanted:Qty: 1 on 10/23/2023 by Nicolas Golden MD at [facility] Left Atrial Appendage Occluder Left: Atrial Appendage [employer] Adriana 06/09/2026 WMFLXPERPROC / [id number] / [id number] Molina Vascular Device Clsr Perclose Prostyle Sut-Mediatd Closure-Repair Sys 71871-45 - [id number] - [id number] Implanted:Qty: 1 on 10/23/2023 by Nicolas Golden MD at [facility] Vascular Closure Device Right: Femoral Vein [employer] 07/14/2025 22656-22 / [id number] / [id number] [employer] Vascular Device Clsr Perclose Prostyle Sut-Mediatd Closure-Repair Sys 99704-75 - [id number] - [id number] Implanted:Qty: 1 on 10/23/2023 by Nicolas Golden MD at [facility] Vascular Closure Device Right: Femoral Vein [employer] 07/14/2025 55167-44 / [id number] / [id number] Cryolife Inc Graft Biological Cardiovascular Photofix 6x8cm Acellular Dermis Pfp 6x8 - [id number] Implanted:Qty: 1 on 07/10/2023 by Keaton Lynn MD at [facility] N/A: Heart [employer]ife Inc 03/04/2025 PFP 6X8 / / [id number] Keene Lifesciences Conduit Cardiovascular Aortic Valved Konect Resilia 25mm Bovine [id number] - [id number] - [id number] Implanted:Qty: 1 on 07/10/2023 by Keaton Lynn MD at [facility] N/A: Aorta [employer] 06/07/2024 [id number] / [id number] / Abyrx Hemasorb Os-Spa Spatula Wax 2gm Bone Sterile Os-201 - [id number] Implanted:Qty: 1 on 07/10/2023 by Keaton Lynn MD at [facility] N/A: Aorta Abyrx 02/11/2026 OS-201 / / [id number] Arthrex Inc Device Closure Fibertape Sternal Cerclage Blunt Needle Ar-7289 - [id number] Implanted:Qty: 1 on 07/10/2023 by Keaton Lynn MD at [facility] N/A: Sternum Arthrex Inc 05/14/2028 AR-7289 / / [id number] Synthes 3mm 16mm Self Drill Lock Sternal Screw Bone Titanium Nonsterile 04.501.116.01 - [id number] Implanted:Qty: 16 on 07/10/2023 by Keaton Lynn MD at [facility] N/A: Sternum Synthes I 04.501.116.01 / / Synthes 8 Hole Locking Manubrium Sternum H Large Plate Bone Titanium 460.028 - [id number] Implanted:Qty: 2 on 07/10/2023 by Keaton Lynn MD at [facility] N/A: Sternum Synthes I 460.028 / / Explanted Type Area Drapery Cutter Device Identifier Shelf Expiration Date Model / Serial / Lot Bard Peripheral Vascular Bard .25x.25in Maddock Thk1.65mm Square Pledget Cardiovascular Ptfe [id number] - [id number] Explanted:Qty: 1 on 07/10/2023 at [facility] N/A: Heart Bard Peripheral Vascular [id number] 07/12/2026 [id number] / / [id number] Insurance MEDICARE [employer] [facility] MEDICARE Member Subscriber Plan / Payer (Ef fective 2010-Present) Name:Omar Adam Member ID:[id number] Relation to Subscriber:Self Name:Omar Adam Subscriber ID:[id number] Payer ID:[id number] Group ID:Not on file Type:MEDICARE TRADITIONAL Address: [place] [phone] MEDICARE Member Subscriber Plan / Payer (Ef fective 2010-) Name:Omar Adam Member ID:[id number] Relation to Subscriber:Self Name:Omar Adam Subscriber ID:[id number] Payer ID:[id number] Group ID:Not on file Type:MEDICARE TRADITIONAL Address: [place] [address] [place] [address] [facility] [place] [address] MEDICARE Advance Directives For more information, please contact: [phone] * Full Code (Latest Code Status on File) Date Activated Date Inactivated Comments 07/27/2023 1:29 PM 07/31/2023 8:00 PM * Full Code Date Activated Date Inactivated Comments 07/10/2023 4:23 PM 07/14/2023 9:31 PM Care Teams House Shorer Relationship Specialty Start Date End Date Gabby Li NP [address] [address] PCP - General Family Medicine 04/30/24 Kali Reddy MD Consulting Physician Cardiology 05/19/19 Keaton Lynn MD [address] [facility] [address] [place] [address] Consulting Physician Cardiothoracic Surgery 06/07/23
--- OUTSIDE RECORDS SUMMARY | 2024-09-30 02:50 | XMS_ITS | Encounter Summary ---
Author Organization [facility] Healthcare Address [address] [place] [address] Care Team Providers Care Phys Assistant Name Role Phone Kali Reddy MD Unavailable Keaton Lynn MD Unavailable [phone] Radha Lozada MD Primary Care Provider [phone] Reason for Visit * Reason Comments Atrial Fibrillation Encounter Details Date Type Department Care Team (Late st Contact Info) Description 12/04/2023 11:30 AM KICKING MACHINE OPERATOR Office Visit [facility] Medical Group Cardiology [address] [facility] [address] [place] [address] Kali Devries PA [address] [facility] [address] [place] [address] Paroxysmal atrial fibrillation (CMS/HCC) (HCC) [...] week 07/30/2023 How often do you attend [facility] or [facility] services? More than 4 times per year 07/30/2023 Do you belong to any clubs o r organizations such as baptist groups, unions, fraternal or athletic groups, or [...] place to sleep or slept in a care home (including now)? No 07/30/2023 Personal Safety Answer Date Recorded Have you ever been in or are you currently in a harmful physical or emotional relationship or is someone making you feel afraid or unsafe? Denies 12/04/2023 Sex and Gender Information Value Date Recorded Sex Assigned at Not on file Legal Sex Male 12:03 PM KICKING MACHINE OPERATOR Gender Identity Not on file Sexual Orientation Not on file Occupation Industry Job Start Date Job End Date Retired Not on file Not on file Not on file documented as of this encounter Last Filed Vital Signs Vital Sign Reading Time Taken Comments Blood Pressure 130/82 12/04/2023 11:05 AM KICKING MACHINE OPERATOR Pulse 61 12/04/2023 11:05 AM KICKING MACHINE OPERATOR Temperature - - Respiratory Rate - - Oxygen Saturation - - Inhaled Oxygen Concentration - - Weight 111.1 kg (245 lb) 12/04/2023 11:05 AM KICKING MACHINE OPERATOR Height 182.9 cm (6') 12/04/2023 11:05 AM KICKING MACHINE OPERATOR Body Mass Index 33.23 12/04/2023 11:05 AM KICKING MACHINE OPERATOR documented in this encounter Progress Notes * Kali Devries PA - 12/04/2023 11:30 AM CST Images from the original note were not included. [facility] Card[facility] [address] [address] Cardiology MD Kali Mckeon, MD Wellington Dugan, MD Parish Monae, MD Kilo Sims, MD Johnny Maher, MD Osmin Barbosa, MD Best Ramirez, MD Nicolas Golden, MD Javon Lopez, MD Rory Dowling, MD Kali Devries, CARLY Day, ALEX Monk, ALEX Smith, RETAIL SALES VITAMIN CONSULTANT Patient Name: Omar Adam Provider: Kali Devries [...] This note was dictated with voice-recognition software, railroad firer errors may be present. CARLY Potts Cosigned by Nicolas Golden MD at 12/04/2023 4:08 PM KICKING MACHINE OPERATOR ING MACHINE OPERATOR ING MACHINE OPERATOR documented in this encounter Plan of Treatment Not on file documented as of this encounter Visit Diagnoses Diagnosis Paroxysmal atrial fibrillation (CMS/HCC) (HCC)- Primary Atrial fibrillation documented in this encounter Care Teams Phys Assistant Relationship Specialty Start Date End Date Radha Lozada MD [address] [place] [address] [place] [address] PCP - General Family Medicine 06/25/23 04/29/24 Kali Reddy MD Consulting Physician Cardiology 05/19/19 Keaton Lynn MD [address] [facility] [address] [place] [address] Consulting Physician Cardiothoracic Surgery 06/07/23 documented as of this encounter
--- OUTSIDE RECORDS SUMMARY | 2024-09-30 02:50 | XMS_ITS | Referral Summary ---
Author Organization [facility] Address [address] [place] [address] Care Team Providers Care Manager News Name Role Phone Kali Reddy MD Unavailable Keaton Lynn MD Unavailable [phone] Gabby Li NP Primary Care Provider [phone] Encounters Date Type Department Care Team Description 08/18/2024 Telephone Cardiovascular and Thoracic Surgery [address] [facility] [address] [place] [address] Sample, Yudelka Boogie from Last [...] often do you attend chur ch or holiness services? 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 Gender Identity Not on file Sexual Orientation Not on file Occupation Industry Job Start Date Job End Date Retired Not on file Not on file Not on file Last Filed Vital Signs Vital Sign Reading Time Taken Comments Blood Pressure 138/82 05/26/2024 2:33 PM CDT Pulse 61 05/26/2024 2:33 PM CDT Temperature 36.7 ??C (98 ??F) 12/04/2023 9:00 AM OVERLAY OPERATOR Respiratory Rate 17 12/04/2023 10:2 7 AM OVERLAY OPERATOR Oxygen Saturation 97% 04/30/2024 9:43 AM CDT Inhaled Oxygen Concentration - - Weight 110.9 kg (244 lb 6.4 oz) 05/26/2024 2:33 PM CDT Height 182.9 cm (6') 04/30/2024 9:43 AM CDT Body Mass Index 33.15 04/30/2024 9:43 AM CDT Plan of Treatment Not on file Medical Devices Implanted Type Area Finishing Powder Press Operator Device Identifier Shelf Expiration Date Model / Serial / Lot [employer] Adriana Watchman Flx Procedure Device Wmflxperproc - [id number] - [id number] Implanted:Qty: 1 on 10/23/2023 by Nicolas Golden MD at [facility] Left Atrial Appendage Occluder Left: Atrial Appendage [employer] Adriana 06/09/2026 WMFLXPERPROC / [id number] / [id number] Molina Vascular Device Clsr Perclose Prostyle Sut-Mediatd Closure-Repair Sys 20597-87 - [id number] - [id number] Implanted:Qty: 1 on 10/23/2023 by Nicolas Golden MD at [facility] Vascular Closure Device Right: Femoral Vein [employer]ina V[employer] 07/14/2025 44233-39 / [id number] / [id number] Molina Vascular Device Clsr Perclose Prostyle Sut-Mediatd Closure-Repair Sys 57634-39 - [id number] - [id number] Implanted:Qty: 1 on 10/23/2023 by Nicolas Golden MD at [facility] Vascular Closure Device Right: Femoral Vein [employer]ina V[employer] 07/14/2025 83248-58 / [id number] / [id number] Cryolife Inc Graft Biological Cardiovascular Photofix 6x8cm Acellular Dermis Pfp 6x8 - [id number] Implanted:Qty: 1 on 07/10/2023 by Keaton Lynn MD at [facility] N/A: Heart Cryolife Inc 03/04/2025 PFP 6X8 / / [id number] Keene Lifesciences Conduit Cardiovascular Aortic Valved Konect Resilia 25mm Bovine [id number] - [id number] - [id number] Implanted:Qty: 1 on 07/10/2023 by Keaton Lynn MD at [facility] N/A: Aorta [employer] 06/07/2024 [id number] / [id number] / Abyrx Hemasorb Os-Spa Spatula Wax 2gm Bone Sterile Os-201 - [id number] Implanted:Qty: 1 on 07/10/2023 by Keaton Lynn MD at [facility] N/A: Aorta Abyrx 02/11/2026 OS-201 / / [id number] Arthrex Inc Device Closure Fibertape Sternal Cerclage Blunt Needle Ar-7289 - [id number] Implanted:Qty: 1 on 07/10/2023 by Keaton Lynn MD at [facility] N/A: Sternum Arthrex Inc 05/14/2028 AR-7289 / / [id number] Synthes 3mm 16mm Self Drill Lock Sternal Screw Bone Titanium Nonsterile 04.501.116.01 - [id number] Implanted:Qty: 16 on 07/10/2023 by Keaton Lynn MD at [facility] N/A: Sternum Synthes I 04.501.116.01 / / Synthes 8 Hole Locking Manubrium Sternum H Large Plate Bone Titanium 460.028 - [id number] Implanted:Qty: 2 on 07/10/2023 by Keaton Lynn MD at [facility] N/A: Sternum Synthes I 460.028 / / Explanted Type Area Finishing Powder Press Operator Device Identifier Shelf Expiration Date Model / Serial / Lot Bard Peripheral Vascular Bard .25x.25in Ogden Thk1.65mm Square Pledget Cardiovascular Ptfe [id number] - [id number] Explanted:Qty: 1 on 07/10/2023 at [facility] N/A: Heart Bard Peripheral Vascular [id number] 07/12/2026 [id number] / / [id number] Insurance MEDICARE [facility] [place] [address] [facility] MEDICARE MEDICARE [facility] MEDICARE Advance Directives For more information, please contact: [phone] * Full Code (Latest Code Status on File) Date Activated Date Inactivated Comments 07/27/2023 1:29 PM 07/31/2023 8:00 PM * Full Code Date Activated Date Inactivated Comments 07/10/2023 4:23 PM 07/14/2023 9:31 PM Care Teams Manager News Relationship Specialty Start Date End Date Gabby Li NP [address] [facility] [address] [place] [address] PCP - General Family Medicine 04/30/24 Kali Reddy MD Consulting Physician Cardiology 05/19/19 Keaton Lynn MD [address] [facility] [address] [place] [address] Consulting Physician Cardiothoracic Surgery 06/07/23
--- OUTSIDE RECORDS SUMMARY | 2024-09-30 02:50 | XMS_ITS | Encounter Summary ---
Author Organization [facility] Address [address] [place] [address] Phone Care Team Providers Care Junior Architect Name Role Phone Kali Reddy MD Unavailable [phone] Keaton Lynn MD Unavailable Radha Lozada MD Primary Care Provider [phone] Reason for Referral * MRI/CAT/PET Scan (Routine) - Authorized Specialty Diagnoses / Procedures Referred By Contac t Referred To Contact Radiology Diagnoses Vertebrobasilar dolichoectasia Procedures CTA Head Neck W WO Contrast Josse Brooks MD [address] [place] [address] Phone: tel: fax: [facility] [address] [place] [address] Referral ID Status Reason Start Date Expiration Date V isits Requested Visits Authorized [id number] Authorized 11/01/2023 11/30/2024 1 1 SALES AND SERVICE REP Encounter Details Date Type Department Care Team (Late st Contact Info) Description 11/01/[address] 6th [place] [address] [place] [address] Josse Brooks MD [address] [place] [address] Social History Tobacco Use Types Packs/Day Years [...] How often do you attend chur or anglican services? 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 Brooks on 10/23/2024 at the [facility]. Patient will need to be NPO 2 hours prior to arrival for registration for CTA appt at 9:30 am ([facility] - 3rd floor registration desk), with CTA scheduled at 10:00am. Patient will then go to [address] at the [facility] to follow up with Dr. Brooks at 11:00 am (with arrival for registration at 10:45 am). Appointment reminder letters and map have been mailed to the patient's home. SALES AND SERVICE REP * Telephone Encounter - Musa Rolle CMA - 11/01/2023 11:09 AM OIL SALES AND SERVICE REP Per AV OV I have recommended imaging surveillance with repeat CTA in 1 year, office visit same day. Order in chart SALES AND SERVICE REP SALES AND SERVICE REP documented in this encounter Plan of Treatment [...] infarction documented in this encounter Care Teams Junior Architect Relationship Specialty Start Date End Date Radha Lozada MD [address] [place] [address] [place] [address] PCP - General Family Medicine 06/25/23 04/29/24 Kali Reddy MD Consulting Physician Cardiology 05/19/19 Keaton Lynn MD [address] [facility] [address] [place] [address] Consulting Physician Cardiothoracic Surgery 06/07/23 documented as of this encounter
--- OUTSIDE RECORDS SUMMARY | 2024-09-30 02:50 | XMS_ITS | Clinical Summary ---
Author Organization Unknown Care Team Providers Care Medical And Health Services Manager Name Role Phone MATTHEW PHILLIPS MD, YOLETTE Unavailable Unavailable LOU RN, SABINO Unavailable Unavailalla ROBERTSON LPN, ALANA Unavailable Unavailable MAYANK PT, ROBER Unavailable Unavailable JUNIE SUSTAINABILITY SPECIALIST, JOSE Unavailable Unavailabl e JUAN J OT, CAL JANSEN Unavailable LEYDA Briceño Unavailable Unavailable Payers Payer Name Policy Type Policy Number Effective Date Expira tion Date MEDICARE.[facility] [id number] Problems Condition Name Condition Details Condition Category [...] 830 00:00: 00 07-16 00:00 :00 No [id number] Per instruc tions Per instructio ns (route: oral) Med Classific ation: Cardiovas cular Therapy Agents acetaminoph en 325 mg tablet 2022-10 00:00: 00 Yes [id number] PAIN 2 tablet EVERY 6 HOURS 2 tablet EVERY 6 HOURS (route: oral) Med Classific ation: Analgesic , Anti-infl ammatory or Antipyret ic aspirin 81 mg tablet,tanvi yed release 2022-10 00:00: 00 Yes [id number] HEART 1 tablet DAILY 1 tablet DAILY (route: oral) Med Classific ation: Hematolog ical Agents atorvastati n 40 mg tablet 2022-10 00:00: 00 Yes [id number] CHOLESTEROL 1 tablet DAILY 1 tablet DAILY (route: oral) Med Classific ation: Cardiovas cular Therapy Agents furosemide 20 mg tablet 2022-10 00:00: 00 08-01 00:00 :00 No [id number] DIURETIC 1 tablet DAILY 1 tablet DAILY (route: oral) Med Classific ation: Cardiovas cular Therapy Agents hydrocodone 5 mg-acetamin ophen 325 mg tablet 2022-10 00:00: 00 08-01 00:00 :00 No [id number] PAIN 1 tablet EVERY 4 HOURS 1 tablet EVERY 4 HOURS (route: oral) Med Classific ation: Analgesic , Anti-infl ammatory or Antipyret ic metoprolol tartrate 25 mg tablet 2022-10 0 00:00: 00 07-17 23:59 :00 No [id number] BLOOD PRESSURE .5 tablet 2 TIMES DAILY .5 tablet 2 TIMES DAILY (route: oral) Med Classific ation: Cardiovas cular Therapy Agents potassium chloride ER 10 mEq capsule,ext ended release 2022-10 00:00: 00 08-01 23:59 :00 No [id number] SUPPLEMENT 1 capsule DAILY 1 capsule DAILY (route: oral) Med Classific ation: Electroly te Balance-N utritiona l Products metoprolol tartrate 25 mg tablet 2022-10 00:00: 00 Yes [id number] BLOOD PRESSURE 1 tablet 2 TIMES DAILY 1 tablet 2 TIMES DAILY (route: oral) Med Classific ation: Cardiovas cular Therapy Agents pantoprazol e 40 mg tablet,tanvi yed release 2022-10 00:00: 00 Yes [id number] STOMACH ACID 1 tablet 2 TIMES DAILY [...] [place]. RN TO OBSERVE AND ASSESS, PROJECT MANAGEMENT CONSULTANT TO OBSERVE FOR RISK FOR FALLS AND [...] [place]. RN TO OBSERVE AND ASSESS, PROJECT MANAGEMENT CONSULTANT TO OBSERVE FOR RISK FOR FALLS AND [...] TO AVOID HOSPITALIZATION.] Future Scheduled Test HOME [facility] MAY ACCEPT ORDERS FROM THE FOLLOWING [...] DETERIORATION, COMPLICATIONS, OR INFECTION TO RN CLINICAL RAIL CAR PAINTER/SANDBLASTER AND/OR PHYSICIAN. [code = HOME HEALTH AGENCY [...] DETERIORATION, COMPLICATIONS, OR INFECTION TO RN CLINICAL RAIL CAR PAINTER/SANDBLASTER AND/OR PHYSICIAN.] Goal 2023-08-20 Patient Goal - T O GET BACK TO WORKING OUTSIDE Goal 2023-08-01 Patient Goal - T O [...] End Date/Time Encounter Type Admission Type Attending [facility] Facility Care Department Encounter ID Discharge Date Discharge Status Discharge Condition Discharge Reason Percent Goals Met 2023-07-16 00:00:00 2023-08-20 00:00:00 Outpatient NEW ADMISSION SABINO [facility] ED [id number] 2023-08-20 00:00:00 DISCHARGE TO HOME OR SELF CARE INDEPENDEN T IN THE COMMUNITY HH OR PAL- GOALS MET 96.88
--- OUTSIDE RECORDS SUMMARY | 2024-09-30 02:50 | XMS_ITS | Encounter Summary ---
Author Organization [facility] Healthcare Address [address] [place] [address] Care Team Providers Care Ballet Soloist Name Role Phone Kali Reddy MD Unavailable [phone] Keaton Lynn MD Unavailable [phone] Gabby Li NP Primary Care Provider [phone] Encounter Details Date Type Department Care Team (Late st Contact Info) Description 08/18/2024 Telephone Cardiovascular and Thoracic Surgery [address] [facility] [address] [place] [address] Yudelka Rizzo Social History Tobacco [...] often do you attend chur ch or restorationism services? More than 4 times per year [...] place to sleep or slept in a long term (including now)? No 07/30/2023 Personal Safety Answer Date Recorded Have you ever been in or are you currently in a harmful physical or emotional relationship or is someone making you feel afraid or unsafe? 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 Gender Identity Not on file Sexual Orientation [...] date for the appointment to be rescheduled EMIC SUPPORT ASSISTANT documented in this encounter Plan of Treatment Not on file documented as of this encounter Visit Diagnoses Not on filedocumented in this encounter Care Teams Ballet Soloist Relationship Specialty Start Date End Date Gabby Li NP [address] [address] PCP - General Family Medicine 04/30/24 Kali Reddy MD Consulting Physician Cardiology 05/19/19 Keaton Lynn MD [address] [facility] [address] [place] [address] Consulting Physician Cardiothoracic Surgery 06/07/23 documented as of this encounter
--- OUTSIDE RECORDS SUMMARY | 2024-09-30 02:50 | XMS_ITS | Encounter Summary ---
Author Organization [facility] Healthcare Address [address] [place] [address] Care Team Providers Care Tandem Mill Roller Name Role Phone Kali Reddy MD Unavailable [phone] Keaton Lynn MD Unavailable Gabby Li NP Primary Care Provider [phone] Reason for Visit * Reason Comments watchman Encounter Details Date Type Department Care Team (Late st Contact Info) Description 04/30/2024 10:00 AM CDT Office Visit [facility] Medical Group Cardiology [address] [facility] [address] [place] [address] Radha Hernandez PA [address] [facility] [address] [place] [address] Presence of Watchman left atrial [...] any clubs o r organizations such as methodist groups, unions, fraternal or athletic groups, or [...] slept in a residential (including now)? No 07/30/2023 Personal Safety Answer Date Recorded Have you ever been in or are you currently in a harmful physical or emotional relationship or is someone making you feel afraid or unsafe? 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 [facility] [address] Cardiology Yariel Hills, MD Kali Reddy, MD Wellington Dugan, MD Parish Monae, MD Johnny Maher, MD Kilo Sims, MD Osmin Barbosa, MD Best Ramirez, MD Nicolas Golden, MD Javon Lopez, MD Rory Dowling, MD Erin Monk, CLOTH DYER Elise Day, CLOTH DYER Beth Smith, CLOTH DYER Kali Devries, PA CARLY Velazquez Patient Name: [...] LEFT ATRIAL APPENDAGE (ELROY) OCCLUSION FOLLOW-UP - [facility] DOCUMENTATION Please check ([x]) the appropriate box(es) [...] Value Date HGB 7.6 (L) 07/31/2023 Modified Posey Scale (mRS): N/A JOHN INDEX EVALUATION: Not [...] This note was dictated with voice-recognition software, strip polisher errors may be present. Cosigned by Nicolas [...] documented as of this encounter Care Teams Tandem Mill Roller Relationship Specialty Start Date End Date Gabby Li NP [address] [address] PCP - General Family Medicine 04/30/24 Kali Reddy MD Consulting Physician Cardiology 05/19/19 Keaton Lynn MD [address] [facility] [address] [place] [address] Consulting Physician Cardiothoracic Surgery 06/07/23 documented as of this encounter
--- OUTSIDE RECORDS SUMMARY | 2024-09-30 02:50 | XMS_ITS | Encounter Summary ---
Author Organization [facility] Healthcare Address [address] [place] [address] Care Team Providers Care Senior Manufacturing Engineer Name Role Phone Kali Reddy MD Unavailable [phone] Keaton Lynn MD Unavailable Gabby Li NP Primary Care Provider [phone] Encounter Details Date Type Department Care Team (Late st Contact Info) Description 05/27/2024 Telephone [facility] Medical Group Cardiology [address] [facility] [address], [place] [address] Kali Reddy MD [facility] [address] [place] [address] Social History Tobacco Use Types [...] week 07/30/2023 How often do you attend [facility] or mormonism services? 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
--- OUTSIDE RECORDS SUMMARY | 2024-09-30 02:50 | XMS_ITS | Encounter Summary ---
Author Organization [facility] Healthcare Address [address] [place] [address] Care Team Providers Care Hand Washer Name Role Phone Kali Reddy MD Unavailable [phone] Keaton Lynn MD Unavailable [phone] Radha Lozada MD Primary Care Provider [phone] Reason for Referral * Cardiology (Routine) - [...] WO DOPPLER/CF W CONTRAST Nicolas Golden MD [address] [place] [address] Phone: tel: fax: [facility] [address] [place] [address] Referral ID Status Reason Start Date Expiration Date Visits Re quested Visits Authorized [id number] Closed 08/03/2023 09/01/2024 1 1 OPHYSIOLOGIST Reason for Visit * Cardiology (Routine) - [...] W CONTRAST Nicolas Golden MD [address] [facility] [address] [place] [address] Phone: tel: fax: [place] [id number] [place] [address] Referral ID Status Reason Start Date Expiration Date Visits Re quested Visits Authorized [id number] Closed 08/03/2023 09/01/2024 1 1 Encounter Details Date Type Department Care Team (Latest Contact Info) Description 12/04/2023 8:17 AM NEUROPHYSIOLOGIST - 12/04/2023 11:59 PM NEUROPHYSIOLOGIST Hospital Encounter [facility] [address] [place] [address] Tereso Leger MD [address] [place], [place] [id number] Atrial fibrillation, new onset (CMS/HCC) (HCC) Discharge [...] week 07/30/2023 How often do you attend [facility] or tenriism services? 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 NEUROPHYSIOLOGIST Gender Identity Not on file Sexual Orientation Not on file Occupation Industry Job Start Date Job End Date Retired Not on file Not on file Not on file documented as of this encounter Last Filed Vital Signs Vital Sign Reading Time Taken Comments Blood Pressure 104/78 12/04/2023 10:27 AM NEUROPHYSIOLOGIST Pulse 62 12/04/2023 10:27 AM NEUROPHYSIOLOGIST Temperature 36.7 ??C (98 ??F) 12/04/2023 9:00 AM NEUROPHYSIOLOGIST Respiratory Rate 17 12/04/2023 10:27 AM NEUROPHYSIOLOGIST Oxygen Saturation 97% 12/04/2023 10:27 AM NEUROPHYSIOLOGIST Inhaled Oxygen Concentration - - Weight 110 kg (242 lb 9.6 oz) 12/04/2023 9:00 AM NEUROPHYSIOLOGIST Height 182.9 cm (6') 12/04/2023 9:00 AM NEUROPHYSIOLOGIST Body Mass Index 32.9 12/04/2023 9:00 AM NEUROPHYSIOLOGIST documented in this encounter Discharge Instructions * Discharge Instructions* Rox Shah, MAHIN - 12/04/2023 10:20 AM NEUROPHYSIOLOGIST [facility] [address] [place], [place] [address] [facility] Discharge Instructions---Transesophageal Echocardiography (KELLEY) MEDICATIONS [] Home [...] Patient/Family Signature: Staff Signature/Title: Date and Time: OPHYSIOLOGIST documented in this encounter Medications at Time [...] DOPPLER/CF WO CONTRAST Routine 12/04/2023 12:11 PM NEUROPHYSIOLOGIST Atrial fibrillation, new onset (CMS/HCC) (HCC) documented in this encounter Results * TRANSESOPHAGEAL ECHO (KELLEY) W DOPPLER/CF WO CONTRAST (12/04/2023 12:11 PM NEUROPHYSIOLOGIST) BSA 2.37 m2 CONS SCIMAGE Anatomical Region Laterality Modality Echocardiography 12/04/2023 9:42 AM NEUROPHYSIOLOGIST Narrative 12/04/2023 10:23 AM NEUROPHYSIOLOGIST [place] [id number] [place] [address] TRANSESOPHAGEAL ECHOCARDIOGRAM Patient Name: OMAR ADAM L [...] Signed By: Kali Reddy MD 2023-12-04 10:22:45 NEUROPHYSIOLOGIST CC: ??Nicolas Golden MD Procedure Note Kali Reddy MD - 12/04/2023 [facility] [address] [place] [address] TRANSESOPHAGEAL ECHOCARDIOGRAM Patient Name: OMAR ADAM L [...] Signed By: Kali Reddy MD 2023-12-04 10:22:45 NEUROPHYSIOLOGIST CC: Nicolas Golden MD Nicolas Golden MD CV ECHO PROCEDURES Final Result documented in this encounter Visit Diagnoses Diagnosis Atrial fibrillation, new onset (CMS/HCC) (HCC) documented in this encounter Orders Discharge Count Last Ordered Date First Orde red Date DISCHARGE PATIENT 1 12/04/2023 documented in this encounter Care Teams Hand Washer Relationship Specialty Start Date End Date Radha Lozada MD [facility] [place] [address] PCP - General Family Medicine 06/25/23 04/29/24 Kali Reddy MD Consulting Physician Cardiology 05/19/19 Keaton Lynn MD [address] [facility] [address] [place] [address] Consulting Physician Cardiothoracic Surgery 06/07/23 documented as of this encounter
--- OUTSIDE RECORDS SUMMARY | 2024-09-30 02:51 | XMS_ITS | Encounter Summary ---
Author Organization [facility] Healthcare Address [address] [place] [address] Care Team Providers Care Filler Feeder Name Role Phone Kali Reddy MD Unavailable Keaton Lynn MD Unavailable [phone] Radha Lozada MD Primary Care Provider [phone] Reason for Visit * Auth/Cert (Routine) Specialty Diagnoses / Procedures Referred By Contac t Referred To Contact Diagnoses Atrial fibrillation, new onset (CMS/HCC) (HCC) Atrial fibrillation, new onset (CMS/HCC) (HCC) [I48.91] Procedures NJ PERQ CLSR TCAT L ATR APNDGE W/ENDOCARDIAL IMPLNT NJ ECHO JOVI GUID TCAT ICAR/VESSEL STRUCTURAL INTVN PERC ELROY CLOSE W/IMPLANT [id number] Referral ID Status Reason Start Date Expiration Date Visits Re quested Visits Authorized [id number] 1 1 Encounter Details Date Type Department Care Team (Latest Contact Info) Description 10/23/2023 7:51 AM ENVELOPE SEALER OPERATOR - 10/23/2023 3:36 PM ENVELOPE SEALER OPERATOR Hospital Encounter [facility] [address] [place] [address] Nicolas Smith MD [address] [facility] [address] [place] [address] Atrial fibrillation, new onset (CMS/HCC) [...] any clubs o r organizations such as hinduism groups, unions, fraternal or athletic groups, or [...] file Legal Sex Male 12:03 PM ENVELOPE SEALER OPERATOR Gender Identity Not on file Sexual Orientation Not on file documented as of this encounter Last Filed Vital Signs Vital Sign Reading Time Taken Comments Blood Pressure 131/79 10/23/2023 3:29 PM ENVELOPE SEALER OPERATOR Pulse 84 10/23/2023 3:29 PM ENVELOPE SEALER OPERATOR Temperature 36.2 ??C (97.2 ??F) 10/23/2023 1 1:52 AM ENVELOPE SEALER OPERATOR Respiratory Rate 18 10/23/2023 2:30 PM ENVELOPE SEALER OPERATOR Oxygen Saturation 96% 10/23/2023 3:29 PM ENVELOPE SEALER OPERATOR Inhaled Oxygen Concentration - - Weight 108.3 kg (238 lb 12.1 oz) 10/23/2023 9:58 AM ENVELOPE SEALER OPERATOR Height 182.9 cm (6') 10/23/2023 9:58 AM ENVELOPE SEALER OPERATOR Body Mass Index 32.38 10/23/2023 9:58 AM ENVELOPE SEALER OPERATOR documented in this encounter Discharge Instructions * Discharge Instructions* Melina Bai RN - 10/23/2023 2:55 PM ENVELOPE SEALER OPERATOR Cardiac Laboratory [facility] [place], [place] [address] [facility] Discharge Instructions---Angiogram MEDICATIONS [] Do not take [...] for any reason without discussing with your superintendent transportation first. - These medications may make you [...] home diet [] Special diet Instructed by Bricklayer Tender ACTIVITY You have been given medications which [...] Signature/Title: Date and Time: Cardiac Laboratory [address] [place], [place] [address] [facility] Discharge Instructions---Angiogram MEDICATIONS [] Do not take [...] for any reason without discussing with your superintendent transportation first. - These medications may make you [...] home diet [] Special diet Instructed by Bricklayer Tender ACTIVITY You have been given medications which [...] Patient/Family Signature: Staff Signature/Title: Date and Time: LOPE SEALER OPERATOR documented in this encounter Medications at Time [...] Smith MD - 10/23/2023 9:13 AM [facility] [address] [address] Cardiology MD Kali Mckeon MD Robert Kopitsky, MD David Sewall, MD Adam Shpigel, MD Johnny Maher, MD Osmin Barbosa, MD Best Ramirez, MD Nicolas Smith, MD Everardo Briscoe, DO Javon Lopez, MD Rory Dowling, MD Clyde Stovall, SAMPLE DISTRIBUTOR Erin Monk, SAMPLE DISTRIBUTOR Beth Smith, SAMPLE DISTRIBUTOR Patient Name: Omar Nolasco Provider: MEAGHAN Stout [...] This note was dictated with voice-recognition software, molder sweep errors may be present. Erin Monk NP LOPE SEALER OPERATOR documented in this encounter Miscellaneous Notes * Post-Procedure Note - Nicolas Smith MD - 10/23/2023 11:39 AM CST Images from the original note were not included. [facility] Cardiology [address] [place] [address], [address] [place] [address], [id number] Watchman Left Atrial Appendage Occluder Placement Procedure Report 78 year old male with atrial fibrillation with elevated CHADSVASC score and elevated bleeding risk referred for Watchman device. Attending physicians: Nicolas Smith MD Access:8F RFV ->14F for device placement Catheter:Pigtail Injection:Left atrial appendage Closure:Perclose Anticoagulation:[id number] Heparin Air Kerma:115 mGy Fluoro time:5.2 min [...] teams. Nicolas Smith MD 10/23/23 11:39 AM LOPE SEALER OPERATOR documented in this encounter Plan of Treatment Not on file documented as of this encounter Procedures Procedure Name Priority Date/Time Associated Diagnosis Comments JOVI GUIDANCE DURING CARDIAC STRUCTURAL INTVN [id number] Routine 10/23/2023 12:07 PM ENVELOPE SEALER OPERATOR Atrial fibrillation, new onset (CMS/HCC) (HCC) PERC ELROY CLOSURE W/IMPLANT (WATCHMAN) [id number] Routine 10/23/2023 11:43 AM ENVELOPE SEALER OPERATOR Atrial fibrillation, new onset (CMS/HCC) (HCC) POCT ACTIVATED CLOTTING TIME, LOW RANGE Routine 10/23/2023 11:22 AM ENVELOPE SEALER OPERATOR ECG 12-LEAD STAT 10/23/2023 9:47 AM ENVELOPE SEALER OPERATOR Atrial fibrillation, new onset (CMS/HCC) (HCC) TYPE AND SCREEN STAT 10/23/2023 9:44 AM ENVELOPE SEALER OPERATOR Atrial fibrillation, new onset (CMS/HCC) (HCC) documented in this encounter Results * JOVI Guidance During Cardiac [place] [id number] (10/23/2023 12:07 PM ENVELOPE SEALER OPERATOR) Anatomical Region Laterality Modality Echocardiography 10/23/2023 11:0 4 AM ENVELOPE SEALER OPERATOR Narrative 10/23/2023 12:16 PM ENVELOPE SEALER OPERATOR [facility] [address] [place] [address] TRANSESOPHAGEAL ECHOCARDIOGRAM Patient Name: OMAR NOLASCO : [...] end of the case. Predominant flow is [id number]. Mitral Valve: Grossly normal appearing mitral valve. [...] end of the case. Predominant flow is [id number]. 4. There is no aortic regurgitation. No [...] Signed By: Kali Reddy MD 2023-10-23 12:15:29 ENVELOPE SEALER OPERATOR CC: ??Nicolas Smith MD Procedure Note Kali Reddy MD - 10/23/2023 [facility] [address] [place] [address] TRANSESOPHAGEAL ECHOCARDIOGRAM Patient Name: OMAR NOLASCO : [...] the end of the case.Predominant flow is [id number]. Mitral Valve: Grossly normal appearing mitral valve. [...] the end of the case.Predominant flow is [id number]-eb-[id number]. 4. There is no aortic regurgitation. No [...] Signed By: Kali Reddy MD 2023-10-23 12:15:29 ENVELOPE SEALER OPERATOR CC: Nicolas Smith MD us Nicolas Smith MD CV ECHO PROCEDURES Final Result * PERC ELROY CLOSURE W/IMPLANT (WATCHMAN) [id number] (10/23/2023 11:43 AM ENVELOPE SEALER OPERATOR) Anatomical Region Laterality Modality X-Ray Angiograph y Narrative 10/23/2023 11:48 AM ENVELOPE SEALER OPERATOR Images from the original result were not included. [facility] Cardiology ?? [address] [place] [address], [address] [place] [address] ?? [place], [place], [address] ?? Watchman Left Atrial Appendage Occluder Placement Procedure Report 78 year old male with atrial fibrillation with elevated CHADSVASC score and elevated bleeding risk referred for Watchman device. Attending physicians: ??Nicolas Smith MD Access:8F RFV ->14F for device placement Catheter:Pigtail Injection:Left atrial appendage Closure:Perclose Anticoagulation:45794Bkvig Heparin Air Kerma:115 mGy Fluoro time:5.2 min [...] clotting time, low range (10/23/2023 11:22 AM ENVELOPE SEALER OPERATOR) ACT 373(H) 123 - 168 sec [facility] Blood 10/23/2023 11:2 2 AM ENVELOPE SEALER OPERATOR 10/23/2023 11:22 AM ENVELOPE SEALER OPERATOR us Nicolas Smith MD LAB POCT ORDERABLES - DEVICE Fin al Result Performing Organization Address [facility] de Phone Number [facility] [address] [place] [address] * ECG 12 lead (10/23/2023 9:47 AM ENVELOPE SEALER OPERATOR) 10/23/2023 9:47 AM ENVELOPE SEALER OPERATOR Narrative [facility] - 10/23/2023 2:13 PM ENVELOPE SEALER OPERATOR Vent Rate: 63 bpm RR Interval: 943 msec NJ Interval: 161 msec QRS Duration: 108 msec QT Interval: 426 msec QTC Interval: 434 msec P-R-T [place]: 26 - -54 - 79 degrees IMPRESSION: SINUS RHYTHM WITH OCCASIONAL SUPRAVENTRICULAR PREMATURE COMPLEXES LEFT ANTERIOR FASCICULAR BLOCK ??[QRS AXIS <= -45, QR IN I, RS IN II] NONSPECIFIC T-WAVE ABNORMALITY ABNORMAL ECG Electronically Signed By: Osmin Barbosa MD us Nicolas Smith MD ECG ORDERABLES Final Result Performing Organization Address [facility] Phone Number [facility] Replise [facility] * Type and screen (10/23/2023 9:44 AM ENVELOPE SEALER OPERATOR) [place], indirect Negative ABO Rh O Positive [facility] Blood 10/23/2023 9:44 AM ENVELOPE SEALER OPERATOR 10/23/2023 10:08 AM ENVELOPE SEALER OPERATOR Narrative [facility] - 10/23/2023 11:10 AM ENVELOPE SEALER OPERATOR Has the patient had Daratumumab or Isatuximab in the past 6 months?->Unknown us Nicolas Smith MD LAB BLOOD BANK TEST ORDERABLES F inal Result Performing Organization Address [facility] Co de Phone Number [facility] [address] [place] [address] documented in this encounter Visit Diagnoses Diagnosis [...] onset (CMS/HCC) (HCC) Restarted 10/23/2023 11:57 AM ENVELOPE SEALER OPERATOR New Bag 10/23/2023 10:49 AM ENVELOPE SEALER OPERATOR 50 mL/hr documented in this encounter Active and Recently Administered Medications Times are shown in ENVELOPE SEALER OPERATOR. Continuous Medication Order 2023 10/22/2023 10/23/2023 sodium [...] 10/23/2023 documented in this encounter Care Teams Filler Feeder Relationship Specialty Start Date End Date Radha Lozada MD [address] [place] [address] PCP - General Family Medicine 06/25/23 04/29/24 Kali Reddy MD Consulting Physician Cardiology 05/19/19 Keaton Lynn MD [address] [facility] [address] [place] [address] Consulting Physician Cardiothoracic Surgery 06/07/23 documented as of this encounter
--- OUTSIDE RECORDS SUMMARY | 2024-09-30 02:51 | XMS_ITS | Encounter Summary ---
Author Organization [facility] Healthcare Address [address] [place] [address] Care Team Providers Care Senior Stock Plan Administrator Name Role Phone Kali Reddy MD Unavailable Keaton Lynn MD Unavailable [phone] Radha Lozada MD Primary Care Provider [phone] Reason for Visit * Reason Comments Valve Disorder Encounter Details Date Type Department Care Team (Late st Contact Info) Description 08/16/2023 10:30 AM CDT Office Visit [facility] Medical Group Cardiology [address] [facility] [address] [place] [address] Erin Cobian, ALEX [address] [facility] [address] [place] [address] Atrial fibrillation, new onset (CMS/HCC) [...] often do you attend chur ch or synagogue services? More than 4 times per year [...] a care home (including now)? No 07/30/2023 Sex and Gender Information Value Date Recorded Sex Assigned at Not on file Legal Sex Male 12:03 PM PEELED POTATO INSPECTOR Gender Identity Not on file Sexual [...] this encounter Progress Notes * Erin Monk, MICROCHIP SPECIALIST - 08/16/2023 10:30 AM CDT [facility] Cardiology [address] [address] Cardiology Yariel [place], MD Kali Reddy, MD Wellington Dugan, MD Parish Monae, MD Kilo Sims, MD Johnny Maher, MD Osmin Barbosa, MD Best Ramirez, MD Nicolas Golden, MD Everardo Briscoe, DO Javon Lopez, MD Rory Dowling, MD Clyde Stovall, MICROCHIP SPECIALIST Erin Monk, MICROCHIP SPECIALIST Beth Smith, MICROCHIP SPECIALIST Patient Name: Omar Adam Provider: MEAGHAN Stout [...] This note was dictated with voice-recognition software, handy man errors may be present. Erin Monk NP [...] anemia documented in this encounter Care Teams Senior Stock Plan Administrator Relationship Specialty Start Date End Date Radha Lozada MD [facility] [place] [address] PCP - General Family Medicine 06/25/23 04/29/24 Kali Reddy MD Consulting Physician Cardiology 05/19/19 Keaton Lynn MD [address] [facility] [address] [place] [address] Consulting Physician Cardiothoracic Surgery 06/07/23 documented as of this encounter
--- OUTSIDE RECORDS SUMMARY | 2024-09-30 02:51 | XMS_ITS | Encounter Summary ---
Author Organization [facility] Address [address] [place] [address] Phone Care Team Providers Care Mutuel Teller Name Role Phone Kali Reddy MD Unavailable [phone] Keaton Lynn MD Unavailable [phone] Radha Lozada MD Primary Care Provider [phone] Encounter Details Date Type Department Care Team (Latest Contact Info) Description 11/01/2023 9:15 AM MACHINE HEEL SEAT LASTER Office Visit [facility] Neurosurgery [address] [facility] 6th [place] [address] [place] [address] Josse Brooks MD [address] [place] [address] Vertebrobasilar dolichoectasia (Primary Dx) Social [...] often do you attend chur ch or faith services? More than 4 times per year 07/30/2023 Do you belong to any clubs o r organizations such as scientology groups, unions, fraternal or athletic groups, or [...] place to sleep or slept in a skilled nursing (including now)? No 07/30/2023 Personal Safety Answer Date Recorded Getting School Help Needed Denies 10/04 Sex and Gender Information Value Date Recorded Sex Assigned at Not on file Legal Sex Male 12:03 PM MACHINE HEEL SEAT LASTER Gender Identity Not on file Sexual Orientation Not on file Occupation Industry Job Start Date Job End Date Retired Not on file Not on file Not on file documented as of this encounter Progress Notes * Josse Brooks MD - 11/01/2023 9:15 AM CST Images from the original note were not included. Department of Neurological Surgery Josse Brooks M.D. [facility] Department of Neurological Surgery [address] [place] [address] [place], [place] [address] NEW CLINIC VISIT Patient Name: OMAR ADAM Medical Record Number (MRN): [id number] Date of (): 1945 Encounter Date: 11/01/2023 PRIMARY CARE PROVIDER: Radha Lozada MD REFERRING PROVIDER: No ref. provider found CHIEF COMPLAINT MCA dilation HISTORY OF THE PRESENT ILLNESS Omar Adam is a 78 y.o. 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 He had presented to [facility] in July 2023 after an episode [...] History: Diagnosis Date Anemia Arthritis Arthritis; Comments: [facility] 10/19/2015 - Atrial fibrillation (CMS/HCC) (HCC) Coronary artery disease HX OTHER MEDICAL ascending aortic aneurysm; Comments: [facility] 10/19/2015 - Hypertension Hypertension Sleep apnea [...] Brooks MD Cerebrovascular/Endovascular & Skull Base Tumor C Winforms DeveloperStrategic Buyer of Neurological Surgery, Radiology and Neurology [facility], 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
--- OUTSIDE RECORDS SUMMARY | 2024-09-30 02:51 | XMS_ITS | Encounter Summary ---
Author Organization [facility] Address [address] [place] [address] Phone Care Team Providers Care Endless Steamer Tender Name Role Phone Kali Reddy MD Unavailable [phone] Keaton Lynn MD Unavailable Radha Lozada MD Primary Care Provider [phone] Encounter Details Date Type Department Care Team (Late st Contact Info) Description 08/17/2023 Telephone [facility] Neurosurgery [address] [facility] 6th [place] [address] [place] [address] Josse Brooks MD [address] [place] [address] Social History Tobacco Use Types [...] week 07/30/2023 How often do you attend [facility] or holiness services? More than 4 [...] in a fpc (including now)? 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 Gender Identity Not on file Sexual Orientation Not on file documented as of this encounter Miscellaneous Notes * Telephone Encounter - Musa Rolle CMA - 08/17/2023 1:28 PM CDT Reached out to pt @ [phone] with time and date for a office [...] on filedocumented in this encounter Care Teams Endless Steamer Tender Relationship Specialty Start Date End Date Radha Lozada MD [address] [place] [address] [place] [address] PCP - General Family Medicine 06/25/23 04/29/24 Kali Reddy MD Consulting Physician Cardiology 05/19/19 Keaton Lynn MD [address] [facility] [address] [place] [address] Consulting Physician Cardiothoracic Surgery 06/07/23 documented as of this encounter
--- OUTSIDE RECORDS SUMMARY | 2024-09-30 02:51 | XMS_ITS | Encounter Summary ---
Author Organization [facility] Healthcare Address [address] [place] [address] Care Team Providers Care Soda Jerker Name Role Phone Kali Reddy MD Unavailable Keaton Lynn MD Unavailable [phone] Radha Lozada MD Primary Care Provider [phone] Reason for Visit * Auth/Cert (Routine) Specialty Diagnoses / Procedures Referred By Contac t Referred To Contact Diagnoses Atrial fibrillation, new onset (CMS/HCC) (HCC) Atrial fibrillation, new onset (CMS/HCC) (HCC) [I48.91] Procedures OK PERQ CLSR TCAT L ATR APNDGE W/ENDOCARDIAL IMPLNT OK ECHO KELLEY GUID TCAT ICAR/VESSEL STRUCTURAL INTVN PERC [place] CLOSE W/IMPLANT [id number] Referral ID Status Reason Start Date Expiration Date Visits Re quested Visits Authorized [id number] 1 1 Encounter Details Date Type Department Care Team (Late st Contact Info) Description 10/23/2023 10:49 AM PROGRESS CLERK Anesthesia Event [facility] [address] [place] [address] Brayden Denney MD [address] [facility] [place] [address] Danica Rooney CRNA [address] [place] [address] (work) Anesthesia Record Procedure Summary Procedure Name Responsible Anesthesiologist Anesthesia Start Time Anesthesia Stop Time PERC [place] CLOSE W/IMPLANT [id number] Brayden Denney MD 10/23/23 1049 10/23/23 1156 [...] Mid-line; Sternum; 09/16/24 (Retired LDA, Removed/Completed by [employer] with LDA Utility); 1213 (Retired LDA, Removed/Completed by [employer] with LDA Utility) 07/10/23 1243 by Korina Montez RN 09/16/24 1213 by Discharge Provider, Automatic RETIRED Surgical Site 07/11/23; 1900; Right; Groin; 09/16/24 (Retired LDA, Removed/Completed by [employer] with LDA Utility); 1213 (Retired LDA, Removed/Completed by [employer] with LDA Utility) 07/11/23 1900 by Carlita [...] week 07/30/2023 How often do you attend [facility] or yazidi services? 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 RESS CLERK * Anesthesia Procedure Notes - Danica Rooney CRNA - 10/23/2023 11:04 AM CSTAssociated Order(s): Airway Airway Patient location: OR Urgency: elective Indications for airway management: anesthesia Difficult airway: no Staff: Supervising provider: Brayden Denney MD Placed by: FURNACE COMBUSTION TESTER: Danica Rooney CRNA Emergent airway documentation: Risks [...] with: silk tape Number of attempts: 1 RESS CLERK * Anesthesia Preprocedure Evaluation - Brayden Denney [...] 5 PRBC Procedure(s): PERC [place] CLOSE W/IMPLANT [id number] Pre-Op Diagnosis Codes: * Atrial fibrillation, new [...] pressure. Electronically Signed By: Parish Monae MD, [facility] 2023-07-28 05:05:41 CDT Patient Active Problem List [...] History: Diagnosis Date Anemia Arthritis Arthritis; Comments: [facility] 10/19/2015 - Atrial fibrillation (CMS/HCC) (HCC) Coronary artery disease HX OTHER MEDICAL ascending aortic aneurysm; Comments: [facility] 10/19/2015 - Hypertension Hypertension Sleep apnea Sleep [...] Medication protocol when under care of a FURNACE COMBUSTION TESTER Planned anesthesia: General Team communication plan: oral ET tube Induction: Induction: intravenous. Postoperative Plan: No plan for postoperative opioid use. No postoperative mechanical ventilation intended. Patient's planned disposition post procedure is Floor. Informed Consent: Discussed plan with FURNACE COMBUSTION TESTER. Anesthesia plan and risks discussed with patient. Consent and Attending signature: I and/or my designee have discussed the anesthesia plan, benefits, possible alternatives, parental presence at time of induction (if indicated), and clinically relevant risks that may include dental injury, unintentional awareness, and/or other complications. The patient and/or parent/legal guardian understand, and agree to proceed. All questions answered. RESS CLERK RESS CLERK documented in this encounter Plan of Treatment Not on file documented as of this encounter Procedures Procedure Name Priority Date/Time Associated Diagnosis Comments OK AN PROCEDURE PLACEHOLDER Routine 10/23/2023 11:04 AM PROGRESS CLERK OK AN ELECTIVE ENDOTRACHEAL AIRWAY Routine 10/23/2023 11:04 AM PROGRESS CLERK documented in this encounter Results * OK AN ELECTIVE ENDOTRACHEAL AIRWAY, OK AN PROCEDURE PLACEHOLDER (10/23/2023 11:04 AM PROGRESS CLERK) Danica Hicks CRNA - 10/23/2023 11:04 AM PROGRESS CLERK Danica Rooney CRNA ? 10/23/2023 11:04 AM Airway Patient location: OR Urgency: elective Indications for airway management: anesthesia Difficult airway: no Staff: Supervising provider: Brayden Denney MD Placed by: FURNACE COMBUSTION TESTER: Danica Rooney CRNA Emergent airway documentation: Risks [...] 1103, Anesthesia Intra-op Given 10/23/2023 11:03 AM PROGRESS CLERK 2,000 mg dexAMETHasone (DECADRON) 4 mg/mL injection intravenous, Administer over 2 Minutes, As needed, Starting on Sun10/23/23 at 1102, Anesthesia Intra-op Given 10/23/2023 11:02 AM PROGRESS CLERK 4 mg fentaNYL (SUBLIMAZE) preservative free injection intravenous, As needed, Starting on Sun10/23/23 at 1053, Anesthesia Intra-op Given 10/23/2023 10:59 AM PROGRESS CLERK 25 mcg Given 10/23/2023 10:53 AM PROGRESS CLERK 25 mcg heparin 1,000 unit/mL injection intravenous, As needed, Starting on Sun10/23/23 at 1112, Anesthesia Intra-op New Bag 10/23/2023 11:12 AM PROGRESS CLERK 13,000 Units lidocaine (cardiac) (XYLOCAINE) preservative free injection intravenous, As needed, Starting on Sun10/23/23 at 1053, Anesthesia Intra-op, Indications: Ventricular ArrhythmiasIndications:Ventricular Arrhythmias Given 10/23/2023 10:53 AM PROGRESS CLERK 5 mL ondansetron (ZOFRAN) injection intravenous, Administer over 2 Minutes, As needed, Starting on Sun10/23/23 at 1134, Anesthesia Intra-op Given 10/23/2023 11:34 AM PROGRESS CLERK 4 mg phenylephrine (OLIVIA-SYNEPHRINE) 1 mg/10 mL (100 mcg/mL) in sodium chloride 0.9% (premix) intravenous, As needed, Starting on Sun10/23/23 at 1105, Anesthesia Intra-op Given 10/23/2023 11:17 AM PROGRESS CLERK 100 mcg Given 10/23/2023 11:07 AM PROGRESS CLERK 100 mcg Given 10/23/2023 11:05 AM PROGRESS CLERK 100 mcg phenylephrine (OLIVIA-SYNEPHRINE) 10 mg in sodium chloride 0.9% 100 mL solution intravenous, Continuous PRN, Starting on Sun10/23/23 at 1114, Anesthesia Intra-op Rate/Dose Change 10/23/2023 11:29 AM PROGRESS CLERK 0.4 mcg/kg/min 25.992 mL/hr New Bag 10/23/2023 11:14 AM PROGRESS CLERK 0.3 mcg/kg/min 19.494 m L/hr propofoL (DIPRIVAN) 10 mg/mL IV intravenous, As needed, Starting on Sun10/23/23 at 1054, Anesthesia Intra-op Bolus 10/23/2023 10:55 AM PROGRESS CLERK 50 mg New Bag 10/23/2023 10:54 AM PROGRESS CLERK 150 mg protamine injection intravenous, As needed, Starting on Sun10/23/23 at 1134, Anesthesia Intra-op, Indications: Heparin ToxicityIndications:Heparin Toxicity Given 10/23/2023 11:34 AM PROGRESS CLERK 50 mg rocuronium (ZEMURON) injection intravenous, As needed, Starting on Sun10/23/23 at 1054, Anesthesia Intra-op Given 10/23/2023 10:54 AM PROGRESS CLERK 50 mg sodium chloride 0.9% infusion 15 mL/hr, intravenous, Continuous, Starting on Sun10/23/23 at 1015, Pre-Procedure (CV)Indications:Atrial fibrillation, new onset (CMS/HCC) (HCC) Restarted 10/23/2023 11:57 AM PROGRESS CLERK New Bag 10/23/2023 10:49 AM PROGRESS CLERK 50 mL/hr sugammadex (BRIDION) 100 mg/mL intravenous solution intravenous, As needed, Starting on Sun10/23/23 at 1137, Anesthesia Intra-op Given 10/23/2023 11:37 AM PROGRESS CLERK 250 mg documented in this encounter Care Teams Soda Jerker Relationship Specialty Start Date End Date Radha Lozada MD [facility] [place] [address] PCP - General Family Medicine 06/25/23 04/29/24 Kali Reddy MD Consulting Physician Cardiology 05/19/19 Keaton Lynn MD [address] [facility] [address] [place] [address] Consulting Physician Cardiothoracic Surgery 06/07/23 documented as of this encounter
--- OUTSIDE RECORDS SUMMARY | 2024-09-30 02:51 | XMS_ITS | Encounter Summary ---
Author Organization [facility] Healthcare Address [address] [place] [address] Care Team Providers Care Change Release Manager Name Role Phone Kali Reddy MD Unavailable [phone] Keaton Lynn MD Unavailable [phone] Radha Lozada MD Primary Care Provider [phone] Encounter Details Date Type Department Care Team (Late st Contact Info) Description 10/12/2023 Orders Only [facility] Medical Group Cardiology [address] [facility] [address] [place] [address] Provider, MD Sandra [address] [place] [address] Social History Tobacco Use Types Packs/Day [...] often do you attend chur ch or rastafari services? More than 4 times per year 07/30/2023 Do you belong to any clubs o r organizations such as anglican groups, unions, fraternal or athletic groups, or [...] on file Legal Sex Male 12:[address] SUPERINTENDENT Gender Identity Not on file Sexual Orientation Not on file documented as of this encounter Plan of Treatment Not on file documented as of this encounter Procedures Procedure Name Priority Date/Time Associated Diagnosis Comments BASIC METABOLIC PANEL Routine 10/11/2023 8:[address] SUPERINTENDENT documented in this encounter Results * Basic metabolic panel (10/11/2023 8:[address] SUPERINTENDENT) Blood us Historical Provider LAB BLOOD ORDERABLES Harriet l Result documented in this encounter Visit Diagnoses Not on filedocumented in this encounter Care Teams Change Release Manager Relationship Specialty Start Date End Date Radha Lozada MD [address] [place] [address] [place] [address] PCP - General Family Medicine 06/25/23 04/29/24 Kali Reddy MD Consulting Physician Cardiology 05/19/19 Keaton Lynn MD [address] [place] [address] Consulting Physician Cardiothoracic Surgery 06/07/23 documented as of this encounter
--- OUTSIDE RECORDS SUMMARY | 2024-09-30 02:51 | XMS_ITS | Encounter Summary ---
Author Organization [facility] Healthcare Address [address] [place] [address] Care Team Providers Care Night Nurse Name Role Phone Kali Reddy MD Unavailable [phone] Keaton Lynn MD Unavailable [phone] Radha Lozada MD Primary Care Provider [phone] Encounter Details Date Type Department Care Team (Late st Contact Info) Description 09/14/2023 Telephone [facility] Case Management [address] [place] [address] Jass Tamez EP-C Social History [...] any clubs o r organizations such as rastafari groups, unions, fraternal or athletic groups, or [...] place to sleep or slept in a alf (including now)? 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 Patient denies any questions regarding medications at this time. Cardiac Rehab Facility: Asked if the [facility] facility has contacted them yet. Patient states that they have completed about a month of the program thus far. Is patient exercising? Patient's states he is recovering very well, going to rehab multiple times per week, is on thego but also abiding his restrictions. He stays active daily. Candy Catcher Follow-up Appointment: Patient states they had follow up appointment with Dr. Lynn on August 16. Readmission: Patient states they have not been readmitted to a hospital over the past 30 days. Final follow up call by [facility]. TRUCKER documented in this encounter Plan of Treatment Not on file documented as of this encounter Visit Diagnoses Not on filedocumented in this encounter Care Teams Night Nurse Relationship Specialty Start Date End Date Radha Lozada MD [facility] [place] [address] PCP - General Family Medicine 06/25/23 04/29/24 Kali Reddy MD Consulting Physician Cardiology 05/19/19 Keatno Lynn MD [address] [place] [address] Consulting Physician Cardiothoracic Surgery 06/07/23 documented as of this encounter
--- OUTSIDE RECORDS SUMMARY | 2024-09-30 02:51 | XMS_ITS | Encounter Summary ---
Author Organization [facility] Healthcare Address [address] [place] [address] Care Team Providers Care Advertising Display Rotator Name Role Phone Kali Reddy MD Unavailable [phone] Keaton Lynn MD Unavailable [phone] Radha Lozada MD Primary Care Provider [phone] Reason for Referral * Home Health (Routine) - Closed Specialty Diagnoses / Procedures Referred By Contac t Referred To Contact Home Health Services Diagnoses Atrial fibrillation with rapid ventricular response (CMS/HCC) (HCC) Jonn Willis MD [address] [place] [address] Phone: tel: fax: Unknown Place of Service fax: Referral ID Status Reason Start Date Expiration Date V isits Requested Visits Authorized [id number] Closed Specialty Services Required 07/31/2023 08/29/2024 1 1 [facility] Primary disciplines requested: Assisted, Physical Therapy Secondary disciplines requested: Occupational Therapy [...] Expiration Date Visits Re quested Visits Authorized [id number] 1 1 Encounter Details Date Type Department Care Team (Latest Contact Info) Description 07/27/2023 7:52 AM CDT - 07/31/2023 4:00 PM CDT Hospital Encounter [facility] [address] [place] [address] Lew Garcia MD [address] [place] [address] Nighat Angeles MD [address] [place] [address] Ebenezer Rosa MD [address] [place] [address] [place] [address] Mandi Simpson MD [address] [place] [address] Jonn Willis MD [facility] [address] [facility] [place] [address] Pedro Luis Brantley DO [address] [place] [address] Atrial fibrillation with rapid ventricular response (CMS/HCC) [...] How often do you attend chur or faith services? More than 4 times [...] slept in a assisted (including now)? 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 Gender Identity Not on file Sexual [...] Patient Age - 77 yrs Patient - [id number] [facility] - [id number] Document Creation Date: 07/31/2023 Admitting Provider, : Pedro Luis Brantley DO Discharge Provider, : Jonn Willis MD Primary Care Physician at Discharge: Radha Lozada MD [phone] Admission Date: 07/27/2023 Discharge Date/time: 07/31/2023 Admission Location: [facility] Hospital LOS - LOS: 4 days DETAILS [...] Your Medications These medications were sent to [id number] - [place], [place] - [address], [place] [address] 40 mg EC tablet Time [...] Center 08/16/2023 9:45 AM Keaton Lynn MD [facility] [id number] PSA 05/21/2024 9:15 AM [facility] CT-5 [facility] CT [facility] Main 05/21/2024 10:30 AM Kali Reddy MD [facility] CAR 200 Specialty Contact Information for Follow-ups [facility] Home Care Services Specialty: Home Health and Hospice [address] [facility] [address] Next Steps: Follow up Questions: Service Line: Home Health Primary disciplines requested: Assisted Physical Therapy Secondary disciplines requested: Occupational Therapy [...] schedule an appointment with the following provider(s): [facility] Home Care Services [address] [facility] [address] Radha Lozada MD [address] [place] [address] [place] [facility] [address] Call for follow up with primary care provider in one week Kali Reddy MD [address] [place] [address] [facility] [address] Expedite follow up for watchman evaluation Keaton Lynn MD [address] [place] [address] [facility] [address] keep appointment as scheduled for 08/16 [facility] [address] [facility] [address] ANCILLARY INFORMATION Other Procedures & Diagnostic Tests: [...] (TTE) Complete W Doppler/CF Result Date: 07/28/2023 [place] [address] [place] [address] ECHOCARDIOGRAM Patient Name: JUDI ADAM L : 1945 Study Date: 07/27/2023 3:42:15 PM Gender: M Tech: Location: [id number] Ref.Provider: ERIN MONK Height(Cm): 183 BSA: 2.35 [...] 15 [ 2 - 9 ] mmHg [id number] 3.58 [ 2.30 - 3.90 ] cm [...] pressure. Electronically Signed By: Parish Monae MD, [facility] 2023-07-28 05:05:41 CDT CC: CC: CTA [...] Rate: 122 bpm RR Interval: 489 msec OH Interval: 0 msec QRS Duration: 110 msec QT Interval: 371 msec QTC Interval: 444 msec P-R-T [place]: 0 - -37 - 71 degrees IMPRESSION: ATRIAL FIBRILLATION WITH RAPID VENTRICULAR RESPONSE LEFT AXIS DEVIATION NONSPECIFIC ST \T\ T-WAVE ABNORMALITY ABNORMAL ECG Electronically Signed By: Javon Lopez MD [facility] Recent Labs: Recent Labs Lab Units 07/31/2332107/30/233 [...] mg/dL 0.97 0.92 0.84 0.80 -- 0.85 [id number] mL/min/1.73 m2 80 86 90 91 -- [...] Photofix 6x8cm Acellular Dermis Pfp 6x8 - [id number] - Implanted Heart Inventory item: [employer] Graft Biological Cardiovascular Photofix 6x8cm Acellular Dermis PFP 6X8 Model/Cat number: [id number] 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 Tool Programmer: [employer] Lot number: [id number] As of 07/10/2023 Status: Implanted Malik [employer] Conduit Cardiovascular Aortic Valved Konect Resilia 25mm Bovine [id number] - [id number] - [id number] - Implanted Aorta Inventory item: [employer] Conduit Cardiovascular Aortic Valved Konect Resilia 25mm Bovine [id number] Model/Cat number: [id number] Serial number: [id number] Numerical Tool Programmer: [employer] Size: 25 mm As of 07/10/2023 Status: Implanted Abyrx Hemasorb Os-Spa Spatula Wax 2gm Bone Sterile Os-201 - [id number] - Implanted Aorta Inventory item: ABYRX Hemasorb OS-SPA Spatula Wax 2gm Bone Sterile OS-201 Model/Cat number: [id number] Numerical Tool Programmer: Abyrx Lot number: [id number] As of 07/10/2023 Status: Implanted [employer] Inc Device Closure Fibertape Sternal Cerclage Blunt Needle Ar-7289 - [id number] - Implanted Sternum Inventory item: [employer] Device Closure Fibertape Sternal Cerclage Blunt Needle AR-7289 Model/Cat number: [id number] Numerical Tool Programmer: [employer] Lot number: [id number] As of 07/10/2023 Status: Implanted Synthes 3mm 16mm Self Drill Lock Sternal Screw Bone Titanium Nonsterile [phone] - [id number]- Implanted Sternum Inventory item: SYNTHES 3mm 16mm Self Drill Lock Sternal Screw Bone Titanium Nonsterile [phone] Model/Cat number: [phone] Numerical Tool Programmer: Synthes As of 07/10/2023 Status: Implanted Synthes 8 Hole Locking Manubrium Sternum H Large Plate Bone Titanium 460.028 - [id number] - Implanted Sternum Inventory item: SYNTHES 8 Hole Locking Manubrium Sternum H Large Plate Bone Titanium 460.028 Model/Cat number: [id number] Numerical Tool Programmer: Synthes As of 07/10/2023 Status: Implanted General Precautions (If Blank, None Found): Isolation Status: No active isolations Nutritional Status and in-house recommendations: Dietary Orders (From admission, onward) Start Ordered 07/29/231847 Adult Diet Special; Low Fat, Low Chol, Low Na Diet effective now Question Answer Comment ([facility]) Diet type Special Fat / Sodium [...] Service Line: Home Health Primary disciplines requested: Assisted Physical Therapy Secondary disciplines requested: Occupational Therapy [...] (Mak Class IIc). Clip was placed. 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 - Normal stomach. Biopsied. - Normal esophagus. [...] the original note were not included. [facility] Cardiology [address] [facility] [address], [place] [address] Cardiology Yariel Hills, MD Kali Reddy, MD Wellington Dugan, MD Parish Monae, MD Kilo Sims, MD Johnny Maher, MD Osmin Barbosa, MD Nicolas Golden, MD Best Ramirez, MD Javon Lopez, MD Rory Dowling, MD Beth Smith, POWER MARKETER Erin Monk, POWER MARKETER Elise Kirkpatrick, POWER MARKETER Cardiology Daily Progress Note Patient Name: Judi Adam Provider: Kali Reddy MD : 1945 Date of Service: 07/31/2023 This note was dictated with voice-recognition software, and gore cutter errors may be present. SUBJECTIVE: He has [...] (Mak Class IIc). Clip was placed. 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 - Normal stomach. Biopsied. - Normal esophagus. [...] (Mak Class IIc). Clip was placed. 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 - Normal stomach. Biopsied. - Normal esophagus. [...] Day, ALEX - 07/29/2023 7:05 AM CDT [facility] Cardiology [address] [address] Cardiology Yariel Hills, MD Kali Reddy, MD Wellington Dugan, MD Parish Monae, MD Johnny Maher, MD Osmin Barbosa, MD Best Ramirez, MD Nicolas Golden, MD Javon Lopez, MD Rory Dowling, MD Kilo Day, POWER MARKETER Clyde Stovall, POWER MARKETER Erin Monk, POWER MARKETER Beth Smith, POWER MARKETER Cardiology Daily Progress Note Provider: Elise Day [...] This note was dictated with voice-recognition software, gore cutter errors may be present. Elise Day NP [...] PM Result Value Ref Range Product code J0679Y82 Unit Number [id number] Product Blood Type OPOS Dispense Status ISSUED Product code Z4212C25 Unit Number [id number] Product Blood Type OPOS Dispense Status PRESUMED TRANSFUSED Hemoglobin and hematocrit Collection Time: 07/27/23 11:24 PM Result Value Ref Range Hgb 6.9 (L) 13.0 - 17.5 g/dL Hct 22.2 (L) 38.9 - 50.3 % Prepare RBC: 1 Units Collection Time: 07/28/23 2:05 AM Result Value Ref Range Product code H4482E22 Unit Number [id number] Product Blood Type OPOS Dispense Status ISSUED [...] Day NP - 07/28/2023 7:04 AM CDT [facility] Cardiology [facility] [address], [place] [address] Cardiology Yariel Hills, MD Kali Reddy, MD Wellington Dugan, MD Parish Monae, MD Johnny Maher, MD Osmin Barbosa, MD Best Ramirez, MD Nicolas Golden, MD Javon Lopez, MD Rory Dowling, MD Kilo Day, POWER MARKETER Clyde Stovall, POWER MARKETER Erin Lacho, POWER MARKETER Beth Sarah, POWER MARKETER Cardiology Daily Progress Note Provider: Elise Day NP Patient Name: Judi Adam : 1945 Date of Service: 07/28/2023 CHIEF COMPLAINT: Dizziness SUBJECTIVE: - Patient denies chest pain, but still has some shortness of breath with exertion. - He reports having black tarry stools. He is scheduled for EGD today. - Telemetry shows sinus rhythm/tachycardia with heart rates in the 90- [id number]. MEDICATIONS [MAR Hold] atorvastatin, 40 mg, oral, [...] This note was dictated with voice-recognition software, gore cutter errors may be present. Elise Day NP [...] Mateusz Brantley DO Contact info: Week - [phone]; After hours: [phone] Referring doctor: Nighat Angeles MD PCP: Radha [...] Medical History: Diagnosis Date Arthritis Arthritis; Comments: [facility] 10/19/2015 - HX OTHER MEDICAL ascending aortic aneurysm; Comments: [facility] 10/19/2015 - Hypertension Hypertension Sleep apnea [...] in the cervical spine. Electronically signed by: Eivn Fowler MD ASSESSMENT/PLAN: 1. UGIB/severe anemia: consider [...] Patient reports that he was discharged from [facility] on 07/14/2023 after undergoing aortic root replacement. [...] was notified. He was brought to the [facility] Emergency Department further evaluation. In the emergency [...] Medical History: Diagnosis Date Arthritis Arthritis; Comments: [facility] 10/19/2015 - HX OTHER MEDICAL ascending aortic aneurysm; Comments: [facility] 10/19/2015 - Hypertension Hypertension Sleep apnea [...] consulted, reviewed note from earlier today Repeat cna hha on telemetry Check transthoracic echocardiogram Continue home [...] 07/28/2023 8:27 AM Admit Type: Inpatient Room: [facility] Date of : 1945 Instrument Name: [...] one hemostatic clip was successfully placed. 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 There was no bleeding during, or at the end, of the procedure. The entire examined stomach was normal. Biopsies were taken with a cold forceps for Helicobacter pylori testing using CLOtest. The esophagus was normal. Impression: - Normal second portion of the duodenum. - Non-bleeding duodenal ulcer with a flat pigmented spot (Mak Class IIc). Clip was placed. 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 - Normal stomach. Biopsied. - Normal esophagus. [...] PM CDTAssociated Order(s): IP CONSULT TO NEUROSURGERY [facility] Consult Note CHIEF COMPLAINT Lightheadedness HISTORY [...] of this pleasant man. Chaim Moon PA-C [facility] Please call neurosurgery PA Chaim Moon at [phone] with any questions/concerns. Cosigned by Javon Calles MD PhD at 07/30/2023 3:14 PM CDT * Parish Harrell PA - 07/27/2023 3:01 PM CDTAssociated Order(s): IP CONSULT TO GASTROENTEROLOGY [facility] Consult: Mateusz Brantley DO Contact info: - [phone]; After hours: [phone] Referring doctor: Nighat Angeles MD PCP: Radha [...] Medical History: Diagnosis Date Arthritis Arthritis; Comments: [facility] 10/19/2015 - HX OTHER MEDICAL ascending aortic aneurysm; Comments: [facility] 10/19/2015 - Hypertension Hypertension Sleep apnea [...] PM CDTAssociated Order(s): IP CONSULT TO CARDIOLOGY [facility] Cardiology [address] [address] Cardiology MD Kali Mckeon, MD Wellington Dugan, MD Parish Monae, MD Kilo Sims, MD Johnny Maher, MD Osmin Barbosa, MD Best Ramirez, MD Nicolas Golden, MD Everardo Briscoe, DO Javon Lopez, MD Rory Dowling, MD Clyde Stovall, POWER MARKETER Erin Monk, ALEX Smith, POWER MARKETER Cardiology Consult Patient Name: Judi Adam Provider: [...] dehiscence of surgical site. Patient follows with knitting machine operator automatic, Dr. Reddy. Echocardiogram on 06/21/2023 demonstrated normal [...] MEDICAL ascending aortic aneurysm; Comments: [facility] 10/19/2015 - Hypertension Hypertension Sleep apnea [...] AM Result Value Ref Range Product code B4347Z49 Unit Number [id number] Product Blood Type OPOS Dispense Status ISSUED Product code U4141D49 Unit Number [id number] Product Blood Type OPOS Dispense Status ISSUED [...] This note was dictated with voice-recognition software, gore cutter errors may be present. Erin Monk NP [...] Medical History: Diagnosis Date Arthritis Arthritis; Comments: [facility] 10/19/2015 - HX OTHER MEDICAL ascending aortic aneurysm; Comments: [facility] 10/19/2015 - Hypertension Hypertension Sleep apnea [...] Rebecca Peterson - 07/31/2023 3:31 PM CDT [facility] received a consult. Per LUIS Mcgee Patient will be using [facility]. [facility] consult closedand no services set up at this time. * Plan of Care - Carlyn Ruiz RN - 07/31/2023 3:12 PM CDT CM received updates from [facility] that they will accept Mr Adam back for [facility] at discharge. * Plan of Care - [...] - 07/31/2023 12:24 PM CDT CM received [facility] order and resent it to [facility] who [...] Service Line Home Health Primary disciplines requested: Assisted Primary disciplines requested: Physical Therapy Secondary disciplines [...] end of June. Discharged home with [facility] RN plus therapies wishes to continue them. Primary Source of Transportation: Does the patient need discharge transport arranged?: No (daughter or one of his grandchildren will come and pick him up) (07/30/231611) Health Insurance Coverage: Medicare and [facility] Prescription Coverage: [facility] Pharmacy: [id number] [address] [place] [address] Primary Care Provider: Radha Lozada MD Prior to Admission: Functional Status: Independent with ADLs Primary Caregiver: Self (Patient recently had an aortic anerysm repaired) Support System: Spouse/Significant Other Home Care Services: Yes ([facility]) Type of Home Care Services: Nurse visit, Home therapies Home care service name and phone number: [facility] Durable Medical Equipment: Home Modification Assessment (railes [...] a week How often do you attend spiritism or faith services?: More than 4 times per year Do you belong to any clubs or organizations such as spiritism groups, unions, fraternal [...] Screening Potential discharge needs include: Home Health: alf, Occupational therapy, Physical therapy (07/30/231611) Dialysis: No [...] Collaboration with patient, MD, direct care nurse, Bias Cutter Helper, and other members of the health care team to assure needed interventions completed. 2. Return patient to optimal level of self-care post discharge. 3. Terry Cloth Cutter Hand will follow for Discharge Planning - interventions [...] LAB TEST Add-On 07/27/2023 2:41 PM CDT [place] CRITICAL CARE ILL/INJURED PATIENT INIT 30-74 MIN [...] Results * eGFR (07/31/2023 3:22 AM CDT) [facility] eGFR 80 mL/min/1. 73 m2 Comment: Interpretive [...] ORDERABLES Final Re sult Performing Organization Address City/[facility] Co de Phone Number [facility] [address] [facility] [employer] [place], [place] [id number] * Magnesium (07/31/2023 3:22 AM CDT) Pathologist [facility] Magnesium 2.3 1.4 - 2.5 mg/dL Blood 07/31/2023 3:22 AM CDT 07/31/2023 4:09 AM CDT Jonn Willis MD LAB BLOOD ORDERABLES Final Re sult Performing Organization Address [facility] de Phone Number [facility] [address] [facility] [employer] [place], [place] [id number] * (ABNORMAL) Renal function panel (07/31/2023 3:22 AM CDT) Sodium 138 135 - 145 mmol/L Potassium, pl 3.6 3.3 - 4.9 mmol/L [facility] Chloride 105 97 - 110 mmol/L [facility] CO2 26 22 - 32 mmol/L [facility] Anion gap 7 2 - 15 mmol/L [facility] BUN 12 6 - 25 mg/dL [facility] Creatinine 0.97 0.80 - 1.30 mg/dL [facility] Glucose 97 70 - 199 mg/dL [facility] Comment: Interpretive Data Fasting glucose [...] 2022. Calcium 8.1(L) 8.5 - 10.3 mg/dL [facility] Phosphorus, pl 3.8 2.3 - 4.5 mg/dL [facility] Albumin 2.8(L) 3.5 - 5.0 g/dL [facility] Blood 07/31/2023 3:22 AM CDT 07/31/2023 4:09 AM CDT Jonn Willis MD LAB BLOOD ORDERABLES Final Re sult [facility] [address] [place] [address] * (ABNORMAL) CBC without differential (07/31/2023 3:22 AM CDT) WBC 4.4 3.8 - 9.9 K/cumm Hgb 7.6(L) 13.0 - 17.5 g/dL [facility] Comment: Interpretive Data A reference range for this assay has not been established for patients with an unknown legal sex. Please refer to the laboratory test catalog for established sex-specific reference intervals. Current interpretive data was last revised on 2023. Hct 24.6(L) 38.9 - 50.3 % [facility] Comment: Interpretive Data A reference range for this assay has not been established for patients with an unknown legal sex. Please refer to the laboratory test catalog for established sex-specific reference intervals. Current interpretive data was last revised on 2023. Plt 163 150 - 400 K/cumm [facility] MPV 9.1 9.1 - 12.[address] [facility] RBC 2.50(L) 4.30 - 5.80 M/cumm [facility] Comment: Interpretive Data A reference range for this assay has not been established for patients with an unknown legal sex. Please refer to the laboratory test catalog for established sex-specific reference intervals. Current interpretive data was last revised on 2023. MCV 98.4(H) 81.3 - 96.[address] [facility] MCH 30.4 27.1 - 33.[address] [facility] MCHC 30.9(L) 32.3 - 35.7 g/dL [facility] RDW CV 18.9(H) 11.1 - 14.9 % [facility] RDW SD 54.3(H) 35.7 - 48.[address] [facility] NRBC abs 0.02(H) 0.00 - 0.01 K/cumm [facility] Blood 07/31/2023 3:22 AM CDT 07/31/2023 4:08 AM CDT us Pedro Luis Brantley DO LAB BLOOD ORDERABLES Final Res ult [facility] [address] Department [place] [address] * eGFR (07/30/2023 3:53 AM CDT) eGFR [...] DO LAB BLOOD ORDERABLES Final Res ult [facility] [address] Department of Laboratories [place], [place] [id number] * (ABNORMAL) Basic metabolic panel (07/30/2023 3:53 AM CDT) Sodium 138 135 - 145 mmol/L Potassium, pl 3.5 3.3 - 4.9 mmol/L [facility] Chloride 104 97 - 110 mmol/L [facility] CO2 27 22 - 32 mmol/L [facility] Anion gap 7 2 - 15 mmol/L [facility] BUN 11 6 - 25 mg/dL [facility] Creatinine 0.92 0.80 - 1.30 mg/dL [facility] Glucose 93 70 - 199 mg/dL [facility] Comment: Interpretive Data Fasting glucose [...] 2022. Calcium 8.0(L) 8.5 - 10.3 mg/dL [facility] Blood 07/30/2023 3:53 AM CDT 07/30/2023 5:09 AM CDT us Pedro Luis Brantley DO LAB BLOOD ORDERABLES Final Res ult [facility] [address] Department [place] [address] * (ABNORMAL) CBC without differential (07/30/2023 3:53 AM CDT) [facility] WBC 4.9 3.8 - 9.9 K/cumm Hgb 7.4(L) 13.0 - 17.5 g/dL [facility] Comment: Interpretive Data A reference range for this assay has not been established for patients with an unknown legal sex. Please refer to the laboratory test catalog for established sex-specific reference intervals. Current interpretive data was last revised on 2023. Hct 23.4(L) 38.9 - 50.3 % [facility] Comment: Interpretive Data A reference range for this assay has not been established for patients with an unknown legal sex. Please refer to the laboratory test catalog for established sex-specific reference intervals. Current interpretive data was last revised on 2023. Plt 166 150 - 400 K/cumm [facility] MPV 9.0(L) 9.1 - 12.[address] [facility] RBC 2.36(L) 4.30 - 5.80 M/cumm [facility] Comment: Interpretive Data A reference range for this assay has not been established for patients with an unknown legal sex. Please refer to the laboratory test catalog for established sex-specific reference intervals. Current interpretive data was last revised on 2023. MCV 99.2(H) 81.3 - 96.[address] [facility] MCH 31.4 27.1 - 33.[address] [facility] MCHC 31.6(L) 32.3 - 35.7 g/dL [facility] RDW CV 19.1(H) 11.1 - 14.9 % [facility] RDW SD 53.0(H) 35.7 - 48.[address] [facility] NRBC abs 0.07(H) 0.00 - 0.01 K/cumm [facility] Blood 07/30/2023 3:53 AM CDT 07/30/2023 5:08 AM CDT Pedro Luis Brantley DO LAB BLOOD ORDERABLES Final Res ult Performing Organization Address [facility] [facility] Co de Phone Number [facility] [address] [place] [address] * (ABNORMAL) Hemoglobin and hematocrit (07/29/2023 11:44 AM CDT) Hgb 7.9(L) 13.0 - 17.5 g/dL Comment: Interpretive Data A reference range for this assay has not been established for patients with an unknown legal sex. Please refer to the laboratory test catalog for established sex-specific reference intervals. Current interpretive data was last revised on 2023. Hct 25.1(L) 38.9 - 50.3 % [facility] Comment: Interpretive Data A reference range for this assay has not been established for patients with an unknown legal sex. Please refer to the laboratory test catalog for established sex-specific reference intervals. Current interpretive data was last revised on 2023. Blood 07/29/2023 11:4 4 AM CDT 07/29/2023 12:06 PM CDT Result [facility] Mandi Simpson MD LAB BLOOD ORDERABLES Final Resul t Performing Organization Address [facility] Co de Phone Number [facility] [address] [place] [address] * POCT H. pylori (Clotest) (07/29/2023 8:50 AM CDT) Pathologist [facility] H Pylori, POC Negative Negative QC Negative conf by Urease Yes Lot Number [id number] Tissue 07/29/2023 8:50 AM CDT Pedro Luis [...] LAB BLOOD ORDERABLES Final Res ult [facility] [address] [place] [address] * (ABNORMAL) Basic metabolic panel (07/29/2023 2:57 AM CDT) Sodium 137 135 - 145 mmol/L Potassium, pl 3.5 3.3 - 4.9 mmol/L [facility] Chloride 106 97 - 110 mmol/L [facility] CO2 24 22 - 32 mmol/L [facility] Anion gap 7 2 - 15 mmol/L [facility] BUN 16 6 - 25 mg/dL [facility] Creatinine 0.84 0.80 - 1.30 mg/dL [facility] Glucose 92 70 - 199 mg/dL [facility] Comment: Interpretive Data Fasting glucose [...] 2022. Calcium 7.9(L) 8.5 - 10.3 mg/dL [facility] Blood 07/29/2023 2:57 AM CDT 07/29/2023 4:05 AM CDT us Pedro Luis Brantley DO LAB BLOOD ORDERABLES Final Res ult [facility] [address] Department [place] [address] * (ABNORMAL) CBC without differential (07/29/2023 2:57 AM CDT) [facility] WBC 6.2 3.8 - 9.9 K/cumm Hgb 7.1(L) 13.0 - 17.5 g/dL [facility] Comment: Interpretive Data A reference range for this assay has not been established for patients with an unknown legal sex. Please refer to the laboratory test catalog for established sex-specific reference intervals. Current interpretive data was last revised on 2023. Hct 22.5(L) 38.9 - 50.3 % [facility] Comment: Interpretive Data A reference range for this assay has not been established for patients with an unknown legal sex. Please refer to the laboratory test catalog for established sex-specific reference intervals. Current interpretive data was last revised on 2023. Plt 188 150 - 400 K/cumm [facility] MPV 8.8(L) 9.1 - 12.[address] [facility] RBC 2.34(L) 4.30 - 5.80 M/cumm [facility] Comment: Interpretive Data A reference range for this assay has not been established for patients with an unknown legal sex. Please refer to the laboratory test catalog for established sex-specific reference intervals. Current interpretive data was last revised on 2023. MCV 96.2 81.3 - 96.[address] [facility] MCH 30.3 27.1 - 33.[address] [facility] MCHC 31.6(L) 32.3 - 35.7 g/dL [facility] RDW CV 17.6(H) 11.1 - 14.9 % [facility] RDW SD 51.5(H) 35.7 - 48.[address] [facility] NRBC abs 0.13(H) 0.00 - 0.01 K/cumm [facility] Blood 07/29/2023 2:57 AM CDT 07/29/2023 4:05 AM CDT us Pedro Luis Brantley DO LAB BLOOD ORDERABLES Final Res ult [facility] [address] Department [place] [address] * (ABNORMAL) Hemoglobin and hematocrit (07/28/2023 6:38 PM CDT) [facility] Hgb 7.6(L) 13.0 - 17.5 g/dL Comment: Interpretive Data A reference range for this assay has not been established for patients with an unknown legal sex. Please refer to the laboratory test catalog for established sex-specific reference intervals. Current interpretive data was last revised on 2023. Hct 23.6(L) 38.9 - 50.3 % [facility] Comment: Interpretive Data A reference range for this assay has not been established for patients with an unknown legal sex. Please refer to the laboratory test catalog for established sex-specific reference intervals. Current interpretive data was last revised on 2023. Blood 07/28/2023 6:38 PM CDT 07/28/2023 6:55 PM CDT us Pedro Luis Brantley DO LAB BLOOD ORDERABLES Final Res ult [facility] [address] Department [place] [address] * CTA Head Neck W WO Contrast [...] 07/28/2023 8:27 AM Admit Type: Inpatient Room: [facility] Date of : 1945 Instrument Name: [...] one hemostatic clip was successfully placed. 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 There wasno bleeding during, or at the end, of the procedure. The entire examined stomach was normal. Biopsies were taken with acold forceps for Helicobacter pylori testing using CLOtest. The esophagus was normal. Impression: - Normal second portion of the duodenum. - Non-bleeding duodenal ulcer with a flat pigmented spot (Mak Class IIc). Clip was placed. 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 - Normal stomach. Biopsied. - Normal esophagus. [...] ORDERABLES F inal Result Performing Organization Address [facility]/ZIP Co de Phone Number [facility] [address] [place] [address] * (ABNORMAL) Basic metabolic panel (07/28/2023 6:29 AM CDT) Pathologist [facility] Sodium 138 135 - 145 mmol/L Potassium, pl 3.9 3.3 - 4.9 mmol/L [facility] Chloride 108 97 - 110 mmol/L [facility] CO2 20(L) 22 - 32 mmol/L [facility] Anion gap 10 2 - 15 mmol/L [facility] BUN 29(H) 6 - 25 mg/dL [facility] Creatinine 0.80 0.80 - 1.30 mg/dL [facility] Glucose 105 70 - 199 mg/dL [facility] Comment: Interpretive Data Fasting glucose [...] 2022. Calcium 8.4(L) 8.5 - 10.3 mg/dL [facility] Blood 07/28/2023 6:29 AM CDT 07/28/2023 6:56 AM CDT Pedor Luis Brantley DO LAB BLOOD ORDERABLES Final Res ult Performing Organization Address [facility]/ZIP Co de Phone Number [facility] [address] Department [place] [address] * (ABNORMAL) CBC without differential (07/28/2023 6:29 AM CDT) [facility] WBC 7.8 3.8 - 9.9 K/cumm Hgb 7.4(L) 13.0 - 17.5 g/dL [facility] Comment: Interpretive Data A reference range for this assay has not been established for patients with an unknown legal sex. Please refer to the laboratory test catalog for established sex-specific reference intervals. Current interpretive data was last revised on 2023. Hct 22.7(L) 38.9 - 50.3 % [facility] Comment: Interpretive Data A reference range for this assay has not been established for patients with an unknown legal sex. Please refer to the laboratory test catalog for established sex-specific reference intervals. Current interpretive data was last revised on 2023. Plt 210 150 - 400 K/cumm [facility] MPV 9.0(L) 9.1 - 12.[address] [facility] RBC 2.42(L) 4.30 - 5.80 M/cumm [facility] Comment: Interpretive Data A reference range for this assay has not been established for patients with an unknown legal sex. Please refer to the laboratory test catalog for established sex-specific reference intervals. Current interpretive data was last revised on 2023. MCV 93.8 81.3 - 96.[address] [facility] Comment:MCV delta due to pos sible patient therapy. MCH 30.6 27.1 - 33.[address] [facility] MCHC 32.6 32.3 - 35.7 g/dL [facility] RDW CV 15.4(H) 11.1 - 14.9 % [facility] RDW SD 49.2(H) 35.7 - 48.[address] [facility] NRBC abs 0.17(H) 0.00 - 0.01 K/cumm [facility] Blood 07/28/2023 6:29 AM CDT 07/28/2023 6:56 AM CDT us Pedro Luis Brantley DO LAB BLOOD ORDERABLES Final Res ult [facility] [address] Department [place] [address] * Magnesium (07/28/2023 6:29 AM CDT) Pathologist [facility] Magnesium 2.1 1.4 - 2.5 mg/dL Blood 07/28/2023 6:29 AM CDT 07/28/2023 6:56 AM CDT Ebenezer Rosa MD LAB BLOOD ORDERABLES Fin al Result Performing Organization Address [facility] Co de Phone Number [facility] [address] [facility] [place] [address] * Phosphorus (07/28/2023 6:29 AM CDT) Pathologist [facility] Phosphorus, pl 2.5 2.3 - 4.5 mg/dL Blood 07/28/2023 6:29 AM CDT 07/28/2023 6:56 AM CDT Ebenezer Rosa MD LAB BLOOD ORDERABLES Fin al Result Performing Organization Address [facility] Co de Phone Number [facility] [address] [facility] [employer] [place] [phone] * Transfuse RBC (07/28/2023 4:26 AM CDT) Blood Avril Douglas MD BLOOD TRANSFUSION ORDERABLES Final Result Performing Organization Address City/[facility]/ZIP Co de Phone Number [facility] [address] [facility] [place] [address] * Transfuse RBC: 1 Units (07/28/2023 4:26 AM CDT) Blood Avril Douglas MD BLOOD TRANSFUSION ORDERABLES Final Result * Prepare RBC: 1 Units (07/28/2023 2:05 AM CDT) Pathologist [facility] Product code [id number] Unit Number [id number] [facility] Product Blood Type OPOS [facility] Dispense Status PRESUMED TRANSFUSED [facility] Blood 07/28/2023 2:[address] [facility] - 07/28/2023 10:15 PM CDT Are special requirements needed? (All products are leukoreduced and CMV- safe)- >No Date required:-[id number] LRRBC # of Lvqvr-9-Voyty Reasons:-Hgb <7 g/dL} Avril Douglas MD BLOOD BANK PRODUCT ORDERABLES Final Result Performing Organization Address [facility]/ZIP Co de Phone Number [facility] [address] [facility] [employer] [place], [place] [id number] * Transfuse RBC (07/28/2023 12:32 AM CDT) Blood Pedro Luis Brantley DO BLOOD TRANSFUSION ORDERABLES F inal Result Performing Organization Address [facility]/ZIP Co de Phone Number [facility] [address] [facility] [place] [employer] [place] [address] * Transfuse RBC: 2 Units (07/28/2023 12:32 AM CDT) Blood Pedro Luis Brantley DO BLOOD TRANSFUSION ORDERABLES E dited Result - Final * (ABNORMAL) Hemoglobin and hematocrit (07/27/2023 11:24 PM CDT) [facility] Hgb 6.9(L) 13.0 - 17.5 g/dL Comment: Interpretive Data A reference range for this assay has not been established for patients with an unknown legal sex. Please refer to the laboratory test catalog for established sex-specific reference intervals. Current interpretive data was last revised on 2023. Hct 22.2(L) 38.9 - 50.3 % [facility] Blood 07/27/2023 11:2 4 PM CDT 07/28/2023 12:37 AM CDT Pedro Luis Brantley DO LAB BLOOD ORDERABLES Final Res ult Performing Organization Address [facility] Co de Phone Number [facility] [address] Department [employer] [place], [place] [phone] * Transfuse RBC (07/27/2023 7:49 PM CDT) Blood Pedro Luis Brantley DO BLOOD TRANSFUSION ORDERABLES F inal Result Performing Organization Address [facility] Co de Phone Number [facility] [address] [facility] [employer] [place], [place] [id number] * Prepare RBC: 2 Units (07/27/2023 5:21 PM CDT) Product code [id number] [facility] Unit Number [id number] [facility] Product Blood Type OPOS [facility] Dispense Status PRESUMED TRANSFUSED [facility] Product code [id number] Unit Number [id number] [facility] Product Blood Type OPOS [facility] Dispense Status PRESUMED TRANSFUSED [facility] Blood 07/27/2023 5:[address] [facility] - 07/28/2023 10:15 PM CDT Are special requirements needed? (All products are leukoreduced and CMV- safe)- >No Date required:-[id number] LRRBC # of Rjgvn-3-Stzyf Reasons:-Hgb <7 g/dL} Ebenezer Rosa MD BLOOD BANK PRODUCT ORDER EMELYN Final Result Performing Organization Address [facility] Co de Phone Number [facility] [address] [facility] [employer] [place], [place] [id number] * TRANSTHORACIC ECHO (TTE) COMPLETE W DOPPLER/CF W CONTRAST (07/27/2023 5:07 PM CDT) Anatomical Region Laterality Modality Ultrasound 07/27/2023 3:42 PM CDT Narrative 07/28/2023 5:05 AM CDT [facility] [address] [place] [address] ECHOCARDIOGRAM Patient Name: JUDI ADAM L : 6 Study Date: 07/27/2023 3:42:15 PM Gender: M Tech: Location: [id number] Ref.Provider: ERIN MONK Height(Cm): 183 BSA: 2.35 [...] pressure. Electronically Signed By: Parish Monae MD, [facility] 2023-07-28 05:05:41 CDT CC: CC: Procedure Note Parish Monae MD - 07/28/2023 [facility] [address] [place] [address] ECHOCARDIOGRAM Patient Name: JUDI ADAM LPatient ID: [id number] : [id number] Date: 07/27/2023 3:42:15 PM Gender: MAccession #: [id number] Tech: RLLocation: [id number] Ref.Provider: ERIN MONKHeight(Cm): 183 BSA: 2.35Weight(Kg): 108.9 [...] 20.0 - 100.0 ] ms MV Decel Gsib717.7 [ 104.0 - 258.0 ] ms MVA PHT9.3 [ 2.0 - 4.0 ] ms MV E/A Ratio1.5 TR Peak Vel2.3 [ 1.0 - 2.8 ] m/s TR Peak PG 22mmHg RVSP36.6 [ 10.0 - 36.0 ] mmHg RA Xomvhuun74.0 mmHg PV Peak Vel1.4 [ 0.4 - [...] pressure. Electronically Signed By: Parish Monae MD, [facility] 2023-07-28 05:05:41 CDT CC: CC: Erin Cobian [employer]ET[employer] CV ECHO PROCEDURES Fin al Result * [...] 2023. Hct 18.6(L) 38.9 - 50.3 % [facility] Blood 07/27/2023 4:35 PM CDT 07/27/2023 4:44 PM CDT Parish Sarkar LAB BLOOD ORDERABLES F inal Result [facility] [address] [place] [address] * NT-Pro BNP - Add on lab test (07/27/2023 2:41 PM CDT) Pathologist [facility] Acceptable Yes Blood 07/27/2023 2:41 PM CDT 07/27/2023 2:41 PM CDT Narrative [facility] - 07/27/2023 2:41 PM CDT Name of Test->NT-Pro BNP Erin Cobian NP LAB BLOOD ORDERABLES F inal Result [facility] [address] [place] [address] * Transfuse RBC (07/27/2023 1:56 PM CDT) Blood Lew Garcia MD BLOOD TRANSFUSION ORDE RABLES Final Result [facility] [address] Department of Laboratories [place], [place] [phone] * Transfuse RBC: 2 Units (07/27/2023 1:56 PM CDT) Blood us Lew Garcia MD BLOOD TRANSFUSION ORDE JOEY Final Result * [place] CRITICAL CARE ILL/INJURED PATIENT INIT 30-74 MIN [...] BLOOD TRANSFUSION ORDNicole LAYOSTEPHENIE Final Result [facility] [address] [place] [address] * (ABNORMAL) Pro B-type natriuretic [...] BLOOD ORDERABLES Final Result Performing Organization Address [facility] Co de Phone Number [facility] [address] [place], [place] [id number] * (ABNORMAL) aPTT (07/27/2023 12:05 PM CDT) [...] ORDERABLES F inal Result Performing Organization Address [facility] Co de Phone Number [facility] [address] [place] [address] * (ABNORMAL) Protime-INR (07/27/2023 12:05 PM CDT) PT 13.9(H) 10.3 - 13.7 sec INR 1.22(H) 0.90 - 1.20 [facility] Comment: Interpretive data Oral anticoagulant therapeutic ranges: Venous thromboembolism prophylaxis or treatment: 2.0-3.0 CARDIOLOGY Standard range: 2.0-3.0 High-intensity range: 2.5-3.5 Refer to indication-specific guidelines for appropriate target ranges for prosthetic heart valve replacement. Current interpretive data was last revised on 2019. Blood 07/27/2023 12:0 5 PM CDT 07/27/2023 12:19 PM CDT Lew Garcia MD LAB BLOOD ORDERABLES F inal Result [facility] [address] [place] [address] * (ABNORMAL) CBC without differential (07/27/2023 12:05 PM CDT) Pathologist [facility] WBC 8.0 3.8 - 9.9 K/cumm Hgb 5.7(C) 13.0 - 17.5 g/dL [facility] Comment: Critical result called to [...] 2023. Hct 18.4(L) 38.9 - 50.3 % [facility] Plt 270 150 - 400 K/cumm [facility] MPV 9.0(L) 9.1 - 12.[address] [facility] RBC 1.78(L) 4.30 - 5.80 M/cumm [facility] Comment: Interpretive Data A reference range for this assay has not been established for patients with an unknown legal sex. Please refer to the laboratory test catalog for established sex-specific reference intervals. Current interpretive data was last revised on 2023. MCV 103.4(H) 81.3 - 96.[address] [facility] MCH 32.0 27.1 - 33.[address] [facility] MCHC 31.0(L) 32.3 - 35.7 g/dL [facility] RDW CV 15.3(H) 11.1 - 14.9 % [facility] RDW SD 52.0(H) 35.7 - 48.[address] [facility] NRBC abs 0.11(H) 0.00 - 0.01 K/cumm [facility] Blood 07/27/2023 12:0 5 PM CDT 07/27/2023 12:19 PM CDT Lew Garcia MD LAB BLOOD ORDERABLES F inal Result Performing Organization Address [facility] Co de Phone Number [facility] [address] [place] [address] * Troponin T high-sensitivity 2-hour (07/27/2023 12:05 PM CDT) Trop T hs 21 <=22 ng/L Comment: Interpretive Data For further hscTnT resources including the diagnostic algorithm and an aid in interpretation, copy and paste this link: https://nrl.testcatalog.org/show/hsTrop Current Interpretive Data last revised 2020. Trop T hs delta 1 ng/L [facility] Trop T hs interp Insignificant [facility] Blood 07/27/2023 12:0 5 PM CDT 07/27/2023 12:16 PM CDT us Lew Garcia MD LAB BLOOD ORDERABLES F inal Result Performing Organization Address [facility] Co de Phone Number [facility] [address] [place] [address] * CTA Chest Abdomen Pelvis (07/27/2023 10:45 [...] MD LAB BLOOD ORDERABLES Final Result [facility] [address] [place] [address] * (ABNORMAL) Iron profile w/ IBC (07/27/2023 9:14 AM CDT) Iron 125 50 - 150 mcg/dL Comment: Interpretive Data A reference range for this assay has not been established for patients with an unknown legal sex. Please refer to the laboratory test catalog for established sex-specific reference intervals. Current interpretive data was last revised on 2023. TIBC 234(L) 250 - 400 mcg/dL [facility] Transferrin saturation 53(H) 20 - 50 % [facility] Blood 07/27/2023 9:14 AM CDT 07/27/2023 9:36 AM CDT Result [facility] Nighat Angeles MD LAB BLOOD ORDERABLES Final Result Performing Organization Address [facility]/ZIP Co de Phone Number [facility] [address] [place] [address] * Folate - Add on lab test (07/27/2023 9:14 AM CDT) Acceptable Yes Blood 07/27/2023 9:14 AM CDT 07/27/2023 1:[address] [facility] - 07/27/2023 1:48 PM CDT Name of Test->Folate Result [facility] Nighat Angeles MD LAB BLOOD ORDERABLES Final Result Performing Organization Address [facility]/ZIP Co de Phone Number [facility] [address] [place] [address] * Vitamin B12 - Add on lab test (07/27/2023 9:14 AM CDT) Acceptable Yes Blood 07/27/2023 9:14 AM CDT 07/27/2023 1:[address] [facility] - 07/27/2023 1:48 PM CDT Name of Test->Vitamin B12 Nighat Angeles MD LAB BLOOD ORDERABLES Final Result Performing Organization Address [facility] Co de Phone Number [facility] [address] [facility] [place] [address] * Iron profile - Add on lab test (07/27/2023 9:14 AM CDT) Acceptable Yes Blood 07/27/2023 9:14 AM CDT 07/27/2023 1:45 PM CDT Narrative [facility] - 07/27/2023 1:45 PM CDT Name of Test->Iron profile Nighat Angeles MD LAB BLOOD ORDERABLES Final Result Performing Organization Address [facility] Co de Phone Number [facility] [address] [facility] [place] [address] * TSH reflex to free T4 (07/27/2023 9:14 AM CDT) Pathologist [facility] TSH 1.48 0.30 - 4.20 mcIUnit/mL Blood 07/27/2023 9:14 AM CDT 07/27/2023 9:21 AM CDT Lew Garcia MD LAB BLOOD ORDERABLES F inal Result Performing Organization Address [facility] Co de Phone Number [facility] [address] [place] [address] * Phosphorus (07/27/2023 9:14 AM CDT) Phosphorus, pl 2.9 2.3 - 4.5 mg/dL Blood 07/27/2023 9:14 AM CDT 07/27/2023 9:21 AM CDT Lew Garcia MD LAB BLOOD ORDERABLES F inal Result Performing Organization Address [facility]/ZIP Co de Phone Number [facility] [address] [place] [address] * (ABNORMAL) Magnesium (07/27/2023 9:14 AM CDT) Pathologist [facility] Magnesium 2.6(H) 1.4 - 2.5 mg/dL Blood 07/27/2023 9:14 AM CDT 07/27/2023 9:21 AM CDT Lew Garcia MD LAB BLOOD ORDERABLES F inal Result Performing Organization Address [facility] Co de Phone Number [facility] [address] [facility] [place] [employer] [place] [address] * Vitamin B12 (07/27/2023 9:14 AM CDT) Pathologist [facility] Vitamin B12 388 230 - 1,250 pg/mL Blood 07/27/2023 9:14 AM CDT 07/27/2023 9:21 AM CDT eLw Garcia MD LAB BLOOD ORDERABLES F inal Result Performing Organization Address [facility] de Phone Number [facility] [address] [facility] [place] [employer] [place] [address] * Troponin T high-sensitivity series (baseline, 2hr, 4hr, 6hr) (07/27/2023 9:14 AM CDT) Pathologist [facility] Trop T hs 20 <=22 ng/L Comment: Interpretive Data For further hscTnT resources including the diagnostic algorithm and an aid in interpretation, copy and paste this link: https://nrl.testcatalog.org/show/hsTrop Current Interpretive Data last revised 2020. Blood 07/27/2023 9:14 AM CDT 07/27/2023 9:21 AM CDT Lew Garcia MD LAB BLOOD ORDERABLES F inal Result Performing Organization Address [facility] Co de Phone Number [facility] [address] [place] [place] [address] * Type and screen (07/27/2023 9:14 AM CDT) [facility] Chacorta, indirect Negative ABO Rh O Positive [facility] Blood 07/27/2023 9:14 AM CDT 07/27/2023 9:[address] [facility] - 07/27/2023 10:24 AM CDT Has the patient had Daratumumab or Isatuximab in the past 6 months?->Unknown Lew Garcia MD LAB BLOOD BANK TEST OR DERABLES Final Result Performing Organization Address [facility]/ZIP Co de Phone Number [facility] [address] [facility] [place] [employer] [place] [address] * Prepare RBC: 2 Units (07/27/2023 8:41 AM CDT) [facility] Product code [id number] [facility] Unit Number [id number] [facility] Product Blood Type OPOS [facility] Dispense Status PRESUMED TRANSFUSED [facility] Product code [id number] Unit Number [id number] [facility] Product Blood Type OPOS [facility] Dispense Status PRESUMED TRANSFUSED [facility] Blood 07/27/2023 8:[address] [facility] - 07/28/2023 10:15 AM CDT Are special requirements needed? (All products are leukoreduced and CMV- safe)- >No Date required:-[id number] LRRBC # of [id number] Reasons:-Hgb <7 g/dL} us Lew Garcia MD BLOOD BANK PRODUCT ORD ERABLES Final Result Performing Organization Address [facility]/ZIP Co de Phone Number [facility] [address] [place] [address] * eGFR (07/27/2023 8:21 AM CDT) eGFR [...] MD LAB BLOOD ORDERABLES F inal Result [facility] [address] [place] [address] * (ABNORMAL) Differential, auto (07/27/2023 8:21 AM CDT) [facility] Neutrophil abs 6.8(H) 1.7 - 6.5 K/cumm Imm gran abs 0.1 0.0 - 0.1 K/cumm [facility] Lymphocyte abs 1.0 0.8 - 3.3 K/cumm [facility] Monocyte abs 0.7 0.2 - 0.8 K/cumm [facility] Eosinophil abs 0.0 0.0 - 0.5 K/cumm [facility] Basophil abs 0.0 0.0 - 0.1 K/cumm [facility] Neutrophil pct 79.0 % [facility] Comment: Interpretive Data Percent cell count reference ranges are not reported, since discordance with absolute values may lead to misinterpretation of CBC data. Current Interpretive Data was last revised on 2018. Imm gran pct 0.9 % [facility] Comment: Interpretive Data Percent cell count reference ranges are not reported, since discordance with absolute values may lead to misinterpretation of CBC data. Current Interpretive Data was last revised on 2018. Lymphocyte pct 11.8 % [facility] Comment: Interpretive Data Percent cell count reference ranges are not reported, since discordance with absolute values may lead to misinterpretation of CBC data. Current Interpretive Data was last revised on 2018. Monocyte pct 7.8 % [facility] Comment: Interpretive Data Percent cell count reference ranges are not reported, since discordance with absolute values may lead to misinterpretation of CBC data. Current Interpretive Data was last revised on 2018. Eosinophil pct 0.2 % [facility] Comment: Interpretive Data Percent cell count reference ranges are not reported, since discordance with absolute values may lead to misinterpretation of CBC data. Current Interpretive Data was last revised on 2018. Basophil pct 0.3 % [facility] Comment: Interpretive Data Percent cell count reference ranges are not reported, since discordance with absolute values may lead to misinterpretation of CBC data. Current Interpretive Data was last revised on 2018. Blood 07/27/2023 8:21 AM CDT 07/27/2023 8:25 AM CDT us Lew Garcia MD LAB BLOOD ORDERABLES F inal Result [facility] [address] Department [place] [address] * (ABNORMAL) Comprehensive metabolic panel (07/27/2023 8:21 AM CDT) Sodium 138 135 - 145 mmol/L Potassium, pl 4.6 3.3 - 4.9 mmol/L [facility] Comment:Hemolyzed; potassium value may be falsely elevated by as much as 0.6 - 1.0 mmol/L. Suggest redraw and reanalysis Chloride 105 97 - 110 mmol/L [facility] CO2 19(L) 22 - 32 mmol/L [facility] Anion gap 14 2 - 15 mmol/L [facility] BUN 33(H) 6 - 25 mg/dL [facility] Creatinine 0.85 0.80 - 1.30 mg/dL [facility] Glucose 136 70 - 199 mg/dL [facility] Comment: Interpretive Data Fasting glucose [...] 2022. Calcium 8.5 8.5 - 10.3 mg/dL [facility] Bilirubin, total 0.5 0.1 - 1.2 mg/dL [facility] Protein, pl 5.8(L) 6.5 - 8.5 g/dL [facility] Albumin 3.1(L) 3.5 - 5.0 g/dL [facility] Alk phos 61 40 - 130 Units/L [facility] ALT 31 7 - 55 Units/L [facility] Comment:Moderately Hemolyzed Specimen AST 46 10 - 50 Units/L [facility] Comment:Moderately Hemolyzed Specimen Blood 07/27/2023 8:21 AM CDT 07/27/2023 8:25 AM CDT Lew Garcia MD LAB BLOOD ORDERABLES F inal Result [facility] [address] [place] [address] * (ABNORMAL) CBC with auto differential (07/27/2023 8:21 AM CDT) WBC 8.7 3.8 - 9.9 K/cumm Hgb 5.5(C) 13.0 - 17.5 g/dL [facility] Comment: Critical result called to [...] 2023. Hct 17.6(L) 38.9 - 50.3 % [facility] Plt 315 150 - 400 K/cumm [facility] MPV 9.1 9.1 - 12.[address] [facility] RBC 1.73(L) 4.30 - 5.80 M/cumm [facility] Comment: Interpretive Data A reference range for this assay has not been established for patients with an unknown legal sex. Please refer to the laboratory test catalog for established sex-specific reference intervals. Current interpretive data was last revised on 2023. MCV 101.7(H) 81.3 - 96.[address] [facility] MCH 31.8 27.1 - 33.[address] [facility] MCHC 31.3(L) 32.3 - 35.7 g/dL [facility] RDW CV 14.9 11.1 - 14.9 % [facility] RDW SD 50.2(H) 35.7 - 48.[address] [facility] NRBC abs 0.11(H) 0.00 - 0.01 K/cumm [facility] Blood 07/27/2023 8:21 AM CDT 07/27/2023 8:25 AM CDT us Lew Garcia MD LAB BLOOD ORDERABLES F inal Result [facility] [address] [place] [address] * ECG 12 lead (07/27/2023 8:00 AM CDT) 07/27/2023 8:00 AM CDT Narrative [facility] - 07/27/2023 10:50 AM CDT Vent Rate: 122 bpm RR Interval: 489 msec [place] Interval: 0 msec QRS Duration: 110 msec QT Interval: 371 msec QTC Interval: 444 msec P-R-T [place]: 0 - -37 - 71 degrees IMPRESSION: ATRIAL FIBRILLATION WITH RAPID VENTRICULAR RESPONSE LEFT AXIS DEVIATION NONSPECIFIC ST \T\ T-WAVE ABNORMALITY ABNORMAL ECG Electronically Signed By: Javon Lopez MD [facility] us Lew Garcia MD ECG ORDERABLES Final Result [facility] documented in this encounter Visit Diagnoses [...] 07/27/2023 documented in this encounter Care Teams Advertising Display Rotator Relationship Specialty Start Date End Date Radha Lozada MD [facility] [place] [address] PCP - General Family Medicine 06/25/23 04/29/24 Kali Reddy MD Consulting Physician Cardiology 05/19/19 Keaton Lynn MD [address] [facility] [address] [place] [address] Consulting Physician Cardiothoracic Surgery 06/07/23 documented as of this encounter
--- OUTSIDE RECORDS SUMMARY | 2024-09-30 02:51 | XMS_ITS | Encounter Summary ---
Author Organization [facility] Healthcare Address [address] [place] [address] Care Team Providers Care Personal Security Specialist Name Role Phone Kali Reddy MD Unavailable [phone] Keaton Lynn MD Unavailable [phone] Radha Lozada MD Primary Care Provider [phone] Reason for Visit * Reason Comments Post-op Aneurysm Repair S/P Tissue [place] site Root, Replace Jose-Arch Encounter Details Date Type Department Care Team (Late st Contact Info) Description 08/16/2023 9:45 AM CDT Office Visit Cardiovascular and Thoracic Surgery [address] [facility] [address] [place] [address] Keaton Lynn MD [address] [place] [address] [address] [place] [address] Aftercare following surgery of the [...] often do you attend chur ch or voodoo services? 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 Gender Identity Not on file Sexual [...] encounter Patient Instructions * Patient Instructions* Hernan Heltno RN - 08/16/2023 9:45 AM CDT You [...] be recommended by a primary doctor, a account processor, or an orthopedist for patients who are [...] following surgery of the circulatory system (Primary) NTEER SERVICES COORDINATOR documented in this encounter Plan of Treatment Not on file documented as of this encounter Visit Diagnoses Diagnosis Aftercare following surgery of the circulatory system- Primary Aftercare following surgery of the circulatory system, NEC documented in this encounter Care Teams Personal Security Specialist Relationship Specialty Start Date End Date Radha Lozada MD [facility] [place] [address] PCP - General Family Medicine 06/25/23 04/29/24 Kali Reddy MD Consulting Physician Cardiology 05/19/19 Keaton Lynn MD [address] [facility] [address] [place] [address] Consulting Physician Cardiothoracic Surgery 06/07/23 documented as of this encounter
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
--- OUTSIDE RECORDS SUMMARY | 2024-09-30 02:51 | XMS_ITS | Encounter Summary ---
Author Organization [facility] Healthcare Address [address] [place] [address] Care Team Providers Care Plating And Point Assembly Supervisor Name Role Phone Kali Reddy MD Unavailable Keaton Lynn MD Unavailable [phone] Radha Lozada MD Primary Care Provider [phone] Reason for Visit * Auth/Cert (Routine) Specialty Diagnoses / Procedures Referred By Contac t Referred To Contact Diagnoses Atrial fibrillation, new onset (CMS/HCC) (HCC) Atrial fibrillation, new onset (CMS/HCC) (HCC) [I48.91] Procedures WA PERQ CLSR TCAT L ATR APNDGE W/ENDOCARDIAL IMPLNT WA ECHO JOVI GUID TCAT ICAR/VESSEL STRUCTURAL INTVN PERC ELROY CLOSE W/IMPLANT 12779 Referral ID Status Reason Start Date Expiration Date Visits Re quested Visits Authorized [id number] 1 1 Encounter Details Date Type Department Care Team (Late st Contact Info) Description 10/23/2023 10:30 AM GLOBAL PROJECT MANAGER - 10/23/2023 12:00 PM GLOBAL PROJECT MANAGER Surgery [facility] [address] [place] [id number] Nicolas Smith MD [address] [facility] [address] [place] [address] PERC ELROY CLOSE W/IMPLANT 57995 Surgery Details Date/Time Status Location OR Service Patient Class Case Class Case Type Trauma Case? 10/23/2023 10:30 AM Posted [facility] CARDIAC OPERATIONS RECRUITER HYBRID E Cardiovascular Outpatient Elective Panel 1 Procedure LRB Anes Op Region Wound Class Comments PERC ELROY CLOSE W/IMPLANT 93923 N/A General Surgeon Surgeon Role Service Panel Nicolas Smith MD Primary Cardiovascular 1 Kali Reddy MD Assisting Cardiovascular 1 Case Notes T&S ordered(2units PC on hold)OFFICE TO CONTACT [facility] documented in this encounter Social History [...] How often do you attend chur or denominational services? More than 4 times per year 07/30/2023 Do you belong to any clubs o r organizations such as mosque groups, unions, fraternal or athletic groups, or [...] on file Legal Sex Male 12:03 PM GLOBAL PROJECT MANAGER Gender Identity Not on file Sexual Orientation Not on file documented as of this encounter Last Filed Vital Signs Vital Sign Reading Time Taken Comments Blood Pressure 103/68 10/23/2023 12:00 PM GLOBAL PROJECT MANAGER Pulse 79 10/23/2023 12:00 PM GLOBAL PROJECT MANAGER Temperature 36.2 ??C (97.2 ??F) 10/23/2023 1 1:52 AM GLOBAL PROJECT MANAGER Respiratory Rate 17 10/23/2023 12:0 0 PM GLOBAL PROJECT MANAGER Oxygen Saturation 92% 10/23/2023 12: 00 PM GLOBAL PROJECT MANAGER Inhaled Oxygen Concentration - - Weight 108.3 kg (238 lb 12.1 oz) 10/23/2023 9:58 AM GLOBAL PROJECT MANAGER Height 182.9 cm (6') 10/23/2023 9:58 AM GLOBAL PROJECT MANAGER Body Mass Index 32.38 10/23/2023 9:58 AM GLOBAL PROJECT MANAGER documented in this encounter Discharge Instructions * Discharge Instructions* Melina Bai RN - 10/23/2023 2:55 PM GLOBAL PROJECT MANAGER Cardiac Laboratory [address] [place], [place] [address] CCL Discharge Instructions---Angiogram MEDICATIONS [] Do not [...] for any reason without discussing with your forensic dna analyst first. - These medications may make you [...] home diet [] Special diet Instructed by Candle Making Supervisor ACTIVITY You have been given medications which [...] Signature/Title: Date and Time: Cardiac Laboratory [address] [place], [place] [address] [facility] Discharge Instructions---Angiogram MEDICATIONS [] Do not take [...] for any reason without discussing with your forensic dna analyst first. - These medications may make you [...] home diet [] Special diet Instructed by Candle Making Supervisor ACTIVITY You have been given medications which [...] Patient/Family Signature: Staff Signature/Title: Date and Time: AL PROJECT MANAGER documented in this encounter Medications at Time [...] Nicolas, MD - 10/23/2023 9:13 AM CST [facility] Cardiology [address] [address] Cardiology Yariel Hills, MD Kali Reddy, MD Wellington Dugan, MD Parish Monae, MD Kilo Sims, MD Johnny Maher, MD Osmin Barbosa, MD Best Ramirez, MD Nicolas Smith, MD Everardo Briscoe, DO Javon Lopez, MD Rory Dowling, MD Clyde Stovall, MAINTAINER PLANT Erin Monk, ALEX Smith, MAINTAINER PLANT Patient Name: Omar Nolasco Provider: MEAGHAN Stout [...] This note was dictated with voice-recognition software, electrical experimental mechanic errors may be present. Erin Monk NP AL PROJECT MANAGER documented in this encounter Miscellaneous Notes * Post-Procedure Note - Nicolas Smith MD - 10/23/2023 11:39 AM CST Images from the original note were not included. [facility] Cardiology [address] [facility], [id number], [address] Watchman Left Atrial Appendage Occluder Placement Procedure Report 78 year old male with atrial fibrillation with elevated CHADSVASC score and elevated bleeding risk referred for Watchman device. Attending physicians: Nicolas Smith MD Access:8F RFV ->14F for device placement Catheter:Pigtail Injection:Left atrial appendage Closure:Perclose Anticoagulation:55936Zgrje Heparin Air Kerma:115 mGy Fluoro time:5.2 min [...] teams. Nicolas Smith MD 10/23/23 11:39 AM AL PROJECT MANAGER documented in this encounter Plan of Treatment Not on file documented as of this encounter Procedures Procedure Name Priority Date/Time Associated Diagnosis Comments JOVI GUIDANCE DURING CARDIAC STRUCTURAL INTVN 61462 Routine 10/23/2023 12:07 PM GLOBAL PROJECT MANAGER Atrial fibrillation, new onset (CMS/HCC) (HCC) PERC ELROY CLOSURE W/IMPLANT (WATCHMAN) 49936 Routine 10/23/2023 11:43 AM GLOBAL PROJECT MANAGER Atrial fibrillation, new onset (CMS/HCC) (HCC) POCT ACTIVATED CLOTTING TIME, LOW RANGE Routine 10/23/2023 11:22 AM GLOBAL PROJECT MANAGER ECG 12-LEAD STAT 10/23/2023 9:47 AM GLOBAL PROJECT MANAGER Atrial fibrillation, new onset (CMS/HCC) (HCC) TYPE AND SCREEN STAT 10/23/2023 9:44 AM GLOBAL PROJECT MANAGER Atrial fibrillation, new onset (CMS/HCC) (HCC) documented in this encounter Results * JOVI Guidance During Cardiac [place] 42227 (10/23/2023 12:07 PM GLOBAL PROJECT MANAGER) Anatomical Region Laterality Modality Echocardiography 10/23/2023 11:0 4 AM GLOBAL PROJECT MANAGER Narrative 10/23/2023 12:16 PM GLOBAL PROJECT MANAGER [place] [id number] [place] [address] TRANSESOPHAGEAL ECHOCARDIOGRAM Patient Name: OMAR NOLASCO : 1945 Study Date: 10/23/2023 11:04:22 AM Gender: M Tech: NILSA Location: [facility] Ref Provider: NICOLAS SMITH ?Height(Cm): 183 BSA: [...] end of the case. Predominant flow is dtmj-nv-wzhgo. Mitral Valve: Grossly normal appearing mitral valve. [...] end of the case. Predominant flow is pprj-ac-fojkx. 4. There is no aortic regurgitation. No [...] Signed By: Kali Reddy MD 2023-10-23 12:15:29 GLOBAL PROJECT MANAGER CC: ??Nicolas Smith MD Procedure Note Kali Reddy MD - 10/23/2023 [facility] [address] [place] [address] TRANSESOPHAGEAL ECHOCARDIOGRAM Patient Name: OMAR NOLASCO : 1945 Study Date: 10/23/2023 11:04:22 AM Gender: M Tech: NLISA Location: 6152 Ref Provider: NICOLAS SMITH Height(Cm): [...] the end of the case.Predominant flow is [id number]-fi-[id number]. Mitral Valve: Grossly normal appearing mitral valve. [...] the end of the case.Predominant flow is dwnc-hp-[id number]. 4. There is no aortic regurgitation. No [...] Signed By: Kali Reddy MD 2023-10-23 12:15:29 GLOBAL PROJECT MANAGER CC: Nicolas Smith MD Nicolas Smith MD CV ECHO PROCEDURES Final Result * PERC ELROY CLOSURE W/IMPLANT (WATCHMAN) 17321 (10/23/2023 11:43 AM GLOBAL PROJECT MANAGER) Anatomical Region Laterality Modality X-Ray Angiograph y Narrative 10/23/2023 11:48 AM GLOBAL PROJECT MANAGER Images from the original result were not included. [facility] Cardiology ?? [address] [facility], [id number] [place], [place], [address] ?? Watchman Left Atrial Appendage Occluder Placement Procedure Report 78 year old male with atrial fibrillation with elevated CHADSVASC score and elevated bleeding risk referred for Watchman device. Attending physicians: ??Nicolas Smith MD Access:8F RFV ->14F for device placement Catheter:Pigtail Injection:Left atrial appendage Closure:Perclose Anticoagulation:96568Atbvx Heparin Air Kerma:115 mGy Fluoro time:5.2 min [...] clotting time, low range (10/23/2023 11:22 AM GLOBAL PROJECT MANAGER) ACT 373(H) 123 - 168 sec [facility] Blood 10/23/2023 11:2 2 AM GLOBAL PROJECT MANAGER 10/23/2023 11:22 AM GLOBAL PROJECT MANAGER us Nicolas Smith MD LAB POCT ORDERABLES - DEVICE Fin al Result Performing Organization Address [facility] Co de Phone Number [facility] [address] Department [place] [address] * ECG 12 lead (10/23/2023 9:47 AM GLOBAL PROJECT MANAGER) 10/23/2023 9:47 AM GLOBAL PROJECT MANAGER Narrative [facility] - 10/23/2023 2:13 PM GLOBAL PROJECT MANAGER Vent Rate: 63 bpm RR Interval: 943 msec WA Interval: 161 msec QRS Duration: 108 msec QT Interval: 426 msec QTC Interval: 434 msec P-R-T [place]: 26 - -54 - 79 degrees IMPRESSION: SINUS RHYTHM WITH OCCASIONAL SUPRAVENTRICULAR PREMATURE COMPLEXES LEFT ANTERIOR FASCICULAR BLOCK ??[QRS AXIS <= -45, QR IN I, RS IN II] NONSPECIFIC T-WAVE ABNORMALITY ABNORMAL ECG Electronically Signed By: Osmin Barbosa MD us Nicolas Smith MD ECG ORDERABLES Final Result Performing Organization Address [facility] Co de Phone Number [facility] [employer] [facility] * Type and screen (10/23/2023 9:44 AM GLOBAL PROJECT MANAGER) [place], indirect Negative ABO Rh O Positive [facility] Blood 10/23/2023 9:44 AM GLOBAL PROJECT MANAGER 10/23/2023 10:08 AM GLOBAL PROJECT MANAGER Narrative [facility] - 10/23/2023 11:10 AM GLOBAL PROJECT MANAGER Has the patient had Daratumumab or Isatuximab in the past 6 months?->Unknown Nicolas Smith MD LAB BLOOD BANK TEST ORDERABLES F inal Result [facility] [address] Department [place] [address] documented in this encounter Visit Diagnoses Diagnosis [...] 1100, Intra-Procedure (CV) Given 10/23/2023 11:00 AM GLOBAL PROJECT MANAGER 500 mL Given 10/23/2023 11:00 AM GLOBAL PROJECT MANAGER 500 mL Given 10/23/2023 11:00 AM GLOBAL PROJECT MANAGER 500 mL ioversoL (OPTIRAY 350) injection Code/trauma/sedation medication, Starting on Sun10/23/23 at 1135, Intra-Procedure (CV) Given 10/23/2023 11:35 AM GLOBAL PROJECT MANAGER 36 mL lidocaine-EPINEPHrine (XYLOCAINE with EPI) 2 %-1:200,000 preservative free injection Code/trauma/sedation medication, Starting on Sun10/23/23 at 1135, Intra-Procedure (CV), Indications: Administration of Local AnesthesiaIndications:Administrat ion of Local Anesthesia Given 10/23/2023 11:35 AM GLOBAL PROJECT MANAGER 10 mL Right Groin sodium chloride 0.9% infusion 15 mL/hr, intravenous, Continuous, Starting on Sun10/23/23 at 1015, Pre-Procedure (CV)Indications:Atrial fibrillation, new onset (CMS/HCC) (HCC) Restarted 10/23/2023 11:57 AM GLOBAL PROJECT MANAGER New Bag 10/23/2023 10:49 AM GLOBAL PROJECT MANAGER 50 mL/hr documented in this encounter Active and Recently Administered Medications Times are shown in GLOBAL PROJECT MANAGER. Continuous Medication Order 2023 10/22/2023 10/23/2023 sodium [...] (CV) 1135 (Given - Provid er: Nicolas Smiht MD) lidocaine-EPINEPHrine (XYLOCAINE with EPI) 2 %-1:200,000 [...] 10/23/2023 documented in this encounter Care Teams Plating And Point Assembly Supervisor Relationship Specialty Start Date End Date Radha Lozada MD [facility] [address] PCP - General Family Medicine 06/25/23 04/29/24 Kali Reddy MD Consulting Physician Cardiology 05/19/19 Keaton Lynn MD [address] [facility] [address] [place] [address] Consulting Physician Cardiothoracic Surgery 06/07/23 documented as of this encounter
--- OUTSIDE RECORDS SUMMARY | 2024-09-30 02:51 | XMS_ITS | Encounter Summary ---
Author Organization [facility] Healthcare Address [address] [place] [address] Care Team Providers Care Judicial Assistant Name Role Phone Kali Reddy MD Unavailable [phone] Keaton Lynn MD Unavailable [phone] Radha Lozada MD Primary Care Provider [phone] Reason for Referral * Cardiology (Routine) - [...] WO DOPPLER/CF W CONTRAST Nicolas Golden MD [address] [place] [address] Phone: tel: fax: [facility] [address] [place] [address] Referral ID Status Reason Start Date Expiration Date Visits Re quested Visits Authorized [id number] Closed 08/03/2023 09/01/2024 1 1 Reason for Visit * Reason Onset Date Comments Scheduling WM w/GT & FU protocols 08/01/2023 Encounter Details Date Type Department Care Team (Late st Contact Info) Description 08/01/2023 Telephone [facility] Cardiology [address] [facility] [address] [place] [address] Nicolas Golden MD [address] [facility] [address] [place] [address] Scheduling WM w/GT & FU [...] 07/30/2023 How often do you attend [facility] or sikh services? 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 OK for WM 10/23/23 ARIAL TECHNICIAN * Telephone Encounter - Blank Smyth RN - 10/16/2023 1:39 PM CST Pt went to wrong lab & only go BMP. I called [facility] & they take outside orders & can draw CBC & INR. I faxed order to them to [phone]. Spoke w//HIPAA cat & she will relay message that pt needs to go 1st thing tomorrow. She will have him do so. ARIAL TECHNICIAN * Addendum Note - Blank Smyth RN - 10/11/2023 10:28 AM CSTAddended by: BLANK SMYTH on: 10/11/2023 10:28 AM Modules accepted: Orders ARIAL TECHNICIAN * Telephone Encounter - Blank Smyth RN - 10/11/2023 10:28 AM CST LMOM reminding pt to have labs done no later than 10/16/23 for WM w/GT 10/23/23. ARIAL TECHNICIAN * Telephone Encounter - Blank Smyth RN - 08/03/2023 2:38 PM CDT Spoke w/pt & spouse. Not in any [place] for procedure. Wants to wait until October to allow more healing time after hospital stay & procedures while IP. Will keep appt in Nov w/SALES PROMOTION DIRECTOR though. Pt now scheduled for WM w/GT 10/23/23 Case 3 (arrive @ 0830). Labs @ [facility] between 10/09 - 10/17/23 (order sent). 45D WM KELLEY w/MK 12/04/23 @ 0930 (arrive @ 0900) then see PP SALES PROMOTION DIRECTOR @ 1130. Instructions mailed to confirmed address [...] to you via phone by the Cardiac Table Hand the eveningprior to procedure Date of Procedure: 10/23/2023 Location: ?[facility] [address] [place] [address] [address] 2nd?floor Cardiac Table Hand Instructions: ? NOTHING?TO EAT OR DRINK AFTER [...] (order sent electronically to OP Lab at [facility]) Please plan to have a new car driver take you home. ?You may be kept overnight for observation; however, you will not be allowed to drive yourself home, the next day.?? ? Please bring photo ID, insurance cards, and list of current medication. You should receive a call directly from the cardiac manufacturing lab technician nurses the day before your procedure (Sunday [...] 4:30 the day before- you can call [phone] to double confirm your appt details YOU [...] PRACTITIONER Date: 12/04/2023 Arrival Time: 09:00AM Location: [facility]. Cardiac Table Hand (located on second floor) Instructions: NOTHING TO [...] of procedure. Please plan to have a new car driver take you home. NO alcohol consumption 24 hr prior to procedure Bring photo ID, insurance cards, and current list of medications. Same Day Office Visit: [facility] [address] Same Day OFFICE VISIT Following KLELEY at: 11:30AM Who you???ll be seeing: Erin [...] of echo called a KELLEY- which means prppp-fnevkmxvbo-pcrlihwrivnwpy The echo probe is positioned through mouth [...] day office visit (OV) with Nurse Practitioner (SALES PROMOTION DIRECTOR) in person at [facility] Since KELLEY requires sedation, a new car driver will be needed on the 45 day follow up Remaining requirements of watchman completion are office visits only (no further testing) at the 6 month, 1 year, 2 year [x]Pt verbalizes understanding and acceptance to completing the following requirements after the watchman procedure: - DAPT u0invup - KELLEY and same day office visit with the SALES PROMOTION DIRECTOR/scrap drop crane operator - 45 day linette - Office visit at 6 month with SALES PROMOTION DIRECTOR - Office visit at 1 year with SALES PROMOTION DIRECTOR - Office visit at 2 year with SALES PROMOTION DIRECTOR Timeframe & requirements prior to procedure: Need to complete a shared decision making (SDM) either through referral form by one of the patient's care team members that is not classified as an infusion nurse (can include but not limited to: primary care physician [PCP], immigration paralegal [GI], refrigerator glazier) or setting up an OV with one of the practice's scrap drop crane operator who are not actively doing interventional cardiology. [...] hours prior to procedure. Pt's Preferred Lab: [facility] between 10/09/23 - 10/16/23 Length of wait [...] implantation for him. He is agreeable.[facility] No [place]. Me: Do you want [...] W DOPPLER/CF WO CONTRAST (12/04/2023 12:11 PM ACTUARIAL TECHNICIAN) BSA 2.37 m2 CONS SCIMAGE Anatomical Region Laterality Modality Echocardiography 12/04/2023 9:42 AM ACTUARIAL TECHNICIAN Narrative 12/04/2023 10:23 AM ACTUARIAL TECHNICIAN [facility] [place] [address] TRANSESOPHAGEAL ECHOCARDIOGRAM Patient Name: OMAR ADAMYael : [...] Signed By: Kali Reddy MD 2023-12-04 10:22:45 ACTUARIAL TECHNICIAN CC: ??Nicolas Golden MD Procedure Note Kali Reddy MD - 12/04/[address] [address] TRANSESOPHAGEAL ECHOCARDIOGRAM Patient Name: OMAR ADAM L [...] Signed By: Kali Reddy MD 2023-12-04 10:22:45 ACTUARIAL TECHNICIAN CC: Nicolas Golden MD us Nicolas Golden MD CV ECHO PROCEDURES Final Result documented in this encounter Visit Diagnoses Diagnosis Atrial fibrillation, new onset (CMS/HCC) (HCC)- Primary Atrial fibrillation, new onset (CMS/HCC) (HCC) documented in this encounter Care Teams Judicial Assistant Relationship Specialty Start Date End Date Radha Lozada MD [facility] [place] [address] PCP - General Family Medicine 06/25/23 04/29/24 Kali Reddy MD Consulting Physician Cardiology 05/19/19 Keaton Lynn MD [address] [facility] [address] [place] [address] Consulting Physician Cardiothoracic Surgery 06/07/23 documented as of this encounter
--- OUTSIDE RECORDS SUMMARY | 2024-09-30 02:52 | XMS_ITS | Encounter Summary ---
Author Organization [facility] Healthcare Address [address] [place] [address] Care Team Providers Care Parquet Floor Layer Name Role Phone Kali Reddy MD Unavailable Keaton Lynn MD Unavailable Radha Lozada MD Primary Care Provider [phone] Reason for Visit * Reason Onset Date Comments Medication questions 07/25/2023 Encounter Details Date Type Department Care Team (Late st Contact Info) Description 07/25/2023 Telephone Cardiovascular and Thoracic Surgery [address] [facility] [address] [place] [address] Hernan Helton, RN [address] [facility] [address] [place] [address] Medication questions Social History Tobacco [...] week 07/12/2023 How often do you attend [facility] or muslim services? More than 4 times per year 07/12/2023 Do you belong to any clubs o r organizations such as baptism groups, unions, fraternal or athletic groups, or [...] in a care home (including now)? 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
--- OUTSIDE RECORDS SUMMARY | 2024-09-30 02:52 | XMS_ITS | Encounter Summary ---
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 Keaton Lynn MD [address] [facility] [address] [place] [address] Phone: tel: fax: [place] [address] [facility] [address] [place] [address] Phone: tel: fax: Referral ID Status Reason Start Date Expiration Date V isits Requested Visits Authorized [id number] Closed Specialty Services Required 07/12/2023 08/10/2024 1 1 [facility] Primary disciplines requested: [facility] Disease and Medication Management, [...] ascending aorta without rupture (HCC) [I71.21] Procedures MA -AORT GRF W/CARD BYP F/AORTIC DS OTH/THN DSJ REPLACEMENT OF ASCENDING AORTA Referral ID Status Reason Start Date Expiration Date Visits Re quested Visits Authorized [id number] 1 1 Encounter Details Date Type Department Care Team (Latest Contact Info) Description 07/10/2023 9:33 AM CDT - 07/14/2023 5:25 PM CDT Hospital Encounter [facility] [address] [place] [address] Keaton Lynn MD [address] [facility] [address] [place] [address] Aneurysm of ascending aorta without [...] How often do you attend chur or mandaeism services? More than 4 times per year 07/12/2023 Do you belong to any clubs o r organizations such as orthodoxy groups, unions, fraternal or athletic groups, or [...] slept in a intermediate (including now)? 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 States his doughnut dough mixer advised that he not lift more than [...] supplement you enjoyed during your stay at [facility]. Some examples of nutrition supplements include Glucerna, Ensure, Boost, or a homemade high protein and/or calorie drink. It is recommended to continue drinking two supplements each day for 30 days. Other Instructions Ambulatory referral to Home Health Service Line: Home Health Primary disciplines requested: Shelter Home Health Services: Disease and Medication Management [...] Center 08/16/2023 9:45 AM Keaton Lynn MD [facility] [id number] PSA 05/21/2024 9:15 AM [facility] [facility] [facility] Main 05/21/2024 10:30 AM Kali Reddy MD [facility] [address] Specialty Contact Information for Follow-ups [facility] Home Care Services Specialty: Home Health and Hospice [address] [address] Next Steps: Follow up Questions: Service Line: Home Health Primary disciplines requested: Shelter Home Health Services: Disease and Medication Management [...] Referral Status: External - All Visits Complete [facility] Cardiopulmonary Rehab [address] [place] [phone] Next Steps: Follow up Questions: Please select the performing region: External Order To loc/pos: [facility] Cardiopulmonary Rehab Select a phase: Phase [...] supplement you enjoyed during your stay at [facility]. Some examples of nutrition supplements include [...] 07/13/23 0659 07/13/23699 - 07/14/23 0659 Shift 6192-6874 7762-2339 24 Hour Total 4479-2512 3771-5135 24 Hour Total INTAKE P.O. 500 500 [...] (from Physical Therapy) Active Problems Problem: PT [facility] Start Date: 07/11/23 Goal Start Date Expected End Date End Date PT [facility] 1 07/11/23 08/03/23 -- Goal Details: Independent bed mobility and transfers adhering to sternal precautions 100% of the time. Goal Start Date Expected End Date End Date PT [facility] 2 07/11/23 08/03/23 -- Goal Details: Pt amb 360ft with least restrictive device level surfaces mod indep or indep. Goal Start Date Expected End Date End Date PT [facility] 3 07/11/23 08/03/23 -- Goal Details: Pt amb up/down curb step mod indep or indep and up/down 3 steps with single HR mod indep or indep with good dyn stand balance and/or low fall risk on Villarreal balance scale. Goal Start Date Expected End Date End Date PT [facility] - [facility] 4 07/11/23 08/03/23 -- Goal Details: Pt to apply sternal precautions independently without cueing from PT and display goodknowledge of cardiac HEP for optimal healing and functional recovery. * Cyrus Mackey EP-C - 07/13/2023 9:50 AM CDT Inpatient Cardiac Rehab Education Patient Information Patient Name: Judi Nolasco : 1945 Room/Bed: [id number] Insurance: Medicare Traditional + [facility] Progress Note Human Resources Coordinator: JOSSELINE Alejandra Date: 07/13/2023 Referring Diagnosis for Cardiac Rehab - S/P Aortic Valve Replacement Education Provided Explained my role as a Cardiac Rehab Navigator (CRN). Provided Cardiac Rehab education to patient. Family was not present. Patient was provided with Cardiac Rehab education folder as well as a [facility] Heart Education booklet. Risk Factors: HTN, HLD, [...] fats)and exercise. Advised patient to consult their frame operator, nurse, and/or physician if they have any questions about their diet/nutrition. Cardiac Rehab: Gave patient options of facilities for Outpatient Cardiac Rehab (OCR) in their community. Explained OCR program. Patient expressed knowledge towards local [facility] program [facility] [place] [place]. Stressed the importance/benefits of incorporating regular [...] working towards eventually trying to reach the [place] [employer] recommendations in regards to exercise: [...] when it would be appropriate to call Fish Technologist's office, go to the ER, or call 911. Insurance Coverage: Briefly explained general insurance coverage for OCR, but assured patient that OCR facility will usually call insurance and inform patient of more of an approximate coverage. Post-Discharge: Explained process between discharge from hospital, and getting set up in an OCR program - follow upwith Fish Technologist, CRN follow up calls, OCR program contact. Conclusion Patient seems likely to participate in OCR. Reassured patient of importance and health care provider support of OCR. Patient verbalized understanding of education, and all questions were answered to the best of my ability. Will complete order for OCR to be sent to Fish Technologist. Thank you for allowing us to medical technician assistant in the care of this patient, please don't hesitate to contact the Cardiac Rehab Navigator office with any questions: [phone]. * Monie Velasquez COTA - 07/13/2023 6:07 [...] 0659 07/12/23 07 - 07/13/23 0659 Shift 7897-7993 9661-9751 24 Hour Total 5475-6073 2224-4517 24 Hour Total INTAKE P.O. 700 700 [...] (from Physical Therapy) Active Problems Problem: PT [facility] Start Date: 07/11/23 Goal Start Date Expected End Date End Date PT [facility] 1 07/11/23 08/03/23 -- Goal Details: Independent bed mobility and transfers adhering to sternal precautions 100% of the time. Goal Start Date Expected End Date End Date PT [facility] 2 07/11/23 08/03/23 -- Goal Details: Pt amb 360ft with least restrictive device level surfaces mod indep or indep. Goal Start Date Expected End Date End Date PT [facility] 3 07/11/23 08/03/23 -- Goal Details: Pt amb up/down curb step mod indep or indep and up/down 3 steps with single HR mod indep or indep with good dyn stand balance and/or low fall risk on Villarreal balance scale. Goal Start Date Expected End Date End Date PT [facility] 4 07/11/23 08/03/23 -- Goal Details: Pt to apply sternal precautions independently without cueing from PT and display goodknowledge of cardiac HEP for optimal healing and functional recovery. Devi Corrales DPT * Monie Velasquez COTA - 07/12/2023 6:15 AM CDT [...] demonstration. Patient needs ongoing reinforcement Cosigned by Iadlia Baxter OT at 07/12/2023 11:23 AM CDT [...] OTHER MEDICAL ascending aortic aneurysm; Comments: [facility] 10/19/2015 - Hypertension Hypertension Sleep apnea [...] sodium chloride 0.9%, 0.5-20 mL, intra-catheter, Q8H [facility] Continuous Infusions: sodium chloride 0.9%, 10 mL/hr [...] Carbohydrate Diet effective now Question Answer Comment ([facility]) Diet type Restricted Fat / Sodium Restriction: [...] supplement you enjoyed during your stay at [facility]. Some examples of nutrition supplements include Glucerna, Ensure, Boost, or a homemade high protein and/or calorie drink. It is recommended to continue drinking two supplements each day for [address],LD * Kalen Rivera DNP - 07/11/2023 9:17 AM CDT Images from the original note were not included. [facility] CVR Daily Progress Note- Patient: Judi Nolasco : 1945 Age: 77 y.o. male Admitting Physician: Keaton Lynn MD Legal Specialist: Izabella Alfaro MD, [facility] Shift: [facility] CVR AM Interval History: 500 LR x [...] in place with clear, yellow urine Skin: [place], warm, dry, midline sternal incision clean, dry, [...] 07/10/23699 - 07/11/2365807/11/23699 - 07/12/23 0659 Shift 1600-9405 6265-2827 24 Hour Total 4377-6142 8655-3449 24 Hour Total INTAKE P.O. 700 700 I.V.(mL/kg) 1734(15.6) 1417(12.7) 3151(28.3) Blood 861 861 IV Piggyback 300 300 Shift Total(mL/kg) 2895(26) 2117(19) 5012(45.1) OUTPUT Urine(mL/kg/hr) 850(0.6) 1195(0.9) 2045(0.8) 85 85 Blood 200 200 Chest Tube 130 320 450 110 110 Shift Total(mL/kg) 1180(10.6) 1515(13.6) 2695(24.2) 195(1.8) 195(1.8) NET 1973 074 2516 -195 -195 Weight (kg) 111.2 111.2 111.2 [...] Insufficiency Atelectasis Pleural Effusion MONIKA Extubated to [place] overnight. Rested on CPAP. CXR with trace [...] DME he needs, but owns none, (owns [employer] so has equipment there. 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 [...] Pain Interventions Repositioned Cognition Cognition Comments mild MECHOOPDA, is belching a lot and does not [...] (S) pt must make anticipated progress to ak home. PT Frequency during current admission 3-5x/wk Treatment/Interventions during current admission Bed mobility;Compensatory technique education;Functional activity;Gait training;Therapeutic activity;Therapeutic exercise PT Equipment Recommended None (per pt has access to DME) Progress during current admission Slow progress, decreased activity tolerance PT Evaluation Complete Yes Multi-Disciplinary Problems (from Physical Therapy) Active Problems Problem: PT [facility] Start Date: 07/11/23 Goal Start Date Expected End Date End Date PT [facility] 1 07/11/23 08/03/23 -- Goal Details: Independent bed mobility and transfers adhering to sternal precautions 100% of the time. Goal Start Date Expected End Date End Date PT [facility] 2 07/11/23 08/03/23 -- Goal Details: Pt amb 360ft with least restrictive device level surfaces mod indep or indep. Goal Start Date Expected End Date End Date PT [facility] 3 07/11/23 08/03/23 -- Goal Details: Pt amb up/down curb step mod indep or indep and up/down 3 steps with single HR mod indep or indep with good dyn stand balance and/or low fall risk on Villarreal balance scale. Goal Start Date Expected End Date End Date PT [facility] 4 07/11/23 08/03/23 -- Goal [...] for long distances. 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 [facility] CVR PM Progress Note- Patient: Judi Nolasco : 1945 Age: 77 y.o. male Admiting Physician: Keaton Lynn MD Legal Specialist: Izabella Alfaro MD, [facility] Shift: [facility] CVR PM Interval History: - Arrived from [...] soft, non-distended, bowel sounds hypoactive. : [place] Uente in place draining clear yellow urine Skin: [...] 0659 07/11/23 07 - 07/12/23 0659 Shift 3130-2517 6478-2642 24 Hour Total 4929-9795 2330-9798 24 Hour Total INTAKE I.V.(mL/kg) 1734(15.6) 1734(15.6) [...] has progressed on surveillance chest CT scans. KLELEY (07/10) Preserved biventricular function on no inotropes. [...] glycol and bisacodyl suppository PRN. Glycemic control: [place] Protocol insulin gtt. Lab Results Component Value [...] from the original note were not included. [facility] CVR History & Physical - Patient: Judi Nolasco : 1945 Age: 77 y.o. male Admitting Physician: Keaton Lynn MD Legal Specialist: Izabella Alfaro MD, [facility] Shift: [facility] CVR AM HPI: 77 y.o. male presenting [...] History: Diagnosis Date Arthritis Arthritis; Comments: [facility] 10/19/2015 - HX OTHER MEDICAL ascending aortic aneurysm; Comments: [facility] 10/19/2015 - Hypertension Hypertension Sleep apnea [...] 0659(Not Admitted) 07/10/23699 - 07/11/23 0659 Shift 9800-3633 0829-6320 24 Hour Total 5781-5231 2898-3258 24 Hour Total INTAKE I.V. 1636(14.7) 1636(14.7) [...] glycol and bisacodyl suppository PRN. Glycemic control: [place] Protocol insulin gtt. Lab Results Component Value [...] is primarily with heavy lifting. 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 This time was in addition to and separate from care provided by other practitioners on this day of service. * Laquita Parson NP - 07/10/2023 6:36 PM CDTAssociated Order(s): Critical Care Post-Procedure Diagnose(s): Aneurysm of ascending aorta without rupture (HCC) Critical Care Performed by: Laquita Parson NP Authorized by: Laquita Parson NP CRITICAL CARE: Team: [facility] CT Shift: PM Level of Billing: Subsequent [...] plan with the patient's team and other medical/sap treasury consultant staff. This time was in addition [...] by: Kalen Rivera DNP CRITICAL CARE: Team: [facility] CT Shift: AM Level of Billing: Critical [...] plan with the ICU team and other medical/sap treasury consultant staff, making frequent assessments and decisions [...] CDT 07/15/2023 1030 DC info sent to [facility] who have accepted patient. * Plan of [...] SMITH, patient can be seen sooner by [facility]. [facility] HH consult closed and no services set up at this time. * Incidental Note - Josie Coffey RN - 07/12/2023 3:16 PM CDT LUIS Initial Assessment Interview Note Information Obtained From: Patient (07/12/231513) Admission Source: home Impression: repair ascending aortic aneurysm Plan Includes: [facility] with [facility]. [facility] ) care has accepted patient. Primary Source of Transportation: Does the patient need discharge transport arranged?: No (07/12/231513) Health Insurance Coverage: Medicare Prescription Coverage: yes Pharmacy: [facility] [id number] [place] [id number] Primary Care Provider: Radha Lozada MD Prior [...] a week How often do you attend orthodoxy or mandaeism services?: More than 4 times per year Do you belong to any clubs or organizations such as orthodoxy groups, unions, fraternal or athletic groups, or [...] Screening Potential discharge needs include: Home Health: custodial (07/12/231513) Dialysis: Behavioral Health Services: Behavioral Health Services: No (07/12/231513) Patient expects to be Discharged to: Private residence, (07/12/231513) Additional Information: Lives at home with . Independent with adl's supervisor briar shop. Discharge plan to return home with . Home health care orders received. [place] home health care referrals sent via Voicebase. Patient informed of accepting home health care agencies and has chosen [facility] home health care. Patient's Identified Problem/Goal Problem: [...] Collaboration with patient, MD, direct care nurse, Case Resource Manager, and other members of the health care team to assure needed interventions completed. 2. Return patient to optimal level of self-care post discharge. 3. Hay Stacker Operator will follow for Discharge Planning - interventions as needed 4. Anticipated level of care at discharge 5. Planned Discharge Disposition Josie Coffey RN * Plan of Care - Sandra Villalpando RN - 07/12/2023 2:55 PM CDT [facility] Home Health consult received. [facility] Home Care agency accepted patient with projected [...] in bed, pulling at gown and lines. [place] noted to be pulled out. Emani JOHNSON [...] by anesthesia using cerebral oximetry and a [place]-Jered catheter, and prepped and draped in sterile [...] junction and transected. Direct ostial cold antegrade [facility] cardioplegia was given with a quick [...] AM CDT) eGFR 91 mL/min/1. 73 m2 [facility] Comment: Interpretive Data Reference Interval Normal ?>/= [...] CDT 07/14/2023 1:34 AM CDT Kalen Rivera [facility] LAB BLOOD ORDERABLES Final Result [facility] [address] [facility] [place] [address] * Magnesium (07/14/2023 1:34 AM CDT) [facility] Magnesium 2.2 1.4 - 2.5 mg/dL [facility] Blood 07/14/2023 1:34 AM CDT 07/14/2023 1:34 AM CDT Kalen Rivera [facility] LAB BLOOD ORDERABLES Final Result Performing Organization Address [facility] [[email or web address]] de Phone Number [facility] [address] [place] [address] * (ABNORMAL) Renal function panel (07/14/2023 1:34 AM CDT) [facility] Sodium 136 135 - 145 mmol/L [facility] Potassium, pl 3.9 3.3 - 4.9 mmol/L [facility] Chloride 98 97 - 110 mmol/L [facility] CO2 27 22 - 32 mmol/L [facility] Anion gap 11 2 - 15 mmol/L [facility] BUN 19 6 - 25 mg/dL [facility] Creatinine 0.81 0.80 - 1.30 mg/dL [facility] Glucose 105 70 - 199 mg/dL [facility] Comment: Interpretive Data Fasting glucose >/= 126 [...] 2022. Calcium 8.3(L) 8.5 - 10.3 mg/dL [facility] Phosphorus, pl 2.3 2.3 - 4.5 mg/dL [facility] Albumin 3.2(L) 3.5 - 5.0 g/dL [facility] Blood 07/14/2023 1:34 AM CDT 07/14/2023 1:34 AM CDT Kalen Rivera [facility] LAB BLOOD ORDERABLES Final Result [facility] [address] [place] [address] * (ABNORMAL) CBC without differential (07/14/2023 1:34 AM CDT) WBC 11.1(H) 3.8 - 9.9 K/cumm [facility] Hgb 10.4(L) 13.0 - 17.5 g/dL [facility] Hct 31.1(L) 38.9 - 50.3 % [facility] Plt 145(L) 150 - 400 K/cumm [facility] MPV 9.5 9.1 - 12.3 fL [facility] RBC 3.14(L) 4.30 - 5.80 M/cumm [facility] MCV 99.0(H) 81.3 - 96.4 fL [facility] MCH 33.1 27.1 - 33.3 pg [facility] MCHC 33.4 32.3 - 35.7 g/dL [facility] RDW CV 13.4 11.1 - 14.9 % [facility] RDW SD 48.2(H) 35.7 - 48.1 fL [facility] NRBC abs 0.02(H) 0.00 - 0.01 K/cumm [facility] Blood 07/14/2023 1:34 AM CDT 07/14/2023 1:34 AM CDT Kalen Rivera [facility] LAB BLOOD ORDERABLES Final Result Performing Organization Address City/[facility]/ZIP Co de Phone Number [facility] [address] [place] [address] * (ABNORMAL) Calcium, ionized (07/14/2023 1:31 AM CDT) Calcium, Ionized 4.33(L) 4.50 - 5.10 mg/dL [facility] Blood 07/14/2023 1:31 AM CDT 07/14/2023 1:31 AM CDT [facility]AB[facility] Final Result Performing Organization Address [facility] Co de Phone Number [facility] [address] Department [place] [address] * XR Chest 1 View - Portable [...] CDT) eGFR 89 mL/min/1. 73 m2 [facility] Comment: Interpretive Data Reference Interval Normal ?>/= [...] Rivera DNP LAB BLOOD ORDERABLES Final Result [facility] [address] Department [place] [address] * Magnesium (07/13/2023 12:49 AM CDT) Pathologist [facility] Magnesium 1.9 1.4 - 2.5 mg/dL [facility] Blood 07/13/2023 12:4 9 AM CDT 07/13/2023 1:06 AM CDT Kalen Rivera [facility] LAB BLOOD ORDERABLES Final Result Performing Organization Address City/[facility]/ZIP Co de Phone Number [facility] [address] [facility] [place] [address] * (ABNORMAL) Calcium, ionized (07/13/2023 12:49 AM CDT) [facility] Calcium, Ionized 4.46(L) 4.50 - 5.10 mg/dL [facility] Blood 07/13/2023 12:4 9 AM CDT 07/13/2023 1:03 AM CDT Kalen Rivera [facility] LAB BLOOD ORDERABLES Final Result Performing Organization Address City/[facility]/ZIP Co de Phone Number [facility] [address] [place] [address] * (ABNORMAL) Renal function panel (07/13/2023 12:49 AM CDT) [facility] Sodium 132(L) 135 - 145 mmol/L [facility] Potassium, pl 3.8 3.3 - 4.9 mmol/L [facility] Chloride 97 97 - 110 mmol/L [facility] CO2 26 22 - 32 mmol/L [facility] Anion gap 9 2 - 15 mmol/L [facility] BUN 17 6 - 25 mg/dL [facility] Creatinine 0.87 0.80 - 1.30 mg/dL [facility] Glucose 128 70 - 199 mg/dL [facility] Comment: Interpretive Data Fasting glucose >/= 126 [...] 2022. Calcium 8.5 8.5 - 10.3 mg/dL [facility] Phosphorus, pl 1.6(L) 2.3 - 4.5 mg/dL [facility] Albumin 3.4(L) 3.5 - 5.0 g/dL [facility] Blood 07/13/2023 12:4 9 AM CDT 07/13/2023 1:06 AM CDT us Kalen Rivera [facility] LAB BLOOD ORDERABLES Final Result [facility] [address] Department of Laboratories [place], [place] [phone] * (ABNORMAL) CBC without differential (07/13/2023 12:49 AM CDT) WBC 10.4(H) 3.8 - 9.9 K/cumm [facility] Hgb 10.4(L) 13.0 - 17.5 g/dL [facility] Hct 30.1(L) 38.9 - 50.3 % [facility] Plt 115(L) 150 - 400 K/cumm [facility] MPV 9.6 9.1 - 12.3 fL [facility] RBC 3.13(L) 4.30 - 5.80 M/cumm [facility] MCV 96.2 81.3 - 96.4 fL [facility] MCH 33.2 27.1 - 33.3 pg [facility] MCHC 34.6 32.3 - 35.7 g/dL [facility] RDW CV 13.2 11.1 - 14.9 % [facility] RDW SD 45.8 35.7 - 48.1 fL [facility] NRBC abs 0.00 0.00 - 0.01 K/cumm [facility] Blood 07/13/2023 12:4 9 AM CDT 07/13/2023 1:07 AM CDT Kalen Rivera DNP LAB BLOOD ORDERABLES Final Result Performing Organization Address [facility]/ZIP Co de Phone Number [facility] [address] Department [place] [address] * POCT glucose (07/12/2023 12:07 PM CDT) Glucose, POC 105 70 - 140 mg/dL [facility] Comment: For Glucose values <35 mg/dl when Hematocrit is >60 mg/dl,the test may not accurately detect significant hypoglycemia,and testing in the Laboratory should be considered if clinically indicated. Blood 07/12/2023 12:0 7 PM CDT 07/12/2023 12:07 PM CDT Result [facility] Keaton Lynn MD LAB POCT ORDERABLES - DE VICE Final Result Performing Organization Address [facility] Co de Phone Number [facility] [address] [facility] [place] [address] * POCT glucose (07/12/2023 8:20 AM CDT) Glucose, POC 118 70 - 140 mg/dL [facility] Comment: For Glucose values <35 mg/dl when Hematocrit is >60 mg/dl,the test may not accurately detect significant hypoglycemia,and testing in the Laboratory should be considered if clinically indicated. Blood 07/12/2023 8:20 AM CDT 07/12/2023 8:20 AM CDT Keaton Lynn MD LAB POCT ORDERABLES - DE VICE Final Result Performing Organization Address [facility] Co de Phone Number [facility] [address] [place] [address] * XR Chest 1 View - Portable [...] signed by: Kilo Rosario M.D. Kalen Rivera [facility] IMG XR PROCEDURES Fi nal Result * ECG 12 lead (07/12/2023 2:01 AM CDT) 07/12/2023 2:01 AM CDT Narrative [facility] - 07/12/2023 5:01 PM CDT Vent Rate: 87 bpm RR Interval: 683 msec MA Interval: 126 msec QRS Duration: 100 msec QT Interval: 373 msec QTC Interval: 418 msec P-R-T [place]: 0 - -28 - 38 degrees IMPRESSION: SINUS RHYTHM WITH SINUS ARRHYTHMIA BORDERLINE LEFT AXIS DEVIATION BORDERLINE ECG Electronically Signed By: Rory Dowling MD [facility] us Kathryn Richey [facility] ECG ORDERABLES Final Res ult [facility] * eGFR (07/12/2023 12:25 AM CDT) eGFR 76 mL/min/1. 73 m2 SANDEEP [facility] Comment: Interpretive Data Reference Interval Normal ?>/= [...] 07/12/2023 12:39 AM CDT us Kalen Rivera [facility] LAB BLOOD ORDERABLES Final Result Performing Organization Address City/[facility]/ZIP Co de Phone Number [facility] [address] [facility] [place] [address] * Magnesium (07/12/2023 12:25 AM CDT) [facility] Magnesium 2.4 1.4 - 2.5 mg/dL [facility] Comment:Reviewed Blood 07/12/2023 12:2 5 AM CDT 07/12/2023 12:39 AM CDT Kalen Rivera [facility] LAB BLOOD ORDERABLES Final Result Performing Organization Address [facility] Co de Phone Number [facility] [address] [place] [address] * Calcium, ionized (07/12/2023 12:25 AM CDT) [facility] Calcium, Ionized 4.59 4.50 - 5.10 mg/dL [facility] Blood 07/12/2023 12:2 5 AM CDT 07/12/2023 12:33 AM CDT Kalen Rivera [facility] LAB BLOOD ORDERABLES Final Result Performing Organization Address City/[facility]/ZIP Co de Phone Number [facility] [address] [place] [address] * (ABNORMAL) Renal function panel (07/12/2023 12:25 AM CDT) [facility] Sodium 133(L) 135 - 145 mmol/L [facility] Potassium, pl 4.2 3.3 - 4.9 mmol/L [facility] Chloride 98 97 - 110 mmol/L [facility] CO2 25 22 - 32 mmol/L [facility] Anion gap 10 2 - 15 mmol/L [facility] BUN 20 6 - 25 mg/dL [facility] Creatinine 1.02 0.80 - 1.30 mg/dL [facility] Glucose 119 70 - 199 mg/dL [facility] Comment: Interpretive Data Fasting glucose >/= 126 [...] 2022. Calcium 8.6 8.5 - 10.3 mg/dL [facility] Phosphorus, pl 2.7 2.3 - 4.5 mg/dL [facility] Albumin 3.2(L) 3.5 - 5.0 g/dL [facility] Blood 07/12/2023 12:2 5 AM CDT 07/12/2023 12:39 AM CDT Kalen Rivera [facility] LAB BLOOD ORDERABLES Final Result [facility] [address] Department [place] [address] * (ABNORMAL) CBC without differential (07/12/2023 12:25 AM CDT) WBC 12.0(H) 3.8 - 9.9 K/cumm [facility] Hgb 11.0(L) 13.0 - 17.5 g/dL [facility] Hct 32.8(L) 38.9 - 50.3 % [facility] Plt 129(L) 150 - 400 K/cumm [facility] MPV 9.9 9.1 - 12.3 fL [facility] RBC 3.32(L) 4.30 - 5.80 M/cumm [facility] MCV 98.8(H) 81.3 - 96.4 fL [facility] MCH 33.1 27.1 - 33.3 pg [facility] MCHC 33.5 32.3 - 35.7 g/dL [facility] RDW CV 13.4 11.1 - 14.9 % [facility] RDW SD 48.3(H) 35.7 - 48.1 fL [facility] NRBC abs 0.00 0.00 - 0.01 K/cumm [facility] Blood 07/12/2023 12:2 5 AM CDT 07/12/2023 12:40 AM CDT Kalen Rivera DNP LAB BLOOD ORDERABLES Final Result Performing Organization Address [facility] Co de Phone Number [facility] [address] Department of [employer] [place], [place] [phone] * POCT glucose (07/11/2023 9:24 PM CDT) [facility] Glucose, POC 124 70 - 140 mg/dL [facility] Comment: For Glucose values <35 mg/dl when Hematocrit is >60 mg/dl,the test may not accurately detect significant hypoglycemia,and testing in the Laboratory should be considered if clinically indicated. Blood 07/11/2023 9:24 PM CDT 07/11/2023 9:24 PM CDT Keaton Lynn MD LAB POCT ORDERABLES - DE VICE Final Result Performing Organization Address [facility] Co de Phone Number [facility] [address] [place] [address] * eGFR (07/11/2023 8:25 PM CDT) Pathologist [facility] eGFR 83 mL/min/1. 73 m2 [facility] Comment: Interpretive Data Reference Interval Normal ?>/= [...] CDT 07/11/2023 8:30 PM CDT Kathryn Richey [facility] LAB BLOOD ORDERABLES Harriet l Result Performing Organization Address City/[facility]/ZIP Co de Phone Number [facility] [address] Department [place] [address] * Magnesium (07/11/2023 8:25 PM CDT) Magnesium 1.9 1.4 - 2.5 mg/dL [facility] Blood 07/11/2023 8:25 PM CDT 07/11/2023 8:30 PM CDT Kathryn Richey [facility] LAB BLOOD ORDERABLES Harriet l Result Performing Organization Address City/[facility]/ZIP Co de Phone Number [facility] [address] Department [employer] [place], [place] [phone] * (ABNORMAL) Renal function panel (07/11/2023 8:25 PM CDT) Sodium 133(L) 135 - 145 mmol/L [facility] Potassium, pl 4.2 3.3 - 4.9 mmol/L [facility] Chloride 99 97 - 110 mmol/L [facility] CO2 27 22 - 32 mmol/L [facility]) Anion gap 7 2 - 15 mmol/L [facility] BUN 20 6 - 25 mg/dL [facility] Creatinine 0.94 0.80 - 1.30 mg/dL [facility] Glucose 119 70 - 199 mg/dL [facility] Comment: Interpretive Data Fasting glucose >/= 126 [...] 2022. Calcium 8.7 8.5 - 10.3 mg/dL [facility] Phosphorus, pl 2.9 2.3 - 4.5 mg/dL [facility] Albumin 3.3(L) 3.5 - 5.0 g/dL [facility] Blood 07/11/2023 8:25 PM CDT 07/11/2023 8:30 PM CDT us Kathryn Richey NP LAB BLOOD ORDERABLES Harriet lim Result [facility] [address] Department [place] [address] * POCT glucose (07/11/2023 5:16 PM CDT) [facility] Glucose, POC 114 70 - 140 mg/dL [facility] Comment: For Glucose values <35 mg/dl when Hematocrit is >60 mg/dl,the test may not accurately detect significant hypoglycemia,and testing in the Laboratory should be considered if clinically indicated. Blood 07/11/2023 5:16 PM CDT 07/11/2023 5:16 PM CDT us Keaton Lynn MD LAB POCT ORDERABLES - DE VICE Final Result Performing Organization Address [facility] Co de Phone Number [facility] [address] [facility] [employer] [place], [place] [phone] * POCT glucose (07/11/2023 11:10 AM CDT) Glucose, POC 138 70 - 140 mg/dL [facility] Comment: For Glucose values <35 mg/dl when Hematocrit is >60 mg/dl,the test may not accurately detect significant hypoglycemia,and testing in the Laboratory should be considered if clinically indicated. Blood 07/11/2023 11:1 0 AM CDT 07/11/2023 11:10 AM CDT us Keaton Lynn MD LAB POCT ORDERABLES - DE VICE Final Result Performing Organization Address [facility] [[email or web address]] de Phone Number [facility] [address] [facility] [place] [address] * Lactate (07/11/2023 11:06 AM CDT) [facility] Lactate 1.4 0.7 - 2.0 mmol/L [facility] Blood 07/11/2023 11:0 6 AM CDT 07/11/2023 11:15 AM CDT us Kalen Rivera DNP LAB BLOOD ORDERABLES Final Result Performing Organization Address [facility] Co de Phone Number [facility] [address] [facility] [employer] [place], [place] [phone] * Critical Care (07/11/2023 9:27 AM CDT) Narrative Kalen Rivera DNP - 07/11/2023 9:27 AM CDT Kalen Rivera DNP ? 07/11/2023 12:23 PM Critical Care Performed by: Kalen Rivera DNP Authorized by: Kalen Rivera DNP ?? CRITICAL CARE: ??Team: ??[facility] CT ??Shift: ??AM ??Level of Billing: ??Subsequent [...] plan with the patient's team and other medical/sap treasury consultant staff. This time was in addition to and separate from care provided by other practitioners on this day of service. ?? Result [facility] Kalen Rivera DNP IN CLINIC/BEDSIDE OR DERABLES Final Result * (ABNORMAL) POCT glucose (07/11/2023 7:53 AM CDT) Glucose, POC 141(H) 70 - 140 mg/dL [facility] Comment: For Glucose values <35 mg/dl when Hematocrit is >60 mg/dl,the test may not accurately detect significant hypoglycemia,and testing in the Laboratory should be considered if clinically indicated. Blood 07/11/2023 7:53 AM CDT 07/11/2023 7:53 AM CDT Result [facility] Keaton Lynn MD LAB POCT ORDERABLES - DE VICE Final Result [facility] [address] Department [place] [address] * POCT glucose (07/11/2023 6:15 AM CDT) Glucose, POC 117 70 - 140 mg/dL [facility] Comment: For Glucose values <35 mg/dl when Hematocrit is >60 mg/dl,the test may not accurately detect significant hypoglycemia,and testing in the Laboratory should be considered if clinically indicated. Blood 07/11/2023 6:15 AM CDT 07/11/2023 6:15 AM CDT Result [facility] Keaton Lynn MD LAB POCT ORDERABLES - DE VICE Final Result SANDEEP [facility] [address] Department [place] [address] * XR Chest 1 View - Portable - in AM (07/11/2023 5:53 AM CDT) Anatomical Region Laterality Modality Body, Chest N/A Computed Radiogr aphy 07/11/2023 8:15 AM CDT Impressions 07/11/2023 8:15 AM CDT There has been interval extubation and gastric tube removal. ??A right internal jugular [place]-Jered catheter has been removed. ??A right internal [...] gastric tube removal. A right internal jugular [place]-Jered catheter has been removed. A right internal [...] Glucose, POC 133 70 - 140 mg/dL [facility] Comment: For Glucose values <35 mg/dl when Hematocrit is >60 mg/dl,the test may not accurately detect significant hypoglycemia,and testing in the Laboratory should be considered if clinically indicated. Blood 07/11/2023 4:32 AM CDT 07/11/2023 4:32 AM CDT Keaton Lynn MD LAB POCT ORDERABLES - DE VICE Final Result Performing Organization Address [facility] Co de Phone Number [facility] [address] [employer] [place], [place] [phone] * (ABNORMAL) POCT glucose (07/11/2023 2:39 AM CDT) [facility] Glucose, POC 162(H) 70 - 140 mg/dL [facility] Comment: For Glucose values <35 mg/dl when Hematocrit is >60 mg/dl,the test may not accurately detect significant hypoglycemia,and testing in the Laboratory should be considered if clinically indicated. Blood 07/11/2023 2:39 AM CDT 07/11/2023 2:39 AM CDT Keaton Lynn MD LAB POCT ORDERABLES - DE VICE Final Result Performing Organization Address City/[facility]/ZIP Co de Phone Number [facility] [address] Department [employer] [place], [place] [phone] * Prepare RBC (07/11/2023 1:47 AM CDT) Pathologist [facility] Product code [id number] [facility] Unit Number [id number] 6-0 [facility] Product Blood Type OPOS [facility]) Dispense Status RETURNED [facility] Product code [id number] [facility] Unit Number [id number] 4-I [facility] Product Blood Type OPOS [facility] Dispense Status RETURNED [facility] Product code [id number] [facility] Unit Number [id number] 5-2 [facility] Product Blood Type OPOS [facility]) Dispense Status RETURNED [facility] Product code [id number] [facility] Unit Number [id number] 7-* [facility] Product Blood Type OPOS [facility] Dispense Status RETURNED [facility] Blood 07/11/2023 1:47 AM CDT 07/11/2023 1:47 AM CDT us Keaton Lynn MD BLOOD BANK PRODUCT ORDER EMELYN Final Result [facility] [address] Department [place] [address] * eGFR (07/11/2023 12:52 AM CDT) eGFR 89 mL/min/1. 73 m2 [facility] Comment: Interpretive Data Reference Interval Normal ?>/= [...] CDT 07/11/2023 1:01 AM CDT Kalen Rivera [facility] LAB BLOOD ORDERABLES Final Result Performing Organization Address City/[facility]/ZIP Co de Phone Number [facility] [address] [facility] [employer] [place], [place] [phone] * (ABNORMAL) Lactate (07/11/2023 12:52 AM CDT) Lactate 3.1(H) 0.7 - 2.0 mmol/L [facility] Blood 07/11/2023 12:5 2 AM CDT 07/11/2023 12:58 AM CDT Laquita Parson [facility] LAB BLOOD ORDERABLES Harriet l Result Performing Organization Address [facility] Co de Phone Number [facility] [address] [facility] [employer] [place], [place] [phone] * Magnesium (07/11/2023 12:52 AM CDT) Magnesium 2.1 1.4 - 2.5 mg/dL [facility] Blood 07/11/2023 12:5 2 AM CDT 07/11/2023 1:01 AM CDT Kalen Rivera [facility] LAB BLOOD ORDERABLES Final Result Performing Organization Address City/[facility] Co de Phone Number [facility] [address] [facility] [employer] [place], [place] [phone] * (ABNORMAL) Calcium, ionized (07/11/2023 12:52 AM CDT) Calcium, Ionized 4.39(L) 4.50 - 5.10 mg/dL [facility] Blood 07/11/2023 12:5 2 AM CDT 07/11/2023 12:58 AM CDT Kalen Rivera [facility] LAB BLOOD ORDERABLES Final Result [facility] [address] Department [place] [address] * (ABNORMAL) Renal function panel (07/11/2023 12:52 AM CDT) Pathologist [facility] Sodium 141 135 - 145 mmol/L [facility] Potassium, pl 4.6 3.3 - 4.9 mmol/L [facility] Chloride 107 97 - 110 mmol/L [facility] CO2 23 22 - 32 mmol/L [facility]) Anion gap 11 2 - 15 mmol/L [facility] BUN 18 6 - 25 mg/dL [facility] Creatinine 0.87 0.80 - 1.30 mg/dL [facility] Glucose 176 70 - 199 mg/dL [facility] Comment: Interpretive Data Fasting glucose >/= 126 [...] 2022. Calcium 8.3(L) 8.5 - 10.3 mg/dL [facility] Phosphorus, pl 3.5 2.3 - 4.5 mg/dL [facility] Albumin 3.4(L) 3.5 - 5.0 g/dL [facility] Blood 07/11/2023 12:5 2 AM CDT 07/11/2023 1:01 AM CDT Kalen Rivera [facility] LAB BLOOD ORDERABLES Final Result Performing Organization Address [facility]/ZIP Co de Phone Number [facility] [address] Department [place] [address] * (ABNORMAL) CBC without differential (07/11/2023 12:52 AM CDT) WBC 8.7 3.8 - 9.9 K/cumm [facility] Hgb 10.8(L) 13.0 - 17.5 g/dL [facility] Hct 31.8(L) 38.9 - 50.3 % [facility] Plt 119(L) 150 - 400 K/cumm [facility] MPV 9.7 9.1 - 12.3 fL [facility] RBC 3.25(L) 4.30 - 5.80 M/cumm [facility] MCV 97.8(H) 81.3 - 96.4 fL [facility] MCH 33.2 27.1 - 33.3 pg [facility] MCHC 34.0 32.3 - 35.7 g/dL [facility] RDW CV 13.3 11.1 - 14.9 % [facility] RDW SD 47.7 35.7 - 48.1 fL [facility] NRBC abs 0.00 0.00 - 0.01 K/cumm [facility] Blood 07/11/2023 12:5 2 AM CDT 07/11/2023 1:01 AM CDT Kalen Rivera [facility] LAB BLOOD ORDERABLES Final Result Performing Organization Address City/[facility]/ZIP Co de Phone Number [facility] [address] [place] [address] * Type and screen (07/11/2023 12:52 AM CDT) Pathologist [facility] [place], indirect Negative [facility] ABO Rh O Positive [facility] Blood 07/11/2023 12:5 2 AM CDT 07/11/2023 12:59 AM CDT Narrative [facility] - 07/11/2023 1:44 AM CDT Has the patient had Daratumumab or Isatuximab in the past 6 months?->Unknown Result [facility] Kalen Rivera [facility] LAB BLOOD BANK TEST ORDERABLES Final Result Performing Organization Address City/[facility]/ZIP Co de Phone Number [facility] [address] Department [place] [address] * (ABNORMAL) POCT glucose (07/11/2023 12:50 AM CDT) Glucose, POC 176(H) 70 - 140 mg/dL [facility] Comment: For Glucose values <35 mg/dl when Hematocrit is >60 mg/dl,the test may not accurately detect significant hypoglycemia,and testing in the Laboratory should be considered if clinically indicated. Blood 07/11/2023 12:5 0 AM CDT 07/11/2023 12:50 AM CDT Result [facility] Keaton Lynn MD LAB POCT ORDERABLES - DE VICE Final Result Performing Organization Address [facility] Co de Phone Number [facility] [address] [place] [address] * (ABNORMAL) POCT glucose (07/11/2023 12:08 AM CDT) Glucose, POC 147(H) 70 - 140 mg/dL [facility] Comment: For Glucose values <35 mg/dl when Hematocrit is >60 mg/dl,the test may not accurately detect significant hypoglycemia,and testing in the Laboratory should be considered if clinically indicated. Blood 07/11/2023 12:0 8 AM CDT 07/11/2023 12:08 AM CDT Result [facility] Keaton Lynn MD LAB POCT ORDERABLES - DE VICE Final Result Performing Organization Address [facility]/ZIP Co de Phone Number [facility] [address] [place] [address] * (ABNORMAL) POCT glucose (07/10/2023 11:13 PM CDT) Glucose, POC 177(H) 70 - 140 mg/dL [facility] Comment: For Glucose values <35 mg/dl when Hematocrit is >60 mg/dl,the test may not accurately detect significant hypoglycemia,and testing in the Laboratory should be considered if clinically indicated. Blood 07/10/2023 11:1 3 PM CDT 07/10/2023 11:13 PM CDT Keaton Lynn MD LAB POCT ORDERABLES - DE VICE Final Result Performing Organization Address [facility] Co de Phone Number [facility] [address] [facility] [employer] [place], [place] [phone] * (ABNORMAL) POCT glucose (07/10/2023 8:36 PM CDT) Glucose, POC 163(H) 70 - 140 mg/dL [facility] Comment: For Glucose values <35 mg/dl when Hematocrit is >60 mg/dl,the test may not accurately detect significant hypoglycemia,and testing in the Laboratory should be considered if clinically indicated. Blood 07/10/2023 8:36 PM CDT 07/10/2023 8:36 PM CDT Keaton Lynn MD LAB POCT ORDERABLES - DE VICE Final Result Performing Organization Address [facility] Co de Phone Number [facility] [address] [facility] [place] [address] * Oxyhemoglobin, central venous (07/10/2023 8:32 PM CDT) Oxyhemoglobin, CV 72.8 % [facility] Comment: Interpretive Data No reference range established. Current interpretive data was last revised 2019. Blood 07/10/2023 8:32 PM CDT 07/10/2023 8:41 PM CDT Kalen Rivera DNP LAB BLOOD ORDERABLES Final Result Performing Organization Address City/State/[facility] Co de Phone Number [facility] [address] Department [place] [address] * Critical Care (07/10/2023 6:36 PM CDT) Narrative Laquita Parson NP - 07/10/2023 6:36 PM CDT Laquita Parson NP ? 07/11/2023 ??3:32 AM Critical Care Performed by: Laquita Parson NP Authorized by: Laquita Parson NP ?? CRITICAL CARE: ??Team: ??[facility] ??Shift: ??PM ??Level of Billing: ??Subsequent [...] plan with the patient's team and other medical/sap treasury consultant staff. This time was in addition to and separate from care provided by other practitioners on this day of service. ? I spent time documenting in the medical record, I spent time discussing the management of this critically ill patient with consultants and the medical staff and I spent time reviewing and interpreting data from bedside monitors, laboratory results, and imaging Result [facility] Laquita Parson [place] [facility]/BEDSIDE ORDERAB LES Final Result * (ABNORMAL) POCT glucose (07/10/2023 6:34 PM CDT) [facility] Glucose, POC 155(H) 70 - 140 mg/dL [facility] Comment: For Glucose values <35 mg/dl when Hematocrit is >60 mg/dl,the test may not accurately detect significant hypoglycemia,and testing in the Laboratory should be considered if clinically indicated. Blood 07/10/2023 6:34 PM CDT 07/10/2023 6:34 PM CDT Result [facility] Keaton Lynn MD LAB POCT ORDERABLES - DE VICE Final Result [facility] [address] Department [place] [address] * Critical Care (07/10/2023 6:04 PM CDT) Narrative Kalen Rivera DNP - 07/10/2023 6:04 PM CDT Kalen Rivera DNP ? 07/10/2023 ??6:56 PM Critical Care Performed by: Kalen Rivera DNP Authorized by: Kalen Rivera DNP ?? CRITICAL CARE: ??Team: ??[facility] ??Shift: ??AM ??Level of Billing: ??Critical [...] plan with the ICU team and other medical/sap treasury consultant staff, making frequent assessments and decisions [...] PM CDT) eGFR 80 mL/min/1. 73 m2 [facility] Comment: Interpretive Data Reference Interval Normal ?>/= [...] Rivera DNP LAB BLOOD ORDERABLES Final Result [facility] [address] Department [place] [address] * (ABNORMAL) POCT glucose (07/10/2023 4:26 PM CDT) [facility] Glucose, POC 153(H) 70 - 140 mg/dL [facility] Comment: For Glucose values <35 mg/dl when Hematocrit is >60 mg/dl,the test may not accurately detect significant hypoglycemia,and testing in the Laboratory should be considered if clinically indicated. Blood 07/10/2023 4:26 PM CDT 07/10/2023 4:26 PM CDT Keaton Lynn MD LAB POCT ORDERABLES - DE VICE Final Result Performing Organization Address [facility] Co de Phone Number [facility] [address] [facility] [place] [address] * aPTT (07/10/2023 4:26 PM CDT) aPTT 30 28 - 38 sec [facility] Comment: Interpretive Data Therapeutic heparin range: 60.0 - 94.0 seconds. Based on correlation with therapeutic heparin activity range of 0.3-0.7 Units/mL. Current interpretive data was last revised on 2020. Blood 07/10/2023 4:26 PM CDT 07/10/2023 4:34 PM CDT Kalen Rivera DNP LAB BLOOD ORDERABLES Final Result Performing Organization Address [facility] Co de Phone Number [facility] [address] [facility] [place] [address] * (ABNORMAL) Protime-INR (07/10/2023 4:26 PM CDT) PT 14.2(H) 10.3 - 13.7 sec [facility] INR 1.25(H) 0.90 - 1.20 [facility] Comment: Interpretive data Oral anticoagulant therapeutic ranges: Venous thromboembolism prophylaxis or treatment: 2.0-3.0 CARDIOLOGY Standard range: 2.0-3.0 High-intensity range: 2.5-3.5 Refer to indication-specific guidelines for appropriate target ranges for prosthetic heart valve replacement. Current interpretive data was last revised on 2019. Blood 07/10/2023 4:26 PM CDT 07/10/2023 4:34 PM CDT Kalen Rivera DNP LAB BLOOD ORDERABLES Final Result Performing Organization Address [facility] Co de Phone Number [facility] [address] [facility] [place] [address] * (ABNORMAL) CBC without differential (07/10/2023 4:26 PM CDT) [facility] WBC 8.2 3.8 - 9.9 K/cumm [facility] Hgb 10.7(L) 13.0 - 17.5 g/dL [facility] Hct 30.8(L) 38.9 - 50.3 % [facility] Plt 106(L) 150 - 400 K/cumm [facility] MPV 9.5 9.1 - 12.3 fL [facility] RBC 3.19(L) 4.30 - 5.80 M/cumm [facility] MCV 96.6(H) 81.3 - 96.4 fL [facility] MCH 33.5(H) 27.1 - 33.3 pg [facility] MCHC 34.7 32.3 - 35.7 g/dL [facility] RDW CV 13.2 11.1 - 14.9 % [facility] RDW SD 46.3 35.7 - 48.1 fL [facility] NRBC abs 0.00 0.00 - 0.01 K/cumm [facility] Blood 07/10/2023 4:26 PM CDT 07/10/2023 4:34 PM CDT Kalen Rivera [facility] LAB BLOOD ORDERABLES Final Result [facility] [address] Department of Laboratories [place], [place] [id number] * (ABNORMAL) Blood gas, arterial (07/10/2023 4:26 PM CDT) [facility] pH, Art 7.40 7.35 - 7.45 [facility] PCO2, Arterial 43 35 - 45 mmHg [facility] PO2, Arterial 155(H) 83 - 108 mmHg [facility] HCO3 Art (Calculated) 27 20 - 30 mmol/L [facility] BE, art 2 mmol/L [facility] Comment: Interpretive Data No Reference Range Established Current Interpretive Data was last revised on 2017 O2 Sat Art (Calculated) 99(H) 94 - 98 % [facility] Blood 07/10/2023 4:26 PM CDT 07/10/2023 4:34 PM CDT Kalen Rivera [facility] LAB BLOOD ORDERABLES Final Result Performing Organization Address [facility] Co de Phone Number [facility] [address] [facility] [place] [address] * Calcium, ionized (07/10/2023 4:26 PM CDT) Calcium, Ionized 5.10 4.50 - 5.10 mg/dL [facility] Blood 07/10/2023 4:26 PM CDT 07/10/2023 4:33 PM CDT Kalen Rivera [facility] LAB BLOOD ORDERABLES Final Result Performing Organization Address [facility] Co de Phone Number [facility] [address] [place] [address] * (ABNORMAL) Magnesium (07/10/2023 4:26 PM CDT) Pathologist [facility] Magnesium 2.7(H) 1.4 - 2.5 mg/dL [facility] Blood 07/10/2023 4:26 PM CDT 07/10/2023 4:34 PM CDT Kalen Rivera [facility] LAB BLOOD ORDERABLES Final Result Performing Organization Address [facility] Co de Phone Number [facility] [address] [facility] [place] [address] * Basic metabolic panel (07/10/2023 4:26 PM CDT) Sodium 143 135 - 145 mmol/L [facility] Potassium, pl 4.1 3.3 - 4.9 mmol/L [facility] Comment:Hemolyzed; potassium value may be falsely elevated by as much as 0.3 - 0.5 mmol/L. Suggest redraw and reanalysis Chloride 108 97 - 110 mmol/L [facility] CO2 28 22 - 32 mmol/L [facility] Anion gap 7 2 - 15 mmol/L [facility] BUN 17 6 - 25 mg/dL [facility] Creatinine 0.97 0.80 - 1.30 mg/dL [facility] Glucose 151 70 - 199 mg/dL [facility] Comment: Interpretive Data Fasting glucose >/= 126 [...] 2022. Calcium 9.4 8.5 - 10.3 mg/dL [facility] Blood 07/10/2023 4:26 PM CDT 07/10/2023 4:34 PM CDT Kalen Rivera [facility] LAB BLOOD ORDERABLES Final Result Performing Organization Address City/[facility]/ZIP Co de Phone Number [facility] [address] [place] [address] * (ABNORMAL) Phosphorus (07/10/2023 4:26 PM CDT) [facility] Phosphorus, pl 4.7(H) 2.3 - 4.5 mg/dL [facility] Blood 07/10/2023 4:26 PM CDT 07/10/2023 4:34 PM CDT Kalen Rivera [facility] LAB BLOOD ORDERABLES Final Result [facility] [address] [place] [address] * REPAIR ANEURYSM ASCENDING AORTIC (07/10/2023 4:11 PM CDT) Anatomical Region Laterality Modality X-Ray Angiograph y Narrative 07/10/2023 4:12 PM CDT Please see OpNote for result. Keaton Lynn MD SURGICAL CASE ORDERS Fin al Result * (ABNORMAL) Protime-INR (07/10/2023 4:02 PM CDT) PT 14.8(H) 10.3 - 13.7 sec [facility] INR 1.30(H) 0.90 - 1.20 [facility] Comment: Interpretive data Oral anticoagulant therapeutic ranges: Venous thromboembolism prophylaxis or treatment: 2.0-3.0 CARDIOLOGY Standard range: 2.0-3.0 High-intensity range: 2.5-3.5 Refer to indication-specific guidelines for appropriate target ranges for prosthetic heart valve replacement. Current interpretive data was last revised on 2019. Blood 07/10/2023 4:02 PM CDT 07/10/2023 4:02 PM CDT Keaton Lynn MD LAB BLOOD ORDERABLES Fin al Result Performing Organization Address [facility]/ZIP Co de Phone Number [facility] [address] Department [place] [address] * Fibrinogen (07/10/2023 4:02 PM CDT) Pathologist [facility] Fibrinogen 182 170 - 400 mg/dL [facility] Blood 07/10/2023 4:02 PM CDT 07/10/2023 4:02 PM CDT Keaton Lynn MD LAB BLOOD ORDERABLES Fin al Result Performing Organization Address [facility]/ZIP Co de Phone Number [facility] [address] [place] [address] * aPTT (07/10/2023 4:02 PM CDT) Pathologist [facility] aPTT 33 28 - 38 sec [facility] Comment: Interpretive Data Therapeutic heparin range: 60.0 - 94.0 seconds. Based on correlation with therapeutic heparin activity range of 0.3-0.7 Units/mL. Current interpretive data was last revised on 2020. Blood 07/10/2023 4:02 PM CDT 07/10/2023 4:02 PM CDT Keaton Lynn MD LAB BLOOD ORDERABLES Fin al Result [facility] [address] Department [place] [address] * (ABNORMAL) CBC without differential (07/10/2023 4:01 PM CDT) [facility] WBC 9.5 3.8 - 9.9 K/cumm [facility] Hgb 9.4(L) 13.0 - 17.5 g/dL [facility] Hct 26.9(L) 38.9 - 50.3 % [facility] Plt 112(L) 150 - 400 K/cumm [facility] MPV 9.7 9.1 - 12.3 fL [facility] RBC 2.77(L) 4.30 - 5.80 M/cumm [facility] MCV 97.1(H) 81.3 - 96.4 fL [facility] MCH 33.9(H) 27.1 - 33.3 pg [facility] MCHC 34.9 32.3 - 35.7 g/dL [facility] RDW CV 13.1 11.1 - 14.9 % [facility] RDW SD 45.9 35.7 - 48.1 fL [facility] NRBC abs 0.00 0.00 - 0.01 K/cumm [facility] Blood 07/10/2023 4:01 PM CDT 07/10/2023 4:01 PM CDT Keaton Lynn MD LAB BLOOD ORDERABLES Fin al Result [facility] [address] Department [place] [address] * Surgical pathology (07/10/2023 3:59 PM CDT) Tissue (Aorta) 07/10/2023 1: 29 PM CDT Comment:Placed in formalin p ost procedure. Narrative PATHOLOGY [facility] - 07/12/2023 12:51 PM CDT [facility] [address] [facility], [place], [place] ??[address] Tele: ?? Pinky Morfin MD - Scheduling Specialist Note to Patients: This report may contain [...] Name: ??JOHN NOLASCOCLEO Pepper Address: ??[address] [place], [place] ??[address] Gender: ??M : ??1945 (Age: 77) Service: ??Cardiothoracic Location: ??[id number], ?? Hospital #: ??[id number] Patient Type: ??[facility] Accession #: ? [id number] Taken: ? 07/10/2023 Received ? 07/11/2023 Reported: [...] separation of vessel wall are grossly identified. ??Lasting Floorworker sections are submitted in A1. ?? jxi/07/11/2023 07:52 ? JAP,JXI MICROSCOPIC DESCRIPTION: Sections from the aorta show mild degenerative changes within the wall without distinct medial necrosis or aortitis. ??Some recent hemorrhage is seen in the adventitial connective tissue and a focus of peripheral nerve tissue is noted. Clerical Data Follows A; [id number] REPORT IMAGES AND/OR SCANNED DOCUMENTS ONLY VIEWABLE IN PDF FORMAT The immunohistochemical test(s) cited in this report, if any, was developed and its performance characteristics determined by [facility] Pathology Department. ??It has not been cleared or approved by the U.S. Food and Drug Administration. ??The FDA has determined that such clearance or approval is not necessary. ??This test is used for clinical purposes. ??It should not be regarded as investigational or for research. ??[facility] Laboratory is certified under the Clinical [...] MD LAB PATHOLOGY ORDERABLES Final Result PATHOLOGY [facility] Laboratory Receiving [address] [place] [address] * XR Chest 1 Vw (07/10/2023 3:47 [...] Time, High Range (07/10/2023 3:36 PM CDT) [facility] ACT 91 87 - 138 sec [facility] Blood 07/10/2023 3:36 PM CDT 07/10/2023 3:36 PM CDT Keaton Lynn MD LAB BLOOD ORDERABLES Fin al Result [facility] [address] [place] [address] * (ABNORMAL) POC Blood Gas and Chemistries, Arterial - (07/10/2023 3:36 PM CDT) [facility] pH, Art POC 7.41 7.35 - 7.45 [facility] pCO2, Art POC 42 35 - 45 mmHg [facility] pO2, Art POC 304(H) 80 - 108 mmHg [facility] Na, POC 138 135 - 145 mmol/L [facility] K POC 4.4 3.3 - 4.9 mmol/L [facility] Comment: Interpretive Data This method is not able to assess for hemolysis, which may falsely increase potassium concentrations. If further testing is needed to evaluate this result, consider in-laboratory plasma potassium. Current Interpretive Data was last revised on 2022. Cl, POC 107 97 - 110 mmol/L [facility] Ionized Ca, POC 4.27(L) 4.50 - 5.10 mg/dL [facility] Glucose, POC 173 70 - 199 mg/dL [facility] Lactate, POC 2.2(H) 0.0 - 2.0 mmol/L [facility] O2Hb, Art POC 97.7(H) 90.0 - 95.0 % [facility] Carboxhgb fract 1.9 0.0 - 2.9 % [facility] Methemoglobin 0.4 0.0 - 1.9 % [facility] HHb, POC 0.0 0.0 - 5.0 % [facility] SO2 (aisha) arterial 100(H) 90 - 95 % [facility] Total CO2, Art POC 28 22 - 32 mmol/L [facility] BE, art, POC 1.7 -2.0 - 2.0 mmol/L [facility] HCO3, Art POC 26 20 - 30 mmol/L [facility] Hct, POC 29.0(L) 38.9 - 50.3 % [facility] Total Hb, POC 9.8(L) 13.0 - 17.5 g/dL [facility] Blood 07/10/2023 3:36 PM CDT 07/10/2023 3:36 PM CDT us Keaton Lynn MD LAB POCT ORDERABLES - DE VICE Final Result [facility] [address] [place] [address] * Transfuse plasma (07/10/2023 3:10 PM CDT) Blood Herbie Mckinney MD PhD BLOOD TRANSFUSION ORDERA BLES Final Result Performing Organization Address City/[facility]/ZIP Co de Phone Number [facility] [address] Department [place] [address] * Transfuse plasma (07/10/2023 3:01 PM CDT) Blood Herbie Mckinney MD PhD BLOOD TRANSFUSION ORDERA BLES Final Result Performing Organization Address City/[facility] Co de Phone Number [facility] [address] Department [place] [address] * (ABNORMAL) POC Blood Gas and Chemistries, Arterial - (07/10/2023 3:00 PM CDT) pH, Art POC 7.33(L) 7.35 - 7.45 [facility] pCO2, Art POC 47(H) 35 - 45 mmHg [facility] pO2, Art POC 105 80 - 108 mmHg [facility] Na, POC 138 135 - 145 mmol/L [facility] K POC 4.4 3.3 - 4.9 mmol/L [facility] Comment: Interpretive Data This method is not able to assess for hemolysis, which may falsely increase potassium concentrations. If further testing is needed to evaluate this result, consider in-laboratory plasma potassium. Current Interpretive Data was last revised on 2022. Cl, POC 106 97 - 110 mmol/L [facility] Ionized Ca, POC 4.62 4.50 - 5.10 mg/dL [facility] Glucose, POC 191 70 - 199 mg/dL [facility] Lactate, POC 2.8(H) 0.0 - 2.0 mmol/L [facility] O2Hb, Art POC 97.2(H) 90.0 - 95.0 % [facility] Carboxhgb fract 1.9 0.0 - 2.9 % [facility] Methemoglobin 0.6 0.0 - 1.9 % [facility] HHb, POC 0.3 0.0 - 5.0 % [facility] SO2 (aisha) arterial 100(H) 90 - 95 % [facility] Total CO2, Art POC 26 22 - 32 mmol/L [facility] BE, art, POC -1.3 -2.0 - 2.0 mmol/L [facility] HCO3, Art POC 24 20 - 30 mmol/L [facility] Hct, POC 29.0(L) 38.9 - 50.3 % [facility] Total Hb, POC 9.8(L) 13.0 - 17.5 g/dL [facility] Blood 07/10/2023 3:00 PM CDT 07/10/2023 3:00 PM CDT Keaton Lynn MD LAB POCT ORDERABLES - DE VICE Final Result Performing Organization Address [facility] Co de Phone Number [facility] [address] Department [employer] [place], [place] [id number] * POC Activated Clotting Time, High Range (07/10/2023 2:59 PM CDT) ACT 116 87 - 138 sec [facility] Blood 07/10/2023 2:59 PM CDT 07/10/2023 2:59 PM CDT Keaton Lynn MD LAB BLOOD ORDERABLES Fin al Result Performing Organization Address [facility]/ZIP Co de Phone Number [facility] [address] Department of [employer] [place], [place] [phone] * Transfuse platelets (07/10/2023 2:56 PM CDT) Blood Herbie Mckinney MD PhD BLOOD TRANSFUSION ORDERA BLES Final Result Performing Organization Address [facility]/ZIP Co de Phone Number [facility] [address] Department of [employer] [place], [place] [id number] * Prepare plasma: 2 Units (07/10/2023 2:42 PM CDT) Pathologist [facility] Product code [id number] [facility] Unit Number [id number] [facility] Product Blood Type APOS [facility]) Dispense Status PRESUMED TRANSFUSED [facility] Product code [id number] [facility] Unit Number [id number] [facility] Product Blood Type APOS [facility] Dispense Status PRESUMED TRANSFUSED [facility] Blood (Blood, Venous) 07/10/2023 2:42 PM CDT Narrative [facility] - 07/10/2023 10:15 PM CDT Date required:-[id number] FFP # of Units:-2-Units Reasons:-Active major bleeding with coagulopathy} Herbie Mckinney MD PhD BLOOD BANK PRODUCT ORDER EMELYN Final Result [facility] [address] Department [place] [address] * (ABNORMAL) POC Blood Gas and Chemistries, Arterial - (07/10/2023 2:30 PM CDT) [facility] pH, Art POC 7.34(L) 7.35 - 7.45 [facility] pCO2, Art POC 46(H) 35 - 45 mmHg [facility] pO2, Art POC 352(H) 80 - 108 mmHg [facility] Na, POC 138 135 - 145 mmol/L [facility] K POC 4.8 3.3 - 4.9 mmol/L [facility] Comment: Interpretive Data This method is not able to assess for hemolysis, which may falsely increase potassium concentrations. If further testing is needed to evaluate this result, consider in-laboratory plasma potassium. Current Interpretive Data was last revised on 2022. Cl, POC 106 97 - 110 mmol/L [facility] Ionized Ca, POC 4.30(L) 4.50 - 5.10 mg/dL [facility] Glucose, POC 177 70 - 199 mg/dL [facility] Lactate, POC 3.2(H) 0.0 - 2.0 mmol/L [facility] O2Hb, Art POC 97.8(H) 90.0 - 95.0 % [facility] Carboxhgb fract 1.5 0.0 - 2.9 % [facility] Methemoglobin 0.6 0.0 - 1.9 % [facility] HHb, POC 0.0 0.0 - 5.0 % [facility] SO2 (aisha) arterial 100(H) 90 - 95 % [facility] Total CO2, Art POC 26 22 - 32 mmol/L [facility] BE, art, POC -1.1 -2.0 - 2.0 mmol/L [facility] HCO3, Art POC 24 20 - 30 mmol/L [facility] Hct, POC 29.0(L) 38.9 - 50.3 % [facility] Total Hb, POC 9.6(L) 13.0 - 17.5 g/dL [facility] Blood 07/10/2023 2:30 PM CDT 07/10/2023 2:30 PM CDT us Keaton Lynn MD LAB POCT ORDERABLES - DE VICE Final Result Performing Organization Address City/[facility]/ZIP Co de Phone Number [facility] [address] [place] [address] * (ABNORMAL) POC Activated Clotting Time, High Range (07/10/2023 2:29 PM CDT) ACT 821(H) 87 - 138 sec [facility] Blood 07/10/2023 2:29 PM CDT 07/10/2023 2:29 PM CDT Keaton Lynn MD LAB BLOOD ORDERABLES Fin al Result [facility] [address] [place] [address] * (ABNORMAL) POC Blood Gas and Chemistries, Arterial - (07/10/2023 1:58 PM CDT) pH, Art POC 7.45 7.35 - 7.45 [facility] pCO2, Art POC 44 35 - 45 mmHg [facility] pO2, Art POC 365(H) 80 - 108 mmHg [facility] Na, POC 141 135 - 145 mmol/L [facility] K POC 3.9 3.3 - 4.9 mmol/L [facility] Comment: Interpretive Data This method is not able to assess for hemolysis, which may falsely increase potassium concentrations. If further testing is needed to evaluate this result, consider in-laboratory plasma potassium. Current Interpretive Data was last revised on 2022. Cl, POC 107 97 - 110 mmol/L [facility] Ionized Ca, POC 3.98(L) 4.50 - 5.10 mg/dL [facility] Glucose, POC 177 70 - 199 mg/dL [facility] Lactate, POC 2.3(H) 0.0 - 2.0 mmol/L [facility] O2Hb, Art POC 98.2(H) 90.0 - 95.0 % [facility] Carboxhgb fract 1.1 0.0 - 2.9 % [facility] Methemoglobin 0.4 0.0 - 1.9 % [facility] HHb, POC 0.3 0.0 - 5.0 % [facility] SO2 (aisha) arterial 100(H) 90 - 95 % [facility] Total CO2, Art POC 32 22 - 32 mmol/L [facility] BE, art, POC 5.9(H) -2.0 - 2.0 mmol/L [facility] HCO3, Art POC 30 20 - 30 mmol/L [facility] Hct, POC 29.0(L) 38.9 - 50.3 % [facility] Total Hb, POC 9.6(L) 13.0 - 17.5 g/dL [facility] Blood 07/10/2023 1:58 PM CDT 07/10/2023 1:58 PM CDT us Keaton Lynn MD LAB POCT ORDERABLES - DE VICE Final Result [facility] [address] Department [place] [address] * (ABNORMAL) POC Activated Clotting Time, High Range (07/10/2023 1:57 PM CDT) Pathologist [facility] ACT 647(H) 87 - 138 sec [facility] Blood 07/10/2023 1:57 PM CDT 07/10/2023 1:57 PM CDT us Keaton Lynn MD LAB BLOOD ORDERABLES Fin al Result [facility] [address] Department [place] [address] * (ABNORMAL) POC Blood Gas and Chemistries, Arterial - (07/10/2023 1:43 PM CDT) [facility] pH, Art POC 7.40 7.35 - 7.45 [facility] pCO2, Art POC 39 35 - 45 mmHg [facility] pO2, Art POC 416(H) 80 - 108 mmHg [facility] Na, POC 137 135 - 145 mmol/L [facility] K POC 6.3(C) 3.3 - 4.9 mmol/L [facility] Comment: Interpretive Data This method is not able to assess for hemolysis, which may falsely increase potassium concentrations. If further testing is needed to evaluate this result, consider in-laboratory plasma potassium. Current Interpretive Data was last revised on 2022. Cl, POC 108 97 - 110 mmol/L [facility] Ionized Ca, POC 4.21(L) 4.50 - 5.10 mg/dL [facility] Glucose, POC 176 70 - 199 mg/dL [facility] Lactate, POC 2.3(H) 0.0 - 2.0 mmol/L [facility] O2Hb, Art POC 98.0(H) 90.0 - 95.0 % [facility] Carboxhgb fract 1.3 0.0 - 2.9 % [facility] Methemoglobin 0.6 0.0 - 1.9 % [facility] HHb, POC 0.2 0.0 - 5.0 % [facility] SO2 (aisha) arterial 100(H) 90 - 95 % [facility] Total CO2, Art POC 25 22 - 32 mmol/L [facility] BE, art, POC -0.5 -2.0 - 2.0 mmol/L [facility] HCO3, Art POC 25 20 - 30 mmol/L [facility] Hct, POC 29.0(L) 38.9 - 50.3 % [facility] Total Hb, POC 9.7(L) 13.0 - 17.5 g/dL [facility] Blood 07/10/2023 1:43 PM CDT 07/10/2023 1:43 PM CDT Keaton Lynn MD LAB POCT ORDERABLES - DE VICE Final Result Performing Organization Address [facility]/ZIP Co de Phone Number [facility] [address] Department [place] [address] * (ABNORMAL) POC Activated Clotting Time, High Range (07/10/2023 1:42 PM CDT) ACT 374(H) 87 - 138 sec [facility] Blood 07/10/2023 1:42 PM CDT 07/10/2023 1:42 PM CDT Keaton Lynn MD LAB BLOOD ORDERABLES Fin al Result Performing Organization Address City/[facility]/ZIP Co de Phone Number [facility] [address] [place] [address] * (ABNORMAL) POC Blood Gas and Chemistries, Arterial - (07/10/2023 1:12 PM CDT) pH, Art POC 7.34(L) 7.35 - 7.45 [facility] pCO2, Art POC 46(H) 35 - 45 mmHg [facility] pO2, Art POC 482(H) 80 - 108 mmHg [facility] Na, POC 137 135 - 145 mmol/L [facility] K POC 4.1 3.3 - 4.9 mmol/L [facility] Comment: Interpretive Data This method is not able to assess for hemolysis, which may falsely increase potassium concentrations. If further testing is needed to evaluate this result, consider in-laboratory plasma potassium. Current Interpretive Data was last revised on 2022. Cl, POC 106 97 - 110 mmol/L [facility] Ionized Ca, POC 4.39(L) 4.50 - 5.10 mg/dL [facility] Glucose, POC 112 70 - 199 mg/dL [facility] Lactate, POC 1.1 0.0 - 2.0 mmol/L [facility] O2Hb, Art POC 98.6(H) 90.0 - 95.0 % [facility] Carboxhgb fract 1.2 0.0 - 2.9 % [facility] Methemoglobin 0.1 0.0 - 1.9 % [facility] HHb, POC 0.1 0.0 - 5.0 % [facility] SO2 (aisha) arterial 100(H) 90 - 95 % [facility] Total CO2, Art POC 26 22 - 32 mmol/L [facility] BE, art, POC -1.1 -2.0 - 2.0 mmol/L [facility] HCO3, Art POC 24 20 - 30 mmol/L [facility] Hct, POC 29.0(L) 38.9 - 50.3 % [facility] Total Hb, POC 9.7(L) 13.0 - 17.5 g/dL [facility] Blood 07/10/2023 1:12 PM CDT 07/10/2023 1:12 PM CDT us Keaton Lynn MD LAB POCT ORDERABLES - DE VICE Final Result [facility] [address] Department [place] [address] * (ABNORMAL) POC Activated Clotting Time, High Range (07/10/2023 1:11 PM CDT) ACT 650(H) 87 - 138 sec [facility] Blood 07/10/2023 1:11 PM CDT 07/10/2023 1:11 PM CDT us Keaton Lynn MD LAB BLOOD ORDERABLES Les al Result [facility] [address] Department [place] [address] * (ABNORMAL) POC Blood Gas and Chemistries, Venous - (07/10/2023 12:52 PM CDT) pH, John POC 7.31(L) 7.32 - 7.45 [facility] pCO2, john POC 57(H) 40 - 50 mmHg [facility] pO2, john POC 53(H) 35 - 42 mmHg [facility] Na, POC 138 135 - 145 mmol/L [facility] K POC 3.6 3.3 - 4.9 mmol/L [facility] Comment: Interpretive Data This method is not able to assess for hemolysis, which may falsely increase potassium concentrations. If further testing is needed to evaluate this result, consider in-laboratory plasma potassium. Current Interpretive Data was last revised on 2022. Cl, POC 104 97 - 110 mmol/L [facility] Ionized Ca, POC 4.24(L) 4.50 - 5.10 mg/dL [facility] Glucose, POC 110 70 - 199 mg/dL [facility] Lactate, POC 0.7 0.0 - 2.0 mmol/L [facility] O2Hb, John POC 83.6(L) 90.0 - 95.0 % [facility] Carboxhgb fract 1.7 0.0 - 2.9 % [facility] Methemoglobin 0.0 0.0 - 1.9 % [facility] HHb, POC 14.7(H) 0.0 - 5.0 % [facility] O2 Sat, John POC (Aisha) 85(H) 68 - 77 % [facility] Total CO2, john POC 30 22 - 32 mmol/L [facility] Base excess, john POC 1.6 mmol/L [facility] HCO3, John POC 26 20 - 30 mmol/L [facility] Hct, POC 31.0(L) 38.9 - 50.3 % [facility] Total Hb, POC 10.2(L) 13.0 - 17.5 g/dL [facility] Blood 07/10/2023 12:5 2 PM CDT 07/10/2023 12:52 PM CDT Keaton Lynn MD LAB POCT ORDERABLES - DE VICE Final Result Performing Organization Address [facility]/ZIP Co de Phone Number [facility] [address] Department of [employer] [place], [place] [id number] * (ABNORMAL) POC Activated Clotting Time, High Range (07/10/2023 12:46 PM CDT) ACT 684(H) 87 - 138 sec [facility] Blood 07/10/2023 12:4 6 PM CDT 07/10/2023 12:46 PM CDT us Keaton Lynn MD LAB BLOOD ORDERABLES Fin al Result Performing Organization Address [facility]/ZIP Co de Phone Number [facility] [address] [place] [address] * (ABNORMAL) POC Blood Gas and Chemistries, Arterial - (07/10/2023 12:46 PM CDT) pH, Art POC 7.34(L) 7.35 - 7.45 [facility] pCO2, Art POC 51(H) 35 - 45 mmHg [facility] pO2, Art POC 462(H) 80 - 108 mmHg [facility] Na, POC 136 135 - 145 mmol/L [facility] K POC 3.6 3.3 - 4.9 mmol/L [facility] Comment: Interpretive Data This method is not able to assess for hemolysis, which may falsely increase potassium concentrations. If further testing is needed to evaluate this result, consider in-laboratory plasma potassium. Current Interpretive Data was last revised on 2022. Cl, POC 106 97 - 110 mmol/L [facility] Ionized Ca, POC 4.07(L) 4.50 - 5.10 mg/dL [facility] Glucose, POC 110 70 - 199 mg/dL [facility] Lactate, POC 0.7 0.0 - 2.0 mmol/L [facility] O2Hb, Art POC 98.4(H) 90.0 - 95.0 % [facility] Carboxhgb fract 1.4 0.0 - 2.9 % [facility] Methemoglobin 0.3 0.0 - 1.9 % [facility] HHb, POC 0.0 0.0 - 5.0 % [facility] SO2 (aisha) arterial 100(H) 90 - 95 % [facility] Total CO2, Art POC 29 22 - 32 mmol/L [facility] BE, art, POC 1.2 -2.0 - 2.0 mmol/L [facility] HCO3, Art POC 26 20 - 30 mmol/L [facility] Hct, POC 30.0(L) 38.9 - 50.3 % [facility] Total Hb, POC 10.0(L) 13.0 - 17.5 g/dL [facility] Blood 07/10/2023 12:4 6 PM CDT 07/10/2023 12:46 PM CDT us Keaton Lynn MD LAB POCT ORDERABLES - DE VICE Final Result Performing Organization Address City/[facility]/ZIP Co de Phone Number [facility] [address] Department [place] [address] * (ABNORMAL) POC Activated Clotting Time, High Range (07/10/2023 12:31 PM CDT) ACT 649(H) 87 - 138 sec [facility] Blood 07/10/2023 12:3 1 PM CDT 07/10/2023 12:31 PM CDT Keaton Lynn MD LAB BLOOD ORDERABLES Fin al Result [facility] [address] Department [place] [address] * (ABNORMAL) POC Blood Gas and Chemistries, Arterial - (07/10/2023 12:09 PM CDT) pH, Art POC 7.35 7.35 - 7.45 [facility] pCO2, Art POC 48(H) 35 - 45 mmHg [facility] pO2, Art POC 158(H) 80 - 108 mmHg [facility] Na, POC 138 135 - 145 mmol/L [facility] K POC 3.8 3.3 - 4.9 mmol/L [facility] Comment: Interpretive Data This method is not able to assess for hemolysis, which may falsely increase potassium concentrations. If further testing is needed to evaluate this result, consider in-laboratory plasma potassium. Current Interpretive Data was last revised on 2022. Cl, POC 106 97 - 110 mmol/L [facility] Ionized Ca, POC 4.61 4.50 - 5.10 mg/dL [facility] Glucose, POC 99 70 - 199 mg/dL [facility] Lactate, POC 0.7 0.0 - 2.0 mmol/L [facility] O2Hb, Art POC 97.6(H) 90.0 - 95.0 % [facility] Carboxhgb fract 1.6 0.0 - 2.9 % [facility] Methemoglobin 0.7 0.0 - 1.9 % [facility] HHb, POC 0.2 0.0 - 5.0 % [facility] SO2 (aisha) arterial 100(H) 90 - 95 % [facility] Total CO2, Art POC 28 22 - 32 mmol/L [facility] BE, art, POC 0.4 -2.0 - 2.0 mmol/L [facility] HCO3, Art POC 25 20 - 30 mmol/L [facility] Hct, POC 37.0(L) 38.9 - 50.3 % [facility] Total Hb, POC 12.4(L) 13.0 - 17.5 g/dL [facility] Blood 07/10/2023 12:0 9 PM CDT 07/10/2023 12:09 PM CDT Keaton Lynn MD LAB POCT ORDERABLES - DE VICE Final Result Performing Organization Address [facility] Co de Phone Number [facility] [address] Department [place] [address] * POC Activated Clotting Time, High Range (07/10/2023 12:08 PM CDT) Pathologist [facility] ACT 95 87 - 138 sec [facility] Blood 07/10/2023 12:0 8 PM CDT 07/10/2023 12:08 PM CDT Result [facility] Keaton Lynn MD LAB BLOOD ORDERABLES Fin al Result Performing Organization Address [facility] [[email or web address]] de Phone Number [facility] [address] [facility] [place] [address] * Hemoglobin A1c (07/10/2023 10:12 AM CDT) [facility] Hgb A1C 5.2 4.0 - 5.6 % [facility] Estimated Average Glucose 103 mg/dL [facility] Comment: The ADA recommends reporting an estimated Average Glucose (eAG) with all Hemoglobin A1c results using the equation derived from a study of 507 normal and diabetic adults. ??Minority populations were underrepresented and children were not included. ?? (Diabetes Care 31:1977-5007, 2008). ??The eAG is not equivalent to a fasting glucose. Blood 07/10/2023 10:1 2 AM CDT 07/10/2023 10:12 AM CDT Danyelle Tillman NP LAB BLOOD ORDERABLES Final Resul t Performing Organization Address [facility] Co de Phone Number [facility] [address] [place] [address] * aPTT (07/10/2023 10:12 AM CDT) Pathologist [facility] aPTT 33 28 - 38 sec [facility] Comment: Interpretive Data Therapeutic heparin range: 60.0 - 94.0 seconds. Based on correlation with therapeutic heparin activity range of 0.3-0.7 Units/mL. Current interpretive data was last revised on 2020. Blood 07/10/2023 10:1 2 AM CDT 07/10/2023 10:12 AM CDT Danyelle Tillman NP LAB BLOOD ORDERABLES Final Resul t Performing Organization Address [facility] [[email or web address]] de Phone Number [facility] [address] Department of [employer] [place], [place] [id number] * Protime-INR (07/10/2023 10:12 AM CDT) PT 11.7 10.3 - 13.7 sec [facility] INR 1.03 0.90 - 1.20 [facility] Comment: Interpretive data Oral anticoagulant therapeutic ranges: Venous thromboembolism prophylaxis or treatment: 2.0-3.0 CARDIOLOGY Standard range: 2.0-3.0 High-intensity range: 2.5-3.5 Refer to indication-specific guidelines for appropriate target ranges for prosthetic heart valve replacement. Current interpretive data was last revised on 2019. Blood 07/10/2023 10:1 2 AM CDT 07/10/2023 10:12 AM CDT Danyelle Tillman NP LAB BLOOD ORDERABLES Final Resul t Performing Organization Address [facility] Co de Phone Number [facility] [address] [place] [address] * Check Sample (07/10/2023 10:12 AM CDT) ABO Rh O Positive [facility] HCLL OTHER 07/10/2023 10:1 2 AM CDT 07/10/2023 10:22 AM CDT Keaton Lynn MD LAB BLOOD ORDERABLES Fin al Result Performing Organization Address [facility] Co de Phone Number [facility] [address] [facility] [place] [address] * Prepare platelets: 2 Units (07/10/2023 9:43 AM CDT) Product code [id number] [facility] Unit Number [id number] [facility] Product Blood Type APOS [facility] Dispense Status PRESUMED TRANSFUSED [facility] Blood (Blood, Venous) 07/10/2023 9:43 AM CDT Narrative [facility] - 07/10/2023 10:15 PM CDT Specify Procedure:->REPLACEMENT ASCENDING AORTA Are special requirements needed? (all products are leukoreduced)->No Date required:-[id number] PLT # of Units:-2-Units Reasons:-Hold for procedure (specify procedure)} Danyelle Tillman NP BLOOD BANK PRODUCT ORDERABLES Fi nal Result Performing Organization Address [facility] Co de Phone Number [facility] [address] [place] [address] * Prepare RBC: 4 Units (07/10/2023 9:43 AM CDT) Product code [id number] [facility] Unit Number [id number] 6-0 [facility] Product Blood Type OPOS [facility] Dispense Status RETURNED [facility] Product code [id number] [facility] Unit Number [id number] 7-* [facility] Product Blood Type OPOS [facility] Dispense Status RETURNED [facility] Product code [id number] [facility] Unit Number [id number] 4-I [facility] Product Blood Type OPOS [facility] Dispense Status [facility] Product code [id number] [facility] Unit Number [id number] 5-2 [facility] Product Blood Type OPOS [facility] Dispense Status RETURNED [facility] Blood 07/10/2023 9:43 AM CDT Narrative [facility] - 07/11/2023 1:49 AM CDT Specify Procedure:->REPLACEMENT ASCENDING AORTA Are special requirements needed? (All products are leukoreduced and CMV- safe)- >No Date required:-20230710 [facility] # of [id number] Reasons:-Hold for procedure (specify procedure)} Danyelle Tillman NP BLOOD BANK PRODUCT ORDERABLES nal Result [facility] [address] Department [place] [address] documented in this encounter Visit Diagnoses Diagnosis [...] Call MD for each episode of hypoglycemia. FEEDER DRIVER STATES GLUTOSE-15 CONTAINS GLUCOSE 40% W/W (50% [...] (after last modification) on [facility] 07/12/23 at 0900, Hold for HR <60 or SBP <100 Given 07/12/2023 8:50 AM CDT 6.25 mg metoprolol tartrate (LOPRESSOR) immediate release tablet 12.5 mg 12.5 mg, oral, 2 times daily, First dose (after last modification) on [facility] 07/12/23 at 2100, Hold for HR <60 [...] or chewed. 1603 (Given - Provider: Cassandra Solaon RN) potassium chloride ER (KLOR-CON) extended release [...] RN)204 (Given - Provider: Danica Sanchez, MAHIN) 0940 (Given - Provider: Nano Arango, MAHIN)2104 [...] Provider: Nano Arango, MAHIN)2104 (Given - Provider: Dnaica Sanchez, MAHIN) 0519 (Given - Provider: Danica [...] Call MD for each episode of hypoglycemia. FEEDER DRIVER STATES GLUTOSE-15 CONTAINS GLUCOSE 40% W/W (50% [...] RN - Comment: Completed 0700. Administered by Human Resources Department Supervisor.) ondansetron (ZOFRAN) injection 4 mg 4 mg, [...] Carlita Meier RN)0923 (Given - Provider: Cassandra Solano RN)1331 [...] Call MD for each episode of hypoglycemia. FEEDER DRIVER STATES GLUTOSE-15 CONTAINS GLUCOSE 40% W/W (50% [...] 07/14/2023 documented in this encounter Care Teams Take Up Operator Relationship Specialty Start Date End Date Radha Lozada MD [facility] [place] [address] PCP - General Family Medicine 06/25/23 04/29/24 Kali Reddy MD Consulting Physician Cardiology 05/19/19 Keaton Lynn MD [address] [place] [address] Consulting Physician Cardiothoracic Surgery 06/07/23 documented as of this encounter
--- OUTSIDE RECORDS SUMMARY | 2024-09-30 02:52 | XMS_ITS | Encounter Summary ---
Author Organization [facility] Healthcare Address [address] [place] [address] Care Team Providers Care Analytical Technician Name Role Phone Kali Reddy MD Unavailable [phone] Keaton Lynn MD Unavailable [phone] Radha Lozada MD Primary Care Provider [phone] Reason for Visit * Reason Comments Dizziness * Auth/Cert (Routine) Specialty Diagnoses / Procedures Referred By Contac t Referred To Contact Diagnoses Anemia Atrial fibrillation with rapid ventricular response (CMS/HCC) (HCC) Macrocytic anemia Procedures N Referral ID Status Reason Start Date Expiration Date Visits Re quested Visits Authorized [id number] 1 1 Encounter Details Date Type Department Care Team (Latest Contact Info) Description 07/28/2023 8:30 AM CDT - 07/28/2023 9:00 AM CDT Surgery [facility] [address] [place] [id number] Pedro Luis Brantley, DO [address] [place] [address] ESOPHAGOGASTRODUODENOSCOPY CONTROL BLEED Surgery Details Date/Time Status Location OR Service Patient Class Case Class Case Type Trauma Case? 07/28/2023 8:30 AM Posted [facility] ENDOSCOPY GI 03 Gastroenterology Inpatient Elective Panel [...] any clubs o r organizations such as orthodox groups, unions, fraternal or athletic groups, [...] slept in a penitentiary (including now)? 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 Hospital LOS - LOS: 4 days [...] Your Medications These medications were sent to [facility] [id number] [place], [place] - [address], [place] [address] 40 mg EC tablet Time [...] Lynn MD [facility] [id number] PSA 05/21/2024 9:15 AM [facility] CT-[address] [facility] CT [facility] Main 05/21/2024 10:30 AM Kali Reddy MD [facility] CAR 200 Specialty Contact Information for Follow-ups [facility] Home Care Services Specialty: Home Health and Hospice [address] [facility] [address] Next Steps: Follow up Questions: Service Line: Home Health Primary disciplines requested: [facility] Physical Therapy Secondary disciplines requested: Occupational Therapy [...] schedule an appointment with the following provider(s): [facility] Home Care Services [address] [facility] [address] Radha Lozada MD [address] [place] [address] DR HAIR [facility] [address] Call for follow up with primary care provider in one week Kali Reddy MD [address] [place] [address] [facility] [id number] Expedite follow up for watchman evaluation Keaton Lynn MD [address] [place] [address] [facility] [address] keep appointment as scheduled for 08/16 [facility] [address] [facility] [address] ANCILLARY INFORMATION Other Procedures & Diagnostic Tests: [...] (TTE) Complete W Doppler/CF Result Date: 07/28/[address] [address] ECHOCARDIOGRAM Patient Name: JUDI ADAM L : 1945 Study Date: 07/27/2023 3:42:15 PM Gender: M Tech: Location: [id number] Ref.Provider: ERIN MONK Height(Cm): 183 BSA: 2.35 [...] 15 [ 2 - 9 ] mmHg RASUb2X 3.58 [ 2.30 - 3.90 ] cm [...] pressure. Electronically Signed By: Parish Monae MD, [facility] 2023-07-28 05:05:41 CDT CC: CC: CTA [...] Rate: 122 bpm RR Interval: 489 msec [place] Interval: 0 msec QRS Duration: 110 msec QT Interval: 371 msec QTC Interval: 444 msec P-R-T [place]: 0 - -37 - 71 degrees IMPRESSION: ATRIAL FIBRILLATION WITH RAPID VENTRICULAR RESPONSE LEFT AXIS DEVIATION NONSPECIFIC ST \T\ T-WAVE ABNORMALITY ABNORMAL ECG Electronically Signed By: Javon Lopez MD [facility] Recent Labs: Recent Labs Lab Units 07/31/2332107/30/2335207/29/23114307/29/23256 [...] mg/dL 0.97 0.92 0.84 0.80 -- 0.85 [id number] mL/min/1.73 m2 80 86 90 91 -- [...] Photofix 6x8cm Acellular Dermis Pfp 6x8 - [id number] - Implanted Heart Inventory item: [employer] Graft Biological Cardiovascular Photofix 6x8cm Acellular Dermis PFP 6X8 Model/Cat number: PFP [id number] Plasma Specialist: [employer] Lot number: [id number] As of 07/10/2023 Status: Implanted [employer] Conduit Cardiovascular Aortic Valved Konect Resilia 25mm Bovine [id number] - [id number] - [id number] - Implanted Aorta Inventory item: [employer] Conduit Cardiovascular Aortic Valved Konect Resilia 25mm Bovine [id number] Model/Cat number: [id number] Serial number: [id number] Plasma Specialist: [employer] Size: 25 mm As of 07/10/2023 Status: Implanted Abyrx Hemasorb Os-Spa Spatula Wax 2gm Bone Sterile Os-201 - [id number] - Implanted Aorta Inventory item: ABYRX Hemasorb OS-SPA Spatula Wax 2gm Bone Sterile OS-201 Model/Cat number: OS-201 Plasma Specialist: Abyrx Lot number: [id number] As of 07/10/2023 Status: Implanted [employer] Device Closure Fibertape Sternal Cerclage Blunt Needle Ar-7289 - [id number] - Implanted Sternum Inventory item: [employer] Device Closure Fibertape Sternal Cerclage Blunt Needle AR-7289 Model/Cat number: [id number] Plasma Specialist: [employer] Lot number: [id number] As of 07/10/2023 Status: Implanted Synthes 3mm 16mm Self Drill Lock Sternal Screw Bone Titanium Nonsterile 501.116.01 - [id number] Implanted Sternum Inventory item: SYNTHES 3mm 16mm Self Drill Lock Sternal Screw Bone Titanium Nonsterile 501.116.01 Model/Cat number: .[id number] Plasma Specialist: Synthes As of 07/10/2023 Status: Implanted Synthes 8 Hole Locking Manubrium Sternum H Large Plate Bone Titanium 460.028 - [id number] - Implanted Sternum Inventory item: SYNTHES 8 Hole Locking Manubrium Sternum H Large Plate Bone Titanium 460.028 Model/Cat number: [id number] Plasma Specialist: Synthes As of 07/10/2023 Status: Implanted General [...] Service Line: Home Health Primary disciplines requested: [facility] Physical Therapy Secondary disciplines requested: Occupational Therapy [...] (Mak Class IIc). Clip was placed. Clip lining stamper: [employer]. - Normal stomach. Biopsied. - Normal esophagus. [...] from the original note were not included. [facility] Cardiology [address], [place] [address] Cardiology Yariel Hills, MD Kali Reddy, MD Wellington Dugan, MD Parish Monae, MD Kilo Sims, MD Johnny Maher, MD Osmin Barbosa, MD Nicolas Golden, MD Best Ramirez, MD Javon Lopez, MD Rory Dowling, MD Beth Smith, FINANCE ASSOCIATE Erin Monk, FINANCE ASSOCIATE Elise Kirkpatrick, FINANCE ASSOCIATE Cardiology Daily Progress Note Patient Name: Judi Adam Provider: Kali Reddy MD : 1945 Date of Service: 07/31/2023 This note was dictated with voice-recognition software, and it senior software engineer java errors may be present. SUBJECTIVE: He has [...] (Mak Class IIc). Clip was placed. Clip lining stamper: [employer]. - Normal stomach. Biopsied. - Normal esophagus. [...] duodenal ulcer with a flat pigmented spot (Mka Class IIc). Clip was placed. Clip lining stamper: [employer]. - Normal stomach. Biopsied. - Normal esophagus. [...] Day NP - 07/29/2023 7:05 AM CDT [facility] Cardiology [address], [place] [address] Cardiology Yariel Hills MD Kali Reddy, MD Wellington Dugan, MD Parish Monae, MD Johnny Maher, MD Osmin Barboas, MD Best Ramirez, MD Nicolas Golden, MD Javon Lopez, MD Rory Dowling, MD Kilo Day, FINANCE ASSOCIATE Clyde Wilman, FINANCE ASSOCIATE Erin Lacho, FINANCE ASSOCIATE Beth Smith, FINANCE ASSOCIATE Cardiology Daily Progress Note Provider: Elise [...] This note was dictated with voice-recognition software, it senior software engineer java errors may be present. Elise Day NP [...] PM Result Value Ref Range Product code D9786Y02 Unit Number [id number] Product Blood Type OPOS Dispense Status ISSUED Product code N0878O86 Unit Number [id number] Product Blood Type OPOS Dispense Status PRESUMED TRANSFUSED Hemoglobin and hematocrit Collection Time: 07/27/23 11:24 PM Result Value Ref Range Hgb 6.9 (L) 13.0 - 17.5 g/dL Hct 22.2 (L) 38.9 - 50.3 % Prepare RBC: 1 Units Collection Time: 07/28/23 2:05 AM Result Value Ref Range Product code H7902N66 Unit Number [id number] Product Blood Type OPOS Dispense Status ISSUED [...] Day NP - 07/28/2023 7:04 AM CDT [facility] Cardiology [address], [place] [address] Cardiology MD Kali Mckeon MD Robert Kopitsky, [...] rhythm/tachycardia with heart rates in the 90- [id number]. MEDICATIONS [MAR Hold] atorvastatin, 40 mg, oral, [...] This note was dictated with voice-recognition software, it senior software engineer java errors may be present. Elise Day NP [...] Mateusz Brantley DO Contact info: Week - [phone]; After hours: [phone] Referring doctor: Nighat Angeles MD PCP: Radha [...] Medical History: Diagnosis Date Arthritis Arthritis; Comments: [facility] 10/19/2015 - HX OTHER MEDICAL ascending aortic aneurysm; Comments: [facility] 10/19/2015 - Hypertension Hypertension Sleep [...] Patient reports that he was discharged from [facility] on 07/14/2023 after undergoing aortic root [...] was notified. He was brought to the [facility] Emergency Department further evaluation. 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 Clip lining stamper: [employer]. There was no bleeding during, or at the end, of the procedure. The entire examined stomach was normal. Biopsies were taken with a cold forceps for Helicobacter pylori testing using CLOtest. The esophagus was normal. Impression: - Normal second portion of the duodenum. - Non-bleeding duodenal ulcer with a flat pigmented spot (Mak Class IIc). Clip was placed. Clip lining stamper: [employer]. - Normal stomach. Biopsied. - Normal esophagus. [...] PM CDTAssociated Order(s): IP CONSULT TO NEUROSURGERY [facility] Consult Note CHIEF COMPLAINT Lightheadedness HISTORY [...] of this pleasant man. Chaim Moon PA-C [facility] Please call neurosurgery PA Chaim Moon at [phone] with any questions/concerns. Cosigned by Javon Calles MD PhD at 07/30/2023 3:14 PM CDT * Parish Harrell PA - 07/27/2023 3:01 PM CDTAssociated Order(s): IP CONSULT TO GASTROENTEROLOGY [facility] Consult: Mateusz Brantley DO Contact info: Week - [phone]; After hours: [phone] Referring doctor: Nighat Angeles MD PCP: Radha [...] Medical History: Diagnosis Date Arthritis Arthritis; Comments: [facility] 10/19/2015 - HX OTHER MEDICAL ascending aortic aneurysm; Comments: [facility] 10/19/2015 - Hypertension Hypertension Sleep [...] PM CDTAssociated Order(s): IP CONSULT TO CARDIOLOGY [facility] Cardiology [address] [address] Cardiology Yariel Hills, MD Kali Reddy, MD Wellington Dugan, MD Parish Monae, MD Kilo Sims, MD Johnny Maher, MD Osmin Barbosa, MD Best Ramirez, MD Nicolas Golden, MD Everardo Briscoe, DO Javon Lopez, MD Rory Dowling, MD Clyde Stovall, FINANCE ASSOCIATE Erin Monk, FINANCE ASSOCIATE Beth Smith, FINANCE ASSOCIATE Cardiology Consult Patient Name: Judi Adam [...] dehiscence of surgical site. Patient follows with medical research scientist, Dr. Reddy. Echocardiogram on 06/21/2023 demonstrated normal [...] Medical History: Diagnosis Date Arthritis Arthritis; Comments: [facility] 10/19/2015 - HX OTHER MEDICAL ascending aortic aneurysm; Comments: [facility] 10/19/2015 - Hypertension Hypertension Sleep [...] AM Result Value Ref Range Product code S5971M87 Unit Number [id number] Product Blood Type OPOS Dispense Status ISSUED Product code V1507F32 Unit Number [id number] Product Blood Type OPOS Dispense Status ISSUED [...] This note was dictated with voice-recognition software, it senior software engineer java errors may be present. Erin Monk NP [...] Medical History: Diagnosis Date Arthritis Arthritis; Comments: [facility] 10/19/2015 - HX OTHER MEDICAL ascending aortic aneurysm; Comments: [facility] 10/19/2015 - Hypertension Hypertension Sleep [...] Rebecca Peterson - 07/31/2023 3:31 PM CDT [facility] received a consult. Per LUIS Mcgee Patient will be using [facility]. [facility] consult closedand no services set up at this time. * Plan of Care - Carlyn Ruiz RN - 07/31/2023 3:12 PM CDT CM received updates from Luisa Rosas that they will accept Mr Adam back for [facility] at discharge. * Plan of Care - [...] - 07/31/2023 12:24 PM CDT CM received [facility] order and resent it to [facility] who [...] Service Line Home Health Primary disciplines requested: [facility] Primary disciplines requested: Physical Therapy Secondary disciplines [...] end of June. Discharged home with [facility] RN plus therapies wishes to continue them. Primary Source of Transportation: Does the patient need discharge transport arranged?: No (daughter or one of his grandchildren will come and pick him up) (07/30/231611) Health Insurance Coverage: Medicare and [facility] Prescription Coverage: [facility] Pharmacy: [facility] [address] [place] [address] [place] [address] Primary Care Provider: Radha Lozada MD Prior to Admission: Functional Status: Independent with ADLs Primary Caregiver: Self (Patient recently had an aortic anerysm repaired) Support System: Spouse/Significant Other Home Care Services: Yes ([facility]) Type of Home Care Services: Nurse visit, Home therapies Home care service name and phone number: [facility] Durable Medical Equipment: Home Modification Assessment (railes [...] a week How often do you attend orthodox or faith services?: More than 4 times per year Do you belong to any clubs or organizations such as orthodox groups, unions, fraternal or athletic groups, [...] Screening Potential discharge needs include: Home Health: care home, Occupational therapy, Physical therapy (07/30/231611) Dialysis: No [...] Collaboration with patient, MD, direct care nurse, Queen Producer, and other members of the health care team to assure needed interventions completed. 2. Return patient to optimal level of self-care post discharge. 3. Front Maker Lockstitch will follow for Discharge Planning - interventions [...] LAB TEST Add-On 07/27/2023 2:41 PM CDT [place] CRITICAL CARE ILL/INJURED PATIENT INIT 30-74 MIN [...] ORDERABLES Final Re sult Performing Organization Address City/[facility]/ZIP Co de Phone Number [facility] [address] Department [place] [employer] [place] [address] * Magnesium (07/31/2023 3:22 AM CDT) Pathologist [facility] Magnesium 2.3 1.4 - 2.5 mg/dL Blood 07/31/2023 3:22 AM CDT 07/31/2023 4:09 AM CDT us Jonn Willis MD LAB BLOOD ORDERABLES Final Re sult Performing Organization Address [facility] de Phone Number [facility] [address] Department [place] [employer] [place] [address] * (ABNORMAL) Renal function panel (07/31/2023 3:22 AM CDT) Pathologist [facility] Sodium 138 135 - 145 mmol/L Potassium, pl 3.6 3.3 - 4.9 mmol/L [facility] Chloride 105 97 - 110 mmol/L [facility] CO2 26 22 - 32 mmol/L [facility] Anion gap 7 2 - 15 mmol/L [facility] BUN 12 6 - 25 mg/dL [facility] Creatinine 0.97 0.80 - 1.30 mg/dL [facility] Glucose 97 70 - 199 mg/dL [facility] Comment: Interpretive Data Fasting glucose >/= 126 [...] 2022. Calcium 8.1(L) 8.5 - 10.3 mg/dL [facility] Phosphorus, pl 3.8 2.3 - 4.5 mg/dL [facility] Albumin 2.8(L) 3.5 - 5.0 g/dL [facility] Blood 07/31/2023 3:22 AM CDT 07/31/2023 4:09 AM CDT Jonn Willis MD LAB BLOOD ORDERABLES Final Re sult [facility] [address] Department [place] [address] * (ABNORMAL) CBC without differential (07/31/2023 3:22 AM CDT) [facility] WBC 4.4 3.8 - 9.9 K/cumm Hgb 7.6(L) 13.0 - 17.5 g/dL [facility] Comment: Interpretive Data A reference range for this assay has not been established for patients with an unknown legal sex. Please refer to the laboratory test catalog for established sex-specific reference intervals. Current interpretive data was last revised on 2023. Hct 24.6(L) 38.9 - 50.3 % [facility] Comment: Interpretive Data A reference range for this assay has not been established for patients with an unknown legal sex. Please refer to the laboratory test catalog for established sex-specific reference intervals. Current interpretive data was last revised on 2023. Plt 163 150 - 400 K/cumm [facility] MPV 9.1 9.1 - 12.3 fL [facility] RBC 2.50(L) 4.30 - 5.80 M/cumm [facility] Comment: Interpretive Data A reference range for this assay has not been established for patients with an unknown legal sex. Please refer to the laboratory test catalog for established sex-specific reference intervals. Current interpretive data was last revised on 2023. MCV 98.4(H) 81.3 - 96.4 fL [facility] MCH 30.4 27.1 - 33.3 pg [facility] MCHC 30.9(L) 32.3 - 35.7 g/dL [facility] RDW CV 18.9(H) 11.1 - 14.9 % [facility] RDW SD 54.3(H) 35.7 - 48.1 fL [facility] NRBC abs 0.02(H) 0.00 - 0.01 K/cumm [facility] Blood 07/31/2023 3:22 AM CDT 07/31/2023 4:08 AM CDT us Pedro Luis Brantley DO LAB BLOOD ORDERABLES Final Res ult [facility] [address] Department [place] [address] * eGFR (07/30/2023 3:53 AM [...] ORDERABLES Final Res ult Performing Organization Address City/[facility]/ZIP Co de Phone Number [facility] [address] [place] [address] * (ABNORMAL) Basic metabolic panel (07/30/2023 3:53 AM CDT) [facility] Sodium 138 135 - 145 mmol/L Potassium, pl 3.5 3.3 - 4.9 mmol/L [facility] Chloride 104 97 - 110 mmol/L [facility] CO2 27 22 - 32 mmol/L [facility] Anion gap 7 2 - 15 mmol/L [facility] BUN 11 6 - 25 mg/dL [facility] Creatinine 0.92 0.80 - 1.30 mg/dL [facility] Glucose 93 70 - 199 mg/dL [facility] Comment: Interpretive Data Fasting glucose >/= 126 [...] 2022. Calcium 8.0(L) 8.5 - 10.3 mg/dL [facility] Blood 07/30/2023 3:53 AM CDT 07/30/2023 5:09 AM CDT Pedro Luis Brantley DO LAB BLOOD ORDERABLES Final Res ult Performing Organization Address [facility]/ZIP Co de Phone Number [facility] [address] [place] [address] * (ABNORMAL) CBC without differential (07/30/2023 3:53 AM CDT) [facility] WBC 4.9 3.8 - 9.9 K/cumm Hgb 7.4(L) 13.0 - 17.5 g/dL [facility] Comment: Interpretive Data A reference range for this assay has not been established for patients with an unknown legal sex. Please refer to the laboratory test catalog for established sex-specific reference intervals. Current interpretive data was last revised on 2023. Hct 23.4(L) 38.9 - 50.3 % [facility] Comment: Interpretive Data A reference range for this assay has not been established for patients with an unknown legal sex. Please refer to the laboratory test catalog for established sex-specific reference intervals. Current interpretive data was last revised on 2023. Plt 166 150 - 400 K/cumm [facility] MPV 9.0(L) 9.1 - 12.3 fL [facility] RBC 2.36(L) 4.30 - 5.80 M/cumm [facility] Comment: Interpretive Data A reference range for this assay has not been established for patients with an unknown legal sex. Please refer to the laboratory test catalog for established sex-specific reference intervals. Current interpretive data was last revised on 2023. MCV 99.2(H) 81.3 - 96.4 fL [facility] MCH 31.4 27.1 - 33.3 pg [facility] MCHC 31.6(L) 32.3 - 35.7 g/dL [facility] RDW CV 19.1(H) 11.1 - 14.9 % [facility] RDW SD 53.0(H) 35.7 - 48.1 fL [facility] NRBC abs 0.07(H) 0.00 - 0.01 K/cumm [facility] Blood 07/30/2023 3:53 AM CDT 07/30/2023 5:08 AM CDT us Pedro Luis Brantley DO LAB BLOOD ORDERABLES Final Res ult [facility] [address] [facility] [place] [address] * (ABNORMAL) Hemoglobin and hematocrit (07/29/2023 11:44 AM CDT) Hgb 7.9(L) 13.0 - 17.5 g/dL Comment: Interpretive Data A reference range for this assay has not been established for patients with an unknown legal sex. Please refer to the laboratory test catalog for established sex-specific reference intervals. Current interpretive data was last revised on 2023. Hct 25.1(L) 38.9 - 50.3 % [facility] [facility] Comment: Interpretive Data A reference range for [...] Resul t Performing Organization Address [facility] de Phone Number [facility] [address] Department [employer] [address] * POCT H. pylori (Clotest) (07/29/2023 8:50 AM CDT) Pathologist [facility] H Pylori, POC Negative Negative QC Negative conf by Urease Yes Lot Number [id number] Tissue 07/29/2023 8:50 AM CDT us Pedro Luis Brantley DO POINT OF CARE TEST ORDERABLES Final Result * eGFR (07/29/2023 2:57 AM CDT) Pathologist [facility] eGFR 90 mL/min/1. 73 m2 Comment: Interpretive [...] DO LAB BLOOD ORDERABLES Final Res ult [facility] [address] Department [place] [address] * (ABNORMAL) Basic metabolic panel (07/29/2023 2:57 AM CDT) Sodium 137 135 - 145 mmol/L Potassium, pl 3.5 3.3 - 4.9 mmol/L [facility] Chloride 106 97 - 110 mmol/L [facility] CO2 24 22 - 32 mmol/L [facility] Anion gap 7 2 - 15 mmol/L [facility] BUN 16 6 - 25 mg/dL [facility] Creatinine 0.84 0.80 - 1.30 mg/dL [facility] Glucose 92 70 - 199 mg/dL [facility] Comment: Interpretive Data Fasting glucose >/= 126 [...] 2022. Calcium 7.9(L) 8.5 - 10.3 mg/dL [facility] Blood 07/29/2023 2:57 AM CDT 07/29/2023 4:05 AM CDT us Pedro Luis Brantley DO LAB BLOOD ORDERABLES Final Res ult [facility] [address] Department [place] [address] * (ABNORMAL) CBC without differential (07/29/2023 2:57 AM CDT) WBC 6.2 3.8 - 9.9 K/cumm Hgb 7.1(L) 13.0 - 17.5 g/dL [facility] Comment: Interpretive Data A reference range for this assay has not been established for patients with an unknown legal sex. Please refer to the laboratory test catalog for established sex-specific reference intervals. Current interpretive data was last revised on 2023. Hct 22.5(L) 38.9 - 50.3 % [facility] Comment: Interpretive Data A reference range for this assay has not been established for patients with an unknown legal sex. Please refer to the laboratory test catalog for established sex-specific reference intervals. Current interpretive data was last revised on 2023. Plt 188 150 - 400 K/cumm [facility] MPV 8.8(L) 9.1 - 12.3 fL [facility] RBC 2.34(L) 4.30 - 5.80 M/cumm [facility] Comment: Interpretive Data A reference range for this assay has not been established for patients with an unknown legal sex. Please refer to the laboratory test catalog for established sex-specific reference intervals. Current interpretive data was last revised on 2023. MCV 96.2 81.3 - 96.4 fL [facility] MCH 30.3 27.1 - 33.3 pg [facility] MCHC 31.6(L) 32.3 - 35.7 g/dL [facility] RDW CV 17.6(H) 11.1 - 14.9 % [facility] RDW SD 51.5(H) 35.7 - 48.1 fL [facility] NRBC abs 0.13(H) 0.00 - 0.01 K/cumm [facility] Blood 07/29/2023 2:57 AM CDT 07/29/2023 4:05 AM CDT Pedro Luis Brantley DO LAB BLOOD ORDERABLES Final Res ult [facility] [address] Department [place] [address] * (ABNORMAL) Hemoglobin and hematocrit (07/28/2023 6:38 [...] 2023. Hct 23.6(L) 38.9 - 50.3 % [facility] Comment: Interpretive Data A reference range for [...] ult [facility] [address] Department [place] [address] * CTA Head Neck W [...] saccular aneurysms identified. Electronically signed by: MARCELL BAIDLLO Narrative 07/28/2023 3:59 PM CDT CTA head [...] 07/28/2023 8:27 AM Admit Type: Inpatient [facility]: [facility] Date of : 1945 Instrument Name: [...] one hemostatic clip was successfully placed. Clip lining stamper: [employer]. There wasno bleeding during, or at the end, of the procedure. The entire examined stomach was normal. Biopsies were taken with acold forceps for Helicobacter pylori testing using CLOtest. The esophagus was normal. Impression: - Normal second portion of the duodenum. - Non-bleeding duodenal ulcer with a flat pigmented spot (Mak Class IIc). Clip was placed. Clip lining stamper: [employer]. - Normal stomach. Biopsied. - Normal esophagus. [...] LAB BLOOD ORDERABLES F inal Result [facility] [address] Department [place] [address] * (ABNORMAL) Basic metabolic panel (07/28/2023 6:29 AM CDT) Pathologist [facility] Sodium 138 135 - 145 mmol/L Potassium, pl 3.9 3.3 - 4.9 mmol/L [facility] Chloride 108 97 - 110 mmol/L [facility] CO2 20(L) 22 - 32 mmol/L [facility] Anion gap 10 2 - 15 mmol/L [facility] BUN 29(H) 6 - 25 mg/dL [facility] Creatinine 0.80 0.80 - 1.30 mg/dL [facility] Glucose 105 70 - 199 mg/dL [facility] Comment: Interpretive Data Fasting glucose >/= 126 [...] 2022. Calcium 8.4(L) 8.5 - 10.3 mg/dL [facility] Blood 07/28/2023 6:29 AM CDT 07/28/2023 6:56 AM CDT us Pedro Luis Brantley DO LAB BLOOD ORDERABLES Final Res ult [facility] [address] Department [place] [address] * (ABNORMAL) CBC without differential (07/28/2023 6:29 AM CDT) [facility] WBC 7.8 3.8 - 9.9 K/cumm Hgb 7.4(L) 13.0 - 17.5 g/dL [facility] Comment: Interpretive Data A reference range for this assay has not been established for patients with an unknown legal sex. Please refer to the laboratory test catalog for established sex-specific reference intervals. Current interpretive data was last revised on 2023. Hct 22.7(L) 38.9 - 50.3 % [facility] Comment: Interpretive Data A reference range for this assay has not been established for patients with an unknown legal sex. Please refer to the laboratory test catalog for established sex-specific reference intervals. Current interpretive data was last revised on 2023. Plt 210 150 - 400 K/cumm [facility] MPV 9.0(L) 9.1 - 12.3 fL [facility] RBC 2.42(L) 4.30 - 5.80 M/cumm [facility] Comment: Interpretive Data A reference range for this assay has not been established for patients with an unknown legal sex. Please refer to the laboratory test catalog for established sex-specific reference intervals. Current interpretive data was last revised on 2023. MCV 93.8 81.3 - 96.4 fL [facility] Comment:MCV delta due to pos sible patient therapy. MCH 30.6 27.1 - 33.3 pg [facility] MCHC 32.6 32.3 - 35.7 g/dL [facility] RDW CV 15.4(H) 11.1 - 14.9 % [facility] RDW SD 49.2(H) 35.7 - 48.1 fL [facility] NRBC abs 0.17(H) 0.00 - 0.01 K/cumm [facility] Blood 07/28/2023 6:29 AM CDT 07/28/2023 6:56 AM CDT us Pedro Luis Brantley DO LAB BLOOD ORDERABLES Final Res ult [facility] [address] Department [place] [address] * Magnesium (07/28/2023 6:29 AM CDT) Magnesium 2.1 1.4 - 2.5 mg/dL Blood 07/28/2023 6:29 AM CDT 07/28/2023 6:56 AM CDT Ebenezer Rosa MD LAB BLOOD ORDERABLES Fin al Result [facility] [address] [facility] [employer] [address] * Phosphorus (07/28/2023 6:29 AM CDT) Phosphorus, pl 2.5 2.3 - 4.5 mg/dL Blood 07/28/2023 6:29 AM CDT 07/28/2023 6:56 AM CDT Ebenezer Rosa MD LAB BLOOD ORDERABLES Fin al Result Performing Organization Address [facility] de Phone Number [facility] [address] [facility] [employer] [address] * Transfuse RBC (07/28/2023 4:26 AM CDT) Blood Avril Douglas MD BLOOD TRANSFUSION ORDERABLES Final Result Performing Organization Address [facility]/ZIP Co de Phone Number [facility] [address] [place] [address] * Transfuse RBC: 1 Units (07/28/2023 4:26 AM CDT) Blood Avril Douglas MD BLOOD TRANSFUSION ORDERABLES Final Result * Prepare RBC: 1 Units (07/28/2023 2:05 AM CDT) Product code [id number] Unit Number [id number] [facility] Product Blood Type OPOS [facility] Dispense Status PRESUMED TRANSFUSED [facility] Blood 07/28/2023 2:05 AM CDT Narrative [facility] - 07/28/2023 10:15 PM CDT Are special requirements needed? (All products are leukoreduced and CMV- safe)- >No Date required:-[id number] LRRBC # of [id number] Reasons:-Hgb <7 g/dL} Avril Douglas MD BLOOD BANK PRODUCT ORDERABLES Final Result Performing Organization Address [facility]/ZIP Co de Phone Number [facility] [address] [facility] [employer] [address] * Transfuse RBC (07/28/2023 12:32 AM CDT) Blood Result [facility] Pedro Luis Brantley DO BLOOD TRANSFUSION ORDERABLES F inal Result Performing Organization Address [facility] Co de Phone Number [facility] [address] [facility] [employer] [address] * Transfuse RBC: 2 Units (07/28/2023 12:32 AM CDT) Blood Result [facility] Pedro Luis Brantley DO BLOOD TRANSFUSION ORDERABLES [...] 2023. Hct 22.2(L) 38.9 - 50.3 % [facility] Blood 07/27/2023 11:2 4 PM CDT 07/28/2023 12:37 AM CDT Pedro Luis Brantley DO LAB BLOOD ORDERABLES Final Res ult Performing Organization Address [facility] Co de Phone Number [facility] [address] [facility] [employer] [address] * Transfuse RBC (07/27/2023 7:49 PM CDT) Blood us Pedro Luis Brantley DO BLOOD TRANSFUSION ORDERABLES F inal Result Performing Organization Address [facility] Co de Phone Number [facility] [address] Department [employer] [address] * Prepare RBC: 2 Units (07/27/2023 5:21 PM CDT) Product code [id number] [facility] Unit Number [id number] [facility] Product Blood Type OPOS [facility] Dispense Status PRESUMED TRANSFUSED [facility] Product code [id number] Unit Number [id number] [facility] Product Blood Type OPOS [facility] Dispense Status PRESUMED TRANSFUSED [facility] Blood 07/27/2023 5:21 PM CDT Narrative [facility] - 07/28/2023 10:15 PM CDT Are special requirements needed? (All products are leukoreduced and CMV- safe)- >No Date required:-[id number] LRRBC # of [id number] Reasons:-Hgb <7 g/dL} us Ebenezer Rosa MD BLOOD BANK PRODUCT ORDER EMELYN Final Result Performing Organization Address [facility] Co de Phone Number [facility] [address] Department [employer] [place], [place] [address] * TRANSTHORACIC ECHO (TTE) COMPLETE W DOPPLER/CF W CONTRAST (07/27/2023 5:07 PM CDT) Anatomical Region Laterality Modality Ultrasound 07/27/2023 3:42 PM CDT Narrative 07/28/2023 5:05 AM CDT [facility] [address] [place] [address] ECHOCARDIOGRAM Patient Name: GAURAVJUDI L : 1945 Study Date: 07/27/2023 3:42:15 PM Gender: M Tech: Location: [id number] Ref.Provider: ERIN MONK Height(Cm): 183 BSA: 2.35 [...] pressure. Electronically Signed By: Parish Monae MD, [facility] 2023-07-28 05:05:41 CDT CC: CC: Procedure Note Parish Monae MD - 07/28/2023 [place] [address] [place] [address] ECHOCARDIOGRAM Patient Name: JUDI ADAM LPatient ID: [id number] : [id number] Date: 07/27/2023 3:42:15 PM Gender: MAccession #: [id number] Tech: RLLocation: [id number] Ref.Provider: ERIN MONKHeight(Cm): 183 BSA: 2.35Weight(Kg): 108.9 [...] 20.0 - 100.0 ] ms MV Decel Gwom544.7 [ 104.0 - 258.0 ] ms MVA PHT9.3 [ 2.0 - 4.0 ] ms MV E/A Ratio1.5 TR Peak Vel2.3 [ 1.0 - 2.8 ] m/s TR Peak PG 22mmHg RVSP36.6 [ 10.0 - 36.0 ] mmHg RA Glsmsexp86.0 mmHg PV Peak Vel1.4 [ 0.4 - [...] pressure. Electronically Signed By: Parish Monae MD, [facility] 2023-07-28 05:05:41 CDT CC: CC: Erin Cobian NP CV ECHO PROCEDURES [facility] Result * (ABNORMAL) Hemoglobin and hematocrit [...] 2023. Hct 18.6(L) 38.9 - 50.3 % [facility] Blood 07/27/2023 4:35 PM CDT 07/27/2023 4:44 PM CDT us Parish Harrell PA LAB BLOOD ORDERABLES F inal Result [facility] [address] Department [employer] [address] * NT-Pro BNP - Add on lab test (07/27/2023 2:41 PM CDT) Acceptable Yes Blood 07/27/2023 2:41 PM CDT 07/27/2023 2:41 PM CDT Narrative [facility] - 07/27/2023 2:41 PM CDT Name of Test->NT-Pro BNP us Erin Cobian NP LAB BLOOD ORDERABLES F inal Result [facility] [address] Department [place] [employer] [place] [address] * Transfuse RBC (07/27/2023 1:56 PM CDT) Blood Lew Garcia MD BLOOD TRANSFUSION ORDNicole COOK Final Result [facility] [address] Department [place] [employer] [place] [address] * Transfuse RBC: 2 Units (07/27/2023 1:56 PM CDT) Blood us Lew Garcia MD BLOOD TRANSFUSION ORDNicole COOK Final Result * [place] [facility] ILL/INJURED PATIENT INIT 30-74 MIN [...] BLOOD TRANSFUSION ANNETTE COOK Final Result [facility] [address] Department [place] [address] * (ABNORMAL) Pro B-type natriuretic peptide (07/27/2023 [...] Final Result Performing Organization Address [facility]/ZIP Co de Phone Number [facility] [address] [employer] [place], [place] [address] * (ABNORMAL) aPTT (07/27/2023 12:05 PM CDT) [...] inal Result Performing Organization Address [facility] Co de Phone Number [facility] [address] [place] [address] * (ABNORMAL) Protime-INR (07/27/2023 12:05 PM CDT) PT 13.9(H) 10.3 - 13.7 sec INR 1.22(H) 0.90 - 1.20 [facility] Comment: Interpretive data Oral anticoagulant therapeutic ranges: Venous thromboembolism prophylaxis or treatment: 2.0-3.0 CARDIOLOGY Standard range: 2.0-3.0 High-intensity range: 2.5-3.5 Refer to indication-specific guidelines for appropriate target ranges for prosthetic heart valve replacement. Current interpretive data was last revised on 2019. Blood 07/27/2023 12:0 5 PM CDT 07/27/2023 12:19 PM CDT Lew Garcia MD LAB BLOOD ORDERABLES F inal Result [facility] [address] Department [place] [address] * (ABNORMAL) CBC without differential (07/27/2023 12:05 PM CDT) WBC 8.0 3.8 - 9.9 K/cumm Hgb 5.7(C) 13.0 - 17.5 g/dL [facility] Comment: Critical result called to and read back by BEATRICE COPE RN on 07 27 2023 at 1242 to Christelle oRmano. Interpretive Data A reference range for this assay has not been established for patients with an unknown legal sex. Please refer to the laboratory test catalog for established sex-specific reference intervals. Current interpretive data was last revised on 2023. Hct 18.4(L) 38.9 - 50.3 % [facility] Plt 270 150 - 400 K/cumm [facility] MPV 9.0(L) 9.1 - 12.3 fL [facility] RBC 1.78(L) 4.30 - 5.80 M/cumm [facility] Comment: Interpretive Data A reference range for this assay has not been established for patients with an unknown legal sex. Please refer to the laboratory test catalog for established sex-specific reference intervals. Current interpretive data was last revised on 2023. MCV 103.4(H) 81.3 - 96.4 fL [facility] MCH 32.0 27.1 - 33.3 pg [facility] MCHC 31.0(L) 32.3 - 35.7 g/dL [facility] RDW CV 15.3(H) 11.1 - 14.9 % [facility] RDW SD 52.0(H) 35.7 - 48.1 fL [facility] NRBC abs 0.11(H) 0.00 - 0.01 K/cumm [facility] Blood 07/27/2023 12:0 5 PM CDT 07/27/2023 12:19 PM CDT Lew Garcia MD LAB BLOOD ORDERABLES F inal Result Performing Organization Address [facility] Co de Phone Number [facility] [address] Department [employer] [address] * Troponin T high-sensitivity 2-hour (07/27/2023 12:05 PM CDT) Trop T hs 21 <=22 ng/L Comment: Interpretive Data For further hscTnT resources including the diagnostic algorithm and an aid in interpretation, copy and paste this link: https://nrl.testcatalog.org/show/hsTrop Current Interpretive Data last revised 2020. Trop T hs delta 1 ng/L [facility] Trop T hs interp Insignificant [facility] Blood 07/27/2023 12:0 5 PM CDT 07/27/2023 12:16 PM CDT Lew Garcia MD LAB BLOOD ORDERABLES F inal Result Performing Organization Address [facility] Co de Phone Number [facility] [address] Department [employer] [address] * CTA Chest Abdomen Pelvis (07/27/2023 10:45 [...] * Folate (07/27/2023 9:14 AM CDT) Pathologist [facility] Folic acid 9.5 >=5.0 ng/mL Blood 07/27/2023 9:14 AM CDT 07/27/2023 9:36 AM CDT Nighat Angeles MD LAB BLOOD ORDERABLES Final Result [facility] [address] Department [place] [address] * (ABNORMAL) Iron profile w/ IBC (07/27/2023 9:14 AM CDT) Pathologist [facility] Iron 125 50 - 150 mcg/dL Comment: Interpretive Data A reference range for this assay has not been established for patients with an unknown legal sex. Please refer to the laboratory test catalog for established sex-specific reference intervals. Current interpretive data was last revised on 2023. TIBC 234(L) 250 - 400 mcg/dL [facility] Transferrin saturation 53(H) 20 - 50 % [facility] Blood 07/27/2023 9:14 AM CDT 07/27/2023 9:36 AM CDT Nighat Angeles MD LAB BLOOD ORDERABLES Final Result Performing Organization Address City/[facility]/ZIP Co de Phone Number [facility] [address] [facility] [place] [address] * Folate - Add on lab test (07/27/2023 9:14 AM CDT) Acceptable Yes Blood 07/27/2023 9:14 AM CDT 07/27/2023 1:48 PM CDT Narrative [facility] - 07/27/2023 1:48 PM CDT Name of Test->Folate Nighat Angeles MD LAB BLOOD ORDERABLES Final Result Performing Organization Address [facility] Co de Phone Number [facility] [address] [facility] [employer] [address] * Vitamin B12 - Add on lab test (07/27/2023 9:14 AM CDT) Acceptable Yes Blood 07/27/2023 9:14 AM CDT 07/27/2023 1:48 PM CDT Narrative [facility] - 07/27/2023 1:48 PM CDT Name of Test->Vitamin B12 Nighat Angeles MD LAB BLOOD ORDERABLES Final Result Performing Organization Address City/[facility]/ZIP Co de Phone Number [facility] [address] [facility] [place] [address] * Iron profile - Add on lab test (07/27/2023 9:14 AM CDT) Acceptable Yes Blood 07/27/2023 9:14 AM CDT 07/27/2023 1:45 PM CDT Narrative [facility] - 07/27/2023 1:45 PM CDT Name of Test->Iron profile Nighat Angeles MD LAB BLOOD ORDERABLES Final Result Performing Organization Address [facility] Co de Phone Number [facility] [address] Department [place] [address] * TSH reflex to free T4 (07/27/2023 9:14 AM CDT) TSH 1.48 0.30 - 4.20 mcIUnit/mL Blood 07/27/2023 9:14 AM CDT 07/27/2023 9:21 AM CDT Lew Garcia MD LAB BLOOD ORDERABLES F inal Result Performing Organization Address [facility] Co de Phone Number [facility] [facility] [address] Department [place] [employer] [place] [address] * Phosphorus (07/27/2023 9:14 AM CDT) Phosphorus, pl 2.9 2.3 - 4.5 mg/dL Blood 07/27/2023 9:14 AM CDT 07/27/2023 9:21 AM CDT Lew Garcia MD LAB BLOOD ORDERABLES F inal Result Performing Organization Address [facility] [employer] de Phone Number [facility] [address] [facility] [employer] [place], [place] [id number] * (ABNORMAL) Magnesium (07/27/2023 9:14 AM CDT) Magnesium 2.6(H) 1.4 - 2.5 mg/dL Blood 07/27/2023 9:14 AM CDT 07/27/2023 9:21 AM CDT Lew Garcia MD LAB BLOOD ORDERABLES F inal Result Performing Organization Address [facility] [employer] de Phone Number [facility] [address] [facility] [place] [address] * Vitamin B12 (07/27/2023 9:14 AM CDT) Pathologist [facility] Vitamin B12 388 230 - 1,250 pg/mL Blood 07/27/2023 9:14 AM CDT 07/27/2023 9:21 AM CDT Lew Garcia MD LAB BLOOD ORDERABLES F inal Result Performing Organization Address [facility] de Phone Number [facility] [address] Department [employer] [place], [place] [id number] * Troponin T high-sensitivity series (baseline, 2hr, 4hr, 6hr) (07/27/2023 9:14 AM CDT) Pathologist [facility] Trop T hs 20 <=22 ng/L Comment: Interpretive Data For further hscTnT resources including the diagnostic algorithm and an aid in interpretation, copy and paste this link: https://nrl.testcatalog.org/show/hsTrop Current Interpretive Data last revised 2020. Blood 07/27/2023 9:14 AM CDT 07/27/2023 9:21 AM CDT Lew Garcia MD LAB BLOOD ORDERABLES F inal Result Performing Organization Address [facility] [employer] de Phone Number [facility] [address] Department [place], [place] [id number] * Type and screen (07/27/2023 9:14 AM CDT) Pathologist [facility] Chacorta, indirect Negative ABO Rh O Positive [facility] Blood 07/27/2023 9:14 AM CDT 07/27/2023 9:42 AM CDT Narrative [facility] - 07/27/2023 10:24 AM CDT Has the patient had Daratumumab or Isatuximab in the past 6 months?->Unknown Lew Garcia MD LAB BLOOD BANK TEST OR DERABLES Final Result Performing Organization Address [facility] de Phone Number [facility] [address] Department [employer] [place] [address] * Prepare RBC: 2 Units (07/27/2023 8:41 AM CDT) Pathologist [facility] Product code [id number] [facility] Unit Number [id number] [facility] Product Blood Type OPOS [facility] Dispense Status PRESUMED TRANSFUSED [facility] Product code [id number] Unit Number [id number] [facility] Product Blood Type OPOS [facility] Dispense Status PRESUMED TRANSFUSED [facility] Blood 07/27/2023 8:41 AM CDT Narrative [facility] - 07/28/2023 10:15 AM CDT Are special requirements needed? (All products are leukoreduced and CMV- safe)- >No Date required:-[id number] LRRBC # of [id number] Reasons:-Hgb <7 g/dL} Lew Garcia MD BLOOD BANK PRODUCT ORD ERABLES Final Result Performing Organization Address [facility] de Phone Number [facility] [address] Department [place] [employer] [place] [address] * eGFR (07/27/2023 8:21 AM CDT) Pathologist [facility] eGFR 90 mL/min/1. 73 m2 Comment: Interpretive [...] MD LAB BLOOD ORDERABLES F inal Result [facility] [address] Department [place] [address] * (ABNORMAL) Differential, auto (07/27/2023 8:21 AM CDT) Neutrophil abs 6.8(H) 1.7 - 6.5 K/cumm Imm gran abs 0.1 0.0 - 0.1 K/cumm [facility] Lymphocyte abs 1.0 0.8 - 3.3 K/cumm [facility] Monocyte abs 0.7 0.2 - 0.8 K/cumm [facility] Eosinophil abs 0.0 0.0 - 0.5 K/cumm [facility] Basophil abs 0.0 0.0 - 0.1 K/cumm [facility] Neutrophil pct 79.0 % [facility] Comment: Interpretive Data Percent cell count reference ranges are not reported, since discordance with absolute values may lead to misinterpretation of CBC data. Current Interpretive Data was last revised on 2018. Imm gran pct 0.9 % [facility] Comment: Interpretive Data Percent cell count reference ranges are not reported, since discordance with absolute values may lead to misinterpretation of CBC data. Current Interpretive Data was last revised on 2018. Lymphocyte pct 11.8 % [facility] Comment: Interpretive Data Percent cell count reference ranges are not reported, since discordance with absolute values may lead to misinterpretation of CBC data. Current Interpretive Data was last revised on 2018. Monocyte pct 7.8 % [facility] Comment: Interpretive Data Percent cell count reference ranges are not reported, since discordance with absolute values may lead to misinterpretation of CBC data. Current Interpretive Data was last revised on 2018. Eosinophil pct 0.2 % [facility] Comment: Interpretive Data Percent cell count reference ranges are not reported, since discordance with absolute values may lead to misinterpretation of CBC data. Current Interpretive Data was last revised on 2018. Basophil pct 0.3 % [facility] Comment: Interpretive Data Percent cell count reference ranges are not reported, since discordance with absolute values may lead to misinterpretation of CBC data. Current Interpretive Data was last revised on 2018. Blood 07/27/2023 8:21 AM CDT 07/27/2023 8:25 AM CDT us Lew Garcia MD LAB BLOOD ORDERABLES F inal Result [facility] [address] Department [place] [address] * (ABNORMAL) Comprehensive metabolic panel (07/27/2023 8:21 AM CDT) Sodium 138 135 - 145 mmol/L Potassium, pl 4.6 3.3 - 4.9 mmol/L [facility] Comment:Hemolyzed; potassium value may be falsely elevated by as much as 0.6 - 1.0 mmol/L. Suggest redraw and reanalysis Chloride 105 97 - 110 mmol/L [facility] CO2 19(L) 22 - 32 mmol/L [facility] Anion gap 14 2 - 15 mmol/L [facility] BUN 33(H) 6 - 25 mg/dL [facility] Creatinine 0.85 0.80 - 1.30 mg/dL [facility] Glucose 136 70 - 199 mg/dL [facility] Comment: Interpretive Data Fasting glucose >/= 126 [...] 2022. Calcium 8.5 8.5 - 10.3 mg/dL [facility] Bilirubin, total 0.5 0.1 - 1.2 mg/dL [facility] Protein, pl 5.8(L) 6.5 - 8.5 g/dL [facility] Albumin 3.1(L) 3.5 - 5.0 g/dL [facility] Alk phos 61 40 - 130 Units/L [facility] ALT 31 7 - 55 Units/L [facility] Comment:Moderately Hemolyzed Specimen AST 46 10 - 50 Units/L [facility] Comment:Moderately Hemolyzed Specimen Blood 07/27/2023 8:21 AM CDT 07/27/2023 8:25 AM CDT us Lew Garcia MD LAB BLOOD ORDERABLES F inal Result [facility] [address] Department [place] [address] * (ABNORMAL) CBC with auto differential (07/27/2023 8:21 AM CDT) WBC 8.7 3.8 - 9.9 K/cumm Hgb 5.5(C) 13.0 - 17.5 g/dL [facility] Comment: Critical result called to and read [...] 2023. Hct 17.6(L) 38.9 - 50.3 % [facility] Plt 315 150 - 400 K/cumm [facility] MPV 9.1 9.1 - 12.3 fL [facility] RBC 1.73(L) 4.30 - 5.80 M/cumm [facility] Comment: Interpretive Data A reference range for this assay has not been established for patients with an unknown legal sex. Please refer to the laboratory test catalog for established sex-specific reference intervals. Current interpretive data was last revised on 2023. MCV 101.7(H) 81.3 - 96.4 fL [facility] MCH 31.8 27.1 - 33.3 pg [facility] MCHC 31.3(L) 32.3 - 35.7 g/dL [facility] RDW CV 14.9 11.1 - 14.9 % [facility] RDW SD 50.2(H) 35.7 - 48.1 fL [facility] NRBC abs 0.11(H) 0.00 - 0.01 K/cumm [facility] Blood 07/27/2023 8:21 AM CDT 07/27/2023 8:25 AM CDT us Lew Garcia MD LAB BLOOD ORDERABLES F inal Result [facility] [address] Department [place] [address] * ECG 12 lead (07/27/2023 8:00 AM CDT) 07/27/2023 8:00 AM CDT Narrative [facility] - 07/27/2023 10:50 AM CDT Vent Rate: 122 bpm RR Interval: 489 msec [place] Interval: 0 msec QRS Duration: 110 msec QT Interval: 371 msec QTC Interval: 444 msec P-R-T [place]: 0 - -37 - 71 degrees IMPRESSION: ATRIAL FIBRILLATION WITH RAPID VENTRICULAR RESPONSE LEFT AXIS DEVIATION NONSPECIFIC ST \T\ T-WAVE ABNORMALITY ABNORMAL ECG Electronically Signed By: Javon Lopez MD [facility] us Lew Garcia MD ECG ORDERABLES Final Result [facility] documented in this encounter Visit Diagnoses Diagnosis [...] 07/27/2023 documented in this encounter Care Teams Analytical Technician Relationship Specialty Start Date End Date Radha Lozada MD [facility] [place] [address] PCP - General Family Medicine 06/25/23 04/29/24 Kali Reddy MD Consulting Physician Cardiology 05/19/19 Keaton Lynn MD [address] [facility] [address] [place] [address] Consulting Physician Cardiothoracic Surgery 06/07/23 documented as of this encounter
--- OUTSIDE RECORDS SUMMARY | 2024-09-30 02:52 | XMS_ITS | Encounter Summary ---
Author Organization [facility] Healthcare Address [address] [place] [address] Care Team Providers Care Supervisor Drawing Name Role Phone Kali Reddy MD Unavailable Keaton Lynn MD Unavailable Radha Lozada MD Primary Care Provider [phone] Reason for Visit * Reason Onset Date Comments Cardiac Rehab 07/19/2023 Encounter Details Date Type Department Care Team (Late st Contact Info) Description 07/19/[address] [facility] Medical Group Cardiology [address] [facility] [address] [place] [address] Kali Reddy MD [address] [facility] [address] [place] [address] Cardiac Rehab Social History Tobacco [...] week 07/12/2023 How often do you attend [facility] or anglican services? More than 4 times [...] place to sleep or slept in a fdc (including now)? 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 Uploaded in [employer] documented in this encounter Plan of Treatment Not on file documented as of this encounter Visit Diagnoses Not on filedocumented in this encounter Care Teams Supervisor Drawing Relationship Specialty Start Date End Date Radha Lozada MD [address] [place] [address] [place] [address] PCP - General Family Medicine 06/25/23 04/29/24 Kali Reddy MD Consulting Physician Cardiology 05/19/19 Keaton Lynn MD [address] [facility] [address] [place] [address] Consulting Physician Cardiothoracic Surgery 06/07/23 documented as of this encounter
--- OUTSIDE RECORDS SUMMARY | 2024-09-30 02:52 | XMS_ITS | Encounter Summary ---
Author Organization [facility] Healthcare Address [address] [place] [address] Care Team Providers Care Jack Tamp Operator Name Role Phone Kali Reddy MD Unavailable Keaton Lynn MD Unavailable Radha Lozada MD Primary Care Provider [phone] Reason for Visit * Reason Onset Date Comments Arrhythmia 07/17/2023 Encounter Details Date Type Department Care Team (Late st Contact Info) Description 07/17/2023 Telephone Cardiovascular and Thoracic Surgery [address] [facility] [address] [place] [address] Hernan Helton, RN [address] [facility] [address] [place] [address] Arrhythmia Social History Tobacco Use [...] week 07/12/2023 How often do you attend [facility] or anglican services? 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, and we discussed the burst of [...] on filedocumented in this encounter Care Teams Jack Tamp Operator Relationship Specialty Start Date End Date Radha Lozada MD [address] [place] [address] [place] [address] PCP - General Family Medicine 06/25/23 04/29/24 Kali Reddy MD Consulting Physician Cardiology 05/19/19 Keaton Lynn MD [address] [facility] [address] [place] [address] Consulting Physician Cardiothoracic Surgery 06/07/23 documented as of this encounter
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
--- OUTSIDE RECORDS SUMMARY | 2024-09-30 02:52 | XMS_ITS | Encounter Summary ---
Author Organization [facility] Healthcare Address [address] [place] [address] Care Team Providers Care Metal Riveting Machine Operator Name Role Phone Kali Reddy MD Unavailable [phone] Keaton Lynn MD Unavailable [phone] Radha Lozada MD Primary Care Provider [phone] Reason for Visit * Reason Onset Date Comments Reaction to flu/covid vaccine 07/26/2023 Encounter Details Date Type Department Care Team (Late st Contact Info) Description 07/26/2023 Telephone Cardiovascular and Thoracic Surgery [address] [facility] [address] [place] [address] Hernan Helton, RN [address] [facility] [address] [place] [address] Reaction to flu/covid vaccine Social [...] week 07/12/2023 How often do you attend [facility] or scientology services? More than 4 times per year 07/12/2023 Do you belong to any clubs o r organizations such as advent groups, unions, fraternal or athletic groups, or [...] slept in a usp (including now)? 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
--- OUTSIDE RECORDS SUMMARY | 2024-09-30 02:52 | XMS_ITS | Encounter Summary ---
Author Organization [facility] Address [address] [place] [address] Phone Care Team Providers Care Dining Services Manager Name Role Phone Kali Reddy MD Unavailable [phone] Keaton Lynn MD Unavailable Radha Lozada MD Primary Care Provider [phone] Encounter Details Date Type Department Care Team (Late st Contact Info) Description 07/29/2023 Telephone [facility] [address] [facility] [address] [place] [address] Chaim Moon PA [address] [place] [address] Social History Tobacco Use Types [...] 07/30/2023 How often do you attend [facility] or confucianist services? More than 4 times per year 07/30/2023 Do you belong to any clubs o r organizations such as shinto groups, unions, fraternal or athletic groups, or [...] a group home (including now)? 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 Brooks outpatient for imaging review and discuss MCA aneurysm management/follow up. Patient initially staffed with Dr. Calles who was adjuster piano action at [facility]. Aneurysm incidentally found during workup. Thank you, Chaim Moon PA-C [facility] Neurosurgery documented in this encounter Plan of Treatment Not on file documented as of this encounter Visit Diagnoses Not on filedocumented in this encounter Care Teams Dining Services Manager Relationship Specialty Start Date End Date Radha Lozada MD [address] [place] [address] [place] [address] PCP - General Family Medicine 06/25/23 04/29/24 Kali Reddy MD Consulting Physician Cardiology 05/19/19 Keaton Lynn MD [address] [facility] [address] [place] [address] Consulting Physician Cardiothoracic Surgery 06/07/23 documented as of this encounter
--- OUTSIDE RECORDS SUMMARY | 2024-09-30 02:52 | XMS_ITS | Encounter Summary ---
Author Organization [facility] Healthcare Address [address] [place] [address] Care Team Providers Care Preventive Medicine Officer Name Role Phone Kali Reddy MD Unavailable Keaton Lynn MD Unavailable [phone] Radha Lozada MD Primary Care Provider [phone] Reason for Visit * Auth/Cert (Routine) Specialty Diagnoses / Procedures Referred By Contac t Referred To Contact Diagnoses Anemia Atrial fibrillation with rapid ventricular response (CMS/HCC) (HCC) Macrocytic anemia Procedures N Referral ID Status Reason Start Date Expiration Date Visits Re quested Visits Authorized [id number] 1 1 Encounter Details Date Type Department Care Team (Late st Contact Info) Description 07/28/2023 8:40 AM CDT Anesthesia Event [facility] [address] [place] [address] Lew Chaparro MD [facility] [facility] [place] [address] Anesthesia Record Procedure Summary Procedure Name Responsible [...] filed. 905 An Stop 09 Release from [facility] Med Name Total lidocaine (cardiac) syringe 2 [...] Mid-line; Sternum; 09/16/24 (Retired LDA, Removed/Completed by [employer] with LDA Utility); 1213 (Retired LDA, Removed/Completed by [employer] with LDA Utility) 07/10/23 1243 by Korina Montez, MAHIN 09/16/24 1213 by Discharge Provider, Automatic RETIRED Surgical Site 07/11/23; 1900; Right; Groin; 09/16/24 (Retired LDA, Removed/Completed by [employer] with LDA Utility); 1213 (Retired LDA, Removed/Completed by [employer] with LDA Utility) 07/11/23 1900 by Carlita [...] How often do you attend chur or moravian services? 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 Electronically Signed By: Parish Monae MD, [facility] 2023-07-28 05:05:41 CDT Patient Active Problem [...] History: Diagnosis Date Anemia Arthritis Arthritis; Comments: [facility] 10/19/2015 - Atrial fibrillation (CMS/HCC) (HCC) Coronary artery disease HX OTHER MEDICAL ascending aortic aneurysm; Comments: [facility] 10/19/2015 - Hypertension Hypertension Sleep apnea Sleep apnea Past Surgical History: Procedure Laterality Date CORONARY ARTERY BYPASS GRAFT N/A 07/14/2023 No Known Allergies Med List Status: Pharmacy Complete Set By: [facility] at 07/27/2023 8:54 AM Taking? Last Dose [...] Medication protocol when under care of a DELI SLICER Planned anesthesia: General TIVA Induction: Induction: intravenous. [...] mg documented in this encounter Care Teams Preventive Medicine Officer Relationship Specialty Start Date End Date Radha Lozada MD [address] [place] [address] [place] [address] PCP - General Family Medicine 06/25/23 04/29/24 Kali Reddy MD Consulting Physician Cardiology 05/19/19 Keaton Lynn MD [address] [facility] [address] [place] [address] Consulting Physician Cardiothoracic Surgery 06/07/23 documented as of this encounter
--- OUTSIDE RECORDS SUMMARY | 2024-09-30 02:52 | XMS_ITS | Encounter Summary ---
Author Organization [facility] Healthcare Address [address] [place] [address] Care Team Providers Care Body Stylist Name Role Phone Kali Reddy MD Unavailable Keaton Lynn MD Unavailable [phone] Radha Lozada MD Primary Care Provider [phone] Encounter Details Date Type Department Care Team (Late st Contact Info) Description 07/25/2023 Orders Only Cardiovascular and Thoracic Surgery [address] [facility] [address] [place] [address] Keaton Lynn MD [address] [facility] [address] [place] [address] Social History Tobacco Use Types [...] How often do you attend chur or buddhist services? More than 4 times per year 07/12/2023 Do you belong to any clubs o r organizations such as episcopal groups, unions, fraternal or athletic groups, or [...] place to sleep or slept in a half-way (including now)? 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 [place] [address] PCP - General Family Medicine 06/25/23 04/29/24 Kali Reddy MD Consulting Physician Cardiology 05/19/19 Keaton Lynn MD [address] [facility] [address] [place] [address] Consulting Physician Cardiothoracic Surgery 06/07/23 documented as of this encounter
--- OUTSIDE RECORDS SUMMARY | 2024-09-30 02:53 | XMS_ITS | Encounter Summary ---
Author Organization [facility] Group Address [address] [facility] [address] [place] [address] Care Team Providers Care Geological Engineer Name Role Phone Noemi Willis NP Primary Care Provider [phone] Kali Reddy MD Unavailable Reason for Referral * Hospital - Outpatient (Routine) - Closed Specialty Diagnoses / Procedures Referred By Bette velazquez Referred To Contact Radiology Diagnoses Ascending aortic aneurysm (HCC) Procedures CTA Chest W Contrast Kali Reddy MD Phone: tel: fax: [id number] [place] [address] Referral ID Status Reason Start Date Expiration Date Visits Re quested Visits Authorized [id number] Closed 05/26/2020 06/25/2021 1 1 Reason for Visit * Reason Comments Aneurysms Encounter Details Date Type Department Care Team (Latest Contact Info) Description 05/26/2020 10:00 AM CDT Office Visit [facility] Cardiology [address] [facility] [address] [place] [address] Kali Reddy MD [address] [facility] [address] [place] [address] Ascending aortic aneurysm (CMS/HCC) (Primary Dx); Pure hypercholesterolemia Social History Tobacco Use Types Packs/Day Years Used Date Smoking Tobacco: Never Smokeless Tobacco: Never Alcohol Use Standard Drinks/Week Comments Yes 0 (1 standard drink = 0.6 oz pur e alcohol) Socially Sex and Gender Information Value Date Recorded Sex Assigned at Not on file 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 [facility] [address] [address] Cardiology MD Kali Mckeon, MD Wellington Dugan, MD Ian Sahni, DO Parish Monae, MD Osmin Barbosa, MD Nicolas Wilson MD K. Bryan Trimmer, DO Rory Dowling, MD Beth Smith, PARTS DATA WRITER Devi Carrasco, PARTS DATA WRITER Patricia Campbell, PARTS DATA WRITER Patient Name: Omar Adam Provider: Kali Reddy [...] This note was dictated with voice-recognition software, director of pediatric rehabilitation errors may be present. Omra Adam is a very pleasant 74 y.o. [...] History: Diagnosis Date ??? Arthritis Arthritis; Comments: [facility] 10/19/2015 - ??? HX OTHER MEDICAL ascending aortic aneurysm; Comments: [facility] 10/19/2015 - ??? Hypertension Hypertension ??? [...] documented as of this encounter Care Teams Geological Engineer Relationship Specialty Start Date End Date Noemi Willis NP PCP - General 06/19/18 06/24/23 Kali Reddy MD Consulting Physician Cardiology 05/19/19 documented as of this encounter
--- OUTSIDE RECORDS SUMMARY | 2024-09-30 02:53 | XMS_ITS | Encounter Summary ---
Author Organization [facility] Healthcare Address [address] [place] [address] Care Team Providers Care Local Tanker Truck Driver Name Role Phone Kali Reddy MD Unavailable [phone] Keaton Lynn MD Unavailable [phone] Radha Lozada MD Primary Care Provider [phone] Reason for Visit * Auth/Cert (Routine) Specialty Diagnoses / Procedures Referred By Contac t Referred To Contact Diagnoses Aneurysm of ascending aorta without rupture (HCC) Aneurysm of ascending aorta without rupture (HCC) [I71.21] Procedures AZ CATH PLMT L HRT & ARTS W/NJX & ANGIO IMG S&I LEFT HEART CATHETERIZATION WITH CORONARY ANGIOGRAPHY AND WITH OR WITHOUT LEFT VENTRICULOGRAM 59143 Referral ID Status Reason Start Date Expiration Date Visits Re quested Visits Authorized [id number] 1 1 Encounter Details Date Type Department Care Team (Latest Contact Info) Description 06/28/2023 6:51 AM CDT - 06/28/2023 2:19 PM CDT Hospital Encounter [facility] [address] [place] [address] Nicolas Golden MD [address] [facility] [address] [place] [address] Aneurysm of ascending aorta without [...] on file 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 - These medications may make [...] home diet [] Special diet Instructed by Learning Disabilities Specialist ACTIVITY You have been given medications which [...] ANGIOGRAPHY AND WITH OR WITHOUT LEFT VENTRICULOGRAM 20372 Source Note - Aviva Perez PA - 06/21/2023 10:45 AM CDT Cardiothoracic Surgery Patient Name: Omar Adam : 1945 PCP: Noemi Willis NP , Dr. Radha Lozada Referred by: Dr. Kali Reddy Date of Visit: 06/21/23 Chief Complaint: Ascending Aortic Aneurysm HPI: mOar Adam is a 77 y.o. male presenting [...] is primarily with heavy lifting. 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 [facility] Cardiology [facility] [facility], [id number], [address] Left Heart Catheterization Procedure Report 77 year [...] and draped in sterile fashion. A 6 Portuguese sheath was inserted in the Right Radial [...] from the original result were not included. [facility] Cardiology ?? [address] [place] [address], [id number] ?? , [facility] ?? Left Heart Catheterization Procedure Report 77 [...] and draped in sterile fashion. A 6 Portuguese sheath was inserted in the Right Radial [...] 06/28/2023 documented in this encounter Care Teams Local Tanker Truck Driver Relationship Specialty Start Date End Date Radha Lozada MD [facility] [place] [address] PCP - General Family Medicine 06/25/23 04/29/24 Kali Reddy MD Consulting Physician Cardiology 05/19/19 Keaton Lynn MD [address] [facility] [address] [place] [address] Consulting Physician Cardiothoracic Surgery 06/07/23 documented as of this encounter
--- OUTSIDE RECORDS SUMMARY | 2024-09-30 02:53 | XMS_ITS | Encounter Summary ---
Author Organization [facility] Address [address] [facility] [address] [place] [address] Care Team Providers Care Franchise Business Consultant Name Role Phone Noemi Willis NP Primary Care Provider [phone] Kali Reddy MD Unavailable [phone] Reason for Referral * MRI/CAT/PET Scan (Routine) - Closed Specialty Diagnoses / Procedures Referred By Contac t Referred To Contact Radiology Diagnoses Aneurysm of ascending aorta without rupture (HCC) Procedures CTA Chest W WO Contrast CTA Chest W Contrast Kali Reddy MD [address] [place] [address] Phone: tel: fax: [facility] [address] [place] [address] Referral ID Status Reason Start Date Expiration Date Visits Re quested Visits Authorized [id number] Closed 06/06/2023 07/05/2024 1 1 * Consultation (Routine) - Closed Specialty Diagnoses / Procedures Referred By Contcristiano t Referred To Contact Cardiothoracic Surgery Diagnoses Aneurysm of ascending aorta without rupture (HCC) Kali Reddy MD [address] [place] [address] Phone: tel: fax: Keaton Mcgregor MD [address] [place] [address] Phone: tel: fax: Referral ID Status Reason Start Date Expiration Date V isits Requested Visits Authorized [id number] Closed Specialty Services Required 06/06/2023 07/05/2024 1 1 Question Answer Please select the performing region: [facility] [[id number]] Please select the performing department: [facility] [[id number]] To provider: KEATON MCGREGOR [[id number]] # of visits: 1 Reason for Visit * Reason Comments pure hypercholesterolemia Encounter Details Date Type Department Care Team (Late st Contact Info) Description 06/06/2023 10:15 AM CDT Office Visit [facility] Cardiology [address] [facility] [address] [place] [address] Kali Reddy MD [facility] [facility] [address] [place] [address] Need for lipid screening (Primary [...] on file 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 [facility] Cardiology [address] [facility] [address] [address] Cardiology Yariel Hills, MD Kali Reddy, MD Wellington Dugan, MD Parish Monae, MD Kilo Sims, MD Johnny Maher, MD Osmin Barbosa, MD Nicolas Golden, MD Best Ramirez, MD Javon Lopez, MD Rory Dowling, MD Beth Smith, WELDING LEAD BURNER Erin Monk, WELDING LEAD BURNER Crystal Pipkins, WELDING LEAD BURNER Patient Name: Omar Adam Provider: Kali Reddy [...] This note was dictated with voice-recognition software, monorail operator errors may be present. Omar Adam is [...] (HCC) documented in this encounter Care Teams Franchise Business Consultant Relationship Specialty Start Date End Date Noemi Willis NP PCP - General 06/19/18 06/24/23 Kali Reddy MD Consulting Physician Cardiology 05/19/19 documented as of this encounter
--- OUTSIDE RECORDS SUMMARY | 2024-09-30 02:53 | XMS_ITS | Encounter Summary ---
Author Organization [facility] Healthcare Address [address] [place] [address] Care Team Providers Care Framing Machine Tender Name Role Phone Kali Reddy MD Unavailable Keaton Lynn MD Unavailable [phone] Radha Lozada MD Primary Care Provider [phone] Reason for Visit * Auth/Cert (Routine) Specialty Diagnoses / Procedures Referred By Contac t Referred To Contact Diagnoses Aneurysm of ascending aorta without rupture (HCC) Aneurysm of ascending aorta without rupture (HCC) [I71.21] Procedures MS -AORT GRF W/CARD BYP F/AORTIC DS OTH/THN DSJ REPLACEMENT OF ASCENDING AORTA Referral ID Status Reason Start Date Expiration Date Visits Re quested Visits Authorized [id number] 1 1 Encounter Details Date Type Department Care Team (Late st Contact Info) Description 07/10/2023 11:21 AM CDT Anesthesia Event [facility] Operating Room [address] [place] [address] Herbie Mckinney MD PhD [address] [place] [address] Timbo Ruffin MD [address] [place] [address] Anesthesia Record Procedure Summary Procedure Name Responsible [...] Mid-line; Sternum; 09/16/24 (Retired LDA, Removed/Completed by [facility] with LDA Utility); 1213 (Retired LDA, Removed/Completed by [facility] with LDA Utility) 07/10/23 1243 by Korina [...] Location: Mediastinal; Size: 24 Fr; Drainage System: [place]/nonsuction water seal drainage, Suction; Sutures Placed: 1; [...] on file 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 Gender Identity Not on file Sexual Orientation Not on file documented as of this encounter OR Notes * Anesthesia Postprocedure Evaluation - Herbie Mckinney MD PhD - 07/10/2023 4:26 PM CDT Patient: Omar Adam Procedure Summary Date: 07/10/23 Room / Location: [facility] 02 / [facility] Anesthesia Start: 1121 Anesthesia [...] code: KELLEY placement and diagnostic exam, non-congenital (71176) ICD code(s) for medical necessity: I35.1 - [...] inferior: normal 16- Apical septal: normal 17- Sp[place]: normal Valves: Aortic Valve: Annulus: normal Leaflet [...] provider: Herbie Mckinney MD PhD Placed by: BEAM DEPARTMENT SUPERVISOR: Tereso Chavez CRNA Procedure prep: Patient position: [...] provider: Herbie Mckinney MD PhD Placed by: BEAM DEPARTMENT SUPERVISOR: Tereso Chavez CRNA Procedure prep: Patient position: [...] original note were not included. Anesthesia Evaluation Oamr Adam is a 77 y.o. male Procedure(s): [...] Medical History: Diagnosis Date Arthritis Arthritis; Comments: [facility] 10/19/2015 - HX OTHER MEDICAL ascending aortic aneurysm; Comments: [facility] 10/19/2015 - Hypertension Hypertension Sleep apnea [...] Mcallister, Bre, CCP 1403 15 mEq Given Mcallister, Bre, CCP 1432 10 mEq Given Mcallister, [...] Mcallister, CCP PLATELETS - CROSSMATCHED W2011 23 [id number] (mL) Date/Time Rate/Volume Action Admin User Audit 07/10/23 1455 New Bag Herbie Mckinney MD PhD 1456 340 mL Stopped Herbie Mckinney MD PhD FFP - CROSSMATCHED W2024 23 [id number] (mL) Date/Time Rate/Volume Action Admin User Audit [...] Procedure Name Priority Date/Time Associated Diagnosis Comments MS AN PROCEDURE PLACEHOLDER Routine 07/10/2023 12:46 PM CDT MS AN PROCEDURE PLACEHOLDER Routine 07/10/2023 12:45 PM CDT PULMONARY ARTERY CATH Routine 07/10/2023 12:45 PM CDT BW AN SHEATH INTRODUCER PERFORMABLE Routine 07/10/2023 12:45 PM CDT MS AN PROCEDURE PLACEHOLDER Routine 07/10/2023 12:45 PM CDT MS AN CENTRAL LINE QUADRUPLE LUMEN Routine 07/10/2023 12:45 PM CDT MS AN PROCEDURE PLACEHOLDER Routine 07/10/2023 12:44 PM CDT MS AN PROCEDURE PLACEHOLDER Routine 07/10/2023 12:44 PM CDT MS AN PROCEDURE PLACEHOLDER Routine 07/10/2023 12:30 PM CDT MS AN ELECTIVE ENDOTRACHEAL AIRWAY Routine 07/10/2023 12:30 PM CDT documented in this encounter Results * MS AN PROCEDURE PLACEHOLDER (07/10/2023 12:46 PM CDT) [...] code: KELLEY placement and diagnostic exam, non-congenital (07065) ICD code(s) for medical necessity: I35.1 - [...] inferior: normal 16- Apical septal: normal 17- Sp[place]: normal Valves: Aortic Valve: Annulus: normal Leaflet [...] AN SHEATH INTRODUCER PERFORMABLE, PULMONARY ARTERY CATH, MS AN PROCEDURE PLACEHOLDER (2:45 PM CDT) Narrative [...] PhD ANESTHESIA ORDERABLES Fi nal Result * MS AN CENTRAL LINE QUADRUPLE LUMEN, MS AN PROCEDURE PLACEHOLDER (07/10/2023 12:45 PM CDT) Narrative Herbie Mckinney MD PhD - 07/10/2023 12:45 PM CDT Herbie Mckinney MD PhD ? 07/10/2023 12:45 PM Central Venous Line Patient location: OR Indication: central venous access and CVP monitoring Staff: Supervising provider: Herbie Mckinney MD PhD Placed by: BEAM DEPARTMENT SUPERVISOR: Tereso Chavez CRNA Procedure prep: Patient position: [...] PhD ANESTHESIA ORDERABLES Fi nal Result * MS AN PROCEDURE PLACEHOLDER (07/10/2023 12:44 PM CDT) [...] ORDERABLES Ed ited Result - Final * MS AN PROCEDURE PLACEHOLDER (07/10/2023 12:44 PM CDT) [...] PhD ANESTHESIA ORDERABLES Fi nal Result * MS AN ELECTIVE ENDOTRACHEAL AIRWAY, MS AN PROCEDURE PLACEHOLDER (07/10/2023 12:30 PM CDT) [...] 07/10/2023 documented in this encounter Care Teams Framing Machine Tender Relationship Specialty Start Date End Date Radha Lozada MD [address] [place] [address] [place] [address] PCP - General Family Medicine 06/25/23 04/29/24 Kali Reddy MD Consulting Physician Cardiology 05/19/19 Keaton Lynn MD [address] [facility] [address] [place] [address] Consulting Physician Cardiothoracic Surgery 06/07/23 documented as of this encounter
--- OUTSIDE RECORDS SUMMARY | 2024-09-30 02:53 | XMS_ITS | Encounter Summary ---
Author Organization [facility] Healthcare Address [address] [place] [address] Care Team Providers Care Fiscal Agent Name Role Phone Noemi Willis NP Primary Care Provider [phone] Kali Reddy MD Unavailable Reason for Referral * Hospital - Outpatient (Routine) - Closed Specialty Diagnoses / Procedures Referred By Contac t Referred To Contact Radiology Diagnoses Ascending aortic aneurysm (HCC) Procedures CTA Chest W Contrast Kali Reddy MD Phone: tel: fax: [id number] [place] [address] Referral ID Status Reason Start Date Expiration Date Visits Re quested Visits Authorized [id number] Closed 05/21/2018 11/30/2019 1 1 Reason for Visit * Hospital - Outpatient (Routine) - Closed Specialty Diagnoses / Procedures Referred By Contac t Referred To Contact Radiology Diagnoses Ascending aortic aneurysm (HCC) Procedures CTA Chest W Contrast Kali Reddy MD Phone: tel: fax: [id number] [place] [address] Referral ID Status Reason Start Date Expiration Date Visits Re quested Visits Authorized [id number] Closed 05/21/2018 11/30/2019 1 1 Encounter Details Date Type Department Care Team (Latest Contact Info) Description 05/26/2019 8:34 AM CDT - 05/26/2019 11:59 PM CDT Hospital Encounter [facility] - [facility] [address] [facility] 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
--- OUTSIDE RECORDS SUMMARY | 2024-09-30 02:53 | XMS_ITS | Encounter Summary ---
Author Organization [facility] Healthcare Address [address] [place] [address] Care Team Providers Care Urban Planner Name Role Phone Kali Reddy MD Unavailable Keaton Lynn MD Unavailable [phone] Radha Lozada MD Primary Care Provider [phone] Reason for Visit * Auth/Cert (Routine) Specialty Diagnoses / Procedures Referred By Contac t Referred To Contact Diagnoses Aneurysm of ascending aorta without rupture (HCC) Aneurysm of ascending aorta without rupture (HCC) [I71.21] Procedures NJ CATH PLMT L HRT & ARTS W/NJX & ANGIO IMG S&I LEFT HEART CATHETERIZATION WITH CORONARY ANGIOGRAPHY AND WITH OR WITHOUT LEFT VENTRICULOGRAM [id number] Referral ID Status Reason Start Date Expiration Date Visits Re quested Visits Authorized [id number] 1 1 Encounter Details Date Type Department Care Team (Late st Contact Info) Description 06/28/2023 8:30 AM CDT - 06/28/2023 9:40 AM CDT Surgery [facility] [address] [place] [address] Nicolas Golden MD [address] [facility] [address] [place] [address] LEFT HEART CATHETERIZATION WITH CORONARY ANGIOGRAPHY AND WITH OR WITHOUT LEFT VENTRICULOGRAM 29233 Surgery Details Date/Time Status Location OR Service Patient Class Case Class Case Type Trauma Case? 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 [facility] Cardiology [address] [place] [address], [id number], [address] Left Heart Catheterization Procedure Report 77 year [...] and draped in sterile fashion. A 6 Algerian sheath was inserted in the Right Radial [...] from the original result were not included. [facility] Cardiology ?? [facility] [facility], [address] [place] [address] ?? [place], [place], [address] ?? Left Heart Catheterization Procedure Report 77 [...] and draped in sterile fashion. A 6 Algerian sheath was inserted in the Right Radial [...] 06/28/2023 documented in this encounter Care Teams Urban Planner Relationship Specialty Start Date End Date Radha Lozada MD [address] [place] [address] [place] [address] PCP - General Family Medicine 06/25/23 04/29/24 Kali Reddy MD Consulting Physician Cardiology 05/19/19 Keaton Lynn MD [address] [facility] [address] [place] [address] Consulting Physician Cardiothoracic Surgery 06/07/23 documented as of this encounter
--- OUTSIDE RECORDS SUMMARY | 2024-09-30 02:53 | XMS_ITS | Encounter Summary ---
Author Organization [facility] Facility Care Team Providers Care Radiation Protection Technician Name Role Phone Emelina Khan MD Primary Care Provider [phone] Encounter Details Date Type Department Care Team (Late st Contact Info) Description 10/19/2015 11:49 AM MARKETING PROFESSIONAL - 10/19/2015 11:59 PM MARKETING PROFESSIONAL Hospital Encounter 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
--- OUTSIDE RECORDS SUMMARY | 2024-09-30 02:53 | XMS_ITS | Encounter Summary ---
Author Organization [facility] Medical Group Address [address] [facility] [address] [place] [address] Care Team Providers Care Automotive Lube Technician Name Role Phone Noemi Willis NP Primary Care Provider [phone] Kali Reddy MD Unavailable Encounter Details Date Type Department Care Team (Late st Contact Info) Description 05/26/2019 Telephone [facility] Cardiology [address] [facility] [address] [place] [address] Kali Reddy MD [address] [facility] [address] [place] [address] Social History Tobacco Use Types Packs/Day Years Used Date Smoking Tobacco: Never Smokeless Tobacco: Never Alcohol Use Standard Drinks/Week Comments Yes 0 (1 standard drink = 0.6 oz pur e alcohol) Socially Sex and Gender Information Value Date Recorded Sex Assigned at Not on file 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
--- OUTSIDE RECORDS SUMMARY | 2024-09-30 02:53 | XMS_ITS | Encounter Summary ---
Author Organization [facility] Medical Group Address [address] [facility] [address] [place] [address] Care Team Providers Care Clinical Rehabilitation Specialist Name Role Phone Noemi Willis NP Primary Care Provider [phone] Kali Reddy MD Unavailable [phone] Reason for Visit * Reason Comments Aortic Aneurysm f/u Encounter Details Date Type Department Care Team (Latest Contact Info) Description 05/26/2019 10:00 AM CDT Office Visit [facility] Cardiology [address] [facility] [address] [place] [address] Kali Reddy MD [facility] [address] [place] [address] Ascending aortic aneurysm (CMS/HCC) (Primary Dx); Pure hypercholesterolemia Social History Tobacco Use Types Packs/Day Years Used Date Smoking Tobacco: Never Smokeless Tobacco: Never Alcohol Use Standard Drinks/Week Comments Yes 0 (1 standard drink = 0.6 oz pur e alcohol) Socially Sex and Gender Information Value Date Recorded Sex Assigned at Not on file 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 Arthritis Arthritis; Comments: [facility] 10/19/2015 - ??? HX OTHER MEDICAL ascending aortic aneurysm; Comments: [facility] 10/19/2015 - ??? Hypertension Hypertension ??? [...] documented as of this encounter Care Teams Clinical Rehabilitation Specialist Relationship Specialty Start Date End Date Noemi Willis NP PCP - General 06/19/18 06/24/23 Kali Reddy MD Consulting Physician Cardiology 05/19/19 documented as of this encounter
--- OUTSIDE RECORDS SUMMARY | 2024-09-30 02:53 | XMS_ITS | Encounter Summary ---
Author Organization [facility] Medical Group Address [address] [facility] [address] [place] [address] Care Team Providers Care Food And Beverage Order Clerk Name Role Phone Noemi Willis NP Primary Care Provider [phone] Kali Reddy MD Unavailable [phone] Reason for Referral * MRI/CAT/PET Scan (Routine) - Closed Specialty Diagnoses / Procedures Referred By Contac t Referred To Contact Radiology Diagnoses Ascending aortic aneurysm (HCC) Procedures CTA Chest W Contrast Kali Reddy MD Phone: tel: fax: [facility] [address] [place] [address] Referral ID Status Reason Start Date Expiration Date Visits Re quested Visits Authorized [id number] Closed 06/08/2021 07/08/2022 1 1 Reason for Visit * Reason Comments Aneurysms Encounter Details Date Type Department Care Team (Latest Contact Info) Description 06/08/2021 11:00 AM CDT Office Visit [facility] Medical Group Cardiology [address] [facility] [address] [place] [address] Kali Reddy MD [address] [facility] [address] [place] [address] Ascending aortic aneurysm (CMS/HCC) (HCC) (Primary Dx); Pure hypercholesterolemia Social History Tobacco Use Types Packs/Day Years Used Date Smoking Tobacco: Never Smokeless Tobacco: Never Alcohol Use Standard Drinks/Week Comments Yes 0 (1 standard drink = 0.6 oz pur e alcohol) Socially Sex and Gender Information Value Date Recorded Sex Assigned at Not on file 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 [facility] Cardiology [address] [address] Cardiology MD Kali Mckeon MD Robert Kopitsky, MD Martin Schwarze, MD Osmin Odom, MD Nicolas Wilson MD Jeremy Tietjens, MD K. Bryan Trimmer, DO Rory Dowling, MD Beth Smith, ANIMAL CARE GIVER Patricia Campbell, ALEX Monk, ANIMAL CARE GIVER Patient Name: Omar Adam Provider: Kali Reddy [...] This note was dictated with voice-recognition software, dye jig operator errors may be present. Omar Adam [...] Diagnosis Date ??? Arthritis Arthritis; Comments: [facility] 10/19/2015 - ??? HX OTHER MEDICAL ascending aortic aneurysm; Comments: [facility] 10/19/2015 - ??? Hypertension Hypertension ??? [...] documented as of this encounter Care Teams Food And Beverage Order Clerk Relationship Specialty Start Date End Date Noemi Willis NP PCP - General 06/19/18 06/24/23 Kali Reddy MD Consulting Physician Cardiology 05/19/19 documented as of this encounter
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
--- OUTSIDE RECORDS SUMMARY | 2024-09-30 02:53 | XMS_ITS | Encounter Summary ---
Author Organization [facility] Healthcare Address [address] [place] [address] Care Team Providers Care General Assembler Name Role Phone Noemi Willis NP Primary Care Provider [phone] Kali Reddy MD Unavailable Keaton Lynn MD Unavailable [phone] Radha Lozada MD Primary Care Provider [phone] Gabby Li NP Primary Care Provider [phone] Encounter Details Date Type Department Care Team (Late st Contact Info) Description 05/25/2020 Telephone [facility] [address] [place] [address] Transcribed Order, Provider Social History Tobacco Use Types Packs/Day Years Used Date Smoking Tobacco: Never Smokeless Tobacco: Never Alcohol Use Standard Drinks/Week Comments Yes 0 (1 standard drink = 0.6 oz pur e alcohol) Socially Sex and Gender Information Value Date Recorded Sex Assigned at Not on file 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 Gender Identity Not on file Sexual Orientation Not on file documented as of this encounter Plan of Treatment Not on file documented as of this encounter Visit Diagnoses Not on filedocumented in this encounter Care Teams General Assembler Relationship Specialty Start Date End Date Noemi Willis NP PCP - General 06/19/18 06/24/23 Radha Lozada MD [address] [place] [address] [place] [address] PCP - General Family Medicine 06/25/23 04/29/24 Gabby Li NP [address] [address] PCP - General Family Medicine 04/30/24 Kali Reddy MD Consulting Physician Cardiology 05/19/19 Keaton Lynn MD [address] [facility] [address] [place] [address] Consulting Physician Cardiothoracic Surgery 06/07/23 documented as of this encounter
--- OUTSIDE RECORDS SUMMARY | 2024-09-30 02:53 | XMS_ITS | Encounter Summary ---
Author Organization [facility] Facility Care Team Providers Care Wrapping Machine Helper Name Role Phone Emelina Khan MD Primary Care Provider [phone] Encounter Details Date Type Department Care Team (Latest Contact Info) Description 11/23/2016 8:48 AM AUTO MACHINIST - 11/23/2016 11:59 PM AUTO MACHINIST Hospital Encounter [facility] Kali Reddy MD [address] [facility] [address] [place] [address] Thoracic aortic aneurysm without rupture (CMS/HCC); Other specified pleural conditions; Contact with and (suspected) exposure to asbestos Social History Tobacco Use Types Packs/Day Years Used Date Smoking Tobacco: Never Assessed Sex and Gender Information Value Date Recorded Sex Assigned at Not on file 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 Requesting ID: [id number] Attending Fax: ?? Attending ID: ?? [id number] Completed Time: ?? 11/23/2016 10:45 AM Dictated [...] REDDY Requesting: KALI REDDY Requesting Requesting ID: [id number] Attending Attending ID: [id number] Completed Time: 11/23/2016 10:45 AM Dictated Time: [...] asbestos documented in this encounter Care Teams Wrapping Machine Helper Relationship Specialty Start Date End Date Emelina Khan MD [address] [address] PCP - General 11/23/16 06/18/18 documented as of this encounter
--- OUTSIDE RECORDS SUMMARY | 2024-09-30 02:53 | XMS_ITS | Encounter Summary ---
Author Organization [facility] Medical Group Address [address] [facility] [address] [place] [address] Care Team Providers Care Reservation Sales Agent Name Role Phone Noemi Willis NP Primary Care Provider [phone] Kali Reddy MD Unavailable [phone] Keaton Lynn MD Unavailable [phone] Reason for Visit * Reason Comments ascending aortic aneurysm * Consultation (Routine) - Closed Specialty Diagnoses / Procedures Referred By Contac t Referred To Contact Cardiothoracic Surgery Diagnoses Aneurysm of ascending aorta without rupture (HCC) Kali Reddy MD [address] [place] [address] Phone: tel: fax: Keaton Lynn MD [address] [place] [address] Phone: tel: fax: Referral ID Status Reason Start Date Expiration Date V isits Requested Visits Authorized [id number] Closed Specialty Services Required 06/06/2023 07/05/2024 1 1 Encounter Details Date Type Department Care Team (Late st Contact Info) Description 06/21/2023 10:45 AM CDT Office Visit Cardiovascular and Thoracic Surgery [address] [facility] [address] [place] [address] Keaton Lynn MD [address] [place] [address] Aneurysm of ascending aorta without [...] often do you attend chur ch or oriental orthodox services? More than 4 times per year 07/30/2023 Do you belong to any clubs o r organizations such as latter-day groups, unions, fraternal or athletic groups, or [...] slept in a half-way (including now)? No 07/30/2023 Personal Safety Answer Date Recorded Have you ever been in or are you currently in a harmful physical or emotional relationship or is someone making you feel afraid or unsafe? 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 Plan: [facility] Minimally invasive ascending and possible aortic valve [...] CDT) Sodium 140 135 - 145 mmol/L [facility] Potassium, pl 4.1 3.3 - 4.9 mmol/L [facility] Chloride 105 97 - 110 mmol/L [facility] CO2 24 22 - 32 mmol/L [facility] Anion gap 11 2 - 15 mmol/L [facility] BUN 14 6 - 25 mg/dL [facility] Creatinine 0.88 0.80 - 1.30 mg/dL [facility] Glucose 98 70 - 199 mg/dL [facility] Comment: Interpretive Data Fasting glucose >/= [...] 2022. Calcium 9.5 8.5 - 10.3 mg/dL [facility] Bilirubin, total 0.6 0.1 - 1.2 mg/dL [facility] Protein, pl 6.9 6.5 - 8.5 g/dL [facility] Albumin 4.5 3.5 - 5.0 g/dL [facility] Alk phos 70 40 - 130 Units/L [facility] ALT 25 7 - 55 Units/L [facility] AST 27 10 - 50 Units/L [facility] Blood 06/21/2023 1:14 PM CDT 06/21/2023 1:37 PM CDT us Keaton Lynn MD LAB BLOOD ORDERABLES Fin al Result [facility] [address] Department [place] [address] * (ABNORMAL) CBC with auto differential (06/21/2023 1:14 PM CDT) WBC 6.4 3.8 - 9.9 K/cumm [facility] Hgb 13.9 13.0 - 17.5 g/dL [facility] Hct 40.3 38.9 - 50.3 % [facility] Plt 188 150 - 400 K/cumm [facility] MPV 9.4 9.1 - 12.3 fL [facility] RBC 4.24(L) 4.30 - 5.80 M/cumm [facility] MCV 95.0 81.3 - 96.4 fL [facility] MCH 32.8 27.1 - 33.3 pg [facility] MCHC 34.5 32.3 - 35.7 g/dL [facility] RDW CV 12.8 11.1 - 14.9 % [facility] RDW SD 44.1 35.7 - 48.1 fL [facility] NRBC abs 0.00 0.00 - 0.01 K/cumm [facility] Blood 06/21/2023 1:14 PM CDT 06/21/2023 1:37 PM CDT Keaton Lynn MD LAB BLOOD ORDERABLES Fin al Result [facility] [address] [place] [address] * Type and screen (06/21/2023 1:07 PM CDT) Chacorta, indirect Negative [facility] ABO Rh O Positive [facility] Blood 06/21/2023 1:07 PM CDT 06/21/2023 1:48 PM CDT Narrative [facility] - 06/21/2023 2:32 PM CDT PRE-OP AORTIC SURGERY ON 07/10/23 NO BLOOD TRANSFUSIONS PAST 90 DAYS Has the patient had Daratumumab or Isatuximab in the past 6 months?->Unknown Keaton Lynn MD LAB BLOOD BANK TEST ORDE RABLES Final Result Performing Organization Address [facility]/ZIP Co de Phone Number [facility] [address] [place] [address] documented in this encounter Visit Diagnoses Diagnosis Aneurysm of ascending aorta without rupture (HCC) Aneurysm of ascending aorta without rupture (HCC) documented in this encounter Orders Outpatient Referral Count Last Ordered Date Fir st Ordered Date AMB REFERRAL TO CARDIOTHORACIC SURGERY 1 documented in this encounter Care Teams Reservation Sales Agent Relationship Specialty Start Date End Date Noemi Willis NP PCP - General 06/19/18 06/24/23 Kali Reddy MD Consulting Physician Cardiology 05/19/19 Keaton Lynn MD [address] [facility] [address] [place] [address] Consulting Physician Cardiothoracic Surgery 06/07/23 documented as of this encounter
--- OUTSIDE RECORDS SUMMARY | 2024-09-30 02:53 | XMS_ITS | Encounter Summary ---
Author Organization [facility] Medical [facility] Address [address] [place] [address] Care Team Providers Care Ceramic Design Engineer Name Role Phone Emelina Khan MD Primary Care Provider [phone] Reason for Referral * MRI/CAT/PET Scan (Routine) - Closed Specialty Diagnoses / Procedures Referred By Contac t Referred To Contact Radiology Diagnoses Thoracic aortic aneurysm without rupture (HCC) Procedures CTA Chest W WO Contrast Kali Reddy MD Phone: tel: fax: Referral ID Status Reason Start Date Expiration Date Visits Re quested Visits Authorized [id number] Closed 05/01/2017 10/28/2017 1 1 Encounter Details Date Type Department Care Team (Late st Contact Info) Description 04/30/2017 Orders Only [facility] Cardiology [address] [facility] [address] [place] [address] Kali Reddy MD [facility] [address] [place] [address] Thoracic aortic aneurysm without rupture (CMS/HCC) (Primary Dx) Social History Tobacco Use Types Packs/Day Years Used Date Smoking Tobacco: Never Assessed Sex and Gender Information Value Date Recorded Sex Assigned at Not on file 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 Requesting ID: [id number] Attending Fax: ?? Attending ID: ?? [id number] Completed Time: ?? 05/24/2017 09:07 AM Dictated [...] Report To 3 FAX: NextGen Order #: [id number] Procedure Note Miscellaneous, Not In File / [...] REDDY Requesting: KALI REDDY Requesting Requesting ID: [id number] Attending Attending ID: [id number] Completed Time: 05/24/2017 09:07 AM Dictated Time: N/A Transcribed Time: 05/24/2017 12:06 AM Signed by: JARVIS POOLE on 05/24/2017 12:06 AM Report To 1 ID: Report To 1 Name: , Report To 1 FAX: Report To 2 ID: Report To 2 Name: , Report To 2 FAX: Report To 3 ID: Report To 3 Name: , Report To 3 FAX: NextGen Order #: [id number] Kali Reddy MD IMG CT PROCEDURES Final Re sult documented in this encounter Visit Diagnoses Diagnosis Thoracic aortic aneurysm without rupture (HCC)- Primary Thoracic aortic aneurysm without rupture (HCC) documented in this encounter Care Teams Ceramic Design Engineer Relationship Specialty Start Date End Date Emelina Khan MD [address] [address] PCP - General 11/23/16 06/18/18 documented as of this encounter
--- OUTSIDE RECORDS SUMMARY | 2024-09-30 02:53 | XMS_ITS | Encounter Summary ---
Author Organization [facility] Medical [facility] Address [address] [facility] [address] [place] [address] Care Team Providers Care Intelligence Operations Name Role Phone Noemi Willis NP Primary Care Provider [phone] Kali Reddy MD Unavailable Reason for Visit * Reason Onset Date Comments Test Results 06/09/2021 Encounter Details Date Type Department Care Team (Late st Contact Info) Description 06/09/2021 Telephone [facility] Cardiology [address] [facility] [address] [place] [address] Kali Reddy MD [facility]3 [facility] [address] [place] [address] Test Results Social History Tobacco Use Types Packs/Day Years Used Date Smoking Tobacco: Never Smokeless Tobacco: Never Alcohol Use Standard Drinks/Week Comments Yes 0 (1 standard drink = 0.6 oz pur e alcohol) Socially Sex and Gender Information Value Date Recorded Sex Assigned at Not on file 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
--- OUTSIDE RECORDS SUMMARY | 2024-09-30 02:53 | XMS_ITS | Encounter Summary ---
Author Organization [facility] Medical [facility] Address [address] [place] [address] Care Team Providers Care Pinking Sewing Machine Operator Name Role Phone Noemi Willis NP Primary Care Provider [phone] Kali Reddy MD Unavailable [phone] Reason for Referral * MRI/CAT/PET Scan (Routine) - Closed Specialty Diagnoses / Procedures Referred By Contac t Referred To Contact Radiology Diagnoses Ascending aortic aneurysm (HCC) Procedures CTA Chest W Contrast Kali Reddy MD Phone: tel: fax: [facility] [address] [place] [address] Referral ID Status Reason Start Date Expiration Date Visits Re quested Visits Authorized [id number] Closed 06/08/2022 07/08/2023 1 1 Reason for Visit * Reason Comments Aortic Aneurysm Encounter Details Date Type Department Care Team (Latest Contact Info) Description 06/08/2022 10:15 AM CDT Office Visit [facility] Cardiology [address] [facility] [address] [place] [address] Kali Reddy MD [address] [facility] [address] [place] [address] Pure hypercholesterolemia (Primary Dx); Ascending aortic aneurysm (CMS/HCC) (HCC) Social History Tobacco Use Types Packs/Day Years Used Date Smoking Tobacco: Never Smokeless Tobacco: Never Alcohol Use Standard Drinks/Week Comments Yes 0 (1 standard drink = 0.6 oz pur e alcohol) Socially Sex and Gender Information Value Date Recorded Sex Assigned at Not on file 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 [facility] Cardiology [address] [address] Cardiology MD Kali Mckeon MD Robert Kopitsky, MD Martin Schwarze, DO David Sewall, MD James Smith, MD Christopher Speidel, MD Gus Theodos, MD Jeremy Tietjens, MD K. Bryan Trimmer, MD Rory Camacho, MD Beth Smith, COMMERCIAL CREDIT REVIEWER Patricia Campbell, ALEX Monk, ALEX Patient Name: [...] This note was dictated with voice-recognition software, body art technician errors may be present. Omar Adam is [...] History: Diagnosis Date ??? Arthritis Arthritis; Comments: [facility] 10/19/2015 - ??? HX OTHER MEDICAL ascending aortic aneurysm; Comments: [facility] 10/19/2015 - ??? Hypertension Hypertension ??? [...] documented as of this encounter Care Teams Pinking Sewing Machine Operator Relationship Specialty Start Date End Date Noemi Willis NP PCP - General 06/19/18 06/24/23 Kali Reddy MD Consulting Physician Cardiology 05/19/19 documented as of this encounter
--- OUTSIDE RECORDS SUMMARY | 2024-09-30 02:53 | XMS_ITS | Encounter Summary ---
Author Organization [facility] Medical [facility] Address [address] [facility] [address] [place] [address] Care Team Providers Care Oiling Machine Operator Name Role Phone Noemi Willis NP Primary Care Provider [phone] Kali Reddy MD Unavailable Keaton Lynn MD Unavailable [phone] Encounter Details Date Type Department Care Team (Late st Contact Info) Description 06/07/2023 Telephone [facility] Cardiology [address] [facility] [address] [place] [address] Kali Reddy MD [address] [facility] [address] [place] [address] Social History Tobacco Use Types Packs/Day Years Used Date Smoking Tobacco: Never Smokeless Tobacco: Never Alcohol Use Standard Drinks/Week Comments Yes 0 (1 standard drink = 0.6 oz pur e alcohol) Socially Sex and Gender Information Value Date Recorded Sex Assigned at Not on file 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
--- OUTSIDE RECORDS SUMMARY | 2024-09-30 02:53 | XMS_ITS | Encounter Summary ---
Author Organization [facility] Medical [facility] Address [address] [facility] [facility] [address] [place] [address] Care Team Providers Care Motorcycle Designer Name Role Phone Noemi Willis NP Primary Care Provider Kali Reddy MD Unavailable [phone] Reason for Visit * Reason Onset Date Comments Test Results 06/08/2022 Encounter Details Date Type Department Care Team (Late st Contact Info) Description 06/08/2022 Telephone [facility] Cardiology [address] [facility] [address] [place] [address] Osmin Barbosa MD [address] [facility] [address] [place] [address] Test Results Social History Tobacco Use Types Packs/Day Years Used Date Smoking Tobacco: Never Smokeless Tobacco: Never Alcohol Use Standard Drinks/Week Comments Yes 0 (1 standard drink = 0.6 oz pur e alcohol) Socially Sex and Gender Information Value Date Recorded Sex Assigned at Not on file 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
--- OUTSIDE RECORDS SUMMARY | 2024-09-30 02:53 | XMS_ITS | Encounter Summary ---
Author Organization [facility] Address [address] [facility] [address] [place] [address] Care Team Providers Care Director Of Compliance Name Role Phone Noemi Willis NP Primary Care Provider [phone] Kali Reddy MD Unavailable [phone] Encounter Details Date Type Department Care Team (Late st Contact Info) Description 07/19/2022 Orders Only [facility] Cardiology [address] [facility] [address] [place] [address] Provider, MD Sandra [address] [place] [address] Social History Tobacco Use Types Packs/Day Years Used Date Smoking Tobacco: Never Smokeless Tobacco: Never Alcohol Use Standard Drinks/Week Comments Yes 0 (1 standard drink = 0.6 oz pur e alcohol) Socially Sex and Gender Information Value Date Recorded Sex Assigned at Not on file 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 Gender Identity Not on file Sexual [...] function panel (07/17/2022 10:00 AM CDT) Pathologist [facility] SCRIBED Protein, Total, Serum 7.1 - - - g/dL [facility] SCRIBED Albumin 4.3 - - - g/dl [facility] SCRIBED Bilirubin, Total 1.10 - - - mg/dL [facility] SCRIBED Bilirubin, Direct 0.00 - - - mg/dL [facility] SCRIBED Alkaline Phosphatase 60 - - - Units/L [facility] SCRIBED Aspartate Transaminase (AST) 25 - - - Units/L [facility] SCRIBED Alanine Transaminase (ALT) 18 - - - Units/L [facility] Blood Historical Provider MD LAB BLOOD ORDERABLES Edit ed Result - Final [facility] [address] [phone] * Lipid panel (07/17/2022 10:00 AM CDT) [facility] SCRIBED Cholesterol, Total 107 140 - 199 [facility] SCRIBED HDL 37 40 [facility] SCRIBED LDL 46 - - - [facility] SCRIBED Triglycerides 119 - - - [facility] Blood Historical Provider MD LAB BLOOD ORDERABLES Edit ed Result - Final [facility] [address] [phone] * Basic metabolic panel (07/17/2022 10:00 AM CDT) [facility] SCRIBED Sodium 139 - - - mmol/L [facility] SCRIBED Potassium 4.4 - - - mmol/L [facility] SCRIBED Chloride 104 - - - mmol/L [facility] SCRIBED Carbon Dioxide 27 - - - mmol/L [facility] SCRIBED Anion Gap 12.4 14 - 22 mmol/L [facility] SCRIBED Urea Nitrogen (BUN) 17 - - - mg/dl [facility] SCRIBED Creatinine 1.00 - - - mg/dl [facility] SCRIBED Glucose 99 - - - mg/dl [facility] SCRIBED Calcium 9.4 - - - mg/dl [facility] SCRIBED eGFR in NonAfrican Japanese 60 - - - [facility] Blood us Historical Provider LAB BLOOD ORDERABLES Edit ed Result - Final [facility] [address] [phone] documented in this encounter Visit Diagnoses Not on filedocumented in this encounter Care Teams Director Of Compliance Relationship Specialty Start Date End Date Noemi Willis NP PCP - General 06/19/18 06/24/23 Kali Reddy MD Consulting Physician Cardiology 05/19/19 documented as of this encounter
--- OUTSIDE RECORDS SUMMARY | 2024-09-30 02:53 | XMS_ITS | Encounter Summary ---
Author Organization [facility] Medical Group Address [address] [facility] [facility] [address] [place] [address] Care Team Providers Care Farm Planner Name Role Phone Noemi Willis NP Primary Care Provider [phone] Kali Reddy MD Unavailable [phone] Reason for Visit * Reason Onset Date Comments ct results 05/27/2020 Encounter Details Date Type Department Care Team (Late st Contact Info) Description 05/27/2020 Telephone [facility] Medical [facility] Cardiology [address] [facility] [address] [place] [address] Kali Reddy MD [facility] [address] [place] [address] ct results Social History Tobacco Use Types Packs/Day Years Used Date Smoking Tobacco: Never Smokeless Tobacco: Never Alcohol Use Standard Drinks/Week Comments Yes 0 (1 standard drink = 0.6 oz pur e alcohol) Socially Sex and Gender Information Value Date Recorded Sex Assigned at Not on file 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
--- OUTSIDE RECORDS SUMMARY | 2024-09-30 02:53 | XMS_ITS | Encounter Summary ---
Author Organization [facility] Healthcare Address [address] [place] [address] Care Team Providers Care Hospice Care Consultant Name Role Phone Noemi Willis NP Primary Care Provider [phone] Kali Reddy MD Unavailable [phone] Reason for Referral * Hospital - Outpatient (Routine) - Closed Specialty Diagnoses / Procedures Referred By Contac t Referred To Contact Radiology Diagnoses Ascending aortic aneurysm (HCC) Procedures CTA Chest W Contrast Kali Reddy MD Phone: tel: fax: [facility] [id number] [place] [address] Referral ID Status Reason Start Date Expiration Date Visits Re quested Visits Authorized [id number] Closed 05/26/2020 06/25/2021 1 1 Reason for Visit * Hospital - Outpatient (Routine) - Closed Specialty Diagnoses / Procedures Referred By Praveenac t Referred To Contact Radiology Diagnoses Ascending aortic aneurysm (HCC) Procedures CTA Chest W Contrast Kali Reddy MD Phone: tel: fax: [facility] [address] [place] [address] Referral ID Status Reason Start Date Expiration Date Visits Re quested Visits Authorized [id number] Closed 05/26/2020 06/25/2021 1 1 Encounter Details Date Type Department Care Team (Latest Contact Info) Description 06/08/2021 9:15 AM CDT - 06/08/2021 11:59 PM CDT Hospital Encounter [facility] - [facility] [address] [place] [address] Kali Reddy MD [address] [facility] [address] [place] [address] Ascending aortic aneurysm (CMS/HCC) (HCC) Discharge Disposition: Discharge to home or self care Social History Tobacco Use Types Packs/Day Years Used Date Smoking Tobacco: Never Smokeless Tobacco: Never Alcohol Use Standard Drinks/Week Comments Yes 0 (1 standard drink = 0.6 oz pur e alcohol) Socially Sex and Gender Information Value Date Recorded Sex Assigned at Not on file 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
--- OUTSIDE RECORDS SUMMARY | 2024-09-30 02:53 | XMS_ITS | Encounter Summary ---
Author Organization [facility] Healthcare Address [address] [place] [address] Care Team Providers Care Horse Wrangler Name Role Phone Emelina Khan MD Primary Care Provider [phone] Reason for Referral * MRI/CAT/PET Scan (Routine) - Closed Specialty Diagnoses / Procedures Referred By Contac t Referred To Contact Radiology Diagnoses Thoracic aortic aneurysm without rupture (HCC) Procedures CTA Chest W WO Contrast Kali Reddy MD Phone: tel: fax: Referral ID Status Reason Start Date Expiration Date Visits Re quested Visits Authorized [id number] Closed 05/01/2017 10/28/2017 1 1 Encounter Details Date Type Department Care Team (Latest Contact Info) Description 05/24/2017 7:57 AM CDT - 05/24/2017 11:59 PM CDT Hospital Encounter [facility]IM [phone] Kali Reddy MD [address] [facility] [address] [place] [address] Thoracic aortic aneurysm without rupture (CMS/HCC) Discharge [...] on file 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 Requesting ID: [id number] Attending Fax: ?? Attending ID: ?? [id number] Completed Time: ?? 05/24/2017 09:07 AM Dictated [...] Report To 3 FAX: NextGen Order #: [id number] Procedure Note Miscellaneous, Not In File / [...] REDDY Requesting: KALI REDDY Requesting Requesting ID: [id number] Attending Attending ID: [id number] Completed Time: 05/24/2017 09:07 AM Dictated Time: N/A Transcribed Time: 05/24/2017 12:06 AM Signed by: JARVIS POOLE on 05/24/2017 12:06 AM Report To 1 ID: Report To 1 Name: , Report To 1 FAX: Report To 2 ID: Report To 2 Name: , Report To 2 FAX: Report To 3 ID: Report To 3 Name: , Report To 3 FAX: NextGen Order #: [id number] Kali Reddy MD IMG CT PROCEDURES Final Re sult documented in this encounter Visit Diagnoses Diagnosis Thoracic aortic aneurysm without rupture (HCC) documented in this encounter Care Teams Horse Wrangler Relationship Specialty Start Date End Date Emelina Khan MD [address] [address] PCP - General 11/23/16 06/18/18 documented as of this encounter
--- OUTSIDE RECORDS SUMMARY | 2024-09-30 02:53 | XMS_ITS | Encounter Summary ---
Author Organization [facility] Medical Group Address [address] [facility] [address] [place] [address] Care Team Providers Care Physician Practice Coordinator Name Role Phone Noemi Willis NP Primary Care Provider [phone] Kali Reddy MD Unavailable Reason for Visit * Reason Onset Date Comments overdue result 07/12/2022 Encounter Details Date Type Department Care Team (Late st Contact Info) Description 07/12/2022 Telephone [facility] Cardiology [address] [facility] [address] [place] [address] Kali Reddy MD [facility] [address] [place] [address] overdue result Social History Tobacco Use Types Packs/Day Years Used Date Smoking Tobacco: Never Smokeless Tobacco: Never Alcohol Use Standard Drinks/Week Comments Yes 0 (1 standard drink = 0.6 oz pur e alcohol) Socially Sex and Gender Information Value Date Recorded Sex Assigned at Not on file 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
--- OUTSIDE RECORDS SUMMARY | 2024-09-30 02:53 | XMS_ITS | Encounter Summary ---
Author Organization [facility] Facility Care Team Providers Care Accountant Certified Public Name Role Phone Emelina Khan MD Primary Care Provider [phone] Encounter Details Date Type Department Care Team (Latest Contact Info) Description 11/18/2015 12:18 PM PSYCHOLOGY LECTURER - 11/18/2015 11:59 PM PSYCHOLOGY LECTURER Hospital Encounter [facility] Kali Reddy MD [address] [facility] [address] [place] [address] Combined rheumatic disorders of mitral, aortic and tricuspid valves; Other specified rheumatic heart diseases; Thoracic aortic aneurysm without rupture (CMS/HCC) Social History Tobacco Use Types Packs/Day Years Used Date Smoking Tobacco: Never Assessed Sex and Gender Information Value Date Recorded Sex Assigned at Not on file Legal Sex Male 12:03 PM PSYCHOLOGY LECTURER Gender Identity Not on file Sexual Orientation [...] W WO CONTRAST Routine 11/18/2015 2:47 PM PSYCHOLOGY LECTURER XR FACIAL BONES LESS THAN 3 VIEWS Routine 11/18/2015 1:04 PM PSYCHOLOGY LECTURER documented in this encounter Results * MRI Cardiac M&Func WWO Contrast (11/18/2015 2:47 PM PSYCHOLOGY LECTURER) Anatomical Region Laterality Modality Body N/A Magnetic Resonan ce 11/18/2015 2:47 PM PSYCHOLOGY LECTURER Narrative 11/18/2015 4:55 PM PSYCHOLOGY LECTURER Cardiac MRI with and without contrast was [...] KALI REDDY Requesting Fax: ?? Requesting ID: [id number] Attending Fax: ?? Attending ID: ?? [id number] Completed Time: ?? 11/18/2015 2:47 PM Dictated [...] REDDY Requesting: KALI REDDY Requesting Requesting ID: [id number] Attending Attending ID: [id number] Completed Time: 11/18/2015 2:47 PM Dictated Time: [...] Bones < 3 View (11/18/2015 1:04 PM PSYCHOLOGY LECTURER) Anatomical Region Laterality Modality Head and Neck N/A Radiographic Veronica ging 11/18/2015 1:04 PM PSYCHOLOGY LECTURER Narrative 11/18/2015 1:11 PM PSYCHOLOGY LECTURER TWO-VIEW ORBIT RADIOGRAPH 11/18/2015 HISTORY: Evaluate for metal in eye prior to MRI FINDINGS: Two-view ORBIT radiograph shows no evidence of metallic foreign body overlying the orbits. ??The paranasal sinuses appear normal. IMPRESSION: Negative. Electronically signed by: Abimbola Castle M.D. Radiologist: ABIMBOLA CASTLE M.D. ?? Attending: ??RAMEZ CORONA Requesting: RAMEZ CORONA Requesting Fax: ?? Requesting ID: [id number] Attending Fax: ?? Attending ID: ?? [id number] Completed Time: ?? 11/18/2015 1:04 PM Dictated [...] CORONA Requesting: RAMEZ CORONA Requesting Requesting ID: [id number] Attending Attending ID: [id number] Completed Time: 11/18/2015 1:04 PM Dictated Time: [...] (HCC) documented in this encounter Care Teams Accountant Certified Public Relationship Specialty Start Date End Date Emelina Khan MD [address] [address] PCP - General 10/19/15 11/22/16 documented as of this encounter
--- OUTSIDE RECORDS SUMMARY | 2024-09-30 02:53 | XMS_ITS | Encounter Summary ---
Author Organization [facility] Address [address] [place] [address] Care Team Providers Care Behavioral Therapist Name Role Phone Emelina Khan MD Primary Care Provider [phone] Reason for Referral * Hospital - Outpatient (Routine) - Closed Specialty Diagnoses / Procedures Referred By Contac t Referred To Contact Radiology Diagnoses Ascending aortic aneurysm (HCC) Procedures CTA Chest W Contrast Kali Reddy MD Phone: tel: fax: [place] [address] [place] [address] Referral ID Status Reason Start Date Expiration Date Visits Re quested Visits Authorized [id number] Closed 05/21/2018 11/30/2019 1 1 * Hospital - Outpatient (Routine) - Closed Specialty Diagnoses / Procedures Referred By Contac t Referred To Contact Radiology Diagnoses Ascending aortic aneurysm (HCC) Procedures CTA Chest W Contrast Kali Reddy MD Phone: tel: fax: [address] [place] [address] Referral ID Status Reason Start Date Expiration Date Visits Re quested Visits Authorized [id number] Closed 05/21/2018 11/30/2019 1 1 Reason for Visit * Reason Comments Hyperlipidemia Hypertension Encounter Details Date Type Department Care Team (Latest Contact Info) Description 05/21/2018 10:15 AM CDT Office Visit [facility] [place] [address] [place] [address] Kali Reddy MD [address] [facility] [address] [place] [address] Ascending aortic aneurysm (CMS/HCC) (Primary Dx); Pure hypercholesterolemia Social History Tobacco Use Types Packs/Day Years Used Date Smoking Tobacco: Never Smokeless Tobacco: Never Alcohol Use Standard Drinks/Week Comments Yes 0 (1 standard drink = 0.6 oz pur e alcohol) Socially Sex and Gender Information Value Date Recorded Sex Assigned at Not on file 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 Electronically signed by: ANGELA PETERS MD [facility] 06/21/2018 3:[address] ANGIOGRAM [...] documented as of this encounter Care Teams Behavioral Therapist Relationship Specialty Start Date End Date Emelina Khan MD [address] [address] PCP - General 11/23/16 06/18/18 documented as of this encounter
--- OUTSIDE RECORDS SUMMARY | 2024-09-30 02:53 | XMS_ITS | Encounter Summary ---
Author Organization [facility] Healthcare Address [address] [place] [address] Care Team Providers Care Cigar Bander Name Role Phone Noemi Willis NP Primary Care Provider [phone] Reason for Referral * Hospital - Outpatient (Routine) - Closed Specialty Diagnoses / Procedures Referred By Praveenac t Referred To Contact Radiology Diagnoses Ascending aortic aneurysm (HCC) Procedures CTA Chest W Contrast Kali Reddy MD Phone: tel: fax: [place] [address] [place] [address] Referral ID Status Reason Start Date Expiration Date Visits Re quested Visits Authorized [id number] Closed 05/21/2018 11/30/2019 1 1 Reason for Visit * Hospital - Outpatient (Routine) - Closed Specialty Diagnoses / Procedures Referred By Bette velazquez Referred To Contact Radiology Diagnoses Ascending aortic aneurysm (HCC) Procedures CTA Chest W Contrast Kali Reddy MD Phone: tel: fax: [address] [place] [address] Referral ID Status Reason Start Date Expiration Date Visits Re quested Visits Authorized [id number] Closed 05/21/2018 11/30/2019 1 1 Encounter Details Date Type Department Care Team (Latest Contact Info) Description 06/21/2018 8:54 AM CDT - 06/21/2018 11:59 PM CDT Hospital Encounter [facility] - Imaging [address] [place] [address] Kali Reddy MD [address] [place] [address] Ascending aortic aneurysm (CMS/HCC) Discharge Disposition: Discharge to home or self care Social History Tobacco Use Types Packs/Day Years Used Date Smoking Tobacco: Never Smokeless Tobacco: Never Alcohol Use Standard Drinks/Week Comments Yes 0 (1 standard drink = 0.6 oz pur e alcohol) Socially Sex and Gender Information Value Date Recorded Sex Assigned at Not on file Legal Sex Male 12:03 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
--- OUTSIDE RECORDS SUMMARY | 2024-09-30 02:53 | XMS_ITS | Encounter Summary ---
Author Organization [facility] Healthcare Address [address] [place] [address] Care Team Providers Care Special Education Preschool Teacher Name Role Phone Neomi Willis NP Primary Care Provider [phone] Kali Reddy MD Unavailable [phone] Reason for Referral * MRI/CAT/PET Scan (Routine) - Closed Specialty Diagnoses / Procedures Referred By Contac t Referred To Contact Radiology Diagnoses Ascending aortic aneurysm (HCC) Procedures CTA Chest W Contrast Kali Reddy MD Phone: tel: fax: [place] [address] [place] [address] Referral ID Status Reason Start Date Expiration Date Visits Re quested Visits Authorized [id number] Closed 06/08/2022 07/08/2023 1 1 Reason for Visit * MRI/CAT/PET Scan (Routine) - Closed Specialty Diagnoses / Procedures Referred By Contac t Referred To Contact Radiology Diagnoses Ascending aortic aneurysm (HCC) Procedures CTA Chest W Contrast Kali Reddy MD Phone: tel: fax: [place] [address] [place] [address] Referral ID Status Reason Start Date Expiration Date Visits Re quested Visits Authorized [id number] Closed 06/08/2022 07/08/2023 1 1 Encounter Details Date Type Department Care Team (Latest Contact Info) Description 06/06/2023 8:39 AM CDT - 06/06/2023 11:59 PM CDT Hospital Encounter [facility] - Imaging [address] [place] [address] Ascending aortic aneurysm (HCC) Discharge Disposition: Discharge to home or self care Social History Tobacco Use Types Packs/Day Years Used Date Smoking Tobacco: Never Smokeless Tobacco: Never Alcohol Use Standard Drinks/Week Comments Yes 0 (1 standard drink = 0.6 oz pur e alcohol) Socially Sex and Gender Information Value Date Recorded Sex Assigned at Not on file 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
--- OUTSIDE RECORDS SUMMARY | 2024-09-30 02:53 | XMS_ITS | Encounter Summary ---
Author Organization [facility] Address [address] [place] [address] Care Team Providers Care Blocklayer Name Role Phone Noemi Willis NP Primary Care Provider [phone] Kali Reddy MD Unavailable [phone] Reason for Visit * Reason Onset Date Comments CTA results 05/27/2019 Encounter Details Date Type Department Care Team (Late st Contact Info) Description 05/27/2019 Telephone [facility] [place] [address] [facility] [address] [place] [address] Kali Reddy MD [facility] [facility] [address] [place] [address] CTA results Social History Tobacco Use Types Packs/Day Years Used Date Smoking Tobacco: Never Smokeless Tobacco: Never Alcohol Use Standard Drinks/Week Comments Yes 0 (1 standard drink = 0.6 oz pur e alcohol) Socially Sex and Gender Information Value Date Recorded Sex Assigned at Not on file 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
--- OUTSIDE RECORDS SUMMARY | 2024-09-30 02:53 | XMS_ITS | Encounter Summary ---
Author Organization [facility] Address [address] [place] [address] Care Team Providers Care Breaker Machine Operator Name Role Phone Noemi Willis NP Primary Care Provider [phone] Reason for Visit * Reason Onset Date Comments Ct results 06/21/2018 Encounter Details Date Type Department Care Team (Late st Contact Info) Description 06/21/2018 Telephone [facility] [place] [address] [facility] [address] [place] [address] Kali Reddy MD [address] [facility] [address] [place] [address] Ct results Social History Tobacco Use Types Packs/Day Years Used Date Smoking Tobacco: Never Smokeless Tobacco: Never Alcohol Use Standard Drinks/Week Comments Yes 0 (1 standard drink = 0.6 oz pur e alcohol) Socially Sex and Gender Information Value Date Recorded Sex Assigned at Not on file 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
--- OUTSIDE RECORDS SUMMARY | 2024-09-30 02:53 | XMS_ITS | Encounter Summary ---
Author Organization [facility] Healthcare Address [address] [place] [address] Care Team Providers Care Ep Technologist Name Role Phone Noemi Willis NP Primary Care Provider [phone] Kali Reddy MD Unavailable [phone] Keaton Lynn MD Unavailable [phone] Encounter Details Date Type Department Care Team (Latest Contact Info) Description 06/21/2023 3:55 PM CDT - 06/21/2023 11:59 PM CDT Hospital Encounter [id number] [place] [address] Discharge Disposition: Discharge to home or self care Social History Tobacco Use Types Packs/Day Years Used Date Smoking Tobacco: Never Smokeless Tobacco: Never Alcohol Use Standard Drinks/Week Comments Yes 0 (1 standard drink = 0.6 oz pur e alcohol) Socially Sex and Gender Information Value Date Recorded Sex Assigned at Not on file Legal Sex Male 12:03 PM DIGITAL ACCOUNT COORDINATOR Gender Identity Not on file Sexual [...] on filedocumented in this encounter Care Teams Ep Technologist Relationship Specialty Start Date End Date Noemi Willis NP PCP - General 06/19/18 06/24/23 Kali Reddy MD Consulting Physician Cardiology 05/19/19 Keaton Lynn MD [address] [facility] [address] [place] [address] Consulting Physician Cardiothoracic Surgery 06/07/23 documented as of this encounter
--- OUTSIDE RECORDS SUMMARY | 2024-09-30 02:53 | XMS_ITS | Encounter Summary ---
Author Organization [facility] Care Team Providers Care Field Care Coordinator Name Role Phone Noemi Willis NP Primary Care Provider [phone] Kali Reddy MD Unavailable [phone] Encounter Details Date Type Department Care Team (Latest Contact Info) Description 05/26/2019 Travel Social History Tobacco Use Types Packs/Day Years Used Date Smoking Tobacco: Never Smokeless Tobacco: Never Alcohol Use Standard Drinks/Week Comments Yes 0 (1 standard drink = 0.6 oz pur e alcohol) Socially Sex and Gender Information Value Date Recorded Sex Assigned at Not on file Legal Sex Male 12:03 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
--- OUTSIDE RECORDS SUMMARY | 2024-09-30 02:53 | XMS_ITS | Encounter Summary ---
Author Organization [facility] Healthcare Address [address] [place] [address] Care Team Providers Care Insurance Agency Owner Name Role Phone Noemi Willis NP Primary Care Provider [phone] Kali Reddy MD Unavailable Keaton Lynn MD Unavailable [phone] Encounter Details Date Type Department Care Team (Late st Contact Info) Description 06/21/2023 1:05 PM CDT Lab [facility] Outpatient Lab [address] [place] [address] Aneurysm of ascending aorta without rupture (HCC) Social History Tobacco Use Types Packs/Day Years Used Date Smoking Tobacco: Never Smokeless Tobacco: Never Alcohol Use Standard Drinks/Week Comments Yes 0 (1 standard drink = 0.6 oz pur e alcohol) Socially Sex and Gender Information Value Date Recorded Sex Assigned at Not on file 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 73 m2 [facility] Comment: Interpretive Data Reference Interval Normal [...] MD LAB BLOOD ORDERABLES Fin al Result [facility] [address] Department [place] [address] * Differential, auto (06/21/2023 1:14 PM CDT) Neutrophil abs 3.9 1.7 - 6.5 K/cumm [facility] Imm gran abs 0.0 0.0 - 0.1 K/cumm [facility] Lymphocyte abs 1.9 0.8 - 3.3 K/cumm [facility] Monocyte abs 0.4 0.2 - 0.8 K/cumm [facility] Eosinophil abs 0.1 0.0 - 0.5 K/cumm [facility] Basophil abs 0.0 0.0 - 0.1 K/cumm [facility] Neutrophil pct 61.9 % [facility] Comment: Interpretive Data Percent cell count reference ranges are not reported, since discordance with absolute values may lead to misinterpretation of CBC data. Current Interpretive Data was last revised on 2018. Imm gran pct 0.3 % [facility] Comment: Interpretive Data Percent cell count reference ranges are not reported, since discordance with absolute values may lead to misinterpretation of CBC data. Current Interpretive Data was last revised on 2018. Lymphocyte pct 29.7 % [facility] Comment: Interpretive Data Percent cell count reference ranges are not reported, since discordance with absolute values may lead to misinterpretation of CBC data. Current Interpretive Data was last revised on 2018. Monocyte pct 6.9 % [facility] Comment: Interpretive Data Percent cell count reference ranges are not reported, since discordance with absolute values may lead to misinterpretation of CBC data. Current Interpretive Data was last revised on 2018. Eosinophil pct 0.9 % [facility] Comment: Interpretive Data Percent cell count reference ranges are not reported, since discordance with absolute values may lead to misinterpretation of CBC data. Current Interpretive Data was last revised on 2018. Basophil pct 0.3 % [facility] Comment: Interpretive Data Percent cell count reference ranges are not reported, since discordance with absolute values may lead to misinterpretation of CBC data. Current Interpretive Data was last revised on 2018. Blood 06/21/2023 1:14 PM CDT 06/21/2023 1:37 PM CDT Keaton Lynn MD LAB BLOOD ORDERABLES Fin al Result Performing Organization Address [facility]/ZIP Co de Phone Number [facility] [address] [place] [address] * (ABNORMAL) CBC with auto differential (06/21/2023 1:14 PM CDT) WBC 6.4 3.8 - 9.9 K/cumm [facility] Hgb 13.9 13.0 - 17.5 g/dL [facility] Hct 40.3 38.9 - 50.3 % [facility] Plt 188 150 - 400 K/cumm [facility] MPV 9.4 9.1 - 12.3 fL [facility] RBC 4.24(L) 4.30 - 5.80 M/cumm [facility] MCV 95.0 81.3 - 96.4 fL [facility] MCH 32.8 27.1 - 33.3 pg [facility] MCHC 34.5 32.3 - 35.7 g/dL [facility] RDW CV 12.8 11.1 - 14.9 % [facility] RDW SD 44.1 35.7 - 48.1 fL [facility] NRBC abs 0.00 0.00 - 0.01 K/cumm [facility] Blood 06/21/2023 1:14 PM CDT 06/21/2023 1:37 PM CDT Keaton Lynn MD LAB BLOOD ORDERABLES Fin al Result Performing Organization Address City/[facility]/ZIP Co de Phone Number [facility] [address] Department [employer] [place], [place] [id number] * Comprehensive metabolic panel (06/21/2023 1:14 PM CDT) Pathologist [facility] Sodium 140 135 - 145 mmol/L [facility] Potassium, pl 4.1 3.3 - 4.9 mmol/L [facility] Chloride 105 97 - 110 mmol/L [facility] CO2 24 22 - 32 mmol/L [facility] Anion gap 11 2 - 15 mmol/L [facility] BUN 14 6 - 25 mg/dL [facility] Creatinine 0.88 0.80 - 1.30 mg/dL [facility] Glucose 98 70 - 199 mg/dL [facility] Comment: Interpretive Data Fasting glucose >/= 126 [...] 2022. Calcium 9.5 8.5 - 10.3 mg/dL [facility] Bilirubin, total 0.6 0.1 - 1.2 mg/dL [facility] Protein, pl 6.9 6.5 - 8.5 g/dL [facility] Albumin 4.5 3.5 - 5.0 g/dL [facility] Alk phos 70 40 - 130 Units/L [facility] ALT 25 7 - 55 Units/L [facility] AST 27 10 - 50 Units/L [facility] Blood 06/21/2023 1:14 PM CDT 06/21/2023 1:37 PM CDT us Keaton Lynn MD LAB BLOOD ORDERABLES Fin al Result [facility] [address] Department [place] [address] * Type and screen (06/21/2023 1:07 PM CDT) Chacorta, indirect Negative [facility] ABO Rh O Positive [facility] Blood 06/21/2023 1:07 PM CDT 06/21/2023 1:48 PM CDT Narrative [facility] - 06/21/2023 2:32 PM CDT PRE-OP AORTIC SURGERY ON 07/10/23 NO BLOOD TRANSFUSIONS PAST 90 DAYS Has the patient had Daratumumab or Isatuximab in the past 6 months?->Unknown Keaton Lynn MD LAB BLOOD BANK TEST NAYELYNicole JOEY Final Result [facility] [address] Department [place] [address] documented in this encounter Visit Diagnoses Diagnosis Aneurysm of ascending aorta without rupture (HCC) documented in this encounter Care Teams Insurance Agency Owner Relationship Specialty Start Date End Date Noemi Willis NP PCP - General 06/19/18 06/24/23 Kali Reddy MD Consulting Physician Cardiology 05/19/19 Keaton Lynn MD [address] [facility] [address] [place] [address] Consulting Physician Cardiothoracic Surgery 06/07/23 documented as of this encounter
--- OUTSIDE RECORDS SUMMARY | 2024-09-30 02:53 | XMS_ITS | Encounter Summary ---
Author Organization [facility] Address [address] [place] [address] Care Team Providers Care Bacteriology Technician Name Role Phone Noemi Willis NP Primary Care Provider Kali Reddy MD Unavailable Encounter Details Date Type Department Care Team (Late st Contact Info) Description 06/09/2021 Telephone [facility] Cardiology [address] [place] [address] Kali Reddy MD [facility] [facility] [address] [place] [address] Social History Tobacco Use Types Packs/Day Years Used Date Smoking Tobacco: Never Smokeless Tobacco: Never Alcohol Use Standard Drinks/Week Comments Yes 0 (1 standard drink = 0.6 oz pur e alcohol) Socially Sex and Gender Information Value Date Recorded Sex Assigned at Not on file 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 Reddy. Pt there to have AST/ALT lisa. Will fax orders now. [phone] documented in this encounter Plan of Treatment Not on file documented as of this encounter Visit Diagnoses Not on filedocumented in this encounter Care Teams Bacteriology Technician Relationship Specialty Start Date End Date Noemi Willis NP PCP - General 06/19/18 06/24/23 Kali Reddy MD Consulting Physician Cardiology 05/19/19 documented as of this encounter
--- OUTSIDE RECORDS SUMMARY | 2024-09-30 02:53 | XMS_ITS | Encounter Summary ---
Author Organization [facility] Healthcare Address [address] [place] [address] Care Team Providers Care Assembler Carbon Brushes Name Role Phone Noemi Willis NP Primary Care Provider [phone] Kali Reddy MD Unavailable Keaton Lynn MD Unavailable [phone] Radha Lozada MD Primary Care Provider [phone] Gabby Li NP Primary Care Provider [phone] Encounter Details Date Type Department Care Team (Late st Contact Info) Description 06/07/2021 Telephone [facility] - Imaging [address] [place] [address] Transcribed Order, Provider Social History Tobacco Use Types Packs/Day Years Used Date Smoking Tobacco: Never Smokeless Tobacco: Never Alcohol Use Standard Drinks/Week Comments Yes 0 (1 standard drink = 0.6 oz pur e alcohol) Socially Sex and Gender Information Value Date Recorded Sex Assigned at Not on file 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 Gender Identity Not on file Sexual Orientation Not on file documented as of this encounter Plan of Treatment Not on file documented as of this encounter Visit Diagnoses Not on filedocumented in this encounter Care Teams Assembler Carbon Brushes Relationship Specialty Start Date End Date Noemi Willis NP PCP - General 06/19/18 06/24/23 Radha [place]ada MD [facility] [place] [address] PCP - General Family Medicine 06/25/23 04/29/24 Gabby Li NP [address] [address] PCP - General Family Medicine 04/30/24 Kali Reddy MD Consulting Physician Cardiology 05/19/19 Keaton Lynn MD [address] [facility] [address] [place] [address] Consulting Physician Cardiothoracic Surgery 06/07/23 documented as of this encounter
--- OUTSIDE RECORDS SUMMARY | 2024-09-30 02:53 | XMS_ITS | Encounter Summary ---
Author Organization [facility] Address [address] [place] [address] Care Team Providers Care Laundry Housekeeping Aide Name Role Phone Emelina Khan MD Primary Care Provider [phone] Reason for Referral * MRI/CAT/PET Scan (Routine) - Closed Specialty Diagnoses / Procedures Referred By Contac t Referred To Contact Radiology Diagnoses Ascending aortic aneurysm (HCC) Procedures CTA Chest W Contrast Kali Reddy MD Phone: tel: fax: Referral ID Status Reason Start Date Expiration Date Visits Re quested Visits Authorized [id number] Closed 05/24/2017 11/20/2017 1 1 Reason for Visit * Reason Comments Hyperlipidemia Hypertension Encounter Details Date Type Department Care Team (Latest Contact Info) Description 05/24/2017 10:15 AM CDT Office Visit [facility] Cardiology [address] [place] [address] Kali Reddy MD [address] [place] [address] [address] [place] [address] Ascending aortic aneurysm (CMS/HCC) (Primary Dx); Pure hypercholesterolemia Social History Tobacco Use Types Packs/Day Years Used Date Smoking Tobacco: Never Smokeless Tobacco: Never Alcohol Use Standard Drinks/Week Comments Yes 0 (1 standard drink = 0.6 oz pur e alcohol) Socially Sex and Gender Information Value Date Recorded Sex Assigned at Not on file 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 Arthritis Arthritis; Comments: [facility] 10/19/2015 - ??? HX OTHER MEDICAL ascending aortic aneurysm; Comments: [facility] 10/19/2015 - ??? Hypertension Hypertension ??? [...] rupture documented in this encounter Care Teams Laundry Housekeeping Aide Relationship Specialty Start Date End Date Emelina Khan MD [address] [address] PCP - General 11/23/16 06/18/18 documented as of this encounter
--- OUTSIDE RECORDS SUMMARY | 2024-09-30 02:53 | XMS_ITS | Encounter Summary ---
Author Organization [facility] Address [address] [place] [address] Care Team Providers Care Scientific Research Manager Name Role Phone Noemi Willis NP Primary Care Provider Kali Reddy MD Unavailable [phone] Reason for Referral * MRI/CAT/PET Scan (Routine) - Closed Specialty Diagnoses / Procedures Referred By Contac t Referred To Contact Radiology Diagnoses Ascending aortic aneurysm (HCC) Procedures CTA Chest W Contrast Kali Reddy MD Phone: tel: fax: [facility] [id number] [place] [address] Referral ID Status Reason Start Date Expiration Date Visits Re quested Visits Authorized [id number] Closed 06/08/2021 07/08/2022 1 1 Reason for Visit * MRI/CAT/PET Scan (Routine) - Closed Specialty Diagnoses / Procedures Referred By Contac t Referred To Contact Radiology Diagnoses Ascending aortic aneurysm (HCC) Procedures CTA Chest W Contrast Kali Reddy MD Phone: tel: fax: [facility] [address] [place] [address] Referral ID Status Reason Start Date Expiration Date Visits Re quested Visits Authorized [id number] Closed 06/08/2021 07/08/2022 1 1 Encounter Details Date Type Department Care Team (Latest Contact Info) Description 06/08/2022 8:36 AM CDT - 06/08/2022 11:59 PM CDT Hospital Encounter [facility] - Imaging [address] [place] [address] Ascending aortic aneurysm (CMS/HCC) (HCC) Discharge Disposition: Discharge to home or self care Social History Tobacco Use Types Packs/Day Years Used Date Smoking Tobacco: Never Smokeless Tobacco: Never Alcohol Use Standard Drinks/Week Comments Yes 0 (1 standard drink = 0.6 oz pur e alcohol) Socially Sex and Gender Information Value Date Recorded Sex Assigned at Not on file 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
--- OUTSIDE RECORDS SUMMARY | 2024-09-30 02:53 | XMS_ITS | Encounter Summary ---
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 Name Role Phone Kali Reddy MD Unavailable Keaton Lynn MD Unavailable Radha Lozada MD Primary Care Provider [phone] Reason for Visit * Auth/Cert (Routine) Specialty Diagnoses / Procedures Referred By Contac t Referred To Contact Diagnoses Aneurysm of ascending aorta without rupture (HCC) Aneurysm of ascending aorta without rupture (HCC) [I71.21] Procedures AR -AORT GRF W/CARD BYP F/AORTIC DS OTH/THN DSJ REPLACEMENT OF ASCENDING AORTA Referral ID Status Reason Start Date Expiration Date Visits Re quested Visits Authorized [id number] 1 1 Encounter Details Date Type Department Care Team (Late st Contact Info) Description 07/10/2023 12:50 PM CDT - 07/10/2023 5:40 PM CDT Surgery [facility] Operating Room [address] [place] [address] Keaton Lynn MD [address] [facility] [address] [place] [address] Tissue Composite Root Replacement and Hemiarch Replacement Surgery Details Date/Time Status Location OR Service Patient Class Case Class Case Type Trauma Case? 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 States his lead infrastructure architect advised that he not lift more than [...] supplement you enjoyed during your stay at [facility]. Some examples of nutrition supplements include Glucerna, Ensure, Boost, or a homemade high protein and/or calorie drink. It is recommended to continue drinking two supplements each day for 30 days. Other Instructions Ambulatory referral to Home Health Service Line: Home Health Primary disciplines requested: Detention Home Health Services: Disease and Medication Management [...] Center 08/16/2023 9:45 AM Keaton Lynn MD [facility] [id number] PSA 05/21/2024 9:15 AM [facility]-[address] [facility] CT [facility] Main 05/21/2024 10:30 AM Kali Reddy MD [facility] [address] Specialty Contact Information for Follow-ups [facility] Home Care Services Specialty: Home Health and Hospice [address] [address] Next Steps: Follow up Questions: Service Line: Home Health Primary disciplines requested: Detention Home Health Services: Disease and Medication Management [...] Referral Status: External - All Visits Complete [facility] Cardiopulmonary Rehab [address] [place] [id number] Next Steps: Follow up Questions: Please select the performing region: External Order To loc/pos: [facility] Cardiopulmonary Rehab Select a phase: [...] supplement you enjoyed during your stay at [facility]. Some examples of nutrition supplements include Glucerna, [...] 0659 07/13/23 07 - 07/14/23 0659 Shift [id number] 1119-5103 24 Hour Total 0413-2031 7793-1944 24 Hour Total INTAKE P.O. 500 500 [...] proph: SQ heparin - PT/OT Discussed with CALRY Robles 07/13/2023 * Rita WoodsAlvarez, PT - [...] Date Expected End Date End Date PT [facility] 1 07/11/23 08/03/23 -- Goal Details: Independent bed mobility and transfers adhering to sternal precautions 100% of the time. Goal Start Date Expected End Date End Date PT [facility] - [facility] 2 07/11/23 08/03/23 -- Goal Details: Pt amb 360ft with least restrictive device level surfaces mod indep or indep. Goal Start Date Expected End Date End Date PT [facility] - [facility] 3 07/11/23 08/03/23 -- Goal Details: Pt amb up/down curb step mod indep or indep and up/down 3 steps with single HR mod indep or indep with good dyn stand balance and/or low fall risk on Villarreal balance scale. Goal Start Date Expected End Date End Date PT [facility] - [facility] 4 07/11/23 08/03/23 -- Goal Details: Pt to apply sternal precautions independently without cueing from PT and display goodknowledge of cardiac HEP for optimal healing and functional recovery. * Cyrus Mackey EP-C - 07/13/2023 9:50 AM CDT Inpatient Cardiac Rehab Education Patient Information Patient Name: Judi Nolasco : 1945 Room/Bed: [place] [address]/[address] Insurance: Medicare Traditional + [facility] Progress Note Patient Transport Orderly: JOSSELINE Alejandra Date: 07/13/2023 Referring Diagnosis for Cardiac Rehab - S/P Aortic Valve Replacement Education Provided Explained my role as a Cardiac Rehab Navigator (CRN). Provided Cardiac Rehab education to patient. Family was not present. Patient was provided with Cardiac Rehab education folder as well as a [facility] Heart Education booklet. Risk Factors: HTN, HLD, [...] fats)and exercise. Advised patient to consult their churn tender, nurse, and/or physician if they have any questions about their diet/nutrition. Cardiac Rehab: Gave patient options of facilities for Outpatient Cardiac Rehab (OCR) in their community. Explained OCR program. Patient expressed knowledge towards local OCR program - patient prefers [facility] in [place], [place]. Stressed the importance/benefits of incorporating regular [...] working towards eventually trying to reach the [place] [employer] recommendations in regards to exercise: [...] when it would be appropriate to call Energy Trading Analyst's office, go to the ER, or call 911. Insurance Coverage: Briefly explained general insurance coverage for OCR, but assured patient that OCR facility will usually call insurance and inform patient of more of an approximate coverage. Post-Discharge: Explained process between discharge from hospital, and getting set up in an OCR program - follow upwith [employer] Analyst, CRN follow up calls, OCR program contact. Conclusion Patient seems likely to participate in OCR. Reassured patient of importance and health care provider support of OCR. Patient verbalized understanding of education, and all questions were answered to the best of my ability. Will complete order for OCR to be sent to [employer]. Thank you for allowing us to news assistant in the care of this patient, please don't hesitate to contact the Cardiac Rehab Navigator office with any questions: [phone]. * Monie Velasquez COTA - 07/13/2023 6:07 [...] 07/11/23699 - 07/12/2365807/12/23699 - 07/13/23 0659 Shift [id number] 24 Hour Total [phone] 4286-7320 24 Hour Total INTAKE P.O. 700 700 [...] (from Physical Therapy) Active Problems Problem: PT [facility] Start Date: 07/11/23 Goal Start Date Expected End Date End Date PT [facility] - [facility] 1 07/11/23 08/03/23 -- Goal Details: Independent bed mobility and transfers adhering to sternal precautions 100% of the time. Goal Start Date Expected End Date End Date PT [facility] 2 07/11/23 08/03/23 -- Goal Details: Pt amb 360ft with least restrictive device level surfaces mod indep or indep. Goal Start Date Expected End Date End Date PT [facility] - [facility] 3 07/11/23 08/03/23 -- Goal Details: Pt amb up/down curb step mod indep or indep and up/down 3 steps with single HR mod indep or indep with good dyn stand balance and/or low fall risk on Villarreal balance scale. Goal Start Date Expected End Date End Date PT [facility] - [facility] 4 07/11/23 08/03/23 -- Goal Details: Pt to apply sternal precautions independently without cueing from PT and display goodknowledge of cardiac HEP for optimal healing and functional recovery. Devi Corrales DPT * Ron MnoieMAGDI hinton - 07/12/2023 6:15 AM CDT Occupational [...] Carbohydrate Diet effective now Question Answer Comment ([facility]) Diet type Restricted Fat / Sodium Restriction: [...] supplement you enjoyed during your stay at [facility]. Some examples of nutrition supplements include Glucerna, Ensure, Boost, or a homemade high protein and/or calorie drink. It is recommended to continue drinking two supplements each day for [address],LD * Kalen Rivera, VIVEK - 07/11/2023 9:17 AM CDT Images from the original note were not included. [facility] CVR Daily Progress Note- Patient: Judi Nolasco : 1945 Age: 77 y.o. male Admitting Physician: Keaton Lynn MD Insurance Billing Specialist: Izabella Alfaro MD, RUST Shift: [facility] CVR AM Interval History: 500 LR x [...] in place with clear, yellow urine Skin: [place], warm, dry, midline sternal incision clean, dry, [...] 0659 07/11/23 0700 - 07/12/23 0659 Shift [phone] 7864-2287 24 Hour Total 3276-5731 2857-4845 24 Hour Total INTAKE P.O. 700 700 I.V.(mL/kg) 1734(15.6) 1417(12.7) 3151(28.3) Blood 861 861 IV Piggyback 300 300 Shift Total(mL/kg) 2895(26) 2117(19) 5012(45.1) OUTPUT Urine(mL/kg/hr) 850(0.6) 1195(0.9) 2045(0.8) 85 85 Blood 200 200 Chest Tube 130 320 450 110 110 Shift Total(mL/kg) 1180(10.6) 1515(13.6) 2695(24.2) 195(1.8) 195(1.8) NET 3642 043 8224 -195 -195 Weight (kg) 111.2 111.2 111.2 [...] Insufficiency Atelectasis Pleural Effusion MONIKA Extubated to [place] overnight. Rested on CPAP. CXR with trace [...] DME he needs, but owns none, (owns [employer] so has equipment there. 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 [...] Pain Interventions Repositioned Cognition Cognition Comments mild SALAMATOF, is belching a lot and does not [...] (S) pt must make anticipated progress to ar home. PT Frequency during current admission 3-5x/wk Treatment/Interventions during current admission Bed mobility;Compensatory technique education;Functional activity;Gait training;Therapeutic activity;Therapeutic exercise PT Equipment Recommended None (per pt has access to DME) Progress during current admission Slow progress, decreased activity tolerance PT Evaluation Complete Yes Multi-Disciplinary Problems (from Physical Therapy) Active Problems Problem: PT [facility] Start Date: 07/11/23 Goal Start Date Expected End Date End Date PT [facility] 1 07/11/23 08/03/23 -- Goal Details: Independent bed mobility and transfers adhering to sternal precautions 100% of the time. Goal Start Date Expected End Date End Date PT [facility] 2 07/11/23 08/03/23 -- Goal Details: Pt amb 360ft with least restrictive device level surfaces mod indep or indep. Goal Start Date Expected End Date End Date PT [facility] - [facility] 3 07/11/23 08/03/23 -- Goal Details: Pt amb up/down curb step mod indep or indep and up/down 3 steps with single HR mod indep or indep with good dyn stand balance and/or low fall risk on Villarreal balance scale. Goal Start Date Expected End Date End Date PT [facility] 4 07/11/23 08/03/23 -- Goal Details: Pt [...] for long distances. 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 [facility] CVR PM Progress Note- Patient: Judi Nolasco : 1945 Age: 77 y.o. male Admiting Physician: Keaton Lynn MD Insurance Billing Specialist: Izabella Alfaro MD, RUST Shift: [facility] CVR PM Interval History: - Arrived from [...] - 07/11/2365807/11/23 07 - 07/12/23 0659 Shift 2510-2557 0608-8224 24 Hour Total 7773-2967 3167-4867 24 Hour Total INTAKE I.V.(mL/kg) 1734(15.6) 1734(15.6) Blood 861 861 IV Piggyback 300 300 Shift Total(mL/kg) 2895(26) 2895(26) OUTPUT Urine(mL/kg/hr) 850(0.6) 1035 1885 Blood 200 200 Chest Tube 130 270 400 Shift Total(mL/kg) 1180(10.6) 1305(11.7) 2485(22.3) NET 1715 -1303 410 Weight (kg) 111.2 111.2 111.2 111.2 [...] glycol and bisacodyl suppository PRN. Glycemic control: [place] Protocol insulin gtt. Lab Results Component Value [...] from the original note were not included. [facility] CVR History & Physical - Patient: Judi Nolasco : 1945 Age: 77 y.o. male Admitting Physician: Keaton Lynn MD Insurance Billing Specialist: Izabella Alfaro MD, RUST Shift: [facility] CVR AM HPI: 77 y.o. male presenting [...] Medical History: Diagnosis Date Arthritis Arthritis; Comments: [facility] 10/19/2015 - HX OTHER MEDICAL ascending aortic aneurysm; Comments: [facility] 10/19/2015 - Hypertension Hypertension Sleep apnea Sleep [...] Admitted) 07/10/23 07 - 07/11/23 0659 Shift 1856-5069 5533-9079 24 Hour Total 3364-9029 8882-7149 24 Hour Total INTAKE I.V. 1636(14.7) 1636(14.7) [...] glycol and bisacodyl suppository PRN. Glycemic control: [place] Protocol insulin gtt. Lab Results Component Value [...] is primarily with heavy lifting. 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 This time was in addition to and separate from care provided by other practitioners on this day of service. * Laquita Parson NP - 07/10/2023 6:36 PM CDTAssociated Order(s): Critical Care Post-Procedure Diagnose(s): Aneurysm of ascending aorta without rupture (HCC) Critical Care Performed by: Laquita Parson NP Authorized by: Laquita Parson NP CRITICAL CARE: Team: [facility] CT Shift: PM Level of Billing: Subsequent [...] plan with the patient's team and other medical/advisor consultant staff. This time was in addition [...] by: Kalen Rivera DNP CRITICAL CARE: Team: [facility] CT Shift: AM Level of Billing: Critical [...] plan with the ICU team and other medical/advisor consultant staff, making frequent assessments and decisions [...] CDT 07/15/2023 1030 DC info sent to [facility] who have accepted patient. * Plan [...] SMITH, patient can be seen sooner by [facility]. [facility] HH consult closed and no services set up at this time. * Incidental Note - Josie Coffey RN - 07/12/2023 3:16 PM CDT LUIS Initial Assessment Interview Note Information Obtained From: Patient (07/12/231513) Admission Source: home Impression: repair ascending aortic aneurysm Plan Includes: home with [facility]. [facility] ) care has accepted patient. Primary Source of Transportation: Does the patient need discharge transport arranged?: No (07/12/231513) Health Insurance Coverage: Medicare Prescription Coverage: yes Pharmacy: [facility] [id number] [place] [id number] Primary Care Provider: Radha Lozada MD Prior [...] a week How often do you attend yarsanism or alevism services?: More than 4 times per year Do you belong to any clubs or organizations such as yarsanism groups, unions, fraternal [...] Screening Potential discharge needs include: Home Health: senior living (07/12/231513) Dialysis: Behavioral Health Services: Behavioral Health Services: No (07/12/231513) Patient expects to be Discharged to: Private residence, (07/12/23 2676) Additional Information: Lives at home with . 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 Discharge plan to return home with . Home health care orders received. [facility] home health care referrals sent via [employer]. Patient informed of accepting home health care agencies and has chosen [facility] home health care. Patient's Identified Problem/Goal Problem: [...] Collaboration with patient, MD, direct care nurse, Loan Clerk, and other members of the health care team to assure needed interventions completed. 2. Return patient to optimal level of self-care post discharge. 3. Residential Program Coordinator will follow for Discharge Planning - interventions as needed 4. Anticipated level of care at discharge 5. Planned Discharge Disposition Josie Coffey RN * Plan of Care - Sandra Villalpando RN - 07/12/2023 2:55 PM CDT [facility] Home Health consult received. [facility] Home Care agency accepted patient with projected [...] by anesthesia using cerebral oximetry and a [place]-Jered catheter, and prepped and draped in sterile [...] signed by: Chao Rodríguez M.D. Kalen Rivera [facility] IMG XR PROCEDURES Fi nal Result * eGFR (07/14/2023 1:34 AM CDT) eGFR 91 mL/min/1. 73 m2 [facility] Comment: Interpretive Data Reference Interval Normal [...] CDT 07/14/2023 1:34 AM CDT Kalen Rivera [facility] LAB BLOOD ORDERABLES Final Result Performing Organization Address City/[facility]/ZIP Co de Phone Number [facility] [address] [place] [address] * Magnesium (07/14/2023 1:34 AM CDT) Pathologist [facility] Magnesium 2.2 1.4 - 2.5 mg/dL [facility] Blood 07/14/2023 1:34 AM CDT 07/14/2023 1:34 AM CDT Kalen Rivera [facility] LAB BLOOD ORDERABLES Final Result Performing Organization Address [facility] de Phone Number [facility] [address] [place] [address] * (ABNORMAL) Renal function panel (07/14/2023 1:34 AM CDT) Pathologist [facility] Sodium 136 135 - 145 mmol/L [facility] Potassium, pl 3.9 3.3 - 4.9 mmol/L [facility] Chloride 98 97 - 110 mmol/L [facility] CO2 27 22 - 32 mmol/L [facility] Anion gap 11 2 - 15 mmol/L [facility] BUN 19 6 - 25 mg/dL [facility] Creatinine 0.81 0.80 - 1.30 mg/dL [facility] Glucose 105 70 - 199 mg/dL [facility] Comment: Interpretive Data Fasting glucose [...] 2022. Calcium 8.3(L) 8.5 - 10.3 mg/dL [facility] Phosphorus, pl 2.3 2.3 - 4.5 mg/dL [facility] Albumin 3.2(L) 3.5 - 5.0 g/dL [facility] Blood 07/14/2023 1:34 AM CDT 07/14/2023 1:34 AM CDT us Kalen Rivera [facility] LAB BLOOD ORDERABLES Final Result [facility] [address] Department [place] [address] * (ABNORMAL) CBC without differential (07/14/2023 1:34 AM CDT) WBC 11.1(H) 3.8 - 9.9 K/cumm [facility] Hgb 10.4(L) 13.0 - 17.5 g/dL [facility] Hct 31.1(L) 38.9 - 50.3 % [facility] Plt 145(L) 150 - 400 K/cumm [facility] MPV 9.5 9.1 - 12.3 fL [facility] RBC 3.14(L) 4.30 - 5.80 M/cumm [facility] MCV 99.0(H) 81.3 - 96.4 fL [facility] MCH 33.1 27.1 - 33.3 pg [facility] MCHC 33.4 32.3 - 35.7 g/dL [facility] RDW CV 13.4 11.1 - 14.9 % [facility] RDW SD 48.2(H) 35.7 - 48.1 fL [facility] NRBC abs 0.02(H) 0.00 - 0.01 K/cumm [facility] Blood 07/14/2023 1:34 AM CDT 07/14/2023 1:34 AM CDT Kalen Rivera [facility] LAB BLOOD ORDERABLES Final Result Performing Organization Address City/[facility]/ZIP Co de Phone Number [facility] [address] [place] [address] * (ABNORMAL) Calcium, ionized (07/14/2023 1:31 AM CDT) Calcium, Ionized 4.33(L) 4.50 - 5.10 mg/dL [facility] Blood 07/14/2023 1:31 AM CDT 07/14/2023 1:31 AM CDT Kalen [place] Rivera [facility] LAB BLOOD ORDERABLES Final Result Performing Organization Address [facility] de Phone Number [facility] [address] [place] [address] * XR Chest 1 View - Portable [...] CDT) eGFR 89 mL/min/1. 73 m2 [facility] Comment: Interpretive Data Reference Interval Normal [...] Rivera DNP LAB BLOOD ORDERABLES Final Result [facility] [address] Department [place] [address] * Magnesium (07/13/2023 12:49 AM CDT) [facility] Magnesium 1.9 1.4 - 2.5 mg/dL [facility] Blood 07/13/2023 12:4 9 AM CDT 07/13/2023 1:06 AM CDT Kalen Rivera [facility] LAB BLOOD ORDERABLES Final Result Performing Organization Address City/[facility]/ZIP Co de Phone Number [facility] [address] [facility] [place] [address] * (ABNORMAL) Calcium, ionized (07/13/2023 12:49 AM CDT) [facility] Calcium, Ionized 4.46(L) 4.50 - 5.10 mg/dL [facility] Blood 07/13/2023 12:4 9 AM CDT 07/13/2023 1:03 AM CDT Kalen Rivera [facility] LAB BLOOD ORDERABLES Final Result Performing Organization Address City/[facility]/ZIP Co de Phone Number [facility] [address] [facility] [place] [address] * (ABNORMAL) Renal function panel (07/13/2023 12:49 AM CDT) [facility] Sodium 132(L) 135 - 145 mmol/L [facility] Potassium, pl 3.8 3.3 - 4.9 mmol/L [facility] Chloride 97 97 - 110 mmol/L [facility] CO2 26 22 - 32 mmol/L [facility] Anion gap 9 2 - 15 mmol/L [facility] BUN 17 6 - 25 mg/dL [facility] Creatinine 0.87 0.80 - 1.30 mg/dL [facility] Glucose 128 70 - 199 mg/dL [facility] Comment: Interpretive Data Fasting glucose [...] 2022. Calcium 8.5 8.5 - 10.3 mg/dL [facility] Phosphorus, pl 1.6(L) 2.3 - 4.5 mg/dL [facility] Albumin 3.4(L) 3.5 - 5.0 g/dL [facility] Blood 07/13/2023 12:4 9 AM CDT 07/13/2023 1:06 AM CDT Kalen Rivera [facility] LAB BLOOD ORDERABLES Final Result [facility] [address] Department [place] [address] * (ABNORMAL) CBC without differential (07/13/2023 12:49 AM CDT) WBC 10.4(H) 3.8 - 9.9 K/cumm [facility] Hgb 10.4(L) 13.0 - 17.5 g/dL [facility] Hct 30.1(L) 38.9 - 50.3 % [facility] Plt 115(L) 150 - 400 K/cumm [facility] MPV 9.6 9.1 - 12.3 fL [facility] RBC 3.13(L) 4.30 - 5.80 M/cumm [facility] MCV 96.2 81.3 - 96.4 fL [facility] MCH 33.2 27.1 - 33.3 pg [facility] MCHC 34.6 32.3 - 35.7 g/dL [facility] RDW CV 13.2 11.1 - 14.9 % [facility] RDW SD 45.8 35.7 - 48.1 fL [facility] NRBC abs 0.00 0.00 - 0.01 K/cumm [facility] Blood 07/13/2023 12:4 9 AM CDT 07/13/2023 1:07 AM CDT Kalen Rivera DNP LAB BLOOD ORDERABLES Final Result Performing Organization Address [facility]/ZIP Co de Phone Number [facility] [address] [facility] [place] [address] * POCT glucose (07/12/2023 12:07 PM CDT) Glucose, POC 105 70 - 140 mg/dL [facility] Comment: For Glucose values <35 mg/dl when Hematocrit is >60 mg/dl,the test may not accurately detect significant hypoglycemia,and testing in the Laboratory should be considered if clinically indicated. Blood 07/12/2023 12:0 7 PM CDT 07/12/2023 12:07 PM CDT Keaton Lnyn MD LAB POCT ORDERABLES - DE VICE Final Result Performing Organization Address [facility] Co de Phone Number [facility] [address] [facility] [place] [address] * POCT glucose (07/12/2023 8:20 AM CDT) Glucose, POC 118 70 - 140 mg/dL [facility] Comment: For Glucose values <35 mg/dl when Hematocrit is >60 mg/dl,the test may not accurately detect significant hypoglycemia,and testing in the Laboratory should be considered if clinically indicated. Blood 07/12/2023 8:20 AM CDT 07/12/2023 8:20 AM CDT Keaton Lynn MD LAB POCT ORDERABLES - DE VICE Final Result Performing Organization Address City/[facility]/ZIP Co de Phone Number [facility] [address] Department [place] [address] * XR Chest 1 View - Portable [...] AM CDT) 07/12/2023 2:01 AM CDT Narrative [facility] - 07/12/2023 5:01 PM CDT Vent Rate: 87 bpm RR Interval: 683 msec AR Interval: 126 msec QRS Duration: 100 msec QT Interval: 373 msec QTC Interval: 418 msec P-R-T [place]: 0 - -28 - 38 degrees IMPRESSION: SINUS RHYTHM WITH SINUS ARRHYTHMIA BORDERLINE LEFT AXIS DEVIATION BORDERLINE ECG Electronically Signed By: Rory Dowling MD [facility] us Kathryn Richey [employer] ECG ORDERABLES Final Res ult [facility] * eGFR (07/12/2023 12:25 AM CDT) eGFR 76 mL/min/1. 73 m2 [facility] Comment: Interpretive Data Reference Interval Normal [...] CDT 07/12/2023 12:39 AM CDT Kalen Rivera [facility] LAB BLOOD ORDERABLES Final Result Performing Organization Address City/[facility] Co de Phone Number [facility] [address] [facility] [place] [address] * Magnesium (07/12/2023 12:25 AM CDT) [facility] Magnesium 2.4 1.4 - 2.5 mg/dL [facility] Comment:Reviewed Blood 07/12/2023 12:2 5 AM CDT 07/12/2023 12:39 AM CDT Kalen Rivera [facility] LAB BLOOD ORDERABLES Final Result Performing Organization Address [facility] Co de Phone Number [facility] [address] [facility] [place] [address] * Calcium, ionized (07/12/2023 12:25 AM CDT) [facility] Calcium, Ionized 4.59 4.50 - 5.10 mg/dL [facility] Blood 07/12/2023 12:2 5 AM CDT 07/12/2023 12:33 AM CDT Kalen Rivera [facility] LAB BLOOD ORDERABLES Final Result Performing Organization Address [facility] Co de Phone Number [facility] [address] [place] [address] * (ABNORMAL) Renal function panel (07/12/2023 12:25 AM CDT) [facility] Sodium 133(L) 135 - 145 mmol/L [facility] Potassium, pl 4.2 3.3 - 4.9 mmol/L [facility] Chloride 98 97 - 110 mmol/L [facility] CO2 25 22 - 32 mmol/L [facility] Anion gap 10 2 - 15 mmol/L [facility] BUN 20 6 - 25 mg/dL [facility] Creatinine 1.02 0.80 - 1.30 mg/dL [facility] Glucose 119 70 - 199 mg/dL [facility] Comment: Interpretive Data Fasting glucose [...] 2022. Calcium 8.6 8.5 - 10.3 mg/dL [facility] Phosphorus, pl 2.7 2.3 - 4.5 mg/dL [facility] Albumin 3.2(L) 3.5 - 5.0 g/dL [facility] Blood 07/12/2023 12:2 5 AM CDT 07/12/2023 12:39 AM CDT Kalen Rivera DNP LAB BLOOD ORDERABLES Final Result [facility] [address] Department [place] [address] * (ABNORMAL) CBC without differential (07/12/2023 12:25 AM CDT) WBC 12.0(H) 3.8 - 9.9 K/cumm [facility] Hgb 11.0(L) 13.0 - 17.5 g/dL [facility] Hct 32.8(L) 38.9 - 50.3 % [facility] Plt 129(L) 150 - 400 K/cumm [facility] MPV 9.9 9.1 - 12.3 fL [facility] RBC 3.32(L) 4.30 - 5.80 M/cumm [facility] MCV 98.8(H) 81.3 - 96.4 fL [facility] MCH 33.1 27.1 - 33.3 pg [facility] MCHC 33.5 32.3 - 35.7 g/dL [facility] RDW CV 13.4 11.1 - 14.9 % [facility] RDW SD 48.3(H) 35.7 - 48.1 fL [facility] NRBC abs 0.00 0.00 - 0.01 K/cumm [facility] Blood 07/12/2023 12:2 5 AM CDT 07/12/2023 12:40 AM CDT Kalen Rivera DNP LAB BLOOD ORDERABLES Final Result Performing Organization Address [facility] Co de Phone Number [facility] [address] [place] [address] * POCT glucose (07/11/2023 9:24 PM CDT) Pathologist [facility] Glucose, POC 124 70 - 140 mg/dL [facility] Comment: For Glucose values <35 mg/dl when Hematocrit is >60 mg/dl,the test may not accurately detect significant hypoglycemia,and testing in the Laboratory should be considered if clinically indicated. Blood 07/11/2023 9:24 PM CDT 07/11/2023 9:24 PM CDT Keaton Lynn MD LAB POCT ORDERABLES - DE VICE Final Result Performing Organization Address [facility] Co de Phone Number [facility] [address] [place] [address] * eGFR (07/11/2023 8:25 PM CDT) eGFR 83 mL/min/1. 73 m2 [facility] Comment: Interpretive Data Reference Interval Normal [...] 07/11/2023 8:30 PM CDT us Kathryn Richey [employer] LAB BLOOD ORDERABLES Harriet l Result Performing Organization Address City/[facility]/ZIP Co de Phone Number [facility] [address] Department [employer] [place] [address] * Magnesium (07/11/2023 8:25 PM CDT) Magnesium 1.9 1.4 - 2.5 mg/dL [facility] Blood 07/11/2023 8:25 PM CDT 07/11/2023 8:30 PM CDT Kathryn Richey [employer] LAB BLOOD ORDERABLES Harriet l Result [facility] [address] [place] [address] * (ABNORMAL) Renal function panel (07/11/2023 8:25 PM CDT) Sodium 133(L) 135 - 145 mmol/L [facility] Potassium, pl 4.2 3.3 - 4.9 mmol/L [facility] Chloride 99 97 - 110 mmol/L [facility] CO2 27 22 - 32 mmol/L [facility] Anion gap 7 2 - 15 mmol/L [facility] BUN 20 6 - 25 mg/dL [facility] Creatinine 0.94 0.80 - 1.30 mg/dL [facility] Glucose 119 70 - 199 mg/dL [facility] Comment: Interpretive Data Fasting glucose [...] 2022. Calcium 8.7 8.5 - 10.3 mg/dL [facility] Phosphorus, pl 2.9 2.3 - 4.5 mg/dL [facility] Albumin 3.3(L) 3.5 - 5.0 g/dL [facility] Blood 07/11/2023 8:25 PM CDT 07/11/2023 8:30 PM CDT Kathryn Richey NP LAB BLOOD ORDERABLES Harriet lim Result [facility] [address] Department [place] [address] * POCT glucose (07/11/2023 5:16 PM CDT) [facility] Glucose, POC 114 70 - 140 mg/dL [facility] Comment: For Glucose values <35 mg/dl when Hematocrit is >60 mg/dl,the test may not accurately detect significant hypoglycemia,and testing in the Laboratory should be considered if clinically indicated. Blood 07/11/2023 5:16 PM CDT 07/11/2023 5:16 PM CDT us Keaton Lynn MD LAB POCT ORDERABLES - DE VICE Final Result Performing Organization Address [facility] Co de Phone Number [facility] [address] [place], [place] [id number] * POCT glucose (07/11/2023 11:10 AM CDT) Glucose, POC 138 70 - 140 mg/dL [facility] Comment: For Glucose values <35 mg/dl when Hematocrit is >60 mg/dl,the test may not accurately detect significant hypoglycemia,and testing in the Laboratory should be considered if clinically indicated. Blood 07/11/2023 11:1 0 AM CDT 07/11/2023 11:10 AM CDT us Keaton Lynn MD LAB POCT ORDERABLES - DE VICE Final Result Performing Organization Address [facility] Co de Phone Number [facility] [address] [place], [place] [id number] * Lactate (07/11/2023 11:06 AM CDT) [facility] Lactate 1.4 0.7 - 2.0 mmol/L [facility] Blood 07/11/2023 11:0 6 AM CDT 07/11/2023 11:15 AM CDT us Kalen Rivera DNP LAB BLOOD ORDERABLES Final Result Performing Organization Address City/[facility]/ZIP Co de Phone Number [facility] [address] [place], [place] [id number] * Critical Care (07/11/2023 9:27 AM CDT) Narrative Kalen Rivera DNP - 07/11/2023 9:27 AM CDT Kalen Rivera DNP ? 07/11/2023 12:23 PM Critical Care Performed by: Kalen Rivera DNP Authorized by: Kalen Rivera DNP ?? CRITICAL CARE: ??Team: ??[facility] CT ??Shift: ??AM ??Level of Billing: ??Subsequent [...] plan with the patient's team and other medical/advisor consultant staff. This time was in addition to and separate from care provided by other practitioners on this day of service. ?? Kalen Rivera DNP IN CLINIC/BEDSIDE OR DERABLES Final Result * (ABNORMAL) POCT glucose (07/11/2023 7:53 AM CDT) Glucose, POC 141(H) 70 - 140 mg/dL [facility] Comment: For Glucose values <35 mg/dl when Hematocrit is >60 mg/dl,the test may not accurately detect significant hypoglycemia,and testing in the Laboratory should be considered if clinically indicated. Blood 07/11/2023 7:53 AM CDT 07/11/2023 7:53 AM CDT Keaton Lynn MD LAB POCT ORDERABLES - DE VICE Final Result [facility] [address] Department [place] [address] * POCT glucose (07/11/2023 6:15 AM CDT) Glucose, POC 117 70 - 140 mg/dL [facility] Comment: For Glucose values <35 mg/dl when Hematocrit is >60 mg/dl,the test may not accurately detect significant hypoglycemia,and testing in the Laboratory should be considered if clinically indicated. Blood 07/11/2023 6:15 AM CDT 07/11/2023 6:15 AM CDT us Keaton Lynn MD LAB POCT ORDERABLES - DE VICE Final Result [facility] [address] Department [place] [address] * XR Chest 1 View - Portable - in AM (07/11/2023 5:53 AM CDT) Anatomical Region Laterality Modality Body, Chest N/A Computed Radiogr aphy 07/11/2023 8:15 AM CDT Impressions 07/11/2023 8:15 AM CDT There has been interval extubation and gastric tube removal. ??A right internal jugular [place]-Jered catheter has been removed. ??A right internal [...] gastric tube removal. A right internal jugular [place]-Jered catheter has been removed. A right internal [...] Glucose, POC 133 70 - 140 mg/dL [facility] Comment: For Glucose values <35 mg/dl when Hematocrit is >60 mg/dl,the test may not accurately detect significant hypoglycemia,and testing in the Laboratory should be considered if clinically indicated. Blood 07/11/2023 4:32 AM CDT 07/11/2023 4:32 AM CDT Keaton Lynn MD LAB POCT ORDERABLES - DE VICE Final Result Performing Organization Address [facility] Co de Phone Number [facility] [address] [employer] [place], [place] [id number] * (ABNORMAL) POCT glucose (07/11/2023 2:39 AM CDT) Glucose, POC 162(H) 70 - 140 mg/dL [facility] Comment: For Glucose values <35 mg/dl when Hematocrit is >60 mg/dl,the test may not accurately detect significant hypoglycemia,and testing in the Laboratory should be considered if clinically indicated. Blood 07/11/2023 2:39 AM CDT 07/11/2023 2:39 AM CDT Keaton Lynn MD LAB POCT ORDERABLES - DE VICE Final Result Performing Organization Address [facility] Co de Phone Number [facility] [address] [place] [address] * Prepare RBC (07/11/2023 1:47 AM CDT) Product code [id number] [facility] Unit Number [id number] 6-0 [facility] Product Blood Type OPOS [facility] Dispense Status RETURNED [facility] Product code [id number] [facility] Unit Number [id number] 4-I [facility] Product Blood Type OPOS [facility] Dispense Status RETURNED [facility] Product code [id number] [facility] [id number] 5-2 [facility] Product Blood Type OPOS [facility] Dispense Status RETURNED [facility] Product code [id number] [facility] Unit Number [id number] 7-* [facility] Product Blood Type OPOS [facility] Dispense Status RETURNED [facility] Blood 07/11/2023 1:47 AM CDT 07/11/2023 1:47 AM CDT us Keaton Lynn MD BLOOD BANK PRODUCT ORDER EMELYN Final Result [facility] [address] Department [place] [address] * eGFR (07/11/2023 12:52 AM CDT) eGFR 89 mL/min/1. 73 m2 [facility] Comment: Interpretive Data Reference Interval Normal [...] CDT 07/11/2023 1:01 AM CDT Kalen Rivera [facility] LAB BLOOD ORDERABLES Final Result [facility] [address] [place] [address] * (ABNORMAL) Lactate (07/11/2023 12:52 AM CDT) Pathologist [facility] Lactate 3.1(H) 0.7 - 2.0 mmol/L [facility] Blood 07/11/2023 12:5 2 AM CDT 07/11/2023 12:58 AM CDT Laquita Parson [employer] LAB BLOOD ORDERABLES Harriet l Result Performing Organization Address [facility] Co de Phone Number [facility] [address] [place], [place] [id number] * Magnesium (07/11/2023 12:52 AM CDT) Pathologist [facility] Magnesium 2.1 1.4 - 2.5 mg/dL [facility] Blood 07/11/2023 12:5 2 AM CDT 07/11/2023 1:01 AM CDT Kalen Rivera [facility] LAB BLOOD ORDERABLES Final Result Performing Organization Address City/[facility] Co de Phone Number [facility] [address] [place], [place] [phone] * (ABNORMAL) Calcium, ionized (07/11/2023 12:52 AM CDT) Calcium, Ionized 4.39(L) 4.50 - 5.10 mg/dL [facility] Blood 07/11/2023 12:5 2 AM CDT 07/11/2023 12:58 AM CDT Kalen Rivera DNP LAB BLOOD ORDERABLES Final Result [facility] [address] Department [place] [address] * (ABNORMAL) Renal function panel (07/11/2023 12:52 AM CDT) [facility] Sodium 141 135 - 145 mmol/L [facility] Potassium, pl 4.6 3.3 - 4.9 mmol/L [facility] Chloride 107 97 - 110 mmol/L [facility] CO2 23 22 - 32 mmol/L [facility] Anion gap 11 2 - 15 mmol/L [facility] BUN 18 6 - 25 mg/dL [facility] Creatinine 0.87 0.80 - 1.30 mg/dL [facility] Glucose 176 70 - 199 mg/dL [facility] Comment: Interpretive Data Fasting glucose [...] 2022. Calcium 8.3(L) 8.5 - 10.3 mg/dL [facility] Phosphorus, pl 3.5 2.3 - 4.5 mg/dL [facility] Albumin 3.4(L) 3.5 - 5.0 g/dL [facility] Blood 07/11/2023 12:5 2 AM CDT 07/11/2023 1:01 AM CDT Kalen [place] Rivera [facility] LAB BLOOD ORDERABLES Final Result [facility] [address] [place] [address] * (ABNORMAL) CBC without differential (07/11/2023 12:52 AM CDT) WBC 8.7 3.8 - 9.9 K/cumm [facility] Hgb 10.8(L) 13.0 - 17.5 g/dL [facility] Hct 31.8(L) 38.9 - 50.3 % [facility] Plt 119(L) 150 - 400 K/cumm [facility] MPV 9.7 9.1 - 12.3 fL [facility] RBC 3.25(L) 4.30 - 5.80 M/cumm [facility] MCV 97.8(H) 81.3 - 96.4 fL [facility] MCH 33.2 27.1 - 33.3 pg [facility] MCHC 34.0 32.3 - 35.7 g/dL [facility] RDW CV 13.3 11.1 - 14.9 % [facility] RDW SD 47.7 35.7 - 48.1 fL [facility] NRBC abs 0.00 0.00 - 0.01 K/cumm [facility] Blood 07/11/2023 12:5 2 AM CDT 07/11/2023 1:01 AM CDT Kalen Rivera [facility] LAB BLOOD ORDERABLES Final Result [facility] [address] [employer] [place], [place] [id number] * Type and screen (07/11/2023 12:52 AM CDT) Chacorta, indirect Negative [facility] ABO Rh O Positive [facility] Blood 07/11/2023 12:5 2 AM CDT 07/11/2023 12:59 AM CDT Narrative [facility] - 07/11/2023 1:44 AM CDT Has the patient had Daratumumab or Isatuximab in the past 6 months?->Unknown Result [facility] Kalen Rivera [facility] LAB BLOOD BANK TEST ORDERABLES Final Result Performing Organization Address City/[facility]/ZIP Co de Phone Number [facility] [address] [facility] [place] [address] * (ABNORMAL) POCT glucose (07/11/2023 12:50 AM CDT) Glucose, POC 176(H) 70 - 140 mg/dL [facility] Comment: For Glucose values <35 mg/dl when Hematocrit is >60 mg/dl,the test may not accurately detect significant hypoglycemia,and testing in the Laboratory should be considered if clinically indicated. Blood 07/11/2023 12:5 0 AM CDT 07/11/2023 12:50 AM CDT Result [facility] Keaton Lynn MD LAB POCT ORDERABLES - DE VICE Final Result Performing Organization Address [facility] Co de Phone Number [facility] [address] [facility] [place] [address] * (ABNORMAL) POCT glucose (07/11/2023 12:08 AM CDT) Glucose, POC 147(H) 70 - 140 mg/dL [facility] Comment: For Glucose values <35 mg/dl when Hematocrit is >60 mg/dl,the test may not accurately detect significant hypoglycemia,and testing in the Laboratory should be considered if clinically indicated. Blood 07/11/2023 12:0 8 AM CDT 07/11/2023 12:08 AM CDT Result [facility] Keaton Lynn MD LAB POCT ORDERABLES - DE VICE Final Result Performing Organization Address [facility] Co de Phone Number [facility] [address] [place] [address] * (ABNORMAL) POCT glucose (07/10/2023 11:13 PM CDT) Glucose, POC 177(H) 70 - 140 mg/dL [facility] Comment: For Glucose values <35 mg/dl when Hematocrit is >60 mg/dl,the test may not accurately detect significant hypoglycemia,and testing in the Laboratory should be considered if clinically indicated. Blood 07/10/2023 11:1 3 PM CDT 07/10/2023 11:13 PM CDT Keaton Lynn MD LAB POCT ORDERABLES - DE VICE Final Result Performing Organization Address [facility] Co de Phone Number [facility] [address] [place] [address] * (ABNORMAL) POCT glucose (07/10/2023 8:36 PM CDT) Glucose, POC 163(H) 70 - 140 mg/dL [facility] Comment: For Glucose values <35 mg/dl when Hematocrit is >60 mg/dl,the test may not accurately detect significant hypoglycemia,and testing in the Laboratory should be considered if clinically indicated. Blood 07/10/2023 8:36 PM CDT 07/10/2023 8:36 PM CDT Keaton Lynn MD LAB POCT ORDERABLES - DE VICE Final Result Performing Organization Address City/[facility] Co de Phone Number [facility] [address] [place] [address] * Oxyhemoglobin, central venous (07/10/2023 8:32 PM CDT) Oxyhemoglobin, CV 72.8 % [facility] Comment: Interpretive Data No reference range established. Current interpretive data was last revised 2019. Blood 07/10/2023 8:32 PM CDT 07/10/2023 8:41 PM CDT Kalen Rivera [facility] LAB BLOOD ORDERABLES Final Result [facility] [address] Department [place] [address] * Critical Care (07/10/2023 6:36 PM CDT) Narrative Laquita Parson NP - 07/10/2023 6:36 PM CDT Laquita Parson NP ? 07/11/2023 ??3:32 AM Critical Care Performed by: Laquita Parson NP Authorized by: Laquita Parson NP ?? CRITICAL CARE: ??Team: ??[facility] ??Shift: ??PM ??Level of Billing: ??Subsequent [...] plan with the patient's team and other medical/advisor consultant staff. This time was in addition [...] POC 155(H) 70 - 140 mg/dL [facility] Comment: For Glucose values <35 mg/dl when Hematocrit is >60 mg/dl,the test may not accurately detect significant hypoglycemia,and testing in the Laboratory should be considered if clinically indicated. Blood 07/10/2023 6:34 PM CDT 07/10/2023 6:34 PM CDT us Keaton Lynn MD LAB POCT ORDERABLES - DE VICE Final Result [facility] [address] Department [place] [address] * Critical Care (07/10/2023 6:04 PM CDT) Narrative Kalen Rivera DNP - 07/10/2023 6:04 PM CDT Kalen Rivera DNP ? 07/10/2023 ??6:56 PM Critical Care Performed by: Kalen Rivera DNP Authorized by: Kalen Rivera DNP ?? CRITICAL CARE: ??Team: ??[facility] ??Shift: ??AM ??Level of Billing: ??Critical [...] plan with the ICU team and other medical/advisor consultant staff, making frequent assessments and decisions [...] * eGFR (07/10/2023 4:26 PM CDT) Pathologist [facility] eGFR 80 mL/min/1. 73 m2 [facility] [...] CDT 07/10/2023 4:34 PM CDT Kalen Rivera [facility] LAB BLOOD ORDERABLES Final Result [facility] [address] Department [place] [address] * (ABNORMAL) POCT glucose (07/10/2023 4:26 PM CDT) [facility] Signature Glucose, POC 153(H) 70 - 140 mg/dL [facility] Comment: For Glucose values <35 mg/dl when Hematocrit is >60 mg/dl,the test may not accurately detect significant hypoglycemia,and testing in the Laboratory should be considered if clinically indicated. Blood 07/10/2023 4:26 PM CDT 07/10/2023 4:26 PM CDT Keaton Lynn MD LAB POCT ORDERABLES - DE VICE Final Result Performing Organization Address [facility] Co de Phone Number [facility] [address] [facility] [place] [address] * aPTT (07/10/2023 4:26 PM CDT) aPTT 30 28 - 38 sec [facility] Comment: Interpretive Data Therapeutic heparin range: 60.0 - 94.0 seconds. Based on correlation with therapeutic heparin activity range of 0.3-0.7 Units/mL. Current interpretive data was last revised on 2020. Blood 07/10/2023 4:26 PM CDT 07/10/2023 4:34 PM CDT Kalen Rivera DNP LAB BLOOD ORDERABLES Final Result Performing Organization Address [facility] de Phone Number [facility] [address] [place] [address] * (ABNORMAL) Protime-INR (07/10/2023 4:26 PM CDT) PT 14.2(H) 10.3 - 13.7 sec [facility] INR 1.25(H) 0.90 - 1.20 [facility] Comment: Interpretive data Oral anticoagulant therapeutic [...] Final Result Performing Organization Address [facility] Co de Phone Number [facility] [address] Department [place] [address] * (ABNORMAL) CBC without differential (07/10/2023 4:26 PM CDT) [facility] WBC 8.2 3.8 - 9.9 K/cumm [facility] Hgb 10.7(L) 13.0 - 17.5 g/dL [facility] Hct 30.8(L) 38.9 - 50.3 % [facility] Plt 106(L) 150 - 400 K/cumm [facility] MPV 9.5 9.1 - 12.3 fL [facility] RBC 3.19(L) 4.30 - 5.80 M/cumm [facility] MCV 96.6(H) 81.3 - 96.4 fL [facility] MCH 33.5(H) 27.1 - 33.3 pg [facility] MCHC 34.7 32.3 - 35.7 g/dL [facility] RDW CV 13.2 11.1 - 14.9 % [facility] RDW SD 46.3 35.7 - 48.1 fL [facility] NRBC abs 0.00 0.00 - 0.01 K/cumm [facility] Blood 07/10/2023 4:26 PM CDT 07/10/2023 4:34 PM CDT Kalen Rivera [facility] LAB BLOOD ORDERABLES Final Result [facility] [address] Department [place] [address] * (ABNORMAL) Blood gas, arterial (07/10/2023 4:26 PM CDT) [facility] pH, Art 7.40 7.35 - 7.45 [facility] PCO2, Arterial 43 35 - 45 mmHg [facility] PO2, Arterial 155(H) 83 - 108 mmHg [facility] HCO3 Art (Calculated) 27 20 - 30 mmol/L [facility] BE, art 2 mmol/L [facility] Comment: Interpretive Data No Reference Range Established Current Interpretive Data was last revised on 2017 O2 Sat Art (Calculated) 99(H) 94 - 98 % [facility] Blood 07/10/2023 4:26 PM CDT 07/10/2023 4:34 PM CDT Kalen Rivera [facility] LAB BLOOD ORDERABLES Final Result Performing Organization Address [facility] Co de Phone Number [facility] [address] [facility] [place] [address] * Calcium, ionized (07/10/2023 4:26 PM CDT) Calcium, Ionized 5.10 4.50 - 5.10 mg/dL [facility] Blood 07/10/2023 4:26 PM CDT 07/10/2023 4:33 PM CDT Kalen Rivera [facility] LAB BLOOD ORDERABLES Final Result Performing Organization Address [facility] Co de Phone Number [facility] [address] [facility] [address] [place], [place] [id number] * (ABNORMAL) Magnesium (07/10/2023 4:26 PM CDT) Magnesium 2.7(H) 1.4 - 2.5 mg/dL [facility] Blood 07/10/2023 4:26 PM CDT 07/10/2023 4:34 PM CDT Kalen Rivera [facility] LAB BLOOD ORDERABLES Final Result Performing Organization Address [facility] de Phone Number [facility] [address] [facility] [address] [place], [place] [id number] * Basic metabolic panel (07/10/2023 4:26 PM CDT) Sodium 143 135 - 145 mmol/L [facility] Potassium, pl 4.1 3.3 - 4.9 mmol/L [facility] Comment:Hemolyzed; potassium value may be falsely elevated by as much as 0.3 - 0.5 mmol/L. Suggest redraw and reanalysis Chloride 108 97 - 110 mmol/L [facility] CO2 28 22 - 32 mmol/L [facility] Anion gap 7 2 - 15 mmol/L [facility] BUN 17 6 - 25 mg/dL [facility] Creatinine 0.97 0.80 - 1.30 mg/dL [facility] Glucose 151 70 - 199 mg/dL [facility] Comment: Interpretive Data Fasting glucose [...] 2022. Calcium 9.4 8.5 - 10.3 mg/dL [facility] Blood 07/10/2023 4:26 PM CDT 07/10/2023 4:34 PM CDT Kalen Rivera [facility] LAB BLOOD ORDERABLES Final Result Performing Organization Address City/[facility]/ZIP Co de Phone Number [facility] [address] Department [place] [address] * (ABNORMAL) Phosphorus (07/10/2023 4:26 PM CDT) Phosphorus, pl 4.7(H) 2.3 - 4.5 mg/dL [facility] Blood 07/10/2023 4:26 PM CDT 07/10/2023 4:34 PM CDT Kalen Rivera [facility] LAB BLOOD ORDERABLES Final Result [facility] [address] [facility] [place] [address] * REPAIR ANEURYSM ASCENDING AORTIC (07/10/2023 4:11 PM CDT) Anatomical Region Laterality Modality X-Ray Angiograph y Narrative 07/10/2023 4:12 PM CDT Please see OpNote for result. Keaton Lynn MD SURGICAL CASE ORDERS Fin al Result * (ABNORMAL) Protime-INR (07/10/2023 4:02 PM CDT) PT 14.8(H) 10.3 - 13.7 sec [facility] INR 1.30(H) 0.90 - 1.20 [facility] Comment: Interpretive data Oral anticoagulant therapeutic [...] al Result Performing Organization Address [facility] Co de Phone Number [facility] [address] [facility] [place] [address] * Fibrinogen (07/10/2023 4:02 PM CDT) Fibrinogen 182 170 - 400 mg/dL [facility] Blood 07/10/2023 4:02 PM CDT 07/10/2023 4:02 PM CDT Keaton Lynn MD LAB BLOOD ORDERABLES Fin al Result Performing Organization Address [facility]/ZIP Co de Phone Number [facility] [address] Department [place] [address] * aPTT (07/10/2023 4:02 PM CDT) [facility] aPTT 33 28 - 38 sec [facility] Comment: Interpretive Data Therapeutic heparin range: 60.0 - 94.0 seconds. Based on correlation with therapeutic heparin activity range of 0.3-0.7 Units/mL. Current interpretive data was last revised on 2020. Blood 07/10/2023 4:02 PM CDT 07/10/2023 4:02 PM CDT us Keaton Lynn MD LAB BLOOD ORDERABLES Fin al Result [facility] [address] Department [place] [address] * (ABNORMAL) CBC without differential (07/10/2023 4:01 PM CDT) [facility] WBC 9.5 3.8 - 9.9 K/cumm [facility] Hgb 9.4(L) 13.0 - 17.5 g/dL [facility] Hct 26.9(L) 38.9 - 50.3 % [facility] Plt 112(L) 150 - 400 K/cumm [facility] MPV 9.7 9.1 - 12.3 fL [facility] RBC 2.77(L) 4.30 - 5.80 M/cumm [facility] MCV 97.1(H) 81.3 - 96.4 fL [facility] MCH 33.9(H) 27.1 - 33.3 pg [facility] MCHC 34.9 32.3 - 35.7 g/dL [facility] RDW CV 13.1 11.1 - 14.9 % [facility] RDW SD 45.9 35.7 - 48.1 fL [facility] NRBC abs 0.00 0.00 - 0.01 K/cumm [facility] Blood 07/10/2023 4:01 PM CDT 07/10/2023 4:01 PM CDT us Keaton Lynn MD LAB BLOOD ORDERABLES Fin al Result [facility] [address] Department [place] [address] * Surgical pathology (07/10/2023 3:59 PM CDT) Tissue (Aorta) 07/10/2023 1: 29 PM CDT Comment:Placed in formalin p ost procedure. Narrative PATHOLOGY [facility] - 07/12/2023 12:51 PM CDT [place] [id number] [place], [place] ??[address] Tele: ?? Pinky Morfin MD - Roper Operator Note to Patients: This report may contain [...] Patient Name: ??JUDI NOLASCO Address: ??[address] [place], [place] ??[address] Gender: ??M : ??1945 (Age: 77) Service: ??Cardiothoracic Location: ??[id number], ?? Hospital #: ??[id number] Patient Type: ??[facility] Accession #: ? [id number] Taken: ? 07/10/2023 Received ? 07/11/2023 Reported: [...] separation of vessel wall are grossly identified. ??Elevator Serviceman sections are submitted in A1. ?? jxi/07/11/2023 07:52 ? JAP,JXI MICROSCOPIC DESCRIPTION: Sections from the aorta show mild degenerative changes within the wall without distinct medial necrosis or aortitis. ??Some recent hemorrhage is seen in the adventitial connective tissue and a focus of peripheral nerve tissue is noted. Clerical Data Follows A; [id number] REPORT IMAGES AND/OR SCANNED DOCUMENTS ONLY VIEWABLE IN PDF FORMAT The immunohistochemical test(s) cited in this report, if any, was developed and its performance characteristics determined by [facility] Pathology Department. ??It has not been cleared or approved by the U.S. Food and Drug Administration. ??The FDA has determined that such clearance or approval is not necessary. ??This test is used for clinical purposes. ??It should not be regarded as investigational or for research. ??[facility] Laboratory is certified under the Clinical Laboratory [...] MD LAB PATHOLOGY ORDERABLES Final Result PATHOLOGY [facility] Laboratory Receiving [address] [place] [address] * XR Chest 1 Vw (07/10/2023 3:47 [...] Time, High Range (07/10/2023 3:36 PM CDT) [facility] Signature ACT 91 87 - 138 sec [facility] Blood 07/10/2023 3:36 PM CDT 07/10/2023 3:36 PM CDT Keaton Lynn MD LAB BLOOD ORDERABLES Fin al Result [facility] [address] Department of Laboratories [place], [place] [id number] * (ABNORMAL) POC Blood Gas and Chemistries, Arterial - (07/10/2023 3:36 PM CDT) pH, Art POC 7.41 7.35 - 7.45 [facility] pCO2, Art POC 42 35 - 45 mmHg [facility] pO2, Art POC 304(H) 80 - 108 mmHg [facility] Na, POC 138 135 - 145 mmol/L [facility] K POC 4.4 3.3 - 4.9 mmol/L [facility] Comment: Interpretive Data This method is not able to assess for hemolysis, which may falsely increase potassium concentrations. If further testing is needed to evaluate this result, consider in-laboratory plasma potassium. Current Interpretive Data was last revised on 2022. Cl, POC 107 97 - 110 mmol/L [facility] Ionized Ca, POC 4.27(L) 4.50 - 5.10 mg/dL [facility] Glucose, POC 173 70 - 199 mg/dL [facility] Lactate, POC 2.2(H) 0.0 - 2.0 mmol/L [facility] O2Hb, Art POC 97.7(H) 90.0 - 95.0 % [facility] Carboxhgb fract 1.9 0.0 - 2.9 % [facility] Methemoglobin 0.4 0.0 - 1.9 % [facility] HHb, POC 0.0 0.0 - 5.0 % [facility] SO2 (aisha) arterial 100(H) 90 - 95 % [facility] Total CO2, Art POC 28 22 - 32 mmol/L [facility] BE, art, POC 1.7 -2.0 - 2.0 mmol/L [facility] HCO3, Art POC 26 20 - 30 mmol/L [facility] Hct, POC 29.0(L) 38.9 - 50.3 % [facility] Total Hb, POC 9.8(L) 13.0 - 17.5 g/dL [facility] Blood 07/10/2023 3:36 PM CDT 07/10/2023 3:36 PM CDT us Keaton Lynn MD LAB POCT ORDERABLES - DE VICE Final Result [facility] [address] Department [place] [address] * Transfuse plasma (07/10/2023 3:10 PM CDT) Blood Herbie Mckinney MD PhD BLOOD TRANSFUSION ORDERA BLES Final Result Performing Organization Address City/[facility]/ZIP Co de Phone Number [facility] [address] [facility] [place] [address] * Transfuse plasma (07/10/2023 3:01 PM CDT) Blood Herbie Mckinney MD PhD BLOOD TRANSFUSION ORDERA BLES Final Result Performing Organization Address City/[facility] Co de Phone Number [facility] [address] [facility] [place] [address] * (ABNORMAL) POC Blood Gas and Chemistries, Arterial - (07/10/2023 3:00 PM CDT) pH, Art POC 7.33(L) 7.35 - 7.45 [facility] pCO2, Art POC 47(H) 35 - 45 mmHg [facility] pO2, Art POC 105 80 - 108 mmHg [facility] Na, POC 138 135 - 145 mmol/L [facility] K POC 4.4 3.3 - 4.9 mmol/L [facility] Comment: Interpretive Data This method is not able to assess for hemolysis, which may falsely increase potassium concentrations. If further testing is needed to evaluate this result, consider in-laboratory plasma potassium. Current Interpretive Data was last revised on 2022. Cl, POC 106 97 - 110 mmol/L [facility] Ionized Ca, POC 4.62 4.50 - 5.10 mg/dL [facility] Glucose, POC 191 70 - 199 mg/dL [facility] Lactate, POC 2.8(H) 0.0 - 2.0 mmol/L [facility] O2Hb, Art POC 97.2(H) 90.0 - 95.0 % [facility] Carboxhgb fract 1.9 0.0 - 2.9 % [facility] Methemoglobin 0.6 0.0 - 1.9 % [facility] HHb, POC 0.3 0.0 - 5.0 % [facility] SO2 (aisha) arterial 100(H) 90 - 95 % [facility] Total CO2, Art POC 26 22 - 32 mmol/L [facility] BE, art, POC -1.3 -2.0 - 2.0 mmol/L [facility] HCO3, Art POC 24 20 - 30 mmol/L [facility] Hct, POC 29.0(L) 38.9 - 50.3 % [facility] Total Hb, POC 9.8(L) 13.0 - 17.5 g/dL [facility] Blood 07/10/2023 3:00 PM CDT 07/10/2023 3:00 PM CDT Keaton Lynn MD LAB POCT ORDERABLES - DE VICE Final Result Performing Organization Address [facility] Co de Phone Number [facility] [address] Department [place] [address] * POC Activated Clotting Time, High Range (07/10/2023 2:59 PM CDT) ACT 116 87 - 138 sec [facility] Blood 07/10/2023 2:59 PM CDT 07/10/2023 2:59 PM CDT Keaton Lynn MD LAB BLOOD ORDERABLES Fin al Result Performing Organization Address City/[facility]/ZIP Co de Phone Number [facility] [address] Department [place] [address] * Transfuse platelets (07/10/2023 2:56 PM CDT) Blood Herbie Mckinney MD PhD BLOOD TRANSFUSION ORDERA BLES Final Result Performing Organization Address [facility]/ZIP Co de Phone Number [facility] [address] Department [place] [address] * Prepare plasma: 2 Units (07/10/2023 2:42 PM CDT) [facility] Product code [id number] [facility] Unit Number [id number] [facility] Product Blood Type APOS [facility] Dispense Status PRESUMED TRANSFUSED [facility] Product code [id number] [facility] Unit Number [id number] [facility] Product Blood Type APOS [facility] Dispense Status PRESUMED TRANSFUSED [facility] Blood (Blood, Venous) 07/10/2023 2:42 PM CDT Narrative [facility] - 07/10/2023 10:15 PM CDT Date required:-[id number] FFP # of Units:-2-Units Reasons:-Active major bleeding with coagulopathy} Herbie Mckinney MD PhD BLOOD BANK PRODUCT ORDER EMELYN Final Result [facility] [address] Department [place] [address] * (ABNORMAL) POC Blood Gas and Chemistries, Arterial - (07/10/2023 2:30 PM CDT) [facility] pH, Art POC 7.34(L) 7.35 - 7.45 [facility] pCO2, Art POC 46(H) 35 - 45 mmHg [facility] pO2, Art POC 352(H) 80 - 108 mmHg [facility] Na, POC 138 135 - 145 mmol/L [facility] K POC 4.8 3.3 - 4.9 mmol/L [facility] Comment: Interpretive Data This method is not able to assess for hemolysis, which may falsely increase potassium concentrations. If further testing is needed to evaluate this result, consider in-laboratory plasma potassium. Current Interpretive Data was last revised on 2022. Cl, POC 106 97 - 110 mmol/L [facility] Ionized Ca, POC 4.30(L) 4.50 - 5.10 mg/dL [facility] Glucose, POC 177 70 - 199 mg/dL [facility] Lactate, POC 3.2(H) 0.0 - 2.0 mmol/L [facility] O2Hb, Art POC 97.8(H) 90.0 - 95.0 % [facility] Carboxhgb fract 1.5 0.0 - 2.9 % [facility] Methemoglobin 0.6 0.0 - 1.9 % [facility] HHb, POC 0.0 0.0 - 5.0 % [facility] SO2 (aisha) arterial 100(H) 90 - 95 % [facility] Total CO2, Art POC 26 22 - 32 mmol/L [facility] BE, art, POC -1.1 -2.0 - 2.0 mmol/L [facility] HCO3, Art POC 24 20 - 30 mmol/L [facility] Hct, POC 29.0(L) 38.9 - 50.3 % [facility] Total Hb, POC 9.6(L) 13.0 - 17.5 g/dL [facility] Blood 07/10/2023 2:30 PM CDT 07/10/2023 2:30 PM CDT us Keaton Lynn MD LAB POCT ORDERABLES - DE VICE Final Result Performing Organization Address [facility]/ZIP Co de Phone Number [facility] [address] [place] [address] * (ABNORMAL) POC Activated Clotting Time, High Range (07/10/2023 2:29 PM CDT) ACT 821(H) 87 - 138 sec [facility] Blood 07/10/2023 2:29 PM CDT 07/10/2023 2:29 PM CDT Keaton Lynn MD LAB BLOOD ORDERABLES Fin al Result [facility] [address] [place] [address] * (ABNORMAL) POC Blood Gas and Chemistries, Arterial - (07/10/2023 1:58 PM CDT) pH, Art POC 7.45 7.35 - 7.45 [facility] pCO2, Art POC 44 35 - 45 mmHg [facility] pO2, Art POC 365(H) 80 - 108 mmHg [facility] Na, POC 141 135 - 145 mmol/L [facility] K POC 3.9 3.3 - 4.9 mmol/L [facility] Comment: Interpretive Data This method is not able to assess for hemolysis, which may falsely increase potassium concentrations. If further testing is needed to evaluate this result, consider in-laboratory plasma potassium. Current Interpretive Data was last revised on 2022. Cl, POC 107 97 - 110 mmol/L [facility] Ionized Ca, POC 3.98(L) 4.50 - 5.10 mg/dL [facility] Glucose, POC 177 70 - 199 mg/dL [facility] Lactate, POC 2.3(H) 0.0 - 2.0 mmol/L [facility] O2Hb, Art POC 98.2(H) 90.0 - 95.0 % [facility] Carboxhgb fract 1.1 0.0 - 2.9 % [facility] Methemoglobin 0.4 0.0 - 1.9 % [facility] HHb, POC 0.3 0.0 - 5.0 % [facility] SO2 (aisha) arterial 100(H) 90 - 95 % [facility] Total CO2, Art POC 32 22 - 32 mmol/L [facility] BE, art, POC 5.9(H) -2.0 - 2.0 mmol/L [facility] HCO3, Art POC 30 20 - 30 mmol/L [facility] Hct, POC 29.0(L) 38.9 - 50.3 % [facility] Total Hb, POC 9.6(L) 13.0 - 17.5 g/dL [facility] Blood 07/10/2023 1:58 PM CDT 07/10/2023 1:58 PM CDT us Keaton Lynn MD LAB POCT ORDERABLES - DE VICE Final Result Performing Organization Address City/[facility]/ZIP Co de Phone Number [facility] [address] [place] [address] * (ABNORMAL) POC Activated Clotting Time, High Range (07/10/2023 1:57 PM CDT) ACT 647(H) 87 - 138 sec [facility] Blood 07/10/2023 1:57 PM CDT 07/10/2023 1:57 PM CDT us Keaton Lynn MD LAB BLOOD ORDERABLES Fin al Result Performing Organization Address [facility]/ZIP Co de Phone Number [facility] [address] Department [place] [address] * (ABNORMAL) POC Blood Gas and Chemistries, Arterial - (07/10/2023 1:43 PM CDT) Pathologist [facility] pH, Art POC 7.40 7.35 - 7.45 [facility] pCO2, Art POC 39 35 - 45 mmHg [facility] pO2, Art POC 416(H) 80 - 108 mmHg [facility] Na, POC 137 135 - 145 mmol/L [facility] K POC 6.3(C) 3.3 - 4.9 mmol/L [facility] Comment: Interpretive Data This method is not able to assess for hemolysis, which may falsely increase potassium concentrations. If further testing is needed to evaluate this result, consider in-laboratory plasma potassium. Current Interpretive Data was last revised on 2022. Cl, POC 108 97 - 110 mmol/L [facility] Ionized Ca, POC 4.21(L) 4.50 - 5.10 mg/dL [facility] Glucose, POC 176 70 - 199 mg/dL [facility] Lactate, POC 2.3(H) 0.0 - 2.0 mmol/L [facility] O2Hb, Art POC 98.0(H) 90.0 - 95.0 % [facility] Carboxhgb fract 1.3 0.0 - 2.9 % [facility] Methemoglobin 0.6 0.0 - 1.9 % [facility] HHb, POC 0.2 0.0 - 5.0 % [facility] SO2 (aisha) arterial 100(H) 90 - 95 % [facility] Total CO2, Art POC 25 22 - 32 mmol/L [facility] BE, art, POC -0.5 -2.0 - 2.0 mmol/L [facility] HCO3, Art POC 25 20 - 30 mmol/L [facility] Hct, POC 29.0(L) 38.9 - 50.3 % [facility] Total Hb, POC 9.7(L) 13.0 - 17.5 g/dL [facility] Blood 07/10/2023 1:43 PM CDT 07/10/2023 1:43 PM CDT Keaton Lynn MD LAB POCT ORDERABLES - DE VICE Final Result Performing Organization Address [facility]/ZIP Co de Phone Number [facility] [address] [place] [address] * (ABNORMAL) POC Activated Clotting Time, High Range (07/10/2023 1:42 PM CDT) ACT 374(H) 87 - 138 sec [facility] Blood 07/10/2023 1:42 PM CDT 07/10/2023 1:42 PM CDT Keaton Lynn MD LAB BLOOD ORDERABLES Fin al Result [facility] [address] [place] [address] * (ABNORMAL) POC Blood Gas and Chemistries, Arterial - (07/10/2023 1:12 PM CDT) pH, Art POC 7.34(L) 7.35 - 7.45 [facility] pCO2, Art POC 46(H) 35 - 45 mmHg [facility] pO2, Art POC 482(H) 80 - 108 mmHg [facility] Na, POC 137 135 - 145 mmol/L [facility] K POC 4.1 3.3 - 4.9 mmol/L [facility] Comment: Interpretive Data This method is not able to assess for hemolysis, which may falsely increase potassium concentrations. If further testing is needed to evaluate this result, consider in-laboratory plasma potassium. Current Interpretive Data was last revised on 2022. Cl, POC 106 97 - 110 mmol/L [facility] Ionized Ca, POC 4.39(L) 4.50 - 5.10 mg/dL [facility] Glucose, POC 112 70 - 199 mg/dL [facility] Lactate, POC 1.1 0.0 - 2.0 mmol/L [facility] O2Hb, Art POC 98.6(H) 90.0 - 95.0 % [facility] Carboxhgb fract 1.2 0.0 - 2.9 % [facility] Methemoglobin 0.1 0.0 - 1.9 % [facility] HHb, POC 0.1 0.0 - 5.0 % [facility] SO2 (aisha) arterial 100(H) 90 - 95 % [facility] Total CO2, Art POC 26 22 - 32 mmol/L [facility] BE, art, POC -1.1 -2.0 - 2.0 mmol/L [facility] HCO3, Art POC 24 20 - 30 mmol/L [facility] Hct, POC 29.0(L) 38.9 - 50.3 % [facility] Total Hb, POC 9.7(L) 13.0 - 17.5 g/dL [facility] Blood 07/10/2023 1:12 PM CDT 07/10/2023 1:12 PM CDT us Keaton Lynn MD LAB POCT ORDERABLES - DE VICE Final Result [facility] [address] Department [place] [address] * (ABNORMAL) POC Activated Clotting Time, High Range (07/10/2023 1:11 PM CDT) ACT 650(H) 87 - 138 sec [facility] Blood 07/10/2023 1:11 PM CDT 07/10/2023 1:11 PM CDT us Keaton Lynn MD LAB BLOOD ORDERABLES Fin al Result [facility] [address] Department [place] [address] * (ABNORMAL) POC Blood Gas and Chemistries, Venous - (07/10/2023 12:52 PM CDT) Pathologist [facility] pH, John POC 7.31(L) 7.32 - 7.45 [facility] pCO2, john POC 57(H) 40 - 50 mmHg [facility] pO2, john POC 53(H) 35 - 42 mmHg [facility] Na, POC 138 135 - 145 mmol/L [facility] K POC 3.6 3.3 - 4.9 mmol/L [facility] Comment: Interpretive Data This method is not able to assess for hemolysis, which may falsely increase potassium concentrations. If further testing is needed to evaluate this result, consider in-laboratory plasma potassium. Current Interpretive Data was last revised on 2022. Cl, POC 104 97 - 110 mmol/L [facility] Ionized Ca, POC 4.24(L) 4.50 - 5.10 mg/dL [facility] Glucose, POC 110 70 - 199 mg/dL [facility] Lactate, POC 0.7 0.0 - 2.0 mmol/L [facility] O2Hb, John POC 83.6(L) 90.0 - 95.0 % [facility] Carboxhgb fract 1.7 0.0 - 2.9 % [facility] Methemoglobin 0.0 0.0 - 1.9 % [facility] HHb, POC 14.7(H) 0.0 - 5.0 % [facility] O2 Sat, John POC (Aisha) 85(H) 68 - 77 % [facility] Total CO2, john POC 30 22 - 32 mmol/L [facility] Base excess, john POC 1.6 mmol/L [facility] HCO3, John POC 26 20 - 30 mmol/L [facility] Hct, POC 31.0(L) 38.9 - 50.3 % [facility] Total Hb, POC 10.2(L) 13.0 - 17.5 g/dL [facility] Blood 07/10/2023 12:5 2 PM CDT 07/10/2023 12:52 PM CDT Keaton Lynn MD LAB POCT ORDERABLES - DE VICE Final Result Performing Organization Address [facility]/ZIP Co de Phone Number [facility] [address] Department [employer] [place] [address] * (ABNORMAL) POC Activated Clotting Time, High Range (07/10/2023 12:46 PM CDT) ACT 684(H) 87 - 138 sec [facility] Blood 07/10/2023 12:4 6 PM CDT 07/10/2023 12:46 PM CDT Keaton Lynn MD LAB BLOOD ORDERABLES Fin al Result Performing Organization Address [facility]/ZIP Co de Phone Number [facility] [address] [place] [address] * (ABNORMAL) POC Blood Gas and Chemistries, Arterial - (07/10/2023 12:46 PM CDT) pH, Art POC 7.34(L) 7.35 - 7.45 [facility] pCO2, Art POC 51(H) 35 - 45 mmHg [facility] pO2, Art POC 462(H) 80 - 108 mmHg [facility] Na, POC 136 135 - 145 mmol/L [facility] K POC 3.6 3.3 - 4.9 mmol/L [facility] Comment: Interpretive Data This method is not able to assess for hemolysis, which may falsely increase potassium concentrations. If further testing is needed to evaluate this result, consider in-laboratory plasma potassium. Current Interpretive Data was last revised on 2022. Cl, POC 106 97 - 110 mmol/L [facility] Ionized Ca, POC 4.07(L) 4.50 - 5.10 mg/dL [facility] Glucose, POC 110 70 - 199 mg/dL [facility] Lactate, POC 0.7 0.0 - 2.0 mmol/L [facility] O2Hb, Art POC 98.4(H) 90.0 - 95.0 % [facility] Carboxhgb fract 1.4 0.0 - 2.9 % [facility] Methemoglobin 0.3 0.0 - 1.9 % [facility] HHb, POC 0.0 0.0 - 5.0 % [facility] SO2 (aisha) arterial 100(H) 90 - 95 % [facility] Total CO2, Art POC 29 22 - 32 mmol/L [facility] BE, art, POC 1.2 -2.0 - 2.0 mmol/L [facility] HCO3, Art POC 26 20 - 30 mmol/L [facility] Hct, POC 30.0(L) 38.9 - 50.3 % [facility] Total Hb, POC 10.0(L) 13.0 - 17.5 g/dL [facility] Blood 07/10/2023 12:4 6 PM CDT 07/10/2023 12:46 PM CDT Keaton Lynn MD LAB POCT ORDERABLES - DE VICE Final Result [facility] [address] Department [place] [address] * (ABNORMAL) POC Activated Clotting Time, High Range (07/10/2023 12:31 PM CDT) ACT 649(H) 87 - 138 sec [facility] Blood 07/10/2023 12:3 1 PM CDT 07/10/2023 12:31 PM CDT Keaton Lynn MD LAB BLOOD ORDERABLES Fin al Result [facility] [address] Department [place] [address] * (ABNORMAL) POC Blood Gas and Chemistries, Arterial - (07/10/2023 12:09 PM CDT) pH, Art POC 7.35 7.35 - 7.45 [facility] pCO2, Art POC 48(H) 35 - 45 mmHg [facility] pO2, Art POC 158(H) 80 - 108 mmHg [facility] Na, POC 138 135 - 145 mmol/L [facility] K POC 3.8 3.3 - 4.9 mmol/L [facility] Comment: Interpretive Data This method is not able to assess for hemolysis, which may falsely increase potassium concentrations. If further testing is needed to evaluate this result, consider in-laboratory plasma potassium. Current Interpretive Data was last revised on 2022. Cl, POC 106 97 - 110 mmol/L [facility] Ionized Ca, POC 4.61 4.50 - 5.10 mg/dL [facility] Glucose, POC 99 70 - 199 mg/dL [facility] Lactate, POC 0.7 0.0 - 2.0 mmol/L [facility] O2Hb, Art POC 97.6(H) 90.0 - 95.0 % [facility] Carboxhgb fract 1.6 0.0 - 2.9 % [facility] Methemoglobin 0.7 0.0 - 1.9 % [facility] HHb, POC 0.2 0.0 - 5.0 % [facility] SO2 (aisha) arterial 100(H) 90 - 95 % [facility] Total CO2, Art POC 28 22 - 32 mmol/L [facility] BE, art, POC 0.4 -2.0 - 2.0 mmol/L [facility] HCO3, Art POC 25 20 - 30 mmol/L [facility] Hct, POC 37.0(L) 38.9 - 50.3 % [facility] Total Hb, POC 12.4(L) 13.0 - 17.5 g/dL [facility] Blood 07/10/2023 12:0 9 PM CDT 07/10/2023 12:09 PM CDT Keaton Lynn MD LAB POCT ORDERABLES - DE VICE Final Result Performing Organization Address [facility] Co de Phone Number [facility] [address] Department [employer] [place] [address] * POC Activated Clotting Time, High Range (07/10/2023 12:08 PM CDT) ACT 95 87 - 138 sec [facility] Blood 07/10/2023 12:0 8 PM CDT 07/10/2023 12:08 PM CDT Keaton Lynn MD LAB BLOOD ORDERABLES Fin al Result Performing Organization Address [facility] Co ak Phone Number [facility] [address] [place] [address] * Hemoglobin A1c (07/10/2023 10:12 AM CDT) Hgb A1C 5.2 4.0 - 5.6 % [facility] Estimated Average Glucose 103 mg/dL [facility] Comment: The ADA recommends reporting an estimated Average Glucose (eAG) with all Hemoglobin A1c results using the equation derived from a study of 507 normal and diabetic adults. ??Minority populations were underrepresented and children were not included. ?? (Diabetes Care 31:1295-1536, 2008). ??The eAG is not equivalent to a fasting glucose. Blood 07/10/2023 10:1 2 AM CDT 07/10/2023 10:12 AM CDT Danyelle Tillman NP LAB BLOOD ORDERABLES Final Resul t Performing Organization Address [facility] Co de Phone Number [facility] [address] [facility] [place] [address] * aPTT (07/10/2023 10:12 AM CDT) aPTT 33 28 - 38 sec [facility] Comment: Interpretive Data Therapeutic heparin range: 60.0 - 94.0 seconds. Based on correlation with therapeutic heparin activity range of 0.3-0.7 Units/mL. Current interpretive data was last revised on 2020. Blood 07/10/2023 10:1 2 AM CDT 07/10/2023 10:12 AM CDT Danyelle Tillman NP LAB BLOOD ORDERABLES Final Resul t Performing Organization Address [facility] Co de Phone Number [facility] [address] [place] [address] * Protime-INR (07/10/2023 10:12 AM CDT) PT 11.7 10.3 - 13.7 sec [facility] INR 1.03 0.90 - 1.20 [facility] Comment: Interpretive data Oral anticoagulant therapeutic [...] Resul t Performing Organization Address [facility] Co de Phone Number [facility] [address] [place] [place] [address] * Check Sample (07/10/2023 10:12 AM CDT) ABO Rh O Positive [facility] HCLL OTHER 07/10/2023 10:1 2 AM CDT 07/10/2023 10:22 AM CDT us Keaton Lynn MD LAB BLOOD ORDERABLES Fin al Result Performing Organization Address [facility]/ZIP Co de Phone Number [facility] [address] [facility] [place] [address] * Prepare platelets: 2 Units (07/10/2023 9:43 AM CDT) Product code [id number] [facility] Unit Number [id number] [facility] Product Blood Type APOS [facility] Dispense Status PRESUMED TRANSFUSED [facility] Blood (Blood, Venous) 07/10/2023 9:43 AM CDT Narrative [facility] - 07/10/2023 10:15 PM CDT Specify Procedure:->REPLACEMENT ASCENDING AORTA Are special requirements needed? (all products are leukoreduced)->No Date required:-[id number] PLT # of Units:-2-Units Reasons:-Hold for procedure (specify procedure)} us Danyelle Tillman NP BLOOD BANK PRODUCT ORDERABLES Fi nal Result Performing Organization Address [facility] Co de Phone Number [facility] [address] [facility] [place] [address] * Prepare RBC: 4 Units (07/10/2023 9:43 AM CDT) Product code [id number] [facility] Unit Number [id number] 6-0 [facility] Product Blood Type OPOS [facility] Dispense Status RETURNED [facility] Product code [id number] [facility] Unit Number [id number] 7-* [facility] Product Blood Type OPOS [facility] Dispense Status RETURNED [facility] Product code [id number] [facility] Unit Number [id number] 4-I [facility] Product Blood Type OPOS [facility] Dispense Status RETURNED [facility] Product [facility] [id number] [facility] Unit Number [id number] 5-2 [facility] Product Blood Type OPOS [facility] Dispense Status RETURNED [facility] Blood 07/10/2023 9:43 AM CDT Narrative [facility] - 07/11/2023 1:49 AM CDT Specify Procedure:->REPLACEMENT ASCENDING AORTA Are special requirements needed? (All products are leukoreduced and CMV- safe)- >No Date required:-20230710 LRRBC # of [id number] Reasons:-Hold for procedure (specify procedure)} Danyelle Tillman NP BLOOD BANK PRODUCT ORDERABLES nal Result [facility] [address] Department [place] [address] documented in this encounter Visit Diagnoses Diagnosis [...] Call MD for each episode of hypoglycemia. MECHANICAL ENGINEERING SPECIALIST STATES GLUTOSE-15 CONTAINS GLUCOSE 40% W/W (50% [...] Solano RN) 0940 (Given - Provider: Nano Arango RN) 1033 [...] Provider: Nano Arango, MAHIN)2104 (Given - Provider: Dancia Sanchez, MAHIN) 0519 (Given - Provider: Danica [...] Call MD for each episode of hypoglycemia. MECHANICAL ENGINEERING SPECIALIST STATES GLUTOSE-15 CONTAINS GLUCOSE 40% W/W (50% [...] RN - Comment: Completed 07. Administered by Toolmaker Grade Three.) ondansetron (ZOFRAN) injection 4 mg 4 mg, [...] Call MD for each episode of hypoglycemia. MECHANICAL ENGINEERING SPECIALIST STATES GLUTOSE-15 CONTAINS GLUCOSE 40% W/W (50% [...] 07/14/2023 documented in this encounter Care Teams Vegetable Ii Farmworker Relationship Specialty Start Date End Date Radha Lozada MD [address] [place] [address] PCP - General Family Medicine 06/25/23 04/29/24 Kali Reddy MD Consulting Physician Cardiology 05/19/19 Keaton Lynn MD [address] [facility] [address] [place] [address] Consulting Physician Cardiothoracic Surgery 06/07/23 documented as of this encounter
--- OUTSIDE RECORDS SUMMARY | 2024-09-30 02:53 | XMS_ITS | Encounter Summary ---
Author Organization [facility] Address [address] [place] [address] Care Team Providers Care Commissioned Sales Associate Name Role Phone Noemi Willis NP Primary Care Provider [phone] Kali Reddy MD Unavailable [phone] Reason for Referral * MRI/CAT/PET Scan (Routine) - Closed Specialty Diagnoses / Procedures Referred By Praveenac t Referred To Contact Radiology Diagnoses Ascending aortic aneurysm (HCC) Procedures CTA Chest W Contrast Kali Reddy MD Phone: tel: fax: Referral ID Status Reason Start Date Expiration Date Visits Re quested Visits Authorized [id number] Closed 05/24/2017 11/20/2017 1 1 Reason for Visit * MRI/CAT/PET Scan (Routine) - Closed Specialty Diagnoses / Procedures Referred By Bette velazquez Referred To Contact Radiology Diagnoses Ascending aortic aneurysm (HCC) Procedures CTA Chest W Contrast Kali Reddy MD Phone: tel: fax: Referral ID Status Reason Start Date Expiration Date Visits Re quested Visits Authorized [id number] Closed 05/24/2017 11/20/2017 1 1 Encounter Details Date Type Department Care Team (Latest Contact Info) Description 05/26/2020 8:08 AM CDT - 05/26/2020 11:59 PM CDT Hospital Encounter [facility] - Imaging [address] [place] [phone] Kali Reddy MD [address] [facility] [address] [place] [address] Ascending aortic aneurysm (CMS/HCC) Discharge Disposition: Discharge to home or self care Social History Tobacco Use Types Packs/Day Years Used Date Smoking Tobacco: Never Smokeless Tobacco: Never Alcohol Use Standard Drinks/Week Comments Yes 0 (1 standard drink = 0.6 oz pur e alcohol) Socially Sex and Gender Information Value Date Recorded Sex Assigned at Not on file Legal 

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
--- OUTSIDE RECORDS SUMMARY | 2024-09-30 02:53 | XMS_ITS | Encounter Summary ---
Author Organization [facility] Address [address] [facility] [address] [address] [place] [address] Care Team Providers Care Accountant Systems Name Role Phone Noemi Willis NP Primary Care Provider [phone] Kali Reddy MD Unavailable Encounter Details Date Type Department Care Team (Late st Contact Info) Description 06/09/2022 Telephone [facility] Cardiology [address] [facility] [address] [place] [address] Kali Reddy MD [facility] [facility] [address] [place] [address] Social History Tobacco Use Types Packs/Day Years Used Date Smoking Tobacco: Never Smokeless Tobacco: Never Alcohol Use Standard Drinks/Week Comments Yes 0 (1 standard drink = 0.6 oz pur e alcohol) Socially Sex and Gender Information Value Date Recorded Sex Assigned at Not on file 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
--- OUTSIDE RECORDS SUMMARY | 2024-09-30 02:53 | XMS_ITS | Encounter Summary ---
Author Organization [facility] Facility Care Team Providers Care Heat Treatment Technician Name Role Phone Emelina Khan MD Primary Care Provider [phone] Encounter Details Date Type Department Care Team (Latest Contact Info) Description 05/24/2016 9:07 AM CDT - 05/24/2016 11:59 PM CDT Hospital Encounter [facility] Kali Reddy MD [address] [place] [address] Thoracic aortic aneurysm without rupture (CMS/HCC) Social History Tobacco Use Types Packs/Day Years Used Date Smoking Tobacco: Never Assessed Sex and Gender Information Value Date Recorded Sex Assigned at Not on file 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 ??Two-dimensional uehl-ps-yjengm as well as black blood imaging were [...] KALI REDDY Requesting Fax: ?? Requesting ID: [id number] Attending Fax: ?? Attending ID: ?? [id number] Completed Time: ?? 05/24/2016 10:50 AM Dictated [...] as well as sagittal oblique projections. Two-dimensional lamk-ky-nnaefr as well as black blood imaging were [...] REDDY Requesting: KALI REDDY Requesting Requesting ID: [id number] Attending Attending ID: [id number] Completed Time: 05/24/2016 10:50 AM Dictated Time: [...] (HCC) documented in this encounter Care Teams Heat Treatment Technician Relationship Specialty Start Date End Date Emelina Khan MD [address] [address] PCP - General 1/5/16 2 documented as of this encounter
--- OUTSIDE RECORDS SUMMARY | 2024-09-30 02:53 | XMS_ITS | Encounter Summary ---
Author Organization [facility] Address [address] [place] [address] Care Team Providers Care Senior Clinical Data Coordinator Name Role Phone Noemi Willis NP Primary Care Provider Kali Reddy MD Unavailable [phone] Keaton Lynn MD Unavailable Encounter Details Date Type Department Care Team (Late st Contact Info) Description 06/22/2023 Telephone [facility] Cardiology [address] [place] [address] Nicolas Golden MD [address] [facility] [address] [place] [address] Social History Tobacco Use Types Packs/Day Years Used Date Smoking Tobacco: Never Smokeless Tobacco: Never Alcohol Use Standard Drinks/Week Comments Yes 0 (1 standard drink = 0.6 oz pur e alcohol) Socially Sex and Gender Information Value Date Recorded Sex Assigned at Not on file 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 Jackie verbalized understanding of prep instructions. Labs on file from 06/21. NPR [id number] /[facility]. Marked on schedules and snapboard, scheduled with CCL. * Telephone Encounter - Kat Kim - 06/22/2023 7:56 AM CDT Per GT, can probably squeeze in on ----- Message from Hernan Helton RN sent at 06/21/2023 3:21 PM CDT ----- Regarding: RE: Dr.Josh Lynn pre-op needs [facility] prior to aneurysm repair Thanks! ----- Message ----- From: Nicolas Golden MD Sent: 06/21/2023 3:03 PM CDT To: Hernan Helton RN; # Subject: RE: Dr.Josh Lynn pre-op needs [facility] prior to # Can probably squeeze [...] Date First Orde red Date CASE REQUEST GROUP FITNESS ASSISTANT DEPARTMENT HEAD 1 06/22/2023 documented in this encounter Care Teams Senior Clinical Data Coordinator Relationship Specialty Start Date End Date Noemi Willis NP PCP - General 06/19/18 06/24/23 Kali Reddy MD Consulting Physician Cardiology 05/19/19 Keaton Lynn MD [address] [address] [place] [address] Consulting Physician Cardiothoracic Surgery 06/07/23 documented as of this encounter
--- OUTSIDE RECORDS SUMMARY | 2024-09-30 02:58 | XMS_ITS | Clinical Summary ---
Author Organization Unknown Care Team Providers Care Stenographer Secretary Name Role Phone MATTHEW PHILLIPS MD, YOLETTE Unavailable Unavailable LOU RN, SABINO Unavailable Unavailalla ROBERTSON LPN, ALANA Unavailable Unavailable MAYANK PT, ROBER Unavailable Unavailable JUNIE CANDY MAKER HELPER, JOSE Unavailable Unavailabl e JUAN J OT, CAL JANSEN Unavailable LEYDA Briceño Unavailable Unavailable Payers Payer Name Policy Type Policy Number Effective Date Expira tion Date MEDICARE.[facility] [id number] Problems Condition Name Condition Details Condition Category [...] 830 00:00: 00 07-16 00:00 :00 No [id number] Per instruc tions Per instructio ns (route: oral) Med Classific ation: Cardiovas cular Therapy Agents acetaminoph en 325 mg tablet 2022-10 00:00: 00 Yes [id number] PAIN 2 tablet EVERY 6 HOURS 2 tablet EVERY 6 HOURS (route: oral) Med Classific ation: Analgesic , Anti-infl ammatory or Antipyret ic aspirin 81 mg tablet,tanvi yed release 2022-10 00:00: 00 Yes [id number] HEART 1 tablet DAILY 1 tablet DAILY (route: oral) Med Classific ation: Hematolog ical Agents atorvastati n 40 mg tablet 2022-10 00:00: 00 Yes [id number] CHOLESTEROL 1 tablet DAILY 1 tablet DAILY (route: oral) Med Classific ation: Cardiovas cular Therapy Agents furosemide 20 mg tablet 2022-10 00:00: 00 08-01 00:00 :00 No [id number] DIURETIC 1 tablet DAILY 1 tablet DAILY (route: oral) Med Classific ation: Cardiovas cular Therapy Agents hydrocodone 5 mg-acetamin ophen 325 mg tablet 2022-10 00:00: 00 08-01 00:00 :00 No [id number] PAIN 1 tablet EVERY 4 HOURS 1 tablet EVERY 4 HOURS (route: oral) Med Classific ation: Analgesic , Anti-infl ammatory or Antipyret ic metoprolol tartrate 25 mg tablet 2022-10 0 00:00: 00 07-17 23:59 :00 No [id number] BLOOD PRESSURE .5 tablet 2 TIMES DAILY .5 tablet 2 TIMES DAILY (route: oral) Med Classific ation: Cardiovas cular Therapy Agents potassium chloride ER 10 mEq capsule,ext ended release 2022-10 00:00: 00 08-01 23:59 :00 No [id number] SUPPLEMENT 1 capsule DAILY 1 capsule DAILY (route: oral) Med Classific ation: Electroly te Balance-N utritiona l Products metoprolol tartrate 25 mg tablet 2022-10 00:00: 00 Yes [id number] BLOOD PRESSURE 1 tablet 2 TIMES DAILY 1 tablet 2 TIMES DAILY (route: oral) Med Classific ation: Cardiovas cular Therapy Agents pantoprazol e 40 mg tablet,tanvi yed release 2022-10 00:00: 00 Yes [id number] STOMACH ACID 1 tablet 2 TIMES DAILY [...] [place]. RN TO OBSERVE AND ASSESS, WIRE ANNEALER TO OBSERVE FOR RISK FOR FALLS AND [...] [place]. RN TO OBSERVE AND ASSESS, WIRE ANNEALER TO OBSERVE FOR RISK FOR FALLS AND [...] TO AVOID HOSPITALIZATION.] Future Scheduled Test HOME [facility] MAY ACCEPT ORDERS FROM THE [...] DETERIORATION, COMPLICATIONS, OR INFECTION TO RN CLINICAL ELECTRONIC TECHNOLOGIST AND/OR PHYSICIAN. [code = HOME HEALTH AGENCY [...] DETERIORATION, COMPLICATIONS, OR INFECTION TO RN CLINICAL ELECTRONIC TECHNOLOGIST AND/OR PHYSICIAN.] Goal 2023-08-01 Patient Goal - [...] 2023-08-20 00:00:00 Outpatient NEW ADMISSION SABINO [facility] [id number] 2023-08-20 00:00:00 DISCHARGE TO HOME OR SELF CARE INDEPENDEN T IN THE COMM[facility] HH OR [facility]- GOALS MET 96.88
[2024-09-30 04:46] LABS: Basophils Percent Auto 0.4 % (0.2-1.2); Eosinophils Absolute Auto 0.1 K/mm3 (0-0.3); Eosinophils Percent Auto 1.2 % (0-4.4); Hematocrit 33.3 % (42.0-52.0); Hemoglobin 11.2 g/dL (14.0-18.0); Immature Granulocyte Absolute 0.04 K/mm3 (0.00-0.031); Immature Granulocyte Percent A 0.5 % (0-0.5); Lymphocytes Absolute Auto 1.44 K/mm3 (0.9-3.2); Lymphocytes Percent Auto 19.8 % (18.3-44.2); Mean Corpuscular HGB Conc 33.6 g/dl (32-36); Mean Corpuscular Hemoglobin 31.5 pg (26-34); Mean Corpuscular Volume 93.8 fl (80-100); Monocytes Absolute Auto 0.7 K/mm3 (0.1-0.6); Monocytes Percent Auto 9.5 % (2.6-8.5); Neutrophils Percent Auto 68.6 % (45.5-73.1); Platelet Count Result 132 k/mm3 (150-375); Red Blood Count 3.55 M/mm3 (4.6-6.20); Red Cell Distribution Width 13.5 % (11.5-14.5); White Blood Count 7.3 K/mm3 (4.5-10.0)
[2024-09-30 04:55] LABS: Alanine Aminotransferase 25 U/L (6-50); Alkaline Phosphatase 61 U/L (38-126); Anion Gap 2 mmol/L (4-12); Aspartate Amino Transferase 28 U/L (17-59); Bilirubin,Total 0.8 mg/dL (0.2-1.3); Blood Urea Nitrogen 13 mg/dL (9-20); Calcium 8.1 mg/dL (8.4-10.2); Carbon Dioxide 28 mmol/L (22-30); Chloride 108 mmol/L (98-107); Estimated CRCL calculation 84 ml/min; Estimated Glomerular Filt Rate > 60; Glucose 106 mg/dL (65-110); Potassium 3.6 mmol/L (3.4-5.0); Sodium 138 mmol/L (137-145)
--- NOTE | 2024-09-30 09:02 | ECG_ITS ---
Test Date: 2024-09-30 10:38:43 Measurements Intervals [place] Rate: 75 P: 24 NC: 237 QRS: -45 QRSD: 107 T: 46 QT: 412 QTc: 462 Interpretive Statements SINUS RHYTHM WITH SINUS ARRHYTHMIA WITH FIRST DEGREE AV BLOCK LEFT ANTERIOR FASCICULAR BLOCK [QRS AXIS <= -45, QR IN I, RS IN II] NONSPECIFIC ST AND T WAVE ABNORMALITY Compared to ECG 09/25/2024 17:03:34 First degree AV block now present Electronically Signed On 09-30-2024 16:19:32 HYDROELECTRIC MACHINERY MECHANIC HELPER by Sumaya Rios M.D.
[2024-09-30] MEDS: AMOXICILLIN/CLAVULANATE K 875-125 MG TAB 1 TABLET PO ×2 (09:53→21:32)
[2024-09-30] MEDS: ASPIRIN 81 MG ENTERIC TABLET PO (09:54)
[2024-09-30] MEDS: SULFAMETHOXAZOLE/TRIMETHOPRIM 800/160 MG DS TABLET 2 TAB PO ×2 (09:54→21:32)
[2024-09-30] MEDS: METOPROLOL TARTRATE 25 MG TABLET PO ×2 (09:54→21:32)
[2024-09-30] MEDS: PANTOPRAZOLE 40 MG TABLET PO (09:54)
--- NOTE | 2024-09-30 11:51 | PM.IMPN ---
Progress Note: A&P Assessment and Plan (1) Bacteremia: Code(s): R78.81 - Bacteremia Status: Acute Assessment and Plan: - lactic acid: 1.7 - s/p 2L NS bolus - suspected source: pneumonia - Antibiotics: Vanc started on 09/27, transitioned to oral bactrim per culture sensitivities on 09/29 - blood cultures drawn on 09/25: final - MSSA - repeat blood cultures 48 hours from antibiotic initiation on 09/29: NGTD - echo: LVEF 60-65% with grade II diastolic dysfunction and mild pulmonary hypertension. bioprosthetic aortic valve, if endocarditis suspected obtain a KELLEY. - UA unremarkable - CXR 09/25: Airspace opacities in right lower lung zone and left mid and lower lung zones, consistent with atelectasis versus pneumonia. Cardiomegaly. 09/30: KELLEY scheduled for today at 1530. Repeat blood cultures showing NGTD. (2) Pneumonia: Code(s): J18.9 - Pneumonia, unspecified organism Status: Acute Assessment and Plan: CXR 09/25: Airspace opacities in right lower lung zone and left mid and lower lung zones, consistent with atelectasis versus pneumonia. Cardiomegaly. - Antibiotics: azithromycin ceftriaxone started on 09/26, transitioned to oral azithromycin and Augmentin on 09/29 - Viral PCR: negative for Flu/COVID/RSV - Sputum culture ordered - no supplemental O2 requirement - Monitor vital signs, I&Os, neuro status and patient is a fall risk - Follow WBC, serum electrolytes, temperature curves and cultures (3) HTN (hypertension): Code(s): I10 - Essential (primary) hypertension Status: Acute Assessment and Plan: Chronic, currently holding home medications as patient was hypotensive on admission - Continue Metoprolol 25 mg BID - Holding Losartan 25 mg daily as patient was hypotensive, currently stable despite being off losartan - Monitor and resume as appropriate (4) MONIKA (obstructive sleep apnea): Code(s): G47.33 - Obstructive sleep apnea (adult) (pediatric) Status: Acute Assessment and Plan: Continue CPAP use Time Spent With Patient Time with patient: 25 - 35 minutes Subjective Date/time seen: 09/30/24 11:51 Interval history: 78 year old male with past medical history of hypertension, hyperlipidemia, GERD, MONIKA, and aortic aneurysm presents to the hospital after being called back for positive blood cultures on his 09/25 visit. On 09/25 patient reported to the ED for weakness,increased lethargy, and shortness of breath diagnosed with pneumonia and discharged on antibiotics. Patient is pleasant lying in bed with family at bedside. He has no complaints at this time denying chest pain, shortness breast, palpitations, nausea/ vomiting, abdominal pain. He is to obtain a KELLEY today. Review of Systems Review of Systems: All systems reviewed & are unremarkable except as noted in HPI and below Exam Narrative: AF HR 78 RR 18 SpO2 97 BP 112/78 General: male in no acute respiratory distress who is nontoxic appearing, lying semi recumbent in bed. HEENT: Normocephalic. Atraumatic. Extraocular movement intact. Sclera clear and anicteric. No facial asymmetry. Chest: Lungs are clear to auscultation bilaterally. No wheezes or crackles. CV: Heart was regular rate and rhythm. S1/S2. No murmurs, gallops, or rubs. Abd: Abdomen was soft. Nontender. Nondistended. Positive bowel sounds. No organomegaly or masses. Ext: No clubbing, cyanosis, or edema. 2+ DP pulses bilaterally. Neuro: Speech is clear. Objective Data Vital Signs Vital Signs: Vital Signs - 24 hr 09/29/24 12:00 09/29/24 12:00 09/29/24 12:00 Temperature 99.2 F Pulse Rate 71 Respiratory Rate Blood Pressure 129/71 Pulse Oximetry 97 97 Oxygen Delivery Room Air 09/29/24 12:00 09/29/24 14:00 09/29/24 15:50 Temperature 98.2 F Pulse Rate 84 91 84 Respiratory Rate 20 Blood Pressure 119/77 Pulse Oximetry 97 Oxygen Delivery 09/29/24 16:00 09/29/24 16:00 09/29/24 18:00 Temperature Pulse Rate 89 89 Respiratory Rate Blood Pressure Pulse Oximetry Oxygen Delivery Room Air 09/29/24 20:00 09/29/24 20:00 09/29/24 20:00 Temperature 98.9 F Pulse Rate 18 L 85 Respiratory Rate 78 H Blood Pressure 100/54 L Pulse Oximetry 95 Oxygen Delivery Room Air 09/29/24 20:42 09/29/24 22:00 09/29/24 23:20 Temperature Pulse Rate 86 65 79 Respiratory Rate Blood Pressure Pulse Oximetry 97 Oxygen Delivery 09/29/24 23:20 09/30/24 00:00 09/30/24 00:00 Temperature 98.8 F Pulse Rate 79 Respiratory Rate 16 Blood Pressure 115/74 Pulse Oximetry 98 97 Oxygen Delivery Room Air Room Air 09/30/24 00:00 09/30/24 02:00 09/30/24 04:00 Temperature Pulse Rate 75 59 L Respiratory Rate Blood Pressure Pulse Oximetry Oxygen Delivery Room Air 09/30/24 04:00 09/30/24 04:00 09/30/24 06:00 Temperature 98.3 F Pulse Rate 73 73 63 Respiratory Rate 18 Blood Pressure 130/70 Pulse Oximetry 98 Oxygen Delivery 09/30/24 07:53 09/30/24 09:54 09/30/24 11:27 Temperature 99.0 F 98.4 F Pulse Rate 97 78 78 Respiratory Rate 20 18 Blood Pressure 140/90 112/78 Pulse Oximetry 99 97 Oxygen Delivery Intake/Output Intake/Output: Intake & Output 09/27/24 09/28/24 09/29/24 09/30/24 23:59 23:59 23:59 23:59 Intake Total 2820 2920 1215 375 Output Total 1300 2350 2125 850 Balance 1520 870 -150 -482 Meds/Results Medications: Active Medications Generic Name Dose Route Start Last Admin Trade Name Freq PRN Reason Stop Dose Admin Acetaminophen 1,000 mg 09/27/24 04:21 09/28/24 12:53 Acetaminophen 500 Mg Tablet PO 1,000 mg Q6H PRN Administration pain Hydrocodone Bitart/Acetaminophen 1 tab 09/26/24 18:26 Hydrocodone/Acetaminophen (*Crx) 5-325 Mg Tablet PO Q4H PRN Pain Rated 4-6 Amoxicillin/Clavulanate Potassium 1 tablet 09/30/24 09:00 09/30/24 09:53 Amoxicillin/Clavulanate K 875-125 Mg Tab PO 09/30/24 21:01 1 tablet Q12HR GINNA Administration Aspirin 81 mg 09/27/24 09:00 09/30/24 09:54 Aspirin 81 Mg Enteric Tablet PO 81 mg DAILY GINNA Administration Metoprolol Tartrate 25 mg 09/27/24 21:00 09/30/24 09:54 Metoprolol Tartrate 25 Mg Tablet PO 25 mg Q12HR GINNA Administration Morphine Sulfate 2 mg 09/26/24 18:26 Morphine Sulfate (*Crx) 2 Mg/Ml Inj IV PUSH Q2H PRN Pain Rated 7-10 Pantoprazole Sodium 40 mg 09/27/24 09:00 09/30/24 09:54 Pantoprazole 40 Mg Tablet PO 40 mg QAM GINNA Administration Trimethoprim/Sulfamethoxazole 2 tab 09/29/24 20:00 09/30/24 09:54 Sulfamethoxazole/Trimethoprim 800/160 Mg Ds Tablet PO 2 tab Q12HR GINNA Administration Labs Labs: Laboratory Results - last 24 hr 09/30/24 04:29 WBC 7.3 RBC 3.55 L Hgb 11.2 L Hct 33.3 L MCV 93.8 MCH 31.5 MCHC 33.6 RDW 13.5 Plt Count 132 L MPV 9.0 Immature Gran % (Auto) 0.5 Neut % (Auto) 68.6 Lymph % (Auto) 19.8 [place] % (Auto) 9.5 H Eos % (Auto) 1.2 Baso % (Auto) 0.4 Lymph # (Auto) 1.44 [place] # (Auto) 0.7 H Eos # (Auto) 0.1 Baso # (Auto) 0.0 Abs Immat Gran (auto) 0.04 H Absolute Neuts (auto) 5.0 Absolute Nucleated RBC 0.000 Nucleated RBC % 0.0 Sodium 138 Potassium 3.6 Chloride 108 H Carbon Dioxide 28 Anion Gap 2 L BUN 13 Creatinine 0.80 Estim Creat Clear Calc 84 Estimated GFR > 60 Glucose 106 Calcium 8.1 L Total Bilirubin 0.8 AST 28 ALT 25 Alkaline Phosphatase 61 Total Protein 6.0 L Albumin 3.0 L Quality VTE Prophylaxis VTE prophylaxis: mechanical ordered
--- NOTE | 2024-09-30 13:55 | WPDANESEPPF ---
Anes - Initial Pre Proc Eval Procedure: Operation Date: 09/30/24 14:30 Proposed Procedures p Trans Esophageal Echo - Sumaya Rios MD Date/Time: 09/30/24 13:55 Surgeon: Joceline Woodard PA-C Pre Op Diagnosis: Pneumonia, Bacteremia Patient Data Age: 78 Gender: M Height: 1.83 m Weight: 108.6 kg Last Vital Signs Temp 36.9 C 09/30/24 11:27 Pulse 78 09/30/24 11:27 Resp 18 09/30/24 11:27 BP 112/78 09/30/24 11:27 Pulse Ox 97 09/30/24 11:27 O2 Del Method Room Air 09/30/24 04:00 O2 Flow Rate 2 09/27/24 09:31 FiO2 28 09/27/24 09:31 Allergies Allergy/AdvReac Type Severity Reaction Status Date / Time No Known Allergies Allergy Verified 09/26/24 22:15 Home Medications ?Medication ?Instructions ?Recorded ?Confirmed ?Type atorvastatin 40 mg tablet 40 mg PO DAILY 10/13/20 09/26/24 History aspirin 81 mg tablet,delayed 81 mg PO DAILY 08/07/23 09/26/24 History release metoprolol tartrate 25 mg tablet 25 mg PO BID 08/07/23 09/26/24 History pantoprazole 40 mg tablet,delayed 40 mg PO QAM #90 tabs 04/29/24 09/26/24 Rx release acetaminophen 500 mg capsule 1,000 mg (2 x 500 mg) PO Q6H PRN 09/25/24 09/26/24 Rx pain #30 caps azithromycin 250 mg tablet 250 mg PO DAILY 5 days #5 tabs 09/25/24 09/26/24 Rx losartan 25 mg tablet 25 mg PO DAILY 09/26/24 09/26/24 History Laboratory Tests 09/30/24 04:29 WBC 7.3 K/mm3 (4.5-10.0) RBC 3.55 L M/mm3 (4.6-6.20) Hgb 11.2 L g/dL (14.0-18.0) Hct 33.3 L % (42.0-52.0) MCV 93.8 fl (80-100) MCH 31.5 pg (26-34) MCHC 33.6 g/dl (32-36) RDW 13.5 % (11.5-14.5) Plt Count 132 L k/mm3 (150-375) MPV 9.0 fl (7.4-10.4) Immature Gran % (Auto) 0.5 % (0-0.5) Neut % (Auto) 68.6 % (45.5-73.1) Lymph % (Auto) 19.8 % (18.3-44.2) [place] % (Auto) 9.5 H % (2.6-8.5) Eos % (Auto) 1.2 % (0-4.4) Baso % (Auto) 0.4 % (0.2-1.2) Lymph # (Auto) 1.44 K/mm3 (0.9-3.2) [place] # (Auto) 0.7 H K/mm3 (0.1-0.6) Eos # (Auto) 0.1 K/mm3 (0-0.3) Baso # (Auto) 0.0 K/mm3 (0.0-0.1) Abs Immat Gran (auto) 0.04 H K/mm3 (0.00-0.031) Absolute Neuts (auto) 5.0 K/mm3 (1.3-6.7) Absolute Nucleated RBC 0.000 K/mm3 (0.0-0.012) Nucleated RBC % 0.0 % (0.0-0.2) Sodium 138 mmol/L (137-145) Potassium 3.6 mmol/L (3.4-5.0) Chloride 108 H mmol/L (98-107) Carbon Dioxide 28 mmol/L (22-30) Anion Gap 2 L mmol/L (4-12) BUN 13 mg/dL (9-20) Creatinine 0.80 mg/dL (0.7-1.3) Estim Creat Clear Calc 84 ml/min Estimated GFR > 60 (59 - ) Glucose 106 mg/dL (65-110) Calcium 8.1 L mg/dL (8.4-10.2) Total Bilirubin 0.8 mg/dL (0.2-1.3) AST 28 U/L (17-59) ALT 25 U/L (6-50) Alkaline Phosphatase 61 U/L (38-126) Total Protein 6.0 L g/dL (6.3-8.2) Albumin 3.0 L g/dL (3.5-5.1) Patient hx anesthesia problems: none Family hx anesthesia problems: none Results Review: All pre-operative results and documents have been reviewed as part of the pre-operative evaluation. [facility] Past Medical History Medical History Anemia GERD (gastroesophageal reflux disease) BMI 33.0-33.9,adult Encounter to establish care Elevated glucose Arthritis History of bleeding ulcers Hx of aortic aneurysm MONIKA (obstructive sleep apnea) Obesity HTN (hypertension) HLD (hyperlipidemia) Surgical History Surgical History History of open heart surgery Family History Family History Sibling Patient's brother is in good health Father Heart disease Mother Hypertension Depression Social History Social History Smoking status: Never smoker Alcohol intake: current Drinks per week: 1 Alcohol use details: 2-3 Beers a month Substance use: never Do You Feel Safe in your Home?: Yes Lack of Transportation: No Lack of Food: Never True Current Housing: I Have Housing Concerned About Future Housing: No Difficulty Paying Gas/Electric Bills: No Difficulty Paying for Meds: No Currently Unemployed: No Education: Decline to Answer Difficulty w/ Childcare or Family Care: No Spiritual care concerns: Yes (yarsanism) Anes - Eval Final PreProcedure Day of Procedure 09/30/24 13:55 Patient weight: obese Heart: regular rate and rhythm Lungs: clear to auscultation Airway: Mallampati scale class II Neurological: alert and oriented Last oral intake: >/= 8 hours ASA classification: IV Emergent: no Anesthetic plan: proceed Anesthesia type and monitoring: general GIVS and standard monitoring Results Review: All pre-operative results and documents have been reviewed as part of the pre-operative evaluation. Informed Consent: The patient's anesthetic plan and its attendant risks and benefits were discussed with the patient/family/POA. Questions were solicited and answers provided to the satisfaction of the patient/family/POA.
--- NOTE | 2024-09-30 15:44 | PM.CNCAR ---
Assessment and Plan Assessment and plan (1) Bacteremia: Code(s): R78.81 - Bacteremia Status: Acute Assessment and Plan: KELLEY done this afternoon, negative for infective endocarditis. Cardiology will sign off. Patient to follow up with his primary quality technician, Dr. Reddy. Recommendations and plan discussed with Hospitalist. History of Present Illness History of Present Illness Consult date/time: 09/30/24 15:44 Requesting physician: Joceline Woodard PA-C Consult reason: Other (KELLEY) Reason For Visit: Pneumonia, Bacteremia Narrative: We are consulted for KELLEY for MSSA bacteremia. This is a 78 year old male with thoracic aortic aneurysm s/p surgical aortic root replacement, s/p BP-SAVR, atrial fibrillation s/p LAAO, hyperlipidemia who is admitted with MSSA bacteremia, suspected source pneumonia. TTE did not show evidence of vegetations, however, given his bioprosthetic valve and MSSA bacteremia we are consulted for KELLEY. Review of Systems Review of Systems: All systems reviewed & are unremarkable except as noted in HPI and below (HPI) [facility] Past Medical History Medical History Anemia GERD (gastroesophageal reflux disease) BMI 33.0-33.9,adult Encounter to establish care Elevated glucose Arthritis History of bleeding ulcers Hx of aortic aneurysm MONIKA (obstructive sleep apnea) Obesity HTN (hypertension) HLD (hyperlipidemia) Surgical History Surgical History History of open heart surgery Family History Family History Sibling Patient's brother is in good health Father Heart disease Mother Hypertension Depression Social History Social History Smoking status: Never smoker Alcohol intake: current Drinks per week: 1 Alcohol use details: 2-3 Beers a month Substance use: never Do You Feel Safe in your Home?: Yes Lack of Transportation: No Lack of Food: Never True Current Housing: I Have Housing Concerned About Future Housing: No Difficulty Paying Gas/Electric Bills: No Difficulty Paying for Meds: No Currently Unemployed: No Education: Decline to Answer Difficulty w/ Childcare or Family Care: No Spiritual care concerns: Yes (zoroastrianism) Meds Home Medications and Allergies Home Medications ?Medication ?Instructions ?Recorded ?Confirmed ?Type atorvastatin 40 mg tablet 40 mg PO DAILY 10/13/20 09/26/24 History aspirin 81 mg tablet,delayed 81 mg PO DAILY 08/07/23 09/26/24 History release metoprolol tartrate 25 mg tablet 25 mg PO BID 08/07/23 09/26/24 History pantoprazole 40 mg tablet,delayed 40 mg PO QAM #90 tabs 04/29/24 09/26/24 Rx release acetaminophen 500 mg capsule 1,000 mg (2 x 500 mg) PO Q6H PRN 09/25/24 09/26/24 Rx pain #30 caps azithromycin 250 mg tablet 250 mg PO DAILY 5 days #5 tabs 09/25/24 09/26/24 Rx losartan 25 mg tablet 25 mg PO DAILY 09/26/24 09/26/24 History Allergies Allergy/AdvReac Type Severity Reaction Status Date / Time No Known Allergies Allergy Verified 09/26/24 22:15 Vital Signs Vital Signs - 24 hr 09/29/24 15:50 09/29/24 16:00 09/29/24 16:00 Temperature 36.8 C Pulse Rate 84 89 Respiratory Rate 20 Blood Pressure 119/77 Pulse Oximetry 97 Oxygen Delivery Room Air 09/29/24 18:00 09/29/24 20:00 09/29/24 20:00 Temperature 37.2 C Pulse Rate 89 18 L 85 Respiratory Rate 78 H Blood Pressure 100/54 L Pulse Oximetry 95 Oxygen Delivery 09/29/24 20:00 09/29/24 20:42 09/29/24 22:00 Temperature Pulse Rate 86 65 Respiratory Rate Blood Pressure Pulse Oximetry Oxygen Delivery Room Air 09/29/24 23:20 09/29/24 23:20 09/30/24 00:00 Temperature 37.1 C Pulse Rate 79 79 Respiratory Rate 16 Blood Pressure 115/74 Pulse Oximetry 97 98 97 Oxygen Delivery Room Air 09/30/24 00:00 09/30/24 00:00 09/30/24 02:00 Temperature Pulse Rate 75 59 L Respiratory Rate Blood Pressure Pulse Oximetry Oxygen Delivery Room Air 09/30/24 04:00 09/30/24 04:00 09/30/24 04:00 Temperature 36.8 C Pulse Rate 73 73 Respiratory Rate 18 Blood Pressure 130/70 Pulse Oximetry 98 Oxygen Delivery Room Air 09/30/24 06:00 09/30/24 07:53 09/30/24 08:00 Temperature 37.2 C Pulse Rate 63 97 Respiratory Rate 20 Blood Pressure 140/90 Pulse Oximetry 99 Oxygen Delivery Room Air 09/30/24 08:00 09/30/24 09:54 09/30/24 10:00 Temperature Pulse Rate 78 78 78 Respiratory Rate Blood Pressure Pulse Oximetry Oxygen Delivery 09/30/24 11:27 09/30/24 12:00 09/30/24 12:00 Temperature 36.9 C Pulse Rate 78 78 Respiratory Rate 18 Blood Pressure 112/78 Pulse Oximetry 97 Oxygen Delivery Room Air 09/30/24 14:00 Temperature Pulse Rate 78 Respiratory Rate Blood Pressure Pulse Oximetry Oxygen Delivery Exam Const: General: no acute distress HENMT: Mouth: Yes moist mucous membranes Eyes: General: appearance normal, both eyes and all related structures Sclera: sclerae normal Resp: Effort & Inspection: normal respiratory effort Cardio: Rate: regular rate Rhythm: regular rhythm Heart sounds: no murmurs Skin: General skin exam: normal color Neuro: Speech: normal speech Psych: Mental Status: mental status grossly normal Affect: normal affect Results Labs and Meds 09/30/24 04:29 09/30/24 04:29 Lab results: Cardiac Enzymes 09/30/24 Range/Units 04:29 AST 28 (17-59) U/L CBC 09/30/24 Range/Units 04:29 WBC 7.3 (4.5-10.0) K/mm3 RBC 3.55 L (4.6-6.20) M/mm3 Hgb 11.2 L (14.0-18.0) g/dL Hct 33.3 L (42.0-52.0) % Plt Count 132 L (150-375) k/mm3 Lymph # (Auto) 1.44 (0.9-3.2) K/mm3 [place] # (Auto) 0.7 H (0.1-0.6) K/mm3 Eos # (Auto) 0.1 (0-0.3) K/mm3 Baso # (Auto) 0.0 (0.0-0.1) K/mm3 Comprehensive Metabolic Panel 09/30/24 Range/Units 04:29 Sodium 138 (137-145) mmol/L Potassium 3.6 (3.4-5.0) mmol/L Chloride 108 H (98-107) mmol/L Carbon Dioxide 28 (22-30) mmol/L BUN 13 (9-20) mg/dL Creatinine 0.80 (0.7-1.3) mg/dL Glucose 106 (65-110) mg/dL Calcium 8.1 L (8.4-10.2) mg/dL AST 28 (17-59) U/L ALT 25 (6-50) U/L Alkaline Phosphatase 61 (38-126) U/L Total Protein 6.0 L (6.3-8.2) g/dL Albumin 3.0 L (3.5-5.1) g/dL Intake and Output 09/29/24 09/30/24 09/30/24 23:59 07:59 15:59 Intake Total 740 375 Output Total 875 850 Balance -135 -991 Intake: Oral 740 375 Output: Urine 875 850 Patient Weight 09/30/24 23:59 Weight 108.6 kg
--- NOTE | 2024-09-30 15:49 | WPDTEECHO ---
KELLEY TransEsophageal Echocardiogram Date of procedure: 09/30/24 Procedure Type: Date Of Procedure: 09/30/2024 Brief History Of Present Illness: Patient is a pleasant 78 year old male who is referred for KELLEY to evaluate for infective endocarditis. Procedure In Detail: After verbal and written informed consent was obtained, the patient risks, benefits, and alternatives explained in detail. The patient agreed to proceed with the plan of care as outlined above.?The patient was evaluated at bedside in the Ticket Sales Supervisor.?Patient was monitored throughout the study with telemetry, oxygen saturation, end-tidal CO2 monitoring, blood pressure, heart rate, and respirations.?The posterior hypopharynx was then locally anesthetized using repeated administration of Hurricaine spray. After local anesthetic of the posterior hypopharynx was achieved and the oral bite block placed, sedation was administered by the Anesthesia team.?After confirmation of adequate sedation, the transesophageal echocardiogram probe was advanced through the oral bite block into the posterior hypopharynx and into the esophagus easily and without complication.?Multiple, multiplanar echocardiographic images were obtained in multiple standard re-projections.?Color-flow Doppler were utilized in conjunction with this study.?At the conclusion of the study, the transesophageal echocardiogram probe was removed easily and without complication. The patient tolerated the procedure well without difficulty.? Moderate Sedation / Anesthesia Administration: Sedation administered by the Anesthesia team. FINDINGS: LEFT VENTRICLE: Grossly normal LV systolic function. Marked left ventricular hypertrophy. RIGHT VENTRICLE:?Size and systolic function within normal limits. LEFT ATRIUM: Appears to be mildly enlarged. RIGHT ATRIUM: Normal size. INTERATRIAL SEPTUM: Interatrial septum appears intact. MITRAL VALVE: Mitral valve is anatomically normal with preserved leaflet excursion; no regurgitation. No vegetations. AORTIC VALVE: Well seated bioprosthetic aortic valve. No vegetations. No regurgitation. TRICUSPID VALVE: The tricuspid valve is anatomically normal with normal leaflet excursion with mild regurgitation identified.? No mobile elements identified. PULMONIC VALVE: Not well visualized. LEFT ATRIAL APPENDAGE: Well seated left atrial appendage closure device in place. No clear thrombus or vegetation on device. PERICARDIUM: The pericardium was anatomically normal without significant pericardial effusion. ? AORTA: The aortic root has been replaced. CONCLUSION: NO EVIDENCE OF INFECTIVE ENDOCARDITIS. Complications: None
[2024-10-01 03:02] VITALS: PULSE 77; O2SAT 96
[2024-10-01 06:10] VITALS: BP 130/87; PULSE 77; RESP 18; TEMP 36.7; O2SAT 95
[2024-10-01 07:00] LABS: Basophils Percent Auto 0.3 % (0.2-1.2); Eosinophils Absolute Auto 0.1 K/mm3 (0-0.3); Eosinophils Percent Auto 1.6 % (0-4.4); Hematocrit 33.4 % (42.0-52.0); Hemoglobin 11.4 g/dL (14.0-18.0); Immature Granulocyte Absolute 0.06 K/mm3 (0.00-0.031); Immature Granulocyte Percent A 0.8 % (0-0.5); Lymphocytes Absolute Auto 1.11 K/mm3 (0.9-3.2); Mean Corpuscular HGB Conc 34.1 g/dl (32-36); Mean Corpuscular Hemoglobin 31.7 pg (26-34); Mean Corpuscular Volume 92.8 fl (80-100); Mean Platelet Volume 9.2 fl (7.4-10.4); Monocytes Absolute Auto 0.8 K/mm3 (0.1-0.6); Monocytes Percent Auto 10.1 % (2.6-8.5); Neutrophils Absolute Auto 5.3 K/mm3 (1.3-6.7); Neutrophils Percent Auto 72.2 % (45.5-73.1); Platelet Count Result 150 k/mm3 (150-375); Red Cell Distribution Width 13.6 % (11.5-14.5); White Blood Count 7.4 K/mm3 (4.5-10.0)
[2024-10-01 07:12] LABS: Alanine Aminotransferase 33 U/L (6-50); Albumin Level 3.1 g/dL (3.5-5.1); Alkaline Phosphatase 88 U/L (38-126); Anion Gap 5 mmol/L (4-12); Aspartate Amino Transferase 35 U/L (17-59); Bilirubin,Total 0.7 mg/dL (0.2-1.3); Blood Urea Nitrogen 14 mg/dL (9-20); Calcium 8.1 mg/dL (8.4-10.2); Carbon Dioxide 26 mmol/L (22-30); Chloride 106 mmol/L (98-107); Estimated CRCL calculation 75 ml/min; Estimated Glomerular Filt Rate > 60; Glucose 101 mg/dL (65-110); Potassium 3.4 mmol/L (3.4-5.0); Sodium 137 mmol/L (137-145)
[2024-10-01] MEDS: PANTOPRAZOLE 40 MG TABLET PO (09:37)
[2024-10-01] MEDS: ASPIRIN 81 MG ENTERIC TABLET PO (09:37)
[2024-10-01] MEDS: SULFAMETHOXAZOLE/TRIMETHOPRIM 800/160 MG DS TABLET 2 TAB PO (09:37)
[2024-10-01] MEDS: METOPROLOL TARTRATE 25 MG TABLET PO (09:38)
[2024-10-01 13:43] VITALS: BP 126/70; PULSE 78; RESP 16; TEMP 36.4; O2SAT 97
--- NOTE | 2024-10-01 14:50 | PM.DS ---
DS: Admitting Diagnosis Discharge Date 10/01 Admitting Diagnosis weakness, positive blood cultures DS: Discharge Diagnosis Discharge Diagnosis (1) Bacteremia: Code(s): R78.81 - Bacteremia Status: Acute Assessment and Plan: - (2) Pneumonia: Code(s): J18.9 - Pneumonia, unspecified organism Status: Acute (3) HTN (hypertension): Code(s): I10 - Essential (primary) hypertension Status: Acute (4) MONIKA (obstructive sleep apnea): Code(s): G47.33 - Obstructive sleep apnea (adult) (pediatric) Status: Acute DS: Summary Hospital Course Hospital Course: 78 year old male with past medical history of hypertension, hyperlipidemia, GERD, MONIKA, and aortic aneurysm presents to the hospital after being called back for positive blood cultures on his 09/25 visit. On 09/25 patient reported to the ED for weakness,increased lethargy, and shortness of breath diagnosed with pneumonia and discharged on antibiotics. Bacteremia: Vanc started on 09/27, transitioned to oral bactrim per culture sensitivities on 09/29 repeated BC-negative 10/01, home with po antibiotics Pnemonia: Antibiotics: azithromycin ceftriaxone started on 09/26, transitioned to oral azithromycin and Augmentin -boh completed - Viral PCR: negative for Flu/COVID/RSV Essential (primary) hypertension Continue Metoprolol 25 mg BID - Holding Losartan 25 mg daily as patient was hypotensive, currently stable despite being off losartan ok to hold off and f/u with pcp if needs to be restarted Status at Discharge Functional status at discharge: independent ambulation Overall status at discharge: patient is progressing back to baseline Time Spent with Patient Time attestation: Total time spent providing and/or coordinating discharge services: Time spent: Greater than 30 minutes Exam Narrative: General: male in no acute respiratory distress who is nontoxic appearing, lying semi recumbent in bed. HEENT: Normocephalic. Atraumatic. Extraocular movement intact. Sclera clear and anicteric. No facial asymmetry. Chest: Lungs are clear to auscultation bilaterally. No wheezes or crackles. CV: Heart was regular rate and rhythm. S1/S2. No murmurs, gallops, or rubs. Abd: Abdomen was soft. Nontender. Nondistended. Positive bowel sounds. No organomegaly or masses. Ext: No clubbing, cyanosis, or edema. 2+ DP pulses bilaterally. Neuro: Speech is clear. Const: General: cooperative, comfortable, no acute distress, well developed, alert, awake, well groomed, overweight and other (well appearing) Nutritional Appearance: overweight Orientation/consciousness: patient oriented x3 HENMT: Head: normal to inspection, normocephalic and atraumatic Ears: hearing grossly normal bilaterally Face/Nose/Sinus: normal facial exam Face and sinus: normal facial exam Eyes: General: appearance normal, both eyes and all related structures Pupils: Equal, round and reactive pupils present EOM: EOMs intact bilaterally Neck: Neck: full ROM, no lymphadenopathy and no JVD Thyroid: thyroid normal Lymphatic: no lymphadenopathy noted Resp: Effort & Inspection: normal respiratory effort and able to speak in complete sentences Auscultation: clear to auscultation bilaterally Cardio: Jugular venous distension: no JVD Rate: regular rate Rhythm: regular rhythm Heart sounds: S1 normal heart sound present and S2 normal heart sound present : General: Yes deferred Skin: Rashes: no rashes Wounds: no wounds Neuro: General: patient oriented x3 and CN's II-XI intact bilaterally Cranial nerves: Yes CN's II-XII intact bilaterally and Yes Equal, round and reactive pupils present Cognition (Neuro): normal cognition Speech: normal speech Gait exam (Neuro): Normal gait present Motor exam (neuro): 5/5 motor strength present throughout Extrem: General: normal to inspection, full ROM, no joint enlargement and no pedal edema DS: Data Data Completed and Pending Labs on day of discharge: Labs from last 24 hours 10/01/24 06:35 WBC 7.4 RBC 3.60 L Hgb 11.4 L Hct 33.4 L MCV 92.8 MCH 31.7 MCHC 34.1 RDW 13.6 Plt Count 150 MPV 9.2 Immature Gran % (Auto) 0.8 H Neut % (Auto) 72.2 Lymph % (Auto) 15.0 L [place] % (Auto) 10.1 H Eos % (Auto) 1.6 Baso % (Auto) 0.3 Lymph # (Auto) 1.11 [place] # (Auto) 0.8 H Eos # (Auto) 0.1 Baso # (Auto) 0.0 Abs Immat Gran (auto) 0.06 H Absolute Neuts (auto) 5.3 Absolute Nucleated RBC 0.000 Nucleated RBC % 0.0 Sodium 137 Potassium 3.4 Chloride 106 Carbon Dioxide 26 Anion Gap 5 BUN 14 Creatinine 0.90 Estim Creat Clear Calc 75 Estimated GFR > 60 Glucose 101 Calcium 8.1 L Total Bilirubin 0.7 AST 35 ALT 33 Alkaline Phosphatase 88 Total Protein 6.0 L Albumin 3.1 L Preliminary micro results at discharge 09/29/24 10:16 Blood Culture - Preliminary Blood 09/29/24 10:16 Blood Culture - Preliminary Blood Discharge Plan Discharge Attending physician on discharge: Brayden Townsend Consulting providers: Joceline Woodard Discharging Clinician: Sofia Pérez Patient Disposition: Home, Self-Care Activity: may shower Diet: as tolerated and heart healthy Discharge Instructions: Your repeated blood cultures were negative. you completed therapy for pneumoia. for uti- please finish bactrum- 4 more days. Your KELLEY: NO EVIDENCE OF INFECTIVE ENDOCARDITIS. please f/u with cardiology and pcp as advised We didnot give you losartan as your BP was started. You can hold it and monitor your BP daily- keep log. Bring that log to your pcp and for review. PCP will instruct you if losartan needs to be restarted. Patient Instructions: Antibiotic Form, MRSA (Methicillin-Resistant Staphylococcus Aureus) (DC), Pneumonia (DC), Bacteremia (DC) Patient Language: Belarusian Stand Alone Forms: General Discharge Information Follow-up/Referrals: Gabby Li, INDUST[employer] COMMERCIAL GROUNDSKEEPER [Primary Care Provider] - 2 Weeks Discharge Medications: New sulfamethoxazole-trimethoprim 800-160 mg Tablet 2 tab PO Q12HR Qty: 8 0RF Continued atorvastatin 40 mg tablet 40 mg PO DAILY aspirin 81 mg tablet,delayed release (DR/EC) 81 mg PO DAILY metoprolol tartrate 25 mg tablet 25 mg PO BID acetaminophen 500 mg capsule 1,000 mg PO Q6H PRN (Reason: pain) Qty: 30 0RF pantoprazole 40 mg tablet,delayed release (DR/EC) 40 mg PO QAM Qty: 90 1RF Held losartan 25 mg tablet 25 mg PO DAILY Hold Instructions: Resume on 10/15/24. restart if directed per pcp Discontinued azithromycin 250 mg tablet 250 mg PO DAILY 5 Days Qty: 5 0RF Rx Instructions: start on day 2 of therapy Date of admission: 09/27/24 08:50 Primary Care Provider: Gabby Li Admitting Provider: Adonay Presley Attending physician on admission: Joceline Woodard Condition: Stable Quality VTE Prophylaxis VTE prophylaxis: mechanical ordered Hospitalist MIPS Heart Failure (Exclusion) Patient has history of Heart Transplant or Left Ventricular Assistive Device?: No IF YES, STOP HERE Heart Failure (Qualifier) Patient has current or prior documentation of LVEF less than or equal to 40%, or mod/servere depressed LVSF?: No IF NO, STOP HERE
== END 2024-10-01 15:30 | disposition home or self-care (01) | DRG 194 ==
LOC: ANHED 15:55 → ANHIMU 20:33 → ANH3MEDSUR 10-01 14:57 → ANHIMU 10-02 13:47
PROVIDERS: Internal Medicine; Student in an Organized Health Care Education/Training Program; Admitting Provider Internal Medicine; Emergency Provider Emergency Medicine; PCP Nurse Practitioner Family; Visit Provider Nurse Practitioner
PROC: B24BZZ4 Ultrasonography of Heart with Aorta, Transesophageal (ICD-10-PCS; CPT 93312; principal; 2024-09-30 14:30)
DX: J18.9 Pneumonia, unspecified organism (principal); R78.81 Bacteremia; A49.01 Methicillin susceptible Staphylococcus aureus infection, unspecified site; K21.9 Gastro-esophageal reflux disease without esophagitis; I10 Essential (primary) hypertension; G47.33 Obstructive sleep apnea (adult) (pediatric); E78.5 Hyperlipidemia, unspecified; M19.90 Unspecified osteoarthritis, unspecified site
CPT/HCPCS: 36415; 70450; 70496; 71046; 80053; 80143; 80179; 80202; 80307; 81001; 82077; 82550; 83010; 83605; 83615; 84439; 84443; 84480; 84484; 85025; 85046; 85055; 85610; 85730; 87040; 87181; 87637; 93005; 93306; 93312; 93320; 93325; 96361; 96365; 96367; 96375; 99284; 99285; A9270; G0378; J0456; J0696; J3370; J7030; J7040; Q9967

== ENCOUNTER 2024-10-06 18:39 | Emergency (ER) | payer MEDICARE, OTHER, SELFPAY ==
--- NOTE | ~2024-10-06 | XR_ITS ---
EXAMINATION: XR chest 2V Exam Date/Time: 10/06/2024 20:20 [employer] HISTORY: weakness, FEVER, COUGH Comparison: 09/25/2024. RESULT: Lines, tubes, and devices: Sternal closure devices. Cardiac valve replacement. Lungs and pleura: Senescent/emphysematous change. Atelectasis/scar in the left upper lung and lung b ases. Cardiomediastinal silhouette: Stable. Other: No acute osseous or upper abdominal finding. IMPRESSION: No acute cardiopulmonary process. Reviewed, dictated and finalized at location K. [employer]
--- NOTE | ~2024-10-06 | CT_ITS ---
EXAMINATION: CTA chest PE protocol DATE: 10/07/2024 00:30 INDICATION: Dyspnea. Cough. TECHNIQUE: Computed tomography angiography (CTA) of the chest was performed with 100 mL Omnipaque-350 intravenous contrast timed to evaluate the pulmonary arteries. Coronal maximum intensity projection 3D-reconstructions were created by the technologist. Automated exposure control and iterative reconst ruction technique were employed. The dose-length product was 719.32 mGy-cm. COMPARISON: Chest CT 01/16/2017 FINDINGS: There is mild atelectasis bilaterally. There are calcified bilateral pleural plaques, which may be seen with asbestos exposure. There is a 4 mm nodule in right lung upper lobe without change, likely benign. No pleural effusion. The heart size is normal. There is a closure device at left atria l appendage. There are changes of aortic valve replacement. There is fat stranding and fluid around t he ascending aorta. There is a small pericardial effusion. Calcified bilateral hilar lymph nodes are consistent with old granulomatous disease. There is severe cervical spondylosis and mild thoracic spo ndylosis. There is mild chronic height loss of multiple vertebral bodies. IMPRESSION: 1. Changes of aortic valve replacement with fat stranding and fluid around the ascending aorta. 2. Small pericardial effusion. Reviewed, dictated and finalized at location [facility]
[2024-10-06 19:28] VITALS: BP 133/76; PULSE 88; RESP 14; TEMP 36.6; O2SAT 98
--- NOTE | 2024-10-06 20:03 | ECG_ITS ---
Test Date: 2024-10-06 21:11:29 Measurements Intervals [place] Rate: 74 P: 0 LA: 0 QRS: -31 QRSD: 122 T: 10 QT: 406 QTc: 451 Interpretive Statements SINUS ARRHYTHMIA first degree block artifact LEFT ANTERIOR FASCICULAR BLOCK ABNORMAL RHYTHM ECG Compared to ECG 09/30/2024 10:38:43 no changes Electronically Signed On 10-07-2024 14:57:08 BISCUIT MACHINE OPERATOR by Magalis Cervantes M.D.
[2024-10-06 22:41] LABS: Basophils Percent Auto 0.4 % (0.2-1.2); Eosinophils Absolute Auto 0.1 K/mm3 (0-0.3); Eosinophils Percent Auto 1.5 % (0-4.4); Hemoglobin 11.4 g/dL (14.0-18.0); Immature Granulocyte Absolute 0.13 K/mm3 (0.00-0.031); Immature Granulocyte Percent A 1.7 % (0-0.5); Lymphocytes Absolute Auto 1.43 K/mm3 (0.9-3.2); Lymphocytes Percent Auto 18.2 % (18.3-44.2); Mean Corpuscular HGB Conc 33.5 g/dl (32-36); Mean Corpuscular Hemoglobin 31.3 pg (26-34); Mean Corpuscular Volume 93.4 fl (80-100); Mean Platelet Volume 8.9 fl (7.4-10.4); Monocytes Absolute Auto 0.5 K/mm3 (0.1-0.6); Monocytes Percent Auto 6.4 % (2.6-8.5); Neutrophils Absolute Auto 5.6 K/mm3 (1.3-6.7); Neutrophils Percent Auto 71.8 % (45.5-73.1); Platelet Count Result 258 k/mm3 (150-375); Red Blood Count 3.64 M/mm3 (4.6-6.20); Red Cell Distribution Width 13.4 % (11.5-14.5); White Blood Count 7.9 K/mm3 (4.5-10.0)
--- NOTE | 2024-10-06 22:48 | ED.WEAKNESS ---
HPI - Weakness General Chief complaint: Weakness <BAY Guidry Last Filed: 10/07/24 02:43> Stated complaint: weakness, sweats and chills <Lamar Martinez PA-C - Last Filed: 10/07/24 02:43> Time Seen by Provider: 10/06/24 21:37 <Lamar Martinez PA-C - Last Filed: 10/07/24 02:43> History of Present Illness HPI Narrative: 78-year-old male with history of hypertension, hyperlipidemia, MONIKA presents to the emergency department with family at bedside for subjective fevers, chills and sweating for the past couple of days. Patient was evaluated in our ED on 09/25/2024 was found to have bilateral pneumonia. He was advised admission, however left with family after not wanting to stay in the hospital. Patient was called the following day advised to come to the ED due to positive blood cultures. He was admitted at that time and discharged home on 10/01 after admission for bacteremia growing MRSA as well as pneumonia. Patient was discharged home with Bactrim which he states he completed. He states he is feeling somewhat better, however began worsened again a couple of days ago. He reports extreme diaphoresis and states he saturated his clothes and sheets while sleeping last night. He also reports persistent productive cough with shortness of breath. He denies chest pain, abdominal pain, nausea vomiting, diarrhea, rash, dysuria or hematuria. <Lamar Martinez PA-C - Last Filed: 10/07/24 02:43> Related Data Home medications: Home Medications ?Medication ?Instructions ?Recorded ?Confirmed ?Last Taken ?Type atorvastatin 40 mg tablet 40 mg PO DAILY 10/13/20 09/26/24 09/26/24 History aspirin 81 mg tablet,delayed 81 mg PO DAILY 08/07/23 09/26/24 09/26/24 History release metoprolol tartrate 25 mg tablet 25 mg PO BID 08/07/23 09/26/24 09/25/24 History losartan 25 mg tablet 25 mg PO DAILY 09/26/24 09/26/24 09/26/24 History <BAY Guidry Last Filed: 10/07/24 02:43> Allergies/Adverse reactions: Allergies Allergy/AdvReac Type Severity Reaction Status Date / Time No Known Allergies Allergy Verified 09/26/24 22:15 <Lamar Martinez PA-C - Last Filed: 10/07/24 02:43> Review of Systems Review of Systems: All systems reviewed & are unremarkable except as noted in HPI and below <Lamar Martinez PA-C - Last Filed: 10/07/24 02:43> [facility] Past Medical History Medical History: Medical History Anemia GERD (gastroesophageal reflux disease) BMI 33.0-33.9,adult Encounter to establish care Elevated glucose Arthritis History of bleeding ulcers Hx of aortic aneurysm MONIKA (obstructive sleep apnea) Obesity HTN (hypertension) HLD (hyperlipidemia) <Lamar Martinez PA-C - Last Filed: 10/07/24 02:43> Surgical History Surgical History: Surgical History History of open heart surgery <Lamar Martinez PA-C - Last Filed: 10/07/24 02:43> Family History Family History: Family History Sibling Patient's brother is in good health Father Heart disease Mother Hypertension Depression <Lamar Martinez PA-C - Last Filed: 10/07/24 02:43> Social History Social History: Social History Smoking status: Never smoker Alcohol intake: current Drinks per week: 1 Alcohol use details: 2-3 Beers a month Substance use: never Do You Feel Safe in your Home?: Yes Lack of Transportation: No Lack of Food: Never True Current Housing: I Have Housing Concerned About Future Housing: No Difficulty Paying Gas/Electric Bills: No Difficulty Paying for Meds: No Currently Unemployed: No Education: Decline to Answer Difficulty w/ Childcare or Family Care: No Spiritual care concerns: Yes (jainism) <Lamar Martinez PA-C - Last Filed: 10/07/24 02:43> Exam Narrative: GENERAL: Well-appearing, well-nourished, and in no acute distress. HEAD: Normocephalic, atraumatic. EYES: PERRLA and EOMI. ENT: Nares clear, no rhinorrhea or epistaxis. Mucous membranes moist. Bilateral TMs are wilkes nonbulging with normal canals. Posterior pharynx unremarkable NECK: Supple. CHEST: Clear to auscultation. No respiratory distress. HEART: Regular rate and rhythm. No murmur heard. Normal peripheral pulses. ABDOMEN: Soft, nontender, nondistended, normal active bowel sounds. EXTREMITIES: Normal range of motion. No edema. SKIN: Warm, dry, no rash. NEURO: No focal deficits. Alert and oriented x3 <Lamar Martinez PA-C - Last Filed: 10/07/24 02:43> Course Vital Signs Vital signs: Vital Signs Temperature 97.9 F 10/06/24 19:28 Pulse Rate 88 10/06/24 19:28 Respiratory Rate 14 10/06/24 19:28 Blood Pressure 133/76 10/06/24 19:28 Pulse Oximetry 98 10/06/24 19:28 Oxygen Delivery Room Air 10/06/24 19:28 Temperature 97.9 F 10/06/24 19:28 Pulse Rate 77 10/07/24 00:10 Respiratory Rate 14 10/07/24 00:10 Blood Pressure 116/83 10/07/24 00:10 Pulse Oximetry 98 10/07/24 00:10 Oxygen Delivery Room Air 10/06/24 19:28 <Lamar Martinez PA-C - Last Filed: 10/07/24 02:43> Vital Signs Temperature 97.9 F 10/06/24 19:28 Pulse Rate 88 10/06/24 19:28 Respiratory Rate 14 10/06/24 19:28 Blood Pressure 133/76 10/06/24 19:28 Pulse Oximetry 98 10/06/24 19:28 Oxygen Delivery Room Air 10/06/24 19:28 Temperature 97.9 F 10/06/24 19:28 Pulse Rate 77 10/07/24 00:10 Respiratory Rate 14 10/07/24 00:10 Blood Pressure 116/83 10/07/24 00:10 Pulse Oximetry 98 10/07/24 00:10 Oxygen Delivery Room Air 10/06/24 19:28 <Zak Austin MD - Last Filed: 10/07/24 04:45> MDM - Weakness MDM Narrative Medical decision making narrative: 78-year-old male with recent admission for MRSA bacteremia and pneumonia presents to the emergency department for subjective fever, chills, diaphoresis and persistent cough. Triage vitals are stable. Patient is resting comfortably in the exam bed is pleasant and conversational. Family is at bedside. Exam is unremarkable. Lab work shows no leukocytosis, hemoglobin stable at 11.4. Chemistries are unremarkable. Urinalysis without infection. Viral swabs are negative. Lactic acid within normal limits. Chest x-ray shows no acute cardiopulmonary findings. BNP within normal limits once age adjusted. ESR and CRP are elevated at 137 and 5.6 respectively, no prior for comparison. CTA chest PE obtained to evaluate for PE given recent hospitalizations and complaint of shortness of breath, also to evaluate for occult pneumonia. Pending results at time of sign-out to Dr. Austin. Vitals remain stable at time of sign-out. Patient resting comfortably in exam bed. <Lamar Martinez PA-C - Last Filed: 10/07/24 02:43> 78-year-old male with recent admission for MRSA bacteremia and pneumonia presents to the emergency department for subjective fever, chills, diaphoresis and persistent cough. Triage vitals are stable. Patient is resting comfortably in the exam bed is pleasant and conversational. Family is at bedside. Exam is unremarkable. Lab work shows no leukocytosis, hemoglobin stable at 11.4. Chemistries are unremarkable. Urinalysis without infection. Viral swabs are negative. Lactic acid within normal limits. Chest x-ray shows no acute cardiopulmonary findings. BNP within normal limits once age adjusted. ESR and CRP are elevated at 137 and 5.6 respectively, no prior for comparison. CTA chest PE obtained to evaluate for PE given recent hospitalizations and complaint of shortness of breath, also to evaluate for occult pneumonia. Pending results at time of sign-out to Dr. Austin. Vitals remain stable at time of sign-out. Patient resting comfortably in exam bed. Oseasbashir: Patient was signed out to me pending CT angio chest with IV contrast. CT was obtained and interpreted by me revealing no evidence of pulmonary emboli, clear lungs. Patient was informed of these findings at bedside. He was informed that sometimes post viral/post pneumonia cough can linger. I did offer to prescribe him some Tessalon Perles, however, states that he has tried those in the past and they do not work. Patient was recommended to continue using [id number] cough suppressant to follow-up with his family doctor within the next 3-5 days. Patient is happy with this plan. He is resting comfortably, satting 98% on room air. He was discharged in stable condition. <Zak Austin MD - Last Filed: 10/07/24 04:45> Differential Diagnosis Differential diagnosis: Likely anemia, hypoglycemia, sepsis and dehydration <Zak Austin MD - Last Filed: 10/07/24 04:45> Medical Records Attestation: I reviewed the patient's medical records. <Zak Austin MD - Last Filed: 10/07/24 04:45> Lab Data Attestation: I reviewed the patient's lab results. <Zak Austin MD - Last Filed: 10/07/24 04:45> Result diagrams: 10/06/24 22:35 10/06/24 22:35 <Lamar Martinez PA-C - Last Filed: 10/07/24 02:43> Labs: Lab Results 10/06/24 10/06/24 10/06/24 Range/Units 22:35 22:35 22:46 WBC 7.9 (4.5-10.0) K/mm3 RBC 3.64 L (4.6-6.20) M/mm3 Hgb 11.4 L (14.0-18.0) g/dL Hct 34.0 L (42.0-52.0) % MCV 93.4 (80-100) fl MCH 31.3 (26-34) pg MCHC 33.5 (32-36) g/dl RDW 13.4 (11.5-14.5) % Plt Count 258 D (150-375) k/mm3 MPV 8.9 (7.4-10.4) fl Immature Gran % (Auto) 1.7 H (0-0.5) % Neut % (Auto) 71.8 (45.5-73.1) % Lymph % (Auto) 18.2 L (18.3-44.2) % [place] % (Auto) 6.4 (2.6-8.5) % Eos % (Auto) 1.5 (0-4.4) % Baso % (Auto) 0.4 (0.2-1.2) % Lymph # (Auto) 1.43 (0.9-3.2) K/mm3 [place] # (Auto) 0.5 (0.1-0.6) K/mm3 Eos # (Auto) 0.1 (0-0.3) K/mm3 Baso # (Auto) 0.0 (0.0-0.1) K/mm3 Abs Immat Gran (auto) 0.13 H (0.00-0.031) K/mm3 Absolute Neuts (auto) 5.6 (1.3-6.7) K/mm3 Absolute Nucleated RBC 0.000 (0.0-0.012) K/mm3 Nucleated RBC % 0.0 (0.0-0.2) % ESR 137 H (0-20) mm/hr Sodium 136 L (137-145) mmol/L Potassium 4.0 (3.4-5.0) mmol/L Chloride 107 (98-107) mmol/L Carbon Dioxide 27 (22-30) mmol/L Anion Gap 2 L (4-12) mmol/L BUN 17 (9-20) mg/dL Creatinine 0.80 (0.7-1.3) mg/dL Estim Creat Clear Calc 84 ml/min Estimated GFR > 60 (59 - ) Glucose 153 H (65-110) mg/dL Lactic Acid 1.2 (0.7-2.0) mmol/L Calcium 8.7 (8.4-10.2) mg/dL Total Bilirubin 0.5 (0.2-1.3) mg/dL AST 40 (17-59) U/L ALT 48 (6-50) U/L Alkaline Phosphatase 98 (38-126) U/L C-Reactive Protein Cancelled 5.6 H NT-Pro-B Natriuret Pep 710 H (19.9-100) pg/mL Total Protein 7.0 (6.3-8.2) g/dL Albumin 3.6 (3.5-5.1) g/dL Urine Color Yellow (Yellow) Urine Appearance Clear (Clear) Urine pH 5.5 (5.0-9.0) Ur Specific [place] 1.019 (1.001-1.035) Urine Protein Negative (Negative) mg/dL Urine Glucose (UA) Negative (Negative) mg/dL Urine Ketones Negative (Negative) mg/dL Ur Blood (Man) Negative (Negative) Urine Nitrate Negative (Negative) Urine Bilirubin Negative (Negative) Urine Urobilinogen 0.2 (<2.0) mg/dL Leukocyte Esterase Rfl Negative (Negative) JOHNATHAN/UL Influenza A (RT-PCR) Negative (Negative) Influenza B (RT-PCR) Negative (Negative) RSV (RT-PCR) Negative (Negative) SARS-CoV-2 RNA (RT-PCR) Negative (Negative) <Lamar Martinez PA-C - Last Filed: 10/07/24 02:43> Lab Results 10/06/24 10/06/24 10/06/24 Range/Units 22:35 22:35 22:46 WBC 7.9 (4.5-10.0) K/mm3 RBC 3.64 L (4.6-6.20) M/mm3 Hgb 11.4 L (14.0-18.0) g/dL Hct 34.0 L (42.0-52.0) % MCV 93.4 (80-100) fl MCH 31.3 (26-34) pg MCHC 33.5 (32-36) g/dl RDW 13.4 (11.5-14.5) % Plt Count 258 D (150-375) k/mm3 MPV 8.9 (7.4-10.4) fl Immature Gran % (Auto) 1.7 H (0-0.5) % Neut % (Auto) 71.8 (45.5-73.1) % Lymph % (Auto) 18.2 L (18.3-44.2) % [place] % (Auto) 6.4 (2.6-8.5) % Eos % (Auto) 1.5 (0-4.4) % Baso % (Auto) 0.4 (0.2-1.2) % Lymph # (Auto) 1.43 (0.9-3.2) K/mm3 [place] # (Auto) 0.5 (0.1-0.6) K/mm3 Eos # (Auto) 0.1 (0-0.3) K/mm3 Baso # (Auto) 0.0 (0.0-0.1) K/mm3 Abs Immat Gran (auto) 0.13 H (0.00-0.031) K/mm3 Absolute Neuts (auto) 5.6 (1.3-6.7) K/mm3 Absolute Nucleated RBC 0.000 (0.0-0.012) K/mm3 Nucleated RBC % 0.0 (0.0-0.2) % ESR 137 H (0-20) mm/hr Sodium 136 L (137-145) mmol/L Potassium 4.0 (3.4-5.0) mmol/L Chloride 107 (98-107) mmol/L Carbon Dioxide 27 (22-30) mmol/L Anion Gap 2 L (4-12) mmol/L BUN 17 (9-20) mg/dL Creatinine 0.80 (0.7-1.3) mg/dL Estim Creat Clear Calc 84 ml/min Estimated GFR > 60 (59 - ) Glucose 153 H (65-110) mg/dL Lactic Acid 1.2 (0.7-2.0) mmol/L Calcium 8.7 (8.4-10.2) mg/dL Total Bilirubin 0.5 (0.2-1.3) mg/dL AST 40 (17-59) U/L ALT 48 (6-50) U/L Alkaline Phosphatase 98 (38-126) U/L C-Reactive Protein Cancelled 5.6 H NT-Pro-B Natriuret Pep 710 H (19.9-100) pg/mL Total Protein 7.0 (6.3-8.2) g/dL Albumin 3.6 (3.5-5.1) g/dL Urine Color Yellow (Yellow) Urine Appearance Clear (Clear) Urine pH 5.5 (5.0-9.0) Ur Specific [place] 1.019 (1.001-1.035) Urine Protein Negative (Negative) mg/dL Urine Glucose (UA) Negative (Negative) mg/dL Urine Ketones Negative (Negative) mg/dL Ur Blood (Man) Negative (Negative) Urine Nitrate Negative (Negative) Urine Bilirubin Negative (Negative) Urine Urobilinogen 0.2 (<2.0) mg/dL Leukocyte Esterase Rfl Negative (Negative) JOHNATHAN/UL Influenza A (RT-PCR) Negative (Negative) Influenza B (RT-PCR) Negative (Negative) RSV (RT-PCR) Negative (Negative) SARS-CoV-2 RNA (RT-PCR) Negative (Negative) <Zak Austin MD - Last Filed: 10/07/24 04:45> Discharge Plan Discharge Clinical Impression: Cough, Shortness of breath <Lamar Martinez PA-C - Last Filed: 10/07/24 02:43> Patient Disposition: Home, Self-Care <Lamar Martinez PA-C - Last Filed: 10/07/24 02:43> Condition: Improved <Lamar Martinez PA-C - Last Filed: 10/07/24 02:43> Instructions: Antibiotic Form, Acute Cough (ED) <Lamar Martinez PA-C - Last Filed: 10/07/24 02:43> Additional Instructions: Please follow-up with your family doctor within the next 3-5 days. Use [id number] cough suppressant as needed. Return to the ED if any new or worsening symptoms develop. <Lamar Martinez PA-C - Last Filed: 10/07/24 02:43> Patient Language: Irish <Lamar Martinez PA-C - Last Filed: 10/07/24 02:43> Prescriptions: No Action atorvastatin 40 mg tablet 40 mg PO DAILY aspirin 81 mg tablet,delayed release (DR/EC) 81 mg PO DAILY metoprolol tartrate 25 mg tablet 25 mg PO BID acetaminophen 500 mg capsule 1,000 mg PO Q6H PRN (Reason: pain) Qty: 30 0RF losartan 25 mg tablet 25 mg PO DAILY sulfamethoxazole-trimethoprim 800-160 mg Tablet 2 tab PO Q12HR Qty: 8 0RF pantoprazole 40 mg tablet,delayed release (DR/EC) 40 mg PO QAM Qty: 90 1RF <Lamar Martinez PA-C - Last Filed: 10/07/24 02:43> Follow-up/Referrals: Li,Gabby, [employer] INS[employer] SPECIALIST [Primary Care Provider] - 3 Days <Lamar Martinez PA-C - Last Filed: 10/07/24 02:43> Time of Disposition: 04:44 <Lamar Martinez PA-C - Last Filed: 10/07/24 02:43> 04:44 <Zak Austin MD - Last Filed: 10/07/24 04:45>
[2024-10-06 22:57] LABS: Add Urine Microscopic? NO; Appearance Urine Clear (Clear); Bilirubin Urine Negative (Negative); Blood Urine Negative (Negative); Color Urine Yellow (Yellow); Glucose Urine UA Negative (Negative); Ketones Urine Negative (Negative); Leukocyte Esterase Ur Negative LEU/UL (Negative); Nitrate Urine Negative (Negative); Protein Urine Negative (Negative); Specific Grav Ur 1.019 (1.001-1.035); Urobilinogen Urine 0.2 mg/dL (<2.0); pH Urine 5.5 (5.0-9.0)
[2024-10-06 22:57] LABS: Alanine Aminotransferase 48 U/L (6-50); Albumin Level 3.6 g/dL (3.5-5.1); Alkaline Phosphatase 98 U/L (38-126); Anion Gap 2 mmol/L (4-12); Aspartate Amino Transferase 40 U/L (17-59); Bilirubin,Total 0.5 mg/dL (0.2-1.3); Blood Urea Nitrogen 17 mg/dL (9-20); Calcium 8.7 mg/dL (8.4-10.2); Carbon Dioxide 27 mmol/L (22-30); Chloride 107 mmol/L (98-107); Estimated CRCL calculation 84 ml/min; Estimated Glomerular Filt Rate > 60; Glucose 153 mg/dL (65-110); Sodium 136 mmol/L (137-145)
[2024-10-06 23:06] LABS: Lactic Acid Reflex 1.2 mmol/L (0.7-2.0)
[2024-10-06 23:20] LABS: CRP 5.6 mg/dL (<1.0)
[2024-10-06 23:22] LABS: NT Pro B Type Natriuretic Pept 710 pg/mL (19.9-100)
[2024-10-06 23:28] LABS: Erythrocyte Sedimentation Rate 137 mm/hr (0-20)
[2024-10-06 23:33] LABS: Influenza A QL RT-PCR Negative (Negative); Influenza B QL RT-PCR Negative (Negative); RSV RNA, RT-PCR Negative (Negative); SARS-CoV-2 RNA PCR Negative (Negative)
[2024-10-07 00:10] VITALS: BP 116/83; PULSE 77; RESP 14; O2SAT 98
[2024-10-07 02:49] VITALS: BP 121/69; PULSE 82; RESP 14; O2SAT 100
[2024-10-07 03:55] VITALS: BP 115/69; PULSE 81; RESP 13; O2SAT 100
== END 2024-10-07 04:53 | disposition home or self-care (01) ==
PROVIDERS: Physician Assistant; Emergency Provider Emergency Medicine; PCP Nurse Practitioner Family
DX: R05.9 Cough, unspecified (principal); R06.02 Shortness of breath; I10 Essential (primary) hypertension; E78.5 Hyperlipidemia, unspecified; G47.33 Obstructive sleep apnea (adult) (pediatric); K21.9 Gastro-esophageal reflux disease without esophagitis; Z79.82 Long term (current) use of aspirin; Z20.822 Contact with and (suspected) exposure to COVID-19; Z87.01 Personal history of pneumonia (recurrent)
CPT/HCPCS: 36415; 71046; 71275; 80053; 81003; 83605; 83880; 85025; 85652; 86140; 87040; 87637; 93005; 99284; Q9967

== ENCOUNTER 2025-09-03 08:10 | Outpatient (CLI) | payer MEDICARE, SELFPAY ==
[2025-09-03 08:51] LABS: Add Urine Microscopic? YES; Appearance Urine Clear (Clear); Glucose Urine UA Negative (Negative); Leukocyte Esterase Ur Trace LEU/UL (Negative); Nitrate Urine Negative (Negative); Non Pathogenic Casts 0-2; Specific Grav Ur 1.021 (1.001-1.035)
[2025-09-03 08:57] LABS: Hematocrit 33.1 % (42.0-52.0); Hemoglobin 10.6 g/dL (14.0-18.0); Immature Granulocyte Percent A 0.4 % (0-0.5); Iron 50 ug/dL (49-181); Lymphocytes Absolute Auto 0.74 K/mm3 (0.9-3.2); Mean Corpuscular HGB Conc 32.0 g/dl (32-36); Mean Corpuscular Hemoglobin 28.9 pg (26-34); Mean Corpuscular Volume 90.2 fl (80-100); Nucleated Red Blood Cells Absolute Auto 0.000 K/mm3 (0.0-0.012); Nucleated Red Blood Cells Perc 0.0 % (0.0-0.2); Platelet Count Result 174 k/mm3 (150-375); Red Blood Count 3.67 M/mm3 (4.6-6.20); White Blood Count 5.1 K/mm3 (4.5-10.0)
[2025-09-03 08:58] LABS: Alanine Aminotransferase 18 U/L (6-50); Albumin Level 4.0 g/dL (3.5-5.1); Alkaline Phosphatase 67 U/L (38-126); Anion Gap 8 mmol/L (4-12); Aspartate Amino Transferase 25 U/L (17-59); Bilirubin,Total 1.1 mg/dL (0.2-1.3); Blood Urea Nitrogen 19 mg/dL (9-20); Calcium 8.6 mg/dL (8.4-10.2); Carbon Dioxide 24 mmol/L (22-30); Chloride 102 mmol/L (98-107); Cholesterol 83 mg/dL (0-200); Estimated Glomerular Filt Rate > 60; Glucose 103 mg/dL (65-110); HDL Direct 33 mg/dL; Potassium 3.9 mmol/L (3.4-5.0); Sodium 134 mmol/L (137-145); Total Protein 7.1 g/dL (6.3-8.2); Triglycerides 103 mg/dL (<150)
[2025-09-03 09:08] LABS: Percent Iron Saturation 15 % (20-50)
[2025-09-03 09:28] LABS: Prostate Specific Antigen 1.5 ng/mL (< OR = 4.0)
[2025-09-03 09:29] LABS: Thyroid Stimulating Hormone Reflex 2.210 uIU/mL (0.465-4.68)
[2025-09-03 09:33] LABS: Ferritin 34.30 ng/mL (11.1-264)
[2025-09-03 10:23] LABS: Hemoglobin A1C 5.3 % (<5.7)
== END 2025-09-03 08:11 | disposition home or self-care (01) ==
LOC: ANHLAB 08:16
PROVIDERS: PCP Nurse Practitioner Family; Visit Provider Nurse Practitioner Family
DX: Z12.5 Encounter for screening for malignant neoplasm of prostate (principal); Z13.0 Encounter for screening for diseases of the blood and blood-forming organs and certain disorders involving the immune mechanism; I10 Essential (primary) hypertension; E78.5 Hyperlipidemia, unspecified; D64.9 Anemia, unspecified; R73.09 Other abnormal glucose
CPT/HCPCS: 36415; 80053; 80061; 81001; 82728; 83036; 83540; 83550; 84153; 84443; 85025; G0103